=== PATIENT | male | born 1960 | race Caucasian/White ===

== ENCOUNTER 2023-01-31 08:33 | Inpatient (IN) | payer OTHER, SELFPAY ==
[2023-01-31] VITALS (25 sets, daily range): BP systolic 132–168; BP diastolic 78–136; PULSE 55–121; RESP 17–32; TEMP 36.6; O2SAT 81–100; BMI 17.6
--- NOTE | 2023-01-31 08:48 | XR_ITS ---
The [address] [address] Patient Name: BROOKLYNN STEPHEN MRN: [id number] date: 1960 Sex: M Assigned Patient Location: ER Current Patient Location: Accession/Order Number: [id number] Exam Date: 01/31/2023 08:52 Report Date: 01/31/2023 09:08 At the request of: MARCEL ARDON Procedure: XR chest 1V EXAMINATION: CHEST RADIOGRAPH (PORTABLE SINGLE VIEW AP) Exam Date/Time: 01/31/2023 8:52 AM EDT Clinical History: dyspnea Comparison: 12/08/2022 RESULT: Lines, tubes, and devices: None. Lungs and pleura: Patchy airspace opacities in the lung bases bilaterally, consistent with atelectasis or pneumonic infiltrates. No pneumothorax. No pleural effusion. Cardiomediastinal silhouette: Stable cardiomediastinal silhouette. No significant atherosclerotic calcification. Other: No acute osseous process. IMPRESSION: Bibasilar airspace opacities, concerning for atelectasis or pneumonic infiltrates. Electronically authenticated by: MARCELA ORTEGA Date: 01/31/2023 09:08
--- NOTE | 2023-01-31 08:48 | ECG_ITS ---
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
[2023-01-31] MEDS: IPRATROPIUM/ALBUTEROL SULFATE 3 ML AMPUL.NEB IH ×3 (08:59→22:29)
--- NOTE | 2023-01-31 09:04 | ED.SOB1 ---
HPI - SOB/Dyspnea General Chief Complaint: Shortness of Breath/Dyspnea Stated Complaint: SHORTNESS OF BREATH Time Seen by Provider: 01/31/23 08:41 Source: patient Source comment: SOB a few days / no chest pain / trying to get pop at machine / trouble talking to staff due to trying to breath Mode of arrival: Wheelchair Limitations: physical limitation History of Present Illness HPI Narrative: patient very limited historian due to dyspnea. However subsequently admitted having shortness of breath for several days getting worse recently. He's had increased sputum production. Does not admit a previous history of chronic obstructive pulmonary disease but is a heavy smoker. Was seen immediately upon arrival here. Initial pulse ox was in the high 80s to mid 90s. Initially did not want to receive oxygen but subsequently did accept that recommendation. Does not have any chest pain or heaviness or discomfort. Does continue to use tobacco products on a regular basis. MD elicited complaint: shortness of breath and cough Related Data Home oxygen amount: none Home Medications Medication Instructions Recorded Confirmed amlodipine 10 mg-benazepril 20 mg 1 cap PO DAILY 01/31/23 01/31/23 capsule ammonium lactate 12 % lotion 1 applic topical .twice a day 01/31/23 01/31/23 aspirin 81 mg tablet,delayed 81 mg PO DAILY 01/31/23 01/31/23 release atorvastatin 40 mg tablet 40 mg PO .evening 01/31/23 01/31/23 escitalopram oxalate 20 mg tablet 20 mg PO DAILY 01/31/23 01/31/23 glipizide 10 mg tablet 10 mg PO DAILY 01/31/23 01/31/23 hydroxyzine HCl 25 mg tablet 25 mg PO DAILY 01/31/23 01/31/23 insulin glargine 100 unit/mL 30 unit subcut BID 01/31/23 01/31/23 subcutaneous solution (Lantus U-100 Insulin) lisinopril 2.5 mg tablet 2.5 mg PO DAILY 01/31/23 01/31/23 quetiapine 50 mg tablet 50 mg PO .hs 01/31/23 01/31/23 tamsulosin 0.4 mg capsule 0.4 mg PO DAILY 01/31/23 01/31/23 tiotropium bromide 2.5 2 puff inhalation Q24H 01/31/23 01/31/23 mcg/actuation mist for inhalation (Spiriva Respimat) Allergies Allergy/AdvReac Type Severity Reaction Status Date / Time No Known Allergies AdvReac Mild Verified 01/31/23 08:44 PFSH PFSH Social History Smoking status: Former smoker Exam Narrative Exam Narrative: very dyspneic. Oximetry as noted above. Was seen immediately by myself was nebulizers ordered immediately as well as intravenous medication imaging and laboratory studies. Constitutional Vital Signs - 24 hr 01/31/23 08:37 01/31/23 09:24 01/31/23 08:40 Temperature 97.9 F Pulse Rate 98 H Pulse Rate [Monitor] 101 H Respiratory Rate 24 18 Blood Pressure Blood Pressure [Right Arm] 153/106 H Pulse Oximetry 95 98 89 L Oxygen Delivery Method Room Air Nasal Cannula Oxygen Delivery Flow Rate 3 01/31/23 08:39 01/31/23 08:39 01/31/23 08:50 Temperature Pulse Rate 104 H 101 H 96 H Pulse Rate [Monitor] Respiratory Rate 32 H 29 H 26 H Blood Pressure 153/106 H 165/136 H Blood Pressure [Right Arm] Pulse Oximetry 96 94 L 100 Oxygen Delivery Method Oxygen Delivery Flow Rate 01/31/23 09:07 01/31/23 09:30 01/31/23 09:40 Temperature Pulse Rate 99 H 97 H 100 H Pulse Rate [Monitor] Respiratory Rate 20 21 22 Blood Pressure 150/106 H 168/111 H Blood Pressure [Right Arm] Pulse Oximetry 99 98 Oxygen Delivery Method Oxygen Delivery Flow Rate Documenting provider has reviewed patient's vital signs: yes Common normals: oriented x3 General appearance: anxious Nutritional appearance: cachectic Neck & C-Spine Common normals: no lymphadenopathy and supple Chest Common normals: inspection of chest normal Chest: symmetrical chest wall rise Respiratory Effort & inspection: tachypneic, respiratory distress, labored, audible wheezes and prolonged expiratory phase; no tracheal deviation and no tripod positioning Course Vital Signs Vital signs: Vital Signs Temperature 97.9 F 01/31/23 08:37 Pulse Rate 101 H 01/31/23 08:37 Respiratory Rate 24 01/31/23 08:37 Blood Pressure 153/106 H 01/31/23 08:37 Pulse Oximetry 95 01/31/23 08:37 Oxygen Delivery Method Room Air 01/31/23 08:37 Temperature 97.9 F 01/31/23 08:37 Pulse Rate 100 H 01/31/23 09:40 Respiratory Rate 22 01/31/23 09:40 Blood Pressure 168/111 H 01/31/23 09:30 Pulse Oximetry 98 01/31/23 09:30 Oxygen Delivery Method Nasal Cannula 01/31/23 08:40 Oxygen Delivery Flow Rate 3 01/31/23 08:40 MDM - SOB/Dyspnea MDM Narrative Medical decision making narrative: patient presents is a poor historian acutely dyspneic with several day history of illness. Chest x-ray and labs suggest pneumonic process. Responded to aggressive bronchodilator therapy intravenous steroids supplemental oxygen. Did not take his insulin or meds this morning and possibly for several days but did not arrivalsothishadtobeacquiredfromthepharmacy.Wasgiven saline bolus andmorning dose of insulin spoke with on-call hospitalist who will assume care. Was given Rocephin and Zithromax in the Emergency Room Differential Diagnosis Differential diagnosis: Likely acute exacerbation of chronic obstructive airways disease and community acquired pneumonia Lab Data Labs: Lab Results 01/31/23 01/31/23 Range/Units 09:18 09:25 WBC 16.7 H (4.0-11.0) 10^3/uL RBC 5.47 (4.70-6.10) 10^6/uL Hgb 16.9 (14.0-18.0) g/dL Hct 47.0 (42.0-54.0) % MCV 85.9 (80.0-94.0) fL MCH 30.9 (25.9-34.0) pg MCHC 36.0 H (29.9-35.2) g/dL RDW 13.2 (11.0-15.0) % Plt Count 381 (150-450) 10^3/uL MPV 11.0 (9.5-13.5) fL Neut % (Auto) 74.4 (43.0-75.0) % Lymph % (Auto) 18.4 L (20.5-60.0) % [place] % (Auto) 5.6 (1.7-12.0) % Eos % (Auto) 0.4 L (0.9-7.0) % Baso % (Auto) 0.5 (0.2-2.0) % Neut # (Auto) 12.4 H (1.4-6.5) 10^3/uL Lymph # (Auto) 3.1 (1.2-3.8) 10^3/uL [place] # (Auto) 0.9 H (0.3-0.8) 10^3/uL Eos # (Auto) 0.1 (0.0-0.7) 10^3/uL Baso # (Auto) 0.1 (0.0-0.1) 10^3/uL Abs Immat Gran (auto) 0.12 H (0.00-0.03) 10^3/uL Imm/Tot Granulo (auto) 0.7 H (0.0-0.5) % D-Dimer 0.58 (<=0.59) mg/L FEU Puncture Site Rr ABG pH 7.429 (7.350-7.450) ABG pCO2 36.8 (35.0-45.0) mmHg ABG pO2 86.0 (80.0-100.0) mmHg ABG HCO3 24.3 (22.0-26.0) mmol/L ABG O2 Saturation 97.4 % ABG Base Excess 0 (-2.0-2.0) mmol/L [place] Test Positive (POSITIVE) O2 Liters/Min 4 Sodium 122 L* (136-145) mmol/L Potassium 4.8 (3.5-5.1) mmol/L Chloride 88 L (98-107) mmol/L Carbon Dioxide 27.3 (21.0-32.0) mmol/L Anion Gap 11.5 BUN 27.0 H (7.0-18.0) mg/dL Creatinine 1.03 (0.70-1.30) mg/dL Est GFR ( Amer) >60 (>=60) Est GFR (Non-Af Amer) >60 (>=60) BUN/Creatinine Ratio 26.2 Glucose 791 H* (74-106) mg/dL Calcium 10.6 H (8.5-10.1) mg/dL Total Bilirubin 0.3 (0.2-1.0) mg/dL AST 13 L (15-37) U/L ALT 22 (16-63) U/L Alkaline Phosphatase 419 H (46-116) U/L Troponin I High Sens 6.6 (4.0-76.1) pg/mL Total Protein 8.0 (6.4-8.2) g/dL Albumin 2.9 L (3.4-5.0) g/dL Globulin 5.1 g/dL Albumin/Globulin Ratio 0.6 ABG Data ABG results: discussed with the on-call physician ECG Data Attestation: I personally reviewed and interpreted this ECG as follows: ECG interpretation date: 01/31/23 Interpretation: sinus tachycardia with probable right atrial hypertrophy. No ST segment elevation or malignant arrhythmia Discharge Plan Discharge Chief Complaint: Shortness of Breath/Dyspnea Clinical Impression: Acute infective exacerbation of chronic obstructive airway disease, Community acquired pneumonia Patient Disposition: Admitted As Inpatient Time of Disposition Decision: 10:39 Prescriptions / Home Meds: No Action aspirin 81 mg tablet,delayed release (DR/EC) 81 mg PO DAILY amlodipine-benazepril 10-20 mg capsule 1 cap PO DAILY ammonium lactate 12 % lotion 1 applic TOPICAL .twice a day atorvastatin 40 mg tablet 40 mg PO .evening glipizide 10 mg tablet 10 mg PO DAILY hydroxyzine HCl 25 mg tablet 25 mg PO DAILY lisinopril 2.5 mg tablet 2.5 mg PO DAILY quetiapine 50 mg tablet 50 mg PO .hs tamsulosin 0.4 mg capsule 0.4 mg PO DAILY Spiriva Respimat 2.5 mcg/actuation mist 2 puff INHALATION Q24H insulin glargine [Lantus U-100 Insulin] 100 unit/mL solution 30 unit SUBCUT BID escitalopram oxalate 20 mg tablet 20 mg PO DAILY Referrals: Nader Darden MD [Primary Care Provider] - 1 week
[2023-01-31] MEDS: METHYLPREDNISOLONE SOD SUCC PF 125 MG/2 ML VIAL IVP (09:14)
[2023-01-31 09:23] LABS: ABG PCO2 36.8 mmHg (35.0-45.0); Allen Test POSITIVE (POSITIVE); Base Excess ABG 0 mmol/L (-2.0-2.0); HCO3 ABG 24.3 mmol/L (22.0-26.0); Oxygen Saturation ABG 97.4 %; pH ABG 7.429 (7.350-7.450)
[2023-01-31 09:24] LABS: Liters per Minute 4; O2 Mode Nasal Cannula; Puncture Site RR
[2023-01-31] MEDS: ALBUTEROL SULFATE 2.5 MG/3 ML VIAL NEB IH (09:24)
--- NOTE | 2023-01-31 09:32 | PC.NURSE ---
Unable to answer most questions due to breathing.
[2023-01-31 09:46] LABS: Basophils Absolute Auto 0.1 10^3/uL (0.0-0.1); Basophils Percent Auto 0.5 % (0.2-2.0); Eosinophils Absolute Auto 0.1 10^3/uL (0.0-0.7); Eosinophils Percent Auto 0.4 % (0.9-7.0); Hemoglobin 16.9 g/dL (14.0-18.0); Immature Granulocytes Abs Auto 0.12 10^3/uL (0.00-0.03); Immature Granulocytes Pct Auto 0.7 % (0.0-0.5); Lymphocytes Absolute Auto 3.1 10^3/uL (1.2-3.8); Lymphocytes Percent Auto 18.4 % (20.5-60.0); Mean Corpuscular Hemoglobin 30.9 pg (25.9-34.0); Mean Corpuscular Volume 85.9 fL (80.0-94.0); Monocytes Absolute Auto 0.9 10^3/uL (0.3-0.8); Monocytes Percent Auto 5.6 % (1.7-12.0); Neutrophils Absolute Auto 12.4 10^3/uL (1.4-6.5); Neutrophils Percent Auto 74.4 % (43.0-75.0); Platelet Count 381 10^3/uL (150-450); Red Blood Count 5.47 10^6/uL (4.70-6.10); Red Cell Distribution Width 13.2 % (11.0-15.0); White Blood Count 16.7 10^3/uL (4.0-11.0)
[2023-01-31 09:53] LABS: Alanine Aminotransferase 22 U/L (16-63); Albumin Globulin Ratio 0.6; Albumin Level 2.9 g/dL (3.4-5.0); Alkaline Phosphatase 419 U/L (46-116); Anion Gap 11.5; Aspartate Amino Transferase 13 U/L (15-37); BUN Creatinine Ratio 26.2; Bilirubin Total 0.3 mg/dL (0.2-1.0); Calcium 10.6 mg/dL (8.5-10.1); Carbon Dioxide 27.3 mmol/L (21.0-32.0); Chloride 88 mmol/L (98-107); Estimated GFR (African America >60 (>=60); Estimated GFR (Non-African Ame >60 (>=60); Globulin 5.1 g/dL; Potassium 4.8 mmol/L (3.5-5.1); Troponin I High Sensitivity 6.6 pg/mL (4.0-76.1)
[2023-01-31 09:55] LABS: Glucose 791 mg/dL (74-106); Sodium 122 mmol/L (136-145)
[2023-01-31 09:56] LABS: D Dimer 0.58 mg/L FEU (<=0.59)
[2023-01-31] MEDS: CEFTRIAXONE 1,000 MG in 0.9 % SODIUM CHLORIDE 50 ML 100 MG IV ×2 (10:05→23:37)
[2023-01-31] MEDS: 0.9 % SODIUM CHLORIDE 1,000 ML 999 ML IV (10:37)
[2023-01-31] MEDS: AZITHROMYCIN 250 MG in 0.9 % SODIUM CHLORIDE 250 ML IV (10:39)
[2023-01-31] MEDS: INSULIN DETEMIR 300 UNIT/3 ML INSULN.PEN 30 UNIT SUBQ ×2 (11:05→23:43)
[2023-01-31] MEDS: LACTATED RINGER'S SOLUTION 1,000 ML 125 ML IV ×2 (12:33→23:40)
[2023-01-31] MEDS: INSULIN REGULAR 300 UNITS/3 ML 10 UNIT INJ (12:34)
[2023-01-31] MEDS: NICOTINE 21 MG PATCH.TD24 TD (12:43)
[2023-01-31 13:44] LABS: Glucose 595 mg/dL (74-106)
--- NOTE | 2023-01-31 13:57 | P.HP_ITS ---
H&P: HPI History of Present Illness Chief complaint: SHORTNESS OF BREATH Narrative: patient is a 62-year-old male with past medical history of insulin- dependent type 2 diabetes, hyperlipidemia, chronic obstructive pulmonary disease, tobacco abuse who presented to the Emergency Room with a several day h istory of increased shortness of breath. He had not taken any of his home medications prior to admission, he still continues to smoke about a pack per day. Patient had elevated white count, and bilateral infiltrates on chest x-ray. Patient was admitted for chronic obstructive pulmonary disease exacerbation and community-acquired pneumonia. At the time of admission patient states he is tired, but shortness of breath has improved. Denies any fevers chills chest pain nausea vomiting or diarrhea. Patient also denies any sick contacts Review of Systems ROS Narrative ROS: a complete review of systems were reviewed with patient and are positive as below or listed in History of Chief Complaint. General: no fever, chills, night sweats Head: no headache, trauma, visual changes, nausea or vomiting Skin: no reported rashes, itching or sores Eyes: no blurriness of vision Ears: no reported hearing loss, vertigo, earache, or tinnitus Throat: no sore throat, hoarseness, swelling of neck, or tongue pain Heart: no chest pain Lungs: shortness of breath, no cough GI: no diarrhea or vomiting/nausea Urinary: no urinary urgency, frequency or pain Neuro: no numbness or tingling HEM: no bleeding issues or bruising ENDO: no thyroid problems Psych: no anxiety or depression PFSH PFS Medical History Social History Smoking status: Former smoker Meds Home Medications and Allergies Home Medications Medication Instructions Recorded Confirmed Type amlodipine 10 mg-benazepril 20 mg 1 cap PO DAILY 01/31/23 01/31/23 History capsule ammonium lactate 12 % lotion 1 applic topical .twice a day 01/31/23 01/31/23 History aspirin 81 mg tablet,delayed 81 mg PO DAILY 01/31/23 01/31/23 History release atorvastatin 40 mg tablet 40 mg PO .evening 01/31/23 01/31/23 History escitalopram oxalate 20 mg tablet 20 mg PO DAILY 01/31/23 01/31/23 History glipizide 10 mg tablet 10 mg PO DAILY 01/31/23 01/31/23 History hydroxyzine HCl 25 mg tablet 25 mg PO DAILY 01/31/23 01/31/23 History insulin glargine 100 unit/mL 30 unit subcut BID 01/31/23 01/31/23 History subcutaneous solution (Lantus U-100 Insulin) lisinopril 2.5 mg tablet 2.5 mg PO DAILY 01/31/23 01/31/23 History quetiapine 50 mg tablet 50 mg PO .hs 01/31/23 01/31/23 History tamsulosin 0.4 mg capsule 0.4 mg PO DAILY 01/31/23 01/31/23 History tiotropium bromide 2.5 2 puff inhalation Q24H 01/31/23 01/31/23 History mcg/actuation mist for inhalation (Spiriva Respimat) Allergies Allergy/AdvReac Type Severity Reaction Status Date / Time No Known Allergies AdvReac Mild Verified 01/31/23 08:44 Exam Narrative Exam Narrative: General: Patient is alert, and oriented to person, place and time with normal affect, cachexia noted Skin: no visible rashes, or ulcers Head: atraumatic, acephalic Eyes: PERRLA, no nystagmus present, conjunctiva clear, no scleral icterus Ears: normal gross auditory acuity Nose: symmetric, no discharge, no maxillary or frontal sinus tenderness Mouth/Throat: no erythema, exudate, or tonsillar enlargement, no dentition Neck: no masses palpated, normal thyroid, no JVD or audible carotid bruits Heart: Normal rate and rhythm, no murmurs/rubs/gallops Lungs: no audible wheezes, crackles and normal breath sounds all lung wilson Abdomen: Normal audible bowel sounds, no distension, No palpable masses, no organomegaly, no rebound/guarding/ or rigidity Musculoskeletal: muscle atrophy noted, ROM is limited due to being in hospital bed, no swelling bilateral lower extremities Vascular: Normal carotid, radial, femoral, posterior tibial, and dorsalis pedis pulses Lymph: no supraclavicular, axillary, or anterior/posterior cervical adenopathy Neuro: CN II-X grossly intact, normal sensation upper and lower extremities Constitutional Vital Signs - 24 hr 01/31/23 08:37 01/31/23 09:24 01/31/23 08:40 Temperature 97.9 F Pulse Rate 98 H Pulse Rate [Monitor] 101 H Respiratory Rate 24 18 Blood Pressure Blood Pressure [Right Arm] 153/106 H Pulse Oximetry 95 98 89 L Oxygen Delivery Method Room Air Nasal Cannula Oxygen Delivery Flow Rate 3 01/31/23 08:39 01/31/23 08:39 01/31/23 08:50 Temperature Pulse Rate 104 H 101 H 96 H Pulse Rate [Monitor] Respiratory Rate 32 H 29 H 26 H Blood Pressure 153/106 H 165/136 H Blood Pressure [Right Arm] Pulse Oximetry 96 94 L 100 Oxygen Delivery Method Oxygen Delivery Flow Rate 01/31/23 09:07 01/31/23 09:30 01/31/23 09:40 Temperature Pulse Rate 99 H 97 H 100 H Pulse Rate [Monitor] Respiratory Rate 20 21 22 Blood Pressure 150/106 H 168/111 H Blood Pressure [Right Arm] Pulse Oximetry 99 98 Oxygen Delivery Method Oxygen Delivery Flow Rate 01/31/23 09:30 01/31/23 10:00 01/31/23 10:30 Temperature Pulse Rate 95 H 90 90 Pulse Rate [Monitor] Respiratory Rate 21 23 Blood Pressure 168/111 H 132/90 H 142/95 H Blood Pressure [Right Arm] Pulse Oximetry 98 99 99 Oxygen Delivery Method Oxygen Delivery Flow Rate 01/31/23 10:30 01/31/23 11:00 01/31/23 11:00 Temperature Pulse Rate 89 96 H 88 Pulse Rate [Monitor] Respiratory Rate 25 H 23 21 Blood Pressure 142/95 H 146/78 H 146/78 H Blood Pressure [Right Arm] Pulse Oximetry 99 98 97 Oxygen Delivery Method Oxygen Delivery Flow Rate 01/31/23 11:30 01/31/23 11:39 01/31/23 12:19 Temperature 97.8 F Pulse Rate 84 55 L 55 L Pulse Rate [Monitor] Respiratory Rate 17 18 Blood Pressure 143/92 H Blood Pressure [Right Arm] 152/102 H Pulse Oximetry 96 93 L Oxygen Delivery Method Room Air Oxygen Delivery Flow Rate 01/31/23 12:19 Temperature Pulse Rate Pulse Rate [Monitor] 56 L Respiratory Rate Blood Pressure Blood Pressure [Right Arm] Pulse Oximetry Oxygen Delivery Method Oxygen Delivery Flow Rate Results Labs Labs: Short CBC 01/31/23 Range/Units 09:25 WBC 16.7 H (4.0-11.0) 10^3/uL Hgb 16.9 (14.0-18.0) g/dL Hct 47.0 (42.0-54.0) % Plt Count 381 (150-450) 10^3/uL BMP 01/31/23 01/31/23 09:25 13:13 Sodium 122 L* Potassium 4.8 Chloride 88 L Carbon Dioxide 27.3 BUN 27.0 H Creatinine 1.03 Glucose 791 H* 595 H* Calcium 10.6 H Liver Function 01/31/23 Range/Units 09:25 Total Bilirubin 0.3 (0.2-1.0) mg/dL AST 13 L (15-37) U/L ALT 22 (16-63) U/L Alkaline Phosphatase 419 H (46-116) U/L Albumin 2.9 L (3.4-5.0) g/dL ABG ABG results: 01/31/23 09:18 ABG pH 7.429 ABG pCO2 36.8 ABG pO2 86.0 ABG HCO3 24.3 ABG O2 Saturation 97.4 ABG Base Excess 0 Assessment and Plan Assessment and Plan (1) Community acquired pneumonia: Assessment and Plan: start azithromycin and Rocephin, elevated white blood cell count of 16.7.order placed for respiratory viral culture (2) Acute infective exacerbation of chronic obstructive airway disease: Assessment and Plan: we'll place on Solu-Medrol, incentive spirometer, DuoNeb scheduled. (3) Insulin dependent type 2 diabetes mellitus, uncontrolled: Assessment and Plan: resume Levemir thirty units twice a day, sliding scale insulin, and given ten units of regular insulin IV normal anion gap sugar was seven hundred now five hundred continue to monitor also due to steroids. recheck ha1c in the morning (4) Hyponatremia: Assessment and Plan: monitor, start LR @125 and should also correct with glucose (5) Hypertension: Assessment and Plan: we'll continue home medications and use hydroxyzine as needed (6) Hyperlipidemia associated with type 2 diabetes mellitus: Assessment and Plan: continue atorvastatin (7) Insomnia disorder: Assessment and Plan: continue Seroquel and hydroxyzine (8) Tobacco abuse: Assessment and Plan: will provide nicotine patch Plan patient is a full code Lovenox for deep vein thrombosis prophylaxis Patient is inpatient status and is expected to stay more than two days
[2023-01-31] MEDS: METHYLPREDNISOLONE SOD SUCC PF 40 MG/ML VIAL IVP ×2 (14:16→23:39)
[2023-01-31 14:39] LABS: Adenovirus NOT DETECTED (NOT DETECTE); Bordetella parapertussis NOT DETECTED (NOT DETECTE); Coronavirus 229E NOT DETECTED (NOT DETECTE); Coronavirus HKU1 NOT DETECTED (NOT DETECTE); Coronavirus NL63 NOT DETECTED (NOT DETECTE); Coronavirus OC43 NOT DETECTED (NOT DETECTE); Human Metapneumovirus NOT DETECTED (NOT DETECTE); Human Rhinovirus/Enterovirus NOT DETECTED (NOT DETECTE); Influenza A NOT DETECTED (NOT DETECTE); Influenza B NOT DETECTED (NOT DETECTE); Mycoplasma pneumoniae NOT DETECTED (NOT DETECTE); Parainfluenza Virus 1 NOT DETECTED (NOT DETECTE); Parainfluenza Virus 2 NOT DETECTED (NOT DETECTE); Parainfluenza Virus 3 NOT DETECTED (NOT DETECTE); Parainfluenza Virus 4 NOT DETECTED (NOT DETECTE); Respiratory Syncytial Virus NOT DETECTED (NOT DETECTE); SARS-CoV-2 NOT DETECTED (NOT DETECTE)
[2023-01-31 15:08] LABS: Glucometer 538 mg/dL (74-106)
[2023-01-31] MEDS: INSULIN ASPART 300 UNIT/3 ML PEN SUBQ ×2 (15:48→23:42)
[2023-01-31 16:21] LABS: Amphetamine Screen Urine NEGATIVE (NEGATIVE); Barbiturates Screen Urine NEGATIVE (NEGATIVE); Benzodiazepines Screen Urine NEGATIVE (NEGATIVE); Buprenorphine Screen Urine NEGATIVE (NEGATIVE); Cannabinoid Screen Urine NEGATIVE (NEGATIVE); Cocaine Screen Urine NEGATIVE (NEGATIVE); Methadone Screen Urine NEGATIVE (NEGATIVE); Methamphetamines Screen Urine NEGATIVE (NEGATIVE); Opiate Screen Urine NEGATIVE (NEGATIVE); Oxycodone Screen Urine NEGATIVE (NEGATIVE); Phencyclidine Screen Urine NEGATIVE (NEGATIVE); Tricyclic Antidepressant Urine NEGATIVE (NEGATIVE)
[2023-01-31 17:25] LABS: Glucometer 463 mg/dL (74-106)
[2023-01-31 19:59] LABS: Glucometer 533 mg/dL (74-106)
[2023-01-31 23:12] LABS: Glucose 601 mg/dL (74-106)
[2023-01-31] MEDS: ATORVASTATIN CALCIUM 40 MG TABLET PO (23:38)
[2023-01-31] MEDS: QUETIAPINE FUMARATE 25 MG TABLET 50 MG PO (23:39)
[2023-02-01] VITALS (13 sets, daily range): BP systolic 120–152; BP diastolic 74–89; PULSE 79–94; RESP 16–18; TEMP 36.3–36.7; O2SAT 91–98
[2023-02-01] MEDS: IPRATROPIUM/ALBUTEROL SULFATE 3 ML AMPUL.NEB IH ×3 (04:12→17:08)
--- NOTE | 2023-02-01 05:28 | PC.NURSE ---
Pt with difficult venous access. At beginning of shift (01/31/2023 @ 1900), patient had a #22 armond IV in his right forearm. IV site was patent and dressing was noted to be clean, dry, and intact. Pt with continuous IVF @ 100 ml/hr. IV site and line inspected hourly. Site remained patent, clean, dry, and intact until 0245 02/01/2023 when patient called RN to room due to IV removal by patient while sleeping. Multiple attempts made to restart IV. [employer] attempted with vein light and ER nurse, Salma, attempted with ultrasound machine. Peripheral access attempted in total x4 RN's. Dr. Najera contacted for PICC line orders. Per Dr. Najera, it is okay to place PICC. RN to report to day shift physician for actual order. IVF and IVPB on hold at this time.
[2023-02-01 05:40] LABS: Basophils Percent Auto 0.2 % (0.2-2.0); Hematocrit 41.3 % (42.0-54.0); Hemoglobin 14.7 g/dL (14.0-18.0); Immature Granulocytes Abs Auto 0.13 10^3/uL (0.00-0.03); Immature Granulocytes Pct Auto 0.8 % (0.0-0.5); Lymphocytes Absolute Auto 0.9 10^3/uL (1.2-3.8); Lymphocytes Percent Auto 5.7 % (20.5-60.0); Mean Corpuscular HGB Conc 35.6 g/dL (29.9-35.2); Mean Corpuscular Hemoglobin 30.9 pg (25.9-34.0); Mean Corpuscular Volume 86.8 fL (80.0-94.0); Mean Platelet Volume 10.4 fL (9.5-13.5); Monocytes Absolute Auto 0.5 10^3/uL (0.3-0.8); Neutrophils Absolute Auto 14.5 10^3/uL (1.4-6.5); Neutrophils Percent Auto 90.3 % (43.0-75.0); Platelet Count 328 10^3/uL (150-450); Red Blood Count 4.76 10^6/uL (4.70-6.10); Red Cell Distribution Width 13.2 % (11.0-15.0)
[2023-02-01 05:55] LABS: Alanine Aminotransferase 15 U/L (16-63); Albumin Globulin Ratio 0.6; Albumin Level 2.5 g/dL (3.4-5.0); Alkaline Phosphatase 317 U/L (46-116); Aspartate Amino Transferase 6 U/L (15-37); BUN Creatinine Ratio 34.2; Bilirubin Total 0.2 mg/dL (0.2-1.0); Calcium 10.1 mg/dL (8.5-10.1); Carbon Dioxide 25.8 mmol/L (21.0-32.0); Chloride 92 mmol/L (98-107); Estimated GFR (African America >60 (>=60); Estimated GFR (Non-African Ame >60 (>=60); Globulin 4.2 g/dL; Potassium 4.8 mmol/L (3.5-5.1); Sodium 125 mmol/L (136-145); Total Protein 6.7 g/dL (6.4-8.2)
[2023-02-01 06:27] LABS: Glucose 606 mg/dL (74-106)
[2023-02-01] MEDS: INSULIN ASPART 300 UNIT/3 ML PEN SUBQ ×4 (08:24→21:12)
[2023-02-01] MEDS: INSULIN DETEMIR 300 UNIT/3 ML INSULN.PEN 30 UNIT SUBQ (08:25)
[2023-02-01] MEDS: ESCITALOPRAM 10 MG TABLET 20 MG PO (10:35)
[2023-02-01] MEDS: HYDROXYZINE HCL 25 MG TABLET PO (10:35)
[2023-02-01] MEDS: TAMSULOSIN HCL 0.4 MG CAPSULE PO (10:36)
[2023-02-01] MEDS: LISINOPRIL 5 MG TABLET 2.5 MG PO (10:36)
[2023-02-01 10:37] LABS: Estimated Average Glucose 355 mg/dL
[2023-02-01] MEDS: ASPIRIN 81 MG TABLET.DR PO (10:37)
[2023-02-01 11:43] LABS: Basophils Absolute Auto 0.1 10^3/uL (0.0-0.1); Basophils Percent Auto 0.2 % (0.2-2.0); Hematocrit 42.7 % (42.0-54.0); Hemoglobin 15.3 g/dL (14.0-18.0); Immature Granulocytes Abs Auto 0.15 10^3/uL (0.00-0.03); Immature Granulocytes Pct Auto 0.7 % (0.0-0.5); Lymphocytes Absolute Auto 1.3 10^3/uL (1.2-3.8); Lymphocytes Percent Auto 6.5 % (20.5-60.0); Mean Corpuscular HGB Conc 35.8 g/dL (29.9-35.2); Mean Corpuscular Hemoglobin 30.8 pg (25.9-34.0); Mean Corpuscular Volume 85.9 fL (80.0-94.0); Mean Platelet Volume 10.4 fL (9.5-13.5); Monocytes Absolute Auto 0.6 10^3/uL (0.3-0.8); Neutrophils Absolute Auto 17.9 10^3/uL (1.4-6.5); Neutrophils Percent Auto 89.6 % (43.0-75.0); Platelet Count 363 10^3/uL (150-450); Red Blood Count 4.97 10^6/uL (4.70-6.10); Red Cell Distribution Width 13.3 % (11.0-15.0)
[2023-02-01 12:10] LABS: Alanine Aminotransferase 18 U/L (16-63); Albumin Globulin Ratio 0.5; Albumin Level 2.5 g/dL (3.4-5.0); Alkaline Phosphatase 330 U/L (46-116); Anion Gap 13.5; Aspartate Amino Transferase 10 U/L (15-37); BUN Creatinine Ratio 29.4; Bilirubin Total 0.2 mg/dL (0.2-1.0); Calcium 10.2 mg/dL (8.5-10.1); Carbon Dioxide 24.8 mmol/L (21.0-32.0); Chloride 96 mmol/L (98-107); Estimated GFR (African America >60 (>=60); Estimated GFR (Non-African Ame >60 (>=60); Globulin 4.6 g/dL; Potassium 4.3 mmol/L (3.5-5.1); Sodium 130 mmol/L (136-145); Total Protein 7.1 g/dL (6.4-8.2)
[2023-02-01 12:11] LABS: Glucose 526 mg/dL (74-106)
--- NOTE | 2023-02-01 13:29 | P.PN_ITS ---
Progress Note: Subjective Subjective Interval history: patient is a 62-year-old male with past medical history of insulin- dependent type 2 diabetes, hyperlipidemia, chronic obstructive pulmonary disease, tobacco abuse who presented to the Emergency Room with a several day history of increased shortness of breath. He had not taken any of his home medications prior to admission, he still continues to smoke about a pack per day. Patient had elevated white count, and bilateral infiltrates on chest x-ray. Patient was admitted for chronic obstructive pulmonary disease exacerbation and community-acquired pneumonia. At the time of admission patient states he is tired, but shortness of breath has improved. Denies any fevers chills chest pain nausea vomiting or diarrhea. Patient also denies any sick contacts. This morning reports he has been resting well, no overnight events, up to the restroom witho ut issues. Exam Narrative Exam Narrative: General: Patient is alert, and oriented to person, place and time with normal affect, cachexia noted Skin: no visible rashes, or ulcers Head: atraumatic, acephalic Eyes: PERRLA, no nystagmus present, conjunctiva clear, no scleral icterus Heart: Normal rate and rhythm, no murmurs/rubs/gallops Lungs: no audible wheezes, crackles and normal breath sounds all lung wilson Abdomen: Normal audible bowel sounds, no distension, No palpable masses, no organomegaly, no rebound/guarding/ or rigidity Musculoskeletal: muscle atrophy noted, ROM is limited due to being in hospital bed, no swelling bilateral lower extremities Vascular: Normal carotid, radial, femoral, posterior tibial, and dorsalis pedis pulses Lymph: no supraclavicular, axillary, or anterior/posterior cervical adenopathy Neuro: CN II-X grossly intact, normal sensation upper and lower extremities Constitutional Vital Signs - 24 hr 01/31/23 15:08 01/31/23 15:08 01/31/23 16:10 Temperature Pulse Rate 58 L Pulse Rate [Monitor] 58 L 58 L Respiratory Rate 18 18 18 Blood Pressure Blood Pressure [Right Arm] 148/78 H Pulse Oximetry 92 L Oxygen Delivery Method Room Air 01/31/23 16:37 01/31/23 19:18 01/31/23 22:29 Temperature 98 F Pulse Rate 84 Pulse Rate [Monitor] Respiratory Rate 18 Blood Pressure 140/90 H Blood Pressure [Right Arm] Pulse Oximetry 94 L 93 L Oxygen Delivery Method Room Air Room Air 01/31/23 22:40 01/31/23 22:29 01/31/23 20:00 Temperature Pulse Rate 84 82 Pulse Rate [Monitor] 58 L Respiratory Rate 20 18 20 Blood Pressure Blood Pressure [Right Arm] Pulse Oximetry 96 93 L Oxygen Delivery Method Room Air Room Air 01/31/23 20:00 01/31/23 19:18 02/01/23 02:16 Temperature 98 F Pulse Rate Pulse Rate [Monitor] 58 L Respiratory Rate 20 Blood Pressure 140/90 H 137/89 H Blood Pressure [Right Arm] Pulse Oximetry Oxygen Delivery Method 02/01/23 04:12 02/01/23 00:00 02/01/23 04:00 Temperature Pulse Rate 84 Pulse Rate [Monitor] Respiratory Rate 18 18 18 Blood Pressure Blood Pressure [Right Arm] Pulse Oximetry 92 L Oxygen Delivery Method Room Air 02/01/23 02:16 02/01/23 07:48 02/01/23 07:48 Temperature Pulse Rate 94 H Pulse Rate [Monitor] Respiratory Rate 16 16 Blood Pressure 137/89 H Blood Pressure [Right Arm] 146/89 H Pulse Oximetry 94 L Oxygen Delivery Method Room Air 02/01/23 10:36 02/01/23 11:27 02/01/23 11:00 Temperature Pulse Rate Pulse Rate [Monitor] Respiratory Rate 16 Blood Pressure 148/79 H Blood Pressure [Right Arm] Pulse Oximetry 98 Oxygen Delivery Method Room Air 02/01/23 11:00 Temperature Pulse Rate 94 H Pulse Rate [Monitor] Respiratory Rate 16 Blood Pressure Blood Pressure [Right Arm] 138/78 H Pulse Oximetry 98 Oxygen Delivery Method Room Air Progress Note: Objective Labs Labs: Short CBC 02/01/23 02/01/23 Range/Units 05:26 11:29 WBC 16.0 H 20.0 H (4.0-11.0) 10^3/uL Hgb 14.7 15.3 (14.0-18.0) g/dL Hct 41.3 L 42.7 (42.0-54.0) % Plt Count 328 363 (150-450) 10^3/uL BMP 01/31/23 01/31/23 02/01/23 13:13 22:46 05:26 Sodium 125 L Potassium 4.8 Chloride 92 L Carbon Dioxide 25.8 BUN 27.0 H Creatinine 0.79 Glucose 595 H* 601 H* 606 H* Calcium 10.1 02/01/23 11:29 Sodium 130 L Potassium 4.3 Chloride 96 L Carbon Dioxide 24.8 BUN 25.0 H Creatinine 0.85 Glucose 526 H* Calcium 10.2 H Liver Function 02/01/23 02/01/23 Range/Units 05:26 11:29 Total Bilirubin 0.2 0.2 (0.2-1.0) mg/dL AST 6 L 10 L (15-37) U/L ALT 15 L 18 (16-63) U/L Alkaline Phosphatase 317 H 330 H (46-116) U/L Albumin 2.5 L 2.5 L (3.4-5.0) g/dL Progress Note: A&P Assessment and Plan (1) Community acquired pneumonia: Assessment and Plan: start azithromycin and Rocephin, elevated white blood cell count of 16.7.order placed for respiratory viral culture was negative; wbc's higher today but steroid induced, IV access lost so started on zithromax and augmentin (2) Acute infective exacerbation of chronic obstructive airway disease: Assessment and Plan: improved, stopped steroids due to elevated glucose, incentive spirometer, DuoNeb scheduled (3) Insulin dependent type 2 diabetes mellitus, uncontrolled: Assessment and Plan: resume Levemir thirty units twice a day increased to 40 BID, sliding scale insulin, and given ten units of regular insulin IV normal anion gap sugar 500 continue to monitor also due to steroids. recheck ha1c was 14 (4) Hyponatremia: Assessment and Plan: improving with IVF up to 130 (5) Hypertension: Assessment and Plan: stable on home meds (6) Hyperlipidemia associated with type 2 diabetes mellitus: Assessment and Plan: continue atorvastatin (7) Insomnia disorder: Assessment and Plan: continue Seroquel and hydroxyzine (8) Tobacco abuse: Assessment and Plan: nicotine patch Plan patient is a full code Lovenox for deep vein thrombosis prophylaxis Patient is inpatient status and is expected to stay more than two days, sugar still elevated and sodium still low
[2023-02-01] MEDS: LACTATED RINGER'S SOLUTION 1,000 ML 125 ML IV (18:04)
[2023-02-01 20:17] LABS: Glucometer 321 mg/dL (74-106)
[2023-02-01] MEDS: INSULIN DETEMIR 300 UNIT/3 ML INSULN.PEN 40 UNIT SUBQ (21:12)
[2023-02-01] MEDS: ATORVASTATIN CALCIUM 40 MG TABLET PO (21:13)
[2023-02-01] MEDS: QUETIAPINE FUMARATE 25 MG TABLET 50 MG PO (21:13)
[2023-02-02] MEDS: LACTATED RINGER'S SOLUTION 1,000 ML 125 ML IV ×2 (00:10→08:24)
[2023-02-02 00:18] LABS: Glucometer 61 mg/dL (74-106)
[2023-02-02 00:58] LABS: Glucometer 116 mg/dL (74-106)
[2023-02-02 04:28] VITALS: O2SAT 92
[2023-02-02 04:35] LABS: Basophils Absolute Auto 0.1 10^3/uL (0.0-0.1); Basophils Percent Auto 0.3 % (0.2-2.0); Eosinophils Absolute Auto 0.1 10^3/uL (0.0-0.7); Eosinophils Percent Auto 0.7 % (0.9-7.0); Hematocrit 36.8 % (42.0-54.0); Hemoglobin 13.2 g/dL (14.0-18.0); Immature Granulocytes Abs Auto 0.15 10^3/uL (0.00-0.03); Immature Granulocytes Pct Auto 0.8 % (0.0-0.5); Lymphocytes Absolute Auto 2.7 10^3/uL (1.2-3.8); Lymphocytes Percent Auto 14.7 % (20.5-60.0); Mean Corpuscular HGB Conc 35.9 g/dL (29.9-35.2); Mean Corpuscular Volume 86.4 fL (80.0-94.0); Mean Platelet Volume 10.7 fL (9.5-13.5); Monocytes Percent Auto 5.7 % (1.7-12.0); Neutrophils Percent Auto 77.8 % (43.0-75.0); Platelet Count 344 10^3/uL (150-450); Red Blood Count 4.26 10^6/uL (4.70-6.10); Red Cell Distribution Width 13.4 % (11.0-15.0)
[2023-02-02 04:51] LABS: Alanine Aminotransferase 18 U/L (16-63); Albumin Globulin Ratio 0.6; Albumin Level 2.2 g/dL (3.4-5.0); Alkaline Phosphatase 171 U/L (46-116); Anion Gap 9.6; Aspartate Amino Transferase 11 U/L (15-37); BUN Creatinine Ratio 36.4; Bilirubin Total 0.2 mg/dL (0.2-1.0); Calcium 9.7 mg/dL (8.5-10.1); Carbon Dioxide 27.6 mmol/L (21.0-32.0); Chloride 99 mmol/L (98-107); Estimated GFR (African America >60 (>=60); Estimated GFR (Non-African Ame >60 (>=60); Globulin 3.7 g/dL; Glucose 118 mg/dL (74-106); Potassium 4.2 mmol/L (3.5-5.1); Sodium 132 mmol/L (136-145); Total Protein 5.9 g/dL (6.4-8.2)
[2023-02-02 05:46] VITALS: BP 123/78; PULSE 80; RESP 20; TEMP 36.8; O2SAT 92
[2023-02-02] MEDS: TAMSULOSIN HCL 0.4 MG CAPSULE PO (08:24)
[2023-02-02] MEDS: HYDROXYZINE HCL 25 MG TABLET PO (08:24)
[2023-02-02] MEDS: ASPIRIN 81 MG TABLET.DR PO (08:24)
[2023-02-02] MEDS: NICOTINE 21 MG PATCH.TD24 TD (08:33)
[2023-02-02] MEDS: ENOXAPARIN SODIUM 40 MG/0.4 ML SYRINGE SUBQ (08:33)
[2023-02-02] MEDS: ESCITALOPRAM 10 MG TABLET 20 MG PO (08:33)
[2023-02-02] MEDS: LISINOPRIL 5 MG TABLET 2.5 MG PO (08:33)
[2023-02-02] MEDS: PANTOPRAZOLE SODIUM 40 MG VIAL IV (08:34)
[2023-02-02] MEDS: AZITHROMYCIN 250 MG TABLET PO (08:34)
[2023-02-02] MEDS: INSULIN DETEMIR 300 UNIT/3 ML INSULN.PEN 40 UNIT SUBQ (08:36)
--- NOTE | 2023-02-02 10:24 | SWNOTE1 ---
SW stopped in to talk with pt about transport and if he had a ride. SW did attempt to call sister, but her phone was off. Pt was able to provide to other numbers to call for a ride. JUAN spoke with Endy and he will be here in 20 minutes to get pt. JUAN notified nursing.
--- NOTE | 2023-02-02 10:50 | P.DS_ITS ---
DS: Providers Provider Date of admission: 01/31/23 10:37 Primary care physician: Shaikh Jian MD Admitting clinician: Nata Borges Attending physician on discharge: Nata Borges DS: Diagnosis Discharge Diagnosis (1) Community acquired pneumonia: Assessment and plan: start azithromycin and Rocephin, elevated white blood cell count of 16.7.order placed for respiratory viral culture was negative; wbc's decreasing at the time of discharge, will be discharged home on zithromax and augmentin (2) Acute infective exacerbation of chronic obstructive airway disease: Assessment and plan: improved, stopped steroids due to elevated glucose, incentive spirometer, DuoNeb scheduled, resume home inhaler at discharge (3) Insulin dependent type 2 diabetes mellitus, uncontrolled: Assessment and plan: resume Levemir thirty units twice a day increased to 40 BID, sliding scale insulin, and given ten units of regular insulin IV normal anion gap sugar 118 at discharge, ha1c was 14; discharge home on Levemir 35units BID resume orals. (4) Hyponatremia: Assessment and plan: improved with IVF, was 132 at discharge. (5) Hypertension: Assessment and plan: continue home meds (6) Hyperlipidemia associated with type 2 diabetes mellitus: Assessment and plan: continue atorvastatin (7) Insomnia disorder: Assessment and plan: continue home meds (8) Tobacco abuse: Assessment and plan: no desire to quit DS: Summary Time Spent with Patient Time attestation: Total time spent providing and/or coordinating discharge services: Quality: Stroke Symptom Onset Unknown: No Exam Constitutional Vital Signs - 24 hr 02/01/23 11:27 02/01/23 11:00 02/01/23 11:00 Temperature Pulse Rate 94 H Respiratory Rate 16 16 Blood Pressure [Left Arm] Blood Pressure [Right Arm] 138/78 H Pulse Oximetry 98 98 Oxygen Delivery Method Room Air Room Air 02/01/23 15:00 02/01/23 15:00 02/01/23 16:03 Temperature 97.3 F L Pulse Rate 94 H 79 Respiratory Rate 16 16 16 Blood Pressure [Left Arm] Blood Pressure [Right Arm] 152/75 H 123/79 H Pulse Oximetry 95 92 L Oxygen Delivery Method Room Air Room Air 02/01/23 17:09 02/01/23 21:08 02/01/23 22:11 Temperature 98.1 F Pulse Rate 85 Respiratory Rate 18 Blood Pressure [Left Arm] 120/74 H Blood Pressure [Right Arm] Pulse Oximetry 95 93 L 91 L Oxygen Delivery Method Room Air Room Air Room Air 02/02/23 04:28 02/02/23 05:46 Temperature 98.2 F Pulse Rate 80 Respiratory Rate 20 Blood Pressure [Left Arm] 123/78 H Blood Pressure [Right Arm] Pulse Oximetry 92 L 92 L Oxygen Delivery Method Room Air Room Air DS: Data Data Completed and Pending Labs on day of discharge: Labs from last 24 hours 02/02/23 02/02/23 02/02/23 03:58 00:56 00:15 WBC 18.0 H RBC 4.26 L Hgb 13.2 L Hct 36.8 L MCV 86.4 MCH 31.0 MCHC 35.9 H RDW 13.4 Plt Count 344 MPV 10.7 Neut % (Auto) 77.8 H Lymph % (Auto) 14.7 L [place] % (Auto) 5.7 Eos % (Auto) 0.7 L Baso % (Auto) 0.3 Neut # (Auto) 14.0 H Lymph # (Auto) 2.7 [place] # (Auto) 1.0 H Eos # (Auto) 0.1 Baso # (Auto) 0.1 Abs Immat Gran (auto) 0.15 H Imm/Tot Granulo (auto) 0.8 H Sodium 132 L Potassium 4.2 Chloride 99 Carbon Dioxide 27.6 Anion Gap 9.6 BUN 28.0 H Creatinine 0.77 Est GFR ( Amer) >60 Est GFR (Non-Af Amer) >60 BUN/Creatinine Ratio 36.4 Glucose 118 H Calcium 9.7 Total Bilirubin 0.2 AST 11 L ALT 18 Alkaline Phosphatase 171 H Total Protein 5.9 L Albumin 2.2 L Globulin 3.7 Albumin/Globulin Ratio 0.6 POC Glucose 116 H 61 L 02/01/23 02/01/23 20:02 11:29 WBC 20.0 H RBC 4.97 Hgb 15.3 Hct 42.7 MCV 85.9 MCH 30.8 MCHC 35.8 H RDW 13.3 Plt Count 363 MPV 10.4 Neut % (Auto) 89.6 H Lymph % (Auto) 6.5 L [place] % (Auto) 3.0 Eos % (Auto) 0.0 L Baso % (Auto) 0.2 Neut # (Auto) 17.9 H Lymph # (Auto) 1.3 [place] # (Auto) 0.6 Eos # (Auto) 0.0 Baso # (Auto) 0.1 Abs Immat Gran (auto) 0.15 H Imm/Tot Granulo (auto) 0.7 H Sodium 130 L Potassium 4.3 Chloride 96 L Carbon Dioxide 24.8 Anion Gap 13.5 BUN 25.0 H Creatinine 0.85 Est GFR ( Amer) >60 Est GFR (Non-Af Amer) >60 BUN/Creatinine Ratio 29.4 Glucose 526 H* Calcium 10.2 H Total Bilirubin 0.2 AST 10 L ALT 18 Alkaline Phosphatase 330 H Total Protein 7.1 Albumin 2.5 L Globulin 4.6 Albumin/Globulin Ratio 0.5 POC Glucose 321 H Discharge Plan Discharge Disposition: Home, Self-Care Discharge Medications: New azithromycin 250 mg Tablet 250 mg PO QD 3 Days Qty: 3 0RF amoxicillin-pot clavulanate 875-125 mg Tablet 1 tab PO BID 7 Days Qty: 14 0RF Continued aspirin 81 mg tablet,delayed release (DR/EC) 81 mg PO DAILY amlodipine-benazepril 10-20 mg capsule 1 cap PO DAILY ammonium lactate 12 % lotion 1 applic TOPICAL .twice a day atorvastatin 40 mg tablet 40 mg PO .evening glipizide 10 mg tablet 10 mg PO DAILY hydroxyzine HCl 25 mg tablet 25 mg PO DAILY lisinopril 2.5 mg tablet 2.5 mg PO DAILY quetiapine 50 mg tablet 50 mg PO .hs tamsulosin 0.4 mg capsule 0.4 mg PO DAILY Spiriva Respimat 2.5 mcg/actuation mist 2 puff INHALATION Q24H escitalopram oxalate 20 mg tablet 20 mg PO DAILY Changed insulin glargine [Lantus U-100 Insulin] 100 unit/mL solution 35 unit SUBCUT BID 30 Days Qty: 21 0RF Activity: increase activity as tolerated Diet: advance to your usual diet and diabetic diet Patient Instructions: Amoxicillin (By mouth) (Amoxicot, Amoxil, Amoxil Pedi atric, Trimox), Azithromycin (By mouth), COPD (Chronic Obstructive Pulmonary Disease) (DC) Forms: Portal Instructions Follow Up Appointments: please schedule a follow up appointment with your primary care physician within 3-5 days
--- NOTE | 2023-02-02 10:58 | CM.NOTE ---
Rounds made with randy Springer for discharge today. No discharge needs.
--- NOTE | 2023-02-03 10:59 | CM.DCFOLLOWU ---
FIRST ATTEMPT AT D/C FOLLOW UP CALL MADE TODAY, MAILBOX WAS FULL. UNABLE TO COMPLETE CALL BACK AT THIS TIME.
== END 2023-02-02 11:05 | disposition home or self-care (01) | DRG 139 ==
LOC: ER 10:39 → ICU 10:43 → MS 02-01 15:56
PROVIDERS: Internal Medicine; Admitting Provider Family Medicine; Emergency Provider Emergency Medicine Emergency Medical Services; PCP Internal Medicine; Visit Provider Family Medicine
DX: J18.9 Pneumonia, unspecified organism (principal); J44.1 Chronic obstructive pulmonary disease with (acute) exacerbation; J44.0 Chronic obstructive pulmonary disease with (acute) lower respiratory infection; E11.9 Type 2 diabetes mellitus without complications; E87.1 Hypo-osmolality and hyponatremia; I10 Essential (primary) hypertension; E78.5 Hyperlipidemia, unspecified; G47.00 Insomnia, unspecified; R64 Cachexia; F17.210 Nicotine dependence, cigarettes, uncomplicated; Z79.82 Long term (current) use of aspirin; Z79.4 Long term (current) use of insulin; Z79.84 Long term (current) use of oral hypoglycemic drugs; Z79.899 Other long term (current) drug therapy; T38.3X6A Underdosing of insulin and oral hypoglycemic [antidiabetic] drugs, initial encounter; Z91.128 Patient's intentional underdosing of medication regimen for other reason; Z20.822 Contact with and (suspected) exposure to COVID-19
CPT/HCPCS: 0202U; 36415; 36600; 71045; 80048; 80053; 80307; 82805; 82947; 83036; 84484; 85025; 85378; 93005; 94640; 94667; 94761; 96365; 96366; 96368; 96372; 96375; 96376; 99285; J0456; J2920; J2930

== ENCOUNTER 2023-02-07 18:06 | Inpatient (IN) | payer OTHER, SELFPAY ==
[2023-02-07] VITALS (14 sets, daily range): BP systolic 128–161; BP diastolic 82–124; PULSE 73–104; RESP 20–34; TEMP 36.3–36.8; O2SAT 69–93; BMI 20.9; BMI 15.8
--- NOTE | 2023-02-07 18:19 | PC.NURSE ---
PT ARRIVED PER EMS FOR SHORTNESS OF BREATH. PT O2 93% ON ROOM AIR. PT PLACED ON 2L OF O2 ON ARRIVAL. PT STATES HE DOES NOT WEAR O2 AT HOME
--- NOTE | 2023-02-07 18:35 | XR_ITS ---
The [address] [address] Patient Name: BROOKLYNN STEPHEN MRN: [id number] date: 1960 Sex: M Assigned Patient Location: ER Current Patient Location: ED.MAIN Accession/Order Number: [id number] Exam Date: 02/07/2023 19:12 Report Date: 02/07/2023 19:58 At the request of: BELINDA BERNSTEIN Procedure: XR chest 1V PROCEDURE: XR chest 1V DATE: 02/07/2023 6:12 PM CDT COMPARISONS: 01/31/2023 CLINICAL INDICATION: 62 years Male SOB FINDINGS: The heart is not enlarged. There is slight diffuse increased interstitial markings throughout all lung wilson best seen in the infrahilar regions extending to the bases. Similar findings were seen on previous exam but are slightly more prominent today. This may represent a small amount of interstitial fluid. It could represent some chronic lung changes. There is no evidence of pleural effusion or pneumothorax. IMPRESSION: Some slight diffuse increased interstitial markings may represent some interstitial fluid due to congestion. The heart does not appear significantly enlarged however. Electronically authenticated by: ESTIVEN RUIZ Date: 02/07/2023 19:58
--- NOTE | 2023-02-07 18:35 | ECG_ITS ---
[facility] Test Date: 2023-02-07 Pat Name: BROOKLYNN STEPHEN Department: Room: - Gender: Male Director Asset: : 1960 Requested By: SHAIKH GUILLERMO Order Number: [id number] Reading MD: KO CISNEROS Measurements Intervals [place] Rate: 100 P: 79 PA: 184 QRS: 109 QRSD: 92 T: 69 QT: 332 QTc: 389 Interpretive Statements 1120 Sinus tachycardia 6220 Possible left atrial enlargement 7100 Abnormal right axis deviation 9140 abnormal rhythm ECG Compared to ECG 01/31/2023 08:40:02 No significant changes Electronically Signed On 02-08-2023 19:45:40 EDT by KO CISNEROS
--- NOTE | 2023-02-07 18:36 | ED.SOB1 ---
HPI - SOB/Dyspnea General Chief Complaint: Shortness of Breath/Dyspnea Stated Complaint: SHORTNESS OF BREATHE Time Seen by Provider: 02/07/23 18:33 Source: patient Mode of arrival: ambulance Limitations: no limitations History of Present Illness HPI Narrative: 62-year-old male presents for shortness of breath. It started an hour ago. He hasn't had a fever and there was no injury and he is not complaining of chest pain. He was just sitting around and he wasn't outside. Paramedics gave him an aerosol treatment and he felt somewhat better and they brought him here. Related Data Home Medications Medication Instructions Recorded Confirmed amlodipine 10 mg-benazepril 20 mg 1 cap PO DAILY 01/31/23 01/31/23 capsule ammonium lactate 12 % lotion 1 applic topical .twice a day 01/31/23 01/31/23 aspirin 81 mg tablet,delayed 81 mg PO DAILY 01/31/23 01/31/23 release atorvastatin 40 mg tablet 40 mg PO .evening 01/31/23 01/31/23 escitalopram oxalate 20 mg tablet 20 mg PO DAILY 01/31/23 01/31/23 glipizide 10 mg tablet 10 mg PO DAILY 01/31/23 01/31/23 hydroxyzine HCl 25 mg tablet 25 mg PO DAILY 01/31/23 01/31/23 lisinopril 2.5 mg tablet 2.5 mg PO DAILY 01/31/23 01/31/23 quetiapine 50 mg tablet 50 mg PO .hs 01/31/23 01/31/23 tamsulosin 0.4 mg capsule 0.4 mg PO DAILY 01/31/23 01/31/23 tiotropium bromide 2.5 2 puff inhalation Q24H 01/31/23 01/31/23 mcg/actuation mist for inhalation (Spiriva Respimat) Previous Rx's Medication Instructions Recorded amoxicillin 875 mg-potassium 1 tab PO BID 7 days #14 tabs 02/02/23 clavulanate 125 mg tablet azithromycin 250 mg tablet 250 mg PO QD 3 days #3 tabs 02/02/23 insulin glargine 100 unit/mL 35 unit (0.35 mL) subcut BID 30 02/02/23 subcutaneous solution (Lantus days #21 mL U-100 Insulin) Allergies Allergy/AdvReac Type Severity Reaction Status Date / Time No Known Allergies AdvReac Mild Verified 01/31/23 08:44 Review of Systems ROS Narrative A ten point review of systems is negative except as noted above. PFSH PFSH Medical History Social History Smoking status: Former smoker Exam Narrative Exam Narrative: Nurses note and vital signs reviewed and patient is not hypoxic. General: The patient appears in no apparent respiratory distress. he does appear dyspneic. Skin: Warm, dry, no pallor noted. There is no rash noted. Head: Normocephalic, atraumatic Eye: Normal conjunctiva, no drainage Ears, Nose, Mouth, and Throat: oral mucosa is moist. Nares patent. Cardiovascular: Regular Rate and Rhythm, borderline tachycardic Respiratory: breath sounds are equal, course lung sounds present. Back: non-tender GI: soft and nontender Musculoskeletal: The patient has no evidence of calf tenderness, no pitting edema, symmetrical pulses noted bilaterally Neurological: A&O x4, normal speech Psychiatric: Cooperative Constitutional Vital Signs - 24 hr 02/07/23 18:09 02/07/23 18:18 Temperature 98.3 F Pulse Rate [Monitor] 103 H Respiratory Rate 20 Blood Pressure [Right Arm] 133/88 H Pulse Oximetry 93 L 93 L Oxygen Delivery Method Room Air Nasal Cannula Oxygen Delivery Flow Rate 2 Course Vital Signs Vital signs: Vital Signs Temperature 98.3 F 02/07/23 18:09 Pulse Rate 103 H 02/07/23 18:09 Respiratory Rate 20 02/07/23 18:09 Blood Pressure 133/88 H 02/07/23 18:09 Pulse Oximetry 93 L 02/07/23 18:09 Oxygen Delivery Method Room Air 02/07/23 18:09 Temperature 98.3 F 02/07/23 18:09 Pulse Rate 103 H 02/07/23 18:09 Respiratory Rate 20 02/07/23 18:09 Blood Pressure 133/88 H 02/07/23 18:09 Pulse Oximetry 93 L 02/07/23 18:18 Oxygen Delivery Method Nasal Cannula 02/07/23 18:18 Oxygen Delivery Flow Rate 2 02/07/23 18:18 MDM - SOB/Dyspnea MDM Narrative Medical decision making narrative: tests are ordered and the patient is signed out to Dr. Hawkins. Differential Diagnosis Differential diagnosis: Likely acute exacerbation of chronic obstructive airways disease, congestive heart failure, community acquired pneumonia and asthma with exacerbation Critical Care Time Critical Care Time Critical Care Time: Yes Total Critical Care Time: 35 Attestation: Due to the high probability of sudden deterioration critical care time was necessary. Discharge Plan Discharge Chief Complaint: Shortness of Breath/Dyspnea Clinical Impression: Chronic obstructive pulmonary disease with (acute) exacerbation Patient Disposition: Still a Patient Prescriptions / Home Meds: No Action aspirin 81 mg tablet,delayed release (DR/EC) 81 mg PO DAILY amlodipine-benazepril 10-20 mg capsule 1 cap PO DAILY ammonium lactate 12 % lotion 1 applic TOPICAL .twice a day atorvastatin 40 mg tablet 40 mg PO .evening glipizide 10 mg tablet 10 mg PO DAILY hydroxyzine HCl 25 mg tablet 25 mg PO DAILY lisinopril 2.5 mg tablet 2.5 mg PO DAILY quetiapine 50 mg tablet 50 mg PO .hs tamsulosin 0.4 mg capsule 0.4 mg PO DAILY Spiriva Respimat 2.5 mcg/actuation mist 2 puff INHALATION Q24H escitalopram oxalate 20 mg tablet 20 mg PO DAILY azithromycin 250 mg Tablet 250 mg PO QD 3 Days Qty: 3 0RF amoxicillin-pot clavulanate 875-125 mg Tablet 1 tab PO BID 7 Days Qty: 14 0RF insulin glargine [Lantus U-100 Insulin] 100 unit/mL solution 35 unit SUBCUT BID 30 Days Qty: 21 0RF Referrals: Shaikh Villar MD [Primary Care Provider] - 1 week
[2023-02-07] MEDS: ALBUTEROL SULFATE 2.5 MG/3 ML VIAL NEB IH (19:49)
[2023-02-08] VITALS (65 sets, daily range): BP systolic 124–186; BP diastolic 55–108; PULSE 73–94; RESP 8–45; TEMP 36.4–36.9; O2SAT 83–96
[2023-02-08 00:01] LABS: Basophils Absolute Auto 0.1 10^3/uL (0.0-0.1); Basophils Percent Auto 0.5 % (0.2-2.0); Eosinophils Percent Auto 0.1 % (0.9-7.0); Hematocrit 44.7 % (42.0-54.0); Hemoglobin 15.7 g/dL (14.0-18.0); Immature Granulocytes Abs Auto 0.17 10^3/uL (0.00-0.03); Immature Granulocytes Pct Auto 1.6 % (0.0-0.5); Lymphocytes Absolute Auto 0.7 10^3/uL (1.2-3.8); Lymphocytes Percent Auto 6.7 % (20.5-60.0); Mean Corpuscular HGB Conc 35.1 g/dL (29.9-35.2); Mean Corpuscular Hemoglobin 30.9 pg (25.9-34.0); Mean Platelet Volume 10.4 fL (9.5-13.5); Monocytes Absolute Auto 0.1 10^3/uL (0.3-0.8); Monocytes Percent Auto 0.5 % (1.7-12.0); Neutrophils Absolute Auto 9.4 10^3/uL (1.4-6.5); Neutrophils Percent Auto 90.6 % (43.0-75.0); Platelet Count 357 10^3/uL (150-450); Red Blood Count 5.08 10^6/uL (4.70-6.10); Red Cell Distribution Width 12.9 % (11.0-15.0); White Blood Count 10.4 10^3/uL (4.0-11.0)
[2023-02-08 00:33] LABS: Anion Gap 10.4; BUN Creatinine Ratio 31.5; Calcium 10.6 mg/dL (8.5-10.1); Chloride 91 mmol/L (98-107); Estimated GFR (African America >60 (>=60); Estimated GFR (Non-African Ame >60 (>=60); Potassium 5.4 mmol/L (3.5-5.1)
[2023-02-08 00:56] LABS: Glucose 811 mg/dL (74-106); Sodium 124 mmol/L (136-145)
--- NOTE | 2023-02-08 01:54 | P.PN_ITS ---
Progress Note: Subjective Subjective Interval history: Patient is a 62yo man with a PMHx of COPD, uncontrolled T2DM, Hypertension, Hyperlipidemia, who presented to the ED with worsening SOB that started in the afternoon. He states that he had increased cough and work of breathing but denied any sore throat, fevers, chills, N/V/D/C, or chest pain. He notes that he took his albuterol twice with some improvement in symptoms but he was never able to get back to baseline so he came to the ED. Here he was noted to be severely hyperglycemic and he he did admit to being very thirsty. He stated that he took his glargine on 02/06/2023 in the evening, which is at 35 units. He denies any LE edema, orthopnea or other symptoms of volume overload. Exam Constitutional Vital Signs - 24 hr 02/07/23 18:09 02/07/23 18:18 02/07/23 19:49 Temperature 98.3 F Pulse Rate 93 H Pulse Rate [Monitor] 103 H Respiratory Rate 20 24 Blood Pressure Blood Pressure [Right Arm] 133/88 H Pulse Oximetry 93 L 93 L 91 L Oxygen Delivery Method Room Air Nasal Cannula Oxygen Delivery Flow Rate 2 02/07/23 19:56 02/07/23 18:09 02/07/23 18:13 Temperature Pulse Rate 104 H 101 H 100 H Pulse Rate [Monitor] Respiratory Rate 27 H 22 21 Blood Pressure 133/88 H 134/89 H Blood Pressure [Right Arm] Pulse Oximetry 90 L 69 L Oxygen Delivery Method Oxygen Delivery Flow Rate 02/07/23 18:30 02/07/23 19:00 02/07/23 20:02 Temperature Pulse Rate 99 H 102 H 90 Pulse Rate [Monitor] Respiratory Rate 24 22 26 H Blood Pressure 128/84 H 135/82 H 154/124 H Blood Pressure [Right Arm] Pulse Oximetry Oxygen Delivery Method Oxygen Delivery Flow Rate 02/07/23 20:30 02/07/23 21:01 02/07/23 21:30 Temperature Pulse Rate 93 H 97 H 87 Pulse Rate [Monitor] Respiratory Rate 27 H 30 H 34 H Blood Pressure 161/107 H 136/98 H 138/105 H Blood Pressure [Right Arm] Pulse Oximetry Oxygen Delivery Method Oxygen Delivery Flow Rate 02/07/23 22:45 02/07/23 23:07 02/07/23 23:20 Temperature 97.3 F L Pulse Rate 90 73 Pulse Rate [Monitor] Respiratory Rate 22 20 Blood Pressure Blood Pressure [Right Arm] 133/89 H Pulse Oximetry 91 L 91 L Oxygen Delivery Method Room Air Room Air Oxygen Delivery Flow Rate 02/08/23 00:00 Temperature Pulse Rate 88 Pulse Rate [Monitor] Respiratory Rate Blood Pressure Blood Pressure [Right Arm] Pulse Oximetry Oxygen Delivery Method Oxygen Delivery Flow Rate Documenting provider has reviewed patient's vital signs: yes Common normals: no apparent distress General appearance: cooperative, comfortable and appears older than stated age Nutritional appearance: underweight Orientation/consciousness: Yes awake, Yes oriented to person, Yes oriented to place and Yes oriented to time HENMT Common normals: normocephalic Head and scalp: normocephalic Chest Common normals: inspection of chest normal Respiratory Common normals: no use of accessory muscles Effort & inspection: decreased respiratory effort and audible wheezes Auscultation: rhonchi lower bilaterally Cardio Common normals: no JVD, regular rate, regular rhythm, S1 normal heart sound, S2 normal heart sound and no murmurs Rate: regular rate Rhythm: regular rhythm GI Common normals: Normal to inspection, nondistended, normoactive bowel sounds present and soft to palpation Extremity Common normals: normal to inspection, full ROM and no pedal edema Neuro Common normals: oriented x3, CN's II-XII intact bilaterally, moves all extremities, no focal motor deficits and no sensory deficits noted Psych Psychiatry clinicians, please identify where your Mental Status Exam is documented: Mental Status Exam documented in the separate MSE Common normals: mental status grossly normal, thought process normal, cooperative and affect normal Speech: other (Hoarse voice) Thought process: normal thought process Thought content: normal thought content Insight: insight good Judgement: judgment good Progress Note: Objective Labs Labs: Short CBC 02/07/23 Range/Units 23:51 WBC 10.4 (4.0-11.0) 10^3/uL Hgb 15.7 (14.0-18.0) g/dL Hct 44.7 (42.0-54.0) % Plt Count 357 (150-450) 10^3/uL BMP 02/07/23 23:51 Sodium 124 L* Potassium 5.4 H Chloride 91 L Carbon Dioxide 28.0 BUN 34.0 H Creatinine 1.08 Glucose 811 H* Calcium 10.6 H Pulse Oximetry Attestation: I have reviewed the pertinent pulse oximetry results. ECG Prior ECG tracings: not available for review Interpretation: Normal sinus rhythm, no ST elevations Imaging Chest x-ray: Attestation: I have reviewed the pertinent imaging results. Radiologist's impression: Bilateral interstitial markings consistent with vascular congestion. Progress Note: A&P Assessment and Plan (1) Chronic obstructive pulmonary disease: (2) Hyperglycemia due to type 2 diabetes mellitus: (3) Chronic obstructive pulmonary disease with (acute) exacerbation: Plan 1. COPD exacerbation The patient has a history of COPD and is not on chronic home O2. He is not hypoxic here but was tachypneic in the ED. He has responded well to treatment. - admit to hospitalist service - c/w duonebs - c/w solumedrol q6h - c/w supplemental oxygen 2. Severe Hyperglycemia T2DM He states that he is compliant with his glipizide and glargine but his blood glucose is >800 and his last HbA1c was >14. There is no acidosis. - give IV bolus - c/w LR at 100 - start on insulin drip. 3. Hypertension - c/w benazepril and amlodipine 4. Hyperlipidemia - c/w atorvastatin and aspirin 5. BPH - c/w tamsulosin Telemedicine Attestation Telemedicine Attestation I conducted this encounter from [place] via secure live, [id number] video conference with the patient, located at [facility] with Aleta Simpson Prior to the interview, the risks and benefits of telemedicine were discussed with the patient and verbal consent was obtained.
[2023-02-08] MEDS: METHYLPREDNISOLONE SOD SUCC PF 40 MG/ML VIAL IVP ×2 (02:05→06:37)
[2023-02-08] MEDS: INSULIN REGULAR IN 0.9 % NACL 100 UNIT/100 ML PLAST..BAG IV (02:27)
[2023-02-08] MEDS: 0.9 % SODIUM CHLORIDE 1,000 ML 999 ML IV (02:28)
[2023-02-08] MEDS: LACTATED RINGER'S SOLUTION 1,000 ML 125 ML IV ×3 (03:13→21:21)
[2023-02-08 04:52] LABS: Basophils Percent Auto 0.4 % (0.2-2.0); Eosinophils Percent Auto 0.1 % (0.9-7.0); Hematocrit 41.7 % (42.0-54.0); Immature Granulocytes Abs Auto 0.13 10^3/uL (0.00-0.03); Immature Granulocytes Pct Auto 1.6 % (0.0-0.5); Lymphocytes Percent Auto 12.9 % (20.5-60.0); Mean Corpuscular Hemoglobin 31.1 pg (25.9-34.0); Mean Corpuscular Volume 86.3 fL (80.0-94.0); Mean Platelet Volume 11.5 fL (9.5-13.5); Monocytes Absolute Auto 0.1 10^3/uL (0.3-0.8); Neutrophils Absolute Auto 6.8 10^3/uL (1.4-6.5); Platelet Count 285 10^3/uL (150-450); Red Blood Count 4.83 10^6/uL (4.70-6.10); Red Cell Distribution Width 12.7 % (11.0-15.0); White Blood Count 8.1 10^3/uL (4.0-11.0)
[2023-02-08 05:02] LABS: BUN Creatinine Ratio 32.7; Calcium 9.9 mg/dL (8.5-10.1); Carbon Dioxide 21.9 mmol/L (21.0-32.0); Chloride 93 mmol/L (98-107); Estimated GFR (African America >60 (>=60); Estimated GFR (Non-African Ame >60 (>=60); Potassium 4.9 mmol/L (3.5-5.1)
[2023-02-08 05:04] LABS: Glucose 769 mg/dL (74-106); Sodium 124 mmol/L (136-145)
[2023-02-08 08:31] LABS: Glucose 704 mg/dL (74-106)
[2023-02-08] MEDS: TAMSULOSIN HCL 0.4 MG CAPSULE PO (08:36)
[2023-02-08] MEDS: HYDROXYZINE HCL 25 MG TABLET PO (08:36)
[2023-02-08] MEDS: AMLODIPINE BESYLATE 5 MG TABLET 10 MG PO (08:36)
[2023-02-08] MEDS: ASPIRIN 81 MG TABLET.DR PO (08:36)
[2023-02-08] MEDS: LISINOPRIL 5 MG TABLET 2.5 MG PO (08:37)
[2023-02-08] MEDS: INSULIN ASPART 300 UNIT/3 ML PEN SUBQ ×2 (08:37→16:37)
[2023-02-08 09:32] LABS: Estimated Average Glucose 355 mg/dL
[2023-02-08] MEDS: AZITHROMYCIN 250 MG TABLET PO (09:57)
[2023-02-08] MEDS: LACTATED RINGER'S SOLUTION 1,000 ML 200 ML IV (09:58)
--- NOTE | 2023-02-08 10:24 | RESP.RT ---
Pt refused HHN, Pt asked not to be bothered at this time, no distress noted at this time
--- NOTE | 2023-02-08 11:12 | CT_ITS ---
[address] [address] Patient Name: BROOKLYNN STEPHEN MRN: [id number] date: 1960 Sex: M Assigned Patient Location: ICU Current Patient Location: ICU Accession/Order Number: [id number] Exam Date: 02/08/2023 12:30 Report Date: 02/08/2023 13:01 At the request of: SHAIKH GUILLERMO Procedure: CT chest wo con EXAM: CT chest wo con; [id number] REASON FOR EXAM: SOB TECHNIQUE: Helical CT images of the chest were obtained without contrast. Multiplanar reformats and maximum intensity projection images were generated at the scanner. Dose reduction technique used: Automated exposure control and/or adjustment of the mA and/or kV according to patient size and/or use of iterative reconstruction technique. COMPARISON: Chest CT 03/04/2019. FINDINGS: Note: Compared with contrasted CT exams, noncontrast images are less sensitive for the detection of various types of soft tissue, solid organ, and vascular pathologies. Chest: Support devices: None. Visualized Thyroid: No nodules. Chest wall: Within normal limits. Ethel/mediastinum/esophagus: No mass. Thoracic lymph nodes: No enlarged supraclavicular, mediastinal, hilar or axillary lymph nodes. Heart and vasculature: -Borderline aneurysmal dilatation of the ascending aorta measuring 40 mm. -No pericardial effusion. -Dilation of the main pulmonary artery measuring 36 mm. -No coronary artery calcification. Visualized portions of the upper abdomen: -Ill-defined hypodensities in the left kidney, similar compared with 02/13/2020, incompletely evaluated on this exam though likely benign cysts. -There are 3 nonobstructing 1-3 mm stones in the left kidney. Musculoskeletal: Extensive sclerotic lesion in the left transverse process at T4, similar compared with 02/13/2020. No new suspect osseous lesion. No acute fracture. Lungs/airways: -Extensive centrilobular nodularity in both bases, right greater left; it new compared with 03/04/2019. -The central airways are patent. Pleura: No pleural effusion or pneumothorax. IMPRESSION: Extensive bibasilar centrilobular nodularity, new compared with 2019 and most compatible with infectious/inflammatory process of the small airways. Electronically authenticated by: ROMELIA HERMOSILLO Date: 02/08/2023 13:01
[2023-02-08] MEDS: GUAIFENESIN 600 MG TAB.ER.12H PO (11:21)
[2023-02-08] MEDS: PREDNISONE 20 MG TABLET 40 MG PO (11:21)
--- NOTE | 2023-02-08 12:42 | P.HP_ITS ---
H&P: HPI History of Present Illness Chief complaint: SOB, failure to thrive Narrative: 62 y o male with recent hospital admission for COPD exacerbation returned last night with worsening SOB, cough with sputum that did not improve with albuterol treatment so he came in for evaluation. Patient lives alone at home and reports not eating daily, also not compliant with insulin and uses it inconsistently. Patient was noted to have poor hygiene, was unkempt and it seems like he is struggling to manage his medical problems on his own. Patient on admission was also found to have severe hyperglycemia and was admitted to ICU on insulin drip for it along with COPD exacerbation for which he was started on IV steroids and Duonebs. This morning - he is still quite SOB, even at rest, speaking in short sentences. Patient also still has FSBS above 700 while on insulin drip. He was unable to provide me much information due to dyspnea and most of the hx obtained is from review of chart, my prior knowledge of this patient. Reports feeling tired, weak, has polydipsia, polyphagia and polyuria. Also feeling lightheaded. Denies N/V/abdominal pain Review of Systems ROS Status of ROS 10 or more systems reviewed and unremarkable except as noted in history and below [facility] Medical History (Updated 02/08/23 @ 13:02 by Shaikh Jian MD) Surgical History (Updated 02/07/23 @ 22:56 by Aleta Simpson) Social History (Updated 02/08/23 @ 12:49 by Shaikh Jian MD) Within the past year, how often did you have a drink containing alcohol: 4 or more times a week Within the past year, how many standard drinks containing alcohol did you have on a typical day: 1 or 2 Within the past year, how often did you have six or more drinks on one occasion: never Total score: 0 Score interpretation: Questions 2 and 3 are 0. It can be assumed that the patient's drinking is below the recommended limits. However, please confirm the accuracy of the patient's alcohol intake over the last few months. Smoking status: Current every day smoker Non-prescribed substance use: crack/cocaine and opiods/painkillers Meds Home Medications and Allergies Home Medications Medication Instructions Recorded Confirmed Type amlodipine 10 mg-benazepril 20 mg 1 cap PO DAILY 01/31/23 01/31/23 History capsule ammonium lactate 12 % lotion 1 applic topical .twice a day 01/31/23 01/31/23 History aspirin 81 mg tablet,delayed 81 mg PO DAILY 01/31/23 01/31/23 History release atorvastatin 40 mg tablet 40 mg PO .evening 01/31/23 01/31/23 History escitalopram oxalate 20 mg tablet 20 mg PO DAILY 01/31/23 01/31/23 History glipizide 10 mg tablet 10 mg PO DAILY 01/31/23 01/31/23 History hydroxyzine HCl 25 mg tablet 25 mg PO DAILY 01/31/23 01/31/23 History lisinopril 2.5 mg tablet 2.5 mg PO DAILY 01/31/23 01/31/23 History quetiapine 50 mg tablet 50 mg PO .hs 01/31/23 01/31/23 History tamsulosin 0.4 mg capsule 0.4 mg PO DAILY 01/31/23 01/31/23 History tiotropium bromide 2.5 2 puff inhalation Q24H 01/31/23 01/31/23 History mcg/actuation mist for inhalation (Spiriva Respimat) amoxicillin 875 mg-potassium 1 tab PO BID 7 days #14 tabs 02/02/23 Rx clavulanate 125 mg tablet insulin glargine 100 unit/mL 35 unit (0.35 mL) subcut BID 30 02/02/23 01/31/23 Rx subcutaneous solution (Lantus days #21 mL U-100 Insulin) Allergies Allergy/AdvReac Type Severity Reaction Status Date / Time No Known Allergies AdvReac Mild Verified 01/31/23 08:44 Exam Constitutional Vital Signs - 24 hr 02/07/23 18:09 02/07/23 18:18 02/07/23 19:49 Temperature 98.3 F Pulse Rate 93 H Pulse Rate [Monitor] 103 H Respiratory Rate 20 24 Blood Pressure Blood Pressure [Right Arm] 133/88 H Pulse Oximetry 93 L 93 L 91 L Oxygen Delivery Method Room Air Nasal Cannula Oxygen Delivery Flow Rate 2 02/07/23 19:56 02/07/23 18:09 02/07/23 18:13 Temperature Pulse Rate 104 H 101 H 100 H Pulse Rate [Monitor] Respiratory Rate 27 H 22 21 Blood Pressure 133/88 H 134/89 H Blood Pressure [Right Arm] Pulse Oximetry 90 L 69 L Oxygen Delivery Method Oxygen Delivery Flow Rate 02/07/23 18:30 02/07/23 19:00 02/07/23 20:02 Temperature Pulse Rate 99 H 102 H 90 Pulse Rate [Monitor] Respiratory Rate 24 22 26 H Blood Pressure 128/84 H 135/82 H 154/124 H Blood Pressure [Right Arm] Pulse Oximetry Oxygen Delivery Method Oxygen Delivery Flow Rate 02/07/23 20:30 02/07/23 21:01 02/07/23 21:30 Temperature Pulse Rate 93 H 97 H 87 Pulse Rate [Monitor] Respiratory Rate 27 H 30 H 34 H Blood Pressure 161/107 H 136/98 H 138/105 H Blood Pressure [Right Arm] Pulse Oximetry Oxygen Delivery Method Oxygen Delivery Flow Rate 02/07/23 22:45 02/07/23 23:07 02/07/23 23:20 Temperature 97.3 F L Pulse Rate 90 73 Pulse Rate [Monitor] Respiratory Rate 22 20 Blood Pressure Blood Pressure [Right Arm] 133/89 H Pulse Oximetry 91 L 91 L Oxygen Delivery Method Room Air Room Air Oxygen Delivery Flow Rate 02/08/23 03:34 02/08/23 00:00 02/08/23 02:00 Temperature 97.9 F Pulse Rate 84 88 79 Pulse Rate [Monitor] Respiratory Rate 20 Blood Pressure Blood Pressure [Right Arm] 155/107 H Pulse Oximetry 90 L Oxygen Delivery Method Room Air Oxygen Delivery Flow Rate 02/08/23 04:11 02/08/23 04:20 02/08/23 08:00 Temperature 98.0 F Pulse Rate 79 85 Pulse Rate [Monitor] 87 Respiratory Rate 18 16 Blood Pressure Blood Pressure [Right Arm] 146/101 H 165/106 H Pulse Oximetry 90 L 94 L Oxygen Delivery Method Room Air Room Air Oxygen Delivery Flow Rate 02/08/23 09:51 02/08/23 11:24 02/08/23 11:57 Temperature 98.0 F Pulse Rate 83 89 83 Pulse Rate [Monitor] Respiratory Rate 22 Blood Pressure Blood Pressure [Right Arm] 140/98 H Pulse Oximetry 94 L Oxygen Delivery Method Room Air Oxygen Delivery Flow Rate Documenting provider has reviewed patient's vital signs: yes General appearance: disheveled, lethargic and ill appearing Nutritional appearance: thin Orientation/consciousness: Yes awake, Yes oriented to person, Yes oriented to place, Yes oriented to time and Yes lethargic HENMT Common normals: normocephalic and head/scalp atraumatic Eye Common normals: conjunctivae normal and no scleral icterus Respiratory Effort & inspection: tachypneic and other (speaking in short sentences due to Dyspnea) Auscultation: crackles Laterality: bilateral and wheezes Cardio Common normals: no JVD, regular rate, regular rhythm, S1 normal heart sound, S2 normal heart sound and no murmurs GI Common normals: Normal to inspection, nondistended, normoactive bowel sounds present, soft to palpation, non-tender and no hepatosplenomegaly Extremity Common normals: full ROM Neuro Common normals: oriented x3, moves all extremities and no focal motor deficits Psych Common normals: cooperative, denies hallucinations, denies homicidal ideation and denies suicidal ideation Results Labs Labs: Short CBC 02/07/23 02/08/23 Range/Units 23:51 03:55 WBC 10.4 8.1 (4.0-11.0) 10^3/uL Hgb 15.7 15.0 (14.0-18.0) g/dL Hct 44.7 41.7 L (42.0-54.0) % Plt Count 357 285 (150-450) 10^3/uL BMP 02/07/23 02/08/23 02/08/23 23:51 03:55 07:50 Sodium 124 L* 124 L* Potassium 5.4 H 4.9 Chloride 91 L 93 L Carbon Dioxide 28.0 21.9 BUN 34.0 H 33.0 H Creatinine 1.08 1.01 Glucose 811 H* 769 H* 704 H* Calcium 10.6 H 9.9 Assessment and Plan Assessment and Plan (1) Hyperglycemia due to type 2 diabetes mellitus: Assessment and Plan: Poorly controlled T2 DM at baseline, presented with severe hyperglycemia. Likely from inconsistent use of Insulin, non compliance with diet and medication. Not in DKA as normal AG. On Insulin drip - BMP Q4, ACCU checks q1h. On LR at 200/hr to expand intravascular volume. Increase Levmir to 40 q12 Qualifiers: Diabetes mellitus fpc insulin use: with intermediate accountant use Qualified Code(s): E11.65 - Type 2 diabetes mellitus with hyperglycemia; Z79.4 - long term care pharmacist (current) use of insulin (2) Chronic obstructive pulmonary disease with (acute) exacerbation: Assessment and Plan: CXR no concern for PNA. But v dyspneic, has b/l rhonchi. Suspect underlying PNA Will get CT chest w/o contrast for better visualization of lung parenchyma Switch to Oral Prednisone as no sig wheezing on exam. C/w duonebs q4 Will decide on Abx coverage until CT chest. Currently on Azithromycin for COPD exacerbation (3) Hyperlipidemia associated with type 2 diabetes mellitus: Assessment and Plan: C/w lipitor. (4) Hypertension: Assessment and Plan: Above goal. C/w amlodipine/Benazepril for now. Monitor and will adjust meds as needed (5) Failure to thrive: Assessment and Plan: Failure to thrive, malnourished, unable to take care of himself. Weak, tired. Will order PT/OT. Might need SNF placement once medically cleared. Qualifiers: Failure to thrive age range: in adult Qualified Code(s): R62.7 - Adult failure to thrive (6) Hyponatremia: Assessment and Plan: due to hyperglycemia Closely monitor. (7) Depression: Assessment and Plan: C/w Escitalopram
[2023-02-08] MEDS: INSULIN DETEMIR 300 UNIT/3 ML INSULN.PEN 40 UNIT SUBQ (13:09)
[2023-02-08] MEDS: ESCITALOPRAM 10 MG TABLET 20 MG PO (13:10)
[2023-02-08] MEDS: CEFTRIAXONE 1,000 MG in 0.9 % SODIUM CHLORIDE 50 ML 100 MG IV (13:43)
[2023-02-08] MEDS: LEVOFLOXACIN IN DEXTROSE 5 % 750 MG/150 ML PIGGYBACK IV (14:53)
[2023-02-08] MEDS: INSULIN REGULAR IN 0.9 % NACL 100 UNIT/100 ML PLAST..BAG 10 UNIT IV (15:16)
[2023-02-08] MEDS: IPRATROPIUM/ALBUTEROL SULFATE 3 ML AMPUL.NEB IH ×3 (15:49→23:17)
[2023-02-08 16:28] LABS: Anion Gap 9.5; BUN Creatinine Ratio 27.5; Chloride 97 mmol/L (98-107); Estimated GFR (African America >60 (>=60); Estimated GFR (Non-African Ame >60 (>=60); Potassium 4.5 mmol/L (3.5-5.1); Sodium 128 mmol/L (136-145)
[2023-02-08 16:35] LABS: Glucose 504 mg/dL (74-106)
[2023-02-08] MEDS: QUETIAPINE FUMARATE 25 MG TABLET 50 MG PO (21:00)
[2023-02-08] MEDS: METOPROLOL TARTRATE 25 MG TABLET PO (21:19)
[2023-02-09] VITALS (59 sets, daily range): BP systolic 89–140; BP diastolic 57–93; PULSE 60–92; RESP 0–33; TEMP 36.4–36.8; O2SAT 94–97; BMI 15.8
[2023-02-09] MEDS: GUAIFENESIN 600 MG TAB.ER.12H PO ×2 (00:39→08:24)
[2023-02-09] MEDS: INSULIN DETEMIR 300 UNIT/3 ML INSULN.PEN 40 UNIT SUBQ ×2 (00:41→08:25)
[2023-02-09 00:59] LABS: Anion Gap 9.5; BUN Creatinine Ratio 31.8; Calcium 9.8 mg/dL (8.5-10.1); Carbon Dioxide 26.4 mmol/L (21.0-32.0); Chloride 100 mmol/L (98-107); Estimated GFR (African America >60 (>=60); Estimated GFR (Non-African Ame >60 (>=60); Glucose 370 mg/dL (74-106); Potassium 3.9 mmol/L (3.5-5.1); Sodium 132 mmol/L (136-145)
[2023-02-09] MEDS: INSULIN REGULAR IN 0.9 % NACL 100 UNIT/100 ML PLAST..BAG 10 UNIT IV (02:45)
[2023-02-09 04:44] LABS: Basophils Absolute Auto 0.1 10^3/uL (0.0-0.1); Basophils Percent Auto 0.2 % (0.2-2.0); Eosinophils Absolute Auto 0.1 10^3/uL (0.0-0.7); Eosinophils Percent Auto 0.3 % (0.9-7.0); Hematocrit 34.8 % (42.0-54.0); Hemoglobin 12.5 g/dL (14.0-18.0); Immature Granulocytes Abs Auto 0.28 10^3/uL (0.00-0.03); Immature Granulocytes Pct Auto 1.2 % (0.0-0.5); Lymphocytes Absolute Auto 2.5 10^3/uL (1.2-3.8); Lymphocytes Percent Auto 10.5 % (20.5-60.0); Mean Corpuscular HGB Conc 35.9 g/dL (29.9-35.2); Mean Corpuscular Hemoglobin 30.8 pg (25.9-34.0); Mean Corpuscular Volume 85.7 fL (80.0-94.0); Mean Platelet Volume 10.4 fL (9.5-13.5); Monocytes Absolute Auto 1.4 10^3/uL (0.3-0.8); Neutrophils Absolute Auto 19.1 10^3/uL (1.4-6.5); Neutrophils Percent Auto 81.8 % (43.0-75.0); Platelet Count 333 10^3/uL (150-450); Red Blood Count 4.06 10^6/uL (4.70-6.10); White Blood Count 23.4 10^3/uL (4.0-11.0)
[2023-02-09 05:04] LABS: Alanine Aminotransferase 14 U/L (16-63); Albumin Globulin Ratio 0.6; Alkaline Phosphatase 246 U/L (46-116); Anion Gap 9.8; Aspartate Amino Transferase <5 U/L (15-37); BUN Creatinine Ratio 35.4; Bilirubin Total 0.2 mg/dL (0.2-1.0); Calcium 9.5 mg/dL (8.5-10.1); Carbon Dioxide 26.8 mmol/L (21.0-32.0); Chloride 102 mmol/L (98-107); Estimated GFR (African America >60 (>=60); Estimated GFR (Non-African Ame >60 (>=60); Globulin 3.6 g/dL; Glucose 282 mg/dL (74-106); Potassium 3.6 mmol/L (3.5-5.1); Sodium 135 mmol/L (136-145); Total Protein 5.6 g/dL (6.4-8.2)
[2023-02-09] MEDS: ASPIRIN 81 MG TABLET.DR PO (08:05)
[2023-02-09] MEDS: AMLODIPINE BESYLATE 5 MG TABLET 10 MG PO (08:05)
[2023-02-09] MEDS: TAMSULOSIN HCL 0.4 MG CAPSULE PO (08:06)
[2023-02-09] MEDS: INSULIN ASPART 300 UNIT/3 ML PEN SUBQ ×2 (08:06→11:40)
[2023-02-09] MEDS: METOPROLOL TARTRATE 25 MG TABLET PO (08:06)
[2023-02-09] MEDS: HYDROXYZINE HCL 25 MG TABLET PO (08:06)
[2023-02-09] MEDS: ESCITALOPRAM 10 MG TABLET 20 MG PO (08:23)
[2023-02-09] MEDS: PREDNISONE 20 MG TABLET 40 MG PO (08:23)
[2023-02-09] MEDS: LEVOFLOXACIN IN DEXTROSE 5 % 750 MG/150 ML IV.SOLN 100 MG IV (09:00)
[2023-02-09] MEDS: LEVOFLOXACIN IN DEXTROSE 5 % 750 MG/150 ML PIGGYBACK IV (09:08)
--- NOTE | 2023-02-09 09:14 | CM.NOTE ---
Pt does have a history of drug use. Pt lives at home alone. Pt does voice concern about him being unable to care for himself. Pt verbalizes needs assistance with medications, house work and meals. Pt refuses skilled therapy but states he is going to look into assisted living. Pt is not opposed to HH. Will follow for discharge needs and assessment. Information also passed on to JUAN.
--- NOTE | 2023-02-09 10:30 | SWNOTE1 ---
SW met with pt to discuss dc needs. Pt lives at home by himself, a few steps to get into home. Pt does not use any medical equipment at home to get around at this time, but he would if needed. Pt did state his sister does assist as needed. SW and pt spoke about assisted living and pt possibly going there. Pt was a little hard to understand, but spoke about being assessed for Assisted Living and not qualifying. SW is not sure. He stated they asked for a note from the doctor, but at this time pt is not sure who his Primay care physician is, SW to see if we can find out. SW and pt spoke about Home health services coming in for therapy and a nurse to assist with medications. Pt does agree to this. JUAN provided a list from medicare.gov with star ratings for pt to review, he told SW to call his sister. JUAN called and spoke with pt's sister and she does not have a preference at this time. JUAN to let pt know we spoke with his sister and then determine HH company.
--- NOTE | 2023-02-09 10:46 | SWNOTE1 ---
Pt does not have a preference on Home health companies at this time, SW to send referral to [facility]. [facility] and [facility] SW also spoke with pt about going to assisted facility fo rehab, but at this time pt refusing to go.
--- NOTE | 2023-02-09 12:07 | SWNOTE1 ---
JUAN called and spoke with pt's sister to find out who pt's PCP is, Alexandria Fleming is his PCP. JUAN notified [facility] of this, they are still reviewing referral.
--- NOTE | 2023-02-09 12:48 | DIETREC ---
Nutrition Recommendations: Patient meets criteria for severe malnutrition. 1) Increase diet to 1800 calorie diet, or provide preferred carb restriction per meal with looser restriction on calories. 2) Add Prostat [address] following
[2023-02-09] MEDS: CEFTRIAXONE 1,000 MG in 0.9 % SODIUM CHLORIDE 50 ML 100 MG IV (13:37)
--- NOTE | 2023-02-09 13:54 | SWNOTE1 ---
JUAN called and spoke with [facility], [facility], and [facility], none of them were able to accept pt due to his insurance. JUAN called [facility] and they do take that insurance, referral faxed.
--- NOTE | 2023-02-09 14:37 | CM.NOTE ---
Rounds made with Dr. Villar, possible discharge later today. Pt in agreement to HH- refuses any inpatient skilled therapy.
--- NOTE | 2023-02-09 14:53 | SWNOTE1 ---
[facility] is not able to accept because they cannot do PT/OT with his caresource. JUAN called [facility] and they do not take care source. JUAN called [facility] and they do take pt's insurance. SW sent referral.
[2023-02-09] MEDS: IPRATROPIUM/ALBUTEROL SULFATE 3 ML AMPUL.NEB IH (16:02)
--- NOTE | 2023-02-09 16:03 | P.DS_ITS ---
DS: Providers Provider Date of admission: 02/07/23 21:29 Primary care physician: Shaikh Jian MD Consults: 02/07/23 Consult to Candy Separator Hard Routine 02/08/23 13:02 Occupational Therapy Eval and Treat Routine Physical Therapy Eval and Treat Routine Attending physician on discharge: Shaikh Jian Discharging clinician: Shaikh Jian Anticipated date of discharge: 02/09/23 DS: Diagnosis Discharge Diagnosis (1) Hyperglycemia due to type 2 diabetes mellitus: Assessment and plan: Improved with IV hydration and IV insuline. Will d/c on Levemir 40 q12 along with sliding scale coverage. Need to f/u with PCP Qualifiers: Diabetes mellitus group home insulin use: with termite helper use Qualified Code(s): E11.65 - Type 2 diabetes mellitus with hyperglycemia; Z79.4 - longterm (current) use of insulin (2) Chronic obstructive pulmonary disease with (acute) exacerbation: Assessment and plan: on RA. no sig wheezing on exam. Stable for d/c (3) Hyperlipidemia associated with type 2 diabetes mellitus: Assessment and plan: C/w statin (4) Hypertension: Assessment and plan: Poorly controlled. Added Lopressor to his regimen (5) Failure to thrive: Assessment and plan: Plan was for rehab placement but patient is now insisting to go home. Will d/c home. He is looking into assisted living care and his sister is going to help him out with it Qualifiers: Failure to thrive age range: in adult Qualified Code(s): R62.7 - Adult failure to thrive (6) Hyponatremia: Assessment and plan: pseudohyponatremia. Resolved. (7) Depression: Assessment and plan: Resume home meds (8) Pneumonia: Assessment and plan: CT chest cw b/l PNA - will dc on oral Levaquin Patient needs outpatient CT chest to ensure resolution DS: Summary Hospital Course Hospital Course: Patient admitted for worsening SOB and severe hyperglycemia He was started on IV steroids, inhaled bronchodilators for COPD exacerbation. Later on Rocephin and Levaquin were added for Multifocal PNA, noted on CT chest was ordered for his resp symptoms. He reports no resp complaints today, on RA and is very comfortable. For his hyperglycemia - he need to be on IV insulin drip and required aggressive IV hydration. He has been off of insulin drip since early . FSBS are above goal but well below what he presented with. He needs adjustment and close monitoring of his Diabetic regimen. Leukocytosis noted on blood work today likely steroid induced. Status at Discharge Overall status at discharge: patient is back to baseline Time Spent with Patient Time attestation: Total time spent providing and/or coordinating discharge services: Time spent: greater than 30 minutes Exam Constitutional Vital Signs - 24 hr 02/08/23 17:41 02/08/23 19:55 02/08/23 19:55 Temperature 97.6 F Pulse Rate 82 90 90 Pulse Rate [Monitor] Respiratory Rate 18 Blood Pressure Blood Pressure [Right Arm] 124/55 H Pulse Oximetry 94 L 90 L Oxygen Delivery Method Room Air 02/08/23 19:52 02/08/23 19:40 02/08/23 19:54 Temperature Pulse Rate 87 84 Pulse Rate [Monitor] Respiratory Rate 26 H 20 Blood Pressure Blood Pressure [Right Arm] Pulse Oximetry 94 L 94 L 94 L Oxygen Delivery Method Room Air Room Air Room Air 02/08/23 21:51 02/08/23 23:00 02/08/23 23:17 Temperature Pulse Rate 85 74 75 Pulse Rate [Monitor] Respiratory Rate 18 Blood Pressure Blood Pressure [Right Arm] Pulse Oximetry 93 L 95 95 Oxygen Delivery Method Room Air 02/08/23 16:30 02/08/23 16:40 02/08/23 16:50 Temperature 98.4 F Pulse Rate 87 85 85 Pulse Rate [Monitor] Respiratory Rate 17 24 21 Blood Pressure 129/74 H Blood Pressure [Right Arm] Pulse Oximetry 93 L Oxygen Delivery Method 02/08/23 17:00 02/08/23 17:10 02/08/23 17:20 Temperature Pulse Rate 85 91 H 89 Pulse Rate [Monitor] Respiratory Rate 45 H 8 L 14 Blood Pressure Blood Pressure [Right Arm] Pulse Oximetry Oxygen Delivery Method 02/08/23 17:30 02/08/23 17:40 02/08/23 17:50 Temperature Pulse Rate 84 80 82 Pulse Rate [Monitor] Respiratory Rate 18 Blood Pressure Blood Pressure [Right Arm] Pulse Oximetry Oxygen Delivery Method 02/08/23 18:00 02/08/23 18:10 02/08/23 18:20 Temperature Pulse Rate 81 85 83 Pulse Rate [Monitor] Respiratory Rate Blood Pressure Blood Pressure [Right Arm] Pulse Oximetry Oxygen Delivery Method 02/08/23 18:30 02/08/23 18:40 02/08/23 18:50 Temperature Pulse Rate 90 81 79 Pulse Rate [Monitor] Respiratory Rate Blood Pressure Blood Pressure [Right Arm] Pulse Oximetry Oxygen Delivery Method 02/08/23 19:00 02/08/23 19:10 02/08/23 19:14 Temperature Pulse Rate 89 87 Pulse Rate [Monitor] Respiratory Rate Blood Pressure 126/108 H Blood Pressure [Right Arm] Pulse Oximetry 89 L Oxygen Delivery Method 02/08/23 19:14 02/08/23 19:14 02/08/23 19:19 Temperature Pulse Rate 89 Pulse Rate [Monitor] Respiratory Rate 17 Blood Pressure 126/108 H 124/55 H Blood Pressure [Right Arm] Pulse Oximetry 83 L Oxygen Delivery Method 02/08/23 19:19 02/08/23 19:20 02/08/23 19:30 Temperature Pulse Rate 85 86 82 Pulse Rate [Monitor] Respiratory Rate 31 H 17 32 H Blood Pressure Blood Pressure [Right Arm] Pulse Oximetry Oxygen Delivery Method 02/08/23 19:40 02/08/23 19:50 02/08/23 20:00 Temperature Pulse Rate 81 88 88 Pulse Rate [Monitor] Respiratory Rate 23 26 H 24 Blood Pressure Blood Pressure [Right Arm] Pulse Oximetry Oxygen Delivery Method 02/08/23 20:10 02/08/23 20:20 02/08/23 20:30 Temperature Pulse Rate 89 89 88 Pulse Rate [Monitor] Respiratory Rate 32 H 27 H 16 Blood Pressure Blood Pressure [Right Arm] Pulse Oximetry Oxygen Delivery Method 02/08/23 20:40 02/08/23 20:50 02/08/23 21:00 Temperature Pulse Rate 85 83 84 Pulse Rate [Monitor] Respiratory Rate 21 23 20 Blood Pressure Blood Pressure [Right Arm] Pulse Oximetry Oxygen Delivery Method 02/08/23 21:10 02/08/23 21:20 02/08/23 21:30 Temperature Pulse Rate 82 86 88 Pulse Rate [Monitor] Respiratory Rate 19 14 22 Blood Pressure Blood Pressure [Right Arm] Pulse Oximetry Oxygen Delivery Method 02/08/23 21:40 02/08/23 21:50 02/08/23 22:00 Temperature Pulse Rate 94 H 85 85 Pulse Rate [Monitor] Respiratory Rate 20 24 22 Blood Pressure Blood Pressure [Right Arm] Pulse Oximetry Oxygen Delivery Method 02/08/23 22:10 02/08/23 22:20 02/08/23 22:30 Temperature Pulse Rate 83 82 79 Pulse Rate [Monitor] Respiratory Rate 22 21 21 Blood Pressure Blood Pressure [Right Arm] Pulse Oximetry Oxygen Delivery Method 02/08/23 22:40 02/08/23 22:50 02/08/23 23:00 Temperature Pulse Rate 77 74 74 Pulse Rate [Monitor] Respiratory Rate 21 20 13 Blood Pressure Blood Pressure [Right Arm] Pulse Oximetry Oxygen Delivery Method 02/08/23 23:10 02/08/23 23:20 02/08/23 23:27 Temperature Pulse Rate 75 73 Pulse Rate [Monitor] Respiratory Rate 22 30 H Blood Pressure 129/74 H Blood Pressure [Right Arm] Pulse Oximetry 93 L Oxygen Delivery Method 02/08/23 23:27 02/08/23 23:30 02/08/23 23:57 Temperature Pulse Rate 74 75 75 Pulse Rate [Monitor] Respiratory Rate 31 H 25 H Blood Pressure Blood Pressure [Right Arm] Pulse Oximetry 96 Oxygen Delivery Method 02/08/23 23:57 02/09/23 00:50 02/09/23 01:47 Temperature Pulse Rate 72 66 Pulse Rate [Monitor] 74 Respiratory Rate Blood Pressure Blood Pressure [Right Arm] Pulse Oximetry 95 Oxygen Delivery Method 02/09/23 02:54 02/09/23 04:31 02/09/23 04:31 Temperature 97.8 F Pulse Rate 71 73 Pulse Rate [Monitor] 72 Respiratory Rate 16 Blood Pressure Blood Pressure [Right Arm] 89/57 L Pulse Oximetry Oxygen Delivery Method Room Air 02/09/23 04:38 02/09/23 05:25 02/09/23 06:46 Temperature Pulse Rate 72 72 62 Pulse Rate [Monitor] Respiratory Rate Blood Pressure Blood Pressure [Right Arm] Pulse Oximetry 95 Oxygen Delivery Method 02/09/23 00:20 02/09/23 00:30 02/09/23 00:40 Temperature 97.6 F Pulse Rate 73 92 H 71 Pulse Rate [Monitor] Respiratory Rate 16 31 H 19 Blood Pressure 128/87 H Blood Pressure [Right Arm] Pulse Oximetry 94 L Oxygen Delivery Method 02/09/23 00:50 02/09/23 01:00 02/09/23 01:10 Temperature Pulse Rate 72 72 68 Pulse Rate [Monitor] Respiratory Rate 20 20 20 Blood Pressure Blood Pressure [Right Arm] Pulse Oximetry Oxygen Delivery Method 02/09/23 01:20 02/09/23 01:30 02/09/23 01:40 Temperature Pulse Rate 69 70 69 Pulse Rate [Monitor] Respiratory Rate 21 18 20 Blood Pressure Blood Pressure [Right Arm] Pulse Oximetry Oxygen Delivery Method 02/09/23 01:52 02/09/23 02:00 02/09/23 02:10 Temperature Pulse Rate 73 69 69 Pulse Rate [Monitor] Respiratory Rate 30 H 18 21 Blood Pressure Blood Pressure [Right Arm] Pulse Oximetry Oxygen Delivery Method 02/09/23 02:20 02/09/23 02:30 02/09/23 02:40 Temperature Pulse Rate 68 70 71 Pulse Rate [Monitor] Respiratory Rate 0 L 18 18 Blood Pressure Blood Pressure [Right Arm] Pulse Oximetry Oxygen Delivery Method 02/09/23 02:50 02/09/23 03:00 02/09/23 03:10 Temperature Pulse Rate 71 71 71 Pulse Rate [Monitor] Respiratory Rate 18 18 22 Blood Pressure Blood Pressure [Right Arm] Pulse Oximetry Oxygen Delivery Method 02/09/23 03:20 02/09/23 03:30 02/09/23 03:40 Temperature Pulse Rate 74 71 72 Pulse Rate [Monitor] Respiratory Rate 21 18 19 Blood Pressure Blood Pressure [Right Arm] Pulse Oximetry Oxygen Delivery Method 02/09/23 03:50 02/09/23 04:00 02/09/23 04:10 Temperature Pulse Rate 72 73 72 Pulse Rate [Monitor] Respiratory Rate 18 18 12 Blood Pressure Blood Pressure [Right Arm] Pulse Oximetry Oxygen Delivery Method 02/09/23 04:20 02/09/23 04:27 02/09/23 04:27 Temperature Pulse Rate 71 72 Pulse Rate [Monitor] Respiratory Rate 5 L 18 Blood Pressure 89/57 L Blood Pressure [Right Arm] Pulse Oximetry Oxygen Delivery Method 02/09/23 04:27 02/09/23 04:30 02/09/23 04:40 Temperature Pulse Rate 72 75 Pulse Rate [Monitor] Respiratory Rate 19 17 Blood Pressure 89/57 L Blood Pressure [Right Arm] Pulse Oximetry 97 Oxygen Delivery Method 02/09/23 04:50 02/09/23 05:00 02/09/23 05:10 Temperature Pulse Rate 72 72 69 Pulse Rate [Monitor] Respiratory Rate 13 11 L 16 Blood Pressure Blood Pressure [Right Arm] Pulse Oximetry Oxygen Delivery Method 02/09/23 05:20 02/09/23 05:30 02/09/23 05:40 Temperature Pulse Rate 70 73 76 Pulse Rate [Monitor] Respiratory Rate 18 19 33 H Blood Pressure Blood Pressure [Right Arm] Pulse Oximetry Oxygen Delivery Method 02/09/23 05:50 02/09/23 06:00 02/09/23 06:10 Temperature Pulse Rate 66 63 63 Pulse Rate [Monitor] Respiratory Rate 15 23 19 Blood Pressure Blood Pressure [Right Arm] Pulse Oximetry Oxygen Delivery Method 02/09/23 06:20 02/09/23 06:30 02/09/23 06:40 Temperature Pulse Rate 63 63 62 Pulse Rate [Monitor] Respiratory Rate 19 20 18 Blood Pressure Blood Pressure [Right Arm] Pulse Oximetry Oxygen Delivery Method 02/09/23 06:50 02/09/23 07:00 02/09/23 07:10 Temperature Pulse Rate 62 60 65 Pulse Rate [Monitor] Respiratory Rate 19 18 12 Blood Pressure Blood Pressure [Right Arm] Pulse Oximetry Oxygen Delivery Method 02/09/23 07:20 02/09/23 07:30 02/09/23 07:40 Temperature Pulse Rate 60 60 74 Pulse Rate [Monitor] Respiratory Rate 21 20 18 Blood Pressure Blood Pressure [Right Arm] Pulse Oximetry Oxygen Delivery Method 02/09/23 07:42 02/09/23 07:42 02/09/23 07:50 Temperature Pulse Rate 67 76 Pulse Rate [Monitor] Respiratory Rate 7 L Blood Pressure 128/87 H Blood Pressure [Right Arm] Pulse Oximetry Oxygen Delivery Method 02/09/23 10:00 02/09/23 11:44 02/09/23 11:44 Temperature 98.2 F Pulse Rate 82 65 65 Pulse Rate [Monitor] Respiratory Rate 16 Blood Pressure Blood Pressure [Right Arm] 140/93 H Pulse Oximetry 97 Oxygen Delivery Method Room Air 02/09/23 13:47 02/09/23 16:00 02/09/23 16:00 Temperature Pulse Rate 74 74 Pulse Rate [Monitor] Respiratory Rate 16 Blood Pressure Blood Pressure [Right Arm] Pulse Oximetry 97 Oxygen Delivery Method Documenting provider has reviewed patient's vital signs: yes General appearance: disheveled Nutritional appearance: thin Orientation/consciousness: Yes awake, Yes oriented to person, Yes oriented to place and Yes oriented to time HENMT Common normals: normocephalic and head/scalp atraumatic Eye Common normals: conjunctivae normal and no scleral icterus Respiratory Common normals: normal respiratory effort and no use of accessory muscles Effort & inspection: able to speak in complete sentences Auscultation: crackles Laterality: bilateral Cardio Common normals: no JVD, regular rate, regular rhythm, S1 normal heart sound, S2 normal heart sound and no murmurs GI Common normals: Normal to inspection, nondistended, normoactive bowel sounds present, soft to palpation, non-tender and no hepatosplenomegaly Extremity Common normals: full ROM Neuro Common normals: oriented x3, moves all extremities and no focal motor deficits Psych Common normals: cooperative, denies hallucinations, denies homicidal ideation and denies suicidal ideation DS: Data Data Completed and Pending Labs on day of discharge: Labs from last 24 hours 02/09/23 02/09/23 02/08/23 04:26 00:34 16:05 WBC 23.4 H RBC 4.06 L Hgb 12.5 L Hct 34.8 L MCV 85.7 MCH 30.8 MCHC 35.9 H RDW 13.0 Plt Count 333 MPV 10.4 Neut % (Auto) 81.8 H Lymph % (Auto) 10.5 L Granite % (Auto) 6.0 Eos % (Auto) 0.3 L Baso % (Auto) 0.2 Neut # (Auto) 19.1 H Lymph # (Auto) 2.5 Granite # (Auto) 1.4 H Eos # (Auto) 0.1 Baso # (Auto) 0.1 Abs Immat Gran (auto) 0.28 H Imm/Tot Granulo (auto) 1.2 H Sodium 135 L 132 L 128 L Potassium 3.6 3.9 4.5 Chloride 102 100 97 L Carbon Dioxide 26.8 26.4 26.0 Anion Gap 9.8 9.5 9.5 BUN 23.0 H 27.0 H 28.0 H Creatinine 0.65 L 0.85 1.02 Est GFR ( Amer) >60 >60 >60 Est GFR (Non-Af Amer) >60 >60 >60 BUN/Creatinine Ratio 35.4 31.8 27.5 Glucose 282 H 370 H 504 H* Calcium 9.5 9.8 10.0 Total Bilirubin 0.2 AST <5 L ALT 14 L Alkaline Phosphatase 246 H Total Protein 5.6 L Albumin 2.0 L Globulin 3.6 Albumin/Globulin Ratio 0.6 Discharge Plan Discharge Disposition: Home, Self-Care Condition: Good Discharge Medications: New levofloxacin 750 mg tablet 750 mg PO DAILY 7 Days Qty: 7 0RF albuterol sulfate [Ventolin HFA] 90 mcg/actuation HFA aerosol inhaler 2 inh inhalation QID PRN (Reason: shortness of breath or wheezing) Qty: 6.7 0RF prednisone 20 mg tablet 20 mg PO BID 5 Days Qty: 10 0RF metoprolol tartrate [Lopressor] 50 mg tablet 25 mg PO BID Qty: 60 0RF Continued aspirin 81 mg tablet,delayed release (DR/EC) 81 mg PO DAILY amlodipine-benazepril 10-20 mg capsule 1 cap PO DAILY ammonium lactate 12 % lotion 1 applic TOPICAL .twice a day atorvastatin 40 mg tablet 40 mg PO .evening glipizide 10 mg tablet 10 mg PO DAILY hydroxyzine HCl 25 mg tablet 25 mg PO DAILY quetiapine 50 mg tablet 50 mg PO .hs tamsulosin 0.4 mg capsule 0.4 mg PO DAILY Spiriva Respimat 2.5 mcg/actuation mist 2 puff INHALATION Q24H escitalopram oxalate 20 mg tablet 20 mg PO DAILY Changed insulin glargine [Lantus U-100 Insulin] 100 unit/mL solution 40 unit SUBCUT BID 30 Days Qty: 21 0RF Discontinued lisinopril 2.5 mg tablet 2.5 mg PO DAILY amoxicillin-pot clavulanate 875-125 mg Tablet 1 tab PO BID 7 Days Qty: 14 0RF Activity: resume usual activities as tolerated Diet: diabetic diet 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 Forms: Portal Instructions
--- NOTE | 2023-02-10 09:16 | SWNOTE1 ---
[facility] is able to able to accept, JUAN sent discharge orders to [facility]. JUAN called pt and sister to let them know.
== END 2023-02-09 17:15 | disposition home or self-care (01) | DRG 139 ==
LOC: ER 20:38 → MS 02-08 00:24 → ICU 02-08 02:13
PROVIDERS: Emergency Medicine; Admitting Provider Internal Medicine; Emergency Provider Emergency Medicine; PCP Internal Medicine; Visit Provider Internal Medicine
DX: J18.9 Pneumonia, unspecified organism (principal); J44.1 Chronic obstructive pulmonary disease with (acute) exacerbation; J44.0 Chronic obstructive pulmonary disease with (acute) lower respiratory infection; E11.65 Type 2 diabetes mellitus with hyperglycemia; E11.69 Type 2 diabetes mellitus with other specified complication; E78.5 Hyperlipidemia, unspecified; I10 Essential (primary) hypertension; R62.7 Adult failure to thrive; E87.1 Hypo-osmolality and hyponatremia; N40.0 Benign prostatic hyperplasia without lower urinary tract symptoms; F32.A Depression, unspecified; D72.829 Elevated white blood cell count, unspecified; T38.0X5A Adverse effect of glucocorticoids and synthetic analogues, initial encounter; T38.3X6A Underdosing of insulin and oral hypoglycemic [antidiabetic] drugs, initial encounter; Z60.2 Problems related to living alone; Z91.119 Patient's noncompliance with dietary regimen due to unspecified reason; Z79.84 Long term (current) use of oral hypoglycemic drugs; Z79.4 Long term (current) use of insulin; Z79.82 Long term (current) use of aspirin; Z79.899 Other long term (current) drug therapy; Z87.891 Personal history of nicotine dependence
CPT/HCPCS: 36415; 71045; 71250; 80048; 80053; 82947; 83036; 85025; 93005; 94640; 94761; 96365; 96366; 96367; 96375; 96376; 97161; 97165; 99285; J2920; Q3014

== ENCOUNTER 2023-02-17 19:38 | Observation (INO) | payer OTHER, SELFPAY ==
[2023-02-17] VITALS (20 sets, daily range): BP systolic 109–177; BP diastolic 70–120; PULSE 74–94; RESP 4–27; TEMP 36.3–37.6; O2SAT 83–98; BMI 18.3
--- NOTE | 2023-02-17 19:42 | XR_ITS ---
The [address] [address] Patient Name: BROOKLYNN STEPHEN MRN: [id number] date: 1960 Sex: M Assigned Patient Location: ER Current Patient Location: ED.MAIN Accession/Order Number: [id number] Exam Date: 02/17/2023 20:40 Report Date: 02/17/2023 20:51 At the request of: MANDI MORTON Procedure: XR chest 1V XR chest 1V 02/17/2023 8:40 PM EDT CLINICAL INDICATION: Chest pain COMPARISON: 02/07/2023 TECHNIQUE: Portable semiupright AP view of the chest. FINDINGS: There are no tubes or implants noted. The cardiomediastinal silhouette and pulmonary vasculature are within normal limits. Again seen is mild interstitial prominence in the lower lung zones similar to the prior examination. No focal parenchymal opacities concerning for consolidation. No pneumothorax or pleural effusion. No displaced rib fractures. Osseous structures demonstrate degenerative changes. Soft tissues are grossly normal. IMPRESSION: Stable mild interstitial prominence in the lower lung zones similar to the prior examination which may represent bronchiolitis/bronchitis. Electronically authenticated by: GRISEL VO Date: 02/17/2023 20:51
--- NOTE | 2023-02-17 19:46 | ED_ITS ---
Documented by User: DOMONIQUE Natarajan 02/17/23 21:42 HPI - Chest Pain General Chief Complaint: Chest Pain Stated Complaint: CHEST PAIN Time Seen by Provider: 02/17/23 19:40 Source: patient and EMR Mode of arrival: ambulance History of Present Illness HPI narrative: patient is a 62-year-old male who presents to the emergency department by ambulance for the evaluation of chest pain or shortness of breath. Patient has a history of chronic obstructive pulmonary disease, insulin-dependent diabetes, medical noncompliance, drug use. He was admitted to this hospital twice last month and was discharged last week from his most recent admission for chronic obstructive pulmonary disease and pneumonia. He does not have air conditioning in his home, it is over eighty degrees today and the patient became overheated and short of breath. He developed right anterior chest pain and called 911. He was brought in by EMS from [place] where he lives. He was given aspirin and nitroglycerin prior to arrival. He denies any chest pain at this time. He has had no fevers, sputum production, peripheral edema. He denies any drug or alcohol use today. He continues to smoke cigarettes. Related Data Home Medications Medication Instructions Recorded Confirmed amlodipine 10 mg-benazepril 20 mg 1 cap PO DAILY 01/31/23 01/31/23 capsule ammonium lactate 12 % lotion 1 applic topical .twice a day 01/31/23 01/31/23 aspirin 81 mg tablet,delayed 81 mg PO DAILY 01/31/23 01/31/23 release atorvastatin 40 mg tablet 40 mg PO .evening 01/31/23 01/31/23 escitalopram oxalate 20 mg tablet 20 mg PO DAILY 01/31/23 01/31/23 glipizide 10 mg tablet 10 mg PO DAILY 01/31/23 01/31/23 hydroxyzine HCl 25 mg tablet 25 mg PO DAILY 01/31/23 01/31/23 quetiapine 50 mg tablet 50 mg PO .hs 01/31/23 01/31/23 tamsulosin 0.4 mg capsule 0.4 mg PO DAILY 01/31/23 01/31/23 tiotropium bromide 2.5 2 puff inhalation Q24H 01/31/23 01/31/23 mcg/actuation mist for inhalation (Spiriva Respimat) Previous Rx's Medication Instructions Recorded albuterol sulfate 90 mcg/actuation 2 inh inhalation QID PRN shortness 02/09/23 aerosol inhaler (Ventolin HFA) of breath or wheezing #6.7 grams insulin glargine 100 unit/mL 40 unit (0.4 mL) subcut BID 30 02/09/23 subcutaneous solution (Lantus days #21 mL U-100 Insulin) levofloxacin 750 mg tablet 750 mg PO DAILY 7 days #7 tabs 02/09/23 metoprolol tartrate 50 mg tablet 25 mg PO BID #60 tabs 02/09/23 (Lopressor) prednisone 20 mg tablet 20 mg PO BID 5 days #10 tabs 02/09/23 Allergies Allergy/AdvReac Type Severity Reaction Status Date / Time No Known Allergies AdvReac Mild Verified 02/17/23 19:42 Review of Systems ROS Constitutional Denies: fever or chills Ears, nose, mouth, and throat Denies: throat pain Cardiovascular Reports: chest pain Respiratory Reports: shortness of breath and cough Gastrointestinal Denies: nausea or vomiting Musculoskeletal Denies: back pain Integumentary/Breast Denies: rash Neurological Denies: headache PFSH [facility] Medical History (Updated 02/17/23 @ 21:41 by DOMONIQUE Natarajan) Surgical History (Updated 02/07/23 @ 22:56 by Aleta Simpson) Social History Within the past year, how often did you have a drink containing alcohol: 4 or more times a week Within the past year, how many standard drinks containing alcohol did you have on a typical day: 1 or 2 Within the past year, how often did you have six or more drinks on one occasion: never Total score: 0 Score interpretation: Questions 2 and 3 are 0. It can be assumed that the patient's drinking is below the recommended limits. However, please confirm the accuracy of the patient's alcohol intake over the last few months. Smoking status: Current every day smoker What tobacco products do you use: cigarettes Pack-years instructions: Please document either packs per day or cigarettes per day in order for pack years to calculate correctly. If using both packs per day and cigarettes per day, please make sure that they denote the same thing. If they differ, pack- years will calculate based on packs per day. Packs Per Day Cigarettes Per Day 1/4 of a pack 5 1/2 a pack 10 3/4 of a pack 15 1 pack 20 1.5 pack 30 2 packs 40 2.5 packs 50 3 packs 60 Non-prescribed substance use: former substance user, crack/cocaine and opiods/painkillers Exam Narrative Exam Narrative: Gen.: Awake, alert, in no distress Head: Normocephalic, atraumatic ENT: Moist mucous membranes Respiratory: No respiratory distress, lungs clear bilaterally Cardio: Regular rate and rhythm Gastrointestinal: Abdomen is soft, nondistended and nontender to palpation Extremities: Moves extremities equally, no pedal edema Psych: Normal mood and affect Neuro: No focal neuro deficit Skin: Warm, dry, intact Constitutional Vital Signs - 24 hr 02/17/23 19:42 02/17/23 20:13 02/17/23 19:40 Temperature 99.6 F Pulse Rate 86 94 H Pulse Rate [Monitor] 92 H Respiratory Rate 20 18 27 H Blood Pressure Blood Pressure [Left Arm] 149/100 H Pulse Oximetry 93 L 95 96 Oxygen Delivery Method Room Air 02/17/23 19:41 02/17/23 20:00 02/17/23 20:30 Temperature Pulse Rate 89 83 83 Pulse Rate [Monitor] Respiratory Rate 21 20 17 Blood Pressure 149/100 H 109/70 143/91 H Blood Pressure [Left Arm] Pulse Oximetry 83 L Oxygen Delivery Method 02/17/23 21:00 02/17/23 20:10 02/17/23 21:58 Temperature Pulse Rate 79 Pulse Rate [Monitor] Respiratory Rate 19 Blood Pressure 154/104 H Blood Pressure [Left Arm] Pulse Oximetry 94 L 98 Oxygen Delivery Method Room Air 02/17/23 21:00 02/17/23 21:30 02/17/23 22:01 Temperature Pulse Rate 77 86 80 Pulse Rate [Monitor] Respiratory Rate 18 20 19 Blood Pressure 154/104 H 162/106 H 177/120 H Blood Pressure [Left Arm] Pulse Oximetry Oxygen Delivery Method 02/17/23 22:05 02/17/23 22:05 02/17/23 22:30 Temperature Pulse Rate 76 74 74 Pulse Rate [Monitor] Respiratory Rate 15 15 7 L Blood Pressure 149/110 H 149/110 H 163/108 H Blood Pressure [Left Arm] Pulse Oximetry Oxygen Delivery Method 02/17/23 23:02 Temperature Pulse Rate 78 Pulse Rate [Monitor] Respiratory Rate 6 L Blood Pressure Blood Pressure [Left Arm] Pulse Oximetry Oxygen Delivery Method Course Vital Signs Vital signs: Vital Signs Pulse Rate 94 H 02/17/23 19:40 Respiratory Rate 27 H 02/17/23 19:40 Pulse Oximetry 96 02/17/23 19:40 Temperature 99.6 F 02/17/23 19:42 Pulse Rate 78 02/17/23 23:02 Respiratory Rate 6 L 02/17/23 23:02 Blood Pressure 163/108 H 02/17/23 22:30 Pulse Oximetry 98 02/17/23 21:58 Oxygen Delivery Method Room Air 02/17/23 20:10 MDM - Chest Pain MDM Narrative Medical decision making narrative: on arrival to the emergency department, cardiac workup was initiated and the patient has no EKG changes, normal troponin and BNP. His labs look stable to improved from previous admission. He does have hyperglycemia and he is a noncompliant insulin-dependent diabetic. Chest x-ray shows no evidence of acute cardiopulmonary changes. We will seek admission to Dr. solano for hospitalist service for chest pain, chronic obstructive pulmonary disease exacerbation. Repeat troponin is pending and will be drawn prior to admission. Case is turned over to attending physician to reevaluate the labs for admission. Medical Records Data Attestation: I reviewed the patient's medical records. Lab Data Attestation: I reviewed the patient's lab results. Labs: Lab Results 02/17/23 02/17/23 02/17/23 Range/Units 20:00 20:05 22:26 WBC 11.3 H (4.0-11.0) 10^3/uL RBC 4.45 L (4.70-6.10) 10^6/uL Hgb 13.8 L (14.0-18.0) g/dL Hct 40.1 L (42.0-54.0) % MCV 90.1 (80.0-94.0) fL MCH 31.0 (25.9-34.0) pg MCHC 34.4 (29.9-35.2) g/dL RDW 13.1 (11.0-15.0) % Plt Count 294 (150-450) 10^3/uL MPV 10.1 (9.5-13.5) fL Neut % (Auto) 68.3 (43.0-75.0) % Lymph % (Auto) 23.5 (20.5-60.0) % [place] % (Auto) 5.7 (1.7-12.0) % Eos % (Auto) 1.1 (0.9-7.0) % Baso % (Auto) 0.4 (0.2-2.0) % Neut # (Auto) 7.7 H (1.4-6.5) 10^3/uL Lymph # (Auto) 2.7 (1.2-3.8) 10^3/uL [place] # (Auto) 0.6 (0.3-0.8) 10^3/uL Eos # (Auto) 0.1 (0.0-0.7) 10^3/uL Baso # (Auto) 0.1 (0.0-0.1) 10^3/uL Abs Immat Gran (auto) 0.11 H (0.00-0.03) 10^3/uL Imm/Tot Granulo (auto) 1.0 H (0.0-0.5) % PT 9.8 (9.0-11.6) sec INR <0.93 APTT 27.4 (22.3-36.2) sec Sodium 131 L (136-145) mmol/L Potassium 4.0 (3.5-5.1) mmol/L Chloride 100 (98-107) mmol/L Carbon Dioxide 27.3 (21.0-32.0) mmol/L Anion Gap 7.7 BUN 19.0 H (7.0-18.0) mg/dL Creatinine 0.90 (0.70-1.30) mg/dL Est GFR ( Amer) >60 (>=60) Est GFR (Non-Af Amer) >60 (>=60) BUN/Creatinine Ratio 21.1 Glucose 579 H* (74-106) mg/dL Lactate 2.1 H (0.4-2.0) mmol/L Calcium 9.7 (8.5-10.1) mg/dL Total Bilirubin 0.2 (0.2-1.0) mg/dL AST 10 L (15-37) U/L ALT 29 (16-63) U/L Alkaline Phosphatase 316 H (46-116) U/L Troponin I High Sens 5.5 5.5 (4.0-76.1) pg/mL NT-Pro-B Natriuret Pep 132.0 (<=900.0) pg/mL Total Protein 7.0 (6.4-8.2) g/dL Albumin 2.7 L (3.4-5.0) g/dL Globulin 4.3 g/dL Albumin/Globulin Ratio 0.6 Urine Opiates Screen Negative (NEGATIVE) Ur Buprenorphine Scrn Negative (NEGATIVE) Ur Oxycodone Screen Negative (NEGATIVE) Urine Methadone Screen Negative (NEGATIVE) Ur Propoxyphene Screen Negative (NEGATIVE) Ur Barbiturates Screen Negative (NEGATIVE) U Tricyclic Antidepress Negative (NEGATIVE) Ur Phencyclidine Scrn Negative (NEGATIVE) Ur Amphetamines Screen Positive A (NEGATIVE) U Methamphetamines Scrn Positive A (NEGATIVE) U Benzodiazepines Scrn Negative (NEGATIVE) Urine Cocaine Screen Negative (NEGATIVE) U Cannabinoids Screen Positive A (NEGATIVE) Ethanol Quant <3 mg/dL SARS-CoV-2 (PCR) Negative (NEGATIVE) Imaging Data Chest x-ray: Attestation: I have reviewed the pertinent imaging results. Radiologist's impression: Procedure: XR chest 1V XR chest 1V 02/17/2023 8:40 PM EDT CLINICAL INDICATION: Chest pain COMPARISON: 02/07/2023 TECHNIQUE: Portable semiupright AP view of the chest. FINDINGS: There are no tubes or implants noted. The cardiomediastinal silhouette and pulmonary vasculature are within normal limits. Again seen is mild interstitial prominence in the lower lung zones similar to the prior examination. No focal parenchymal opacities concerning for consolidation. No pneumothorax or pleural effusion. No displaced rib fractures. Osseous structures demonstrate degenerative changes. Soft tissues are grossly normal. IMPRESSION: Stable mild interstitial prominence in the lower lung zones similar to the prior examination which may represent bronchiolitis/bronchitis. Electronically authenticated by: GRISEL VO Date: 02/17/2023 20:51 ECG Data Attestation: I personally reviewed and interpreted this ECG as follows: (normal sinus rhythm at a rate of eighty-five, no acute ST elevation or ectopy. EKG reviewed by attending physician) ECG interpretation date: 02/17/23 Heart Score History: Slightly/Non-Suspicious ECG: Normal Age: >45-<65 years Risk Factors: >3 Risk Factors/ HX of CAD:2 Troponin: <Normal Limit Total Heart Score Recommendations & Risks:: 3 Discharge Plan Discharge Chief Complaint: Chest Pain Clinical Impression: Chest pain, Drug abuse, COPD exacerbation Patient Disposition: Admitted as Observation Time of Disposition Decision: 21:41 Condition: Good Documented by User: Godwin Hawkins 02/17/23 23:15 HPI - Chest Pain General Chief Complaint: Chest Pain Stated Complaint: CHEST PAIN Time Seen by Provider: 02/17/23 19:40 Related Data Home Medications Medication Instructions Recorded Confirmed amlodipine 10 mg-benazepril 20 mg 1 cap PO DAILY 01/31/23 01/31/23 capsule ammonium lactate 12 % lotion 1 applic topical .twice a day 01/31/23 01/31/23 aspirin 81 mg tablet,delayed 81 mg PO DAILY 01/31/23 01/31/23 release atorvastatin 40 mg tablet 40 mg PO .evening 01/31/23 01/31/23 escitalopram oxalate 20 mg tablet 20 mg PO DAILY 01/31/23 01/31/23 glipizide 10 mg tablet 10 mg PO DAILY 01/31/23 01/31/23 hydroxyzine HCl 25 mg tablet 25 mg PO DAILY 01/31/23 01/31/23 quetiapine 50 mg tablet 50 mg PO .hs 01/31/23 01/31/23 tamsulosin 0.4 mg capsule 0.4 mg PO DAILY 01/31/23 01/31/23 tiotropium bromide 2.5 2 puff inhalation Q24H 01/31/23 01/31/23 mcg/actuation mist for inhalation (Spiriva Respimat) Previous Rx's Medication Instructions Recorded albuterol sulfate 90 mcg/actuation 2 inh inhalation QID PRN shortness 02/09/23 aerosol inhaler (Ventolin HFA) of breath or wheezing #6.7 grams insulin glargine 100 unit/mL 40 unit (0.4 mL) subcut BID 30 02/09/23 subcutaneous solution (Lantus days #21 mL U-100 Insulin) levofloxacin 750 mg tablet 750 mg PO DAILY 7 days #7 tabs 02/09/23 metoprolol tartrate 50 mg tablet 25 mg PO BID #60 tabs 02/09/23 (Lopressor) prednisone 20 mg tablet 20 mg PO BID 5 days #10 tabs 02/09/23 Allergies Allergy/AdvReac Type Severity Reaction Status Date / Time No Known Allergies AdvReac Mild Verified 02/17/23 19:42 [facility] Medical History (Updated 02/17/23 @ 21:41 by DOMONIQUE Natarajan) Surgical History (Updated 02/07/23 @ 22:56 by Aleta Simpson) Social History Within the past year, how often did you have a drink containing alcohol: 4 or more times a week Within the past year, how many standard drinks containing alcohol did you have on a typical day: 1 or 2 Within the past year, how often did you have six or more drinks on one occasion: never Total score: 0 Score interpretation: Questions 2 and 3 are 0. It can be assumed that the patient's drinking is below the recommended limits. However, please confirm the accuracy of the patient's alcohol intake over the last few months. Smoking status: Current every day smoker What tobacco products do you use: cigarettes Pack-years instructions: Please document either packs per day or cigarettes per day in order for pack years to calculate correctly. If using both packs per day and cigarettes per day, please make sure that they denote the same thing. If they differ, pack- years will calculate based on packs per day. Packs Per Day Cigarettes Per Day 1/4 of a pack 5 1/2 a pack 10 3/4 of a pack 15 1 pack 20 1.5 pack 30 2 packs 40 2.5 packs 50 3 packs 60 Non-prescribed substance use: former substance user, crack/cocaine and opiods/painkillers Exam Constitutional Vital Signs - 24 hr 02/17/23 19:42 02/17/23 20:13 02/17/23 19:40 Temperature 99.6 F Pulse Rate 86 94 H Pulse Rate [Monitor] 92 H Respiratory Rate 20 18 27 H Blood Pressure Blood Pressure [Left Arm] 149/100 H Pulse Oximetry 93 L 95 96 Oxygen Delivery Method Room Air 02/17/23 19:41 02/17/23 20:00 02/17/23 20:30 Temperature Pulse Rate 89 83 83 Pulse Rate [Monitor] Respiratory Rate 21 20 17 Blood Pressure 149/100 H 109/70 143/91 H Blood Pressure [Left Arm] Pulse Oximetry 83 L Oxygen Delivery Method 02/17/23 21:00 02/17/23 20:10 02/17/23 21:58 Temperature Pulse Rate 79 Pulse Rate [Monitor] Respiratory Rate 19 Blood Pressure 154/104 H Blood Pressure [Left Arm] Pulse Oximetry 94 L 98 Oxygen Delivery Method Room Air 02/17/23 21:00 02/17/23 21:30 02/17/23 22:01 Temperature Pulse Rate 77 86 80 Pulse Rate [Monitor] Respiratory Rate 18 20 19 Blood Pressure 154/104 H 162/106 H 177/120 H Blood Pressure [Left Arm] Pulse Oximetry Oxygen Delivery Method 02/17/23 22:05 02/17/23 22:05 02/17/23 22:30 Temperature Pulse Rate 76 74 74 Pulse Rate [Monitor] Respiratory Rate 15 15 7 L Blood Pressure 149/110 H 149/110 H 163/108 H Blood Pressure [Left Arm] Pulse Oximetry Oxygen Delivery Method 02/17/23 23:02 Temperature Pulse Rate 78 Pulse Rate [Monitor] Respiratory Rate 6 L Blood Pressure Blood Pressure [Left Arm] Pulse Oximetry Oxygen Delivery Method Course Vital Signs Vital signs: Vital Signs Pulse Rate 94 H 02/17/23 19:40 Respiratory Rate 27 H 02/17/23 19:40 Pulse Oximetry 96 02/17/23 19:40 Temperature 99.6 F 02/17/23 19:42 Pulse Rate 78 02/17/23 23:02 Respiratory Rate 6 L 02/17/23 23:02 Blood Pressure 163/108 H 02/17/23 22:30 Pulse Oximetry 98 02/17/23 21:58 Oxygen Delivery Method Room Air 02/17/23 20:10 MDM - Chest Pain MDM Narrative Medical decision making narrative: on arrival to the emergency department, cardiac workup was initiated and the patient has no EKG changes, normal troponin and BNP. His labs look stable to improved from previous admission. He does have hyperglycemia and he is a noncompliant insulin-dependent diabetic. Chest x-ray shows no evidence of acute cardiopulmonary changes. We will seek admission to Dr. solano for hospitalist service for chest pain, chronic obstructive pulmonary disease exacerbation. Repeat troponin is pending and will be drawn prior to admission. Case is turned over to attending physician to reevaluate the labs for admission. Repeat troponin acceptable so the patient was taken upstairs. - DO José Miguel Lab Data Labs: Lab Results 02/17/23 02/17/23 02/17/23 Range/Units 20:00 20:05 22:26 WBC 11.3 H (4.0-11.0) 10^3/uL RBC 4.45 L (4.70-6.10) 10^6/uL Hgb 13.8 L (14.0-18.0) g/dL Hct 40.1 L (42.0-54.0) % MCV 90.1 (80.0-94.0) fL MCH 31.0 (25.9-34.0) pg MCHC 34.4 (29.9-35.2) g/dL RDW 13.1 (11.0-15.0) % Plt Count 294 (150-450) 10^3/uL MPV 10.1 (9.5-13.5) fL Neut % (Auto) 68.3 (43.0-75.0) % Lymph % (Auto) 23.5 (20.5-60.0) % [place] % (Auto) 5.7 (1.7-12.0) % Eos % (Auto) 1.1 (0.9-7.0) % Baso % (Auto) 0.4 (0.2-2.0) % Neut # (Auto) 7.7 H (1.4-6.5) 10^3/uL Lymph # (Auto) 2.7 (1.2-3.8) 10^3/uL [place] # (Auto) 0.6 (0.3-0.8) 10^3/uL Eos # (Auto) 0.1 (0.0-0.7) 10^3/uL Baso # (Auto) 0.1 (0.0-0.1) 10^3/uL Abs Immat Gran (auto) 0.11 H (0.00-0.03) 10^3/uL Imm/Tot Granulo (auto) 1.0 H (0.0-0.5) % PT 9.8 (9.0-11.6) sec INR <0.93 APTT 27.4 (22.3-36.2) sec Sodium 131 L (136-145) mmol/L Potassium 4.0 (3.5-5.1) mmol/L Chloride 100 (98-107) mmol/L Carbon Dioxide 27.3 (21.0-32.0) mmol/L Anion Gap 7.7 BUN 19.0 H (7.0-18.0) mg/dL Creatinine 0.90 (0.70-1.30) mg/dL Est GFR ( Amer) >60 (>=60) Est GFR (Non-Af Amer) >60 (>=60) BUN/Creatinine Ratio 21.1 Glucose 579 H* (74-106) mg/dL Lactate 2.1 H (0.4-2.0) mmol/L Calcium 9.7 (8.5-10.1) mg/dL Total Bilirubin 0.2 (0.2-1.0) mg/dL AST 10 L (15-37) U/L ALT 29 (16-63) U/L Alkaline Phosphatase 316 H (46-116) U/L Troponin I High Sens 5.5 5.5 (4.0-76.1) pg/mL NT-Pro-B Natriuret Pep 132.0 (<=900.0) pg/mL Total Protein 7.0 (6.4-8.2) g/dL Albumin 2.7 L (3.4-5.0) g/dL Globulin 4.3 g/dL Albumin/Globulin Ratio 0.6 Urine Opiates Screen Negative (NEGATIVE) Ur Buprenorphine Scrn Negative (NEGATIVE) Ur Oxycodone Screen Negative (NEGATIVE) Urine Methadone Screen Negative (NEGATIVE) Ur Propoxyphene Screen Negative (NEGATIVE) Ur Barbiturates Screen Negative (NEGATIVE) U Tricyclic Antidepress Negative (NEGATIVE) Ur Phencyclidine Scrn Negative (NEGATIVE) Ur Amphetamines Screen Positive A (NEGATIVE) U Methamphetamines Scrn Positive A (NEGATIVE) U Benzodiazepines Scrn Negative (NEGATIVE) Urine Cocaine Screen Negative (NEGATIVE) U Cannabinoids Screen Positive A (NEGATIVE) Ethanol Quant <3 mg/dL SARS-CoV-2 (PCR) Negative (NEGATIVE) Heart Score Total Heart Score Recommendations & Risks:: 3 Discharge Plan Discharge Chief Complaint: Chest Pain Clinical Impression: Chest pain, Drug abuse, COPD exacerbation Patient Disposition: Admitted as Observation Time of Disposition Decision: 21:41 Condition: Good
--- NOTE | 2023-02-17 20:12 | ECG_ITS ---
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
[2023-02-17] MEDS: ALBUTEROL SULFATE 2.5 MG/3 ML VIAL NEB IH (20:13)
[2023-02-17 20:23] LABS: Basophils Absolute Auto 0.1 10^3/uL (0.0-0.1); Basophils Percent Auto 0.4 % (0.2-2.0); Eosinophils Absolute Auto 0.1 10^3/uL (0.0-0.7); Eosinophils Percent Auto 1.1 % (0.9-7.0); Hematocrit 40.1 % (42.0-54.0); Hemoglobin 13.8 g/dL (14.0-18.0); Immature Granulocytes Abs Auto 0.11 10^3/uL (0.00-0.03); Lymphocytes Absolute Auto 2.7 10^3/uL (1.2-3.8); Lymphocytes Percent Auto 23.5 % (20.5-60.0); Mean Corpuscular HGB Conc 34.4 g/dL (29.9-35.2); Mean Corpuscular Volume 90.1 fL (80.0-94.0); Mean Platelet Volume 10.1 fL (9.5-13.5); Monocytes Absolute Auto 0.6 10^3/uL (0.3-0.8); Monocytes Percent Auto 5.7 % (1.7-12.0); Neutrophils Absolute Auto 7.7 10^3/uL (1.4-6.5); Neutrophils Percent Auto 68.3 % (43.0-75.0); Platelet Count 294 10^3/uL (150-450); Red Blood Count 4.45 10^6/uL (4.70-6.10); Red Cell Distribution Width 13.1 % (11.0-15.0); White Blood Count 11.3 10^3/uL (4.0-11.0)
[2023-02-17 20:34] LABS: Amphetamine Screen Urine POSITIVE (NEGATIVE); Barbiturates Screen Urine NEGATIVE (NEGATIVE); Benzodiazepines Screen Urine NEGATIVE (NEGATIVE); Buprenorphine Screen Urine NEGATIVE (NEGATIVE); Cannabinoid Screen Urine POSITIVE (NEGATIVE); Cocaine Screen Urine NEGATIVE (NEGATIVE); Methadone Screen Urine NEGATIVE (NEGATIVE); Methamphetamines Screen Urine POSITIVE (NEGATIVE); Opiate Screen Urine NEGATIVE (NEGATIVE); Oxycodone Screen Urine NEGATIVE (NEGATIVE); Phencyclidine Screen Urine NEGATIVE (NEGATIVE); Tricyclic Antidepressant Urine NEGATIVE (NEGATIVE)
[2023-02-17 20:37] LABS: SARS-CoV-2 Ag NEGATIVE (NEGATIVE)
[2023-02-17 20:38] LABS: Partial Thromboplastin Time 27.4 sec (22.3-36.2); Prothrombin Time 9.8 sec (9.0-11.6)
[2023-02-17 20:39] LABS: INR <0.93
[2023-02-17 20:40] LABS: Lactate/Lactic Acid 2.1 mmol/L (0.4-2.0)
[2023-02-17 20:45] LABS: Ethanol <3 mg/dL
[2023-02-17 20:52] LABS: Alanine Aminotransferase 29 U/L (16-63); Albumin Globulin Ratio 0.6; Albumin Level 2.7 g/dL (3.4-5.0); Alkaline Phosphatase 316 U/L (46-116); Anion Gap 7.7; Aspartate Amino Transferase 10 U/L (15-37); BUN Creatinine Ratio 21.1; Bilirubin Total 0.2 mg/dL (0.2-1.0); Calcium 9.7 mg/dL (8.5-10.1); Carbon Dioxide 27.3 mmol/L (21.0-32.0); Chloride 100 mmol/L (98-107); Estimated GFR (African America >60 (>=60); Estimated GFR (Non-African Ame >60 (>=60); Globulin 4.3 g/dL; Sodium 131 mmol/L (136-145); Troponin I High Sensitivity 5.5 pg/mL (4.0-76.1)
[2023-02-17 20:57] LABS: Glucose 579 mg/dL (74-106)
--- NOTE | 2023-02-17 21:21 | PC.NURSE ---
IV started by EMS
[2023-02-17] MEDS: METHYLPREDNISOLONE SOD SUCC PF 125 MG/2 ML VIAL IVP (21:53)
[2023-02-17 22:52] LABS: Troponin I High Sensitivity 5.5 pg/mL (4.0-76.1)
[2023-02-18] VITALS (8 sets, daily range): BP systolic 136–145; BP diastolic 97–104; PULSE 67–85; RESP 7–16; TEMP 36.3–36.4; O2SAT 95–97
--- NOTE | 2023-02-18 00:43 | P.PN_ITS ---
Progress Note: Subjective Subjective Interval history: CC: Chest pain HPI: This is a 63 years old white male with multiple comorbidities and well no to this hospital who presents to the emergency room for evaluation of above complaints. Patient's past medical history significant for chronic obstructive pulmonary disease, diabetes type 2, noncompliance, polysubstance abuse. Patient has been discharged last week after recent admission for COPD exacerbation and pneumonia. Patient did finish antibiotics. Patient reports that at home he did not have an air conditioner, started to feel short of breath and developed chest pain. He describes his pain is sharp, mostly on the right side, he called 911. He has been given aspirin and nitroglycerin by ambulance team. His condition stabilized in the emergency room. Currently he is chest pain-free. 2 sets of cardiac enzymes are negative. Exam Narrative Exam Narrative: Physical Exam: Not in distress, pleasant, thin stature, frail, muscle wasting Head - atraumatic, eyes - pupils equal, round, reactive to light, extra ocular movement intact, MMM Neck - supple, thyroid not enlarged, LN not palpated Lungs -coarse breath sounds bilaterally, diminished at bases CVS - heart sounds S1, S2, no additional murmurs gallop, regular rate and rhythm Gastrointestinal?abdomen is soft, non-tender, non-distended, no organomegaly, positive bowel sounds Extremities no clubbing, cyanosis or edema Neurological?cranial nerve II?XII grossly intact, no meningeal signs, no cerebellar signs, no sensory deficit Musculoskeletal - joints, no effusions, ROM preserved Dermatological - the skin dry, warm, no rashes Psychiatric?patient is AAO X3, patient has normal affect Constitutional Vital Signs - 24 hr 02/17/23 19:42 02/17/23 20:13 02/17/23 19:40 Temperature 99.6 F Pulse Rate 86 94 H Pulse Rate [Monitor] 92 H Respiratory Rate 20 18 27 H Blood Pressure Blood Pressure [Left Arm] 149/100 H Pulse Oximetry 93 L 95 96 Oxygen Delivery Method Room Air 02/17/23 19:41 02/17/23 20:00 02/17/23 20:30 Temperature Pulse Rate 89 83 83 Pulse Rate [Monitor] Respiratory Rate 21 20 17 Blood Pressure 149/100 H 109/70 143/91 H Blood Pressure [Left Arm] Pulse Oximetry 83 L Oxygen Delivery Method 02/17/23 21:00 02/17/23 20:10 02/17/23 21:58 Temperature Pulse Rate 79 Pulse Rate [Monitor] Respiratory Rate 19 Blood Pressure 154/104 H Blood Pressure [Left Arm] Pulse Oximetry 94 L 98 Oxygen Delivery Method Room Air 02/17/23 21:00 02/17/23 21:30 02/17/23 22:01 Temperature Pulse Rate 77 86 80 Pulse Rate [Monitor] Respiratory Rate 18 20 19 Blood Pressure 154/104 H 162/106 H 177/120 H Blood Pressure [Left Arm] Pulse Oximetry Oxygen Delivery Method 02/17/23 22:05 02/17/23 22:05 02/17/23 22:30 Temperature Pulse Rate 76 74 74 Pulse Rate [Monitor] Respiratory Rate 15 15 7 L Blood Pressure 149/110 H 149/110 H 163/108 H Blood Pressure [Left Arm] Pulse Oximetry Oxygen Delivery Method 02/17/23 23:02 02/17/23 23:55 02/17/23 23:55 Temperature 97.4 F L Pulse Rate 78 75 Pulse Rate [Monitor] 75 Respiratory Rate 6 L 18 16 Blood Pressure Blood Pressure [Left Arm] 157/107 H Pulse Oximetry 98 98 Oxygen Delivery Method Room Air Room Air 02/17/23 23:55 Temperature 97.4 F L Pulse Rate 75 Pulse Rate [Monitor] Respiratory Rate 16 Blood Pressure Blood Pressure [Left Arm] Pulse Oximetry 98 Oxygen Delivery Method Room Air Progress Note: Objective Labs Labs: Short CBC 02/17/23 Range/Units 20:00 WBC 11.3 H (4.0-11.0) 10^3/uL Hgb 13.8 L (14.0-18.0) g/dL Hct 40.1 L (42.0-54.0) % Plt Count 294 (150-450) 10^3/uL BMP 02/17/23 20:00 Sodium 131 L Potassium 4.0 Chloride 100 Carbon Dioxide 27.3 BUN 19.0 H Creatinine 0.90 Glucose 579 H* Calcium 9.7 Liver Function 02/17/23 Range/Units 20:00 Total Bilirubin 0.2 (0.2-1.0) mg/dL AST 10 L (15-37) U/L ALT 29 (16-63) U/L Alkaline Phosphatase 316 H (46-116) U/L Albumin 2.7 L (3.4-5.0) g/dL Progress Note: A&P Assessment and Plan (1) Chest pain: Assessment and Plan: Patient has multiple risk factors for coronary artery disease. Patient is noncompliant. History of drug abuse including methamphetamine. Currently chest pain-free. 2 sets of cardiac enzymes negative. Electrocardiogram did not reveal any ischemic changes. Resume home medications. Patient has had multiple work-ups in the past. (2) COPD exacerbation: Assessment and Plan: COPD currently seems to be well controlled. Patient's pulse ox is reasonable on room air. I am going to continue with metered-dose inhalers (3) Drug abuse: Assessment and Plan: Patient counseled to stop (4) Insulin dependent type 2 diabetes mellitus, uncontrolled: Assessment and Plan: I am going to continue with ADA diet. I ordered Accu-Cheks 3 times daily AC plus at bedtime. I am going to continue with home dose of Lantus and coverage with insulin sliding scale. Oral hypoglycemic agent is going to be held for no w. (5) Failure to thrive: Assessment and Plan: Multifactorial and related to above. Continue to treat underlying causes. community placement worker consulted to assist with possible placement Qualifiers: Failure to thrive age range: in adult Qualified Code(s): R62.7 - Adult failure to thrive (6) Hypercholesteremia: Assessment and Plan: Resume home dose of statin Telemedicine Attestation Telemedicine Attestation I conducted this encounter from [[place]] via secure live, [id number] video conference with the patient, located at [facility] with [chest pain]. Prior to the interview, the risks and benefits of telemedicine were discussed with the patient and verbal consent was obtained. As the provider for the telehealth service, I attest that I introduced myself to the patient, provided my credentials, disclosed by location and determined that based on a review of the patient's chart and discussion with members of the patient's treatment team, telemedicine via real-time, 2 way, and interactive audio and video platform is an appropriate and effective means of providing the service. ?The patient and I mutually agree this visit is appropriate for telemedicine. ?The virtual encounter was taken place from? [place], [place]. ?The encounter took approximately 35 minutes. ?The nurse was present during the entire time and I was able to move the stethoscope in appropriate directions. ?The patient was evaluated at the Hospital ? Portions of this note may be dictated using Dragon voice recognition software. Variances in spelling and vocabulary are possible and unintentional. Not all errors may be caught and/or corrected. Please notify the author if any discrepancies are noted and/or if the meaning of any statement is unclear.? ? Patient verbally consented for treatment via video visit with patient currently located at [facility] and provider located in [facility]
[2023-02-18] MEDS: METOPROLOL TARTRATE 50 MG TABLET 25 MG PO ×2 (02:44→09:07)
[2023-02-18] MEDS: INSULIN DETEMIR 300 UNIT/3 ML INSULN.PEN 40 UNIT SUBQ ×2 (02:45→09:10)
[2023-02-18] MEDS: QUETIAPINE FUMARATE 25 MG TABLET 50 MG PO (02:45)
[2023-02-18 08:06] LABS: Glucose 556 mg/dL (74-106)
[2023-02-18] MEDS: GLIPIZIDE 10 MG TABLET PO (09:07)
[2023-02-18] MEDS: LISINOPRIL 20 MG TABLET PO (09:07)
[2023-02-18] MEDS: TAMSULOSIN HCL 0.4 MG CAPSULE PO (09:08)
[2023-02-18] MEDS: ESCITALOPRAM 10 MG TABLET 20 MG PO (09:08)
[2023-02-18] MEDS: AMLODIPINE BESYLATE 5 MG TABLET 10 MG PO (09:08)
[2023-02-18] MEDS: ASPIRIN 81 MG TABLET.DR PO (09:08)
[2023-02-18] MEDS: INSULIN ASPART 300 UNIT/3 ML PEN 15 UNIT SUBQ (09:09)
--- NOTE | 2023-02-18 10:52 | P.HP_ITS ---
H&P: HPI History of Present Illness Chief complaint: Chest pain Narrative: 62 y/o male to ER with chest pain. History of COPD and admitted 02/07-02/09 for exacerbation. Completed antibiotics and steroids. No A/C at home and over 80 degrees inside. Became very hot and developed SOB. Developed pain and heavines s in right side chest and to ER. Normal SpO2 on room air and afebrile. Troponin negative and admitted. Feels well this am. No furhter pain. Mild SOB but at baseline. Ambulating around room without difficulty. Review of Systems ROS Constitutional Denies: fever, chills or night sweats Cardiovascular Reports: chest pain; Denies: palpitations or edema Respiratory Reports: shortness of breath; Denies: cough or wheezing Gastrointestinal Denies: abdominal pain, nausea, vomiting or diarrhea Genitourinary Denies: painful urination [facility] Medical History (Updated 02/17/23 @ 21:41 by DOMONIQUE Natarajan) Surgical History (Updated 02/07/23 @ 22:56 by Aleta Simpson) Social History Within the past year, how often did you have a drink containing alcohol: 4 or more times a week Within the past year, how many standard drinks containing alcohol did you have on a typical day: 1 or 2 Within the past year, how often did you have six or more drinks on one occasion: never Total score: 0 Score interpretation: Questions 2 and 3 are 0. It can be assumed that the patient's drinking is below the recommended limits. However, please confirm the accuracy of the patient's alcohol intake over the last few months. Smoking status: Current every day smoker What tobacco products do you use: cigarettes Pack-years instructions: Please document either packs per day or cigarettes per day in order for pack years to calculate correctly. If using both packs per day and cigarettes per day, please make sure that they denote the same thing. If they differ, pack- years will calculate based on packs per day. Packs Per Day Cigarettes Per Day 1/4 of a pack 5 1/2 a pack 10 3/4 of a pack 15 1 pack 20 1.5 pack 30 2 packs 40 2.5 packs 50 3 packs 60 Non-prescribed substance use: former substance user, crack/cocaine and opiods/painkillers Meds Home Medications and Allergies Home Medications Medication Instructions Recorded Confirmed Type amlodipine 10 mg-benazepril 20 mg 1 cap PO DAILY 01/31/23 02/17/23 History capsule ammonium lactate 12 % lotion 1 applic topical .twice a day 01/31/23 02/17/23 History aspirin 81 mg tablet,delayed 81 mg PO DAILY 01/31/23 02/17/23 History release atorvastatin 40 mg tablet 40 mg PO .evening 01/31/23 02/17/23 History escitalopram oxalate 20 mg tablet 20 mg PO DAILY 01/31/23 02/17/23 History glipizide 10 mg tablet 10 mg PO DAILY 01/31/23 02/17/23 History hydroxyzine HCl 25 mg tablet 25 mg PO DAILY 01/31/23 02/17/23 History quetiapine 50 mg tablet 50 mg PO .hs 01/31/23 02/17/23 History tamsulosin 0.4 mg capsule 0.4 mg PO DAILY 01/31/23 02/17/23 History tiotropium bromide 2.5 2 puff inhalation Q24H 01/31/23 02/17/23 History mcg/actuation mist for inhalation (Spiriva Respimat) albuterol sulfate 90 mcg/actuation 2 inh inhalation QID PRN shortness 02/09/23 02/17/23 Rx aerosol inhaler (Ventolin HFA) of breath or wheezing #6.7 grams insulin glargine 100 unit/mL 40 unit (0.4 mL) subcut BID 30 02/09/23 02/17/23 Rx subcutaneous solution (Lantus days #21 mL U-100 Insulin) metoprolol tartrate 50 mg tablet 25 mg PO BID #60 tabs 02/09/23 02/17/23 Rx (Lopressor) Allergies Allergy/AdvReac Type Severity Reaction Status Date / Time No Known Allergies AdvReac Mild Verified 02/17/23 19:42 Exam Constitutional Vital Signs - 24 hr 02/17/23 19:42 02/17/23 20:13 02/17/23 19:40 Temperature 99.6 F Pulse Rate 86 94 H Pulse Rate [Monitor] 92 H Respiratory Rate 20 18 27 H Blood Pressure Blood Pressure [Left Arm] 149/100 H Pulse Oximetry 93 L 95 96 Oxygen Delivery Method Room Air 02/17/23 19:41 02/17/23 20:00 02/17/23 20:30 Temperature Pulse Rate 89 83 83 Pulse Rate [Monitor] Respiratory Rate 21 20 17 Blood Pressure 149/100 H 109/70 143/91 H Blood Pressure [Left Arm] Pulse Oximetry 83 L Oxygen Delivery Method 02/17/23 21:00 02/17/23 20:10 02/17/23 21:58 Temperature Pulse Rate 79 Pulse Rate [Monitor] Respiratory Rate 19 Blood Pressure 154/104 H Blood Pressure [Left Arm] Pulse Oximetry 94 L 98 Oxygen Delivery Method Room Air 02/17/23 21:00 02/17/23 21:30 02/17/23 22:01 Temperature Pulse Rate 77 86 80 Pulse Rate [Monitor] Respiratory Rate 18 20 19 Blood Pressure 154/104 H 162/106 H 177/120 H Blood Pressure [Left Arm] Pulse Oximetry Oxygen Delivery Method 02/17/23 22:05 02/17/23 22:05 02/17/23 22:30 Temperature Pulse Rate 76 74 74 Pulse Rate [Monitor] Respiratory Rate 15 15 7 L Blood Pressure 149/110 H 149/110 H 163/108 H Blood Pressure [Left Arm] Pulse Oximetry Oxygen Delivery Method 02/17/23 23:02 02/17/23 23:55 02/17/23 23:55 Temperature 97.4 F L Pulse Rate 78 75 Pulse Rate [Monitor] 75 Respiratory Rate 6 L 18 16 Blood Pressure Blood Pressure [Left Arm] 157/107 H Pulse Oximetry 98 98 Oxygen Delivery Method Room Air Room Air 02/17/23 23:55 02/18/23 03:55 02/18/23 03:55 Temperature 97.4 F L 97.4 F L Pulse Rate 75 85 Pulse Rate [Monitor] 75 Respiratory Rate 16 16 16 Blood Pressure Blood Pressure [Left Arm] 145/104 H Pulse Oximetry 98 97 Oxygen Delivery Method Room Air Room Air 02/18/23 06:05 02/18/23 07:00 02/18/23 07:43 Temperature 97.6 F Pulse Rate 72 67 Pulse Rate [Monitor] Respiratory Rate Blood Pressure Blood Pressure [Left Arm] Pulse Oximetry Oxygen Delivery Method Room Air 02/17/23 23:10 02/17/23 23:24 02/17/23 23:25 Temperature Pulse Rate 75 84 76 Pulse Rate [Monitor] Respiratory Rate 4 L 19 25 H Blood Pressure Blood Pressure [Left Arm] Pulse Oximetry 97 Oxygen Delivery Method 02/17/23 23:26 02/17/23 23:30 02/18/23 02:47 Temperature Pulse Rate 75 80 67 Pulse Rate [Monitor] Respiratory Rate 18 7 L 12 Blood Pressure 154/110 H 157/107 H 145/104 H Blood Pressure [Left Arm] Pulse Oximetry 97 Oxygen Delivery Method 02/18/23 07:27 02/18/23 09:59 Temperature Pulse Rate 67 68 Pulse Rate [Monitor] Respiratory Rate 7 L Blood Pressure 136/97 H Blood Pressure [Left Arm] Pulse Oximetry 95 Oxygen Delivery Method Documenting provider has reviewed patient's vital signs: yes Common normals: oriented x3 and alert HENMT Common normals: normocephalic Eye Common normals: PERRL and EOMs intact bilaterally Respiratory Common normals: normal respiratory effort and clear to auscultation bilaterally Cardio Common normals: regular rate, regular rhythm, no gallops, no murmurs and no rub GI Common normals: Normal to inspection, nondistended, normoactive bowel sounds present and non-tender Extremity General: no edema Results Labs Labs: Short CBC 02/17/23 Range/Units 20:00 WBC 11.3 H (4.0-11.0) 10^3/uL Hgb 13.8 L (14.0-18.0) g/dL Hct 40.1 L (42.0-54.0) % Plt Count 294 (150-450) 10^3/uL BMP 02/17/23 02/18/23 20:00 07:45 Sodium 131 L Potassium 4.0 Chloride 100 Carbon Dioxide 27.3 BUN 19.0 H Creatinine 0.90 Glucose 579 H* 556 H* Calcium 9.7 Liver Function 02/17/23 Range/Units 20:00 Total Bilirubin 0.2 (0.2-1.0) mg/dL AST 10 L (15-37) U/L ALT 29 (16-63) U/L Alkaline Phosphatase 316 H (46-116) U/L Albumin 2.7 L (3.4-5.0) g/dL Pulse Oximetry Attestation: I have reviewed the pertinent pulse oximetry results. ECG Attestation: ?I have reviewed the pertinent ECG results. Assessment and Plan Assessment and Plan (1) Chest pain: (2) COPD exacerbation: (3) Drug abuse: (4) Insulin dependent type 2 diabetes mellitus, uncontrolled: (5) Failure to thrive: Qualifiers: Failure to thrive age range: in adult Qualified Code(s): R62.7 - Adult failure to thrive (6) Hypercholesteremia: Plan 1. Chest pain 2. COPD exacerbation 3. Polysubstance abuse 4. DM2 with hyperglycemia Presented with chest pain but normal evaluation. Not having ACS and cardiac enzymes normal and no EKG changes. Discharge home. Resume home medication as directed and use albuterol PRN. F/u with PCP in 1-2 weeks.
--- NOTE | 2023-02-18 11:37 | SWNOTE1 ---
JUNA met with pt to discuss dc needs. Pt lives at home by himself, he does have family that does check on him. Pt did voice he does not use any medical equipment at home. Pt is independent. Pt is being discharged today. He is current with [facility] and will resume. JUAN sent updates and dc orders to [facility].
--- NOTE | 2023-02-18 11:40 | CM.NOTE ---
Rounds made with randy Crenshaw for discharge to home today. Pt will continue to follow with HH.
[2023-02-18 15:14] LABS: SARS-CoV-2 NAA NOT DETECTED (NOT DETECTE)
== END 2023-02-18 11:31 | disposition home or self-care (01) ==
LOC: ER 22:23 → ICU 23:44
PROVIDERS: Physician Assistant; Admitting Provider Internal Medicine; Emergency Provider Emergency Medicine; PCP Internal Medicine; Visit Provider Family Medicine
DX: R07.9 Chest pain, unspecified (principal); J44.1 Chronic obstructive pulmonary disease with (acute) exacerbation; E11.65 Type 2 diabetes mellitus with hyperglycemia; R62.7 Adult failure to thrive; E78.00 Pure hypercholesterolemia, unspecified; F19.10 Other psychoactive substance abuse, uncomplicated; F17.210 Nicotine dependence, cigarettes, uncomplicated; Z20.822 Contact with and (suspected) exposure to COVID-19; Z79.82 Long term (current) use of aspirin; Z79.899 Other long term (current) drug therapy; Z79.4 Long term (current) use of insulin
CPT/HCPCS: 36415; 71045; 80053; 80307; 80320; 82947; 82948; 83605; 83880; 84484; 85025; 85610; 85730; 87040; 87635; 87811; 93005; 94640; 96374; 99285; G0378; J2930

== ENCOUNTER 2023-02-26 11:41 | Emergency (ER) | payer OTHER, SELFPAY ==
[2023-02-26] VITALS (29 sets, daily range): BP systolic 120–173; BP diastolic 83–113; PULSE 76–91; RESP 12–30; O2SAT 76–100; BMI 20.9
--- NOTE | 2023-02-26 12:04 | ECG_ITS ---
[facility] Test Date: 2023-02-26 Pat Name: BROOKLYNN STEPHEN Department: Room: - Gender: Male Transmission Engineer: : [id number] Requested By: [id number] Order Number: [id number] Reading MD: AWAIS FAULKNER Measurements Intervals [place] Rate: 80 P: 66 KS: 200 QRS: 78 QRSD: 78 T: 67 QT: 358 QTc: 393 Interpretive Statements 1100 Sinus rhythm 6220 Possible left atrial enlargement Non-Specific T wave inversion in aVL 9130 borderline ECG No previous ECG available for comparison Electronically Signed On 02-27-2023 5:57:34 EDT by AWAIS FAULKNER
--- NOTE | 2023-02-26 12:04 | ED_ITS ---
HPI - SOB/Dyspnea General Chief Complaint: Shortness of Breath/Dyspnea Stated Complaint: HYPERTENSION/ SHORTNESS OF BREATH Time Seen by Provider: 02/26/23 12:04 Source: patient and caregiver Mode of arrival: ambulance Limitations: no limitations History of Present Illness HPI Narrative: pt was sent to us by the EMS after his home health care nurse mentioned he is SOB , The patient upon presentation was not in any respiratory distress ,pt did Not complaint with his medication He had no chest pain or nausea no vomiting or other complaints he denies any cough and when asked about shortness of breath he answered yes no change in Cough Related Data Home Medications Medication Instructions Recorded Confirmed albuterol sulfate 90 mcg/actuation inhalation 02/26/23 aerosol inhaler aspirin 81 mg tablet,delayed 81 mg PO DAILY 02/26/23 02/26/23 release atorvastatin 40 mg tablet 40 mg PO BEDTIME 02/26/23 02/26/23 glipizide 10 mg tablet 10 mg PO DAILY 02/26/23 02/26/23 hydroxyzine HCl 25 mg tablet 25 mg PO BID 02/26/23 02/26/23 insulin glargine 100 unit/mL (3 unit subcut 02/26/23 mL) subcutaneous pen (Lantus Solostar U-100 Insulin) ipratropium 20 mcg-albuterol 100 1 puff inhalation Q6H PRN sob 02/26/23 02/26/23 mcg/actuation mist for inhalation (Combivent Respimat) lisinopril 2.5 mg tablet 2.5 mg PO 02/26/23 metoprolol tartrate 50 mg tablet mg 02/26/23 quetiapine 50 mg tablet mg 02/26/23 tamsulosin 0.4 mg capsule mg PO 02/26/23 tiotropium bromide 2.5 inhalation 02/26/23 mcg/actuation mist for inhalation (Spiriva Respimat) Previous Rx's Medication Instructions Recorded doxycycline hyclate 100 mg capsule 100 mg PO BID 7 days #14 caps 02/26/23 Allergies Allergy/AdvReac Type Severity Reaction Status Date / Time No Known Drug Allergies Allergy Verified 02/26/23 11:51 Review of Systems ROS Status of ROS 10 or more systems reviewed and unremarkable except as noted in history and below PFSH PFSH Social History Smoking status: Current every day smoker Exam Narrative Exam Narrative: Nurses notes and vital signs reviewed and patient is not hypoxic. General: Well-appearing and in no apparent distress. Skin: Warm, dry, no pallor noted. No rash. Head: Normocephalic, atraumatic. Neck: Supple, non-tender. Eye: Pupils are equal, round and EOMI. No scleral icterus. Ears, Nose, Mouth, and Throat: TM are clear, no nasal mucosal hypertrophy. Oral mucosa is moist, no posterior oropharynx erythema, uvula is mid-line Cardiovascular: Regular Rate and Rhythm without murmur, gallop or rub. Respiratory: No accessory muscle use or respiratory distress. Lungs Distant breathing sounds, no wheezing Chest Wall: no tenderness Back: No midline thoracic or lumbar vertebral tenderness. No CVA tenderness Musculoskeletal: normal ROM, no calf or popliteal tenderness, no lower extremity edema/swelling GI: Abdomen is soft, non-distended. Normal bowel sounds. No masses appreciated. No tenderness to palpation. No rebound, guarding, or rigidity noted. Neurological: A&O x4. No cranial nerve dysfunction observed. No truncal ataxia. Moves all extremities. Sensation intact. Psychiatric: Cooperative and interactive. Normal mood and affect. Constitutional Vital Signs, click to edit/add: Last Vital Signs Pulse 91 H 02/26/23 15:50 Resp 30 H 02/26/23 15:50 BP 120/86 H 02/26/23 15:56 Pulse Ox 95 02/26/23 15:56 O2 Del Method Room Air 02/26/23 14:24 O2 Flow Rate 2 02/26/23 12:49 Course Vital Signs Vital signs: Vital Signs Pulse Rate 88 02/26/23 11:45 Respiratory Rate 23 02/26/23 11:45 Pulse Rate 91 H 02/26/23 15:50 Respiratory Rate 30 H 02/26/23 15:50 Blood Pressure 120/86 H 02/26/23 15:56 Pulse Oximetry 95 02/26/23 15:56 Oxygen Delivery Method Room Air 02/26/23 14:24 Oxygen Delivery Flow Rate 2 02/26/23 12:49 MDM - SOB/Dyspnea MDM Narrative Medical decision making narrative: EKG showing sinus rhythm with a heart rate of [address] no [address] elevation or depression ,when the patient presented he had no shortness of breath that was obvious on examination he was not in any distress at any time The patient is known to have history of noncompliance blood workup showed hyperg lycemia with no signs of DKA The patient was provided with insulin as well as IV fluid after which his blood sugars trending down He was provided with breathing treatment as well and his pulse ox was ninety- five percent in room air with no tachypnea that was noted on examination The patient just x-ray shows a possible infiltrate with the patient having leukocytosis he will still be covered with doxycycline due to his history The patient will continue breathing treatment as well as antibiotic no need for prednisone at the moment she with the patient hyperglycemia history and noncompliance and the fact that he is not in any respect distress at the moment The patient is to followup with primary care physician in next 2-3 days or to return to the emergency department should any of the signs or symptoms worsen or new symptoms develop. The patient agrees with the following Diagnosis and Treatment plan and the patient will be discharged home. At this time the patient is without objective evidence of an acute process requiring hospitalization or inpatient management. The patient has remained hemodynamically stable. No additional indication for emergent studies at this time. I answered all questions. Discussed discharge instructions including standard anticipatory guidance and what should prompt a return to the emergency department, including if they get worse are not getting better or develops any new or concerning symptoms. I've given them specific time frame in which to follow-up, and who to follow-up with. The patient demonstrates understanding. Patient is nontoxic and stable for discharge with outpatient follow-up. Lab Data Labs: Lab Results 02/26/23 02/26/23 02/26/23 Range/Units 12:30 14:56 16:07 WBC 9.8 (4.0-11.0) 10^3/uL RBC 5.20 (4.70-6.10) 10^6/uL Hgb 15.9 (14.0-18.0) g/dL Hct 45.3 (42.0-54.0) % MCV 87.1 (80.0-94.0) fL MCH 30.6 (25.9-34.0) pg MCHC 35.1 (29.9-35.2) g/dL RDW 12.8 (11.0-15.0) % Plt Count 279 (150-450) 10^3/uL MPV 10.3 (9.5-13.5) fL Neut % (Auto) 60.2 (43.0-75.0) % Lymph % (Auto) 31.7 (20.5-60.0) % Summers % (Auto) 5.0 (1.7-12.0) % Eos % (Auto) 1.6 (0.9-7.0) % Baso % (Auto) 0.7 (0.2-2.0) % Neut # (Auto) 5.9 (1.4-6.5) 10^3/uL Lymph # (Auto) 3.1 (1.2-3.8) 10^3/uL Summers # (Auto) 0.5 (0.3-0.8) 10^3/uL Eos # (Auto) 0.2 (0.0-0.7) 10^3/uL Baso # (Auto) 0.1 (0.0-0.1) 10^3/uL Abs Immat Gran (auto) 0.08 H (0.00-0.03) 10^3/uL Imm/Tot Granulo (auto) 0.8 H (0.0-0.5) % PT 9.8 (9.0-11.6) sec INR <0.93 Sodium 132 L 133 L (136-145) mmol/L Potassium 4.3 4.2 (3.5-5.1) mmol/L Chloride 97 L 100 (98-107) mmol/L Carbon Dioxide 28.5 24.4 (21.0-32.0) mmol/L Anion Gap 10.8 12.8 BUN 14.0 15.0 (7.0-18.0) mg/dL Creatinine 0.86 0.79 (0.70-1.30) mg/dL Est GFR ( Amer) >60 >60 (>=60) Est GFR (Non-Af Amer) >60 >60 (>=60) BUN/Creatinine Ratio 16.3 19.0 Glucose 611 H* 420 H (74-106) mg/dL Calcium 10.3 H 10.0 (8.5-10.1) mg/dL Total Bilirubin 0.3 (0.2-1.0) mg/dL AST 16 (15-37) U/L ALT 30 (16-63) U/L Alkaline Phosphatase 388 H (46-116) U/L Troponin I High Sens 5.3 (4.0-76.1) pg/mL NT-Pro-B Natriuret Pep 48.0 (<=900.0) pg/mL Total Protein 7.6 (6.4-8.2) g/dL Albumin 2.9 L (3.4-5.0) g/dL Globulin 4.7 g/dL Albumin/Globulin Ratio 0.6 POC Glucose 492 H (74-106) mg/dL Discharge Plan Discharge Chief Complaint: Shortness of Breath/Dyspnea Clinical Impression: Medical non-compliance, Hyperglycemia, COPD (chronic obstructive pulmonary disease) Patient Disposition: Home, Self-Care Time of Disposition Decision: 15:40 Condition: Good Prescriptions / Home Meds: New doxycycline hyclate 100 mg capsule 100 mg PO BID 7 Days Qty: 14 0RF No Action albuterol sulfate 90 mcg/actuation HFA aerosol inhaler INHALATION aspirin 81 mg tablet,delayed release (DR/EC) 81 mg PO DAILY atorvastatin 40 mg tablet 40 mg PO BEDTIME glipizide 10 mg tablet 10 mg PO DAILY hydroxyzine HCl 25 mg tablet 25 mg PO BID insulin glargine [Lantus Solostar U-100 Insulin] 100 unit/mL (3 mL) insulin pen SUBCUT Combivent Respimat 20-100 mcg/actuation mist 1 puff INHALATION Q6H PRN (Reason: sob) lisinopril 2.5 mg tablet 2.5 mg PO tamsulosin 0.4 mg capsule PO metoprolol tartrate 50 mg tablet quetiapine 50 mg tablet Spiriva Respimat 2.5 mcg/actuation mist INHALATION Instructions: COPD (Chronic Obstructive Pulmonary Disease) (ED), Diabetic Hyperglycemia (ED) Stand Alone Forms: Portal Instructions Referrals: Physician,Non-Staff, MD [Primary Care Provider] - 1 week
--- NOTE | 2023-02-26 12:04 | XR_ITS ---
The [address] [address] Patient Name: BROOKLYNN STEPHEN MRN: [id number] date: 1960 Sex: M Assigned Patient Location: ED.MAIN Current Patient Location: ER Accession/Order Number: [id number] Exam Date: 02/26/2023 12:20 Report Date: 02/26/2023 12:49 At the request of: STEFFEN SYED Procedure: XR chest 1V EXAMINATION: XR chest 1V HISTORY: sob , cough COMPARISON: XR chest 02/17/2023 FINDINGS: LUNGS: Underexpanded lungs with mild stranding within lung bases. VASCULATURE: No increased pulmonary vasculature. PLEURA: No pneumothorax, effusion, or pleural thickening. CARDIAC: No cardiomegaly or cardiac silhouette abnormality. MEDIASTINUM: No visible mass or adenopathy. BONES: No fracture or visible bone lesion. OTHER: Negative. XR/XR chest 1V IMPRESSION: 1. Trace amount of basilar atelectasis versus infiltrates, right greater than left. Electronically authenticated by: SOPHIE TEJADA Date: 02/26/2023 12:49
[2023-02-26] MEDS: METHYLPREDNISOLONE SOD SUCC PF 125 MG/2 ML VIAL IVP (12:22)
[2023-02-26] MEDS: IPRATROPIUM/ALBUTEROL SULFATE 3 ML AMPUL.NEB IH (12:22)
[2023-02-26 12:42] LABS: Basophils Absolute Auto 0.1 10^3/uL (0.0-0.1); Basophils Percent Auto 0.7 % (0.2-2.0); Eosinophils Absolute Auto 0.2 10^3/uL (0.0-0.7); Eosinophils Percent Auto 1.6 % (0.9-7.0); Hematocrit 45.3 % (42.0-54.0); Hemoglobin 15.9 g/dL (14.0-18.0); Immature Granulocytes Abs Auto 0.08 10^3/uL (0.00-0.03); Immature Granulocytes Pct Auto 0.8 % (0.0-0.5); Lymphocytes Absolute Auto 3.1 10^3/uL (1.2-3.8); Lymphocytes Percent Auto 31.7 % (20.5-60.0); Mean Corpuscular HGB Conc 35.1 g/dL (29.9-35.2); Mean Corpuscular Hemoglobin 30.6 pg (25.9-34.0); Mean Corpuscular Volume 87.1 fL (80.0-94.0); Mean Platelet Volume 10.3 fL (9.5-13.5); Monocytes Absolute Auto 0.5 10^3/uL (0.3-0.8); Neutrophils Absolute Auto 5.9 10^3/uL (1.4-6.5); Neutrophils Percent Auto 60.2 % (43.0-75.0); Platelet Count 279 10^3/uL (150-450); Red Cell Distribution Width 12.8 % (11.0-15.0); White Blood Count 9.8 10^3/uL (4.0-11.0)
[2023-02-26 12:56] LABS: Prothrombin Time 9.8 sec (9.0-11.6)
[2023-02-26 13:00] LABS: INR <0.93
[2023-02-26 13:25] LABS: Alanine Aminotransferase 30 U/L (16-63); Albumin Globulin Ratio 0.6; Albumin Level 2.9 g/dL (3.4-5.0); Alkaline Phosphatase 388 U/L (46-116); Anion Gap 10.8; Aspartate Amino Transferase 16 U/L (15-37); BUN Creatinine Ratio 16.3; Bilirubin Total 0.3 mg/dL (0.2-1.0); Calcium 10.3 mg/dL (8.5-10.1); Carbon Dioxide 28.5 mmol/L (21.0-32.0); Chloride 97 mmol/L (98-107); Estimated GFR (African America >60 (>=60); Estimated GFR (Non-African Ame >60 (>=60); Globulin 4.7 g/dL; Potassium 4.3 mmol/L (3.5-5.1); Sodium 132 mmol/L (136-145); Total Protein 7.6 g/dL (6.4-8.2); Troponin I High Sensitivity 5.3 pg/mL (4.0-76.1)
[2023-02-26 13:38] LABS: Glucose 611 mg/dL (74-106)
[2023-02-26] MEDS: 0.9 % SODIUM CHLORIDE 1,000 ML 1000 ML IV ×2 (14:13→16:10)
[2023-02-26] MEDS: INSULIN REGULAR 300 UNITS/3 ML 12 UNIT SUBQ (14:14)
[2023-02-26 14:57] LABS: Glucometer 492 mg/dL (74-106)
[2023-02-26 16:29] LABS: Anion Gap 12.8; Carbon Dioxide 24.4 mmol/L (21.0-32.0); Chloride 100 mmol/L (98-107); Estimated GFR (African America >60 (>=60); Estimated GFR (Non-African Ame >60 (>=60); Glucose 420 mg/dL (74-106); Potassium 4.2 mmol/L (3.5-5.1); Sodium 133 mmol/L (136-145)
[2023-02-27 12:09] LABS: Insulin 3.6 uIU/mL (2.6-24.9)
== END 2023-02-26 17:00 | disposition home or self-care (01) ==
PROVIDERS: Emergency Provider Emergency Medicine
DX: J44.9 Chronic obstructive pulmonary disease, unspecified (principal); Z91.148 Patient's other noncompliance with medication regimen for other reason; E11.65 Type 2 diabetes mellitus with hyperglycemia; Z79.82 Long term (current) use of aspirin; Z79.899 Other long term (current) drug therapy; Z79.4 Long term (current) use of insulin; F17.210 Nicotine dependence, cigarettes, uncomplicated
CPT/HCPCS: 36415; 71045; 80048; 80053; 83525; 83880; 84484; 85025; 85610; 93005; 94640; 96374; 99285; J2930

== ENCOUNTER 2023-03-12 01:48 | Emergency (ER) | payer OTHER, SELFPAY ==
[2023-03-12 01:51] VITALS: BP 170/110; PULSE 75; RESP 18; TEMP 36.6; O2SAT 97; BMI 21.1
[2023-03-12 02:10] VITALS: O2SAT 96
--- NOTE | 2023-03-12 02:26 | XR_ITS ---
The [address] [address] Patient Name: BROOKLYNN STEPHEN MRN: [id number] date: 1960 Sex: M Assigned Patient Location: ER Current Patient Location: ER Accession/Order Number: [id number] Exam Date: 03/12/2023 02:35 Report Date: 03/12/2023 03:44 At the request of: RAYMOND MARKER Procedure: XR chest 1V EXAM: XR chest 1V HISTORY: SOB COMPARISON: 02/26/2023 TECHNIQUE: AP FINDINGS: Cardiomediastinal silhouette is stable in size. There is been interval development of a mild left-sided pleural effusion. There is questionable mild pulmonary edema. No evidence for consolidation/infiltrate. No evidence for pneumothorax. The diaphragmatic and osseous structures are intact without evidence for an acute osseous abnormality. XR/XR chest 1V IMPRESSION: Questionable mild pulmonary edema with interval development of a mild left-sided pleural effusion. Electronically authenticated by: TONO RUBIO Date: 03/12/2023 03:44
--- NOTE | 2023-03-12 02:50 | ED.BACK1 ---
HPI - Back Pain/Injury General Chief Complaint: Back Pain/Injury Stated Complaint: BACK PAIN Time Seen by Provider: 03/12/23 01:50 Source: patient Mode of arrival: ambulance Limitations: no limitations History of Present Illness HPI Narrative: 62-year-old male was transferred to the emergency department from [facility] where he is currently in rehabilitation after he was taken to [facility] on 03/02/23 he fell off the top of a trailer and sustained a pneumothorax on the left with a nondisplaced posterior rib fracture and 3 lumbar transverse process fractures. He has a history of hypertension and chronic obstructive pulmonary disease diabetes intracranial hemorrhage and a traumatic brain injury with previous lumbar fractures and a history of decreased cognition. He was transferred after stabilization for rehab and it was thought that he was not capable of caring for himself. According to the correction report prior to him being transferred to this emergency department he has orders for [place] and Tylenol but they were unable to get the [place] to treat his pain. He requested to come to the emergency department for pain management. He denies any chest pain or particular shortness of breath. He is awake, alert, oriented. He talks with a very soft voice and is difficult to understand and has had a tracheostomy in the past. He has not had any injury since being transferred to the [facility]. I did review records from when he has been a patient in this emergency department and at this hospital and it appears that he also has a history of substance abuse and has tested positive for amphetamine, methamphetamine, opiates and marijuana in the past. The patient has only been receiving Tylenol for control of his pain. According to the F he has only been there for the past 2 days. Related Data Home Medications Medication Instructions Recorded Confirmed amlodipine 10 mg-benazepril 20 mg 1 cap PO DAILY 01/31/23 02/17/23 capsule ammonium lactate 12 % lotion 1 applic topical .twice a day 01/31/23 02/17/23 aspirin 81 mg tablet,delayed 81 mg PO DAILY 01/31/23 02/17/23 release atorvastatin 40 mg tablet 40 mg PO .evening 01/31/23 02/17/23 escitalopram oxalate 20 mg tablet 20 mg PO DAILY 01/31/23 02/17/23 glipizide 10 mg tablet 10 mg PO DAILY 01/31/23 02/17/23 hydroxyzine HCl 25 mg tablet 25 mg PO DAILY 01/31/23 02/17/23 quetiapine 50 mg tablet 50 mg PO .hs 01/31/23 02/17/23 tamsulosin 0.4 mg capsule 0.4 mg PO DAILY 01/31/23 02/17/23 tiotropium bromide 2.5 2 puff inhalation Q24H 01/31/23 02/17/23 mcg/actuation mist for inhalation (Spiriva Respimat) hydrocodone 5 mg-acetaminophen 325 1 tab PO Q6H 03/12/23 03/12/23 mg tablet lisinopril 2.5 mg tablet 2.5 mg PO DAILY 03/12/23 03/12/23 metoprolol tartrate 25 mg tablet 25 mg PO Q12H 03/12/23 03/12/23 naproxen 500 mg tablet 500 mg PO Q12H 03/12/23 03/12/23 ondansetron HCl 4 mg tablet 4 mg PO Q6H 03/12/23 03/12/23 pregabalin 75 mg capsule mg 03/12/23 valsartan 320 mg tablet 320 mg PO DAILY 03/12/23 03/12/23 Previous Rx's Medication Instructions Recorded albuterol sulfate 90 mcg/actuation 2 inh inhalation QID PRN shortness 02/09/23 aerosol inhaler (Ventolin HFA) of breath or wheezing #6.7 grams insulin glargine 100 unit/mL 40 unit (0.4 mL) subcut BID 30 02/09/23 subcutaneous solution (Lantus days #21 mL U-100 Insulin) metoprolol tartrate 50 mg tablet 25 mg PO BID #60 tabs 02/09/23 (Lopressor) Allergies Allergy/AdvReac Type Severity Reaction Status Date / Time No Known Allergies AdvReac Mild Verified 03/12/23 01:56 Review of Systems ROS Status of ROS 10 or more systems reviewed and unremarkable except as noted in history and below [facility] Medical History (Updated 03/12/23 @ 04:12 by Patito Martinez MD) Surgical History (Updated 02/07/23 @ 22:56 by Aleta Simpson) Social History Within the past year, how often did you have a drink containing alcohol: 4 or more times a week Within the past year, how many standard drinks containing alcohol did you have on a typical day: 1 or 2 Within the past year, how often did you have six or more drinks on one occasion: never Total score: 0 Score interpretation: Questions 2 and 3 are 0. It can be assumed that the patient's drinking is below the recommended limits. However, please confirm the accuracy of the patient's alcohol intake over the last few months. Smoking status: Current every day smoker What tobacco products do you use: cigarettes Pack-years instructions: Please document either packs per day or cigarettes per day in order for pack years to calculate correctly. If using both packs per day and cigarettes per day, please make sure that they denote the same thing. If they differ, pack-years will calculate based on packs per day. Packs Per Day Cigarettes Per Day 1/4 of a pack 5 1/2 a pack 10 3/4 of a pack 15 1 pack 20 1.5 pack 30 2 packs 40 2.5 packs 50 3 packs 60 Non-prescribed substance use: former substance user, crack/cocaine and opiods/painkillers Exam Narrative Exam Narrative: Nurses note and vital signs reviewed and patient is not hypoxic. Blood pressure was noted to be elevated at 170/110 General: Chronically debilitated male, he is sitting up on the stretcher, he has been ambulatory to the bathroom, no respiratory distress, he speaks with a muffled voice and is difficult to understand, according to the staff in the emergency department who have taken care of him in the past this is his baseline Skin: Warm, dry, no pallor noted. There is no rash noted. Head: Normocephalic, atraumatic Eye: Normal conjunctiva Ears, Nose, Mouth, and Throat: oral mucosa is moist. Patient is drinking clear liquids Cardiovascular: Regular Rate and Rhythm, S1 S2, pulses are brisk and equal bilaterally Respiratory: Patient is in no distress, no accessory muscle use, lungs are clear to auscultation, no wheezing, rales or rhonchi Back: non-tender, no CVA tenderness bilaterally to percussion. GI: Normal bowel sounds, no tenderness to palpation, no masses appreciated. No rebound, guarding, or rigidity noted. Musculoskeletal: The patient has no evidence of calf tenderness, no pitting edema, symmetrical pulses noted bilaterally Neurological: A&O x4, normal speech Psychiatric: Cooperative Constitutional Vital Signs, click to edit/add: Last Vital Signs Temp 97.8 F 03/12/23 01:51 Pulse 81 03/12/23 02:55 Resp 12 03/12/23 04:01 BP 150/88 H 03/12/23 04:01 Pulse Ox 95 03/12/23 04:01 O2 Del Method Room Air 03/12/23 02:10 Course Vital Signs Vital signs: Vital Signs Temperature 97.8 F 03/12/23 01:51 Pulse Rate 75 03/12/23 01:51 Respiratory Rate 18 03/12/23 01:51 Blood Pressure 170/110 H 03/12/23 01:51 Pulse Oximetry 97 03/12/23 01:51 Oxygen Delivery Method Room Air 03/12/23 01:51 Temperature 97.8 F 03/12/23 01:51 Pulse Rate 81 03/12/23 02:55 Respiratory Rate 12 03/12/23 04:01 Blood Pressure 150/88 H 03/12/23 04:01 Pulse Oximetry 95 03/12/23 04:01 Oxygen Delivery Method Room Air 03/12/23 02:10 MDM - Back Pain/Injury MDM Narrative Medical decision making narrative: This 62-year-old male was sent to the emergency department From the [facility] care facility where he is currently receiving rehabilitation after sustaining a posterior 3rd rib fracture and 3 lumbar transverse process fractures in a fall off of the top of a trailer on March 02. He sustained a pneumothorax at that time and was treated at [facility] with a left sided chest tube, analgesics and ultimately he was transferred to the [facility] care facility where he has been receiving rehab. According to the correction report they were unable to medicate him with the [place] that had been prescribed to him by the correction physician because they had not been able to obtain it. I am aware that there is a shortage of [place] and pharmacies are having a hard time stopping. He had been being medicated with Tylenol only. This was not controlling his pain. Of note the patient does have a history of substance abuse as well. On arrival he was noted to be hypertensive but alert. He has been ambulatory. He is drinking clear fluids. He has diffuse expiratory wheezing and rhonchi and a history of chronic obstructive pulmonary disease. He received a Duoneb treatment for the wheezing and COPD. An IV was placed and he was given 4mg IV morphine and 4mg IV zofran. A CXR was ordered to evaluate the lungs as he had a chest tube placed at [facility] due to a left sided pneumothorax. Radiology view of the chest x-ray which shows some peripheral vascular congestion and an interval development of a left-sided pleural effusion. This is likely a traumatic pleural effusion as he had the chest tube placed on this side. I did review the reports from the hospitalization at [facility]. Their assessment is consistent with the assessment today the patient does not appear to be decompensating. His pain was managed in the emergency department and prior to being transferred back to the extended care facility he was given 2 Percocet to take for better control of his pain. I'm reevaluation he was able to lie back and his blood pressure had improved into the 150s over 80s. I suggested to him that he discuss changing his pain medications to something more available at their discretion. Discharge Plan Discharge Chief Complaint: Back Pain/Injury Clinical Impression: Closed rib fracture, Intractable back pain, Pleural effusion, COPD (chronic obstructive pulmonary disease) Patient Disposition: [facility] Time of Disposition Decision: 04:11 Condition: Good Instructions: Rib Fracture (ED), COPD (Chronic Obstructive Pulmonary Disease) (ED), Pleural Effusion (DC) Stand Alone Forms: Portal Instructions Referrals: Shaikh Villar MD [Primary Care Provider] - 1 week Discharge Date/Time: 03/12/23 05:35
[2023-03-12] MEDS: MORPHINE SULFATE 4 MG/ML VIAL IV (02:51)
[2023-03-12] MEDS: ONDANSETRON PF 4 MG/2 ML VIAL IV (02:51)
[2023-03-12] MEDS: IPRATROPIUM/ALBUTEROL SULFATE 3 ML AMPUL.NEB IH (02:53)
[2023-03-12 02:55] VITALS: PULSE 81; RESP 18; O2SAT 96
[2023-03-12 04:01] VITALS: BP 150/88; RESP 12; O2SAT 95
== END 2023-03-12 05:35 ==
PROVIDERS: Emergency Provider Emergency Medicine; PCP Internal Medicine
DX: J90 Pleural effusion, not elsewhere classified (principal); J44.9 Chronic obstructive pulmonary disease, unspecified; M54.9 Dorsalgia, unspecified; S22.32XD Fracture of one rib, left side, subsequent encounter for fracture with routine healing; W17.89XD Other fall from one level to another, subsequent encounter; Z79.82 Long term (current) use of aspirin; Z79.899 Other long term (current) drug therapy; F17.210 Nicotine dependence, cigarettes, uncomplicated; F19.11 Other psychoactive substance abuse, in remission
CPT/HCPCS: 71045; 94640; 96374; 96375; 99284

== ENCOUNTER 2023-05-28 14:10 | Emergency (ER) | payer OTHER, SELFPAY ==
[2023-05-28] VITALS (35 sets, daily range): BP systolic 128–152; BP diastolic 81–115; PULSE 84–107; RESP 9–27; TEMP 36.9; O2SAT 69–100; BMI 25.6
--- NOTE | 2023-05-28 14:13 | XR_ITS ---
The [place] [id number] Patient Name: BROOKLYNN STEPHEN MRN: [id number] date: 1960 Sex: M Assigned Patient Location: ER Current Patient Location: ER Accession/Order Number: [id number] Exam Date: 05/28/2023 14:44 Report Date: 05/28/2023 15:33 At the request of: MANDI MORTON Procedure: XR chest 1V ONE-VIEW CHEST RADIOGRAPH, 05/28/2023, 2:44 PM EDT COMPARISON: Chest, 03/12/2023. CLINICAL HISTORY: Shortness of breath. Findings and impression: 1. Very subtle questionable opacity in the left mid to lower lung zone may correspond to some subtle atelectasis or pneumonitis. Lungs otherwise clear. 2. Normal heart size. 3. No acute osseous abnormality. Electronically authenticated by: Danis GARZA Date: 05/28/2023 15:33
--- NOTE | 2023-05-28 14:13 | ECG_ITS ---
The [facility] Test Date: 2023-05-28 Pat Name: BROOKLYNN STEPHEN Department: Room: - Gender: Male Head Of Quality: : 1960 Requested By: SHAIKH GUILLERMO Order Number: [id number] Reading MD: KO CISNEROS Measurements Intervals [place] Rate: 100 P: 70 TN: 182 QRS: 96 QRSD: 88 T: 65 QT: 352 QTc: 409 Interpretive Statements 1120 Sinus tachycardia 7102 Moderate right axis deviation 0102 ARTIFACT PRESENT 9140 abnormal rhythm ECG Electronically Signed On 05-29-2023 6:55:32 EDT by KO CISNEROS
--- NOTE | 2023-05-28 14:14 | PC.NURSE ---
pt whispering with short fast breathing during triage and assessment. Color to lips and fingers wnl.
--- NOTE | 2023-05-28 14:14 | ED.SOB1 ---
HPI - SOB/Dyspnea General Chief Complaint: Shortness of Breath/Dyspnea Stated Complaint: GENERAL WEAKNESS Time Seen by Provider: 05/28/23 14:13 History of Present Illness HPI Narrative: patient is a 62-year-old male who presents to the emergency department by EMS for the evaluation of shortness of breath over the last several days. He is well-known to this emergency department, he lives at home by himself. He admits to some discomfort in the chest over the last several days, he has had yellow sputum production with coughing. He denies any objective fevers. No vomiting or diarrhea. No sick contacts that he is aware of. EMS was unable to establish an IV so the patient was not given any medications prior to arrival. He is not on any blood thinners. He has a significant history of medication noncompliance and drug abuse. Related Data Home Medications Medication Instructions Recorded Confirmed amlodipine 10 mg-benazepril 20 mg 1 cap PO DAILY 01/31/23 02/17/23 capsule ammonium lactate 12 % lotion 1 applic topical .twice a day 01/31/23 02/17/23 aspirin 81 mg tablet,delayed 81 mg PO DAILY 01/31/23 02/17/23 release atorvastatin 40 mg tablet 40 mg PO .evening 01/31/23 02/17/23 escitalopram oxalate 20 mg tablet 20 mg PO DAILY 01/31/23 02/17/23 glipizide 10 mg tablet 10 mg PO DAILY 01/31/23 02/17/23 hydroxyzine HCl 25 mg tablet 25 mg PO DAILY 01/31/23 02/17/23 quetiapine 50 mg tablet 50 mg PO .hs 01/31/23 02/17/23 tamsulosin 0.4 mg capsule 0.4 mg PO DAILY 01/31/23 02/17/23 tiotropium bromide 2.5 2 puff inhalation Q24H 01/31/23 02/17/23 mcg/actuation mist for inhalation (Spiriva Respimat) albuterol sulfate 90 mcg/actuation inhalation 02/26/23 aerosol inhaler aspirin 81 mg tablet,delayed 81 mg PO DAILY 02/26/23 02/26/23 release atorvastatin 40 mg tablet 40 mg PO BEDTIME 02/26/23 02/26/23 glipizide 10 mg tablet 10 mg PO DAILY 02/26/23 02/26/23 hydroxyzine HCl 25 mg tablet 25 mg PO BID 02/26/23 02/26/23 insulin glargine 100 unit/mL (3 unit subcut 02/26/23 mL) subcutaneous pen (Lantus Solostar U-100 Insulin) ipratropium 20 mcg-albuterol 100 1 puff inhalation Q6H PRN sob 02/26/23 02/26/23 mcg/actuation mist for inhalation (Combivent Respimat) lisinopril 2.5 mg tablet 2.5 mg PO 02/26/23 metoprolol tartrate 50 mg tablet mg 02/26/23 quetiapine 50 mg tablet mg 02/26/23 tamsulosin 0.4 mg capsule mg PO 02/26/23 tiotropium bromide 2.5 inhalation 02/26/23 mcg/actuation mist for inhalation (Spiriva Respimat) hydrocodone 5 mg-acetaminophen 325 1 tab PO Q6H 03/12/23 03/12/23 mg tablet lisinopril 2.5 mg tablet 2.5 mg PO DAILY 03/12/23 03/12/23 metoprolol tartrate 25 mg tablet 25 mg PO Q12H 03/12/23 03/12/23 naproxen 500 mg tablet 500 mg PO Q12H 03/12/23 03/12/23 ondansetron HCl 4 mg tablet 4 mg PO Q6H 03/12/23 03/12/23 pregabalin 75 mg capsule mg 03/12/23 valsartan 320 mg tablet 320 mg PO DAILY 03/12/23 03/12/23 Previous Rx's Medication Instructions Recorded albuterol sulfate 90 mcg/actuation 2 inh inhalation QID PRN shortness 02/09/23 aerosol inhaler (Ventolin HFA) of breath or wheezing #6.7 grams insulin glargine 100 unit/mL 40 unit (0.4 mL) subcut BID 30 02/09/23 subcutaneous solution (Lantus days #21 mL U-100 Insulin) metoprolol tartrate 50 mg tablet 25 mg PO BID #60 tabs 02/09/23 (Lopressor) doxycycline hyclate 100 mg capsule 100 mg PO BID 7 days #14 caps 02/26/23 levofloxacin 750 mg tablet 750 mg PO DAILY 5 days #5 tabs 05/28/23 Allergies Allergy/AdvReac Type Severity Reaction Status Date / Time No Known Allergies AdvReac Mild Verified 04/15/23 07:55 Review of Systems ROS Constitutional Denies: fever or chills Ears, nose, mouth, and throat Denies: throat pain Cardiovascular Reports: chest pain Respiratory Reports: shortness of breath, cough, change in phlegm color and chest congestion Gastrointestinal Denies: nausea or vomiting Genitourinary Denies: painful urination Musculoskeletal Denies: back pain Integumentary/Breast Denies: rash Neurological Denies: headache Hematologic/Lymphatic Denies: easy bruising PFSH PFSH Medical History (Updated 05/28/23 @ 18:36 by DOMONIQUE Natarajan) Chronic obstructive pulmonary disease ?J44.9 - Chronic obstructive pulmonary disease, unspecified (ICD-10) Chronic obstructive pulmonary disease with (acute) exacerbation ?J44.1 - Chronic obstructive pulmonary disease with (acute) exacerbation (ICD-10) COPD exacerbation ?J44.1 - Chronic obstructive pulmonary disease with (acute) exacerbation (ICD-10) Depression ?F32.A - Depression, unspecified (ICD-10) Diabetes ?E11.9 - Type 2 diabetes mellitus without complications (ICD-10) Drug abuse ?F19.10 - Other psychoactive substance abuse, uncomplicated (ICD-10) Failure to thrive Hypercholesteremia ?E78.00 - Pure hypercholesterolemia, unspecified (ICD-10) Hyperlipidemia associated with type 2 diabetes mellitus ?E11.69 - Type 2 diabetes mellitus with other specified complication (ICD-10) ?E78.5 - Hyperlipidemia, unspecified (ICD-10) Hypertension ?I10 - Essential (primary) hypertension (ICD-10) Insomnia disorder ?G47.00 - Insomnia, unspecified (ICD-10) Insulin dependent type 2 diabetes mellitus, uncontrolled Tobacco abuse ?Z72.0 - Tobacco use (ICD-10) Surgical History (System 04/15/23 @ 07:55 by Mya Brown) History of total hip arthroplasty ?Z96.649 - Presence of unspecified artificial hip joint (ICD-10) Social History Within the past year, how often did you have a drink containing alcohol: 4 or more times a week Within the past year, how many standard drinks containing alcohol did you have on a typical day: 1 or 2 Within the past year, how often did you have six or more drinks on one occasion: never Total score: 0 Score interpretation: Questions 2 and 3 are 0. It can be assumed that the patient's drinking is below the recommended limits. However, please confirm the accuracy of the patient's alcohol intake over the last few months. Smoking status: Current every day smoker What tobacco products do you use: cigarettes Pack-years instructions: Please document either packs per day or cigarettes per day in order for pack years to calculate correctly. If using both packs per day and cigarettes per day, please make sure that they denote the same thing. If they differ, pack-years will calculate based on packs per day. Packs Per Day Cigarettes Per Day 1/4 of a pack 5 1/2 a pack 10 3/4 of a pack 15 1 pack 20 1.5 pack 30 2 packs 40 2.5 packs 50 3 packs 60 Non-prescribed substance use: former substance user, crack/cocaine and opiods/painkillers Exam Narrative Exam Narrative: Gen.: Awake, alert, in no distress Head: Normocephalic, atraumatic ENT: Moist mucous membranes Respiratory: No respiratory distress, lungs clear bilaterally; tachypnea Cardio: Regular rate and rhythm Gastrointestinal: Abdomen is soft, nondistended and nontender to palpation Extremities: Moves extremities equally, no pedal edema Psych: Normal mood and affect Neuro: No focal neuro deficit Skin: Warm, dry, intact Constitutional Vital Signs, click to edit/add: Last Vital Signs Temp 98.4 F 05/28/23 14:11 Pulse 94 H 05/28/23 18:31 Resp 27 H 05/28/23 18:31 BP 142/81 H 05/28/23 18:31 Pulse Ox 94 L 05/28/23 18:10 O2 Del Method Room Air 05/28/23 14:11 Course Vital Signs Vital signs: Vital Signs Temperature 98.4 F 05/28/23 14:11 Pulse Rate 100 H 05/28/23 14:11 Respiratory Rate 22 05/28/23 14:11 Blood Pressure 130/93 H 05/28/23 14:11 Pulse Oximetry 95 05/28/23 14:11 Oxygen Delivery Method Room Air 05/28/23 14:11 Temperature 98.4 F 05/28/23 14:11 Pulse Rate 94 H 05/28/23 18:31 Respiratory Rate 27 H 05/28/23 18:31 Blood Pressure 142/81 H 05/28/23 18:31 Pulse Oximetry 94 L 05/28/23 18:10 Oxygen Delivery Method Room Air 05/28/23 14:11 MDM - SOB/Dyspnea MDM Narrative Medical decision making narrative: lab studies reviewed, patient was a very difficult IV stick, only a small IV in his thumb could be obtained. Labs show that the patient has a blood sugar of 670, and corrected sodium is 138. patient received IV fluids, two doses of subcutaneous regular insulin. His troponin, BNP are unremarkable and he has had symptoms for several days. He has no active complaints of chest pain in the Emergency Room. Chest x-ray with questionable infiltrate versus atelectasis, subtle opacity in the left lower lobe. Patient will be treated with antibiotics, we will avoid steroids as the patient is not actively wheezing, not hypoxic and has a history of medication noncompliance and hyperglycemia. He was reevaluated by attending physician, he prefers discharge home and he will be treated for chronic obstructive pulmonary disease exacerbation as an outpatient. Return to the Emergency Room if symptoms change or worsen. Medical Records Attestation: I reviewed the patient's medical records. Lab Data Attestation: I reviewed the patient's lab results. Labs: Lab Results 05/28/23 05/28/23 05/28/23 Range/Units 14:30 14:50 18:23 WBC 11.0 (4.0-11.0) 10^3/uL RBC 5.69 (4.70-6.10) 10^6/uL Hgb 17.7 (14.0-18.0) g/dL Hct 47.9 (42.0-54.0) % MCV 84.2 (80.0-94.0) fL MCH 31.1 (25.9-34.0) pg MCHC 37.0 H (29.9-35.2) g/dL RDW 11.7 (11.0-15.0) % Plt Count 286 (150-450) 10^3/uL MPV 11.5 (9.5-13.5) fL Neut % (Auto) 65.2 (43.0-75.0) % Lymph % (Auto) 25.6 (20.5-60.0) % [place] % (Auto) 6.7 (1.7-12.0) % Eos % (Auto) 1.6 (0.9-7.0) % Baso % (Auto) 0.5 (0.2-2.0) % Neut # (Auto) 7.2 H (1.4-6.5) 10^3/uL Lymph # (Auto) 2.8 (1.2-3.8) 10^3/uL [place] # (Auto) 0.7 (0.3-0.8) 10^3/uL Eos # (Auto) 0.2 (0.0-0.7) 10^3/uL Baso # (Auto) 0.1 (0.0-0.1) 10^3/uL Abs Immat Gran (auto) 0.04 H (0.00-0.03) 10^3/uL Imm/Tot Granulo (auto) 0.4 (0.0-0.5) % PT 10.2 (9.0-11.6) sec INR 0.96 APTT 28.7 (22.3-36.2) sec VBG pH 7.400 (7.330-7.430) VBG pCO2 43.3 (40.0-52.0) mmHg Sodium 124 L* (136-145) mmol/L Potassium 5.3 H (3.5-5.1) mmol/L Chloride 92 L (98-107) mmol/L Carbon Dioxide 25.0 (21.0-32.0) mmol/L Anion Gap 12.3 BUN 23.0 H (7.0-18.0) mg/dL Creatinine 1.18 (0.70-1.30) mg/dL Est GFR ( Amer) >60 (>=60) Est GFR (Non-Af Amer) >60 (>=60) BUN/Creatinine Ratio 19.5 Glucose 670 H* (74-106) mg/dL Calcium 10.4 H (8.5-10.1) mg/dL Total Bilirubin 0.5 (0.2-1.0) mg/dL AST 26 (15-37) U/L ALT 90 H (16-63) U/L Alkaline Phosphatase 346 H (46-116) U/L Troponin I High Sens 9.7 (4.0-76.1) pg/mL NT-Pro-B Natriuret Pep 104.0 (<=900.0) pg/mL Total Protein 8.1 (6.4-8.2) g/dL Albumin 3.1 L (3.4-5.0) g/dL Globulin 5.0 g/dL Albumin/Globulin Ratio 0.6 SARS-CoV-2 (PCR) Negative (NEGATIVE) POC Glucose 498 H (74-106) mg/dL Imaging Data Chest x-ray: Attestation: I have reviewed the pertinent imaging results. Radiologist's impression: Procedure: XR chest 1V ONE-VIEW CHEST RADIOGRAPH, 05/28/2023, 2:44 PM EDT COMPARISON: Chest, 03/12/2023. CLINICAL HISTORY: Shortness of breath. Findings and impression: 1. Very subtle questionable opacity in the left mid to lower lung zone may correspond to some subtle atelectasis or pneumonitis. Lungs otherwise clear. 2. Normal heart size. 3. No acute osseous abnormality. Electronically authenticated by: Danis GARZA Date: 05/28/2023 15:33 ECG Data Attestation: I personally reviewed and interpreted this ECG as follows: (sinus tachycardia at a rate of one hundred, artifact noted with no acute ST elevation or ectopy. EKG reviewed by attending physician.) Discharge Plan Discharge Chief Complaint: Shortness of Breath/Dyspnea Clinical Impression: Shortness of breath, Acute hyperglycemia, COPD (chronic obstructive pulmonary disease) Patient Disposition: Home, Self-Care Time of Disposition Decision: 18:35 Condition: Good Prescriptions / Home Meds: New levofloxacin 750 mg tablet 750 mg PO DAILY 5 Days Qty: 5 0RF No Action aspirin 81 mg tablet,delayed release (DR/EC) 81 mg PO DAILY amlodipine-benazepril 10-20 mg capsule 1 cap PO DAILY ammonium lactate 12 % lotion 1 applic TOPICAL .twice a day atorvastatin 40 mg tablet 40 mg PO .evening glipizide 10 mg tablet 10 mg PO DAILY hydroxyzine HCl 25 mg tablet 25 mg PO DAILY quetiapine 50 mg tablet 50 mg PO .hs tamsulosin 0.4 mg capsule 0.4 mg PO DAILY Spiriva Respimat 2.5 mcg/actuation mist 2 puff INHALATION Q24H escitalopram oxalate 20 mg tablet 20 mg PO DAILY albuterol sulfate [Ventolin HFA] 90 mcg/actuation HFA aerosol inhaler 2 inh inhalation QID PRN (Reason: shortness of breath or wheezing) Qty: 6.7 0RF insulin glargine [Lantus U-100 Insulin] 100 unit/mL solution 40 unit SUBCUT BID 30 Days Qty: 21 0RF metoprolol tartrate [Lopressor] 50 mg tablet 25 mg PO BID Qty: 60 0RF albuterol sulfate 90 mcg/actuation HFA aerosol inhaler INHALATION aspirin 81 mg tablet,delayed release (DR/EC) 81 mg PO DAILY atorvastatin 40 mg tablet 40 mg PO BEDTIME glipizide 10 mg tablet 10 mg PO DAILY hydroxyzine HCl 25 mg tablet 25 mg PO BID insulin glargine [Lantus Solostar U-100 Insulin] 100 unit/mL (3 mL) insulin pen SUBCUT Combivent Respimat 20-100 mcg/actuation mist 1 puff INHALATION Q6H PRN (Reason: sob) lisinopril 2.5 mg tablet 2.5 mg PO tamsulosin 0.4 mg capsule PO metoprolol tartrate 50 mg tablet quetiapine 50 mg tablet Spiriva Respimat 2.5 mcg/actuation mist INHALATION doxycycline hyclate 100 mg capsule 100 mg PO BID 7 Days Qty: 14 0RF hydrocodone-acetaminophen 5-325 mg tablet 1 tab PO Q6H naproxen 500 mg tablet 500 mg PO Q12H ondansetron HCl 4 mg tablet 4 mg PO Q6H valsartan 320 mg tablet 320 mg PO DAILY lisinopril 2.5 mg tablet 2.5 mg PO DAILY metoprolol tartrate 25 mg tablet 25 mg PO Q12H pregabalin 75 mg capsule Instructions: COPD (Chronic Obstructive Pulmonary Disease) (ED) Stand Alone Forms: Portal Instructions Referrals: Shaikh Villar MD [Primary Care Provider] - 1 week
[2023-05-28] MEDS: IPRATROPIUM/ALBUTEROL SULFATE 3 ML AMPUL.NEB IH (14:47)
[2023-05-28 15:00] LABS: Basophils Absolute Auto 0.1 10^3/uL (0.0-0.1); Basophils Percent Auto 0.5 % (0.2-2.0); Eosinophils Absolute Auto 0.2 10^3/uL (0.0-0.7); Eosinophils Percent Auto 1.6 % (0.9-7.0); Hematocrit 47.9 % (42.0-54.0); Hemoglobin 17.7 g/dL (14.0-18.0); Immature Granulocytes Abs Auto 0.04 10^3/uL (0.00-0.03); Immature Granulocytes Pct Auto 0.4 % (0.0-0.5); Lymphocytes Absolute Auto 2.8 10^3/uL (1.2-3.8); Lymphocytes Percent Auto 25.6 % (20.5-60.0); Mean Corpuscular Hemoglobin 31.1 pg (25.9-34.0); Mean Corpuscular Volume 84.2 fL (80.0-94.0); Mean Platelet Volume 11.5 fL (9.5-13.5); Monocytes Absolute Auto 0.7 10^3/uL (0.3-0.8); Monocytes Percent Auto 6.7 % (1.7-12.0); Neutrophils Absolute Auto 7.2 10^3/uL (1.4-6.5); Neutrophils Percent Auto 65.2 % (43.0-75.0); Platelet Count 286 10^3/uL (150-450); Red Blood Count 5.69 10^6/uL (4.70-6.10); Red Cell Distribution Width 11.7 % (11.0-15.0)
[2023-05-28 15:01] LABS: SARS-CoV-2 Ag NEGATIVE (NEGATIVE)
[2023-05-28 15:01] LABS: PCO2 VBG 43.3 mmHg (40.0-52.0)
[2023-05-28 15:16] LABS: INR 0.96; Partial Thromboplastin Time 28.7 sec (22.3-36.2); Prothrombin Time 10.2 sec (9.0-11.6)
[2023-05-28] MEDS: METHYLPREDNISOLONE SOD SUCC PF 125 MG/2 ML VIAL IVP (15:27)
[2023-05-28 15:33] LABS: Chloride 92 mmol/L (98-107); Potassium 5.3 mmol/L (3.5-5.1); Sodium 124 mmol/L (136-145)
[2023-05-28 15:34] LABS: Alanine Aminotransferase 90 U/L (16-63); Alkaline Phosphatase 346 U/L (46-116); Anion Gap 12.3; Aspartate Amino Transferase 26 U/L (15-37); BUN Creatinine Ratio 19.5; Bilirubin Total 0.5 mg/dL (0.2-1.0); Calcium 10.4 mg/dL (8.5-10.1); Estimated GFR (African America >60 (>=60); Estimated GFR (Non-African Ame >60 (>=60); Troponin I High Sensitivity 9.7 pg/mL (4.0-76.1)
[2023-05-28 15:35] LABS: Albumin Globulin Ratio 0.6; Albumin Level 3.1 g/dL (3.4-5.0); Total Protein 8.1 g/dL (6.4-8.2)
[2023-05-28 15:53] LABS: Glucose 670 mg/dL (74-106)
[2023-05-28] MEDS: INSULIN REGULAR 300 UNITS/3 ML 15 UNIT SUBQ (15:55)
[2023-05-28] MEDS: 0.9 % SODIUM CHLORIDE 1,000 ML 1000 ML IV (17:20)
[2023-05-28] MEDS: INSULIN REGULAR 300 UNITS/3 ML 10 UNIT SUBQ (17:23)
[2023-05-28 18:25] LABS: Glucometer 498 mg/dL (74-106)
[2023-05-28 19:18] LABS: Glucometer 421 mg/dL (74-106)
[2023-05-29 14:34] LABS: SARS-CoV-2 NAA NOT DETECTED (NOT DETECTE)
== END 2023-05-28 19:30 | disposition home or self-care (01) ==
PROVIDERS: Physician Assistant; Emergency Provider Emergency Medicine; PCP Internal Medicine
DX: R06.02 Shortness of breath (principal); J44.9 Chronic obstructive pulmonary disease, unspecified; E11.65 Type 2 diabetes mellitus with hyperglycemia; Z79.82 Long term (current) use of aspirin; Z79.899 Other long term (current) drug therapy; Z79.4 Long term (current) use of insulin; F32.A Depression, unspecified; F19.10 Other psychoactive substance abuse, uncomplicated; E78.00 Pure hypercholesterolemia, unspecified; I10 Essential (primary) hypertension; G47.00 Insomnia, unspecified; Z96.649 Presence of unspecified artificial hip joint; F17.210 Nicotine dependence, cigarettes, uncomplicated
CPT/HCPCS: 36415; 71045; 80053; 82800; 82948; 83880; 84484; 85025; 85610; 85730; 87635; 87811; 93005; 94640; 96374; 99285; J2930

== ENCOUNTER 2023-07-21 13:52 | Emergency (ER) | payer OTHER, SELFPAY ==
[2023-07-21 13:59] VITALS: BP 126/93; PULSE 56; RESP 24; TEMP 37.1; O2SAT 97; BMI 20.9
--- NOTE | 2023-07-21 14:02 | CT_ITS ---
The [address] [address] Patient Name: BROOKLYNN STEPHEN MRN: [id number] date: 1960 Sex: M Assigned Patient Location: ED.MAIN Current Patient Location: Accession/Order Number: [id number] Exam Date: 07/21/2023 15:06 Report Date: 07/21/2023 15:29 At the request of: MANDI MORTON Procedure: CT cervical spine wo con CT cervical spine wo con, 07/21/2023 3:06 PM EST INDICATION: Fall COMPARISON: Noncontrast CT of the cervical spine 08/21/2022 TECHNIQUE: Thin-section axial CT images of the entire cervical spine were acquired without contrast. Supplemental 2D reformatted images were generated and reviewed as needed. Dose reduction techniques were achieved by using automated exposure control and/or adjustment of mA and/or kV according to patient size and/or use of iterative reconstruction technique. FINDINGS: Limited due to motion artifact. Craniocervical junction within normal limits. Atlantodental distance is not widened. No prevertebral soft tissue edema. No subluxation. No grossly displaced fracture. Multilevel degenerative disc disease with facet hypertrophy. Central spinal canal appears grossly preserved. No consolidation at the lung apices. CT/CT cervical spine wo con IMPRESSION: No gross findings of acute displaced fracture or traumatic malalignment. Electronically authenticated by: HANNY ARCOS Date: 07/21/2023 15:29
--- NOTE | 2023-07-21 14:02 | ECG_ITS ---
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
--- NOTE | 2023-07-21 14:02 | XR_ITS ---
The [address] [address] Patient Name: BROOKLYNN STEPHEN MRN: [id number] date: 1960 Sex: M Assigned Patient Location: ED.MAIN Current Patient Location: ER Accession/Order Number: [id number] Exam Date: 07/21/2023 15:06 Report Date: 07/21/2023 15:33 At the request of: MANDI MORTON Procedure: XR shoulder RT min 2V EXAM: XR shoulder RT min 2V, XR chest 1V HISTORY: Fall COMPARISON: Chest study dated 05/28/2023, CT chest study dated 02/08/2023, right humerus study dated 06/20/2021 TECHNIQUE: 3 views of the right shoulder were obtained. FINDINGS: No definite acute fracture or dislocation. Mild degenerative change about the acromioclavicular joint. A few small round lucencies in the superolateral humeral head likely representing degenerative cystic changes. Soft tissues are grossly within normal limits. AP view of the chest was obtained with portable technique at 3:11 PM. FINDINGS: Heart and mediastinal contours are unremarkable in appearance. Mild patchy density in the right lower lung field and the left mid and lower lung field regions suggesting mild atelectatic, fibrotic and/or infiltrative changes. Similar findings are noted on the reviewed CT chest study from 02/08/2023. Correlate clinically. XR/XR shoulder RT min 2V IMPRESSION: Right shoulder study fails to demonstrate definite acute fracture or dislocation. Degenerative changes as described. Chest study demonstrates patchy densities bilaterally suggesting atelectatic, fibrotic and/or infiltrative changes. These findings appear similar to those noted on the reviewed CT chest study from 02/08/2023, correlate clinically. Follow-up as needed. Electronically authenticated by: SHAUNA MORALEZ Date: 07/21/2023 15:33
--- NOTE | 2023-07-21 14:02 | XR_ITS ---
The [address] [address] Patient Name: BROOKLYNN STEPHEN MRN: [id number] date: 1960 Sex: M Assigned Patient Location: ED.MAIN Current Patient Location: ER Accession/Order Number: [id number] Exam Date: 07/21/2023 15:06 Report Date: 07/21/2023 15:33 At the request of: MANDI MORTON Procedure: XR chest 1V EXAM: XR shoulder RT min 2V, XR chest 1V HISTORY: Fall COMPARISON: Chest study dated 05/28/2023, CT chest study dated 02/08/2023, right humerus study dated 06/20/2021 TECHNIQUE: 3 views of the right shoulder were obtained. FINDINGS: No definite acute fracture or dislocation. Mild degenerative change about the acromioclavicular joint. A few small round lucencies in the superolateral humeral head likely representing degenerative cystic changes. Soft tissues are grossly within normal limits. AP view of the chest was obtained with portable technique at 3:11 PM. FINDINGS: Heart and mediastinal contours are unremarkable in appearance. Mild patchy density in the right lower lung field and the left mid and lower lung field regions suggesting mild atelectatic, fibrotic and/or infiltrative changes. Similar findings are noted on the reviewed CT chest study from 02/08/2023. Correlate clinically. XR/XR chest 1V IMPRESSION: Right shoulder study fails to demonstrate definite acute fracture or dislocation. Degenerative changes as described. Chest study demonstrates patchy densities bilaterally suggesting atelectatic, fibrotic and/or infiltrative changes. These findings appear similar to those noted on the reviewed CT chest study from 02/08/2023, correlate clinically. Follow-up as needed. Electronically authenticated by: SHAUNA MORALEZ Date: 07/21/2023 15:33
--- NOTE | 2023-07-21 14:03 | CT_ITS ---
The [address] [address] Patient Name: BROOKLYNN STEPHEN MRN: [id number] date: 1960 Sex: M Assigned Patient Location: ED.MAIN Current Patient Location: Accession/Order Number: [id number] Exam Date: 07/21/2023 15:06 Report Date: 07/21/2023 15:25 At the request of: MANDI MORTON Procedure: CT head/brain wo con CT head/brain wo con, 07/21/2023 3:06 PM EST INDICATION: Fall COMPARISON: Noncontrast CT of the head 11/09/2022, 10/23/2022 TECHNIQUE: Axial CT images of the brain from skull base to vertex, including portions of the face and sinuses, were obtained without contrast. Multiplanar reformatted images were generated and reviewed as needed. FINDINGS: No intracranial mass, hydrocephalus, midline shift or acute hemorrhage. No extra-axial collection. Periventricular and deep white matter microvascular ischemic change. Jones-white matter differentiation is preserved. 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 The paranasal sinuses and mastoid air cells are clear. Orbits are within normal limits. No acute skull fracture. CT/CT head/brain wo con IMPRESSION: No acute intracranial abnormality. Electronically authenticated by: HANNY ARCOS Date: 07/21/2023 15:25
--- NOTE | 2023-07-21 14:04 | ED.GENADUL1 ---
HPI - General Adult General Chief complaint: Fall Stated complaint: fall/ head injury Time Seen by Provider: 07/21/23 13:55 History of Present Illness HPI narrative: Patient is a 62-year-old male well-known to this emergency department with a history of chronic alcoholism, drug use, COPD, poorly controlled diabetes who presents after a fall. He states approximately 3 hours ago he tripped and fell, he states he hit his head and his right shoulder and complains of these areas as painful. Documentation shows he is on aspirin, patient is not able to tell me if he takes any blood thinners. History is very difficult as the patient needs to be redirected multiple times, he initially stated that he tripped and fell, but when asked if he had a loss of consciousness he states that he passed out but is not able to tell me if he had a syncopal episode prior to or after falling. He states he does not feel right . He states he has been vomiting since he fell, he states he does not know if his sugars have been high. He has not had any other flulike illness. He arrives to the emergency department by private car and states some girl drove him to the ER. Related Data Home Medications Medication Instructions Recorded Confirmed amlodipine 10 mg-benazepril 20 mg 1 cap PO DAILY 01/31/23 02/17/23 capsule ammonium lactate 12 % lotion 1 applic topical .twice a day 01/31/23 02/17/23 aspirin 81 mg tablet,delayed 81 mg PO DAILY 01/31/23 02/17/23 release atorvastatin 40 mg tablet 40 mg PO .evening 01/31/23 02/17/23 escitalopram oxalate 20 mg tablet 20 mg PO DAILY 01/31/23 02/17/23 glipizide 10 mg tablet 10 mg PO DAILY 01/31/23 02/17/23 hydroxyzine HCl 25 mg tablet 25 mg PO DAILY 01/31/23 02/17/23 quetiapine 50 mg tablet 50 mg PO .hs 01/31/23 02/17/23 tamsulosin 0.4 mg capsule 0.4 mg PO DAILY 01/31/23 02/17/23 tiotropium bromide 2.5 2 puff inhalation Q24H 01/31/23 02/17/23 mcg/actuation mist for inhalation (Spiriva Respimat) albuterol sulfate 90 mcg/actuation inhalation 02/26/23 aerosol inhaler aspirin 81 mg tablet,delayed 81 mg PO DAILY 02/26/23 02/26/23 release atorvastatin 40 mg tablet 40 mg PO BEDTIME 02/26/23 02/26/23 glipizide 10 mg tablet 10 mg PO DAILY 02/26/23 02/26/23 hydroxyzine HCl 25 mg tablet 25 mg PO BID 02/26/23 02/26/23 insulin glargine 100 unit/mL (3 unit subcut 02/26/23 mL) subcutaneous pen (Lantus Solostar U-100 Insulin) ipratropium 20 mcg-albuterol 100 1 puff inhalation Q6H PRN sob 02/26/23 02/26/23 mcg/actuation mist for inhalation (Combivent Respimat) lisinopril 2.5 mg tablet 2.5 mg PO 02/26/23 metoprolol tartrate 50 mg tablet mg 02/26/23 quetiapine 50 mg tablet mg 02/26/23 tamsulosin 0.4 mg capsule mg PO 02/26/23 tiotropium bromide 2.5 inhalation 02/26/23 mcg/actuation mist for inhalation (Spiriva Respimat) hydrocodone 5 mg-acetaminophen 325 1 tab PO Q6H 03/12/23 03/12/23 mg tablet lisinopril 2.5 mg tablet 2.5 mg PO DAILY 03/12/23 03/12/23 metoprolol tartrate 25 mg tablet 25 mg PO Q12H 03/12/23 03/12/23 naproxen 500 mg tablet 500 mg PO Q12H 03/12/23 03/12/23 ondansetron HCl 4 mg tablet 4 mg PO Q6H 03/12/23 03/12/23 pregabalin 75 mg capsule mg 03/12/23 valsartan 320 mg tablet 320 mg PO DAILY 03/12/23 03/12/23 Previous Rx's Medication Instructions Recorded albuterol sulfate 90 mcg/actuation 2 inh inhalation QID PRN shortness 02/09/23 aerosol inhaler (Ventolin HFA) of breath or wheezing #6.7 grams insulin glargine 100 unit/mL 40 unit (0.4 mL) subcut BID 30 02/09/23 subcutaneous solution (Lantus days #21 mL U-100 Insulin) metoprolol tartrate 50 mg tablet 25 mg (1/2 x 50 mg) PO BID #60 tabs 02/09/23 (Lopressor) doxycycline hyclate 100 mg capsule 100 mg PO BID 7 days #14 caps 02/26/23 levofloxacin 750 mg tablet 750 mg PO DAILY 5 days #5 tabs 05/28/23 Allergies Allergy/AdvReac Type Severity Reaction Status Date / Time No Known Allergies AdvReac Mild Verified 04/15/23 07:55 Review of Systems ROS Constitutional Denies: fever or chills Ears, nose, mouth, and throat Denies: throat pain Cardiovascular Denies: chest pain Respiratory Reports: shortness of breath; Denies: cough Gastrointestinal Reports: nausea and vomiting; Denies: abdominal pain Musculoskeletal Reports: extremity pain and joint pain; Denies: back pain Integumentary/Breast Denies: rash Neurological Reports: headache [facility] Medical History (Updated 07/21/23 @ 16:51 by DOMONIQUE Natarajan) COPD exacerbation ?J44.1 - Chronic obstructive pulmonary disease with (acute) exacerbation (ICD-10) Drug abuse ?F19.10 - Other psychoactive substance abuse, uncomplicated (ICD-10) Depression ?F32.A - Depression, unspecified (ICD-10) Failure to thrive Chronic obstructive pulmonary disease with (acute) exacerbation ?J44.1 - Chronic obstructive pulmonary disease with (acute) exacerbation (ICD-10) Tobacco abuse ?Z72.0 - Tobacco use (ICD-10) Insomnia disorder ?G47.00 - Insomnia, unspecified (ICD-10) Hyperlipidemia associated with type 2 diabetes mellitus ?E11.69 - Type 2 diabetes mellitus with other specified complication (ICD-10) ?E78.5 - Hyperlipidemia, unspecified (ICD-10) Hypertension ?I10 - Essential (primary) hypertension (ICD-10) Insulin dependent type 2 diabetes mellitus, uncontrolled Chronic obstructive pulmonary disease ?J44.9 - Chronic obstructive pulmonary disease, unspecified (ICD-10) Hypercholesteremia ?E78.00 - Pure hypercholesterolemia, unspecified (ICD-10) Diabetes ?E11.9 - Type 2 diabetes mellitus without complications (ICD-10) Surgical History (System 04/15/23 @ 07:55 by Mya Brown) History of total hip arthroplasty ?Z96.649 - Presence of unspecified artificial hip joint (ICD-10) Social History Within the past year, how often did you have a drink containing alcohol: 4 or more times a week Within the past year, how many standard drinks containing alcohol did you have on a typical day: 1 or 2 Within the past year, how often did you have six or more drinks on one occasion: never Total score: 0 Score interpretation: Questions 2 and 3 are 0. It can be assumed that the patient's drinking is below the recommended limits. However, please confirm the accuracy of the patient's alcohol intake over the last few months. Smoking status: Current every day smoker What tobacco products do you use: cigarettes Non-prescribed substance use: former substance user, crack/cocaine and opiods/painkillers Exam Narrative Exam Narrative: Gen.: Awake, alert, in no distress Head: Normocephalic, atraumatic; well-healed scars of the head with no edema or ecchymosis. No Nguyen sign or raccoon eyes, no facial or dental injury ENT: Moist mucous membranes; C-spine is nontender and patient is noted to be moving his neck with no difficulty Respiratory: No respiratory distress, lungs clear bilaterally Cardio: Regular rate and rhythm Gastrointestinal: Abdomen is soft, nondistended and nontender to palpation, hips nontender and pelvis stable Extremities: Moves extremities equally, no injuries noted; patient is noted to raise both of his arms up above his head to put his hands behind his head to to rest on the exam cart, no bony point tenderness of the right shoulder, no obvious deformity or sulcus sign. Psych: Anxious, needs redirection Neuro: No focal neuro deficit Skin: Warm, dry, intact Constitutional Vital Signs, click to edit/add: Last Vital Signs Temp 98.7 F 07/21/23 13:59 Pulse 56 L 07/21/23 13:59 Resp 24 07/21/23 13:59 BP 126/93 H 07/21/23 13:59 Pulse Ox 94 L 07/21/23 14:27 O2 Del Method Room Air 07/21/23 14:27 O2 Flow Rate 2 07/21/23 14:27 Course Vital Signs Vital signs: Vital Signs Temperature 98.7 F 07/21/23 13:59 Pulse Rate 56 L 07/21/23 13:59 Respiratory Rate 24 07/21/23 13:59 Blood Pressure 126/93 H 07/21/23 13:59 Pulse Oximetry 97 07/21/23 13:59 Temperature 98.7 F 07/21/23 13:59 Pulse Rate 56 L 07/21/23 13:59 Respiratory Rate 24 07/21/23 13:59 Blood Pressure 126/93 H 07/21/23 13:59 Pulse Oximetry 94 L 07/21/23 14:27 Oxygen Delivery Method Room Air 07/21/23 14:27 Oxygen Delivery Flow Rate 2 07/21/23 14:27 Medical Decision Making MDM Narrative Medical decision making narrative: A full cardiac workup was ordered for the patient as he is not able to tell me conclusively if he had a syncopal episode prior to or after falling although he is awake and alert and oriented at this time. CT of the brain, CT of the C-spine, chest x-ray and right shoulder x-rays were ordered, there are atelectasis chronic changes noted on the chest x-ray. Labs show hyperglycemia although the patient has no significant critical abnormalities and was treated with IV fluids. He ambulated to the bathroom with no difficulty. He will be discharged home to follow-up with PCP, return to the ER if symptoms change or worsen. Medical Records Medical records reviewed: Yes I reviewed the patient's medical records Lab Data Lab results reviewed: Yes I reviewed the patient's lab results Labs: Lab Results 07/21/23 07/21/23 Range/Units 14:03 14:58 WBC 14.3 H (4.0-11.0) 10^3/uL RBC 5.85 (4.70-6.10) 10^6/uL Hgb 17.8 (14.0-18.0) g/dL Hct 50.9 (42.0-54.0) % MCV 87.0 (80.0-94.0) fL MCH 30.4 (25.9-34.0) pg MCHC 35.0 (29.9-35.2) g/dL RDW 12.6 (11.0-15.0) % Plt Count 242 (150-450) 10^3/uL MPV 11.5 (9.5-13.5) fL Neut % (Auto) 76.5 H (43.0-75.0) % Lymph % (Auto) 14.4 L (20.5-60.0) % Fajardo % (Auto) 8.2 (1.7-12.0) % Eos % (Auto) 0.1 L (0.9-7.0) % Baso % (Auto) 0.5 (0.2-2.0) % Neut # (Auto) 10.9 H (1.4-6.5) 10^3/uL Lymph # (Auto) 2.1 (1.2-3.8) 10^3/uL [place]ardo # (Auto) 1.2 H (0.3-0.8) 10^3/uL Eos # (Auto) 0.0 (0.0-0.7) 10^3/uL Baso # (Auto) 0.1 (0.0-0.1) 10^3/uL Abs Immat Gran (auto) 0.05 H (0.00-0.03) 10^3/uL Imm/Tot Granulo (auto) 0.3 (0.0-0.5) % PT 10.6 (9.0-11.6) sec INR 1.00 Sodium 125 L (136-145) mmol/L Potassium 4.9 (3.5-5.1) mmol/L Chloride 91 L (98-107) mmol/L Carbon Dioxide 24.7 (21.0-32.0) mmol/L Anion Gap 14.2 BUN 24.0 H (7.0-18.0) mg/dL Creatinine 1.06 (0.70-1.30) mg/dL Est GFR ( Amer) >60 (>=60) Est GFR (Non-Af Amer) >60 (>=60) BUN/Creatinine Ratio 22.6 Glucose 406 H (74-106) mg/dL Lactate 2.3 H* (0.4-2.0) mmol/L Calcium 10.2 H (8.5-10.1) mg/dL Total Bilirubin 0.8 (0.2-1.0) mg/dL AST 19 (15-37) U/L ALT 34 (16-63) U/L Alkaline Phosphatase 156 H (46-116) U/L Troponin I High Sens 10.3 (4.0-76.1) pg/mL Total Protein 8.2 (6.4-8.2) g/dL Albumin 2.9 L (3.4-5.0) g/dL Globulin 5.3 g/dL Albumin/Globulin Ratio 0.5 Lipase 21.0 (16.0-77.0) U/L TSH 0.971 (0.358-3.740) uIU/mL Ethanol Quant <3 mg/dL Acetone, Qual Negative (NEGATIVE) POC Glucose 420 H (74-106) mg/dL ECG Data Attestation: I personally reviewed and interpreted this ECG as follows: (Normal sinus rhythm at a rate of 96, no acute ST elevation or ectopy. EKG reviewed by attending physician) Discharge Plan Discharge Chief Complaint: Fall Clinical Impression: Closed head injury, Hyperglycemia Patient Disposition: Home, Self-Care Time of Disposition Decision: 16:51 Condition: Good Prescriptions / Home Meds: No Action aspirin 81 mg tablet,delayed release (DR/EC) 81 mg PO DAILY amlodipine-benazepril 10-20 mg capsule 1 cap PO DAILY ammonium lactate 12 % lotion 1 applic TOPICAL .twice a day atorvastatin 40 mg tablet 40 mg PO .evening glipizide 10 mg tablet 10 mg PO DAILY hydroxyzine HCl 25 mg tablet 25 mg PO DAILY quetiapine 50 mg tablet 50 mg PO .hs tamsulosin 0.4 mg capsule 0.4 mg PO DAILY Spiriva Respimat 2.5 mcg/actuation mist 2 puff INHALATION Q24H escitalopram oxalate 20 mg tablet 20 mg PO DAILY albuterol sulfate [Ventolin HFA] 90 mcg/actuation HFA aerosol inhaler 2 inh inhalation QID PRN (Reason: shortness of breath or wheezing) Qty: 6.7 0RF insulin glargine [Lantus U-100 Insulin] 100 unit/mL solution 40 unit SUBCUT BID 30 Days Qty: 21 0RF metoprolol tartrate [Lopressor] 50 mg tablet 25 mg PO BID Qty: 60 0RF albuterol sulfate 90 mcg/actuation HFA aerosol inhaler INHALATION aspirin 81 mg tablet,delayed release (DR/EC) 81 mg PO DAILY atorvastatin 40 mg tablet 40 mg PO BEDTIME glipizide 10 mg tablet 10 mg PO DAILY hydroxyzine HCl 25 mg tablet 25 mg PO BID insulin glargine [Lantus Solostar U-100 Insulin] 100 unit/mL (3 mL) insulin pen SUBCUT Combivent Respimat 20-100 mcg/actuation mist 1 puff INHALATION Q6H PRN (Reason: sob) lisinopril 2.5 mg tablet 2.5 mg PO tamsulosin 0.4 mg capsule PO metoprolol tartrate 50 mg tablet quetiapine 50 mg tablet Spiriva Respimat 2.5 mcg/actuation mist INHALATION doxycycline hyclate 100 mg capsule 100 mg PO BID 7 Days Qty: 14 0RF hydrocodone-acetaminophen 5-325 mg tablet 1 tab PO Q6H naproxen 500 mg tablet 500 mg PO Q12H ondansetron HCl 4 mg tablet 4 mg PO Q6H valsartan 320 mg tablet 320 mg PO DAILY lisinopril 2.5 mg tablet 2.5 mg PO DAILY metoprolol tartrate 25 mg tablet 25 mg PO Q12H pregabalin 75 mg capsule levofloxacin 750 mg tablet 750 mg PO DAILY 5 Days Qty: 5 0RF Instructions: Head Injury (ED), Diabetic Hyperglycemia (ED) Stand Alone Forms: Portal Instructions Referrals: Shaikh Villar MD [Primary Care Provider] - 1 week
[2023-07-21 14:23] LABS: Glucometer 420 mg/dL (74-106)
[2023-07-21 14:27] VITALS: O2SAT 94
[2023-07-21 15:07] LABS: Basophils Absolute Auto 0.1 10^3/uL (0.0-0.1); Basophils Percent Auto 0.5 % (0.2-2.0); Eosinophils Percent Auto 0.1 % (0.9-7.0); Hematocrit 50.9 % (42.0-54.0); Hemoglobin 17.8 g/dL (14.0-18.0); Immature Granulocytes Abs Auto 0.05 10^3/uL (0.00-0.03); Immature Granulocytes Pct Auto 0.3 % (0.0-0.5); Lymphocytes Absolute Auto 2.1 10^3/uL (1.2-3.8); Lymphocytes Percent Auto 14.4 % (20.5-60.0); Mean Corpuscular Hemoglobin 30.4 pg (25.9-34.0); Mean Platelet Volume 11.5 fL (9.5-13.5); Monocytes Absolute Auto 1.2 10^3/uL (0.3-0.8); Monocytes Percent Auto 8.2 % (1.7-12.0); Neutrophils Absolute Auto 10.9 10^3/uL (1.4-6.5); Neutrophils Percent Auto 76.5 % (43.0-75.0); Platelet Count 242 10^3/uL (150-450); Red Blood Count 5.85 10^6/uL (4.70-6.10); Red Cell Distribution Width 12.6 % (11.0-15.0); White Blood Count 14.3 10^3/uL (4.0-11.0)
[2023-07-21 15:22] LABS: Acetone NEGATIVE (NEGATIVE)
[2023-07-21] MEDS: 0.9 % SODIUM CHLORIDE 1,000 ML 1000 ML IV (15:23)
[2023-07-21 15:28] LABS: Prothrombin Time 10.6 sec (9.0-11.6)
[2023-07-21 15:34] LABS: Alanine Aminotransferase 34 U/L (16-63); Albumin Globulin Ratio 0.5; Albumin Level 2.9 g/dL (3.4-5.0); Alkaline Phosphatase 156 U/L (46-116); Anion Gap 14.2; Aspartate Amino Transferase 19 U/L (15-37); BUN Creatinine Ratio 22.6; Bilirubin Total 0.8 mg/dL (0.2-1.0); Calcium 10.2 mg/dL (8.5-10.1); Carbon Dioxide 24.7 mmol/L (21.0-32.0); Chloride 91 mmol/L (98-107); Estimated GFR (African America >60 (>=60); Estimated GFR (Non-African Ame >60 (>=60); Globulin 5.3 g/dL; Glucose 406 mg/dL (74-106); Potassium 4.9 mmol/L (3.5-5.1); Sodium 125 mmol/L (136-145); Thyroid Stimulating Hormone 0.971 uIU/mL (0.358-3.740); Total Protein 8.2 g/dL (6.4-8.2); Troponin I High Sensitivity 10.3 pg/mL (4.0-76.1)
[2023-07-21 15:35] LABS: Ethanol <3 mg/dL
[2023-07-21 15:36] LABS: Lactate/Lactic Acid 2.3 mmol/L (0.4-2.0)
[2023-07-21 17:34] VITALS: BP 158/97; PULSE 97; RESP 20; O2SAT 97
== END 2023-07-21 18:20 | disposition home or self-care (01) ==
PROVIDERS: Physician Assistant; Emergency Provider Emergency Medicine; PCP Internal Medicine
DX: S09.8XXA Other specified injuries of head, initial encounter (principal); E11.65 Type 2 diabetes mellitus with hyperglycemia; J44.9 Chronic obstructive pulmonary disease, unspecified; F10.20 Alcohol dependence, uncomplicated; Z79.82 Long term (current) use of aspirin; Z79.84 Long term (current) use of oral hypoglycemic drugs; Z79.899 Other long term (current) drug therapy; Z79.4 Long term (current) use of insulin; F19.10 Other psychoactive substance abuse, uncomplicated; G47.00 Insomnia, unspecified; I10 Essential (primary) hypertension; E78.5 Hyperlipidemia, unspecified; Z96.649 Presence of unspecified artificial hip joint; F17.210 Nicotine dependence, cigarettes, uncomplicated; W19.XXXA Unspecified fall, initial encounter; Y90.0 Blood alcohol level of less than 20 mg/100 ml
CPT/HCPCS: 36415; 70450; 71045; 72125; 73030; 80053; 80307; 80320; 82009; 82948; 83605; 83690; 84443; 84484; 85025; 85610; 93005; 96360; 96361; 99285

== ENCOUNTER 2023-09-01 18:27 | Inpatient (IN) | payer OTHER, SELFPAY ==
[2023-09-01] VITALS (19 sets, daily range): BP systolic 123–146; BP diastolic 70–105; PULSE 95–111; RESP 17–30; O2SAT 86–99; BMI 18.1
--- OUTSIDE RECORDS SUMMARY | 2023-09-01 18:35 | XMS_ITS | CCD ---
Author Name Unknown Address [address] [facility] [address] [place] [address] Organization [facility] Care Team Providers Care Hotel Valet Attendant Name Role Phone PROVIDER, UNKNOWN Attending Unavailable PROVIDER, UNKNOWN Admitting Unavailable PAY ., DR OVERTON Consulting Unavailable PAY ., DR OVERTON Attending Unavailable PAY ., DR OVERTON Admitting Unavailable FAWWAD, VOSS H Primary Care Unavailable CHRISTIANO TORRES Consulting Unavailable TARIK GARZA Consulting Unavailable MALLORY, DR SOPHIE Hunter Consulting Unavailable BELINDA BERNSTEIN Attending Unavailable DAY BELINDA D Admitting Unavailable FAWWAD, VOSS H Primary Care Unavailable BELINDA BERNSTEIN Consulting Unavailable TARA MASON Consulting Unavailable PREMA ., DR JOHNSON Consulting Unavailable PREMA ., DR JOHNSON Attending Unavailable HAY ., DR JOHNSON Admitting Unavailable FAWWAD, VOSS H Primary Care Unavailable SOPHIE NICK Consulting Unavailable BORA MCDANIEL Consulting Unavailable DANIS GARCIA Consulting Unavailable DUGLAS, DR MARCEL Conroy Consulting UnavailCHRISTIANO Kerns Attending Unavailable CHRISTIANO TORRES Admitting Unavailable FAWWAD, VOSS H Primary Care Unavailable CHRISTIANO TORRES Consulting Unavailable MAIRA LEDEZMA Consulting Unavailable CONSTANCE, DR BHAVYA Magaña Consulting Unavailable CONSTANCE, DR BHAVYA Magaña Attending Unavailable CONSTANCE, DR BHAVYA Magaña Admitting Unavailable FAWWAD, VOSS H Primary Care Unavailable PREMA ., DR JOHNSON Consulting Unavailable MAIRA LEDEZMA Consulting Unavailable FAWWAD, VOSS H Primary Care Unavailable JOSÉ FINCH Attending Unavailable JOSÉ FINCH Admitting Unavailable DR FELIX ACHARYA V Consulting Unavailable FAWWAD, VOSS H Primary Care Unavailable FAWWAD, VOSS H Attending Unavailable FAWWAD, VOSS H Admitting Unavailable FAWWAD, VOSS H Consulting Unavailable TRICIAIVON Consulting Unavailable FAWWAD, VOSS H Primary Care Unavailable IVON CLARKE Attending Unavailable TRICIAIVON Admitting Unavailable FAWWAD, VOSS H Primary Care Unavailable HIGHLANDER, JOSÉ D Attending Unavailable HIGHLANDER, PETER D Admitting Unavailable FAWWAD, VOSS H Primary Care Unavailable HIGHLANDER, PETER D Admitting Unavailable HIGHLANDER, PETER D Attending Unavailable FAWWAD, VOSS H Primary Care Unavailable HIGHLANDER, PETER D Attending Unavailable HIGHLANDER, PETER D Admitting Unavailable FAWWAD, VOSS H Primary Care Unavailable HIGHLANDER, PETER D Attending Unavailable HIGHLANDER, PETER D Admitting Unavailable NERISSA, JENNA Primary Care Unavailable HOY ., DR ERNANDEZ Admitting Unavailable HOY ., DR ERNANDEZ Attending Unavailable HOY ., DR ERNANDEZ Consulting Unavailable HAY ., DR JOHNSON Consulting Unavailable NERISSA, JENNA Primary Care Unavailable NADERER, DR BHAVYA Magaña Admitting Unavailable NADERER, DR BHAVYA Magaña Attending Unavailable NADERER, DR BHAVYA Magaña Consulting Unavailable HAY ., DR JOHNSON Consulting Unavailable COOPER ., DR LA Forrest Consulting Unavailable COOPER ., DR LA Forrest Attending Unavailable COOPER ., DR LA Forrest Admitting Unavailable FAWWAD, VOSS H Primary Care Unavailable CEDAR VALE, DR FELIX Garcia Consulting Unavailable ZIEBER, DR SOPHIE Hunter Consulting Unavailable NADERER, DR BHAVYA Magaña Consulting Unavailable HUANG ., BORA Consulting Unavailable FAWWAD, VOSS H Consulting Unavailable GOMEZ, BANDAR Consulting Unavailable HAY ., DR JOHNSON Attending Unavailable HAY ., DR JOHNSON Admitting Unavailable SELENE .DOMONIQUE Consulting Unavailabl e FAWWAD, VOSS H Primary Care Unavailable HAY ., DR JOHNSON Consulting Unavailable CLARE COY Consulting Unavailable Unlu, Lashaun Consulting Unavailable MD Zachariah Saldaña Jr Emergency Provider NON STAFF Primary Care Provider UnavailDO Devin Aleman Admit Provider DO Devin Starks Attending Provider [phone] NON STAFF Primary Care Unavailable Honorio Ibarra Admitting Unavailab Honorio [place] Attending Unavailab Devin Dunaway Admitting Unavailable NON STAFF Primary Care Unavailable Devin Starks Unavailable Martha Johnson Consulting Unavailable Olena Ferraro Consulting Unavailable Syl Armando Consulting Unavailable Lashae Scott Consulting Unavailable Miranda James Consulting Unavailable Nova Bills Consulting Unavailable Fartun Duran Consulting Unavailable Shashi Salinas Consulting Unavailable Bayron Singer Consulting Unavailable Yuan Strauss Consulting UnavailAbner Morocho Consulting Unavailable Monika Cardona Consulting Unavailable Francisca Santiago Consulting UnavailMelinda Hendricks Consulting Unavailable Zane [place] Consulting Unavailable Yanely Carty Consulting Unavailable Gypsy Rivera Consulting Unavailable Fermin Rodríguez Consulting Unavailable Onel Couch Consulting Unavailable Ranulfo Adams Consulting Unavailable Hyacinth Henning Consulting Unavailable Choco Gloria Consulting UnavailFidel Jenkins Consulting Unavailable Shabbir Wilde Unavailable Eyad Stoddard Consulting Unavailable Patricia Beauchamp Unavailable Domenico Inman Consulting Unavailable Blayne Lemon Consulting Unavailable ObMadeleine delgado Consulting Unavailable Daniel Cobb Consulting Unavailable DaromaEnder hunter Consulting Unavailable Mahogany Pedraza Consulting Unavailable Yohana Bolaños Consulting Unavailable Mikey Bartholomew Consulting Unavailable Bobby Jacobson Consulting Unavailable Elva Jean Baptiste Consulting Unavailable Joon Pascal Consulting Unavailable Medications Current Medications Medication Drug Class(es) Dates Sig (Normalized) Sig (Original) acetaminophen 325 mg / HYDROcodone bitartrate 5 mg oral tablet (3 sources) Opioid Agonist Start: 03-21-2020 take 1 tablet by mouth every four to six hours Hydrocodone-Aceta minophen Active 1 TAB PO EVERY 4-6 HOURS 70 14 March 21, 2020 Start: 03-21-2020 End: 03-21-2020 take 1 tablet by mouth every six hours Hydrocodone-Acetaminophen Discontinued 1 TAB PO Q6H 56 14 March 21, 2020 March 21, 2020 8:01am Start: 03-14-2020 End: 03-21-2020 take 1 tablet by mouth every eight hours Hydrocodone-Acetaminophen Discontinued 1 TAB PO Q8H March 14, 2020 12:00am March 21, 2020 8:00am [id number] 200 actuat albuterol 0.09 mg/actuat metered dose inhaler (1 source) beta2-Adrenergic Agonist Start: 02-14-2020 take 90 ug by inhalation four times daily Albuterol Sulfate Active 90 MCG INHALATION Four times daily February 14, 2020 12:00am 120 actuat albuterol 0.1 mg/actuat / ipratropium bromide 0.02 mg/actuat inhalation spray (1 source) Anticholinergic, beta2-Adrenergic Agonist Start: 02-14-2020 take 20-100 ug by inhalation four times daily Ipratropium-Albut jillian (Combivent Respimat) 20-100 mcg/actuation mist Active 20 - 100 PUFF INHALATION Four times daily February 14, 2020 12:00am amLODIPine 10 mg oral tablet (1 source) Dihydropyridine Calcium Channel Yvonne Start: 02-14-2020 take 10 mg by mouth once daily Amlodipine Active 10 MG PO Daily February 14, 2020 12:00am aspirin 81 mg delayed release oral tablet (1 source) Platelet Aggregation Inhibitor, Nonsteroidal Anti-inflammatory Drug Start: 02-14-2020 take 81 mg by mouth once daily Aspirin Active 81 MG PO Daily February 14, 2020 12:00am atorvastatin 40 mg oral tablet (1 source) HMG-CoA Reductase Inhibitor Start: 02-14-2020 take 40 mg by mouth once daily Atorvastatin Active 40 MG PO Daily February 14, 2020 12:00am diclofenac sodium 0.01 mg/mg topical gel (1 source) Nonsteroidal Anti-inflammatory Drug Start: 02-14-2020 apply 2 g topically three times daily Diclofenac Sodium Active 2 GM TOPICAL Three times daily February 14, 2020 12:00am escitalopram 10 mg oral tablet (2 sources) Serotonin Reuptake Inhibitor Start: 02-14-2020 take 10 mg by mouth once daily Escitalopram Oxalate Active 10 MG PO Daily February 14, 2020 12:00am Start: 02-14-2020 End: 02-14-2020 take 20 mg by mouth once daily Escitalopram Oxalate Di scontinued 20 MG PO Daily February 14, 2020 12:00am February 14, 2020 12:41am glimepiride 2 mg oral tablet (1 source) Sulfonylurea Start: 02-14-2020 take 2 mg by mouth once daily Glimepiride Active 2 MG PO Daily February 14, 2020 12:00am 3 ml insulin degludec 100 unt/ml pen injector (1 source) Insulin Analog Start: 02-14-2020 Insulin Deglud ec (Tresiba Flextouch U-100) 100 unit/mL (3 mL) insulin pen Active 80 UNIT SUBCUT Daily February 14, 2020 12:00am lisinopril 40 mg oral tablet (2 sources) Angiotensin Converting Enzyme Inhibitor Start: 03-14-2020 take 40 mg by mouth once daily Lisinopril Active 40 MG PO Daily March 14, 2020 12:00am Start: 02-14-2020 End: 02-15-2020 take 40 mg by mouth once daily Lisinopril Discontinued 40 MG PO Daily February 14, 2020 12:00am February 15, 2020 9:31am ondansetron 4 mg disintegrating oral tablet (1 source) Serotonin-3 Receptor Antagonist Start: 02-14-2020 take 4 mg by mouth every six hours Ondansetron Active 4 MG PO Q6H February 14, 2020 12:00am pregabalin 75 mg oral capsule (3 sources) Start: 02-15-2020 End: 03-14-2020 take 75 mg by mouth twice daily Pregabalin Active 75 MG PO Twice daily March 14, 2020 8:38am Start: 02-14-2020 End: 02-15-2020 take 150 mg by mouth three times daily Pregabalin Discontinued 150 MG PO Three times daily February 14, 2020 12:00am February 15, 2020 9:31am 60 actuat tiotropium 0.0025 mg/actuat inhalation spray (1 source) Anticholinergic Start: 02-14-2020 take 1 puff(s) by inhalation once daily Tiotropium Mathis (Spiriva Respimat) 2.5 mcg/actuation mist Active 2 PUFF INHALATION Daily February 14, 2020 12:00am Problems Active Problems Problem Classification Problem Date Documented Da te Episodic/Chronic Acquired foot deformities (1 source) Other acquired deformities of right foot; Translations: [OTHER ACQUIRED DEFORMITIES RT FOOT] Onset: 10-29-2022 Episodic Acquired foot deformities (1 source) Other acquired deformities of left foot; Translations: [OTHER ACQUIRED DEFORMITIES LT FOOT] Onset: 10-29-2022 Episodic Acute and unspecified renal failure (1 source) Acute renal failure syndrome; Translations: [Acute kidney failure, unspecified] 02-14-2020 Episodic Acute cerebrovascular disease (2 sources) Nontraumatic subdural hemorrhage, unspecified; Translations: [Nontraumatic acute subdural hemorrhage] Onset: 10-29-2022 Chronic Anxiety disorders (2 sources) Anxiety disorder, unspecified; Translations: [Generalized anxiety disorder] Onset: 02-11-2022 Chronic Chronic obstructive pulmonary disease and bronchiectasis (5 sources) Chronic obstructive pulmonary disease, unspecified; Translations: [Chronic obstructive pulmonary disease with (acute) exacerbation] Onset: 12-01-2022 Chronic Chronic ulcer of skin (2 sources) Non-pressure chronic ulcer of right heel and midfoot limited to breakdown of skin; Translations: [Non-pressure chronic ulcer of other part of right foot with unspecified severity] Onset: 08-04-2022 Chronic Conditions associated with dizziness or vertigo (4 sources) Dizziness and giddiness; Translations: [DIZZINESS AND GIDDINESS] Onset: 12-08-2022 Episodic Diabetes mellitus with complications (15 sources) Type 2 diabetes mellitus with hyperglycemia; Translations: [Type 2 diabetes mellitus with foot ulcer] Onset: 02-08-2022 Chronic Diabetes mellitus without complication (1 source) Type 2 diabetes mellitus without complications; Translations: [TYPE 2 DM WITHOUT COMPLICATIONS] Onset: 12-10-2022 Chronic Diseases of white blood cells (1 source) Leukocytosis; Translations: [Elevated white blood cell count, unspecified] 02-14-2020 Chronic Disorders of lipid metabolism (1 source) Hyperlipidemia, unspecified; Translations: [HYPERLIPIDEMIA UNSPECIFIED] Onset: 10-29-2022 Chronic Esophageal disorders (1 source) Gastro-esophageal reflux disease without esophagitis; Translations: [GERD WITHOUT ESOPHAGITIS] Onset: 08-20-2022 Chronic Essential hypertension (1 source) Essential (primary) hypertension; Translations: [ESSENTIAL PRIMARY HYPERTENSION] Onset: 12-10-2022 Chronic Fluid and electrolyte disorders (2 sources) Dehydration; Translations: [Hypo-osmolality and hyponatremia] Onset: 08-26-2022 Episodic Hyperplasia of prostate (1 source) Benign prostatic hyperplasia without lower urinary tract symptoms; Translations: [BENIGN PROSTATIC HYPRPLASIA WO LUTS] Onset: 12-10-2022 Chronic Mycoses (1 source) Tinea pedis; Translations: [TINEA PEDIS] Onset: 10-29-2022 Episodic Other aftercare (1 source) [facility] (current) use of aspirin; Translations: [JAIL CURRENT USE OF ASPIRIN] Onset: 12-10-2022 Episodic Other aftercare (1 source) Other ocean transportation intermediary (current) drug therapy; Translations: [OTH JAIL CURRENT DRUG THERAPY] Onset: 12-10-2022 Episodic Other aftercare (1 source) long term care pharmacist (current) use of insulin; Translations: [LEGISLATIVE CORRESPONDENT CURRENT USE OF INSULIN] Onset: 12-10-2022 Episodic Other aftercare (1 source) [facility] (current) use of oral hypoglycemic drugs; Translations: [JAIL USE ORAL HYPOGLYCEMIC DX] Onset: 12-02-2022 Episodic Other aftercare (1 source) [facility] (current) use of inhaled steroids; Translations: [JAIL USE OF INHALED STEROIDS] Onset: 10-29-2022 Episodic Other circulatory disease (1 source) Personal history of other diseases of the circulatory system; Translations: [PERSONAL HISTORY OTH DZ CIRC SYSTEM] Onset: 12-10-2022 Episodic Other connective tissue disease (1 source) Presence of unspecified artificial hip joint; Translations: [PRESENCE UNS ARTIFICIAL HIP JOINT] Onset: 12-10-2022 Chronic Other connective tissue disease (1 source) Plantar fascial fibromatosis; Translations: [PLANTAR FASCIAL FIBROMATOSIS] Onset: 10-29-2022 Episodic Other connective tissue disease (1 source) Pain in right foot; Translations: [PAIN IN RIGHT FOOT] Onset: 10-29-2022 Episodic Other connective tissue disease (1 source) Pain in left foot; Translations: [PAIN IN LEFT FOOT] Onset: 10-29-2022 Episodic Other fractures (1 source) Compression fracture of L2; Translations: [Wedge compression fracture of second lumbar vertebra, initial encounter for closed fracture] 02-15-2020 Episodic Other hematologic conditions (1 source) Erythrocytosis; Translations: [Secondary polycythemia] 02-14-2020 Episodic Other injuries and conditions due to external causes (3 sources) Unspecified injury of thorax, initial encounter; Translations: [UNSPECIFIED INJURY THORAX INITIAL] Onset: 12-03-2022 Episodic Other lower respiratory disease (3 sources) Shortness of breath; Translations: [SHORTNESS OF BREATH] Onset: 11-27-2022 Episodic Other lower respiratory disease (1 source) Personal history of pneumonia (recurrent); Translations: [PERSONAL HX OF PNEUMONIA RECURRENT] Onset: 12-01-2022 Episodic Other nutritional; endocrine; and metabolic disorders (1 source) Hypercalcemia; Translations: [Hypercalcemia] 02-14-2020 Chronic Other skin disorders (1 source) Corns and callosities; Translations: [CORNS AND CALLOSITIES] Onset: 10-29-2022 Episodic Peripheral and visceral atherosclerosis (1 source) Peripheral vascular disease, unspecified; Translations: [PERIPHERAL VASCULAR DISEASE UNS] Onset: 09-06-2022 Chronic Pneumonia (except that caused by tuberculosis or sexually transmitted disease) (1 source) Pneumonia, unspecified organism; Translations: [PNEUMONIA UNSPECIFIED ORGANISM] Onset: 12-02-2022 Episodic Residual codes; unclassified (4 sources) Altered mental status, unspecified; Translations: [ALTERED MENTAL STATUS UNSPECIFIED] Onset: 11-09-2022 Episodic Respiratory failure; insufficiency; arrest (adult) (1 source) Acute respiratory failure with hypoxia; Translations: [ACUTE RESPIRATORY FAIL W/HYPOXIA] Onset: 12-02-2022 Episodic Screening and history of mental health and substance abuse codes (1 source) Personal history of nicotine dependence; Translations: [PERSONAL HISTORY OF NICOTINE DEPEND] Onset: 12-02-2022 Episodic Septicemia (except in labor) (4 sources) Sepsis, unspecified organism; Translations: [Severe sepsis without septic shock] Onset: 11-25-2022 Episodic Substance-related disorders (6 sources) Cocaine abuse, in remission; Translations: [Nicotine dependence, cigarettes, uncomplicated] Onset: 08-26-2022 Chronic Substance-related disorders (1 source) Cannabis use, unspecified, uncomplicated; Translations: [CANNABIS USE UNS UNCOMPLICATED] Onset: 11-11-2022 Episodic Superficial injury; contusion (1 source) Contusion of right front wall of thorax, initial encounter; Translations: [CONTUS RT FRONT WALL THORAX INITIAL] Onset: 12-08-2022 Episodic Unclassified (1 source) PERSONAL HISTORY OF COVID-19; Translations: [PERSONAL HISTORY OF COVID-19] Onset: 12-10-2022 Unclassified (1 source) CONTACT W/AND (SUSP) EXPOS COVID-19; Translations: [CONTACT W/AND (SUSP) EXPOS COVID-19] Onset: 11-11-2022 Unclassified (1 source) ACIDOSIS UNSPECIFIED; Translations: [ACIDOSIS UNSPECIFIED] Onset: 08-26-2022 Unclassified (1 source) Traumatic pneumothorax, initial encounter; Translations: [Traumatic pneumothorax, initial encounter] Onset: 03-03-2023 Past or Other Problems Problem Classification Problem Date Documented Date Episodic/Chronic Crushing injury or internal injury (1 source) Contusion of lung, unilateral, initial encounter; Translations: [Contusion of lung, unilateral, initial encounter] Onset: 03-03-2023 Episodic E Codes: Fall (2 sources) Fall on same level, unspecified, initial encounter; Translations: [Other fall from one level to another, initial encounter] Onset: 12-08-2022 Episodic Intracranial injury (1 source) Personal history of traumatic brain injury; Translations: [Personal history of traumatic brain injury] Onset: 03-03-2023 Episodic Malaise and fatigue (4 sources) Weakness; Translations: [WEAKNESS] Onset: 12-18-2021 Episodic Other circulatory disease (4 sources) Other specified symptoms and signs involving the circulatory and respiratory systems; Translations: [OTH SPEC SX SIGNS INVLV CIRC RS] Onset: 09-01-2022 Episodic Other fractures (1 source) Multiple fractures of ribs, left side, initial encounter for closed fracture; Translations: [Multiple fractures of ribs, left side, initial encounter for closed fracture] Onset: 03-03-2023 Episodic Other fractures (1 source) Unspecified fracture of unspecified lumbar vertebra, initial encounter for closed fracture; Translations: [Unspecified fracture of unspecified lumbar vertebra, initial encounter for closed fracture] Onset: 03-03-2023 Episodic Other injuries and conditions due to external causes (1 source) Underdosing of insulin and oral hypoglycemic [antidiabetic] drugs, initial encounter; Translations: [UNDRDOS INSULIN ORL HG RX INIT ENC] Onset: 12-24-2021 Episodic Residual codes; unclassified (1 source) Patient's other noncompliance with medication regimen; Translations: [PT OTH NONCOMPLIANCE W/ MED REGIMEN] Onset: 08-26-2022 Episodic Residual codes; unclassified (3 sources) Disorientation, unspecified; Translations: [DISORIENTATION UNSPECIFIED] Onset: 08-21-2022 Episodic Results Test Name Value Interpretation Reference Range Facility Glucose Poct Glucometerson 0 03-10-2023 Glucose [Mass/Vol] 315 mg/dL Normal [facility] Comment on above: Result Comment: [place] [facility] Glucose Reference Range is dependent on time and content of last meal. Glucose of more than 200 mg/dL in a nonstressed, ambulatory subject supports the diagnosis of Diabetes Mellitus. PERFORMED BY: [address] [place] [id number] PATHOLOGIST PATIENT SCHEDULER DEONNA COURTNEY M.D. Performed By: #### G LULS ####Point of Care testing, Glucose Poct Glucometerson 0 03-09-2023 Glucose [Mass/Vol] 185 mg/dL Normal [facility] Comment on above: Result Comment: [place] [facility] Glucose Reference Range is dependent on time and content of last meal. Glucose of more than 200 mg/dL in a nonstressed, ambulatory subject supports the diagnosis of Diabetes Mellitus. PERFORMED BY: [address] [id number] PATHOLOGIST PATIENT SCHEDULER DEONNA COURTNEY M.D. Performed By: #### G LULS ####Point of Care testing, Glucose [Mass/Vol] 322 mg/dL Normal [facility] Comment on above: Result Comment: [place] [facility] Glucose Reference Range is dependent on time and content of last meal. Glucose of more than 200 mg/dL in a nonstressed, ambulatory subject supports the diagnosis of Diabetes Mellitus. PERFORMED BY: [address] [place] [address] PATHOLOGIST PATIENT SCHEDULER DEONNA COURTNEY M.D. Performed By: #### G LULS ####Point of Care testing, Glucose Poct Glucometerson 0 03-08-2023 Glucose [Mass/Vol] 339 mg/dL Normal [facility] Comment on above: Result Comment: [place] Glucose Reference Range is dependent on time and content of last meal. Glucose of more than 200 mg/dL in a nonstressed, ambulatory subject supports the diagnosis of Diabetes Mellitus. PERFORMED BY: [address] [place] [address] PATHOLOGIST PATIENT SCHEDULER DEONNA COURTNEY M.D. Performed By: #### G LULS ####Point of Care testing, Glucose [Mass/Vol] 328 mg/dL Normal [facility] Comment on above: Result Comment: [facility] Glucose Reference Range is dependent on time and content of last meal. Glucose of more than 200 mg/dL in a nonstressed, ambulatory subject supports the diagnosis of Diabetes Mellitus. PERFORMED BY: [facility] [address] [address] PATHOLOGIST PATIENT SCHEDULER DEONNA COURTNEY M.D. Performed By: #### G LULS ####Point of Care testing, Glucose [Mass/Vol] 260 mg/dL Normal [facility] Comment on above: Result Comment: [facility] Glucose Reference Range is dependent on time and content of last meal. Glucose of more than 200 mg/dL in a nonstressed, ambulatory subject supports the diagnosis of Diabetes Mellitus. PERFORMED BY: [facility] [address] [place] [address] PATHOLOGIST PATIENT SCHEDULER DEONNA COURTNEY M.D. Performed By: #### G LULS ####Point of Care testing, Glucose [Mass/Vol] 368 mg/dL Normal [facility] Comment on above: Result Comment: [facility] Glucose Reference Range is dependent on time and content of last meal. Glucose of more than 200 mg/dL in a nonstressed, ambulatory subject supports the diagnosis of Diabetes Mellitus. PERFORMED BY: [facility] [address] [place] [address] PATHOLOGIST PATIENT SCHEDULER DEONNA COURTNEY M.D. Performed By: #### G LULS ####Point of Care testing, Glucose Poct Glucometerson 0 03-07-2023 Glucose [Mass/Vol] 259 mg/dL Normal [facility] Comment on above: Result Comment: [facility] Glucose Reference Range is dependent on time and content of last meal. Glucose of more than 200 mg/dL in a nonstressed, ambulatory subject supports the diagnosis of Diabetes Mellitus. PERFORMED BY: [facility] [address] [place] [address] PATHOLOGIST PATIENT SCHEDULER DEONNA COURTNEY M.D. Performed By: #### G LULS ####Point of Care testing, Commemt1 Glu2: Cleaned Meter Normal [facility] Comment on above: Result Comment: PERF ORMED BY: [address] [place] [address] PATHOLOGIST PATIENT SCHEDULER DEONNA COURTNEY M.D. Performed By: #### G LULS ####Point of Care testing, Glucose [Mass/Vol] 358 mg/dL Normal [facility] Comment on above: Result Comment: [place] [facility] Glucose Reference Range is dependent on time and content of last meal. Glucose of more than 200 mg/dL in a nonstressed, ambulatory subject supports the diagnosis of Diabetes Mellitus. Performed By: #### G LULS ####Point of Care testing, Glucose [Mass/Vol] 220 mg/dL Normal [facility] Comment on above: Result Comment: [place] Glucose Reference Range is dependent on time and content of last meal. Glucose of more than 200 mg/dL in a nonstressed, ambulatory subject supports the diagnosis of Diabetes Mellitus. PERFORMED BY: [address] [place] [address] PATHOLOGIST PATIENT SCHEDULER DEONNA COURTNEY M.D. Performed By: #### G LULS ####Point of Care testing, Glucose [Mass/Vol] 251 mg/dL Normal [facility] Comment on above: Result Comment: [place] Glucose Reference Range is dependent on time and content of last meal. Glucose of more than 200 mg/dL in a nonstressed, ambulatory subject supports the diagnosis of Diabetes Mellitus. PERFORMED BY: [address] [place] [address] PATHOLOGIST PATIENT SCHEDULER DEONNA COURTNEY M.D. Performed By: #### G LULS ####Point of Care testing, Glucose Poct Glucometerson 0 03-06-2023 Glucose [Mass/Vol] 163 mg/dL Normal [facility] Comment on above: Result Comment: [place] Glucose Reference Range is dependent on time and content of last meal. Glucose of more than 200 mg/dL in a nonstressed, ambulatory subject supports the diagnosis of Diabetes Mellitus. PERFORMED BY: [address] [place] [address] PATHOLOGIST PATIENT SCHEDULER DEONNA COURTNEY M.D. Performed By: #### G LULS ####Point of Care testing, Commemt1 Glu2: Cleaned Meter Normal [facility] Comment on above: Result Comment: PERF ORMED BY: [address] [place] [address] PATHOLOGIST PATIENT SCHEDULER DEONNA COURTNEY M.D. Performed By: #### G LULS #### Point of Care testing , Glucose [Mass/Vol] 224 mg/dL Normal [facility] Comment on above: Result Comment: [place] Glucose Reference Range is dependent on time and content of last meal. Glucose of more than 200 mg/dL in a nonstressed, ambulatory subject supports the diagnosis of Diabetes Mellitus. Performed By: #### G LULS #### Point of Care testing , Commemt1 [facility] Comment on above: Result Comment: Glu2 : WILL NOTIFY DR/RN PERFORMED BY: [address] [place] [address] PATHOLOGIST PATIENT SCHEDULER DEONNA COURTNEY M.D. Performed By: #### G LULS ####Point of Care testing, Glucose [Mass/Vol] 332 mg/dL Normal [facility] Comment on above: Result Comment: [place] Glucose Reference Range is dependent on time and content of last meal. Glucose of more than 200 mg/dL in a nonstressed, ambulatory subject supports the diagnosis of Diabetes Mellitus. Performed By: #### G LULS ####Point of Care testing, Glucose Poct Glucometerson 0 03-05-2023 Glucose [Mass/Vol] 170 mg/dL Normal [facility] Comment on above: Result Comment: [place] Glucose Reference Range is dependent on time and content of last meal. Glucose of more than 200 mg/dL in a nonstressed, ambulatory subject supports the diagnosis of Diabetes Mellitus. PERFORMED BY: [address] [place] [id number] PATHOLOGIST PATIENT SCHEDULER DEONNA COURTNEY M.D. Performed By: #### G LULS ####Point of Care testing, Glucose [Mass/Vol] 98 mg/dL Normal [facility] Comment on above: Result Comment: [facility] Glucose Reference Range is dependent on time and content of last meal. Glucose of more than 200 mg/dL in a nonstressed, ambulatory subject supports the diagnosis of Diabetes Mellitus. PERFORMED BY: [address] [address] PATHOLOGIST PATIENT SCHEDULER DEONNA COURTNEY M.D. Performed By: #### G LULS ####Point of Care testing, Glucose [Mass/Vol] 102 mg/dL Normal [facility] Comment on above: Result Comment: [facility] Glucose Reference Range is dependent on time and content of last meal. Glucose of more than 200 mg/dL in a nonstressed, ambulatory subject supports the diagnosis of Diabetes Mellitus. PERFORMED BY: [address] [address] PATHOLOGIST PATIENT SCHEDULER DEONNA COURTNEY M.D. Performed By: #### G LULS #### Point of Care testing , XR chest 1V portableon 03-05 XR chest 1V portable [facility] [place] [address] [place] [address] XRay Report Signed Patient: Akbar Byrnes MR#: [id number] : 1960 Acct:[id number] Age/Sex: 62 / M ADM Date: 03/02/23 Loc: Room: [address] [place] [address] Type: ADM IN Attending Dr: Devin Starks DO Copies to: Cherise Thurman APRN, ACNP-VALERIE Starks DO Ordering Provider: Cherise Thurman APRN, ACNP-BC Date of Service: 03/05/23 XR/XR chest 1V portable: evalaute right lung post chest tube removal SINGLE VIEW CHEST CLINICAL HISTORY: Post chest tube removal. COMPARISON: Chest 03/04/2023 FINDINGS: Heart appears normal in size. Bibasilar atelectasis persists. No new consolidation pneumothorax large pleural effusion or free air. XR/XR chest 1V portable IMPRESSION: NO SIGNIFICANT CHANGE IN CHEST FINDINGS. NO PNEUMOTHORAX IS SEEN. Impression dictated by: Landen Tavares Jr., D.O.03/05/2023 8:28 AM Dictation Location: [place] [address] Transcribed By: [facility] 03/05/23827 Dictated By: Landen Tavares Jr, DO 03/05/23815 Signed By: 03/05/23827 Normal [facility] Blood Urea Nitrogenon 2022 Urea nitrogen [Mass/Vol] 12 mg/dL Normal 03-10 [facility] Comment on above: Performed By: #### G LULS #### Point of Care testing , Complete Blood Count Auto Di ffon 03-04-2023 Basophils (Bld) [#/Vol] 0.1 10*3/uL Normal 0.0-0.2 [facility] Comment on above: Result Comment: PERF ORMED BY: [facility] [address] [place] [address] PATHOLOGIST PATIENT SCHEDULER DEONNA COURTNEY M.D. Performed By: #### C BC, CREAT LYTES, BUN ####[place] [id number] [facility] Basophils/100 WBC (Bld) 0.4 % Normal . [facility] Comment on above: Performed By: #### C BC, CREAT LYTES, BUN ####[place] [address] [place] [address] [facility] Eosinophils (Bld) [#/Vol] 0.1 10*3/uL Normal 0.0-0.45 [facility] Comment on above: Performed By: #### C BC, CREAT LYTES, BUN ####[place] [id number] [facility] Eosinophils/100 WBC (Bld) 1.1 % Normal . [facility] Comment on above: Performed By: #### C BC, CREAT LYTES, BUN ####[place] [address] [place] [id number] [facility] Erythrocyte distribution width (RBC) [Ratio] 14.1 % Normal 12.0-14.8 [facility] Comment on above: Performed By: #### C SOFIA PADILLA LYTES BUN ####[address] Hematocrit (Bld) [Volume fraction] 39.7 % Normal 38.8-50.0 [facility] Comment on above: Performed By: #### C SOFIA PADILLA LYTES BUN ####[address] Hemoglobin (Bld) [Mass/Vol] 13.8 g/dL Normal 13.0-17.0 [facility] Comment on above: Performed By: #### C SOFIA PADILLA LYTES BUN ####[address] Lymphocytes (Bld) [#/Vol] 2.7 10*3/uL Normal 1.00-4.8 [facility] Comment on above: Performed By: #### C SOFIA PADILLA LYTES BUN ####[address] Lymphocytes/100 WBC (Bld) 22.8 % Normal . [facility] Comment on above: Performed By: #### C SOFIA PADILLA LYTES BUN ####[address] MCH (RBC) [Entitic mass] 31.2 pg Normal 27.5-35.2 [facility] Comment on above: Performed By: #### C SOFIA PADILLA LYTES BUN ####[address] MCV (RBC) [Entitic vol] 89.6 fL Normal 83.5-101 [facility] Comment on above: Performed By: #### C SOFIA PADILLA LYTES BUN ####[address] Mean Corpuscular HGB Conc 34.9 g/dL Normal 32.5-35.6 [facility] Comment on above: Performed By: #### C SOFIA PADILLA, LYTES, BUN ####[address] Monocytes (Bld) [#/Vol] 1.0 10*3/uL High 0.0-0.8 [facility] Comment on above: Performed By: #### C BC, CREAT, LYTES, BUN ####[address] Monocytes/100 WBC (Bld) 8.8 % Normal . [facility] Comment on above: Performed By: #### C BC, CREAT, LYTES, BUN ####[address] Neutrophils (Bld) [#/Vol] 7.9 10*3/uL High 1.8-7.7 [facility] Comment on above: Performed By: #### C BC, CREAT, LYTES, BUN ####[address] Neutrophils/100 WBC (Bld) 66.9 % Normal . [facility] Comment on above: Performed By: #### C BC, CREAT, LYTES, BUN ####[address] NRBC% 0.1 /100{WBC} Normal 0-0.5 [facility] Comment on above: Performed By: #### C BC, CREAT, LYTES, BUN ####[address] Platelet mean volume (Bld) [Entitic vol] 8.7 fL Normal 6.6-10.1 [facility] Comment on above: Performed By: #### C BC, CREAT, LYTES, BUN ####[address] Platelets (Bld) [#/Vol] 252 10*3/uL Normal 150-450 [facility] Comment on above: Performed By: #### C BC, CREAT, LYTES, BUN ####[address] [place] [address] [place] RBC (Bld) [#/Vol] 4.43 10*6/uL Normal 3.90-5.60 [facility] Comment on above: Performed By: #### C BC, CREAT LYTES, BUN ####[address] WBC (Bld) [#/Vol] 11.8 10*3/uL High 4.1-10.5 [facility] Comment on above: Performed By: #### C BC, CREAT LYTES, BUN ####[address] Creatinineon 03-04-2023 Creatinine [Mass/Vol] 0.48 mg/dL Low 0.70-1.30 [facility] Comment on above: Performed By: #### G LULS #### Point of Care testing , Creatinine Clr Calc Pharmacy 142.19 [facility] Comment on above: Result Comment: PERF ORMED BY: [facility] [address] [facility] [place] [address] PATHOLOGIST PATIENT SCHEDULER DEONNA COURTNEY M.D. Performed By: #### G LULS #### Point of Care testing , GFR/1.73 sq M.predicted MDRD (S/P/Bld) [Vol rate/Area] mL/min/{1.73_m2} [facility] Comment on above: Performed By: #### G LULS #### Point of Care testing , Electrolyteson 03-04-2023 Anion gap [Moles/Vol] 7.5 mmol/L Normal 6.0-15.0 [facility] Comment on above: Performed By: #### C BC CREAT LYTES, BUN ####[address] Chloride [Moles/Vol] 107 mmol/L Normal 98-107 [facility] Comment on above: Performed By: #### C BC, CREAT LYTES, BUN ####[address] CO2 [Moles/Vol] 25.1 mmol/L Normal 21.0-31.0 [facility] Comment on above: Performed By: #### C SOFIA PADILLA LYTES, BUN ####[facility] [place] [address] [facility] Potassium [Moles/Vol] 3.6 mmol/L Normal 3.5-5.1 [facility] Comment on above: Performed By: #### C SOFIA PADILLA LYTES, BUN ####[facility] [place] [address] [facility] Sodium [Moles/Vol] 136 mmol/L Normal 136-145 [facility] Comment on above: Performed By: #### C SOFIA PADILLA LYTES, BUN ####[place] [id number] [facility] Glucose Poct Glucometerson 0 03-04-2023 Commemt1 Glu2: Cleaned Meter Normal [facility] Comment on above: Result Comment: PERF ORMED BY: [facility] [address] [place] [address] PATHOLOGIST PATIENT SCHEDULER DEONNA COURTNEY M.D. Performed By: #### G LULS ####Point of Care testing, Glucose [Mass/Vol] 176 mg/dL Normal [facility] Comment on above: Result Comment: [facility] Glucose Reference Range is dependent on time and content of last meal. Glucose of more than 200 mg/dL in a nonstressed, ambulatory subject supports the diagnosis of Diabetes Mellitus. Performed By: #### G LULS ####Point of Care testing, Glucose [Mass/Vol] 92 mg/dL Normal [facility] Comment on above: Result Comment: [place] Glucose Reference Range is dependent on time and content of last meal. Glucose of more than 200 mg/dL in a nonstressed, ambulatory subject supports the diagnosis of Diabetes Mellitus. PERFORMED BY: [facility] [address] [place] [id number] PATHOLOGIST PATIENT SCHEDULER DEONNA COURTNEY M.D. Performed By: #### G LULS ####Point of Care testing, Glucose [Mass/Vol] 174 mg/dL Normal [facility] Comment on above: Result Comment: [place] Glucose Reference Range is dependent on time and content of last meal. Glucose of more than 200 mg/dL in a nonstressed, ambulatory subject supports the diagnosis of Diabetes Mellitus. PERFORMED BY: [place] [id number] PATHOLOGIST PATIENT SCHEDULER DEONNA COURTNEY M.D. Performed By: #### G LULS ####Point of Care testing, Commemt1 Normal [facility] Comment on above: Result Comment: Glu2 : FOLLOW HYPOGLYCEMIC PERFORMED BY: [address] [address] PATHOLOGIST PATIENT SCHEDULER DEONNA COURTNEY M.D. Performed By: #### G LULS #### Point of Care testing , Glucose [Mass/Vol] 52 mg/dL Off scale low [facility] Comment on above: Result Comment: [place] Glucose Reference Range is dependent on time and content of last meal. Glucose of more than 200 mg/dL in a nonstressed, ambulatory subject supports the diagnosis of Diabetes Mellitus. Performed By: #### G LULS #### Point of Care testing , Glucose [Mass/Vol] 177 mg/dL Normal [facility] Comment on above: Result Comment: [place] Glucose Reference Range is dependent on time and content of last meal. Glucose of more than 200 mg/dL in a nonstressed, ambulatory subject supports the diagnosis of Diabetes Mellitus. PERFORMED BY: [address] [address] PATHOLOGIST PATIENT SCHEDULER DEONNA COURTNEY M.D. Performed By: #### G LULS ####Point of Care testing, XR chest 1V portableon 03-04 XR chest 1V portable [facility] [place] [address] [place] [address] XRay Report Signed Patient: Akbar Byrnes MR#: [id number] : 1960 Acct:[id number] Age/Sex: 62 / M ADM Date: 03/02/23 Loc: Room: [address] [place] [address] Type: ADM IN Attending Dr: Devin Starks DO Copies to: Devin Starks DO Ordering Provider: Devin Starks DO Date of Service: 03/04/23 XR/XR chest 1V portable: L ptx PORTABLE AP ERECT CHEST 0604 hours CLINICAL HISTORY: Follow-up after recent left chest tube removal COMPARISON: 03/03/2023 The left-sided chest tube is no longer seen. The heart is within normal limits. There is no vascular congestion. Minor basilar atelectasis is visualized.. There is no sizable effusion or pneumothorax. The osseous structures are intact. XR/XR chest 1V portable IMPRESSION: NO OBVIOUS PNEUMOTHORAX. BIBASILAR ATELECTASIS. Impression dictated by: Eden Milton M.D.03/04/2023 7:29 AM Dictation Location: [place] [address] Transcribed By: [facility] 03/04/23728 Dictated By: Eden Milton MD 03/04/2327 Signed By: 03/04/2329 Normal [facility] A1C with Estimated Average G alisson 03-03-2023 Glucose [Mass/Vol] 404 mg/dL Normal [facility] Comment on above: Result Comment: PERF ORMED BY: [facility] [address] [place] [address] PATHOLOGIST PATIENT SCHEDULER DEONNA COURTNEY M.D. Performed By: #### A 1C [facility] eA ####[place] [address] [place] [id number] [facility] HbA1c (Bld) [Mass fraction] 15.7 % High 4.3-5.6 [facility] Comment on above: Result Comment: Incr eased risk for diabetes: 5.7 - 6.4 diabetes: >6.4 glycemic control for adults with diabetes: <7.0 Performed By: #### A 1C [facility] eA ####[place] [address] [place] [address] [facility] Comprehensive Metabolic Pane dorothy 03-03-2023 Albumin [Mass/Vol] 3.2 g/dL Low 3.5-5.7 [facility] Comment on above: Performed By: #### H S TROP, PT, CK, SCAN CBC, CMP, PTT ####[address] Albumin/Globulin [Mass ratio] 1.0 {ratio} Normal [facility] Comment on above: Performed By: #### H S TROP, PT, CK, SCAN CBC, CMP, PTT ####[address] ALP [Catalytic activity/Vol] 178 U/L High 34-104 [facility] Comment on above: Performed By: #### H S TROP, PT, CK, SCAN CBC, CMP, PTT ####[address] ALT [Catalytic activity/Vol] 20 U/L Normal 7-52 [facility] Comment on above: Performed By: #### H S TROP, PT, CK, SCAN CBC, CMP, PTT ####[address] Anion gap [Moles/Vol] 9.2 mmol/L Normal 6.0-15.0 [facility] Comment on above: Performed By: #### H S TROP, PT, CK, SCAN CBC, CMP, PTT ####[place] [id number] [facility] AST [Catalytic activity/Vol] 19 U/L Normal 13-39 [facility] Comment on above: Performed By: #### H S TROP, PT, CK, SCAN CBC, CMP, PTT ####[place] [id number] [facility] Bilirubin [Mass/Vol] 0.6 mg/dL Normal 0.3-1.0 [facility] Comment on above: Performed By: #### H S TROP, PT, CK, SCAN CBC, CMP, PTT ####[place] [id number] [facility] Calcium [Mass/Vol] 9.1 mg/dL Normal 8.6-10.3 [facility] Comment on above: Performed By: #### H S TROP, PT, CK, SCAN CBC, CMP, PTT ####[place] [address] [address] Chloride [Moles/Vol] 106 mmol/L Normal 98-107 [facility] Comment on above: Performed By: #### H S TROP, PT, CK, SCAN CBC, CMP, PTT ####[address] CO2 [Moles/Vol] 23.7 mmol/L Normal 21.0-31.0 [facility] Comment on above: Performed By: #### H S TROP, PT, CK, SCAN CBC, CMP, PTT ####[address] Creatinine [Mass/Vol] 0.59 mg/dL Low 0.70-1.30 [facility] Comment on above: Performed By: #### H S TROP, PT, CK, SCAN CBC, CMP, PTT ####[address] Creatinine Clr Calc Pharmacy 115.68 [facility] Comment on above: Result Comment: PERF ORMED BY: [facility] [address] [place] [address] PATHOLOGIST PATIENT SCHEDULER DEONNA COURTNEY M.D. Performed By: #### H S TROP, PT, CK, SCAN CBC, CMP, PTT ####[address] GFR/1.73 sq M.predicted MDRD (S/P/Bld) [Vol rate/Area] mL/min/{1.73_m2} [facility] Comment on above: Performed By: #### H S TROP, PT, CK, SCAN CBC, CMP, PTT ####[place] [address] Globulin (S) [Mass/Vol] 3.1 g/dL [facility] Comment on above: Performed By: #### H S TROP, PT, CK, SCAN CBC, CMP, PTT ####[place] [address] Glucose [Mass/Vol] 243 mg/dL Significant change up 70-100 [facility] Comment on above: Result Comment: [facility] Glucose Reference Range is dependent on time and content of last meal. Glucose of more than 200 mg/dL in a nonstressed, ambulatory subject supports the diagnosis of Diabetes Mellitus. ADA recommended reference range Performed By: #### H S TROP, PT, CK, SCAN CBC, CMP, PTT ####[address] Potassium [Moles/Vol] 3.9 mmol/L Normal 3.5-5.1 [facility] Comment on above: Result Comment: Hemo lysis is present at a level that could interfere with the result. Performed By: #### H S TROP, PT, CK, SCAN CBC, CMP, PTT ####[address] Protein [Mass/Vol] 6.3 g/dL Low 6.4-8.9 [facility] Comment on above: Performed By: #### H S TROP, PT, CK, SCAN CBC, CMP, PTT ####[address] Sodium [Moles/Vol] 135 mmol/L Low 136-145 [facility] Comment on above: Performed By: #### H S TROP, PT, CK, SCAN CBC, CMP, PTT ####[place] [id number] [facility] Urea nitrogen [Mass/Vol] 13 mg/dL Normal 7-25 [facility] Comment on above: Performed By: #### H S TROP, PT, CK, SCAN CBC, CMP, PTT ####[place] [id number] [facility] Creatine Kinaseon 03-03-2023 CK [Catalytic activity/Vol] 111 U/L Normal 30-223 [facility] Comment on above: Performed By: #### H S TROP, PT, CK, SCAN CBC, CMP, PTT ####[address] [place] [address] [facility] Dipstick and Microscopicon 0 03-03-2023 Appearance (U) Clear Normal Clear [facility] Comment on above: Order Comment: Name Collection Type:: Clean-Voided Midstream Performed By: #### A DDONUAPLUS ####[place] [address] [place] [address] [facility] Bacteria,Urine None Seen Normal None Seen [facility] Comment on above: Order Comment: Name Collection Type:: Clean-Voided Midstream Performed By: #### A DDONUAPLUS ####[address] [address] [place] Bilirubin,Urine Negative Normal Negative [facility] Comment on above: Order Comment: Name Collection Type:: Clean-Voided Midstream Performed By: #### A DDONUAPLUS ####[address] [address] [place] Color (U) Yellow Normal Yellow [facility] Comment on above: Order Comment: Name Collection Type:: Clean-Voided Midstream Performed By: #### A DDONUAPLUS ####[address] [address] [place] Glucose Ql (U) >=1000 High Normal [facility] Comment on above: Order Comment: Name Collection Type:: Clean-Voided Midstream Performed By: #### A DDONUAPLUS ####[address] [address] [place] Hyaline Casts,Urine None Seen Normal 0-8 [facility] Comment on above: Order Comment: Name Collection Type:: Clean-Voided Midstream Result Comment: PERF ORMED BY: [facility] [address] [place] [address] PATHOLOGIST PATIENT SCHEDULER DEONNA COURTNEY M.D. Performed By: #### A DDONUAPLUS ####[place] [address] [place] [address] [place] Ketones Ql (U) Negative Normal Negative [facility] Comment on above: Order Comment: Name Collection Type:: Clean-Voided Midstream Performed By: #### A DDONUAPLUS ####[address] [address] [facility] Leukocyte esterase Test strip Ql (U) Negative Normal Negative [facility] Comment on above: Order Comment: Name Collection Type:: Clean-Voided Midstream Performed By: #### A DDONUAPLUS ####[address] [address] [place] Nitrite,Urine Negative Normal Negative [facility] Comment on above: Order Comment: Name Collection Type:: Clean-Voided Midstream Performed By: #### A DDONUAPLUS ####[address] [address] [facility] Occult Blood,Urine Negative Normal Negative [facility] Comment on above: Order Comment: Name Collection Type:: Clean-Voided Midstream Result Comment: PERF ORMED BY: [facility] [address] [place] [id number] PATHOLOGIST PATIENT SCHEDULER DEONNA COURTNEY M.D. Performed By: #### A DDONUAPLUS ####[address] [address] [facility] pH (U) 6.0 [pH] Normal 5.0-9.0 [facility] Comment on above: Order Comment: Name Collection Type:: Clean-Voided Midstream Performed By: #### A DDONUAPLUS ####[address] [address] [facility] Protein,Urine Trace High Negative [facility] Comment on above: Order Comment: Name Collection Type:: Clean-Voided Midstream Performed By: #### A DDONUAPLUS ####[address] [address] [place] RBC LM.HPF (Urine sed) [#/Area] 0 /[HPF] Normal 0-4 [facility] Comment on above: Order Comment: Name Collection Type:: Clean-Voided Midstream Performed By: #### A DDONUAPLUS ####[address] [address] [facility] Specificy Dutton,Urine 1.029 Normal 1.001-1.030 [facility] Comment on above: Order Comment: Name Collection Type:: Clean-Voided Midstream Performed By: #### A DDONUAPLUS ####[place] [address] [facility] Squamous Epithelial Cell,Urine None Seen Normal 0-2 [facility] Comment on above: Order Comment: Name Collection Type:: Clean-Voided Midstream Performed By: #### A DDONUAPLUS ####[place] [id number] [facility] Urobilinogen,Urine Normal Normal Normal [facility] Comment on above: Order Comment: Name Collection Type:: Clean-Voided Midstream Performed By: #### A DDONUAPLUS ####[place] [id number] [facility] WBC LM.HPF (Urine sed) [#/Area] 0 /[HPF] Normal 0-4 [facility] Comment on above: Order Comment: Name Collection Type:: Clean-Voided Midstream Performed By: #### A DDONUAPLUS ####[place] [id number] [facility] Glucose Poct Glucometerson 0 03-03-2023 Glucose [Mass/Vol] 42 mg/dL Off scale low [facility] Comment on above: Result Comment: [facility] Glucose Reference Range is dependent on time and content of last meal. Glucose of more than 200 mg/dL in a nonstressed, ambulatory subject supports the diagnosis of Diabetes Mellitus. PERFORMED BY: [address] [address] [place] [address] PATHOLOGIST PATIENT SCHEDULER DEONNA COURTNEY M.D. Performed By: #### G LULS ####Point of Care testing, Glucose [Mass/Vol] 175 mg/dL Normal [facility] Comment on above: Result Comment: [facility] Glucose Reference Range is dependent on time and content of last meal. Glucose of more than 200 mg/dL in a nonstressed, ambulatory subject supports the diagnosis of Diabetes Mellitus. PERFORMED BY: [address] [place] [address] PATHOLOGIST PATIENT SCHEDULER DEONNA COURTNEY M.D. Performed By: #### G LULS #### Point of Care testing , Glucose [Mass/Vol] 338 mg/dL Normal [facility] Comment on above: Result Comment: [place] Glucose Reference Range is dependent on time and content of last meal. Glucose of more than 200 mg/dL in a nonstressed, ambulatory subject supports the diagnosis of Diabetes Mellitus. PERFORMED BY: [facility] [address] [place] [address] PATHOLOGIST PATIENT SCHEDULER DEONNA COURTNEY M.D. Performed By: #### G LULS ####Point of Care testing, Glucose [Mass/Vol] 312 mg/dL Normal [facility] Comment on above: Result Comment: [facility] Glucose Reference Range is dependent on time and content of last meal. Glucose of more than 200 mg/dL in a nonstressed, ambulatory subject supports the diagnosis of Diabetes Mellitus. PERFORMED BY: [facility] [address] [place] [address] PATHOLOGIST PATIENT SCHEDULER DEONNA COURTNEY M.D. Performed By: #### G LULS #### Point of Care testing , Partial Thromboplastin Timeo n 03-03-2023 aPTT Coag (Bld) [Time] 21.4 s Low 25.1-36.5 [facility] Comment on above: Result Comment: PERF ORMED BY: [facility] [address] [place] [id number] PATHOLOGIST PATIENT SCHEDULER DEONNA COURTNEY M.D. Performed By: #### H S TROP, PT, CK, SCAN CBC, CMP, PTT ####[facility] [id number] [place] [address] [facility] Prothrombin Time INRon 03-03 INR Coag (PPP) [Relative time] 1.0 {INR} Normal [facility] Comment on above: Result Comment: INR Therapeutic Range A) Pre- and Peroperative OAT started two weeks before surgery. NOT HIP SURGERY: 1.5 - 2.5 HIP SURGERY: 2 - 3 B) Primary and secondary prevention of venous THROMBOSIS: 2 - 3 C) Active venous thrombosis, pulmonary embolism and prevention of recurrent venous thrombosis: 2 - 3 D) Prevention of arterial thromboembolism including patients with mechanical heart valves: 3 - 4.5 Performed By: #### H S TROP, PT, CK, SCAN CBC, CMP, PTT #### [facility] [address] PT Coag (PPP) [Time] 11.2 s Normal 9.0-12.9 [facility] Comment on above: Performed By: #### H S TROP, PT, CK, SCAN CBC, CMP, PTT #### [address] Scan and CBCon 03-03-2023 Basophils (Bld) [#/Vol] 0.1 10*3/uL Normal 0.0-0.2 [facility] Comment on above: Result Comment: PERF ORMED BY: [place] [address] PATHOLOGIST PATIENT SCHEDULER DEONNA COURTNEY M.D. Performed By: #### H S TROP, PT, CK, SCAN CBC, CMP, PTT ####[address] Basophils/100 WBC (Bld) 0.9 % Normal . [facility] Comment on above: Performed By: #### H S TROP, PT, CK, SCAN CBC, CMP, PTT ####[address] Eosinophils (Bld) [#/Vol] 0.3 10*3/uL Normal 0.0-0.45 [facility] Comment on above: Performed By: #### H S TROP, PT, CK, SCAN CBC, CMP, PTT ####[address] Eosinophils/100 WBC (Bld) 2.1 % Normal . [facility] Comment on above: Performed By: #### H S TROP, PT, CK, SCAN CBC, CMP, PTT ####[address] Erythrocyte distribution width (RBC) [Ratio] 14.0 % Normal 12.0-14.8 [facility] Comment on above: Performed By: #### H S TROP, PT, CK, SCAN CBC, CMP, PTT ####[address] Hematocrit (Bld) [Volume fraction] 40.9 % Normal 38.8-50.0 [facility] Comment on above: Performed By: #### H S TROP, PT, CK, SCAN CBC, CMP, PTT ####[address] Hemoglobin (Bld) [Mass/Vol] 13.9 g/dL Normal 13.0-17.0 [facility] Comment on above: Performed By: #### H S TROP, PT, CK, SCAN CBC, CMP, PTT ####[address] Hypochromasia Slight Normal [facility] Comment on above: Performed By: #### H S TROP, PT, CK, SCAN CBC, CMP, PTT ####[address] Lymphocytes (Bld) [#/Vol] 3.1 10*3/uL Normal 1.00-4.8 [facility] Comment on above: Performed By: #### H S TROP, PT, CK, SCAN CBC, CMP, PTT ####[address] Lymphocytes/100 WBC (Bld) 24.8 % Normal . [facility] Comment on above: Performed By: #### H S TROP, PT, CK, SCAN CBC, CMP, PTT ####[address] MCH (RBC) [Entitic mass] 30.5 pg Normal 27.5-35.2 [facility] Comment on above: Performed By: #### H S TROP, PT, CK, SCAN CBC, CMP, PTT ####[address] MCV (RBC) [Entitic vol] 89.6 fL Normal 83.5-101 [facility] Comment on above: Performed By: #### H S TROP, PT, CK, SCAN CBC, CMP, PTT ####[address] Mean Corpuscular HGB Conc 34.1 g/dL Normal 32.5-35.6 [facility] Comment on above: Performed By: #### H S TROP, PT, CK, SCAN CBC, CMP, PTT ####[address] Monocytes (Bld) [#/Vol] 0.9 10*3/uL High 0.0-0.8 [facility] Comment on above: Performed By: #### H S TROP, PT, CK, SCAN CBC, CMP, PTT ####[address] Monocytes/100 WBC (Bld) 7.4 % Normal . [facility] Comment on above: Performed By: #### H S TROP, PT, CK, SCAN CBC, CMP, PTT ####[address] Neutrophils (Bld) [#/Vol] 8.0 10*3/uL High 1.8-7.7 [facility] Comment on above: Performed By: #### H S TROP, PT, CK, SCAN CBC, CMP, PTT ####[address] Neutrophils/100 WBC (Bld) 64.8 % Normal . [facility] Comment on above: Performed By: #### H S TROP, PT, CK, SCAN CBC, CMP, PTT ####[address] NRBC% 0.2 /100{WBC} Normal 0-0.5 [facility] Comment on above: Performed By: #### H S TROP, PT, CK, SCAN CBC, CMP, PTT ####[address] Ovalocytes Slight Normal [facility] Comment on above: Performed By: #### H S TROP, PT, CK, SCAN CBC, CMP, PTT ####[place] [id number] [place] [id number] [facility] Platelet Estimate Normal Normal Normal [facility] Comment on above: Performed By: #### H S TROP, PT, CK, SCAN CBC, CMP, PTT ####[place] [id number] [place] [phone] [facility] Platelet mean volume (Bld) [Entitic vol] 9.3 fL Normal 6.6-10.1 [facility] Comment on above: Performed By: #### H S TROP, PT, CK, SCAN CBC, CMP, PTT ####[place] [phone] [facility] Platelet Morphology Normal Normal Normal [facility] Comment on above: Result Comment: PERF ORMED BY: [facility] [address] [place] [address] PATHOLOGIST PATIENT SCHEDULER DEONNA COURTNEY M.D. Performed By: #### H S TROP, PT, CK, SCAN CBC, CMP, PTT ####[place] [phone] [facility] Platelets (Bld) [#/Vol] 188 10*3/uL Significant change down 150-450 [facility] Comment on above: Performed By: #### H S TROP, PT, CK, SCAN CBC, CMP, PTT ####[place] [phone] [facility] Polychromasia Slight Normal [facility] Comment on above: Performed By: #### H S TROP, PT, CK, SCAN CBC, CMP, PTT ####[place] [phone] [facility] RBC (Bld) [#/Vol] 4.57 10*6/uL Normal 3.90-5.60 [facility] Comment on above: Performed By: #### H S TROP, PT, CK, SCAN CBC, CMP, PTT ####[place] [phone] [facility] WBC (Bld) [#/Vol] 12.3 10*3/uL High 4.1-10.5 [facility] Comment on above: Performed By: #### H S TROP, PT, CK, SCAN CBC, CMP, PTT ####[facility] [place] [phone] [facility] WBC (Bld) [#/Vol] 14.2 10*3/uL High 4.1-10.5 [facility] Comment on above: Performed By: #### H S TROP, PT, CK, SCAN CBC, CMP, PTT ####[facility] [place] [address] [facility] Troponin I High Sensitivityo n 03-03-2023 Troponin I High Sensitivity 4.4 pg/mL Normal 0.0-20.0 [facility] Comment on above: Result Comment: PERF ORMED BY: [place] [address] PATHOLOGIST PATIENT SCHEDULER DEONNA COURTNEY M.D. Performed By: #### H S TROP, PT, CK, SCAN CBC, CMP, PTT ####[place] [id number] [place] [phone] [facility] XR chest 1V portableon 03-03 XR chest 1V portable [facility] [place] [address] XRay Report Signed Patient: Akbar Byrnes MR#: [id number] : 1960 Acct:[id number] Age/Sex: 62 / M ADM Date: 03/02/23 Loc: Room: [address] [place] [address] Type: ADM IN Attending Dr: Devin Starks DO Copies to: DO Zachariah Carroll Jr, MD Ordering Provider: Zachariah Saldaña Jr, MD Date of Service: 03/02/23 XR/XR chest 1V portable: L chest tube SINGLE VIEW CHEST CLINICAL HISTORY: Left-sided chest tube placement COMPARISON: CT chest 03/02/2023 FINDINGS: Left-sided chest tube is in place. No significant residual pneumothorax is seen. Heart and mediastinal soft tissues appear unchanged. Degree of interstitial changes grossly similar to the CT study. No large pleural effusion or free air. XR/XR chest 1V portable IMPRESSION: LEFT-SIDED CHEST TUBE IS IN PLACE WITHOUT RESIDUAL PNEUMOTHORAX SEEN. Impression dictated by: Landen Tavares Jr., D.O.03/03/2023 8:08 AM Dictation Location: RADIO-PC-12 Transcribed By: DORIS 03/03/23 0808 Dictated By: Landen Tavares Jr, DO 03/03/23 0807 Signed By: 03/03/23 0808 [facility] XR chest 1V portable [facility] Main [address] [address] XRay Report Signed Patient: Akbar Byrnes MR#: [id number] : 1960 Acct:[id number] Age/Sex: 62 / M ADM Date: 03/02/23 Loc: Room: [address] [place] [address] Type: ADM IN Attending Dr: Devin Starks DO Copies to: Devin Starks DO Ordering Provider: Devin Starks DO Date of Service: 03/03/23 XR/XR chest 1V portable: Left Chest tube PORTABLE AP ERECT CHEST 0437 hours CLINICAL HISTORY: Follow-up chest tube. COMPARISON: 03/02/2023 A left-sided chest tube is still present. There are minor interstitial changes. There is potential minimal basilar atelectasis. No residual pneumothorax is identified. There is no sizable effusion. The cardiac and mediastinal contours are similar. The bony structures are osteopenic. XR/XR chest 1V portable IMPRESSION: NO RESIDUAL PNEUMOTHORAX. MINOR PARENCHYMAL CHANGES. Impression dictated by: Eden Milton M.D.03/03/2023 7:11 AM Dictation Location: RADIO-PC-10 Transcribed By: [facility] 03/03/23 0711 Dictated By: Eden Milton MD 03/03/23 0709 Signed By: 03/03/23 07 [facility] ABO/Rh Retypeon 03-02-2023 ABO/RH Recheck Result Positive Normal [facility] Comment on above: Result Comment: PERF ORMED BY: [address] [place] [address] PATHOLOGIST PATIENT SCHEDULER DEONNA COURTNEY M.D. Activated partial thrombopla stin time (aPTT) in platelet poor plasma by coagulation aOrdered By: Zachariah Saldaña on 03-02-2023 aPTT Coag (PPP) [Time] 30.0 s 25.1-36.5 [facility] Alanine aminotransferase [En zymatic activity/volume] in Serum or PlasmaOrdered By: Zachariah Saldaña on 03-02-2023 ALT [Catalytic activity/Vol] 22 U/L 7-52 [facility] Albumin [Mass/volume] in Ser um or Plasma by Bromocresol green (BCG) dye binding methoOrdered By: Zachariah Saldaña on 03-02-2023 Albumin BCG dye [Mass/Vol] 3.5 g/dL 3.5-5.7 [facility] Alkaline phosphatase [Enzyma tic activity/volume] in Serum or PlasmaOrdered By: Zachariah Saldaña on 03-02-2023 ALP [Catalytic activity/Vol] 234 U/L 34-104 [facility] Aspartate aminotransferase [ Enzymatic activity/volume] in Serum or PlasmaOrdered By: Zachariah Saldaña on 03-02-2023 AST [Catalytic activity/Vol] 20 U/L 13-39 [facility] Automated erythrocytes count in urine sediment (number/area)Ordered By: Zachariah Saldaña on 03-02-2023 RBC Auto (Urine sed) [#/Area] 0-1 [HPF] 0-4 [facility] Automated leukocytes count i n urine sediment (number/area)Ordered By: Zachariah Saldaña on 03-02-2023 WBC Auto (Urine sed) [#/Area] 0-1 [HPF] 0-4 [facility] Basophils Auto (Bld) [#/Vol] Ordered By: Zachariah Saldaña on 03-02-2023 Basophils (Bld) [#/Vol] 0.1 10*3/uL 0.0-0.2 [facility] Basophils/100 WBC Auto (Bld) Ordered By: Zachariah Saldaña on 03-02-2023 Basophils/100 WBC (Bld) 0.6 % . [facility] Bilirubin Test strip Ql (U)O rdered By: Zachariah Saldaña on 07-17-2023 Bilirubin Ql (U) Negative Negative [facility] Bilirubin.total [Mass/volume ] in Serum or PlasmaOrdered By: Zachariah Saldaña on 03-02-2023 Bilirubin [Mass/Vol] 0.5 mg/dL 0.3-1.[address] [facility] [address] abdomen pelvis w conon CT abdomen pelvis w con [facility] [place] [address] [place] [address] CT Scan Report Signed Patient: Akbar Byrnes MR#: [id number] : 1960 Acct:[id number] Age/Sex: 62 / M ADM Date: 03/02/23 Loc: ER Room: Type: [facility] ER Attending Dr: Copies to: Zachariah Saldaña Jr, MD Ordering Provider: Zachariah Saldaña Jr, MD Date of Service: 03/02/23 CT/CT chest w con: traumatic injury ([id number]) CT/CT abdomen pelvis w con: traumatic injury CT CHEST, ABDOMEN AND PELVIS WITH INTRAVENOUS CONTRAST: CLINICAL HISTORY: Fall with shortness of breath, left sided rib pain/low back pain. COMPARISON: Chest performed today. TECHNIQUE: TECHNIQUE: Spiral images were obtained through the chest, abdomen and pelvis following the administration of IV contrast. This CT exam was performed using one or more following dose reduction techniques: Automated exposure control, adjustment of the mA and/or kV according to patient size, or use of iterative reconstruction technique. FINDINGS: CT chest: Mediastinum:Thoracic aorta appears normal in caliber. No dissection. Pulmonary trunk appears nondilated. No pericardial effusion. No lymphadenopathy. The esophagus is grossly unremarkable. Lungs:Small left-sided pneumothorax without mediastinal or tracheal shift to suggest tension. No right-sided pneumothorax is seen. Tree-in-bud nodularity is seen primarily involving the right lung with a presumed contusion involving the medial aspect of the right middle lobe. No pleural effusion. Soft tissues/Bones: Visualized soft tissue surrounding the chest wall demonstrate small amount subcutaneous emphysematous changes along the posterior left chest wall. Osseous structures demonstrates no clavicular fracture involving the visualized clavicles. No sternal fracture. Degenerative changes involving the thoracic spine without acute fracture. A nondisplaced fracture is noted involving the left third rib posteriorly. CT abdomen and pelvis: Organs:Liver portal vein gallbladder spleen pancreas and adrenal glands all appear unremarkable. Small cyst left kidney. Right kidney appears unremarkable. Abdominal aorta appears normal in caliber.[ GI: Stomach is grossly unremarkable. Small bowel appears nondilated. Appendix is normal. No acute colonic abnormality.[ Pelvis:[Streak hardware artifact is seen involving the patient's left hip prostheses limiting evaluation. No acute gross abnormality is seen.] Peritoneum/Retroperitoneum :No free air, free fluid or lymphadenopathy.[ Abd wall/Bones:Abdominal wall demonstrates no acute findings. Osseous structures demonstrate degenerative change. Presumed residual deformity involving the left pubic rami suggestive of prior fracture. Cement augmentation L2 vertebral body. Vacuum disc phenomenon L5-S1 with associated air seen posteriorly adjacent to the spinal canal.[Mildly displaced fracture involving the transverse processes of L1, L2 and L3 on the left. CT/CT chest w con IMPRESSION: 1. Small left-sided pneumothorax without mediastinal or tracheal shift to suggest tension. There is associated fracture of the left third with as well as adjacent subcutaneous emphysematous changes. 2. A presumed contusion is seen involving the right middle lobe with scattered tree-in-bud nodularity suggestive of nonspecific bronchiolitis. CT follow-up is recommended to ensure resolution. 3. Mildly displaced fractures involving the transverse processes of L1-L3 on the left. No acute organ injury is seen involving the abdomen or pelvis. Impression dictated by: Landen Tavares Jr., D.O.03/02/2023 9:10 PM Dictation Location: [place] [address] Transcribed By: [facility] 03/02/232109 Dictated By: Landen Tavares Jr, DO 03/02/232053 Signed By: 03/02/232109 [facility] CT cervical spine wo [facility] 0 03-02-2023 CT cervical spine wo [facility] [place] [address] [place] [address] CT Scan Report Signed Patient: Akbar Byrnes MR#: [id number] : 1960 Acct:[id number] Age/Sex: 62 / M ADM Date: 03/02/23 Loc: ER Room: Type: [facility] ER Attending Dr: Copies to: Zachariah Saldaña Jr, MD Ordering Provider: Zachariah Saldaña Jr, MD Date of Service: 03/02/23 CT/CT cervical spine wo con: traumatic injury ([id number]) CT/CT head/brain wo con: traumatic injury CT BRAIN WITHOUT CONTRAST: CLINICAL HISTORY: Fall. Shortness of breath. Left rib and low back pain COMPARISON: None TECHNIQUE: Contiguous axial unenhanced images were obtained through the brain. This CT exam was performed using one or more following dose reduction techniques: Automated exposure control, adjustment of the mA and/or kV according to patient size, or use of iterative reconstruction technique. FINDINGS: There is no evidence of midline shift, intra or extra-axial fluid collection, hemorrhage or CT evidence of stroke. Cortical atrophy with chronic microvascular ischemic changes. Posterior fossa appears unremarkable. Visualized intraorbital contents appear unremarkable. Mild ethmoid sinus disease. The surrounding soft tissues are normal. CT/CT head/brain wo con IMPRESSION: NO ACUTE INTRACRANIAL ABNORMALITY. CT CERVICAL SPINE WITHOUT CONTRAST WITH 3D RECONSTRUCTIONS: CLINICAL HISTORY: Fall. COMPARISON: None TECHNIQUE: Spiral axial unenhanced images were obtained through the cervical spine. Sagittal, coronal and 3D volume-rendered reconstructions were also reviewed. This CT exam was performed using one or more following dose reduction techniques: Automated exposure control, adjustment of the mA and/or kV according to patient size, or use of iterative reconstruction technique. FINDINGS: No acute fracture. Moderate spondylosis C3-4 and C5-C7 with scattered endplate, uncovertebral and facet joint degenerative changes. No prevertebral soft tissue swelling. Nonunion of the posterior elements of C1 which is a normal variant. Visualized lung apices demonstrate a small left sided pneumothorax which will be further evaluated by CT chest. IMPRESSION: NO CERVICAL SPINE FRACTURE. LEFT-SIDED PNEUMOTHORAX WHICH BE FURTHER EVALUATED BY CT CHEST. Impression dictated by: Landen Tavares Jr., D.ONohemi03/02/2023 8:52 PM Dictation Location: [place] [address] Transcribed By: [facility] 03/02/232051 Dictated By: Landen Tavares Jr, DO 03/02/232046 Signed By: 03/02/232051 [facility] Calcium [Mass/volume] in Ser um or PlasmaOrdered By: Zachariah Saldaña on 03-02-2023 Calcium [Mass/Vol] 9.7 mg/dL 8.6-10.3 [facility] Carbon dioxide, total [Moles /volume] in Serum or PlasmaOrdered By: Zachariah Saldaña on 03-02-2023 CO2 [Moles/Vol] 27.1 mmol/L 21.0-31.0 [facility] Chloride [Moles/volume] in S nuno or PlasmaOrdered By: Zachariah Saldaña on 03-02-2023 Chloride [Moles/Vol] 103 mmol/L 98-107 [facility] Color Auto (U)Ordered By: Yanna mooredominguez Piotr on 03-02-2023 Color (U) Yellow Yellow [facility] Complete Blood Count Auto Di ffon 03-02-2023 Basophils (Bld) [#/Vol] 0.1 10*3/uL Normal 0.0-0.2 [facility] Comment on above: Result Comment: PERF ORMED BY: [facility] [address] [facility] [place] [address] PATHOLOGIST PATIENT SCHEDULER DEONNA COURTNEY M.D. Performed By: #### H S TROP, CMP, PTT, ETOH, CK, CBC, PT ####[address] Basophils/100 WBC (Bld) 0.6 % Normal . [facility] Comment on above: Performed By: #### H S TROP, CMP, PTT, ETOH, CK, CBC, PT ####[address] Eosinophils (Bld) [#/Vol] 0.2 10*3/uL Normal 0.0-0.45 [facility] Comment on above: Performed By: #### H S TROP, CMP, PTT, ETOH, CK, CBC, PT ####[address] Eosinophils/100 WBC (Bld) 2.3 % Normal . [facility] Comment on above: Performed By: #### H S TROP, CMP, PTT, ETOH, CK, CBC, PT ####[address] Erythrocyte distribution width (RBC) [Ratio] 14.0 % Normal 12.0-14.8 [facility] Comment on above: Performed By: #### H S TROP, CMP, PTT, ETOH, CK, CBC, PT ####[address] Hematocrit (Bld) [Volume fraction] 44.2 % Normal 38.8-50.0 [facility] Comment on above: Performed By: #### H S TROP, CMP, PTT, ETOH, CK, CBC, PT ####[address] Hemoglobin (Bld) [Mass/Vol] 15.1 g/dL Normal 13.0-17.0 [facility] Comment on above: Performed By: #### H S TROP, CMP, PTT, ETOH, CK, CBC, PT ####[address] Lymphocytes (Bld) [#/Vol] 2.5 10*3/uL Normal 1.00-4.8 [facility] Comment on above: Performed By: #### H S TROP, CMP, PTT, ETOH, CK, CBC, PT ####[address] Lymphocytes/100 WBC (Bld) 27.3 % Normal . [facility] Comment on above: Performed By: #### H S TROP, CMP, PTT, ETOH, CK, CBC, PT ####[address] MCH (RBC) [Entitic mass] 31.0 pg Normal 27.5-35.2 [facility] Comment on above: Performed By: #### H S TROP, CMP, PTT, ETOH, CK, CBC, PT ####[address] MCV (RBC) [Entitic vol] 90.7 fL Normal 83.5-101 [facility] Comment on above: Performed By: #### H S TROP, CMP, PTT, ETOH, CK, CBC, PT ####[address] Mean Corpuscular HGB Conc 34.2 g/dL Normal 32.5-35.6 [facility] Comment on above: Performed By: #### H S TROP, CMP, PTT, ETOH, CK, CBC, PT ####[address] Monocytes (Bld) [#/Vol] 0.6 10*3/uL Normal 0.0-0.8 [facility] Comment on above: Performed By: #### H S TROP, CMP, PTT, ETOH, CK, CBC, PT ####[address] Monocytes/100 WBC (Bld) 19.54 % Normal 0.00-20.00 [facility] Comment on above: Performed By: #### H S TROP, CMP, PTT, ETOH, CK, CBC, PT ####[address] Monocytes/100 WBC (Bld) 6.2 % Normal . [facility] Comment on above: Performed By: #### H S TROP, CMP, PTT, ETOH, CK, CBC, PT ####[address] Neutrophils (Bld) [#/Vol] 5.9 10*3/uL Normal 1.8-7.7 [facility] Comment on above: Performed By: #### H S TROP, CMP, PTT, ETOH, CK, CBC, PT ####[address] Neutrophils/100 WBC (Bld) 63.6 % Normal . [facility] Comment on above: Performed By: #### H S TROP, CMP, PTT, ETOH, CK, CBC, PT ####[address] NRBC% 0.2 /100{WBC} Normal 0-0.5 [facility] Comment on above: Performed By: #### H S TROP, CMP, PTT, ETOH, CK, CBC, PT ####[address] Platelet mean volume (Bld) [Entitic vol] 8.7 fL Normal 6.6-10.1 [facility] Comment on above: Performed By: #### H S TROP, CMP, PTT, ETOH, CK, CBC, PT ####[address] Platelets (Bld) [#/Vol] 283 10*3/uL Normal 150-450 [facility] Comment on above: Performed By: #### H S TROP, CMP, PTT, ETOH, CK, CBC, PT ####[address] RBC (Bld) [#/Vol] 4.88 10*6/uL Normal 3.90-5.60 [facility] Comment on above: Performed By: #### H S TROP, CMP, PTT, ETOH, CK, CBC, PT ####[address] WBC (Bld) [#/Vol] 9.3 10*3/uL Normal 4.1-10.5 [facility] Comment on above: Performed By: #### H S TROP, CMP, PTT, ETOH, CK, CBC, PT ####[address] Comprehensive Metabolic Pane dorothy 03-02-2023 Albumin [Mass/Vol] 3.5 g/dL Normal 3.5-5.7 [facility] Comment on above: Performed By: #### H S TROP, CMP, PTT, ETOH, CK, CBC, PT ####[address] Albumin/Globulin [Mass ratio] 1.1 {ratio} Normal [facility] Comment on above: Performed By: #### H S TROP, CMP, PTT, ETOH, CK, CBC, PT ####[address] ALP [Catalytic activity/Vol] 234 U/L High 34-104 [facility] Comment on above: Performed By: #### H S TROP, CMP, PTT, ETOH, CK, CBC, PT ####[place] [id number] [facility] ALT [Catalytic activity/Vol] 22 U/L Normal 7-52 [facility] Comment on above: Performed By: #### H S TROP, CMP, PTT, ETOH, CK, CBC, PT ####[place] [id number] [facility] Anion gap [Moles/Vol] 9.2 mmol/L Normal 6.0-15.0 [facility] Comment on above: Performed By: #### H S TROP, CMP, PTT, ETOH, CK, CBC, PT ####[address] AST [Catalytic activity/Vol] 20 U/L Normal 13-39 [facility] Comment on above: Performed By: #### H S TROP, CMP, PTT, ETOH, CK, CBC, PT ####[address] Bilirubin [Mass/Vol] 0.5 mg/dL Normal 0.3-1.0 [facility] Comment on above: Performed By: #### H S TROP, CMP, PTT, ETOH, CK, CBC, PT ####[address] Calcium [Mass/Vol] 9.7 mg/dL Normal 8.6-10.3 [facility] Comment on above: Performed By: #### H S TROP, CMP, PTT, ETOH, CK, CBC, PT ####[place] [id number] [facility] Chloride [Moles/Vol] 103 mmol/L Normal 98-107 [facility] Comment on above: Performed By: #### H S TROP, CMP, PTT, ETOH, CK, CBC, PT ####[place] [id number] [facility] CO2 [Moles/Vol] 27.1 mmol/L Normal 21.0-31.0 [facility] Comment on above: Performed By: #### H S TROP, CMP, PTT, ETOH, CK, CBC, PT ####[place] [id number] [place] [id number] [facility] Creatinine [Mass/Vol] 0.77 mg/dL Normal 0.70-1.30 [facility] Comment on above: Performed By: #### H S TROP, CMP, PTT, ETOH, CK, CBC, PT ####[place] [address] [place] [id number] [facility] Creatinine Clr Calc Pharmacy 101.58 [facility] Comment on above: Result Comment: PERF ORMED BY: [facility] [address] [place] [address] PATHOLOGIST PATIENT SCHEDULER DEONNA COURTNEY M.D. Performed By: #### H S TROP, CMP, PTT, ETOH, CK, CBC, PT ####[address] GFR/1.73 sq M.predicted MDRD (S/P/Bld) [Vol rate/Area] mL/min/{1.73_m2} [facility] Comment on above: Performed By: #### H S TROP, CMP, PTT, ETOH, CK, CBC, PT ####[place] [address] [place] [id number] [facility] Globulin (S) [Mass/Vol] 3.2 g/dL [facility] Comment on above: Performed By: #### H S TROP, CMP, PTT, ETOH, CK, CBC, PT ####[place] [id number] [facility] Glucose [Mass/Vol] 399 mg/dL High 70-100 [facility] Comment on above: Result Comment: [place] Glucose Reference Range is dependent on time and content of last meal. Glucose of more than 200 mg/dL in a nonstressed, ambulatory subject supports the diagnosis of Diabetes Mellitus. ADA recommended reference range Performed By: #### H S TROP, CMP, PTT, ETOH, CK, CBC, PT ####[place] [id number] [facility] Potassium [Moles/Vol] 4.3 mmol/L Normal 3.5-5.1 [facility] Comment on above: Performed By: #### H S TROP, CMP, PTT, ETOH, CK, CBC, PT ####[place] [address] Protein [Mass/Vol] 6.7 g/dL Normal 6.4-8.9 [facility] Comment on above: Performed By: #### H S TROP, CMP, PTT, ETOH, CK, CBC, PT ####[address] Sodium [Moles/Vol] 135 mmol/L Low 136-145 [facility] Comment on above: Performed By: #### H S TROP, CMP, PTT, ETOH, CK, CBC, PT ####[address] Urea nitrogen [Mass/Vol] 17 mg/dL Normal 7-25 [facility] Comment on above: Performed By: #### H S TROP, CMP, PTT, ETOH, CK, CBC, PT ####[place] [id number] [facility] Creatine Kinaseon 03-02-2023 CK [Catalytic activity/Vol] 84 U/L Normal [facility] Comment on above: Performed By: #### H S TROP, CMP, PTT, ETOH, CK, CBC, PT ####[place] [id number] [facility] Creatine kinase [Enzymatic a ctivity/volume] in Serum or PlasmaOrdered By: Zachariah Saldaña on 03-02-2023 CK [Catalytic activity/Vol] 84 U/L [facility] Creatinine [Mass/volume] in Serum or PlasmaOrdered By: Zachariah Saldaña on 03-02-2023 Creatinine [Mass/Vol] 0.77 mg/dL 0.70-1.30 [facility] Dipstick and Microscopicon 0 03-02-2023 Appearance (U) Clear Normal Clear [facility] Comment on above: Order Comment: Name Collection Type:: Clean-Voided Midstream Performed By: #### A DDONUAPLUS ####[place] [address] [place] [address] [place] Bacteria,Urine None Seen Normal None Seen [facility] Comment on above: Order Comment: Name Collection Type:: Clean-Voided Midstream Performed By: #### A DDONUAPLUS ####[address] [address] [place] Bilirubin,Urine Negative Normal Negative [facility] Comment on above: Order Comment: Name Collection Type:: Clean-Voided Midstream Performed By: #### A DDONUAPLUS ####[address] [address] [place] Color (U) Yellow Normal Yellow [facility] Comment on above: Order Comment: Name Collection Type:: Clean-Voided Midstream Performed By: #### A DDONUAPLUS ####[address] [address] [place] Glucose Ql (U) >=1000 High Normal [facility] Comment on above: Order Comment: Name Collection Type:: Clean-Voided Midstream Performed By: #### A DDONUAPLUS ####[address] [address] [place] Hyaline Casts,Urine None Seen Normal 0-8 [facility] Comment on above: Order Comment: Name Collection Type:: Clean-Voided Midstream Result Comment: PERF ORMED BY: [facility] [address] [facility] [place] [id number] PATHOLOGIST PATIENT SCHEDULER DEONNA COURTNEY M.D. Performed By: #### A DDONUAPLUS ####[address] [address] [place] Ketones Ql (U) Negative Normal Negative [facility] Comment on above: Order Comment: Name Collection Type:: Clean-Voided Midstream Performed By: #### A DDONUAPLUS ####[address] [address] [place] Leukocyte esterase Test strip Ql (U) Negative Normal Negative [facility] Comment on above: Order Comment: Name Collection Type:: Clean-Voided Midstream Performed By: #### A DDONUAPLUS ####[place] [address] [place] [address] [place] Nitrite,Urine Negative Normal Negative [facility] Comment on above: Order Comment: Name Collection Type:: Clean-Voided Midstream Performed By: #### A DDONUAPLUS ####[address] [address] [facility] Occult Blood,Urine Negative Normal Negative [facility] Comment on above: Order Comment: Name Collection Type:: Clean-Voided Midstream Result Comment: PERF ORMED BY: [facility] [address] [place] [id number] PATHOLOGIST PATIENT SCHEDULER DEONNA COURTNEY M.D. Performed By: #### A DDONUAPLUS ####[address] [address] [facility] pH (U) 6.5 [pH] Normal 5.0-9.0 [facility] Comment on above: Order Comment: Name Collection Type:: Clean-Voided Midstream Performed By: #### A DDONUAPLUS ####[address] [address] [facility] Protein,Urine Trace High Negative [facility] Comment on above: Order Comment: Name Collection Type:: Clean-Voided Midstream Performed By: #### A DDONUAPLUS ####[address] [address] [facility] RBC LM.HPF (Urine sed) [#/Area] 0 /[HPF] Normal 0-4 [facility] Comment on above: Order Comment: Name Collection Type:: Clean-Voided Midstream Performed By: #### A DDONUAPLUS ####[address] [address] [facility] Specificy [place],Urine 1.028 Normal 1.001-1.030 [facility] Comment on above: Order Comment: Name Collection Type:: Clean-Voided Midstream Performed By: #### A DDONUAPLUS ####[address] [address] [facility] Squamous Epithelial Cell,Urine None Seen Normal 0-2 [facility] Comment on above: Order Comment: Name Collection Type:: Clean-Voided Midstream Performed By: #### A DDONUAPLUS ####[place] [address] Urobilinogen,Urine Normal Normal Normal [facility] Comment on above: Order Comment: Name Collection Type:: Clean-Voided Midstream Performed By: #### A DDONUAPLUS ####[place] [address] WBC LM.HPF (Urine sed) [#/Area] 0 /[HPF] Normal 0-4 [facility] Comment on above: Order Comment: Name Collection Type:: Clean-Voided Midstream Performed By: #### A DDONUAPLUS ####[place] [address] ECG 12 lead ECGon 03-02-2023 ECG 12 lead ECG [facility] Main [place] [address] [place] [address] Electrocardiograph Report Signed Patient: Akbar Byrnes MR#: [id number] : 1960 Acct:[id number] Age/Sex: 62 / M ADM Date: 03/02/23 Loc: Room: [address] [place] [address] Type: ADM IN Attending Dr: Devin Starks DO Ordering Provider: Zachariah Saldaña Jr, MD Date of Service: 03/02/23 ECG/ECG 12 lead ECG: TRAUMA Copies to: Test Reason : Blood Pressure : 180/118 mmHG Vent. Rate : 076 BPM Atrial Rate : 076 BPM P-R Int : 198 ms QRS Dur : 076 ms QT Int : 380 ms P-R-T Axes : 064 075 078 degrees QTc Int : 427 ms Sinus rhythm with premature atrial complexes Otherwise normal ECG When compared with ECG of 14-MAR-2020 08:44, premature atrial complexes are now present Confirmed by ZACHARIAH SALDAÑA MD ([id number]) on 03/03/2023 5:47:15 AM Referred By: Electronically Signed By:ZACHARIAH SALDAÑA MD Transcribed By: MUS Signed By Zachariah Saldaña Jr, MD 0547 [facility] Eosinophils Auto (Bld) [#/Vo l]Ordered By: Zachariah Saldaña on 03-02-2023 Eosinophils (Bld) [#/Vol] 0.2 10*3/uL 0.0-0.45 [facility] Eosinophils/100 WBC Auto (Bl d)Ordered By: Zachariah Saldaña on 03-02-2023 Eosinophils/100 WBC (Bld) 2.3 % . [facility] Erythrocyte distribution wid th Auto (RBC) [Ratio]Ordered By: Zachariah Saldaña on 03-02-2023 Erythrocyte distribution width (RBC) [Ratio] 14.0 % 12.0-14.8 [facility] Ethanol [Mass/volume] in Ser um or PlasmaOrdered By: Zachariah Saldaña on 03-02-2023 Ethanol [Mass/Vol] mg/dL [facility] Ethanol [Mass/Vol] TNP [facility] Comment on above: Test not performed Ethyl Alcohol Profileon 02-14 Ethanol [Mass/Vol] mg/dL Normal [facility] Comment on above: Performed By: #### H S TROP, CMP, PTT, ETOH, CK, CBC, PT ####[facility] [id number] Percent Ethanol Not performed Normal [facility] Comment on above: Result Comment: PERF ORMED BY: [facility] [address] [facility] [place] [address] PATHOLOGIST PATIENT SCHEDULER DEONNA COURTNEY M.D. Performed By: #### H S TROP, CMP, PTT, ETOH, CK, CBC, PT ####[facility] [id number] [place] [phone] [facility] Globulin Calc (S) [Mass/Vol] Ordered By: Zachariah Saldaña on 03-02-2023 Globulin (S) [Mass/Vol] 3.2 g/dL [facility] Glucose Glucometer (BldC) [M ass/Vol]Ordered By: Zachariah Saldaña on 03-02-2023 Glucose [Mass/Vol] 341 mg/dL [facility] Comment on above: Random Glucose Refer ence Range is dependent on time and content of last meal. Glucose of more than 200 mg/dL in a nonstressed, ambulatory subject supports the diagnosis of Diabetes Mellitus. Glucose Poct Glucometerson 0 03-02-2023 Commemt1 Glu2: Cleaned Meter [facility] Comment on above: Performed By: #### G LULS #### Point of Care testing , Commemt2 WILL NOTIFY DR/RN [facility] Comment on above: Result Comment: PERF ORMED BY: [facility] [address] [place] [address] PATHOLOGIST PATIENT SCHEDULER DEONNA COURTNEY M.D. Performed By: #### G LULS #### Point of Care testing , Glucose [Mass/Vol] 341 mg/dL Normal [facility] Comment on above: Result Comment: [place] Glucose Reference Range is dependent on time and content of last meal. Glucose of more than 200 mg/dL in a nonstressed, ambulatory subject supports the diagnosis of Diabetes Mellitus. Performed By: #### G LULS #### Point of Care testing , Glucose [Mass/volume] in Ser um or PlasmaOrdered By: Zachariah Saldaña on 03-02-2023 Glucose [Mass/Vol] 399 mg/dL 70-100 [facility] Comment on above: ADA recommended refe rence rangeRandom Glucose Reference Range is dependent on time and content of last meal. Glucose of more than 200 mg/dL in a nonstressed, ambulatory subject supports the diagnosis of Diabetes Mellitus. Hematocrit Auto (Bld) [Volum e fraction]Ordered By: Zachariah Saldaña on 03-02-2023 Hematocrit (Bld) [Volume fraction] 44.2 % 38.8-50.0 [facility] Hemoglobin [Mass/volume] in BloodOrdered By: Zachariah Saldaña on 03-02-2023 Hemoglobin (Bld) [Mass/Vol] 15.1 g/dL 13.0-17.0 [facility] Ketones Auto test strip (U) [Mass/Vol]Ordered By: Zachariah Saldaña on 03-02-2023 Ketones (U) [Mass/Vol] Negative Negative [facility] - CoagulationOrde red By: Zachariah Saldaña on 03-02-2023 PT Coag (PPP) [Time] 11.2 s 9.0-12.9 [facility] - UrinalysisOrder ed By: Zachariah Saldaña on 03-02-2023 Hyaline casts LM Ql (Urine sed) None seen [LPF] 0-8 [facility] Leukocytes [#/volume] correc robyn for nucleated erythrocytes in Blood by Automated counOrdered By: Zachariah Saldaña on 03-02-2023 WBC corrected for nucl RBC Auto (Bld) [#/Vol] 9.3 10*3/uL 4.1-10.5 [facility] Lymphocytes Auto (Bld) [#/Vo l]Ordered By: Zachariah Saldaña on 03-02-2023 Lymphocytes (Bld) [#/Vol] 2.5 10*3/uL 1.00-4.8 [facility] Lymphocytes/100 WBC Auto (Bl d)Ordered By: Zachariah Saldaña on 03-02-2023 Lymphocytes/100 WBC (Bld) 27.3 % . [facility] MCH Auto (RBC) [Entitic mass ]Ordered By: Zachariah Saldaña on 03-02-2023 MCH (RBC) [Entitic mass] 31.0 pg 27.5-35.2 [facility] MCHC Auto (RBC) [Mass/Vol]Or dered By: Zachariah Saldaña on 03-02-2023 MCHC (RBC) [Mass/Vol] 34.2 g/dL 32.5-35.6 [facility] MCV Auto (RBC) [Entitic vol] Ordered By: Zachariah Saldaña on 03-02-2023 MCV (RBC) [Entitic vol] 90.7 fL 83.5-101 [facility] Monocyte distribution width [Entitic volume] in Blood by AutomatedOrdered By: Zachariah Saldaña on 03-02-2023 Monocyte distribution width Auto (Bld) [Entitic vol] 19.54 % 0.00-20.00 [facility] Monocytes Auto (Bld) [#/Vol] Ordered By: Zachariah Saldaña on 03-02-2023 Monocytes (Bld) [#/Vol] 0.6 10*3/uL 0.0-0.8 [facility] Monocytes/100 WBC Auto (Bld) Ordered By: Zachariah Saldaña on 03-02-2023 Monocytes/100 WBC (Bld) 6.2 % . [facility] Neutrophils Auto (Bld) [#/Vo l]Ordered By: Zachariah Saldaña on 03-02-2023 Neutrophils (Bld) [#/Vol] 5.9 10*3/uL 1.8-7.7 [facility] Neutrophils/100 WBC Auto (Bl d)Ordered By: Zachariah Saldaña on 03-02-2023 Neutrophils/100 WBC (Bld) 63.6 % . [facility] Nitrite Test strip Ql (U)Ord ered By: Zachariah Saldaña on 03-02-2023 Nitrite Ql (U) Negative Negative [facility] No Panel InformationOrdered By: Zachariah Saldaña on 03-02-2023 Bedside Glucose #[address]/rn [facility] Bedside Glucose Comment Glu2: cleaned meter [facility] Estimated GFR (CKD-EPI) > 60.0 mL/Min [facility] Creatinine Clearance (Chem 101.58 [facility] Nucleated erythrocytes [Pres ence] in Blood by Automated countOrdered By: Zachariah Saldaña on 03-02-2023 Nucleated RBC Auto Ql (Bld) 0.2 /100{WBC} 0-0.5 [facility] Partial Thromboplastin Timeo n 03-02-2023 aPTT Coag (Bld) [Time] 30.0 s Normal 25.1-36.5 [facility] Comment on above: Result Comment: PERF ORMED BY: [facility] [address] [facility] [address] PATHOLOGIST PATIENT SCHEDULER DEONNA COURTNEY M.D. Performed By: #### H S TROP, CMP, PTT, ETOH, CK, CBC, PT ####[facility] [id number] Platelet mean volume Auto (B ld) [Entitic vol]Ordered By: Zachariah Saldaña on 03-02-2023 Platelet mean volume (Bld) [Entitic vol] 8.7 fL 6.6-10.1 [facility] Platelet poor plasma interna tional normalized ratio (INR) by coagulation assay (relatOrdered By: Zachariah Saldaña on 03-02-2023 INR Coag (PPP) [Relative time] 1.0 {INR} [facility] Comment on above: INR Therapeutic Rang e A) Pre- and Peroperative OAT started two weeks before surgery. NOT HIP SURGERY: 1.5 - 2.5 HIP SURGERY: 2 - 3B) Primary and secondary prevention of venous THROMBOSIS: 2 - 3C) Active venous thrombosis, pulmonary embolismand prevention of recurrent venous thrombosis: 2 - 3D) Prevention of arterial thromboembolismincluding patients with mechanical heart valves: 3 - 4.5 Platelets Auto (Bld) [#/Vol] Ordered By: Zachariah Saldaña on 03-02-2023 Platelets (Bld) [#/Vol] 283 10*3/uL 150-450 [facility] Potassium [Moles/volume] in Serum or PlasmaOrdered By: Zachariah Saldaña on 03-02-2023 Potassium [Moles/Vol] 4.3 mmol/L 3.5-5.1 [facility] Protein Auto test strip (U) [Mass/Vol]Ordered By: Zachariah Saldaña on 03-02-2023 Protein (U) [Mass/Vol] Trace mg/dL Negative [facility] Protein [Mass/volume] in Ser um or PlasmaOrdered By: aZchariah Saldaña on 03-02-2023 Protein [Mass/Vol] 6.7 g/dL 6.4-8.9 [facility] Prothrombin Time INRon 03-02 INR Coag (PPP) [Relative time] 1.0 {INR} Normal [facility] Comment on above: Result Comment: INR Therapeutic Range A) Pre- and Peroperative OAT started two weeks before surgery. NOT HIP SURGERY: 1.5 - 2.5 HIP SURGERY: 2 - 3 B) Primary and secondary prevention of venous THROMBOSIS: 2 - 3 C) Active venous thrombosis, pulmonary embolism and prevention of recurrent venous thrombosis: 2 - 3 D) Prevention of arterial thromboembolism including patients with mechanical heart valves: 3 - 4.5 Performed By: #### H S TROP, CMP, PTT, ETOH, CK, CBC, PT ####[facility] [id number] [place] [address] [facility] PT Coag (PPP) [Time] 11.2 s Normal 9.0-12.9 [facility] Comment on above: Performed By: #### H S TROP, CMP, PTT, ETOH, CK, CBC, PT ####[facility] [id number] [place] [id number] [facility] RBC Auto (Bld) [#/Vol]Ordere d By: Zachariah Saldaña on 03-02-2023 RBC (Bld) [#/Vol] 4.88 10*6/uL 3.90-5.60 [facility] Serum or plasma albumin/glob ulin mass ratioOrdered By: Zachariah Saldaña on 03-02-2023 Albumin/Globulin [Mass ratio] 1.1 {ratio} [facility] Serum or plasma anion gap de terminationOrdered By: Zachariah Saldaña on 03-02-2023 Anion gap [Moles/Vol] 9.2 mmol/L 6.0-15.0 [facility] Sodium [Moles/volume] in Ser um or PlasmaOrdered By: Zachariah Saldaña on 03-02-2023 Sodium [Moles/Vol] 135 mmol/L 136-145 [facility] Specific gravity Auto test s trip (U) [Rel density]Ordered By: Zachariah Saldaña on 03-02-2023 Specific gravity (U) [Rel density] 1.028 1.001-1.030 [facility] Squamous epithelial cells de tection in urine sediment by light microscopyOrdered By: Zachariah Saldaña on 03-02-2023 Epithelial cells.squamous LM Ql (Urine sed) None seen [HPF] 0-2 [facility] Troponin I High Sensitivityo n 03-02-2023 Troponin I High Sensitivity 4.9 pg/mL Normal 0.0-20.0 [facility] Comment on above: Result Comment: PERF ORMED BY: [facility] [address] [place] [address] PATHOLOGIST PATIENT SCHEDULER DEONNA COURTNEY M.D. Performed By: #### H S TROP, CMP, PTT, ETOH, CK, CBC, PT ####[facility] [id number] [place], [place] [id number] [facility] Troponin I.cardiac [Mass/vol ume] in Serum or Plasma by Detection limit <= 0.01 ng/Ordered By: Zachariah Saldaña on 03-02-2023 Troponin I.cardiac DL <= 0.01 ng/mL [Mass/Vol] 4.9 pg/mL 0.0-20.0 [facility] Type and Screenon 03-02-2023 ABO and Rh group Nom (Bld) Blood group O Rh(D) positive Normal [facility] Comment on above: Result Comment: PERF ORMED BY: [address] [address] PATHOLOGIST PATIENT SCHEDULER DEONNA COURTNEY M.D. Urea nitrogen [Mass/volume] in Serum or PlasmaOrdered By: Zachariah Saldaña on 03-02-2023 Urea nitrogen [Mass/Vol] 17 mg/dL 03-10 [facility] Urine bacteria detection by automated methodOrdered By: Zachariah Saldaña on 03-02-2023 Bacteria Auto Ql (U) None seen None Seen [facility] Urine clarity by refractomet ry automatedOrdered By: Zachariah Saldaña on 03-02-2023 Clarity Refractometry automated (U) Clear Clear [facility] Urine glucose measurement by automated test strip (mass/volume)Ordered By: Zachariah Saldaña on 03-02-2023 Glucose Auto test strip (U) [Mass/Vol] >=1000 mg/dL Normal [facility] Urine hemoglobin detection b y automated test stripOrdered By: Zachariah Saldaña on 03-02-2023 Hemoglobin Auto test strip Ql (U) Negative Negative [facility] Urine leukocyte esterase det ection by automated test stripOrdered By: Zachariah Saldaña on 03-02-2023 Leukocyte esterase Auto test strip Ql (U) Negative Negative [facility] Urobilinogen Auto test strip (U) [Mass/Vol]Ordered By: Zachariah Saldaña on 03-02-2023 Urobilinogen (U) [Mass/Vol] Normal mg/dL Normal [facility] WBC Auto (Bld) [#/Vol]Ordere d By: Zachariah Saldaña on 03-02-2023 WBC (Bld) [#/Vol] 9.3 10*3/uL 4.1-10.5 [facility] XR chest 1V portableon 03-02 XR chest 1V portable [facility] Main [address] [address] XRay Report Signed Patient: Akbar Byrnes MR#: [id number] : 1960 Acct:[id number] Age/Sex: 62 / M ADM Date: 03/02/23 Loc: ER Room: Type: PRE ER Attending Dr: Copies to: Zachariah Saldaña Jr, MD Ordering Provider: Zachariah Saldaña Jr, MD Date of Service: 03/02/23 XR/XR chest 1V portable: TRAUMATIC INJURY SINGLE VIEW CHEST CLINICAL HISTORY: Fell left-sided rib pain, back pain COMPARISON: None. FINDINGS: Heart appears normal in size. Vascular congestion/interstitial changes are seen. No consolidation, pneumothorax, layering pleural effusion or free air. XR/XR chest 1V portable IMPRESSION: VASCULAR CONGESTION/INTERSTITIAL CHANGES. Impression dictated by: Landen Tavares Jr., D.ONohemi03/02/2023 8:45 PM Dictation Location: [place] [address] Transcribed By: [facility] 03/02/232044 Dictated By: Landen Tavares Jr, DO 03/02/232042 Signed By: 03/02/232044 Normal [facility] pH Auto test strip (U)Ordere d By: Zachariah Saldaña on 03-02-2023 pH (U) 6.5 [pH] 5.0-9.0 [facility] CBC AUTO DIFFon 12-08-2022 BASO # 0.1 103/ul Normal 0.0-0.1 [facility] Comment on above: Performed By: #### C BC ####[facility] [id number] [place] [address]Dr. Abhinav Laguna Basophils/100 WBC (Bld) 0.4 % Normal 0.2-2.0 [facility] Comment on above: Performed By: #### C BC ####[facility] [id number] [place] [address]Dr. Mirandagallo Laguna EO # 0.1 103/ul Normal 0.0-0.7 [facility] Comment on above: Performed By: #### C BC ####[facility] [address] [place] [address]Dr. Abhinav Laguna Eosinophils/100 WBC (Bld) 0.4 % Critically low 0.9-7.0 [facility] Comment on above: Performed By: #### C BC ####[facility] [address] [place] [address]Dr. Abhinav Laguna Erythrocyte distribution width (RBC) [Ratio] 13.1 % Normal 11.0-15.0 [facility] Comment on above: Performed By: #### C BC ####[facility] [address] [place] [address]Dr. Abhinav Laguna Hematocrit (Bld) [Volume fraction] 42.1 % Normal 42.0-54.0 [facility] Comment on above: Performed By: #### C BC ####[facility] Xnxpcacjog[address] [place], [place] [address]Dr. Abhinav Laguna Hemoglobin (Bld) [Mass/Vol] 14.4 g/dL Normal 14.0-18.0 [facility] Comment on above: Performed By: #### C BC ####[facility] Gdhjzxhikg[address] [place], [place] [address]Dr. Abhinav Laguna IG # 0.36 10e3/ul Critically high 0.00-0.03 [facility] Comment on above: Performed By: #### C BC ####[facility] Gfjiczqcxe[address] [place], [place] [address]Dr. Abhinav Laguna IG % 2.4 % Critically high 0.0-0.5 [facility] Comment on above: Performed By: #### C BC ####[facility] Wibqzmdaho7[address] [place], [place] [address]Dr. Abhinav Laguna LYMPH # 1.9 103/ul Normal 1.2-3.8 [facility] Comment on above: Performed By: #### C BC ####[facility] Brsvcbnxtg3209[address] [place], [place] [address]Dr. Abhinav Laguna Lymphocytes/100 WBC (Bld) 12.5 % Critically low 20.5-60.0 [facility] Comment on above: Performed By: #### C BC ####[facility] Xybefmlzxq[address] [place], [place] [address]Dr. Abhinav Laguna MANUAL DIFF REQ NO Normal [facility] Comment on above: Performed By: #### C BC ####[facility] Lcvngicbqg22[address] [place] [id number]. Abhinav Laguna MCH (RBC) [Entitic mass] 31.1 pg Normal 25.9-34.0 [facility] Comment on above: Performed By: #### C BC ####[facility] [address]kwkqpgmfl[address] [place] [address]Dr. Abhinav Laguna MCHC (RBC) [Mass/Vol] 34.2 g/dL Normal 29.9-35.2 [facility] Comment on above: Performed By: #### C BC ####[facility] Nykbfuogzv9[address] [place], [place] [address]Dr. Abhinav Laguna MCV (RBC) [Entitic vol] 90.9 fL Normal 80.0-94.0 [facility] Comment on above: Performed By: #### C BC ####[facility] Ezwdsqjqnv4694[address] [place], [place] [address]Dr. Abhinav Laguna MONO # 0.4 103/ul Normal 0.3-0.8 [facility] Comment on above: Performed By: #### C BC ####[facility] Ssstyufquj[address] [place], [place] [address]Dr. Abhinav Laguna Monocytes/100 WBC (Bld) 2.3 % Normal 1.7-12.0 [facility] Comment on above: Performed By: #### C BC ####[facility] [address] [place], [place] [address]Dr. Abhinav Laguna NEUT # 12.5 103/ul Critically high 1.4-6.5 [facility] Comment on above: Performed By: #### C BC ####[facility] [address] [place], [place] [address]Dr. Abhinav Laguna Neutrophils/100 WBC (Bld) 82.0 % Critically high 43.0-75.0 [facility] Comment on above: Performed By: #### C BC ####[facility] Bimshmsohi9164[address] [place], [place] [address]Dr. Abhinav Laguna Platelet mean volume (Bld) [Entitic vol] 10.0 fL Normal 9.5-13.5 [facility] Comment on above: Performed By: #### C BC ####[facility] T[address]knlkjlhu70[address] [place] [id number]. Abhinav Laguna PLT 299 103/ul Normal 150-450 [facility] Comment on above: Performed By: #### C BC ####[facility] Aoweufmsly9923 [place] [address]Dr. Abhinav Laguna RBC 4.63 106/ul Critically low 4.70-6.10 [facility] Comment on above: Performed By: #### C BC ####[facility] Tdkwwwvgmc73[address] [place] [address]Dr. Abhinav Laguna WBC 15.2 103/ul Critically high 4.0-11.0 [facility] Comment on above: Performed By: #### C BC ####[facility] Cflngdbqqt[address] [place] [address]Dr. Abhinav Laguna CT HEAD WO CONon 3 CT HEAD WO CON Normal [facility] ER URINE PROFILEon 3 Bilirubin Ql (U) Negative Normal NEGATIVE [facility] Comment on above: Performed By: #### U MICRO, ERUR ####[facility] Cusuunrbjw[address] [place] [address]Dr. Abhinav Jase Clarity (U) CLEAR Normal CLEAR [facility] Comment on above: Performed By: #### U MICRO, ERUR ####[facility] Ffswnphijb44[address] [place] [address]Dr. Abhinav Laguna Color (U) YELLOW Normal YELLOW [facility] Comment on above: Performed By: #### U MICRO, ERUR ####[facility] Fwzngngvzk6106 [place] [id number]. Abhinav Laugna ERUAHD A micrscopic examina tion will be performed if indicated. Normal [facility] Comment on above: Performed By: #### U MICRO, ERUR ####[facility] Janqcgocpd25[address] [place] [address]Dr. Abhinav Laguna Glucose Ql (U) >1000 Abnormal NEGATIVE [facility] Comment on above: Performed By: #### U MICRO, ERUR ####[facility] Hrihzfiyku7[address] [place] [address]Dr. Abhinav Laguna Hemoglobin Ql (U) Negative Normal NEGATIVE [facility] Comment on above: Performed By: #### U MICRO, ERUR ####[facility] Brpvpsfvej1746[address] [place], [place] [address]Dr. Abhinav Laguna Ketones Ql (U) TRACE Abnormal NEGATIVE [facility] Comment on above: Performed By: #### U MICRO, ERUR ####[facility] Xvaqbstydu7878[address] [place], [place] [address]Dr. Abhinav Laguna LEUKOCYTES Negative Normal NEGATIVE [facility] Comment on above: Performed By: #### U MICRO, ERUR ####[facility] Cnvhlbozwu[address] [place], [place] [address]Dr. Abhinav Laguna Nitrite Ql (U) Negative Normal NEGATIVE [facility] Comment on above: Performed By: #### U MICRO, ERUR ####[facility] Xekjaixxww3928[address] [place], [place] [address]Dr. Abhinav Laguna pH (U) 5.0 [pH] Normal 5-9 [facility] Comment on above: Performed By: #### U MICRO, ERUR ####[facility] Qfmhkvvsli0646[address] [place], [place] [address]Dr. Abhinav Laguna Protein (U) [Mass/Vol] 30 mg/dL Abnormal NEGAT HOLLIS/ TRACE [facility] Comment on above: Performed By: #### U MICRO, ERUR ####[facility] Fyvjxqcyao74[address] [place], [place] [address]Dr. Abhinav Laguna SPEC GRAVITY >=1.030 Abnormal 1.005-<=1.0 25 [facility] Comment on above: Performed By: #### U MICRO, ERUR ####[facility] Ksneccptki4097[address] [place], [place] [address]Dr. Abhinav Laguna UR MICRO IND INDICATED Normal [facility] Comment on above: Performed By: #### U MICRO, ERUR ####[facility] Mipfogfwhr4897[address] [place], [place] [address]Dr. Abhinav Laguna Urobilinogen Qn (U) 1.0 {Marshall'U}/dL Normal 0.2 - 1. 0 [facility] Comment on above: Performed By: #### U MICRO, ERUR ####[facility] Hhjkjlpoeh9[address] [place], [place] [address]Dr. Abhinav Laguna PROF CHEM 8 (BAS METB)on Anion gap [Moles/Vol] 11.3 mmol/L Normal [facility] Comment on above: Performed By: #### B MP ####[facility] Lkoduhpmuj1315[address] [place], [place] [address]Dr. Abhinav Laguna Calcium [Mass/Vol] 10.4 mg/dL Critically high 8.5-10.1 [facility] Comment on above: Performed By: #### B MP ####[facility] Auavbnpsrq0549[address] [place], [place] [address]Dr. Abhinav Laguna Chloride [Moles/Vol] 99 mmol/L Normal 98-107 [facility] Comment on above: Performed By: #### B MP ####[facility] Wucfrohmuj6285[address] [place], [place] [address]Dr. Abhinav Laguna CO2 [Moles/Vol] 28.0 mmol/L Normal 21.0-32.0 [facility] Comment on above: Performed By: #### B MP ####[facility] Jkamojyatn[address] [place], [place] [address]Dr. Abhinav Laguna Creatinine [Mass/Vol] 1.05 mg/dL Normal 0.70-1.30 [facility] Comment on above: Performed By: #### B MP ####[facility] Ffkdggaefg4293[address] [place], [place] [address]Dr. Abhinav Laguna EGFR-AF GEORGIAN >60 Normal >=60 [facility] Comment on above: Performed By: #### B MP ####[facility] Dxkafntizc8248[address] [place], [place] [address]Dr. Abhinav Laguna EGFR-NON AF GEORGIAN >60 Normal >=60 [facility] Comment on above: Performed By: #### B MP ####[facility] Oqjksitzbx0079[address] [place], [place] [address]Dr. Abhinav Laguna Glucose [Mass/Vol] 244 mg/dL Critically high 74-106 T [facility] Comment on above: Performed By: #### B MP ####[facility] Teywlxtnwo0896[address] [place], [place] [address]Dr. Abhinav Laguna Potassium [Moles/Vol] 4.3 mmol/L Normal 3.5-5.1 [facility] Comment on above: Performed By: #### B MP ####[facility] Exnvpvexmq30[address] [place], [place] [address]Dr. Abhinav Laguna Sodium [Moles/Vol] 134 mmol/L Critically low 136-145 [facility] Comment on above: Performed By: #### B MP ####[facility] Avkteddngr7019[address] [place], [place] [address]Dr. Abhinav Laguna Urea nitrogen [Mass/Vol] 26.0 mg/dL Critically high 7.0-18.0 [facility] Comment on above: Performed By: #### B MP ####[facility] Crrdzqofkm0594[address] [place], [place] [address]Dr. Abhinav Laguna Urea nitrogen/Creatinine [Mass ratio] 24.8 mg/mg Normal [facility] Comment on above: Performed By: #### B MP ####[facility] Cckkrftijx65[address] [place], [place] [address]Dr. Abhinav Laguna URINE MICROSCOPIC ONLYon BACTERIA NONE SEEN Normal NONE SEEN [facility] Comment on above: Performed By: #### U MICRO, ERUR ####[facility] Jvviqdrojv1494[address] [place], [place] [address]Dr. Abhinav Laguna Bacteria identified Cx Nom (U) NOT INDICATED Normal [facility] Comment on above: Performed By: #### U MICRO, ERUR ####[facility] Tetrodwzgr398[address] [place], [place] [address]Dr. Abhinav Laguna CA OX CRYSTALS MANY Normal [facility] Comment on above: Performed By: #### U MICRO, ERUR ####[facility] Yivmeecftz12[address] [place], [place] [address]Dr. Abhinav Laguna CAST SEEN Abnormal NONE SEEN [facility] Comment on above: Performed By: #### U MICRO, ERUR ####[facility] Nocjkprawr[address] [place] [address]Dr. Abhinav Laguna Crystals LM Nom (Urine sed) SEEN Abnormal NONE SEEN [facility] Comment on above: Performed By: #### U MICRO, ERUR ####[facility] Iqyxliddwc6932 [place] [address]Dr. Abhinav Laguna Epithelial cells LM Ql (Urine sed) RARE Normal NONE SEEN /RARE [facility] Comment on above: Performed By: #### U MICRO, ERUR ####[facility] Fgkcaqtqvu8858 [place] [address]Dr. Abhinav Laguna HYALINE CAST FEW Normal [facility] Comment on above: Performed By: #### U MICRO, ERUR ####[facility] Esdrwrxsav8218 [place] [address]Dr. Abhinav Laguna MUCOUS TRACE Abnormal NONE SEEN [facility] Comment on above: Performed By: #### U MICRO, ERUR ####[facility] Tkqnfnpoob8074 [place] [address]Dr. Abhinav Laguna RBC 0-2 Normal 0-2 [facility] Comment on above: Performed By: #### U MICRO, ERUR ####[facility] Bvgvcczsuu[address] [place], [place] [address]Dr. Abhinav Laguna WBC 0-2 Abnormal NONE SEEN [facility] Comment on above: Performed By: #### U MICRO, ERUR ####[facility] Frgeypfpmd76[address] [place] [address]Dr. Abhinav Laguna XR CHEST 1 Von 12-08-2022 XR CHEST 1 V Normal [facility] BLOOD GASES BTYon 12-04-2022 02 MODE ROOM AIR Normal [facility] Comment on above: Performed By: #### A BG ####[facility] Mrdsbuuutg[address] [place], [place] [address]Dr. Abhinav Laguna ALLENS TEST Positive Normal [facility] Comment on above: Performed By: #### A BG ####[facility] Rarycabqle44[address] [place] [address]Dr. Abhinav Laguna Base excess Calc (Bld) [Moles/Vol] 2.2 mmol/L Critically high -2.0-2.0 [facility] Comment on above: Performed By: #### A BG ####[facility] Kharttoxje75[address] [place] [address]Dr. Abhinav Laguna BIPAP PRESSURE Normal [facility] Comment on above: Performed By: #### A BG ####[facility] Rfkwaloeze4244 [place] [address]Dr. Abhinav Laguna CPAP Normal [facility] Comment on above: Performed By: #### A BG ####[facility] Spkdqnukjy12[address] [place], [place] [address]Dr. Abhinav Laguna FIO2 Normal [facility] Comment on above: Performed By: #### A BG ####[facility] Ulbwxdevqp2198[address] [place], [place] [address]Dr. Abhinav Laguna HCO3 (Bld) [Moles/Vol] 27.0 mmol/L Critically high 22.0-26 .0 [facility] Comment on above: Performed By: #### A BG ####[facility] Qlijreyqhh6557[address] [place], [place] [address]Dr. Abhinav Laguna LPM Normal [facility] Comment on above: Performed By: #### A BG ####[facility] Vycqdihovf4[address] [place], [place] [address]Dr. Abhinav Laguna MINUTE VOLUME Normal [facility] Comment on above: Performed By: #### A BG ####[facility] Xmnptggxhh6466[address] [place], [place] [address]Dr. Abhinav Laguna Oxygen (Bld) [Partial pressure] 84.3 mm[Hg] Normal 80.0-100.0 [facility] Comment on above: Performed By: #### A BG ####[facility] Korkyueuun60[address] [place], [place] [address]Dr. Abhinav Laguna Oxygen saturation in Blood 96.8 % Normal 95.0-100.0 [facility] Comment on above: Performed By: #### A BG ####[facility] Wtpmyovxtu4755[address] [place], [place] [address]Dr. Abhinav Laguna PCO2 43.1 mmHg Normal 35.0-45.0 [facility] Comment on above: Performed By: #### A BG ####[facility] Yaeemdowjg668[address] [place] [address]Dr. Abhinav Laguna PEEP [facility] Comment on above: Performed By: #### A BG ####[facility] Qqeyfmxlly9913 [place] [address]Dr. Abhinav Laguna pH (Bld) 7.405 [pH] Normal 7.350-7.450 [facility] Comment on above: Performed By: #### A BG ####[facility] Pbgwftsxup6672 [place] [address]Dr. Abhinav Laguna PIP [place] [facility] Comment on above: Performed By: #### A BG ####[facility] Bbpwbezomn4385[address] [place], [place] [address]Dr. Abhinav Laguna PS [facility] Comment on above: Performed By: #### A BG ####[facility] Aztynomxor7557[address] [place], [place] [address]Dr. Abhinav Laguna PUNCTURE SITE RR Normal [facility] Comment on above: Performed By: #### A BG ####[facility] Kypwpjkhgq1139[address] [place], [place] [address]Dr. Abhinav Laguna RATE [facility] Comment on above: Performed By: #### A BG ####[facility] Ckkddxqsze9275[address] [place], [place] [address]Dr. Abhinav Laguna VENT MODE [facility] Comment on above: Performed By: #### A BG ####[facility] Nezdunfbvy64[address] [place], [place] [address]Dr. Abhinav Laguna [place] [facility] Comment on above: Performed By: #### A BG ####[facility] Ipmcevhevi8[address] [place], [place] [address]Dr. Abhinav Laguna LACTATE/LACTIC ACIDon 2022 Lactate [Moles/Vol] 2.4 mmol/L Critically high 0.4-2.0 [facility] Comment on above: Performed By: #### L ACT ####[facility] Dyhlcujyde2109[address] [place], [place] [address]Dr. Abhinav Laguna Lactate [Moles/Vol] 3.1 mmol/L Critically high 0.4-2.0 [facility] Comment on above: Performed By: #### L ACT ####[facility] Mvijiurdfb154[address] [place], [place] [address]Dr. Abhinav Laguna POINT OF CARE GLUCOSEon 11-16 Glucose [Mass/Vol] 286 mg/dL Critically high 74-106 [facility] Comment on above: Performed By: #### P OCGLUC ####[facility] Vfsvkbhkuf2684[address] [place], [place] [address]Dr. Abhinav Laguna Glucose [Mass/Vol] 94 mg/dL Normal 74-106 [facility] Comment on above: Performed By: #### P OCGLUC ####[facility] Twcurppolj95[address] [place], [place] [address]Dr. Abhinav Laguna ACETONE SERUMon 12-03-2022 ACETONE Negative Normal NEGATIVE [facility] Comment on above: Performed By: #### A CETON ####[facility] Xxflsmkswy514[address] [place], [place] [address]Dr. Abhinav Laguna BNPon 12-03-2022 Natriuretic peptide B (Bld) [Mass/Vol] 130.0 pg/mL Normal <=900.0 [facility] Comment on above: Performed By: #### B IV TECHNICIAN, CMP, LIPA, HSTROPN ####[facility] Femlvklxxq4839[address] [place], [place] [address]Dr. Abhinav Laguna CBC AUTO DIFFon 12-03-2022 BASO # 0.0 103/ul Normal 0.0-0.1 [facility] Comment on above: Performed By: #### C BC ####[facility] Taidmtqoqp025[address] [place], [place] [address]Dr. Abhinav Jase Basophils/100 WBC (Bld) 0.2 % Normal 0.2-2.0 [facility] Comment on above: Performed By: #### C BC ####[facility] Obzcrksjqn2702[address] [place], [place] [address]Dr. Abhinav Laguna EO # 0.0 103/ul Normal 0.0-0.7 [facility] Comment on above: Performed By: #### C BC ####[facility] Avoiywbouv8[address] [place] [address]Dr. Abhinav Laguna Eosinophils/100 WBC (Bld) 0.1 % Critically low 0.9-7.0 [facility] Comment on above: Performed By: #### C BC ####[facility] Huvkpdnato119[address] [place], [place] [address]Dr. Abhinav Laguna Erythrocyte distribution width (RBC) [Ratio] 12.9 % Normal 11.0-15.0 [facility] Comment on above: Performed By: #### C BC ####[facility] Axdfsiyast8723[address] [place], [place] [address]Dr. Abhinav Laguna Hematocrit (Bld) [Volume fraction] 44.2 % Normal 42.0-54.0 [facility] Comment on above: Performed By: #### C BC ####[facility] Rjncdapwpg262[address] [place], [place] [address]Dr. Abhinav Laguna Hemoglobin (Bld) [Mass/Vol] 15.7 g/dL Normal 14.0-18.0 [facility] Comment on above: Performed By: #### C BC ####[facility] Mingvrswnt238[address] [place], [place] [address]Dr. Abhinav Laguna IG # 0.14 10e3/ul Critically high 0.00-0.03 [facility] Comment on above: Performed By: #### C BC ####[facility] Njpxuwqkcl1466[address] [place], [place] [address]Dr. Abhinav Laguna IG % 0.9 % Critically high 0.0-0.5 [facility] Comment on above: Performed By: #### C BC ####[facility] Dhuuslpzjj1824[address] [place], [place] [address]Dr. Abhinav Laguna LYMPH # 1.9 103/ul Normal 1.2-3.8 [facility] Comment on above: Performed By: #### C BC ####[facility] Zayzydhukq7406[address] [place], [place] [address]Dr. Abhinav Laguna Lymphocytes/100 WBC (Bld) 11.8 % Critically low 20.5-60.0 [facility] Comment on above: Performed By: #### C BC ####[facility] Ccvwmepzmo0793 [place] [address]DrNohemi Laguna MANUAL DIFF REQ NO Normal [facility] Comment on above: Performed By: #### C BC ####[facility] Lucqgstjly8114 [place] [address]DrNohemi Laguna MCH (RBC) [Entitic mass] 31.0 pg Normal 25.9-34.0 [facility] Comment on above: Performed By: #### C BC ####[facility] Loqrvzxavf0498[address] [place], [place] [address]DrNohemi Laguna MCHC (RBC) [Mass/Vol] 35.5 g/dL Critically high 29.9-35.2 [facility] Comment on above: Performed By: #### C BC ####[facility] Gvsnugrhmj5833[address] [place], [place] [address]DrNohemi Laguna MCV (RBC) [Entitic vol] 87.4 fL Normal 80.0-94.0 [facility] Comment on above: Performed By: #### C BC ####[facility] Fdtkdcioye2617[address] [place], [place] [address]DrNohemi Laguna MONO # 1.0 103/ul Critically high 0.3-0.8 [facility] Comment on above: Performed By: #### C BC ####[facility] Qkubczzfay1026[address] [place], [place] [address]DrNohemi Laguna Monocytes/100 WBC (Bld) 6.1 % Normal 1.7-12.0 [facility] Comment on above: Performed By: #### C BC ####[facility] Hzlbdzqlys3143[address] [place], [place] [address]DrNohemi Laguna NEUT # 13.0 103/ul Critically high 1.4-6.5 [facility] Comment on above: Performed By: #### C BC ####[facility] Wfjhiavvum[address] [place], [place] [address]DrNohemi Laguna Neutrophils/100 WBC (Bld) 80.9 % Critically high 43.0-75.0 [facility] Comment on above: Performed By: #### C BC ####[facility] Anvdlxpxob1148 [place] [address]Dr. Mirandagallo Laguna Platelet mean volume (Bld) [Entitic vol] 10.0 fL Normal 9.5-13.5 [facility] Comment on above: Performed By: #### C BC ####[facility] Vzpufsxhkl4675[address] [place], [place] [address]Dr. Mirandagallo Jase PLT 446 103/ul Normal 150-450 [facility] Comment on above: Performed By: #### C BC ####[facility] Ldqwcnowrk9[address] [place], [place] [address]Dr. Mirandagallo Jase RBC 5.06 106/ul Normal 4.70-6.10 [facility] Comment on above: Performed By: #### C BC ####[facility] Wgijyoftpz833[address] [place], [place] [address]Dr. Abhinav Laguna WBC 16.1 103/ul Critically high 4.0-11.0 [facility] Comment on above: Performed By: #### C BC ####[facility] Vckagvhkot782[address] [place], [place] [address]Dr. Abhinav Laguna DRUG SCREEN RAPID (URINE)on 12-03-2022 AMP Negative Normal NEGATIVE [facility] Comment on above: Performed By: #### E RUR, DRUGRPD ####[facility] Skgefabppw4083[address] [place], [place] [address]Dr. Abhinav Laguna BAR Positive Abnormal NEGATIVE [facility] Comment on above: Performed By: #### E RUR, DRUGRPD ####[facility] Eymcsgpncc[address] [place], [place] [address]Dr. Abhinav Laguna BUP Negative Normal NEGATIVE [facility] Comment on above: Performed By: #### E RUR, DRUGRPD ####[facility] Lsqpwjzpiy[address] [place], [place] [address]Dr. Abhinav Laguna BZO Negative Normal NEGATIVE [facility] Comment on above: Performed By: #### E RUR, DRUGRPD ####[facility] Jwwyqqqikm86[address] [place] [id number]. Abhinav Laguna ISELA Negative Normal NEGATIVE [facility] Comment on above: Performed By: #### Lon RUR DRUGRPD ####[facility] Qmpvnrmeog[address] [place], [place] [address]Dr. Abhinav Laguna CUT-OFFS SEE BELOW Normal [facility] Comment on above: Result Comment: AMP (Amphetamine): 500ng/mL, BAR (Barbituates): 200 ng/mL, BZO (Benzodiazepines): 150 ng/mL, BUP (Buprenorphine): 10 ng/mL, ISELA (Cocaine): 150 ng/mL, mAMP (Methamphetamine): 500 ng/mL, MTD (Methadone): 200 ng/mL, OPI (Opiates): 100 ng/mL, OXY (Oxycodone): 100 ng/mL, PCP (Phencyclidine): 25 ng/mL, PPX (Propoxyphene): 300 ng/mL, THC (Cannabinoids): 50 ng/mL, TCA (Trycyclic Antidepressants): 300 ng/mL Performed By: #### Lon RUR DRUGRPD ####[facility] Trdpsvnolz8192[address] [place], [place] [address]Dr. Abhinav Laguna DRUG CUT HEADER DRUG CLASS TEST SYST EM CUT-OFF CONCENTRATIONS ARE FOLLOWS: Normal [facility] Comment on above: Performed By: #### Lon RUDale DRUGRPD ####[facility] Bwzlcecpli[address] [place], [place] [address]Dr. Abhinav Laguna mAMP Negative Normal NEGATIVE [facility] Comment on above: Performed By: #### Lon RUR DRUGRPD ####[facility] Zdlxuhaamc5[address] [place], [place] [address]Dr. Abhinav Laguna MTD Negative Normal NEGATIVE [facility] Comment on above: Performed By: #### E RUR DRUGRPD ####[facility] Detwmtuead[address] [place], [place] [address]Dr. Abhinav Laguna OPI Positive Abnormal NEGATIVE [facility] Comment on above: Performed By: #### E RUR DRUGRPD ####[facility] Tndqcdscnn2220 [place] [address]Dr. Mirandagallo Laguna OXY Negative Normal NEGATIVE [facility] Comment on above: Performed By: #### E RUR, DRUGRPD ####[facility] Pqkycfoihz49[address] [place], [place] [address]Dr. Abhinav Laguna PCP Negative Normal NEGATIVE [facility] Comment on above: Performed By: #### E RUR, DRUGRPD ####[facility] Sdoccphcry78[address] [place], [place] [address]Dr. Abhinav Laguna PPX Negative Normal NEGATIVE [facility] Comment on above: Performed By: #### E RUR, DRUGRPD ####[facility] Jzoqpxepxx[address] [place], [place] [address]Dr. Abhinav Laguna TCA Negative Normal NEGATIVE [facility] Comment on above: Performed By: #### E RUR, DRUGRPD ####[facility] Iwglniuqat8[address] [place], [place] [address]Dr. Abhinav Laguna THC Positive Abnormal NEGATIVE [facility] Comment on above: Performed By: #### E RUR, DRUGRPD ####[facility] Gnxmixprzn[address] [place], [place] [address]Dr. Abhinav Laguna ER URINE PROFILEon 3 Bilirubin Ql (U) Negative Normal NEGATIVE [facility] Comment on above: Performed By: #### E RUR, DRUGRPD ####[facility] Danazrrcbb[address] [place], [place] [address]Dr. Abhinav Laguna Clarity (U) CLEAR Normal CLEAR [facility] Comment on above: Performed By: #### E RUR, DRUGRPD ####[facility] Bgufktvdjv[address] [place], [place] [address]Dr. Abhinav Laguna Color (U) LT. YELLOW Normal YELLOW [facility] Comment on above: Performed By: #### E RUR, DRUGRPD ####[facility] Repxohyxyn20[address] [place], [place] [address]Dr. Abhinav Laguna ERUAHD A micrscopic examina tion will be performed if indicated. Normal [facility] Comment on above: Performed By: #### E RUR, DRUGRPD ####[facility] Ytvlzltbph5[address] [place] [address]Dr. Abhinav Laguna Glucose Ql (U) >1000 Abnormal NEGATIVE [facility] Comment on above: Performed By: #### Lon BRODY DRUGRPD ####[facility] Rkyfurvvci24[address] [place], [place] [address]Dr. Abhinav Laguna Hemoglobin Ql (U) Negative Normal NEGATIVE [facility] Comment on above: Performed By: #### Lon BRODY DRUGRPD ####[facility] Jqxllwmrdw[address] [place], [place] [address]Dr. Abhinav Laguna Ketones Ql (U) Negative Normal NEGATIVE [facility] Comment on above: Performed By: #### Lon BRODY DRUGRPD ####[facility] Cqkgssxewx68[address] [place], [place] [address]Dr. Abhinav Laguna LEUKOCYTES Negative Normal NEGATIVE [facility] Comment on above: Performed By: #### Lon BRODY DRUGRPD ####[facility] Ofqveiulou24[address] [place], [place] [address]Dr. Abhinav Laguna Nitrite Ql (U) Negative Normal NEGATIVE [facility] Comment on above: Performed By: #### Lon BRODY DRUGRPD ####[facility] Aemijpwmxa[address] [place], [place] [address]Dr. Mirandagallo Jase pH (U) 5.5 [pH] Normal 5-9 [facility] Comment on above: Performed By: #### Lon BRODY DRUGRPD ####[facility] Sntcsbkcsc07[address] [place], [place] [address]Dr. Abhinav Laguna SPEC GRAVITY 1.025 Normal 1.005-<=1.0 25 [facility] Comment on above: Performed By: #### Lon BRODY DRUGRPD ####[facility] Jehrmelpjt8[address] [place], [place] [address]Dr. Abhinav Laguna UA PROTEIN Negative Normal NEGATIVE/ TRACE [facility] Comment on above: Performed By: #### Lon BRODY DRUGRPD ####[facility] Uiavehxwtf[address] [place], [place] [address]Dr. Abhinav Laguna UR MICRO IND NOT INDICATED Normal [facility] Comment on above: Performed By: #### E RONN, DRUGRPD ####[facility] Yzmnqnruqk230[address] [place] [address]Dr. Abhinav Laguna Urobilinogen Qn (U) 0.2 {Marshall'U}/dL Normal 0.2 - 1. 0 [facility] Comment on above: Performed By: #### E RONN, DRUGRPD ####[facility] Revzjqclcq5[address] [place] [address]Dr. Abhinav Jase LACTATE/LACTIC ACIDon 2022 Lactate [Moles/Vol] 3.0 mmol/L Critically high 0.4-2.0 [facility] Comment on above: Performed By: #### L ACT ####[facility] Gwineanmlz4[address] [place] [address]Dr. Abhinav Laguna LIPASEon 12-03-2022 Lipase [Catalytic activity/Vol] 83.0 U/L Normal 73.0-393.0 [facility] Comment on above: Performed By: #### B IV TECHNICIAN, CMP, LIPA, HSTROPN ####[facility] Crpowcyknm[address] [place] [address]Dr. Abhinav Laguna PH VENOUS BLOODon 12-03-2022 PCO2 VENOUS 57.5 mmHg Critically high 40.0-52.0 [facility] Comment on above: Performed By: #### P HVEN ####[facility] Vpsmzokfuk[address] [place] [address]Dr. Abhinav Laguna pH VENOUS 7.354 Normal 7.330-7.430 [facility] Comment on above: Performed By: #### P HVEN ####[facility] Trlggaginc8[address] [place] [address]Dr. Abhinav Jase POINT OF CARE GLUCOSEon 11-15 Glucose [Mass/Vol] 304 mg/dL Critically high 74-106 [facility] Comment on above: Performed By: #### P OCGLUC ####[facility] Xyhbjxjdea4196 [place] [address]Dr. Abhinav Jase POCGLUC >600 Critically high 74-106 [facility] Comment on above: Result Comment: Lab Draw Ordered Performed By: #### P OCGLUC ####[facility] Vtqdpodrep9657 [place] [address]Dr. Abhinav Laguna PROF 14(COMP METB)on 023 Albumin [Mass/Vol] 2.7 g/dL Critically low 3.4-5.0 [facility] Comment on above: Performed By: #### B IV TECHNICIAN, CMP, LIPA, HSTROPN ####[facility] Tcuclanxhr75[address] [place] [address]Dr. Abhinav Laguna Albumin/Globulin [Mass ratio] 0.6 {ratio} Normal [facility] Comment on above: Performed By: #### B IV TECHNICIAN, CMP, LIPA, HSTROPN ####[facility] Ygdzutblei[address] [place] [address]Dr. Abhinav Laguna ALP [Catalytic activity/Vol] 456 U/L Critically high 46-116 [facility] Comment on above: Performed By: #### B IV TECHNICIAN, CMP, LIPA, HSTROPN ####[facility] Tamdndbyyc2582 [place] [address]Dr. Abhinav Laguna ALT [Catalytic activity/Vol] 28 U/L Normal 16-63 [facility] Comment on above: Performed By: #### B IV TECHNICIAN, CMP, LIPA, HSTROPN ####[facility] Eqxekctyye37[address] [place] [address]Dr. Abhinav Laguna Anion gap [Moles/Vol] 7.7 mmol/L Normal [facility] Comment on above: Performed By: #### B IV TECHNICIAN, CMP, LIPA, HSTROPN ####[facility] Ecbdajmgow2368 [place] [address]Dr. Abhinav Laguna AST [Catalytic activity/Vol] 9 U/L Critically low 15-37 [facility] Comment on above: Performed By: #### B IV TECHNICIAN, CMP, LIPA, HSTROPN ####[facility] Guzbcczdyc7939 [place] [address]Dr. Abhinav Laguna Bilirubin [Mass/Vol] 0.3 mg/dL Normal 0.2-1.0 [facility] Comment on above: Performed By: #### B IV TECHNICIAN, CMP, LIPA, HSTROPN ####[facility] Jgrywabbwm1471 [place] [address]Dr. Abhinav Laguna Calcium [Mass/Vol] 10.9 mg/dL Critically high 8.5-10.1 [facility] Comment on above: Performed By: #### B IV TECHNICIAN, CMP, LIPA, HSTROPN ####[facility] Dogujsjvgr80[address] [place], [place] [address]Dr. Abhinav Laguna Chloride [Moles/Vol] 96 mmol/L Critically low 98-107 [facility] Comment on above: Performed By: #### B IV TECHNICIAN, CMP, LIPA, HSTROPN ####[facility] Bepsqtthar[address] [place], [place] [address]Dr. Abhinav Laguna CO2 [Moles/Vol] 32.1 mmol/L Critically high 21.0-32.0 [facility] Comment on above: Performed By: #### B IV TECHNICIAN, CMP, LIPA, HSTROPN ####[facility] Fgmhdurhse[address] [place], [place] [address]Dr. Abhinav Laguna Creatinine [Mass/Vol] 1.19 mg/dL Normal 0.70-1.30 [facility] Comment on above: Performed By: #### B IV TECHNICIAN, CMP, LIPA, HSTROPN ####[facility] Jyabvgjffp50[address] [place], [place] [address]Dr. Abhinav Laguna EGFR-AF GEORGIAN >60 Normal >=60 [facility] Comment on above: Performed By: #### B IV TECHNICIAN, CMP, LIPA, HSTROPN ####[facility] Ojzhcruwlu6934 [place] [address]Dr. Abhinav Laguna EGFR-NON AF GEORGIAN >60 Normal >=60 [facility] Comment on above: Performed By: #### B IV TECHNICIAN, CMP, LIPA, HSTROPN ####[facility] Afveismbxv3572 [place] [address]Dr. Abhinav Laguna Globulin (S) [Mass/Vol] 4.6 g/dL Normal [facility] Comment on above: Performed By: #### B IV TECHNICIAN, CMP, LIPA, HSTROPN ####[facility] Qjfbguftcw1653 [place] [address]Dr. Abhinav Laguna Glucose [Mass/Vol] 478 mg/dL Critically high 74-106 [facility] Comment on above: Performed By: #### B IV TECHNICIAN, CMP, LIPA, HSTROPN ####[facility] Vsgcnkkeyd3478 [place] [address]Dr. Abhinav Laguna Potassium [Moles/Vol] 4.8 mmol/L Normal 3.5-5.1 [facility] Comment on above: Performed By: #### B IV TECHNICIAN, CMP, LIPA, HSTROPN ####[facility] Kssfkjuikx25[address] [place], [place] [address]Dr. Abhinav Laguna Protein [Mass/Vol] 7.3 g/dL Normal 6.4-8.2 [facility] Comment on above: Performed By: #### B IV TECHNICIAN, CMP, LIPA, HSTROPN ####[facility] Upjwyiebda78[address] [place], [place] [address]Dr. Abhinav Laguna Sodium [Moles/Vol] 131 mmol/L Critically low 136-145 [facility] Comment on above: Performed By: #### B IV TECHNICIAN, CMP, LIPA, HSTROPN ####[facility] Inarqgwsay9010 [place] [address]Dr. Abhinav Laguna Urea nitrogen [Mass/Vol] 35.0 mg/dL Critically high 7.0-18.0 [facility] Comment on above: Performed By: #### B IV TECHNICIAN, CMP, LIPA, HSTROPN ####[facility] Smfnyuurgb1783 [place] [address]Dr. Abhinav Laguna Urea nitrogen/Creatinine [Mass ratio] 29.4 mg/mg Normal [facility] Comment on above: Performed By: #### B IV TECHNICIAN, CMP, LIPA, HSTROPN ####[facility] Ziamunestg[address] [place], [place] [address]Dr. Abhinav Laguna TROPONIN, HIGH SENSITIVITYon 12-03-2022 HSTROP 8.5 pg/mL Normal 4.0-76.1 [facility] Comment on above: Result Comment: CUT- OFF POINTS HAVE BEEN ESTABLISHED BASED ON THE FOURTH UNIVERSAL DEFINITIONS OF MYOCARDIALINFARCTION. THE UPPER REFERENCE LIMIT (URL) OF TROPONIN, DEFINED THE 99TH PERCENTILE OFcTnI DISTRIBUTION IN A REFERENCE POPULATION, HAS BEEN CONFIRMED THE DECISION THRESHOLDFOR MS DIAGNOSIS. Performed By: #### B IV TECHNICIAN, CMP, LIPA, HSTROPN ####[facility] Kjbitlkzle4[address] [place] [address]Dr. Abhinav Laguna XR CHEST 1 Von 12-03-2022 XR CHEST 1 V Normal [facility] CARDIAC GILMER ADMITon 023 CK [Catalytic activity/Vol] 46 U/L Normal 39-308 [facility] Comment on above: Performed By: #### B DAVID, TDA ####[facility] Hxtqtsstku5[address] [place] [address]Dr. Abhinav Laguna CK.MB [Mass/Vol] 2.60 ng/mL Normal <=3.60 [facility] Comment on above: Performed By: #### B DAVID, JONELDM ####[facility] Esshiciyiv5[address] [place], [place] [address]Dr. Abhinav Laguna HSTROP 9.8 pg/mL Normal 4.0-76.1 [facility] Comment on above: Result Comment: CUT- OFF POINTS HAVE BEEN ESTABLISHED BASED ON THE FOURTH UNIVERSAL DEFINITIONS OF MYOCARDIALINFARCTION. THE UPPER REFERENCE LIMIT (URL) OF TROPONIN, DEFINED THE 99TH PERCENTILE OFcTnI DISTRIBUTION IN A REFERENCE POPULATION, HAS BEEN CONFIRMED THE DECISION THRESHOLDFOR MS DIAGNOSIS. Performed By: #### B DAVID, CMADM ####[facility] Ldmojgycxg6646 [place] [address]Dr. Abhinav Laguna RAINER 43 ng/mL Normal 16-96 [facility] Comment on above: Performed By: #### B DAVID, CMADM ####[facility] Dzbctayzrm2332 [place] [address]Dr. Abhinav Laguna CBC AUTO DIFFon 11-27-2022 BASO # 0.1 103/ul Normal 0.0-0.1 [facility] Comment on above: Performed By: #### C BC ####[facility] Gtjcrvsucz8[address] [place] [id number]. Abhinav Laguna Basophils/100 WBC (Bld) 0.4 % Normal 0.2-2.0 [facility] Comment on above: Performed By: #### C BC ####[facility] Mpgxfpwemv63[address] [place], [place] [address]Dr. Abhinav Laguna EO # 0.1 103/ul Normal 0.0-0.7 [facility] Comment on above: Performed By: #### C BC ####[facility] Ojzmimcgyv[address] [place], [place] [address]Dr. Abhinav Laguna Eosinophils/100 WBC (Bld) 0.6 % Critically low 0.9-7.0 [facility] Comment on above: Performed By: #### C BC ####[facility] Zyusnhbqae[address] [place], [place] [address]Dr. Abhinav Laguna Erythrocyte distribution width (RBC) [Ratio] 13.2 % Normal 11.0-15.0 [facility] Comment on above: Performed By: #### C BC ####[facility] Aqvxtdwwtp6[address] [place], [place] [address]Dr. Abhinav Laguna Hematocrit (Bld) [Volume fraction] 42.4 % Normal 42.0-54.0 [facility] Comment on above: Performed By: #### C BC ####[facility] Qmmvgljvlr0036[address] [place], [place] [address]Dr. Abhinav Laguna Hemoglobin (Bld) [Mass/Vol] 14.5 g/dL Normal 14.0-18.0 [facility] Comment on above: Performed By: #### C BC ####[facility] Jsxpvtopxc57[address] [place], [place] [address]Dr. Abhinav Laguna IG # 0.07 10e3/ul Critically high 0.00-0.03 [facility] Comment on above: Performed By: #### C BC ####[facility] [address] [place], [place] [address]Dr. Abhinav Laguna IG % 0.4 % Normal 0.0-0.5 [facility] Comment on above: Performed By: #### C BC ####[facility] Igitkigmow39[address] [place] [address]Dr. Abhinav Jase LYMPH # 2.3 103/ul Normal 1.2-3.8 [facility] Comment on above: Performed By: #### C BC ####[facility] Cbiwrcdmow3717 [place] [address]Dr. Abhinav Laguna Lymphocytes/100 WBC (Bld) 13.2 % Critically low 20.5-60.0 [facility] Comment on above: Performed By: #### C BC ####[facility] Qoufjwmpps4410 [place] [address]Dr. Abhinav Laguna MANUAL DIFF REQ NO Normal [facility] Comment on above: Performed By: #### C BC ####[facility] Urfivoklli4624 [place] [address]Dr. Abhinav Laguna MCH (RBC) [Entitic mass] 31.0 pg Normal 25.9-34.0 [facility] Comment on above: Performed By: #### C BC ####[facility] Zjmmmculqv8011 [place] [address]Dr. Mirandagallo Laguna MCHC (RBC) [Mass/Vol] 34.2 g/dL Normal 29.9-35.2 [facility] Comment on above: Performed By: #### C BC ####[facility] Gofymeqwev2951 [place] [id number]. Abhinav Laguna MCV (RBC) [Entitic vol] 90.6 fL Normal 80.0-94.0 [facility] Comment on above: Performed By: #### C BC ####[facility] Fpszsqymif0482 [place] [address]Dr. Abhinav Laguna MONO # 1.3 103/ul Critically high 0.3-0.8 [facility] Comment on above: Performed By: #### C BC ####[facility] Kktrdhjwyt3571 [place] [address]Dr. Abhinav Laguna Monocytes/100 WBC (Bld) 7.5 % Normal 1.7-12.0 [facility] Comment on above: Performed By: #### C BC ####[facility] Zqaffeotpa2241 [place] [address]DrNohemi Laguna NEUT # 13.3 103/ul Critically high 1.4-6.5 [facility] Comment on above: Performed By: #### C BC ####[facility] Cbeouoeswh2195 [place] [address]DrNohemi Laguna Neutrophils/100 WBC (Bld) 77.9 % Critically high 43.0-75.0 [facility] Comment on above: Performed By: #### C BC ####[facility] Qjqrudmrsg6539 [place] [id number] Laguna Platelet mean volume (Bld) [Entitic vol] 9.7 fL Normal 9.5-13.5 [facility] Comment on above: Performed By: #### C BC ####[facility] Hhrcpkhrgd1881 [place] [address]DrNohemi Laguna PLT 499 103/ul Critically high 150-450 [facility] Comment on above: Performed By: #### C BC ####[facility] Vivmueweyn2174 [place] [address]Dr. Abhinav Laguna RBC 4.68 106/ul Critically low 4.70-6.10 [facility] Comment on above: Performed By: #### C BC ####[facility] Vxmqibaoxn6368 [place] [id number] Laguna WBC 17.1 103/ul Critically high 4.0-11.0 [facility] Comment on above: Performed By: #### C BC ####[facility] Waanjmzxau5511 [place] [id number] Laguna POINT OF CARE GLUCOSEon 11-15 Glucose [Mass/Vol] 470 mg/dL Critically high 74-106 [facility] Comment on above: Performed By: #### P OCGLUC ####[facility] Eaedlzvten8818 [place] [id number] Laguna PROF CHEM 8 (BAS METB)on Anion gap [Moles/Vol] 7.5 mmol/L Normal [facility] Comment on above: Performed By: #### TAD Corley MP ####[facility] Xhojkaqnpk9620 [place] [address]Dr. Abhinav Laguna Calcium [Mass/Vol] 10.8 mg/dL Critically high 8.5-10.1 [facility] Comment on above: Performed By: #### TAD Corley MP ####[facility] Ptgbewnnyy8[address] [place], [place] [address]Dr. Abhinav Laguna Chloride [Moles/Vol] 102 mmol/L Normal 98-107 [facility] Comment on above: Performed By: #### TAD Corley MP ####[facility] Crvnxknaob37[address] [place], [place] [address]Dr. Abhinav Laguna CO2 [Moles/Vol] 31.2 mmol/L Normal 21.0-32.0 [facility] Comment on above: Performed By: #### TAD Corley MP ####[facility] Dpyvgnarqy6[address] [place], [place] [address]Dr. Mirandagallo Laguna Creatinine [Mass/Vol] 0.86 mg/dL Normal 0.70-1.30 [facility] Comment on above: Performed By: #### TAD Corley MP ####[facility] Ialtugehwr1504[address] [place], [place] [address]Dr. Mirandagallo Jase EGFR-AF GEORGIAN >60 Normal >=60 [facility] Comment on above: Performed By: #### TAD Corley MP ####[facility] Ilyshzjavr7224[address] [place], [place] [address]Dr. Abhinav Laguna EGFR-NON AF GEORGIAN >60 Normal >=60 [facility] Comment on above: Performed By: #### TAD Corley MP ####[facility] Rgtacazirr[address] [place], [place] [address]Dr. Abhinav Laguna Glucose [Mass/Vol] 513 mg/dL Critically high 74-106 [facility] Comment on above: Performed By: #### TAD Corley MP ####[facility] Vwuwkjqize[address] [place], [place] [address]Dr. Abhinav Laguna Potassium [Moles/Vol] 4.7 mmol/L Normal 3.5-5.1 [facility] Comment on above: Performed By: #### B TAD HERNANDEZ ####[facility] Rpwzpaledt2714 [place] [address]Dr. Abhinav Jase Sodium [Moles/Vol] 136 mmol/L Normal 136-145 [facility] Comment on above: Performed By: #### B TAD HERNANDEZ ####[facility] Rcirqlkeog8759 [place] [address]Dr. Mirandagallo Laguna Urea nitrogen [Mass/Vol] 30.0 mg/dL Critically high 7.0-18.0 [facility] Comment on above: Performed By: #### B TAD HERNANDEZ ####[facility] Ivdjafybmf14[address] [place], [place] [address]Dr. Abhinav Laguna Urea nitrogen/Creatinine [Mass ratio] 34.9 mg/mg Normal [facility] Comment on above: Performed By: #### B TAD HERNANDEZ ####[facility] Vqfaoncgnj77[address] [place], [place] [address]Dr. Abhinav Jase XR CHEST 2 Von 11-27-2022 XR CHEST 2 V Normal [facility] CBC AUTO DIFFon 11-26-2022 BASO # 0.0 103/ul Normal 0.0-0.1 [facility] Comment on above: Performed By: #### C BC ####[facility] Tzwlnomiom[address] [place], [place] [address]Dr. Abhinav Laguna Basophils/100 WBC (Bld) 0.2 % Normal 0.2-2.0 [facility] Comment on above: Performed By: #### C BC ####[facility] Lwwjscjobu1086[address] [place], [place] [address]Dr. Abhinav Laguna EO # 0.0 103/ul Normal 0.0-0.7 [facility] Comment on above: Performed By: #### C BC ####[facility] Qsasknulte997[address] [place], [place] [address]Dr. Abhinav Laguna Eosinophils/100 WBC (Bld) 0.0 % Critically low 0.9-7.0 [facility] Comment on above: Performed By: #### C BC ####[facility] Bpbfwmfext5431 [place] [address]Dr. Abhinav Laguna Erythrocyte distribution width (RBC) [Ratio] 13.0 % Normal 11.0-15.0 [facility] Comment on above: Performed By: #### C BC ####[facility] Slwxupvwfm7445[address] [place], [place] [address]Dr. Abhinav Laguna Hematocrit (Bld) [Volume fraction] 39.9 % Critically low 42.0-54.0 [facility] Comment on above: Performed By: #### C BC ####[facility] Dxaxysbjrt238[address] [place], [place] [address]Dr. Abhinav Laguna Hemoglobin (Bld) [Mass/Vol] 14.0 g/dL Normal 14.0-18.0 [facility] Comment on above: Performed By: #### C BC ####[facility] Kxspmhlqyz30[address] [place], [place] [address]Dr. Abhinav Laguna IG # 0.08 10e3/ul Critically high 0.00-0.03 [facility] Comment on above: Performed By: #### C BC ####[facility] Nsyzknuprv8368[address] [place], [place] [address]Dr. Abhinav Laguna IG % 0.4 % Normal 0.0-0.5 [facility] Comment on above: Performed By: #### C BC ####[facility] Lcqtmmsfqm8876[address] [place], [place] [address]Dr. Abhinav Laguna LYMPH # 2.3 103/ul Normal 1.2-3.8 [facility] Comment on above: Performed By: #### C BC ####[facility] Xuvsbddvur26[address] [place], [place] [address]Dr. Abhinav Laguna Lymphocytes/100 WBC (Bld) 12.2 % Critically low 20.5-60.0 [facility] Comment on above: Performed By: #### C BC ####[facility] Wrdteozufs049[address] [place], [place] [address]Dr. Abhinav Laguna MANUAL DIFF REQ NO Normal [facility] Comment on above: Performed By: #### C BC ####[facility] Yvdbjabkfb7312 [place] [address]DrNohemi Abhinav Jase MCH (RBC) [Entitic mass] 31.4 pg Normal 25.9-34.0 [facility] Comment on above: Performed By: #### C BC ####[facility] Axlpptnakm3379 [place] [address]Dr. Abhinav Jase MCHC (RBC) [Mass/Vol] 35.1 g/dL Normal 29.9-35.2 [facility] Comment on above: Performed By: #### C BC ####[facility] Ehaomjmvnl9848 [place] [address]DrNohemi Laguna MCV (RBC) [Entitic vol] 89.5 fL Normal 80.0-94.0 [facility] Comment on above: Performed By: #### C BC ####[facility] Ymgldzvflx32[address] [place], [place] [address]DrNohemi Laguna MONO # 1.2 103/ul Critically high 0.3-0.8 [facility] Comment on above: Performed By: #### C BC ####[facility] Cmnsprypdr80[address] [place], [place] [address]Dr. Mirandagallo Laguna Monocytes/100 WBC (Bld) 6.2 % Normal 1.7-12.0 [facility] Comment on above: Performed By: #### C BC ####[facility] Ohmnpickcp68[address] [place], [place] [address]DrNohemi Laguna NEUT # 15.1 103/ul Critically high 1.4-6.5 [facility] Comment on above: Performed By: #### C BC ####[facility] Mtodmwtpwp0472[address] [place], [place] [address]DrNohemi Laguna Neutrophils/100 WBC (Bld) 81.0 % Critically high 43.0-75.0 [facility] Comment on above: Performed By: #### C BC ####[facility] Fxbqpfdnmn0415[address] [place], [place] [address]DrNohemi Laguna Platelet mean volume (Bld) [Entitic vol] 9.5 fL Normal 9.5-13.5 [facility] Comment on above: Performed By: #### C BC ####[facility] Uvrkzawase2684 [place] [address]Dr. Abhinav Laguna PLT 514 103/ul Critically high 150-450 [facility] Comment on above: Performed By: #### C BC ####[facility] Rltrjeiwrr3235 [place] [address]Dr. Abhinav Laguna RBC 4.46 106/ul Critically low 4.70-6.10 [facility] Comment on above: Performed By: #### C BC ####[facility] Rdarklgnnu6819 [place] [address]Dr. Abhinav Laguna WBC 18.7 103/ul Critically high 4.0-11.0 [facility] Comment on above: Performed By: #### C BC ####[facility] Umkeecxwns8359[address] [place], [place] [address]DrNohemi Laguna PROF CHEM 8 (BAS METB)on Anion gap [Moles/Vol] 10.9 mmol/L Normal [facility] Comment on above: Performed By: #### B MP ####[facility] Pnduroupqj3974[address] [place], [place] [address]DrNohemi Laguna Calcium [Mass/Vol] 10.6 mg/dL Critically high 8.5-10.1 [facility] Comment on above: Performed By: #### B MP ####[facility] Jttbjrixjy39[address] [place], [place] [address]DrNohemi Laguna Chloride [Moles/Vol] 103 mmol/L Normal 98-107 [facility] Comment on above: Performed By: #### B MP ####[facility] Pjrngslnha2217[address] [place], [place] [address]DrNohemi Laguna CO2 [Moles/Vol] 28.8 mmol/L Normal 21.0-32.0 [facility] Comment on above: Performed By: #### B MP ####[facility] Gqstbovloz68[address] [place], [place] [address]DrNohemi Laguna Creatinine [Mass/Vol] 0.90 mg/dL Normal 0.70-1.30 [facility] Comment on above: Performed By: #### B MP ####[facility] Eefqzctvbf3075 [place] [address]Dr. Abhinav Jase EGFR-AF GEORGIAN >60 Normal >=60 [facility] Comment on above: Performed By: #### B MP ####[facility] Svyqzxhahw8363 [place] [address]Dr. Abhinav Jase EGFR-NON AF GEORGIAN >60 Normal >=60 [facility] Comment on above: Performed By: #### B MP ####[facility] Jevelghkhk0429 [place] [address]Dr. Mirandagallo Jase Glucose [Mass/Vol] 296 mg/dL Critically high 74-106 [facility] Comment on above: Performed By: #### B MP ####[facility] Mgloyesjqv6[address] [place], [place] [address]Dr. Abhinav [place]una Potassium [Moles/Vol] 4.7 mmol/L Normal 3.5-5.1 [facility] Comment on above: Performed By: #### B MP ####[facility] [address]zdndgryfk[address] [place], [place] [address]Dr. Abhinav Laguna Sodium [Moles/Vol] 138 mmol/L Normal 136-145 [facility] Comment on above: Performed By: #### B MP ####[facility] Cf[address]qyyjnu[address] [place] [address]Dr. Mirandagallo Jase Urea nitrogen [Mass/Vol] 32.0 mg/dL Critically high 7.0-18.0 [facility] Comment on above: Performed By: #### B MP ####[facility] Xfbosveoof69[address] [place] [address]Dr. Abhinav Laguna Urea nitrogen/Creatinine [Mass ratio] 35.6 mg/mg Normal [facility] Comment on above: Performed By: #### B MP ####[facility] Ziijdsrtmg[address] [place], [place] [address]Dr. Abhinav Laguna BLOOD GASES BTYon 11-25-2022 02 MODE NASAL CANNULA Normal [facility] Comment on above: Performed By: #### A BG ####[facility] Eqlxatyaue[address] [place] [address]Dr. Abhinav Laguna ALLENS TEST Positive Normal [facility] Comment on above: Performed By: #### A BG ####[facility] Jklafrbwid7[address] [place] [address]Dr. Abhinav Laguna Base excess Calc (Bld) [Moles/Vol] 4.5 mmol/L Critically high -2.0-2.0 [facility] Comment on above: Performed By: #### A BG ####[facility] Sogasumksx[address] [place] [address]Dr. Abhinav Laguna BIPAP PRESSURE Normal [facility] Comment on above: Performed By: #### A BG ####[facility] Kzqmemgtbu[address] [place], [place] [address]Dr. Abhinav Laguna CPAP Normal [facility] Comment on above: Performed By: #### A BG ####[facility] Jyfwavhfbz[address] [place], [place] [address]Dr. Abhinav Laguna FIO2 Normal [facility] Comment on above: Performed By: #### A BG ####[facility] Zkhdrbxvam[address] [place], [place] [address]Dr. Abhinav Laguna HCO3 (Bld) [Moles/Vol] 28.7 mmol/L Critically high 22.0-26 .0 [facility] Comment on above: Performed By: #### A BG ####[facility] Jcnvstkoim[address] [place], [place] [address]Dr. Abhinav Laguna LPM 4 Normal [facility] Comment on above: Performed By: #### A BG ####[facility] Ihexxjrlvg[address] [place], [place] [address]Dr. Abhinav Laguna MINUTE VOLUME Normal [facility] Comment on above: Performed By: #### A BG ####[facility] Vpxoiyjfnw[address] [place], [place] [address]Dr. Abhinav Laguna Oxygen (Bld) [Partial pressure] 82.3 mm[Hg] Normal 80.0-100.0 [facility] Comment on above: Performed By: #### A BG ####[facility] Cuxgiwzgsy23[address] [place] [address]Dr. Abhinav Laguna Oxygen saturation in Blood 97.3 % Normal 95.0-100.0 [facility] Comment on above: Performed By: #### A BG ####[facility] Jjrhbuoonl28[address] [place] [address]Dr. Abhinav Laguna PCO2 43.1 mmHg Normal 35.0-45.0 [facility] Comment on above: Performed By: #### A BG ####[facility] Auyovqeccy[address] [place], [place] [address]Dr. Abhinav Laguna PEEP [facility] Comment on above: Performed By: #### A BG ####[facility] Ymuajxjzae[address] [place], [place] [address]Dr. Abhinav Laguna pH (Bld) 7.432 [pH] Normal 7.350-7.450 [facility] Comment on above: Performed By: #### A BG ####[facility] Eeupnyxdmh9[address] [place], [place] [address]Dr. Abhinav Laguna PIP [facility] Comment on above: Performed By: #### A BG ####[facility] Mmlqbfmnpp00[address] [place], [place] [address]Dr. Abhinav Laguna PS [facility] Comment on above: Performed By: #### A BG ####[facility] Atcxrjqxgi4462[address] [place], [place] [address]Dr. Abhinav Laguna PUNCTURE SITE RR [facility] Comment on above: Performed By: #### A BG ####[facility] Cgoumsqhjg86[address] [place], [place] [address]Dr. Abhinav Laguna RATE [facility] Comment on above: Performed By: #### A BG ####[facility] Qrafrcmbzx854[address] [place], [place] [address]Dr. Abhinav Laguna VENT MODE [facility] Comment on above: Performed By: #### A BG ####[facility] Bhoflrcwmy76[address] [place], [place] [address]Dr. Abhinav Laguna [place] [facility] Comment on above: Performed By: #### A BG ####[facility] Hbvwnupoye19[address] [place] [address]Dr. Abhinav Laguna BNPon 11-25-2022 Natriuretic peptide B (Bld) [Mass/Vol] 279.0 pg/mL Normal <=900.0 [facility] Comment on above: Performed By: #### H STROPN, BNP, BMP ####[facility] Ixifhkvqnj[address] [place], [place] [address]Dr. Abhinav Laguna CBC AUTO DIFFon 11-25-2022 BASO # 0.1 103/ul Normal 0.0-0.1 [facility] Comment on above: Performed By: #### C BC ####[facility] Hhxqhfsqlx[address] [place], [place] [address]Dr. Abhinav Jase Basophils/100 WBC (Bld) 0.3 % Normal 0.2-2.0 [facility] Comment on above: Performed By: #### C BC ####[facility] Ksgbkbqqat[address] [place], [place] [address]Dr. Abhinav Jase EO # 0.1 103/ul Normal 0.0-0.7 [facility] Comment on above: Performed By: #### C BC ####[facility] Punviybayb4423[address] [place], [place] [address]Dr. Abhinav Jase Eosinophils/100 WBC (Bld) 0.3 % Critically low 0.9-7.0 [facility] Comment on above: Performed By: #### C BC ####[facility] Xfrirwnohz[address] [place], [place] [address]Dr. Abhinav Laguna Erythrocyte distribution width (RBC) [Ratio] 12.9 % Normal 11.0-15.0 [facility] Comment on above: Performed By: #### C BC ####[facility] Fwwfnojmdq8305[address] [place], [place] [address]Dr. Mirandagallo Jase Hematocrit (Bld) [Volume fraction] 39.1 % Critically low 42.0-54.0 [facility] Comment on above: Performed By: #### C BC ####[facility] Jwerhxhzuj966[address] [place], [place] [address]Dr. Abhinav Laguna Hemoglobin (Bld) [Mass/Vol] 14.0 g/dL Normal 14.0-18.0 [facility] Comment on above: Performed By: #### C BC ####[facility] Jeogkdhqtf5[address] [place] [address]Dr. Abhinav Laguna IG # 0.12 10e3/ul Critically high 0.00-0.03 [facility] Comment on above: Performed By: #### C BC ####[facility] Dfnrcxmjiw8024 [place] [address]Dr. Abhinav Laguna IG % 0.5 % Normal 0.0-0.5 [facility] Comment on above: Performed By: #### C BC ####[facility] Ijybgukbzt5573[address] [place], [place] [address]DrNohemi Laguna LYMPH # 2.2 103/ul Normal 1.2-3.8 [facility] Comment on above: Performed By: #### C BC ####[facility] Kawdqfmyct148[address] [place], [place] [address]Dr. Abhinav Laguna Lymphocytes/100 WBC (Bld) 9.5 % Critically low 20.5-60.0 [facility] Comment on above: Performed By: #### C BC ####[facility] Xpjoohopnc[address] [place], [place] [address]DrNohemi Laguna MANUAL DIFF REQ NO Normal [facility] Comment on above: Performed By: #### C BC ####[facility] Ipcjfqioja[address] [place], [place] [address]DrNohemi Laguna MCH (RBC) [Entitic mass] 31.5 pg Normal 25.9-34.0 [facility] Comment on above: Performed By: #### C BC ####[facility] Ipwtnasdvl8[address] [place], [place] [address]DrNohemi Laguna MCHC (RBC) [Mass/Vol] 35.8 g/dL Critically high 29.9-35.2 [facility] Comment on above: Performed By: #### C BC ####[facility] Jytuoyaiqv6[address] [place], [place] [address]DrNohemi La Jase MCV (RBC) [Entitic vol] 87.9 fL Normal 80.0-94.0 [facility] Comment on above: Performed By: #### C BC ####[facility] Wqiqjladjw48[address] [place] [address]DrNohemi Abhinav Laguna MONO # 1.3 103/ul Critically high 0.3-0.8 [facility] Comment on above: Performed By: #### C BC ####[facility] Euxmqbehul9446 [place] [address]DrNohemi Laguna Monocytes/100 WBC (Bld) 5.6 % Normal 1.7-12.0 [facility] Comment on above: Performed By: #### C BC ####[facility] Fxhpzrkied[address] [place], [place] [address]DrNohemi Jeangallo Laguna NEUT # 19.6 103/ul Critically high 1.4-6.5 [facility] Comment on above: Performed By: #### C BC ####[facility] Cepwigomts9[address] [place], [place] [address]Dr. Abhinav Laguna Neutrophils/100 WBC (Bld) 83.8 % Critically high 43.0-75.0 [facility] Comment on above: Performed By: #### C BC ####[facility] Guaxpsmpcq[address] [place], [place] [address]Dr. Abhinav Laguna Platelet mean volume (Bld) [Entitic vol] 10.1 fL Normal 9.5-13.5 [facility] Comment on above: Performed By: #### C BC ####[facility] Rpgfrwlolk[address] [place], [place] [address]Dr. Abhinav Laguna PLT 467 103/ul Critically high 150-450 [facility] Comment on above: Performed By: #### C BC ####[facility] Ppecowhzdi99[address] [place], [place] [address]DrNohemi Laguna RBC 4.45 106/ul Critically low 4.70-6.10 [facility] Comment on above: Performed By: #### C BC ####[facility] Stshdvcekh[address] [place], [place] [address]DrNohemi Laguna WBC 23.4 103/ul Critically high 4.0-11.0 [facility] Comment on above: Performed By: #### C BC ####[facility] Qnvrlljhvj99[address] [place], [place] [address]Us. Abhinav Laguna CULTURE BLOODon 11-25-2022 Microscopic examination of blood, culture Culture Observations: NO GROWTH AT 5 DAYS. Normal [facility] Comment on above: Performed By: #### B LDCX2 ####[facility] Zoxmgwjrsv1554 [place], [place] [address]Rq. Abhinav Laguna Microscopic examination of blood, culture Culture Observations: NO GROWTH AT 5 DAYS. Normal [facility] Comment on above: Performed By: #### B LDCX1 ####[facility] Tlittbdrgw3537 [place], [place] [address]Uz. Abhinav Laguna Covid-19 PCR (CVDTB)on 11-15 SARS-CoV-2 (COVID-19) RNA EVERT+probe Ql (Unsp spec) Not detected Normal NOT DETECTED [facility] Comment on above: Result Comment: When diagnostic testing is negative, the possibility of a false negative should be considered inthe context of a patient's recent exposures and the presence of clinical signs and symptomsconsistent with SARS-CoV-2.This test is not yet approved or cleared by the [place] FDA. When there are no FDA-approved or cleared tests available, and other criteria are met, FDA can make tests available under an emergency access mechanism called an Emergency Use Authorization (EUA). The EUA for this test is supported by the [employer] of Health and Human Service's declaration that circumstances exist to justify the emergency use of in vitro diagnostics for the detection and/or diagnosis of the virus that causes COVID-19. This EUA will remain in effect for the duration of the COVID-19 declaration justifying emergency of IVDs, unless it is terminated or revoked by the FDA (after which the test may no longer be used). Performed By: #### C VDTBH ####[facility] Gnnbvgrxbp8[address] [place], [place] [address]Gb. Abhinav Laguna DRUG SCREEN RAPID (URINE)on 04-11-2023 AMP Negative Normal NEGATIVE [facility] Comment on above: Performed By: #### D RUGRPD ####[facility] Oqhlxzryfn[address] [place] [address]Dr. Mirandagallo Laguna BAR Positive Abnormal NEGATIVE [facility] Comment on above: Performed By: #### D RUGRPD ####[facility] Qjefddhwza4737 [place] [address]Dr. Mirandagallo Laguna BUP Negative Normal NEGATIVE [facility] Comment on above: Performed By: #### D RUGRPD ####[facility] Ugifdbgopd5[address] [place], [place] [address]Dr. Mirandagallo Laguna BZO Negative Normal NEGATIVE [facility] Comment on above: Performed By: #### D RUGRPD ####[facility] Lkeoaslwhv0[address] [place], [place] [address]Dr. Mirandagallo Laguna ISELA Negative Normal NEGATIVE [facility] Comment on above: Performed By: #### D RUGRPD ####[facility] Bxmsjojoxk[address] [place], [place] [address]Dr. Abhinav Laguna CUT-OFFS SEE BELOW Normal [facility] Comment on above: Result Comment: AMP (Amphetamine): 500ng/mL, BAR (Barbituates): 200 ng/mL, BZO (Benzodiazepines): 150 ng/mL, BUP (Buprenorphine): 10 ng/mL, ISELA (Cocaine): 150 ng/mL, mAMP (Methamphetamine): 500 ng/mL, MTD (Methadone): 200 ng/mL, OPI (Opiates): 100 ng/mL, OXY (Oxycodone): 100 ng/mL, PCP (Phencyclidine): 25 ng/mL, PPX (Propoxyphene): 300 ng/mL, THC (Cannabinoids): 50 ng/mL, TCA (Trycyclic Antidepressants): 300 ng/mL Performed By: #### D RUGRPD ####[facility] Ixlkxjfqut8[address] [place], [place] [address]Dr. Abhinav Laguna DRUG CUT HEADER DRUG CLASS TEST SYST EM CUT-OFF CONCENTRATIONS ARE FOLLOWS: Normal [facility] Comment on above: Performed By: #### D RUGRPD ####[facility] Utpflmmczu58[address] [place] [address]Dr. Abhinav Laguna mAMP Negative Normal NEGATIVE [facility] Comment on above: Performed By: #### D RUGRPD ####[facility] Xoswbutivf79[address] [place] [id number]. Abhinav Laguna MTD Negative Normal NEGATIVE [facility] Comment on above: Performed By: #### D RUGRPD ####[facility] Kmmuhtumkp4850 [place] [id number]. Abhinav Laguna OPI Negative Normal NEGATIVE [facility] Comment on above: Performed By: #### D RUGRPD ####[facility] Isyzltqwif7[address] [place], [place] [address]Dr. Abhinav Laguna OXY Negative Normal NEGATIVE [facility] Comment on above: Performed By: #### D RUGRPD ####[facility] Nptsqlnphb24[address] [place], [place] [address]Dr. Abhinav Laguna PCP Negative Normal NEGATIVE [facility] Comment on above: Performed By: #### D RUGRPD ####[facility] Encosrwmwk9[address] [place], [place] [address]Dr. Abhinav Laguna PPX Negative Normal NEGATIVE [facility] Comment on above: Performed By: #### D RUGRPD ####[facility] Ihfxwyqyfb13[address] [place], [place] [address]Dr. Abhinav Laguna TCA Negative Normal NEGATIVE [facility] Comment on above: Performed By: #### D RUGRPD ####[facility] Zgkttxxfvj5[address] [place], [place] [address]Dr. Abhinav Laguna THC Positive Abnormal NEGATIVE [facility] Comment on above: Performed By: #### D RUGRPD ####[facility] Xltomiezgx35[address] [place], [place] [address]Dr. Abhinav Laguna ETHANOL (BLD ALC)on 11-26-19 23 ALC NOTE NOTE: 80 mg/dl is th e legal limit for a blood alcohol level Normal [facility] Comment on above: Performed By: #### E TH ####[facility] Hgmdqpopjz[address] [place], [place] [address]Dr. Abhinav Laguna Ethanol [Mass/Vol] mg/dL Normal [facility] Comment on above: Performed By: #### E TH ####[facility] Twlgddsqqo25[address] [place] [address]Dr. Abhinav Laguna LACTATE/LACTIC ACIDon 2022 Lactate [Moles/Vol] 1.5 mmol/L Normal 0.4-2.0 [facility] Comment on above: Performed By: #### L ACT ####[facility] Owhkvqddyz[address] [place], [place] [address]Dr. Abhniav Laguna POINT OF CARE GLUCOSEon 11-15 Glucose [Mass/Vol] 457 mg/dL Critically high 74-106 [facility] Comment on above: Performed By: #### P OCGLUC ####[facility] Vlyymgsnhp30[address] [place], [place] [address]Dr. Abhinav Laguna PROF CHEM 8 (BAS METB)on Anion gap [Moles/Vol] 11.9 mmol/L Normal [facility] Comment on above: Performed By: #### H STROPN, BNP, BMP ####[facility] Iapvehmjcb37[address] [place], [place] [address]Dr. Abhinav Laguna Calcium [Mass/Vol] 10.2 mg/dL Critically high 8.5-10.1 [facility] Comment on above: Performed By: #### H STROPN, BNP, BMP ####[facility] Zypsnjxnkq164[address] [place], [place] [address]Dr. Abhinav Laguna Chloride [Moles/Vol] 96 mmol/L Critically low 98-107 [facility] Comment on above: Performed By: #### H STROPN, BNP, BMP ####[facility] Eoypgcdygs49[address] [place], [place] [address]Dr. Abhinav Laguna CO2 [Moles/Vol] 28.7 mmol/L Normal 21.0-32.0 [facility] Comment on above: Performed By: #### H STROPN, BNP, BMP ####[facility] Tfqjzcrteo[address] [place], [place] [address]Dr. Abhinav Laguna Creatinine [Mass/Vol] 0.83 mg/dL Normal 0.70-1.30 [facility] Comment on above: Performed By: #### H STROPN, BNP, BMP ####[facility] Yguinombqz57[address] [place] [address]Dr. Abhinav Laguna EGFR-AF GEORGIAN >60 Normal >=60 [facility] Comment on above: Performed By: #### H STROPN, BNP, BMP ####[facility] Fftkixkslo14[address] [place] [address]Dr. Abhinav Laguna EGFR-NON AF GEORGIAN >60 Normal >=60 [facility] Comment on above: Performed By: #### H STROPN, BNP, BMP ####[facility] Dzuvxvknex66[address] [place] [address]Dr. Mirandagallo Laguna Glucose [Mass/Vol] 470 mg/dL Critically high 74-106 [facility] Comment on above: Performed By: #### H STROPN, BNP, BMP ####[facility] Ivcnxigkpx[address] [place] [address]Dr. Mirandagallo Laguna Potassium [Moles/Vol] 4.6 mmol/L Normal 3.5-5.1 [facility] Comment on above: Performed By: #### H STROPN, BNP, BMP ####[facility] Avruuuvepn33[address] [place] [address]Dr. Abhinav Laguna Sodium [Moles/Vol] 132 mmol/L Critically low 136-145 [facility] Comment on above: Performed By: #### H STROPN, BNP, BMP ####[facility] Lyjclzethp7190 [place] [address]Dr. Abhinav Laguna Urea nitrogen [Mass/Vol] 18.0 mg/dL Normal 7.0-18.0 [facility] Comment on above: Performed By: #### H STROPN, BNP, BMP ####[facility] Dkanrzszak9088 [place] [address]Dr. Abhinav Laguna Urea nitrogen/Creatinine [Mass ratio] 21.7 mg/mg Normal [facility] Comment on above: Performed By: #### H STROPN, BNP, BMP ####[facility] Zbsahllqgl79[address] [place] [address]Dr. Abhinav Laguna TROPONIN, HIGH SENSITIVITYon 11-25-2022 HSTROP 10.1 pg/mL Normal 4.0-76.1 [facility] Comment on above: Result Comment: CUT- OFF POINTS HAVE BEEN ESTABLISHED BASED ON THE FOURTH UNIVERSAL DEFINITIONS OF MYOCARDIALINFARCTION. THE UPPER REFERENCE LIMIT (URL) OF TROPONIN, DEFINED THE 99TH PERCENTILE OFcTnI DISTRIBUTION IN A REFERENCE POPULATION, HAS BEEN CONFIRMED THE DECISION THRESHOLDFOR MS DIAGNOSIS. Performed By: #### H STROPN, BNP, BMP ####[facility] Hdhhshwhla10[address] [place] [address]Dr. Abhinav Laguna XR CHEST 1 Von 11-25-2022 XR CHEST 1 V Normal [facility] ACETONE SERUMon 11-09-2022 ACETONE Negative Normal NEGATIVE [facility] Comment on above: Performed By: #### A CETON ####[facility] Pkxigyqsjp[address] [place], [place] [address]Dr. Abhinav Laguna AMMONIAon 11-09-2022 Ammonia (P) [Moles/Vol] 13 umol/L Normal 11-32 [facility] Comment on above: Performed By: #### A MM ####[facility] Rhokscaztc[address] [place], [place] [address]Dr. Abhinav Laguna CBC AUTO DIFFon 11-09-2022 BASO # 0.1 103/ul Normal 0.0-0.1 [facility] Comment on above: Performed By: #### C BC ####[facility] Hijyymyodo3[address] [place], [place] [address]Dr. Abhinav Laguna Basophils/100 WBC (Bld) 0.7 % Normal 0.2-2.0 [facility] Comment on above: Performed By: #### C BC ####[facility] Yssgzhtfyw[address] [place], [place] [address]Dr. Abhinav Laguna EO # 0.2 103/ul Normal 0.0-0.7 [facility] Comment on above: Performed By: #### C BC ####[facility] Xxdtfmkwxr5132[address] [place], [place] [address]Dr. Abhinav Laguna Eosinophils/100 WBC (Bld) 2.1 % Normal 0.9-7.0 [facility] Comment on above: Performed By: #### C BC ####[facility] Hxjrvotzbm65[address] [place] [address]Dr. Abhinav Laguna Erythrocyte distribution width (RBC) [Ratio] 12.0 % Normal 11.0-15.0 [facility] Comment on above: Performed By: #### C BC ####[facility] Cxredjnlgq2316[address] [place], [place] [address]Dr. Abhinav Laguna Hematocrit (Bld) [Volume fraction] 47.3 % Normal 42.0-54.0 [facility] Comment on above: Performed By: #### C BC ####[facility] Utapxywerh94[address] [place], [place] [address]Dr. Abhinav Laguna Hemoglobin (Bld) [Mass/Vol] 17.2 g/dL Normal 14.0-18.0 [facility] Comment on above: Performed By: #### C BC ####[facility] Gmbiezfxbk8454[address] [place], [place] [address]Dr. Abhinav Laguna IG # 0.02 10e3/ul Normal 0.00-0.03 [facility] Comment on above: Performed By: #### C BC ####[facility] Rqpyawjkdn70[address] [place], [place] [address]Dr. Abhinav Laguna IG % 0.2 % Normal 0.0-0.5 [facility] Comment on above: Performed By: #### C BC ####[facility] Foneifkyol1355[address] [place], [place] [address]Dr. Abhinav Laguna LYMPH # 2.4 103/ul Normal 1.2-3.8 [facility] Comment on above: Performed By: #### C BC ####[facility] Ykqurpgbht[address] [place], [place] [address]Dr. Abhinav Laguna Lymphocytes/100 WBC (Bld) 23.3 % Normal 20.5-60.0 [facility] Comment on above: Performed By: #### C BC ####[facility] Iaclfpvgld3901[address] [place], [place] [address]Dr. Abhinav Laguna MANUAL DIFF REQ NO Normal [facility] Comment on above: Performed By: #### C BC ####[facility] Evvsbvbfjd6086 [place] [address]Dr. Abhinav Jase MCH (RBC) [Entitic mass] 31.0 pg Normal 25.9-34.0 [facility] Comment on above: Performed By: #### C BC ####[facility] Uwdnwcsfcy9[address] [place] [address]Dr. Abhinav Jase MCHC (RBC) [Mass/Vol] 36.4 g/dL Critically high 29.9-35.2 [facility] Comment on above: Performed By: #### C BC ####[facility] Afrbfrklez1853 [place] [address]Dr. Abhinav Laguna MCV (RBC) [Entitic vol] 85.4 fL Normal 80.0-94.0 [facility] Comment on above: Performed By: #### C BC ####[facility] Vuqpmewmbg7[address] [place], [place] [address]Dr. Abhinav Laguna MONO # 0.6 103/ul Normal 0.3-0.8 [facility] Comment on above: Performed By: #### C BC ####[facility] Iwbczvojhw4[address] [place], [place] [address]Dr. Abhinav Laguna Monocytes/100 WBC (Bld) 6.0 % Normal 1.7-12.0 [facility] Comment on above: Performed By: #### C BC ####[facility] Kthojwsuxp[address] [place], [place] [address]DrNohemi Laguna NEUT # 6.9 103/ul Critically high 1.4-6.5 [facility] Comment on above: Performed By: #### C BC ####[facility] Cikvphtpeu[address] [place], [place] [address]DrNohemi Laguna Neutrophils/100 WBC (Bld) 67.7 % Normal 43.0-75.0 [facility] Comment on above: Performed By: #### C BC ####[facility] Grhyzgdnvp3[address] [place], [place] [address]DrNohemi Laguna Platelet mean volume (Bld) [Entitic vol] 10.4 fL Normal 9.5-13.5 [facility] Comment on above: Performed By: #### C BC ####[facility] Uflvevgwjv8744 [place], [place] [address]Fy. Abhinav Laguna PLT 390 103/ul Normal 150-450 [facility] Comment on above: Performed By: #### C BC ####[facility] Gnqezevuht9976 [place], [place] [address]Dz. Abhinav Laguna RBC 5.54 106/ul Normal 4.70-6.10 [facility] Comment on above: Performed By: #### C BC ####[facility] Yaaizjqxnb6447 [place], [place] [address]Wu. Abhinav Laguna WBC 10.3 103/ul Normal 4.0-11.0 [facility] Comment on above: Performed By: #### C BC ####[facility] Hhqkmoysqw8176 [place], [place] [address]Fr. Abhinav Laguna CT STROKE HEAD WOon 11-10-[address] STROKE HEAD WO Normal [facility] Covid-19 PCR (CVDTB)on 10-16 SARS-CoV-2 (COVID-19) RNA EVERT+probe Ql (Unsp spec) Not detected Normal NOT DETECTED [facility] Comment on above: Result Comment: When diagnostic testing is negative, the possibility of a false negative should be considered inthe context of a patient's recent exposures and the presence of clinical signs and symptomsconsistent with SARS-CoV-2.This test is not yet approved or cleared by the [place] FDA. When there are no FDA-approved or cleared tests available, and other criteria are met, FDA can make tests available under an emergency access mechanism called an Emergency Use Authorization (EUA). The EUA for this test is supported by the [employer] of Health and Human Service's declaration that circumstances exist to justify the emergency use of in vitro diagnostics for the detection and/or diagnosis of the virus that causes COVID-19. This EUA will remain in effect for the duration of the COVID-19 declaration justifying emergency of IVDs, unless it is terminated or revoked by the FDA (after which the test may no longer be used). Performed By: #### C VDTBH ####[facility] [address] [place] [address]Dr. Abhinav Laguna DRUG SCREEN RAPID (URINE)on 11-09-2022 AMP Negative Normal NEGATIVE [facility] Comment on above: Performed By: #### E RUR, DRUGRPD ####[facility] [address] [place] [address]Dr. Abhinav Laguna BAR Negative Normal NEGATIVE [facility] Comment on above: Performed By: #### E RUR, DRUGRPD ####[facility] Bsxksvjmdz[address] [place] [address]Dr. Abhinav [facility] BUP Negative Normal NEGATIVE [facility] Comment on above: Performed By: #### E RUR, DRUGRPD ####[facility] Sfwdsmvuvp[address] [place], [place] [address]Dr. Abhinav Laguna BZO Negative Normal NEGATIVE [facility] Comment on above: Performed By: #### E RUR, DRUGRPD ####[facility] Sqsoyeqple[address] [place], [place] [address]Dr. Abhinav Laguna ISELA Negative Normal NEGATIVE [facility] Comment on above: Performed By: #### E RUR, DRUGRPD ####[facility] Wzepucfplc[address] [place], [place] [address]Dr. Abhinav [facility] CUT-OFFS SEE BELOW Normal [facility] Comment on above: Result Comment: AMP (Amphetamine): 500ng/mL, BAR (Barbituates): 200 ng/mL, BZO (Benzodiazepines): 150 ng/mL, BUP (Buprenorphine): 10 ng/mL, ISELA (Cocaine): 150 ng/mL, mAMP (Methamphetamine): 500 ng/mL, MTD (Methadone): 200 ng/mL, OPI (Opiates): 100 ng/mL, OXY (Oxycodone): 100 ng/mL, PCP (Phencyclidine): 25 ng/mL, PPX (Propoxyphene): 300 ng/mL, THC (Cannabinoids): 50 ng/mL, TCA (Trycyclic Antidepressants): 300 ng/mL Performed By: #### E RUR, DRUGRPD ####[facility] [address] [place] [address]Dr. Abhinav Laguna DRUG CUT HEADER DRUG CLASS TEST SYST EM CUT-OFF CONCENTRATIONS ARE FOLLOWS: Normal [facility] Comment on above: Performed By: #### E RUR, DRUGRPD ####[facility] [address]bvaod[address] [place] [address]Dr. Abhinav Laguna mAMP Positive Abnormal NEGATIVE [facility] Comment on above: Performed By: #### E RUR, DRUGRPD ####[facility] [address]ffaf[address] [place], [place] [address]Dr. Abhinav Laguna MTD Negative Normal NEGATIVE [facility] Comment on above: Performed By: #### E RUR, DRUGRPD ####[facility] Cswgjgyfin[address] [place], [place] [address]Dr. Abhinav Laguna OPI Negative Normal NEGATIVE [facility] Comment on above: Performed By: #### E RUR, DRUGRPD ####[facility] Qjkoidniez27[address] [place], [place] [address]Dr. Yigallo Laguna OXY Negative Normal NEGATIVE [facility] Comment on above: Performed By: #### E RUR, DRUGRPD ####[facility] Jwfwuyqjlg[address] [place], [place] [address]Dr. Abhinav Laguna PCP Negative Normal NEGATIVE [facility] Comment on above: Performed By: #### E RUR, DRUGRPD ####[facility] Zkdfbpesoc[address] [place], [place] [address]Dr. Abhinav Laguna PPX Negative Normal NEGATIVE [facility] Comment on above: Performed By: #### E RUR, DRUGRPD ####[facility] Gxhaowujzi[address] [place], [place] [address]Dr. Abhinav Laguna TCA Negative Normal NEGATIVE [facility] Comment on above: Performed By: #### E RUR, DRUGRPD ####[facility] Zhiwpsfzek23[address] [place], [place] [address]Dr. Abhinav Laguna THC Positive Abnormal NEGATIVE [facility] Comment on above: Performed By: #### E RUR, DRUGRPD ####[facility] Dtfxlydcru[address] [place], [place] [address]Dr. Abhinav Laguna ER URINE PROFILEon 3 Bilirubin Ql (U) Negative Normal NEGATIVE [facility] Comment on above: Performed By: #### Lon BRODY DRUGRPD ####[facility] Xoyhzxsfdt[address] [place], [place] [address]Dr. Abhinav Laguna Clarity (U) CLEAR Normal CLEAR [facility] Comment on above: Performed By: #### Lon BRODY DRUGRPD ####[facility] Qgwavcwwmd9[address] [place], [place] [address]Dr. Abhinav Laguna Color (U) LT. YELLOW Normal YELLOW [facility] Comment on above: Performed By: #### Lon BRODY DRUGRPD ####[facility] Uqtfpwnwbp6[address] [place], [place] [address]Dr. Abhinav Laguna ERUAHD A micrscopic examina tion will be performed if indicated. Normal [facility] Comment on above: Performed By: #### Lon BRODY DRUGRPD ####[facility] Gspqgxniqd56[address] [place], [place] [address]Dr. Abhinav Laguna Glucose Ql (U) >1000 Abnormal NEGATIVE [facility] Comment on above: Performed By: #### Lon BRODY DRUGRPD ####[facility] Rdhrbconss9[address] [place], [place] [address]Dr. Abhinav Laguna Hemoglobin Ql (U) Negative Normal NEGATIVE [facility] Comment on above: Performed By: #### Lon BRODY DRUGRPD ####[facility] Zcpkdwtlik6264[address] [place], [place] [address]Dr. Abhinav Laguna Ketones Ql (U) Negative Normal NEGATIVE [facility] Comment on above: Performed By: #### Lon RUDale DRUGRPD ####[facility] Lwpayodgdv39[address] [place], [place] [address]Dr. Abhinav Laguna LEUKOCYTES Negative Normal NEGATIVE [facility] Comment on above: Performed By: #### Lon BRODY DRUGRPD ####[facility] Sfgapkjhxz35[address] [place], [place] [address]Dr. Abhinav Laguna Nitrite Ql (U) Negative Normal NEGATIVE [facility] Comment on above: Performed By: #### Lon BRODY DRUGRPD ####[facility] [address]rtfl[address] [place] [id number]. Mirandagallo Jase pH (U) 6.0 [pH] Normal 5-9 [facility] Comment on above: Performed By: #### Lon BRODY DRUGRPD ####[facility] [address]gtthqmedn[address] [place] [address]Dr. Abhinav Laguna SPEC GRAVITY <=1.005 Abnormal 1.005-<=[address] [place] [address] Comment on above: Performed By: #### Lon BRODY DRUGRPD ####[facility] Pjtapnrrvb[address] [place], [place] [address]Dr. Abhinav Laguna UA PROTEIN Negative Normal NEGATIVE/ TRACE [facility] Comment on above: Performed By: #### Lon BRODY DRUGRPD ####[facility] Kktodtxkdc4[address] [place], [place] [address]Dr. Abhinav Laguna UR MICRO IND NOT INDICATED Normal [facility] Comment on above: Performed By: #### Lon BRODY DRUGRPD ####[facility] Szknyyaoxb[address] [place], [place] [address]Dr. Mirandagallo Jase Urobilinogen Qn (U) 0.2 {Marshall'U}/dL Normal 0.2 - 1. 0 [facility] Comment on above: Performed By: #### Lon BRODY DRUGRPD ####[facility] Vmrbolhqnf[address] [place], [place] [address]Dr. Abhinav Laguna POINT OF CARE GLUCOSEon -2 Glucose [Mass/Vol] 162 mg/dL Critically high 74-106 [facility] Comment on above: Performed By: #### P OCGLUC ####[facility] Hzgptlnuyz7[address] [place], [place] [address]Dr. Abhinav Laguna Glucose [Mass/Vol] 303 mg/dL Critically high 74-106 [facility] Comment on above: Performed By: #### P OCGLUC ####[facility] Xtrssatqrk[address] [place], [place] [address]Dr. Abhinav Laguna Glucose [Mass/Vol] 404 mg/dL Critically high 74-106 [facility] Comment on above: Performed By: #### P OCGLUC ####[facility] Nxwkpkcxxg8[address] [place], [place] [address]Dr. Abhinav Laguna PROF 14(COMP METB)on 023 Albumin [Mass/Vol] 3.3 g/dL Critically low 3.4-5.0 [facility] Comment on above: Performed By: #### C MP ####[facility] Kvnewrykdr[address] [place], [place] [address]Dr. Abhinav Laguna Albumin/Globulin [Mass ratio] 0.8 {ratio} Normal [facility] Comment on above: Performed By: #### C MP ####[facility] Awxdecmrmv24[address] [place], [place] [address]Dr. Abhinav Laguna ALP [Catalytic activity/Vol] 290 U/L Critically high 46-116 [facility] Comment on above: Performed By: #### C MP ####[facility] Hjgquiljxk34[address] [place], [place] [address]Dr. Abhinav Laguna ALT [Catalytic activity/Vol] 36 U/L Normal 16-63 [facility] Comment on above: Performed By: #### C MP ####[facility] Eiwdahzmbq[address] [place], [place] [address]Dr. Abhinav Laguna Anion gap [Moles/Vol] 9.1 mmol/L Normal [facility] Comment on above: Performed By: #### C MP ####[facility] Wxgcjqbitf48[address] [place], [place] [address]Dr. Abhinav Laguna AST [Catalytic activity/Vol] 16 U/L Normal 15-37 [facility] Comment on above: Performed By: #### C MP ####[facility] Ghjnmlytof32[address] [place], [place] [address]Dr. Abhinav Laguna Bilirubin [Mass/Vol] 0.5 mg/dL Normal 0.2-1.0 [facility] Comment on above: Performed By: #### C MP ####[facility] Nkemopxczg8[address] [place], [place] [address]Dr. Abhinav Laguna Calcium [Mass/Vol] 10.2 mg/dL Critically high 8.5-10.1 [facility] Comment on above: Performed By: #### C MP ####[facility] [address]rlm[address] [place] [address]Dr. Abhinav Laguna Chloride [Moles/Vol] 94 mmol/L Critically low 98-107 [facility] Comment on above: Performed By: #### C MP ####[facility] Gzpovmxvfq[address] [place] [address]Dr. Abhinav Laguna CO2 [Moles/Vol] 29.3 mmol/L Normal 21.0-32.0 [facility] Comment on above: Performed By: #### C MP ####[facility] Gwdpdnlcsn[address] [place], [place] [address]Dr. Mirandagallo Jase Creatinine [Mass/Vol] 0.91 mg/dL Normal 0.70-1.30 [facility] Comment on above: Performed By: #### C MP ####[facility] Uoldnprgtr12[address] [place], [place] [address]Dr. Abhinav Jase EGFR-AF GEORGIAN >60 Normal >=60 [facility] Comment on above: Performed By: #### C MP ####[facility] Gkwklhtphq6[address] [place], [place] [address]Dr. Mirandagallo Jase EGFR-NON AF GEORGIAN >60 Normal >=60 [facility] Comment on above: Performed By: #### C MP ####[facility] Mggpvlqrnb[address] [place], [place] [address]Dr. Abhinav Laguna Globulin (S) [Mass/Vol] 4.3 g/dL Normal [facility] Comment on above: Performed By: #### C MP ####[facility] Eaddozcoiu[address] [place], [place] [address]Dr. Abhinav Laguna Glucose [Mass/Vol] 562 mg/dL Critically high 74-106 [facility] Comment on above: Performed By: #### C MP ####[facility] Skhpdgayfw[address] [place], [place] [address]Dr. Abhinav Laguna Potassium [Moles/Vol] 4.4 mmol/L Normal 3.5-5.1 [facility] Comment on above: Performed By: #### C MP ####[facility] On[address] [place] [address]Dr. Abhinav Laguna Protein [Mass/Vol] 7.6 g/dL Normal 6.4-8.2 [facility] Comment on above: Performed By: #### C MP ####[facility] Bugrysndeu[address] [place] [address]Dr. Abhinav Laguna Sodium [Moles/Vol] 128 mmol/L Critically low 136-145 [facility] Comment on above: Performed By: #### C MP ####[facility] Teotkrgiwl47[address] [place] [address]Dr. Abhinav Laguna Urea nitrogen [Mass/Vol] 21.0 mg/dL Critically high 7.0-18.0 [facility] Comment on above: Performed By: #### C MP ####[facility] Bahhmzfqof17[address] [place], [place] [address]Dr. Abhinav Laguna Urea nitrogen/Creatinine [Mass ratio] 23.1 mg/mg Normal [facility] Comment on above: Performed By: #### C MP ####[facility] Mpbgocgnql[address] [place], [place] [address]Dr. Abhinav Laguna XR CHEST 1 Von 11-09-2022 XR CHEST 1 V Normal [facility] ACETAMINOPHENon 10-23-2022 Acetaminophen [Mass/Vol] ug/mL Critically low 10.0-30.0 [facility] Comment on above: Performed By: #### T SH, CMP, SALYC, HSTROPN, ETH, ACET ####[facility] Jadbfmowon[address] [place], [place] [address]Dr. Abhinav Laguna ACETONE SERUMon 10-23-2022 ACETONE Negative Normal NEGATIVE [facility] Comment on above: Performed By: #### A CETON ####[facility] Xdrjdzyvha00[address] [place], [place] [address]Dr. Abhinav Laguna AMMONIAon 10-23-2022 Ammonia (P) [Moles/Vol] 21 umol/L Normal 11-32 [facility] Comment on above: Performed By: #### A MM ####[facility] [address]xy[address]arpkze[address] [place] [address]Dr. Abhinav Jase CBC AUTO DIFFon 10-23-2022 BASO # 0.1 103/ul Normal 0.0-0.1 [facility] Comment on above: Performed By: #### C BC ####[facility] [address]uh[address] [place] [address]Dr. Abhinav Laguna Basophils/100 WBC (Bld) 0.5 % Normal 0.2-2.0 [facility] Comment on above: Performed By: #### C BC ####[facility] Derweohycz[address] [place], [place] [address]Dr. Abhinav Laguna EO # 0.3 103/ul Normal 0.0-0.7 [facility] Comment on above: Performed By: #### C BC ####[facility] Sgvkhwtnij64[address] [place], [place] [address]Dr. Abhinav Laguna Eosinophils/100 WBC (Bld) 3.1 % Normal 0.9-7.0 [facility] Comment on above: Performed By: #### C BC ####[facility] Lrxtskqgym[address] [place], [place] [address]Dr. Abhinav Laguna Erythrocyte distribution width (RBC) [Ratio] 12.6 % Normal 11.0-15.0 [facility] Comment on above: Performed By: #### C BC ####[facility] Tusrlhqafd[address] [place], [place] [address]Dr. Abhinav Laguna Hematocrit (Bld) [Volume fraction] 42.9 % Normal 42.0-54.0 [facility] Comment on above: Performed By: #### C BC ####[facility] Uhvcoexihh[address] [place], [place] [address]Dr. Abhinav Laguna Hemoglobin (Bld) [Mass/Vol] 15.9 g/dL Normal 14.0-18.0 [facility] Comment on above: Performed By: #### C BC ####[facility] Qtmyhaimco03[address] [place], [place] [address]Dr. Abhinav Laguna IG # 0.05 10e3/ul Critically high 0.00-0.03 [facility] Comment on above: Performed By: #### C BC ####[facility] V[address]pwlgeot[address] [place] [address]Dr. Mirandagallo Laguna IG % 0.5 % Normal 0.0-0.5 [facility] Comment on above: Performed By: #### C BC ####[facility] Ta[address]qke[address] [place] [address]Dr. Mirandagallo Laguna LYMPH # 2.3 103/ul Normal 1.2-3.8 [facility] Comment on above: Performed By: #### C BC ####[facility] Ummccwmlhu[address] [place], [place] [address]Dr. Mirandagallo Laguna Lymphocytes/100 WBC (Bld) 23.1 % Normal 20.5-60.0 [facility] Comment on above: Performed By: #### C BC ####[facility] Qkamajtogz[address] [place], [place] [address]Dr. Abhinav Laguna MANUAL DIFF REQ NO Normal [facility] Comment on above: Performed By: #### C BC ####[facility] Frakjiwedp[address] [place], [place] [address]Dr. Abhinav Jase MCH (RBC) [Entitic mass] 31.3 pg Normal 25.9-34.0 [facility] Comment on above: Performed By: #### C BC ####[facility] Googjcrwqr49[address] [place], [place] [address]Dr. Abhinav Jase MCHC (RBC) [Mass/Vol] 37.1 g/dL Critically high 29.9-35.2 [facility] Comment on above: Performed By: #### C BC ####[facility] Btfdxiynzr[address] [place], [place] [address]Dr. Abhinav Jase MCV (RBC) [Entitic vol] 84.4 fL Normal 80.0-94.0 [facility] Comment on above: Performed By: #### C BC ####[facility] Uzynehqngk[address] [place], [place] [address]Dr. Abhinav Laguna MONO # 0.8 103/ul Normal 0.3-0.8 [facility] Comment on above: Performed By: #### C BC ####[facility] V[address]zcbm25[address] [place], [place] [address]Jb. Abhinav Laguna Monocytes/100 WBC (Bld) 7.8 % Normal 1.7-12.0 [facility] Comment on above: Performed By: #### C BC ####[facility] [address]rlfrmr[address] [place] [address]Dr. Abhinav Laguna NEUT # 6.4 103/ul Normal 1.4-6.5 [facility] Comment on above: Performed By: #### C BC ####[facility] V[address]swydgfcu[address] [place] [address]Dr. Abhinav Laguna Neutrophils/100 WBC (Bld) 65.0 % Normal 43.0-75.0 [facility] Comment on above: Performed By: #### C BC ####[facility] Vcjdecfeim11[address] [place] [address]Dr. Abhinav Laguna Platelet mean volume (Bld) [Entitic vol] 11.2 fL Normal 9.5-13.5 [facility] Comment on above: Performed By: #### C BC ####[facility] Lfguyaanpb[address] [place] [address]Dr. Abhinav Laguna PLT 319 103/ul Normal 150-450 [facility] Comment on above: Performed By: #### C BC ####[facility] Sacmtdfwiu220[address] [place] [address]Dr. Abhinav Laguna RBC 5.08 106/ul Normal 4.70-6.10 [facility] Comment on above: Performed By: #### C BC ####[facility] B[address]snbqdox[address] [place] [address]Dr. Abhinav Laguna WBC 9.9 103/ul Normal 4.0-11.0 [facility] Comment on above: Performed By: #### C BC ####[facility] Npjfwlpbvm[address] [place] [address]Dr. Abhinav Laguna CT STROKE HEAD WOon 10-24-19 CT STROKE HEAD WO Normal [facility] CULTURE BLOODon 10-23-2022 Microscopic examination of blood, culture Culture Observations: NO GROWTH AT 5 DAYS. Normal [facility] Comment on above: Performed By: #### B LDCX2 ####[facility] [address]qkhrmitqa[address] [place] [id number]. Abhinav Laguna Microscopic examination of blood, culture Culture Observations: NO GROWTH AT 5 DAYS. Normal [facility] Comment on above: Performed By: #### B LDCX1 ####[facility] Cdnkbmikil[address] [place] [id number]. Abhinav Laguna Covid-19 PCR (CVDTB)on SARS-CoV-2 (COVID-19) RNA EVERT+probe Ql (Unsp spec) Not detected Normal NOT DETECTED [facility] Comment on above: Result Comment: When diagnostic testing is negative, the possibility of a false negative should be considered inthe context of a patient's recent exposures and the presence of clinical signs and symptomsconsistent with SARS-CoV-2.This test is not yet approved or cleared by the [place] FDA. When there are no FDA-approved or cleared tests available, and other criteria are met, FDA can make tests available under an emergency access mechanism called an Emergency Use Authorization (EUA). The EUA for this test is supported by the [employer] of Health and Human Service's declaration that circumstances exist to justify the emergency use of in vitro diagnostics for the detection and/or diagnosis of the virus that causes COVID-19. This EUA will remain in effect for the duration of the COVID-19 declaration justifying emergency of IVDs, unless it is terminated or revoked by the FDA (after which the test may no longer be used). Performed By: #### C VDTBH ####[facility] Ofmspkpbol50[address] [place], [place] [address]Yq. Abhinav Laguna DRUG SCREEN RAPID (URINE)on 10-23-2022 AMP Positive Abnormal NEGATIVE [facility] Comment on above: Performed By: #### D CATALINA CAMARAR ####[facility] Rvvfkqscfq7[address] [place], [place] [address]Xo. Abhinav Laguna BAR Negative Normal NEGATIVE [facility] Comment on above: Performed By: #### D HOA ERUR ####[facility] Cpvdtjnmat9[address] [place] [id number]. Abhinav Laguna BUP Negative Normal NEGATIVE [facility] Comment on above: Performed By: #### CATALINA NEWTONR ####[facility] N[address]xjgftcf[address] [place], [place] [address]Dr. Abhinav Laguna BZO Negative Normal NEGATIVE [facility] Comment on above: Performed By: #### Marco Antonio CAMARA, ERUR ####[facility] Mdaxmlawwg[address] [place], [place] [address]Dr. Abhinav Laguna ISELA Positive Abnormal NEGATIVE [facility] Comment on above: Performed By: #### CATALINA NEWTONR ####[facility] Suwtmtqiqm[address] [place], [place] [address]Dr. Abhinav Laguna CUT-OFFS SEE BELOW Normal [facility] Comment on above: Result Comment: AMP (Amphetamine): 500ng/mL, BAR (Barbituates): 200 ng/mL, BZO (Benzodiazepines): 150 ng/mL, BUP (Buprenorphine): 10 ng/mL, ISELA (Cocaine): 150 ng/mL, mAMP (Methamphetamine): 500 ng/mL, MTD (Methadone): 200 ng/mL, OPI (Opiates): 100 ng/mL, OXY (Oxycodone): 100 ng/mL, PCP (Phencyclidine): 25 ng/mL, PPX (Propoxyphene): 300 ng/mL, THC (Cannabinoids): 50 ng/mL, TCA (Trycyclic Antidepressants): 300 ng/mL Performed By: #### CATALINA NEWTONR ####[facility] Vtypekewmo[address] [place], [place] [address]Dr. Abhinav Laguna DRUG CUT HEADER DRUG CLASS TEST SYST EM CUT-OFF CONCENTRATIONS ARE FOLLOWS: Normal [facility] Comment on above: Performed By: #### CATALINA NEWTONR ####[facility] Ifusghkjfy[address] [place], [place] [address]Dr. Abhinav Laguna mAMP Positive Abnormal NEGATIVE [facility] Comment on above: Performed By: #### CATALINA NEWTONR ####[facility] [address] [place], [place] [address]Dr. Abhinav Laguna MTD Negative Normal NEGATIVE [facility] Comment on above: Performed By: #### D HOA, ERUR ####[facility] [address]vcrxc[address] [place] [address]Dr. Mirandagallo Laguna OPI Negative Normal NEGATIVE [facility] Comment on above: Performed By: #### D HOA, ERUR ####[facility] [address]sw[address]kv[address] [place] [address]Dr. Abhinav Laguna OXY Negative Normal NEGATIVE [facility] Comment on above: Performed By: #### Marco Antonio CAMARA, ERUR ####[facility] Refdvqsddm77[address] [place] [address]Dr. Abhinav aLguna PCP Negative Normal NEGATIVE [facility] Comment on above: Performed By: #### Marco Antonio CAMARA, ERUR ####[facility] Hbmjozugdb[address] [place] [address]Dr. Abhinav Laguna PPX Negative Normal NEGATIVE [facility] Comment on above: Performed By: #### Marco Antonio CAMARA, ERUR ####[facility] F[address]qwwavib[address] [place] [address]Dr. Abhinav Laguna TCA Negative Normal NEGATIVE [facility] Comment on above: Performed By: #### Marco Antonio CAMARA, ERUR ####[facility] Ceimgfddmz[address] [place] [address]Dr. Abhinav Laguna THC Positive Abnormal NEGATIVE [facility] Comment on above: Performed By: #### Marco Antonio CAMARA, ERUR ####[facility] Phvthfuzlu035[address] [place] [address]Dr. Abhinav Laguna ER URINE PROFILEon 3 Bilirubin Ql (U) Negative Normal NEGATIVE [facility] Comment on above: Performed By: #### Marco Antonio CAMARA, ERUR ####[facility] Newlnphdxc75[address] [place] [address]Dr. Abhinav Laguna Clarity (U) CLEAR Normal CLEAR [facility] Comment on above: Performed By: #### Marco Antonio CAMARA, ERUR ####[facility] Jdsgfothbr0[address] [place] [address]Dr. Abhinav Laguna Color (U) LT. YELLOW Normal YELLOW [facility] Comment on above: Performed By: #### Marco Antonio CAMARA, ERUR ####[facility] P[address]rbzqbtv[address] [place] [address]Dr. Abhinav ARANDA A micrscopic examina tion will be performed if indicated. Normal [facility] Comment on above: Performed By: #### Marco Antonio CAMARA, ERUR ####[facility] L[address]qzoayra97[address] [place] [address]Dr. Abhinav Laguna Glucose Ql (U) >1000 Abnormal NEGATIVE [facility] Comment on above: Performed By: #### Marco Antonio CAMARA, ERUR ####[facility] Dizssnlfkw[address] [place], [place] [address]Dr. Abhinav Laguna Hemoglobin Ql (U) Negative Normal NEGATIVE [facility] Comment on above: Performed By: #### Marco Antonio CAMARA, ERUR ####[facility] Wusfkmdhno[address] [place], [place] [address]Dr. Abhinav Laguna Ketones Ql (U) Negative Normal NEGATIVE [facility] Comment on above: Performed By: #### Marco Antonio CAMARA, ERUR ####[facility] Qfuipkbmee[address] [place], [place] [address]Dr. Abhinav Laguna LEUKOCYTES Negative Normal NEGATIVE [facility] Comment on above: Performed By: #### Marco Antonio CAMARA, ERUR ####[facility] Bdlyqsxaud2[address] [place], [place] [address]Dr. Abhinav Laguna Nitrite Ql (U) Negative Normal NEGATIVE [facility] Comment on above: Performed By: #### Marco Antonio CAMARA, ERUR ####[facility] [address]dtjt[address] [place] [address]Dr. Abhinav Laguna pH (U) 6.5 [pH] Normal 5-9 [facility] Comment on above: Performed By: #### Marco Antonio CAMARA, ERUR ####[facility] Jccnkjmdzw[address] [place] [address]Dr. Abhinav Laguna SPEC GRAVITY <=1.005 Abnormal 1.005-<=1.0 25 [facility] Comment on above: Performed By: #### D HOA, ERUR ####[facility] Iinhtogzmj[address] [place] [address]Dr. Abhinav Laguna UA PROTEIN Negative Normal NEGATIVE/ TRACE [facility] Comment on above: Performed By: #### D HOA, ERUR ####[facility] Uvnelypybb[address] [place] [address]Dr. Abhinav Laguna UR MICRO IND NOT INDICATED Normal [facility] Comment on above: Performed By: #### D HOA, ERUR ####[facility] Qzkodzuetn[address] [place] [address]Dr. Abhinav Laguna Urobilinogen Qn (U) 0.2 {Marshall'U}/dL Normal 0.2 - 1. 0 [facility] Comment on above: Performed By: #### D HOA, ERUR ####[facility] Bcisoyruqm[address] [place] [address]Dr. Abhinav Laguna ETHANOL (BLD ALC)on 10-24-19 23 ALC NOTE NOTE: 80 mg/dl is th e legal limit for a blood alcohol level Normal [facility] Comment on above: Performed By: #### T PAM, CMP, SALYC, HSTROPN, ETH, ACET ####[facility] Nowxtrmjqb[address] [place] [address]Dr. Abhinav Laguna Ethanol [Mass/Vol] mg/dL Normal [facility] Comment on above: Performed By: #### T PAM, CMP, SALYC, HSTROPN, ETH, ACET ####[facility] Lndgtrxgup[address] [place] [address]Dr. Abhinav Laguna LACTATE/LACTIC ACIDon 2022 Lactate [Moles/Vol] 2.8 mmol/L Critically high 0.4-2.0 [facility] Comment on above: Performed By: #### L ACT ####[facility] Hrcpkprauh[address] [place], [place] [address]Dr. Abhinav Laguna POINT OF CARE GLUCOSEon 03-0 POCGLUC >600 Critically high 74-106 [facility] Comment on above: Result Comment: Resu lt Not Confirmed Performed By: #### P OCGLUC ####[facility] O[address]iznaqsap[address] [place] [address]Dr. Abhinav Laguna PROF 14(COMP METB)on 023 Albumin [Mass/Vol] 3.3 g/dL Critically low 3.4-5.0 [facility] Comment on above: Performed By: #### T SH, CMP, SALYC, HSTROPN, ETH, ACET ####[facility] Znmiyjztvq[address] [place] [address]Dr. Abhinav Laguna Albumin/Globulin [Mass ratio] 0.8 {ratio} Normal [facility] Comment on above: Performed By: #### T SH, CMP, SALYC, HSTROPN, ETH, ACET ####[facility] Nfyvexkyql24[address] [place] [address]Dr. Abhinav Laguna ALP [Catalytic activity/Vol] 529 U/L Critically high 46-116 [facility] Comment on above: Performed By: #### T SH, CMP, SALYC, HSTROPN, ETH, ACET ####[facility] Rwztwdpofq[address] [place] [address]Dr. Abhinav Laguna ALT [Catalytic activity/Vol] 35 U/L Normal 16-63 [facility] Comment on above: Performed By: #### T SH, CMP, SALYC, HSTROPN, ETH, ACET ####[facility] Boqiyvvlbe[address] [place] [address]Dr. Abhinav Laguna Anion gap [Moles/Vol] 5.9 mmol/L Normal [facility] Comment on above: Performed By: #### T SH, CMP, SALYC, HSTROPN, ETH, ACET ####[facility] Gprblvqdro[address] [place] [address]Dr. Abhinav Laguna AST [Catalytic activity/Vol] 12 U/L Critically low 15-37 [facility] Comment on above: Performed By: #### T SH, CMP, SALYC, HSTROPN, ETH, ACET ####[facility] Tdvaymoppt[address] [place] [address]Dr. Abhinav Laguna Bilirubin [Mass/Vol] 0.3 mg/dL Normal 0.2-1.0 [facility] Comment on above: Performed By: #### T SH, CMP, SALYC, HSTROPN, ETH, ACET ####[facility] Xyneihtazz[address] [place] [address]Dr. Abhinav Laguna Calcium [Mass/Vol] 10.6 mg/dL Critically high 8.5-10.1 [facility] Comment on above: Performed By: #### T SH, CMP, SALYC, HSTROPN, ETH, ACET ####[facility] Vlrboejbgy[address] [place] [address]Dr. Abhinav Laguna Chloride [Moles/Vol] 93 mmol/L Critically low 98-107 [facility] Comment on above: Performed By: #### T SH, CMP, SALYC, HSTROPN, ETH, ACET ####[facility] Iejyduxcwi47[address] [place] [address]Dr. Abhinav Laguna CO2 [Moles/Vol] 31.5 mmol/L Normal 21.0-32.0 [facility] Comment on above: Performed By: #### T SH, CMP, SALYC, HSTROPN, ETH, ACET ####[facility] O[address]pzeahje[address] [place] [address]Dr. Abhinav Laguna Creatinine [Mass/Vol] 1.03 mg/dL Normal 0.70-1.30 [facility] Comment on above: Performed By: #### T SH, CMP, SALYC, HSTROPN, ETH, ACET ####[facility] Ymspdmpfdm[address] [place] [address]Dr. Abhinav Laguna EGFR-AF GEORGIAN >60 Normal >=60 [facility] Comment on above: Performed By: #### T SH, CMP, SALYC, HSTROPN, ETH, ACET ####[facility] Ijjhhdqazo380[address] [place] [address]Dr. Abhinav Laguna EGFR-NON AF GEORGIAN >60 Normal >=60 [facility] Comment on above: Performed By: #### T SH, CMP, SALYC, HSTROPN, ETH, ACET ####[facility] Pwvtmljjxr[address] [place] [address]Dr. Abhinav Laguna Globulin (S) [Mass/Vol] 3.9 g/dL Normal [facility] Comment on above: Performed By: #### T SH, CMP, SALYC, HSTROPN, ETH, ACET ####[facility] Rqnogcjthz[address] [place] [address]Dr. Abhinav Laguna Glucose [Mass/Vol] 738 mg/dL Critically high 74-106 [facility] Comment on above: Performed By: #### T SH, CMP, SALYC, HSTROPN, ETH, ACET ####[facility] Wemfgdsjsq[address] [place] [address]Dr. Abhinav Laguna Potassium [Moles/Vol] 4.4 mmol/L Normal 3.5-5.1 [facility] Comment on above: Performed By: #### T SH, CMP, SALYC, HSTROPN, ETH, ACET ####[facility] Ckn[address]ypsco[address] [place] [address]Dr. Abhinav Laguna Protein [Mass/Vol] 7.2 g/dL Normal 6.4-8.2 [facility] Comment on above: Performed By: #### T SH, CMP, SALYC, HSTROPN, ETH, ACET ####[facility] Qnytzendzi[address] [place] [address]Dr. Abhinav Laguna Sodium [Moles/Vol] 126 mmol/L Critically low 136-145 [facility] Comment on above: Performed By: #### T SH, CMP, SALYC, HSTROPN, ETH, ACET ####[facility] Rsfnqwtzgh7[address] [place] [address]Dr. Abhinav Laguna Urea nitrogen [Mass/Vol] 21.0 mg/dL Critically high 7.0-18.0 [facility] Comment on above: Performed By: #### T SH, CMP, SALYC, HSTROPN, ETH, ACET ####[facility] Ggkyrhheyd[address] [place] [address]Dr. Abhinav Laguna Urea nitrogen/Creatinine [Mass ratio] 20.4 mg/mg Normal [facility] Comment on above: Performed By: #### T SH, CMP, SALYC, HSTROPN, ETH, ACET ####[facility] Saasqjaagd[address] [place] [address]Dr. Abhinav Laguna PROTIMEon 10-23-2022 INR Coag (PPP) [Relative time] 0.95 {INR} Normal [facility] Comment on above: Performed By: #### P T, PTT ####[facility] Gzuzgklehm[address] [place] [address]Dr. Abhinav Laguna INR GUIDELINES SEE BELOW Normal [facility] Comment on above: Result Comment: FABRICE RED INR: 2.0 - 3.0 CONDITIONS NOT LISTED BELOW 2.5 - 3.5 FOR PROSTHETIC HEART VALVE REPLACEMENT 2.5 - 3.5 RECURRENT THROMBOSIS Performed By: #### P T, PTT ####[facility] Soomkcobqd[address] [place], [place] [address]Dr. Abhinav Laguna PT Coag (PPP) [Time] 10.1 s Normal 9.0-11.6 [facility] Comment on above: Performed By: #### P T, PTT ####[facility] Nuopcykysm[address] [place] [address]Dr. Mirandagallo Laguna PTTon 10-23-2022 aPTT Coag (Bld) [Time] 27.7 s Normal 22.3-36.2 [facility] Comment on above: Performed By: #### P T, PTT ####[facility] Deudetcduv[address] [place], [place] [address]Dr. Abhinav Laguna SALICYLATEon 10-23-2022 SALICYLATE <2.8 Normal <=19.9 [facility] Comment on above: Performed By: #### T SH, CMP, SALYC, HSTROPN, ETH, ACET ####[facility] Xskgipihvj[address] [place], [place] [address]Dr. Abhinav Jase TROPONIN, HIGH SENSITIVITYon 10-23-2022 HSTROP 5.9 pg/mL Normal 4.0-76.1 [facility] Comment on above: Result Comment: CUT- OFF POINTS HAVE BEEN ESTABLISHED BASED ON THE FOURTH UNIVERSAL DEFINITIONS OF MYOCARDIALINFARCTION. THE UPPER REFERENCE LIMIT (URL) OF TROPONIN, DEFINED THE 99TH PERCENTILE OFcTnI DISTRIBUTION IN A REFERENCE POPULATION, HAS BEEN CONFIRMED THE DECISION THRESHOLDFOR MS DIAGNOSIS. Performed By: #### T SH, CMP, SALYC, HSTROPN, ETH, ACET ####[facility] W[address]hnurppm[address] [place] [address]Dr. Abhinav Laguna TSHon 10-23-2022 TSH 1.612 uIU/mL Normal 0.358-3.740 [facility] Comment on above: Performed By: #### T SH, CMP, SALYC, HSTROPN, ETH, ACET ####[facility] Iinsbafhum64[address] [place] [address]Dr. Abhinav Laguna XR CHEST 1 Von 10-23-2022 XR CHEST 1 V Normal [facility] CBC AUTO DIFFon 08-22-2022 BASO # 0.0 103/ul Normal 0.0-0.1 [facility] Comment on above: Performed By: #### C BC ####[facility] Dduonyjtrk42[address] [place] [address]Dr. Abhinav Laguna Basophils/100 WBC (Bld) 0.4 % Normal 0.2-2.0 [facility] Comment on above: Performed By: #### C BC ####[facility] Meiqjxccyg[address] [place] [address]Dr. Abhinav Laguna EO # 0.2 103/ul Normal 0.0-0.7 [facility] Comment on above: Performed By: #### C BC ####[facility] Qlujlasejf5[address] [place] [address]Dr. Abhinav Laguna Eosinophils/100 WBC (Bld) 2.8 % Normal 0.9-7.0 [facility] Comment on above: Performed By: #### C BC ####[facility] Ifjdjesore5633 [place] [address]Dr. Abhinav Lagnua Erythrocyte distribution width (RBC) [Ratio] 12.8 % Normal 11.0-15.0 [facility] Comment on above: Performed By: #### C BC ####[facility] Ppyjltwojz35[address] [place] [address]Dr. Abhinav Laguna Hematocrit (Bld) [Volume fraction] 37.2 % Critically low 42.0-54.0 [facility] Comment on above: Performed By: #### C BC ####[facility] Yrahsvddae15[address] [place] [address]Dr. Abhinav Laguna Hemoglobin (Bld) [Mass/Vol] 13.3 g/dL Critically low 14.0-18.0 [facility] Comment on above: Performed By: #### C BC ####[facility] Ocacoaiudt[address] [place] [address]Dr. Mirandagallo Laguna IG # 0.03 10e3/ul Normal 0.00-0.03 [facility] Comment on above: Performed By: #### C BC ####[facility] Ibscczaoqh[address] [place], [place] [address]Dr. Abhinav Laguna IG % 0.4 % Normal 0.0-0.5 [facility] Comment on above: Performed By: #### C BC ####[facility] Uoupieohbi[address] [place] [address]Dr. Mirandagallo Laguna LYMPH # 1.9 103/ul Normal 1.2-3.8 [facility] Comment on above: Performed By: #### C BC ####[facility] Losbbezbpl0162 [place] [address]DrNohemi Mirandagallo Laguna Lymphocytes/100 WBC (Bld) 23.8 % Normal 20.5-60.0 [facility] Comment on above: Performed By: #### C BC ####[facility] Nepglvmybf7656 [place] [address]DrNohemi Mirandagallo Laguna MANUAL DIFF REQ NO Normal [facility] Comment on above: Performed By: #### C BC ####[facility] Jucxltdjor[address] [place], [place] [address]DrNohemi Abhinav Jase MCH (RBC) [Entitic mass] 30.2 pg Normal 25.9-34.0 [facility] Comment on above: Performed By: #### C BC ####[facility] Fvotrisbhr4[address] [place], [place] [address]Dr. Abhinav Jase MCHC (RBC) [Mass/Vol] 35.8 g/dL Critically high 29.9-35.2 [facility] Comment on above: Performed By: #### C BC ####[facility] P[address]jjudpoj25[address] [place] [id number]. Abhinav Jase MCV (RBC) [Entitic vol] 84.5 fL Normal 80.0-94.0 [facility] Comment on above: Performed By: #### C BC ####[facility] Nrxsfnvmmr4719 [place] [address]Dr. Mirandagallo Jase MONO # 0.7 103/ul Normal 0.3-0.8 [facility] Comment on above: Performed By: #### C BC ####[facility] Xhfwskosaz3037 [place] [address]Dr. Abhinav Laguna Monocytes/100 WBC (Bld) 8.0 % Normal 1.7-12.0 [facility] Comment on above: Performed By: #### C BC ####[facility] Pruiujqxfi[address] [place], [place] [address]Dr. Mirandagallo Jase NEUT # 5.2 103/ul Normal 1.4-6.5 [facility] Comment on above: Performed By: #### C BC ####[facility] Lafvqpdhvm0560 [place] [address]Dr. Abhinav Laguna Neutrophils/100 WBC (Bld) 64.6 % Normal 43.0-75.0 [facility] Comment on above: Performed By: #### C BC ####[facility] Jnbidcvovg9519 [place] [address]Dr. Abhinav Jase Platelet mean volume (Bld) [Entitic vol] 11.6 fL Normal 9.5-13.5 [facility] Comment on above: Performed By: #### C BC ####[facility] Tmouuwxukb6621 [place] [address]Dr. Abhinav Laguna PLT 175 103/ul Normal 150-450 [facility] Comment on above: Performed By: #### C BC ####[facility] Mpjxigekdb8311 [place] [address]Dr. Abhinav Laguna RBC 4.40 106/ul Critically low 4.70-6.10 [facility] Comment on above: Performed By: #### C BC ####[facility] Nmgwiixvce8879 [place] [address]Dr. Abhinav Laguna WBC 8.1 103/ul Normal 4.0-11.0 [facility] Comment on above: Performed By: #### C BC ####[facility] Gngtyngrex9423 [place] [address]Dr. Abhinav Laguna POINT OF CARE GLUCOSEon Glucose [Mass/Vol] 258 mg/dL Critically high 74-106 [facility] Comment on above: Performed By: #### P OCGLUC ####[facility] Pehygzcdif84[address] [place], [place] [address]Dr. Abhinav Laguna Glucose [Mass/Vol] 177 mg/dL Critically high 74-106 [facility] Comment on above: Performed By: #### P OCGLUC ####[facility] Crmojuqbux94[address] [place], [place] [address]Dr. Abhinav Jase PROF CHEM 8 (BAS METB)on Anion gap [Moles/Vol] 9.3 mmol/L Normal [facility] Comment on above: Performed By: #### B MP ####[facility] Jjeipkqjgl9306 [place] [address]Dr. Abhinav Jase Calcium [Mass/Vol] 8.6 mg/dL Normal 8.5-10.1 [facility] Comment on above: Performed By: #### B MP ####[facility] Qnisoixjpr1926 [place] [address]Dr. Abhinav Jase Chloride [Moles/Vol] 107 mmol/L Normal 98-107 [facility] Comment on above: Performed By: #### B MP ####[facility] Ujlsddbxnk5260 [place] [address]Dr. Abhinav Laguna CO2 [Moles/Vol] 22.7 mmol/L Normal 21.0-32.0 [facility] Comment on above: Performed By: #### B MP ####[facility] Cmbxmumdjb9221 [place] [address]Dr. Abhinav Laguna Creatinine [Mass/Vol] 0.79 mg/dL Normal 0.70-1.30 [facility] Comment on above: Performed By: #### B MP ####[facility] Plkvecgbvn1989 [place] [address]Dr. Abhinav Laguna EGFR-AF GEORGIAN >60 Normal >=60 [facility] Comment on above: Performed By: #### B MP ####[facility] Jkvxnpwlge[address] [place], [place] [address]Dr. Abhinav Laguna EGFR-NON AF GEORGIAN >60 Normal >=60 [facility] Comment on above: Performed By: #### B MP ####[facility] Orzjbxqijn42[address] [place], [place] [address]Dr. Abhinav Laguna Glucose [Mass/Vol] 159 mg/dL Critically high 74-106 [facility] Comment on above: Performed By: #### B MP ####[facility] Apwrlbknxj56[address] [place], [place] [address]Dr. Abhinav Laguna Potassium [Moles/Vol] 4.0 mmol/L Normal 3.5-5.1 [facility] Comment on above: Performed By: #### B MP ####[facility] Jxyecetwuv[address] [place], [place] [address]Dr. Abhinav Laguna Sodium [Moles/Vol] 135 mmol/L Critically low 136-145 [facility] Comment on above: Performed By: #### B MP ####[facility] Nkvfxaqmuo79[address] [place], [place] [address]Dr. Abhinav Laguna Urea nitrogen [Mass/Vol] 29.0 mg/dL Critically high 7.0-18.0 [facility] Comment on above: Performed By: #### B MP ####[facility] Byeqeirwvq[address] [place], [place] [address]Dr. Abhinav Laguna Urea nitrogen/Creatinine [Mass ratio] 36.7 mg/mg Normal [facility] Comment on above: Performed By: #### B MP ####[facility] [address] [place], [place] [address]Dr. Abhinav Laguna AMMONIAon 08-21-2022 Ammonia (P) [Moles/Vol] 12 umol/L Normal [facility] Comment on above: Performed By: #### A MM ####[facility] Azuodvohzx9[address] [place], [place] [address]Dr. Abhinav Laguna BLOOD GASES BTYon 08-21-2022 02 MODE NASAL CANNULA Normal [facility] Comment on above: Performed By: #### A BG ####[facility] Khaacbqrde29[address] [place], [place] [address]Dr. Abhinav Laguna ALLENS TEST Positive [facility] Comment on above: Performed By: #### A BG ####[facility] Hzhqipmury[address] [place], [place] [address]Dr. Abhinav Laguna Base excess Calc (Bld) [Moles/Vol] -6.2000 mmol/L Critically low -2.0-2.0 [facility] Comment on above: Performed By: #### A BG ####[facility] Fxpoquuebm2[address] [place], [place] [address]Dr. Abhinav Laguna BIPAP PRESSURE Normal [facility] Comment on above: Performed By: #### A BG ####[facility] Aallyqdzyl[address] [place], [place] [address]Dr. Abhinav Laguna CPAP Normal [facility] Comment on above: Performed By: #### A BG ####[facility] Imcqqzyfyz1823[address] [place], [place] [address]Dr. Abhinav Laguna FIO2 Normal [facility] Comment on above: Performed By: #### A BG ####[facility] Cwjkkralej[address] [place], [place] [address]Dr. Abhinav Laguna HCO3 (Bld) [Moles/Vol] 19.9 mmol/L Critically low 22.0-26. 0 [facility] Comment on above: Performed By: #### A BG ####[facility] Vdqpzacuhg[address] [place], [place] [address]Dr. Abhinav Laguna LPM 2 Normal [facility] Comment on above: Performed By: #### A BG ####[facility] Aezixlibai1541 [place] [address]Dr. Abhinav Laguna MINUTE VOLUME Normal [facility] Comment on above: Performed By: #### A BG ####[facility] Wforecevpw[address] [place], [place] [address]Dr. Abhinav Laguna Oxygen (Bld) [Partial pressure] 106.0 mm[Hg] Critically high 80.0-100.0 [facility] Comment on above: Performed By: #### A BG ####[facility] Simmaqhcbi20[address] [place], [place] [address]Dr. Abhinav Laguna Oxygen saturation in Blood 98.3 % Normal 95.0-100.0 [facility] Comment on above: Performed By: #### A BG ####[facility] Ogppyjxjok26[address] [place], [place] [address]Dr. Abhinav Laguna PCO2 38.6 mmHg Normal 35.0-45.0 [facility] Comment on above: Performed By: #### A BG ####[facility] Gqogwxkpiu9[address] [place], [place] [address]Dr. Abhinav Laguna PEEP [facility] Comment on above: Performed By: #### A BG ####[facility] Nqswpdrhcj[address] [place], [place] [address]Dr. Abhinav Laguna pH (Bld) 7.320 [pH] Critically low 7.350-7.450 [facility] Comment on above: Performed By: #### A BG ####[facility] Mhfauyvcof[address] [place], [place] [address]Dr. Abhinav Laguna PIP Normal [facility] Comment on above: Performed By: #### A BG ####[facility] Cvylxhwbmx[address] [place], [place] [address]Dr. Abhinav Laguna PS Normal [facility] Comment on above: Performed By: #### A BG ####[facility] Qwurbqkxtz6[address] [place], [place] [address]Dr. Abhinav Laguna PUNCTURE SITE RR Normal [facility] Comment on above: Performed By: #### A BG ####[facility] Pqoxxygidd[address] [place], [place] [address]Dr. Abhinav Laguna RATE Normal [facility] Comment on above: Performed By: #### A BG ####[facility] Mmuoukmnpr36[address] [place] [address]Dr. Abhinav Laguna VENT MODE Normal [facility] Comment on above: Performed By: #### A BG ####[facility] Mnetyvjttr5659 [place] [address]Dr. Abhinav Laguna VT Normal [facility] Comment on above: Performed By: #### A BG ####[facility] Ksabaffvbb7[address] [place] [address]Dr. Mirandagallo Laguna BNPon 08-21-2022 Natriuretic peptide B (Bld) [Mass/Vol] 69.0 pg/mL Normal <=900.0 [facility] Comment on above: Performed By: #### B IV TECHNICIAN, CMP, TSH, CMADM ####[facility] Ouwdsubfwo58[address] [place] [address]Dr. Abhinav Laguna CARDIAC GILMER ADMITon 023 CK [Catalytic activity/Vol] 91 U/L Normal 39-308 [facility] Comment on above: Performed By: #### B IV TECHNICIAN, CMP, TSH, CMADM ####[facility] Tbnrczmimx7546 [place] [address]Dr. Abhinav Laguna CK.MB [Mass/Vol] 4.08 ng/mL Critically high <=3.60 [facility] Comment on above: Performed By: #### B IV TECHNICIAN, CMP, TSH, CMADM ####[facility] Amfyefljai4714 [place] [address]Dr. Abhinav Jase HSTROP 10.8 pg/mL Normal 4.0-76.1 [facility] Comment on above: Result Comment: CUT- OFF POINTS HAVE BEEN ESTABLISHED BASED ON THE FOURTH UNIVERSAL DEFINITIONS OF MYOCARDIALINFARCTION. THE UPPER REFERENCE LIMIT (URL) OF TROPONIN, DEFINED THE 99TH PERCENTILE OFcTnI DISTRIBUTION IN A REFERENCE POPULATION, HAS BEEN CONFIRMED THE DECISION THRESHOLDFOR MS DIAGNOSIS. Performed By: #### B IV TECHNICIAN, CMP, TSH, CMADM ####[facility] Lkkpfvjiee4752 [place] [address]Dr. Abhinav Laguna RAINER 342 ng/mL Critically high 16-96 [facility] Comment on above: Performed By: #### B IV TECHNICIAN, CMP, TSH, CMADM ####[facility] Hkgzyavush0804 [place] [id number]. Abhinav Laguna CBC AUTO DIFFon 08-21-2022 BASO # 0.1 103/ul Normal 0.0-0.1 [facility] Comment on above: Performed By: #### C BC ####[facility] Tkvrwayfan[address] [place], [place] [address]Dr. Abhinav Laguna Basophils/100 WBC (Bld) 0.6 % Normal 0.2-2.0 [facility] Comment on above: Performed By: #### C BC ####[facility] Carrhcfzaz[address] [place], [place] [address]Dr. Abhinav Laguna EO # 0.1 103/ul Normal 0.0-0.7 [facility] Comment on above: Performed By: #### C BC ####[facility] Ppelndfwpv[address] [place], [place] [address]Dr. Abhinav Laguna Eosinophils/100 WBC (Bld) 1.5 % Normal 0.9-7.0 [facility] Comment on above: Performed By: #### C BC ####[facility] Bnhbwybeuu5[address] [place], [place] [address]Dr. Abhinav Laguna Erythrocyte distribution width (RBC) [Ratio] 12.8 % Normal 11.0-15.0 [facility] Comment on above: Performed By: #### C BC ####[facility] [address]myudcetud[address] [place], [place] [address]Dr. Abhinav Laguna Hematocrit (Bld) [Volume fraction] 42.1 % Normal 42.0-54.0 [facility] Comment on above: Performed By: #### C BC ####[facility] Gnssighbav[address] [place], [place] [address]Dr. Abhinav Laguna Hemoglobin (Bld) [Mass/Vol] 15.4 g/dL Normal 14.0-18.0 [facility] Comment on above: Performed By: #### C BC ####[facility] Dnxnbyprva96[address] [place] [id number]. Abhinav Laguna IG # 0.02 10e3/ul Normal 0.00-0.03 [facility] Comment on above: Performed By: #### C BC ####[facility] Qdhdpiqrbg0398 [place] [address]Dr. Abhinav Laguna IG % 0.2 % Normal 0.0-0.5 [facility] Comment on above: Performed By: #### C BC ####[facility] Tzylnwzbti6364 [place] [address]Dr. Abhinav Jase LYMPH # 2.5 103/ul Normal 1.2-3.8 [facility] Comment on above: Performed By: #### C BC ####[facility] Xfmvvhwmou7085 [place] [address]Dr. Abhinav Laguna Lymphocytes/100 WBC (Bld) 28.3 % Normal 20.5-60.0 [facility] Comment on above: Performed By: #### C BC ####[facility] Fqxngpwlyx9243 [place] [address]Dr. Mirandagallo Laguna MANUAL DIFF REQ NO Normal [facility] Comment on above: Performed By: #### C BC ####[facility] Flsimqwjad8419 [place] [address]Dr. Abhinav Laguna MCH (RBC) [Entitic mass] 30.5 pg Normal 25.9-34.0 [facility] Comment on above: Performed By: #### C BC ####[facility] Uszeftflxp7420 [place] [address]Dr. Abhinav Laguna MCHC (RBC) [Mass/Vol] 36.6 g/dL Critically high 29.9-35.2 [facility] Comment on above: Performed By: #### C BC ####[facility] Nxljvelfqs7083 [place] [address]Dr. Abhinav Laguna MCV (RBC) [Entitic vol] 83.4 fL Normal 80.0-94.0 [facility] Comment on above: Performed By: #### C BC ####[facility] Xdfodbzoqj5752 [place] [id number]. Abhinav Laguna MONO # 0.7 103/ul Normal 0.3-0.8 [facility] Comment on above: Performed By: #### C BC ####[facility] [address] [place] [address]Dr. Abhinav Laguna Monocytes/100 WBC (Bld) 7.3 % Normal 1.7-12.0 [facility] Comment on above: Performed By: #### C BC ####[facility] Hluefirswg[address] [place], [place] [address]Dr. Abhinav Laguna NEUT # 5.5 103/ul Normal 1.4-6.5 [facility] Comment on above: Performed By: #### C BC ####[facility] Sxbmycikfy7[address] [place], [place] [address]Dr. Abhinav Laguna Neutrophils/100 WBC (Bld) 62.1 % Normal 43.0-75.0 [facility] Comment on above: Performed By: #### C BC ####[facility] Zpuntkcbls[address] [place], [place] [address]Dr. Abhinav Laguna Platelet mean volume (Bld) [Entitic vol] 11.6 fL Normal 9.5-13.5 [facility] Comment on above: Performed By: #### C BC ####[facility] Cgkzkcyqrj[address] [place], [place] [address]Dr. Abhinav Laguna PLT 195 103/ul Normal 150-450 [facility] Comment on above: Performed By: #### C BC ####[facility] [address] [place], [place] [id number]. Abhinav Laguna RBC 5.05 106/ul Normal 4.70-6.10 [facility] Comment on above: Performed By: #### C BC ####[facility] Q[address]tu[address] [place], [place] [address]Dr. Abhinav Laguna WBC 8.9 103/ul Normal 4.0-11.0 [facility] Comment on above: Performed By: #### C BC ####[facility] Upqnmiphyd[address] [place] [address]Dr. Abhinav Laguna CT CSPINE WO CONon 3 CT CSPINE WO CON Normal [facility] CT STROKE HEAD WOon 08-21-[address] STROKE HEAD WO Normal [facility] Covid-19 PCR ([facility])on SARS-CoV-2 (COVID-19) RNA EVERT+probe Ql (Unsp spec) Not detected Normal NOT DETECTED [facility] Comment on above: Result Comment: When diagnostic testing is negative, the possibility of a false negative should be considered inthe context of a patient's recent exposures and the presence of clinical signs and symptomsconsistent with SARS-CoV-2.This test is not yet approved or cleared by the [place] FDA. When there are no FDA-approved or cleared tests available, and other criteria are met, FDA can make tests available under an emergency access mechanism called an Emergency Use Authorization (EUA). The EUA for this test is supported by the [place] of Health and Human Service's declaration that circumstances exist to justify the emergency use of in vitro diagnostics for the detection and/or diagnosis of the virus that causes COVID-19. This EUA will remain in effect for the duration of the COVID-19 declaration justifying emergency of IVDs, unless it is terminated or revoked by the FDA (after which the test may no longer be used). Performed By: #### C VDTBH ####[facility] [address]tmxsxeosz[address] [place] [id number]. Abhinav Laguna DRUG SCREEN RAPID (URINE)on 08-21-2022 AMP Positive Abnormal NEGATIVE [facility] Comment on above: Performed By: #### E PIPOR DRUGRPD ####[facility] Szjiwemywf[address] [place] [id number]. Abhinav Laguna BAR Negative Normal NEGATIVE [facility] Comment on above: Performed By: #### E RUR DRUGRPD ####[facility] Drebaccajv[address] [place] [id number]. Abhinav Laguna BUP Negative Normal NEGATIVE [facility] Comment on above: Performed By: #### E RUR, DRUGRPD ####[facility] Ogcyasufkd4[address] [place] [id number]. Abhinav Laguna BZO Negative Normal NEGATIVE [facility] Comment on above: Performed By: #### E RUR, DRUGRPD ####[facility] Jqbxmnvfur7[address] [place], [place] [address]Dr. Abhinav Laguna ISELA Negative Normal NEGATIVE [facility] Comment on above: Performed By: #### E RUR, DRUGRPD ####[facility] Yhwyvzbzwo[address] [place], [place] [address]Dr. Abhinav Laguna CUT-OFFS SEE BELOW Normal [facility] Comment on above: Result Comment: AMP (Amphetamine): 500ng/mL, BAR (Barbituates): 200 ng/mL, BZO (Benzodiazepines): 150 ng/mL, BUP (Buprenorphine): 10 ng/mL, ISELA (Cocaine): 150 ng/mL, mAMP (Methamphetamine): 500 ng/mL, MTD (Methadone): 200 ng/mL, OPI (Opiates): 100 ng/mL, OXY (Oxycodone): 100 ng/mL, PCP (Phencyclidine): 25 ng/mL, PPX (Propoxyphene): 300 ng/mL, THC (Cannabinoids): 50 ng/mL, TCA (Trycyclic Antidepressants): 300 ng/mL Performed By: #### Lon RUR, DRUGRPD ####[facility] Jrhxgtvpab9[address] [place], [place] [address]Dr. Abhinav Laguna DRUG CUT HEADER DRUG CLASS TEST SYST EM CUT-OFF CONCENTRATIONS ARE FOLLOWS: Normal [facility] Comment on above: Performed By: #### Lon RUR, DRUGRPD ####[facility] Rlderlssvr[address] [place], [place] [address]Dr. Abhinav Laguna mAMP Positive Abnormal NEGATIVE [facility] Comment on above: Performed By: #### E RUR, DRUGRPD ####[facility] Ffzytfobwa28[address] [place], [place] [address]Dr. Abhinav Laguna MTD Negative Normal NEGATIVE [facility] Comment on above: Performed By: #### E RUR, DRUGRPD ####[facility] Masudifybb15[address] [place], [place] [address]Dr. Abhinav Laguna OPI Negative Normal NEGATIVE [facility] Comment on above: Performed By: #### E RUR, DRUGRPD ####[facility] Pj[address]dfjv[address] [place] [address]Dr. Yigallo Laguna OXY Negative Normal NEGATIVE [facility] Comment on above: Performed By: #### E RUR, DRUGRPD ####[facility] Lnvinebzwx[address] [place] [address]Dr. Abhinav Laguna PCP Negative Normal NEGATIVE [facility] Comment on above: Performed By: #### E RUR, DRUGRPD ####[facility] Yucquljvxb[address] [place], [place] [address]Dr. Abhinav Laguna PPX Negative Normal NEGATIVE [facility] Comment on above: Performed By: #### E RUR, DRUGRPD ####[facility] Tggdlseeld[address] [place], [place] [address]Dr. Abhinav Laguna TCA Negative Normal NEGATIVE [facility] Comment on above: Performed By: #### E RUR, DRUGRPD ####[facility] Awgobopzta66[address] [place], [place] [address]Dr. Abhinav Laguna THC Positive Abnormal NEGATIVE [facility] Comment on above: Performed By: #### E RUR, DRUGRPD ####[facility] Dbywajnugm[address] [place], [place] [address]Dr. Abhinav Laguna ER URINE PROFILEon 3 Bilirubin Ql (U) Negative Normal NEGATIVE [facility] Comment on above: Performed By: #### E RUR, DRUGRPD ####[facility] Jkrbcpnxiw7[address] [place], [place] [address]Dr. Abhinav Laguna Clarity (U) CLEAR Normal CLEAR [facility] Comment on above: Performed By: #### E RUR, DRUGRPD ####[facility] Kwgiyhvljj9379[address] [place], [place] [address]Dr. Abhinav Laguna Color (U) LT. YELLOW Normal YELLOW [facility] Comment on above: Performed By: #### E RUR, DRUGRPD ####[facility] Bouuhhygky[address] [place], [place] [address]Dr. Abhinav Laguna ERUAHD A micrscopic examina tion will be performed if indicated. Normal [facility] Comment on above: Performed By: #### Lon RUR, DRUGRPD ####[facility] Lltujnmzjd74[address] [place], [place] [address]Dr. Abhinav Laguna Glucose Ql (U) 1000 mg/dl Abnormal NEGATIVE [facility] Comment on above: Performed By: #### E RUR, DRUGRPD ####[facility] Dxtfrnplcj6133[address] [place], [place] [address]Dr. Abhinav Laguna Hemoglobin Ql (U) Negative Normal NEGATIVE [facility] Comment on above: Performed By: #### Lon RUR DRUGRPD ####[facility] Mpxoqsybqo427[address] [place], [place] [address]Dr. Abhinav Laguna Ketones Ql (U) Negative Normal NEGATIVE [facility] Comment on above: Performed By: #### Lon RUR, DRUGRPD ####[facility] Dtupgdyreg8404[address] [place], [place] [address]Dr. Abhinav Laguna LEUKOCYTES Negative Normal NEGATIVE [facility] Comment on above: Performed By: #### Lon BRODY DRUGRPD ####[facility] Icqflaboqi7088[address] [place], [place] [address]Dr. Abhinav Laguna Nitrite Ql (U) Negative Normal NEGATIVE [facility] Comment on above: Performed By: #### Lon BRODY, DRUGRPD ####[facility] Eepjlubypr16[address] [place], [place] [address]Dr. Abhinav Laguna pH (U) 5.5 [pH] Normal 5-9 [facility] Comment on above: Performed By: #### Lon RUR, DRUGRPD ####[facility] Wvpfdovnjf0034[address] [place], [place] [address]Dr. Abhinav Laguna SPEC GRAVITY 1.010 Normal 1.005-<=1.0 25 [facility] Comment on above: Performed By: #### Lon RUDale DRUGRPD ####[facility] Iqkiuxkhvl2138[address] [place], [place] [address]Dr. Abhinav Laguna UA PROTEIN Negative Normal NEGATIVE/ TRACE [facility] Comment on above: Performed By: #### Lon BRODY DRUGRPD ####[facility] Tvlbburfwc6[address] [place], [place] [address]Dr. Abhinav Laguna UR MICRO IND NOT INDICATED Normal [facility] Comment on above: Performed By: #### E RUR, DRUGRPD ####[facility] Smlslitwou12[address] [place], [place] [address]Dr. Abhinav Laguna Urobilinogen Qn (U) 0.2 {[place]'U}/dL Normal 0.2 - 1. 0 [facility] Comment on above: Performed By: #### E RUR, DRUGRPD ####[facility] Fjbrwqlfgv[address] [place], [place] [address]Dr. Abhinav Laguna ETHANOL (BLD ALC)on 08-21-19 ALC NOTE NOTE: 80 mg/dl is th e legal limit for a blood alcohol level Normal [facility] Comment on above: Performed By: #### E TH ####[facility] Qvihhurvbi[address] [place], [place] [address]Dr. Abhinav Jase Ethanol [Mass/Vol] mg/dL Normal [facility] Comment on above: Performed By: #### E TH ####[facility] Qaofthfyvu59[address] [place], [place] [address]Dr. Abhinav Laguna LACTATE/LACTIC ACIDon 2022 Lactate [Moles/Vol] 1.4 mmol/L Normal 0.4-1.9 [facility] Comment on above: Performed By: #### L ACT ####[facility] Munfoscrub[address] [place], [place] [address]Dr. Abhinav Jase Lactate [Moles/Vol] 3.5 mmol/L Critically high 0.4-1.9 [facility] Comment on above: Performed By: #### L ACT ####[facility] Rwrgrxfact27[address] [place], [place] [address]Dr. Abhinav Jase POINT OF CARE GLUCOSEon Glucose [Mass/Vol] 202 mg/dL Critically high 74-106 [facility] Comment on above: Performed By: #### P OCGLUC ####[facility] Gvgbcabmne7138[address] [place], [place] [address]Dr. Abhinav Laguna Glucose [Mass/Vol] 303 mg/dL Critically high 74-106 [facility] Comment on above: Performed By: #### P OCGLUC ####[facility] [address]qsxbxque39[address] [place] [address]Dr. Abhinav Laguna Glucose [Mass/Vol] 388 mg/dL Critically high 74-106 [facility] Comment on above: Performed By: #### P OCGLUC ####[facility] Rsmobyzdkq4208 [place] [address]Dr. Abhinav Laguna Glucose [Mass/Vol] 491 mg/dL Critically high 74-106 [facility] Comment on above: Performed By: #### P OCGLUC ####[facility] Nvvpudbcpb14[address] [place] [address]Dr. Abhinav Laguna POCGLUC >600 Critically high 74-106 [facility] Comment on above: Result Comment: Prev iously Confirmed Performed By: #### P OCGLUC ####[facility] Ryjjszrujo4[address] [place], [place] [address]Dr. Abhinav Laguna POCGLUC >600 Critically high 74-106 [facility] Comment on above: Result Comment: Prev iously Confirmed Performed By: #### P OCGLUC ####[facility] Xmmwafozoj[address] [place], [place] [address]Dr. Abhinav Jase PROF 14(COMP METB)on 023 Albumin [Mass/Vol] 3.0 g/dL Critically low 3.4-5.0 [facility] Comment on above: Performed By: #### B IV TECHNICIAN, CMP, TSH, CMADM ####[facility] Dipsylbrzv[address] [place] [address]Dr. Mirandagallo Jase Albumin/Globulin [Mass ratio] 0.9 {ratio} Normal [facility] Comment on above: Performed By: #### B IV TECHNICIAN, CMP, TSH, CMADM ####[facility] Apzlijgrpw[address] [place] [address]Dr. Abhinav Jase ALP [Catalytic activity/Vol] 219 U/L Critically high 46-116 [facility] Comment on above: Performed By: #### B IV TECHNICIAN, CMP, TSH, CMADM ####[facility] Jejksbinuw[address] [place] [address]Dr. Abhinav Laguna ALT [Catalytic activity/Vol] 43 U/L Normal 16-63 [facility] Comment on above: Performed By: #### B IV TECHNICIAN, CMP, TSH, CMADM ####[facility] Igeflddcdx65[address] [place] [address]Dr. Abhinav Laguna Anion gap [Moles/Vol] 14.4 mmol/L Normal [facility] Comment on above: Performed By: #### B IV TECHNICIAN, CMP, TSH, CMADM ####[facility] Qyghlupocp24[address] [place] [address]Dr. Abhinav Laguna AST [Catalytic activity/Vol] 24 U/L Normal 15-37 [facility] Comment on above: Performed By: #### B IV TECHNICIAN, CMP, TSH, CMADM ####[facility] Mmavytlfnp[address] [place] [address]Dr. Abhinav Laguna Bilirubin [Mass/Vol] 0.7 mg/dL Normal 0.2-1.0 [facility] Comment on above: Performed By: #### B IV TECHNICIAN, CMP, TSH, CMADM ####[facility] Wtliqrjtbf74[address] [place] [address]Dr. Abhinav Laguna Calcium [Mass/Vol] 9.8 mg/dL Normal 8.5-10.1 [facility] Comment on above: Performed By: #### B IV TECHNICIAN, CMP, TSH, CMADM ####[facility] Efgeyfksbv5[address] [place] [address]Dr. Abhinav Laguna Chloride [Moles/Vol] 88 mmol/L Critically low 98-107 [facility] Comment on above: Performed By: #### B IV TECHNICIAN, CMP, TSH, CMADM ####[facility] Mtablcfujc[address] [place] [address]Dr. Abhinav Laguna CO2 [Moles/Vol] 23.3 mmol/L Normal 21.0-32.0 [facility] Comment on above: Performed By: #### B IV TECHNICIAN, CMP, TSH, CMADM ####[facility] U[address]fratdmi[address] [place] [address]Dr. Abhinav Laguna Creatinine [Mass/Vol] 1.44 mg/dL Critically high 0.70-1.30 [facility] Comment on above: Performed By: #### B IV TECHNICIAN, CMP, TSH, CMADM ####[facility] Bjqtabqpvg[address] [place] [address]Dr. Abhinav Laguna EGFR-AF GEORGIAN 60 mL/min/1.73m2 Normal >=60 [facility] Comment on above: Performed By: #### B IV TECHNICIAN, CMP, TSH, CMADM ####[facility] Xgfncvgewe38[address] [place] [address]Dr. Abhinav Laguna EGFR-NON AF GEORGIAN 50 mL/min/1.73m2 Critically low >=60 [facility] Comment on above: Performed By: #### B IV TECHNICIAN, CMP, TSH, CMADM ####[facility] Kmydztmrmw54[address] [place] [address]Dr. Mirandagallo Jase Globulin (S) [Mass/Vol] 3.4 g/dL Normal [facility] Comment on above: Performed By: #### B IV TECHNICIAN, CMP, TSH, CMADM ####[facility] Vlddxgfwgn[address] [place] [address]Dr. Mirandagallo Laguna Glucose [Mass/Vol] 782 mg/dL Critically high 74-106 T [facility] Comment on above: Performed By: #### B IV TECHNICIAN, CMP, TSH, CMADM ####[facility] Rydtbegkbg77[address] [place] [address]Dr. Abhinav Lagnua Potassium [Moles/Vol] 3.7 mmol/L Normal 3.5-5.1 [facility] Comment on above: Performed By: #### B IV TECHNICIAN, CMP, TSH, CMADM ####[facility] Ekrfsihbbt5[address] [place] [address]Dr. Mirandagallo Laguna Protein [Mass/Vol] 6.4 g/dL Normal 6.4-8.2 [facility] Comment on above: Performed By: #### B IV TECHNICIAN, CMP, TSH, CMADM ####[facility] Bimwocxwer36[address] [place] [address]Dr. Abhinav Laguna Sodium [Moles/Vol] 122 mmol/L Critically low 136-145 [facility] Comment on above: Performed By: #### B IV TECHNICIAN, CMP, TSH, CMADM ####[facility] Nxugqhaijv6[address] [place] [address]Dr. Mirandagallo Jase Urea nitrogen [Mass/Vol] 32.0 mg/dL Critically high 7.0-18.0 [facility] Comment on above: Performed By: #### B IV TECHNICIAN, CMP, TSH, CMADM ####[facility] Dvhgjcmfbx4578 [place] [address]Dr. Abhinav Laguna Urea nitrogen/Creatinine [Mass ratio] 22.2 mg/mg Normal [facility] Comment on above: Performed By: #### B IV TECHNICIAN, CMP, TSH, CMADM ####[facility] Cpkntieicr[address] [place], [place] [address]Dr. Abhinav Laguna PROF CHEM 8 (BAS METB)on Anion gap [Moles/Vol] 10.3 mmol/L Normal [facility] Comment on above: Performed By: #### B MP ####[facility] Ofifculsus6[address] [place], [place] [address]Dr. Abhinav Laguna Calcium [Mass/Vol] 8.8 mg/dL Normal 8.5-10.1 [facility] Comment on above: Performed By: #### B MP ####[facility] Liytqnzrvv4[address] [place], [place] [address]Dr. Abhinav Laguna Chloride [Moles/Vol] 106 mmol/L Normal 98-107 [facility] Comment on above: Performed By: #### B MP ####[facility] Ynpasgvkmt50[address] [place], [place] [address]Dr. Abhinav Laguna CO2 [Moles/Vol] 22.2 mmol/L Normal 21.0-32.0 [facility] Comment on above: Performed By: #### B MP ####[facility] Poujuygxnk[address] [place], [place] [address]Dr. Abhinav Laguna Creatinine [Mass/Vol] 1.01 mg/dL Normal 0.70-1.30 [facility] Comment on above: Performed By: #### B MP ####[facility] [address]crkaeuta65[address] [place] [id number]. Abhinav Laguna EGFR-AF GEORGIAN >60 Normal >=60 [facility] Comment on above: Performed By: #### B MP ####[facility] Alqtaxoies[address] [place] [id number]. Abhinav Laguna EGFR-NON AF GEORGIAN >60 Normal >=60 [facility] Comment on above: Performed By: #### B MP ####[facility] Kwymifnllr95[address] [place] [address]Dr. Abhinav Laguna Glucose [Mass/Vol] 159 mg/dL Critically high 74-106 T [facility] Comment on above: Performed By: #### B MP ####[facility] Ylcfwjwsau54[address] [place] [address]Dr. Abhinav Laguna Potassium [Moles/Vol] 3.5 mmol/L Normal 3.5-5.1 [facility] Comment on above: Performed By: #### B MP ####[facility] Ltfeflwvsq2026 [place] [address]Dr. Abhinav Laguna Sodium [Moles/Vol] 135 mmol/L Critically low 136-145 Th [facility] Comment on above: Performed By: #### B MP ####[facility] Oiooxpgjji65[address] [place] [address]Dr. Abhinav Laguna Urea nitrogen [Mass/Vol] 32.0 mg/dL Critically high 7.0-18.0 [facility] Comment on above: Performed By: #### B MP ####[facility] Uczzigjrpc28[address] [place] [address]Dr. Abhinav Laguna Urea nitrogen/Creatinine [Mass ratio] 31.7 mg/mg Normal [facility] Comment on above: Performed By: #### B MP ####[facility] Xksyqidiwm67[address] [place] [address]Dr. Abhinav Laguna PROTIMEon 08-21-2022 INR Coag (PPP) [Relative time] 0.99 {INR} Normal [facility] Comment on above: Performed By: #### P TT, PT ####[facility] Uxaeaaouqd4[address] [place] [address]Dr. Abhinav Laguna INR GUIDELINES SEE BELOW Normal [facility] Comment on above: Result Comment: FABRICE RED INR: 2.0 - 3.0 CONDITIONS NOT LISTED BELOW 2.5 - 3.5 FOR PROSTHETIC HEART VALVE REPLACEMENT 2.5 - 3.5 RECURRENT THROMBOSIS Performed By: #### P TT, PT ####[facility] Zfxluusonu05[address] [place] [address]Dr. Abhinav Laguna PT Coag (PPP) [Time] 10.7 s Normal 9.0-11.6 [facility] Comment on above: Performed By: #### P TT, PT ####[facility] Hwysixsjrw[address] [place], [place] [address]Dr. Abhinav Laguna PTTon 08-21-2022 aPTT Coag (Bld) [Time] 25.4 s Normal 22.3-36.2 [facility] Comment on above: Performed By: #### P TT, PT ####[facility] Hudxpaumcu[address] [place], [place] [address]Dr. Abhinav Laguna TSHon 08-21-2022 TSH 3.175 uIU/mL Normal 0.358-3.740 [facility] Comment on above: Performed By: #### B IV TECHNICIAN, CMP, TSH, CMADM ####[facility] Sragarnfye0[address] [place], [place] [address]Dr. Abhinav Laguna XR CHEST 1 Von 08-21-2022 XR CHEST 1 V Normal [facility] CBC AUTO DIFFon 07-28-2022 BASO # 0.0 103/ul Normal 0.0-0.1 [facility] Comment on above: Performed By: #### C BC ####[facility] Afzuiybpjc995[address] [place], [place] [address]Dr. Abhinav Laguna Basophils/100 WBC (Bld) 0.5 % Normal 0.2-2.0 [facility] Comment on above: Performed By: #### C BC ####[facility] Bmqezwhwjc[address] [place], [place] [address]Dr. Abhinav Laguna EO # 0.1 103/ul Normal 0.0-0.7 [facility] Comment on above: Performed By: #### C BC ####[facility] Gpsvuryjfb13[address] [place] [address]Dr. Abhinav Laguna Eosinophils/100 WBC (Bld) 1.5 % Normal 0.9-7.0 [facility] Comment on above: Performed By: #### C BC ####[facility] Ntfcscetzr10[address] [place], [place] [address]Dr. Abhinav Laguna Erythrocyte distribution width (RBC) [Ratio] 11.9 % Normal 11.0-15.0 [facility] Comment on above: Performed By: #### C BC ####[facility] Punsruxtoz34[address] [place], [place] [address]Dr. Abhinav Laguna Hematocrit (Bld) [Volume fraction] 48.7 % Normal 42.0-54.0 [facility] Comment on above: Performed By: #### C BC ####[facility] Qddposdyeq[address] [place], [place] [address]Dr. Abhinav Laguna Hemoglobin (Bld) [Mass/Vol] 17.3 g/dL Normal 14.0-18.0 [facility] Comment on above: Performed By: #### C BC ####[facility] Fbtvvupyrm[address] [place], [place] [address]Dr. Abhinav Laguna IG # 0.02 10e3/ul Normal 0.00-0.03 [facility] Comment on above: Performed By: #### C BC ####[facility] Qfdcekocnu2435[address] [place], [place] [address]Dr. Abhinav Laguna IG % 0.3 % Normal 0.0-0.5 [facility] Comment on above: Performed By: #### C BC ####[facility] Nmgtfyabpa7[address] [place], [place] [address]Dr. Abhinav Laguna LYMPH # 2.9 103/ul Normal 1.2-3.8 [facility] Comment on above: Performed By: #### C BC ####[facility] Slvkiyhygs[address] [place], [place] [address]Dr. Abhinav Jase Lymphocytes/100 WBC (Bld) 46.3 % Normal 20.5-60.0 [facility] Comment on above: Performed By: #### C BC ####[facility] Ccnjkalrid94[address] [place] [address]DrNohemi Laguna MANUAL DIFF REQ NO Normal [facility] Comment on above: Performed By: #### C BC ####[facility] Exgexlmmgr5[address] [place] [id number]. Abhinav Laguna MCH (RBC) [Entitic mass] 30.3 pg Normal 25.9-34.0 [facility] Comment on above: Performed By: #### C BC ####[facility] Pheawmmfkr75[address] [place] [address]Dr. Abhinav Laguna MCHC (RBC) [Mass/Vol] 35.5 g/dL Critically high 29.9-35.2 [facility] Comment on above: Performed By: #### C BC ####[facility] Npvavuawgf[address] [place], [place] [address]Dr. Abhinav Laguna MCV (RBC) [Entitic vol] 85.3 fL Normal 80.0-94.0 [facility] Comment on above: Performed By: #### C BC ####[facility] Nhbkrcdkdj9989[address] [place], [place] [address]DrNohemi Laguna MONO # 0.5 103/ul Normal 0.3-0.8 [facility] Comment on above: Performed By: #### C BC ####[facility] Uhtfxamlox79[address] [place], [place] [address]DrNohemi Laguna Monocytes/100 WBC (Bld) 7.9 % Normal 1.7-12.0 [facility] Comment on above: Performed By: #### C BC ####[facility] Reoaxqwaag65[address] [place], [place] [address]DrNohemi Laguna NEUT # 2.7 103/ul Normal 1.4-6.5 [facility] Comment on above: Performed By: #### C BC ####[facility] Kudxnvtdbu34[address] [place], [place] [address]DrNohemi Laguna Neutrophils/100 WBC (Bld) 43.5 % Normal 43.0-75.0 [facility] Comment on above: Performed By: #### C BC ####[facility] Kyfwionzhm5[address] [place] [address]Dr. Abhinav Laguna Platelet mean volume (Bld) [Entitic vol] 10.7 fL Normal 9.5-13.5 [facility] Comment on above: Performed By: #### C BC ####[facility] Pegvhlqjac4327 [place] [address]Dr. Abhinav Laguna PLT 202 103/ul Normal 150-450 [facility] Comment on above: Performed By: #### C BC ####[facility] Irmzptshus35[address] [place], [place] [address]Dr. Abhinav Laguna RBC 5.71 106/ul Normal 4.70-6.10 [facility] Comment on above: Performed By: #### C BC ####[facility] Pnjragniaz[address] [place], [place] [address]Dr. Abhinav Laguna WBC 6.2 103/ul Normal 4.0-11.0 [facility] Comment on above: Performed By: #### C BC ####[facility] Ewullxvgts[address] [place], [place] [address]Dr. Abhinav Laguna GLYCOHEMOGLOBIN A1Con 2021 ADA RECOMMENDATION SEE BELOW Normal [facility] Comment on above: Result Comment: ADA RECOMMENDED LIMIT 4.0 - 6.0 ADA THERAPEUTIC TARGET < 7.0 ACTION SUGGESTED > 7.0 Performed By: #### A 1C ####[facility] [address]cy[address] [place], [place] [address]Dr. Abhinav Laguna Glucose [Mass/Vol] 272 mg/dL Normal [facility] Comment on above: Performed By: #### A 1C ####[facility] Udzwbtqwek[address] [place], [place] [address]Dr. Abhinav Laguna HbA1c (Bld) [Mass fraction] 11.1 % Critically high 4.5-6.2 [facility] Comment on above: Performed By: #### A 1C ####[facility] Etqiondvug[address] [place], [place] [address]Dr. Abhinav Jase LIPID PROFILEon 07-28-2022 CHOL-HDL RATIO NORM SEE BELOW Normal [facility] Comment on above: Result Comment: 3.3 - 4.4 LOW RISK 4.4 - 7.1 AVERAGE RISK 7.1 - 11.0 MODERATE RISK >11.0 HIGH RISK Performed By: #### L IPID, CMP ####[facility] Tv[address]fqcxsy[address] [place] [id number]. Abhinav Laguna Cholesterol [Mass/Vol] 200 mg/dL Normal <=200 [facility] Comment on above: Performed By: #### L IPID, CMP ####[facility] Nhymtnexfl3435 [place] [id number]. Abhinav Laguna Cholesterol in HDL [Mass/Vol] 50 mg/dL Normal 40-60 [facility] Comment on above: Performed By: #### L IPID, CMP ####[facility] Gpvwchdfrv5[address] [place] [id number]. Abhinav Laguna Cholesterol in LDL [Mass/Vol] 125.6 mg/dL Normal [facility] Comment on above: Performed By: #### L IPID, CMP ####[facility] Hdxeeaftwa7532 [place] [id number]. Abhinav Laguna Cholesterol.total/Chol esterol in HDL [Mass ratio] 4.0 {ratio} Normal [facility] Comment on above: Performed By: #### L IPID, CMP ####[facility] Zhymibikcv1345 [place] [id number]. Abhinav Laguna HDL NORMAL > or = 60 mg/dl - LO W CARDIOVASCULAR RISK <40 mg/dl - HIGH CARDIOVASCULAR RISK Normal [facility] Comment on above: Performed By: #### L IPID, CMP ####[facility] Ybblocawvr5638 [place] [id number]. Abhinav Laguna LDL CALC NORMAL SEE BELOW Normal [facility] Comment on above: Result Comment: <100 mg/dl OPTIMAL 100 - 129 mg/dl NEAR OR ABOVE OPTIMAL 130 - 159 mg/dl BORDERLINE HIGH 160 - 189 mg/dl HIGH >190 mg/dl VERY HIGH Performed By: #### L IPID, CMP ####[facility] [address]oy[address] [place] [address]Dr. Abhinav Laguna Triglyceride [Mass/Vol] 122 mg/dL Normal <=150 [facility] Comment on above: Performed By: #### L IPID, CMP ####[facility] Lwwtcsncex67[address] [place] [address]Dr. Abhinav Laguna VLDL CALC 24.4 mg/dL Normal [facility] Comment on above: Performed By: #### L IPID, CMP ####[facility] Umcgyouxxi[address] [place], [place] [address]Dr. Abhinav Laguna PROF 14(COMP METB)on 022 Albumin [Mass/Vol] 2.6 g/dL Critically low 3.4-5.0 [facility] Comment on above: Performed By: #### L IPID, CMP ####[facility] Fjfbwhlian94[address] [place], [place] [address]Dr. Abhinav Laguna Albumin/Globulin [Mass ratio] 0.6 {ratio} Normal [facility] Comment on above: Performed By: #### L IPID, CMP ####[facility] Yhafyoxfpa[address] [place], [place] [address]Dr. Abhinav Laguna ALP [Catalytic activity/Vol] 247 U/L Critically high 46-116 [facility] Comment on above: Performed By: #### L IPID, CMP ####[facility] Bjjomngvkh7[address] [place], [place] [address]Dr. Abhinav Laguna ALT [Catalytic activity/Vol] 33 U/L Normal 16-63 [facility] Comment on above: Performed By: #### L IPID, CMP ####[facility] Weiajhpdyn9[address] [place], [place] [address]Dr. Abhinav Laguna Anion gap [Moles/Vol] 7.7 mmol/L Normal [facility] Comment on above: Performed By: #### L IPID, CMP ####[facility] Aqqbkyhbcx[address] [place], [place] [address]Dr. Abhinav Laguna AST [Catalytic activity/Vol] 19 U/L Normal 15-37 [facility] Comment on above: Performed By: #### L IPID, CMP ####[facility] Nnqdxilugu[address] [place] [address]Dr. Abhinav Laguna Bilirubin [Mass/Vol] 0.2 mg/dL Normal 0.2-1.0 [facility] Comment on above: Performed By: #### L IPID, CMP ####[facility] Wxfnnpppsy85[address] [place], [place] [address]Dr. Abhinav Laguna Calcium [Mass/Vol] 9.7 mg/dL Normal 8.5-10.1 [facility] Comment on above: Performed By: #### L IPID, CMP ####[facility] Zqnbzpnnkq5[address] [place], [place] [address]Dr. Abhinav Laguna Chloride [Moles/Vol] 101 mmol/L Normal 98-107 [facility] Comment on above: Performed By: #### L IPID, CMP ####[facility] Zyyzpqjdsq8[address] [place], [place] [address]Dr. Abhinav Laguna CO2 [Moles/Vol] 30.8 mmol/L Normal 21.0-32.0 [facility] Comment on above: Performed By: #### L IPID, CMP ####[facility] Jrrbbxofcx4[address] [place], [place] [address]Dr. Abhinav Laguna Creatinine [Mass/Vol] 0.84 mg/dL Normal 0.70-1.30 [facility] Comment on above: Performed By: #### L IPID, CMP ####[facility] Khnodhlcez23[address] [place], [place] [address]Dr. Abhinav Laguna EGFR-AF GEORGIAN >60 Normal >=60 [facility] Comment on above: Performed By: #### L IPID, CMP ####[facility] Apqdrzuvim3259[address] [place], [place] [address]Dr. Abhinav Laguna EGFR-NON AF GEORGIAN >60 Normal >=60 [facility] Comment on above: Performed By: #### L IPID, CMP ####[facility] Lserrsahlx[address] [place], [place] [address]Dr. Abhinav Laguna Globulin (S) [Mass/Vol] 4.1 g/dL Normal [facility] Comment on above: Performed By: #### L IPID, CMP ####[facility] Tvyvhkpolg4[address] [place] [address]Dr. Abhinav Laguna Glucose [Mass/Vol] 265 mg/dL Critically high 74-106 [facility] Comment on above: Performed By: #### L IPID, CMP ####[facility] Nyzoxdpzpg72[address] [place] [address]Dr. Abhinav Laguna Potassium [Moles/Vol] 4.5 mmol/L Normal 3.5-5.1 [facility] Comment on above: Performed By: #### L IPID, CMP ####[facility] Baixyplcif[address] [place], [place] [address]Dr. Abhinav Laguna Protein [Mass/Vol] 6.7 g/dL Normal 6.4-8.2 [facility] Comment on above: Performed By: #### L IPID, CMP ####[facility] Ccjbbyawah8122[address] [place], [place] [address]Dr. Abhinav Laguna Sodium [Moles/Vol] 135 mmol/L Critically low 136-145 [facility] Comment on above: Performed By: #### L IPID, CMP ####[facility] Wjgzetdozw2843[address] [place], [place] [address]Dr. Abhinav Laguna Urea nitrogen [Mass/Vol] 18.0 mg/dL Normal 7.0-18.0 [facility] Comment on above: Performed By: #### L IPID, CMP ####[facility] Agmvloyhet8939[address] [place], [place] [address]Dr. Abhinav Laguna Urea nitrogen/Creatinine [Mass ratio] 21.4 mg/mg Normal [facility] Comment on above: Performed By: #### L IPID, CMP ####[facility] Pyinwctpzb1274[address] [place], [place] [address]Dr. Abhinav Laguna SED [facility] SED RATE 28 mm/hr Critically high <=20 [facility] Comment on above: Performed By: #### S EDR ####[facility] Xnakqznnoq4469[address] [place], [place] [address]Dr. Abhinav Laguna XR FOOT RT MIN 3 VIEWSon XR FOOT RT MIN 3 VIEWS Normal [facility] CBC AUTO DIFFon 02-09-2022 BASO # 0.0 103/ul Normal 0.0-0.1 [facility] Comment on above: Performed By: #### C BC ####[facility] Nsyoutlnqw20[address] [place], [place] [address]Dr. Abhinav Laguna Basophils/100 WBC (Bld) 0.4 % Normal 0.2-2.0 [facility] Comment on above: Performed By: #### C BC ####[facility] Vhlatodpce[address] [place], [place] [address]Dr. Abhinav Laguna EO # 0.1 103/ul Normal 0.0-0.7 [facility] Comment on above: Performed By: #### C BC ####[facility] Opsvfazfzj9036[address] [place], [place] [address]Dr. Abhinav Laguna Eosinophils/100 WBC (Bld) 1.5 % Normal 0.9-7.0 [facility] Comment on above: Performed By: #### C BC ####[facility] Xeryanvcrb[address] [place], [place] [address]Dr. Abhinav Laguna Erythrocyte distribution width (RBC) [Ratio] 12.4 % Normal 11.0-15.0 [facility] Comment on above: Performed By: #### C BC ####[facility] Kdhrbtfbpi[address] [place], [place] [address]Dr. Abhinav Laguna Hematocrit (Bld) [Volume fraction] 38.2 % Critically low 42.0-54.0 [facility] Comment on above: Performed By: #### C BC ####[facility] Vpxkyfbmwx3376[address] [place], [place] [address]Dr. Abhinav Laguna Hemoglobin (Bld) [Mass/Vol] 13.9 g/dL Critically low 14.0-18.0 [facility] Comment on above: Performed By: #### C BC ####[facility] H[address]abjvfpg39[address] [place], [place] [address]Dr. Abhinav Laguna IG # 0.05 10e3/ul Critically high 0.00-0.03 [facility] Comment on above: Performed By: #### C BC ####[facility] B[address]rusqxqoh3[address] [place] [address]Dr. Abhinav Laguna IG % 0.6 % Critically high 0.0-0.5 [facility] Comment on above: Performed By: #### C BC ####[facility] Orhwozznkn[address] [place] [address]Dr. Abhinav Laguna LYMPH # 2.2 103/ul Normal 1.2-3.8 [facility] Comment on above: Performed By: #### C BC ####[facility] Zokcyvsnho[address] [place], [place] [address]Dr. Abhinav Jase Lymphocytes/100 WBC (Bld) 26.9 % Normal 20.5-60.0 [facility] Comment on above: Performed By: #### C BC ####[facility] Dvdsrqcnde[address] [place], [place] [address]Dr. Mirandagallo Laguna MANUAL DIFF REQ NO Normal [facility] Comment on above: Performed By: #### C BC ####[facility] Gnxvqtuupi[address] [place], [place] [address]Dr. Abhinav Laguna MCH (RBC) [Entitic mass] 31.6 pg Normal 25.9-34.0 [facility] Comment on above: Performed By: #### C BC ####[facility] Rpfmzomemj49[address] [place], [place] [address]Dr. Abhinav Laguna MCHC (RBC) [Mass/Vol] 36.4 g/dL Critically high 29.9-35.2 [facility] Comment on above: Performed By: #### C BC ####[facility] Fmmabmktgd[address] [place], [place] [address]Dr. Abhinav Laguna MCV (RBC) [Entitic vol] 86.8 fL Normal 80.0-94.0 [facility] Comment on above: Performed By: #### C BC ####[facility] Keckbaxftd67[address] [place], [place] [address]Dr. Abhinav Jase MONO # 0.5 103/ul Normal 0.3-0.8 [facility] Comment on above: Performed By: #### C BC ####[facility] Ljsndnrwxh4492 [place] [id number]. Abhinav Laguna Monocytes/100 WBC (Bld) 6.2 % Normal 1.7-12.0 [facility] Comment on above: Performed By: #### C BC ####[facility] Jsjfifcwqm2890 [place] [id number]. Abhinav Laguna NEUT # 5.2 103/ul Normal 1.4-6.5 [facility] Comment on above: Performed By: #### C BC ####[facility] Pufqpnwlvi8186 [place] [id number]. Abhinav Laguna Neutrophils/100 WBC (Bld) 64.4 % Normal 43.0-75.0 [facility] Comment on above: Performed By: #### C BC ####[facility] Fsvtfkxaqc9795 [place] [id number]. Abhinav Laguna Platelet mean volume (Bld) [Entitic vol] 10.8 fL Normal 9.5-13.5 [facility] Comment on above: Performed By: #### C BC ####[facility] Ecnkyruzgv1878 [place] [id number]. Abhinav Laguna PLT 226 103/ul Normal 150-450 [facility] Comment on above: Performed By: #### C BC ####[facility] Vkdjaetnek5179 [place] [id number]. Abhinav Laguna RBC 4.40 106/ul Critically low 4.70-6.10 [facility] Comment on above: Performed By: #### C BC ####[facility] Efhlaovklz7007 [place] [id number]. Abhinav Laguna WBC 8.0 103/ul Normal 4.0-11.0 [facility] Comment on above: Performed By: #### C BC ####[facility] Nbwcppiooh9664 [place] [id number]. Abhinav Laguna POINT OF CARE GLUCOSEon -2 Glucose [Mass/Vol] 360 mg/dL Critically high 74-106 [facility] Comment on above: Performed By: #### P OCGLUC ####[facility] Pgqkpkrpnt8335 [place] [address]Dr. Abhinav Laguna PROF CHEM 8 (BAS METB)on Anion gap [Moles/Vol] 13.6 mmol/L Normal [facility] Comment on above: Performed By: #### B MP ####[facility] Mlnglphqqh[address] [place], [place] [address]Dr. Abhinav Laguna Calcium [Mass/Vol] 9.1 mg/dL Normal 8.5-10.1 [facility] Comment on above: Performed By: #### B MP ####[facility] Xruluvnbbn4[address] [place], [place] [address]Dr. Abhinav Laguna Chloride [Moles/Vol] 102 mmol/L Normal 98-107 [facility] Comment on above: Performed By: #### B MP ####[facility] Xfxafvznit[address] [place], [place] [address]Dr. Abhinav Laguna CO2 [Moles/Vol] 21.9 mmol/L Normal 21.0-32.0 [facility] Comment on above: Performed By: #### B MP ####[facility] Oawwhdsrrq4617[address] [place], [place] [address]Dr. Abhinva Laguna Creatinine [Mass/Vol] 0.89 mg/dL Normal 0.70-1.30 [facility] Comment on above: Performed By: #### B MP ####[facility] Rrlkvixlpg4863[address] [place], [place] [address]Dr. Abhinav Laguna EGFR-AF GEORGIAN >60 Normal >=60 [facility] Comment on above: Performed By: #### B MP ####[facility] Jizsohlzzu2108[address] [place], [place] [address]Dr. Abhinav aLguna EGFR-NON AF GEORGIAN >60 Normal >=60 [facility] Comment on above: Performed By: #### B MP ####[facility] Qefhxvcpcc236[address] [place], [place] [address]Dr. Abhinav Laguna Glucose [Mass/Vol] 394 mg/dL Critically high 74-106 [facility] Comment on above: Performed By: #### B MP ####[facility] Xdobafsrsq8442 [place] [address]Dr. Abhinav Laguna Potassium [Moles/Vol] 4.5 mmol/L Normal 3.5-5.1 [facility] Comment on above: Performed By: #### B MP ####[facility] Zlfrabwnqq9099[address] [place], [place] [address]Dr. Abhinav Laguna Sodium [Moles/Vol] 133 mmol/L Critically low 136-145 [facility] Comment on above: Performed By: #### B MP ####[facility] Qivhnlhzrd9[address] [place], [place] [address]Dr. Abhinav Laguna Urea nitrogen [Mass/Vol] 21.0 mg/dL Critically high 7.0-18.0 [facility] Comment on above: Performed By: #### B MP ####[facility] Pbejnnvfwv[address] [place], [place] [address]Dr. Abhinav Laguna Urea nitrogen/Creatinine [Mass ratio] 23.6 mg/mg Normal [facility] Comment on above: Performed By: #### B MP ####[facility] Dblekyswwi4783[address] [place], [place] [address]Dr. Abhinav Jase ACETONE SERUMon 02-08-2022 ACETONE Negative Normal NEGATIVE [facility] Comment on above: Performed By: #### A CETON ####[facility] Cnhtejmood[address] [place], [place] [address]Dr. Abhinav Laguna CBC AUTO DIFFon 02-08-2022 BASO # 0.1 103/ul Normal 0.0-0.1 [facility] Comment on above: Performed By: #### C BC ####[facility] Etdkhlyksk7278[address] [place], [place] [address]Dr. Abhinav Laguna Basophils/100 WBC (Bld) 0.8 % Normal 0.2-2.0 [facility] Comment on above: Performed By: #### C BC ####[facility] Zmdgnhveee2656[address] [place], [place] [address]Dr. Abhinav Laguna EO # 0.2 103/ul Normal 0.0-0.7 [facility] Comment on above: Performed By: #### C BC ####[facility] Ttqzugdnlr045[address] [place] [address]Dr. Abhinav Laguna Eosinophils/100 WBC (Bld) 1.9 % Normal 0.9-7.0 [facility] Comment on above: Performed By: #### C BC ####[facility] Ifnfzmovsj3643 [place] [address]Dr. Abhinav Laguna Erythrocyte distribution width (RBC) [Ratio] 12.3 % Normal 11.0-15.0 [facility] Comment on above: Performed By: #### C BC ####[facility] Sawacslsly7824[address] [place], [place] [address]Dr. Abhinav Laguna Hematocrit (Bld) [Volume fraction] 46.1 % Normal 42.0-54.0 [facility] Comment on above: Performed By: #### C BC ####[facility] Sdnspsfaob[address] [place], [place] [address]Dr. Abhinav Laguna Hemoglobin (Bld) [Mass/Vol] 17.0 g/dL Normal 14.0-18.0 [facility] Comment on above: Performed By: #### C BC ####[facility] Oenwqwcplx[address] [place], [place] [address]Dr. Abhinav Laguna IG # 0.04 10e3/ul Critically high 0.00-0.03 [facility] Comment on above: Performed By: #### C BC ####[facility] Bmhrsxumnf86[address] [place], [place] [address]Dr. Abhinav Laguna IG % 0.4 % Normal 0.0-0.5 [facility] Comment on above: Performed By: #### C BC ####[facility] Yvdyxzcemv[address] [place], [place] [address]Dr. Abhinav Laguna LYMPH # 2.5 103/ul Normal 1.2-3.8 [facility] Comment on above: Performed By: #### C BC ####[facility] Veowwwldsr4[address] [place], [place] [address]Dr. Abhinav Laguna Lymphocytes/100 WBC (Bld) 27.4 % Normal 20.5-60.0 [facility] Comment on above: Performed By: #### C BC ####[facility] Eqbwygudek67[address] [place] [address]Dr. Abhinav Laguna MANUAL DIFF REQ NO Normal [facility] Comment on above: Performed By: #### C BC ####[facility] Lxyhblxzmw7262 [place] [id number]. Abhinav Laguna MCH (RBC) [Entitic mass] 31.7 pg Normal 25.9-34.0 [facility] Comment on above: Performed By: #### C BC ####[facility] Szbuhsxpda9658 [place] [address]Dr. Abhinav Laguna MCHC (RBC) [Mass/Vol] 36.9 g/dL Critically high 29.9-35.2 [facility] Comment on above: Performed By: #### C BC ####[facility] Ytcmvjcckh[address] [place], [place] [address]Dr. Abhinav Laguna MCV (RBC) [Entitic vol] 86.0 fL Normal 80.0-94.0 [facility] Comment on above: Performed By: #### C BC ####[facility] Uxsnzbzmtx84[address] [place], [place] [address]Dr. Abhinav Laguna MONO # 0.6 103/ul Normal 0.3-0.8 [facility] Comment on above: Performed By: #### C BC ####[facility] Ckvfobqzix8[address] [place], [place] [address]Dr. Abhinav Laguna Monocytes/100 WBC (Bld) 6.4 % Normal 1.7-12.0 [facility] Comment on above: Performed By: #### C BC ####[facility] Bpztfjutmf[address] [place], [place] [address]Dr. Abhinav Laguna NEUT # 5.7 103/ul Normal 1.4-6.5 [facility] Comment on above: Performed By: #### C BC ####[facility] Lyhsocgcjl8[address] [place], [place] [address]Dr. Abhinav Laugna Neutrophils/100 WBC (Bld) 63.1 % Normal 43.0-75.0 [facility] Comment on above: Performed By: #### C BC ####[facility] Hiakjjwisu8920 [place] [id number]. Abhinav Laguna Platelet mean volume (Bld) [Entitic vol] 11.8 fL Normal 9.5-13.5 [facility] Comment on above: Performed By: #### C BC ####[facility] Rlnwwuhjox1207 [place] [id number]. Abhinav Laguna PLT 256 103/ul Normal 150-450 [facility] Comment on above: Performed By: #### C BC ####[facility] Wspaodgyhr7206 [place] [id number]. Abhinav Laguna RBC 5.36 106/ul Normal 4.70-6.10 [facility] Comment on above: Performed By: #### C BC ####[facility] Pgmnacqzws7238 [place] [id number]. Abhinav Laguna WBC 9.0 103/ul Normal 4.0-11.0 [facility] Comment on above: Performed By: #### C BC ####[facility] Rmqoqpqdrk3272 [place] [id number]. Abhinav Laguna CULTURE BLOODon 02-08-2022 Microscopic examination of blood, culture Culture Observations: NO GROWTH AT 5 DAYS. Normal [facility] Comment on above: Performed By: #### B LDCX2 ####[facility] Efsfqrwzxa2456 [place] [id number]. Abhinav Laguna Microscopic examination of blood, culture Culture Observations: NO GROWTH AT 5 DAYS. Normal [facility] Comment on above: Performed By: #### B LDCX1 ####[facility] Wbpiwgziaz6718 [place] [address]Dr. Abhinav Laguna Covid-19 PCR ([facility]on 01-16 SARS-CoV-2 (COVID-19) RNA EVERT+probe Ql (Unsp spec) Not detected Normal NOT DETECTED [facility] Comment on above: Result Comment: When diagnostic testing is negative, the possibility of a false negative should be considered inthe context of a patient's recent exposures and the presence of clinical signs and symptomsconsistent with SARS-CoV-2.This test is not yet approved or cleared by the [place] FDA. When there are no FDA-approved or cleared tests available, and other criteria are met, FDA can make tests available under an emergency access mechanism called an Emergency Use Authorization (EUA). The EUA for this test is supported by the [employer] of Health and Human Service's declaration that circumstances exist to justify the emergency use of in vitro diagnostics for the detection and/or diagnosis of the virus that causes COVID-19. This EUA will remain in effect for the duration of the COVID-19 declaration justifying emergency of IVDs, unless it is terminated or revoked by the FDA (after which the test may no longer be used). Performed By: #### C [facility] ####[facility] Ktfcllidil8[address] [place], [place] [address]Dr. Abhinav Laguna ER URINE PROFILEon 2 Bilirubin Ql (U) Negative Normal NEGATIVE [facility] Comment on above: Performed By: #### E RUR ####[facility] Yzmchtykbm8[address] [place], [place] [address]Dr. Abhinav Laguna Clarity (U) CLEAR Normal CLEAR [facility] Comment on above: Performed By: #### E RUR ####[facility] Vcvtiivyzl47[address] [place], [place] [address]Dr. Abhinav Laguna Color (U) LT. YELLOW Normal YELLOW [facility] Comment on above: Performed By: #### E RUR ####[facility] Uidyevmcol[address] [place], [place] [address]Dr. Abhinav Laguna ERUAHD A micrscopic examina tion will be performed if indicated. Normal [facility] Comment on above: Performed By: #### E RUR ####[facility] Crmmrkasuz75[address] [place], [place] [address]Dr. Abhinav Laguna Glucose Ql (U) >1000 Abnormal NEGATIVE [facility] Comment on above: Performed By: #### E RUR ####[facility] Uupekthpyg207[address] [place], [place] [address]Dr. Abhinav Laguna Hemoglobin Ql (U) Negative Normal NEGATIVE [facility] Comment on above: Performed By: #### E RUR ####[facility] Nbbducetxu0418 [place] [address]Dr. Abhinav Laguna Ketones Ql (U) Negative Normal NEGATIVE [facility] Comment on above: Performed By: #### E RUR ####[facility] Untayuvsqf5630 [place] [address]Dr. Abhinav Laguna LEUKOCYTES Negative Normal NEGATIVE [facility] Comment on above: Performed By: #### E RUR ####[facility] Jwruqxtrcd20[address] [place], [place] [address]Dr. Abhinav Laguna Nitrite Ql (U) Negative Normal NEGATIVE [facility] Comment on above: Performed By: #### E RUR ####[facility] Nskowzgspo24[address] [place], [place] [address]Dr. Abhinav Laguna pH (U) 6.5 [pH] Normal 5-9 [facility] Comment on above: Performed By: #### E RUR ####[facility] Zisgebgdaw[address] [place], [place] [address]Dr. Abhinav Laguna SPEC GRAVITY 1.010 Normal 1.005-<=1.[address] [place] [address] Comment on above: Performed By: #### E RUR ####[facility] Nhbrvdwasq20[address] [place], [place] [address]Dr. Abhinav Laguna UA PROTEIN Negative Normal NEGATIVE/ TRACE [facility] Comment on above: Performed By: #### E RUR ####[facility] Kfmikbgevg7[address] [place], [place] [address]Dr. Mirandagallo Laguna UR MICRO IND NOT INDICATED Normal [facility] Comment on above: Performed By: #### E RUR ####[facility] Xqzwholblj[address] [place], [place] [address]Dr. Mirandagallo Laguna Urobilinogen Qn (U) 1.0 {Marshall'U}/dL Normal 0.2 - 1. 0 [facility] Comment on above: Performed By: #### E RUR ####[facility] Tihjcoassh[address] [place], [place] [address]Dr. Abhinav Laguna LACTATE/LACTIC ACIDon 2021 Lactate [Moles/Vol] 1.2 mmol/L Normal 0.4-1.9 [facility] Comment on above: Performed By: #### L ACT ####[facility] Mhpbobfuif[address] [place], [place] [address]Dr. Abhinav Laguna Lactate [Moles/Vol] 1.7 mmol/L Normal 0.4-1.9 [facility] [place] Comment on above: Performed By: #### L ACT ####[facility] Lbcekkmiso[address] [place], [place] [address]Dr. Abhinav Laguna PH VENOUS BLOODon 02-08-2022 PCO2 VENOUS 48.3 mmHg Normal 40.0-52.0 [facility] [place] Comment on above: Performed By: #### P HVEN ####[facility] Lrlpvjeqxm[address] [place], [place] [address]Dr. Abhinav Laguna pH VENOUS 7.373 Normal 7.330-7.430 [facility] [place] Comment on above: Performed By: #### P HVEN ####[facility] Uwurxrcbzk5276[address] [place], [place] [address]Dr. Abhinav Laguna POINT OF CARE GLUCOSEon 01-16 Glucose [Mass/Vol] 198 mg/dL Critically high 74-106 [facility] Comment on above: Performed By: #### P OCGLUC ####[facility] Xbkpbpgtqw8533[address] [place], [place] [address]Dr. Abhinav Laguna Glucose [Mass/Vol] 303 mg/dL Critically high -106 [facility] Comment on above: Performed By: #### P OCGLUC ####[facility] Splnschmby4015[address] [place], [place] [address]Dr. Abhinav Laguna Glucose [Mass/Vol] 503 mg/dL Critically high -106 [facility] Comment on above: Result Comment: Will Repeat Test Performed By: #### P OCGLUC ####[facility] Xeccquzhkr5609[address] [place], [place] [address]Dr. Abhinav Laguna Glucose [Mass/Vol] 538 mg/dL Critically high 74-106 [facility] Comment on above: Result Comment: Prev iously Confirmed Performed By: #### P OCGLUC ####[facility] Agzjkmkngm028[address] [place] [id number]. Abhinav Laguna Glucose [Mass/Vol] 594 mg/dL Critically high 74-106 [facility] Comment on above: Result Comment: Will Repeat Test Performed By: #### P OCGLUC ####[facility] Idwhjejvwr37[address] [place] [address]Dr. Abhinav Laguna POCGLUC >600 Critically high 74-106 [facility] [place] Comment on above: Result Comment: Resu lt Not Confirmed Performed By: #### P OCGLUC ####[facility] Cbhbvbzwfp6234 [place] [address]Dr. Abhinav Laguna PROF 14(COMP METB)on 022 Albumin [Mass/Vol] 3.5 g/dL Normal 3.4-5.0 [facility] [place] Comment on above: Performed By: #### C MP ####[facility] Prtsvilhds1904[address] [place], [place] [address]Dr. Abhinav Laguna Albumin/Globulin [Mass ratio] 0.9 {ratio} Normal [facility] [place] Comment on above: Performed By: #### C MP ####[facility] Vstbexznhv1802[address] [place], [place] [address]Dr. Abhinav Laguna ALP [Catalytic activity/Vol] 420 U/L Critically high 46-116 [facility] [place] Comment on above: Performed By: #### C MP ####[facility] Jkqujjxxbr6318 [place] [address]Dr. Abhinav Laguna ALT [Catalytic activity/Vol] 44 U/L Normal 16-63 [facility] [place] Comment on above: Performed By: #### C MP ####[facility] Xafoosndhz3714 [place] [address]Dr. Abhinav Laguna Anion gap [Moles/Vol] 13.5 mmol/L Normal [facility] Comment on above: Performed By: #### C MP ####[facility] Pbtjyxvipf82[address] [place] [address]Dr. Abhinav Laguna AST [Catalytic activity/Vol] 18 U/L Normal 15-37 [facility] [place] Comment on above: Performed By: #### C MP ####[facility] Kuyedogxek5[address] [place], [place] [address]Dr. Abhinav Laguna Bilirubin [Mass/Vol] 0.6 mg/dL Normal 0.2-1.0 [facility] Comment on above: Performed By: #### C MP ####[facility] Kuwtymzjqv0187[address] [place], [place] [address]Dr. Abhinav Laguna Calcium [Mass/Vol] 9.8 mg/dL Normal 8.5-10.1 [facility] Comment on above: Performed By: #### C MP ####[facility] Tysdmazntw5395[address] [place], [place] [address]Dr. Abhinav Laguna Chloride [Moles/Vol] 90 mmol/L Critically low 98-107 [facility] Comment on above: Performed By: #### C MP ####[facility] Qoovdhsomn5785[address] [place], [place] [address]Dr. Abhinav Laguna CO2 [Moles/Vol] 26.7 mmol/L Normal 21.0-32.0 [facility] Comment on above: Performed By: #### C MP ####[facility] Kkmehpoldb9574[address] [place], [place] [address]Dr. Abhinav Laguna Creatinine [Mass/Vol] 1.12 mg/dL Normal 0.70-1.30 [facility] Comment on above: Performed By: #### C MP ####[facility] Cuiubdkyit1239[address] [place], [place] [address]Dr. Abhinav Jase EGFR-AF GEORGIAN >60 Normal >=60 [facility] Comment on above: Performed By: #### C MP ####[facility] Pljzsniiyh[address] [place], [place] [address]Dr. Abhinav Laguna EGFR-NON AF GEORGIAN >60 Normal >=60 [facility] Comment on above: Performed By: #### C MP ####[facility] Roowfpfidj492[address] [place], [place] [address]Dr. Abhinav Laguna Globulin (S) [Mass/Vol] 3.8 g/dL Normal [facility] Comment on above: Performed By: #### C MP ####[facility] Qsrcplyyue0782 [place] [address]Dr. Abhinav Laguna Glucose [Mass/Vol] 756 mg/dL Critically high 74-106 [facility] Comment on above: Performed By: #### C MP ####[facility] Vzmrfqiuzw6054 [place] [address]Dr. Abhinav Laguna Potassium [Moles/Vol] 5.2 mmol/L Critically high 3.5-5.1 [facility] [place] Comment on above: Performed By: #### C MP ####[facility] Eeitqdltje473[address] [place], [place] [address]Dr. Abhinav Laguna Protein [Mass/Vol] 7.3 g/dL Normal 6.4-8.2 [facility] [place] Comment on above: Performed By: #### C MP ####[facility] Cdzgxrjqbd4494[address] [place], [place] [address]Dr. Abhinav Laguna Sodium [Moles/Vol] 125 mmol/L Critically low 136-145 [facility] Comment on above: Performed By: #### C MP ####[facility] Acpbrnabqa9992[address] [place], [place] [address]Dr. Abhinav Laguna Urea nitrogen [Mass/Vol] 18.0 mg/dL Normal 7.0-18.0 [facility] [place] Comment on above: Performed By: #### C MP ####[facility] Ndzkequcfq7376[address] [place], [place] [address]Dr. Abhinav Laguna Urea nitrogen/Creatinine [Mass ratio] 16.1 mg/mg Normal [facility] [place] Comment on above: Performed By: #### C MP ####[facility] Byofopigxw030[address] [place], [place] [address]Dr. Abhinav Laguna CBC AUTO DIFFon 12-19-2021 BASO # 0.1 103/ul Normal 0.0-0.1 [facility] [place] Comment on above: Performed By: #### C BC ####[facility] Lkocytviid6529[address] [place], [place] [address]Dr. Abhinav Laguna Basophils/100 WBC (Bld) 0.7 % Normal 0.2-2.0 [facility] [place] Comment on above: Performed By: #### C BC ####[facility] Ozdfjuslye6371 [place] [id number]. Abhinav Laguna EO # 0.3 103/ul Normal 0.0-0.7 [facility] Comment on above: Performed By: #### C BC ####[facility] Urkltwwopb9889 [place] [address]Dr. Abhinav Laguna Eosinophils/100 WBC (Bld) 3.5 % Normal 0.9-7.0 [facility] Comment on above: Performed By: #### C BC ####[facility] Ibhiqngpnu417[address] [place], [place] [address]Dr. Abhinav Laguna Erythrocyte distribution width (RBC) [Ratio] 12.2 % Normal 11.0-15.0 [facility] Comment on above: Performed By: #### C BC ####[facility] Ykpkechwqt2948[address] [place], [place] [address]Dr. Abhinav Laguna Hematocrit (Bld) [Volume fraction] 44.0 % Normal 42.0-54.0 [facility] Comment on above: Performed By: #### C BC ####[facility] Nnjqwojcmp7829[address] [place], [place] [address]Dr. Abhinav Laguna Hemoglobin (Bld) [Mass/Vol] 15.4 g/dL Normal 14.0-18.0 [facility] Comment on above: Performed By: #### C BC ####[facility] Acbcxleevt357[address] [place], [place] [address]Dr. Abhinav Laguna IG # 0.02 10e3/ul Normal 0.00-0.03 [facility] Comment on above: Performed By: #### C BC ####[facility] Xlspjlqhma213[address] [place], [place] [address]Dr. Abhinav Laguna IG % 0.2 % Normal 0.0-0.5 [facility] Comment on above: Performed By: #### C BC ####[facility] Nbuffboylo5[address] [place], [place] [address]Dr. Abhinav Laguna LYMPH # 3.0 103/ul Normal 1.2-3.8 [facility] Comment on above: Performed By: #### C BC ####[facility] Yodoeobfvv5025 [place] [id number]. Abhinav Jase Lymphocytes/100 WBC (Bld) 34.8 % Normal 20.5-60.0 [facility] Comment on above: Performed By: #### C BC ####[facility] Rhyyezdbvg6223 [place] [address]Dr. Mirandagallo Laguna MANUAL DIFF REQ NO Normal [facility] Comment on above: Performed By: #### C BC ####[facility] Nnylpwkpac4771 [place] [address]Dr. Mirandagallo Laguna MCH (RBC) [Entitic mass] 30.6 pg Normal 25.9-34.0 [facility] Comment on above: Performed By: #### C BC ####[facility] Lwvvrdhedk1715 [place] [address]Dr. Abhinav Jase MCHC (RBC) [Mass/Vol] 35.0 g/dL Normal 29.9-35.2 [facility] Comment on above: Performed By: #### C BC ####[facility] Mgrwusvwpc4622 [place] [id number]. Mirandagallo Lgauna MCV (RBC) [Entitic vol] 87.5 fL Normal 80.0-94.0 [facility] Comment on above: Performed By: #### C BC ####[facility] Snoayogcak39[address] [place] [address]Dr. Abhinav Laguna MONO # 0.7 103/ul Normal 0.3-0.8 [facility] Comment on above: Performed By: #### C BC ####[facility] Dtujixkwmq1292 [place] [address]Dr. Mirandagallo Laguna Monocytes/100 WBC (Bld) 8.0 % Normal 1.7-12.0 [facility] Comment on above: Performed By: #### C BC ####[facility] Ulifvmoqcf2818[address] [place], [place] [address]Dr. Abhinav Laguna NEUT # 4.5 103/ul Normal 1.4-6.5 [facility] Comment on above: Performed By: #### C BC ####[facility] Qckbjdqwhr1765 [place] [id number]. Abhinav Laguna Neutrophils/100 WBC (Bld) 52.8 % Normal 43.0-75.0 [facility] [place] Comment on above: Performed By: #### C BC ####[facility] Zofewbcich9636 [place] [address]Dr. Abhinav Laguna Platelet mean volume (Bld) [Entitic vol] 11.1 fL Normal 9.5-13.5 [facility] [place] Comment on above: Performed By: #### C BC ####[facility] Vxeuvpaxqh7583 [place] [address]Dr. Mirandagallo Jase PLT 253 103/ul Normal 150-450 [facility] [place] Comment on above: Performed By: #### C BC ####[facility] Dihzbxcgun5177 [place] [address]Dr. Abhinav Laguna RBC 5.03 106/ul Normal 4.70-6.10 [facility] Comment on above: Performed By: #### C BC ####[facility] Ghdipzpwcc2801 [place] [id number]. Abhinav Jase WBC 8.6 103/ul Normal 4.0-11.0 [facility] [place] Comment on above: Performed By: #### C BC ####[facility] Yxbndezjxk2132 [place] [address]Dr. Abhinav Laguna PROF 14(COMP METB)on 022 Albumin [Mass/Vol] 2.8 g/dL Critically low 3.4-5.0 [facility] Comment on above: Performed By: #### C MP ####[facility] Vtkvnxkqgj9920 [place] [id number]. Abhinav Laguna Albumin/Globulin [Mass ratio] 0.9 {ratio} Normal [facility] [place] Comment on above: Performed By: #### C MP ####[facility] Jojqqliqcq3492 [place] [address]Dr. Abhinav Laguna ALP [Catalytic activity/Vol] 146 U/L Critically high 46-116 [facility] Comment on above: Performed By: #### C MP ####[facility] Qaendnkomm4652 [place] [id number]. Abhinav Laguna ALT [Catalytic activity/Vol] 47 U/L Normal 16-63 [facility] Comment on above: Performed By: #### C MP ####[facility] Hivfexfhds[address] [place], [place] [address]Dr. Abhinav Laguna Anion gap [Moles/Vol] 7.8 mmol/L Normal [facility] Comment on above: Performed By: #### C MP ####[facility] Dfhfqmkrgy522[address] [place], [place] [address]Dr. Abhinav Laguna AST [Catalytic activity/Vol] 22 U/L Normal 15-37 [facility] Comment on above: Performed By: #### C MP ####[facility] Cqjexpesvj4228[address] [place], [place] [address]Dr. Abhinav Laguna Bilirubin [Mass/Vol] 0.4 mg/dL Normal 0.2-1.0 [facility] Comment on above: Performed By: #### C MP ####[facility] Wboocqnmea1136[address] [place], [place] [address]Dr. Abhinav Laguna Calcium [Mass/Vol] 8.8 mg/dL Normal 8.5-10.1 [facility] Comment on above: Performed By: #### C MP ####[facility] Ikqetuvvoa1592[address] [place], [place] [address]Dr. Abhinav Laguna Chloride [Moles/Vol] 103 mmol/L Normal 98-107 [facility] Comment on above: Performed By: #### C MP ####[facility] Herjybdwcm9564[address] [place], [place] [address]Dr. Abhinav Laguna CO2 [Moles/Vol] 25.7 mmol/L Normal 21.0-32.0 [facility] Comment on above: Performed By: #### C MP ####[facility] Zsytirijzo9104[address] [place], [place] [address]Dr. Abhinav Laguna Creatinine [Mass/Vol] 0.79 mg/dL Normal 0.70-1.30 [facility] Comment on above: Performed By: #### C MP ####[facility] Mqkwdqljpz2906 [place] [id number]. Abhinav Laguna EGFR-AF GEORGIAN >60 Normal >=60 [facility] [place] Comment on above: Performed By: #### C MP ####[facility] Cgthnopmth6903 [place] [address]Dr. Abhinav Laguna EGFR-NON AF GEORGIAN >60 Normal >=60 [facility] [place] Comment on above: Performed By: #### C MP ####[facility] [address] [place], [place] [address]Dr. Abhinav Jase Globulin (S) [Mass/Vol] 3.1 g/dL Normal [facility] [place] Comment on above: Performed By: #### C MP ####[facility] Rbgpffcpro2135[address] [place], [place] [address]Dr. Abhinav Jase Glucose [Mass/Vol] 194 mg/dL Critically high 74-106 T [facility] Comment on above: Performed By: #### C MP ####[facility] Uoyusgzyil6218[address] [place], [place] [address]Dr. Abhinav Jase Potassium [Moles/Vol] 3.5 mmol/L Normal 3.5-5.1 [facility] [place] Comment on above: Performed By: #### C MP ####[facility] Luyayqefio9975[address] [place], [place] [address]Dr. Abhinav Jase Protein [Mass/Vol] 5.9 g/dL Critically low 6.1-8.2 Th [facility] Comment on above: Performed By: #### C MP ####[facility] Hcewpexfss3527[address] [place], [place] [address]Dr. Abhinav Jase Sodium [Moles/Vol] 133 mmol/L Critically low 136-145 Th [facility] Comment on above: Performed By: #### C MP ####[facility] Ccenduiilx3472[address] [place], [place] [address]Dr. Abhinav Jase Urea nitrogen [Mass/Vol] 11.0 mg/dL Normal 7.0-18.0 [facility] [place] Comment on above: Performed By: #### C MP ####[facility] Jaepjalmpp8127[address] [place], [place] [address]Dr. Abhinav Laguna Urea nitrogen/Creatinine [Mass ratio] 13.9 mg/mg Normal [facility] Comment on above: Performed By: #### C MP ####[facility] Nncyuvmgjs86[address] [place], [place] [address]Dr. Abhinav Jase ACETONE SERUMon 12-18-2021 ACETONE SMALL Abnormal NEGATIVE [facility] Comment on above: Performed By: #### A CETON ####[facility] Hkhsprwdnr8275[address] [place], [place] [address]Dr. Abhinav aJse CBC AUTO DIFFon 12-18-2021 BASO # 0.1 103/ul Normal 0.0-0.1 [facility] Comment on above: Performed By: #### C BC ####[facility] Bgcuitjbzb5563[address] [place], [place] [address]Dr. Abhinav Laguna Basophils/100 WBC (Bld) 0.8 % Normal 0.2-2.0 [facility] Comment on above: Performed By: #### C BC ####[facility] Ibcwqljrhj4489[address] [place], [place] [address]Dr. Abhinav Jase EO # 0.2 103/ul Normal 0.0-0.7 [facility] Comment on above: Performed By: #### C BC ####[facility] Rytapakqhy8013[address] [place], [place] [address]Dr. Mirandagallo Laguna Eosinophils/100 WBC (Bld) 1.6 % Normal 0.9-7.0 [facility] Comment on above: Performed By: #### C BC ####[facility] Rwzquitiun9476[address] [place], [place] [address]Dr. Mirandagallo Jase Erythrocyte distribution width (RBC) [Ratio] 12.2 % Normal 11.0-15.0 [facility] Comment on above: Performed By: #### C BC ####[facility] Wpatibxhri6336[address] [place], [place] [address]Dr. Mirandagallo Jase Hematocrit (Bld) [Volume fraction] 47.9 % Normal 42.0-54.0 [facility] Comment on above: Performed By: #### C BC ####[facility] Fvpszxwxrn8505[address] [place], [place] [address]Dr. Abhinav Laguna Hemoglobin (Bld) [Mass/Vol] 17.3 g/dL Normal 14.0-18.0 [facility] Comment on above: Performed By: #### C BC ####[facility] Scdsfwtizt9855 [place] [address]Dr. Abhinav Laguna IG # 0.03 10e3/ul Normal 0.00-0.03 [facility] Comment on above: Performed By: #### C BC ####[facility] Qepevkztib9450 [place] [address]Dr. Abhinav Laguna IG % 0.3 % Normal 0.0-0.5 [facility] Comment on above: Performed By: #### C BC ####[facility] Pjumdzpgji9777[address] [place], [place] [address]Dr. Abhinav Laguna LYMPH # 1.7 103/ul Normal 1.2-3.8 [facility] Comment on above: Performed By: #### C BC ####[facility] Vxchfwehtg5533[address] [place], [place] [address]Dr. Abhinav Laguna Lymphocytes/100 WBC (Bld) 18.9 % Critically low 20.5-60.0 [facility] Comment on above: Performed By: #### C BC ####[facility] Mhrydytyrz[address] [place], [place] [address]Dr. Abhinav Laguna MANUAL DIFF REQ NO Normal [facility] Comment on above: Performed By: #### C BC ####[facility] Jsoxiwyaby7598[address] [place], [place] [address]Dr. Abhinav Laguna MCH (RBC) [Entitic mass] 31.2 pg Normal 25.9-34.0 [facility] Comment on above: Performed By: #### C BC ####[facility] Lupoywlnmz0084[address] [place], [place] [address]Dr. Abhinav Laguna MCHC (RBC) [Mass/Vol] 36.1 g/dL Critically high 29.9-35.2 [facility] Comment on above: Performed By: #### C BC ####[facility] Xmmabvunnc127[address] [place], [place] [address]Dr. Abhinav Laguna MCV (RBC) [Entitic vol] 86.5 fL Normal 80.0-94.0 [facility] Comment on above: Performed By: #### C BC ####[facility] Viwgajlgqz1643[address] [place], [place] [address]DrNohemi Abhinav Laguna MONO # 0.5 103/ul Normal 0.3-0.8 [facility] Comment on above: Performed By: #### C BC ####[facility] Xzcbqnbfrp946[address] [place], [place] [address]DrNohemi Abhinav Jase Monocytes/100 WBC (Bld) 5.6 % Normal 1.7-12.0 [facility] Comment on above: Performed By: #### C BC ####[facility] Yiawruhwok8337[address] [place], [place] [address]DrNohemi Abhinav Laguna NEUT # 6.6 103/ul Critically high 1.4-6.5 [facility] Comment on above: Performed By: #### C BC ####[facility] Wobeotogby0572[address] [place], [place] [address]Dr. Abhinav Jase Neutrophils/100 WBC (Bld) 72.8 % Normal 43.0-75.0 [facility] Comment on above: Performed By: #### C BC ####[facility] Ttjukziqwv525[address] [place], [place] [address]DrNohemi Jeangallo Jase Platelet mean volume (Bld) [Entitic vol] 11.3 fL Normal 9.5-13.5 [facility] Comment on above: Performed By: #### C BC ####[facility] Mvvujlsrdr7906[address] [place], [place] [address]Dr. Mirandagallo Jase PLT 278 103/ul Normal 150-450 [facility] Comment on above: Performed By: #### C BC ####[facility] Vkgufbfobt613[address] [place], [place] [address]DrNohemi Laguna RBC 5.54 106/ul Normal 4.70-6.10 [facility] Comment on above: Performed By: #### C BC ####[facility] Snijlwuzcj0301[address] [place], [place] [address]DrNohemi Laguna WBC 9.1 103/ul Normal 4.0-11.0 [facility] Comment on above: Performed By: #### C BC ####[facility] Ljayxlxtfs[address] [place], [place] [address]Dl. Abhinav Laguna Covid-19 PCR (CVDTB)on SARS-CoV-2 (COVID-19) RNA EVERT+probe Ql (Unsp spec) Not detected Normal NOT DETECTED [facility] Comment on above: Result Comment: When diagnostic testing is negative, the possibility of a false negative should be considered inthe context of a patient's recent exposures and the presence of clinical signs and symptomsconsistent with SARS-CoV-2.This test is not yet approved or cleared by the [place] Food and Drug Administration (FDA).This test was developed by [employer], [place], [place]. The performance characteristics ofthis test were validated by [facility]. The results are not intended to beused as the sole means for clinical diagnosis or patient management decisions. The [facility] is authorized under Clinical Laboratory Improvement Amendments (CLIA) to perform high-complexity testing.This test is not yet approved or cleared by the [place] FDA. When there are no FDA-approved or cleared tests available, and other criteria are met, FDA can make tests available under an emergency access mechanism called an Emergency Use Authorization (EUA). The EUA for this test is supported by the [place] of Health and Human Service's declaration that circumstances exist to justify the emergency use of in vitro diagnostics for the detection and/or diagnosis of the virus that causes COVID-19. This EUA will remain in effect for the duration of the COVID-19 declaration justifying emergency of IVDs, unless it is terminated or revoked by the FDA (after which the test may no longer be used). Performed By: #### C VDTBH ####[facility] Zhcdsfvfrw1428 [place], [place] [address]GbNohemi Abhinav Jase ER URINE PROFILEon 2 Bilirubin Ql (U) Negative Normal NEGATIVE [facility] Comment on above: Performed By: #### E RUR ####[facility] Lcqurzstgh1366 [place], [place] [address]TmNohemi Laguna Clarity (U) CLEAR Normal CLEAR [facility] Comment on above: Performed By: #### E RUR ####[facility] Jmhiemrioh6902[address] [place], [place] [address]Dr. Abhinav Laguna Color (U) LT. YELLOW Normal YELLOW [facility] Comment on above: Performed By: #### E RUR ####[facility] Kvwnhufcoe01[address] [place], [place] [address]Dr. Abhinav Laguna ERUAHD A micrscopic examina tion will be performed if indicated. Normal [facility] Comment on above: Performed By: #### E RUR ####[facility] Lxcgqxxbrq7197[address] [place], [place] [address]Dr. Abhinav Laguna Glucose Ql (U) >1000 Abnormal NEGATIVE [facility] Comment on above: Performed By: #### E RUR ####[facility] Kssvotdflg466[address] [place], [place] [address]Dr. Abhinav Laguna Hemoglobin Ql (U) Negative Normal NEGATIVE [facility] Comment on above: Performed By: #### E RUR ####[facility] Cftqwcpjjh8[address] [place], [place] [address]Dr. Abhinav Laguna Ketones Ql (U) TRACE Abnormal NEGATIVE [facility] Comment on above: Performed By: #### E RUR ####[facility] Bechmomvqw7949[address] [place], [place] [address]Dr. Abhinav Laguna LEUKOCYTES Negative Normal NEGATIVE [facility] Comment on above: Performed By: #### E RUR ####[facility] Vucokovmhw4843[address] [place], [place] [address]Dr. Abhinav Laguna Nitrite Ql (U) Negative Normal NEGATIVE [facility] Comment on above: Performed By: #### E RUR ####[facility] Lbtlrdxuqa4837[address] [place], [place] [address]Dr. Abhinav Laguna pH (U) 6.5 [pH] Normal 5-9 [facility] Comment on above: Performed By: #### E RUR ####[facility] Qtyylydrax8326[address] [place], [place] [address]Dr. Abhinav Laguna SPEC GRAVITY <=1.005 Abnormal 1.005-<=1.0 25 [facility] [place] Comment on above: Performed By: #### E RUR ####[facility] Uunypbowyc7016 [place] [address]Dr. Abhinav Laguna UA PROTEIN Negative Normal NEGATIVE/ TRACE [facility] [place] Comment on above: Performed By: #### E RUR ####[facility] Dwxkwtswyh6875 [place] [address]Dr. Abhinav Laguna UR MICRO IND NOT INDICATED Normal [facility] [place] Comment on above: Performed By: #### E RUR ####[facility] Oaqxtphnwt0495 [place] [address]Dr. Abhniav Laguna Urobilinogen Qn (U) 0.2 {[place]'U}/dL Normal 0.2 - 1. 0 [facility] [place] Comment on above: Performed By: #### E RUR ####[facility] Cxtcyxlokv0384[address] [place], [place] [address]Dr. Abhinav Laguna PH VENOUS BLOODon 12-18-2021 PCO2 VENOUS 45.4 mmHg Normal 40.0-52.0 [facility] [place] Comment on above: Performed By: #### P HVEN ####[facility] Pwuzajiqxp20[address] [place], [place] [address]Dr. Abhinav Laguna pH VENOUS 7.385 Normal 7.330-7.430 [facility] [place] Comment on above: Performed By: #### P HVEN ####[facility] [facility] [id number] [place], [place] [address]Dr. Abhinav Laguna POINT OF CARE GLUCOSEon 05-0 Glucose [Mass/Vol] 363 mg/dL Critically high 74-106 [facility] Comment on above: Performed By: #### P OCGLUC ####[facility] [address] [place], [place] [address]Dr. Abhinav Laguna Glucose [Mass/Vol] 453 mg/dL Critically high 74-106 [facility] Comment on above: Performed By: #### P OCGLUC ####[facility] [address] [place], [place] [address]Dr. Abhinav Laguna Glucose [Mass/Vol] 444 mg/dL Critically high 74-106 [facility] Comment on above: Performed By: #### P OCGLUC ####[facility] [address] [place] [address]Dr. Abhinav Laguna Glucose [Mass/Vol] 462 mg/dL Critically high 74-106 [facility] Comment on above: Performed By: #### P OCGLUC ####[facility] [address] [place] [address]Dr. Abhinav Laguna POCGLUC >600 Critically high 74-106 [facility] Comment on above: Result Comment: Lab Draw Ordered Performed By: #### P OCGLUC ####[facility] [address] [place] [address]Dr. Abhinav Laguna POCGLUC >600 Critically high 74-106 [facility] Comment on above: Result Comment: Lab Draw Ordered Performed By: #### P OCGLUC ####[facility] [address] [place], [place] [address]Dr. Abhinav Laguna PROF 14(COMP METB)on 022 Albumin [Mass/Vol] 3.4 g/dL Normal 3.4-5.0 [facility] Comment on above: Performed By: #### C MP ####[facility] [address] [place], [place] [address]Dr. Abhinav Laguna Albumin/Globulin [Mass ratio] 0.9 {ratio} Normal [facility] Comment on above: Performed By: #### C MP ####[facility] [address] [place], [place] [address]Dr. Abhinav Laguna ALP [Catalytic activity/Vol] 268 U/L Critically high 46-116 [facility] Comment on above: Performed By: #### C MP ####[facility] [address] [place], [place] [address]Dr. Abhinav Laguna ALT [Catalytic activity/Vol] 56 U/L Normal 16-63 [facility] Comment on above: Performed By: #### C MP ####[facility] [address] [place], [place] [address]Dr. Abhinav Laguna Anion gap [Moles/Vol] 7.7 mmol/L Normal [facility] Comment on above: Performed By: #### C MP ####[facility] [address] [place], [place] [address]Dr. Abhinav Laguna AST [Catalytic activity/Vol] 20 U/L Normal 15-37 [facility] Comment on above: Performed By: #### C MP ####[facility] [address] [place], [place] [address]Dr. Abhinav Laguna Bilirubin [Mass/Vol] 0.7 mg/dL Normal 0.2-1.0 [facility] Comment on above: Performed By: #### C MP ####[facility] [address] [place], [place] [address]Dr. Abhinav Laguna Calcium [Mass/Vol] 9.9 mg/dL Normal 8.5-10.1 [facility] Comment on above: Performed By: #### C MP ####[facility] [address] [place], [place] [address]Dr. Abhinav Laguna Chloride [Moles/Vol] 91 mmol/L Critically low 98-107 [facility] Comment on above: Performed By: #### C MP ####[facility] [address] [place], [place] [address]Dr. Abhinav Laguna CO2 [Moles/Vol] 28.0 mmol/L Normal 21.0-32.0 [facility] Comment on above: Performed By: #### C MP ####[facility] [address] [place], [place] [address]Dr. Abhinav Laguna Creatinine [Mass/Vol] 1.15 mg/dL Normal 0.70-1.30 [facility] Comment on above: Performed By: #### C MP ####[facility] [address] [place], [place] [address]Dr. Mirandaagllo Jase EGFR-AF GEORGIAN >60 Normal >=60 [facility] Comment on above: Performed By: #### C MP ####[facility] [address] [place], [place] [address]Dr. Abhinav Laguna EGFR-NON AF GEORGIAN >60 Normal >=60 [facility] Comment on above: Performed By: #### C MP ####[facility] [address] [place] [address]Dr. Abhinav Laguna Globulin (S) [Mass/Vol] 3.9 g/dL Normal [facility] Comment on above: Performed By: #### C MP ####[facility] [address] [place] [id number]. Abhinav Laguna Glucose [Mass/Vol] 640 mg/dL Critically high 74-106 [facility] Comment on above: Performed By: #### C MP ####[facility] [address] [place] [address]Dr. Abhinav Laguna Potassium [Moles/Vol] 4.7 mmol/L Normal 3.5-5.1 [facility] Comment on above: Performed By: #### C MP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 [facility] March 04, 2023 8:54am Note Date/Time March 04, 2023 8:54 am [facility] [address] [place] [address] General Surgery Progress Note Signed Patient: Akbar Byrnes MR#: [id number] : 1960 Acct:[id number] Age/Sex: 62 / M Adm Date: 3 Loc: Room: [address] [place] [address] Type: ADM IN Attending Dr: Devin Starks DO Copies to: ~ Date of Service: 03/04/2023 Subjective Subjective HPI: Patient pulled his chest tube out last night. He got a chest x-ray 7 hours later, there was no pneumothorax noted. He is not having any difficulty breathing he says. He is not having any nausea or vomiting. He is hungry. He was upset that he was n.p.o. because he was having risk of aspiration. He is having a formal swallow eval today. He is understanding that he has a lot of medical problems and it is hard for him to take care of himself and he is amenable to going to a [place] facility. He has not complained of any new aches or pains in any other new locations Allergies & Medications Medications and Allergies Allergies No Known Allergies Allergy (Verified 02/14/20 01:23) Home Medications albuterol sulfate 90 mcg/actuation aerosol inhaler 90 mcg inhalation QID PRN Shortness Of Breath 02/14/20 [History Confirmed 03/14/20] amlodipine 10 mg tablet 10 mg PO DAILY htn 02/14/20 [History Confirmed 03/21/20] aspirin 81 mg tablet,delayed release 81 mg PO DAILY 02/14/20 [History Confirmed 03/14/20] atorvastatin 40 mg tablet 40 mg PO DAILY 02/14/20 [History Confirmed 03/14/20] diclofenac sodium 1 % topical gel 2 g topical TID 02/14/20 [History Confirmed 03/14/20] escitalopram oxalate 10 mg tablet 10 mg PO DAILY depression/anxiety 02/14/20 [History Confirmed 03/21/20] glimepiride 2 mg tablet 2 mg PO DAILY dm 02/14/20 [History Confirmed 03/14/20] insulin degludec 100 unit/mL (3 mL) subcutaneous pen (Tresiba FlexTouch U-100 insulin) 80 unit subcut DAILY dm 02/14/20 [History Confirmed 03/21/20] ipratropium 20 mcg-albuterol 100 mcg/actuation mist for inhalation (Combivent Respimat) 20 - 100 puff inhalation QID PRN Shortness Of Breath 02/14/20 [History Confirmed 03/14/20] ondansetron 4 mg disintegrating tablet 4 mg PO Q6H PRN Nausea 02/14/20 [History Confirmed 03/14/20] tiotropium bromide 2.5 mcg/actuation mist for inhalation (Spiriva Respimat) 2 puff inhalation DAILY 02/14/20 [History Confirmed 03/21/20] lisinopril 40 mg tablet 40 mg PO DAILY htn 03/14/20 [History Confirmed 03/21/20] pregabalin 75 mg capsule 75 mg PO BID neuropathy 03/14/20 [History Confirmed 03/21/20] hydrocodone 5 mg-acetaminophen 325 mg tablet 1 tab PO Q4-6H PRN pain 14 days #70tabs 03/21/20 [Rx] doxycycline hyclate 100 mg capsule 10 mg PO BID 03/03/23 [History Confirmed 03/03/23] metoprolol tartrate 50 mg tablet mg 03/03/23 [History] Active Medications Albuterol (Albuterol Hfa 60 Puff/8 Gram Inhaler) 2 puff INHALATION QID PRN PRN Reason: Shortness Of Breath Or Wheezing Stop: 03/02/24 01:12 Albuterol/Ipratropium (Ipratropium/Albuterol 0.5-3 Mg 3 Ml Ampul.Neb) 3 ml INHALATION QID PRN PRN Reason: Shortness of Breath Stop: 03/02/24 01:53 Ammonium Lactate (Ammonium Lactate 12% Lot 226 Gm Bottle) 1 applic TOPICAL DAILY MICH Stop: 03/06/23 08:59 Last Admin: 03/04/23 08:39 Dose: 1 applic Aspirin (Aspirin 81 Mg Tablet.) 81 mg PO DAILY MICH Stop: 03/02/24 08:59 Last Admin: 03/04/23 08:39 Dose: 81 mg Atorvastatin Calcium (Atorvastatin 40 Mg Tablet) 40 mg PO DAILY MICH Stop: 03/06/23 08:59 Last Admin: 03/04/23 08:39 Dose: 40 mg Cyclobenzaprine HCl (Cyclobenzaprine 10 Mg Tablet) 10 mg PO Q6HR PRN PRN Reason: back spasms or pain Stop: 03/06/23 01:11 Last Admin: 03/03/23 12:30 Dose: 10 mg Dextrose (Dextrose 50% In Water 25 Gm/50 Ml Syringe) 0 gm IV-PUSH PRN PRN PRN Reason: Hypoglycemia Stop: 03/02/24 02:01 Last Admin: 03/04/23 08:40 Dose: 25 gm Docusate Sodium (Docusate 100 Mg Capsule) 100 mg PO BID MICH Stop: 03/02/24 08:59 Last Admin: 03/04/23 08:39 Dose: 100 mg Doxycycline Hyclate (Doxycycline Hyclate 100 Mg Tablet) 100 mg PO BID MICH Stop: 03/05/23 23:59 Last Admin: 03/04/23 08:39 Dose: 100 mg Enoxaparin Sodium (Enoxaparin 40 Mg/0.4 Ml Syringe) 40 mg SUBCUT DAILY@1000 [facility] Stop: 03/02/24 09:59 Last Admin: 03/03/23 10:07 Dose: 40 mg Famotidine (Famotidine/Pf 20 Mg/2 Ml Vial) 20 mg IV-PUSH Q12HR MICH Stop: 03/02/24 08:59 Last Admin: 03/04/23 08:46 Dose: 20 mg Glipizide (Glipizide 5 Mg Tablet) 10 mg PO DAILY.8A [facility] Stop: 03/07/23 07:59 Glucose (Dextrose 40% Gel 15 Gm Tube) 0 gm PO PRN PRN PRN Reason: Hypoglycemia Stop: 03/02/24 02:01 Hydromorphone HCl (Hydromorphone 1 Mg/Ml Syringe) 0.5 mg IV-PUSH Q3H PRN PRN Reason: pain Last Admin: 03/03/23 19:20 Dose: 0.5 mg Hydroxyzine Pamoate (Hydroxyzine Pamoate 25 Mg Capsule) 25 mg PO BID PRN PRN Reason: Anxiety Stop: 03/06/23 01:17 Last Admin: 03/03/23 14:44 Dose: 25 mg Insulin Aspart (Insulin Aspart 300 Units/3 Ml Insuln.Pen) 0 units SUBCUT TID.WM.HS MICH; Protocol Stop: 03/02/24 07:59 Last Admin: 03/03/23 22:07 Dose: Not Given Insulin Glargine (Insulin Glargine 300 Units/3 Ml Insuln.Pen) 40 units SUBCUT DAILY.WITH.BKFAST [facility] Stop: 03/02/24 07:59 Last Admin: 03/04/23 08:39 Dose: Not Given Insulin Glargine (Insulin Glargine 300 Units/3 Ml Insuln.Pen) 40 units SUBCUT DAILY.WITH.SUPPER [facility] Stop: 03/02/24 16:59 Last Admin: 03/03/23 16:53 Dose: Not Given Ipratropium Mathis (Ipratropium Mathis 0.5 Mg/2.5 Ml Vial.Neb) 0.5 mg INHALATION QID.RESP [facility] Stop: 03/02/24 07:59 Last Admin: 03/03/23 21:40 Dose: Not Given Lisinopril (Lisinopril 2.5 Mg Tablet) 2.5 mg PO DAILY [facility] Stop: 03/06/23 08:59 Last Admin: 03/04/23 08:39 Dose: 2.5 mg Metoprolol Tartrate (Metoprolol Tartrate 25 Mg Tablet) 25 mg PO BID [facility] Stop: 03/06/23 08:59 Last Admin: 03/04/23 08:39 Dose: 25 mg Quetiapine Fumarate (Quetiapine Fumarate 50 Mg Tablet) 50 mg PO QHS [facility] Stop: 03/06/23 21:59 Last Admin: 03/03/23 21:35 Dose: 50 mg Sodium Chloride (Sodium Chloride 0.9 % 10 Ml Vial.Pf) 10 ml INJECTION PRN PRN PRN Reason: To dilute Pepcid Stop: 03/02/24 07:55 Last Admin: 03/04/23 08:46 Dose: 10 ml Tamsulosin HCl (Tamsulosin 0.4 Mg Cap.Er.24h) 0.4 mg PO DAILY [facility] Stop: 03/06/23 08:59 Last Admin: 03/04/23 08:39 Dose: 0.4 mg Exam Physical Exam Vital Signs: Temp Pulse Resp BP Pulse Ox O2 Del Method O2 Flow Rate 98.0 F 66 20 132/88 96 Room Air 2 03/04/23 04:00 03/04/23 06:00 03/04/23 06:00 03/04/23 06:00 03/04/23 06:00 03/04/23 06:00 03/03/23 10:00 Narrative: Patient is alert oriented unchanged affect from yesterday. He will answer questions. Pupils are equally round reactive light GCS 15. Extremities no focal point tenderness or joint effusion. Good strength. Abdomen is soft nontender nondistended. Lungs are clear bilaterally. Heart is regular rhythm. A.m. chest x-ray shows no pneumothorax Objective Pain Assessment Left Chest: Pain Description: Constant, Acute, Sharp and Aching Pain Intensity: 6 Intake & Output 24 hour I&O: Intake & Output 03/03/23 03/04/23 03/04/23 23:59 07:59 15:59 Intake Total 0 / 0 Output Total 0 / 401 Balance 0 / -251 0 / 0 Weight 62 kg Labs 03/04/23 04:30 03/04/23 04:30 Laboratory Results - Last 48 hrs. 03/04/23 04:30: PHA Creatinine Clear 142.19, Sodium 136, Potassium 3.6, Chloride 107, Carbon Dioxide 25.1, Anion Gap 7.5, BUN 12, Creatinine 0.48 L, Est GFR (CKD-EPI) > 60.0 03/04/23 04:30: Corrected WBC 11.8 H, Uncorrected WBC Count 11.8 H, RBC 4.43, Hgb 13.8, Hct 39.7, MCV 89.6, MCH 31.2, MCHC 34.9, RDW 14.1, Plt Count 252, MPV 8.7, Neut % (Auto) 66.9, Lymph % (Auto) 22.8, Ralls % (Auto) 8.8, Eos % (Auto) 1.1, Baso % (Auto) 0.4, Nucleat RBC Rel Count 0.1, Neut # (Auto) 7.9 H, Lymph # (Auto) 2.7, Ralls # (Auto) 1.0 H, Eos # (Auto) 0.1, Baso # (Auto) 0.1 03/03/23 16:32: POC Glucose 175 03/03/23 12:14: POC Glucose 338 03/03/23 09:56: Urine Color Yellow, Urine Appearance Clear, Urine pH 6.0, Ur Specific Dutton 1.029, Urine Protein Trace H, Urine Glucose (UA) >=1000 H, Urine Ketones Negative, Urine Occult Blood Negative, Urine Nitrite Negative, Urine Bilirubin Negative, Urine Urobilinogen Normal, Ur Leukocyte Esterase Negative, Urine RBC 0-1, Urine WBC 0-1, Ur Squamous Epith Cells None seen, Urine Bacteria None seen, Hyaline Casts None seen 03/03/23 04:06: Estimat Average Glucose 404, Hemoglobin A1c 15.7 H 03/03/23 04:06: Total Creatine Kinase 111, Troponin I High Sens 4.4 03/03/23 04:06: PHA Creatinine Clear 115.68, Sodium 135 L, Potassium 3.9, Chloride 106, Carbon Dioxide 23.7, Anion Gap 9.2, BUN 13, Creatinine 0.59 L, Est GFR (CKD-EPI) > 60.0, Glucose 243 H D, Calcium 9.1, Total Bilirubin 0.6, AST 19, ALT 20, Alkaline Phosphatase 178 H, Total Protein 6.3 L, Albumin 3.2 L, Globulin 3.1, Albumin/Globulin Ratio 1.0 03/03/23 04:06: PT 11.2, INR 1.0, APTT 21.4 L 03/03/23 04:06: Corrected WBC 12.3 H, Uncorrected WBC Count 14.2 H, RBC 4.57, Hgb 13.9, Hct 40.9, MCV 89.6, MCH 30.5, MCHC 34.1, RDW 14.0, Plt Count 188 D, MPV 9.3, Neut % (Auto) 64.8, Lymph % (Auto) 24.8, Ralls % (Auto) 7.4, Eos % (Auto) 2.1, Baso % (Auto) 0.9, Nucleat RBC Rel Count 0.2, Neut # (Auto) 8.0 H, Lymph # (Auto) 3.1, Ralls # (Auto) 0.9 H, Eos # (Auto) 0.3, Baso # (Auto) 0.1, Platelet Estimate Normal, Plt Morphology Comment Normal, RBC Morphology N/A, Polychromasia Slight, Hypochromasia Slight, Ovalocytes Slight 03/03/23 01:42: POC Glucose 312 03/02/23 21:25: Urine Color Yellow, Urine Appearance Clear, Urine pH 6.5, Ur Specific Dutton 1.028, Urine Protein Trace H, Urine Glucose (UA) >=1000 H, Urine Ketones Negative, Urine Occult Blood Negative, Urine Nitrite Negative, Urine Bilirubin Negative, Urine Urobilinogen Normal, Ur Leukocyte Esterase Negative, Urine RBC 0-1, Urine WBC 0-1, Ur Squamous Epith Cells None seen, Urine Bacteria None seen, Hyaline Casts None seen 03/02/23 21:00: Blood Type Recheck O Positive 03/02/23 20:52: POC Glucose 341, POC Glucose Comment Will notify /rn 03/02/23 20:22: Blood Type O Positive, Antibody Screen Negative 03/02/23 20:22: Ethyl Alcohol < 10, % Ethyl Alcohol TNP 03/02/23 20:22: Total Creatine Kinase 84, Troponin I High Sens 4.9 03/02/23 20:22: PHA Creatinine Clear 101.58, Sodium 135 L, Potassium 4.3, Chloride 103, Carbon Dioxide 27.1, Anion Gap 9.2, BUN 17, Creatinine 0.77, Est GFR (CKD- EPI) > 60.0, Glucose 399 H, Calcium 9.7, Total Bilirubin 0.5, AST 20, ALT 22, Alkaline Phosphatase 234 H, Total Protein 6.7, Albumin 3.5, Globulin 3.2, Albumin/Globulin Ratio 1.1 03/02/23 20:22: PT 11.2, INR 1.0, APTT 30.0 03/02/23 20:22: Corrected WBC 9.3, Uncorrected WBC Count 9.3, RBC 4.88, Hgb 15.1, Hct 44.2, MCV 90.7, MCH 31.0, MCHC 34.2, RDW 14.0, Plt Count 283, MPV 8.7, Neut % (Auto) 63.6, Lymph % (Auto) 27.3, Ralls % (Auto) 6.2, Eos % (Auto) 2.3, Baso % (Auto) 0.6, Nucleat RBC Rel Count 0.2, Neut # (Auto) 5.9, Lymph # (Auto) 2.5, Ralls # (Auto) 0.6, Eos # (Auto) 0.2, Baso # (Auto) 0.1, Monocyte Dist Width 19.54 A&P - General Surgery Assessment/Plan (1) Diabetes mellitus, type 2: Code(s): E11.9 - Type 2 diabetes mellitus without complications Status: Acute (2) Fall from height of greater than 3 feet: Plan: Patient is status post fall, he has a left-sided pneumothorax and left third rib fracture, right pulmonary contusion, left L1-3 transverse process fractures. Patient seems to have some decreased cognition, per family this is baseline, possibly secondary to his previous head injury. No other new injuries identified. As patient has not developed a repeat pneumothorax with chest tube out we will just maintain pulmonary toilet. Continue watching pulse oximetry. Swallow eval is pending. Will increase oral activity when recommendations are made. Patient is amenable to transfer to a [place] facility, and I think that is definitely in his best interest. With his medical issues and debility it would be hazardous for him to be home alone. No new injuries noted Code(s): W17.89XA - Other fall from one level to another, initial encounter Status: Acute (3) Traumatic fracture of ribs of left side with pneumothorax: Code(s): S22.42XA - Multiple fractures of ribs, left side, initial encounter for closed fracture; S27.0XXA - Traumatic pneumothorax, initial encounter Status: Acute (4) Lumbar transverse process fracture: Code(s): S32.009A - Unspecified fracture of unspecified lumbar vertebra, initial encounter for closed fracture Status: Acute (5) Right pulmonary contusion: Code(s): S27.321A - Contusion of lung, unilateral, initial encounter Status: Acute (6) History of traumatic brain injury: Code(s): Z87.820 - Personal history of traumatic brain injury Status: Acute (7) COPD (chronic obstructive pulmonary disease): Code(s): J44.9 - Chronic obstructive pulmonary disease, unspecified Status: Acute Documented By: Devin Starks DO 03/04/23 0851 Signed By: <Electronically signed by DO Devin Starks> 03/04/23 3405 [facility] Work Phone: Progress note Author Fermin Rodríguez [facility] March 04, 2023 6:07pm Note Date/Time March 04, 2023 6:08 pm [facility] [address] [place] [address] Hospitalist Progress Note Signed Patient: Akbar Byrnes MR#: [id number] : 1960 Acct:[id number] Age/Sex: 62 / M Adm Date: 3 Loc: Room: [address] [place] [address] Type: ADM IN Attending Dr: Devin Starks DO Copies to: ~ Date of Service: 03/04/2023 Subjective Subjective Narrative: I personally saw and examined patient at the bedside this afternoon. He complains of some pain in his ribs but is more alert today and apparently ate quite well at lunch and dinner today. Hypoglycemic episodes noted last night. Complains of pain with cough and to expectorate secretions. Physical Examination: GENERAL APPEARANCE: Alert, up in bed AAOx3 HEENT: NCAT, MMM NECK: Neck soft w/o masses, no JVD CARDIAC: Normal S1 and S2. No S3, S4 or murmurs. LUNGS: Clear to auscultation bilaterally. no wheeze/rhonchi/rales ABDOMEN: Positive bowel sounds. Soft, nontender. No guarding or signs of an acute abdomen MUSCULOSKELETAL: No joint erythema or tenderness. EXTREMITIES: No clubbing, cyanosis or edema PSYCHIATRIC: Appropriate mood and affect Assessment and plan: 1. Type 2 diabetes 2. Hypoglycemic episodes 3. Hypertension 4. Left-sided rib fracture 5. Lumbar transverse process fracture 6. Right pulmonary contusion 7. COPD 8. Hyperlipidemia 9. History of traumatic brain injury Patient is progressing well considering the multitude of injuries he presented with. He seems to be maintaining oxygen saturation well off of any supplementalO2. Chest tube was taken out by the patient last night and shows no pneumothorax on follow-up film. Appreciate pulmonology and general surgery recommendations. I will add I- S, PEP therapies and high-dose guaifenesin if notalready ordered. The patient's blood pressure is relatively normotensive on hishome dosing of metoprolol and lisinopril. These will be continued. Hypoglycemia last night even after his 40 units of p.m. Lantus was cut in half to 20 units. His A1c is quite elevated indicating likely poor compliance with his home insulin regimen. I have started the patient on 15 units nightly of Levemir this evening and we will continue to monitor. His oral intake today improved dramatically and I expect blood sugars to rise subsequently. Exam Physical Exam Vital Signs: Temp Pulse Resp BP Pulse Ox O2 Del Method O2 Flow Rate 98.5 F 79 18 120/81 95 Room Air 2 03/04/23 15:54 03/04/23 17:00 03/04/23 17:00 03/04/23 17:00 03/04/23 15:54 03/04/23 15:56 03/03/23 10:00 Objective Lab Results 03/04/23 04:30 03/04/23 04:30 Meds Allergies and Active Meds Allergies No Known Allergies Allergy (Verified 02/14/20 01:23) Active Meds: Active Medications Generic Name Dose Route Start Last Admin Trade Name Freq PRN Reason Stop Dose Admin Albuterol 2 puff 03/03/23 01:13 Albuterol Hfa 60 Puff/8 Gram Inhaler INHALATION 03/02/24 01:12 QID PRN Shortness Of Breath Or Wheezing Albuterol/Ipratropium 3 ml 03/03/23 01:54 Ipratropium/Albuterol 0.5-3 Mg 3 Ml Ampul.Neb INHALATION 03/02/24 01:53 QID PRN Shortness of Breath Ammonium Lactate 1 applic 03/03/23 09:00 03/04/23 08:39 Ammonium Lactate 12% Lot 226 Gm Bottle TOPICAL 03/06/23 08:59 1 applic DAILY [facility] Administration Aspirin 81 mg 03/03/23 09:00 03/04/23 08:39 Aspirin 81 Mg Tablet. PO 03/02/24 08:59 81 mg DAILY [facility]ICH Administration Atorvastatin Calcium 40 mg 03/03/23 09:00 03/04/23 08:39 Atorvastatin 40 Mg Tablet PO 03/06/23 08:59 40 mg DAILY [facility] Administration Cyclobenzaprine HCl 10 mg 03/03/23 01:12 03/03/23 12:30 Cyclobenzaprine 10 Mg Tablet PO 03/06/23 01:11 10 mg Q6HR PRN Administration back spasms or pain Dextrose 0 gm 03/03/23 02:02 03/04/23 08:40 Dextrose 50% In Water 25 Gm/50 Ml Syringe IV-PUSH 03/02/24 02:01 25 gm PRN PRN Administration Hypoglycemia Docusate Sodium 100 mg 03/03/23 09:00 03/04/23 08:39 Docusate 100 Mg Capsule PO 03/02/24 08:59 100 mg BID MICH Administration Doxycycline Hyclate 100 mg 03/03/23 09:00 03/04/23 08:39 Doxycycline Hyclate 100 Mg Tablet PO 03/05/23 23:59 100 mg BID [facility] Administration Enoxaparin Sodium 40 mg 03/03/23 10:00 03/04/23 10:53 Enoxaparin 40 Mg/0.4 Ml Syringe SUBCUT 03/02/24 09:59 40 mg DAILY@1000 [facility] Administration Famotidine 20 mg 03/03/23 09:00 03/04/23 08:46 Famotidine/Pf 20 Mg/2 Ml Vial IV-PUSH 03/02/24 08:59 20 mg Q12HR [facility] Administration Glipizide 10 mg 03/03/23 08:00 Glipizide 5 Mg Tablet PO 03/07/23 07:59 DAILY.8A [facility] Glucose 0 gm 03/03/23 02:02 Dextrose 40% Gel 15 Gm Tube PO 03/02/24 02:01 PRN PRN Hypoglycemia Hydromorphone HCl 0.5 mg 03/03/23 07:57 03/04/23 17:33 Hydromorphone 1 Mg/Ml Syringe IV-PUSH 0.5 mg Q3H PRN Administration pain Hydroxyzine Pamoate 25 mg 03/03/23 01:18 03/03/23 14:44 Hydroxyzine Pamoate 25 Mg Capsule PO 03/06/23 01:17 25 mg BID PRN Administration Anxiety Insulin Aspart 0 units 03/03/23 08:00 03/04/23 16:33 Insulin Aspart 300 Units/3 Ml Insuln.Pen SUBCUT 03/02/24 07:59 Not Given TID.WM.HS [facility] Protocol Insulin Glargine 20 units 03/04/23 22:00 Insulin Glargine 300 Units/3 Ml Insuln.Pen SUBCUT 03/03/24 21:59 QHS MICH Ipratropium Mathis 0.5 mg 03/03/23 08:00 03/04/23 16:17 Ipratropium Mathis 0.5 Mg/2.5 Ml Vial.Neb INHALATION 03/02/24 07:59 Not Given QID.RESP [facility] Lisinopril 2.5 mg 03/03/23 09:00 03/04/23 08:39 Lisinopril 2.5 Mg Tablet PO 03/06/23 08:59 2.5 mg DAILY [facility] Administration Metoprolol Tartrate 25 mg 03/03/23 09:00 03/04/23 08:39 Metoprolol Tartrate 25 Mg Tablet PO 03/06/23 08:59 25 mg BID M[facility] Administration Quetiapine Fumarate 50 mg 03/03/23 22:00 03/03/23 21:35 Quetiapine Fumarate 50 Mg Tablet PO 03/06/23 21:59 50 mg QHS [facility] Administration Sodium Chloride 10 ml 03/03/23 07:56 03/04/23 08:46 Sodium Chloride 0.9 % 10 Ml Vial.Pf INJECTION 03/02/24 07:55 10 ml PRN PRN Administration To dilute Pepcid Tamsulosin HCl 0.4 mg 03/03/23 09:00 03/04/23 08:39 Tamsulosin 0.4 Mg Cap.Er.24h PO 03/06/23 08:59 0.4 mg DAILY [facility] Administration Documented By: Fermin Rodríguez DO 03/04/23 18 01 Signed By: <Electronically signed by Fermin Rodríguez DO> 03/04/23 180 [facility] Work Phone: Progress note Author Devin Starks [facility] March 05, 2023 8:38am Note Date/Time March 05, 2023 8:38 am [facility] [address] [place] [address] General Surgery Progress Note Signed Patient: Akbar Byrnes MR#: [id number] : 1960 Acct:[id number] Age/Sex: 62 / M Adm Date: 3 Loc: Room: [address] [place] [address] Type: ADM IN Attending Dr: Devin Starks DO Copies to: ~ Date of Service: 03/05/2023 Subjective Subjective HPI: Patient ate to hold trays of food last night and his agitated that he wants his breakfast this morning. He will not allow nursing to do any interventions for him such as check pulse ox as he does not want things on him. He is not having any shortness of breath. He is not having any chest pain. He is not having anynausea or vomiting. He does have some pain at his ribs but it is tolerable. Allergies & Medications Medications and Allergies Allergies No Known Allergies Allergy (Verified 02/14/20 01:23) Home Medications albuterol sulfate 90 mcg/actuation aerosol inhaler 90 mcg inhalation QID PRN Shortness Of Breath 02/14/20 [History Confirmed 03/14/20] amlodipine 10 mg tablet 10 mg PO DAILY htn 02/14/20 [History Confirmed 03/21/20] aspirin 81 mg tablet,delayed release 81 mg PO DAILY 02/14/20 [History Confirmed 03/14/20] atorvastatin 40 mg tablet 40 mg PO DAILY 02/14/20 [History Confirmed 03/14/20] diclofenac sodium 1 % topical gel 2 g topical TID 02/14/20 [History Confirmed 03/14/20] escitalopram oxalate 10 mg tablet 10 mg PO DAILY depression/anxiety 02/14/20 [History Confirmed 03/21/20] glimepiride 2 mg tablet 2 mg PO DAILY dm 02/14/20 [History Confirmed 03/14/20] insulin degludec 100 unit/mL (3 mL) subcutaneous pen (Tresiba FlexTouch U-100 insulin) 80 unit subcut DAILY dm 02/14/20 [History Confirmed 03/21/20] ipratropium 20 mcg-albuterol 100 mcg/actuation mist for inhalation (Combivent Respimat) 20 - 100 puff inhalation QID PRN Shortness Of Breath 02/14/20 [History Confirmed 03/14/20] ondansetron 4 mg disintegrating tablet 4 mg PO Q6H PRN Nausea 02/14/20 [History Confirmed 03/14/20] tiotropium bromide 2.5 mcg/actuation mist for inhalation (Spiriva Respimat) 2 puff inhalation DAILY 02/14/20 [History Confirmed 03/21/20] lisinopril 40 mg tablet 40 mg PO DAILY htn 03/14/20 [History Confirmed 03/21/20] pregabalin 75 mg capsule 75 mg PO BID neuropathy 03/14/20 [History Confirmed 03/21/20] hydrocodone 5 mg-acetaminophen 325 mg tablet 1 tab PO Q4-6H PRN pain 14 days #70tabs 03/21/20 [Rx] doxycycline hyclate 100 mg capsule 10 mg PO BID 03/03/23 [History Confirmed 03/03/23] metoprolol tartrate 50 mg tablet mg 03/03/23 [History] Active Medications Albuterol (Albuterol Hfa 60 Puff/8 Gram Inhaler) 2 puff INHALATION QID PRN PRN Reason: Shortness Of Breath Or Wheezing Stop: 03/02/24 01:12 Albuterol/Ipratropium (Ipratropium/Albuterol 0.5-3 Mg 3 Ml Ampul.Neb) 3 ml INHALATION QID PRN PRN Reason: Shortness of Breath Stop: 03/02/24 01:53 Ammonium Lactate (Ammonium Lactate 12% Lot 226 Gm Bottle) 1 applic TOPICAL DAILY [facility] Stop: 03/06/23 08:59 Last Admin: 03/04/23 08:39 Dose: 1 applic Aspirin (Aspirin 81 Mg Tablet.) 81 mg PO DAILY [facility] Stop: 03/02/24 08:59 Last Admin: 03/04/23 08:39 Dose: 81 mg Atorvastatin Calcium (Atorvastatin 40 Mg Tablet) 40 mg PO DAILY [facility] Stop: 03/06/23 08:59 Last Admin: 03/04/23 08:39 Dose: 40 mg Cyclobenzaprine HCl (Cyclobenzaprine 10 Mg Tablet) 10 mg PO Q6HR PRN PRN Reason: back spasms or pain Stop: 03/06/23 01:11 Last Admin: 03/04/23 21:39 Dose: 10 mg Dextrose (Dextrose 50% In Water 25 Gm/50 Ml Syringe) 0 gm IV-PUSH PRN PRN PRN Reason: Hypoglycemia Stop: 03/02/24 02:01 Last Admin: 03/04/23 08:40 Dose: 25 gm Docusate Sodium (Docusate 100 Mg Capsule) 100 mg PO BID [facility] Stop: 03/02/24 08:59 Last Admin: 03/04/23 21:39 Dose: 100 mg Doxycycline Hyclate (Doxycycline Hyclate 100 Mg Tablet) 100 mg PO BID [facility] Stop: 03/05/23 23:59 Last Admin: 03/04/23 21:39 Dose: 100 mg Enoxaparin Sodium (Enoxaparin 40 Mg/0.4 Ml Syringe) 40 mg SUBCUT DAILY@1000 [facility] Stop: 03/02/24 09:59 Last Admin: 03/04/23 10:53 Dose: 40 mg Famotidine (Famotidine/Pf 20 Mg/2 Ml Vial) 20 mg IV-PUSH Q12HR [facility] Stop: 03/02/24 08:59 Last Admin: 03/04/23 21:39 Dose: 20 mg Glipizide (Glipizide 5 Mg Tablet) 10 mg PO DAILY.8A [facility] Stop: 03/07/23 07:59 Glucose (Dextrose 40% Gel 15 Gm Tube) 0 gm PO PRN PRN PRN Reason: Hypoglycemia Stop: 03/02/24 02:01 Hydromorphone HCl (Hydromorphone 1 Mg/Ml Syringe) 0.5 mg IV-PUSH Q3H PRN PRN Reason: pain Last Admin: 03/05/23 05:41 Dose: 0.5 mg Hydroxyzine Pamoate (Hydroxyzine Pamoate 25 Mg Capsule) 25 mg PO BID PRN PRN Reason: Anxiety Stop: 03/06/23 01:17 Last Admin: 03/05/23 05:09 Dose: 25 mg Insulin Aspart (Insulin Aspart 300 Units/3 Ml Insuln.Pen) 0 units SUBCUT TID.WM.HS [facility]; Protocol Stop: 03/02/24 07:59 Last Admin: 03/04/23 21:41 Dose: 3 units Insulin Glargine (Insulin Glargine 300 Units/3 Ml Insuln.Pen) 20 units SUBCUT QHS [facility] Stop: 03/03/24 21:59 Last Admin: 03/04/23 21:41 Dose: 20 units Ipratropium Mathis (Ipratropium Mathis 0.5 Mg/2.5 Ml Vial.Neb) 0.5 mg INHALATION QID.RESP [facility] Stop: 03/02/24 07:59 Last Admin: 03/04/23 20:46 Dose: 0.5 mg Lisinopril (Lisinopril 2.5 Mg Tablet) 2.5 mg PO DAILY [facility] Stop: 03/06/23 08:59 Last Admin: 03/04/23 08:39 Dose: 2.5 mg Metoprolol Tartrate (Metoprolol Tartrate 25 Mg Tablet) 25 mg PO BID [facility] Stop: 03/06/23 08:59 Last Admin: 03/04/23 23:15 Dose: 25 mg Quetiapine Fumarate (Quetiapine Fumarate 50 Mg Tablet) 50 mg PO QHS [facility] Stop: 03/06/23 21:59 Last Admin: 03/04/23 21:39 Dose: 50 mg Sodium Chloride (Sodium Chloride 0.9 % 10 Ml Vial.Pf) 10 ml INJECTION PRN PRN PRN Reason: To dilute Pepcid Stop: 03/02/24 07:55 Last Admin: 03/04/23 21:39 Dose: 10 ml Tamsulosin HCl (Tamsulosin 0.4 Mg Cap.Er.24h) 0.4 mg PO DAILY [facility] Stop: 03/06/23 08:59 Last Admin: 03/04/23 08:39 Dose: 0.4 mg Exam Physical Exam Vital Signs: Temp Pulse Resp BP Pulse Ox O2 Del Method O2 Flow Rate 98.2 F 70 21 119/82 99 Room Air 2 03/05/23 04:00 03/05/23 04:00 03/05/23 04:00 03/05/23 06:16 03/05/23 04:00 03/05/23 04:00 03/03/23 10:00 Narrative: Patient is comfortable no acute distress he is GCS 15. Heart is regular rate. Lungs are clear. Pulse ox is 99%. Abdomen is soft. No evidence of any new injuries Objective Pain Assessment Left Chest: Pain Description: Constant, Acute, Sharp and Aching Pain Intensity: 6 Intake & Output 24 hour I&O: Intake & Output 03/04/23 03/05/23 03/05/23 23:59 07:59 15:59 Intake Total 360 / 610 180 / 180 Output Total 150 / 150 Balance 360 / 610 30 / 30 Weight 61 kg Labs 03/04/23 04:30 03/04/23 04:30 Laboratory Results - Last 48 hrs. 03/05/23 07:22: POC Glucose 98 03/04/23 21:37: POC Glucose 176, POC Glucose Comment Glu2: cleaned meter 03/04/23 16:31: POC Glucose 92 03/04/23 09:12: POC Glucose 174 03/04/23 08:33: POC Glucose 52 L*, POC Glucose Comment 03/04/23 04:30: PHA Creatinine Clear 142.19, Sodium 136, Potassium 3.6, Chloride 107, Carbon Dioxide 25.1, Anion Gap 7.5, BUN 12, Creatinine 0.48 L, Est GFR (CKD-EPI) > 60.0 03/04/23 04:30: Corrected WBC 11.8 H, Uncorrected WBC Count 11.8 H, RBC 4.43, Hgb 13.8, Hct 39.7, MCV 89.6, MCH 31.2, MCHC 34.9, RDW 14.1, Plt Count 252, MPV 8.7, Neut % (Auto) 66.9, Lymph % (Auto) 22.8, Ralls % (Auto) 8.8, Eos % (Auto) 1.1, Baso % (Auto) 0.4, Nucleat RBC Rel Count 0.1, Neut # (Auto) 7.9 H, Lymph # (Auto) 2.7, Ralls # (Auto) 1.0 H, Eos # (Auto) 0.1, Baso # (Auto) 0.1 03/03/23 22:23: POC Glucose 177 03/03/23 21:48: POC Glucose 42 L* 03/03/23 16:32: POC Glucose 175 03/03/23 12:14: POC Glucose 338 03/03/23 09:56: Urine Color Yellow, Urine Appearance Clear, Urine pH 6.0, Ur Specific Dutton 1.029, Urine Protein Trace H, Urine Glucose (UA) >=1000 H, Urine Ketones Negative, Urine Occult Blood Negative, Urine Nitrite Negative, Urine Bilirubin Negative, Urine Urobilinogen Normal, Ur Leukocyte Esterase Negative, Urine RBC 0-1, Urine WBC 0-1, Ur Squamous Epith Cells None seen, Urine Bacteria None seen, Hyaline Casts None seen 03/03/23 04:06: Estimat Average Glucose 404, Hemoglobin A1c 15.7 H A&P - General Surgery Assessment/Plan (1) Diabetes mellitus, type 2: Code(s): E11.9 - Type 2 diabetes mellitus without complications Status: Acute (2) Fall from height of greater than 3 feet: Plan: Patient is status post fall, he has a left-sided pneumothorax and left third rib fracture, right pulmonary contusion, left L1-3 transverse process fractures. Patient seems to have some decreased cognition, per family this is baseline, possibly secondary to his previous head injury. No other new injuries identified. Increase activity. Continue diet. Plan [facility] at [place] [facility]. Pending approval by insurance Code(s): W17.89XA - Other fall from one level to another, initial encounter Status: Acute (3) Traumatic fracture of ribs of left side with pneumothorax: Code(s): S22.42XA - Multiple fractures of ribs, left side, initial encounter for closed fracture; S27.0XXA - Traumatic pneumothorax, initial encounter Status: Acute (4) Lumbar transverse process fracture: Code(s): S32.009A - Unspecified fracture of unspecified lumbar vertebra, initial encounter for closed fracture Status: Acute (5) Right pulmonary contusion: Code(s): S27.321A - Contusion of lung, unilateral, initial encounter Status: Acute (6) History of traumatic brain injury: Code(s): Z87.820 - Personal history of traumatic brain injury Status: Acute (7) COPD (chronic obstructive pulmonary disease): Code(s): J44.9 - Chronic obstructive pulmonary disease, unspecified Status: Acute Documented By: Devin Starks DO 03/05/23 0837 Signed By: <Electronically signed by DO Devin Starks> 03/05/23 0838 [facility] Work Phone: Progress note Author Fermin Rodríguez [facility] March 05, 2023 6:57pm Note Date/Time March 05, 2023 6:57 pm [facility] [address] [place] [address] Hospitalist Progress Note Signed Patient: Akbar Byrnes MR#: [id number] : 1960 Acct:[id number] Age/Sex: 62 / M Adm Date: 3 Loc: N Room: 5L7348-9 Type: ADM IN Attending Dr: Devin Starks DO Copies to: ~ Date of Service: 03/05/2023 Subjective Subjective Narrative: I personally saw and examined patient at the bedside this afternoon. No new complaints. Now on the MedSur floor. Physical Examination: GENERAL APPEARANCE: Alert, up in bed AAOx3 HEENT: NCAT, MMM NECK: Neck soft w/o masses, no JVD CARDIAC: Normal S1 and S2. No S3, S4 or murmurs. LUNGS: Clear to auscultation bilaterally. no wheeze/rhonchi/rales ABDOMEN: Positive bowel sounds. Soft, nontender. No guarding or signs of an acute abdomen MUSCULOSKELETAL: No joint erythema or tenderness. EXTREMITIES: No clubbing, cyanosis or edema PSYCHIATRIC: Appropriate mood and affect Assessment and plan: 1. Type 2 diabetes 2. Hypoglycemic episodes 3. Hypertension 4. Left-sided rib fracture 5. Lumbar transverse process fracture 6. Right pulmonary contusion 7. COPD 8. Hyperlipidemia 9. History of traumatic brain injury Patient is progressing well considering the multitude of injuries he presented with. Appreciate pulmonology and general surgery recommendations. I have now added I- S, PEP therapies and high-dose guaifenesin.if not already ordered. The patient's blood pressure is relatively normotensive on his home dosing of metoprolol and lisinopril. These will be continued. Hypoglycemia last night even after his 40 units of p.m. Lantus was cut in half to 20 units. His A1c is quite elevated indicating likely poor compliance with his home insulin regimen. Patient's blood sugar however seems to be under relatively good control with 15 units of Lantus nightly and sliding scale. Awaiting pre-CERT placement. Exam Physical Exam Vital Signs: Temp Pulse Resp BP Pulse Ox O2 Del Method O2 Flow Rate 97.9 F 79 14 135/89 96 Room Air 2 03/05/23 16:00 03/05/23 16:00 03/05/23 16:00 03/05/23 16:00 03/05/23 16:00 03/05/23 16:00 03/03/23 10:00 Objective Lab Results 03/04/23 04:30 03/04/23 04:30 Meds Allergies and Active Meds Allergies No Known Allergies Allergy (Verified 02/14/20 01:23) Active Meds: Active Medications Generic Name Dose Route Start Last Admin Trade Name Freq PRN Reason Stop Dose Admin Hydrocodone Bitart/Acetaminophen 1 tab 03/05/23 12:42 03/05/23 14:56 Hydrocodone/Acetaminophen 5-325 Mg Tablet PO 1 tab Q4H PRN Administration Pain Albuterol 2 puff 03/03/23 01:13 Albuterol Hfa 60 Puff/8 Gram Inhaler INHALATION 03/02/24 01:12 QID PRN Shortness Of Breath Or Wheezing Albuterol/Ipratropium 3 ml 03/03/23 01:54 Ipratropium/Albuterol 0.5-3 Mg 3 Ml Ampul.Neb INHALATION 03/02/24 01:53 QID PRN Shortness of Breath Ammonium Lactate 1 applic 03/03/23 09:00 03/05/23 08:52 Ammonium Lactate 12% Lot 226 Gm Bottle TOPICAL 03/06/23 08:59 1 applic DAILY [facility] Administration Aspirin 81 mg 03/03/23 09:00 03/05/23 08:51 Aspirin 81 Mg Tablet. PO 03/02/24 08:59 81 mg DAILY [facility] Administration Atorvastatin Calcium 40 mg 03/03/23 09:00 03/05/23 08:51 Atorvastatin 40 Mg Tablet PO 03/06/23 08:59 40 mg DAILY [facility] Administration Cyclobenzaprine HCl 10 mg 03/03/23 01:12 03/05/23 14:56 Cyclobenzaprine 10 Mg Tablet PO 03/06/23 01:11 10 mg Q6HR PRN Administration back spasms or pain Dextrose 0 gm 03/03/23 02:02 03/04/23 08:40 Dextrose 50% In Water 25 Gm/50 Ml Syringe IV-PUSH 03/02/24 02:01 25 gm PRN PRN Administration Hypoglycemia Docusate Sodium 100 mg 03/03/23 09:00 03/05/23 08:51 Docusate 100 Mg Capsule PO 03/02/24 08:59 100 mg BID [facility] Administration Doxycycline Hyclate 100 mg 03/03/23 09:00 03/05/23 08:51 Doxycycline Hyclate 100 Mg Tablet PO 03/05/23 23:59 100 mg BID [facility] Administration Enoxaparin Sodium 40 mg 03/03/23 10:00 03/05/23 10:18 Enoxaparin 40 Mg/0.4 Ml Syringe SUBCUT 03/02/24 09:59 40 mg DAILY@1000 [facility] Administration Famotidine 20 mg 03/05/23 09:00 03/05/23 08:54 Famotidine 20 Mg Tablet PO 03/04/24 08:59 Not Given BID [facility] Glipizide 10 mg 03/03/23 08:00 Glipizide 5 Mg Tablet PO 03/07/23 07:59 DAILY.8A [facility] Glucose 0 gm 03/03/23 02:02 Dextrose 40% Gel 15 Gm Tube PO 03/02/24 02:01 PRN PRN Hypoglycemia Guaifenesin 1,200 mg 03/05/23 21:00 Guaifenesin 600 Mg Tab.Er.12h PO 03/04/24 20:59 BID [facility] Hydromorphone HCl 0.5 mg 03/03/23 07:57 03/05/23 18:14 Hydromorphone 1 Mg/Ml Syringe IV-PUSH 0.5 mg Q3H PRN Administration pain Hydroxyzine Pamoate 25 mg 03/03/23 01:18 03/05/23 05:09 Hydroxyzine Pamoate 25 Mg Capsule PO 03/06/23 01:17 25 mg BID PRN Administration Anxiety Insulin Aspart 0 units 03/03/23 08:00 03/05/23 18:09 Insulin Aspart 300 Units/3 Ml Insuln.Pen SUBCUT 03/02/24 07:59 8 units TID.WM.HS [facility] Administration Protocol Insulin Glargine 20 units 03/04/23 22:00 03/04/23 21:41 Insulin Glargine 300 Units/3 Ml Insuln.Pen SUBCUT 03/03/24 21:59 20 units QHS [facility] Administration Ipratropium Mathis 0.5 mg 03/03/23 08:00 03/05/23 15:45 Ipratropium Mathis 0.5 Mg/2.5 Ml Vial.Neb INHALATION 03/02/24 07:59 0.5 mg QID.RESP [facility] Administration Lisinopril 2.5 mg 03/03/23 09:00 03/05/23 08:51 Lisinopril 2.5 Mg Tablet PO 03/06/23 08:59 2.5 mg DAILY [facility] Administration Metoprolol Tartrate 25 mg 03/03/23 09:00 03/05/23 08:51 Metoprolol Tartrate 25 Mg Tablet PO 03/06/23 08:59 25 mg BID [facility] Administration Pregabalin 75 mg 03/05/23 13:00 03/05/23 13:14 Pregabalin 75 Mg Capsule PO 09/01/23 12:59 75 mg BID [facility] Administration Quetiapine Fumarate 50 mg 03/03/23 22:00 03/04/23 21:39 Quetiapine Fumarate 50 Mg Tablet PO 03/06/23 21:59 50 mg QHS [facility] Administration Tamsulosin HCl 0.4 mg 03/03/23 09:00 03/05/23 08:52 Tamsulosin 0.4 Mg Cap.Er.24h PO 03/06/23 08:59 0.4 mg DAILY [facility] Administration Documented By: Fermin Rodríguez DO 03/05/23 18 55 Signed By: <Electronically signed by Fermin Rodríguez, DO> 03/05/23 8398 [facility] Work Phone: Progress note Author Devin Starks [facility] March 06, 2023 8:49am Note Date/Time March 06, 2023 8:43 am [facility] [address] [place] [address] General Surgery Progress Note Signed Patient: Akbar Byrnes MR#: [id number] : 1960 Acct:[id number] Age/Sex: 62 / M Adm Date: 3 Loc: Room: [address] [place] [address] Type: ADM IN Attending Dr: Devin Starks DO Copies to: ~ Date of Service: 03/06/2023 Subjective Subjective HPI: Patient's only complaint is that he does not like the nectar thickened liquids. However he is not choking with him. He is eating without difficulty. He does have some pain at his rib and back. It is manageable. Allergies & Medications Medications and Allergies Allergies No Known Allergies Allergy (Verified 02/14/20 01:23) Home Medications albuterol sulfate 90 mcg/actuation aerosol inhaler 90 mcg inhalation QID PRN Shortness Of Breath 02/14/20 [History Confirmed 03/14/20] amlodipine 10 mg tablet 10 mg PO DAILY htn 02/14/20 [History Confirmed 03/21/20] aspirin 81 mg tablet,delayed release 81 mg PO DAILY 02/14/20 [History Confirmed 03/14/20] atorvastatin 40 mg tablet 40 mg PO DAILY 02/14/20 [History Confirmed 03/14/20] diclofenac sodium 1 % topical gel 2 g topical TID 02/14/20 [History Confirmed 03/14/20] escitalopram oxalate 10 mg tablet 10 mg PO DAILY depression/anxiety 02/14/20 [History Confirmed 03/21/20] glimepiride 2 mg tablet 2 mg PO DAILY dm 02/14/20 [History Confirmed 03/14/20] insulin degludec 100 unit/mL (3 mL) subcutaneous pen (Tresiba FlexTouch U-100 insulin) 80 unit subcut DAILY dm 02/14/20 [History Confirmed 03/21/20] ipratropium 20 mcg-albuterol 100 mcg/actuation mist for inhalation (Combivent Respimat) 20 - 100 puff inhalation QID PRN Shortness Of Breath 02/14/20 [History Confirmed 03/14/20] ondansetron 4 mg disintegrating tablet 4 mg PO Q6H PRN Nausea 02/14/20 [History Confirmed 03/14/20] tiotropium bromide 2.5 mcg/actuation mist for inhalation (Spiriva Respimat) 2 puff inhalation DAILY 02/14/20 [History Confirmed 03/21/20] lisinopril 40 mg tablet 40 mg PO DAILY htn 03/14/20 [History Confirmed 03/21/20] pregabalin 75 mg capsule 75 mg PO BID neuropathy 03/14/20 [History Confirmed 03/21/20] hydrocodone 5 mg-acetaminophen 325 mg tablet 1 tab PO Q4-6H PRN pain 14 days #70tabs 03/21/20 [Rx] doxycycline hyclate 100 mg capsule 10 mg PO BID 03/03/23 [History Confirmed 03/03/23] metoprolol tartrate 50 mg tablet mg 03/03/23 [History] Active Medications Hydrocodone Bitart/Acetaminophen (Hydrocodone/Acetaminophen 5-325 Mg Tablet) 1 tab PO Q4H PRN PRN Reason: Pain Last Admin: 03/06/23 03:17 Dose: 1 tab Albuterol (Albuterol Hfa 60 Puff/8 Gram Inhaler) 2 puff INHALATION QID PRN PRN Reason: Shortness Of Breath Or Wheezing Stop: 03/02/24 01:12 Albuterol/Ipratropium (Ipratropium/Albuterol 0.5-3 Mg 3 Ml Ampul.Neb) 3 ml INHALATION QID PRN PRN Reason: Shortness of Breath Stop: 03/02/24 01:53 Last Admin: 03/05/23 21:59 Dose: 3 ml Ammonium Lactate (Ammonium Lactate 12% Lot 226 Gm Bottle) 1 applic TOPICAL DAILY [facility] Stop: 03/06/23 08:59 Last Admin: 03/05/23 08:52 Dose: 1 applic Aspirin (Aspirin 81 Mg Tablet.Dr) 81 mg PO DAILY [facility] Stop: 03/02/24 08:59 Last Admin: 03/05/23 08:51 Dose: 81 mg Atorvastatin Calcium (Atorvastatin 40 Mg Tablet) 40 mg PO DAILY [facility] Stop: 03/06/23 08:59 Last Admin: 03/05/23 08:51 Dose: 40 mg Dextrose (Dextrose 50% In Water 25 Gm/50 Ml Syringe) 0 gm IV-PUSH PRN PRN PRN Reason: Hypoglycemia Stop: 03/02/24 02:01 Last Admin: 03/04/23 08:40 Dose: 25 gm Docusate Sodium (Docusate 100 Mg Capsule) 100 mg PO BID [facility] Stop: 03/02/24 08:59 Last Admin: 03/05/23 22:15 Dose: 100 mg Enoxaparin Sodium (Enoxaparin 40 Mg/0.4 Ml Syringe) 40 mg SUBCUT DAILY@1000 [facility] Stop: 03/02/24 09:59 Last Admin: 03/05/23 10:18 Dose: 40 mg Famotidine (Famotidine 20 Mg Tablet) 20 mg PO BID [facility] Stop: 03/04/24 08:59 Last Admin: 03/05/23 22:15 Dose: 20 mg Glipizide (Glipizide 5 Mg Tablet) 10 mg PO DAILY.8A [facility] Stop: 03/07/23 07:59 Glucose (Dextrose 40% Gel 15 Gm Tube) 0 gm PO PRN PRN PRN Reason: Hypoglycemia Stop: 03/02/24 02:01 Guaifenesin (Guaifenesin 600 Mg Tab.Er.12h) 1,200 mg PO BID [facility] Stop: 03/04/24 20:59 Last Admin: 03/05/23 22:14 Dose: 1,200 mg Hydromorphone HCl (Hydromorphone 1 Mg/Ml Syringe) 0.5 mg IV-PUSH Q3H PRN PRN Reason: pain Last Admin: 03/06/23 06:43 Dose: 0.5 mg Insulin Aspart (Insulin Aspart 300 Units/3 Ml Insuln.Pen) 0 units SUBCUT TID.WM.[facility]; Protocol Stop: 07/17/24 07:59 Last Admin: 03/05/23 22:16 Dose: 8 units Insulin Glargine (Insulin Glargine 300 Units/3 Ml Insuln.Pen) 20 units SUBCUT QHS [facility] Stop: 03/03/24 21:59 Last Admin: 03/05/23 22:54 Dose: 20 units Ipratropium Mathis (Ipratropium Mathis 0.5 Mg/2.5 Ml Vial.Neb) 0.5 mg INHALATION QID.RESP [facility] Stop: 03/02/24 07:59 Last Admin: 03/05/23 20:13 Dose: Not Given Lisinopril (Lisinopril 2.5 Mg Tablet) 2.5 mg PO DAILY [facility] Stop: 03/06/23 08:59 Last Admin: 03/05/23 08:51 Dose: 2.5 mg Metoprolol Tartrate (Metoprolol Tartrate 25 Mg Tablet) 25 mg PO BID [facility] Stop: 03/06/23 08:59 Last Admin: 03/05/23 22:16 Dose: 25 mg Pregabalin (Pregabalin 75 Mg Capsule) 75 mg PO BID [facility] Stop: 09/01/23 12:59 Last Admin: 03/05/23 22:15 Dose: 75 mg Quetiapine Fumarate (Quetiapine Fumarate 50 Mg Tablet) 50 mg PO QHS [facility] Stop: 03/06/23 21:59 Last Admin: 03/05/23 22:15 Dose: 50 mg Tamsulosin HCl (Tamsulosin 0.4 Mg Cap.Er.24h) 0.4 mg PO DAILY [facility] Stop: 03/06/23 08:59 Last Admin: 03/05/23 08:52 Dose: 0.4 mg Exam Physical Exam Vital Signs: Temp Pulse Resp BP Pulse Ox O2 Del Method O2 Flow Rate 98.0 F 83 12 129/85 95 Room Air 2 03/06/23 07:44 03/06/23 07:44 03/06/23 07:44 03/06/23 07:44 03/06/23 07:44 03/06/23 07:44 03/03/23 10:00 Narrative: Patient is comfortable no acute distress he is GCS 15. Heart is regular rate. He is soft-spoken but conversant. Lungs are clear. Pulse ox is 99%. Abdomen is soft. No evidence of any new injuries on head to toe exam Objective Pain Assessment Left Chest: Pain Description: Constant, Acute, Sharp and Aching Pain Intensity: 6 Intake & Output 24 hour I&O: Intake & Output 03/05/23 03/06/23 03/06/23 23:59 07:59 15:59 Intake Total 200 / 990 250 / 250 Balance 200 / 840 250 / 250 Weight 61.3 kg Labs 03/04/23 04:30 03/04/23 04:30 Laboratory Results - Last 48 hrs. 03/05/23 11:19: POC Glucose 170 03/05/23 07:22: POC Glucose 98 03/05/23 05:01: POC Glucose 102 03/04/23 21:37: POC Glucose 176, POC Glucose Comment Glu2: cleaned meter 03/04/23 16:31: POC Glucose 92 03/04/23 09:12: POC Glucose 174 03/04/23 08:33: POC Glucose 52 L*, POC Glucose Comment 03/03/23 22:23: POC Glucose 177 03/03/23 21:48: POC Glucose 42 L* A&P - General Surgery Assessment/Plan (1) Diabetes mellitus, type 2: Code(s): E11.9 - Type 2 diabetes mellitus without complications Status: Acute (2) Fall from height of greater than 3 feet: Plan: Patient is status post fall, he has a left-sided pneumothorax and left third rib fracture, right pulmonary contusion, left L1-3 transverse process fractures. Patient seems to have some decreased cognition although that has been improving, possibly secondary to his previous head injury. No other new injuries identified. Patient is okay for transfer to [place] [facility]. Code(s): W17.89XA - Other fall from one level to another, initial encounter Status: Acute (3) Traumatic fracture of ribs of left side with pneumothorax: Code(s): S22.42XA - Multiple fractures of ribs, left side, initial encounter for closed fracture; S27.0XXA - Traumatic pneumothorax, initial encounter Status: Acute (4) Lumbar transverse process fracture: Code(s): S32.009A - Unspecified fracture of unspecified lumbar vertebra, initial encounter for closed fracture Status: Acute (5) Right pulmonary contusion: Code(s): S27.321A - Contusion of lung, unilateral, initial encounter Status: Acute (6) History of traumatic brain injury: Code(s): Z87.820 - Personal history of traumatic brain injury Status: Acute (7) COPD (chronic obstructive pulmonary disease): Code(s): J44.9 - Chronic obstructive pulmonary disease, unspecified Status: Acute Documented By: Devin Starks DO 03/06/23 0841 Signed By: <Electronically signed by DO Devin Starks> 03/06/23 0849 [facility] Work Phone: progress note Author Giuseppe Bailey [facility] March 06, 2023 1:37pm Note Date/Time March 06, 2023 1:37 pm [facility] [address] [place], [place] [id number] Progress Note Signed Patient: Akbar Byrnes MR#: [id number] : 1960 Acct:[id number] Age/Sex: 62 / M Adm Date: 3 Loc: 4N Room: [address] [place] [address] Type: ADM IN Attending Dr: Devin Starks DO Copies to: ~ Date of Service: 03/06/2023 Progress Narrative Note PROGRESS NOTE Progress Note: Patient is stable on room air with no recurrence of pneumothorax with chest tuberemoved and has been transferred out of the ICU. Pulmonary/critical care medicine will sign off. Please call if we can be of further assistance. Documented By: Giuseppe Bailey MD 3 1336 Signed By: <Electronically signed by MD Giuseppe Bailey> 03/06/23 1337 [facility] Work Phone: progress note Author Fermin Rodríguez [facility] March 06, 2023 4:08pm Note Date/Time March 06, 2023 4:08 pm [facility] [address] [place], [place] [id number] Hospitalist Progress Note Signed Patient: Akbar Byrnes MR#: [id number] : 1960 Acct:[id number] Age/Sex: 62 / M Adm Date: 3 Loc: 4N Room: [id number] Type: ADM IN Attending Dr: Devin Starks DO Copies to: ~ Date of Service: 03/06/2023 Subjective Subjective Narrative: I personally saw and examined patient at the bedside this afternoon. No new complaints. Now [facility] floor. Physical Examination: GENERAL APPEARANCE: Alert, up in bed AAOx3 HEENT: NCAT, MMM NECK: Neck soft w/o masses, no JVD CARDIAC: Normal S1 and S2. No S3, S4 or murmurs. LUNGS: Clear to auscultation bilaterally. no wheeze/rhonchi/rales ABDOMEN: Positive bowel sounds. Soft, nontender. No guarding or signs of an acute abdomen MUSCULOSKELETAL: No joint erythema or tenderness. EXTREMITIES: No clubbing, cyanosis or edema PSYCHIATRIC: Appropriate mood and affect Assessment and plan: 1. Type 2 diabetes 2. Hypoglycemic episodes 3. Hypertension 4. Left-sided rib fracture 5. Lumbar transverse process fracture 6. Right pulmonary contusion 7. COPD 8. Hyperlipidemia 9. History of traumatic brain injury Patient is progressing well considering the multitude of injuries he presented with. Appreciate pulmonology and general surgery recommendations. I have now added I- S, PEP therapies and high-dose guaifenesin.if not already ordered. The patient's blood pressure is relatively normotensive on his home dosing of metoprolol and lisinopril. These will be continued. Hypoglycemia last night even after his 40 units of p.m. Lantus was cut in half to 20 units. His A1c is quite elevated indicating likely poor compliance with his home insulin regimen. Patient's blood sugar however seems to be under relatively good control with 15 units of Lantus nightly and sliding scale however did have a reading in the 300searlier today. Hesitant to increase Levemir further given some lows noted. awaiting pre-CERT placement. Exam Physical Exam Vital Signs: Temp Pulse Resp BP Pulse Ox O2 Del Method O2 Flow Rate 98.3 F 80 18 116/83 99 Room Air 2 03/06/23 15:27 03/06/23 15:39 03/06/23 15:39 03/06/23 15:27 03/06/23 15:27 03/06/23 15:27 03/03/23 10:00 Objective Lab Results 03/04/23 04:30 03/04/23 04:30 Meds Allergies and Active Meds Allergies No Known Allergies Allergy (Verified 02/14/20 01:23) Active Meds: Active Medications Generic Name Dose Route Start Last Admin Trade Name Ngozi PRN Reason Stop Dose Admin Hydrocodone Bitart/Acetaminophen 1 tab 03/05/23 12:42 03/06/23 08:46 Hydrocodone/Acetaminophen 5-325 Mg Tablet PO 1 tab Q4H PRN Administration Pain Albuterol 2 puff 03/03/23 01:13 Albuterol Hfa 60 Puff/8 Gram Inhaler INHALATION 03/02/24 01:12 QID PRN Shortness Of Breath Or Wheezing Albuterol/Ipratropium 3 ml 03/03/23 01:54 03/05/23 21:59 Ipratropium/Albuterol 0.5-3 Mg 3 Ml Ampul.Neb INHALATION 03/02/24 01:53 3 ml QID PRN Administration Shortness of Breath Aspirin 81 mg 03/03/23 09:00 03/06/23 08:47 Aspirin 81 Mg Tablet. PO 03/02/24 08:59 81 mg DAILY MICH Administration Dextrose 0 gm 03/03/23 02:02 03/04/23 08:40 Dextrose 50% In Water 25 Gm/50 Ml Syringe IV-PUSH 03/02/24 02:01 25 gm PRN PRN Administration Hypoglycemia Docusate Sodium 100 mg 03/03/23 09:00 03/06/23 08:46 Docusate 100 Mg Capsule PO 03/02/24 08:59 100 mg BID MICH Administration Enoxaparin Sodium 40 mg 03/03/23 10:00 03/06/23 11:06 Enoxaparin 40 Mg/0.4 Ml Syringe SUBCUT 03/02/24 09:59 Not Given DAILY@1000 MICH Famotidine 20 mg 03/05/23 09:00 03/06/23 08:46 Famotidine 20 Mg Tablet PO 03/04/24 08:59 20 mg BID MICH Administration Glipizide 10 mg 03/03/23 08:00 03/06/23 08:47 Glipizide 5 Mg Tablet PO 03/07/23 07:59 10 mg DAILY.8A MICH Administration Glucose 0 gm 03/03/23 02:02 Dextrose 40% Gel 15 Gm Tube PO 03/02/24 02:01 PRN PRN Hypoglycemia Guaifenesin 1,200 mg 03/05/23 21:00 03/06/23 08:47 Guaifenesin 600 Mg Tab.Er.12h PO 03/04/24 20:59 1,200 mg BID MICH Administration Hydromorphone HCl 0.5 mg 03/03/23 07:57 03/06/23 06:43 Hydromorphone 1 Mg/Ml Syringe IV-PUSH 0.5 mg Q3H PRN Administration pain Insulin Aspart 0 units 03/03/23 08:00 03/06/23 14:21 Insulin Aspart 300 Units/3 Ml Insuln.Pen SUBCUT 03/02/24 07:59 8 units TID.WM.HS [facility] Administration Protocol Insulin Glargine 20 units 03/04/23 22:00 03/05/23 22:54 Insulin Glargine 300 Units/3 Ml Insuln.Pen SUBCUT 03/03/24 21:59 20 units QHS [facility] Administration Ipratropium Mathis 0.5 mg 03/03/23 08:00 03/06/23 15:39 Ipratropium Mathis 0.5 Mg/2.5 Ml Vial.Neb INHALATION 03/02/24 07:59 0.5 mg QID.RESP MICH Administration Pregabalin 75 mg 03/05/23 13:00 03/06/23 08:47 Pregabalin 75 Mg Capsule PO 09/01/23 12:59 75 mg BID MICH Administration Quetiapine Fumarate 50 mg 03/03/23 22:00 03/05/23 22:15 Quetiapine Fumarate 50 Mg Tablet PO 03/06/23 21:59 50 mg QHS MICH Administration A&P - Hospitalist Assessment/Plan (1) Diabetes mellitus, type 2: Plan awaiting home medication reconciliation- pt's sister will bring his meds in pt currently has a diet and i am told there are no immediate plans for surgical intervention therefore will restart pt's home regimen with prandial sliding scale nursing staff to notify hospitalist service of change to pt's dietary status or of excessively elevated glucose levels will check hemoglobin a1c level to assess medium-term control hold glipizide for now will follow with you thank you Documented By: Fermin Rodríguez DO 03/06/23 16 05 Signed By: <Electronically signed by Fermin Rodríguez DO> 03/06/23 1608 [facility] Work Phone: Progruxf note Author Devin Starks [facility] March 07, 2023 12:21pm Note Date/Time March 07, 2023 12:2 1pm [facility] [address] [place] [address] General Surgery Progress Note Signed Patient: Akbar Byrnes MR#: [id number] : 1960 Acct:[id number] Age/Sex: 62 / M Adm Date: 3 Loc: Room: [address] [place] [address] Type: ADM IN Attending Dr: Devin Starks DO Copies to: ~ Date of Service: 03/07/2023 Subjective Subjective HPI: pt still has complaint that he does not like the nectar thickened liquids. However he is not choking with drinking them. He is eating without difficulty. He does have some pain at his rib and back. It is tolerable Allergies & Medications Medications and Allergies Allergies No Known Allergies Allergy (Verified 02/14/20 01:23) Home Medications albuterol sulfate 90 mcg/actuation aerosol inhaler 90 mcg inhalation QID PRN Shortness Of Breath 02/14/20 [History Confirmed 03/14/20] amlodipine 10 mg tablet 10 mg PO DAILY htn 02/14/20 [History Confirmed 03/21/20] aspirin 81 mg tablet,delayed release 81 mg PO DAILY 02/14/20 [History Confirmed 03/14/20] atorvastatin 40 mg tablet 40 mg PO DAILY 02/14/20 [History Confirmed 03/14/20] diclofenac sodium 1 % topical gel 2 g topical TID 02/14/20 [History Confirmed 03/14/20] escitalopram oxalate 10 mg tablet 10 mg PO DAILY depression/anxiety 02/14/20 [History Confirmed 03/21/20] glimepiride 2 mg tablet 2 mg PO DAILY dm 02/14/20 [History Confirmed 03/14/20] insulin degludec 100 unit/mL (3 mL) subcutaneous pen (Tresiba FlexTouch U-100 insulin) 80 unit subcut DAILY dm 02/14/20 [History Confirmed 03/21/20] ipratropium 20 mcg-albuterol 100 mcg/actuation mist for inhalation (Combivent Respimat) 20 - 100 puff inhalation QID PRN Shortness Of Breath 02/14/20 [History Confirmed 03/14/20] ondansetron 4 mg disintegrating tablet 4 mg PO Q6H PRN Nausea 02/14/20 [History Confirmed 03/14/20] tiotropium bromide 2.5 mcg/actuation mist for inhalation (Spiriva Respimat) 2 puff inhalation DAILY 02/14/20 [History Confirmed 03/21/20] lisinopril 40 mg tablet 40 mg PO DAILY htn 03/14/20 [History Confirmed 03/21/20] pregabalin 75 mg capsule 75 mg PO BID neuropathy 03/14/20 [History Confirmed 03/21/20] hydrocodone 5 mg-acetaminophen 325 mg tablet 1 tab PO Q4-6H PRN pain 14 days #70tabs 03/21/20 [Rx] doxycycline hyclate 100 mg capsule 10 mg PO BID 03/03/23 [History Confirmed 03/03/23] metoprolol tartrate 50 mg tablet mg 03/03/23 [History] Active Medications Hydrocodone Bitart/Acetaminophen (Hydrocodone/Acetaminophen 5-325 Mg Tablet) 1 tab PO Q4H PRN PRN Reason: Pain Last Admin: 03/06/23 20:57 Dose: 1 tab Albuterol (Albuterol Hfa 60 Puff/8 Gram Inhaler) 2 puff INHALATION QID PRN PRN Reason: Shortness Of Breath Or Wheezing Stop: 03/02/24 01:12 Albuterol/Ipratropium (Ipratropium/Albuterol 0.5-3 Mg 3 Ml Ampul.Neb) 3 ml INHALATION QID PRN PRN Reason: Shortness of Breath Stop: 03/02/24 01:53 Last Admin: 03/05/23 21:59 Dose: 3 ml Aspirin (Aspirin 81 Mg Tablet.Dr) 81 mg PO DAILY MICH Stop: 03/02/24 08:59 Last Admin: 03/07/23 08:05 Dose: 81 mg Dextrose (Dextrose 50% In Water 25 Gm/50 Ml Syringe) 0 gm IV-PUSH PRN PRN PRN Reason: Hypoglycemia Stop: 03/02/24 02:01 Last Admin: 03/04/23 08:40 Dose: 25 gm Docusate Sodium (Docusate 100 Mg Capsule) 100 mg PO BID [facility] Stop: 03/02/24 08:59 Last Admin: 03/07/23 08:05 Dose: 100 mg Enoxaparin Sodium (Enoxaparin 40 Mg/0.4 Ml Syringe) 40 mg SUBCUT DAILY@1000 [facility] Stop: 03/02/24 09:59 Last Admin: 03/07/23 09:32 Dose: 40 mg Famotidine (Famotidine 20 Mg Tablet) 20 mg PO BID MICH Stop: 03/04/24 08:59 Last Admin: 03/07/23 08:05 Dose: 20 mg Glucose (Dextrose 40% Gel 15 Gm Tube) 0 gm PO PRN PRN PRN Reason: Hypoglycemia Stop: 03/02/24 02:01 Guaifenesin (Guaifenesin 600 Mg Tab.Er.12h) 1,200 mg PO BID [facility] Stop: 03/04/24 20:59 Last Admin: 03/07/23 08:05 Dose: 1,200 mg Hydromorphone HCl (Hydromorphone 1 Mg/Ml Syringe) 0.5 mg IV-PUSH Q3H PRN PRN Reason: pain Last Admin: 03/07/23 10:59 Dose: 0.5 mg Insulin Aspart (Insulin Aspart 300 Units/3 Ml Insuln.Pen) 0 units SUBCUT TID.WM.HS [facility]; Protocol Stop: 03/02/24 07:59 Last Admin: 03/07/23 11:58 Dose: 4 units Insulin Glargine (Insulin Glargine 300 Units/3 Ml Insuln.Pen) 20 units SUBCUT QHS [facility] Stop: 03/03/24 21:59 Last Admin: 03/06/23 23:00 Dose: 20 units Ipratropium Mathis (Ipratropium Mathis 0.5 Mg/2.5 Ml Vial.Neb) 0.5 mg INHALATION QID.RESP [facility] Stop: 03/02/24 07:59 Last Admin: 03/07/23 11:09 Dose: 0.5 mg Pregabalin (Pregabalin 75 Mg Capsule) 75 mg PO BID [facility] Stop: 09/01/23 12:59 Last Admin: 03/07/23 08:05 Dose: 75 mg Exam Physical Exam Vital Signs: Temp Pulse Resp BP Pulse Ox O2 Del Method O2 Flow Rate 97.7 F 90 16 142/94 H 94 L Room Air 2 03/07/23 11:38 03/07/23 11:38 03/07/23 11:38 03/07/23 11:38 03/07/23 11:38 03/07/23 08:00 03/03/23 10:00 Narrative: Patient is comfortable no acute distress he is GCS 15. Heart is regular rate. He is soft-spoken but conversant. Lungs are clear. Pulse ox is 99%. Abdomen is soft. No extremity edema or pain Objective Pain Assessment Left Chest: Pain Description: Constant, Acute, Sharp and Aching Pain Intensity: 6 Intake & Output 24 hour I&O: Intake & Output 03/06/23 03/07/23 03/07/23 23:59 07:59 15:59 Intake Total 480 / 1210 Output Total 3 / 5 Balance 477 / 1205 Labs 03/04/23 04:30 03/04/23 04:30 Laboratory Results - Last 48 hrs. 03/07/23 11:49: POC Glucose 220 03/07/23 08:00: POC Glucose 251 03/06/23 20:21: POC Glucose 163 03/06/23 16:13: POC Glucose 224, POC Glucose Comment Glu2: cleaned meter 03/06/23 11:03: POC Glucose 332, POC Glucose Comment 03/05/23 05:01: POC Glucose 102 A&P - General Surgery Assessment/Plan (1) Diabetes mellitus, type 2: Code(s): E11.9 - Type 2 diabetes mellitus without complications Status: Acute (2) Fall from height of greater than 3 feet: Plan: Patient is status post fall, he has a left-sided pneumothorax and left third rib fracture, right pulmonary contusion, left L1-3 transverse process fractures. Patient seems to have some decreased cognition although that has been improving, possibly secondary to his previous head injury. No other new injuries identified. Patient is okay for transfer to [facility]. That is pending approval on Thursday Code(s): W17.89XA - Other fall from one level to another, initial encounter Status: Acute (3) Traumatic fracture of ribs of left side with pneumothorax: Code(s): S22.42XA - Multiple fractures of ribs, left side, initial encounter for closed fracture; S27.0XXA - Traumatic pneumothorax, initial encounter Status: Acute (4) Lumbar transverse process fracture: Code(s): S32.009A - Unspecified fracture of unspecified lumbar vertebra, initial encounter for closed fracture Status: Acute (5) Right pulmonary contusion: Code(s): S27.321A - Contusion of lung, unilateral, initial encounter Status: Acute (6) History of traumatic brain injury: Code(s): Z87.820 - Personal history of traumatic brain injury Status: Acute (7) COPD (chronic obstructive pulmonary disease): Code(s): J44.9 - Chronic obstructive pulmonary disease, unspecified Status: Acute Documented By: Devin Starks DO 03/07/23 1219 Signed By: <Electronically signed by DO Devin Starks> 03/07/23 1221 [facility] Work Phone: Progress note Author Fermin Rodríguez [facility] March 07, 2023 6:00pm Note Date/Time March 07, 2023 6:00 pm [facility] [address] [place] [address] Hospitalist Progress Note Signed Patient: Akbar Byrnes MR#: [id number] : 1960 Acct:[id number] Age/Sex: 62 / M Adm Date: 3 Loc: N Room: [address] [place] [address] Type: ADM IN Attending Dr: Devin Starks DO Copies to: ~ Date of Service: 03/07/2023 Subjective Subjective Narrative: I personally saw and examined patient at the bedside this afternoon. No new complaints. Now on the [facility] floor. Physical Examination: GENERAL APPEARANCE: Alert, up in bed AAOx3 HEENT: NCAT, MMM NECK: Neck soft w/o masses, no JVD CARDIAC: Normal S1 and S2. No S3, S4 or murmurs. LUNGS: Clear to auscultation bilaterally. no wheeze/rhonchi/rales ABDOMEN: Positive bowel sounds. Soft, nontender. No guarding or signs of an acute abdomen MUSCULOSKELETAL: No joint erythema or tenderness. EXTREMITIES: No clubbing, cyanosis or edema PSYCHIATRIC: Appropriate mood and affect Assessment and plan: 1. Type 2 diabetes 2. Hypoglycemic episodes 3. Hypertension 4. Left-sided rib fracture 5. Lumbar transverse process fracture 6. Right pulmonary contusion 7. COPD 8. Hyperlipidemia 9. History of traumatic brain injury Patient is progressing well considering the multitude of injuries he presented with. Appreciate pulmonology and general surgery recommendations. I-S, PEP therapies and high-dose guaifenesin. The patient's blood pressure is relatively normotensive on his home dosing of metoprolol and lisinopril. These will be continued. Blood sugar seems to be running higher now that the patient is tolerating p.o. quite well. We will further increase Levemir to 30 units nightly. Continue sliding scale. Awaiting pre-CERT placement. Exam Physical Exam Vital Signs: Temp Pulse Resp BP Pulse Ox O2 Del Method O2 Flow Rate 98.2 F 96 H 18 143/94 H 97 Room Air 2 03/07/23 16:32 03/07/23 16:32 03/07/23 16:32 03/07/23 16:32 03/07/23 16:32 03/07/23 08:00 03/03/23 10:00 Objective Lab Results 03/04/23 04:30 03/04/23 04:30 Meds Allergies and Active Meds Allergies No Known Allergies Allergy (Verified 02/14/20 01:23) Active Meds: Active Medications Generic Name Dose Route Start Last Admin Trade Name Freq PRN Reason Stop Dose Admin Hydrocodone Bitart/Acetaminophen 1 tab 03/05/23 12:42 03/06/23 20:57 Hydrocodone/Acetaminophen 5-325 Mg Tablet PO 1 tab Q4H PRN Administration Pain Albuterol 2 puff 03/03/23 01:13 Albuterol Hfa 60 Puff/8 Gram Inhaler INHALATION 03/02/24 01:12 QID PRN Shortness Of Breath Or Wheezing Albuterol/Ipratropium 3 ml 03/03/23 01:54 03/05/23 21:59 Ipratropium/Albuterol 0.5-3 Mg 3 Ml Ampul.Neb INHALATION 03/02/24 01:53 3 ml QID PRN Administration Shortness of Breath Aspirin 81 mg 03/03/23 09:00 03/07/23 08:05 Aspirin 81 Mg Tablet. PO 03/02/24 08:59 81 mg DAILY MICH Administration Dextrose 0 gm 03/03/23 02:02 03/04/23 08:40 Dextrose 50% In Water 25 Gm/50 Ml Syringe IV-PUSH 03/02/24 02:01 25 gm PRN PRN Administration Hypoglycemia Docusate Sodium 100 mg 03/03/23 09:00 03/07/23 08:05 Docusate 100 Mg Capsule PO 03/02/24 08:59 100 mg BID MICH Administration Enoxaparin Sodium 40 mg 03/03/23 10:00 03/07/23 09:32 Enoxaparin 40 Mg/0.4 Ml Syringe SUBCUT 03/02/24 09:59 40 mg DAILY@1000 [facility] Administration Famotidine 20 mg 03/05/23 09:00 03/07/23 08:05 Famotidine 20 Mg Tablet PO 03/04/24 08:59 20 mg BID MICH Administration Glucose 0 gm 03/03/23 02:02 Dextrose 40% Gel 15 Gm Tube PO 03/02/24 02:01 PRN PRN Hypoglycemia Guaifenesin 1,200 mg 03/05/23 21:00 03/07/23 08:05 Guaifenesin 600 Mg Tab.Er.12h PO 03/04/24 20:59 1,200 mg BID [facility]ICH Administration Hydromorphone HCl 0.5 mg 03/03/23 07:57 03/07/23 15:30 Hydromorphone 1 Mg/Ml Syringe IV-PUSH 0.5 mg Q3H PRN Administration pain Insulin Aspart 0 units 03/03/23 08:00 03/07/23 17:14 Insulin Aspart 300 Units/3 Ml Insuln.Pen SUBCUT 03/02/24 07:59 14 units TID.WM.HS [facility] Administration Protocol Insulin Glargine 30 units 03/07/23 22:00 Insulin Glargine 300 Units/3 Ml Insuln.Pen SUBCUT 03/06/24 21:59 QHS MICH Ipratropium Mathis 0.5 mg 03/03/23 08:00 03/07/23 15:31 Ipratropium Mathis 0.5 Mg/2.5 Ml Vial.Neb INHALATION 03/02/24 07:59 0.5 mg QID.RESP [facility] Administration Pregabalin 75 mg 03/05/23 13:00 03/07/23 08:05 Pregabalin 75 Mg Capsule PO 09/01/23 12:59 75 mg BID [facility] Administration Documented By: Fermin Rodríguez DO 03/07/23 17 59 Signed By: <Electronically signed by Fermin Rodríguez DO> 03/07/23 1800 [facility] Work Phone: Progress note Author Devni Starks [facility] March 08, 2023 1:35pm Note Date/Time March 08, 2023 1:35 pm [facility] [address] [place] [address] General Surgery Progress Note Signed Patient: Akbar Byrnes MR#: [id number] : 1960 Acct:[id number] Age/Sex: 62 / M Adm Date: 3 Loc: 4N Room: 0W1821-6 Type: ADM IN Attending Dr: Devin Starks DO Copies to: ~ Date of Service: 03/08/2023 Subjective Subjective HPI: Patient has occasionally a cough, present for a long time. He would like some cough syrup. Also uses at home. He did not like the lozenges. Also he has hada bowel movement but he feels like he could really need to have another one and the stool softener is not helping. He wants something stronger. He is eating without any difficulty. He just cleaned his plate for lunch. He is not having shortness of breath. Unchanged chest pain secondary to rib Allergies & Medications Medications and Allergies Allergies No Known Allergies Allergy (Verified 02/14/20 01:23) Home Medications albuterol sulfate 90 mcg/actuation aerosol inhaler 90 mcg inhalation QID PRN Shortness Of Breath 02/14/20 [History Confirmed 03/14/20] amlodipine 10 mg tablet 10 mg PO DAILY htn 02/14/20 [History Confirmed 03/21/20] aspirin 81 mg tablet,delayed release 81 mg PO DAILY 02/14/20 [History Confirmed 03/14/20] atorvastatin 40 mg tablet 40 mg PO DAILY 02/14/20 [History Confirmed 03/14/20] diclofenac sodium 1 % topical gel 2 g topical TID 02/14/20 [History Confirmed 03/14/20] escitalopram oxalate 10 mg tablet 10 mg PO DAILY depression/anxiety 02/14/20 [History Confirmed 03/21/20] glimepiride 2 mg tablet 2 mg PO DAILY dm 02/14/20 [History Confirmed 03/14/20] insulin degludec 100 unit/mL (3 mL) subcutaneous pen (Tresiba FlexTouch U-100 insulin) 80 unit subcut DAILY dm 02/14/20 [History Confirmed 03/21/20] ipratropium 20 mcg-albuterol 100 mcg/actuation mist for inhalation (Combivent Respimat) 20 - 100 puff inhalation QID PRN Shortness Of Breath 02/14/20 [History Confirmed 03/14/20] ondansetron 4 mg disintegrating tablet 4 mg PO Q6H PRN Nausea 02/14/20 [History Confirmed 03/14/20] tiotropium bromide 2.5 mcg/actuation mist for inhalation (Spiriva Respimat) 2 puff inhalation DAILY 02/14/20 [History Confirmed 03/21/20] lisinopril 40 mg tablet 40 mg PO DAILY htn 03/14/20 [History Confirmed 03/21/20] pregabalin 75 mg capsule 75 mg PO BID neuropathy 03/14/20 [History Confirmed 03/21/20] hydrocodone 5 mg-acetaminophen 325 mg tablet 1 tab PO Q4-6H PRN pain 14 days #70tabs 03/21/20 [Rx] doxycycline hyclate 100 mg capsule 10 mg PO BID 03/03/23 [History Confirmed 03/03/23] metoprolol tartrate 50 mg tablet mg 03/03/23 [History] Active Medications Hydrocodone Bitart/Acetaminophen (Hydrocodone/Acetaminophen 5-325 Mg Tablet) 1 tab PO Q4H PRN PRN Reason: Pain Last Admin: 03/08/23 07:33 Dose: 1 tab Albuterol (Albuterol Hfa 60 Puff/8 Gram Inhaler) 2 puff INHALATION QID PRN PRN Reason: Shortness Of Breath Or Wheezing Stop: 03/02/24 01:12 Albuterol/Ipratropium (Ipratropium/Albuterol 0.5-3 Mg 3 Ml Ampul.Neb) 3 ml INHALATION QID PRN PRN Reason: Shortness of Breath Stop: 03/02/24 01:53 Last Admin: 03/08/23 07:42 Dose: 3 ml Aspirin (Aspirin 81 Mg Tablet.) 81 mg PO DAILY [facility] Stop: 03/02/24 08:59 Last Admin: 03/08/23 09:35 Dose: 81 mg Dextrose (Dextrose 50% In Water 25 Gm/50 Ml Syringe) 0 gm IV-PUSH PRN PRN PRN Reason: Hypoglycemia Stop: 03/02/24 02:01 Last Admin: 03/04/23 08:40 Dose: 25 gm Docusate Sodium (Docusate 100 Mg Capsule) 100 mg PO BID [facility] Stop: 03/02/24 08:59 Last Admin: 03/08/23 09:26 Dose: 100 mg Enoxaparin Sodium (Enoxaparin 40 Mg/0.4 Ml Syringe) 40 mg SUBCUT DAILY@1000 [facility] Stop: 03/02/24 09:59 Last Admin: 03/08/23 09:35 Dose: 40 mg Famotidine (Famotidine 20 Mg Tablet) 20 mg PO BID [facility] Stop: 03/04/24 08:59 Last Admin: 03/08/23 09:26 Dose: 20 mg Glucose (Dextrose 40% Gel 15 Gm Tube) 0 gm PO PRN PRN PRN Reason: Hypoglycemia Stop: 03/02/24 02:01 Guaifenesin (Guaifenesin 600 Mg Tab.Er.12h) 1,200 mg PO BID [facility] Stop: 03/04/24 20:59 Last Admin: 03/08/23 09:35 Dose: 1,200 mg Hydromorphone HCl (Hydromorphone 1 Mg/Ml Syringe) 0.5 mg IV-PUSH Q3H PRN PRN Reason: pain Last Admin: 03/08/23 11:28 Dose: 0.5 mg Insulin Aspart (Insulin Aspart 300 Units/3 Ml Insuln.Pen) 0 units SUBCUT TID.WM.HS [facility]; Protocol Stop: 03/02/24 07:59 Last Admin: 03/08/23 12:08 Dose: 8 units Insulin Glargine (Insulin Glargine 300 Units/3 Ml Insuln.Pen) 30 units SUBCUT QHS [facility] Stop: 03/06/24 21:59 Last Admin: 03/07/23 21:25 Dose: 30 units Ipratropium Mathis (Ipratropium Mathis 0.5 Mg/2.5 Ml Vial.Neb) 0.5 mg INHALATION QID.RESP [facility] Stop: 03/02/24 07:59 Last Admin: 03/08/23 11:44 Dose: 0.5 mg Pregabalin (Pregabalin 75 Mg Capsule) 75 mg PO BID [facility] Stop: 09/01/23 12:59 Last Admin: 03/08/23 09:26 Dose: 75 mg Exam Physical Exam Vital Signs: Temp Pulse Resp BP Pulse Ox O2 Del Method O2 Flow Rate 98.1 F 100 H 17 135/96 97 Room Air 2 03/08/23 12:06 03/08/23 12:06 03/08/23 12:06 03/08/23 12:06 03/08/23 12:06 03/08/23 12:06 03/03/23 10:00 Narrative: Patient is comfortable no acute distress he is GCS 15. Heart is regular rate. He is soft-spoken but conversant. Lungs are clear. Pulse ox is 99%. Abdomen is soft. No extremity edema or pain Objective Pain Assessment Left Chest: Pain Description: Constant, Acute, Sharp and Aching Pain Intensity: 8 Labs 03/04/23 04:30 03/04/23 04:30 Laboratory Results - Last 48 hrs. 03/08/23 12:07: POC Glucose 260 03/08/23 07:28: POC Glucose 368 03/07/23 20:49: POC Glucose 259 03/07/23 16:35: POC Glucose 358, POC Glucose Comment Glu2: cleaned meter 03/07/23 11:49: POC Glucose 220 03/07/23 08:00: POC Glucose 251 03/06/23 20:21: POC Glucose 163 03/06/23 16:13: POC Glucose 224, POC Glucose Comment Glu2: cleaned meter A&P - General Surgery Assessment/Plan (1) Diabetes mellitus, type 2: Code(s): E11.9 - Type 2 diabetes mellitus without complications Status: Acute (2) Fall from height of greater than 3 feet: Plan: Patient is status post fall, he has a left-sided pneumothorax and left third rib fracture, right pulmonary contusion, left L1-3 transverse process fractures. Patient seems to have some decreased cognition although that has been improving, possibly secondary to his previous head injury. No other new injuries identified. Patient is okay for [facility]. That is pending approval on Elvin. Will start Robitussin. Add MiraLAX Code(s): W17.89XA - Other fall from one level to another, initial encounter Status: Acute (3) Traumatic fracture of ribs of left side with pneumothorax: Code(s): S22.42XA - Multiple fractures of ribs, left side, initial encounter for closed fracture; S27.0XXA - Traumatic pneumothorax, initial encounter Status: Acute (4) Lumbar transverse process fracture: Code(s): S32.009A - Unspecified fracture of unspecified lumbar vertebra, initial encounter for closed fracture Status: Acute (5) Right pulmonary contusion: Code(s): S27.321A - Contusion of lung, unilateral, initial encounter Status: Acute (6) History of traumatic brain injury: Code(s): Z87.820 - Personal history of traumatic brain injury Status: Acute (7) COPD (chronic obstructive pulmonary disease): Code(s): J44.9 - Chronic obstructive pulmonary disease, unspecified Status: Acute Documented By: Devin Starks DO 03/08/23 1334 Signed By: <Electronically signed by DO Devin Starks> 03/08/23 [facility] Work Phone: Progress note Author Fermin Rodríguez [facility] March 08, 2023 3:17pm Note Date/Time March 08, 2023 3:17 pm [facility] [address] [place] [address] Hospitalist Progress Note Signed Patient: Akbar Byrnes MR#: [id number] : 1960 Acct:[id number] Age/Sex: 62 / M Adm Date: 3 Loc: 4N Room: [address] [place] [address] Type: ADM IN Attending Dr: Devin Starks DO Copies to: ~ Date of Service: 03/08/2023 Subjective Subjective Narrative: I personally saw and examined patient at the bedside this afternoon. No new complaints. Now on the MedSur floor. Reports constipation Physical Examination: GENERAL APPEARANCE: Alert, up in bed AAOx3 HEENT: NCAT, MMM NECK: Neck soft w/o masses, no JVD CARDIAC: Normal S1 and S2. No S3, S4 or murmurs. LUNGS: Clear to auscultation bilaterally. no wheeze/rhonchi/rales ABDOMEN: Positive bowel sounds. Soft, nontender. No guarding or signs of an acute abdomen MUSCULOSKELETAL: No joint erythema or tenderness. EXTREMITIES: No clubbing, cyanosis or edema PSYCHIATRIC: Appropriate mood and affect Assessment and plan: 1. Type 2 diabetes 2. Hypoglycemic episodes 3. Hypertension 4. Left-sided rib fracture 5. Lumbar transverse process fracture 6. Right pulmonary contusion 7. COPD 8. Hyperlipidemia 9. History of traumatic brain injury 10. Constipation Patient is progressing well considering the multitude of injuries he presented with. Medically he is doing fairly well relative stability. Vital signs are stable with some mild tachycardia noted. Continue to monitor. He does have fairly persistent hyperglycemia now that he is tolerating a diet much better than previously. He initially was hypoglycemic on his home regimen on presentation and this was held. I will further uptitrate his Levemir to 50 units nightly. Reports constipation. Stool softeners and laxatives have been ordered by general surgery. I will add a dose of Relistor given he has been on opiate pain control for a number of days. Awaiting SNF placement Exam Physical Exam Vital Signs: Temp Pulse Resp BP Pulse Ox O2 Del Method O2 Flow Rate 98.1 F 100 H 17 135/96 97 Room Air 2 03/08/23 12:06 03/08/23 12:06 03/08/23 12:06 03/08/23 12:06 03/08/23 12:06 03/08/23 12:06 03/03/23 10:00 Objective Lab Results 03/04/23 04:30 03/04/23 04:30 Meds Allergies and Active Meds Allergies No Known Allergies Allergy (Verified 02/14/20 01:23) Active Meds: Active Medications Generic Name Dose Route Start Last Admin Trade Name Freq PRN Reason Stop Dose Admin Hydrocodone Bitart/Acetaminophen 1 tab 03/05/23 12:42 03/08/23 14:19 Hydrocodone/Acetaminophen 5-325 Mg Tablet PO 1 tab Q4H PRN Administration Pain Albuterol 2 puff 03/03/23 01:13 Albuterol Hfa 60 Puff/8 Gram Inhaler INHALATION 03/02/24 01:12 QID PRN Shortness Of Breath Or Wheezing Albuterol/Ipratropium 3 ml 03/03/23 01:54 03/08/23 07:42 Ipratropium/Albuterol 0.5-3 Mg 3 Ml Ampul.Neb INHALATION 03/02/24 01:53 3 ml QID PRN Administration Shortness of Breath Aspirin 81 mg 03/03/23 09:00 03/08/23 09:35 Aspirin 81 Mg Tablet. PO 03/02/24 08:59 81 mg DAILY MICH Administration Dextrose 0 gm 03/03/23 02:02 03/04/23 08:40 Dextrose 50% In Water 25 Gm/50 Ml Syringe IV-PUSH 03/02/24 02:01 25 gm PRN PRN Administration Hypoglycemia Docusate Sodium 100 mg 03/03/23 09:00 03/08/23 09:26 Docusate 100 Mg Capsule PO 03/02/24 08:59 100 mg BID MICH Administration Enoxaparin Sodium 40 mg 03/03/23 10:00 03/08/23 09:35 Enoxaparin 40 Mg/0.4 Ml Syringe SUBCUT 03/02/24 09:59 40 mg DAILY@1000 MICH Administration Famotidine 20 mg 03/05/23 09:00 03/08/23 09:26 Famotidine 20 Mg Tablet PO 03/04/24 08:59 20 mg BID MICH Administration Glucose 0 gm 03/03/23 02:02 Dextrose 40% Gel 15 Gm Tube PO 03/02/24 02:01 PRN PRN Hypoglycemia Guaifenesin 1,200 mg 03/05/23 21:00 03/08/23 09:35 Guaifenesin 600 Mg Tab.Er.12h PO 03/04/24 20:59 1,200 mg BID MICH Administration Guaifenesin 200 ml 03/08/23 13:33 Guaifenesin Syrup 10 Ml Udc PO 03/07/24 13:32 Q4H PRN Cough Hydromorphone HCl 0.5 mg 03/03/23 07:57 03/08/23 11:28 Hydromorphone 1 Mg/Ml Syringe IV-PUSH 0.5 mg Q3H PRN Administration pain Insulin Aspart 0 units 03/03/23 08:00 03/08/23 12:08 Insulin Aspart 300 Units/3 Ml Insuln.Pen SUBCUT 03/02/24 07:59 8 units TID.WM.HS MICH Administration Protocol Insulin Glargine 50 units 03/08/23 15:13 Insulin Glargine 300 Units/3 Ml Insuln.Pen SUBCUT 03/06/24 21:59 QHS MICH Ipratropium Mathis 0.5 mg 03/03/23 08:00 03/08/23 11:44 Ipratropium Mathis 0.5 Mg/2.5 Ml Vial.Neb INHALATION 03/02/24 07:59 0.5 mg QID.RESP MICH Administration Methylnaltrexone Mathis 12 mg 03/08/23 15:12 Methylnaltrexone Mathis 12 Mg/0.6 Ml Vial SUBCUT 03/08/23 15:13 ONCE ONE Polyethylene Glycol 17 gm 03/08/23 13:33 03/08/23 14:20 Polyethylene Glycol 3350 17 Gm Powd.Pack PO 03/07/24 13:32 17 gm DAILY PRN Administration Constipation Pregabalin 75 mg 03/05/23 13:00 03/08/23 09:26 Pregabalin 75 Mg Capsule PO 09/01/23 12:59 75 mg BID MICH Administration A&P - Hospitalist Assessment/Plan (1) Diabetes mellitus, type 2: Plan awaiting home medication reconciliation- pt's sister will bring his meds in pt currently has a diet and i am told there are no immediate plans for surgical intervention therefore will restart pt's home regimen with prandial sliding scale nursing staff to notify hospitalist service of change to pt's dietary status or of excessively elevated glucose levels will check hemoglobin a1c level to assess medium-term control hold glipizide for now will follow with you thank you Documented By: Fermin Rodríguez DO 03/08/23 15 15 Signed By: <Electronically signed by Fermin Rodríguez DO> 03/08/23 6421 [facility] Work Phone: Summary Purpose Family History No Family History Records Found Relationship Condition Age at Onset Recorded Date/T tamia Not Specified Hypertension Unknown father Hypertension Unknown brother Myocardial infarction Unknown brother Malignant neoplasm Unknown sister Diabetes mellitus Unknown Advance Directives No Advanced Directives Records Found Advance Directive Response Recorded Date/ Time Advance Directives No February 12 9:38pm Chief Complaint and Reason for Visit Chief Complaint FALL Additional Source Comments (unrecognized sect ion and content) No Status Records FoundNo Status Records FoundNo Status Records Found INFORMATION SOURCE (unrecogn ized section and content) DATE CREATED AUTHOR 10/25/2022 [facility] [employer] [facility] DATE CREATED AUTHOR AUTHOR'S ORGANIZ ATION 12/11/2022 [facility] DATE CREATED AUTHOR AUTHOR'S ORGANIZ ATION 08/07/2023 [facility] Care Teams (unrecognized sec tion and content) Team Status: Active Member Role Status Dates NON STAFF Primary Care Provider Active Team Status: Active Member Role Status Dates Zachariah Saldaña Jr, MD Emergency Provider Active NON STAFF Primary Care Provider Active Devin Starks DO Admit Provider, Attending Provider Ac tive Goals (unrecognized section and content) Goals may be documented in a n alternate section FOR RECORDS PERTAINING TO PATIENTS WHO ARE OR HAVE BEEN ENROLLED IN A CHEMICAL DEPENDENCY/SUBSTANCEABUSE PROGRAM, SOME INFORMATION MAY BE OMITTED. This clinical summary was aggregated from multiple sources. Caution should be exercised in using it in the provision of clinical care. This summary normalizes information from multiple sources, and as a consequence, information in this document may materially change the coding, format and clinical context of patient data. In addition, data may be omitted in some cases. CLINICAL DECISIONS SHOULD BE BASED ON THE PRIMARY CLINICAL RECORDS. [employer] [facility]. provides no warranty or guarantee of the accuracy or completeness of information in this document.
--- NOTE | 2023-09-01 18:39 | ECG_ITS ---
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
--- NOTE | 2023-09-01 18:39 | XR_ITS ---
The [address] [address] Patient Name: BROOKLYNN STEPHEN MRN: [id number] date: 1960 Sex: M Assigned Patient Location: ER Current Patient Location: ED.MAIN Accession/Order Number: [id number] Exam Date: 09/01/2023 19:10 Report Date: 09/01/2023 19:39 At the request of: BROOKLYNN DUBOSE Procedure: XR chest 1V EXAM: XR chest 1V at 1909 hours HISTORY: sob COMPARISON: 07/21/2023 TECHNIQUE: AP upright portable chest x-ray FINDINGS: The heart is not enlarged and the vasculature is not distended. An interstitial infiltrate is seen at the right lung base. Slight prominence of interstitial markings are also seen in the lower lungs which appear chronic in nature. There is no evidence of an effusion or pneumothorax. The osseous structures are grossly intact. XR/XR chest 1V IMPRESSION: Interstitial infiltrate at the right lung base. Mild chronic changes are also noted. There is no evidence of cardiac decompensation, the overall appearance of the chest is otherwise unchanged. Electronically authenticated by: JOSÉ SWEET Date: 09/01/2023 19:39
--- NOTE | 2023-09-01 18:41 | ED.GENADUL1 ---
HPI - General Adult General Chief complaint: Shortness of Breath/Dyspnea Stated complaint: Shortness of Breath Time Seen by Provider: 09/01/23 18:31 History of Present Illness HPI narrative: Patient is a 62-year-old male who is presenting to the Emergency Room with chief complaint of 2 days of shortness of breath. Patient also complaining of nausea and vomiting yesterday, with several episodes of vomiting yesterday, none today. Patient said there is pipes in his house that burst today, patient has not been able to drink water. Patient has long-standing history of emphysema, and chronic obstructive pulmonary disease. Patient has history of diabetes, patient takes tablets and insulin. Patient does not know who his PCP is, states the PCP is in [place]. Patient lives in [place]. Patient is very agitated, direct, and not nice to myself and nursing staff when trying to ask him questions about his medical history, and hiss HPI. Patient has no recent sick contacts that he is aware of. Patient denies any illicit drug use. Patient is a long-standing history of medical noncompliance. Patient denies alcohol or drug use. Patient came in by EMS. . All systems are negative except as noted/marked. All systems reviewed and otherwise negative. . Nurses note and vital signs reviewed and patient is Hypoxic, patient has 2 L of nasal cannula on. Patient does not wear action at home. General: The patient appears well and in no apparent distress. Patient is resting comfortably on cart. Patient is not toxic, lethargic, or listless. Patient is cachectic looking, at baseline. Skin: Warm, dry, no pallor noted. There is no rash noted. No petechiae, purpura. Head: Normocephalic, atraumatic Eye: Normal conjunctiva, no drainage, EOMI. PERRL Ears, Nose, Mouth, and Throat: oral mucosa is moist. Nares patent. Mouth without vesicles. Cardiovascular: Regular Rate and Rhythm, no murmur, gallop, rub Respiratory: Patient is in Mild respiratory distress talking in a few words or one or 2 sentences, no accessory muscle use, lungs are Decreased bilateral, diffuse wheezing bilaterally with some congestion. No rales or crackles. Back: non-tender, no CVA tenderness bilaterally to percussion. No CT LS midline pain GI: soft, no tenderness to palpation, no masses appreciated. No rebound, guarding, or rigidity noted. No flank pain bilateral, No distention Musculoskeletal: Patient has full range of motion of all of the extremities, no motor, sensory, or focal neurological deficits Neurological: A&O x3, normal speech Psychiatric: Cooperative Related Data Home Medications Medication Instructions Recorded Confirmed amlodipine 10 mg-benazepril 20 mg 1 cap PO DAILY 01/31/23 02/17/23 capsule ammonium lactate 12 % lotion 1 applic topical .twice a day 01/31/23 02/17/23 aspirin 81 mg tablet,delayed 81 mg PO DAILY 01/31/23 02/17/23 release atorvastatin 40 mg tablet 40 mg PO .evening 01/31/23 02/17/23 escitalopram oxalate 20 mg tablet 20 mg PO DAILY 01/31/23 02/17/23 glipizide 10 mg tablet 10 mg PO DAILY 01/31/23 02/17/23 hydroxyzine HCl 25 mg tablet 25 mg PO DAILY 01/31/23 02/17/23 quetiapine 50 mg tablet 50 mg PO .hs 01/31/23 02/17/23 tamsulosin 0.4 mg capsule 0.4 mg PO DAILY 01/31/23 02/17/23 tiotropium bromide 2.5 2 puff inhalation Q24H 01/31/23 02/17/23 mcg/actuation mist for inhalation (Spiriva Respimat) albuterol sulfate 90 mcg/actuation inhalation 02/26/23 aerosol inhaler aspirin 81 mg tablet,delayed 81 mg PO DAILY 02/26/23 02/26/23 release atorvastatin 40 mg tablet 40 mg PO BEDTIME 02/26/23 02/26/23 glipizide 10 mg tablet 10 mg PO DAILY 02/26/23 02/26/23 hydroxyzine HCl 25 mg tablet 25 mg PO BID 02/26/23 02/26/23 insulin glargine 100 unit/mL (3 unit subcut 02/26/23 mL) subcutaneous pen (Lantus Solostar U-100 Insulin) ipratropium 20 mcg-albuterol 100 1 puff inhalation Q6H PRN sob 02/26/23 02/26/23 mcg/actuation mist for inhalation (Combivent Respimat) lisinopril 2.5 mg tablet 2.5 mg PO 02/26/23 metoprolol tartrate 50 mg tablet mg 02/26/23 quetiapine 50 mg tablet mg 02/26/23 tamsulosin 0.4 mg capsule mg PO 02/26/23 tiotropium bromide 2.5 inhalation 02/26/23 mcg/actuation mist for inhalation (Spiriva Respimat) hydrocodone 5 mg-acetaminophen 325 1 tab PO Q6H 03/12/23 03/12/23 mg tablet lisinopril 2.5 mg tablet 2.5 mg PO DAILY 03/12/23 03/12/23 metoprolol tartrate 25 mg tablet 25 mg PO Q12H 03/12/23 03/12/23 naproxen 500 mg tablet 500 mg PO Q12H 03/12/23 03/12/23 ondansetron HCl 4 mg tablet 4 mg PO Q6H 03/12/23 03/12/23 pregabalin 75 mg capsule mg 03/12/23 valsartan 320 mg tablet 320 mg PO DAILY 03/12/23 03/12/23 Previous Rx's Medication Instructions Recorded albuterol sulfate 90 mcg/actuation 2 inh inhalation QID PRN shortness 02/09/23 aerosol inhaler (Ventolin HFA) of breath or wheezing #6.7 grams insulin glargine 100 unit/mL 40 unit (0.4 mL) subcut BID 30 02/09/23 subcutaneous solution (Lantus days #21 mL U-100 Insulin) metoprolol tartrate 50 mg tablet 25 mg (1/2 x 50 mg) PO BID #60 tabs 02/09/23 (Lopressor) doxycycline hyclate 100 mg capsule 100 mg PO BID 7 days #14 caps 02/26/23 levofloxacin 750 mg tablet 750 mg PO DAILY 5 days #5 tabs 05/28/23 Allergies Allergy/AdvReac Type Severity Reaction Status Date / Time No Known Allergies AdvReac Mild Verified 04/15/23 07:55 [facility] Medical History (Updated 09/01/23 @ 19:39 by Akbar Marcus MD) COPD exacerbation ?J44.1 - Chronic obstructive pulmonary disease with (acute) exacerbation (ICD-10) Drug abuse ?F19.10 - Other psychoactive substance abuse, uncomplicated (ICD-10) Depression ?F32.A - Depression, unspecified (ICD-10) Failure to thrive Chronic obstructive pulmonary disease with (acute) exacerbation ?J44.1 - Chronic obstructive pulmonary disease with (acute) exacerbation (ICD-10) Tobacco abuse ?Z72.0 - Tobacco use (ICD-10) Insomnia disorder ?G47.00 - Insomnia, unspecified (ICD-10) Hyperlipidemia associated with type 2 diabetes mellitus ?E11.69 - Type 2 diabetes mellitus with other specified complication (ICD-10) ?E78.5 - Hyperlipidemia, unspecified (ICD-10) Hypertension ?I10 - Essential (primary) hypertension (ICD-10) Insulin dependent type 2 diabetes mellitus, uncontrolled Chronic obstructive pulmonary disease ?J44.9 - Chronic obstructive pulmonary disease, unspecified (ICD-10) Hypercholesteremia ?E78.00 - Pure hypercholesterolemia, unspecified (ICD-10) Diabetes ?E11.9 - Type 2 diabetes mellitus without complications (ICD-10) Surgical History (System 04/15/23 @ 07:55 by Mya Borwn) History of total hip arthroplasty ?Z96.649 - Presence of unspecified artificial hip joint (ICD-10) Social History Within the past year, how often did you have a drink containing alcohol: 4 or more times a week Within the past year, how many standard drinks containing alcohol did you have on a typical day: 1 or 2 Within the past year, how often did you have six or more drinks on one occasion: never Total score: 0 Score interpretation: Questions 2 and 3 are 0. It can be assumed that the patient's drinking is below the recommended limits. However, please confirm the accuracy of the patient's alcohol intake over the last few months. Smoking status: Heavy tobacco smoker What tobacco products do you use: cigarettes Non-prescribed substance use: former substance user, crack/cocaine and opiods/painkillers Exam Constitutional Vital Signs, click to edit/add: Last Vital Signs Pulse 111 H 09/01/23 19:15 Resp 20 09/01/23 19:15 BP 146/105 H 09/01/23 18:44 Pulse Ox 96 09/01/23 19:15 O2 Del Method Nasal Cannula 09/01/23 19:15 O2 Flow Rate 2 09/01/23 19:15 Course Vital Signs Vital signs: Vital Signs Pulse Rate 97 H 09/01/23 18:44 Respiratory Rate 24 09/01/23 18:44 Blood Pressure 146/105 H 09/01/23 18:44 Pulse Oximetry 94 L 09/01/23 18:44 Oxygen Delivery Method Nasal Cannula 09/01/23 18:44 Oxygen Delivery Flow Rate 2 09/01/23 18:44 Pulse Rate 111 H 09/01/23 19:15 Respiratory Rate 20 09/01/23 19:15 Blood Pressure 146/105 H 09/01/23 18:44 Pulse Oximetry 96 09/01/23 19:15 Oxygen Delivery Method Nasal Cannula 09/01/23 19:15 Oxygen Delivery Flow Rate 2 09/01/23 19:15 Medical Decision Making MDM Narrative Medical decision making narrative: 1909 Patient's case is transitioned to Dr. Tate for final disposition. Labs, x-ray, reassessment are pending and transitioned to Dr. Tate. Lab Data Labs: Lab Results 09/01/23 Range/Units 18:56 POC Glucose 517 H* (74-106) mg/dL ECG Data Attestation: I personally reviewed and interpreted this ECG as follows: (EKG interpretation. Normal sinus rhythm at 74 beats a minute. Normal axis deviation. No acute ST elevation, no acute ectopy. QTC of 403.) Discharge Plan Discharge Patient Disposition: Still a Patient
[2023-09-01] MEDS: IPRATROPIUM/ALBUTEROL SULFATE 3 ML AMPUL.NEB 6 ML IH (19:00)
[2023-09-01 19:01] LABS: Glucometer 517 mg/dL (74-106)
[2023-09-01 20:13] LABS: PCO2 VBG 41.9 mmHg (40.0-52.0); pH VBG 7.383 (7.330-7.430)
[2023-09-01 20:17] LABS: Basophils Percent Auto 0.2 % (0.2-2.0); Eosinophils Absolute Auto 0.4 10^3/uL (0.0-0.7); Hematocrit 47.6 % (42.0-54.0); Hemoglobin 16.7 g/dL (14.0-18.0); Immature Granulocytes Abs Auto 0.09 10^3/uL (0.00-0.03); Immature Granulocytes Pct Auto 0.5 % (0.0-0.5); Lymphocytes Absolute Auto 3.6 10^3/uL (1.2-3.8); Lymphocytes Percent Auto 19.6 % (20.5-60.0); Mean Corpuscular HGB Conc 35.1 g/dL (29.9-35.2); Mean Corpuscular Hemoglobin 31.1 pg (25.9-34.0); Mean Corpuscular Volume 88.6 fL (80.0-94.0); Mean Platelet Volume 10.9 fL (9.5-13.5); Monocytes Absolute Auto 0.7 10^3/uL (0.3-0.8); Monocytes Percent Auto 4.1 % (1.7-12.0); Neutrophils Absolute Auto 13.4 10^3/uL (1.4-6.5); Neutrophils Percent Auto 73.6 % (43.0-75.0); Platelet Count 262 10^3/uL (150-450); Red Blood Count 5.37 10^6/uL (4.70-6.10); White Blood Count 18.2 10^3/uL (4.0-11.0)
[2023-09-01] MEDS: INSULIN ASPART 300 UNIT/3 ML PEN 15 UNIT SUBQ (20:28)
[2023-09-01 20:33] LABS: Acetone NEGATIVE (NEGATIVE)
[2023-09-01] MEDS: ONDANSETRON PF 4 MG/2 ML VIAL IV (20:34)
[2023-09-01 20:41] LABS: Lactate/Lactic Acid 3.3 mmol/L (0.4-2.0)
[2023-09-01] MEDS: 0.9 % SODIUM CHLORIDE 1,000 ML 1000 ML IV (21:54)
[2023-09-01] MEDS: 0.9 % SODIUM CHLORIDE 1,000 ML 999 ML IV (21:54)
[2023-09-01 23:09] LABS: Influenza Virus A Antigen Negative; Influenza Virus B Antigen Negative; Internal Control Within Normal Limits; Respiratory Syncytial Virus Not Detected (NOT DETECTE); SARS-CoV-2 Ag NEGATIVE (NEGATIVE)
[2023-09-01 23:35] LABS: Alanine Aminotransferase 31 U/L (16-63); Albumin Globulin Ratio 0.7; Alkaline Phosphatase 251 U/L (46-116); Anion Gap 15.5; Aspartate Amino Transferase 18 U/L (15-37); BUN Creatinine Ratio 20.4; Bilirubin Total 0.8 mg/dL (0.2-1.0); Calcium 10.6 mg/dL (8.5-10.1); Carbon Dioxide 23.9 mmol/L (21.0-32.0); Chloride 96 mmol/L (98-107); Estimated GFR (African America >60 (>=60); Estimated GFR (Non-African Ame >60 (>=60); Globulin 4.6 g/dL; Magnesium 2.1 mg/dL (1.8-2.4); Potassium 4.4 mmol/L (3.5-5.1); Sodium 131 mmol/L (136-145); Total Protein 7.6 g/dL (6.4-8.2); Troponin I High Sensitivity 5.1 pg/mL (4.0-76.1)
[2023-09-01 23:44] LABS: Lactate/Lactic Acid 3.9 mmol/L (0.4-2.0)
[2023-09-01 23:45] LABS: Glucose 553 mg/dL (74-106)
[2023-09-01 23:57] LABS: Glucometer 255 mg/dL (74-106)
[2023-09-02] VITALS (20 sets, daily range): BP systolic 128–142; BP diastolic 77–98; PULSE 68–85; RESP 18–24; TEMP 36.7–36.8; O2SAT 94–99; BMI 19.0
[2023-09-02 00:50] LABS: Bilirubin Urine NEGATIVE (NEGATIVE); Blood Urine NEGATIVE (NEGATIVE); Clarity Urine CLEAR (CLEAR); Color Urine YELLOW (YELLOW); Glucose Urine UA >=1000 mg/dL (NEGATIVE); Ketones Urine NEGATIVE (NEGATIVE); Leukocyte Esterase Urine NEGATIVE (NEGATIVE); Nitrite Urine NEGATIVE (NEGATIVE); Protein Urine TRACE mg/dL (NEG/TRACE); Urobilinogen Urine 0.2 EU/dL (0.2-1.0); pH Urine 5.5 (5.0-9.0)
[2023-09-02 00:58] LABS: Urine Microscopic Indicated NO
[2023-09-02] MEDS: 0.9 % SODIUM CHLORIDE 1,000 ML 999 ML IV (04:56)
--- OUTSIDE RECORDS SUMMARY | 2023-09-02 05:36 | XMS_ITS | CCD ---
Author Name Unknown Address [address] [facility] [address] [place] [address] Organization [facility] Care Team Providers Care Master Technician Name Role Phone PROVIDER, UNKNOWN Attending Unavailable [...] Unavailable FAWWAD, VOSS H Primary Care Unavailable BENTON, DR FELIX Garcia Consulting Unavailable ZIEBER, DR [...] Admit Provider DO Devin Starks Attending Provider [phone] NON STAFF Primary Care Unavailable Honorio [...] Consulting Unavailable Daniel Cobb Consulting Unavailable DaromaEnder uhnter Consulting Unavailable Mahogany Pedraza Consulting Unavailable Yohana [...] 14, 2020 12:00am March 21, 2020 8:00am [id number] 200 actuat albuterol 0.09 mg/actuat metered dose [...] 1 puff(s) by inhalation once daily Tiotropium [place] (Spiriva Respimat) 2.5 mcg/actuation mist Active 2 [...] Onset: 10-29-2022 Episodic Other aftercare (1 source) skilled nursing (current) use of aspirin; Translations: [[facility] CURRENT USE OF ASPIRIN] Onset: 12-10-2022 Episodic Other aftercare (1 source) 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 administrator (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) drug therapy; Translations: [OTH [facility] CURRENT DRUG THERAPY] Onset: 12-10-2022 Episodic Other aftercare (1 source) 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 Comment on above: Result Comment: [place] Glucose Reference Range is dependent on time and content of last meal. Glucose of more than 200 mg/dL in a nonstressed, ambulatory subject supports the diagnosis of Diabetes Mellitus. PERFORMED BY: [address] [place] [id number] PATHOLOGIST HANDS AND DIAL INSPECTOR DEONNA COURTNEY M.D. Performed By: #### G LULS ####Point of Care testing, Glucose Poct Glucometerson 0 03-09-2023 Glucose [Mass/Vol] 185 mg/dL Normal [facility] Comment on above: Result Comment: [place] Glucose Reference Range is dependent on time and content of last meal. Glucose of more than 200 mg/dL in a nonstressed, ambulatory subject supports the diagnosis of Diabetes Mellitus. PERFORMED BY: [address] [address] PATHOLOGIST HANDS AND DIAL INSPECTOR DEONNA COURTNEY M.D. Performed By: #### G LULS ####Point of Care testing, Glucose [Mass/Vol] 322 mg/dL Normal [facility] Comment on above: Result Comment: [place] Glucose Reference Range is dependent on time and content of last meal. Glucose of more than 200 mg/dL in a nonstressed, ambulatory subject supports the diagnosis of Diabetes Mellitus. PERFORMED BY: [address] [place] [address] PATHOLOGIST HANDS AND DIAL INSPECTOR DEONNA COURTNEY M.D. Performed By: #### G LULS ####Point of Care testing, Glucose Poct Glucometerson 0 03-08-2023 Glucose [Mass/Vol] 339 mg/dL Normal [facility] Comment on above: Result Comment: [place] Glucose Reference Range is dependent on time and content of last meal. Glucose of more than 200 mg/dL in a nonstressed, ambulatory subject supports the diagnosis of Diabetes Mellitus. PERFORMED BY: [address] [place] [address] PATHOLOGIST HANDS AND DIAL INSPECTOR DEONNA COURTNEY M.D. Performed By: #### G LULS ####Point of Care testing, Glucose [Mass/Vol] 328 mg/dL Normal [facility] Comment on above: Result Comment: [facility] Glucose Reference Range is dependent on time and content of last meal. Glucose of more than 200 mg/dL in a nonstressed, ambulatory subject supports the diagnosis of Diabetes Mellitus. PERFORMED BY: [facility] [address] [place] [id number] PATHOLOGIST HANDS AND DIAL INSPECTOR DEONNA COURTNEY M.D. Performed By: #### G LULS ####Point of Care testing, Glucose [Mass/Vol] 260 mg/dL Normal [facility] Comment on above: Result Comment: [facility] Glucose Reference Range is dependent on time and content of last meal. Glucose of more than 200 mg/dL in a nonstressed, ambulatory subject supports the diagnosis of Diabetes Mellitus. PERFORMED BY: [facility] [address] [place] [address] PATHOLOGIST HANDS AND DIAL INSPECTOR DEONNA COURTNEY M.D. Performed By: #### G LULS ####Point of Care testing, Glucose [Mass/Vol] 368 mg/dL Normal [facility] Comment on above: Result Comment: [facility] Glucose Reference Range is dependent on time and content of last meal. Glucose of more than 200 mg/dL in a nonstressed, ambulatory subject supports the diagnosis of Diabetes Mellitus. PERFORMED BY: [facility] [address] [place] [address] PATHOLOGIST HANDS AND DIAL INSPECTOR DEONNA COURTNEY M.D. Performed By: #### G LULS ####Point of Care testing, Glucose Poct Glucometerson 0 03-07-2023 Glucose [Mass/Vol] 259 mg/dL Normal [facility] Comment on above: Result Comment: [facility] Glucose Reference Range is dependent on time and content of last meal. Glucose of more than 200 mg/dL in a nonstressed, ambulatory subject supports the diagnosis of Diabetes Mellitus. PERFORMED BY: [facility] [address] [place] [address] PATHOLOGIST HANDS AND DIAL INSPECTOR DEONNA COURTNEY M.D. Performed By: #### G LULS ####Point of Care testing, Commemt1 Glu2: Cleaned Meter Normal [facility] Comment on above: Result Comment: PERF ORMED BY: [address] [place] [address] PATHOLOGIST HANDS AND DIAL INSPECTOR DEONNA COURTNEY M.D. Performed By: #### G LULS ####Point of Care testing, Glucose [Mass/Vol] 358 mg/dL Normal [facility] Comment on above: Result Comment: [place] Glucose Reference Range is dependent on time and content of last meal. Glucose of more than 200 mg/dL in a nonstressed, ambulatory subject supports the diagnosis of Diabetes Mellitus. Performed By: #### G LULS ####Point of Care testing, Glucose [Mass/Vol] 220 mg/dL Normal [facility] Comment on above: Result Comment: [place] Glucose Reference Range is dependent on time and content of last meal. Glucose of more than 200 mg/dL in a nonstressed, ambulatory subject supports the diagnosis of Diabetes Mellitus. PERFORMED BY: [address] [place] [address] PATHOLOGIST HANDS AND DIAL INSPECTOR DEONNA COURTNEY M.D. Performed By: #### G LULS ####Point of Care testing, Glucose [Mass/Vol] 251 mg/dL Normal [facility] Comment on above: Result Comment: [place] Glucose Reference Range is dependent on time and content of last meal. Glucose of more than 200 mg/dL in a nonstressed, ambulatory subject supports the diagnosis of Diabetes Mellitus. PERFORMED BY: [address] [place] [address] PATHOLOGIST HANDS AND DIAL INSPECTOR DEONNA COURTNEY M.D. Performed By: #### G LULS ####Point of Care testing, Glucose Poct Glucometerson 0 03-06-2023 Glucose [Mass/Vol] 163 mg/dL Normal [facility] Comment on above: Result Comment: [place] Glucose Reference Range is dependent on time and content of last meal. Glucose of more than 200 mg/dL in a nonstressed, ambulatory subject supports the diagnosis of Diabetes Mellitus. PERFORMED BY: [address] [place] [address] PATHOLOGIST HANDS AND DIAL INSPECTOR DEONNA COURTNEY M.D. Performed By: #### G LULS ####Point of Care testing, Commemt1 Glu2: Cleaned Meter Normal [facility] Comment on above: Result Comment: PERF ORMED BY: [address] [place] [address] PATHOLOGIST HANDS AND DIAL INSPECTOR DEONNA COURTNEY M.D. Performed By: #### G LULS #### Point of Care testing , Glucose [Mass/Vol] 224 mg/dL Normal [facility] Comment on above: Result Comment: [place] Glucose Reference Range is dependent on time and content of last meal. Glucose of more than 200 mg/dL in a nonstressed, ambulatory subject supports the diagnosis of Diabetes Mellitus. Performed By: #### G LULS #### Point of Care testing , Commemt1 [facility] Comment on above: Result Comment: Glu2 : WILL NOTIFY DR/RN PERFORMED BY: [address] [place] [address] PATHOLOGIST HANDS AND DIAL INSPECTOR DEONNA COURTNEY M.D. Performed By: #### G LULS ####Point of Care testing, Glucose [Mass/Vol] 332 mg/dL Normal [facility] Comment on above: Result Comment: [place] Glucose Reference Range is dependent on time and content of last meal. Glucose of more than 200 mg/dL in a nonstressed, ambulatory subject supports the diagnosis of Diabetes Mellitus. Performed By: #### G LULS ####Point of Care testing, Glucose Poct Glucometerson 0 03-05-2023 Glucose [Mass/Vol] 170 mg/dL Normal [facility] Comment on above: Result Comment: [place] Glucose Reference Range is dependent on time and content of last meal. Glucose of more than 200 mg/dL in a nonstressed, ambulatory subject supports the diagnosis of Diabetes Mellitus. PERFORMED BY: [address] [place] [id number] PATHOLOGIST HANDS AND DIAL INSPECTOR DEONNA COURTNEY M.D. Performed By: #### G LULS ####Point of Care testing, Glucose [Mass/Vol] 98 mg/dL Normal [facility] Comment on above: Result Comment: [facility] Glucose Reference Range is dependent on time and content of last meal. Glucose of more than 200 mg/dL in a nonstressed, ambulatory subject supports the diagnosis of Diabetes Mellitus. PERFORMED BY: [address] [address] PATHOLOGIST HANDS AND DIAL INSPECTOR DEONNA COURTNEY M.D. Performed By: #### G LULS ####Point of Care testing, Glucose [Mass/Vol] 102 mg/dL Normal [facility] Comment on above: Result Comment: [facility] Glucose Reference Range is dependent on time and content of last meal. Glucose of more than 200 mg/dL in a nonstressed, ambulatory subject supports the diagnosis of Diabetes Mellitus. PERFORMED BY: [address] [address] PATHOLOGIST HANDS AND DIAL INSPECTOR DEONNA COURTNEY M.D. Performed By: #### G LULS #### Point of Care testing , XR chest 1V portableon 03-05 XR chest 1V portable [facility] Main [place] [address] [place] [address] XRay Report Signed Patient: Akbar Byrnes MR#: [id number] : 1960 Acct:[id number] Age/Sex: 62 / M ADM Date: 03/02/23 Loc: Room: [address] [place] [address] Type: ADM IN Attending Dr: Devin Starks [...] Tavares Jr., D.O.03/05/2023 8:28 AM Dictation Location: [place] [address] Transcribed By: [facility] 03/05/23827 Dictated By: Landen Tavares Jr, DO 03/05/23815 Signed By: 03/05/23827 Normal [facility] Blood Urea Nitrogenon 2022 Urea nitrogen [Mass/Vol] 12 mg/dL Normal 03-10 [facility] Comment on above: Performed By: #### G LULS #### Point of Care testing , Complete Blood Count Auto Di ffon 03-04-2023 Basophils (Bld) [#/Vol] 0.1 10*3/uL Normal 0.0-0.2 [facility] Comment on above: Result Comment: PERF ORMED BY: [facility] [address] [place] [address] PATHOLOGIST HANDS AND DIAL INSPECTOR DEONNA COURTNEY M.D. Performed By: #### C BC, CREAT LYTES, BUN ####[place] [id number] [facility] Basophils/100 WBC (Bld) 0.4 % Normal . [facility] Comment on above: Performed By: #### C BC, CREAT LYTES, BUN ####[place] [address] [place] [address] [facility] Eosinophils (Bld) [#/Vol] 0.1 10*3/uL Normal 0.0-0.45 [facility] Comment on above: Performed By: #### C BC, CREAT LYTES, BUN ####[place] [id number] [facility] Eosinophils/100 WBC (Bld) 1.1 % Normal . [facility] Comment on above: Performed By: #### C BC, CREAT LYTES, BUN ####[place] [address] [place] [id number] [facility] Erythrocyte distribution width (RBC) [Ratio] 14.1 % Normal 12.0-14.8 [facility] Comment on above: Performed By: #### C SOFIA PADILLA LYTES BUN ####[address] Hematocrit (Bld) [Volume fraction] 39.7 % Normal 38.8-50.0 [facility] Comment on above: Performed By: #### C SOFIA PADILLA LYTES BUN ####[address] Hemoglobin (Bld) [Mass/Vol] 13.8 g/dL Normal 13.0-17.0 [facility] Comment on above: Performed By: #### C SOFIA PADILLA LYTES BUN ####[address] Lymphocytes (Bld) [#/Vol] 2.7 10*3/uL Normal 1.00-4.8 [facility] Comment on above: Performed By: #### C SOFIA PADILLA LYTES BUN ####[address] Lymphocytes/100 WBC (Bld) 22.8 % Normal . [facility] Comment on above: Performed By: #### C SOFIA PADILLA LYTES BUN ####[address] MCH (RBC) [Entitic mass] 31.2 pg Normal 27.5-35.2 [facility] Comment on above: Performed By: #### C SOFIA PADILLA LYTES BUN ####[address] MCV (RBC) [Entitic vol] 89.6 fL Normal 83.5-101 [facility] Comment on above: Performed By: #### C SOFIA PADILLA LYTES BUN ####[address] Mean Corpuscular HGB Conc 34.9 g/dL Normal 32.5-35.6 [facility] Comment on above: Performed By: #### C SOFIA PADILLA, LYTES, BUN ####[address] Monocytes (Bld) [#/Vol] 1.0 10*3/uL High 0.0-0.8 [facility] Comment on above: Performed By: #### C BC, CREAT, LYTES, BUN ####[address] Monocytes/100 WBC (Bld) 8.8 % Normal . [facility] Comment on above: Performed By: #### C BC, CREAT, LYTES, BUN ####[address] Neutrophils (Bld) [#/Vol] 7.9 10*3/uL High 1.8-7.7 [facility] Comment on above: Performed By: #### C BC, CREAT, LYTES, BUN ####[address] Neutrophils/100 WBC (Bld) 66.9 % Normal . [facility] Comment on above: Performed By: #### C BC, CREAT, LYTES, BUN ####[address] NRBC% 0.1 /100{WBC} Normal 0-0.5 [facility] Comment on above: Performed By: #### C BC, CREAT, LYTES, BUN ####[address] Platelet mean volume (Bld) [Entitic vol] 8.7 fL Normal 6.6-10.1 [facility] Comment on above: Performed By: #### C BC, CREAT, LYTES, BUN ####[address] Platelets (Bld) [#/Vol] 252 10*3/uL Normal 150-450 [facility] Comment on above: Performed By: #### C BC, CREAT, LYTES, BUN ####[address] [place] [address] [place] RBC (Bld) [#/Vol] 4.43 10*6/uL Normal 3.90-5.60 [facility] Comment on above: Performed By: #### C BC, CREAT LYTES, BUN ####[address] WBC (Bld) [#/Vol] 11.8 10*3/uL High 4.1-10.5 [facility] Comment on above: Performed By: #### C BC, CREAT LYTES, BUN ####[address] Creatinineon 03-04-2023 Creatinine [Mass/Vol] 0.48 mg/dL Low 0.70-1.30 [facility] Comment on above: Performed By: #### G LULS #### Point of Care testing , Creatinine Clr Calc Pharmacy 142.19 [facility] Comment on above: Result Comment: PERF ORMED BY: [facility] [address] [facility] [place] [address] PATHOLOGIST HANDS AND DIAL INSPECTOR DEONNA COURTNEY M.D. Performed By: #### G LULS #### Point of Care testing , GFR/1.73 sq M.predicted MDRD (S/P/Bld) [Vol rate/Area] mL/min/{1.73_m2} [facility] Comment on above: Performed By: #### G LULS #### Point of Care testing , Electrolyteson 03-04-2023 Anion gap [Moles/Vol] 7.5 mmol/L Normal 6.0-15.0 [facility] Comment on above: Performed By: #### C BC CREAT LYTES, BUN ####[address] Chloride [Moles/Vol] 107 mmol/L Normal 98-107 [facility] Comment on above: Performed By: #### C BC, CREAT LYTES, BUN ####[address] CO2 [Moles/Vol] 25.1 mmol/L Normal 21.0-31.0 [facility] Comment on above: Performed By: #### C SOFIA PADILLA LYTES, BUN ####[facility] [place] [address] [facility] Potassium [Moles/Vol] 3.6 mmol/L Normal 3.5-5.1 [facility] Comment on above: Performed By: #### C SOFIA PADILLA LYTES, BUN ####[facility] [place] [address] [facility] Sodium [Moles/Vol] 136 mmol/L Normal 136-[address] [facility] Comment on above: Performed By: #### C SOFIA PADILLA LYTES, BUN ####[place] [id number] [facility] Glucose Poct Glucometerson 0 03-04-2023 Commemt1 Glu2: Cleaned Meter Normal [facility] Comment on above: Result Comment: PERF ORMED BY: [facility] [address] [place] [address] PATHOLOGIST HANDS AND DIAL INSPECTOR DEONNA COURTNEY M.D. Performed By: #### G LULS ####Point of Care testing, Glucose [Mass/Vol] 176 mg/dL Normal [facility] Comment on above: Result Comment: [facility] Glucose Reference Range is dependent on time and content of last meal. Glucose of more than 200 mg/dL in a nonstressed, ambulatory subject supports the diagnosis of Diabetes Mellitus. Performed By: #### G LULS ####Point of Care testing, Glucose [Mass/Vol] 92 mg/dL Normal [facility] Comment on above: Result Comment: [place] Glucose Reference Range is dependent on time and content of last meal. Glucose of more than 200 mg/dL in a nonstressed, ambulatory subject supports the diagnosis of Diabetes Mellitus. PERFORMED BY: [facility] [address] [place] [id number] PATHOLOGIST HANDS AND DIAL INSPECTOR DEONNA COURTNEY M.D. Performed By: #### G LULS ####Point of Care testing, Glucose [Mass/Vol] 174 mg/dL Normal [facility] Comment on above: Result Comment: [place] om Glucose Reference Range is dependent on time and content of last meal. Glucose of more than 200 mg/dL in a nonstressed, ambulatory subject supports the diagnosis of Diabetes Mellitus. PERFORMED BY: [place] [id number] PATHOLOGIST HANDS AND DIAL INSPECTOR DEONNA COURTNEY M.D. Performed By: #### G LULS ####Point of Care testing, Commemt1 Normal [facility] Comment on above: Result Comment: Glu2 : FOLLOW HYPOGLYCEMIC PERFORMED BY: [address] [address] PATHOLOGIST HANDS AND DIAL INSPECTOR DEONNA COURTNEY M.D. Performed By: #### G LULS #### Point of Care testing , Glucose [Mass/Vol] 52 mg/dL Off scale low [facility] Comment on above: Result Comment: [place] Glucose Reference Range is dependent on time and content of last meal. Glucose of more than 200 mg/dL in a nonstressed, ambulatory subject supports the diagnosis of Diabetes Mellitus. Performed By: #### G LULS #### Point of Care testing , Glucose [Mass/Vol] 177 mg/dL Normal [facility] Comment on above: Result Comment: [place] Glucose Reference Range is dependent on time and content of last meal. Glucose of more than 200 mg/dL in a nonstressed, ambulatory subject supports the diagnosis of Diabetes Mellitus. PERFORMED BY: [address] [address] PATHOLOGIST HANDS AND DIAL INSPECTOR DEONNA COURTNEY M.D. Performed By: #### G LULS ####Point of Care testing, XR chest 1V portableon 03-04 XR chest 1V portable [facility] Main [place] [address] [place] [address] XRay Report Signed Patient: Akbar Byrnes MR#: [id number] : 1960 Acct:[id number] Age/Sex: 62 / M ADM Date: 03/02/23 Loc: Room: [address] [place] [address] Type: ADM IN Attending Dr: Devin Starks [...] Eden Milton M.D.03/04/2023 7:29 AM Dictation Location: [place] [address] Transcribed By: [facility] 03/04/23728 Dictated By: Eden Milton MD 03/04/2327 Signed By: 03/04/2329 Normal [facility] A1C with Estimated Average G alisson 03-03-2023 Glucose [Mass/Vol] 404 mg/dL Normal [facility] Comment on above: Result Comment: PERF ORMED BY: [facility] [address] [place] [address] PATHOLOGIST HANDS AND DIAL INSPECTOR DEONNA COURTNEY M.D. Performed By: #### A 1C [facility] eA ####[place] [id number] [place] [id number] [facility] HbA1c (Bld) [Mass fraction] 15.7 % High 4.3-5.6 [facility] Comment on above: Result Comment: Incr eased risk for diabetes: 5.7 - 6.4 diabetes: >6.4 glycemic control for adults with diabetes: <7.0 Performed By: #### A 1C [facility] eA ####[place] [address] [place] [address] [facility] Comprehensive Metabolic Pane dorothy 03-03-2023 Albumin [Mass/Vol] 3.2 g/dL Low 3.5-5.[address] [facility] Comment on above: Performed By: #### H S TROP, PT, CK, SCAN CBC, CMP, PTT ####[address] Albumin/Globulin [Mass ratio] 1.0 {ratio} Normal [facility] Comment on above: Performed By: #### H S TROP, PT, CK, SCAN CBC, CMP, PTT ####[address] ALP [Catalytic activity/Vol] 178 U/L High 34-104 [facility] Comment on above: Performed By: #### H S TROP, PT, CK, SCAN CBC, CMP, PTT ####[address] ALT [Catalytic activity/Vol] 20 U/L Normal 7-52 [facility] Comment on above: Performed By: #### H S TROP, PT, CK, SCAN CBC, CMP, PTT ####[address] Anion gap [Moles/Vol] 9.2 mmol/L Normal 6.0-15.0 [facility] Comment on above: Performed By: #### H S TROP, PT, CK, SCAN CBC, CMP, PTT ####[place] [id number] [facility] AST [Catalytic activity/Vol] 19 U/L Normal 13-39 [facility] Comment on above: Performed By: #### H S TROP, PT, CK, SCAN CBC, CMP, PTT ####[place] [id number] [facility] Bilirubin [Mass/Vol] 0.6 mg/dL Normal 0.3-1.0 [facility] Comment on above: Performed By: #### H S TROP, PT, CK, SCAN CBC, CMP, PTT ####[place] [id number] [facility] Calcium [Mass/Vol] 9.1 mg/dL Normal 8.6-10.[address] [facility] Comment on above: Performed By: #### H S TROP, PT, CK, SCAN CBC, CMP, PTT ####[place] [address] [address] Chloride [Moles/Vol] 106 mmol/L Normal 98-107 [facility] Comment on above: Performed By: #### H S TROP, PT, CK, SCAN CBC, CMP, PTT ####[address] CO2 [Moles/Vol] 23.7 mmol/L Normal 21.0-31.0 [facility] Comment on above: Performed By: #### H S TROP, PT, CK, SCAN CBC, CMP, PTT ####[address] Creatinine [Mass/Vol] 0.59 mg/dL Low 0.70-1.30 [facility] Comment on above: Performed By: #### H S TROP, PT, CK, SCAN CBC, CMP, PTT ####[address] Creatinine Clr Calc Pharmacy 115.68 [facility] Comment on above: Result Comment: PERF ORMED BY: [facility] [address] [place] [address] PATHOLOGIST HANDS AND DIAL INSPECTOR DEONNA COURTNEY M.D. Performed By: #### H S TROP, PT, CK, SCAN CBC, CMP, PTT ####[address] GFR/1.73 sq M.predicted MDRD (S/P/Bld) [Vol rate/Area] mL/min/{1.73_m2} [facility] Comment on above: Performed By: #### H S TROP, PT, CK, SCAN CBC, CMP, PTT ####[place] [id number] [address] Globulin (S) [Mass/Vol] 3.1 g/dL [facility] Comment on above: Performed By: #### H S TROP, PT, CK, SCAN CBC, CMP, PTT ####[place] [id number] [address] Glucose [Mass/Vol] 243 mg/dL Significant change up 70-100 [facility] Comment on above: Result Comment: [facility] Glucose Reference Range is dependent on time and content of last meal. Glucose of more than 200 mg/dL in a nonstressed, ambulatory subject supports the diagnosis of Diabetes Mellitus. ADA recommended reference range Performed By: #### H S TROP, PT, CK, SCAN CBC, CMP, PTT ####[address] Potassium [Moles/Vol] 3.9 mmol/L Normal 3.5-5.1 [facility] Comment on above: Result Comment: Hemo lysis is present at a level that could interfere with the result. Performed By: #### H S TROP, PT, CK, SCAN CBC, CMP, PTT ####[address] Protein [Mass/Vol] 6.3 g/dL Low 6.4-8.[address] [facility] Comment on above: Performed By: #### H S TROP, PT, CK, SCAN CBC, CMP, PTT ####[address] Sodium [Moles/Vol] 135 mmol/L Low 136-[address] [facility] Comment on above: Performed By: #### H S TROP, PT, CK, SCAN CBC, CMP, PTT ####[place] [id number] [facility] Urea nitrogen [Mass/Vol] 13 mg/dL Normal 7-25 [facility] Comment on above: Performed By: #### H S TROP, PT, CK, SCAN CBC, CMP, PTT ####[place] [id number] [facility] Creatine Kinaseon 03-03-2023 CK [Catalytic activity/Vol] 111 U/L Normal 30-223 [facility] Comment on above: Performed By: #### H S TROP, PT, CK, SCAN CBC, CMP, PTT ####[address] [place] [address] [facility] Dipstick and Microscopicon 0 03-03-2023 Appearance (U) Clear Normal Clear [facility] Comment on above: Order Comment: Name Collection Type:: Clean-Voided Midstream Performed By: #### A DDONUAPLUS ####[place] [address] [place] [address] [facility] Bacteria,Urine None Seen Normal None Seen [facility] Comment on above: Order Comment: Name Collection Type:: Clean-Voided Midstream Performed By: #### A DDONUAPLUS ####[address] [address] [place] Bilirubin,Urine Negative Normal Negative [facility] Comment on above: Order Comment: Name Collection Type:: Clean-Voided Midstream Performed By: #### A DDONUAPLUS ####[address] [address] [place] Color (U) Yellow Normal Yellow [facility] Comment on above: Order Comment: Name Collection Type:: Clean-Voided Midstream Performed By: #### A DDONUAPLUS ####[address] [address] [place] Glucose Ql (U) >=1000 High Normal [facility] Comment on above: Order Comment: Name Collection Type:: Clean-Voided Midstream Performed By: #### A DDONUAPLUS ####[address] [address] [place] Hyaline Casts,Urine None Seen Normal 0-8 [facility] Comment on above: Order Comment: Name Collection Type:: Clean-Voided Midstream Result Comment: PERF ORMED BY: [facility] [address] [place] [address] PATHOLOGIST HANDS AND DIAL INSPECTOR DEONNA COURTNEY M.D. Performed By: #### A DDONUAPLUS ####[place] [address] [place] [address] [place] Ketones Ql (U) Negative Normal Negative [facility] Comment on above: Order Comment: Name Collection Type:: Clean-Voided Midstream Performed By: #### A DDONUAPLUS ####[address] [address] [facility] Leukocyte esterase Test strip Ql (U) Negative Normal Negative [facility] Comment on above: Order Comment: Name Collection Type:: Clean-Voided Midstream Performed By: #### A DDONUAPLUS ####[address] [address] [place] Nitrite,Urine Negative Normal Negative [facility] Comment on above: Order Comment: Name Collection Type:: Clean-Voided Midstream Performed By: #### A DDONUAPLUS ####[address] [address] [facility] Occult Blood,Urine Negative Normal Negative [facility] Comment on above: Order Comment: Name Collection Type:: Clean-Voided Midstream Result Comment: PERF ORMED BY: [facility] [address] [place] [id number] PATHOLOGIST HANDS AND DIAL INSPECTOR DEONNA COURTNEY M.D. Performed By: #### A DDONUAPLUS ####[address] [address] [facility] pH (U) 6.0 [pH] Normal 5.0-9.0 [facility] Comment on above: Order Comment: Name Collection Type:: Clean-Voided Midstream Performed By: #### A DDONUAPLUS ####[address] [address] [facility] Protein,Urine Trace High Negative [facility] Comment on above: Order Comment: Name Collection Type:: Clean-Voided Midstream Performed By: #### A DDONUAPLUS ####[address] [address] [place] RBC LM.HPF (Urine sed) [#/Area] 0 /[HPF] Normal 0-4 [facility] Comment on above: Order Comment: Name Collection Type:: Clean-Voided Midstream Performed By: #### A DDONUAPLUS ####[address] [address] [facility] Specificy [place],Urine 1.029 Normal 1.001-1.030 [facility] Comment on above: Order Comment: Name Collection Type:: Clean-Voided Midstream Performed By: #### A DDONUAPLUS ####[place] [id number] [facility] Squamous Epithelial Cell,Urine None Seen Normal 0-2 [facility] Comment on above: Order Comment: Name Collection Type:: Clean-Voided Midstream Performed By: #### A DDONUAPLUS ####[place] [id number] [facility] Urobilinogen,Urine Normal Normal Normal [facility] Comment on above: Order Comment: Name Collection Type:: Clean-Voided Midstream Performed By: #### A DDONUAPLUS ####[place] [id number] [facility] WBC LM.HPF (Urine sed) [#/Area] 0 /[HPF] Normal 0-4 [facility] Comment on above: Order Comment: Name Collection Type:: Clean-Voided Midstream Performed By: #### A DDONUAPLUS ####[place] [id number] [facility] Glucose Poct Glucometerson 0 03-03-2023 Glucose [Mass/Vol] 42 mg/dL Off scale low [facility] Comment on above: Result Comment: [facility] Glucose Reference Range is dependent on time and content of last meal. Glucose of more than 200 mg/dL in a nonstressed, ambulatory subject supports the diagnosis of Diabetes Mellitus. PERFORMED BY: [address] [address] PATHOLOGIST HANDS AND DIAL INSPECTOR DEONNA COURTNEY M.D. Performed By: #### G LULS ####Point of Care testing, Glucose [Mass/Vol] 175 mg/dL Normal [facility] Comment on above: Result Comment: [facility] Glucose Reference Range is dependent on time and content of last meal. Glucose of more than 200 mg/dL in a nonstressed, ambulatory subject supports the diagnosis of Diabetes Mellitus. PERFORMED BY: [address] [place] [address] PATHOLOGIST HANDS AND DIAL INSPECTOR DEONNA COURTNEY M.D. Performed By: #### G LULS #### Point of Care testing , Glucose [Mass/Vol] 338 mg/dL Normal [facility] Comment on above: Result Comment: [place] Glucose Reference Range is dependent on time and content of last meal. Glucose of more than 200 mg/dL in a nonstressed, ambulatory subject supports the diagnosis of Diabetes Mellitus. PERFORMED BY: [facility] [address] [address] PATHOLOGIST HANDS AND DIAL INSPECTOR DEONNA COURTNEY M.D. Performed By: #### G LULS ####Point of Care testing, Glucose [Mass/Vol] 312 mg/dL Normal [facility] Comment on above: Result Comment: [facility] Glucose Reference Range is dependent on time and content of last meal. Glucose of more than 200 mg/dL in a nonstressed, ambulatory subject supports the diagnosis of Diabetes Mellitus. PERFORMED BY: [facility] [address] [place] [address] PATHOLOGIST HANDS AND DIAL INSPECTOR DEONNA COURTNEY M.D. Performed By: #### G LULS #### Point of Care testing , Partial Thromboplastin Timeo n 03-03-2023 aPTT Coag (Bld) [Time] 21.4 s Low 25.1-36.5 [facility] Comment on above: Result Comment: PERF ORMED BY: [facility] [address] [place] [id number] PATHOLOGIST HANDS AND DIAL INSPECTOR DEONNA COURTNEY M.D. Performed By: #### H S TROP, PT, CK, SCAN CBC, CMP, PTT ####[facility] [address] [place] [address] [facility] Prothrombin Time INRon 03-03 INR Coag (PPP) [Relative time] 1.0 {INR} Normal [facility] Comment on above: Result Comment: INR Therapeutic [...] PT, CK, SCAN CBC, CMP, PTT #### [facility] [address] PT Coag (PPP) [Time] 11.2 s Normal 9.0-12.9 [facility] Comment on above: Performed By: #### H S TROP, PT, CK, SCAN CBC, CMP, PTT #### [address] Scan and CBCon 03-03-2023 Basophils (Bld) [#/Vol] 0.1 10*3/uL Normal 0.0-0.2 [facility] Comment on above: Result Comment: PERF ORMED BY: [place] [address] PATHOLOGIST HANDS AND DIAL INSPECTOR DEONNA COURTNEY M.D. Performed By: #### H S TROP, PT, CK, SCAN CBC, CMP, PTT ####[address] Basophils/100 WBC (Bld) 0.9 % Normal . [facility] Comment on above: Performed By: #### H S TROP, PT, CK, SCAN CBC, CMP, PTT ####[address] Eosinophils (Bld) [#/Vol] 0.3 10*3/uL Normal 0.0-0.45 [facility] Comment on above: Performed By: #### H S TROP, PT, CK, SCAN CBC, CMP, PTT ####[address] Eosinophils/100 WBC (Bld) 2.1 % Normal . [facility] Comment on above: Performed By: #### H S TROP, PT, CK, SCAN CBC, CMP, PTT ####[address] Erythrocyte distribution width (RBC) [Ratio] 14.0 % Normal 12.0-14.8 [facility] Comment on above: Performed By: #### H S TROP, PT, CK, SCAN CBC, CMP, PTT ####[address] Hematocrit (Bld) [Volume fraction] 40.9 % Normal 38.8-50.0 [facility] Comment on above: Performed By: #### H S TROP, PT, CK, SCAN CBC, CMP, PTT ####[address] Hemoglobin (Bld) [Mass/Vol] 13.9 g/dL Normal 13.0-17.0 [facility] Comment on above: Performed By: #### H S TROP, PT, CK, SCAN CBC, CMP, PTT ####[address] Hypochromasia Slight Normal [facility] Comment on above: Performed By: #### H S TROP, PT, CK, SCAN CBC, CMP, PTT ####[address] Lymphocytes (Bld) [#/Vol] 3.1 10*3/uL Normal 1.00-4.8 [facility] Comment on above: Performed By: #### H S TROP, PT, CK, SCAN CBC, CMP, PTT ####[address] Lymphocytes/100 WBC (Bld) 24.8 % Normal . [facility] Comment on above: Performed By: #### H S TROP, PT, CK, SCAN CBC, CMP, PTT ####[address] MCH (RBC) [Entitic mass] 30.5 pg Normal 27.5-35.2 [facility] Comment on above: Performed By: #### H S TROP, PT, CK, SCAN CBC, CMP, PTT ####[address] MCV (RBC) [Entitic vol] 89.6 fL Normal 83.5-101 [facility] Comment on above: Performed By: #### H S TROP, PT, CK, SCAN CBC, CMP, PTT ####[address] Mean Corpuscular HGB Conc 34.1 g/dL Normal 32.5-35.6 [facility] Comment on above: Performed By: #### H S TROP, PT, CK, SCAN CBC, CMP, PTT ####[address] Monocytes (Bld) [#/Vol] 0.9 10*3/uL High 0.0-0.8 [facility] Comment on above: Performed By: #### H S TROP, PT, CK, SCAN CBC, CMP, PTT ####[address] Monocytes/100 WBC (Bld) 7.4 % Normal . [facility] Comment on above: Performed By: #### H S TROP, PT, CK, SCAN CBC, CMP, PTT ####[address] Neutrophils (Bld) [#/Vol] 8.0 10*3/uL High 1.8-7.7 [facility] Comment on above: Performed By: #### H S TROP, PT, CK, SCAN CBC, CMP, PTT ####[address] Neutrophils/100 WBC (Bld) 64.8 % Normal . [facility] Comment on above: Performed By: #### H S TROP, PT, CK, SCAN CBC, CMP, PTT ####[address] NRBC% 0.2 /100{WBC} Normal 0-0.5 [facility] Comment on above: Performed By: #### H S TROP, PT, CK, SCAN CBC, CMP, PTT ####[address] Ovalocytes Slight Normal [facility] Comment on above: Performed By: #### H S TROP, PT, CK, SCAN CBC, CMP, PTT ####[place] [address] [place] [id number] [facility] Platelet Estimate Normal Normal Normal [facility] Comment on above: Performed By: #### H S TROP, PT, CK, SCAN CBC, CMP, PTT ####[place] [address] [place] [id number] [facility] Platelet mean volume (Bld) [Entitic vol] 9.3 fL Normal 6.6-10.1 [facility] Comment on above: Performed By: #### H S TROP, PT, CK, SCAN CBC, CMP, PTT ####[place] [id number] [facility] Platelet Morphology Normal Normal Normal [facility] Comment on above: Result Comment: PERF ORMED BY: [facility] [address] [place] [address] PATHOLOGIST HANDS AND DIAL INSPECTOR DEONNA COURTNEY M.D. Performed By: #### H S TROP, PT, CK, SCAN CBC, CMP, PTT ####[place] [id number] [facility] Platelets (Bld) [#/Vol] 188 10*3/uL Significant change down 150-450 [facility] Comment on above: Performed By: #### H S TROP, PT, CK, SCAN CBC, CMP, PTT ####[place] [address] [facility] Polychromasia Slight Normal [facility] Comment on above: Performed By: #### H S TROP, PT, CK, SCAN CBC, CMP, PTT ####[place] [id number] [facility] RBC (Bld) [#/Vol] 4.57 10*6/uL Normal 3.90-5.60 [facility] Comment on above: Performed By: #### H S TROP, PT, CK, SCAN CBC, CMP, PTT ####[place] [id number] [facility] WBC (Bld) [#/Vol] 12.3 10*3/uL High 4.1-10.5 [facility] Comment on above: Performed By: #### H S TROP, PT, CK, SCAN CBC, CMP, PTT ####[facility] [place] [id number] [facility] WBC (Bld) [#/Vol] 14.2 10*3/uL High 4.1-10.5 [facility] Comment on above: Performed By: #### H S TROP, PT, CK, SCAN CBC, CMP, PTT ####[facility] [place] [address] [facility] Troponin I High Sensitivityo n 03-03-2023 Troponin I High Sensitivity 4.4 pg/mL Normal 0.0-20.0 [facility] Comment on above: Result Comment: PERF ORMED BY: [place] [address] PATHOLOGIST HANDS AND DIAL INSPECTOR DEONNA COURTNEY M.D. Performed By: #### H S TROP, PT, CK, SCAN CBC, CMP, PTT ####[place] [address] [place] [id number] [facility] XR chest 1V portableon 03-03 XR chest 1V portable [facility] [place] [address] XRay Report Signed Patient: Akbar Byrnes MR#: [id number] : 1960 Acct:[id number] Age/Sex: 62 / M ADM Date: 03/02/23 Loc: Room: [address] [place] [address] Type: ADM IN Attending Dr: Devin Starks [...] DO 03/03/23 0807 Signed By: 03/03/23 0808 [facility] XR chest 1V portable [facility] Main [address] [address] XRay Report Signed Patient: Akbar Byrnes MR#: [id number] : 1960 Acct:[id number] Age/Sex: 62 / M ADM Date: 03/02/23 Loc: Room: [address] [place] [address] Type: ADM IN Attending Dr: Devin Starks [...] 7:11 AM Dictation Location: RADIO-PC-10 Transcribed By: [facility] 03/03/23 0711 Dictated By: Eden Milton MD 03/03/23 0709 Signed By: 03/03/23 07 [facility] ABO/Rh Retypeon 03-02-2023 ABO/RH Recheck Result Positive Normal [facility] Comment on above: Result Comment: PERF ORMED BY: [address] [place] [address] PATHOLOGIST HANDS AND DIAL INSPECTOR DEONNA COURTNEY M.D. Activated partial thrombopla stin time (aPTT) in platelet poor plasma by coagulation aOrdered By: Zachariah Saldaña on 03-02-2023 aPTT Coag (PPP) [Time] 30.0 s 25.1-36.5 [facility] Alanine aminotransferase [En zymatic activity/volume] in Serum or PlasmaOrdered By: Zachariah Saldaña on 03-02-2023 ALT [Catalytic activity/Vol] 22 U/L 7-52 [facility] Albumin [Mass/volume] in Ser um or Plasma by Bromocresol green (BCG) dye binding methoOrdered By: Zachariah Saldaña on 03-02-2023 Albumin BCG dye [Mass/Vol] 3.5 g/dL 3.5-5.7 [facility] Alkaline phosphatase [Enzyma tic activity/volume] in Serum or PlasmaOrdered By: Zachariah Saldaña on 03-02-2023 ALP [Catalytic activity/Vol] 234 U/L 34-104 [facility] Aspartate aminotransferase [ Enzymatic activity/volume] in Serum or PlasmaOrdered By: Zachariah Saldaña on 03-02-2023 AST [Catalytic activity/Vol] 20 U/L 13-39 [facility] Automated erythrocytes count in urine sediment (number/area)Ordered By: Zachariah Saldaña on 03-02-2023 RBC Auto (Urine sed) [#/Area] 0-1 [HPF] 0-4 [facility] Automated leukocytes count i n urine sediment (number/area)Ordered By: Zachariah Saldaña on 03-02-2023 WBC Auto (Urine sed) [#/Area] 0-1 [HPF] 0-4 [facility] Basophils Auto (Bld) [#/Vol] Ordered By: Zachariah Saldaña on 03-02-2023 Basophils (Bld) [#/Vol] 0.1 10*3/uL 0.0-0.2 [facility] Basophils/100 WBC Auto (Bld) Ordered By: Zachariah Saldaña on 03-02-2023 Basophils/100 WBC (Bld) 0.6 % . [facility] Bilirubin Test strip Ql (U)O rdered By: Zachariah Saldaña on 07-17-2023 Bilirubin Ql (U) Negative Negative [facility] Bilirubin.total [Mass/volume ] in Serum or PlasmaOrdered By: Zachariah Saldaña on 03-02-2023 Bilirubin [Mass/Vol] 0.5 mg/dL 0.3-1.0 [facility] CT abdomen pelvis w conon CT abdomen pelvis w con [facility] Main [place] [address] [place] [address] CT Scan Report Signed Patient: Akbar Byrnes MR#: [id number] : 1960 Acct:[id number] Age/Sex: 62 / M ADM Date: 03/02/23 Loc: ER Room: Type: [facility] ER Attending Dr: Copies to: Zachariah Saldaña Jr, MD Ordering Provider: Zachariah Saldaña Jr, MD Date of Service: 03/02/23 CT/CT chest w con: traumatic injury ([id number]) CT/CT abdomen pelvis w con: traumatic injury [...] Tavares Jr., D.O.03/02/2023 9:10 PM Dictation Location: [place] [address] Transcribed By: [facility] 03/02/232109 Dictated By: Landen Tavares Jr, DO 03/02/232053 Signed By: 03/02/232109 [facility] CT cervical spine wo [facility] 0 03-02-2023 CT cervical spine wo [facility] Main [place] [address] [place] [address] CT Scan Report Signed Patient: Akbar Byrnes MR#: [id number] : 1960 Acct:[id number] Age/Sex: 62 / M ADM Date: 03/02/23 Loc: ER Room: Type: [facility] ER Attending Dr: Copies to: Zachariah Saldaña Jr, MD Ordering Provider: Zachariah Saldaña Jr, MD Date of Service: 03/02/23 CT/CT cervical spine wo con: traumatic injury ([id number]) CT/CT head/brain wo con: traumatic injury CT [...] Tavares Jr., D.ONohemi03/02/2023 8:52 PM Dictation Location: [place] [address] Transcribed By: [facility] 03/02/232051 Dictated By: Landen Tavares Jr, DO 03/02/232046 Signed By: 03/02/232051 [facility] Calcium [Mass/volume] in Ser um or PlasmaOrdered By: Zachariah Saldaña on 03-02-2023 Calcium [Mass/Vol] 9.7 mg/dL 8.6-10.[address] [facility] Carbon dioxide, total [Moles /volume] in Serum or PlasmaOrdered By: Zachariah Saldaña on 03-02-2023 CO2 [Moles/Vol] 27.1 mmol/L 21.0-31.0 [facility] Chloride [Moles/volume] in S nuno or PlasmaOrdered By: Zachariah Saldaña on 03-02-2023 Chloride [Moles/Vol] 103 mmol/L 98-107 [facility] Color Auto (U)Ordered By: Yanna mooredominguez Piotr on 03-02-2023 Color (U) Yellow Yellow [facility] Complete Blood Count Auto Di ffon 03-02-2023 Basophils (Bld) [#/Vol] 0.1 10*3/uL Normal 0.0-0.2 [facility] Comment on above: Result Comment: PERF ORMED BY: [facility] [address] [facility] [place] [address] PATHOLOGIST HANDS AND DIAL INSPECTOR DEONNA COURTNEY M.D. Performed By: #### H S TROP, CMP, PTT, ETOH, CK, CBC, PT ####[address] Basophils/100 WBC (Bld) 0.6 % Normal . [facility] Comment on above: Performed By: #### H S TROP, CMP, PTT, ETOH, CK, CBC, PT ####[address] Eosinophils (Bld) [#/Vol] 0.2 10*3/uL Normal 0.0-0.45 [facility] Comment on above: Performed By: #### H S TROP, CMP, PTT, ETOH, CK, CBC, PT ####[address] Eosinophils/100 WBC (Bld) 2.3 % Normal . [facility] Comment on above: Performed By: #### H S TROP, CMP, PTT, ETOH, CK, CBC, PT ####[address] Erythrocyte distribution width (RBC) [Ratio] 14.0 % Normal 12.0-14.8 [facility] Comment on above: Performed By: #### H S TROP, CMP, PTT, ETOH, CK, CBC, PT ####[address] Hematocrit (Bld) [Volume fraction] 44.2 % Normal 38.8-50.0 [facility] Comment on above: Performed By: #### H S TROP, CMP, PTT, ETOH, CK, CBC, PT ####[address] Hemoglobin (Bld) [Mass/Vol] 15.1 g/dL Normal 13.0-17.0 [facility] Comment on above: Performed By: #### H S TROP, CMP, PTT, ETOH, CK, CBC, PT ####[address] Lymphocytes (Bld) [#/Vol] 2.5 10*3/uL Normal 1.00-4.8 [facility] Comment on above: Performed By: #### H S TROP, CMP, PTT, ETOH, CK, CBC, PT ####[address] Lymphocytes/100 WBC (Bld) 27.3 % Normal . [facility] Comment on above: Performed By: #### H S TROP, CMP, PTT, ETOH, CK, CBC, PT ####[address] MCH (RBC) [Entitic mass] 31.0 pg Normal 27.5-35.2 [facility] Comment on above: Performed By: #### H S TROP, CMP, PTT, ETOH, CK, CBC, PT ####[address] MCV (RBC) [Entitic vol] 90.7 fL Normal 83.5-101 [facility] Comment on above: Performed By: #### H S TROP, CMP, PTT, ETOH, CK, CBC, PT ####[address] Mean Corpuscular HGB Conc 34.2 g/dL Normal 32.5-35.6 [facility] Comment on above: Performed By: #### H S TROP, CMP, PTT, ETOH, CK, CBC, PT ####[address] Monocytes (Bld) [#/Vol] 0.6 10*3/uL Normal 0.0-0.8 [facility] Comment on above: Performed By: #### H S TROP, CMP, PTT, ETOH, CK, CBC, PT ####[address] Monocytes/100 WBC (Bld) 19.54 % Normal 0.00-20.00 [facility] Comment on above: Performed By: #### H S TROP, CMP, PTT, ETOH, CK, CBC, PT ####[address] Monocytes/100 WBC (Bld) 6.2 % Normal . [facility] Comment on above: Performed By: #### H S TROP, CMP, PTT, ETOH, CK, CBC, PT ####[address] Neutrophils (Bld) [#/Vol] 5.9 10*3/uL Normal 1.8-7.7 [facility] Inc Comment on above: Performed By: #### H S TROP, CMP, PTT, ETOH, CK, CBC, PT ####[address] Neutrophils/100 WBC (Bld) 63.6 % Normal . [facility] Comment on above: Performed By: #### H S TROP, CMP, PTT, ETOH, CK, CBC, PT ####[address] NRBC% 0.2 /100{WBC} Normal 0-0.5 [facility] Comment on above: Performed By: #### H S TROP, CMP, PTT, ETOH, CK, CBC, PT ####[address] Platelet mean volume (Bld) [Entitic vol] 8.7 fL Normal 6.6-10.1 [facility] Comment on above: Performed By: #### H S TROP, CMP, PTT, ETOH, CK, CBC, PT ####[address] Platelets (Bld) [#/Vol] 283 10*3/uL Normal 150-450 [facility] Comment on above: Performed By: #### H S TROP, CMP, PTT, ETOH, CK, CBC, PT ####[address] RBC (Bld) [#/Vol] 4.88 10*6/uL Normal 3.90-5.60 [facility] Comment on above: Performed By: #### H S TROP, CMP, PTT, ETOH, CK, CBC, PT ####[address] WBC (Bld) [#/Vol] 9.3 10*3/uL Normal 4.1-10.[address] [facility] Comment on above: Performed By: #### H S TROP, CMP, PTT, ETOH, CK, CBC, PT ####[address] Comprehensive Metabolic Pane dorothy 03-02-2023 Albumin [Mass/Vol] 3.5 g/dL Normal 3.5-5.[address] [facility] Comment on above: Performed By: #### H S TROP, CMP, PTT, ETOH, CK, CBC, PT ####[address] Albumin/Globulin [Mass ratio] 1.1 {ratio} Normal [facility] Comment on above: Performed By: #### H S TROP, CMP, PTT, ETOH, CK, CBC, PT ####[address] ALP [Catalytic activity/Vol] 234 U/L High 34-104 [facility] Comment on above: Performed By: #### H S TROP, CMP, PTT, ETOH, CK, CBC, PT ####[place] [id number] [facility] ALT [Catalytic activity/Vol] 22 U/L Normal 7-52 [facility] Comment on above: Performed By: #### H S TROP, CMP, PTT, ETOH, CK, CBC, PT ####[place] [id number] [facility] Anion gap [Moles/Vol] 9.2 mmol/L Normal 6.0-15.0 [facility] Comment on above: Performed By: #### H S TROP, CMP, PTT, ETOH, CK, CBC, PT ####[address] AST [Catalytic activity/Vol] 20 U/L Normal 13-39 [facility] Comment on above: Performed By: #### H S TROP, CMP, PTT, ETOH, CK, CBC, PT ####[address] Bilirubin [Mass/Vol] 0.5 mg/dL Normal 0.3-1.0 [facility] Comment on above: Performed By: #### H S TROP, CMP, PTT, ETOH, CK, CBC, PT ####[address] Calcium [Mass/Vol] 9.7 mg/dL Normal 8.6-10.[address] [facility] Comment on above: Performed By: #### H S TROP, CMP, PTT, ETOH, CK, CBC, PT ####[place] [id number] [facility] Chloride [Moles/Vol] 103 mmol/L Normal 98-107 [facility] Comment on above: Performed By: #### H S TROP, CMP, PTT, ETOH, CK, CBC, PT ####[place] [id number] [facility] CO2 [Moles/Vol] 27.1 mmol/L Normal 21.0-31.0 [facility] Comment on above: Performed By: #### H S TROP, CMP, PTT, ETOH, CK, CBC, PT ####[place] [id number] [place] [id number] [facility] Creatinine [Mass/Vol] 0.77 mg/dL Normal 0.70-1.30 [facility] Comment on above: Performed By: #### H S TROP, CMP, PTT, ETOH, CK, CBC, PT ####[place] [address] [place] [id number] [facility] Creatinine Clr Calc Pharmacy 101.58 [facility] Comment on above: Result Comment: PERF ORMED BY: [facility] [address] [place] [address] PATHOLOGIST HANDS AND DIAL INSPECTOR DEONNA COURTNEY M.D. Performed By: #### H S TROP, CMP, PTT, ETOH, CK, CBC, PT ####[address] GFR/1.73 sq M.predicted MDRD (S/P/Bld) [Vol rate/Area] mL/min/{1.73_m2} [facility] Comment on above: Performed By: #### H S TROP, CMP, PTT, ETOH, CK, CBC, PT ####[place] [address] [place] [id number] [facility] Globulin (S) [Mass/Vol] 3.2 g/dL [facility] Comment on above: Performed By: #### H S TROP, CMP, PTT, ETOH, CK, CBC, PT ####[place] [id number] [facility] Glucose [Mass/Vol] 399 mg/dL High 70-[address] [facility] Comment on above: Result Comment: [place] Glucose Reference Range is dependent on time and content of last meal. Glucose of more than 200 mg/dL in a nonstressed, ambulatory subject supports the diagnosis of Diabetes Mellitus. ADA recommended reference range Performed By: #### H S TROP, CMP, PTT, ETOH, CK, CBC, PT ####[place] [id number] [facility] Potassium [Moles/Vol] 4.3 mmol/L Normal 3.5-5.1 [facility] Comment on above: Performed By: #### H S TROP, CMP, PTT, ETOH, CK, CBC, PT ####[place] [id number] Protein [Mass/Vol] 6.7 g/dL Normal 6.4-8.[address] [facility] Comment on above: Performed By: #### H S TROP, CMP, PTT, ETOH, CK, CBC, PT ####[address] Sodium [Moles/Vol] 135 mmol/L Low 136-[address] [facility] Comment on above: Performed By: #### H S TROP, CMP, PTT, ETOH, CK, CBC, PT ####[address] Urea nitrogen [Mass/Vol] 17 mg/dL Normal 7-25 [facility] Comment on above: Performed By: #### H S TROP, CMP, PTT, ETOH, CK, CBC, PT ####[place] [id number] [facility] Creatine Kinaseon 03-02-2023 CK [Catalytic activity/Vol] 84 U/L Normal [facility] Comment on above: Performed By: #### H S TROP, CMP, PTT, ETOH, CK, CBC, PT ####[place] [id number] [facility] Creatine kinase [Enzymatic a ctivity/volume] in Serum or PlasmaOrdered By: Zachariah Saldaña on 03-02-2023 CK [Catalytic activity/Vol] 84 U/L [facility] Creatinine [Mass/volume] in Serum or PlasmaOrdered By: Zachariah Saldaña on 03-02-2023 Creatinine [Mass/Vol] 0.77 mg/dL 0.70-1.30 [facility] Dipstick and Microscopicon 0 03-02-2023 Appearance (U) Clear Normal Clear [facility] Comment on above: Order Comment: Name Collection Type:: Clean-Voided Midstream Performed By: #### A DDONUAPLUS ####[place] [address] [place] [address] [place] Bacteria,Urine None Seen Normal None Seen [facility] Comment on above: Order Comment: Name Collection Type:: Clean-Voided Midstream Performed By: #### A DDONUAPLUS ####[address] [address] [place] Bilirubin,Urine Negative Normal Negative [facility] Comment on above: Order Comment: Name Collection Type:: Clean-Voided Midstream Performed By: #### A DDONUAPLUS ####[address] [address] [place] Color (U) Yellow Normal Yellow [facility] Comment on above: Order Comment: Name Collection Type:: Clean-Voided Midstream Performed By: #### A DDONUAPLUS ####[address] [address] [place] Glucose Ql (U) >=1000 High Normal [facility] Comment on above: Order Comment: Name Collection Type:: Clean-Voided Midstream Performed By: #### A DDONUAPLUS ####[address] [address] [place] Hyaline Casts,Urine None Seen Normal 0-8 [facility] Comment on above: Order Comment: Name Collection Type:: Clean-Voided Midstream Result Comment: PERF ORMED BY: [facility] [address] [facility] [place] [id number] PATHOLOGIST HANDS AND DIAL INSPECTOR DEONNA COURTNEY M.D. Performed By: #### A DDONUAPLUS ####[address] [address] [place] Ketones Ql (U) Negative Normal Negative [facility] Comment on above: Order Comment: Name Collection Type:: Clean-Voided Midstream Performed By: #### A DDONUAPLUS ####[address] [address] [place] Leukocyte esterase Test strip Ql (U) Negative Normal Negative [facility] Comment on above: Order Comment: Name Collection Type:: Clean-Voided Midstream Performed By: #### A DDONUAPLUS ####[place] [address] [place] [address] [place] Nitrite,Urine Negative Normal Negative [facility] Comment on above: Order Comment: Name Collection Type:: Clean-Voided Midstream Performed By: #### A DDONUAPLUS ####[address] [address] [facility] Occult Blood,Urine Negative Normal Negative [facility] Comment on above: Order Comment: Name Collection Type:: Clean-Voided Midstream Result Comment: PERF ORMED BY: [facility] [address] [place] [id number] PATHOLOGIST HANDS AND DIAL INSPECTOR DEONNA COURTNEY M.D. Performed By: #### A DDONUAPLUS ####[address] [address] [facility] pH (U) 6.5 [pH] Normal 5.0-9.0 [facility] Comment on above: Order Comment: Name Collection Type:: Clean-Voided Midstream Performed By: #### A DDONUAPLUS ####[address] [address] [facility] Protein,Urine Trace High Negative [facility] Comment on above: Order Comment: Name Collection Type:: Clean-Voided Midstream Performed By: #### A DDONUAPLUS ####[address] [address] [facility] RBC LM.HPF (Urine sed) [#/Area] 0 /[HPF] Normal 0-4 [facility] Comment on above: Order Comment: Name Collection Type:: Clean-Voided Midstream Performed By: #### A DDONUAPLUS ####[address] [address] [facility] Specificy [place],Urine 1.028 Normal 1.001-1.030 [facility] Comment on above: Order Comment: Name Collection Type:: Clean-Voided Midstream Performed By: #### A DDONUAPLUS ####[address] [address] [facility] Squamous Epithelial Cell,Urine None Seen Normal 0-2 [facility] Comment on above: Order Comment: Name Collection Type:: Clean-Voided Midstream Performed By: #### A DDONUAPLUS ####[place] [address] Urobilinogen,Urine Normal Normal Normal [facility] Comment on above: Order Comment: Name Collection Type:: Clean-Voided Midstream Performed By: #### A DDONUAPLUS ####[place] [address] WBC LM.HPF (Urine sed) [#/Area] 0 /[HPF] Normal 0-4 [facility] Comment on above: Order Comment: Name Collection Type:: Clean-Voided Midstream Performed By: #### A DDONUAPLUS ####[place] [id number] ECG 12 lead ECGon 03-02-2023 ECG 12 lead ECG [facility] Main [place] [address] [place] [address] Electrocardiograph Report Signed Patient: Akbar Byrnes MR#: [id number] : 1960 Acct:[id number] Age/Sex: 62 / M ADM Date: 03/02/23 Loc: Room: [address] [place] [address] Type: ADM IN Attending Dr: Devin Starks [...] now present Confirmed by ZACHARIAH SALDAÑA MD ([id number]) on 03/03/2023 5:47:15 AM Referred By: Electronically Signed By:ZACHARIAH SALDAÑA MD Transcribed By: MUS Signed By Zachariah Saldaña Jr, MD 0547 [facility] Eosinophils Auto (Bld) [#/Vo l]Ordered By: Zachariah Saldaña on 03-02-2023 Eosinophils (Bld) [#/Vol] 0.2 10*3/uL 0.0-0.45 [facility] Eosinophils/100 WBC Auto (Bl d)Ordered By: Zachariah Saldaña on 03-02-2023 Eosinophils/100 WBC (Bld) 2.3 % . [facility] Erythrocyte distribution wid th Auto (RBC) [Ratio]Ordered By: Zachariah Saldaña on 03-02-2023 Erythrocyte distribution width (RBC) [Ratio] 14.0 % 12.0-14.8 [facility] Ethanol [Mass/volume] in Ser um or PlasmaOrdered By: Zachariah Saldaña on 03-02-2023 Ethanol [Mass/Vol] mg/dL [facility] Ethanol [Mass/Vol] TNP [facility] Comment on above: Test not performed Ethyl Alcohol Profileon 02-14 Ethanol [Mass/Vol] mg/dL Normal [facility] Comment on above: Performed By: #### H S TROP, CMP, PTT, ETOH, CK, CBC, PT ####[facility] [id number] [address] Percent Ethanol Not performed Normal [facility] Comment on above: Result Comment: PERF ORMED BY: [facility] [address] [place] [address] PATHOLOGIST HANDS AND DIAL INSPECTOR DEONNA COURTNEY M.D. Performed By: #### H S TROP, CMP, PTT, ETOH, CK, CBC, PT ####[facility] [id number] [place] [id number] [facility] Globulin Calc (S) [Mass/Vol] Ordered By: Zachariah Saldaña on 03-02-2023 Globulin (S) [Mass/Vol] 3.2 g/dL [facility] Glucose Glucometer (BldC) [M ass/Vol]Ordered By: Zachariah Saldaña on 03-02-2023 Glucose [Mass/Vol] 341 mg/dL [facility] Comment on above: Random Glucose Refer ence Range is dependent on time and content of last meal. Glucose of more than 200 mg/dL in a nonstressed, ambulatory subject supports the diagnosis of Diabetes Mellitus. Glucose Poct Glucometerson 0 03-02-2023 Commemt1 Glu2: Cleaned Meter [facility] Comment on above: Performed By: #### G LULS #### Point of Care testing , Commemt2 WILL NOTIFY DR/RN [facility] Comment on above: Result Comment: PERF ORMED BY: [facility] [address] [place] [address] PATHOLOGIST HANDS AND DIAL INSPECTOR DEONNA COURTNEY M.D. Performed By: #### G LULS #### Point of Care testing , Glucose [Mass/Vol] 341 mg/dL Normal [facility] Comment on above: Result Comment: [place] Glucose Reference Range is dependent on time and content of last meal. Glucose of more than 200 mg/dL in a nonstressed, ambulatory subject supports the diagnosis of Diabetes Mellitus. Performed By: #### G LULS #### Point of Care testing , Glucose [Mass/volume] in Ser um or PlasmaOrdered By: Zachariah Saldaña on 03-02-2023 Glucose [Mass/Vol] 399 mg/dL 70-[address] [facility] Comment on above: ADA recommended refe rence rangeRandom Glucose Reference Range is dependent on time and content of last meal. Glucose of more than 200 mg/dL in a nonstressed, ambulatory subject supports the diagnosis of Diabetes Mellitus. Hematocrit Auto (Bld) [Volum e fraction]Ordered By: Zachariah Saldaña on 03-02-2023 Hematocrit (Bld) [Volume fraction] 44.2 % 38.8-50.0 [facility] Hemoglobin [Mass/volume] in BloodOrdered By: Zachariah Saldaña on 03-02-2023 Hemoglobin (Bld) [Mass/Vol] 15.1 g/dL 13.0-17.0 [facility] Ketones Auto test strip (U) [Mass/Vol]Ordered By: Zachariah Saldaña on 03-02-2023 Ketones (U) [Mass/Vol] Negative Negative [facility] Laboratory - CoagulationOrde red By: Zachariah Saldaña on 03-02-2023 PT Coag (PPP) [Time] 11.2 s 9.0-12.9 [facility] Laboratory - UrinalysisOrder ed By: Zachariah Saldaña on 03-02-2023 Hyaline casts LM Ql (Urine sed) None seen [LPF] 0-8 [facility] Leukocytes [#/volume] correc robyn for nucleated erythrocytes in Blood by Automated counOrdered By: Zachariah Saldaña on 03-02-2023 WBC corrected for nucl RBC Auto (Bld) [#/Vol] 9.3 10*3/uL 4.1-10.5 [facility] Lymphocytes Auto (Bld) [#/Vo l]Ordered By: Zachariah Saldaña on 03-02-2023 Lymphocytes (Bld) [#/Vol] 2.5 10*3/uL 1.00-4.8 [facility] Lymphocytes/100 WBC Auto (Bl d)Ordered By: Zachariah Saldaña on 03-02-2023 Lymphocytes/100 WBC (Bld) 27.3 % . [facility] MCH Auto (RBC) [Entitic mass ]Ordered By: Zachariah Saldaña on 03-02-2023 MCH (RBC) [Entitic mass] 31.0 pg 27.5-35.2 [facility] MCHC Auto (RBC) [Mass/Vol]Or dered By: Zachariah Saldaña on 03-02-2023 MCHC (RBC) [Mass/Vol] 34.2 g/dL 32.5-35.6 [facility] MCV Auto (RBC) [Entitic vol] Ordered By: Zachariah Saldaña on 03-02-2023 MCV (RBC) [Entitic vol] 90.7 fL 83.5-101 [facility] Monocyte distribution width [Entitic volume] in Blood by AutomatedOrdered By: Zachariah Saldaña on 03-02-2023 Monocyte distribution width Auto (Bld) [Entitic vol] 19.54 % 0.00-20.00 [facility] Monocytes Auto (Bld) [#/Vol] Ordered By: Zachariah Saldaña on 03-02-2023 Monocytes (Bld) [#/Vol] 0.6 10*3/uL 0.0-0.8 [facility] Monocytes/100 WBC Auto (Bld) Ordered By: Zachariah Saldaña on 03-02-2023 Monocytes/100 WBC (Bld) 6.2 % . [facility] Neutrophils Auto (Bld) [#/Vo l]Ordered By: Zachariah Saldaña on 03-02-2023 Neutrophils (Bld) [#/Vol] 5.9 10*3/uL 1.8-7.7 [facility] Neutrophils/100 WBC Auto (Bl d)Ordered By: Zachariah Saldaña on 03-02-2023 Neutrophils/100 WBC (Bld) 63.6 % . [facility] Nitrite Test strip Ql (U)Ord ered By: Zachariah Saldaña on 03-02-2023 Nitrite Ql (U) Negative Negative [facility] No Panel InformationOrdered By: Zachariah Saldaña on 03-02-2023 Bedside Glucose #[address]/rn [facility] Bedside Glucose Comment Glu2: cleaned meter [facility] Estimated GFR (CKD-EPI) > 60.0 mL/Min [facility] Pharmacy Creatinine Clearance (Chem 101.58 [facility] Nucleated erythrocytes [Pres ence] in Blood by Automated countOrdered By: Zachariah Saldaña on 03-02-2023 Nucleated RBC Auto Ql (Bld) 0.2 /100{WBC} 0-0.5 [facility] Partial Thromboplastin Timeo n 03-02-2023 aPTT Coag (Bld) [Time] 30.0 s Normal 25.1-36.5 [facility] Comment on above: Result Comment: PERF ORMED BY: [facility] [address] [facility] [place] [address] PATHOLOGIST HANDS AND DIAL INSPECTOR DEONNA COURTNEY M.D. Performed By: #### H S TROP, CMP, PTT, ETOH, CK, CBC, PT ####[facility] [id number] Platelet mean volume Auto (B ld) [Entitic vol]Ordered By: Zachariah Saldaña on 03-02-2023 Platelet mean volume (Bld) [Entitic vol] 8.7 fL 6.6-10.1 [facility] Platelet poor plasma interna tional normalized ratio (INR) by coagulation assay (relatOrdered By: Zachariah Saldaña on 03-02-2023 INR Coag (PPP) [Relative time] 1.0 {INR} [facility] Comment on above: INR Therapeutic Rang e [...] 03-02-2023 Platelets (Bld) [#/Vol] 283 10*3/uL 150-450 [facility] Potassium [Moles/volume] in Serum or PlasmaOrdered By: Zachariah Saldaña on 03-02-2023 Potassium [Moles/Vol] 4.3 mmol/L 3.5-5.1 [facility] Protein Auto test strip (U) [Mass/Vol]Ordered By: Zachariah Saldaña on 03-02-2023 Protein (U) [Mass/Vol] Trace mg/dL Negative [facility] Protein [Mass/volume] in Ser um or PlasmaOrdered By: Zachariah Saldaña on 03-02-2023 Protein [Mass/Vol] 6.7 g/dL 6.4-8.[address] [facility] Prothrombin Time INRon 03-02 INR Coag (PPP) [Relative time] 1.0 {INR} Normal [facility] Comment on above: Result Comment: INR Therapeutic [...] TROP, CMP, PTT, ETOH, CK, CBC, PT ####[facility] [id number] [place] [address] [facility] PT Coag (PPP) [Time] 11.2 s Normal 9.0-12.9 [facility] Comment on above: Performed By: #### H S TROP, CMP, PTT, ETOH, CK, CBC, PT ####[facility] [id number] [place] [id number] [facility] RBC Auto (Bld) [#/Vol]Ordere d By: Zachariah Saldaña on 03-02-2023 RBC (Bld) [#/Vol] 4.88 10*6/uL 3.90-5.60 [facility] Serum or plasma albumin/glob ulin mass ratioOrdered By: Zachariah Saldaña on 03-02-2023 Albumin/Globulin [Mass ratio] 1.1 {ratio} [facility] Serum or plasma anion gap de terminationOrdered By: Zachariah Saldaña on 03-02-2023 Anion gap [Moles/Vol] 9.2 mmol/L 6.0-15.0 [facility] Sodium [Moles/volume] in Ser um or PlasmaOrdered By: Zachariah Saldaña on 03-02-2023 Sodium [Moles/Vol] 135 mmol/L 136-[address] [facility] Specific gravity Auto test s trip (U) [Rel density]Ordered By: Zachariah Saldaña on 03-02-2023 Specific gravity (U) [Rel density] 1.028 1.001-1.030 [facility] Squamous epithelial cells de tection in urine sediment by light microscopyOrdered By: Zachariah Saldaña on 03-02-2023 Epithelial cells.squamous LM Ql (Urine sed) None seen [HPF] 0-2 [facility] Troponin I High Sensitivityo n 03-02-2023 Troponin I High Sensitivity 4.9 pg/mL Normal 0.0-20.0 [facility] Comment on above: Result Comment: PERF ORMED BY: [facility] [address] [place] [address] PATHOLOGIST HANDS AND DIAL INSPECTOR DEONNA COURTNEY M.D. Performed By: #### H S TROP, CMP, PTT, ETOH, CK, CBC, PT ####[facility] [id number] [place], [place] [id number] [facility] Troponin I.cardiac [Mass/vol ume] in Serum or Plasma by Detection limit <= 0.01 ng/Ordered By: Zachariah Saldaña on 03-02-2023 Troponin I.cardiac DL <= 0.01 ng/mL [Mass/Vol] 4.9 pg/mL 0.0-20.0 [facility] Type and Screenon 03-02-2023 ABO and Rh group Nom (Bld) Blood group O Rh(D) positive Normal [facility] Comment on above: Result Comment: PERF ORMED BY: [address] [address] PATHOLOGIST HANDS AND DIAL INSPECTOR DOENNA COURTNEY M.D. Urea nitrogen [Mass/volume] in Serum or PlasmaOrdered By: Zachariah Saldaña on 03-02-2023 Urea nitrogen [Mass/Vol] 17 mg/dL 03-10 [facility] Urine bacteria detection by automated methodOrdered By: Zachariah Saldaña on 03-02-2023 Bacteria Auto Ql (U) None seen None Seen [facility] Urine clarity by refractomet ry automatedOrdered By: Zachariah Saldaña on 03-02-2023 Clarity Refractometry automated (U) Clear Clear [facility] Urine glucose measurement by automated test strip (mass/volume)Ordered By: Zachariah Saldaña on 03-02-2023 Glucose Auto test strip (U) [Mass/Vol] >=1000 mg/dL Normal [facility] Urine hemoglobin detection b y automated test stripOrdered By: Zachariah Saldaña on 03-02-2023 Hemoglobin Auto test strip Ql (U) Negative Negative [facility] Urine leukocyte esterase det ection by automated test stripOrdered By: Zachariah Saldaña on 03-02-2023 Leukocyte esterase Auto test strip Ql (U) Negative Negative [facility] Urobilinogen Auto test strip (U) [Mass/Vol]Ordered By: Zachariah Saldaña on 03-02-2023 Urobilinogen (U) [Mass/Vol] Normal mg/dL Normal [facility] WBC Auto (Bld) [#/Vol]Ordere d By: Zachariah Saldaña on 03-02-2023 WBC (Bld) [#/Vol] 9.3 10*3/uL 4.1-10.[address] [facility] XR chest 1V portableon 03-02 XR chest 1V portable [facility] Main [address] [address] XRay Report Signed Patient: Akbar Byrnes MR#: [id number] : 1960 Acct:[id number] Age/Sex: 62 / M ADM Date: 03/02/23 [...] Tavares Jr., D.ONohemi03/02/2023 8:45 PM Dictation Location: [place] [address] Transcribed By: [facility] 03/02/232044 Dictated By: Landen Tavares Jr, DO 03/02/232042 Signed By: 03/02/232044 Normal [facility] pH Auto test strip (U)Ordere d By: Zachariah Saldaña on 03-02-2023 pH (U) 6.5 [pH] 5.0-9.0 [facility] CBC AUTO DIFFon 12-08-2022 BASO # 0.1 103/ul Normal 0.0-0.1 [facility] Comment on above: Performed By: #### C BC ####[facility] [address]zs[address] [place] [address]Dr. Abhinav Laguna Basophils/100 WBC (Bld) 0.4 % Normal 0.2-2.0 [facility] Comment on above: Performed By: #### C BC ####[facility] Jqumnslmhu[address] [place] [address]Dr. Mirandagallo Laguna EO # 0.1 103/ul Normal 0.0-0.7 [facility] Comment on above: Performed By: #### C BC ####[facility] Ipemhjbetc[address] [place] [address]Dr. Abhinav Laguna Eosinophils/100 WBC (Bld) 0.4 % Critically low 0.9-7.0 [facility] Comment on above: Performed By: #### C BC ####[facility] Jqqttoicjc[address] [place] [address]Dr. Abhinav Laguna Erythrocyte distribution width (RBC) [Ratio] 13.1 % Normal 11.0-15.0 [facility] Comment on above: Performed By: #### C BC ####[facility] Rhnxdihggw70[address] [place] [address]Dr. Abhinav Laguna Hematocrit (Bld) [Volume fraction] 42.1 % Normal 42.0-54.0 [facility] Comment on above: Performed By: #### C BC ####[facility] Tysxcodtqu[address] [place], [place] [address]Dr. Abhinav Laguna Hemoglobin (Bld) [Mass/Vol] 14.4 g/dL Normal 14.0-18.0 [facility] Comment on above: Performed By: #### C BC ####[facility] Nqpdgwswat[address] [place], [place] [address]Dr. Abhinav Laguna IG # 0.36 10e3/ul Critically high 0.00-0.03 [facility] Comment on above: Performed By: #### C BC ####[facility] Szypswpbdl11[address] [place], [place] [address]Dr. Abhinav Laguna IG % 2.4 % Critically high 0.0-0.5 [facility] Comment on above: Performed By: #### C BC ####[facility] Wfdiyhlbzb64[address] [place], [place] [address]Dr. Abhinav Laguna LYMPH # 1.9 103/ul Normal 1.2-3.8 [facility] Comment on above: Performed By: #### C BC ####[facility] Vbldhdwuux[address] [place], [place] [address]Dr. Abhinav Laguna Lymphocytes/100 WBC (Bld) 12.5 % Critically low 20.5-60.0 [facility] Comment on above: Performed By: #### C BC ####[facility] Akyyqoyhqy4[address] [place], [place] [address]Dr. Abhinav Laguna MANUAL DIFF REQ NO Normal [facility] Comment on above: Performed By: #### C BC ####[facility] Olfyncavqk[address] [place] [id number]. Abhinav Laguna MCH (RBC) [Entitic mass] 31.1 pg Normal 25.9-34.0 [facility] Comment on above: Performed By: #### C BC ####[facility] Slfvjtfuvn6[address] [place] [address]Dr. Abhinav Laguna MCHC (RBC) [Mass/Vol] 34.2 g/dL Normal 29.9-35.2 [facility] Comment on above: Performed By: #### C BC ####[facility] Bifkhgwcql8995[address] [place], [place] [address]Dr. Abhinav Laguna MCV (RBC) [Entitic vol] 90.9 fL Normal 80.0-94.0 [facility] Comment on above: Performed By: #### C BC ####[facility] Rhiqvgcqpq57[address] [place], [place] [address]Dr. Abhinav Laguna MONO # 0.4 103/ul Normal 0.3-0.8 [facility] Comment on above: Performed By: #### C BC ####[facility] Ehutuaiudy47[address] [place], [place] [address]Dr. Abhinav Laguna Monocytes/100 WBC (Bld) 2.3 % Normal 1.7-12.0 [facility] Comment on above: Performed By: #### C BC ####[facility] Mwmcuabz[address] [place], [place] [id number]. Abhinav Laguna NEUT # 12.5 103/ul Critically high 1.4-6.5 [facility] Comment on above: Performed By: #### C BC ####[facility] Rjuueqlypx[address] [place], [place] [id number]. Abhinav Laguna Neutrophils/100 WBC (Bld) 82.0 % Critically high 43.0-75.0 [facility] Comment on above: Performed By: #### C BC ####[facility] Auvhntjgxj6[address] [place], [place] [address]Dr. Abhinav Laguna Platelet mean volume (Bld) [Entitic vol] 10.0 fL Normal 9.5-13.5 [facility] Comment on above: Performed By: #### C BC ####[facility] Ekhlbplfcc[address] [place] [id number]. Abhinav Laguna PLT 299 103/ul Normal 150-450 [facility] Comment on above: Performed By: #### C BC ####[facility] Sqbwatejlf5351 [place] [id number]. Abhinav Laguna RBC 4.63 106/ul Critically low 4.70-6.10 [facility] Comment on above: Performed By: #### C BC ####[facility] Tzovthgaye[address] [place] [id number]. Abhinav Laguna WBC 15.2 103/ul Critically high 4.0-11.0 [facility] Comment on above: Performed By: #### C BC ####[facility] Odkzhxrklb[address] [place] [address]Dr. Abhinav Laguna CT HEAD WO CONon 3 CT HEAD WO CON Normal [facility] ER URINE PROFILEon 3 Bilirubin Ql (U) Negative Normal NEGATIVE [facility] Comment on above: Performed By: #### U MICRO, ERUR ####[facility] Fitnscvyuo[address] [place] [address]Dr. Abhinav Jase Clarity (U) CLEAR Normal CLEAR [facility] Comment on above: Performed By: #### U MICRO, ERUR ####[facility] Zyzhswjycy[address] [place] [address]Dr. Abhinav Laguna Color (U) YELLOW Normal YELLOW [facility] Comment on above: Performed By: #### U MICRO, ERUR ####[facility] Wzqgxuzcuj4[address] [place] [id number]. Abhinav Laguna ERUAHD A micrscopic examina tion will be performed if indicated. Normal [facility] Comment on above: Performed By: #### U MICRO, ERUR ####[facility] Nleqzyvlpj9[address] [place] [address]Dr. Abhinav Laguna Glucose Ql (U) >1000 Abnormal NEGATIVE [facility] Comment on above: Performed By: #### U MICRO, ERUR ####[facility] Sqmvovwuhp40[address] [place] [address]Dr. Abhinav Laguna Hemoglobin Ql (U) Negative Normal NEGATIVE [facility] Comment on above: Performed By: #### U MICRO, ERUR ####[facility] Qmrkqowosn[address] [place], [place] [address]Dr. Abhinav Laguna Ketones Ql (U) TRACE Abnormal NEGATIVE [facility] Comment on above: Performed By: #### U MICRO, ERUR ####[facility] Eicipsmwld19[address] [place], [place] [address]Dr. Abhinav Laguna LEUKOCYTES Negative Normal NEGATIVE [facility] Comment on above: Performed By: #### U MICRO, ERUR ####[facility] Tgjvhknzck17[address] [place], [place] [address]Dr. Abhinav Laguna Nitrite Ql (U) Negative Normal NEGATIVE [facility] Comment on above: Performed By: #### U MICRO, ERUR ####[facility] Amxvbxldyy4268[address] [place], [place] [address]Dr. Abhinav Laguna pH (U) 5.0 [pH] Normal 5-9 [facility] Comment on above: Performed By: #### U MICRO, ERUR ####[facility] Hqpehayiyd450[address] [place], [place] [address]Dr. Abhinav Laguna Protein (U) [Mass/Vol] 30 mg/dL Abnormal NEGAT HOLLIS/ TRACE [facility] Comment on above: Performed By: #### U MICRO, ERUR ####[facility] Sjrvvvsqyn11[address] [place], [place] [address]Dr. Abhinav Laguna SPEC GRAVITY >=1.030 Abnormal 1.005-<=1.0 25 [facility] Comment on above: Performed By: #### U MICRO, ERUR ####[facility] Jzrbrpmoib2914[address] [place], [place] [address]Dr. Abhinav Laguna UR MICRO IND INDICATED Normal [facility] Comment on above: Performed By: #### U MICRO, ERUR ####[facility] Uxnhxvosty39[address] [place], [place] [address]Dr. Abhinav Laguna Urobilinogen Qn (U) 1.0 {Marshall'U}/dL Normal 0.2 - 1. 0 [facility] Comment on above: Performed By: #### U MICRO, ERUR ####[facility] Magtgahzdv9825[address] [place], [place] [address]Dr. Abhinav Laguna PROF CHEM 8 (BAS METB)on Anion gap [Moles/Vol] 11.3 mmol/L Normal [facility] Comment on above: Performed By: #### B MP ####[facility] Xdljjjdgzd3044[address] [place], [place] [address]Dr. Abhinav Laguna Calcium [Mass/Vol] 10.4 mg/dL Critically high 8.5-10.1 [facility] Comment on above: Performed By: #### B MP ####[facility] Kjjhhkfgrv0032[address] [place], [place] [address]Dr. Abhinav Laguna Chloride [Moles/Vol] 99 mmol/L Normal 98-107 [facility] Comment on above: Performed By: #### B MP ####[facility] Replieoric09101[address] [place], [place] [address]Dr. Abhinav Laguna CO2 [Moles/Vol] 28.0 mmol/L Normal 21.0-32.0 [facility] Comment on above: Performed By: #### B MP ####[facility] Zihujdrfjd6738[address] [place], [place] [address]Dr. Abhinav Laguna Creatinine [Mass/Vol] 1.05 mg/dL Normal 0.70-1.30 [facility] Comment on above: Performed By: #### B MP ####[facility] Rcsykexlry[address] [place], [place] [address]Dr. Abhinav Laguna EGFR-AF MAURITANIAN >60 Normal >=60 [facility] Comment on above: Performed By: #### B MP ####[facility] Wczxwjragf5406[address] [place], [place] [address]Dr. Abhinav Laguna EGFR-NON AF MAURITANIAN >60 Normal >=60 [facility] Comment on above: Performed By: #### B MP ####[facility] Exkrebyqzp4[address] [place], [place] [address]Dr. Abhinav Laguna Glucose [Mass/Vol] 244 mg/dL Critically high 74-106 [facility] Comment on above: Performed By: #### B MP ####[facility] Hohnafavhl6[address] [place], [place] [address]Dr. Abhinav Laguna Potassium [Moles/Vol] 4.3 mmol/L Normal 3.5-5.1 [facility] Comment on above: Performed By: #### B MP ####[facility] Bcrtkleijy8063[address] [place], [place] [address]Dr. Abhinav Laguna Sodium [Moles/Vol] 134 mmol/L Critically low 136-145 [facility] Comment on above: Performed By: #### B MP ####[facility] Rjifkrwtph209[address] [place], [place] [address]Dr. Abhinav aLguna Urea nitrogen [Mass/Vol] 26.0 mg/dL Critically high 7.0-18.0 [facility] Comment on above: Performed By: #### B MP ####[facility] Ftsozltiym47[address] [place], [place] [address]Dr. Abhinav Laguna Urea nitrogen/Creatinine [Mass ratio] 24.8 mg/mg Normal [facility] Comment on above: Performed By: #### B MP ####[facility] Ppyglebrsn3315[address] [place], [place] [address]Dr. Abhinav Laguna URINE MICROSCOPIC ONLYon BACTERIA NONE SEEN Normal NONE SEEN [facility] Comment on above: Performed By: #### U MICRO, ERUR ####[facility] Ptvavypvaz4[address] [place], [place] [address]Dr. Abhinav Laguna Bacteria identified Cx Nom (U) NOT INDICATED Normal [facility] Comment on above: Performed By: #### U MICRO, ERUR ####[facility] Jrxoknweuc893[address] [place], [place] [address]Dr. Abhinav Laguna CA OX CRYSTALS MANY Normal [facility] Comment on above: Performed By: #### U MICRO, ERUR ####[facility] Vfkfoonbzs4734[address] [place], [place] [address]Dr. Abhinav Laguna CAST SEEN Abnormal NONE SEEN [facility] Comment on above: Performed By: #### U MICRO, ERUR ####[facility] Aviupwaula[address] [place] [address]Dr. Abhinav Laguna Crystals LM Nom (Urine sed) SEEN Abnormal NONE SEEN [facility] Comment on above: Performed By: #### U MICRO, ERUR ####[facility] Clamucosiy[address] [place] [address]Dr. Abhinav Laguna Epithelial cells LM Ql (Urine sed) RARE Normal NONE SEEN /RARE [facility] Comment on above: Performed By: #### U MICRO, ERUR ####[facility] Nplihqdppu26[address] [place] [address]Dr. Abhinav Laguna HYALINE CAST FEW Normal [facility] Comment on above: Performed By: #### U MICRO, ERUR ####[facility] Thromjtfkd89[address] [place] [address]Dr. Abhinav Laguna MUCOUS TRACE Abnormal NONE SEEN [facility] Comment on above: Performed By: #### U MICRO, ERUR ####[facility] Znlcobcssv4908 [place] [address]Dr. Abhinav Laguna RBC 0-2 Normal 0-2 [facility] Comment on above: Performed By: #### U MICRO, ERUR ####[facility] Ulxkdzqcbw[address] [place], [place] [address]Dr. Abhinav Laguna WBC 0-2 Abnormal NONE SEEN [facility] Comment on above: Performed By: #### U MICRO, ERUR ####[facility] Wfquyluwjm8[address] [place] [address]Dr. Abhinav Laguna XR CHEST 1 Von 12-08-2022 XR CHEST 1 V Normal [facility] BLOOD GASES BTYon 12-04-2022 02 MODE ROOM AIR Normal [facility] Comment on above: Performed By: #### A BG ####[facility] Geclkzzqpa[address] [place], [place] [address]Dr. Abhinav Laguna ALLENS TEST Positive Normal [facility] Comment on above: Performed By: #### A BG ####[facility] Xovpmgqyaw89[address] [place] [address]Dr. Abhinav Laguna Base excess Calc (Bld) [Moles/Vol] 2.2 mmol/L Critically high -2.0-2.0 [facility] Comment on above: Performed By: #### A BG ####[facility] Ftrjulrlhv8[address] [place] [address]Dr. Abhinav Laguna BIPAP PRESSURE Normal [facility] Comment on above: Performed By: #### A BG ####[facility] Hozygvpbgc3883 [place] [address]Dr. Abhinav Laguna CPAP Normal [facility] Comment on above: Performed By: #### A BG ####[facility] Fhppebmxjj1623[address] [place], [place] [address]Dr. Abhinav Laguna FIO2 Normal [facility] Comment on above: Performed By: #### A BG ####[facility] Wteoruuazl308[address] [place], [place] [address]Dr. Abhinav Laguna HCO3 (Bld) [Moles/Vol] 27.0 mmol/L Critically high 22.0-26 .0 [facility] Comment on above: Performed By: #### A BG ####[facility] Cyqcnwgpcq449[address] [place], [place] [address]Dr. Abhinav Laguna LPM Normal [facility] Comment on above: Performed By: #### A BG ####[facility] Pidhgppqlx3887[address] [place], [place] [address]Dr. Abhinav Laguna MINUTE VOLUME Normal [facility] Comment on above: Performed By: #### A BG ####[facility] Fbnwhkmcyz2059[address] [place], [place] [address]Dr. Abhinav Laguna Oxygen (Bld) [Partial pressure] 84.3 mm[Hg] Normal 80.0-100.0 [facility] Comment on above: Performed By: #### A BG ####[facility] Wgiiyrvnme5987[address] [place], [place] [address]Dr. Abhinav Laguna Oxygen saturation in Blood 96.8 % Normal 95.0-100.0 [facility] Comment on above: Performed By: #### A BG ####[facility] Dljryixonj8298[address] [place], [place] [address]Dr. Abhinav Laguna PCO2 43.1 mmHg Normal 35.0-45.0 [facility] Comment on above: Performed By: #### A BG ####[facility] Gswxatfmeh8[address] [place] [address]Dr. Abhinav Laguna [facility] Comment on above: Performed By: #### A BG ####[facility] Vwjagdbvso2945 [place] [address]Dr. Abhinav Laguna pH (Bld) 7.405 [pH] Normal 7.350-7.450 [facility] Comment on above: Performed By: #### A BG ####[facility] Fhnvzcshid060[address] [place] [address]Dr. Abhinav Laguna PIP [place] [facility] Comment on above: Performed By: #### A BG ####[facility] Yawmquseqs4948[address] [place], [place] [address]Dr. Abhinav Laguna [facility] Comment on above: Performed By: #### A BG ####[facility] Xaoxoiblna1717[address] [place], [place] [address]Dr. Abhinav Laguna PUNCTURE SITE RR Normal [facility] Comment on above: Performed By: #### A BG ####[facility] Virlvgljtm3192[address] [place], [place] [address]Dr. Abhinav Laguna [facility] Comment on above: Performed By: #### A BG ####[facility] Okpxlaesas9459[address] [place], [place] [address]Dr. Abhinav Laguna [facility] Comment on above: Performed By: #### A BG ####[facility] Pdzvnmmbrp[address] [place], [place] [address]Dr. Abhinav Laguna [facility] Comment on above: Performed By: #### A BG ####[facility] Ozmqqchuqv0174[address] [place], [place] [address]Dr. Abhinav Laguna LACTATE/LACTIC ACIDon 2022 Lactate [Moles/Vol] 2.4 mmol/L Critically high 0.4-2.0 [facility] Comment on above: Performed By: #### L ACT ####[facility] Bbcembyemm8964[address] [place], [place] [address]Dr. Abhinav Laguna Lactate [Moles/Vol] 3.1 mmol/L Critically high 0.4-2.0 [facility] Comment on above: Performed By: #### L ACT ####[facility] Ihvhljjnli6[address] [place], [place] [address]Dr. Abhinav Laguna POINT OF CARE GLUCOSEon 11-16 Glucose [Mass/Vol] 286 mg/dL Critically high 74-106 [facility] Comment on above: Performed By: #### P OCGLUC ####[facility] Rmerchotvv7614[address] [place], [place] [address]Dr. Abhinav Laguna Glucose [Mass/Vol] 94 mg/dL Normal 74-106 [facility] Comment on above: Performed By: #### P OCGLUC ####[facility] Ddochjpjjj6644[address] [place], [place] [address]Dr. Abhinav Laguna ACETONE SERUMon 12-03-2022 ACETONE Negative Normal NEGATIVE [facility] Comment on above: Performed By: #### A CETON ####[facility] Tdxymktmfg8969[address] [place], [place] [address]Dr. Abhinav Laguna BNPon 12-03-2022 Natriuretic peptide B (Bld) [Mass/Vol] 130.0 pg/mL Normal <=900.0 [facility] Comment on above: Performed By: #### B SENIOR ELECTRICAL ESTIMATOR, CMP, LIPA, HSTROPN ####[facility] Qzqzjuynry68[address] [place], [place] [address]Dr. Abhinav Laguna CBC AUTO DIFFon 12-03-2022 BASO # 0.0 103/ul Normal 0.0-0.1 [facility] Comment on above: Performed By: #### C BC ####[facility] Cutgbuaqjo1894[address] [place], [place] [address]Dr. Abhinav Jase Basophils/100 WBC (Bld) 0.2 % Normal 0.2-2.0 [facility] Comment on above: Performed By: #### C BC ####[facility] Gvvrxopvfx[address] [place], [place] [address]Dr. Abhinav Laguna EO # 0.0 103/ul Normal 0.0-0.7 [facility] Comment on above: Performed By: #### C BC ####[facility] Zqgsbaakpl37[address] [place] [address]Dr. Abhinav Laguna Eosinophils/100 WBC (Bld) 0.1 % Critically low 0.9-7.0 [facility] Comment on above: Performed By: #### C BC ####[facility] Qegfbjxgrf3168[address] [place], [place] [address]Dr. Abhinav Laguna Erythrocyte distribution width (RBC) [Ratio] 12.9 % Normal 11.0-15.0 [facility] Comment on above: Performed By: #### C BC ####[facility] Wplnzemhuw8108[address] [place], [place] [address]Dr. Abhinav Laguna Hematocrit (Bld) [Volume fraction] 44.2 % Normal 42.0-54.0 [facility] Comment on above: Performed By: #### C BC ####[facility] Jacxxeoczu5467[address] [place], [place] [address]Dr. Abhinav Laguna Hemoglobin (Bld) [Mass/Vol] 15.7 g/dL Normal 14.0-18.0 [facility] Comment on above: Performed By: #### C BC ####[facility] Angmzzrjva918[address] [place], [place] [address]Dr. Abhinav Laguna IG # 0.14 10e3/ul Critically high 0.00-0.03 [facility] Comment on above: Performed By: #### C BC ####[facility] Xlfwifvmfq9032[address] [place], [place] [address]Dr. Abhinav Laguna IG % 0.9 % Critically high 0.0-0.5 [facility] Comment on above: Performed By: #### C BC ####[facility] Wodjolouvh[address] [place], [place] [address]Dr. Abhinav Laguna LYMPH # 1.9 103/ul Normal 1.2-3.8 [facility] Comment on above: Performed By: #### C BC ####[facility] Mvmrteqoji040[address] [place], [place] [address]Dr. Abhinav Laguna Lymphocytes/100 WBC (Bld) 11.8 % Critically low 20.5-60.0 [facility] Comment on above: Performed By: #### C BC ####[facility] Rvufzkwcdh7[address] [place] [address]DrNohemi Laguna MANUAL DIFF REQ NO Normal [facility] Comment on above: Performed By: #### C BC ####[facility] Dathdsyhvz1894 [place] [address]DrNohemi Laguna MCH (RBC) [Entitic mass] 31.0 pg Normal 25.9-34.0 [facility] Comment on above: Performed By: #### C BC ####[facility] Ldmshqemni00[address] [place], [place] [address]DrNohemi Laguna MCHC (RBC) [Mass/Vol] 35.5 g/dL Critically high 29.9-35.2 [facility] Comment on above: Performed By: #### C BC ####[facility] Swakfihevq3752[address] [place], [place] [address]DrNohemi Laguna MCV (RBC) [Entitic vol] 87.4 fL Normal 80.0-94.0 [facility] Comment on above: Performed By: #### C BC ####[facility] Ygghaavxjt340[address] [place], [place] [address]DrNohemi Laguna MONO # 1.0 103/ul Critically high 0.3-0.8 [facility] Comment on above: Performed By: #### C BC ####[facility] Smrfmdhjgb3421[address] [place], [place] [address]DrNohemi Laguna Monocytes/100 WBC (Bld) 6.1 % Normal 1.7-12.0 [facility] Comment on above: Performed By: #### C BC ####[facility] Cgiofasiwl30[address] [place], [place] [address]DrNohemi Laguna NEUT # 13.0 103/ul Critically high 1.4-6.5 [facility] Comment on above: Performed By: #### C BC ####[facility] Ibwgwmdcui7[address] [place], [place] [address]DrNohemi Laguna Neutrophils/100 WBC (Bld) 80.9 % Critically high 43.0-75.0 [facility] Comment on above: Performed By: #### C BC ####[facility] [address]xjcq[address] [place] [address]Dr. Mirandagallo Laguna Platelet mean volume (Bld) [Entitic vol] 10.0 fL Normal 9.5-13.5 [facility] Comment on above: Performed By: #### C BC ####[facility] Ltdglfsmeg7[address] [place], [place] [address]Dr. Mirandagallo Jase PLT 446 103/ul Normal 150-450 [facility] Comment on above: Performed By: #### C BC ####[facility] Rizvpknije64[address] [place], [place] [address]Dr. Mirandagallo Jase RBC 5.06 106/ul Normal 4.70-6.10 [facility] Comment on above: Performed By: #### C BC ####[facility] Tclcnzkiqu24[address] [place], [place] [address]Dr. Abhinav Laguna WBC 16.1 103/ul Critically high 4.0-11.0 [facility] Comment on above: Performed By: #### C BC ####[facility] Izdwxztced[address] [place], [place] [address]Dr. Abhinav Laguna DRUG SCREEN RAPID (URINE)on 12-03-2022 AMP Negative Normal NEGATIVE [facility] Comment on above: Performed By: #### E RUR, DRUGRPD ####[facility] Xvakatqeip[address] [place], [place] [address]Dr. Abhinav Laguna BAR Positive Abnormal NEGATIVE [facility] Comment on above: Performed By: #### E RUR, DRUGRPD ####[facility] Zaudgidsry[address] [place], [place] [address]Dr. Abhinav Laguna BUP Negative Normal NEGATIVE [facility] Comment on above: Performed By: #### E RUR, DRUGRPD ####[facility] Mdqeposytm7[address] [place], [place] [address]Dr. Abhinav Laguna BZO Negative Normal NEGATIVE [facility] Comment on above: Performed By: #### E RUR, DRUGRPD ####[facility] Amcgzewwwk[address] [place] [id number]. Abhinav Laguna ISELA Negative Normal NEGATIVE [facility] Comment on above: Performed By: #### Lon RUR DRUGRPD ####[facility] Qfwecaolkr32[address] [place], [place] [address]Dr. Abhinav Laguna CUT-OFFS SEE BELOW Normal [facility] Comment on above: Result Comment: AMP (Amphetamine): 500ng/mL, BAR (Barbituates): 200 ng/mL, BZO (Benzodiazepines): 150 ng/mL, BUP (Buprenorphine): 10 ng/mL, ISELA (Cocaine): 150 ng/mL, mAMP (Methamphetamine): 500 ng/mL, MTD (Methadone): 200 ng/mL, OPI (Opiates): 100 ng/mL, OXY (Oxycodone): 100 ng/mL, PCP (Phencyclidine): 25 ng/mL, PPX (Propoxyphene): 300 ng/mL, THC (Cannabinoids): 50 ng/mL, TCA (Trycyclic Antidepressants): 300 ng/mL Performed By: #### Lon RUR DRUGRPD ####[facility] Iegjdadndx[address] [place], [place] [address]Dr. Abhinav Laguna DRUG CUT HEADER DRUG CLASS TEST SYST EM CUT-OFF CONCENTRATIONS ARE FOLLOWS: Normal [facility] Comment on above: Performed By: #### Lon RUDale DRUGRPD ####[facility] Dkdejlawxl5[address] [place], [place] [address]Dr. Abhinav Laguna mAMP Negative Normal NEGATIVE [facility] Comment on above: Performed By: #### Lon RUR DRUGRPD ####[facility] Losninrznj4[address] [place], [place] [address]Dr. Abhinav Laguna MTD Negative Normal NEGATIVE [facility] Comment on above: Performed By: #### E RUR DRUGRPD ####[facility] Okemuknrew[address] [place], [place] [address]Dr. Abhinav Laguna OPI Positive Abnormal NEGATIVE [facility] Comment on above: Performed By: #### E RUR DRUGRPD ####[facility] [address] [place] [address]Dr. Mirandagallo Laguna OXY Negative Normal NEGATIVE [facility] Comment on above: Performed By: #### E RUR, DRUGRPD ####[facility] Wsbrejioos8[address] [place], [place] [address]Dr. Abhinav Laguna PCP Negative Normal NEGATIVE [facility] Comment on above: Performed By: #### E RUR, DRUGRPD ####[facility] Roqewuujde7[address] [place], [place] [address]Dr. Abhinav Laguna PPX Negative Normal NEGATIVE [facility] Comment on above: Performed By: #### E RUR, DRUGRPD ####[facility] Veoufttoio3662[address] [place], [place] [address]Dr. Abhinav Laguna TCA Negative Normal NEGATIVE [facility] Comment on above: Performed By: #### E RUR, DRUGRPD ####[facility] Kjcyjyskym6[address] [place], [place] [address]Dr. Abhinav Laguna THC Positive Abnormal NEGATIVE [facility] Comment on above: Performed By: #### E RUR, DRUGRPD ####[facility] Ojgjpmryxl5[address] [place], [place] [address]Dr. Abhinav Laguna ER URINE PROFILEon 3 Bilirubin Ql (U) Negative Normal NEGATIVE [facility] Comment on above: Performed By: #### E RUR, DRUGRPD ####[facility] Isbnyedhju2199[address] [place], [place] [address]Dr. Abhinav Laguna Clarity (U) CLEAR Normal CLEAR [facility] Comment on above: Performed By: #### E RUR, DRUGRPD ####[facility] Spedgshudu52[address] [place], [place] [address]Dr. Abhinav Laguna Color (U) LT. YELLOW Normal YELLOW [facility] Comment on above: Performed By: #### E RUR, DRUGRPD ####[facility] Qenlcqasfd[address] [place], [place] [address]Dr. Abhinav Laguna ERUAHD A micrscopic examina tion will be performed if indicated. Normal [facility] Comment on above: Performed By: #### E RUR, DRUGRPD ####[facility] [address]kpjfm[address] [place] [address]Dr. Abhinav Laguna Glucose Ql (U) >1000 Abnormal NEGATIVE [facility] Comment on above: Performed By: #### Lon BRODY DRUGRPD ####[facility] Fsblvwxpfl9[address] [place], [place] [address]Dr. Abhinav Laguna Hemoglobin Ql (U) Negative Normal NEGATIVE [facility] Comment on above: Performed By: #### Lon BRODY DRUGRPD ####[facility] Dnotkngicc39[address] [place], [place] [address]Dr. Abhinav Laguna Ketones Ql (U) Negative Normal NEGATIVE [facility] Comment on above: Performed By: #### Lon BRODY DRUGRPD ####[facility] Yxftmivtxv[address] [place], [place] [address]Dr. Abhinav Laguna LEUKOCYTES Negative Normal NEGATIVE [facility] Comment on above: Performed By: #### Lon BRODY DRUGRPD ####[facility] Iyyobkopcv6038[address] [place], [place] [address]Dr. Abhinav Laguna Nitrite Ql (U) Negative Normal NEGATIVE [facility] Comment on above: Performed By: #### Lon BRODY DRUGRPD ####[facility] Ipxkovgbal2097[address] [place], [place] [address]Dr. Mirandagallo Jase pH (U) 5.5 [pH] Normal 5-9 [facility] Comment on above: Performed By: #### Lon BRODY DRUGRPD ####[facility] Scmevtpxpq[address] [place], [place] [address]Dr. Abhinav Laguna SPEC GRAVITY 1.025 Normal 1.005-<=1.0 25 [facility] Comment on above: Performed By: #### Lon BRODY DRUGRPD ####[facility] Wiebyqbdoq[address] [place], [place] [address]Dr. Abhinav Laguna UA PROTEIN Negative Normal NEGATIVE/ TRACE [facility] Comment on above: Performed By: #### Lon BRODY DRUGRPD ####[facility] Ckxtmrjaix[address] [place], [place] [address]Dr. Abhinav Laguna UR MICRO IND NOT INDICATED Normal [facility] Comment on above: Performed By: #### E RONN, DRUGRPD ####[facility] Cx[address]qgelwda[address] [place] [address]Dr. Abhinav Laguna Urobilinogen Qn (U) 0.2 {Marshall'U}/dL Normal 0.2 - 1. 0 [facility] Comment on above: Performed By: #### E RONN, DRUGRPD ####[facility] [address]rhqtr[address] [place] [address]Dr. Abhinav Jase LACTATE/LACTIC ACIDon 2022 Lactate [Moles/Vol] 3.0 mmol/L Critically high 0.4-2.0 [facility] Comment on above: Performed By: #### L ACT ####[facility] [address]wqn[address] [place] [address]Dr. Abhinav Laguna LIPASEon 12-03-2022 Lipase [Catalytic activity/Vol] 83.0 U/L Normal 73.0-393.0 [facility] Comment on above: Performed By: #### B SENIOR ELECTRICAL ESTIMATOR, CMP, LIPA, HSTROPN ####[facility] [address]tu[address] [place] [address]Dr. Abhinav Laguna PH VENOUS BLOODon 12-03-2022 PCO2 VENOUS 57.5 mmHg Critically high 40.0-52.0 [facility] Comment on above: Performed By: #### P HVEN ####[facility] [address]om[address] [place] [address]Dr. Abhinav Laguna pH VENOUS 7.354 Normal 7.330-7.430 [facility] Comment on above: Performed By: #### P HVEN ####[facility] Istrztqvad[address] [place] [address]Dr. Abhinav Jase POINT OF CARE GLUCOSEon 11-15 Glucose [Mass/Vol] 304 mg/dL Critically high 74-106 [facility] Comment on above: Performed By: #### P OCGLUC ####[facility] Ognbuoclrz[address] [place] [address]Dr. Abhinav Jase POCGLUC >600 Critically high 74-106 [facility] Comment on above: Result Comment: Lab Draw Ordered Performed By: #### P OCGLUC ####[facility] [address]ac[address] [place] [address]Dr. Abhinav Laguna PROF 14(COMP METB)on 023 Albumin [Mass/Vol] 2.7 g/dL Critically low 3.4-5.0 [facility] Comment on above: Performed By: #### B SENIOR ELECTRICAL ESTIMATOR, CMP, LIPA, HSTROPN ####[facility] [address] [place] [address]Dr. Abhinav Laguna Albumin/Globulin [Mass ratio] 0.6 {ratio} Normal [facility] Comment on above: Performed By: #### B SENIOR ELECTRICAL ESTIMATOR, CMP, LIPA, HSTROPN ####[facility] Y[address]ococcu[address] [place] [address]Dr. Abhinav Laguna ALP [Catalytic activity/Vol] 456 U/L Critically high 46-116 [facility] Comment on above: Performed By: #### B SENIOR ELECTRICAL ESTIMATOR, CMP, LIPA, HSTROPN ####[facility] [address]ayajrkj[address] [place] [address]Dr. Abhinav Laguna ALT [Catalytic activity/Vol] 28 U/L Normal 16-63 [facility] Comment on above: Performed By: #### B SENIOR ELECTRICAL ESTIMATOR, CMP, LIPA, HSTROPN ####[facility] [address]ait[address]pke[address] [place] [address]Dr. Abhinav Laguna Anion gap [Moles/Vol] 7.7 mmol/L Normal [facility] Comment on above: Performed By: #### B SENIOR ELECTRICAL ESTIMATOR, CMP, LIPA, HSTROPN ####[facility] Imjilrvkgc[address] [place] [address]Dr. Abhinav Laguna AST [Catalytic activity/Vol] 9 U/L Critically low 15-37 [facility] Comment on above: Performed By: #### B SENIOR ELECTRICAL ESTIMATOR, CMP, LIPA, HSTROPN ####[facility] Ngiioukzqj[address] [place] [address]Dr. Abhinav Laguna Bilirubin [Mass/Vol] 0.3 mg/dL Normal 0.2-1.0 [facility] Comment on above: Performed By: #### B SENIOR ELECTRICAL ESTIMATOR, CMP, LIPA, HSTROPN ####[facility] Qkaikawdzp[address] [place] [address]Dr. Abhinav Laguna Calcium [Mass/Vol] 10.9 mg/dL Critically high 8.5-10.1 [facility] Comment on above: Performed By: #### B SENIOR ELECTRICAL ESTIMATOR, CMP, LIPA, HSTROPN ####[facility] Bytqrymtsr[address] [place], [place] [address]Dr. Abhinav Laguna Chloride [Moles/Vol] 96 mmol/L Critically low 98-107 [facility] Comment on above: Performed By: #### B SENIOR ELECTRICAL ESTIMATOR, CMP, LIPA, HSTROPN ####[facility] Jypdvedvem[address] [place], [place] [address]Dr. Abhinav Laguna CO2 [Moles/Vol] 32.1 mmol/L Critically high 21.0-32.0 [facility] Comment on above: Performed By: #### B SENIOR ELECTRICAL ESTIMATOR, CMP, LIPA, HSTROPN ####[facility] Fxkeictibc[address] [place], [place] [address]Dr. Abhinav Laguna Creatinine [Mass/Vol] 1.19 mg/dL Normal 0.70-1.30 [facility] Comment on above: Performed By: #### B SENIOR ELECTRICAL ESTIMATOR, CMP, LIPA, HSTROPN ####[facility] Fgqqxikcxo[address] [place], [place] [address]Dr. Abhinav Laguna EGFR-AF MAURITANIAN >60 Normal >=60 [facility] Comment on above: Performed By: #### B SENIOR ELECTRICAL ESTIMATOR, CMP, LIPA, HSTROPN ####[facility] [address]jkcyiwqw[address] [place] [address]Dr. Abhinav Laguna EGFR-NON AF MAURITANIAN >60 Normal >=60 [facility] Comment on above: Performed By: #### B SENIOR ELECTRICAL ESTIMATOR, CMP, LIPA, HSTROPN ####[facility] Fclglnvzua32[address] [place] [address]Dr. Abhinav Laguna Globulin (S) [Mass/Vol] 4.6 g/dL Normal [facility] Comment on above: Performed By: #### B SENIOR ELECTRICAL ESTIMATOR, CMP, LIPA, HSTROPN ####[facility] Omcmayyzzi[address] [place] [address]Dr. Abhinav Laguna Glucose [Mass/Vol] 478 mg/dL Critically high 74-106 [facility] Comment on above: Performed By: #### B SENIOR ELECTRICAL ESTIMATOR, CMP, LIPA, HSTROPN ####[facility] [address]dw[address]ggghlj[address] [place] [address]Dr. Abhinav Laguna Potassium [Moles/Vol] 4.8 mmol/L Normal 3.5-5.1 [facility] Comment on above: Performed By: #### B SENIOR ELECTRICAL ESTIMATOR, CMP, LIPA, HSTROPN ####[facility] Potlgcwdky[address] [place], [place] [address]Dr. Abhinav Laguna Protein [Mass/Vol] 7.3 g/dL Normal 6.4-8.2 [facility] Comment on above: Performed By: #### B SENIOR ELECTRICAL ESTIMATOR, CMP, LIPA, HSTROPN ####[facility] Gchimlhbwk[address] [place], [place] [address]Dr. Abhinav Laguna Sodium [Moles/Vol] 131 mmol/L Critically low 136-145 [facility] Comment on above: Performed By: #### B SENIOR ELECTRICAL ESTIMATOR, CMP, LIPA, HSTROPN ####[facility] Livwgsqqoa[address] [place] [address]Dr. Abhinav Laguna Urea nitrogen [Mass/Vol] 35.0 mg/dL Critically high 7.0-18.0 [facility] Comment on above: Performed By: #### B SENIOR ELECTRICAL ESTIMATOR, CMP, LIPA, HSTROPN ####[facility] [address]thqhu[address] [place] [address]Dr. Abhinav Laguna Urea nitrogen/Creatinine [Mass ratio] 29.4 mg/mg Normal [facility] Comment on above: Performed By: #### B SENIOR ELECTRICAL ESTIMATOR, CMP, LIPA, HSTROPN ####[facility] Zjtkemitby[address] [place], [place] [address]Dr. Abhinav Laguna TROPONIN, HIGH SENSITIVITYon 12-03-2022 HSTROP 8.5 pg/mL Normal 4.0-76.1 [facility] Comment on above: Result Comment: CUT- OFF POINTS HAVE BEEN ESTABLISHED BASED ON THE FOURTH UNIVERSAL DEFINITIONS OF MYOCARDIALINFARCTION. THE UPPER REFERENCE LIMIT (URL) OF TROPONIN, DEFINED THE 99TH PERCENTILE OFcTnI DISTRIBUTION IN A REFERENCE POPULATION, HAS BEEN CONFIRMED THE DECISION THRESHOLDFOR VA DIAGNOSIS. Performed By: #### B SENIOR ELECTRICAL ESTIMATOR, CMP, LIPA, HSTROPN ####[facility] [address]yel[address]utr[address] [place] [address]Dr. Abhinav Laguna XR CHEST 1 Von 12-03-2022 XR CHEST 1 V Normal [facility] CARDIAC GILMER ADMITon 023 CK [Catalytic activity/Vol] 46 U/L Normal 39-308 [facility] Comment on above: Performed By: #### B DAVID, TAD ####[facility] [address]qyucv[address] [place] [address]Dr. Abhinav Laguna CK.MB [Mass/Vol] 2.60 ng/mL Normal <=3.60 [facility] Comment on above: Performed By: #### B DAVID, JONELDM ####[facility] Yscdeneonj[address] [place], [place] [address]Dr. Abhinav Laguna HSTROP 9.8 pg/mL Normal 4.0-76.1 [facility] Comment on above: Result Comment: CUT- OFF POINTS HAVE BEEN ESTABLISHED BASED ON THE FOURTH UNIVERSAL DEFINITIONS OF MYOCARDIALINFARCTION. THE UPPER REFERENCE LIMIT (URL) OF TROPONIN, DEFINED THE 99TH PERCENTILE OFcTnI DISTRIBUTION IN A REFERENCE POPULATION, HAS BEEN CONFIRMED THE DECISION THRESHOLDFOR VA DIAGNOSIS. Performed By: #### B DAVID, CMADM ####[facility] Kooupeuswf[address] [place] [address]Dr. Abhinav Laguna RAINER 43 ng/mL Normal 16-96 [facility] Comment on above: Performed By: #### B DAVID, CMADM ####[facility] Eduxkjmfzn[address] [place] [address]Dr. Abhinav Laguna CBC AUTO DIFFon 11-27-2022 BASO # 0.1 103/ul Normal 0.0-0.1 [facility] Comment on above: Performed By: #### C BC ####[facility] [address]pbur[address]izfy[address] [place] [id number]. Abhinav Laguna Basophils/100 WBC (Bld) 0.4 % Normal 0.2-2.0 [facility] Comment on above: Performed By: #### C BC ####[facility] Ndycvbgidn[address] [place], [place] [address]Dr. Abhinav Laguna EO # 0.1 103/ul Normal 0.0-0.7 [facility] Comment on above: Performed By: #### C BC ####[facility] Vpijzldzhd[address] [place], [place] [address]Dr. Abhinav Laguna Eosinophils/100 WBC (Bld) 0.6 % Critically low 0.9-7.0 [facility] Comment on above: Performed By: #### C BC ####[facility] Tmkjcjftog[address] [place], [place] [address]Dr. Abhinav Laguna Erythrocyte distribution width (RBC) [Ratio] 13.2 % Normal 11.0-15.0 [facility] Comment on above: Performed By: #### C BC ####[facility] Msrhezgztt[address] [place], [place] [address]Dr. Abhinav Laguna Hematocrit (Bld) [Volume fraction] 42.4 % Normal 42.0-54.0 [facility] Comment on above: Performed By: #### C BC ####[facility] Mjljudvfbi[address] [place], [place] [address]Dr. Abhinav Laguna Hemoglobin (Bld) [Mass/Vol] 14.5 g/dL Normal 14.0-18.0 [facility] Comment on above: Performed By: #### C BC ####[facility] N[address]qyvaibw[address] [place], [place] [address]Dr. Abhinav Laguna IG # 0.07 10e3/ul Critically high 0.00-0.03 [facility] Comment on above: Performed By: #### C BC ####[facility] Qbfkcuowpv[address] [place], [place] [address]Dr. Abhinav Laguna IG % 0.4 % Normal 0.0-0.5 [facility] Comment on above: Performed By: #### C BC ####[facility] Vrjhjlzxim[address] [place] [id number]. Abhinav Jase LYMPH # 2.3 103/ul Normal 1.2-3.8 [facility] Comment on above: Performed By: #### C BC ####[facility] Dggbxtgzmm55[address] [place] [id number]. Abhinav Laguna Lymphocytes/100 WBC (Bld) 13.2 % Critically low 20.5-60.0 [facility] Comment on above: Performed By: #### C BC ####[facility] [address]ouyx[address] [place] [address]Dr. Abhinav Laguna MANUAL DIFF REQ NO Normal [facility] Comment on above: Performed By: #### C BC ####[facility] Qgvmtcayoh[address] [place] [address]Dr. Abhinav Laguna MCH (RBC) [Entitic mass] 31.0 pg Normal 25.9-34.0 [facility] Comment on above: Performed By: #### C BC ####[facility] Eptjporuad[address] [place] [address]Dr. Mirandagallo Laguna MCHC (RBC) [Mass/Vol] 34.2 g/dL Normal 29.9-35.2 [facility] Comment on above: Performed By: #### C BC ####[facility] [address]kwgygtqu[address] [place] [id number]. Abhinav Laguna MCV (RBC) [Entitic vol] 90.6 fL Normal 80.0-94.0 [facility] Comment on above: Performed By: #### C BC ####[facility] [address]nvepsp[address] [place] [id number]. Abhinav Laguna MONO # 1.3 103/ul Critically high 0.3-0.8 [facility] Comment on above: Performed By: #### C BC ####[facility] Jnblcgtfhs[address] [place] [id number]. Abhinav Laguna Monocytes/100 WBC (Bld) 7.5 % Normal 1.7-12.0 [facility] Comment on above: Performed By: #### C BC ####[facility] Hzrlliybag4[address] [place] [id number] Laguna NEUT # 13.3 103/ul Critically high 1.4-6.5 [facility] Comment on above: Performed By: #### C BC ####[facility] Xklrfttsgn4235 [place] [id number] Laguna Neutrophils/100 WBC (Bld) 77.9 % Critically high 43.0-75.0 [facility] Comment on above: Performed By: #### C BC ####[facility] Qbnrevfbww26[address] [place] [id number] Laguna Platelet mean volume (Bld) [Entitic vol] 9.7 fL Normal 9.5-13.5 [facility] Comment on above: Performed By: #### C BC ####[facility] Ffmoimhxpg[address] [place] [address]DrNohemi Laguna PLT 499 103/ul Critically high 150-450 [facility] Comment on above: Performed By: #### C BC ####[facility] Knbdmljxnp87[address] [place] [id number]. Abhinav Laguna RBC 4.68 106/ul Critically low 4.70-6.10 [facility] Comment on above: Performed By: #### C BC ####[facility] Yvwrojwdsi28[address] [place] [id number] Laguna WBC 17.1 103/ul Critically high 4.0-11.0 [facility] Comment on above: Performed By: #### C BC ####[facility] Fwbgsbyjnm5849 [place] [id number] Laguna POINT OF CARE GLUCOSEon 11-15 Glucose [Mass/Vol] 470 mg/dL Critically high 74-106 [facility] Comment on above: Performed By: #### P OCGLUC ####[facility] Vzqwtvawck[address] [place] [id number] Laguna PROF CHEM 8 (BAS METB)on Anion gap [Moles/Vol] 7.5 mmol/L Normal [facility] Comment on above: Performed By: #### TAD Corley MP ####[facility] Ulredsbrfs[address] [place] [address]Dr. Abhinav Laguna Calcium [Mass/Vol] 10.8 mg/dL Critically high 8.5-10.1 [facility] Comment on above: Performed By: #### TAD Corley MP ####[facility] Ggzswfgphc[address] [place], [place] [address]Dr. Abhinav Laguna Chloride [Moles/Vol] 102 mmol/L Normal 98-107 [facility] Comment on above: Performed By: #### TAD Corley MP ####[facility] Mbeskvqqkz[address] [place], [place] [address]Dr. Abhinav Laguna CO2 [Moles/Vol] 31.2 mmol/L Normal 21.0-32.0 [facility] Comment on above: Performed By: #### TAD Corley MP ####[facility] [address]zpnpnkuw[address] [place], [place] [address]Dr. Mirandagallo Laguna Creatinine [Mass/Vol] 0.86 mg/dL Normal 0.70-1.30 [facility] Comment on above: Performed By: #### TAD Corley MP ####[facility] [id number] [address] [place], [place] [address]Dr. Mirandagallo Jase EGFR-AF MAURITANIAN >60 Normal >=60 [facility] Comment on above: Performed By: #### TAD Corley MP ####[facility] Clwmhrdakx[address] [place], [place] [address]Dr. Abhinav Laguna EGFR-NON AF MAURITANIAN >60 Normal >=60 [facility] Comment on above: Performed By: #### TAD Corley MP ####[facility] Objzpreyqw67[address] [place], [place] [address]Dr. Abhinav Laguna Glucose [Mass/Vol] 513 mg/dL Critically high 74-106 [facility] Comment on above: Performed By: #### TAD Corley MP ####[facility] Bdqysfcomm89[address] [place], [place] [address]Dr. Abhinav Laguna Potassium [Moles/Vol] 4.7 mmol/L Normal 3.5-5.1 [facility] Comment on above: Performed By: #### B TAD HERNANDEZ ####[facility] Vguighwcxo[address] [place] [address]Dr. Abhinav Jase Sodium [Moles/Vol] 136 mmol/L Normal 136-145 [facility] Comment on above: Performed By: #### B TAD HERNANDEZ ####[facility] Qievhwyqgo1888 [place] [address]Dr. Mirandagallo Laguna Urea nitrogen [Mass/Vol] 30.0 mg/dL Critically high 7.0-18.0 [facility] Comment on above: Performed By: #### B TAD HERNANDEZ ####[facility] Valwxyovpo1954[address] [place], [place] [address]Dr. Abhinav Laguna Urea nitrogen/Creatinine [Mass ratio] 34.9 mg/mg Normal [facility] Comment on above: Performed By: #### B TAD HERNANDEZ ####[facility] Pnqoclzzus[address] [place], [place] [address]Dr. Abhinav Jase XR CHEST 2 Von 11-27-2022 XR CHEST 2 V Normal [facility] CBC AUTO DIFFon 11-26-2022 BASO # 0.0 103/ul Normal 0.0-0.1 [facility] Comment on above: Performed By: #### C BC ####[facility] Mbzjjdmais6[address] [place], [place] [address]Dr. Abhinav Laguna Basophils/100 WBC (Bld) 0.2 % Normal 0.2-2.0 [facility] Comment on above: Performed By: #### C BC ####[facility] Fmlepoeynf9153[address] [place], [place] [address]Dr. Abhinav Laguna EO # 0.0 103/ul Normal 0.0-0.7 [facility] Comment on above: Performed By: #### C BC ####[facility] Dvcnyfxzcc4117[address] [place], [place] [address]Dr. Abhinav Laguna Eosinophils/100 WBC (Bld) 0.0 % Critically low 0.9-7.0 [facility] Comment on above: Performed By: #### C BC ####[facility] Aflsvkxnij50[address] [place] [address]Dr. Abhinav Laguna Erythrocyte distribution width (RBC) [Ratio] 13.0 % Normal 11.0-15.0 [facility] Comment on above: Performed By: #### C BC ####[facility] Apyymsudbg7081[address] [place], [place] [address]Dr. Abhinav Laguna Hematocrit (Bld) [Volume fraction] 39.9 % Critically low 42.0-54.0 [facility] Comment on above: Performed By: #### C BC ####[facility] Zaydatlbtx6[address] [place], [place] [address]Dr. Abhinav Laguna Hemoglobin (Bld) [Mass/Vol] 14.0 g/dL Normal 14.0-18.0 [facility] Comment on above: Performed By: #### C BC ####[facility] Swowzhspgi136619 [address] [place], [place] [address]Dr. Abhinav Laguna IG # 0.08 10e3/ul Critically high 0.00-0.03 [facility] Comment on above: Performed By: #### C BC ####[facility] Ryyswyzfyb369319 [address] [place], [place] [address]Dr. Abhinav Laguna IG % 0.4 % Normal 0.0-0.5 [facility] Comment on above: Performed By: #### C BC ####[facility] Xokzxkkyrw16[address] [place], [place] [address]Dr. Abhinav Laguna LYMPH # 2.3 103/ul Normal 1.2-3.8 [facility] Comment on above: Performed By: #### C BC ####[facility] Xyeaehgqhv4[address] [place], [place] [address]Dr. Abhinav Laguna Lymphocytes/100 WBC (Bld) 12.2 % Critically low 20.5-60.0 [facility] Comment on above: Performed By: #### C BC ####[facility] Wnokoelpsx966619 [address] [place], [place] [address]Dr. Abhinav Laguna MANUAL DIFF REQ NO Normal [facility] Comment on above: Performed By: #### C BC ####[facility] Bsyrlvscya80[address] [place] [address]DrNohemi Abhinav Jase MCH (RBC) [Entitic mass] 31.4 pg Normal 25.9-34.0 [facility] Comment on above: Performed By: #### C BC ####[facility] Vwyseqdnrd4233 [place] [address]Dr. Abhinav Jase MCHC (RBC) [Mass/Vol] 35.1 g/dL Normal 29.9-35.2 [facility] Comment on above: Performed By: #### C BC ####[facility] Mwfgkfdhar3996 [place] [address]DrNohemi Laguna MCV (RBC) [Entitic vol] 89.5 fL Normal 80.0-94.0 [facility] Comment on above: Performed By: #### C BC ####[facility] Ffqlaejgtv114[address] [place], [place] [address]DrNohemi Laguna MONO # 1.2 103/ul Critically high 0.3-0.8 [facility] Comment on above: Performed By: #### C BC ####[facility] Hfimbnjxlt0741[address] [place], [place] [address]Dr. Mirandagallo Laguna Monocytes/100 WBC (Bld) 6.2 % Normal 1.7-12.0 [facility] Comment on above: Performed By: #### C BC ####[facility] Lhfyopvsiq7167[address] [place], [place] [address]DrNohemi Laguna NEUT # 15.1 103/ul Critically high 1.4-6.5 [facility] Comment on above: Performed By: #### C BC ####[facility] Bdqyurfdrk5278[address] [place], [place] [address]DrNohemi Laguna Neutrophils/100 WBC (Bld) 81.0 % Critically high 43.0-75.0 [facility] Comment on above: Performed By: #### C BC ####[facility] Iftiwvonlk8712[address] [place], [place] [address]DrNohemi Laguna Platelet mean volume (Bld) [Entitic vol] 9.5 fL Normal 9.5-13.5 [facility] Comment on above: Performed By: #### C BC ####[facility] Ekunxwfkvw5[address] [place] [address]Dr. Abhinav Laguna PLT 514 103/ul Critically high 150-450 [facility] Comment on above: Performed By: #### C BC ####[facility] Vavccjkopv3816 [place] [address]Dr. Abhinav Laguna RBC 4.46 106/ul Critically low 4.70-6.10 [facility] Comment on above: Performed By: #### C BC ####[facility] Zqnfoxkovu57[address] [place] [address]Dr. Abhinav Laguna WBC 18.7 103/ul Critically high 4.0-11.0 [facility] Comment on above: Performed By: #### C BC ####[facility] Mgdutuiwhc414[address] [place], [place] [address]DrNohemi Laguna PROF CHEM 8 (BAS METB)on Anion gap [Moles/Vol] 10.9 mmol/L Normal [facility] Comment on above: Performed By: #### B MP ####[facility] Gcknrgljec805[address] [place], [place] [address]DrNohemi Laguna Calcium [Mass/Vol] 10.6 mg/dL Critically high 8.5-10.1 [facility] Comment on above: Performed By: #### B MP ####[facility] Anuahnnvcx7532[address] [place], [place] [address]DrNohemi Laguna Chloride [Moles/Vol] 103 mmol/L Normal 98-107 [facility] Comment on above: Performed By: #### B MP ####[facility] Gnfdfqyvad0165[address] [place], [place] [address]DrNohemi Laguna CO2 [Moles/Vol] 28.8 mmol/L Normal 21.0-32.0 [facility] Comment on above: Performed By: #### B MP ####[facility] Ebuugbvquj931219 [address] [place], [place] [address]DrNohemi Laguna Creatinine [Mass/Vol] 0.90 mg/dL Normal 0.70-1.30 [facility] Comment on above: Performed By: #### B MP ####[facility] Xssnturbgz4[address] [place] [address]Dr. Abhinav Jase EGFR-AF MAURITANIAN >60 Normal >=60 [facility] Comment on above: Performed By: #### B MP ####[facility] Hosaldpxgi12[address] [place] [address]Dr. Abhinav Jase EGFR-NON AF MAURITANIAN >60 Normal >=60 [facility] Comment on above: Performed By: #### B MP ####[facility] Jtdoxzyhvw0201 [place] [address]Dr. Mirandagallo Jase Glucose [Mass/Vol] 296 mg/dL Critically high 74-106 [facility] Comment on above: Performed By: #### B MP ####[facility] Xcjisfyjbz0665[address] [place], [place] [address]Dr. Abhinav Laguna Potassium [Moles/Vol] 4.7 mmol/L Normal 3.5-5.1 [facility] Comment on above: Performed By: #### B MP ####[facility] Jtrqrbgviw489219 [address] [place], [place] [address]Dr. Abhinav Laguna Sodium [Moles/Vol] 138 mmol/L Normal 136-145 [facility] Comment on above: Performed By: #### B MP ####[facility] Cpzbggedhj0970 [place] [address]Dr. Mirandagallo Jase Urea nitrogen [Mass/Vol] 32.0 mg/dL Critically high 7.0-18.0 [facility] Comment on above: Performed By: #### B MP ####[facility] Smvayekzrh3857 [place] [address]Dr. Abhinav Laguna Urea nitrogen/Creatinine [Mass ratio] 35.6 mg/mg Normal [facility] Comment on above: Performed By: #### B MP ####[facility] Tmzuanzkcm024[address] [place], [place] [address]Dr. Abhinav Laguna BLOOD GASES BTYon 11-25-2022 02 MODE NASAL CANNULA Normal [facility] Comment on above: Performed By: #### A BG ####[facility] Vvozzzmbiu45[address] [place] [address]Dr. Abhinav Laguna ALLENS TEST Positive Normal [facility] Comment on above: Performed By: #### A BG ####[facility] Indhmlpcwc9465 [place] [address]Dr. Abhinav Laguna Base excess Calc (Bld) [Moles/Vol] 4.5 mmol/L Critically high -2.0-2.0 [facility] Comment on above: Performed By: #### A BG ####[facility] Sosszqomui47[address] [place] [address]Dr. Abhinav Laguna BIPAP PRESSURE Normal [facility] Comment on above: Performed By: #### A BG ####[facility] Lutfwyfoqe1979[address] [place], [place] [address]Dr. Abhinav Laguna CPAP Normal [facility] Comment on above: Performed By: #### A BG ####[facility] Rvaemhjfhm6523[address] [place], [place] [address]Dr. Abhinav Laguna FIO2 Normal [facility] Comment on above: Performed By: #### A BG ####[facility] Aibiikldhw962919 [address] [place], [place] [address]Dr. Abhinav Laguna HCO3 (Bld) [Moles/Vol] 28.7 mmol/L Critically high 22.0-26 .0 [facility] Comment on above: Performed By: #### A BG ####[facility] Zibylajjcc9159[address] [place], [place] [address]Dr. Abhinav Laguna LPM 4 Normal [facility] Comment on above: Performed By: #### A BG ####[facility] Uauwjqewfl2963[address] [place], [place] [address]Dr. Abhinav Laguna MINUTE VOLUME Normal [facility] Comment on above: Performed By: #### A BG ####[facility] Citwiixivw3115[address] [place], [place] [address]Dr. Abhinav Laguna Oxygen (Bld) [Partial pressure] 82.3 mm[Hg] Normal 80.0-100.0 [facility] Comment on above: Performed By: #### A BG ####[facility] Dmqwhtwtfm9013 [place] [address]Dr. Abhinav Laguna Oxygen saturation in Blood 97.3 % Normal 95.0-100.0 [facility] Comment on above: Performed By: #### A BG ####[facility] Acxvjxcwtc2298 [place] [address]Dr. Abhinav Laguna PCO2 43.1 mmHg Normal 35.0-45.0 [facility] Comment on above: Performed By: #### A BG ####[facility] Qqyrwatlnq3165[address] [place], [place] [address]Dr. Abhinav Laguna [facility] Comment on above: Performed By: #### A BG ####[facility] Whsmphvdts8553[address] [place], [place] [address]Dr. Abhinav Laguna pH (Bld) 7.432 [pH] Normal 7.350-7.450 [facility] Comment on above: Performed By: #### A BG ####[facility] Lrovhittue0715[address] [place], [place] [address]Dr. Abhinav Laguna [facility] Comment on above: Performed By: #### A BG ####[facility] Buwgfwqrkz5806[address] [place], [place] [address]Dr. Abhinav Laguna [facility] Comment on above: Performed By: #### A BG ####[facility] Pwswrhrmzs[address] [place], [place] [address]Dr. Abhinav Laguna PUNCTURE SITE [facility] Comment on above: Performed By: #### A BG ####[facility] Xydvezysvp173119 [address] [place], [place] [address]Dr. Abhinav Laguna [facility] Comment on above: Performed By: #### A BG ####[facility] Aywyrpbyvs00[address] [place], [place] [address]Dr. Abhinav Laguna [facility] Comment on above: Performed By: #### A BG ####[facility] Elufmytvis0147[address] [place], [place] [address]Dr. Abhinav Laguna [facility] Comment on above: Performed By: #### A BG ####[facility] Jlcygnsuhl86[address] [place] [address]Dr. Abhinav Laguna BNPon 11-25-2022 Natriuretic peptide B (Bld) [Mass/Vol] 279.0 pg/mL Normal <=900.0 [facility] Comment on above: Performed By: #### H STROPN, BNP, BMP ####[facility] Vwjxvdahsx9538[address] [place], [place] [address]Dr. Abhinav Laguna CBC AUTO DIFFon 11-25-2022 BASO # 0.1 103/ul Normal 0.0-0.1 [facility] Comment on above: Performed By: #### C BC ####[facility] Vjsfjokizd3182[address] [place], [place] [address]Dr. Abhinav Jase Basophils/100 WBC (Bld) 0.3 % Normal 0.2-2.0 [facility] Comment on above: Performed By: #### C BC ####[facility] Draisdewmr087[address] [place], [place] [address]Dr. Abhinav Jase EO # 0.1 103/ul Normal 0.0-0.7 [facility] Comment on above: Performed By: #### C BC ####[facility] Ldmmzegorq5937[address] [place], [place] [address]Dr. Abhinav Jase Eosinophils/100 WBC (Bld) 0.3 % Critically low 0.9-7.0 [facility] Comment on above: Performed By: #### C BC ####[facility] Foaanimeuk9019[address] [place], [place] [address]Dr. Abhinav Laguna Erythrocyte distribution width (RBC) [Ratio] 12.9 % Normal 11.0-15.0 [facility] Comment on above: Performed By: #### C BC ####[facility] Jymybnizus9897[address] [place], [place] [address]Dr. Mirandagallo Jase Hematocrit (Bld) [Volume fraction] 39.1 % Critically low 42.0-54.0 [facility] Comment on above: Performed By: #### C BC ####[facility] Afgnkqqcyf322619 [address] [place], [place] [address]Dr. Abhinav Laguna Hemoglobin (Bld) [Mass/Vol] 14.0 g/dL Normal 14.0-18.0 [facility] Comment on above: Performed By: #### C BC ####[facility] Gxjpyidwnx8905 [place] [address]Dr. Abhinav Laguna IG # 0.12 10e3/ul Critically high 0.00-0.03 [facility] Comment on above: Performed By: #### C BC ####[facility] Xbyacvonxb5050 [place] [address]Dr. Abhinav Laguna IG % 0.5 % Normal 0.0-0.5 [facility] Comment on above: Performed By: #### C BC ####[facility] Murxvnzbqh036[address] [place], [place] [address]DrNohemi Laguna LYMPH # 2.2 103/ul Normal 1.2-3.8 [facility] Comment on above: Performed By: #### C BC ####[facility] Cvhjxjwynn1806[address] [place], [place] [address]Dr. Abhinav Laguna Lymphocytes/100 WBC (Bld) 9.5 % Critically low 20.5-60.0 [facility] Comment on above: Performed By: #### C BC ####[facility] Qcvokgbjgs2896[address] [place], [place] [address]DrNohemi Laguna MANUAL DIFF REQ NO Normal [facility] Comment on above: Performed By: #### C BC ####[facility] Kdoavhywij8015[address] [place], [place] [address]DrNohemi Laguna MCH (RBC) [Entitic mass] 31.5 pg Normal 25.9-34.0 [facility] Comment on above: Performed By: #### C BC ####[facility] Rfbzvmejts5503[address] [place], [place] [address]DrNohemi Laguna MCHC (RBC) [Mass/Vol] 35.8 g/dL Critically high 29.9-35.2 [facility] Comment on above: Performed By: #### C BC ####[facility] Wvvygwauzo1866[address] [place], [place] [address]DrNohemi La Jase MCV (RBC) [Entitic vol] 87.9 fL Normal 80.0-94.0 [facility] Comment on above: Performed By: #### C BC ####[facility] Brebyrgzox[address] [place] [address]DrNohemi Abhinav Laguna MONO # 1.3 103/ul Critically high 0.3-0.8 [facility] Comment on above: Performed By: #### C BC ####[facility] Wmxcybwwtw7708 [place] [address]DrNohemi Laguna Monocytes/100 WBC (Bld) 5.6 % Normal 1.7-12.0 [facility] Comment on above: Performed By: #### C BC ####[facility] Qftnlkspwb4153[address] [place], [place] [address]DrNohemi Jeangallo Laguna NEUT # 19.6 103/ul Critically high 1.4-6.5 [facility] Comment on above: Performed By: #### C BC ####[facility] Xflkynwkch5967[address] [place], [place] [address]Dr. Abhinav Laguna Neutrophils/100 WBC (Bld) 83.8 % Critically high 43.0-75.0 [facility] Comment on above: Performed By: #### C BC ####[facility] Xuuvupfoak8013[address] [place], [place] [address]Dr. Abhinav Laguna Platelet mean volume (Bld) [Entitic vol] 10.1 fL Normal 9.5-13.5 [facility] Comment on above: Performed By: #### C BC ####[facility] Rexqkqgncw7[address] [place], [place] [address]Dr. Abhinav Laguna PLT 467 103/ul Critically high 150-450 [facility] Comment on above: Performed By: #### C BC ####[facility] Dlktlwlwix8113[address] [place], [place] [address]DrNohemi Laguna RBC 4.45 106/ul Critically low 4.70-6.10 [facility] Comment on above: Performed By: #### C BC ####[facility] Wjhfccmcri[address] [place], [place] [address]DrNohemi Laguna WBC 23.4 103/ul Critically high 4.0-11.0 [facility] Comment on above: Performed By: #### C BC ####[facility] Ueptdhjvbq2641 [place], [place] [address]El. Abhinav Laguna CULTURE BLOODon 11-25-2022 Microscopic examination of blood, culture Culture Observations: NO GROWTH AT 5 DAYS. Normal [facility] Comment on above: Performed By: #### B LDCX2 ####[facility] Scagzvxvwo6548 [place], [place] [address]Hw. Abhinav Laguna Microscopic examination of blood, culture Culture Observations: NO GROWTH AT 5 DAYS. Normal [facility] Comment on above: Performed By: #### B LDCX1 ####[facility] Eazysaefpz4746 [place], [place] [address]Qj. Abhinav Laguna Covid-19 PCR (CVDTB)on 11-15 SARS-CoV-2 (COVID-19) RNA EVERT+probe Ql (Unsp spec) Not detected Normal NOT DETECTED [facility] Comment on above: Result Comment: When diagnostic [...] for this test is supported by the Station Installer And Repairer of Health and Human Service's declaration that [...] be used). Performed By: #### C VDTBH ####[facility] Lrynsyzjlo5491 [place], [place] [address]Se. Abhinav Laguna DRUG SCREEN RAPID (URINE)on 04-11-2023 AMP Negative Normal NEGATIVE [facility] Comment on above: Performed By: #### D RUGRPD ####[facility] Uugcbshoxk260[address] [place] [address]Dr. Mirandagallo Laguna BAR Positive Abnormal NEGATIVE [facility] Comment on above: Performed By: #### D RUGRPD ####[facility] Rjkbbsmffj9087 [place] [address]Dr. Mirandagallo Laguna BUP Negative Normal NEGATIVE [facility] Comment on above: Performed By: #### D RUGRPD ####[facility] Tnopbbbsbv6848[address] [place], [place] [address]Dr. Mirandagallo Laguna BZO Negative Normal NEGATIVE [facility] Comment on above: Performed By: #### D RUGRPD ####[facility] Gfwqsgsvoz0004[address] [place], [place] [address]Dr. Mirandagallo Laguna ISELA Negative Normal NEGATIVE [facility] Comment on above: Performed By: #### D RUGRPD ####[facility] Aryolmazfl7939[address] [place], [place] [address]Dr. Abhinav Laguna CUT-OFFS SEE BELOW Normal [facility] Comment on above: Result Comment: AMP (Amphetamine): 500ng/mL, BAR (Barbituates): 200 ng/mL, BZO (Benzodiazepines): 150 ng/mL, BUP (Buprenorphine): 10 ng/mL, ISELA (Cocaine): 150 ng/mL, mAMP (Methamphetamine): 500 ng/mL, MTD (Methadone): 200 ng/mL, OPI (Opiates): 100 ng/mL, OXY (Oxycodone): 100 ng/mL, PCP (Phencyclidine): 25 ng/mL, PPX (Propoxyphene): 300 ng/mL, THC (Cannabinoids): 50 ng/mL, TCA (Trycyclic Antidepressants): 300 ng/mL Performed By: #### D RUGRPD ####[facility] Dthycsfmcg89[address] [place], [place] [address]Dr. Abhinav Laguna DRUG CUT HEADER DRUG CLASS TEST SYST EM CUT-OFF CONCENTRATIONS ARE FOLLOWS: Normal [facility] Comment on above: Performed By: #### D RUGRPD ####[facility] Elcilhunkh[address] [place] [address]Dr. Abhinav Laugna mAMP Negative Normal NEGATIVE [facility] Comment on above: Performed By: #### D RUGRPD ####[facility] Qlkhgclaio8[address] [place] [id number]. Abhinav Laguna MTD Negative Normal NEGATIVE [facility] Comment on above: Performed By: #### D RUGRPD ####[facility] Irusjszduj4169 [place] [id number]. Abhinav Laguna OPI Negative Normal NEGATIVE [facility] Comment on above: Performed By: #### D RUGRPD ####[facility] Ygkkaucssu8899[address] [place], [place] [address]Dr. Abhinav Laguna OXY Negative Normal NEGATIVE [facility] Comment on above: Performed By: #### D RUGRPD ####[facility] Iutmugobrd2406[address] [place], [place] [address]Dr. Abhinav Laguna PCP Negative Normal NEGATIVE [facility] Comment on above: Performed By: #### D RUGRPD ####[facility] Hknkbshkia07[address] [place], [place] [address]Dr. Abhinav Laguna PPX Negative Normal NEGATIVE [facility] Comment on above: Performed By: #### D RUGRPD ####[facility] Nbktzkqzya027[address] [place], [place] [address]Dr. Abhinav Laguna TCA Negative Normal NEGATIVE [facility] Comment on above: Performed By: #### D RUGRPD ####[facility] Avneblpnxu[address] [place], [place] [address]Dr. Abhinav Laguna THC Positive Abnormal NEGATIVE [facility] Comment on above: Performed By: #### D RUGRPD ####[facility] Ofgqihfqms54[address] [place], [place] [address]Dr. Abhinav Laguna ETHANOL (BLD ALC)on 11-26-19 23 ALC NOTE NOTE: 80 mg/dl is th e legal limit for a blood alcohol level Normal [facility] Comment on above: Performed By: #### E TH ####[facility] Aidqaljjtj5[address] [place], [place] [address]Dr. Abhinav Laguna Ethanol [Mass/Vol] mg/dL Normal [facility] Comment on above: Performed By: #### E TH ####[facility] Qllocdzigv[address] [place] [address]Dr. Abhinav Laguna LACTATE/LACTIC ACIDon 2022 Lactate [Moles/Vol] 1.5 mmol/L Normal 0.4-2.0 [facility] Comment on above: Performed By: #### L ACT ####[facility] Irzdjpdyur[address] [place], [place] [address]Dr. Abhinav Laguna POINT OF CARE GLUCOSEon 11-15 Glucose [Mass/Vol] 457 mg/dL Critically high 74-106 [facility] Comment on above: Performed By: #### P OCGLUC ####[facility] Ujhsqbtaon[address] [place], [place] [address]Dr. Abhinav Laguna PROF CHEM 8 (BAS METB)on Anion gap [Moles/Vol] 11.9 mmol/L Normal [facility] Comment on above: Performed By: #### H STROPN, BNP, BMP ####[facility] Xazaujzrcs[address] [place], [place] [address]Dr. Abhinav Laguna Calcium [Mass/Vol] 10.2 mg/dL Critically high 8.5-10.1 [facility] Comment on above: Performed By: #### H STROPN, BNP, BMP ####[facility] Vxydnybhmr[address] [place], [place] [address]Dr. Abhinav Laguna Chloride [Moles/Vol] 96 mmol/L Critically low 98-107 [facility] Comment on above: Performed By: #### H STROPN, BNP, BMP ####[facility] Jzjcfqziug74[address] [place], [place] [address]Dr. Abhinav Laguna CO2 [Moles/Vol] 28.7 mmol/L Normal 21.0-32.0 [facility] Comment on above: Performed By: #### H STROPN, BNP, BMP ####[facility] Uqcumuejup23[address] [place], [place] [address]Dr. Abhinav Laguna Creatinine [Mass/Vol] 0.83 mg/dL Normal 0.70-1.30 [facility] Comment on above: Performed By: #### H STROPN, BNP, BMP ####[facility] Snspclmujl[address] [place] [address]Dr. Abhinav Laguna EGFR-AF MAURITANIAN >60 Normal >=60 [facility] Comment on above: Performed By: #### H STROPN, BNP, BMP ####[facility] Azurumzugx[address] [place] [address]Dr. Abhinav Laguna EGFR-NON AF MAURITANIAN >60 Normal >=60 [facility] Comment on above: Performed By: #### H STROPN, BNP, BMP ####[facility] Hxqxwqtjbn86[address] [place] [address]Dr. Mirandagallo Laguna Glucose [Mass/Vol] 470 mg/dL Critically high 74-106 [facility] Comment on above: Performed By: #### H STROPN, BNP, BMP ####[facility] Pstpfxefeu[address] [place] [address]Dr. Mirandagallo Laguna Potassium [Moles/Vol] 4.6 mmol/L Normal 3.5-5.1 [facility] Comment on above: Performed By: #### H STROPN, BNP, BMP ####[facility] Ywuhitfhsf[address] [place] [address]Dr. Abhinav Laguna Sodium [Moles/Vol] 132 mmol/L Critically low 136-145 [facility] Comment on above: Performed By: #### H STROPN, BNP, BMP ####[facility] Whwdhczswf[address] [place] [address]Dr. Abhinav Laguna Urea nitrogen [Mass/Vol] 18.0 mg/dL Normal 7.0-18.0 [facility] Comment on above: Performed By: #### H STROPN, BNP, BMP ####[facility] Lltutipitf[address] [place] [address]Dr. Abhinav Laguna Urea nitrogen/Creatinine [Mass ratio] 21.7 mg/mg Normal [facility] Comment on above: Performed By: #### H STROPN, BNP, BMP ####[facility] Dvlxzrydfe58[address] [place] [address]Dr. Abhinav Laguna TROPONIN, HIGH SENSITIVITYon 11-25-2022 HSTROP 10.1 pg/mL Normal 4.0-76.1 [facility] Comment on above: Result Comment: CUT- OFF POINTS HAVE BEEN ESTABLISHED BASED ON THE FOURTH UNIVERSAL DEFINITIONS OF MYOCARDIALINFARCTION. THE UPPER REFERENCE LIMIT (URL) OF TROPONIN, DEFINED THE 99TH PERCENTILE OFcTnI DISTRIBUTION IN A REFERENCE POPULATION, HAS BEEN CONFIRMED THE DECISION THRESHOLDFOR VA DIAGNOSIS. Performed By: #### H STROPN, BNP, BMP ####[facility] Cqzrmbbpcy[address] [place] [address]Dr. Abhinav Laguna XR CHEST 1 Von 11-25-2022 XR CHEST 1 V Normal [facility] ACETONE SERUMon 11-09-2022 ACETONE Negative Normal NEGATIVE [facility] Comment on above: Performed By: #### A CETON ####[facility] Mrpzwlhnut12[address] [place], [place] [address]Dr. Abhinav Laguna AMMONIAon 11-09-2022 Ammonia (P) [Moles/Vol] 13 umol/L Normal 11-32 [facility] Comment on above: Performed By: #### A MM ####[facility] Vxtkpncjfr[address] [place], [place] [address]Dr. Abhinav Laguna CBC AUTO DIFFon 11-09-2022 BASO # 0.1 103/ul Normal 0.0-0.1 [facility] Comment on above: Performed By: #### C BC ####[facility] Tltzuhihbd16[address] [place], [place] [address]Dr. Abhinav Laguna Basophils/100 WBC (Bld) 0.7 % Normal 0.2-2.0 [facility] Comment on above: Performed By: #### C BC ####[facility] Nljoratqyl[address] [place], [place] [address]Dr. Abhinav Laguna EO # 0.2 103/ul Normal 0.0-0.7 [facility] Comment on above: Performed By: #### C BC ####[facility] Sxykwjnejp1799[address] [place], [place] [address]Dr. Abhinav Laguna Eosinophils/100 WBC (Bld) 2.1 % Normal 0.9-7.0 [facility] Comment on above: Performed By: #### C BC ####[facility] Mqadtuyrsr01[address] [place] [address]Dr. Abhinav Laguna Erythrocyte distribution width (RBC) [Ratio] 12.0 % Normal 11.0-15.0 [facility] Comment on above: Performed By: #### C BC ####[facility] Denyhpsjdl260[address] [place], [place] [address]Dr. Abhinav Laguna Hematocrit (Bld) [Volume fraction] 47.3 % Normal 42.0-54.0 [facility] Comment on above: Performed By: #### C BC ####[facility] Jshnnuybus1897[address] [place], [place] [address]Dr. Abhinav Laguna Hemoglobin (Bld) [Mass/Vol] 17.2 g/dL Normal 14.0-18.0 [facility] Comment on above: Performed By: #### C BC ####[facility] Zbupfmnghd66[address] [place], [place] [address]Dr. Abhinav Laguna IG # 0.02 10e3/ul Normal 0.00-0.03 [facility] Comment on above: Performed By: #### C BC ####[facility] Qrythauznd4039[address] [place], [place] [address]Dr. Abhinav Laguna IG % 0.2 % Normal 0.0-0.5 [facility] Comment on above: Performed By: #### C BC ####[facility] Ycesqdadeb7[address] [place], [place] [address]Dr. Abhinav Laguna LYMPH # 2.4 103/ul Normal 1.2-3.8 [facility] Comment on above: Performed By: #### C BC ####[facility] Pfrnyqxwak27[address] [place], [place] [address]Dr. Abhinav Laguna Lymphocytes/100 WBC (Bld) 23.3 % Normal 20.5-60.0 [facility] Comment on above: Performed By: #### C BC ####[facility] Wlehattgjo9594[address] [place], [place] [address]Dr. Abhinav Laguna MANUAL DIFF REQ NO Normal [facility] Comment on above: Performed By: #### C BC ####[facility] Bxviwrppal78[address] [place] [address]Dr. Abhinav Jase MCH (RBC) [Entitic mass] 31.0 pg Normal 25.9-34.0 [facility] Comment on above: Performed By: #### C BC ####[facility] Emfnpzwuuy7859 [place] [address]Dr. Abhinav Jase MCHC (RBC) [Mass/Vol] 36.4 g/dL Critically high 29.9-35.2 [facility] Comment on above: Performed By: #### C BC ####[facility] Seglzaxsjh1685 [place] [address]Dr. Abhinav Laguna MCV (RBC) [Entitic vol] 85.4 fL Normal 80.0-94.0 [facility] Comment on above: Performed By: #### C BC ####[facility] Hluqmkbvch76[address] [place], [place] [address]Dr. Abhinav Laguna MONO # 0.6 103/ul Normal 0.3-0.8 [facility] Comment on above: Performed By: #### C BC ####[facility] Onhdanemdg6[address] [place], [place] [address]Dr. Abhinav Laguna Monocytes/100 WBC (Bld) 6.0 % Normal 1.7-12.0 [facility] Comment on above: Performed By: #### C BC ####[facility] Snhvizcwuk[address] [place], [place] [address]DrNohemi Laguna NEUT # 6.9 103/ul Critically high 1.4-6.5 [facility] Comment on above: Performed By: #### C BC ####[facility] Pzlkofyjmh[address] [place], [place] [address]DrNohemi Laguna Neutrophils/100 WBC (Bld) 67.7 % Normal 43.0-75.0 [facility] Comment on above: Performed By: #### C BC ####[facility] Fqmmwfeyci[address] [place], [place] [address]DrNohemi Laguna Platelet mean volume (Bld) [Entitic vol] 10.4 fL Normal 9.5-13.5 [facility] Comment on above: Performed By: #### C BC ####[facility] Snajtodleh[address] [place], [place] [address]Rb. Abhinav Laguna PLT 390 103/ul Normal 150-450 [facility] Comment on above: Performed By: #### C BC ####[facility] Rbgrpaumdc7669 [place], [place] [address]Hw. Abhinav aLguna RBC 5.54 106/ul Normal 4.70-6.10 [facility] Comment on above: Performed By: #### C BC ####[facility] Yxjtyopcsa6426 [place], [place] [address]Lu. Abhinav Laguna WBC 10.3 103/ul Normal 4.0-11.0 [facility] Comment on above: Performed By: #### C BC ####[facility] Gbaksvojwh[address]326 [place], [place] [address]Ww. Abhinav Laguna CT STROKE HEAD WOon 11-10-[address] STROKE HEAD WO Normal [facility] Covid-19 PCR (CVDTB)on 10-16 SARS-CoV-2 (COVID-19) RNA EVERT+probe Ql (Unsp spec) Not detected Normal NOT DETECTED [facility] Comment on above: Result Comment: When diagnostic [...] for this test is supported by the Station Installer And Repairer of Health and Human Service's declaration that [...] be used). Performed By: #### C VDTBH ####[facility] Qecvaoawke[address] [place] [address]Dr. Abhinav Laguna DRUG SCREEN RAPID (URINE)on 11-09-2022 AMP Negative Normal NEGATIVE [facility] Comment on above: Performed By: #### E RUR, DRUGRPD ####[facility] Lzmbswdhix87[address] [place] [address]Dr. Abhinav Laguna BAR Negative Normal NEGATIVE [facility] Comment on above: Performed By: #### E RUR, DRUGRPD ####[facility] Rkxkkbmogl3726 [place] [address]Dr. Abhinav [facility] BUP Negative Normal NEGATIVE [facility] Comment on above: Performed By: #### E RUR, DRUGRPD ####[facility] Uqpkrghavo[address] [place], [place] [address]Dr. Abhinav Laguna BZO Negative Normal NEGATIVE [facility] Comment on above: Performed By: #### E RUR, DRUGRPD ####[facility] Eodpcfespl[address] [place], [place] [address]Dr. Abhinav Laguna ISELA Negative Normal NEGATIVE [facility] Comment on above: Performed By: #### E RUR, DRUGRPD ####[facility] Twvwjqbhfx0[address] [place], [place] [address]Dr. Abhinav [facility] CUT-OFFS SEE BELOW Normal [facility] Comment on above: Result Comment: AMP (Amphetamine): 500ng/mL, BAR (Barbituates): 200 ng/mL, BZO (Benzodiazepines): 150 ng/mL, BUP (Buprenorphine): 10 ng/mL, ISELA (Cocaine): 150 ng/mL, mAMP (Methamphetamine): 500 ng/mL, MTD (Methadone): 200 ng/mL, OPI (Opiates): 100 ng/mL, OXY (Oxycodone): 100 ng/mL, PCP (Phencyclidine): 25 ng/mL, PPX (Propoxyphene): 300 ng/mL, THC (Cannabinoids): 50 ng/mL, TCA (Trycyclic Antidepressants): 300 ng/mL Performed By: #### E RUR, DRUGRPD ####[facility] Gkkiasqhbh18[address] [place] [address]Dr. Abhinav Laguna DRUG CUT HEADER DRUG CLASS TEST SYST EM CUT-OFF CONCENTRATIONS ARE FOLLOWS: Normal [facility] Comment on above: Performed By: #### E RUR, DRUGRPD ####[facility] Fvhyuvxter14[address] [place] [address]Dr. Abhinav Laguna mAMP Positive Abnormal NEGATIVE [facility] Comment on above: Performed By: #### E RUR, DRUGRPD ####[facility] Msluybrxnp[address] [place], [place] [address]Dr. Abhinav Laguna MTD Negative Normal NEGATIVE [facility] Comment on above: Performed By: #### E RUR, DRUGRPD ####[facility] Xrcomfskxd9[address] [place], [place] [address]Dr. Abhinav Laguna OPI Negative Normal NEGATIVE [facility] Comment on above: Performed By: #### E RUR, DRUGRPD ####[facility] Yhisyddojl80[address] [place], [place] [address]Dr. Yigallo Laguna OXY Negative Normal NEGATIVE [facility] Comment on above: Performed By: #### E RUR, DRUGRPD ####[facility] Ojbtmlibnv8826[address] [place], [place] [address]Dr. Abhinav Laguna PCP Negative Normal NEGATIVE [facility] Comment on above: Performed By: #### E RUR, DRUGRPD ####[facility] Bpcsnfgtxk39[address] [place], [place] [address]Dr. Abhinav Laguna PPX Negative Normal NEGATIVE [facility] Comment on above: Performed By: #### E RUR, DRUGRPD ####[facility] Ogewmxqdwm6[address] [place], [place] [address]Dr. Abhinav Laguna TCA Negative Normal NEGATIVE [facility] Comment on above: Performed By: #### E RUR, DRUGRPD ####[facility] Pfrpwdurhi2893[address] [place], [place] [address]Dr. Abhinav Laguna THC Positive Abnormal NEGATIVE [facility] Comment on above: Performed By: #### E RUR, DRUGRPD ####[facility] Vwudjxaikp[address] [place], [place] [address]Dr. Abhinav Laguna ER URINE PROFILEon 3 Bilirubin Ql (U) Negative Normal NEGATIVE [facility] Comment on above: Performed By: #### Lon BRODY DRUGRPD ####[facility] Ooudnvkfhr7[address] [place], [place] [address]Dr. Abhinav aLguna Clarity (U) CLEAR Normal CLEAR [facility] Comment on above: Performed By: #### Lon BRODY DRUGRPD ####[facility] Njhltzbwor[address] [place], [place] [address]Dr. Abhinav Laguna Color (U) LT. YELLOW Normal YELLOW [facility] Comment on above: Performed By: #### Lon BRODY DRUGRPD ####[facility] Wulcfcdedi06[address] [place], [place] [address]Dr. Abhinav Laguna ERUAHD A micrscopic examina tion will be performed if indicated. Normal [facility] Comment on above: Performed By: #### Lon BRODY DRUGRPD ####[facility] Hqptitufzq4[address] [place], [place] [address]Dr. Abhinav Laguna Glucose Ql (U) >1000 Abnormal NEGATIVE [facility] Comment on above: Performed By: #### Lon BRODY DRUGRPD ####[facility] Qmvbcxxich40[address] [place], [place] [address]Dr. Abhinav Laguna Hemoglobin Ql (U) Negative Normal NEGATIVE [facility] Comment on above: Performed By: #### Lon BRODY DRUGRPD ####[facility] Qyqhsskqaj59[address] [place], [place] [address]Dr. Abhinav Laguna Ketones Ql (U) Negative Normal NEGATIVE [facility] Comment on above: Performed By: #### Lon RUDale DRUGRPD ####[facility] Gfdbnnvqqq[address] [place], [place] [address]Dr. Abhinav Laguna LEUKOCYTES Negative Normal NEGATIVE [facility] Comment on above: Performed By: #### Lon BRODY DRUGRPD ####[facility] Kcwevwhqpu4669[address] [place], [place] [address]Dr. Abhinav Laguna Nitrite Ql (U) Negative Normal NEGATIVE [facility] Comment on above: Performed By: #### Lon BRODY DRUGRPD ####[facility] Qwckwzjhvt4224 [place] [id number]. Mirandagallo Jase pH (U) 6.0 [pH] Normal 5-9 [facility] Comment on above: Performed By: #### Lon BRODY DRUGRPD ####[facility] Cjaflydqsb0622 [place] [address]Dr. Abhinav Laguna SPEC GRAVITY <=1.005 Abnormal 1.005-<=1.[address] [place] [address] Comment on above: Performed By: #### Lon BORDY DRUGRPD ####[facility] Cqovwazmcd3[address] [place], [place] [address]Dr. Abhinav Laguna UA PROTEIN Negative Normal NEGATIVE/ TRACE [facility] Comment on above: Performed By: #### Lon BRODY DRUGRPD ####[facility] Pesxyspldr8875[address] [place], [place] [address]Dr. Abhinav Laguna UR MICRO IND NOT INDICATED Normal [facility] Comment on above: Performed By: #### Lon BRODY DRUGRPD ####[facility] Edpmxnpxbn8464[address] [place], [place] [address]Dr. Mirandagallo Jase Urobilinogen Qn (U) 0.2 {Marshall'U}/dL Normal 0.2 - 1. 0 [facility] Comment on above: Performed By: #### Lon BRODY DRUGRPD ####[facility] Ikmbtjiztk90[address] [place], [place] [address]Dr. Abhinav Laguna POINT OF CARE GLUCOSEon -2 Glucose [Mass/Vol] 162 mg/dL Critically high 74-106 [facility] Comment on above: Performed By: #### P OCGLUC ####[facility] Zhqubpbjtq[address] [place], [place] [address]Dr. Abhinav Laguna Glucose [Mass/Vol] 303 mg/dL Critically high 74-106 [facility] Comment on above: Performed By: #### P OCGLUC ####[facility] Ijopindhtn7[address] [place], [place] [address]Dr. Abhinav Laguna Glucose [Mass/Vol] 404 mg/dL Critically high 74-106 [facility] Comment on above: Performed By: #### P OCGLUC ####[facility] Wkhgcksfjn0071[address] [place], [place] [address]Dr. Abhinav Laguna PROF 14(COMP METB)on 023 Albumin [Mass/Vol] 3.3 g/dL Critically low 3.4-5.0 Th e [facility] Comment on above: Performed By: #### C MP ####[facility] Rwzpzjensn[address] [place], [place] [address]Dr. Abhinav Laguna Albumin/Globulin [Mass ratio] 0.8 {ratio} Normal [facility] Comment on above: Performed By: #### C MP ####[facility] Axusyioshr217[address] [place], [place] [address]Dr. Abhinav Laguna ALP [Catalytic activity/Vol] 290 U/L Critically high 46-116 [facility] Comment on above: Performed By: #### C MP ####[facility] Fcsgkbvmgg446[address] [place], [place] [address]Dr. Abhinav Laguna ALT [Catalytic activity/Vol] 36 U/L Normal 16-63 [facility] Comment on above: Performed By: #### C MP ####[facility] Gatttpoada0[address] [place], [place] [address]Dr. Abhinav Laguna Anion gap [Moles/Vol] 9.1 mmol/L Normal [facility] Comment on above: Performed By: #### C MP ####[facility] Ojmbdyxjhk8918[address] [place], [place] [address]Dr. Abhinav Laguna AST [Catalytic activity/Vol] 16 U/L Normal 15-37 [facility] Comment on above: Performed By: #### C MP ####[facility] Bxytddjlzf419[address] [place], [place] [address]Dr. Abhinav Laguna Bilirubin [Mass/Vol] 0.5 mg/dL Normal 0.2-1.0 [facility] Comment on above: Performed By: #### C MP ####[facility] Fscyngroxx9549[address] [place], [place] [address]Dr. Abhinav Laguna Calcium [Mass/Vol] 10.2 mg/dL Critically high 8.5-10.1 [facility] Comment on above: Performed By: #### C MP ####[facility] Jnkbrgikgy45[address] [place] [address]Dr. Abhinav Laguna Chloride [Moles/Vol] 94 mmol/L Critically low 98-107 [facility] Comment on above: Performed By: #### C MP ####[facility] Jhxkyuuctr6574 [place] [address]Dr. Abhinav Laguna CO2 [Moles/Vol] 29.3 mmol/L Normal 21.0-32.0 [facility] Comment on above: Performed By: #### C MP ####[facility] Ldyksdxwjt[address] [place], [place] [address]Dr. Mirandagallo Jase Creatinine [Mass/Vol] 0.91 mg/dL Normal 0.70-1.30 [facility] Comment on above: Performed By: #### C MP ####[facility] Zbchrcwwkp1716[address] [place], [place] [address]Dr. Abhinav Jase EGFR-AF MAURITANIAN >60 Normal >=60 [facility] Comment on above: Performed By: #### C MP ####[facility] Bohhtuvyyp[address] [place], [place] [address]Dr. Mirandagallo Jase EGFR-NON AF MAURITANIAN >60 Normal >=60 [facility] Comment on above: Performed By: #### C MP ####[facility] Buuhtcmwnm8[address] [place], [place] [address]Dr. Abhinav Laguna Globulin (S) [Mass/Vol] 4.3 g/dL Normal [facility] Comment on above: Performed By: #### C MP ####[facility] Wjmcibtjzx30[address] [place], [place] [address]Dr. Abhinav Laguna Glucose [Mass/Vol] 562 mg/dL Critically high 74-106 [facility] Comment on above: Performed By: #### C MP ####[facility] Uayunzmqyy9354[address] [place], [place] [address]Dr. Abhinav Laguna Potassium [Moles/Vol] 4.4 mmol/L Normal 3.5-5.1 [facility] Comment on above: Performed By: #### C MP ####[facility] [address]az[address]azloxu4[address] [place] [address]Dr. Abhinav Laguna Protein [Mass/Vol] 7.6 g/dL Normal 6.4-8.2 [facility] Comment on above: Performed By: #### C MP ####[facility] Advyjemfri58[address] [place] [address]Dr. Abhinav Laguna Sodium [Moles/Vol] 128 mmol/L Critically low 136-145 Th [facility] Comment on above: Performed By: #### C MP ####[facility] Zvbscrmbru2959 [place] [address]Dr. Abhinav Laguna Urea nitrogen [Mass/Vol] 21.0 mg/dL Critically high 7.0-18.0 [facility] Comment on above: Performed By: #### C MP ####[facility] J[address]zqpbqj[address] [place], [place] [address]Dr. Abhinav Laguna Urea nitrogen/Creatinine [Mass ratio] 23.1 mg/mg Normal [facility] Comment on above: Performed By: #### C MP ####[facility] Zuwqkcqzga45[address] [place], [place] [address]Dr. Abhinav Laguna XR CHEST 1 Von 11-09-2022 XR CHEST 1 V Normal [facility] ACETAMINOPHENon 10-23-2022 Acetaminophen [Mass/Vol] ug/mL Critically low 10.0-30.0 [facility] Comment on above: Performed By: #### T SH, CMP, SALYC, HSTROPN, ETH, ACET ####[facility] W[address]nsuejey[address] [place], [place] [address]Dr. Abhinav Laguna ACETONE SERUMon 10-23-2022 ACETONE Negative Normal NEGATIVE [facility] Comment on above: Performed By: #### A CETON ####[facility] Y[address]htfcdy[address] [place], [place] [address]Dr. Abhinav Laguna AMMONIAon 10-23-2022 Ammonia (P) [Moles/Vol] 21 umol/L Normal 11-32 [facility] Comment on above: Performed By: #### A MM ####[facility] Omirflgrvw[address] [place] [id number]. Abhinav Jase CBC AUTO DIFFon 10-23-2022 BASO # 0.1 103/ul Normal 0.0-0.1 [facility] Comment on above: Performed By: #### C BC ####[facility] Ytdputeaby19[address] [place] [id number]. Abhinav Laguna Basophils/100 WBC (Bld) 0.5 % Normal 0.2-2.0 [facility] Comment on above: Performed By: #### C BC ####[facility] Bhtcpzhizt[address] [place], [place] [address]Dr. Abhinav Laguna EO # 0.3 103/ul Normal 0.0-0.7 [facility] Comment on above: Performed By: #### C BC ####[facility] Xgpecttidj[address] [place], [place] [address]Dr. Abhinav Laguna Eosinophils/100 WBC (Bld) 3.1 % Normal 0.9-7.0 [facility] Comment on above: Performed By: #### C BC ####[facility] Bhuhqyocjg[address] [place], [place] [address]Dr. Abhinav Laguna Erythrocyte distribution width (RBC) [Ratio] 12.6 % Normal 11.0-15.0 [facility] Comment on above: Performed By: #### C BC ####[facility] Ielcffnaew[address] [place], [place] [address]Dr. Abhinav Laguna Hematocrit (Bld) [Volume fraction] 42.9 % Normal 42.0-54.0 [facility] Comment on above: Performed By: #### C BC ####[facility] Pulmcpcvnc[address] [place], [place] [address]Dr. Abhinav Lgauna Hemoglobin (Bld) [Mass/Vol] 15.9 g/dL Normal 14.0-18.0 [facility] Comment on above: Performed By: #### C BC ####[facility] Nubwlwgdac[address] [place], [place] [address]Dr. Abhinav Laguna IG # 0.05 10e3/ul Critically high 0.00-0.03 [facility] Comment on above: Performed By: #### C BC ####[facility] Likrxrdyhy[address] [place] [address]Dr. Mirandagallo Laguna IG % 0.5 % Normal 0.0-0.5 [facility] Comment on above: Performed By: #### C BC ####[facility] Zrddtepelo[address] [place] [address]Dr. Mirandagallo Laguna LYMPH # 2.3 103/ul Normal 1.2-3.8 [facility] Comment on above: Performed By: #### C BC ####[facility] Xrpzpahedu[address] [place], [place] [address]Dr. Mirandagallo Laguna Lymphocytes/100 WBC (Bld) 23.1 % Normal 20.5-60.0 [facility] Comment on above: Performed By: #### C BC ####[facility] Qrinnfswqn[address] [place], [place] [address]Dr. Abhinav Laguna MANUAL DIFF REQ NO Normal [facility] Comment on above: Performed By: #### C BC ####[facility] Fgtsncujyr[address] [place], [place] [address]Dr. Abhinav Jase MCH (RBC) [Entitic mass] 31.3 pg Normal 25.9-34.0 [facility] Comment on above: Performed By: #### C BC ####[facility] Rkgphkhuup[address] [place], [place] [address]Dr. Abhinav Jase MCHC (RBC) [Mass/Vol] 37.1 g/dL Critically high 29.9-35.2 [facility] Comment on above: Performed By: #### C BC ####[facility] Hjaeuarutp[address] [place], [place] [address]Dr. Abhinav Jase MCV (RBC) [Entitic vol] 84.4 fL Normal 80.0-94.0 [facility] Comment on above: Performed By: #### C BC ####[facility] Crcppmfcms[address] [place], [place] [address]Dr. Abhinav Laguna MONO # 0.8 103/ul Normal 0.3-0.8 [facility] Comment on above: Performed By: #### C BC ####[facility] Yvnaxdniky[address] [place], [place] [address]Tg. Abhinav Laguna Monocytes/100 WBC (Bld) 7.8 % Normal 1.7-12.0 [facility] Comment on above: Performed By: #### C BC ####[facility] Ekwljdwlib[address] [place] [id number]. Abhinav Laguna NEUT # 6.4 103/ul Normal 1.4-6.5 [facility] Comment on above: Performed By: #### C BC ####[facility] [address]owhforue[address] [place] [id number]. Abhinav Laguna Neutrophils/100 WBC (Bld) 65.0 % Normal 43.0-75.0 [facility] Comment on above: Performed By: #### C BC ####[facility] Smosjzdtan99[address] [place] [id number]. Abhinav Laguna Platelet mean volume (Bld) [Entitic vol] 11.2 fL Normal 9.5-13.5 [facility] Comment on above: Performed By: #### C BC ####[facility] Ustfbfbzws8[address] [place] [id number]. Abhinav Laguna PLT 319 103/ul Normal 150-450 [facility] Comment on above: Performed By: #### C BC ####[facility] Htqwkbzrls[address] [place] [id number]. Abhinav Laguna RBC 5.08 106/ul Normal 4.70-6.10 [facility] Comment on above: Performed By: #### C BC ####[facility] Xgamhvetij26[address] [place] [id number]. Abhinav Laguna WBC 9.9 103/ul Normal 4.0-11.0 [facility] Comment on above: Performed By: #### C BC ####[facility] Ghmazbnqhl[address] [place] [id number]. Abhinva Laguna CT STROKE HEAD WOon 10-24-19 CT STROKE HEAD WO Normal [facility] CULTURE BLOODon 10-23-2022 Microscopic examination of blood, culture Culture Observations: NO GROWTH AT 5 DAYS. Normal [facility] Comment on above: Performed By: #### B LDCX2 ####[facility] Fzywdrorga46[address] [place] [id number]. Abhinav Laguna Microscopic examination of blood, culture Culture Observations: NO GROWTH AT 5 DAYS. Normal [facility] Comment on above: Performed By: #### B LDCX1 ####[facility] Vqjdknjoiw[address] [place] [id number]. Abhinav Laguna Covid-19 PCR (CVDTB)on SARS-CoV-2 (COVID-19) RNA EVERT+probe Ql (Unsp spec) Not detected Normal NOT DETECTED [facility] Comment on above: Result Comment: When diagnostic [...] for this test is supported by the Station Installer And Repairer of Health and Human Service's declaration that [...] be used). Performed By: #### C VDTBH ####[facility] [address] [place], [place] [address]Rg. Abhinav Laguna DRUG SCREEN RAPID (URINE)on 10-23-2022 AMP Positive Abnormal NEGATIVE [facility] Comment on above: Performed By: #### D CATALINA CAMARAR ####[facility] Egssjdggzn4254 [place], [place] [address]Bm. Abhinav Laguna BAR Negative Normal NEGATIVE [facility] Comment on above: Performed By: #### D HOA ERUR ####[facility] Yah[address]tsxec[address] [place] [phone]. Abhinav Laguna BUP Negative Normal NEGATIVE [facility] Comment on above: Performed By: #### CATALINA NEWTONR ####[facility] Shuthnbknq[address] [place], [place] [address]Dr. Abhinav Laguna BZO Negative Normal NEGATIVE [facility] Comment on above: Performed By: #### Marco Antonio CAMARA, ERUR ####[facility] [address]qgqdtg[address] [place], [place] [address]Dr. Abhinav Laguna ISELA Positive Abnormal NEGATIVE [facility] Comment on above: Performed By: #### CATALINA NEWTONR ####[facility] Jrmkeoucdl[address] [place], [place] [address]Dr. Abhinav Laguna CUT-OFFS SEE BELOW Normal [facility] Comment on above: Result Comment: AMP (Amphetamine): 500ng/mL, BAR (Barbituates): 200 ng/mL, BZO (Benzodiazepines): 150 ng/mL, BUP (Buprenorphine): 10 ng/mL, ISELA (Cocaine): 150 ng/mL, mAMP (Methamphetamine): 500 ng/mL, MTD (Methadone): 200 ng/mL, OPI (Opiates): 100 ng/mL, OXY (Oxycodone): 100 ng/mL, PCP (Phencyclidine): 25 ng/mL, PPX (Propoxyphene): 300 ng/mL, THC (Cannabinoids): 50 ng/mL, TCA (Trycyclic Antidepressants): 300 ng/mL Performed By: #### CATALINA NEWTONR ####[facility] Zedjcurjhx[address] [place], [place] [address]Dr. Abhinav Laguna DRUG CUT HEADER DRUG CLASS TEST SYST EM CUT-OFF CONCENTRATIONS ARE FOLLOWS: Normal [facility] Comment on above: Performed By: #### CATALINA NEWTONR ####[facility] Ufjurbkobn[address] [place], [place] [address]Dr. Abhinav Laguna mAMP Positive Abnormal NEGATIVE [facility] Comment on above: Performed By: #### CATALINA NEWTONR ####[facility] [address] [place], [place] [id number]. Abhinav Laguna MTD Negative Normal NEGATIVE [facility] Comment on above: Performed By: #### D HOA, ERUR ####[facility] [address]dx[address] [place] [address]Dr. Mirandagallo Laguna OPI Negative Normal NEGATIVE [facility] Comment on above: Performed By: #### D HOA, ERUR ####[facility] Lorooeidnq[address] [place] [address]Dr. Abhinav Laguna OXY Negative Normal NEGATIVE [facility] Comment on above: Performed By: #### Marco Antonio CAMARA, ERUR ####[facility] Nlcjjbgasw[address] [place] [address]Dr. Abhinav Laguna PCP Negative Normal NEGATIVE [facility] Comment on above: Performed By: #### Marco Antonio CAMARA, ERUR ####[facility] Vuuvsnrgss[address] [place] [address]Dr. Abhinav Laguna PPX Negative Normal NEGATIVE [facility] Comment on above: Performed By: #### Marco Antonio CAMARA, ERUR ####[facility] Znebrzplwa[address] [place] [address]Dr. Abhinav Laguna TCA Negative Normal NEGATIVE [facility] Comment on above: Performed By: #### Marco Antonio CAMARA, ERUR ####[facility] Lwqgfxmxbw[address] [place] [address]Dr. Abhinav Laguna THC Positive Abnormal NEGATIVE [facility] Comment on above: Performed By: #### Marco Antonio CAMARA, ERUR ####[facility] Bhhelbmqpi[address] [place] [address]Dr. Abhinav Laguna ER URINE PROFILEon 3 Bilirubin Ql (U) Negative Normal NEGATIVE [facility] Comment on above: Performed By: #### Marco Antonio CAMARA, ERUR ####[facility] Xhfeyritwv34[address] [place] [address]Dr. Abhinav Laguna Clarity (U) CLEAR Normal CLEAR [facility] Comment on above: Performed By: #### Marco Antonio CAMARA, ERUR ####[facility] Snahbsfwbg[address] [place] [address]Dr. Abhinav Laguna Color (U) LT. YELLOW Normal YELLOW [facility] Comment on above: Performed By: #### Marco Antonio CAMARA, ERUR ####[facility] Qxsvokzlvw3452 [place] [address]Dr. Abhinav ARANDA A micrscopic examina tion will be performed if indicated. Normal [facility] Comment on above: Performed By: #### Marco Antonio CAMARA, ERUR ####[facility] Tqnygjnivf[address] [place] [address]Dr. Abhinav Laguna Glucose Ql (U) >1000 Abnormal NEGATIVE [facility] Comment on above: Performed By: #### Marco Antonio CAMARA, ERUR ####[facility] R[address]mebdwm[address] [place], [place] [address]Dr. Abhinav Laguna Hemoglobin Ql (U) Negative Normal NEGATIVE [facility] Comment on above: Performed By: #### Marco Antonio CAMARA, ERUR ####[facility] Egkwtgygny[address] [place], [place] [address]Dr. Abhinav Laguna Ketones Ql (U) Negative Normal NEGATIVE [facility] Comment on above: Performed By: #### Marco Antonio CAMARA, ERUR ####[facility] Wsziilekep[address] [place], [place] [address]Dr. Abhinav Laguna LEUKOCYTES Negative Normal NEGATIVE [facility] Comment on above: Performed By: #### Marco Antonio CAMARA, ERUR ####[facility] Kznlrnudno[address] [place], [place] [address]Dr. Abhinav Laguna Nitrite Ql (U) Negative Normal NEGATIVE [facility] Comment on above: Performed By: #### Marco Antonio CAMARA, ERUR ####[facility] Drcqvkdkxq2719 [place] [address]Dr. Abhinav Laguna pH (U) 6.5 [pH] Normal 5-9 [facility] Comment on above: Performed By: #### Marco Antonio CAMARA, ERUR ####[facility] Fpqafabpjr[address] [place] [address]Dr. Abhinav Laguna SPEC GRAVITY <=1.005 Abnormal 1.005-<=1.0 25 [facility] Comment on above: Performed By: #### D HOA, ERUR ####[facility] Ojmuikzejm[address] [place] [address]Dr. Abhinav Laguna UA PROTEIN Negative Normal NEGATIVE/ TRACE [facility] Comment on above: Performed By: #### D HOA, ERUR ####[facility] Uxfgbroouc[address] [place] [address]Dr. Abhinav Laguna UR MICRO IND NOT INDICATED Normal [facility] Comment on above: Performed By: #### D HOA, ERUR ####[facility] Yepsdctkmq39[address] [place] [address]Dr. Abhinav Laguna Urobilinogen Qn (U) 0.2 {Marshall'U}/dL Normal 0.2 - 1. 0 [facility] Comment on above: Performed By: #### D HOA, ERUR ####[facility] Que[address]lddhv[address] [place] [address]Dr. Abhinav Laguna ETHANOL (BLD ALC)on 10-24-19 23 ALC NOTE NOTE: 80 mg/dl is th e legal limit for a blood alcohol level Normal [facility] Comment on above: Performed By: #### T PAM, CMP, SALYC, HSTROPN, ETH, ACET ####[facility] Nrxaszgixk[address] [place] [address]Dr. Abhinav Laguna Ethanol [Mass/Vol] mg/dL Normal [facility] Comment on above: Performed By: #### T PAM, CMP, SALYC, HSTROPN, ETH, ACET ####[facility] Uwaolltutu[address] [place] [address]Dr. Abhinav Laguna LACTATE/LACTIC ACIDon 2022 Lactate [Moles/Vol] 2.8 mmol/L Critically high 0.4-2.0 [facility] Comment on above: Performed By: #### L ACT ####[facility] [address]ymfmrgqgc[address] [place], [place] [address]Dr. Abhinav Laguna POINT OF CARE GLUCOSEon 03-0 POCGLUC >600 Critically high 74-106 [facility] Comment on above: Result Comment: Resu lt Not Confirmed Performed By: #### P OCGLUC ####[facility] [address]ziirh[address] [place] [address]Dr. Abhinav Laguna PROF 14(COMP METB)on 023 Albumin [Mass/Vol] 3.3 g/dL Critically low 3.4-5.0 Th e [facility] Comment on above: Performed By: #### T SH, CMP, SALYC, HSTROPN, ETH, ACET ####[facility] Opwpffaxia8371 [place] [address]Dr. Abhinav Laguna Albumin/Globulin [Mass ratio] 0.8 {ratio} Normal [facility] Comment on above: Performed By: #### T SH, CMP, SALYC, HSTROPN, ETH, ACET ####[facility] Yelorsnndj[address] [place] [address]Dr. Abhinav Laguna ALP [Catalytic activity/Vol] 529 U/L Critically high 46-116 [facility] Comment on above: Performed By: #### T SH, CMP, SALYC, HSTROPN, ETH, ACET ####[facility] Jyailouzii[address] [place] [address]Dr. Abhinav Laguna ALT [Catalytic activity/Vol] 35 U/L Normal 16-63 [facility] Comment on above: Performed By: #### T SH, CMP, SALYC, HSTROPN, ETH, ACET ####[facility] Espfotqhnt6[address] [place] [address]Dr. Abhinav Laguna Anion gap [Moles/Vol] 5.9 mmol/L Normal [facility] Comment on above: Performed By: #### T SH, CMP, SALYC, HSTROPN, ETH, ACET ####[facility] Vfahwtegei[address] [place] [address]Dr. Abhinav Laguna AST [Catalytic activity/Vol] 12 U/L Critically low 15-37 [facility] Comment on above: Performed By: #### T SH, CMP, SALYC, HSTROPN, ETH, ACET ####[facility] Iprmgbjqym[address] [place] [address]Dr. Abhinav Laguna Bilirubin [Mass/Vol] 0.3 mg/dL Normal 0.2-1.0 [facility] Comment on above: Performed By: #### T SH, CMP, SALYC, HSTROPN, ETH, ACET ####[facility] [address]jssylhupr[address] [place] [address]Dr. Abhinav Laguna Calcium [Mass/Vol] 10.6 mg/dL Critically high 8.5-10.1 [facility] Comment on above: Performed By: #### T SH, CMP, SALYC, HSTROPN, ETH, ACET ####[facility] Xqgweutrql4075 [place] [address]Dr. Abhinav Laguna Chloride [Moles/Vol] 93 mmol/L Critically low 98-107 [facility] Comment on above: Performed By: #### T SH, CMP, SALYC, HSTROPN, ETH, ACET ####[facility] Bdrllhdwux[address] [place] [address]Dr. Abhinav Laguna CO2 [Moles/Vol] 31.5 mmol/L Normal 21.0-32.0 [facility] Comment on above: Performed By: #### T SH, CMP, SALYC, HSTROPN, ETH, ACET ####[facility] [address]tqrblhpsd14[address] [place] [address]Dr. Abhinav Laguna Creatinine [Mass/Vol] 1.03 mg/dL Normal 0.70-1.30 [facility] Comment on above: Performed By: #### T SH, CMP, SALYC, HSTROPN, ETH, ACET ####[facility] Kushfyymfn[address] [place] [address]Dr. Abhinav Laguna EGFR-AF MAURITANIAN >60 Normal >=60 [facility] Comment on above: Performed By: #### T SH, CMP, SALYC, HSTROPN, ETH, ACET ####[facility] Qbmejfmzmn39[address] [place] [address]Dr. Abhinav Laguna EGFR-NON AF MAURITANIAN >60 Normal >=60 [facility] Comment on above: Performed By: #### T SH, CMP, SALYC, HSTROPN, ETH, ACET ####[facility] Szcsinkwvy[address] [place] [address]Dr. Abhinav Laguna Globulin (S) [Mass/Vol] 3.9 g/dL Normal [facility] Comment on above: Performed By: #### T SH, CMP, SALYC, HSTROPN, ETH, ACET ####[facility] [address]mopiypjcc[address] [place] [address]Dr. Abhinav Laguna Glucose [Mass/Vol] 738 mg/dL Critically high 74-106 [facility] Comment on above: Performed By: #### T SH, CMP, SALYC, HSTROPN, ETH, ACET ####[facility] Gehzyzpiir[address] [place] [address]Dr. Abhinav Laguna Potassium [Moles/Vol] 4.4 mmol/L Normal 3.5-5.1 [facility] Comment on above: Performed By: #### T SH, CMP, SALYC, HSTROPN, ETH, ACET ####[facility] Bmtgxuyovq[address] [place] [address]Dr. Abhinav Laguna Protein [Mass/Vol] 7.2 g/dL Normal 6.4-8.2 [facility] Comment on above: Performed By: #### T SH, CMP, SALYC, HSTROPN, ETH, ACET ####[facility] Rcaumunagg[address] [place] [address]Dr. Abhinav Laguna Sodium [Moles/Vol] 126 mmol/L Critically low 136-145 Th [facility] Comment on above: Performed By: #### T SH, CMP, SALYC, HSTROPN, ETH, ACET ####[facility] Kwvmihmafd8613 [place] [address]Dr. Abhinav Laguna Urea nitrogen [Mass/Vol] 21.0 mg/dL Critically high 7.0-18.0 [facility] Comment on above: Performed By: #### T SH, CMP, SALYC, HSTROPN, ETH, ACET ####[facility] Ucpfgqtvyb9884 [place] [address]Dr. Abhinav Laguna Urea nitrogen/Creatinine [Mass ratio] 20.4 mg/mg Normal [facility] Comment on above: Performed By: #### T SH, CMP, SALYC, HSTROPN, ETH, ACET ####[facility] Okqvovuskr[address] [place] [address]Dr. Abhinav Laguna PROTIMEon 10-23-2022 INR Coag (PPP) [Relative time] 0.95 {INR} Normal [facility] Comment on above: Performed By: #### P T, PTT ####[facility] Fnnkbbqnvs6224 [place] [address]Dr. Abhinav Laguna INR GUIDELINES SEE BELOW Normal [facility] Comment on above: Result Comment: FABRICE RED INR: 2.0 - 3.0 CONDITIONS NOT LISTED BELOW 2.5 - 3.5 FOR PROSTHETIC HEART VALVE REPLACEMENT 2.5 - 3.5 RECURRENT THROMBOSIS Performed By: #### P T, PTT ####[facility] [address]af[address]khbnb[address] [place], [place] [address]Dr. Abhinav Laguna PT Coag (PPP) [Time] 10.1 s Normal 9.0-11.6 [facility] Comment on above: Performed By: #### P T, PTT ####[facility] Xpyrlgzeyj65[address] [place] [address]Dr. Mirandagallo Laguna PTTon 10-23-2022 aPTT Coag (Bld) [Time] 27.7 s Normal 22.3-36.2 Th [facility] Comment on above: Performed By: #### P T, PTT ####[facility] [address]ztycbtsp[address] [place], [place] [address]Dr. Abhinav Laguna SALICYLATEon 10-23-2022 SALICYLATE <2.8 Normal <=19.9 [facility] Comment on above: Performed By: #### T SH, CMP, SALYC, HSTROPN, ETH, ACET ####[facility] [address]ffofzsvi[address] [place], [place] [address]Dr. Abhinav Jase TROPONIN, HIGH SENSITIVITYon 10-23-2022 HSTROP 5.9 pg/mL Normal 4.0-76.1 [facility] Comment on above: Result Comment: CUT- OFF POINTS HAVE BEEN ESTABLISHED BASED ON THE FOURTH UNIVERSAL DEFINITIONS OF MYOCARDIALINFARCTION. THE UPPER REFERENCE LIMIT (URL) OF TROPONIN, DEFINED THE 99TH PERCENTILE OFcTnI DISTRIBUTION IN A REFERENCE POPULATION, HAS BEEN CONFIRMED THE DECISION THRESHOLDFOR VA DIAGNOSIS. Performed By: #### T SH, CMP, SALYC, HSTROPN, ETH, ACET ####[facility] Jimbmanuug[address] [place] [address]Dr. Abhinav Laguna TSHon 10-23-2022 TSH 1.612 uIU/mL Normal 0.358-3.740 [facility] Comment on above: Performed By: #### T SH, CMP, SALYC, HSTROPN, ETH, ACET ####[facility] Foezddovjz6[address] [place] [address]Dr. Abhinav Laguna XR CHEST 1 Von 10-23-2022 XR CHEST 1 V Normal [facility] CBC AUTO DIFFon 08-22-2022 BASO # 0.0 103/ul Normal 0.0-0.1 [facility] Comment on above: Performed By: #### C BC ####[facility] Jgjaqnwleu[address] [place] [address]Dr. Abhinav Laguna Basophils/100 WBC (Bld) 0.4 % Normal 0.2-2.0 [facility] Comment on above: Performed By: #### C BC ####[facility] Qspwtltxdw7983 [place] [address]Dr. Abhinav Laguna EO # 0.2 103/ul Normal 0.0-0.7 [facility] Comment on above: Performed By: #### C BC ####[facility] Hiliazmedn4[address] [place] [address]Dr. Abhinav Laguna Eosinophils/100 WBC (Bld) 2.8 % Normal 0.9-7.0 [facility] Comment on above: Performed By: #### C BC ####[facility] Utwqyeqbgl[address] [place] [address]Dr. Abhinav Laguna Erythrocyte distribution width (RBC) [Ratio] 12.8 % Normal 11.0-15.0 [facility] Comment on above: Performed By: #### C BC ####[facility] Zizgdipcym[address] [place] [address]Dr. Abhinav Laguna Hematocrit (Bld) [Volume fraction] 37.2 % Critically low 42.0-54.0 [facility] Comment on above: Performed By: #### C BC ####[facility] Hhhkccdkbw[address] [place] [address]Dr. Abhinav Laguna Hemoglobin (Bld) [Mass/Vol] 13.3 g/dL Critically low 14.0-18.0 [facility] Comment on above: Performed By: #### C BC ####[facility] Bcqmiqerfo[address] [place] [address]Dr. Mirandagallo Laguna IG # 0.03 10e3/ul Normal 0.00-0.03 [facility] Comment on above: Performed By: #### C BC ####[facility] Yoqhuxoiya[address] [place], [place] [address]Dr. Abhinav Laguna IG % 0.4 % Normal 0.0-0.5 [facility] Comment on above: Performed By: #### C BC ####[facility] Kxvxpaymzb50[address] [place] [address]Dr. Mirandagallo Laguna LYMPH # 1.9 103/ul Normal 1.2-3.8 [facility] Comment on above: Performed By: #### C BC ####[facility] Dfixjsnsgh7512 [place] [address]DrNohemi Mirandagallo Laguna Lymphocytes/100 WBC (Bld) 23.8 % Normal 20.5-60.0 [facility] Comment on above: Performed By: #### C BC ####[facility] Lhnsaizzdz16[address] [place] [address]DrNohemi Mirandagallo Laguna MANUAL DIFF REQ NO Normal [facility] Comment on above: Performed By: #### C BC ####[facility] Jznlachyix[address] [place], [place] [address]DrNohemi Abhinav Jase MCH (RBC) [Entitic mass] 30.2 pg Normal 25.9-34.0 [facility] Comment on above: Performed By: #### C BC ####[facility] Umpyjvgsiy[address] [place], [place] [address]Dr. Abhinav Jase MCHC (RBC) [Mass/Vol] 35.8 g/dL Critically high 29.9-35.2 [facility] Comment on above: Performed By: #### C BC ####[facility] Zveweyywre[address] [place] [id number]. Abhinav Jase MCV (RBC) [Entitic vol] 84.5 fL Normal 80.0-94.0 [facility] Comment on above: Performed By: #### C BC ####[facility] Uusytnkeyp5[address] [place] [id number]. Mirandagallo Jase MONO # 0.7 103/ul Normal 0.3-0.8 [facility] Comment on above: Performed By: #### C BC ####[facility] Gpqkngfpai1490 [place] [address]Dr. Abhinav Laguna Monocytes/100 WBC (Bld) 8.0 % Normal 1.7-12.0 [facility] Comment on above: Performed By: #### C BC ####[facility] Wrpfxujgkm85[address] [place], [place] [address]Dr. Mirandagallo Jase NEUT # 5.2 103/ul Normal 1.4-6.5 [facility] Comment on above: Performed By: #### C BC ####[facility] Xjezcznaxv1156 [place] [address]Dr. Abhinav Laguna Neutrophils/100 WBC (Bld) 64.6 % Normal 43.0-75.0 [facility] Comment on above: Performed By: #### C BC ####[facility] Vmsgbjpvlv4845 [place] [address]Dr. Abhinav Jase Platelet mean volume (Bld) [Entitic vol] 11.6 fL Normal 9.5-13.5 [facility] Comment on above: Performed By: #### C BC ####[facility] Nuspmwymen44[address] [place] [address]Dr. Abhinav Laguna PLT 175 103/ul Normal 150-450 [facility] Comment on above: Performed By: #### C BC ####[facility] Sjkcpdgkie8237 [place] [address]Dr. Abhinav Laguna RBC 4.40 106/ul Critically low 4.70-6.10 [facility] Comment on above: Performed By: #### C BC ####[facility] Gsalorvdcj8[address] [place] [address]Dr. Abhinav Laguna WBC 8.1 103/ul Normal 4.0-11.0 [facility] Comment on above: Performed By: #### C BC ####[facility] Ynyjkvfwfb0743 [place] [address]Dr. Abhinav Laguna POINT OF CARE GLUCOSEon Glucose [Mass/Vol] 258 mg/dL Critically high 74-106 [facility] Comment on above: Performed By: #### P OCGLUC ####[facility] Ypvasdnkrv[address] [place], [place] [address]Dr. Abhinav Laguna Glucose [Mass/Vol] 177 mg/dL Critically high 74-106 [facility] Comment on above: Performed By: #### P OCGLUC ####[facility] Giwstrhood26[address] [place], [place] [address]Dr. Abhinav Jase PROF CHEM 8 (BAS METB)on Anion gap [Moles/Vol] 9.3 mmol/L Normal [facility] Comment on above: Performed By: #### B MP ####[facility] Tuosuxujcb9560 [place] [address]Dr. Abhinav Jase Calcium [Mass/Vol] 8.6 mg/dL Normal 8.5-10.1 [facility] Comment on above: Performed By: #### B MP ####[facility] Hvpkiieljr6506 [place] [address]Dr. Abhinav Jase Chloride [Moles/Vol] 107 mmol/L Normal 98-107 [facility] Comment on above: Performed By: #### B MP ####[facility] Wibprvmlfb0482 [place] [address]Dr. Abhinav Laguna CO2 [Moles/Vol] 22.7 mmol/L Normal 21.0-32.0 [facility] Comment on above: Performed By: #### B MP ####[facility] Txtbkqkrlb8737 [place] [address]Dr. Abhinav Laguna Creatinine [Mass/Vol] 0.79 mg/dL Normal 0.70-1.30 [facility] Comment on above: Performed By: #### B MP ####[facility] Xkpllqghff1253 [place] [address]Dr. Abhinav Laguna EGFR-AF MAURITANIAN >60 Normal >=60 [facility] Comment on above: Performed By: #### B MP ####[facility] Jxxtymonnf8[address] [place], [place] [address]Dr. Abhinav Laguna EGFR-NON AF MAURITANIAN >60 Normal >=60 [facility] Comment on above: Performed By: #### B MP ####[facility] Bqxjdtmjxx6[address] [place], [place] [address]Dr. Abhinav Laguna Glucose [Mass/Vol] 159 mg/dL Critically high 74-106 [facility] Comment on above: Performed By: #### B MP ####[facility] Iojyklhtzb7248[address] [place], [place] [address]Dr. Abhinav Laguna Potassium [Moles/Vol] 4.0 mmol/L Normal 3.5-5.1 [facility] Comment on above: Performed By: #### B MP ####[facility] Qnrvwtloch4861[address] [place], [place] [address]Dr. Abhinav Laguna Sodium [Moles/Vol] 135 mmol/L Critically low 136-145 Th [facility] Comment on above: Performed By: #### B MP ####[facility] Fzihnmruqa9714[address] [place], [place] [address]Dr. Abhinav Laguna Urea nitrogen [Mass/Vol] 29.0 mg/dL Critically high 7.0-18.0 [facility] Comment on above: Performed By: #### B MP ####[facility] Euezgnhbfz3238[address] [place], [place] [address]Dr. Abhinav Laguna Urea nitrogen/Creatinine [Mass ratio] 36.7 mg/mg Normal [facility] Comment on above: Performed By: #### B MP ####[facility] Lfeylbedxf[address] [place], [place] [id number]. Abhinav Laguna AMMONIAon 08-21-2022 Ammonia (P) [Moles/Vol] 12 umol/L Normal [facility] Comment on above: Performed By: #### A MM ####[facility] Risartxwka032[address] [place], [place] [address]Dr. Abhinav Laguna BLOOD GASES BTYon 08-21-2022 02 MODE NASAL CANNULA Normal [facility] Comment on above: Performed By: #### A BG ####[facility] Utvsuazvpl89[address] [place], [place] [address]Dr. Abhinav Laguna ALLENS TEST Positive [facility] Comment on above: Performed By: #### A BG ####[facility] Physefrlbi8163[address] [place], [place] [address]Dr. Abhinav Laguna Base excess Calc (Bld) [Moles/Vol] -6.2000 mmol/L Critically low -2.0-2.0 [facility] Comment on above: Performed By: #### A BG ####[facility] Yslcwsgltt7664[address] [place], [place] [address]Dr. Abhinav Laguna BIPAP PRESSURE Normal [facility] Comment on above: Performed By: #### A BG ####[facility] Sycwzjmofb3209[address] [place], [place] [address]Dr. Abhinav Laguna CPAP Normal [facility] Comment on above: Performed By: #### A BG ####[facility] Iynleuoaki5[address] [place], [place] [address]Dr. Abhinav Laguna FIO2 Normal [facility] Comment on above: Performed By: #### A BG ####[facility] Sxaixriyqz8[address] [place], [place] [address]Dr. Abhinav Laguna HCO3 (Bld) [Moles/Vol] 19.9 mmol/L Critically low 22.0-26. 0 [facility] Comment on above: Performed By: #### A BG ####[facility] Ayqgivkjag007[address] [place], [place] [address]Dr. Abhinav Laguna LPM 2 Normal [facility] Comment on above: Performed By: #### A BG ####[facility] Qdfexyuzyc50[address] [place] [address]Dr. Abhinav Laguna MINUTE VOLUME Normal [facility] Comment on above: Performed By: #### A BG ####[facility] Qxorjkoznt2687[address] [place], [place] [address]Dr. Abhinav Laguna Oxygen (Bld) [Partial pressure] 106.0 mm[Hg] Critically high 80.0-100.0 [facility] Comment on above: Performed By: #### A BG ####[facility] Wkrsuiflil7277[address] [place], [place] [address]Dr. Abhinav Laguna Oxygen saturation in Blood 98.3 % Normal 95.0-100.0 [facility] Comment on above: Performed By: #### A BG ####[facility] Vwchdrhbga[address] [place], [place] [address]Dr. Abhinav Laguna PCO2 38.6 mmHg Normal 35.0-45.0 [facility] Comment on above: Performed By: #### A BG ####[facility] Dzftcvnfry407[address] [place], [place] [address]Dr. Abhinav Laguna [facility] Comment on above: Performed By: #### A BG ####[facility] Icopofiyfz5458[address] [place], [place] [address]Dr. Abhinav Laguna pH (Bld) 7.320 [pH] Critically low 7.350-7.450 [facility] Comment on above: Performed By: #### A BG ####[facility] Rzqaqarmos7[address] [place], [place] [address]Dr. Abhinav Laguna PIP Normal [facility] Comment on above: Performed By: #### A BG ####[facility] Kbulnazcur15[address] [place], [place] [address]Dr. Abhinav Laguna PS Normal [facility] Comment on above: Performed By: #### A BG ####[facility] Gueclwvkrl[address] [place], [place] [address]Dr. Abhinav Laguna PUNCTURE SITE RR Normal [facility] Comment on above: Performed By: #### A BG ####[facility] Ejzjdpxwyb26[address] [place], [place] [address]Dr. Abhinav Laguna RATE Normal [facility] Comment on above: Performed By: #### A BG ####[facility] Qjbdlrcmnu7270 [place] [address]Dr. Abhinav Laguna VENT MODE Normal [facility] Comment on above: Performed By: #### A BG ####[facility] Iifhpowzjb8734 [place] [address]Dr. Abhinav Laguna VT Normal [facility] Comment on above: Performed By: #### A BG ####[facility] Wamysennhk4673 [place] [address]Dr. Mirandagallo Laguna BNPon 08-21-2022 Natriuretic peptide B (Bld) [Mass/Vol] 69.0 pg/mL Normal <=900.0 [facility] Comment on above: Performed By: #### B SENIOR ELECTRICAL ESTIMATOR, CMP, TSH, CMADM ####[facility] Yahajputzj3[address] [place] [address]Dr. Abhinav Laguna CARDIAC GILMER ADMITon 023 CK [Catalytic activity/Vol] 91 U/L Normal 39-308 [facility] Comment on above: Performed By: #### B SENIOR ELECTRICAL ESTIMATOR, CMP, TSH, CMADM ####[facility] Eledmcateq1688 [place] [address]Dr. Abhinav Laguna CK.MB [Mass/Vol] 4.08 ng/mL Critically high <=3.60 [facility] Comment on above: Performed By: #### B SENIOR ELECTRICAL ESTIMATOR, CMP, TSH, CMADM ####[facility] Lrsbafqncq7049 [place] [address]Dr. Abhinav Jase HSTROP 10.8 pg/mL Normal 4.0-76.1 [facility] Comment on above: Result Comment: CUT- OFF POINTS HAVE BEEN ESTABLISHED BASED ON THE FOURTH UNIVERSAL DEFINITIONS OF MYOCARDIALINFARCTION. THE UPPER REFERENCE LIMIT (URL) OF TROPONIN, DEFINED THE 99TH PERCENTILE OFcTnI DISTRIBUTION IN A REFERENCE POPULATION, HAS BEEN CONFIRMED THE DECISION THRESHOLDFOR VA DIAGNOSIS. Performed By: #### B SENIOR ELECTRICAL ESTIMATOR, CMP, TSH, CMADM ####[facility] Etjhddimfu1335 [place] [address]Dr. Abhinav Laguna RAINER 342 ng/mL Critically high 16-96 [facility] Comment on above: Performed By: #### B SENIOR ELECTRICAL ESTIMATOR, CMP, TSH, CMADM ####[facility] Pvfcymfwaq2106 [place] [id number]. Abhinav Laguna CBC AUTO DIFFon 08-21-2022 BASO # 0.1 103/ul Normal 0.0-0.1 [facility] Comment on above: Performed By: #### C BC ####[facility] Fhrdkxlnmf[address] [place], [place] [address]Dr. Abhinav Laguna Basophils/100 WBC (Bld) 0.6 % Normal 0.2-2.0 [facility] Comment on above: Performed By: #### C BC ####[facility] Ublqdbftmr14[address] [place], [place] [address]Dr. Abhinav Laguna EO # 0.1 103/ul Normal 0.0-0.7 [facility] Comment on above: Performed By: #### C BC ####[facility] Cvapnybeuk4[address] [place], [place] [address]Dr. Abhinav Laguna Eosinophils/100 WBC (Bld) 1.5 % Normal 0.9-7.0 [facility] Comment on above: Performed By: #### C BC ####[facility] Djpfqmzugg73[address] [place], [place] [address]Dr. Abhinav Laguna Erythrocyte distribution width (RBC) [Ratio] 12.8 % Normal 11.0-15.0 [facility] Comment on above: Performed By: #### C BC ####[facility] Qkchxveitw39[address] [place], [place] [address]Dr. Abhinav Laguna Hematocrit (Bld) [Volume fraction] 42.1 % Normal 42.0-54.0 [facility] Comment on above: Performed By: #### C BC ####[facility] Cpatiukeqn5236[address] [place], [place] [address]Dr. Abhinav Laguna Hemoglobin (Bld) [Mass/Vol] 15.4 g/dL Normal 14.0-18.0 [facility] Comment on above: Performed By: #### C BC ####[facility] Fzjroymmox36[address] [place] [id number]. Abhinav Laguna IG # 0.02 10e3/ul Normal 0.00-0.03 [facility] Comment on above: Performed By: #### C BC ####[facility] Ykeyrbonen9298 [place] [address]Dr. Abhinav Laguna IG % 0.2 % Normal 0.0-0.5 [facility] Comment on above: Performed By: #### C BC ####[facility] Kqvsyuzwaw110[address] [place] [address]Dr. Abhinav Jase LYMPH # 2.5 103/ul Normal 1.2-3.8 [facility] Comment on above: Performed By: #### C BC ####[facility] Nvdbgacbpx0562 [place] [address]Dr. Abhinav Laguna Lymphocytes/100 WBC (Bld) 28.3 % Normal 20.5-60.0 [facility] Comment on above: Performed By: #### C BC ####[facility] Hcqxvnxhyp7524 [place] [address]Dr. Mirandagallo Laguna MANUAL DIFF REQ NO Normal [facility] Comment on above: Performed By: #### C BC ####[facility] Tmkzfemypv0509 [place] [address]Dr. Abhinav Laguna MCH (RBC) [Entitic mass] 30.5 pg Normal 25.9-34.0 [facility] Comment on above: Performed By: #### C BC ####[facility] Birizuduvr5564 [place] [address]Dr. Abhinav Laguna MCHC (RBC) [Mass/Vol] 36.6 g/dL Critically high 29.9-35.2 [facility] Comment on above: Performed By: #### C BC ####[facility] Hmjpcoykro4593 [place] [address]Dr. Abhinav Laguna MCV (RBC) [Entitic vol] 83.4 fL Normal 80.0-94.0 [facility] Comment on above: Performed By: #### C BC ####[facility] Tznmeslvoy3751 [place] [id number]. Abhinav Laguna MONO # 0.7 103/ul Normal 0.3-0.8 [facility] Comment on above: Performed By: #### C BC ####[facility] Oxeuhmpige29[address] [place] [address]Dr. Abhinav Laguna Monocytes/100 WBC (Bld) 7.3 % Normal 1.7-12.0 [facility] Comment on above: Performed By: #### C BC ####[facility] Plhekcdqel6[address] [place], [place] [address]Dr. Abhinav Laguna NEUT # 5.5 103/ul Normal 1.4-6.5 [facility] Comment on above: Performed By: #### C BC ####[facility] Jsbfmfqtxt3[address] [place], [place] [address]Dr. Abhinav Laguna Neutrophils/100 WBC (Bld) 62.1 % Normal 43.0-75.0 [facility] Comment on above: Performed By: #### C BC ####[facility] Voaemxdinc8[address] [place], [place] [address]Dr. Abhinav Laguna Platelet mean volume (Bld) [Entitic vol] 11.6 fL Normal 9.5-13.5 [facility] Comment on above: Performed By: #### C BC ####[facility] Uryhyrcjbi4[address] [place], [place] [address]Dr. Abhinav Laguna PLT 195 103/ul Normal 150-450 [facility] Comment on above: Performed By: #### C BC ####[facility] Xkmmtriwly[address] [place], [place] [address]Dr. Abhinav Laguna RBC 5.05 106/ul Normal 4.70-6.10 [facility] Comment on above: Performed By: #### C BC ####[facility] Ftkqldxqnp[address] [place], [place] [address]Dr. Abhinav Laguna WBC 8.9 103/ul Normal 4.0-11.0 [facility] Comment on above: Performed By: #### C BC ####[facility] Zvftkwebhi36[address] [place] [address]Dr. Abhinav Laguna CT CSPINE WO CONon 3 CT CSPINE WO CON Normal [facility] CT STROKE HEAD WOon 08-21-[address] STROKE HEAD WO Normal [facility] Covid-19 PCR ([facility])on SARS-CoV-2 (COVID-19) RNA EVERT+probe Ql (Unsp spec) Not detected Normal NOT DETECTED [facility] Comment on above: Result Comment: When diagnostic [...] for this test is supported by the Hundred of Health and Human Service's declaration that [...] be used). Performed By: #### C VDTBH ####[facility] Aciazsetux[address] [place] [id number]. Abhinav Laguna DRUG SCREEN RAPID (URINE)on 08-21-2022 AMP Positive Abnormal NEGATIVE [facility] Comment on above: Performed By: #### E PIPOR DRUGRPD ####[facility] Vhedibklad2639 [place] [id number]. Abhinav Laguna BAR Negative Normal NEGATIVE [facility] Comment on above: Performed By: #### E RUR DRUGRPD ####[facility] Kfffencpiy6374 [place] [id number]. Abhinav Laguna BUP Negative Normal NEGATIVE [facility] Comment on above: Performed By: #### E RUR, DRUGRPD ####[facility] Biyubvkhyh35[address] [place] [id number]. Abhinav Laguna BZO Negative Normal NEGATIVE [facility] Comment on above: Performed By: #### E RUR, DRUGRPD ####[facility] Xwueevsgjp9[address] [place], [place] [address]Dr. Abhinav Laguna ISELA Negative Normal NEGATIVE [facility] Comment on above: Performed By: #### E RUR, DRUGRPD ####[facility] Qhywgsjryr[address] [place], [place] [address]Dr. Abhinav Laguna CUT-OFFS SEE BELOW Normal [facility] Comment on above: Result Comment: AMP (Amphetamine): 500ng/mL, BAR (Barbituates): 200 ng/mL, BZO (Benzodiazepines): 150 ng/mL, BUP (Buprenorphine): 10 ng/mL, ISELA (Cocaine): 150 ng/mL, mAMP (Methamphetamine): 500 ng/mL, MTD (Methadone): 200 ng/mL, OPI (Opiates): 100 ng/mL, OXY (Oxycodone): 100 ng/mL, PCP (Phencyclidine): 25 ng/mL, PPX (Propoxyphene): 300 ng/mL, THC (Cannabinoids): 50 ng/mL, TCA (Trycyclic Antidepressants): 300 ng/mL Performed By: #### Lon RUR, DRUGRPD ####[facility] Vafoaxkbqf[address] [place], [place] [address]Dr. Abhinav Laguna DRUG CUT HEADER DRUG CLASS TEST SYST EM CUT-OFF CONCENTRATIONS ARE FOLLOWS: Normal [facility] Comment on above: Performed By: #### Lon RUR, DRUGRPD ####[facility] Eturvykxha[address] [place], [place] [address]Dr. Abhinav Laguna mAMP Positive Abnormal NEGATIVE [facility] Comment on above: Performed By: #### E RUR, DRUGRPD ####[facility] Httqczrzcs[address] [place], [place] [address]Dr. Abhinav Laguna MTD Negative Normal NEGATIVE [facility] Comment on above: Performed By: #### E RUR, DRUGRPD ####[facility] Qvfglniymr6[address] [place], [place] [address]Dr. Abhinav Laguna OPI Negative Normal NEGATIVE [facility] Comment on above: Performed By: #### E RUR, DRUGRPD ####[facility] Lguldewgwu6[address] [place] [address]Dr. Yigallo Laguna OXY Negative Normal NEGATIVE [facility] Comment on above: Performed By: #### E RUR, DRUGRPD ####[facility] Zgxfemhfpd4941 [place] [address]Dr. Abhinav Laguna PCP Negative Normal NEGATIVE [facility] Comment on above: Performed By: #### E RUR, DRUGRPD ####[facility] Lodyhvpgky[address] [place], [place] [address]Dr. Abhinav Laguna PPX Negative Normal NEGATIVE [facility] Comment on above: Performed By: #### E RUR, DRUGRPD ####[facility] Daxtunkypf[address] [place], [place] [address]Dr. Abhinav Laguna TCA Negative Normal NEGATIVE [facility] Comment on above: Performed By: #### E RUR, DRUGRPD ####[facility] Grpepywyee[address] [place], [place] [address]Dr. Abhinav Laguna THC Positive Abnormal NEGATIVE [facility] Comment on above: Performed By: #### E RUR, DRUGRPD ####[facility] [address]jvnyypzsv[address] [place], [place] [address]Dr. Abhinav Laguna ER URINE PROFILEon 3 Bilirubin Ql (U) Negative Normal NEGATIVE [facility] Comment on above: Performed By: #### E RUR, DRUGRPD ####[facility] Dcemgbosnw[address] [place], [place] [address]Dr. Abhinav Laguna Clarity (U) CLEAR Normal CLEAR [facility] Comment on above: Performed By: #### E RUR, DRUGRPD ####[facility] [facility] [address]rudvnc[address] [place], [place] [address]Dr. Abhinav Laguna Color (U) LT. YELLOW Normal YELLOW [facility] Comment on above: Performed By: #### E RUR, DRUGRPD ####[facility] Pwdeeqlghh[address] [place], [place] [address]Dr. Abhinav Laguna ERUAHD A micrscopic examina tion will be performed if indicated. Normal [facility] Comment on above: Performed By: #### Lon RUR, DRUGRPD ####[facility] Vbxavfiotb[address] [place], [place] [address]Dr. Abhinav Laguna Glucose Ql (U) 1000 mg/dl Abnormal NEGATIVE [facility] Comment on above: Performed By: #### E RUR, DRUGRPD ####[facility] Faubicpiuo[address] [place], [place] [address]Dr. Abhinav Laguna Hemoglobin Ql (U) Negative Normal NEGATIVE [facility] Comment on above: Performed By: #### Lon RUR DRUGRPD ####[facility] Zflpkxdtfe[address] [place], [place] [address]Dr. Abhinav Laguna Ketones Ql (U) Negative Normal NEGATIVE [facility] Comment on above: Performed By: #### Lon RUR, DRUGRPD ####[facility] T[address]jgspzx[address] [place], [place] [address]Dr. Abhinav Laguna LEUKOCYTES Negative Normal NEGATIVE [facility] Comment on above: Performed By: #### Lon BRODY DRUGRPD ####[facility] Cgnhdx[address] [place], [place] [address]Dr. Abhinav Laguna Nitrite Ql (U) Negative Normal NEGATIVE [facility] Comment on above: Performed By: #### Lon BRODY, DRUGRPD ####[facility] Acsypiapmu[address] [place], [place] [address]Dr. Abhinav Laguna pH (U) 5.5 [pH] Normal 5-9 [facility] Comment on above: Performed By: #### Lon RUR, DRUGRPD ####[facility] Aisrzwmcc[address] [place], [place] [address]Dr. Abhinav Laguna SPEC GRAVITY 1.010 Normal 1.005-<=1.0 25 [facility] Comment on above: Performed By: #### Lon RUDale DRUGRPD ####[facility] Rwkfdwwjzz[address] [place], [place] [address]Dr. Abhinav Laguna UA PROTEIN Negative Normal NEGATIVE/ TRACE [facility] Comment on above: Performed By: #### Lon BRODY DRUGRPD ####[facility] Urremaeuib[address] [place], [place] [address]Dr. Abhinav Laguna UR MICRO IND NOT INDICATED Normal [facility] Comment on above: Performed By: #### E RUR, DRUGRPD ####[facility] Glpsrlhums[address] [place], [place] [address]Dr. Abhinav Laguna Urobilinogen Qn (U) 0.2 {Marshall'U}/dL Normal 0.2 - 1. 0 [facility] Comment on above: Performed By: #### E RUR, DRUGRPD ####[facility] Duefegyzvo[address] [place], [place] [address]Dr. Abhinav Laguna ETHANOL (BLD ALC)on 08-21-19 ALC NOTE NOTE: 80 mg/dl is th e legal limit for a blood alcohol level Normal [facility] Comment on above: Performed By: #### E TH ####[facility] Pvvdkpnxtm6[address] [place], [place] [address]Dr. Abhinav Jase Ethanol [Mass/Vol] mg/dL Normal [facility] Comment on above: Performed By: #### E TH ####[facility] Xivvptmwkc[address] [place], [place] [address]Dr. Abhinav Laguna LACTATE/LACTIC ACIDon 2022 Lactate [Moles/Vol] 1.4 mmol/L Normal 0.4-1.9 [facility] Comment on above: Performed By: #### L ACT ####[facility] Mtbxtiuzvk[address] [place], [place] [address]Dr. Abhinav Jase Lactate [Moles/Vol] 3.5 mmol/L Critically high 0.4-1.9 [facility] Comment on above: Performed By: #### L ACT ####[facility] Kxidhtptil[address] [place], [place] [address]Dr. Abhinav Jase POINT OF CARE GLUCOSEon Glucose [Mass/Vol] 202 mg/dL Critically high 74-106 [facility] Comment on above: Performed By: #### P OCGLUC ####[facility] Zjroimzwep[address] [place], [place] [address]Dr. Abhinav Laguna Glucose [Mass/Vol] 303 mg/dL Critically high 74-106 [facility] Comment on above: Performed By: #### P OCGLUC ####[facility] [address]ozt[address] [place] [address]Dr. Abhinav Laguna Glucose [Mass/Vol] 388 mg/dL Critically high 74-106 [facility] Comment on above: Performed By: #### P OCGLUC ####[facility] Krfgqtkmfe[address] [place] [address]Dr. Abhinav Laguna Glucose [Mass/Vol] 491 mg/dL Critically high 74-106 [facility] Comment on above: Performed By: #### P OCGLUC ####[facility] Zqtvfjkahs[address] [place] [address]Dr. Abhinav Laguna POCGLUC >600 Critically high 74-106 [facility] Comment on above: Result Comment: Prev iously Confirmed Performed By: #### P OCGLUC ####[facility] Rvcrwudb[address] [place], [place] [address]Dr. Abhinav Laguna POCGLUC >600 Critically high 74-106 [facility] Comment on above: Result Comment: Prev iously Confirmed Performed By: #### P OCGLUC ####[facility] Skkuzyktkt[address] [place], [place] [address]Dr. Abhinav Jase PROF 14(COMP METB)on 023 Albumin [Mass/Vol] 3.0 g/dL Critically low 3.4-5.0 Th [facility] Comment on above: Performed By: #### B SENIOR ELECTRICAL ESTIMATOR, CMP, TSH, CMADM ####[facility] [address] [place] [address]Dr. Mirandagallo Jase Albumin/Globulin [Mass ratio] 0.9 {ratio} Normal [facility] Comment on above: Performed By: #### B SENIOR ELECTRICAL ESTIMATOR, CMP, TSH, CMADM ####[facility] [address]zs[address] [place] [address]Dr. Abhinav Jase ALP [Catalytic activity/Vol] 219 U/L Critically high 46-116 [facility] Comment on above: Performed By: #### B SENIOR ELECTRICAL ESTIMATOR, CMP, TSH, CMADM ####[facility] [address]opkjge[address] [place] [address]Dr. Abhinav Laguna ALT [Catalytic activity/Vol] 43 U/L Normal 16-63 [facility] Comment on above: Performed By: #### B SENIOR ELECTRICAL ESTIMATOR, CMP, TSH, CMADM ####[facility] Yanwldmhlb[address] [place] [address]Dr. Abhinav Laguna Anion gap [Moles/Vol] 14.4 mmol/L Normal Th [facility] Comment on above: Performed By: #### B SENIOR ELECTRICAL ESTIMATOR, CMP, TSH, CMADM ####[facility] Fiz[address]xhjbg[address] [place] [address]Dr. Abhinav Laguna AST [Catalytic activity/Vol] 24 U/L Normal 15-37 [facility] Comment on above: Performed By: #### B SENIOR ELECTRICAL ESTIMATOR, CMP, TSH, CMADM ####[facility] Y[address]ctflb[address] [place] [address]Dr. Abhinav Laguna Bilirubin [Mass/Vol] 0.7 mg/dL Normal 0.2-1.0 [facility] Comment on above: Performed By: #### B SENIOR ELECTRICAL ESTIMATOR, CMP, TSH, CMADM ####[facility] [address]cnfapzuz[address] [place] [address]Dr. Abhinav Laguna Calcium [Mass/Vol] 9.8 mg/dL Normal 8.5-10.1 [facility] Comment on above: Performed By: #### B SENIOR ELECTRICAL ESTIMATOR, CMP, TSH, CMADM ####[facility] [address]qig[address] [place] [address]Dr. Abhinav Laguna Chloride [Moles/Vol] 88 mmol/L Critically low 98-107 [facility] Comment on above: Performed By: #### B SENIOR ELECTRICAL ESTIMATOR, CMP, TSH, CMADM ####[facility] Czwqqbwnjz[address] [place] [address]Dr. Abhinav Laguna CO2 [Moles/Vol] 23.3 mmol/L Normal 21.0-32.0 [facility] Comment on above: Performed By: #### B SENIOR ELECTRICAL ESTIMATOR, CMP, TSH, CMADM ####[facility] [address]mgjpkis[address] [place] [address]Dr. Abhinav Laguna Creatinine [Mass/Vol] 1.44 mg/dL Critically high 0.70-1.30 [facility] Comment on above: Performed By: #### B SENIOR ELECTRICAL ESTIMATOR, CMP, TSH, CMADM ####[facility] Desqxgvscl[address] [place] [address]Dr. Abhinav Laguna EGFR-AF MAURITANIAN 60 mL/min/1.73m2 Normal >=60 Th [facility] Comment on above: Performed By: #### B SENIOR ELECTRICAL ESTIMATOR, CMP, TSH, CMADM ####[facility] Bqmlbfexie[address] [place] [address]Dr. Abhinav Laguna EGFR-NON AF MAURITANIAN 50 mL/min/1.73m2 Critically low >=60 [facility] Comment on above: Performed By: #### B SENIOR ELECTRICAL ESTIMATOR, CMP, TSH, CMADM ####[facility] Crdkehhwfg[address] [place] [address]Dr. Mirandagallo Jase Globulin (S) [Mass/Vol] 3.4 g/dL Normal [facility] Comment on above: Performed By: #### B SENIOR ELECTRICAL ESTIMATOR, CMP, TSH, CMADM ####[facility] Qbcqxnflab[address] [place] [address]Dr. Mirandagallo Laguna Glucose [Mass/Vol] 782 mg/dL Critically high 74-106 [facility] Comment on above: Performed By: #### B SENIOR ELECTRICAL ESTIMATOR, CMP, TSH, CMADM ####[facility] Ilepukaxtb[address] [place] [address]Dr. Abhinav Laguna Potassium [Moles/Vol] 3.7 mmol/L Normal 3.5-5.1 [facility] Comment on above: Performed By: #### B SENIOR ELECTRICAL ESTIMATOR, CMP, TSH, CMADM ####[facility] Urclvoovol[address] [place] [address]Dr. Mirandagallo Laguna Protein [Mass/Vol] 6.4 g/dL Normal 6.4-8.2 [facility] Comment on above: Performed By: #### B SENIOR ELECTRICAL ESTIMATOR, CMP, TSH, CMADM ####[facility] Naptlqhqut[address] [place] [address]Dr. Abhinav Laguna Sodium [Moles/Vol] 122 mmol/L Critically low 136-145 [facility] Comment on above: Performed By: #### B SENIOR ELECTRICAL ESTIMATOR, CMP, TSH, CMADM ####[facility] Nxlmsuonii9462 [place] [address]Dr. Mirandagallo Jase Urea nitrogen [Mass/Vol] 32.0 mg/dL Critically high 7.0-18.0 [facility] Comment on above: Performed By: #### B SENIOR ELECTRICAL ESTIMATOR, CMP, TSH, CMADM ####[facility] Cmyxsdcbjg[address]24 [place] [address]Dr. Abhinav Laguna Urea nitrogen/Creatinine [Mass ratio] 22.2 mg/mg Normal [facility] Comment on above: Performed By: #### B SENIOR ELECTRICAL ESTIMATOR, CMP, TSH, CMADM ####[facility] Vwnbqlacgq[address] [place], [place] [address]Dr. Abhinav Laguna PROF CHEM 8 (BAS METB)on Anion gap [Moles/Vol] 10.3 mmol/L Normal [facility] Comment on above: Performed By: #### B MP ####[facility] Z[address]ru[address] [place], [place] [address]Dr. Abhinav Laguna Calcium [Mass/Vol] 8.8 mg/dL Normal 8.5-10.1 [facility] Comment on above: Performed By: #### B MP ####[facility] Qzexs[address]rsz[address] [place], [place] [address]Dr. Abhinav Laguna Chloride [Moles/Vol] 106 mmol/L Normal 98-107 [facility] Comment on above: Performed By: #### B MP ####[facility] [address]xhlduq[address] [place], [place] [address]Dr. Abhinav Laguna CO2 [Moles/Vol] 22.2 mmol/L Normal 21.0-32.0 [facility] Comment on above: Performed By: #### B MP ####[facility] H[address]yqkmkqm[address] [place], [place] [address]Dr. Abhinav Laguna Creatinine [Mass/Vol] 1.01 mg/dL Normal 0.70-1.30 [facility] Comment on above: Performed By: #### B MP ####[facility] [address]htdgqgv4[address] [place] [id number]. Abhinav Laguna EGFR-AF MAURITANIAN >60 Normal >=60 [facility] Comment on above: Performed By: #### B MP ####[facility] Fvmvklxqjv25[address] [place] [id number]. Abhinav Laguna EGFR-NON AF MAURITANIAN >60 Normal >=60 [facility] Comment on above: Performed By: #### B MP ####[facility] Mwuuqqkvie98[address] [place] [address]Dr. Abhinav Laguna Glucose [Mass/Vol] 159 mg/dL Critically high 74-106 [facility] Comment on above: Performed By: #### B MP ####[facility] Geawzvugch4[address] [place] [address]Dr. Abhinav Laguna Potassium [Moles/Vol] 3.5 mmol/L Normal 3.5-5.1 [facility] Comment on above: Performed By: #### B MP ####[facility] Ivmttpfddy5979 [place] [address]Dr. Abhinav Laguna Sodium [Moles/Vol] 135 mmol/L Critically low 136-145 Th [facility] Comment on above: Performed By: #### B MP ####[facility] Argboqnuxd7267 [place] [address]Dr. Abhinav Laguna Urea nitrogen [Mass/Vol] 32.0 mg/dL Critically high 7.0-18.0 [facility] Comment on above: Performed By: #### B MP ####[facility] Duflnuoxjb1560 [place] [address]Dr. Abhinav Laguna Urea nitrogen/Creatinine [Mass ratio] 31.7 mg/mg Normal [facility] Comment on above: Performed By: #### B MP ####[facility] Dqoeuthqyd[address] [place] [address]Dr. Abhinav Laguna PROTIMEon 08-21-2022 INR Coag (PPP) [Relative time] 0.99 {INR} Normal [facility] Comment on above: Performed By: #### P TT, PT ####[facility] Qyxkhovsdr0373 [place] [address]Dr. Abhinav Laguna INR GUIDELINES SEE BELOW Normal [facility] Comment on above: Result Comment: FABRICE RED INR: 2.0 - 3.0 CONDITIONS NOT LISTED BELOW 2.5 - 3.5 FOR PROSTHETIC HEART VALVE REPLACEMENT 2.5 - 3.5 RECURRENT THROMBOSIS Performed By: #### P TT, PT ####[facility] Evhzkhypqi[address] [place] [address]Dr. Abhinav Laguna PT Coag (PPP) [Time] 10.7 s Normal 9.0-11.6 [facility] Comment on above: Performed By: #### P TT, PT ####[facility] [address]vumzemgej[address] [place], [place] [address]Dr. Abhinav Laguna PTTon 08-21-2022 aPTT Coag (Bld) [Time] 25.4 s Normal 22.3-36.2 Th [facility] Comment on above: Performed By: #### P TT, PT ####[facility] Dujpvulswo[address] [place], [place] [address]Dr. Abhinav Laguna TSHon 08-21-2022 TSH 3.175 uIU/mL Normal 0.358-3.740 [facility] Comment on above: Performed By: #### B SENIOR ELECTRICAL ESTIMATOR, CMP, TSH, CMADM ####[facility] Knpwgdslmj2[address] [place], [place] [address]Dr. Abhinav Laguna XR CHEST 1 Von 08-21-2022 XR CHEST 1 V Normal [facility] CBC AUTO DIFFon 07-28-2022 BASO # 0.0 103/ul Normal 0.0-0.1 [facility] Comment on above: Performed By: #### C BC ####[facility] Ygrqvjveiy[address] [place], [place] [address]Dr. Abhinav Laguna Basophils/100 WBC (Bld) 0.5 % Normal 0.2-2.0 [facility] Comment on above: Performed By: #### C BC ####[facility] Qhgreezrtx4[address] [place], [place] [address]Dr. Abhinav Laguna EO # 0.1 103/ul Normal 0.0-0.7 [facility] Comment on above: Performed By: #### C BC ####[facility] Jsgnymehqg[address] [place] [address]Dr. Abhinav Laguna Eosinophils/100 WBC (Bld) 1.5 % Normal 0.9-7.0 [facility] Comment on above: Performed By: #### C BC ####[facility] V[address]duzlhgm[address] [place], [place] [address]Dr. Abhinav Laguna Erythrocyte distribution width (RBC) [Ratio] 11.9 % Normal 11.0-15.0 [facility] Comment on above: Performed By: #### C BC ####[facility] Kzjjrehczl[address] [place], [place] [address]Dr. Abhinav Laguna Hematocrit (Bld) [Volume fraction] 48.7 % Normal 42.0-54.0 [facility] Comment on above: Performed By: #### C BC ####[facility] Trqkfolcgs[address] [place], [place] [address]Dr. Abhinav Laguna Hemoglobin (Bld) [Mass/Vol] 17.3 g/dL Normal 14.0-18.0 [facility] Comment on above: Performed By: #### C BC ####[facility] N[address]ogfvmne[address] [place], [place] [address]Dr. Abhinav Laguna IG # 0.02 10e3/ul Normal 0.00-0.03 [facility] Comment on above: Performed By: #### C BC ####[facility] [address]hbrv[address] [place], [place] [address]Dr. Abhinav Laguna IG % 0.3 % Normal 0.0-0.5 [facility] Comment on above: Performed By: #### C BC ####[facility] K[address]lccfng[address] [place], [place] [address]Dr. Abhinav Laguna LYMPH # 2.9 103/ul Normal 1.2-3.8 [facility] Comment on above: Performed By: #### C BC ####[facility] Ahjshvqqts[address] [place], [place] [address]Dr. Abhinav Jase Lymphocytes/100 WBC (Bld) 46.3 % Normal 20.5-60.0 [facility] Comment on above: Performed By: #### C BC ####[facility] C[address]uzevonc[address] [place] [address]DrNohemi Laguna MANUAL DIFF REQ NO Normal [facility] Comment on above: Performed By: #### C BC ####[facility] Qeosvefnkj2516 [place] [id number]. Abhinav Laguna MCH (RBC) [Entitic mass] 30.3 pg Normal 25.9-34.0 [facility] Comment on above: Performed By: #### C BC ####[facility] Huesautbog[address] [place] [address]Dr. Abhinav Laguna MCHC (RBC) [Mass/Vol] 35.5 g/dL Critically high 29.9-35.2 [facility] Comment on above: Performed By: #### C BC ####[facility] Zroiqjrelj[address] [place], [place] [address]Dr. Abhinav Laguna MCV (RBC) [Entitic vol] 85.3 fL Normal 80.0-94.0 [facility] Comment on above: Performed By: #### C BC ####[facility] Gnwzrxgxjo[address] [place], [place] [address]DrNohemi Laguna MONO # 0.5 103/ul Normal 0.3-0.8 [facility] Comment on above: Performed By: #### C BC ####[facility] Ckvvtsxpnx[address] [place], [place] [address]DrNohemi Laguna Monocytes/100 WBC (Bld) 7.9 % Normal 1.7-12.0 [facility] Comment on above: Performed By: #### C BC ####[facility] Tlhbyumkgx[address] [place], [place] [address]DrNohemi Laguna NEUT # 2.7 103/ul Normal 1.4-6.5 [facility] Comment on above: Performed By: #### C BC ####[facility] Ydkvvajeol[address] [place], [place] [address]DrNohemi Laguna Neutrophils/100 WBC (Bld) 43.5 % Normal 43.0-75.0 [facility] Comment on above: Performed By: #### C BC ####[facility] Zztqbjknwu2953 [place] [address]Dr. Abhinav Laguna Platelet mean volume (Bld) [Entitic vol] 10.7 fL Normal 9.5-13.5 [facility] Comment on above: Performed By: #### C BC ####[facility] Thakkrgkcj3746 [place] [address]Dr. Abhinav Laguna PLT 202 103/ul Normal 150-450 [facility] Comment on above: Performed By: #### C BC ####[facility] Nuqzbccnhq[address] [place], [place] [address]Dr. Abhinav Laguna RBC 5.71 106/ul Normal 4.70-6.10 [facility] Comment on above: Performed By: #### C BC ####[facility] Somkedmvyt23[address] [place], [place] [address]Dr. Abhinav Laguna WBC 6.2 103/ul Normal 4.0-11.0 [facility] Comment on above: Performed By: #### C BC ####[facility] Feeepbenqe[address] [place], [place] [address]Dr. Abhinav Laguna GLYCOHEMOGLOBIN A1Con 2021 ADA RECOMMENDATION SEE BELOW Normal [facility] Comment on above: Result Comment: ADA RECOMMENDED LIMIT 4.0 - 6.0 ADA THERAPEUTIC TARGET < 7.0 ACTION SUGGESTED > 7.0 Performed By: #### A 1C ####[facility] [address]ynigduffx[address] [place], [place] [address]Dr. Abhinav Laguna Glucose [Mass/Vol] 272 mg/dL Normal [facility] Comment on above: Performed By: #### A 1C ####[facility] Hjudupdnbr[address] [place], [place] [address]Dr. Abhinav Laguna HbA1c (Bld) [Mass fraction] 11.1 % Critically high 4.5-6.2 [facility] Comment on above: Performed By: #### A 1C ####[facility] Ahvrxorzvl[address] [place], [place] [address]Dr. Abhinav Jase LIPID PROFILEon 07-28-2022 CHOL-HDL RATIO NORM SEE BELOW Normal [facility] Comment on above: Result Comment: 3.3 - 4.4 LOW RISK 4.4 - 7.1 AVERAGE RISK 7.1 - 11.0 MODERATE RISK >11.0 HIGH RISK Performed By: #### L IPID, CMP ####[facility] Tyearvzwca[address] [place] [id number]. Abhinav Laguna Cholesterol [Mass/Vol] 200 mg/dL Normal <=200 Th [facility] Comment on above: Performed By: #### L IPID, CMP ####[facility] Vxlmflvkrl8953 [place] [id number]. Abhinav Laguna Cholesterol in HDL [Mass/Vol] 50 mg/dL Normal 40-60 [facility] Comment on above: Performed By: #### L IPID, CMP ####[facility] Leixnttfsx9599 [place] [id number]. Abhinav Laguna Cholesterol in LDL [Mass/Vol] 125.6 mg/dL Normal [facility] Comment on above: Performed By: #### L IPID, CMP ####[facility] Tndpnyvczk7368 [place] [id number]. Abhinav Laguna Cholesterol.total/Chol esterol in HDL [Mass ratio] 4.0 {ratio} Normal [facility] Comment on above: Performed By: #### L IPID, CMP ####[facility] Ypybblymrl9[address] [place] [id number]. Abhinav Laguna HDL NORMAL > or = 60 mg/dl - LO W CARDIOVASCULAR RISK <40 mg/dl - HIGH CARDIOVASCULAR RISK Normal [facility] Comment on above: Performed By: #### L IPID, CMP ####[facility] Tjvhoaulde7206 [place] [id number]. Abhinav Laguna LDL CALC NORMAL SEE BELOW Normal [facility] Comment on above: Result Comment: <100 mg/dl OPTIMAL 100 - 129 mg/dl NEAR OR ABOVE OPTIMAL 130 - 159 mg/dl BORDERLINE HIGH 160 - 189 mg/dl HIGH >190 mg/dl VERY HIGH Performed By: #### L IPID, CMP ####[facility] Qlamoxsmfb[address] [place] [address]Dr. Abhinav Laguna Triglyceride [Mass/Vol] 122 mg/dL Normal <=150 [facility] Comment on above: Performed By: #### L IPID, CMP ####[facility] Yxfuzyhqtb9064 [place] [address]Dr. Abhinav Laguna VLDL CALC 24.4 mg/dL Normal [facility] Comment on above: Performed By: #### L IPID, CMP ####[facility] Vtiunfjqur[address] [place], [place] [address]Dr. Abhinav Laguna PROF 14(COMP METB)on 022 Albumin [Mass/Vol] 2.6 g/dL Critically low 3.4-5.0 Th [facility] Comment on above: Performed By: #### L IPID, CMP ####[facility] [address]jsdscblfd[address] [place], [place] [address]Dr. Abhinav Laguna Albumin/Globulin [Mass ratio] 0.6 {ratio} Normal [facility] Comment on above: Performed By: #### L IPID, CMP ####[facility] [address]sefwuwzcy[address] [place], [place] [address]Dr. Abhinav Laguna ALP [Catalytic activity/Vol] 247 U/L Critically high 46-116 [facility] Comment on above: Performed By: #### L IPID, CMP ####[facility] [address]tskdczwk[address] [place], [place] [address]Dr. Abhinav Laguna ALT [Catalytic activity/Vol] 33 U/L Normal 16-63 [facility] Comment on above: Performed By: #### L IPID, CMP ####[facility] Rnulswnmnd[address] [place], [place] [address]Dr. Abhinav Laguna Anion gap [Moles/Vol] 7.7 mmol/L Normal [facility] Comment on above: Performed By: #### L IPID, CMP ####[facility] Lygejlflvd[address] [place], [place] [address]Dr. Abhinav Laguna AST [Catalytic activity/Vol] 19 U/L Normal 15-37 [facility] Comment on above: Performed By: #### L IPID, CMP ####[facility] Th[address]uzrhk[address] [place] [address]Dr. Abhinav Laguna Bilirubin [Mass/Vol] 0.2 mg/dL Normal 0.2-1.0 [facility] Comment on above: Performed By: #### L IPID, CMP ####[facility] Xnhzvcwzlm[address] [place], [place] [address]Dr. Abhinav Laguna Calcium [Mass/Vol] 9.7 mg/dL Normal 8.5-10.1 [facility] Comment on above: Performed By: #### L IPID, CMP ####[facility] Ajvipwhfgg12[address] [place], [place] [address]Dr. Abhinav Laguna Chloride [Moles/Vol] 101 mmol/L Normal 98-107 [facility] Comment on above: Performed By: #### L IPID, CMP ####[facility] Kxzpygduvy13[address] [place], [place] [address]Dr. Abhinav Laguna CO2 [Moles/Vol] 30.8 mmol/L Normal 21.0-32.0 [facility] Comment on above: Performed By: #### L IPID, CMP ####[facility] Efkzwjrsee9[address] [place], [place] [address]Dr. Abhinav Laguna Creatinine [Mass/Vol] 0.84 mg/dL Normal 0.70-1.30 [facility] Comment on above: Performed By: #### L IPID, CMP ####[facility] Saoggxdbjm59[address] [place], [place] [address]Dr. Abhinav Laguna EGFR-AF MAURITANIAN >60 Normal >=60 [facility] Comment on above: Performed By: #### L IPID, CMP ####[facility] Qepdlkhqlf13[address] [place], [place] [address]Dr. Abhinav Laguna EGFR-NON AF MAURITANIAN >60 Normal >=60 [facility] Comment on above: Performed By: #### L IPID, CMP ####[facility] Zktfvaceki6557[address] [place], [place] [address]Dr. Abhinav Laguna Globulin (S) [Mass/Vol] 4.1 g/dL Normal [facility] Comment on above: Performed By: #### L IPID, CMP ####[facility] Rfmwhgjhnq35[address] [place] [address]Dr. Abhinav Laguna Glucose [Mass/Vol] 265 mg/dL Critically high 74-106 [facility] Comment on above: Performed By: #### L IPID, CMP ####[facility] Cdoajqibri25[address] [place] [address]Dr. Abhinav Laguna Potassium [Moles/Vol] 4.5 mmol/L Normal 3.5-5.1 [facility] Comment on above: Performed By: #### L IPID, CMP ####[facility] Ykhavdlxdh47[address] [place], [place] [address]Dr. Abhinav Laguna Protein [Mass/Vol] 6.7 g/dL Normal 6.4-8.2 [facility] Comment on above: Performed By: #### L IPID, CMP ####[facility] Oofywyxhyh4[address] [place], [place] [address]Dr. Abhinav Laguna Sodium [Moles/Vol] 135 mmol/L Critically low 136-145 Th [facility] Comment on above: Performed By: #### L IPID, CMP ####[facility] Jqcxshktax174[address] [place], [place] [address]Dr. Abhinav Laguna Urea nitrogen [Mass/Vol] 18.0 mg/dL Normal 7.0-18.0 [facility] Comment on above: Performed By: #### L IPID, CMP ####[facility] Nhihcvrgml083[address] [place], [place] [address]Dr. Abhinav Laguna Urea nitrogen/Creatinine [Mass ratio] 21.4 mg/mg Normal [facility] Comment on above: Performed By: #### L IPID, CMP ####[facility] Bexqbmhuuj224[address] [place], [place] [address]Dr. Abhinav Laguna SED RATE [facility] CORPORATION[facility]ENon 2021 SED RATE 28 mm/hr Critically high <=20 [facility] Comment on above: Performed By: #### S EDR ####[facility] Uujslqsqow8[address] [place], [place] [address]Dr. Abhinav Laguna XR FOOT RT MIN 3 VIEWSon XR FOOT RT MIN 3 VIEWS Normal Th e [facility] CBC AUTO DIFFon 02-09-2022 BASO # 0.0 103/ul Normal 0.0-0.1 [facility] Comment on above: Performed By: #### C BC ####[facility] Iptrzyeaxu4558[address] [place], [place] [address]Dr. Abhinav Laguna Basophils/100 WBC (Bld) 0.4 % Normal 0.2-2.0 [facility] Comment on above: Performed By: #### C BC ####[facility] Krcscroaqk3635[address] [place], [place] [address]Dr. Abhinav Laguna EO # 0.1 103/ul Normal 0.0-0.7 [facility] Comment on above: Performed By: #### C BC ####[facility] Kaetkrnnhg165[address] [place], [place] [address]Dr. Abhinav Laguna Eosinophils/100 WBC (Bld) 1.5 % Normal 0.9-7.0 [facility] Comment on above: Performed By: #### C BC ####[facility] Vlowvyjncu9[address] [place], [place] [address]Dr. Abhinav Laguna Erythrocyte distribution width (RBC) [Ratio] 12.4 % Normal 11.0-15.0 [facility] Comment on above: Performed By: #### C BC ####[facility] Mhohqfmjya[address] [place], [place] [address]Dr. Abhinav Laguna Hematocrit (Bld) [Volume fraction] 38.2 % Critically low 42.0-54.0 [facility] Comment on above: Performed By: #### C BC ####[facility] Xyicszwmli1341[address] [place], [place] [address]Dr. Abhinav Laguna Hemoglobin (Bld) [Mass/Vol] 13.9 g/dL Critically low 14.0-18.0 [facility] Comment on above: Performed By: #### C BC ####[facility] Neradcfldk3765[address] [place], [place] [address]Dr. Abhinav Laguna IG # 0.05 10e3/ul Critically high 0.00-0.03 [facility] Comment on above: Performed By: #### C BC ####[facility] Qufstcrbpk[address] [place] [address]Dr. Abhinav Laguna IG % 0.6 % Critically high 0.0-0.5 [facility] Comment on above: Performed By: #### C BC ####[facility] Bckwwztumo87[address] [place] [address]Dr. Abhinav Laguna LYMPH # 2.2 103/ul Normal 1.2-3.8 [facility] Comment on above: Performed By: #### C BC ####[facility] Xdyvsrkhoq01[address] [place], [place] [address]Dr. Abhinav Jase Lymphocytes/100 WBC (Bld) 26.9 % Normal 20.5-60.0 [facility] Comment on above: Performed By: #### C BC ####[facility] Pegasbciuz16[address] [place], [place] [address]Dr. Mirandagallo Laguna MANUAL DIFF REQ NO Normal [facility] Comment on above: Performed By: #### C BC ####[facility] Xbjlrmzlox[address] [place], [place] [address]Dr. Abhinav Laguna MCH (RBC) [Entitic mass] 31.6 pg Normal 25.9-34.0 [facility] Comment on above: Performed By: #### C BC ####[facility] Xnncvcgokb60[address] [place], [place] [address]Dr. Abhinav Laguna MCHC (RBC) [Mass/Vol] 36.4 g/dL Critically high 29.9-35.2 [facility] Comment on above: Performed By: #### C BC ####[facility] Mgwxljcotq1927[address] [place], [place] [address]Dr. Abhinav Laguna MCV (RBC) [Entitic vol] 86.8 fL Normal 80.0-94.0 [facility] Comment on above: Performed By: #### C BC ####[facility] Mhdjneowqy5[address] [place], [place] [address]Dr. Abhinav Jase MONO # 0.5 103/ul Normal 0.3-0.8 [facility] Comment on above: Performed By: #### C BC ####[facility] Lgxurmkqdp8[address] [place] [id number]. Abhinav Laguna Monocytes/100 WBC (Bld) 6.2 % Normal 1.7-12.0 [facility] Comment on above: Performed By: #### C BC ####[facility] [address]ocaeimmgp[address] [place] [id number]. Abhinav Laguna NEUT # 5.2 103/ul Normal 1.4-6.5 [facility] Comment on above: Performed By: #### C BC ####[facility] Yigycjqupg12[address] [place] [id number]. Abhinav Laguna Neutrophils/100 WBC (Bld) 64.4 % Normal 43.0-75.0 [facility] Comment on above: Performed By: #### C BC ####[facility] Pgvmvyeftv9[address] [place] [id number]. Abhinav Laguna Platelet mean volume (Bld) [Entitic vol] 10.8 fL Normal 9.5-13.5 [facility] Comment on above: Performed By: #### C BC ####[facility] Delxaryfzk25[address] [place] [id number]. Abhinav Laguna PLT 226 103/ul Normal 150-450 [facility] Comment on above: Performed By: #### C BC ####[facility] Hbvnktbqzw8507 [place] [id number]. Abhinav Laguna RBC 4.40 106/ul Critically low 4.70-6.10 [facility] Comment on above: Performed By: #### C BC ####[facility] Gnhdlecbqt4[address] [place] [id number]. Abhinav Laguna WBC 8.0 103/ul Normal 4.0-11.0 [facility] Comment on above: Performed By: #### C BC ####[facility] Kyyucuvhys[address] [place] [id number]. Abhinav Laguna POINT OF CARE GLUCOSEon -2 Glucose [Mass/Vol] 360 mg/dL Critically high 74-106 [facility] Comment on above: Performed By: #### P OCGLUC ####[facility] Irzlooysdc[address] [place] [address]Dr. Abhinav Laguna PROF CHEM 8 (BAS METB)on Anion gap [Moles/Vol] 13.6 mmol/L Normal Th [facility] Comment on above: Performed By: #### B MP ####[facility] Pyyhtkizxp5[address] [place], [place] [address]Dr. Abhinav Laguna Calcium [Mass/Vol] 9.1 mg/dL Normal 8.5-10.1 [facility] Comment on above: Performed By: #### B MP ####[facility] Bpcwbsjeep5436[address] [place], [place] [address]Dr. Abhinav Laguna Chloride [Moles/Vol] 102 mmol/L Normal 98-107 [facility] Comment on above: Performed By: #### B MP ####[facility] Ikpsjdlsts5713[address] [place], [place] [address]Dr. Abhinav Laguna CO2 [Moles/Vol] 21.9 mmol/L Normal 21.0-32.0 [facility] Comment on above: Performed By: #### B MP ####[facility] Yxoosrebyv11[address] [place], [place] [address]Dr. Abhinav Laguna Creatinine [Mass/Vol] 0.89 mg/dL Normal 0.70-1.30 [facility] Comment on above: Performed By: #### B MP ####[facility] Duikhxtyho4819[address] [place], [place] [address]Dr. Abhinav Laguna EGFR-AF MAURITANIAN >60 Normal >=60 [facility] Comment on above: Performed By: #### B MP ####[facility] Wmabugupmy19[address] [place], [place] [address]Dr. Abhinav Laguna EGFR-NON AF MAURITANIAN >60 Normal >=60 [facility] Comment on above: Performed By: #### B MP ####[facility] Aducusaddx6661[address] [place], [place] [address]Dr. Abhinav Laguna Glucose [Mass/Vol] 394 mg/dL Critically high 74-106 [facility] Comment on above: Performed By: #### B MP ####[facility] Zgkfqowvbv6697 [place] [address]Dr. Abhinav Laguna Potassium [Moles/Vol] 4.5 mmol/L Normal 3.5-5.1 [facility] Comment on above: Performed By: #### B MP ####[facility] Igmpxdigde3836[address] [place], [place] [address]Dr. Abhinav Laguna Sodium [Moles/Vol] 133 mmol/L Critically low 136-145 Th [facility] Comment on above: Performed By: #### B MP ####[facility] Rjbjqgxxmy9901[address] [place], [place] [address]Dr. Abhinav Laguna Urea nitrogen [Mass/Vol] 21.0 mg/dL Critically high 7.0-18.0 [facility] Comment on above: Performed By: #### B MP ####[facility] Pgynmldcke10[address] [place], [place] [address]Dr. Abhinav Laguna Urea nitrogen/Creatinine [Mass ratio] 23.6 mg/mg Normal [facility] Comment on above: Performed By: #### B MP ####[facility] Jlwwfeodod60[address] [place], [place] [address]Dr. Abhinav Jase ACETONE SERUMon 02-08-2022 ACETONE Negative Normal NEGATIVE [facility] Comment on above: Performed By: #### A CETON ####[facility] Sdrgxcpari11[address] [place], [place] [address]Dr. Abhinav Laguna CBC AUTO DIFFon 02-08-2022 BASO # 0.1 103/ul Normal 0.0-0.1 [facility] Comment on above: Performed By: #### C BC ####[facility] Epwkawokzc7162[address] [place], [place] [address]Dr. Abhinav Laguna Basophils/100 WBC (Bld) 0.8 % Normal 0.2-2.0 [facility] Comment on above: Performed By: #### C BC ####[facility] Gwoxyurniu25[address] [place], [place] [address]Dr. Abhinav Laguna EO # 0.2 103/ul Normal 0.0-0.7 [facility] Comment on above: Performed By: #### C BC ####[facility] Upynempdyq3[address] [place] [address]Dr. Abhinav Laguna Eosinophils/100 WBC (Bld) 1.9 % Normal 0.9-7.0 [facility] Comment on above: Performed By: #### C BC ####[facility] Znkujsujnv5501 [place] [address]Dr. Abhinav Laguna Erythrocyte distribution width (RBC) [Ratio] 12.3 % Normal 11.0-15.0 [facility] Comment on above: Performed By: #### C BC ####[facility] Imfwoaidjj1404[address] [place], [place] [address]Dr. Abhinav Laguna Hematocrit (Bld) [Volume fraction] 46.1 % Normal 42.0-54.0 [facility] Comment on above: Performed By: #### C BC ####[facility] Ysfppuktvb5[address] [place], [place] [address]Dr. Abhinav Laguna Hemoglobin (Bld) [Mass/Vol] 17.0 g/dL Normal 14.0-18.0 [facility] Comment on above: Performed By: #### C BC ####[facility] Uqxshakirl8144[address] [place], [place] [address]Dr. Abhinav Laguna IG # 0.04 10e3/ul Critically high 0.00-0.03 [facility] Comment on above: Performed By: #### C BC ####[facility] Xdsskzbnkv1074[address] [place], [place] [address]Dr. Abhinav Laguna IG % 0.4 % Normal 0.0-0.5 [facility] Comment on above: Performed By: #### C BC ####[facility] Ywuwjebwko16[address] [place], [place] [address]Dr. Abhinav Laguna LYMPH # 2.5 103/ul Normal 1.2-3.8 [facility] Comment on above: Performed By: #### C BC ####[facility] Svzxnmovaq4144[address] [place], [place] [address]Dr. Abhinav Laguna Lymphocytes/100 WBC (Bld) 27.4 % Normal 20.5-60.0 [facility] Comment on above: Performed By: #### C BC ####[facility] Xphdajkrqy87[address] [place] [address]Dr. Abhinav Laguna MANUAL DIFF REQ NO Normal [facility] Comment on above: Performed By: #### C BC ####[facility] Ywmnovwbea0818 [place] [id number]. Abhinav Laguna MCH (RBC) [Entitic mass] 31.7 pg Normal 25.9-34.0 [facility] Comment on above: Performed By: #### C BC ####[facility] Iedsonnbuy88[address] [place] [address]Dr. Abhinav Laguna MCHC (RBC) [Mass/Vol] 36.9 g/dL Critically high 29.9-35.2 [facility] Comment on above: Performed By: #### C BC ####[facility] Czatfpbazd45[address] [place], [place] [address]Dr. Abhinav Laguna MCV (RBC) [Entitic vol] 86.0 fL Normal 80.0-94.0 [facility] Comment on above: Performed By: #### C BC ####[facility] Ccyymcpppz[address] [place], [place] [address]Dr. Abhinav Laguna MONO # 0.6 103/ul Normal 0.3-0.8 [facility] Comment on above: Performed By: #### C BC ####[facility] Dcwwwqxsgr3491[address] [place], [place] [address]Dr. Abhinav Laguna Monocytes/100 WBC (Bld) 6.4 % Normal 1.7-12.0 [facility] Comment on above: Performed By: #### C BC ####[facility] Tdznapgotd9714[address] [place], [place] [address]Dr. Abhinav Laguna NEUT # 5.7 103/ul Normal 1.4-6.5 [facility] Comment on above: Performed By: #### C BC ####[facility] Tiirwbfpag7455[address] [place], [place] [address]Dr. Abhinav Laguna Neutrophils/100 WBC (Bld) 63.1 % Normal 43.0-75.0 [facility] Comment on above: Performed By: #### C BC ####[facility] Fwyeeklovp74[address] [place] [id number]. Abhinav Laguna Platelet mean volume (Bld) [Entitic vol] 11.8 fL Normal 9.5-13.5 [facility] Comment on above: Performed By: #### C BC ####[facility] Qickzruzfn6852 [place] [id number]. Abhinav Laguna PLT 256 103/ul Normal 150-450 [facility] Comment on above: Performed By: #### C BC ####[facility] Jaorjfbndv0425 [place] [id number]. Abhinav Laguna RBC 5.36 106/ul Normal 4.70-6.10 [facility] Comment on above: Performed By: #### C BC ####[facility] Sthbvnchuv7219 [place] [id number]. Abhinav Laguna WBC 9.0 103/ul Normal 4.0-11.0 [facility] Comment on above: Performed By: #### C BC ####[facility] Ocssnrjyhs29[address] [place] [id number]. Abhinav Laguna CULTURE BLOODon 02-08-2022 Microscopic examination of blood, culture Culture Observations: NO GROWTH AT 5 DAYS. Normal [facility] Comment on above: Performed By: #### B LDCX2 ####[facility] Bvpcsjdesq32[address] [place] [phone]. Abhinav Laguna Microscopic examination of blood, culture Culture Observations: NO GROWTH AT 5 DAYS. Normal [facility] Comment on above: Performed By: #### B LDCX1 ####[facility] Cdhabryfdx73[address] [place] [address]Dr. Abhinav Laguna Cov[facility]-16 SARS-CoV-2 (COVID-19) RNA EVERT+probe Ql (Unsp spec) Not detected Normal NOT DETECTED [facility] Comment on above: Result Comment: When diagnostic [...] for this test is supported by the Station Installer And Repairer of Health and Human Service's declaration that [...] longer be used). Performed By: #### C [facility] ####[facility] Jlgsorvzjg[address] [place], [place] [address]Dr. Abhinav Laguna ER URINE PROFILEon 2 Bilirubin Ql (U) Negative Normal NEGATIVE [facility] Comment on above: Performed By: #### E RUR ####[facility] Gnnfinbamv774[address] [place], [place] [address]Dr. Abhinav Laguna Clarity (U) CLEAR Normal CLEAR [facility] Comment on above: Performed By: #### E RUR ####[facility] Cewjpwpcco07[address] [place], [place] [address]Dr. Abhinav Laguna Color (U) LT. YELLOW Normal YELLOW [facility] Comment on above: Performed By: #### E RUR ####[facility] Udtpexljpo[address] [place], [place] [address]Dr. Abhinav Laguna ERUAHD A micrscopic examina tion will be performed if indicated. Normal [facility] Comment on above: Performed By: #### E RUR ####[facility] Xzdpovinmp9644[address] [place], [place] [address]Dr. Abhinav Laguna Glucose Ql (U) >1000 Abnormal NEGATIVE [facility] Comment on above: Performed By: #### E RUR ####[facility] Ldirqoghrm3289[address] [place], [place] [address]Dr. Abhinav Laguna Hemoglobin Ql (U) Negative Normal NEGATIVE [facility] Comment on above: Performed By: #### E RUR ####[facility] Dphwetcjxg4532 [place] [address]Dr. Abhinav Laguna Ketones Ql (U) Negative Normal NEGATIVE [facility] Comment on above: Performed By: #### E RUR ####[facility] Wyvzqdtlxk9078 [place] [address]Dr. Abhinav Laguna LEUKOCYTES Negative Normal NEGATIVE [facility] Comment on above: Performed By: #### E RUR ####[facility] Qgpzlirtyl[address] [place], [place] [address]Dr. Abhinav Laguna Nitrite Ql (U) Negative Normal NEGATIVE [facility] Comment on above: Performed By: #### E RUR ####[facility] Oatvsxddvj5036[address] [place], [place] [address]Dr. Abhinav Laguna pH (U) 6.5 [pH] Normal 5-9 [facility] Comment on above: Performed By: #### E RUR ####[facility] Adloddoags6183[address] [place], [place] [address]Dr. Abhinav Laguna SPEC GRAVITY 1.010 Normal 1.005-<=1.[address] [place] [address] Comment on above: Performed By: #### E RUR ####[facility] Qdlbutxuqu6871[address] [place], [place] [address]Dr. Abhinav Laguna UA PROTEIN Negative Normal NEGATIVE/ TRACE [facility] Comment on above: Performed By: #### E RUR ####[facility] Acskvyivia6431[address] [place], [place] [address]Dr. Mirandagallo Laguna UR MICRO IND NOT INDICATED Normal [facility] Comment on above: Performed By: #### E RUR ####[facility] Iyndrvmjbd1771[address] [place], [place] [address]Dr. Mirandagallo Laguna Urobilinogen Qn (U) 1.0 {Marshall'U}/dL Normal 0.2 - 1. 0 [facility] Comment on above: Performed By: #### E RUR ####[facility] Gtwiwlquvl55[address] [place], [place] [address]Dr. Abhinav Laguna LACTATE/LACTIC ACIDon 2021 Lactate [Moles/Vol] 1.2 mmol/L Normal 0.4-1.9 [facility] Comment on above: Performed By: #### L ACT ####[facility] Oaeigmukau[address] [place], [place] [address]Dr. Abhinav Laguna Lactate [Moles/Vol] 1.7 mmol/L Normal 0.4-1.9 [facility] Comment on above: Performed By: #### L ACT ####[facility] Seppjydbeq8[address] [place], [place] [address]Dr. Abhinav Laguna PH VENOUS BLOODon 02-08-2022 PCO2 VENOUS 48.3 mmHg Normal 40.0-52.0 [facility] Comment on above: Performed By: #### P HVEN ####[facility] Jtrnjnopzk9[address] [place], [place] [address]Dr. Abhinav Laguna pH VENOUS 7.373 Normal 7.330-7.430 [facility] Comment on above: Performed By: #### P HVEN ####[facility] Ttgedtuwyb69[address] [place], [place] [address]Dr. Abhinav Laguna POINT OF CARE GLUCOSEon 01-16 Glucose [Mass/Vol] 198 mg/dL Critically high 74-106 [facility] Comment on above: Performed By: #### P OCGLUC ####[facility] Rolmjuuimj4723[address] [place], [place] [address]Dr. Abhinav Laguna Glucose [Mass/Vol] 303 mg/dL Critically high -106 [facility] Comment on above: Performed By: #### P OCGLUC ####[facility] Ngmiquxpvj6134[address] [place], [place] [address]Dr. Abhinav Laguna Glucose [Mass/Vol] 503 mg/dL Critically high -106 [facility] Comment on above: Result Comment: Will Repeat Test Performed By: #### P OCGLUC ####[facility] Vxdbeaaaic15[address] [place], [place] [address]Dr. Abhinav Laguna Glucose [Mass/Vol] 538 mg/dL Critically high 74-106 [facility] Comment on above: Result Comment: Prev iously Confirmed Performed By: #### P OCGLUC ####[facility] Pfyqfmgbfm[address] [place] [id number]. Abhinav Laguna Glucose [Mass/Vol] 594 mg/dL Critically high 74-106 [facility] Comment on above: Result Comment: Will Repeat Test Performed By: #### P OCGLUC ####[facility] [address]uctfy[address] [place] [address]Dr. Abhinav Laguna POCGLUC >600 Critically high 74-106 [facility] Comment on above: Result Comment: Resu lt Not Confirmed Performed By: #### P OCGLUC ####[facility] Pebpewzbze[address] [place] [address]Dr. Abhinav Laguna PROF 14(COMP METB)on 022 Albumin [Mass/Vol] 3.5 g/dL Normal 3.4-5.0 [facility] Comment on above: Performed By: #### C MP ####[facility] Zceciyydkx[address] [place], [place] [address]Dr. Abhinav Laguna Albumin/Globulin [Mass ratio] 0.9 {ratio} Normal [facility] Comment on above: Performed By: #### C MP ####[facility] Ixjngumrua[address] [place], [place] [address]Dr. Abhinav Laguna ALP [Catalytic activity/Vol] 420 U/L Critically high 46-116 [facility] Comment on above: Performed By: #### C MP ####[facility] Uem[address]forog[address] [place] [address]Dr. Abhinav Laguna ALT [Catalytic activity/Vol] 44 U/L Normal 16-63 [facility] Comment on above: Performed By: #### C MP ####[facility] Sxlgcsvqsw49[address] [place] [address]Dr. Abhinav Laguna Anion gap [Moles/Vol] 13.5 mmol/L Normal [facility] Comment on above: Performed By: #### C MP ####[facility] Sxjmvkovfu26[address] [place] [address]Dr. Abhinav Laguna AST [Catalytic activity/Vol] 18 U/L Normal 15-37 [facility] Comment on above: Performed By: #### C MP ####[facility] Edhxnzcojf12[address] [place], [place] [address]Dr. Abhinav Laguna Bilirubin [Mass/Vol] 0.6 mg/dL Normal 0.2-1.0 [facility] Comment on above: Performed By: #### C MP ####[facility] Lglfbxerif15[address] [place], [place] [address]Dr. Abhinav Laguna Calcium [Mass/Vol] 9.8 mg/dL Normal 8.5-10.1 [facility] Comment on above: Performed By: #### C MP ####[facility] Kaueaehhfa05[address] [place], [place] [address]Dr. Abhinav Laguna Chloride [Moles/Vol] 90 mmol/L Critically low 98-107 [facility] Comment on above: Performed By: #### C MP ####[facility] Yiuixlfjnr6[address] [place], [place] [address]Dr. Abhinav Laguna CO2 [Moles/Vol] 26.7 mmol/L Normal 21.0-32.0 [facility] Comment on above: Performed By: #### C MP ####[facility] Xorbfvkafg69[address] [place], [place] [address]Dr. Abhinav Laguna Creatinine [Mass/Vol] 1.12 mg/dL Normal 0.70-1.30 [facility] Comment on above: Performed By: #### C MP ####[facility] Kutlevkdxt[address] [place], [place] [address]Dr. Abhinav Jase EGFR-AF MAURITANIAN >60 Normal >=60 [facility] Comment on above: Performed By: #### C MP ####[facility] Nstcskhkmv39[address] [place], [place] [address]Dr. Abhinav Laguna EGFR-NON AF MAURITANIAN >60 Normal >=60 [facility] Comment on above: Performed By: #### C MP ####[facility] Pfvltsirqe3954[address] [place], [place] [address]Dr. Abhinav Laguna Globulin (S) [Mass/Vol] 3.8 g/dL Normal [facility] Comment on above: Performed By: #### C MP ####[facility] Toqnozmkos39[address] [place] [address]Dr. Abhinav Laguna Glucose [Mass/Vol] 756 mg/dL Critically high 74-106 [facility] Comment on above: Performed By: #### C MP ####[facility] Lqwxlixnrh9221 [place] [address]Dr. Abhinav Laguna Potassium [Moles/Vol] 5.2 mmol/L Critically high 3.5-5.1 [facility] Comment on above: Performed By: #### C MP ####[facility] Ihfgjutylw8[address] [place], [place] [address]Dr. Abhinav Laguna Protein [Mass/Vol] 7.3 g/dL Normal 6.4-8.2 [facility] Comment on above: Performed By: #### C MP ####[facility] Hmqyyyuqdo[address] [place], [place] [address]Dr. Abhinav Laguna Sodium [Moles/Vol] 125 mmol/L Critically low 136-145 [facility] Comment on above: Performed By: #### C MP ####[facility] Vupivsnzzm3046[address] [place], [place] [address]Dr. Abhinav Laguna Urea nitrogen [Mass/Vol] 18.0 mg/dL Normal 7.0-18.0 [facility] Comment on above: Performed By: #### C MP ####[facility] Dvtbfeeega35[address] [place], [place] [address]Dr. Abhinav Laguna Urea nitrogen/Creatinine [Mass ratio] 16.1 mg/mg Normal [facility] Comment on above: Performed By: #### C MP ####[facility] Rtwjolqdbh4[address] [place], [place] [address]Dr. Abhinav Laguna CBC AUTO DIFFon 12-19-2021 BASO # 0.1 103/ul Normal 0.0-0.1 [facility] Comment on above: Performed By: #### C BC ####[facility] Xngsjjfgkp[address] [place], [place] [address]Dr. Abhinav Laguna Basophils/100 WBC (Bld) 0.7 % Normal 0.2-2.0 [facility] Comment on above: Performed By: #### C BC ####[facility] Fnjynksthj24[address] [place] [id number]. Abhinav Laguna EO # 0.3 103/ul Normal 0.0-0.7 [facility] Comment on above: Performed By: #### C BC ####[facility] Vlpfkbzwts1902 [place] [id number]. Abhinav Laguna Eosinophils/100 WBC (Bld) 3.5 % Normal 0.9-7.0 [facility] Comment on above: Performed By: #### C BC ####[facility] Wfbkbmivyj2912[address] [place], [place] [address]Dr. Abhinav Laguna Erythrocyte distribution width (RBC) [Ratio] 12.2 % Normal 11.0-15.0 [facility] Comment on above: Performed By: #### C BC ####[facility] Wwaqrpklve8374[address] [place], [place] [address]Dr. Abhinav Laguna Hematocrit (Bld) [Volume fraction] 44.0 % Normal 42.0-54.0 [facility] Comment on above: Performed By: #### C BC ####[facility] Bixjycysbt8313[address] [place], [place] [address]Dr. Abhinav Laguna Hemoglobin (Bld) [Mass/Vol] 15.4 g/dL Normal 14.0-18.0 [facility] Comment on above: Performed By: #### C BC ####[facility] Nbxhfspteo76[address] [place], [place] [address]Dr. Abhinav Laguna IG # 0.02 10e3/ul Normal 0.00-0.03 [facility] Comment on above: Performed By: #### C BC ####[facility] Xijkbbbvip080[address] [place], [place] [address]Dr. Abhinav Laguna IG % 0.2 % Normal 0.0-0.5 [facility] Comment on above: Performed By: #### C BC ####[facility] Jpyrhvifju232[address] [place], [place] [address]Dr. Abhinav Laguna LYMPH # 3.0 103/ul Normal 1.2-3.8 [facility] Comment on above: Performed By: #### C BC ####[facility] Ymwoxtrtwb027[address] [place] [id number]. Abhinav Jase Lymphocytes/100 WBC (Bld) 34.8 % Normal 20.5-60.0 [facility] Comment on above: Performed By: #### C BC ####[facility] Aqpozbzjer4196 [place] [id number]. Mirandagallo Laguna MANUAL DIFF REQ NO Normal [facility] Comment on above: Performed By: #### C BC ####[facility] Goiybmptqg5983 [place] [id number]. Mirandagallo Laguna MCH (RBC) [Entitic mass] 30.6 pg Normal 25.9-34.0 [facility] Comment on above: Performed By: #### C BC ####[facility] Vjbsnomkhg6196 [place] [address]Dr. Abhinav Jase MCHC (RBC) [Mass/Vol] 35.0 g/dL Normal 29.9-35.2 [facility] Comment on above: Performed By: #### C BC ####[facility] Ifuvnbsjhf1303 [place] [id number]. Mirandagallo Laguna MCV (RBC) [Entitic vol] 87.5 fL Normal 80.0-94.0 [facility] Comment on above: Performed By: #### C BC ####[facility] Mvuogbvrao6177 [place] [address]Dr. Abhinav Laguna MONO # 0.7 103/ul Normal 0.3-0.8 [facility] Comment on above: Performed By: #### C BC ####[facility] Edktbcyvmm1989 [place] [id number]. Mirandagallo Laguna Monocytes/100 WBC (Bld) 8.0 % Normal 1.7-12.0 [facility] Comment on above: Performed By: #### C BC ####[facility] Rvspymfhxx[address] [place], [place] [address]Dr. Abhinav Laguna NEUT # 4.5 103/ul Normal 1.4-6.5 [facility] Comment on above: Performed By: #### C BC ####[facility] Mggwdohgzw4506 [place] [id number]. Abhinav Laguna Neutrophils/100 WBC (Bld) 52.8 % Normal 43.0-75.0 [facility] Comment on above: Performed By: #### C BC ####[facility] Gagdqoifnp5543 [place] [id number]. Abhinav Laguna Platelet mean volume (Bld) [Entitic vol] 11.1 fL Normal 9.5-13.5 [facility] Comment on above: Performed By: #### C BC ####[facility] Rrdrhalhvh2173 [place] [id number]. Mirandagallo Jase PLT 253 103/ul Normal 150-450 [facility] Comment on above: Performed By: #### C BC ####[facility] Dakecoevtl5994 [place] [address]Dr. Abhinav Laguna RBC 5.03 106/ul Normal 4.70-6.10 [facility] Comment on above: Performed By: #### C BC ####[facility] Mzdkxwtmkp9144 [place] [id number]. Abhinav Jase WBC 8.6 103/ul Normal 4.0-11.0 [facility] Comment on above: Performed By: #### C BC ####[facility] Cpdjsmjbmb1854 [place] [address]Dr. Abhinav Laguna PROF 14(COMP METB)on 022 Albumin [Mass/Vol] 2.8 g/dL Critically low 3.4-5.0 [facility] Comment on above: Performed By: #### C MP ####[facility] Lpaemupppg0064 [place] [id number]. Abhinav Laguna Albumin/Globulin [Mass ratio] 0.9 {ratio} Normal [facility] Comment on above: Performed By: #### C MP ####[facility] Cmvcqsrsdb2461 [place] [address]Dr. Abhinav Laguna ALP [Catalytic activity/Vol] 146 U/L Critically high 46-116 [facility] Comment on above: Performed By: #### C MP ####[facility] Xwoszshajj5345 [place] [id number]. Abhinav Laguna ALT [Catalytic activity/Vol] 47 U/L Normal 16-63 [facility] Comment on above: Performed By: #### C MP ####[facility] Afqraajgbw7698[address] [place], [place] [address]Dr. Abhinav Laguna Anion gap [Moles/Vol] 7.8 mmol/L Normal [facility] Comment on above: Performed By: #### C MP ####[facility] Rjmwuifldd2282[address] [place], [place] [address]Dr. Abhinav Laguna AST [Catalytic activity/Vol] 22 U/L Normal 15-37 [facility] Comment on above: Performed By: #### C MP ####[facility] Ijqbjyeypy7741[address] [place], [place] [address]Dr. Abhinav Laguna Bilirubin [Mass/Vol] 0.4 mg/dL Normal 0.2-1.0 [facility] Comment on above: Performed By: #### C MP ####[facility] Fmswlafbvq3034[address] [place], [place] [address]Dr. Abhinav Laguna Calcium [Mass/Vol] 8.8 mg/dL Normal 8.5-10.1 [facility] Comment on above: Performed By: #### C MP ####[facility] Ggbosmeshi8545[address] [place], [place] [address]Dr. Abhinav Laguna Chloride [Moles/Vol] 103 mmol/L Normal 98-107 [facility] Comment on above: Performed By: #### C MP ####[facility] Bqrxouvgtz3443[address] [place], [place] [address]Dr. Abhinav Laguna CO2 [Moles/Vol] 25.7 mmol/L Normal 21.0-32.0 [facility] Comment on above: Performed By: #### C MP ####[facility] Nhibttcppw5284[address] [place], [place] [address]Dr. Abhinav Laguna Creatinine [Mass/Vol] 0.79 mg/dL Normal 0.70-1.30 [facility] Comment on above: Performed By: #### C MP ####[facility] Ovzsyqeiqe9370 [place] [id number]. Abhinav Laguna EGFR-AF MAURITANIAN >60 Normal >=60 [facility] Comment on above: Performed By: #### C MP ####[facility] Ysbyihksdx1067 [place] [address]Dr. Abhinav Laguna EGFR-NON AF MAURITANIAN >60 Normal >=60 [facility] Comment on above: Performed By: #### C MP ####[facility] Pupxsfbokg[address] [place], [place] [id number]. Abhinav Jase Globulin (S) [Mass/Vol] 3.1 g/dL Normal [facility] Comment on above: Performed By: #### C MP ####[facility] Fvwpgojbnk9525[address] [place], [place] [address]Dr. Abhinav Jase Glucose [Mass/Vol] 194 mg/dL Critically high 74-106 [facility] Comment on above: Performed By: #### C MP ####[facility] Qyfaevsdhy2263[address] [place], [place] [address]Dr. Abhinav Jase Potassium [Moles/Vol] 3.5 mmol/L Normal 3.5-5.1 [facility] Comment on above: Performed By: #### C MP ####[facility] Jqcekhyzlg029[address] [place], [place] [address]Dr. Abhinav Jase Protein [Mass/Vol] 5.9 g/dL Critically low 6.1-8.2 [facility] Comment on above: Performed By: #### C MP ####[facility] Gqyckwblxv[address] [place], [place] [address]Dr. Abhinav Jase Sodium [Moles/Vol] 133 mmol/L Critically low 136-145 Th [facility] Comment on above: Performed By: #### C MP ####[facility] Mzotxiggwp7689[address] [place], [place] [address]Dr. Abhinav Jase Urea nitrogen [Mass/Vol] 11.0 mg/dL Normal 7.0-18.0 [facility] Comment on above: Performed By: #### C MP ####[facility] Dcibicjqmh9506[address] [place], [place] [address]Dr. Abhinav Laguna Urea nitrogen/Creatinine [Mass ratio] 13.9 mg/mg Normal [facility] Comment on above: Performed By: #### C MP ####[facility] Ttpdlwhpaf8918[address] [place], [place] [address]Dr. Abhinav Jase ACETONE SERUMon 12-18-2021 ACETONE SMALL Abnormal NEGATIVE [facility] Comment on above: Performed By: #### A CETON ####[facility] Ixkywvrpkn3164[address] [place], [place] [address]Dr. Abhinav Jase CBC AUTO DIFFon 12-18-2021 BASO # 0.1 103/ul Normal 0.0-0.1 [facility] Comment on above: Performed By: #### C BC ####[facility] Ipkxriuuzj539[address] [place], [place] [address]Dr. Abhinav Laguna Basophils/100 WBC (Bld) 0.8 % Normal 0.2-2.0 [facility] Comment on above: Performed By: #### C BC ####[facility] Bkcwvgokpj[address] [place], [place] [address]Dr. Abhinav Jase EO # 0.2 103/ul Normal 0.0-0.7 [facility] Comment on above: Performed By: #### C BC ####[facility] Kyretqmtms[address] [place], [place] [address]Dr. Mirandagallo Laguna Eosinophils/100 WBC (Bld) 1.6 % Normal 0.9-7.0 [facility] Comment on above: Performed By: #### C BC ####[facility] Bweeyzddak727[address] [place], [place] [address]Dr. Mirandagallo Jase Erythrocyte distribution width (RBC) [Ratio] 12.2 % Normal 11.0-15.0 [facility] Comment on above: Performed By: #### C BC ####[facility] Omtifncjnh0766[address] [place], [place] [address]Dr. Mirandagallo Jase Hematocrit (Bld) [Volume fraction] 47.9 % Normal 42.0-54.0 [facility] Comment on above: Performed By: #### C BC ####[facility] Cmvsmgrrmm5854[address] [place], [place] [address]Dr. Abhinav Laguna Hemoglobin (Bld) [Mass/Vol] 17.3 g/dL Normal 14.0-18.0 [facility] Comment on above: Performed By: #### C BC ####[facility] [address]zywzjnot[address]70 [place] [address]Dr. Abhinav Laguna IG # 0.03 10e3/ul Normal 0.00-0.03 [facility] Comment on above: Performed By: #### C BC ####[facility] Zgoievvxof1797 [place] [address]Dr. Abhinav Laguna IG % 0.3 % Normal 0.0-0.5 [facility] Comment on above: Performed By: #### C BC ####[facility] Emgbmivwbf9368[address] [place], [place] [address]Dr. Abhinav Laguna LYMPH # 1.7 103/ul Normal 1.2-3.8 [facility] Comment on above: Performed By: #### C BC ####[facility] Qtgvkbsoeo1129[address] [place], [place] [address]Dr. Abhinav Laguna Lymphocytes/100 WBC (Bld) 18.9 % Critically low 20.5-60.0 [facility] Comment on above: Performed By: #### C BC ####[facility] Pscqayarby5214[address] [place], [place] [address]Dr. Abhinav Laguna MANUAL DIFF REQ NO Normal [facility] Comment on above: Performed By: #### C BC ####[facility] Subiuucwhx8359[address] [place], [place] [address]Dr. Abhinav Laguna MCH (RBC) [Entitic mass] 31.2 pg Normal 25.9-34.0 [facility] Comment on above: Performed By: #### C BC ####[facility] Cgemgngzsz1562[address] [place], [place] [address]Dr. Abhinav Laguna MCHC (RBC) [Mass/Vol] 36.1 g/dL Critically high 29.9-35.2 [facility] Comment on above: Performed By: #### C BC ####[facility] Rdcilwqzvg56[address] [place], [place] [address]Dr. Abhinav Laguna MCV (RBC) [Entitic vol] 86.5 fL Normal 80.0-94.0 [facility] Comment on above: Performed By: #### C BC ####[facility] Solffisdqi4455[address] [place], [place] [address]DrNohemi Abhinav Laguna MONO # 0.5 103/ul Normal 0.3-0.8 [facility] Comment on above: Performed By: #### C BC ####[facility] Lbnirozvpn6[address] [place], [place] [address]DrNohemi Abhinav Jase Monocytes/100 WBC (Bld) 5.6 % Normal 1.7-12.0 [facility] Comment on above: Performed By: #### C BC ####[facility] Aoxsiwkcex0102[address] [place], [place] [address]DrNohemi Abhinav Laguna NEUT # 6.6 103/ul Critically high 1.4-6.5 [facility] Comment on above: Performed By: #### C BC ####[facility] Eqoacqvgza1364[address] [place], [place] [address]Dr. Abhinav Jase Neutrophils/100 WBC (Bld) 72.8 % Normal 43.0-75.0 [facility] Comment on above: Performed By: #### C BC ####[facility] Xthtdogphb[address] [place], [place] [address]DrNohemi Jeangallo Jase Platelet mean volume (Bld) [Entitic vol] 11.3 fL Normal 9.5-13.5 [facility] Comment on above: Performed By: #### C BC ####[facility] Zcejiyihuu[address] [place], [place] [address]Dr. Mirandagallo Jase PLT 278 103/ul Normal 150-450 [facility] Comment on above: Performed By: #### C BC ####[facility] Jsydilllrt5766[address] [place], [place] [address]DrNohemi Laguna RBC 5.54 106/ul Normal 4.70-6.10 [facility] Comment on above: Performed By: #### C BC ####[facility] Plbvzhzvof8072[address] [place], [place] [address]DrNohemi Laguna WBC 9.1 103/ul Normal 4.0-11.0 [facility] Comment on above: Performed By: #### C BC ####[facility] Fehqz[address]raz65[address] [place], [place] [address]Yy. Abhinav Laguna Covid-19 PCR (CVDTB)on SARS-CoV-2 (COVID-19) RNA EVERT+probe Ql (Unsp spec) Not detected Normal NOT DETECTED [facility] Comment on above: Result Comment: When diagnostic testing is negative, the possibility of a false negative should be considered inthe context of a patient's recent exposures and the presence of clinical signs and symptomsconsistent with SARS-CoV-2.This test is not yet approved or cleared by the [place] Food and Drug Administration (FDA).This test was developed by [employer], [place], [place]. The performance characteristics ofthis test were validated by The [facility]. The results are not intended to beused as the sole means for clinical diagnosis or patient management decisions. The [facility] is authorized under Clinical Laboratory Improvement Amendments (CLIA) to perform high-complexity testing.This test is not yet approved or cleared by the [place] FDA. When there are no FDA-approved or cleared tests available, and other criteria are met, FDA can make tests available under an emergency access mechanism called an Emergency Use Authorization (EUA). The EUA for this test is supported by the Hundred of Health and Human Service's declaration that [...] be used). Performed By: #### C VDTBH ####[facility] Yngtqwexbv29[address] [place], [place] [address]IjNohemi Abhinav Jase ER URINE PROFILEon 2 Bilirubin Ql (U) Negative Normal NEGATIVE [facility] Comment on above: Performed By: #### E RUR ####[facility] Oglovnzjzu3672 [place], [place] [address]XvNohemi Laguna Clarity (U) CLEAR Normal CLEAR [facility] Comment on above: Performed By: #### E RUR ####[facility] Lhhvcdklzj[address] [place], [place] [address]Dr. Abhinav Laguna Color (U) LT. YELLOW Normal YELLOW [facility] Comment on above: Performed By: #### E RUR ####[facility] Xeofvmumhb99[address] [place], [place] [address]Dr. Abhinav Laguna ERUAHD A micrscopic examina tion will be performed if indicated. Normal [facility] Comment on above: Performed By: #### E RUR ####[facility] Eugxosxkmu[address] [place], [place] [address]Dr. Abhinav Laguna Glucose Ql (U) >1000 Abnormal NEGATIVE [facility] Comment on above: Performed By: #### E RUR ####[facility] Ujnroqzwif9664[address] [place], [place] [address]Dr. Abhinav Laguna Hemoglobin Ql (U) Negative Normal NEGATIVE [facility] Comment on above: Performed By: #### E RUR ####[facility] Btwytxqikk7[address] [place], [place] [address]Dr. Abhinav Laguna Ketones Ql (U) TRACE Abnormal NEGATIVE [facility] Comment on above: Performed By: #### E RUR ####[facility] [facility] [id number] [place], [place] [address]Dr. Abhinav Laguna LEUKOCYTES Negative Normal NEGATIVE [facility] Comment on above: Performed By: #### E RUR ####[facility] [address] [place], [place] [address]Dr. Abhinav Laguna Nitrite Ql (U) Negative Normal NEGATIVE [facility] Comment on above: Performed By: #### E RUR ####[facility] Cppynrupcj[address] [place], [place] [address]Dr. Abhinav Laguna pH (U) 6.5 [pH] Normal 5-9 [facility] Comment on above: Performed By: #### E RUR ####[facility] [address] [place], [place] [address]Dr. Abhinav Laguna SPEC GRAVITY <=1.005 Abnormal 1.005-<=1.0 25 [facility] Comment on above: Performed By: #### E RUR ####[facility] [address] [place] [address]Dr. Abhinav Laguna UA PROTEIN Negative Normal NEGATIVE/ TRACE [facility] Comment on above: Performed By: #### E RUR ####[facility] [address] [place] [address]Dr. Abhinav Laguna UR MICRO IND NOT INDICATED Normal [facility] Comment on above: Performed By: #### E RUR ####[facility] [address]xvc[address] [place] [address]Dr. Abhinav Laguna Urobilinogen Qn (U) 0.2 {Marshall'U}/dL Normal 0.2 - 1. 0 [facility] Comment on above: Performed By: #### E RUR ####[facility] [address]onvvhsz[address] [place], [place] [address]Dr. Abhinav Laguna PH VENOUS BLOODon 12-18-2021 PCO2 VENOUS 45.4 mmHg Normal 40.0-52.0 [facility] Comment on above: Performed By: #### P HVEN ####[facility] [address] [place], [place] [address]Dr. Abhinav Laguna pH VENOUS 7.385 Normal 7.330-7.430 [facility] Comment on above: Performed By: #### P HVEN ####[facility] T[address]qkv[address] [place], [place] [address]Dr. Abhinav Laguna POINT OF CARE GLUCOSEon 05-0 Glucose [Mass/Vol] 363 mg/dL Critically high 74-106 [facility] Comment on above: Performed By: #### P OCGLUC ####[facility] [address]tr[address] [place], [place] [address]Dr. Abhinav Laguna Glucose [Mass/Vol] 453 mg/dL Critically high 74-106 [facility] Comment on above: Performed By: #### P OCGLUC ####[facility] Ir[address]ekfxfu[address] [place], [place] [address]Dr. Abhinav Laguna Glucose [Mass/Vol] 444 mg/dL Critically high 74-106 [facility] Comment on above: Performed By: #### P OCGLUC ####[facility] [address] [place] [address]Dr. Abhinav Laguna Glucose [Mass/Vol] 462 mg/dL Critically high 74-106 [facility] Comment on above: Performed By: #### P OCGLUC ####[facility] [address] [place] [address]Dr. Abhinav Laguna POCGLUC >600 Critically high 74-106 [facility] Comment on above: Result Comment: Lab Draw Ordered Performed By: #### P OCGLUC ####[facility] [address] [place] [address]Dr. Abhinav Laguna POCGLUC >600 Critically high 74-106 [facility] Comment on above: Result Comment: Lab Draw Ordered Performed By: #### P OCGLUC ####[facility] Phrejk[address]pv[address] [place], [place] [address]Dr. Abhinav Laguna PROF 14(COMP METB)on 022 Albumin [Mass/Vol] 3.4 g/dL Normal 3.4-5.0 [facility] Comment on above: Performed By: #### C MP ####[facility] Jewgfpwrep[address] [place], [place] [address]Dr. Abhinav Laguna Albumin/Globulin [Mass ratio] 0.9 {ratio} Normal [facility] Comment on above: Performed By: #### C MP ####[facility] Ciauizenid[address] [place], [place] [address]Dr. Abhinav Laguna ALP [Catalytic activity/Vol] 268 U/L Critically high 46-116 [facility] Comment on above: Performed By: #### C MP ####[facility] Vuqlbulfda[address] [place], [place] [address]Dr. Abhinav Laguna ALT [Catalytic activity/Vol] 56 U/L Normal 16-63 [facility] Comment on above: Performed By: #### C MP ####[facility] Xotynnjsdh[address] [place], [place] [address]Dr. Abhinav Laguna Anion gap [Moles/Vol] 7.7 mmol/L Normal [facility] Comment on above: Performed By: #### C MP ####[facility] Ikfpfpqrcc[address] [place], [place] [address]Dr. Abhinav Laguna AST [Catalytic activity/Vol] 20 U/L Normal 15-37 [facility] Comment on above: Performed By: #### C MP ####[facility] Nfgiljve[address] [place], [place] [address]Dr. Abhinav Laguna Bilirubin [Mass/Vol] 0.7 mg/dL Normal 0.2-1.0 [facility] Comment on above: Performed By: #### C MP ####[facility] Qidyiiauit32[address] [place], [place] [address]Dr. Abhinav Laguna Calcium [Mass/Vol] 9.9 mg/dL Normal 8.5-10.1 [facility] Comment on above: Performed By: #### C MP ####[facility] [address]utlw[address] [place], [place] [address]Dr. Abhinav Laguna Chloride [Moles/Vol] 91 mmol/L Critically low 98-107 [facility] Comment on above: Performed By: #### C MP ####[facility] [address] [place], [place] [address]Dr. Abhinav Laguna CO2 [Moles/Vol] 28.0 mmol/L Normal 21.0-32.0 [facility] Comment on above: Performed By: #### C MP ####[facility] [address]jmz[address] [place], [place] [address]Dr. Abhinav Laguna Creatinine [Mass/Vol] 1.15 mg/dL Normal 0.70-1.30 [facility] Comment on above: Performed By: #### C MP ####[facility] Afppjnaagu[address] [place], [place] [address]Dr. Mirandagallo Jase EGFR-AF MAURITANIAN >60 Normal >=60 [facility] Comment on above: Performed By: #### C MP ####[facility] [address] [place], [place] [address]Dr. Abhinav Laguna EGFR-NON AF MAURITANIAN >60 Normal >=60 [facility] Comment on above: Performed By: #### C MP ####[facility] [address] [place] [address]Dr. Abhinav Laguna Globulin (S) [Mass/Vol] 3.9 g/dL Normal [facility] Comment on above: Performed By: #### C MP ####[facility] Od[address]verb[address] [place] [id number]. Abhinav Laguna Glucose [Mass/Vol] 640 mg/dL Critically high 74-106 [facility] Comment on above: Performed By: #### C MP ####[facility] [address]iziax[address] [place] [address]Dr. Abhinav Laguna Potassium [Moles/Vol] 4.7 mmol/L Normal 3.5-5.1 [facility] Comment on above: Performed By: #### C MP ####[facility] Hisdsfzbko[address] [place], [place] [address]Dr. Abhinav Laguna Protein [Mass/Vol] 7.3 g/dL Normal 6.1-8.2 [facility] Comment on above: Performed By: #### C MP ####[facility] Rjdksj[address] [place], [place] [address]Dr. Abhinav Laguna Sodium [Moles/Vol] 124 mmol/L Critically low 136-145 Th [facility] Comment on above: Performed By: #### C MP ####[facility] Cygmt[address] [place], [place] [address]Dr. Abhinav Laguna Urea nitrogen [Mass/Vol] 17.0 mg/dL Normal 7.0-18.0 [facility] Comment on above: Performed By: #### C MP ####[facility] [address] [place], [place] [address]Dr. Abhinav Laguna Urea nitrogen/Creatinine [Mass ratio] 14.8 mg/mg Normal [facility] Comment on above: Performed By: #### C MP ####[facility] [address] [place] [address]Dr. Abhinav Jase Vital Signs Date Time Vital Sign Value Performing Clinician Ervin hoffman 03-03-2023 01:00-0400 Diastolic blood pressure 98 mm[Hg] MD Zachariah Saldaña Jr Work Phone: [facility] 03-03-2023 01:00-0400 Heart rate 74 /min MD Zachariah Saldaña Jr Work Phone: [facility] 03-03-2023 01:00-0400 Respiratory rate 12 /min MD Zachariah Saldaña Jr Work Phone: [facility] 03-03-2023 01:00-0400 SaO2% (BldA) [Mass fraction] 95 % MD Zachariah Saldaña Jr Work Phone: [facility] 03-03-2023 01:00-0400 Systolic blood pressure 144 mm[Hg] MD Zachariah Saldaña Jr Work Phone: [facility] 03-02-2023 21:22-0400 Body height 180.34 cm MD Zachariah Saldaña Jr Work Phone: [facility] 03-02-2023 21:22-0400 Body weight 72.2 kg MD Zachariah Saldaña Jr Work Phone: [facility] 03-02-2023 20:24-0400 Body temperature 98.9 [degF] MD Zachariah Saldaña Jr Work Phone: [facility] Encounters Encounter Date Encounter Type Care Provider Facility Start: 03-24-2023 ambulatory NON STAFF Facility:[facility] Start: 03-03-2023 End: 03-10-2023 Evaluation and management of inpatient Devin Starks Facility:[facility] Start: 03-02-2023 Evaluation and management of inpatient MD Zachariah Saldaña Jr Work Phone: [facility] Work Phone: Start: 12-08-2022 End: [...] on above: Result Comment: PERF ORMED BY: [facility] [address] [place] [address] PATHOLOGIST HANDS AND DIAL INSPECTOR DEONNA COURTNEY M.D. Start: 03-02-2023 Computed tomography [...] Activity Detail Author Start: 03-03-2023 Hospital admission [facility] Start: 03-02-2023 Plain chest X-ray XR chest 1V portab le [facility] Start: 03-02-2023 XR Chest Single view Fi [facility] Start: 12-15-2022 ambulatory Facility: 1 Payers Date Payer Category Payer Self-pay [id number] 1960 Unknown [id number] 2.16. [id number] 1960 Unknown [id number] 2.16.84 0.1.715837.3.579.2.593 1960 Unknown [id number] 2.16.84 0.1.865633.3.579.2.593 1960 Unknown [id number] 2.16.84 0.1.171930.3.579.2.593 1960 Unknown [id number] 2.16.84 0.1.407342.3.579.2.593 1960 Unknown [id number] 2.16.84 0.1.056370.3.579.2.593 1960 Unknown [id number] 2.16.84 0.1.786307.3.579.2.593 1960 Unknown [id number] 2.16.84 0.1.786587.3.579.2.593 1960 Unknown [id number] 2.16.84 0.1.897259.3.579.2.593 1960 Unknown [id number] 2.16.84 0.1.601979.3.579.2.593 1960 Unknown [id number] 2.16.84 0.1.218970.3.579.2.593 1960 Unknown [id number] 2.16.84 0.1.556796.3.579.2.593 1960 Unknown [id number] 2.16.84 0.1.106420.3.579.2.593 1960 Unknown [id number] 2.16.84 0.1.086811.3.579.2.593 1960 Unknown [id number] 2.16.84 0.1.387944.3.579.2.593 1960 Unknown [id number] 2.16.84 0.1.474548.3.579.2.593 1960 Unknown [id number] 2.16.84 0.1.231127.3.579.2.593 1959 Medicaid [id number] 1959 Unknown [id number] Unknown [id number] 2.16.8 40.1.364285.3.579.2.531 Unknown [id number] 2.16.8 40.1.424716.3.579.2.531 Social History Date Type Detail Facility Start: 03-21-[facility] Start: 1960 Sex Assigned At Male F [facility] Medical Equipment Procedure Code Equipment Code Equipment Origin al Text Equipment Identifier Dates Kyphoplasty Orthopaedic ceme nt, non-medicated [id number] [facility] Start: 03-21-2020 Clinical Notes Note Date & Type Note Facility Consult note Note Date/Time March 03, 2023 2:16am [facility] [address] [place] [address] Hospitalist Consult Note Signed Patient: Akbar Byrnes MR#: [id number] : 1960 Acct:[id number] Age/Sex: 62 / M Adm Date: 3 Loc: Room: [address] [place] [address] Type: ADM IN Attending Dr: Devin Starks [...] Marijuana Social History Comments: mobile home with [facility] ending this last week per sister [...] 81 Mg Tablet.Dr CONKLIN 03/02/24 08:59 DAILY [facility] Atorvastatin Calcium 40 mg 03/03/23 09:00 Atorvastatin 40 Mg Tablet PO 03/06/23 08:59 DAILY [facility] Cyclobenzaprine HCl 10 mg 03/03/23 01:12 Cyclobenzaprine [...] Units/3 Ml Insuln.Pen SUBCUT 03/02/24 07:59 TID.WM.HS [facility] Protocol Insulin Glargine 40 units 03/03/23 09:00 Insulin Glargine 300 Units/3 Ml Insuln.Pen SUBCUT 03/06/23 08:59 BID [facility] Insulin Glargine 40 units 03/03/23 08:00 Insulin Glargine 300 Units/3 Ml Insuln.Pen SUBCUT 03/02/24 07:59 DAILY.WITH.BKFAST [facility] Insulin Glargine 40 units 03/03/23 17:00 Insulin Glargine 300 Units/3 Ml Insuln.Pen SUBCUT 03/02/24 16:59 DAILY.WITH.SUPPER [facility] Ipratropium [place] 0.5 mg 03/03/23 08:00 Ipratropium [place] 0.5 Mg/2.5 Ml Vial.Neb INHALATION 03/02/24 07:59 [...] 0.4 Mg Cap.Er.24h PO 03/06/23 08:59 DAILY [facility] Exam Physical Exam Vital Signs: Temp Pulse [...] Appearance Clear, Urine pH 6.5, Ur Specific [place] 1.028, Urine Protein Trace H, Urine Glucose [...] % (Auto) 63.6, Lymph % (Auto) 27.3, [place] % (Auto) 6.2, Eos % (Auto) 2.3, Baso % (Auto) 0.6, Nucleat RBC Rel Count 0.2, Neut # (Auto) 5.9, Lymph # (Auto) 2.5, [place] # (Auto) 0.6, Eos # (Auto) 0.2, [...] signed by Bobby Jacobson MD> 03/03/23 0721 [facility] Work Phone: Consult note Author Giuseppe Bailey [facility] March 03, 2023 12:59pm Note Date/Time March 03, 2023 8:29 am [facility] [address] [place] [address] Pulmonology Consult Note Signed Patient: Akbar Byrnes MR#: [id number] : 1960 Acct:[id number] Age/Sex: 62 / M Adm Date: 3 Loc: 4C Room: [address] [place] [address] Type: ADM IN Attending Dr: Devin Starks DO Copies to: NON STAFF MD Devin Sebastian,DO~ HPI Date/Time of Consultation: Date of Service: 03/03/2023 Time of Service: 08:16 Consulting Provider: Giuseppe Bailey Requesting Provider: Devin Starks History of Present Illness History of present illness: Mr. Byrnes is a 62 year old male seen [facility]. Patient was brought [...] Marijuana Social History Comments: mobile home with [facility] ending this last week per sister [...] 03/02/23 CT/CT chest w con: traumatic injury ([id number]) CT/CT abdomen pelvis w con: traumatic injury [...] <Electronically signed by MD Giuseppe Bailey> 03/03/23 8232 [facility] Work Phone: Consult note Author Joon Pascal [facility] March 04, 2023 7:31am Note Date/Time March 04, 2023 7:31 am [facility] [address] [place] [address] Neurosurgery Consult Note Signed Patient: Akbar Byrnes MR#: [id number] : 1960 Acct:[id number] Age/Sex: 62 / M Adm Date: 3 Loc: Room: [address] [place] [address] Type: ADM IN Attending Dr: Devin Starks [...] Marijuana Social History Comments: mobile home with [facility] ending this last week per sister [...] intact and symmetrical 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 Upper extremity sensory normal to [...] % (Auto) 64.8, Lymph % (Auto) 24.8, [place] % (Auto) 7.4, Eos % (Auto) 2.1, Baso % (Auto) 0.9, Nucleat RBC Rel Count 0.2, Neut # (Auto) 8.0 H, Lymph # (Auto) 3.1, [place] # (Auto) 0.9 H, Eos # (Auto) 0.3, Baso # (Auto) 0.1, Platelet Estimate Normal, Plt Morphology Comment Normal, RBC Morphology N/A, Polychromasia Slight, Hypochromasia Slight, Ovalocytes Slight 03/03/23 01:42: POC Glucose 312 03/02/23 21:25: Urine Color Yellow, Urine Appearance Clear, Urine pH 6.5, Ur Specific [place] 1.028, Urine Protein Trace H, Urine Glucose [...] % (Auto) 63.6, Lymph % (Auto) 27.3, [place] % (Auto) 6.2, Eos % (Auto) 2.3, Baso % (Auto) 0.6, Nucleat RBC Rel Count 0.2, Neut # (Auto) 5.9, Lymph # (Auto) 2.5, [place] # (Auto) 0.6, Eos # (Auto) 0.2, [...] signed by MD Joon Pascal> 03/04/23 0731 [facility] Work Phone: Evaluation noteNo assessment information available [facility] Work Phone: History and physical note Author Devin Starks [facility] March 03, 2023 7:55am Note Date/Time March 03, 2023 7:49 am [facility] [address] [place] [address] General Surgery H&P Signed Patient: Akbar Byrnes MR#: [id number] : 1960 Acct:[id number] Age/Sex: 62 / M Adm Date: 3 Loc: Room: [address] [place] [address] Type: ADM IN Attending Dr: Devin Starks [...] negative unless noted below or in HPI [facility] for [facility] Unknown Medical History (Updated [...] Marijuana Social History Comments: mobile home with [facility] ending this last week per sister [...] % (Auto) 64.8, Lymph % (Auto) 24.8, [place] % (Auto) 7.4, Eos % (Auto) 2.1, Baso % (Auto) 0.9, Nucleat RBC Rel Count 0.2, Neut # (Auto) 8.0 H, Lymph # (Auto) 3.1, [place] # (Auto) 0.9 H, Eos # (Auto) 0.3, Baso # (Auto) 0.1, Platelet Estimate Normal, Plt Morphology Comment Normal, RBC Morphology N/A, Polychromasia Slight, Hypochromasia Slight, Ovalocytes Slight 03/03/23 01:42: POC Glucose 312 03/02/23 21:25: Urine Color Yellow, Urine Appearance Clear, Urine pH 6.5, Ur Specific [place] 1.028, Urine Protein Trace H, Urine Glucose [...] % (Auto) 63.6, Lymph % (Auto) 27.3, [place] % (Auto) 6.2, Eos % (Auto) 2.3, Baso % (Auto) 0.6, Nucleat RBC Rel Count 0.2, Neut # (Auto) 5.9, Lymph # (Auto) 2.5, [place] # (Auto) 0.6, Eos # (Auto) 0.2, [...] signed by DO Devin Starks> 03/03/23 0755 [facility] Work Phone: Progress note Author Fermin Rodríguez [facility] March 03, 2023 11:48am Note Date/Time March 03, 2023 11:4 0am [facility] [address] [place], [place] [id number] Progress Note Signed Patient: Akbar Byrnes MR#: [id number] : 1960 Acct:[id number] Age/Sex: 62 / M Adm Date: 3 Loc: 4C Room: 7D5652-6 Type: ADM IN Attending Dr: Devin Starks [...] <Electronically signed by Fermin Rodríguez DO> 03/03/23 1141 [facility] Work Phone: Progress note Author Giuseppe Bailey [facility] March 04, 2023 8:11pm Note Date/Time March 04, 2023 7:26 am [facility] [address] [place] [address] Pulmonology Progress Note Signed Patient: Akbar Byrnes MR#: [id number] : 1960 Acct:[id number] Age/Sex: 62 / M Adm Date: 3 Loc: 4C Room: 7F1577-0 Type: ADM IN Attending Dr: Devin Starks [...] the pneumothorax. Documented By: Giuseppe Bailey MD 3 [id number] Signed By: <Electronically signed by MD Giuseppe Bailey> 03/04/232010 [facility] Work Phone: Progress note Author Devin Starks [facility] March 04, 2023 8:54am Note Date/Time March 04, 2023 8:54 am [facility] [address] [place] [address] General Surgery Progress Note Signed Patient: Akbar Byrnes MR#: [id number] : 1960 Acct:[id number] Age/Sex: 62 / M Adm Date: 3 Loc: Room: [address] [place] [address] Type: ADM IN Attending Dr: Devin Starks [...] he is amenable to going to a half-way facility. He has not complained of any [...] Mg/0.4 Ml Syringe) 40 mg SUBCUT DAILY@1000 [facility] Stop: 03/02/24 09:59 Last Admin: 03/03/23 10:07 Dose: 40 mg Famotidine (Famotidine/Pf 20 Mg/2 Ml Vial) 20 mg IV-PUSH Q12HR [facility] Stop: 03/02/24 08:59 Last Admin: 03/04/23 08:46 Dose: 20 mg Glipizide (Glipizide 5 Mg Tablet) 10 mg PO DAILY.8A [facility] Stop: 03/07/23 07:59 Glucose (Dextrose 40% Gel [...] Units/3 Ml Insuln.Pen) 40 units SUBCUT DAILY.WITH.BKFAST [facility] Stop: 03/02/24 07:59 Last Admin: 03/04/23 08:39 Dose: Not Given Insulin Glargine (Insulin Glargine 300 Units/3 Ml Insuln.Pen) 40 units SUBCUT DAILY.WITH.SUPPER [facility] Stop: 03/02/24 16:59 Last Admin: 03/03/23 16:53 Dose: Not Given Ipratropium [place] (Ipratropium [place] 0.5 Mg/2.5 Ml Vial.Neb) 0.5 mg INHALATION QID.RESP [facility] Stop: 03/02/24 07:59 Last Admin: 03/03/23 21:40 Dose: Not Given Lisinopril (Lisinopril 2.5 Mg Tablet) 2.5 mg PO DAILY [facility] Stop: 03/06/23 08:59 Last Admin: 03/04/23 08:39 Dose: 2.5 mg Metoprolol Tartrate (Metoprolol Tartrate 25 Mg Tablet) 25 mg PO BID [facility] Stop: 03/06/23 08:59 Last Admin: 03/04/23 08:39 Dose: 25 mg Quetiapine Fumarate (Quetiapine Fumarate 50 Mg Tablet) 50 mg PO QHS [facility] Stop: 03/06/23 21:59 Last Admin: 03/03/23 21:35 Dose: 50 mg Sodium Chloride (Sodium Chloride 0.9 % 10 Ml Vial.Pf) 10 ml INJECTION PRN PRN PRN Reason: To dilute Pepcid Stop: 03/02/24 07:55 Last Admin: 03/04/23 08:46 Dose: 10 ml Tamsulosin HCl (Tamsulosin 0.4 Mg Cap.Er.24h) 0.4 mg PO DAILY [facility] Stop: 03/06/23 08:59 Last Admin: 03/04/23 08:39 [...] % (Auto) 66.9, Lymph % (Auto) 22.8, [place] % (Auto) 8.8, Eos % (Auto) 1.1, Baso % (Auto) 0.4, Nucleat RBC Rel Count 0.1, Neut # (Auto) 7.9 H, Lymph # (Auto) 2.7, [place] # (Auto) 1.0 H, Eos # (Auto) 0.1, Baso # (Auto) 0.1 03/03/23 16:32: POC Glucose 175 03/03/23 12:14: POC Glucose 338 03/03/23 09:56: Urine Color Yellow, Urine Appearance Clear, Urine pH 6.0, Ur Specific [place] 1.029, Urine Protein Trace H, Urine Glucose [...] % (Auto) 64.8, Lymph % (Auto) 24.8, [place] % (Auto) 7.4, Eos % (Auto) 2.1, Baso % (Auto) 0.9, Nucleat RBC Rel Count 0.2, Neut # (Auto) 8.0 H, Lymph # (Auto) 3.1, [place] # (Auto) 0.9 H, Eos # (Auto) 0.3, Baso # (Auto) 0.1, Platelet Estimate Normal, Plt Morphology Comment Normal, RBC Morphology N/A, Polychromasia Slight, Hypochromasia Slight, Ovalocytes Slight 03/03/23 01:42: POC Glucose 312 03/02/23 21:25: Urine Color Yellow, Urine Appearance Clear, Urine pH 6.5, Ur Specific [place] 1.028, Urine Protein Trace H, Urine Glucose [...] % (Auto) 63.6, Lymph % (Auto) 27.3, [place] % (Auto) 6.2, Eos % (Auto) 2.3, Baso % (Auto) 0.6, Nucleat RBC Rel Count 0.2, Neut # (Auto) 5.9, Lymph # (Auto) 2.5, [place] # (Auto) 0.6, Eos # (Auto) 0.2, [...] Patient is amenable to transfer to a half-way facility, and I think that is definitely [...] <Electronically signed by DO Devin Starks> 03/04/23 7719 [facility] Work Phone: Progress note Author Fermin Rodríguez [facility] March 04, 2023 6:07pm Note Date/Time March 04, 2023 6:08 pm [facility] [address] [place] [address] Hospitalist Progress Note Signed Patient: Akbar Bynres MR#: [id number] : 1960 Acct:[id number] Age/Sex: 62 / M Adm Date: 3 Loc: Room: [address] [place] [address] Type: ADM IN Attending Dr: Devin Starks [...] Vial IV-PUSH 03/02/24 08:59 20 mg Q12HR [facility] Administration Glipizide 10 mg 03/03/23 08:00 Glipizide [...] Insuln.Pen SUBCUT 03/02/24 07:59 Not Given TID.WM.HS [facility] Protocol Insulin Glargine 20 units 03/04/23 22:00 Insulin Glargine 300 Units/3 Ml Insuln.Pen SUBCUT 03/03/24 21:59 QHS [facility] Ipratropium [place] 0.5 mg 03/03/23 08:00 03/04/23 16:17 Ipratropium [place] 0.5 Mg/2.5 Ml Vial.Neb INHALATION 03/02/24 07:59 [...] signed by Fermin Rodríguez DO> 03/04/23 180 [facility] Work Phone: Progress note Author Devin Starks [facility] March 05, 2023 8:38am Note Date/Time March 05, 2023 8:38 am [facility] [address] [place] [address] General Surgery Progress Note Signed Patient: Akbar Byrnes MR#: [id number] : 1960 Acct:[id number] Age/Sex: 62 / M Adm Date: 3 Loc: Room: [address] [place] [address] Type: ADM IN Attending Dr: Devin Starks [...] 226 Gm Bottle) 1 applic TOPICAL DAILY [facility] Stop: 03/06/23 08:59 Last Admin: 03/04/23 08:39 Dose: 1 applic Aspirin (Aspirin 81 Mg Tablet.) 81 mg PO DAILY [facility] Stop: 03/02/24 08:59 Last Admin: 03/04/23 08:39 [...] Mg/0.4 Ml Syringe) 40 mg SUBCUT DAILY@1000 [facility] Stop: 03/02/24 09:59 Last Admin: 03/04/23 10:53 Dose: 40 mg Famotidine (Famotidine/Pf 20 Mg/2 Ml Vial) 20 mg IV-PUSH Q12HR [facility] Stop: 03/02/24 08:59 Last Admin: 03/04/23 21:39 Dose: 20 mg Glipizide (Glipizide 5 Mg Tablet) 10 mg PO DAILY.8A [facility] Stop: 03/07/23 07:59 Glucose (Dextrose 40% Gel [...] Units/3 Ml Insuln.Pen) 0 units SUBCUT TID.WM.HS [facility]; Protocol Stop: 03/02/24 07:59 Last Admin: 03/04/23 21:41 Dose: 3 units Insulin Glargine (Insulin Glargine 300 Units/3 Ml Insuln.Pen) 20 units SUBCUT QHS [facility] Stop: 03/03/24 21:59 Last Admin: 03/04/23 21:41 Dose: 20 units Ipratropium [place] (Ipratropium [place] 0.5 Mg/2.5 Ml Vial.Neb) 0.5 mg INHALATION QID.RESP [facility] Stop: 03/02/24 07:59 Last Admin: 03/04/23 20:46 Dose: 0.5 mg Lisinopril (Lisinopril 2.5 Mg Tablet) 2.5 mg PO DAILY [facility] Stop: 03/06/23 08:59 Last Admin: 03/04/23 08:39 Dose: 2.5 mg Metoprolol Tartrate (Metoprolol Tartrate 25 Mg Tablet) 25 mg PO BID [facility] Stop: 03/06/23 08:59 Last Admin: 03/04/23 23:15 [...] % (Auto) 66.9, Lymph % (Auto) 22.8, [place] % (Auto) 8.8, Eos % (Auto) 1.1, Baso % (Auto) 0.4, Nucleat RBC Rel Count 0.1, Neut # (Auto) 7.9 H, Lymph # (Auto) 2.7, [place] # (Auto) 1.0 H, Eos # (Auto) 0.1, Baso # (Auto) 0.1 03/03/23 22:23: POC Glucose 177 03/03/23 21:48: POC Glucose 42 L* 03/03/23 16:32: POC Glucose 175 03/03/23 12:14: POC Glucose 338 03/03/23 09:56: Urine Color Yellow, Urine Appearance Clear, Urine pH 6.0, Ur Specific [place] 1.029, Urine Protein Trace H, Urine Glucose [...] Continue diet. Plan is for placement at half-way facility. Pending approval by insurance Code(s): W17.89XA [...] signed by DO Devin Starks> 03/05/23 0838 [facility] Work Phone: Progress note Author Fermin Rodríguez [facility] March 05, 2023 6:57pm Note Date/Time March 05, 2023 6:57 pm [facility] [address] [place] [address] Hospitalist Progress Note Signed Patient: Akbar Byrnes MR#: [id number] : 1960 Acct:[id number] Age/Sex: 62 / M Adm Date: 3 Loc: N Room: 1J2336-7 Type: ADM IN Attending Dr: Devin Starks [...] 21:59 20 units QHS [facility] Administration Ipratropium [place] 0.5 mg 03/03/23 08:00 03/05/23 15:45 Ipratropium [place] 0.5 Mg/2.5 Ml Vial.Neb INHALATION 03/02/24 07:59 [...] <Electronically signed by Fermin Rodríguez, DO> 03/05/23 4398 [facility] Work Phone: Progress note Author Devin Starks [facility] March 06, 2023 8:49am Note Date/Time March 06, 2023 8:43 am [facility] [address] [place] [address] General Surgery Progress Note Signed Patient: Akbar Byrnes MR#: [id number] : 1960 Acct:[id number] Age/Sex: 62 / M Adm Date: 3 Loc: Room: [address] [place] [address] Type: ADM IN Attending Dr: Devin Starks [...] 226 Gm Bottle) 1 applic TOPICAL DAILY [facility] Stop: 03/06/23 08:59 Last Admin: 03/05/23 08:52 Dose: 1 applic Aspirin (Aspirin 81 Mg Tablet.Dr) 81 mg PO DAILY [facility] Stop: 03/02/24 08:59 Last Admin: 03/05/23 08:51 Dose: 81 mg Atorvastatin Calcium (Atorvastatin 40 Mg Tablet) 40 mg PO DAILY [facility] Stop: 03/06/23 08:59 Last Admin: 03/05/23 08:51 Dose: 40 mg Dextrose (Dextrose 50% In Water 25 Gm/50 Ml Syringe) 0 gm IV-PUSH PRN PRN PRN Reason: Hypoglycemia Stop: 03/02/24 02:01 Last Admin: 03/04/23 08:40 Dose: 25 gm Docusate Sodium (Docusate 100 Mg Capsule) 100 mg PO BID [facility] Stop: 03/02/24 08:59 Last Admin: 03/05/23 22:15 Dose: 100 mg Enoxaparin Sodium (Enoxaparin 40 Mg/0.4 Ml Syringe) 40 mg SUBCUT DAILY@1000 [facility] Stop: 03/02/24 09:59 Last Admin: 03/05/23 10:18 Dose: 40 mg Famotidine (Famotidine 20 Mg Tablet) 20 mg PO BID [facility] Stop: 03/04/24 08:59 Last Admin: 03/05/23 22:15 Dose: 20 mg Glipizide (Glipizide 5 Mg Tablet) 10 mg PO DAILY.8A [facility] Stop: 03/07/23 07:59 Glucose (Dextrose 40% Gel 15 Gm Tube) 0 gm PO PRN PRN PRN Reason: Hypoglycemia Stop: 03/02/24 02:01 Guaifenesin (Guaifenesin 600 Mg Tab.Er.12h) 1,200 mg PO BID [facility] Stop: 03/04/24 20:59 Last Admin: 03/05/23 22:14 Dose: 1,200 mg Hydromorphone HCl (Hydromorphone 1 Mg/Ml Syringe) 0.5 mg IV-PUSH Q3H PRN PRN Reason: pain Last Admin: 03/06/23 06:43 Dose: 0.5 mg Insulin Aspart (Insulin Aspart 300 Units/3 Ml Insuln.Pen) 0 units SUBCUT TID.WM.[facility]; Protocol Stop: 07/17/24 07:59 Last Admin: 03/05/23 22:16 Dose: 8 units Insulin Glargine (Insulin Glargine 300 Units/3 Ml Insuln.Pen) 20 units SUBCUT QHS [facility] Stop: 03/03/24 21:59 Last Admin: 03/05/23 22:54 Dose: 20 units Ipratropium [place] (Ipratropium [place] 0.5 Mg/2.5 Ml Vial.Neb) 0.5 mg INHALATION [...] 50 Mg Tablet) 50 mg PO QHS [facility] Stop: 03/06/23 21:59 Last Admin: 03/05/23 22:15 [...] identified. Patient is okay for transfer to half-way facility. Code(s): W17.89XA - Other fall from [...] signed by DO Devin Starks> 03/06/23 0849 [facility] Work Phone: progress note Author Giuseppe Bailey [facility] March 06, 2023 1:37pm Note Date/Time March 06, 2023 1:37 pm [facility] [address] [place], [place] [id number] Progress Note Signed Patient: Akbar Byrnes MR#: [id number] : 1960 Acct:[id number] Age/Sex: 62 / M Adm Date: 3 Loc: 4N Room: [address] [place] [address] Type: ADM IN Attending Dr: Devin Starks [...] signed by MD Giuseppe Bailey> 03/06/23 1337 [facility] Work Phone: progress note Author Fermin Rodríguez [facility] March 06, 2023 4:08pm Note Date/Time March 06, 2023 4:08 pm [facility] [address] [place], [place] [id number] Hospitalist Progress Note Signed Patient: Akbar Byrnes MR#: [id number] : 1960 Acct:[id number] Age/Sex: 62 / M Adm Date: 3 Loc: 4N Room: [id number] Type: ADM IN Attending Dr: Devin Starks DO Copies to: ~ Date of Service: 03/06/2023 Subjective Subjective Narrative: I personally saw and examined patient at the bedside this afternoon. No new complaints[facility] Physical Examination: GENERAL APPEARANCE: Alert, up [...] 21:59 20 units QHS [facility] Administration Ipratropium [place] 0.5 mg 03/03/23 08:00 03/06/23 15:39 Ipratropium [place] 0.5 Mg/2.5 Ml Vial.Neb INHALATION 03/02/24 07:59 [...] signed by Fermin Rodríguez DO> 03/06/23 1608 [facility] Work Phone: Progrvev note Author Devin Starks [facility] March 07, 2023 12:21pm Note Date/Time March 07, 2023 12:2 1pm [facility] [address] [place] [address] General Surgery Progress Note Signed Patient: Akbar Byrnes MR#: [id number] : 1960 Acct:[id number] Age/Sex: 62 / M Adm Date: 3 Loc: Room: [address] [place] [address] Type: ADM IN Attending Dr: Devin Starks [...] 100 Mg Capsule) 100 mg PO BID [facility] Stop: 03/02/24 08:59 Last Admin: 03/07/23 08:05 Dose: 100 mg Enoxaparin Sodium (Enoxaparin 40 Mg/0.4 Ml Syringe) 40 mg SUBCUT DAILY@1000 [facility] Stop: 03/02/24 09:59 Last Admin: 03/07/23 09:32 Dose: 40 mg Famotidine (Famotidine 20 Mg Tablet) 20 mg PO BID [facility] Stop: 03/04/24 08:59 Last Admin: 03/07/23 08:05 Dose: 20 mg Glucose (Dextrose 40% Gel 15 Gm Tube) 0 gm PO PRN PRN PRN Reason: Hypoglycemia Stop: 03/02/24 02:01 Guaifenesin (Guaifenesin 600 Mg Tab.Er.12h) 1,200 mg PO BID [facility] Stop: 03/04/24 20:59 Last Admin: 03/07/23 08:05 Dose: 1,200 mg Hydromorphone HCl (Hydromorphone 1 Mg/Ml Syringe) 0.5 mg IV-PUSH Q3H PRN PRN Reason: pain Last Admin: 03/07/23 10:59 Dose: 0.5 mg Insulin Aspart (Insulin Aspart 300 Units/3 Ml Insuln.Pen) 0 units SUBCUT TID.WM.HS [facility]; Protocol Stop: 03/02/24 07:59 Last Admin: 03/07/23 11:58 Dose: 4 units Insulin Glargine (Insulin Glargine 300 Units/3 Ml Insuln.Pen) 20 units SUBCUT QHS [facility] Stop: 03/03/24 21:59 Last Admin: 03/06/23 23:00 Dose: 20 units Ipratropium [place] (Ipratropium [place] 0.5 Mg/2.5 Ml Vial.Neb) 0.5 mg INHALATION QID.RESP [facility] Stop: 03/02/24 07:59 Last Admin: 03/07/23 11:09 Dose: 0.5 mg Pregabalin (Pregabalin 75 Mg Capsule) 75 mg PO BID [facility] Stop: 09/01/23 12:59 Last Admin: 03/07/23 08:05 [...] identified. Patient is okay for transfer to half-way facility. That is pending approval on Thursday [...] signed by DO Devin Starks> 03/07/23 1221 [facility] Work Phone: Progress note Author Fermin Rodríguez [facility] March 07, 2023 6:00pm Note Date/Time March 07, 2023 6:00 pm [facility] [address] [place] [address] Hospitalist Progress Note Signed Patient: Akbar Byrnes MR#: [id number] : 1960 Acct:[id number] Age/Sex: 62 / M Adm Date: 3 Loc: N Room: [address] [place] [address] Type: ADM IN Attending Dr: Devin Starks DO Copies to: ~ Date of Service: 03/07/2023 Subjective Subjective Narrative: I personally saw and examined patient at the bedside this afternoon. No new complaints. Now on the [facility] floor. Physical Examination: GENERAL APPEARANCE: Alert, up [...] Insuln.Pen SUBCUT 03/06/24 21:59 QHS [facility] Ipratropium [place] 0.5 mg 03/03/23 08:00 03/07/23 15:31 Ipratropium [place] 0.5 Mg/2.5 Ml Vial.Neb INHALATION 03/02/24 07:59 0.5 mg QID.RESP [facility] Administration Pregabalin 75 mg 03/05/23 13:00 03/07/23 08:05 Pregabalin 75 Mg Capsule PO 09/01/23 12:59 75 mg BID [facility] Administration Documented By: Fermin Rodríguez DO 03/07/23 17 59 Signed By: <Electronically signed by Fermin Rodríguez DO> 03/07/23 1800 [facility] Work Phone: Progress note Author Devin Starks [facility] March 08, 2023 1:35pm Note Date/Time March 08, 2023 1:35 pm [facility] [address] [place] [address] General Surgery Progress Note Signed Patient: Akbar Byrnes MR#: [id number] : 1960 Acct:[id number] Age/Sex: 62 / M Adm Date: 3 Loc: 4N Room: [id number] Type: ADM IN Attending Dr: Devin Starks [...] 100 Mg Capsule) 100 mg PO BID [facility] Stop: 03/02/24 08:59 Last Admin: 03/08/23 09:26 Dose: 100 mg Enoxaparin Sodium (Enoxaparin 40 Mg/0.4 Ml Syringe) 40 mg SUBCUT DAILY@1000 [facility] Stop: 03/02/24 09:59 Last Admin: 03/08/23 09:35 Dose: 40 mg Famotidine (Famotidine 20 Mg Tablet) 20 mg PO BID [facility] Stop: 03/04/24 08:59 Last Admin: 03/08/23 09:26 Dose: 20 mg Glucose (Dextrose 40% Gel 15 Gm Tube) 0 gm PO PRN PRN PRN Reason: Hypoglycemia Stop: 03/02/24 02:01 Guaifenesin (Guaifenesin 600 Mg Tab.Er.12h) 1,200 mg PO BID [facility] Stop: 03/04/24 20:59 Last Admin: 03/08/23 09:35 Dose: 1,200 mg Hydromorphone HCl (Hydromorphone 1 Mg/Ml Syringe) 0.5 mg IV-PUSH Q3H PRN PRN Reason: pain Last Admin: 03/08/23 11:28 Dose: 0.5 mg Insulin Aspart (Insulin Aspart 300 Units/3 Ml Insuln.Pen) 0 units SUBCUT TID.WM.HS [facility]; Protocol Stop: 03/02/24 07:59 Last Admin: 03/08/23 12:08 Dose: 8 units Insulin Glargine (Insulin Glargine 300 Units/3 Ml Insuln.Pen) 30 units SUBCUT QHS [facility] Stop: 03/06/24 21:59 Last Admin: 03/07/23 21:25 Dose: 30 units Ipratropium [place] (Ipratropium [place] 0.5 Mg/2.5 Ml Vial.Neb) 0.5 mg INHALATION QID.RESP [facility] Stop: 03/02/24 07:59 Last Admin: 03/08/23 11:44 [...] identified. Patient is okay for transfer to half-way facility. That is pending approval on [place]. [...] <Electronically signed by DO Devin Starks> 03/08/23 [facility]5 [facility] Work Phone: Progress note Author Fermin Rodríguez [facility] March 08, 2023 3:17pm Note Date/Time March 08, 2023 3:17 pm [facility] [address] [place] [address] Hospitalist Progress Note Signed Patient: Akbar Byrnes MR#: [id number] : 1960 Acct:[id number] Age/Sex: 62 / M Adm Date: 3 Loc: 4N Room: [address] [place] [address] Type: ADM IN Attending Dr: Devin Starks [...] Insuln.Pen SUBCUT 03/06/24 21:59 QHS [facility] Ipratropium [place] 0.5 mg 03/03/23 08:00 03/08/23 11:44 Ipratropium [place] 0.5 Mg/2.5 Ml Vial.Neb INHALATION 03/02/24 07:59 0.5 mg QID.RESP [facility] Administration Methylnaltrexone [place] 12 mg 03/08/23 15:12 Methylnaltrexone [place] 12 Mg/0.6 Ml Vial SUBCUT 03/08/23 15:13 [...] <Electronically signed by Fermin Rodríguez DO> 03/08/23 0787 [facility] Work Phone: Summary Purpose Family [...] and content) DATE CREATED AUTHOR 10/25/2022 [employer] DATE CREATED AUTHOR AUTHOR'S ORGANIZ ATION 12/11/2022 [facility] DATE CREATED AUTHOR AUTHOR'S ORGANIZ ATION 08/07/2023 [facility] Care Teams (unrecognized sec tion and [...] BE BASED ON THE PRIMARY CLINICAL RECORDS. [employer] [facility]. provides no warranty or guarantee of the accuracy or completeness of information in this document.
[2023-09-02 06:39] LABS: Glucometer 435 mg/dL (74-106)
[2023-09-02 07:19] LABS: Adenovirus NOT DETECTED (NOT DETECTE); Bordetella parapertussis NOT DETECTED (NOT DETECTE); Coronavirus 229E NOT DETECTED (NOT DETECTE); Coronavirus HKU1 NOT DETECTED (NOT DETECTE); Coronavirus NL63 NOT DETECTED (NOT DETECTE); Coronavirus OC43 NOT DETECTED (NOT DETECTE); Human Metapneumovirus NOT DETECTED (NOT DETECTE); Human Rhinovirus/Enterovirus NOT DETECTED (NOT DETECTE); Influenza A NOT DETECTED (NOT DETECTE); Influenza B NOT DETECTED (NOT DETECTE); Mycoplasma pneumoniae NOT DETECTED (NOT DETECTE); Parainfluenza Virus 1 NOT DETECTED (NOT DETECTE); Parainfluenza Virus 2 NOT DETECTED (NOT DETECTE); Parainfluenza Virus 3 NOT DETECTED (NOT DETECTE); Parainfluenza Virus 4 NOT DETECTED (NOT DETECTE); Respiratory Syncytial Virus NOT DETECTED (NOT DETECTE); SARS-CoV-2 NOT DETECTED (NOT DETECTE)
--- NOTE | 2023-09-02 09:02 | P.HP_ITS ---
<Statement entered by Shaikh Jian MD - 09/02/23 23:26> This documentation has been reviewed and approved. Seen and examined. Patient admitted for RLL PNA, COPD exacerbation, T2 DM with hyperglycemia. Exam Laying in bed, comfortable CTA b/l, normal RR, no wheezing. Normal HR, No murmur Plan: C/w rocephin/azithromycin for CAD. Closely monitor blood glucose. Not in DKA. C/w duonebs and systemic steroids. H&P: HPI History of Present Illness Chief complaint: Shortness of Breath PNEUMONIA Narrative: 09/02/23 0900 This is a 62 yo male pt w/ PMH as outlined below including DM2, HTN, COPD/Emphysema, chronic rib/back pain, and hx of closed head injury; who presented to the ED c/o two days of worsening SOB. He also complained of increased cough productive of green sputum. He notes anterior pleuritic pain with deep inspiration and cough unclear if this is related to his current illness or previous rib fractures from a fall possibly 6 months ago. He denies any recent fevers or chills. He stopped taking his insulin for the last 2 days as he said he was too short of breath to get up and get his insulin. Workup in the ED revealed significant hyperglycemia (553), mild hyponatremia (131), leukocytosis (18.2), and lactic acidosis (3.3). Work up was negative for DKA. He was hypoxic on RA per EMS when they arrived to sweet pickle maker the patient and he desaturated down to 86% at least once in the ED as well while on 2 L O2 supplementation. Chest x-ray revealed right lower lobe infiltrate, no other acute disease, and chronic COPD changes noted. An EKG was sinus rhythm. His lactic acid actually went up after IV fluids were administered. He was admitted last night to the hospitalist service for acute right lower lobe pneumonia, COPD exacerbation, acute respiratory failure, and lactic acidosis. At the time of my exam the patient has been weaned off of O2 supplementation. He remains short of breath and is unable to complete a full sentence during conversation. He chronically has a hoarse voice. He reports working to achieve tobacco cessation but is still using at least 2 cigarettes/day. He has been afebrile overnight. Review of Systems ROS Status of ROS 10 or more systems reviewed and unremark able except as noted in history and below PFS PFSH Medical History (Updated 09/02/23 @ 10:55 by Lauren Yang NP) Chronic pain ?G89.29 - Other chronic pain (ICD-10) BPH (benign prostatic hyperplasia) ?N40.0 - Benign prostatic hyperplasia without lower urinary tract symptoms (ICD-10) Dyspnea ?R06.00 - Dyspnea, unspecified (ICD-10) Hyperglycemia ?R73.9 - Hyperglycemia, unspecified (ICD-10) Closed head injury ?S09.90XA - Unspecified injury of head, initial encounter (ICD-10) Medical non-compliance ?Z91.199 - Patient's noncompliance with other medical treatment and regimen due to unspecified reason (ICD-10) COPD (chronic obstructive pulmonary disease) ?J44.9 - Chronic obstructive pulmonary disease, unspecified (ICD-10) Intractable back pain ?M54.9 - Dorsalgia, unspecified (ICD-10) Closed rib fracture ?S22.39XA - Fracture of one rib, unspecified side, initial encounter for closed fracture (ICD-10) Drug abuse ?F19.10 - Other psychoactive substance abuse, uncomplicated (ICD-10) Depression ?F32.A - Depression, unspecified (ICD-10) Failure to thrive Tobacco abuse ?Z72.0 - Tobacco use (ICD-10) Insomnia disorder ?G47.00 - Insomnia, unspecified (ICD-10) Hyperlipidemia associated with type 2 diabetes mellitus ?E11.69 - Type 2 diabetes mellitus with other specified complication (ICD-10) ?E78.5 - Hyperlipidemia, unspecified (ICD-10) Hypertension ?I10 - Essential (primary) hypertension (ICD-10) Insulin dependent type 2 diabetes mellitus, uncontrolled Chronic obstructive pulmonary disease ?J44.9 - Chronic obstructive pulmonary disease, unspecified (ICD-10) Hypercholesteremia ?E78.00 - Pure hypercholesterolemia, unspecified (ICD-10) Diabetes ?E11.9 - Type 2 diabetes mellitus without complications (ICD-10) Surgical History History of total hip arthroplasty ?Z96.649 - Presence of unspecified artificial hip joint (ICD-10) Family History (Updated 09/02/23 @ 06:43 by Brandi Ba) Mother Family history of CHF (congestive heart failure) Family history of COPD (chronic obstructive pulmonary disease) Family history of diabetes mellitus Family history of hypertension Family history of stroke Father Family history of cancer Family history of diabetes mellitus Family history of hypertension Family history of myocardial infarction Social History (Updated 09/02/23 @ 06:44 by Brandi Ba) Within the past year, how often did you have a drink containing alcohol: 4 or m ore times a week Within the past year, how many standard drinks containing alcohol did you have on a typical day: 1 or 2 Within the past year, how often did you have six or more drinks on one occasion: never Total score: 0 Score interpretation: Questions 2 and 3 are 0. It can be assumed that the patient's drinking is below the recommended limits. However, please confirm the accuracy of the patient's alcohol intake over the last few months. Smoking status: Heavy tobacco smoker What tobacco products do you use: cigarettes Second hand tobacco smoke exposure: No Non-prescribed substance use: former substance user, crack/cocaine and opiods/painkillers Previous occupational history: disabled Known occupational exposures/hazards: No Highest level of school completed/degree received: 12th grade, no diploma Do you want help with school or training: No Are you now , , , , never or living with a partner: refused to answer In a typical week, how many times do you talk on the telephone with family, friends, or neighbors: never How often do you get together with friends or relatives: never How often do you attend latter-day or religion services: never Do you belong to any clubs or organizations such as latter-day groups unions, fraternal or athletic groups, or school groups: no Total score: 0 Score interpretation: A score of less than or equal to 1 indicates the most socially isolated. Little interest or pleasure in doing things: several days Feeling down, depressed, or hopeless: several days Feel stressed/tense/nervous/anxious/difficulty sleeping: decline to answer Life stressors: unknown source of stress Due to disability, difficulty making decisions: No Do you think of yourself as: straight/heterosexual Gender Identity: male Meds Home Medications and Allergies Home Medications Medication Instructions Recorded Confirmed Type glipizide 10 mg tablet 10 mg PO DAILY 01/31/23 09/02/23 History quetiapine 50 mg tablet 50 mg PO .hs 01/31/23 09/02/23 History tamsulosin 0.4 mg capsule 0.4 mg PO DAILY 01/31/23 09/02/23 History tiotropium bromide 2.5 2 puff inhalation QDAY 01/31/23 09/02/23 History mcg/actuation mist for inhalation (Spiriva Respimat) insulin glargine 100 unit/mL 40 unit (0.4 mL) subcut BID 30 02/09/23 09/02/23 Rx subcutaneous solution (Lantus days #21 mL U-100 Insulin) aspirin 81 mg tablet,delayed 81 mg PO DAILY 02/26/23 09/02/23 History release hydroxyzine HCl 25 mg tablet 25 mg PO BID PRN anxiety 02/26/23 09/02/23 History ipratropium 20 mcg-albuterol 100 1 puff inhalation Q6H PRN sob 02/26/23 09/02/23 History mcg/actuation mist for inhalation (Combivent Respimat) lisinopril 2.5 mg tablet 2.5 mg PO DAILY 03/12/23 09/02/23 History metoprolol tartrate 25 mg tablet 25 mg PO BID 03/12/23 09/02/23 History Allergies Allergy/AdvReac Type Severity Reaction Status Date / Time No Known Allergies AdvReac Mild Verified 04/15/23 07:55 Exam Constitutional Vital Signs, click to edit/add: Last Vital Signs Temp 98.2 F 09/02/23 06:00 Pulse 85 09/02/23 08:00 Resp 24 09/02/23 06:00 BP 128/90 09/02/23 06:00 Pulse Ox 94 L 09/02/23 06:00 O2 Del Method Room Air 09/02/23 06:00 O2 Flow Rate 2 09/01/23 19:15 Common normals: no apparent distress, oriented x3, alert and well nourished General appearance: cooperative Orientation/consciousness: Yes awake HENMT Common normals: normocephalic, head/scalp atraumatic, hearing grossly normal bilaterally, external nose normal and moist oral mucous membranes Eye Common normals: PERRL, EOMs intact bilaterally, conjunctivae normal and no scleral icterus Alignment: alignment normal Eyelid: eyelids normal Neck & C-Spine Common normals: full ROM, supple and no JVD Chest Common normals: inspection of chest normal Chest: symmetrical chest wall rise and localized rib tenderness with anteroposterior compression (Left lateral, distal ribs) Respiratory Common normals: normal respiratory effort, no retractions, no use of accessory muscles and clear to auscultation bilaterally Auscultation: diminished lung sounds (BLL, greatest to LLL); no crackles, no rales, no rhonchi and no wheezes Cardio Common normals: no JVD, regular rate, regular rhythm, S1 normal heart sound, S2 normal heart sound, no gallops, no clicks, no murmurs, no rub and peripheral pulses 2+ throughout GI Common normals: Normal to inspection, nondistended, normoactive bowel sounds present, soft to palpation, non-tender, no hepatosplenomegaly, no masses and no bruits Bladder/kidney exam: bladder normal to palpation Back & Pelvis Common normals: thoracic and lumbar spine normal to inspection Extremity Common normals: normal capillary refill and no pedal edema General: normal exam except as noted; no cyanosis Neuro [place] Coma Scale: GCS not evaluated Common normals: CN's II-XII intact bilaterally, moves all extremities, no focal motor deficits and no sensory deficits noted Speech: speech normal Motor exam: strength 5/5 throughout Psych Common normals: mental status grossly normal, thought process normal, affect normal and activity/motor behavior normal Results Labs Labs: Short CBC 09/01/23 Range/Units 19:47 WBC 18.2 H (4.0-11.0) 10^3/uL Hgb 16.7 (14.0-18.0) g/dL Hct 47.6 (42.0-54.0) % Plt Count 262 (150-450) 10^3/uL BMP 09/01/23 19:47 Sodium 131 L Potassium 4.4 Chloride 96 L Carbon Dioxide 23.9 BUN 19.0 H Creatinine 0.93 Glucose 553 H* Calcium 10.6 H Liver Function 09/01/23 Range/Units 19:47 Total Bilirubin 0.8 (0.2-1.0) mg/dL AST 18 (15-37) U/L ALT 31 (16-63) U/L Alkaline Phosphatase 251 H (46-116) U/L Albumin 3.0 L (3.4-5.0) g/dL Urine 09/01/23 Range/Units 19:47 Urine Color Yellow (YELLOW) Urine Clarity Clear (CLEAR) Urine pH 5.5 (5.0-9.0) Ur Specific [place] 1.020 (1.005-1.025) Urine Protein Trace (NEG/TRACE) mg/dL Urine Glucose (UA) >=1000 A (NEGATIVE) mg/dL ABG ABG results: 09/01/23 19:47 VBG pH 7.383 VBG pCO2 41.9 Pulse Oximetry Attestation: I have reviewed the pertinent pulse oximetry results. ECG Interpretation: Sinus rhythm Possible right atrial enlargement Moderate right axis deviation Borderline ECG Compared to ECG 07/21/2023 at 1416 p.m. Right axis deviation now present Electronically signed on 09/02/23 0654 AM EST by Koko mendoza Imaging Chest x-ray: Attestation: I have reviewed the pertinent imaging results. Radiologist's impression: IMPRESSION: Interstitial infiltrate at the right lung base. Mild chronic changes are also noted. There is no evidence of cardiac decompensation, the overall appearance of the chest is otherwise unchanged. Assessment and Plan Assessment and Plan (1) Community acquired pneumonia: Assessment and Plan: ACUTE * Adm inpatient * Expect greater than a 2 midnight stay for IVPB antibiotics, scheduled breathing treatments and close respiratory monitoring * Despite lactic acidosis refractory to IVF administration, low clinical suspicion of sepsis w/ only mild leukocytosis, afebrile, stable VS and mentation * 3L IVF NS bolus given overnight * IVPB Rocephin/Azithromycin - no IV Access at this time. Will change to IM rocephin and PO azithromycin if unable to obtain access * CAP coverage * Sputum culture if able to obtain to direct ABX deescalation * Duonebs q4h scheduled and PRN * Guaifenisen BID * OPEP * CBC, CMP daily (2) COPD exacerbation: Assessment and Plan: ACUTE * Duonebs scheduled * ABX as above for possible concurrent bronchitis * Prednisone 40 mg daily for now - pt has no IV access at this time * Consider CT chest pending clinical course (3) Acute respiratory failure: Assessment and Plan: ACUTE * Pt does not use O2 at baseline * O2 sats in the 70s on RA on arrival to the home per EMS yesterday * Sats improved on 2L in the ED but at least one documented sat of 86% while on 2L * Resolving * Weaned off O2 supplementation this morning (4) Acute hyperglycemia: Assessment and Plan: ACUTE * Acute on chronic hyperglycemia in poorly controlled DM2 pt * Pt reports not taking his insulin x 2 days d/t severe SOB making it difficult to get to walk to where his insulin is kept * No DKA on ED work up * Continue home basal insulin * High dose SSI for glucose correction (5) Lactic acidosis: Assessment and Plan: ACUTE * Unclear etiology * Sepsis possible, but not clinically suspected at this time * Possible Type B lactic acidosis * reported hx of substance abuse * Check thiamine level * Risk for malignancy w/ long standing tobacco abuse. Consider CT chest pending clinical course or defer to PCP management * Repeat in AM (6) Anxiety about health: Assessment and Plan: ACUTE ON CHRONIC * Continue home PRN hydroxizine - assist w/ tobacco cravings as well (7) Hyponatremia: Assessment and Plan: CHRONIC * Stable at baseline (8) Insulin dependent type 2 diabetes mellitus, uncontrolled: Assessment and Plan: CHRONIC * ACHS glucometer checks * Med CC diet * Home basal insulin plus high dose SSI for glucose correction (9) Tobacco abuse: Assessment and Plan: CHRONIC * Encouraged tobacco cessation * Pt down to 2 cigarettes daily * hydroxizine for anxiety/tobacco cravings (10) Hypertension: Assessment and Plan: CHRONIC * Continue home metoprolol, lisinopril * PRN Hydralazine IVP (11) BPH (benign prostatic hyperplasia): Assessment and Plan: CHRONIC * Continue home tamsulosin (12) Chronic pain: Assessment and Plan: CHRONIC * Old MSK trauma * Lidoderm patch to L rib cage * PRN Tramadol * Oxycodone for breakthrough pain only
[2023-09-02 09:16] LABS: Basophils Percent Auto 0.2 % (0.2-2.0); Eosinophils Absolute Auto 0.5 10^3/uL (0.0-0.7); Eosinophils Percent Auto 3.7 % (0.9-7.0); Hematocrit 40.7 % (42.0-54.0); Immature Granulocytes Abs Auto 0.04 10^3/uL (0.00-0.03); Immature Granulocytes Pct Auto 0.3 % (0.0-0.5); Lymphocytes Absolute Auto 2.7 10^3/uL (1.2-3.8); Lymphocytes Percent Auto 20.1 % (20.5-60.0); Mean Corpuscular HGB Conc 34.4 g/dL (29.9-35.2); Mean Corpuscular Hemoglobin 30.9 pg (25.9-34.0); Mean Corpuscular Volume 89.8 fL (80.0-94.0); Mean Platelet Volume 10.7 fL (9.5-13.5); Monocytes Absolute Auto 0.7 10^3/uL (0.3-0.8); Monocytes Percent Auto 5.3 % (1.7-12.0); Neutrophils Absolute Auto 9.4 10^3/uL (1.4-6.5); Neutrophils Percent Auto 70.4 % (43.0-75.0); Platelet Count 267 10^3/uL (150-450); Red Blood Count 4.53 10^6/uL (4.70-6.10); Red Cell Distribution Width 14.2 % (11.0-15.0); White Blood Count 13.4 10^3/uL (4.0-11.0)
[2023-09-02 09:47] LABS: Lactate/Lactic Acid 2.4 mmol/L (0.4-2.0)
[2023-09-02 09:54] LABS: Anion Gap 11.2; BUN Creatinine Ratio 19.4; Calcium 9.7 mg/dL (8.5-10.1); Carbon Dioxide 28.1 mmol/L (21.0-32.0); Chloride 97 mmol/L (98-107); Chol HDL Ratio 3.1; Cholesterol 217 mg/dL (<=200); Estimated GFR (African America >60 (>=60); Estimated GFR (Non-African Ame >60 (>=60); HDL Cholesterol 71 mg/dL (40-60); Potassium 4.3 mmol/L (3.5-5.1); Sodium 132 mmol/L (136-145); Triglycerides 64 mg/dL (<=150); VLDL CHOLESTEROL 12.8 mg/dL
[2023-09-02 09:57] LABS: Glucose 561 mg/dL (74-106)
[2023-09-02] MEDS: INSULIN ASPART 300 UNIT/3 ML PEN SUBQ ×4 (10:00→21:04)
[2023-09-02] MEDS: INSULIN DETEMIR 300 UNIT/3 ML INSULN.PEN 40 UNIT SUBQ ×2 (10:00→21:05)
[2023-09-02] MEDS: LISINOPRIL 5 MG TABLET 2.5 MG PO (10:00)
[2023-09-02] MEDS: ENOXAPARIN SODIUM 40 MG/0.4 ML SYRINGE SUBQ (10:01)
[2023-09-02] MEDS: METOPROLOL TARTRATE 25 MG TABLET PO ×2 (10:01→20:32)
[2023-09-02] MEDS: GUAIFENESIN 600 MG TAB.ER.12H PO ×2 (10:01→20:32)
[2023-09-02] MEDS: BENZONATATE 100 MG CAPSULE 200 MG PO ×2 (10:10→21:04)
[2023-09-02] MEDS: LIDOCAINE 5% PATCH 1 PATCH TOPICAL (10:10)
--- NOTE | 2023-09-02 10:12 | CM.NOTE ---
Rounds made with Dr. Villar. Mr. Byrnes speaks in whispers complaints of short of breath. Dr. Villar explained xray findings with Mr. Byrnes. No discharge today.
[2023-09-02] MEDS: IPRATROPIUM/ALBUTEROL SULFATE 3 ML AMPUL.NEB IH ×4 (11:04→23:04)
[2023-09-02 11:05] LABS: Glucometer 432 mg/dL (74-106)
--- NOTE | 2023-09-02 11:43 | SWNOTE1 ---
SW met with pt to discuss dc needs. Pt does live at home alone in a trailer. He did voice his pipes did burst. SW did ask about any support. He does have a sister, Nusrat, who he stated helps with groceries and other things as much as she can. He stated she does work. Pt stated he just needs help and he is ready to go to a nursing facility. Pt spoke with being in [facility], from a fall and then he was transferred to [place] for rehab. He was not sure when this was. He also mentioned a facility in [place] [facility] that he was all set to go to the assisted living, but then he was denied because he was too independent. Pt did work with therapy and may qualify for SNF, pt is agreeable. Pt then spoke about selling all his stuff and moving in to a facility. SW let pt know several times that we are looking at getting him skilled under his insurance to start and then the facility will work on transitioning him in to solar site assessment specialist or assisted living. Pt voiced several times he is helpless and agreeable to go to nursing facility. Pt would like the facility in [place] by [facility] as his first choice and [facility] as second. SW offered the medicare.gov star ratings list of facilities, but voiced he wanted one of those 2 facilities. Pt has [employer] and will be a precert. Pt would also like SW to call his sister, Nusrat, to get name of facility in [place].
[2023-09-02] MEDS: PREDNISONE 20 MG TABLET 40 MG PO (12:05)
[2023-09-02] MEDS: KETOROLAC TROMETHAMINE 30 MG/ML VIAL IVP (12:06)
[2023-09-02] MEDS: LACTATED RINGER'S SOLUTION 1,000 ML 125 ML IV ×2 (12:06→20:32)
--- NOTE | 2023-09-02 12:12 | SWNOTE1 ---
JUAN spoke with pt's sister, Nusrat. Pt did have a fall in the summer and he was in [place] and transferred to [place] for therapy. SW asked her about facility in [place]. She stated she could not remember the name, but it was only assisted living, it was not rehab. SW let his sister know that we are going to try to get him in to rehab to start to build his strength up and then they will work on transitioning him in to AL or assistant terminal manager. SW let him know that his first choice was the place in [place] and second was [place]. SW to speak with pt again to see if [facility] is ok to start. Pt's sister did state at [facility] the pt did walk out and leave. SW let her know it is possible that [facility] may not accept him back. SW also let her know it is possible his [employer] will deny him for rehab as well. She expressed he can't take care of himself at home and also his pipes are frozen. SW let her know SW to update as we work through the process.
[2023-09-02 12:48] LABS: Lactate/Lactic Acid 2.4 mmol/L (0.4-2.0)
--- NOTE | 2023-09-02 13:03 | SWNOTE1 ---
JUAN spoke to pt and he is agreeable for SW to send referral to [facility]. JUAN again let him know the place in [place] is assisted living only. He voices understanding and will do rehab first. Pt would like SW to try and reach out to the AL in [place] to see if they have availability once he is done with rehab. Pt or sister do not know the name of the AL in [place]. JUAN searched with the patient on phone and he thinks it is called the [facility]. SW to check.
--- NOTE | 2023-09-02 13:06 | SWNOTE1 ---
Referral sent to [facility].
--- NOTE | 2023-09-02 13:37 | SWNOTE1 ---
SW called [facility] to speak with admissions, they gave SW a cell phone number for Annmarie in admissions. SW called, no answer and not able to leave a voicemail. SW to try again.
[2023-09-02] MEDS: AZITHROMYCIN 500 MG in 0.9 % SODIUM CHLORIDE 250 ML 250 MG IV (13:59)
--- NOTE | 2023-09-02 14:30 | SWNOTE1 ---
JUAN did speak with Nusrat, pt's sister, and she did remember name of AL, it is the [facility] in [place]. JUAN did look it up and called over to the [facility]. JUAN spoke with admission coordinator, Anabella. She voiced SW will need to send referral to the email she provided. They will then move forward by contacting pt (pt's sister in this case) to set up a tour and then they will have to complete assessment in patient. JUAN did voice he had done this in the past. Anabella stated the patient will have to start the process all over again. The AL does have the waiver program for medicaid patients. SW to let pt and pt's sister Nusrat know. JUAN also sent referral to the AL.
--- NOTE | 2023-09-02 14:42 | SWNOTE1 ---
Precert is started to [facility].
[2023-09-02] MEDS: CEFTRIAXONE 1,000 MG in 0.9 % SODIUM CHLORIDE 50 ML 100 MG IV (16:06)
[2023-09-02 17:28] LABS: Glucometer 183 mg/dL (74-106)
[2023-09-02] MEDS: HYDROXYZINE HCL 25 MG TABLET PO (20:32)
[2023-09-02 20:41] LABS: Glucometer 355 mg/dL (74-106)
[2023-09-02] MEDS: QUETIAPINE FUMARATE 25 MG TABLET 50 MG PO (21:04)
--- NOTE | 2023-09-02 23:04 | RESP.RT ---
Pt kept pulling at mask throughout breathing tx and would not keep it on.
[2023-09-02 23:37] LABS: Amphetamine Screen Urine NEGATIVE (NEGATIVE); Barbiturates Screen Urine NEGATIVE (NEGATIVE); Benzodiazepines Screen Urine NEGATIVE (NEGATIVE); Buprenorphine Screen Urine NEGATIVE (NEGATIVE); Cannabinoid Screen Urine POSITIVE (NEGATIVE); Cocaine Screen Urine NEGATIVE (NEGATIVE); Methadone Screen Urine NEGATIVE (NEGATIVE); Methamphetamines Screen Urine NEGATIVE (NEGATIVE); Opiate Screen Urine NEGATIVE (NEGATIVE); Oxycodone Screen Urine NEGATIVE (NEGATIVE); Phencyclidine Screen Urine NEGATIVE (NEGATIVE); Tricyclic Antidepressant Urine NEGATIVE (NEGATIVE)
[2023-09-03] VITALS (23 sets, daily range): BP systolic 135–168; BP diastolic 80–99; PULSE 63–88; RESP 18–32; TEMP 36.4–36.7; O2SAT 94–100; BMI 19.0
--- NOTE | 2023-09-03 01:29 | PC.NURSE ---
0030- RN assisted pt to bathroom. Patient was unsteady on his feet, but refused to use the walker. Pt ripped off the telemetry stickers while walking toward the bathroom and was pulling on the PICC line and tubing. RN educated the patient on the importance of the temeletry and IV fluids, pt responded with, This is f*cking stupid. RN assisted the patient back to bed and re-connected the statistical analyst. pt resting in bed with call light in reach.
--- NOTE | 2023-09-03 03:51 | RESP.RT ---
Pt refused breathing tx. Pt stated he does not need one at this time.
--- NOTE | 2023-09-03 03:51 | RESP.RT ---
Pt refused breathing tx. Pt stated he does need one at this time.
[2023-09-03] MEDS: LACTATED RINGER'S SOLUTION 1,000 ML 125 ML IV ×3 (04:17→21:15)
[2023-09-03 05:15] LABS: Basophils Percent Auto 0.2 % (0.2-2.0); Eosinophils Absolute Auto 0.1 10^3/uL (0.0-0.7); Eosinophils Percent Auto 0.7 % (0.9-7.0); Hematocrit 36.8 % (42.0-54.0); Hemoglobin 12.7 g/dL (14.0-18.0); Immature Granulocytes Abs Auto 0.05 10^3/uL (0.00-0.03); Immature Granulocytes Pct Auto 0.4 % (0.0-0.5); Lymphocytes Absolute Auto 2.5 10^3/uL (1.2-3.8); Lymphocytes Percent Auto 21.1 % (20.5-60.0); Mean Corpuscular HGB Conc 34.5 g/dL (29.9-35.2); Mean Corpuscular Hemoglobin 30.8 pg (25.9-34.0); Mean Corpuscular Volume 89.1 fL (80.0-94.0); Mean Platelet Volume 11.7 fL (9.5-13.5); Monocytes Absolute Auto 0.6 10^3/uL (0.3-0.8); Monocytes Percent Auto 4.7 % (1.7-12.0); Neutrophils Absolute Auto 8.7 10^3/uL (1.4-6.5); Neutrophils Percent Auto 72.9 % (43.0-75.0); Platelet Count 248 10^3/uL (150-450); Red Blood Count 4.13 10^6/uL (4.70-6.10); Red Cell Distribution Width 13.8 % (11.0-15.0)
[2023-09-03 05:29] LABS: Lactate/Lactic Acid 2.1 mmol/L (0.4-2.0)
[2023-09-03 05:44] LABS: Alanine Aminotransferase 21 U/L (16-63); Albumin Globulin Ratio 0.5; Albumin Level 2.2 g/dL (3.4-5.0); Alkaline Phosphatase 219 U/L (46-116); Anion Gap 8.9; Aspartate Amino Transferase 10 U/L (15-37); BUN Creatinine Ratio 25.3; Bilirubin Total 0.3 mg/dL (0.2-1.0); Calcium 9.3 mg/dL (8.5-10.1); Carbon Dioxide 28.2 mmol/L (21.0-32.0); Chloride 102 mmol/L (98-107); Estimated GFR (African America >60 (>=60); Estimated GFR (Non-African Ame >60 (>=60); Globulin 4.1 g/dL; Glucose 362 mg/dL (74-106); Potassium 4.1 mmol/L (3.5-5.1); Sodium 135 mmol/L (136-145); Total Protein 6.3 g/dL (6.4-8.2)
[2023-09-03 07:35] LABS: Glucometer 394 mg/dL (74-106)
[2023-09-03] MEDS: INSULIN ASPART 300 UNIT/3 ML PEN SUBQ ×5 (07:48→21:16)
[2023-09-03 08:06] LABS: Lactate/Lactic Acid 1.7 mmol/L (0.4-2.0)
[2023-09-03] MEDS: INSULIN DETEMIR 300 UNIT/3 ML INSULN.PEN 45 UNIT SUBQ ×2 (08:06→21:16)
--- NOTE | 2023-09-03 09:53 | SWNOTE1 ---
SW spoke with pt this morning. SW let him know precert was started to [facility] yesterday and we are waiting to see if he gets approved. SW also let him know SW spoke with [facility], and they have received referral SW sent and will reach out to Nusrat to continue the process. He voiced understanding. Pt did voice he was feeling anxious last night and he is worried about what will happen as far as discharge. SW expressed to pt to talk with nursing when he is feeling anxious or ask for SW to come back. SW also expressed as soon as JUAN receives call from [facility] SW will let pt know. Pt voiced understanding.
[2023-09-03] MEDS: GLIPIZIDE 10 MG TABLET PO (10:16)
[2023-09-03] MEDS: PREDNISONE 20 MG TABLET 40 MG PO (10:17)
[2023-09-03] MEDS: LISINOPRIL 5 MG TABLET 2.5 MG PO (10:17)
[2023-09-03] MEDS: METOPROLOL TARTRATE 25 MG TABLET PO ×2 (10:20→21:15)
[2023-09-03] MEDS: ASPIRIN 81 MG TABLET.DR PO (10:20)
[2023-09-03] MEDS: GUAIFENESIN 600 MG TAB.ER.12H PO ×2 (10:20→21:15)
[2023-09-03] MEDS: ENOXAPARIN SODIUM 40 MG/0.4 ML SYRINGE SUBQ (10:21)
[2023-09-03] MEDS: LIDOCAINE 5% PATCH 1 PATCH TOPICAL (10:21)
[2023-09-03] MEDS: TAMSULOSIN HCL 0.4 MG CAPSULE PO (10:24)
--- NOTE | 2023-09-03 10:58 | CM.NOTE ---
Rounds made with Dr. Villar, awaiting precert for skilled therapy.
[2023-09-03] MEDS: IPRATROPIUM/ALBUTEROL SULFATE 3 ML AMPUL.NEB IH ×4 (11:14→23:16)
[2023-09-03 11:17] LABS: Glucometer 347 mg/dL (74-106)
[2023-09-03] MEDS: AZITHROMYCIN 500 MG in 0.9 % SODIUM CHLORIDE 250 ML 250 MG IV (12:09)
[2023-09-03] MEDS: LORAZEPAM 0.5 MG TABLET PO ×2 (12:10→21:15)
--- NOTE | 2023-09-03 13:35 | SWNOTE1 ---
JUAN called admissions from [facility] and the welfare case worker checked this morning and precert still pending. She will check again this afternoon and call if approved.
--- NOTE | 2023-09-03 15:18 | P.PN_ITS ---
<Statement entered by Shaikh Jian MD - 09/03/23 17:06> This documentation has been reviewed and approved. Seen and examined. Doing better but still SOB on exertion. Overnight, he needed IV medications to help him calm down and was agitated at night. Doing well today. On RA. Exam: Frail, laying in bed Normal RR, Exp wheezing. No resp distress Normal HR, no murmur Assessment and Plan CAP COPD exacerbation T2 DM with hpyerglycemia C/w current treatment. Improving clinically and slowly. Possible discharge tomorrow if medically ready. Progress Note: Subjective Subjective Interval history: 09/03/23954 Exam Constitutional Vital Signs, click to edit/add: Last Vital Signs Temp 97.5 F L 09/03/23 14:02 Pulse 76 09/03/23 14:02 Resp 18 09/03/23 14:02 BP 157/88 H 09/03/23 14:02 Pulse Ox 95 09/03/23 14:02 O2 Del Method Room Air 09/03/23 14:02 O2 Flow Rate 2 09/01/23 19:15 Common normals: no apparent distress, oriented x3 and alert General appearance: cooperative Orientation/consciousness: Yes awake HENMT Common normals: normocephalic, head/scalp atraumatic and hearing grossly normal bilaterally Eye Common normals: PERRL, EOMs intact bilaterally, conjunctivae normal and no scleral icterus General eye: normal appearance of both eyes Chest Common normals: inspection of chest normal Chest: symmetrical chest wall rise Respiratory Common normals: normal respiratory effort, no use of accessory muscles and clear to auscultation bilaterally Effort & inspection: able to speak in complete sentences Auscultation: diminished lung sounds bilateral Cardio Common normals: regular rhythm, S1 normal heart sound, S2 normal heart sound, no murmurs and peripheral pulses 2+ throughout Rate: tachycardic (Mildly tachycardic) GI Common normals: Normal to inspection, nondistended, normoactive bowel sounds present, soft to palpation, non-tender and no hepatosplenomegaly Bladder/kidney exam: bladder normal to palpation Extremity Common normals: normal to inspection and no calf tenderness General: no clubbing, no cyanosis and no edema Neuro Common normals: CN's II-XII intact bilaterally, moves all extremities, no focal motor deficits and no sensory deficits noted Psych Common normals: mental status grossly normal Mood and affect: anxious (at times) Progress Note: Objective Labs Labs: Short CBC 09/03/23 Range/Units 04:20 WBC 12.0 H (4.0-11.0) 10^3/uL Hgb 12.7 L (14.0-18.0) g/dL Hct 36.8 L (42.0-54.0) % Plt Count 248 (150-450) 10^3/uL BMP 09/03/23 04:20 Sodium 135 L Potassium 4.1 Chloride 102 Carbon Dioxide 28.2 BUN 19.0 H Creatinine 0.75 Glucose 362 H Calcium 9.3 Liver Function 09/03/23 Range/Units 04:20 Total Bilirubin 0.3 (0.2-1.0) mg/dL AST 10 L (15-37) U/L ALT 21 (16-63) U/L Alkaline Phosphatase 219 H (46-116) U/L Albumin 2.2 L (3.4-5.0) g/dL Progress Note: A&P Assessment and Plan (1) Community acquired pneumonia: Assessment and Plan: ACUTE * Improving - no adventitious LS on exam today. Hypoxia resolved * Continue IVPB Rocephin/Azithromycin - IV Access obtained w/ PICC line placement * CAP coverage * Sputum culture if able to obtain to direct ABX deescalation - none to date * Continue Duonebs q4h scheduled and PRN * Continue Guaifenisen BID * OPEP for pulmonary toileting * PT recommending SNF post acute rehab d/t generalized weakness and failure to thrive. Referral sent to local SNF by social work nurse. * CBC, CMP daily (2) COPD exacerbation: Assessment and Plan: ACUTE * Resolving - no wheezing on exam today, remains diminished * Duonebs scheduled * ABX as above for possible concurrent bronchitis * Continue Prednisone 40 mg daily * Consider CT chest pending clinical course (3) Acute respiratory failure: Assessment and Plan: ACUTE * Resolved (4) Acute hyperglycemia: Assessment and Plan: ACUTE * Persistent, especially with concurrent steroid administration * Acute on chronic hyperglycemia in poorly controlled DM2 pt * Pt reports not taking his insulin x 2 days d/t severe SOB making it difficult to get up to walk to where his insulin is kept * DKA ED work up neg * Increase home basal insulin to 45 un BID * Continue High dose SSI for glucose correction (5) Lactic acidosis: Assessment and Plan: ACUTE * Resolved on AM labs today (6) Anxiety about health: Assessment and Plan: ACUTE ON CHRONIC * Night staff reported significant agitation and combativeness at one point * Continue PRN Ativan ordered overnight * Continue home PRN hydroxizine - assist w/ tobacco cravings as well * Clinically suspect that some of the pt's respiratory distress is actually from panic attacks as his LS remain clear and there is no hypoxia during these episodes * Continue home seroquel at HS (7) Hyponatremia: Assessment and Plan: CHRONIC * Resolved (8) Insulin dependent type 2 diabetes mellitus, uncontrolled: Assessment and Plan: CHRONIC * ACHS glucometer checks * Med CC diet * Increase home basal insulin to 45 un BID plus high dose SSI for glucose correction (9) Tobacco abuse: Assessment and Plan: CHRONIC * Encouraged tobacco cessation * Pt down to 2 cigarettes daily * hydroxizine for anxiety/tobacco cravings (10) Hypertension: Assessment and Plan: CHRONIC * Continue home metoprolol, lisinopril * PRN Hydralazine IVP (11) BPH (benign prostatic hyperplasia): Assessment and Plan: CHRONIC * Continue home tamsulosin (12) Chronic pain: Assessment and Plan: CHRONIC * Old MSK trauma * Lidoderm patch to L rib cage * PRN Toradol * Oxycodone for breakthrough pain only
--- NOTE | 2023-09-03 15:18 | PM.PN ---
Progress Note: Subjective Subjective Interval history: 09/03/23 0955 Exam Constitutional Vital Signs, click to edit/add: Last Vital Signs Temp 97.5 F L 09/03/23 14:02 Pulse 76 09/03/23 14:02 Resp 18 09/03/23 14:02 BP 157/88 H 09/03/23 14:02 Pulse Ox 95 09/03/23 14:02 O2 Del Method Room Air 09/03/23 14:02 O2 Flow Rate 2 09/01/23 19:15 Common normals: no apparent distress, oriented x3 and alert General appearance: cooperative Orientation/consciousness: Yes awake HENMT Common normals: normocephalic, head/scalp atraumatic and hearing grossly normal bilaterally Eye Common normals: PERRL, EOMs intact bilaterally, conjunctivae normal and no scleral icterus General eye: normal appearance of both eyes Chest Common normals: inspection of chest normal Chest: symmetrical chest wall rise Respiratory Common normals: normal respiratory effort, no use of accessory muscles and clear to auscultation bilaterally Effort & inspection: able to speak in complete sentences Auscultation: diminished lung sounds bilateral Cardio Common normals: regular rhythm, S1 normal heart sound, S2 normal heart sound, no murmurs and peripheral pulses 2+ throughout Rate: tachycardic (Mildly tachycardic) GI Common normals: Normal to inspection, nondistended, normoactive bowel sounds present, soft to palpation, non-tender and no hepatosplenomegaly Bladder/kidney exam: bladder normal to palpation Extremity Common normals: normal to inspection and no calf tenderness General: no clubbing, no cyanosis and no edema Neuro Common normals: CN's II-XII intact bilaterally, moves all extremities, no focal motor deficits and no sensory deficits noted Psych Common normals: mental status grossly normal Mood and affect: anxious (at times) Progress Note: Objective Labs Labs: Short CBC 09/03/23 Range/Units 04:20 WBC 12.0 H (4.0-11.0) 10^3/uL Hgb 12.7 L (14.0-18.0) g/dL Hct 36.8 L (42.0-54.0) % Plt Count 248 (150-450) 10^3/uL BMP 09/03/23 04:20 Sodium 135 L Potassium 4.1 Chloride 102 Carbon Dioxide 28.2 BUN 19.0 H Creatinine 0.75 Glucose 362 H Calcium 9.3 Liver Function 09/03/23 Range/Units 04:20 Total Bilirubin 0.3 (0.2-1.0) mg/dL AST 10 L (15-37) U/L ALT 21 (16-63) U/L Alkaline Phosphatase 219 H (46-116) U/L Albumin 2.2 L (3.4-5.0) g/dL Progress Note: A&P Assessment and Plan (1) Community acquired pneumonia: Assessment and Plan: ACUTE Improving - no adventitious LS on exam today. Hypoxia resolved Continue IVPB Rocephin/Azithromycin - IV Access obtained w/ PICC line placement CAP coverage Sputum culture if able to obtain to direct ABX deescalation - none to date Continue Duonebs q4h scheduled and PRN Continue Guaifenisen BID OPEP for pulmonary toileting PT recommending SNF post acute rehab d/t generalized weakness and failure to thrive. Referral sent to local SNF by health care social worker. CBC, CMP daily (2) COPD exacerbation: Assessment and Plan: ACUTE Resolving - no wheezing on exam today, remains diminished Duonebs scheduled ABX as above for possible concurrent bronchitis Continue Prednisone [address] chest pending clinical course (3) Acute respiratory failure: Assessment and Plan: ACUTE Resolved (4) Acute hyperglycemia: Assessment and Plan: ACUTE Persistent, especially with concurrent steroid administration Acute on chronic hyperglycemia in poorly controlled DM2 pt Pt reports not taking his insulin x 2 days d/t severe SOB making it difficult to get up to walk to where his insulin is kept DKA ED work up neg Increase home basal insulin to 45 un BID Continue High dose SSI for glucose correction (5) Lactic acidosis: Assessment and Plan: ACUTE Resolved on AM labs today (6) Anxiety about health: Assessment and Plan: ACUTE ON CHRONIC Night staff reported significant agitation and combativeness at one point Continue PRN Ativan ordered overnight Continue home PRN hydroxizine - assist w/ tobacco cravings as well Clinically suspect that some of the pt's respiratory distress is actually from panic attacks as his LS remain clear and there is no hypoxia during these episodes Continue home seroquel at HS (7) Hyponatremia: Assessment and Plan: CHRONIC Resolved (8) Insulin dependent type 2 diabetes mellitus, uncontrolled: Assessment and Plan: CHRONIC ACHS glucometer checks Med CC diet Increase home basal insulin to 45 un BID plus high dose SSI for glucose correction (9) Tobacco abuse: Assessment and Plan: CHRONIC Encouraged tobacco cessation Pt down to 2 cigarettes daily hydroxizine for anxiety/tobacco cravings (10) Hypertension: Assessment and Plan: CHRONIC Continue home metoprolol, lisinopril PRN Hydralazine IVP (11) BPH (benign prostatic hyperplasia): Assessment and Plan: CHRONIC Continue home tamsulosin (12) Chronic pain: Assessment and Plan: CHRONIC Old MSK trauma Lidoderm patch to L rib cage PRN Toradol Oxycodone for breakthrough pain only
[2023-09-03 16:07] LABS: Glucometer 549 mg/dL (74-106)
[2023-09-03] MEDS: HYDROXYZINE HCL 25 MG TABLET PO (16:52)
[2023-09-03] MEDS: LORAZEPAM 2 MG/ML 1 ML VIAL 1 MG IV (18:49)
[2023-09-03 19:45] LABS: Glucometer 316 mg/dL (74-106)
[2023-09-03] MEDS: QUETIAPINE FUMARATE 25 MG TABLET 50 MG PO (21:15)
--- NOTE | 2023-09-03 23:46 | PC.NURSE ---
Nurse notified of pts telemetry waveform being intermittent and at times being completely off, states pt is anxious and does not leave device alone is very rambunctious. States she will check on patients.
[2023-09-04] VITALS (8 sets, daily range): BP systolic 133–162; BP diastolic 80–101; PULSE 72–82; RESP 20–22; TEMP 36.4; O2SAT 90–97
[2023-09-04] MEDS: LORAZEPAM 2 MG/ML 1 ML VIAL 1 MG IV ×2 (00:25→02:19)
[2023-09-04] MEDS: HYDROXYZINE HCL 25 MG TABLET PO (01:12)
--- NOTE | 2023-09-04 01:17 | PC.NURSE ---
pt is agitated and restless. Pt is on the call light multiple times and then agitated when the RN or aide goes into the room to help him. Pt is refusing to wear telemetry and ripped the monitor off. RN educated pt on the importance of the monitor and the patient turned on his side and pulled the blankets over his head.
--- NOTE | 2023-09-04 01:34 | PC.NURSE ---
pt up to bathroom with x2 assist. pt unsteady on his feet and leaning to the left while sitting and walking. pt did not follow commands or cues. While walking, pt was leaning forward and RNs had to hold patient to prevent him from falling. Pt struggled to pick his feet up to take steps and tripped over his own foot. pt is now back in the bed with call light in reach.
--- NOTE | 2023-09-04 02:33 | PC.NURSE ---
pt set off bed alarm, RNs went into the room to assist. pt was sitting at the foot of the bed. pt was unable to hold his head up and fell forward multiple times, RN held his shoulders to prevent patient from falling off the bed. Assisted the patient to lay back down. Tele-hospitalist made aware of the situation.
[2023-09-04] MEDS: LACTATED RINGER'S SOLUTION 1,000 ML 125 ML IV (03:18)
--- NOTE | 2023-09-04 03:38 | RESP.RT ---
Pt refused breathing tx. Pt stated he does not need one.
--- NOTE | 2023-09-04 03:40 | PC.NURSE ---
pt tore his IV tubing. Bed linens changed. pt sitting at the foot of the bed and resistant to getting back into bed. pt unable to sit without falling forward. Nursing milk route supervisor assisted patient to lay in bed and pt attempted to kick her. pt is now back in bed with call light in reach.
--- NOTE | 2023-09-04 03:42 | PC.NURSE ---
pt set off his bed alarm, RNs and aide in to assist patient. He stated he needed the bathroom. One RN brought over the urinal while the other was assisting his to sit on the bed. Pt was resisting help and urinated on RN and on the bed and floor. bed linens changed. nurse computer analyst supervisor and RN assisted the patient to lay down in bed and he became aggressive trying to hit and kick them. Once he was laying down, RN handed the patient the call light and he took it and slammed it into the bed rail multiple times. tele-hospitalist aware of the situation.
--- NOTE | 2023-09-04 04:03 | PC.NURSE ---
pt aggressive with staff and ripped out PICC. security called to pt room
[2023-09-04] MEDS: ZIPRASIDONE MESYLATE 20 MG, WATER FOR INJECTION,STERILE 1.2 ML IM (04:08)
--- NOTE | 2023-09-04 04:30 | PC.NURSE ---
patient hitting the call light against the side rails. continuously trying to climb out of bed over the side rails or down the foot of the bed. Pt tried to hit RN with the call light, so it was placed out of his reach while RN in room. Pt started hitting his hands and fists against the side rails. Seizure pads were placed on the top two rails to protect patient. Lab was unable to draw his blood at this time due to the agitation.
--- NOTE | 2023-09-04 05:16 | PC.NURSE ---
pt lower abdomen felt distended after pt urinated 50mls. bladder scan completed with 490 mls residual. straight cath order obtained. Pt straight cathed with 675mls emptied from bladder. pt still restless at this time
[2023-09-04] MEDS: HALOPERIDOL LACTATE 5 MG/ML VIAL 10 MG IM (07:25)
[2023-09-04 07:47] LABS: Glucometer 79 mg/dL (74-106)
[2023-09-04 08:36] LABS: Basophils Percent Auto 0.4 % (0.2-2.0); Eosinophils Absolute Auto 0.7 10^3/uL (0.0-0.7); Eosinophils Percent Auto 6.2 % (0.9-7.0); Hematocrit 42.2 % (42.0-54.0); Hemoglobin 14.5 g/dL (14.0-18.0); Immature Granulocytes Abs Auto 0.05 10^3/uL (0.00-0.03); Immature Granulocytes Pct Auto 0.5 % (0.0-0.5); Lymphocytes Absolute Auto 1.7 10^3/uL (1.2-3.8); Lymphocytes Percent Auto 15.9 % (20.5-60.0); Mean Corpuscular HGB Conc 34.4 g/dL (29.9-35.2); Mean Corpuscular Volume 90.4 fL (80.0-94.0); Mean Platelet Volume 10.5 fL (9.5-13.5); Monocytes Absolute Auto 0.8 10^3/uL (0.3-0.8); Monocytes Percent Auto 7.7 % (1.7-12.0); Neutrophils Absolute Auto 7.3 10^3/uL (1.4-6.5); Neutrophils Percent Auto 69.3 % (43.0-75.0); Platelet Count 256 10^3/uL (150-450); Red Blood Count 4.67 10^6/uL (4.70-6.10); Red Cell Distribution Width 14.1 % (11.0-15.0); White Blood Count 10.6 10^3/uL (4.0-11.0)
[2023-09-04 08:55] LABS: Alanine Aminotransferase 25 U/L (16-63); Albumin Globulin Ratio 0.6; Albumin Level 2.7 g/dL (3.4-5.0); Alkaline Phosphatase 166 U/L (46-116); Aspartate Amino Transferase 22 U/L (15-37); BUN Creatinine Ratio 18.4; Bilirubin Total 0.3 mg/dL (0.2-1.0); Calcium 10.2 mg/dL (8.5-10.1); Carbon Dioxide 29.7 mmol/L (21.0-32.0); Chloride 105 mmol/L (98-107); Estimated GFR (African America >60 (>=60); Estimated GFR (Non-African Ame >60 (>=60); Globulin 4.7 g/dL; Glucose 82 mg/dL (74-106); Potassium 3.7 mmol/L (3.5-5.1); Sodium 141 mmol/L (136-145); Total Protein 7.4 g/dL (6.4-8.2)
--- NOTE | 2023-09-04 09:35 | SWNOTE1 ---
Pt had behaviors over the night and is now a 1 on 1. SW sent over updates to [place]. SW to call and update admissions as well.
--- NOTE | 2023-09-04 11:30 | SWNOTE1 ---
Updated therapy note sent to [facility].
[2023-09-04 11:43] LABS: Glucometer 95 mg/dL (74-106)
[2023-09-04] MEDS: LISINOPRIL 5 MG TABLET 2.5 MG PO (11:45)
[2023-09-04] MEDS: ENOXAPARIN SODIUM 40 MG/0.4 ML SYRINGE SUBQ (11:45)
[2023-09-04] MEDS: LIDOCAINE 5% PATCH 1 PATCH TOPICAL (11:45)
[2023-09-04] MEDS: GLIPIZIDE 10 MG TABLET PO (11:46)
[2023-09-04] MEDS: ASPIRIN 81 MG TABLET.DR PO (11:46)
[2023-09-04] MEDS: METOPROLOL TARTRATE 25 MG TABLET PO ×2 (11:47→22:02)
[2023-09-04] MEDS: TAMSULOSIN HCL 0.4 MG CAPSULE PO (11:47)
--- NOTE | 2023-09-04 11:49 | SWNOTE1 ---
JUAN spoke with the doctor in regards to discharge plan. Pt is a 1 on 1. JUAN going to send a referral [facility] for pt's behaviors as a secondary plan. JUAN receieved call from [facility] and [facility] is not able to accept until he is 1 on 1 free for 24 hours. JUAN updated nursing, doctor, and director of [facility].
[2023-09-04] MEDS: GUAIFENESIN 600 MG TAB.ER.12H PO (11:50)
--- NOTE | 2023-09-04 12:16 | SWNOTE1 ---
SW did attempt to speak with pt in regards to his behaviors and about discharge plan. SW did ask if pt knew where he was and he stated [facility]. SW asked pt if he remembered SW, no answer. SW asked pt if he remembered the facility we were trying to get him in to, no answer. SW expressed to pt in order to help him, he has to communicate with us. At this time pt is not answering any questions. SW did ask pt if SW could call his sister Nusrat, pt shook his head yes. JUAN spoke with Nusrat. She voiced that pt voices he wants help, but then he acts like this. She stated he has always been like this. SW let her know about the 1 on 1, his behaviors, and about [facility] not being able to take him unless he is 1 on 1 free for 24 hours. JUAN also spoke with her about [facility]. JUAN recommended she research the facility and see if that is an option. Nusrat voiced he will need to go wherever accepts him. She stated he can't go home like this and also his pipes are frozen. Nusrat is going to call him this afternoon. SW to let nursing know. Referral sent to [facility].
--- NOTE | 2023-09-04 12:42 | CM.NOTE ---
Rounds made with Dr. Villar, pt difficult to awaken at this time. Dr. Villar discussed plan of care with 1 on 1 RN at bedside. No discharge today.
--- NOTE | 2023-09-04 13:57 | SWNOTE1 ---
JUAN spoke with admissions at [facility] and she received referral. She has reviewed and is checking insurance and will send on to the doctor to review. They are aware of plans of pt going to [facility] for rehab eventually and the potential of assisted living in future. JUAN also made [facility] aware that there is no POA, sister is next of kin. [facility] asked if sister would file for emergency guardianship. SW to find out. JUAN spoke with sister in room and she would file for guardianship. JUAN updated pt's sister and nurse.
--- NOTE | 2023-09-04 15:26 | SWNOTE1 ---
Pt has been accepted at [facility], they will need pink slip and covid swab prior to discharge. SW did reach out to doctor and he is going to keep him tonight and see if pt comes around and decides he wants to go himself. Doctor is going to notify the doctor coming on next. Marty is still out there for [facility]. JUAN is going to update [facility]. JUAN put together packet and left information for nursing in regards to pink slip. JUAN updated nursing, pt's sister, and let [facility] know he is not coming today.
[2023-09-04 17:21] LABS: Glucometer 91 mg/dL (74-106)
--- NOTE | 2023-09-04 20:54 | P.IMPN_ITS ---
Progress Note: A&P Assessment and Plan (1) Delirium due to multiple etiologies: Assessment and Plan: Patient has prior hx of drug use, along with unspecified mental health illness for which he is currently not on any treatment. He does not seem to be in withdrawal from substance abuse. He is usually calm, appropriate and co operative during day time but becomes confused, agitated and aggressive at night requiring IV benzodiazepines or antipsychotics. Likely sundowning, and not from an acute medical illness. All of his parameters, clinical indicators are showing improvement and he could have been discharged if not for agitation, confusion at night. Will increase Seroqeul to 100 qhs. Added PO ativan as needed. Monitor overnight. If remains stable, can possibly d/c tomorrow (2) Community acquired pneumonia: Assessment and Plan: On RA. C/w rocephin and azithromycin. Can switch to PO abx on discharge. Qualifiers: Laterality: unspecified laterality Qualified Code(s): J18.9 - Pneumonia, unspecified organism (3) COPD exacerbation: Assessment and Plan: No wheezing on exam. C/w duonesb. on PO Prednisone. (4) Acute respiratory failure: Assessment and Plan: Initially hypoxic on presentation, now resolved and on RA. Qualifiers: Respiratory failure complication: hypoxia Qualified Code(s): J96.01 - Acute respiratory failure with hypoxia (5) Acute hyperglycemia: Assessment and Plan: likely due to non compliance. Improved with changes to his regimen. home dose of lantus is 35 q12, increased to 45 q12. (6) Lactic acidosis: Assessment and Plan: resolved. due to dehydration (7) Insulin dependent type 2 diabetes mellitus, uncontrolled: Assessment and Plan: poorly controlled due to non compliance and poor insight. Improved glycemic control with increased dose of lantus. (8) Hypertension: Assessment and Plan: C/w home meds. Qualifiers: Hypertension type: primary hypertension Qualified Code(s): I10 - Essential (primary) hypertension (9) BPH (benign prostatic hyperplasia): Assessment and Plan: C/w flomax Internal Medicine - PN: Subj Subjective Interval history: Seen and examined. Patient overnight was very hostile, became agitated, confused, threatened to leave and attempted to attack nursing staff. He also pulled his IV. He was given IV ativan, Geodon and was restless and difficult to control until morning when an IM dose of Haloperidol finally calmed him down and he was then sleeping comfortably during daytime. Patient was uncooperative, kept his eyes closed and chose to not engage with me today, even though 5 minutes prior to that, he walked to the restroom and was completely at his baseline. When I attempted to open his eyes, he was forcefully shut them and changed position to lay on his side to avoid an interaction with me. Exam Constitutional Vital Signs, click to edit/add: Last Vital Signs Temp 97.6 F 09/04/23 20:32 Pulse 74 09/04/23 20:32 Resp 22 09/04/23 20:32 BP 146/85 H 09/04/23 14:00 Pulse Ox 95 09/04/23 20:32 O2 Del Method Room Air 09/04/23 20:32 O2 Flow Rate 2 09/01/23 19:15 Common normals: no apparent distress Exam limitations: behavioral limitations (not cooperative, did not communicate and avoided any engagement with me.) General appearance: frail appearing Nutritional appearance: thin HENMT Common normals: normocephalic and head/scalp atraumatic Respiratory Common normals: normal respiratory effort, no retractions, no use of accessory muscles and clear to auscultation bilaterally Cardio Common normals: no JVD, regular rate, regular rhythm, S1 normal heart sound and S2 normal heart sound Extremity Common normals: normal to inspection, full ROM and no clubbing, cyanosis or edema Neuro Common normals: moves all extremities, no focal motor deficits and no sensory deficits noted Other: Laying in bed with eyes closed, choosing not to engage in conversation and avoiding communication Psych Attitude: withdrawn and evasive Activity/motor behavior: avoids eye contact Mood and affect: labile affect Other: Laying down with eyes closed and not engaging with the provider. Internal Medicine - PN: Obj Da Labs Labs: Laboratory Results - last 24 hr 09/04/23 09/04/23 09/04/23 07:46 08:30 11:42 WBC 10.6 RBC 4.67 L Hgb 14.5 Hct 42.2 MCV 90.4 MCH 31.0 MCHC 34.4 RDW 14.1 Plt Count 256 MPV 10.5 Neut % (Auto) 69.3 Lymph % (Auto) 15.9 L [place] % (Auto) 7.7 Eos % (Auto) 6.2 Baso % (Auto) 0.4 Neut # (Auto) 7.3 H Lymph # (Auto) 1.7 [place] # (Auto) 0.8 Eos # (Auto) 0.7 Baso # (Auto) 0.0 Abs Immat Gran (auto) 0.05 H Imm/Tot Granulo (auto) 0.5 Sodium 141 Potassium 3.7 Chloride 105 Carbon Dioxide 29.7 Anion Gap 10.0 BUN 14.0 Creatinine 0.76 Est GFR ( Amer) >60 Est GFR (Non-Af Amer) >60 BUN/Creatinine Ratio 18.4 Glucose 82 Calcium 10.2 H Total Bilirubin 0.3 AST 22 ALT 25 Alkaline Phosphatase 166 H Total Protein 7.4 Albumin 2.7 L Globulin 4.7 Albumin/Globulin Ratio 0.6 POC Glucose 79 95 09/04/23 17:20 WBC RBC Hgb Hct MCV MCH MCHC RDW Plt Count MPV Neut % (Auto) Lymph % (Auto) [place] % (Auto) Eos % (Auto) Baso % (Auto) Neut # (Auto) Lymph # (Auto) [place] # (Auto) Eos # (Auto) Baso # (Auto) Abs Immat Gran (auto) Imm/Tot Granulo (auto) Sodium Potassium Chloride Carbon Dioxide Anion Gap BUN Creatinine Est GFR ( Amer) Est GFR (Non-Af Amer) BUN/Creatinine Ratio Glucose Calcium Total Bilirubin AST ALT Alkaline Phosphatase Total Protein Albumin Globulin Albumin/Globulin Ratio POC Glucose 91 Urinary Catheter Management Urinary Catheter Management Straight: Cath placed during this visit: yes Urethral indwelling: No Insertion date: 09/04/23 Insertion time: 04:50
[2023-09-04 21:23] LABS: Glucometer 67 mg/dL (74-106)
[2023-09-04] MEDS: QUETIAPINE FUMARATE 100 MG TABLET PO (22:02)
[2023-09-04 23:05] LABS: Glucometer 95 mg/dL (74-106)
[2023-09-04 23:23] LABS: Adenovirus NOT DETECTED (NOT DETECTE); Bordetella parapertussis NOT DETECTED (NOT DETECTE); Coronavirus 229E NOT DETECTED (NOT DETECTE); Coronavirus HKU1 NOT DETECTED (NOT DETECTE); Coronavirus NL63 NOT DETECTED (NOT DETECTE); Coronavirus OC43 NOT DETECTED (NOT DETECTE); Human Metapneumovirus NOT DETECTED (NOT DETECTE); Human Rhinovirus/Enterovirus NOT DETECTED (NOT DETECTE); Influenza A NOT DETECTED (NOT DETECTE); Influenza B NOT DETECTED (NOT DETECTE); Mycoplasma pneumoniae NOT DETECTED (NOT DETECTE); Parainfluenza Virus 1 NOT DETECTED (NOT DETECTE); Parainfluenza Virus 2 NOT DETECTED (NOT DETECTE); Parainfluenza Virus 3 NOT DETECTED (NOT DETECTE); Parainfluenza Virus 4 NOT DETECTED (NOT DETECTE); Respiratory Syncytial Virus NOT DETECTED (NOT DETECTE); SARS-CoV-2 NOT DETECTED (NOT DETECTE)
--- NOTE | 2023-09-04 23:25 | PC.NURSE ---
Patient combative and swinging at staff during covid swab test.
--- NOTE | 2023-09-05 04:31 | PC.NURSE ---
Lab came to draw blood work on patient. clinical lab technologist explained what was needed.Patient would not acknowledge lab staff and kept himself covered up with blankets. Patient did not give consent. Labs were not drawn
[2023-09-05 05:52] VITALS: BP 150/90; PULSE 78; RESP 22; TEMP 36.6; O2SAT 96
[2023-09-05 07:37] LABS: Glucometer 96 mg/dL (74-106)
[2023-09-05 08:09] VITALS: BP 141/96; PULSE 88; RESP 18; TEMP 36.6; O2SAT 92
[2023-09-05] MEDS: INSULIN DETEMIR 300 UNIT/3 ML INSULN.PEN 45 UNIT SUBQ (09:04)
[2023-09-05] MEDS: LISINOPRIL 5 MG TABLET 2.5 MG PO (09:04)
[2023-09-05] MEDS: GUAIFENESIN 600 MG TAB.ER.12H PO (09:04)
[2023-09-05] MEDS: METOPROLOL TARTRATE 25 MG TABLET PO (09:04)
[2023-09-05] MEDS: GLIPIZIDE 10 MG TABLET PO (09:05)
[2023-09-05] MEDS: ASPIRIN 81 MG TABLET.DR PO (09:05)
[2023-09-05] MEDS: ENOXAPARIN SODIUM 40 MG/0.4 ML SYRINGE SUBQ (09:05)
[2023-09-05] MEDS: TAMSULOSIN HCL 0.4 MG CAPSULE PO (09:05)
--- NOTE | 2023-09-05 11:10 | REH.PTDLY ---
Physical Therapy Daily Note PT Daily Note/Assess Start: 09/03/23 13:31 Freq: Status: Active Protocol: Document 09/05/23 10:53 [id number] (Rec: 09/05/23 11:10 [id number]) Physical Therapy Daily Note/Assessment Time In 10:19 Time Out 10:29 Subjective Patient did not respond when asked about pain. Patient received seated EOB and requests to shower. Nursing Aid notified of patient request. Patient has difficulty verbalizing answers and uses head movements to communicate secondary to breathing issues. Therapeutic Exercise Minutes (minutes) 7 Therapeutic Exercise Units 1 Therapeutic Exercise Treatment Seated EOB for JOSEPH LE: ankle pumps, LAQ's, marching, hip ADD w/ pillow, hip ABD. Patient able to maintain seated balance, but has kyphotic posture and labored breathing with exertion. Verbal cues to slow pace of reps and to move through entire available ROM for maximal benefit. Therapeutic Activity Minutes (minutes) 3 Therapeutic Activity Units 0 Chair Transfer Ability Contact Guard Assist,1 Person Assist Therapeutic Activity Comments MAX A +1 to dirk slipper socks in sitting prior to ambulation. Patient transferred sit to stand to RW with CGA +1. Ambulated ~10 ft. x 1 with RW with CGA to MIN A +1, patient able to SLS with MIN to MOD A while slippers socks were doffed while holding RW. Patient placed in shower and care handed off to nursing Aid. Total Therapy Minutes 10 Total Physical Therapy Units 1 Daily Note Summary Patient with labored breathing with exertion. Patient impulsive with functional movements for ther ex and transfers. Patient would benefit from rehab to address functional deficits
--- NOTE | 2023-09-05 11:14 | REH.PTDLY ---
Physical Therapy Daily Note PT Daily Note/Assess Start: 09/03/23 13:31 Freq: Status: Active Protocol: Document 09/05/23 10:53 [id number] (Rec: 09/05/23 11:10 [id number]) Physical Therapy Daily Note/Assessment Time In 10:19 Time Out 10:29 Subjective Patient did not respond when asked about pain. Patient received seated EOB and requests to shower. Nursing Aid notified of patient request. Patient has difficulty verbalizing answers and uses head movements to communicate secondary to breathing issues. Therapeutic Exercise Minutes (minutes) 7 Therapeutic Exercise Units 1 Therapeutic Exercise Treatment Seated EOB for JOSEPH LE: ankle pumps, LAQ's, marching, hip ADD w/ pillow, hip ABD. Patient able to maintain seated balance, but has kyphotic posture and labored breathing with exertion. Verbal cues to slow pace of reps and to move through entire available ROM for maximal benefit. Therapeutic Activity Minutes (minutes) 3 Therapeutic Activity Units 0 Chair Transfer Ability Contact Guard Assist,1 Person Assist Therapeutic Activity Comments MAX A +1 to dirk slipper socks in sitting prior to ambulation. Patient transferred sit to stand to RW with CGA +1. Ambulated ~10 ft. x 1 with RW with CGA to MIN A +1, patient able to SLS with MIN to MOD A while slippers socks were doffed while holding RW. Patient placed in shower and care handed off to nursing Aid. Total Therapy Minutes 10 Total Physical Therapy Units 1 Daily Note Summary Patient with labored breathing with exertion. Patient impulsive with functional movements for ther ex and transfers. Patient would benefit from rehab to address functional deficits
--- NOTE | 2023-09-05 11:15 | REH.PTDLY ---
Physical Therapy Daily Note PT Daily Note/Assess Start: 09/03/23 13:31 Freq: Status: Active Protocol: Document 09/05/23 10:53 [id number] (Rec: 09/05/23 11:10 [id number]) Physical Therapy Daily Note/Assessment Time In 10:19 Time Out 10:29 Subjective Patient did not respond when asked about pain. Patient received seated EOB and requests to shower. Nursing Aid notified of patient request. Patient has difficulty verbalizing answers and uses head movements to communicate secondary to breathing issues. Therapeutic Exercise Minutes (minutes) 7 Therapeutic Exercise Units 1 Therapeutic Exercise Treatment Seated EOB for JOSEPH LE: ankle pumps, LAQ's, marching, hip ADD w/ pillow, hip ABD. Patient able to maintain seated balance, but has kyphotic posture and labored breathing with exertion. Verbal cues to slow pace of reps and to move through entire available ROM for maximal benefit. Therapeutic Activity Minutes (minutes) 3 Therapeutic Activity Units 0 Chair Transfer Ability Contact Guard Assist,1 Person Assist Therapeutic Activity Comments MAX A +1 to dirk slipper socks in sitting prior to ambulation. Patient transferred sit to stand to RW with CGA +1. Ambulated ~10 ft. x 1 with RW with CGA to MIN A +1, patient able to SLS with MIN to MOD A while slippers socks were doffed while holding RW. Patient placed in shower and care handed off to nursing Aid. Total Therapy Minutes 10 Total Physical Therapy Units 1 Daily Note Summary Patient with labored breathing with exertion. Patient impulsive with functional movements for ther ex and transfers. Patient would benefit from rehab to address functional deficits
--- NOTE | 2023-09-05 11:15 | REH.PTDLY ---
Physical Therapy Daily Note PT Daily Note/Assess Start: 09/03/23 13:31 Freq: Status: Active Protocol: Document 09/05/23 10:53 [id number] (Rec: 09/05/23 11:10 [id number]) Physical Therapy Daily Note/Assessment Time In 10:19 Time Out 10:29 Subjective Patient did not respond when asked about pain. Patient received seated EOB and requests to shower. Nursing Aid notified of patient request. Patient has difficulty verbalizing answers and uses head movements to communicate secondary to breathing issues. Therapeutic Exercise Minutes (minutes) 7 Therapeutic Exercise Units 1 Therapeutic Exercise Treatment Seated EOB for JOSEPH LE: ankle pumps, LAQ's, marching, hip ADD w/ pillow, hip ABD. Patient able to maintain seated balance, but has kyphotic posture and labored breathing with exertion. Verbal cues to slow pace of reps and to move through entire available ROM for maximal benefit. Therapeutic Activity Minutes (minutes) 3 Therapeutic Activity Units 0 Chair Transfer Ability Contact Guard Assist,1 Person Assist Therapeutic Activity Comments MAX A +1 to dirk slipper socks in sitting prior to ambulation. Patient transferred sit to stand to RW with CGA +1. Ambulated ~10 ft. x 1 with RW with CGA to MIN A +1, patient able to SLS with MIN to MOD A while slippers socks were doffed while holding RW. Patient placed in shower and care handed off to nursing Aid. Total Therapy Minutes 10 Total Physical Therapy Units 1 Daily Note Summary Patient with labored breathing with exertion. Patient impulsive with functional movements for ther ex and transfers. Patient would benefit from rehab to address functional deficits
[2023-09-05 11:29] LABS: Glucometer 337 mg/dL (74-106)
[2023-09-05 11:30] VITALS: O2SAT 93
[2023-09-05] MEDS: INSULIN ASPART 300 UNIT/3 ML PEN SUBQ ×2 (11:32→12:07)
--- NOTE | 2023-09-05 11:59 | P.DS_ITS ---
DS: Providers Provider Date of admission: 09/02/23 05:43 Primary care physician: Shaikh Jian MD Consults: 09/02/23 Consult to Supervisor Bindery Routine Reason for consult:: Food/Nutrition 09/02/23 06:59 Physical Therapy Eval and Treat Routine Reason for consultation: Ambulatory dysfunction/weakness 09/02/23 10:19 Occupational Therapy Eval and Treat Routine Reason for consultation: General weakness; failure to thrive Has provider been notified: No DS: Diagnosis Discharge Diagnosis (1) Community acquired pneumonia: Qualifiers: Laterality: unspecified laterality Qualified Code(s): J18.9 - Pneumonia, unspecified organism (2) Delirium due to multiple etiologies: (3) Acute hypoxic respiratory failure: (4) Chronic obstructive pulmonary disease with (acute) exacerbation: (5) Lactic acidosis: (6) Hyperglycemia due to type 2 diabetes mellitus: Qualifiers: Diabetes mellitus terminal carman insulin use: with terminal carman use Qualified Code(s): E11.65 - Type 2 diabetes mellitus with hyperglycemia; Z79.4 - halfway (current) use of insulin (7) Hypertension: Qualifiers: Hypertension type: primary hypertension Qualified Code(s): I10 - Essential (primary) hypertension (8) History of traumatic brain injury: (9) Anxiety about health: DS: Summary Hospital Course Hospital Course: Reason for admission: See ER note and H&P for details. 62 y/o male with a history of COPD presents to ER with SOB for several days. SOB with exertion and frequent cough. Developed nausea and emesis. To ER and WBC elevated. Lactate elevated at 3.3 and glucose 517. Chest x-ray showed pneumonia and admitted. Hospital course: Started IV fluids and antibiotics. Gave duonebs for SOB. Lactate elevated but sepsis was ruled out. Patient improved clinically. Developed delirium overnight and severe confusion. Very agitated and pulled out IVs. Started hitting nurses and had to be sedated. Continued to have confusion and required 1 on 1 attention. Added seroquel at bedtime. Discussed options and felt patient would benefit from admission to geriatric psychiatry facility for medication adjustment. Initially planned on pink slip. Patient became more alert and less confused. Discussed hospital course and confusion. Patient agreeable to inpatient admission at [facility] and will voluntarily sign in. Transferred to [facility] in stable condition. Time Spent with Patient Time attestation: Total time spent providing and/or coordinating discharge services: Exam Constitutional Vital Signs, click to edit/add: Last Vital Signs Temp 98 F 09/05/23 08:09 Pulse 88 09/05/23 08:09 Resp 18 09/05/23 08:09 BP 141/96 H 09/05/23 08:09 Pulse Ox 93 L 09/05/23 11:30 O2 Del Method Room Air 09/05/23 11:30 O2 Flow Rate 2 09/01/23 19:15 Documenting provider has reviewed patient's vital signs: yes Common normals: no apparent distress, oriented x3 and alert HENMT Common normals: normocephalic Eye Common normals: PERRL and EOMs intact bilaterally Respiratory Common normals: normal respiratory effort and clear to auscultation bilaterally Cardio Common normals: regular rate, regular rhythm, no gallops, no murmurs and no rub GI Common normals: Normal to inspection, nondistended, normoactive bowel sounds present and non-tender Extremity Common normals: no pedal edema DS: Data Data Completed and Pending Labs on day of discharge: Labs from last 24 hours 09/05/23 09/05/23 09/04/23 11:28 07:36 23:20 Adenovirus (PCR) Not detected C. pneumoniae DNA (PCR) Not detected Coronavirus Type OC43 Not detected Coronavirus Type HKU1 Not detected Coronavirus Type 229E Not detected Coronavirus Type NL63 Not detected Human Metapneumovir PCR Not detected M. pneumoniae (PCR) Not detected Parainfluenza PCR Not detected Parainfluenza 2 (PCR) Not detected Parainfluenza 3 (PCR) Not detected Parainfluenza 4 (PCR) Not detected RSV (RT-PCR) Not detected Entero/Rhino (PCR) Not detected SARS-CoV-2 (PCR) Not detected Bordetella pertussis (PCR) Not detected B parapertussis DNA PCR Not detected Influenza Type A (PCR) Not detected Influenza Type B (PCR) Not detected POC Glucose 337 H 96 09/04/23 09/04/23 09/04/23 23:04 21:21 17:20 Adenovirus (PCR) C. pneumoniae DNA (PCR) Coronavirus Type OC43 Coronavirus Type HKU1 Coronavirus Type 229E Coronavirus Type NL63 Human Metapneumovir PCR M. pneumoniae (PCR) Parainfluenza PCR Parainfluenza 2 (PCR) Parainfluenza 3 (PCR) Parainfluenza 4 (PCR) RSV (RT-PCR) Entero/Rhino (PCR) SARS-CoV-2 (PCR) Bordetella pertussis (PCR) B parapertussis DNA PCR Influenza Type A (PCR) Influenza Type B (PCR) POC Glucose 95 67 L 91 Discharge Plan Discharge Disposition: [facility] Acute Care Hospital Condition: Fair
--- NOTE | 2023-09-05 13:49 | PC.NURSE ---
calling report to pj at this time to mahesh RUIZ.
[2023-09-05 16:09] LABS: Vitamin B1 (Thiamine), Blood 120.7 nmol/L (66.5-200.0)
== END 2023-09-05 13:47 | DRG 139 ==
LOC: ER 19:39 → MS 09-02 05:34
PROVIDERS: Emergency Medicine; Nurse Practitioner Acute Care; Admitting Provider Internal Medicine; Emergency Provider Internal Medicine; PCP Internal Medicine; Visit Provider Nurse Practitioner
DX: J18.9 Pneumonia, unspecified organism (principal); J96.01 Acute respiratory failure with hypoxia; J43.9 Emphysema, unspecified; E87.1 Hypo-osmolality and hyponatremia; E11.65 Type 2 diabetes mellitus with hyperglycemia; I10 Essential (primary) hypertension; E78.00 Pure hypercholesterolemia, unspecified; F32.A Depression, unspecified; G47.00 Insomnia, unspecified; Z96.649 Presence of unspecified artificial hip joint; Z79.4 Long term (current) use of insulin; Z79.82 Long term (current) use of aspirin; Z79.899 Other long term (current) drug therapy; E87.20 Acidosis, unspecified; F17.210 Nicotine dependence, cigarettes, uncomplicated; F11.11 Opioid abuse, in remission; Z79.84 Long term (current) use of oral hypoglycemic drugs; T38.3X6A Underdosing of insulin and oral hypoglycemic [antidiabetic] drugs, initial encounter; Z91.128 Patient's intentional underdosing of medication regimen for other reason; G89.29 Other chronic pain; Z83.3 Family history of diabetes mellitus; Z82.49 Family history of ischemic heart disease and other diseases of the circulatory system; Z82.3 Family history of stroke; Z80.9 Family history of malignant neoplasm, unspecified; Z83.6 Family history of other diseases of the respiratory system; R64 Cachexia; F41.9 Anxiety disorder, unspecified; N40.0 Benign prostatic hyperplasia without lower urinary tract symptoms; R45.1 Restlessness and agitation; R41.0 Disorientation, unspecified; E86.0 Dehydration; Z87.820 Personal history of traumatic brain injury; Z68.1 Body mass index [BMI] 19.9 or less, adult
CPT/HCPCS: 0202U; 36415; 36569; 36592; 51798; 71045; 80048; 80053; 80061; 80307; 81003; 82009; 82800; 82948; 83605; 83735; 83880; 84425; 84484; 85025; 87070; 87420; 87804; 87811; 93005; 94640; 94667; 94668; 94761; 96361; 96365; 96366; 96367; 96372; 96375; 96376; 97110; 97161; 97165; 97530; 97535; 99285; C1887; J0456; J0696; J1630; J1650; J1885; J2060; J2405; J3486; J7512

== ENCOUNTER 2023-10-14 20:44 | Outpatient (REF) | payer OTHER, SELFPAY ==
--- OUTSIDE RECORDS SUMMARY | 2023-10-14 20:53 | XMS_ITS | CCD ---
Author Name Unknown Address [address] [place] [address] [facility] Care Team Providers Care Building Mechanic Name Role Phone PROVIDER, UNKNOWN Attending Unavailable PROVIDER, UNKNOWN Admitting Unavailable PAY ., DR OVERTON Consulting Unavailable PAY ., DR OVERTON Attending Unavailable PAY ., DR OVERTON Admitting Unavailable FAWWAD, VOSS H Primary Care Unavailable CHRISTIANO TORRES Consulting Unavailable TARIK GARZA Consulting Unavailable MALLORY, DR SOPHIE Hunter Consulting Unavailable BELINDA BERNSTEIN Attending Unavailable BELINDA BERNSTEIN Admitting Unavailable FAWWAD, VOSS H Primary Care Unavailable BELINDA BERNSTEIN Consulting Unavailable TARA MASON Consulting Unavailable PREMA ., DR JOHNSON Consulting Unavailable PREMA ., DR JOHNSON Attending Unavailable PREMA ., DR JOHNSON Admitting Unavailable FAWWAD, VOSS [...] FINCH Attending Unavailable JOSÉ FINCH Admitting Unavailable PATRIZIA, DR FELIX Garcia Consulting Unavailable FAWWAD, VOSS H Primary Care Unavailable FAWWAD, VOSS H Attending Unavailable FAWWAD, VOSS H Admitting Unavailable FAWWAD, VOSS H Consulting Unavailable IVON CLARKE Consulting Unavailable FAWWAD, VOSS H Primary Care Unavailable IVON CLARKE Attending Unavailable TRICIAIVON Admitting Unavailable FAWWAD, VOSS H Primary Care Unavailable HIGHLANDER, JOSÉ D Attending Unavailable HIGHLANDER, PETER Marco Antonio Admitting Unavailable FAWWAD, VOSS H Primary Care Unavailable HIGHLANDER, PETER Marco Antonio Admitting Unavailable HIGHLANDER, PETER Marco Antonio Attending Unavailable FAWWAD, VOSS H Primary Care [...] Unavailable FAWWAD, VOSS H Primary Care Unavailable RICE, DR FELIX Garcia Consulting Unavailable ZIEBER, DR SOPHIE Hunter Consulting Unavailable NADERER, DR BHAVYA Magaña Consulting Unavailable HUANG .BORA Consulting Unavailable FAWWAD, VOSS H Consulting Unavailable GOMEZ, BANDAR Consulting Unavailable HAY ., DR JOHNSON Attending Unavailable HAY ., DR JOHNSON Admitting Unavailable GRECHNY ., DOMONIQUE RAYMOND Consulting Unavailabl e FAWWAD, VOSS H Primary Care Unavailable HAY ., DR JOHNSON Consulting Unavailable CLARE COY Consulting Unavailable Unljuanita, Lashaun Consulting Unavailable MD Zachariah Saldaña Jr Emergency Provider NON STAFF Primary Care Provider Unavailabl DO Devin Seth Admit Provider DO Devin Starks Attending Provider [phone] NON STAFF Primary Care Unavailable Honorio Ibarra Admitting Unavailab Honorio [place] Attending Unavailab Devin Dunaway Admitting Unavailable NON STAFF Primary Care Unavailable Devin Starks Attending Unavailable Martha Johnson Consulting Unavailable Olena Ferraro [...] Hyacinth Henning Consulting Unavailable Choco Gloria Consulting Unavailab Fidel Verdugo Consulting Unavailable Shabbir Wilde Consulting Unavailable Eyad Stoddard Consulting Unavailable Patricia Beauchamp Consulting Unavailable Domenico Inman Consulting Unavailable Blayne Lemon Consulting Unavailable ObMadeleine delgado Consulting Unavailable Daniel Cobb Consulting Unavailable DaromaEnder hunter Consulting Unavailable Mahogany Pedraza Consulting Unavailable Yohana Bolaños Consulting Unavailable Alahmad Alaangelito Consulting Unavailable Bobby Jacobson Consulting Unavailable Elva Jean Baptiste Consulting Unavailable Joon Pascal Consulting Unavailable Unavailable Primary Care Provider Unavailmichael Villar MD, [facility] Primary Care Provider STEPHANIE HERNANDEZ Referring Unavailable STEPHANIE HERNANDEZ Referring Unavailable LUNA CARROLL Attending Unavailable LA STEEL Referring Unavailable Medications Current Medications Medication Drug Class(es) Dates Sig (Normalized) Sig (Original) acetaminophen 325 mg / HYDROcodone bitartrate 5 mg oral tablet (3 sources) Opioid Agonist Start: 03-21-2020 take 1 tablet by mouth every four to six hours Hydrocodone-Aceta minophen Active 1 TAB PO EVERY 4-6 HOURS 70 March 21, 2020 Start: 03-21-2020 End: 03-21-2020 take 1 tablet by mouth every six hours Hydrocodone-Acetaminophen Discontinued 1 TAB PO Q6H 56 14 March 21, 2020 March 21, 2020 8:01am Start: 03-14-2020 End: 03-21-2020 take 1 tablet by mouth every eight hours Hydrocodone-Acetaminophen Discontinued 1 TAB PO Q8H March 14, 2020 12:00am March 21, 2020 8:00am [id number] 200 actuat albuterol 0.09 mg/actuat metered dose inhaler (1 source) beta2-Adrenergic Agonist Start: 02-14-2020 take 90 ug by inhalation four times daily Albuterol Sulfate Active 90 MCG INHALATION Four times daily February 14, 2020 12:00am 120 actuat albuterol 0.1 mg/actuat / ipratropium bromide 0.02 mg/actuat inhalation spray (1 source) Anticholinergic, beta2-Adrenergic Agonist Start: 02-14-2020 take 20-100 ug by inhalation four times daily Ipratropium-Albu terol (Combivent Respimat) 20-100 mcg/actuation mist Active 20 - 100 PUFF INHALATION Four times daily February 14, 2020 12:00am amLODIPine 10 mg oral tablet (3 sources) Dihydropyridine Calcium Channel Yvonne Start: 02-14-2020 take 10 mg by mouth once daily Amlodipine Active 10 MG PO Daily February 14, 2020 12:00am amLODIPine 10 mg / benazepril hydrochloride 20 mg oral capsule (2 sources) Dihydropyridine Calcium Channel Yvonne, Angiotensin Converting Enzyme Inhibitor Start: 10-03-2022 take 1 capsule by mouth once daily amLODIPine-benaz epril (LOTREL) 10-20 MG per capsule Take 1 capsule by mouth daily 0 10/03/2022 Active aspirin 81 mg delayed release oral tablet (3 sources) Platelet Aggregation Inhibitor, Nonsteroidal Anti-inflammatory Drug Start: 02-14-2020 take 81 mg by mouth once daily Aspirin Active 81 MG PO Daily February 14, 2020 12:00am atorvastatin 40 mg oral tablet (3 sources) HMG-CoA Reductase Inhibitor Start: 02-14-2020 take 1 tablet by mouth once daily atorvastatin (LIPITOR) 40 MG tablet Take 1 tablet by mouth daily 0 01/16/2021 Active clonazePAM 0.5 mg oral tablet (2 sources) Benzodiazepine take 2 tablets by mouth twice daily as needed clonazePAM (KLONOPIN) 0.5 MG tablet Take 1 tablet by mouth 2 times daily as needed for Anxiety. Max Daily Amount: 1 mg 0 Active diclofenac sodium 0.01 mg/mg topical gel (1 source) Nonsteroidal Anti-inflammatory Drug Start: 02-14-2020 apply 2 g topically three times daily Diclofenac Sodium Active 2 GM TOPICAL Three times daily February 14, 2020 12:00am escitalopram 20 mg oral tablet (4 sources) Serotonin Reuptake Inhibitor Start: 02-04-2021 take 1 tablet by mouth once daily escitalopram (LEXAPRO) 20 MG tablet Take 1 tablet by mouth daily 0 02/04/2021 Active Start: 02-14-2020 take 10 mg by mouth [...] MG PO Daily February 14, 2020 12:00am glipiZIDE 10 mg oral tablet (4 sources) Sulfonylurea Start: 09-15-2023 take 1 tablet by mouth once daily glipiZIDE (Glucotrol) 10 MG tablet Indications: Type 2 diabetes mellitus with diabetic polyneuropathy (HCC) (CMS/HCC) TAKE 1 TABLET BY MOUTH DAILY 90 tablet 0 09/15/2023 Active take 1 tablet by mouth once deven y glipiZIDE (GLUCOTROL XL) 10 MG extended release tablet Take 1 tablet by mouth daily 0 Active haloperidol 5 mg oral tablet (2 sources) Typical Antipsychotic take 1 tablet by mouth every six hours as needed haloperidol (HALDOL) 5 MG tablet Take 1 tablet by mouth every 6 hours as needed for Agitation 0 Active hydrOXYzine hydrochloride 50 mg oral tablet (2 sources) Antihistamine take 0.5 tablet by mouth once daily hydrOXYzine HCl (ATARAX) 50 MG tablet Take 0.5 tablets by mouth daily 0 Active 3 ml insulin aspart, human 100 unt/ml pen injector (2 sources) Insulin Analog insulin aspart (NOVOLOG FLEXPEN) 100 UNIT/ML injection pen Inject into the skin 3 times daily (before meals) 0 Active 3 ml insulin degludec 100 unt/ml pen injector (1 source) Insulin Analog Start: 02-14-20 Insulin Degludec (Tresiba Flextouch U-100) 100 unit/mL (3 mL) insulin pen Active 80 UNIT SUBCUT Daily February 14, 2020 12:00am sensor 3 ml insulin glargine 100 unt/ml pen injector (2 sources) Insulin Analog Start: 10-31-19 Insulin Glargine w/ Trans Port 100 UNIT/ML SOPN Inject 40 Units into the skin 2 times daily 0 10/30/2022 Active lisinopril 40 mg oral tablet (4 sources) Angiotensin Converting Enzyme Inhibitor Start: 03-14-20 take 40 mg by mouth once daily Lisinopril Active 40 MG PO Daily March 14, 2020 12:00am Start: 02-14-2020 End: 02-15-2020 take 40 mg by mouth once daily Lisinopril Discontinued 40 MG PO Daily February 14, 2020 12:00am February 15, 2020 9:31am take 1 tablet by payam th once daily lisinopril (PRINIVIL;ZESTRIL) 2.5 MG tablet Take 1 tablet by mouth daily 0 Active LORazepam 1 mg oral tablet (2 sources) Benzodiazepine take 1 tablet by mouth every six hours as needed for anxiety LORazepam (ATIVAN) 1 MG tablet Take 1 tablet by mouth every 6 hours as needed for Anxiety. Max Daily Amount: 4 mg 0 Active metoprolol tartrate 25 mg oral tablet (4 sources) beta-Adrenergic Yvonne Start: 09-15-19 24 take 1 tablet by mouth twice daily metoprolol tartrate (Lopressor) 25 MG tablet Indications: Essential (primary) hypertension (CMS/HCC) TAKE 1 TABLET BY MOUTH TWICE DAILY 180 tablet 0 09/15/2023 Active ondansetron 4 mg disintegrating oral tablet (1 source) Serotonin-3 Receptor Antagonist Start: 02-14-20 take 4 mg by mouth every six hours Ondansetron Active 4 MG PO Q6H February 14, 2020 12:00am pregabalin 75 mg oral capsule (5 sources) Start: 02-15-20 End: 03-14-20 20 take 75 mg by mouth twice daily Pregabalin Active 75 MG PO Twice daily March 14, 2020 8:38am Start: 02-14-2020 End: 02-15-2020 take 150 mg by mouth three times daily Pregabalin Discontinued 150 MG PO Three times daily February 14, 2020 12:00am February 15, 2020 9:31am take 1 capsule by [facility] three times daily pregabalin (LYRICA) 75 MG capsule Take 1 capsule by mouth 3 times daily. Max Daily Amount: 225 mg 0 Active QUEtiapine 100 mg oral tablet (2 sources) Atypical Antipsychotic Start: 10-03-2022 take 0.5 tablet by mouth once daily QUEtiapine (SEROQUEL) 100 MG tablet Take 0.5 tablets by mouth daily 0 10/03/2022 Active tamsulosin hydrochloride 0.4 mg oral capsule (2 sources) alpha-Adrenergic Yvonne Start: 10-03-2022 take 1 capsule by mouth once daily tamsulosin (FLOMAX) 0.4 MG capsule Take 1 capsule by mouth daily 0 10/03/2022 Active 10 actuat tiotropium 0.0025 mg/actuat inhalation spray (5 sources) Anticholinergic Start: 09-15-2023 take 2 puff(s) by mouth once daily Spiriva Respimat 2.5 MCG/ACT inhaler Indications: Chronic obstructive pulmonary disease, unspecified (CMS/HCC) INHALE 2 PUFFS BY MOUTH DAILY 4 g 0 09/15/2023 Active Start: 02-14-2020 take 1 puff(s) by in halation once daily Tiotropium [place] (Spiriva Respimat) 2.5 mcg/actuation mist Active 2 PUFF INHALATION Daily February 14, 2020 12:00am take 2 puff(s) by in halation once daily tiotropium (SPIRIVA RESPIMAT) 2.5 MCG/ACT AERS inhaler Inhale 2 puffs into the lungs daily 0 Active traZODone hydrochloride 50 mg oral tablet (2 sources) Serotonin Reuptake Inhibitor take 1 tablet by mouth once daily traZODone (DESYREL) 50 MG tablet Take 1 tablet by mouth nightly 0 Active valsartan 320 mg oral tablet (2 sources) Angiotensin 2 Receptor Yvonne take 1 tablet by mouth once daily valsartan (DIOVAN) 320 MG tablet Take 1 tablet by mouth daily 0 Active Completed/Discontinued Medications Medication Drug Class(es) Dates Sig (Normalized) Sig (Original) iopamidol (ISOVUE-370) 76 % injection 75 mL (1 source) Start: 09-06-2023 End: 09-06-2023 iopamidol (ISOVUE-370) 76 % injection 75 mL Problems Active Problems Problem Classification Problem Date Documented Da te Episodic/Chronic Abdominal pain (2 sources) Generalized abdominal pain; Translations: [Generalized abdominal pain] Onset: 09-06-2023 09-07-2023 Episodic Acquired foot deformities (1 source) Other [...] 12-10-2022 Chronic Diseases of white blood cells (3 sources) Leukocytosis; Translations: [Elevated white blood cell count, unspecified] Onset: 09-11-2023 02-14-2020 Chronic Disorders of lipid metabolism (1 source) Hyperlipidemia, unspecified; Translations: [HYPERLIPIDEMIA UNSPECIFIED] Onset: 10-29-2022 Chronic Esophageal disorders (1 source) Gastro-esophageal reflux disease without esophagitis; Translations: [GERD WITHOUT ESOPHAGITIS] Onset: 08-20-2022 Chronic Essential hypertension (1 source) Essential (primary) hypertension; Translations: [ESSENTIAL PRIMARY HYPERTENSION] Onset: 12-10-2022 Chronic Fluid and electrolyte disorders (2 sources) Dehydration; Translations: [Hypo-osmolality and hyponatremia] Onset: 08-26-2022 Episodic Genitourinary symptoms and ill-defined conditions (2 sources) Frequency of micturition; Translations: [Frequency of micturition] Onset: 09-17-2023 Episodic Hyperplasia of prostate (1 source) Benign prostatic hyperplasia without lower urinary tract symptoms; Translations: [BENIGN PROSTATIC HYPRPLASIA WO LUTS] Onset: 12-10-2022 Chronic Mycoses (1 source) Tinea pedis; Translations: [TINEA PEDIS] Onset: 10-29-2022 Episodic Other aftercare (1 source) penitentiary (current) use of aspirin; Translations: [ASSISTED CURRENT USE OF ASPIRIN] Onset: 12-10-2022 Episodic Other aftercare (1 source) Other custodial (current) drug therapy; Translations: [OTH ASSISTED CURRENT DRUG THERAPY] Onset: 12-10-2022 Episodic Other aftercare (1 source) penitentiary (current) use of insulin; Translations: [BREAKING MACHINE OPERATOR CURRENT USE OF INSULIN] Onset: 12-10-2022 Episodic Other aftercare (1 source) 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 (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) use of oral hypoglycemic drugs; Translations: [BREAKING MACHINE OPERATOR USE ORAL HYPOGLYCEMIC DX] Onset: 12-02-2022 Episodic Other aftercare (1 source) penitentiary (current) use of inhaled steroids; Translations: [BREAKING MACHINE OPERATOR USE OF INHALED STEROIDS] Onset: 10-29-2022 Episodic [...] source) Hypercalcemia; Translations: [Hypercalcemia] 02-14-2020 Chronic Other nutritional; endocrine; and metabolic disorders (2 sources) Abnormal weight gain; Translations: [Abnormal weight gain] Onset: 09-29-2023 Episodic Other skin disorders (1 source) Corns and [...] Test Name Value Interpretation Reference Range Facility ALL PRO BNPon 09-29-2023 Natriuretic peptide B (Bld) [Mass/Vol] 149 pg/mL [facility] - 300 pg/mL [facility] Comment on above: An age-independent cutoff point of 300 pg/ml has a 98% negative predictive value excluding acute heart failure. Original Ordering Provider: [facility] Brain Natri. Peptideon 09-29 Natriuretic peptide B (Bld) [Mass/Vol] 149 pg/mL Normal <300 [facility] Comment on above: Result Comment: An age-independent cutoff point of 300 pg/ml has a 98% negative predictive value excluding acute heart failure. Performed By: #### B SIGN LANGUAGE TEACHER #### [facility] [address] [place] [address] Power Grader Operator: Felix Prasad MD Brain Natriuretic Peptideon 09-29-2023 Natriuretic peptide B (Bld) [Mass/Vol] 149 pg/mL [facility] - 300 pg/mL [facility] Comment on above: An age-independent cutoff point of 300 pg/ml has a 98% negative predictive value excluding acute heart failure. [facility] Cult,Urineon 09-18-2023 Cult,Urine Specimen Description .VOIDED URINE Culture NO SIGNIFICANT GROWTH Report Status FINAL 09/18/2023 Normal [facility] Comment on above: Performed By: #### U RC #### [facility] [address] [facility], [place] [id number] Power Grader Operator: Trever Reed MD [facility] [address] [place] [address] [place] [address] Power Grader Operator: Felix Prasad MD ALL URINALYSISon 09-17-2023 [facility] BILIRUBIN, SEMIQT,UR Negative [facility]G [facility], [facility] CL[facility], URINE Clear CLEAR [facility] COL[facility] Yellow YEL [facility] GLUCOSE,SEMI-QNT,UR Negative NEG mg/dL [facility] KETONES, URINE Negative NEG mg/dL [facility] LEUKOCYTE ESTERASE Negative NEG [facility] NITRITE,[facility] Negative NEG [facility] PH,UR 6.5 5.0 - 9.0 [facility] PROTEIN, SEMI-QNT,UR Negative NEG mg/dL [facility] SPEC. GRAVITY,UR 1.015 1.010 - 1.020 [facility] UROBILINOGEN,UR Normal 0.0 - 1 .0 EU/dL [facility] Original [facility]ing [facility], [facility]ineon 2023 Bilirubin, SemiQt,Ur Negative Normal NEG [facility] Comment on above: Performed By: #### U A #### [address] [place] [address] Power Grader Operator: Felix Prasad MD Blood, Urine Negative Normal NEG [facility] Comment on above: Performed By: #### U A #### [address] [place] [address] Power Grader Operator: Felix Prasad MD Clarity (U) Clear Normal CLEAR [facility] Comment on above: Performed By: #### U A #### [address] [place] [address] Power Grader Operator: Felix Prasad MD Color (U) Yellow Normal YEL [facility] Comment on above: Performed By: #### U A #### [facility] [address] [place] [address] [place] [place], [place] [id number] Power Grader Operator: Felix Prasad MD Glucose Ql (U) Negative Normal NEG [facility] Comment on above: Performed By: #### U A #### [facility] [address] [place] [address] [place], [place] [id number] Power Grader Operator: Felix Prasad MD Ketones Ql (U) Negative Normal NEG [facility] Comment on above: Performed By: #### U A #### [address] [place], [facility] Power Grader Operator: Felix Prasad MD Leukocyte esterase Test strip Ql (U) Negative Normal NEG [facility] Comment on above: Performed By: #### U A #### [facility] [address] [place] [address] Dr[place], [facility] Power Grader Operator: Felix Prasad MD Nitrite,Ur Negative Normal NEG [facility] Comment on above: Performed By: #### U A #### [address] [place], [place] [id number] Power Grader Operator: Felix Prasad MD PH,Ur 6.5 Normal 5.0-9.0 [facility] Comment on above: Performed By: #### U A #### [facility] [address] [place] [address] [place] [place], [place] [id number] Power Grader Operator: Felix Prasad MD Protein Ql (U) Negative Normal NEG [facility] Comment on above: Performed By: #### U A #### [facility] [address] [place] [address] [place] [address] Power Grader Operator: Felix Prasad MD Spec. [place],Ur 1.015 Normal 1.010-1.02 0 [facility] Comment on above: Performed By: #### U A #### [facility] [address] [place], [place] [address] Power Grader Operator: Felix Prasad MD Urobilinogen,Ur Normal Normal 0.0-1.0 [facility] Comment on above: Performed By: #### U A #### [facility] [address] [place], [place] [address] Power Grader Operator: Felix Prasad MD CBC with Diffon 09-11-2023 Abs. Basophil 0.08 k/uL Normal 0.00-0.20 [facility] Comment on above: Performed By: #### C DP #### [facility] [address] [place], [place] [address] Power Grader Operator: Felix Prasad MD Abs.Imm.Granulocyte 0.12 k/uL Normal 0.00-0.30 [facility] Comment on above: Performed By: #### C DP #### [facility] [address] [place], [place] [address] Power Grader Operator: Felix Prasad MD Abs.Neutrophil (Seg) 6.52 k/uL Normal 1.50-8.10 [facility] Comment on above: Performed By: #### C DP #### [address] [place], [place] [address] Power Grader Operator: Felix Prasad MD Basophils/100 WBC (Bld) 1 % Normal 0-2 [facility] Comment on above: Performed By: #### C DP #### [facility] [address] [place], [place] [address] Power Grader Operator: Felix Prasad MD Eosinophils (Bld) [#/Vol] 0.71 10*3/uL High 0.00-0.44 [facility] Comment on above: Performed By: #### C DP #### [facility] [address] [place], [place] [id number] Power Grader Operator: Felix Prasad MD Eosinophils/100 WBC (Bld) 7 % High 1-4 [facility] Comment on above: Performed By: #### C DP #### [facility] [address] [place], [place] [id number] Power Grader Operator: Felix Prasad MD Erythrocyte distribution width (RBC) [Ratio] 14.3 % Normal 11.8-14.4 [facility] Comment on above: Performed By: #### C DP #### [facility] [address] [place], [place] [id number] Power Grader Operator: Felix Prasad MD Hematocrit (Bld) [Volume fraction] 40.5 % Low 40.7-50.3 [facility] Comment on above: Performed By: #### C DP #### [facility] [address] [place] [address] Dr. [place], [facility] Power Grader Operator: Felix Prasad MD Hemoglobin (Bld) [Mass/Vol] 14.1 g/dL Normal 13.0-17.0 [facility] Comment on above: Performed By: #### C DP #### [address] [place], [place] [id number] Power Grader Operator: Felix Prasad MD Immature granulocytes/100 WBC (Bld) 1 % High 0 [facility] Comment on above: Performed By: #### C DP #### [facility] [address] [place] [address] Dr[place], [facility] Power Grader Operator: Felix Prasad MD Lymphocytes (Bld) [#/Vol] 2.61 10*3/uL Normal 1.10-3.70 [facility] Comment on above: Performed By: #### C DP #### [address] [place] [address] Power Grader Operator: Felix Prasad MD Lymphocytes/100 WBC (Bld) 24 % Normal 24-43 [facility] Comment on above: Performed By: #### C DP #### [facility] [address] [place], [place] [phone] Power Grader Operator: Felix Prasad MD MCH (RBC) [Entitic mass] 31.9 pg Normal 25.2-33.5 [facility] Comment on above: Performed By: #### C DP #### [facility] [address] [place], [facility] Power Grader Operator: Felix Prasad MD MCHC (RBC) [Mass/Vol] 34.8 g/dL Normal 28.4-34.8 [facility] Comment on above: Performed By: #### C DP #### [address] [place], [facility] Power Grader Operator: Felix Prasad MD MCV (RBC) [Entitic vol] 91.6 fL Normal 82.6-102.9 [facility] Comment on above: Performed By: #### C DP #### [address] [place], [place] [id number] Power Grader Operator: Felix Prasad MD Monocytes (Bld) [#/Vol] 0.94 10*3/uL Normal 0.10-1.20 [facility] Comment on above: Performed By: #### C DP #### [facility] [address] [place] [address] Dr[address] [place], [facility] Power Grader Operator: Felix Prasad MD Monocytes/100 WBC (Bld) 9 % Normal 3-12 [facility] Comment on above: Performed By: #### C DP #### [facility] [address] [place], [facility] Power Grader Operator: Felix Prasad MD Neutrophil (Seg) 58 % Normal 36-65 [facility] Comment on above: Performed By: #### C DP #### [facility] [address] [place], [facility] Power Grader Operator: Felix Prasad MD NRBC Automated 0.0 per 100 WBC Normal 0.0 [facility] Comment on above: Performed By: #### C DP #### [address] [place] [address] Power Grader Operator: Felix Prasad MD Platelet mean volume (Bld) [Entitic vol] 10.4 fL Normal 8.1-13.5 [facility] Comment on above: Performed By: #### C DP #### [facility] [address] [place] [address] Power Grader Operator: Felix Prasad MD Platelets (Bld) [#/Vol] 332 10*3/uL Normal 138-453 [facility] Comment on above: Performed By: #### C DP #### [address] [place] [address] Power Grader Operator: Felix Prasad MD RBC (Bld) [#/Vol] 4.42 10*6/uL Normal 4.21-5.77 [facility] Comment on above: Performed By: #### C DP #### [address] [place] [address] Power Grader Operator: Felix Prasad MD WBC (Bld) [#/Vol] 11.0 10*3/uL Normal 3.5-11.3 [facility] Comment on above: Performed By: #### C DP #### [address] [place] [address] Power Grader Operator: Felix Prasad MD CT ABDOMEN PELVIS W IV CONTR Annabel 09-07-2023 CT ABDOMEN PELVIS W IV CONTRAST EXAMINATION: CT OF THE ABDOMEN AND PELVIS WITH CONTRAST 09/06/2023 9:11 pm TECHNIQUE: CT of the abdomen and pelvis was performed with the administration of intravenous contrast. Multiplanar reformatted images are provided for review. Automated exposure control, iterative reconstruction, and/or weight based adjustment of the mA/kV was utilized to reduce the radiation dose to as low as reasonably achievable. COMPARISON: None. HISTORY: ORDERING SYSTEM PROVIDED HISTORY: abdominal pain TECHNOLOGIST PROVIDED HISTORY: abdominal pain Decision Support Exception - unselect if not a suspected or confirmed emergency medical condition->Emergency Medical Condition (MA) FINDINGS: Lower Chest: Multifocal consolidations and tree-in-bud nodules are seen in the visualized lungs. Bronchiectatic changes are seen in the visualized right middle lobe and in the lower lobes. Organs: Liver: Liver is normal. No focal lesions are seen. Spleen: Normal. Pancreas: Normal Gallbladder: Normal. Adrenal glands: No discrete adrenal lesions are seen. Diffuse adrenal hyperplasia seen. Kidneys and ureters: There is no hydronephrosis. Nonobstructing calculus in the upper pole of the left kidney measures 2 mm in size. Focal hypodensity is seen in the posterior cortex of the left kidney superiorly measuring 2.8 cm in size. Ureters are non-dilated. Abdominal aorta and branches: Normal in caliber. IVC and portal vein: Normal in caliber. GI/Bowel: Distal esophagus is thickened. Stomach is over distended containing gastric food residue. Duodenum is normal in caliber. Small bowel loops are unremarkable. Large bowel loops demonstrated moderate amount of stool burden. No evidence of bowel obstruction. No evidence of appendicitis. Peritoneum/Retroperitoneu m: Normal PELVIS Normal reproductive organs Bones/Soft Tissues: No acute osseous abnormality is seen. Degenerative changes are seen in the lower lumbar spine. L2 compression deformity is seen with post augmentation changes. Left hip replacement hardware is noted. No soft tissue swelling is seen. IMPRESSION: 1. Multifocal consolidations and tree-in-bud nodules are seen in the visualized lungs. Bronchiectatic changes are seen in the right middle lobe and in the lower lobes. 2. Nonobstructing calculus in the upper pole of the left kidney measures 2 mm in size. 3. Focal hypodensity is seen in the posterior cortex of the left kidney superiorly measuring 2.8 cm in size. This may represent a complex cyst. Ultrasound or renal mass protocol CT/MR may be considered for further evaluation. 4. Distal esophagus is thickened. Stomach is over distended containing gastric food residue. The findings could represent delayed gastric emptying or gastric outlet obstruction. Endoscopic correlation may be needed. Interpreted by: Antoine Still MD Signed by: Antoine Still MD 09/06/23 Final result Normal [facility] CBC with Auto Differentialon 09-06-2023 Basophils (Bld) [#/Vol] 0.06 10*3/uL [facility] Basophils/100 WBC (Bld) 0 % 0 - 2 % [facility] Eosinophils (Bld) [#/Vol] 0.77 10*3/uL High [facility] Eosinophils/100 WBC (Bld) 5 % High 1 - 4 % [facility] Erythrocyte distribution width (RBC) [Ratio] 14.2 % 11.8 - 14.4 % [facility] Hematocrit (Bld) [Volume fraction] 38.4 % Low 40.7 - 50.3 % [facility] Hemoglobin (Bld) [Mass/Vol] 13.4 g/dL 13.0 - 17.0 g/dL [facility] Immature granulocytes (Bld) [#/Vol] 0.05 10*3/uL [facility] Immature granulocytes/100 WBC (Bld) 0 % 0 [facility] Interpretation and review of laboratory results Abnormal [facility] Lymphocytes/100 WBC (Bld) 15 % Low 24 - 43 % [facility] Lymphocytes/100 WBC (Bld) 2.37 % [facility] MCH (RBC) [Entitic mass] 31.2 pg 25.2 - 33.5 pg [facility] MCHC (RBC) [Mass/Vol] 34.9 g/dL High 28.4 - 34.8 g/dL [facility] MCV (RBC) [Entitic vol] 89.5 fL 82.6 - 102.9 fL [facility] Monocytes/100 WBC (Bld) 5 % 3 - 12 % [facility] Monocytes/100 WBC (Bld) 0.79 % [facility] Neutrophils/100 WBC (Bld) 75 % High 36 - 65 % [facility] Nucleated RBC/100 WBC (Bld) [Ratio] 0.0 % 0.0 per 100 WBC [facility] Platelet mean volume (Bld) [Entitic vol] 11.8 fL 8.1 - 13.5 fL [facility] Platelets (Bld) [#/Vol] 279 10*3/uL [facility] RBC (Bld) [#/Vol] 4.29 10*6/uL 4.21 - 5.77 m/uL [facility] Segmented neutrophils/100 WBC (Bld) 12.17 % High [facility] WBC other (Bld) [#/Vol] 16.2 High [facility] CBC with Diffon 09-06-2023 Abs. Basophil 0.06 k/uL Normal 0.00-0.20 [facility] Comment on above: Performed By: #### L TAVIA BARRERA, CDP #### [address] [place] [address] Power Grader Operator: Felix Prasad MD Abs.Imm.Granulocyte 0.05 k/uL Normal 0.00-0.30 [facility] Comment on above: Performed By: #### L TAVIA BARRERA, CDP #### [address] [place] [address] Power Grader Operator: Felix Prasad MD Abs.Neutrophil (Seg) 12.17 k/uL High 1.50-8.10 [facility] Comment on above: Performed By: #### L TAVIA BARRERA, CDP #### [address] [place] [address] Power Grader Operator: Felix Prasad MD Basophils/100 WBC (Bld) 0 % Normal 0-2 [facility] Comment on above: Performed By: #### L HOLLY CP, CDP #### [address] [place] [address] Power Grader Operator: Felix Prasad MD Eosinophils (Bld) [#/Vol] 0.77 10*3/uL High 0.00-0.44 [facility] Comment on above: Performed By: #### L HOLLY CP, CDP #### [address] [place] [address] Power Grader Operator: Felix Prasad MD Eosinophils/100 WBC (Bld) 5 % High 1-4 [facility] Comment on above: Performed By: #### L TAVIA BARRERA, CDP #### [address] [place], [place] [id number] Power Grader Operator: Felix Prasad MD Erythrocyte distribution width (RBC) [Ratio] 14.2 % Normal 11.8-14.4 [facility] Comment on above: Performed By: #### L HOLLY CP, CDP #### [address] [place], [place] [phone] Power Grader Operator: Felix Prasad MD Hematocrit (Bld) [Volume fraction] 38.4 % Low 40.7-50.3 [facility] Comment on above: Performed By: #### L TAVIA BARRERA, CDP #### [address] [place], [id number] Power Grader Operator: Felix Prasad MD Hemoglobin (Bld) [Mass/Vol] 13.4 g/dL Normal 13.0-17.0 [facility] Comment on above: Performed By: #### L TAVIA BARRERA, CDP #### [address] [place], [place] [id number] Power Grader Operator: Felix Prasad MD Immature granulocytes/100 WBC (Bld) 0 % Normal 0 [facility] Comment on above: Performed By: #### L TAVIA BARRERA, CDP #### [address] [place], [place] [phone] Power Grader Operator: Felix Prasad MD Lymphocytes (Bld) [#/Vol] 2.37 10*3/uL Normal 1.10-3.70 [facility] Comment on above: Performed By: #### L IP CP, CDP #### [address] [place], [place] [id number] Power Grader Operator: Felix Prasad MD Lymphocytes/100 WBC (Bld) 15 % Low 24-43 [facility] Comment on above: Performed By: #### L IP, CP, CDP #### [facility] [address] [place] [address] [address] [place], [place] [id number] Power Grader Operator: Felix Prasad MD MCH (RBC) [Entitic mass] 31.2 pg Normal 25.2-33.5 [facility] Comment on above: Performed By: #### L IP, CP, CDP #### [address] [place] [id number] Power Grader Operator: Felix Prasad MD MCHC (RBC) [Mass/Vol] 34.9 g/dL High 28.4-34.8 [facility] Comment on above: Performed By: #### L IP, CP, CDP #### [address] [place], [place] [id number] Power Grader Operator: Felix Prasad MD MCV (RBC) [Entitic vol] 89.5 fL Normal 82.6-102.9 [facility] Comment on above: Performed By: #### L IP, CP, CDP #### [address] [place], [place] [phone] Power Grader Operator: Felix Prasad MD Monocytes (Bld) [#/Vol] 0.79 10*3/uL Normal 0.10-1.20 [facility] Comment on above: Performed By: #### L IP, CP, CDP #### [address] [place], [place] [phone] Power Grader Operator: Felix Prasad MD Monocytes/100 WBC (Bld) 5 % Normal 3-12 [facility] Comment on above: Performed By: #### L IP, CP, CDP #### [address] [place] [address] Power Grader Operator: Felix Prasad MD Neutrophil (Seg) 75 % High 36-65 [facility] Comment on above: Performed By: #### L IP, CP, CDP #### [address] [place], [place] [id number] Power Grader Operator: Felix Prasad MD NRBC Automated 0.0 per 100 WBC Normal 0.0 [facility] Comment on above: Performed By: #### L IP, CP, CDP #### [address] [place], [place] [address] Power Grader Operator: Felix Prasad MD Platelet mean volume (Bld) [Entitic vol] 11.8 fL Normal 8.1-13.5 [facility] Comment on above: Performed By: #### L IP, CP, CDP #### [address] [place] [phone] Power Grader Operator: Felix Prasad MD Platelets (Bld) [#/Vol] 279 10*3/uL Normal 138-453 [facility] Comment on above: Performed By: #### L IP, CP, CDP #### [address] [place], [facility] Power Grader Operator: Felix Prasad MD RBC (Bld) [#/Vol] 4.29 10*6/uL Normal 4.21-5.77 [facility] Comment on above: Performed By: #### L IP, CP, CDP #### [address] [place], [place] [address] Power Grader Operator: Felix Prasad MD WBC (Bld) [#/Vol] 16.2 10*3/uL High 3.5-11.3 [facility] Comment on above: Performed By: #### L IP, CP, CDP #### [address] [place] [phone] Power Grader Operator: Felix Prasad MD CT Abdomen and Pelvis W cont rast Lola 09-06-2023 1. Multifocal consolidations and tree-in-bud nodules are seen in the visualized lungs. Bronchiectatic changes are seen in the right middle lobe and in the lower lobes. 2. Nonobstructing calculus in the upper pole of the left kidney measures 2 mm in size. 3. Focal hypodensity is seen in the posterior cortex of the left kidney superiorly measuring 2.8 cm in size. This may represent a complex cyst. Ultrasound or renal mass protocol CT/MR may be considered for further evaluation. 4. Distal esophagus is thickened. Stomach is over distended containing gastric food residue. The findings could represent delayed gastric emptying or gastric outlet obstruction. Endoscopic correlation may be needed. [facility] RIS CONSOLIDATED EXAMINATION: CT OF THE ABDOMEN AND PELVIS WITH CONTRAST 09/06/2023 9:11 pm TECHNIQUE: CT of the abdomen and pelvis was performed with the administration of intravenous contrast. Multiplanar reformatted images are provided for review. Automated exposure control, iterative reconstruction, and/or weight based adjustment of the mA/kV was utilized to reduce the radiation dose to as low as reasonably achievable. COMPARISON: None. HISTORY: ORDERING SYSTEM PROVIDED HISTORY: abdominal pain TECHNOLOGIST PROVIDED HISTORY: abdominal pain Decision Support Exception - unselect if not a suspected or confirmed emergency medical condition->Emergency Medical Condition (MA) FINDINGS: Lower Chest: Multifocal consolidations and tree-in-bud nodules are seen in the visualized lungs. Bronchiectatic changes are seen in the visualized right middle lobe and in the lower lobes. Organs: Liver: Liver is normal. No focal lesions are seen. Spleen: Normal. Pancreas: Normal Gallbladder: Normal. Adrenal glands: No discrete adrenal lesions are seen. Diffuse adrenal hyperplasia seen. Kidneys and ureters: There is no hydronephrosis. Nonobstructing calculus in the upper pole of the left kidney measures 2 mm in size. Focal hypodensity is seen in the posterior cortex of the left kidney superiorly measuring 2.8 cm in size. Ureters are non-dilated. Abdominal aorta and branches: Normal in caliber. IVC and portal vein: Normal in caliber. GI/Bowel: Distal esophagus is thickened. Stomach is over distended containing gastric food residue. Duodenum is normal in caliber. Small bowel loops are unremarkable. Large bowel loops demonstrated moderate amount of stool burden. No evidence of bowel obstruction. No evidence of appendicitis. Peritoneum/Retroperitoneu m: Normal PELVIS Normal reproductive organs Bones/Soft Tissues: No acute osseous abnormality is seen. Degenerative changes are seen in the lower lumbar spine. L2 compression deformity is seen with post augmentation changes. Left hip replacement hardware is noted. No soft tissue swelling is seen. PN RIS CONSOLIDATED Antoine Still MD - 09/06/2023 EXAMINATION: CT OF THE ABDOMEN AND PELVIS WITH CONTRAST 09/06/2023 9:11 pm TECHNIQUE: CT of the abdomen and pelvis was performed with the administration of intravenous contrast. Multiplanar reformatted images are provided for review. Automated exposure control, iterative reconstruction, and/or weight based adjustment of the mA/kV was utilized to reduce the radiation dose to as low as reasonably achievable. COMPARISON: None. HISTORY: ORDERING SYSTEM PROVIDED HISTORY: abdominal pain TECHNOLOGIST PROVIDED HISTORY: abdominal pain Decision Support Exception - unselect if not a suspected or confirmed emergency medical condition->Emergency Medical Condition (MA) FINDINGS: Lower Chest: Multifocal consolidations and tree-in-bud nodules are seen in the visualized lungs. Bronchiectatic changes are seen in the visualized right middle lobe and in the lower lobes. Organs: Liver: Liver is normal. No focal lesions are seen. Spleen: Normal. Pancreas: Normal Gallbladder: Normal. Adrenal glands: No discrete adrenal lesions are seen. Diffuse adrenal hyperplasia seen. Kidneys and ureters: There is no hydronephrosis. Nonobstructing calculus in the upper pole of the left kidney measures 2 mm in size. Focal hypodensity is seen in the posterior cortex of the left kidney superiorly measuring 2.8 cm in size. Ureters are non-dilated. Abdominal aorta and branches: Normal in caliber. IVC and portal vein: Normal in caliber. GI/Bowel: Distal esophagus is thickened. Stomach is over distended containing gastric food residue. Duodenum is normal in caliber. Small bowel loops are unremarkable. Large bowel loops demonstrated moderate amount of stool burden. No evidence of bowel obstruction. No evidence of appendicitis. Peritoneum/Retroperitoneu m: Normal PELVIS Normal reproductive organs Bones/Soft Tissues: No acute osseous abnormality is seen. Degenerative changes are seen in the lower lumbar spine. L2 compression deformity is seen with post augmentation changes. Left hip replacement hardware is noted. No soft tissue swelling is seen. IMPRESSION: 1. Multifocal consolidations and tree-in-bud nodules are seen in the visualized lungs. Bronchiectatic changes are seen in the right middle lobe and in the lower lobes. 2. Nonobstructing calculus in the upper pole of the left kidney measures 2 mm in size. 3. Focal hypodensity is seen in the posterior cortex of the left kidney superiorly measuring 2.8 cm in size. This may represent a complex cyst. Ultrasound or renal mass protocol CT/MR may be considered for further evaluation. 4. Distal esophagus is thickened. Stomach is over distended containing gastric food residue. The findings could represent delayed gastric emptying or gastric outlet obstruction. Endoscopic correlation may be needed. [facility] Radiology Study observation (narrative) [facility] CT Abdomen and Pelvis W cont rast IVOrdered By: Antoine Still on 09-06-2023 [facility] Work Phone: Comp Metabolic Profon 2023 Albumin [Mass/Vol] 3.1 g/dL Low 3.5-5.2 [facility] Comment on above: Performed By: #### L TAVIA BARRERA, CDP #### [facility] [address] [place] [address] [place] [address] Power Grader Operator: Felix Prasad MD Albumin/Glob Ratio 1.0 Normal 1.0-2.5 [facility] Comment on above: Performed By: #### L TAVIA BARRERA, CDP #### [address] [place], [place] [phone] Power Grader Operator: Felix Prasad MD Alkaline Phos 242 U/L High 40-129 [facility] Comment on above: Performed By: #### L TAVIA BARRERA, CDP #### [facility] [address] [place] [address] Power Grader Operator: Felix Prasad MD ALT [Catalytic activity/Vol] 23 U/L Normal 5-41 [facility] Comment on above: Performed By: #### L TAVIA BARRERA, CDP #### [facility] [address] [place] [address] Power Grader Operator: Felix Prasad MD Anion gap [Moles/Vol] 9 mmol/L Normal 9-17 [facility] Comment on above: Performed By: #### L IP, CP, CDP #### [facility] [address] [place], [place] [phone] Power Grader Operator: Felix Prasad MD AST [Catalytic activity/Vol] 20 U/L Normal <40 [facility] Comment on above: Performed By: #### L IP, CP, CDP #### [facility] [address] [place], [place] [phone] Power Grader Operator: Felix Prasad MD Bilirubin [Mass/Vol] 0.2 mg/dL Low 0.3-1.2 [facility] Comment on above: Performed By: #### L IP, CP, CDP #### [facility] [address] [place], [place] [id number] Power Grader Operator: Felix Prasad MD BUN/CRE Ratio 28 High 9-20 [facility] Comment on above: Performed By: #### L IP, CP, CDP #### [facility] [address] [place], [place] [phone] Power Grader Operator: Felix Prasad MD Calcium [Mass/Vol] 9.7 mg/dL Normal 8.6-10.4 [facility] Comment on above: Performed By: #### L IP, CP, CDP #### [facility] [address] [place], [place] [phone] Power Grader Operator: Felix Prasad MD Chloride [Moles/Vol] 101 mmol/L Normal 98-107 [facility] Comment on above: Performed By: #### L IP, CP, CDP #### [facility] [address] [place], [place] [phone] Power Grader Operator: Felix Prasad MD CO2 [Moles/Vol] 26 mmol/L Normal 20-31 [facility] Comment on above: Performed By: #### L IP, CP, CDP #### [facility] [address] [place] [address] Power Grader Operator: Felix Prasad MD Creatinine [Mass/Vol] 0.8 mg/dL Normal 0.7-1.2 [facility] Comment on above: Performed By: #### L HOLLY CP, CDP #### [facility] [address] [place] [address] Power Grader Operator: Felix Prasda MD GFR/1.73 sq M.predicted among non-blacks MDRD (S/P/Bld) [Vol rate/Area] mL/min/{1.73_m2} Normal >60 [facility] Comment on above: Result Comment: These results are not intended for use in patients <18 years of age. eGFR results are calculated without a race factor using the 2020 CKD-EPI equation. Careful clinical correlation is recommended, particularly when comparing to results calculated using previous equations. The CKD-EPI equation is less accurate in patients with extremes of muscle mass, extra-renal metabolism of creatine, excessive creatine ingestion, or following therapy that affects renal tubular secretion. Performed By: #### L IP CP, CDP #### [facility] [address] [place] [address] [place] [address] Power Grader Operator: Felix Prasad MD Glucose [Mass/Vol] 257 mg/dL High 70-99 [facility] Comment on above: Performed By: #### L HOLLY CP, CDP #### [address] [place] [address] Power Grader Operator: Felix Prasad MD Potassium [Moles/Vol] 4.3 mmol/L Normal 3.7-5.3 [facility] Comment on above: Performed By: #### L IP CP, CDP #### [facility] [address] [place] [address] Power Grader Operator: Felix Prasad MD Protein [Mass/Vol] 6.2 g/dL Low 6.4-8.3 [facility] Comment on above: Performed By: #### L IP, CP, CDP #### [facility] [address] [place] [address] Power Grader Operator: Felix Prasad MD Sodium [Moles/Vol] 136 mmol/L Normal 135-144 [facility] Comment on above: Performed By: #### L HOLLY, TAVIA, CDP #### [facility] [address] [place] [address] Power Grader Operator: Felix Prasad MD Urea nitrogen [Mass/Vol] 22 mg/dL Normal 8-23 [facility] Comment on above: Performed By: #### L TAVIA BARRERA, CDP #### [facility] [address] [place] [address] Power Grader Operator: Felix Prasad MD Comprehensive Metabolic Pane [facility] 09-06-2023 Albumin [Mass/Vol] 3.1 g/dL Low 3.5 - 5.2 g/dL [facility] Albumin/Globulin [Mass ratio] 1.0 {ratio} 1.0 - 2.5 [facility] ALP [Catalytic activity/Vol] 242 U/L High 40 - 129 U/L [facility] ALT [Catalytic activity/Vol] 23 U/L 5 - 41 U/L [facility] Anion gap [Moles/Vol] 9 mmol/L 9 - 17 mmol/L [facility] AST [Catalytic activity/Vol] 20 U/L NINF - 40 U/L [facility] Bilirubin [Mass/Vol] 0.2 mg/dL Low 0.3 - 1 .2 mg/dL [facility] Calcium [Mass/Vol] 9.7 mg/dL 8.6 - 10. 4 mg/dL [facility] Chloride [Moles/Vol] 101 mmol/L 98 - 10 7 mmol/L [facility] CO2 [Moles/Vol] 26 mmol/L 20 - 31 mmol/L [facility] Creatinine [Mass/Vol] 0.8 mg/dL 0.7 - 1.2 mg/dL [facility] GFR/1.73 sq M.predicted MDRD (S/P/Bld) [Vol rate/Area] - PINF [facility] Comment on above: These results are not intended for use in patients <18 years of age. eGFR results are calculated without a race factor using the 2020 CKD-EPI equation. Careful clinical correlation is recommended, particularly when comparing to results calculated using previous equations. The CKD-EPI equation is less accurate in patients with extremes of muscle mass, extra-renal metabolism of creatine, excessive creatine ingestion, or following therapy that affects renal tubular secretion. Glucose [Mass/Vol] 257 mg/dL High 70 - 99 mg/dL [facility] Interpretation and review of laboratory results Abnormal [facility] Potassium [Moles/Vol] 4.3 mmol/L 3.7 - 5.3 mmol/L [facility] Protein [Mass/Vol] 6.2 g/dL Low 6.4 - 8.3 g/dL [facility] Sodium [Moles/Vol] 136 mmol/L 135 - 144 mmol/L [facility] Urea nitrogen [Mass/Vol] 22 mg/dL 8 - 23 mg/dL [facility] Urea nitrogen/Creatinine [Mass ratio] 28 mg/mg High 9 - 20 [facility] Lactic Acidon 09-06-2023 Lactate [Moles/Vol] 2.0 mmol/L Normal 0.5-2.2 [facility] Comment on above: Performed By: #### L ACTIC #### [facility] [address] [place] [address] Power Grader Operator: Felix Prasad MD Lactate (BldV) [Moles/Vol] 2.0 mmol/L 0.5 - 2.2 mmol/L [facility] Lipaseon 09-06-2023 Lipase [Catalytic activity/Vol] 54 U/L Normal 13-60 [facility] Comment on above: Performed By: #### C DP #### [facility] [address] [place] [address] Power Grader Operator: Felix Prasad MD Lipase [Catalytic activity/Vol] 54 U/L 13 - 60 U/L [facility] Microscopic Urinalysison 01- 21-2024 Amorphous sediment LM Ql (Urine sed) 1+ Abnormal None [facility] [facility] Bacteria LM Ql (Urine sed) TRACE Abnormal None [facility] Crystals LM Nom (Urine sed) 2 TO 5 CALCIUM OXALATE Abnormal None /HPF [facility] Epithelial cells LM.HPF (Urine sed) [#/Area] None [facility] Interpretation and review of laboratory results Abnormal [facility] Mucus Ql (Urine sed) TRACE Abnormal None [facility] RBC LM.HPF (Urine sed) [#/Area] 0 TO 2 [facility] WBC LM.HPF (Urine sed) [#/Area] 0 TO 2 [facility] No Panel Informationon 09-06 [facility] UA w/Reflex Cultureon 2023 Bilirubin, SemiQt,Ur Negative Normal NEG [facility] Comment on above: Performed By: #### U AX, UMICAO #### [facility] [address] [place] [address] Dr. [place], [facility] Power Grader Operator: Felix Prasad MD Blood, Urine Negative Normal NEG [facility] Comment on above: Performed By: #### U AXPREMAO #### [address] [place] [address] Power Grader Operator: Felix Prasad MD Clarity (U) Clear Normal CLEAR [facility] Comment on above: Performed By: #### U AX UMICAO #### [address] [place], [facility] Power Grader Operator: Felix Prasad MD Color (U) Yellow Normal YEL [facility] Comment on above: Performed By: #### U AX, UMICAO #### [facility] [address] [place] [address] Power Grader Operator: Felix Prasad MD Glucose Ql (U) 1+ mg/dL Abnormal NEG [facility] Comment on above: Performed By: #### U AX, UMICAO #### [facility] [address] [place] [address] Power Grader Operator: Felix Prasad MD Ketones Ql (U) TRACE Abnormal NEG [facility] Comment on above: Performed By: #### U AX, UMICAO #### [facility] [address] [place] [address] Power Grader Operator: Felix Prasad MD Leukocyte esterase Test strip Ql (U) Negative Normal NEG [facility] Comment on above: Performed By: #### U AX, UMICAO #### [facility] [address] [place] [address] Dr. [place], [place] [phone] Power Grader Operator: Felix Prasad MD Nitrite,Ur Negative Normal NEG [facility] Comment on above: Performed By: #### U AX, UMICAO #### [facility] [address] [place] [address] Dr. [place], [place] [phone] Power Grader Operator: Felix Prasad MD PH,Ur 7.0 Normal 5.0-9.0 [facility] Comment on above: Performed By: #### U AX, UMICAO #### [facility] [address] [place] [address] [place] [address] Power Grader Operator: Felix Prasad MD Protein Ql (U) TRACE Abnormal NEG [facility] Comment on above: Performed By: #### U AX, UMICAO #### [facility] [address] [place] [address] Dr. [place], [facility] Power Grader Operator: Felix Prasad MD Spec. [place],Ur 1.020 Normal 1.010-1.02 0 [facility] Comment on above: Performed By: #### U AX, UMICAO #### [facility] [address] [place] [address] Dr. [place], [place] [phone] Power Grader Operator: Felix Prasad MD Urobilinogen,Ur ELEVATED Normal 0.0-1.0 [facility] Comment on above: Performed By: #### U AX, UMICAO #### [facility] [address] [place] [address] Power Grader Operator: Felix Prasad MD Urinalysis with Reflex to Cu ltureon 09-06-2023 Bilirubin Ql (U) Negative NEGATIVE [facility] Clarity (U) Clear Clear [facility] Color (U) Yellow Yellow [facility] Glucose Test strip (U) [Mass/Vol] 1+ Abnormal NEGATIVE mg/dL [facility] Hemoglobin Auto test strip Ql (U) Negative NEGATIVE [facility] Interpretation and review of laboratory results Abnormal [facility] Ketones (U) [Mass/Vol] TRACE Abnormal NEGAT [place] mg/dL [facility] Leukocyte esterase Test strip Ql (U) Negative NEGATIVE [facility] Nitrite Ql (U) Negative NEGATIVE [facility] pH (U) 7.0 [pH] 5.0 - 9.0 [facility] Protein (U) [Mass/Vol] TRACE Abnormal NEGAT [place] mg/dL [facility] Specific gravity (U) [Rel density] 1.020 1.010 - 1.020 [facility] Urobilinogen Qn (U) ELEVATED 0.0 - 1. 0 EU/dL [facility] Urinalysis,Microon 4 Amorphous sediment LM Ql (Urine sed) 1+ Abnormal [facility] Comment on above: Performed By: #### U JACQUIE WYNNE #### [facility] [address] [place] [address] Power Grader Operator: Felix Prasad MD Bacteria TRACE Abnormal [facility] Comment on above: Performed By: #### U JACQUIE WYNNE #### [facility] [address] [place] [address] Power Grader Operator: Felix Prasad MD Crystals LM Nom (Urine sed) 2 TO 5 Abnormal [facility] Comment on above: Result Comment: CALC IUM OXALATE Performed By: #### U JACQUIE WYNNE #### [facility] [address] [place], [place] [phone] Power Grader Operator: Felix Prasad MD Epithelial cells LM Ql (Urine sed) None Normal 0-5 [facility] Comment on above: Performed By: #### U AX, UMICAO #### [facility] [address] [place], [place] [phone] Power Grader Operator: Felix Prasad MD Mucus Strands TRACE Abnormal NONE [facility] Comment on above: Performed By: #### U AX, UMICAO #### [facility] [address] [place], [place] [phone] Power Grader Operator: Felix Prasad MD Urine RBC's 0 TO 2 Normal 0-2 [facility] Comment on above: Performed By: #### U AX, UMICAO #### [facility] [address] [place], [place] [phone] Power Grader Operator: Felix Prasad MD Urine WBC's 0 TO 2 Normal 0-5 [facility] Comment on above: Performed By: #### U AX, UMICAO #### [facility] [address] [place], [place] [phone] Power Grader Operator: Felix Prasad MD Glucose Poct Glucometerson 0 03-10-2023 Glucose [Mass/Vol] 315 mg/dL Normal [facility] Comment on above: Result Comment: [facility] Glucose Reference Range is dependent on time and content of last meal. Glucose of more than 200 mg/dL in a nonstressed, ambulatory subject supports the diagnosis of Diabetes Mellitus. PERFORMED BY: [facility] [address] [place] [address] PATHOLOGIST ELIGIBILITY EXAMINER DEONNA COURTNEY M.D. Performed By: #### G LULS ####Point of Care testing, Glucose Poct Glucometerson 0 03-09-2023 Glucose [Mass/Vol] 185 mg/dL Normal [facility] Comment on above: Result Comment: [facility] Glucose Reference Range is dependent on time and content of last meal. Glucose of more than 200 mg/dL in a nonstressed, ambulatory subject supports the diagnosis of Diabetes Mellitus. PERFORMED BY: [address] [place] [address] PATHOLOGIST ELIGIBILITY EXAMINER DEONNA COURTNEY M.D. Performed By: #### G LULS ####Point of Care testing, Glucose [Mass/Vol] 322 mg/dL Normal [facility] Comment on above: Result Comment: [facility] Glucose Reference Range is dependent on time and content of last meal. Glucose of more than 200 mg/dL in a nonstressed, ambulatory subject supports the diagnosis of Diabetes Mellitus. PERFORMED BY: [address] [place] [address] PATHOLOGIST ELIGIBILITY EXAMINER DEONNA COURTNEY M.D. Performed By: #### G LULS ####Point of Care testing, Glucose Poct Glucometerson 0 03-08-2023 Glucose [Mass/Vol] 339 mg/dL Normal [facility] Comment on above: Result Comment: [facility] Glucose Reference Range is dependent on time and content of last meal. Glucose of more than 200 mg/dL in a nonstressed, ambulatory subject supports the diagnosis of Diabetes Mellitus. PERFORMED BY: [address] [place] [address] PATHOLOGIST ELIGIBILITY EXAMINER DEONNA COURTNEY M.D. Performed By: #### G LULS ####Point of Care testing, Glucose [Mass/Vol] 328 mg/dL Normal [facility] Comment on above: Result Comment: [facility] Glucose Reference Range is dependent on time and content of last meal. Glucose of more than 200 mg/dL in a nonstressed, ambulatory subject supports the diagnosis of Diabetes Mellitus. PERFORMED BY: [address] [place] [address] PATHOLOGIST ELIGIBILITY EXAMINER DEONNA COURTNEY M.D. Performed By: #### G LULS ####Point of Care testing, Glucose [Mass/Vol] 260 mg/dL Normal [facility] Comment on above: Result Comment: [facility] Glucose Reference Range is dependent on time and content of last meal. Glucose of more than 200 mg/dL in a nonstressed, ambulatory subject supports the diagnosis of Diabetes Mellitus. PERFORMED BY: [address] [place] [phone] PATHOLOGIST ELIGIBILITY EXAMINER DEONNA COURTNEY M.D. Performed By: #### G LULS ####Point of Care testing, Glucose [Mass/Vol] 368 mg/dL Normal [facility] Comment on above: Result Comment: [place] [facility] Glucose Reference Range is dependent on time and content of last meal. Glucose of more than 200 mg/dL in a nonstressed, ambulatory subject supports the diagnosis of Diabetes Mellitus. PERFORMED BY: [address] [place] [id number] PATHOLOGIST ELIGIBILITY EXAMINER DEONNA COURTNEY M.D. Performed By: #### G LULS ####Point of Care testing, Glucose Poct Glucometerson 0 03-07-2023 Glucose [Mass/Vol] 259 mg/dL Normal [facility] Comment on above: Result Comment: [place] Glucose Reference Range is dependent on time and content of last meal. Glucose of more than 200 mg/dL in a nonstressed, ambulatory subject supports the diagnosis of Diabetes Mellitus. PERFORMED BY: [address] [place] [address] PATHOLOGIST ELIGIBILITY EXAMINER DEONNA COURTNEY M.D. Performed By: #### G LULS ####Point of Care testing, Commemt1 Glu2: Cleaned Meter Normal [facility] Comment on above: Result Comment: PERF ORMED BY: [address] [place] [address] PATHOLOGIST ELIGIBILITY EXAMINER DEONNA COURTNEY M.D. Performed By: #### G LULS ####Point of Care testing, Glucose [Mass/Vol] 358 mg/dL Normal [facility] Comment on above: Result Comment: [place] [facility] Glucose Reference Range is dependent on time and content of last meal. Glucose of more than 200 mg/dL in a nonstressed, ambulatory subject supports the diagnosis of Diabetes Mellitus. Performed By: #### G LULS ####Point of Care testing, Glucose [Mass/Vol] 220 mg/dL Normal [facility] Comment on above: Result Comment: [place] Glucose Reference Range is dependent on time and content of last meal. Glucose of more than 200 mg/dL in a nonstressed, ambulatory subject supports the diagnosis of Diabetes Mellitus. PERFORMED BY: [address] [place] [phone] PATHOLOGIST ELIGIBILITY EXAMINER DEONNA COURTNEY M.D. Performed By: #### G LULS ####Point of Care testing, Glucose [Mass/Vol] 251 mg/dL Normal [facility] Comment on above: Result Comment: [facility] Glucose Reference Range is dependent on time and content of last meal. Glucose of more than 200 mg/dL in a nonstressed, ambulatory subject supports the diagnosis of Diabetes Mellitus. PERFORMED BY: [address] [place] [phone] PATHOLOGIST ELIGIBILITY EXAMINER DEONNA COURTNEY M.D. Performed By: #### G LULS ####Point of Care testing, Glucose Poct Glucometerson 0 03-06-2023 Glucose [Mass/Vol] 163 mg/dL Normal [facility] Comment on above: Result Comment: [facility] Glucose Reference Range is dependent on time and content of last meal. Glucose of more than 200 mg/dL in a nonstressed, ambulatory subject supports the diagnosis of Diabetes Mellitus. PERFORMED BY: [address] [place] [phone] PATHOLOGIST ELIGIBILITY EXAMINER DEONNA COURTNEY M.D. Performed By: #### G LULS ####Point of Care testing, Commemt1 Glu2: Cleaned Meter Normal [facility] Comment on above: Result Comment: PERF ORMED BY: [address] [place] [phone] PATHOLOGIST ELIGIBILITY EXAMINER DEONNA COURTNEY M.D. Performed By: #### G LULS #### Point of Care testing , Glucose [Mass/Vol] 224 mg/dL Normal [facility] Comment on above: Result Comment: [place] [facility] Glucose Reference Range is dependent on time and content of last meal. Glucose of more than 200 mg/dL in a nonstressed, ambulatory subject supports the diagnosis of Diabetes Mellitus. Performed By: #### G LULS #### Point of Care testing , Commemt1 [facility] Comment on above: Result Comment: Glu2 : WILL NOTIFY DR/RN PERFORMED BY: [address] [place] [address] PATHOLOGIST ELIGIBILITY EXAMINER DEONNA COURTNEY M.D. Performed By: #### G LULS ####Point of Care testing, Glucose [Mass/Vol] 332 mg/dL Normal [facility] Comment on above: Result Comment: [place] [facility] Glucose Reference Range is dependent on time and content of last meal. Glucose of more than 200 mg/dL in a nonstressed, ambulatory subject supports the diagnosis of Diabetes Mellitus. Performed By: #### G LULS ####Point of Care testing, Glucose Poct Glucometerson 0 03-05-2023 Glucose [Mass/Vol] 170 mg/dL Normal [facility] Comment on above: Result Comment: [place] [facility] Glucose Reference Range is dependent on time and content of last meal. Glucose of more than 200 mg/dL in a nonstressed, ambulatory subject supports the diagnosis of Diabetes Mellitus. PERFORMED BY: [address] [place] [id number] PATHOLOGIST ELIGIBILITY EXAMINER DEONNA COURTNEY M.D. Performed By: #### G LULS ####Point of Care testing, Glucose [Mass/Vol] 98 mg/dL Normal [facility] Comment on above: Result Comment: [place] Glucose Reference Range is dependent on time and content of last meal. Glucose of more than 200 mg/dL in a nonstressed, ambulatory subject supports the diagnosis of Diabetes Mellitus. PERFORMED BY: [address] [place] [id number] PATHOLOGIST ELIGIBILITY EXAMINER DEONNA COURTNEY M.D. Performed By: #### G LULS ####Point of Care testing, Glucose [Mass/Vol] 102 mg/dL Normal [facility] Comment on above: Result Comment: [facility] Glucose Reference Range is dependent on time and content of last meal. Glucose of more than 200 mg/dL in a nonstressed, ambulatory subject supports the diagnosis of Diabetes Mellitus. PERFORMED BY: [address] [address] PATHOLOGIST ELIGIBILITY EXAMINER DEONNA COURTNEY M.D. Performed By: #### G LULS #### Point of Care testing , XR chest 1V portableon 03-05 XR chest 1V portable [facility] [place] [address] [place] [address] XRay Report Signed Patient: Akbar Byrnes MR#: [id number] : 1960 Acct:[id number] Age/Sex: 62 / M ADM Date: 03/02/23 Loc: Room: [address] [place] [address] Type: ADM IN Attending Dr: Devin Starks DO Copies to: Cherise Thurman APRN, [facility] Starks DO Ordering Provider: Cherise Thurman APRN, [...] SEEN. Impression dictated by: Landen Tavares Jr., D.ONohemi03/05/2023 8:28 AM Dictation Location: [place] [address] Transcribed By: [facility] 03/05/23827 Dictated By: Landen Tavares Jr, DO 03/05/23815 Signed By: 03/05/23827 Normal [facility] Blood Urea Nitrogenon 2022 Urea nitrogen [Mass/Vol] 12 mg/dL Normal - [facility] Comment on above: Performed By: #### G LULS #### Point of Care testing , Complete Blood Count Auto Di ffon 03-04-2023 Basophils (Bld) [#/Vol] 0.1 10*3/uL Normal 0.0-0.2 [facility] Comment on above: Result Comment: PERF ORMED BY: [facility] [address] [place] [address] PATHOLOGIST ELIGIBILITY EXAMINER DEONNA COURTNEY M.D. Performed By: #### C SOFIA PADILLA LYTES BUN ####[address] Basophils/100 WBC (Bld) 0.4 % Normal . [facility] Comment on above: Performed By: #### C SOFIA PADILLA LYTES BUN ####[address] Eosinophils (Bld) [#/Vol] 0.1 10*3/uL Normal 0.0-0.45 [facility] Comment on above: Performed By: #### C SOFIA PADILLA LYTES BUN ####[address] Eosinophils/100 WBC (Bld) 1.1 % Normal . [facility] Comment on above: Performed By: #### C SOFIA PADILLA LYTES BUN ####[address] Erythrocyte distribution width (RBC) [Ratio] 14.1 % Normal 12.0-14.8 [facility] Comment on above: Performed By: #### C SOFIA PADILLA LYTES BUN ####[address] Hematocrit (Bld) [Volume fraction] 39.7 % Normal 38.8-50.0 [facility] Comment on above: Performed By: #### C SOFIA PADILLA LYTES BUN ####[address] Hemoglobin (Bld) [Mass/Vol] 13.8 g/dL Normal 13.0-17.0 [facility] Comment on above: Performed By: #### C SOFIA PADILLA LYTES, BUN ####[address] Lymphocytes (Bld) [#/Vol] 2.7 10*3/uL Normal 1.00-4.8 [facility] Comment on above: Performed By: #### C SOFIA PADILLA LYTES, BUN ####[address] Lymphocytes/100 WBC (Bld) 22.8 % Normal . [facility] Comment on above: Performed By: #### C SOFIA PADILLA LYTES, BUN ####[address] MCH (RBC) [Entitic mass] 31.2 pg Normal 27.5-35.2 [facility] Comment on above: Performed By: #### C SOFIA PADILLA LYTES, BUN ####[address] MCV (RBC) [Entitic vol] 89.6 fL Normal 83.5-101 [facility] Comment on above: Performed By: #### C SOFIA PADILLA LYTES, BUN ####[address] Mean Corpuscular HGB Conc 34.9 g/dL Normal 32.5-35.6 [facility] Comment on above: Performed By: #### C SOFIA PADILLA LYTES, BUN ####[address] Monocytes (Bld) [#/Vol] 1.0 10*3/uL High 0.0-0.8 [facility] Comment on above: Performed By: #### SOFIA ARITA LYTES, BUN ####[address] Monocytes/100 WBC (Bld) 8.8 % Normal . [facility] Comment on above: Performed By: #### SOFIA ARITA LYTES, BUN ####[address] Neutrophils (Bld) [#/Vol] 7.9 10*3/uL High 1.8-7.7 [facility] Comment on above: Performed By: #### C BC, CREAT LYTES, BUN ####[place] [id number] [facility] Neutrophils/100 WBC (Bld) 66.9 % Normal . [facility] Comment on above: Performed By: #### C BC, CREAT LYTES, BUN ####[address] NRBC% 0.1 /100{WBC} Normal 0-0.5 [facility] Comment on above: Performed By: #### C BC, CREFREDDY LYTES, BUN ####[address] Platelet mean volume (Bld) [Entitic vol] 8.7 fL Normal 6.6-10.1 [facility] Comment on above: Performed By: #### C BC CREFREDDY LYTES, BUN ####[address] Platelets (Bld) [#/Vol] 252 10*3/uL Normal 150-450 [facility] Comment on above: Performed By: #### C BC, CREAT, LYTES, BUN ####[address] RBC (Bld) [#/Vol] 4.43 10*6/uL Normal 3.90-5.60 [facility] Comment on above: Performed By: #### C BC, CREAT, LYTES, BUN ####[address] WBC (Bld) [#/Vol] 11.8 10*3/uL High 4.1-10.5 [facility] Comment on above: Performed By: #### C BC, CREAT, LYTES, BUN ####[address] [address] [facility] Creatinineon 03-04-2023 Creatinine [Mass/Vol] 0.48 mg/dL Low 0.70-1.30 [facility] Comment on above: Performed By: #### G LULS #### Point of Care testing , Creatinine Clr Calc Pharmacy 142.19 [facility] Comment on above: Result Comment: PERF ORMED BY: [facility] [address] [place] [phone] PATHOLOGIST ELIGIBILITY EXAMINER DEONNA COURTNEY M.D. Performed By: #### G LULS #### Point of Care testing , GFR/1.73 sq M.predicted MDRD (S/P/Bld) [Vol rate/Area] mL/min/{1.73_m2} [facility] Comment on above: Performed By: #### G LULS #### Point of Care testing , Electrolyteson 03-04-2023 Anion gap [Moles/Vol] 7.5 mmol/L Normal 6.0-15.0 [facility] Comment on above: Performed By: #### C BC, CREAT, LYTES, BUN ####[address] Chloride [Moles/Vol] 107 mmol/L Normal 98-107 [facility] Comment on above: Performed By: #### C BC, CREAT, LYTES, BUN ####[address] CO2 [Moles/Vol] 25.1 mmol/L Normal 21.0-31.0 [facility] Comment on above: Performed By: #### C BC, CREAT, LYTES, BUN ####[address] Potassium [Moles/Vol] 3.6 mmol/L Normal 3.5-5.1 [facility] Comment on above: Performed By: #### C BC, CREAT, LYTES, BUN ####[address] Sodium [Moles/Vol] 136 mmol/L Normal 136-145 [facility] Comment on above: Performed By: #### C BC, CREAT, LYTES, BUN ####[facility] [id number] [place] [id number] [place] Glucose Poct Glucometerson 0 03-04-2023 Commemt1 Glu2: Cleaned Meter Normal [facility] Comment on above: Result Comment: PERF ORMED BY: [facility] [address] [place] [address] PATHOLOGIST ELIGIBILITY EXAMINER DEONNA COURTNEY M.D. Performed By: #### G LULS ####Point of Care testing, Glucose [Mass/Vol] 176 mg/dL Normal [facility] Comment on above: Result Comment: [place] [facility] Glucose Reference Range is dependent on time and content of last meal. Glucose of more than 200 mg/dL in a nonstressed, ambulatory subject supports the diagnosis of Diabetes Mellitus. Performed By: #### G LULS ####Point of Care testing, Glucose [Mass/Vol] 92 mg/dL Normal [facility] Comment on above: Result Comment: [place] [facility] Glucose Reference Range is dependent on time and content of last meal. Glucose of more than 200 mg/dL in a nonstressed, ambulatory subject supports the diagnosis of Diabetes Mellitus. PERFORMED BY: [facility] [address] [place] [address] PATHOLOGIST ELIGIBILITY EXAMINER DEONNA COURTNEY M.D. Performed By: #### G LULS ####Point of Care testing, Glucose [Mass/Vol] 174 mg/dL Normal [facility] Comment on above: Result Comment: [place] om Glucose Reference Range is dependent on time and content of last meal. Glucose of more than 200 mg/dL in a nonstressed, ambulatory subject supports the diagnosis of Diabetes Mellitus. PERFORMED BY: [facility] [address] [place] [address] PATHOLOGIST ELIGIBILITY EXAMINER DEONNA COURTNEY M.D. Performed By: #### G LULS ####Point of Care testing, Commemt1 [facility] Comment on above: Result Comment: Glu2 : FOLLOW HYPOGLYCEMIC PERFORMED BY: [address] [address] PATHOLOGIST ELIGIBILITY EXAMINER DEONNA COURTNEY M.D. Performed By: #### G LULS #### Point of Care testing , Glucose [Mass/Vol] 52 mg/dL Off scale low [facility] Comment on above: Result Comment: [place] [facility] Glucose Reference Range is dependent on time and content of last meal. Glucose of more than 200 mg/dL in a nonstressed, ambulatory subject supports the diagnosis of Diabetes Mellitus. Performed By: #### G LULS #### Point of Care testing , Glucose [Mass/Vol] 177 mg/dL Normal [facility] Comment on above: Result Comment: [place] [facility] Glucose Reference Range is dependent on time and content of last meal. Glucose of more than 200 mg/dL in a nonstressed, ambulatory subject supports the diagnosis of Diabetes Mellitus. PERFORMED BY: [address] [address] PATHOLOGIST ELIGIBILITY EXAMINER DEONNA COURTNEY M.D. Performed By: #### G LULS ####Point of Care testing, XR chest 1V portableon 03-04 XR chest 1V portable [facility] [facility] [place] [address] [place] [address] XRay Report Signed Patient: Akbar Byrnes MR#: [id number] : 1960 Acct:[id number] Age/Sex: 62 / M ADM Date: 03/02/23 Loc: Room: [address] [place] [address] Type: ADM IN Attending Dr: Devin Starks DO Copies to: Devin Stakrs DO Ordering Provider: Devin Starks DO Date [...] Eden Milton M.D.03/04/2023 7:29 AM Dictation Location: [place] [address] Transcribed By: [facility] 03/04/23728 Dictated By: Eden Milton MD 03/04/23726 Signed By: 03/04/23728 [facility] A1C with Estimated Average G fabricion 03-03-2023 Glucose [Mass/Vol] 404 mg/dL Normal [facility] Comment on above: Result Comment: PERF ORMED BY: [facility] [address] [place] [id number] PATHOLOGIST ELIGIBILITY EXAMINER DEONNA COURTNEY M.D. Performed By: #### A 1C [facility] eA ####[place] [id number] [facility] HbA1c (Bld) [Mass fraction] 15.7 % High 4.3-5.6 [facility] Comment on above: Result Comment: Incr eased risk for diabetes: 5.7 - 6.4 diabetes: >6.4 glycemic control for adults with diabetes: <7.0 Performed By: #### A 1C [facility] eA ####[place] [id number] [facility] Comprehensive Metabolic Pane dorothy 03-03-2023 Albumin [Mass/Vol] 3.2 g/dL Low 3.5-5.7 [facility] Comment on above: Performed By: #### H S TROP, PT, CK, SCAN CBC, CMP, PTT ####[place] [id number] [facility] Albumin/Globulin [Mass ratio] 1.0 {ratio} [facility] Comment on above: Performed By: #### H S TROP, PT, CK, SCAN CBC, CMP, PTT ####[address] [address] [facility] ALP [Catalytic activity/Vol] 178 U/L High 34-104 [facility] Comment on above: Performed By: #### H S TROP, PT, CK, SCAN CBC, CMP, PTT ####[place] [id number] [facility] ALT [Catalytic activity/Vol] 20 U/L Normal 7-52 [facility] Comment on above: Performed By: #### H S TROP, PT, CK, SCAN CBC, CMP, PTT ####[place] [id number] [facility] Anion gap [Moles/Vol] 9.2 mmol/L Normal 6.0-15.0 [facility] Comment on above: Performed By: #### H S TROP, PT, CK, SCAN CBC, CMP, PTT ####[address] AST [Catalytic activity/Vol] 19 U/L Normal 13-39 [facility] Comment on above: Performed By: #### H S TROP, PT, CK, SCAN CBC, CMP, PTT ####[place] [id number] [facility] Bilirubin [Mass/Vol] 0.6 mg/dL Normal 0.3-1.0 [facility] Comment on above: Performed By: #### H S TROP, PT, CK, SCAN CBC, CMP, PTT ####[place] [id number] [facility] Calcium [Mass/Vol] 9.1 mg/dL Normal 8.6-10.3 [facility] Comment on above: Performed By: #### H S TROP, PT, CK, SCAN CBC, CMP, PTT ####[place] [id number] [facility] Chloride [Moles/Vol] 106 mmol/L Normal 98-107 [facility] Comment on above: Performed By: #### H S TROP, PT, CK, SCAN CBC, CMP, PTT ####[place] [id number] [facility] CO2 [Moles/Vol] 23.7 mmol/L Normal 21.0-31.0 [facility] Comment on above: Performed By: #### H S TROP, PT, CK, SCAN CBC, CMP, PTT ####[place] [address] [place] [id number] [facility] Creatinine [Mass/Vol] 0.59 mg/dL Low 0.70-1.30 [facility] Comment on above: Performed By: #### H S TROP, PT, CK, SCAN CBC, CMP, PTT ####[place] [address] Creatinine Clr Calc Pharmacy 115.68 [facility] Comment on above: Result Comment: PERF ORMED BY: [facility] [address] [place] [address] PATHOLOGIST ELIGIBILITY EXAMINER DEONNA COURTNEY M.D. Performed By: #### H S TROP, PT, CK, SCAN CBC, CMP, PTT ####[address] GFR/1.73 sq M.predicted MDRD (S/P/Bld) [Vol rate/Area] mL/min/{1.73_m2} [facility] Comment on above: Performed By: #### H S TROP, PT, CK, SCAN CBC, CMP, PTT ####[place] [address] Globulin (S) [Mass/Vol] 3.1 g/dL [facility] Comment on above: Performed By: #### H S TROP, PT, CK, SCAN CBC, CMP, PTT ####[place] [id number] [facility] Glucose [Mass/Vol] 243 mg/dL Significant change up 70-100 [facility] Comment on above: Result Comment: [place] Glucose Reference Range is dependent on time and content of last meal. Glucose of more than 200 mg/dL in a nonstressed, ambulatory subject supports the diagnosis of Diabetes Mellitus. ADA recommended reference range Performed By: #### H S TROP, PT, CK, SCAN CBC, CMP, PTT ####[place] [id number] [facility] Potassium [Moles/Vol] 3.9 mmol/L Normal 3.5-5.1 [facility] Comment on above: Result Comment: Hemo lysis is present at a level that could interfere with the result. Performed By: #### H S TROP, PT, CK, SCAN CBC, CMP, PTT ####[address] Protein [Mass/Vol] 6.3 g/dL Low 6.4-8.9 [facility] Comment on above: Performed By: #### H S TROP, PT, CK, SCAN CBC, CMP, PTT ####[address] Sodium [Moles/Vol] 135 mmol/L Low 136-145 [facility] Comment on above: Performed By: #### H S TROP, PT, CK, SCAN CBC, CMP, PTT ####[address] Urea nitrogen [Mass/Vol] 13 mg/dL Normal 7-25 [facility] Comment on above: Performed By: #### H S TROP, PT, CK, SCAN CBC, CMP, PTT ####[place] [id number] [facility] Creatine Kinaseon 03-03-2023 CK [Catalytic activity/Vol] 111 U/L Normal 30-223 [facility] Comment on above: Performed By: #### H S TROP, PT, CK, SCAN CBC, CMP, PTT ####[place] [id number] [facility] Dipstick and Microscopicon 0 03-03-2023 Appearance (U) Clear Normal Clear [facility] Comment on above: Order Comment: Name Collection Type:: Clean-Voided Midstream Performed By: #### A DDONUAPLUS ####[place] [id number] [facility] Bacteria,Urine None Seen Normal None Seen [facility] Comment on above: Order Comment: Name Collection Type:: Clean-Voided Midstream Performed By: #### A DDONUAPLUS ####[place] [id number] [facility] Bilirubin,Urine Negative Normal Negative [facility] Comment on above: Order Comment: Name Collection Type:: Clean-Voided Midstream Performed By: #### A DDONUAPLUS ####[place] [id number] [facility] Color (U) Yellow Normal Yellow [facility] Comment on above: Order Comment: Name Collection Type:: Clean-Voided Midstream Performed By: #### A DDONUAPLUS ####[place] [id number] [facility] Glucose Ql (U) >=1000 High Normal [facility] Comment on above: Order Comment: Name Collection Type:: Clean-Voided Midstream Performed By: #### A DDONUAPLUS ####[address] Hyaline Casts,Urine None Seen Normal 0-8 [facility] Comment on above: Order Comment: Name Collection Type:: Clean-Voided Midstream Result Comment: PERF ORMED BY: [facility] [address] [facility] [place] [place] [address] PATHOLOGIST ELIGIBILITY EXAMINER DEONNA COURTNEY M.D. Performed By: #### A DDONUAPLUS ####[address] Ketones Ql (U) Negative Normal Negative [facility] Comment on above: Order Comment: Name Collection Type:: Clean-Voided Midstream Performed By: #### A DDONUAPLUS ####[place] [id number] [facility] Leukocyte esterase Test strip Ql (U) Negative Normal Negative [facility] Comment on above: Order Comment: Name Collection Type:: Clean-Voided Midstream Performed By: #### A DDONUAPLUS ####[place] [id number] [facility] Nitrite,Urine Negative Normal Negative [facility] Comment on above: Order Comment: Name Collection Type:: Clean-Voided Midstream Performed By: #### A DDONUAPLUS ####[address] [place] [address] [facility] Occult Blood,Urine Negative Normal Negative [facility] Comment on above: Order Comment: Name Collection Type:: Clean-Voided Midstream Result Comment: PERF ORMED BY: [facility] [address] [place] [address] PATHOLOGIST ELIGIBILITY EXAMINER DEONNA COURTNEY M.D. Performed By: #### A DDONUAPLUS ####[place] [id number] [facility] pH (U) 6.0 [pH] Normal 5.0-9.0 [facility] Comment on above: Order Comment: Name Collection Type:: Clean-Voided Midstream Performed By: #### A DDONUAPLUS ####[place] [id number] [facility] Protein,Urine Trace High Negative [facility] Comment on above: Order Comment: Name Collection Type:: Clean-Voided Midstream Performed By: #### A DDONUAPLUS ####[address] RBC LM.HPF (Urine sed) [#/Area] 0 /[HPF] Normal 0-4 [facility] Comment on above: Order Comment: Name Collection Type:: Clean-Voided Midstream Performed By: #### A DDONUAPLUS ####[place] [id number] [facility] Specificy [place],Urine 1.029 Normal 1.001-1.03 0 [facility] Comment on above: Order Comment: Name Collection Type:: Clean-Voided Midstream Performed By: #### A DDONUAPLUS ####[place] [id number] [facility] Squamous Epithelial Cell,Urine None Seen Normal 0-2 [facility] Comment on above: Order Comment: Name Collection Type:: Clean-Voided Midstream Performed By: #### A DDONUAPLUS ####[place] [id number] [facility] Urobilinogen,Urine Normal Normal Normal [facility] Comment on above: Order Comment: Name Collection Type:: Clean-Voided Midstream Performed By: #### A DDONUAPLUS ####[facility] [address] [place] [address] [facility] WBC LM.HPF (Urine sed) [#/Area] 0 /[HPF] Normal 0-4 [facility] Comment on above: Order Comment: Name Collection Type:: Clean-Voided Midstream Performed By: #### A DDONUAPLUS ####[facility] [id number] [place] [id number] [facility] Glucose Poct Glucometerson 0 03-03-2023 Glucose [Mass/Vol] 42 mg/dL Off scale low [facility] Comment on above: Result Comment: [facility] Glucose Reference Range is dependent on time and content of last meal. Glucose of more than 200 mg/dL in a nonstressed, ambulatory subject supports the diagnosis of Diabetes Mellitus. PERFORMED BY: [facility] [address] [facility] [place] [id number] PATHOLOGIST ELIGIBILITY EXAMINER DEONNA COURTNEY M.D. Performed By: #### G LULS ####Point of Care testing, Glucose [Mass/Vol] 175 mg/dL Normal [facility] Comment on above: Result Comment: [facility] Glucose Reference Range is dependent on time and content of last meal. Glucose of more than 200 mg/dL in a nonstressed, ambulatory subject supports the diagnosis of Diabetes Mellitus. PERFORMED BY: [facility] [address] [facility] [place] [id number] PATHOLOGIST ELIGIBILITY EXAMINER DEONNA COURTNEY M.D. Performed By: #### G LULS #### Point of Care testing , Glucose [Mass/Vol] 338 mg/dL Normal [facility] Comment on above: Result Comment: [facility] Glucose Reference Range is dependent on time and content of last meal. Glucose of more than 200 mg/dL in a nonstressed, ambulatory subject supports the diagnosis of Diabetes Mellitus. PERFORMED BY: [facility] [address] [place] [id number] PATHOLOGIST ELIGIBILITY EXAMINER DEONNA COURTNEY M.D. Performed By: #### G LULS ####Point of Care testing, Glucose [Mass/Vol] 312 mg/dL Normal [facility] Comment on above: Result Comment: [facility] Glucose Reference Range is dependent on time and content of last meal. Glucose of more than 200 mg/dL in a nonstressed, ambulatory subject supports the diagnosis of Diabetes Mellitus. PERFORMED BY: [facility] [address] [place] [address] PATHOLOGIST ELIGIBILITY EXAMINER DEONNA COURTNEY M.D. Performed By: #### G GILBERT #### Point of Care testing , Partial Thromboplastin Timeo n 03-03-2023 aPTT Coag (Bld) [Time] 21.4 s Low 25.1-36.5 [facility] Comment on above: Result Comment: PERF ORMED BY: [facility] [address] [place] [address] PATHOLOGIST ELIGIBILITY EXAMINER DEONNA COURTNEY M.D. Performed By: #### H S TROP, PT, CK, SCAN CBC, CMP, PTT ####[facility] [id number] [place] [id number] [facility] Prothrombin Time INRon 03-03 INR Coag (PPP) [Relative time] 1.0 {INR} Normal [facility] Comment on above: Result Comment: INR Therapeutic [...] PT, CK, SCAN CBC, CMP, PTT #### [facility] [address] PT Coag (PPP) [Time] 11.2 s Normal 9.0-12.9 [facility] Comment on above: Performed By: #### H S TROP, PT, CK, SCAN CBC, CMP, PTT #### [facility] [address] Scan and CBCon 03-03-2023 Basophils (Bld) [#/Vol] 0.1 10*3/uL Normal 0.0-0.2 [facility] Comment on above: Result Comment: PERF ORMED BY: [facility] [place] [address] PATHOLOGIST ELIGIBILITY EXAMINER DEONNA COURTNEY M.D. Performed By: #### H S TROP, PT, CK, SCAN CBC, CMP, PTT ####[address] Basophils/100 WBC (Bld) 0.9 % Normal . [facility] Comment on above: Performed By: #### H S TROP, PT, CK, SCAN CBC, CMP, PTT ####[address] Eosinophils (Bld) [#/Vol] 0.3 10*3/uL Normal 0.0-0.45 [facility] Comment on above: Performed By: #### H S TROP, PT, CK, SCAN CBC, CMP, PTT ####[address] Eosinophils/100 WBC (Bld) 2.1 % Normal . [facility] Comment on above: Performed By: #### H S TROP, PT, CK, SCAN CBC, CMP, PTT ####[address] Erythrocyte distribution width (RBC) [Ratio] 14.0 % Normal 12.0-14.8 [facility] Comment on above: Performed By: #### H S TROP, PT, CK, SCAN CBC, CMP, PTT ####[address] Hematocrit (Bld) [Volume fraction] 40.9 % Normal 38.8-50.0 [facility] Comment on above: Performed By: #### H S TROP, PT, CK, SCAN CBC, CMP, PTT ####[address] Hemoglobin (Bld) [Mass/Vol] 13.9 g/dL Normal 13.0-17.0 [facility] Comment on above: Performed By: #### H S TROP, PT, CK, SCAN CBC, CMP, PTT ####[address] Hypochromasia Slight Normal [facility] Comment on above: Performed By: #### H S TROP, PT, CK, SCAN CBC, CMP, PTT ####[address] Lymphocytes (Bld) [#/Vol] 3.1 10*3/uL Normal 1.00-4.8 [facility] Comment on above: Performed By: #### H S TROP, PT, CK, SCAN CBC, CMP, PTT ####[address] Lymphocytes/100 WBC (Bld) 24.8 % Normal . [facility] Comment on above: Performed By: #### H S TROP, PT, CK, SCAN CBC, CMP, PTT ####[address] MCH (RBC) [Entitic mass] 30.5 pg Normal 27.5-35.2 [facility] Comment on above: Performed By: #### H S TROP, PT, CK, SCAN CBC, CMP, PTT ####[address] MCV (RBC) [Entitic vol] 89.6 fL Normal 83.5-101 [facility] Comment on above: Performed By: #### H S TROP, PT, CK, SCAN CBC, CMP, PTT ####[address] Mean Corpuscular HGB Conc 34.1 g/dL Normal 32.5-35.6 [facility] Comment on above: Performed By: #### H S TROP, PT, CK, SCAN CBC, CMP, PTT ####[address] Monocytes (Bld) [#/Vol] 0.9 10*3/uL High 0.0-0.8 [facility] Comment on above: Performed By: #### H S TROP, PT, CK, SCAN CBC, CMP, PTT ####[address] Monocytes/100 WBC (Bld) 7.4 % Normal . [facility] Comment on above: Performed By: #### H S TROP, PT, CK, SCAN CBC, CMP, PTT ####[address] Neutrophils (Bld) [#/Vol] 8.0 10*3/uL High 1.8-7.7 [facility] Comment on above: Performed By: #### H S TROP, PT, CK, SCAN CBC, CMP, PTT ####[address] Neutrophils/100 WBC (Bld) 64.8 % Normal . [facility] Comment on above: Performed By: #### H S TROP, PT, CK, SCAN CBC, CMP, PTT ####[address] NRBC% 0.2 /100{WBC} Normal 0-0.5 [facility] Comment on above: Performed By: #### H S TROP, PT, CK, SCAN CBC, CMP, PTT ####[address] Ovalocytes Slight Normal [facility] Comment on above: Performed By: #### H S TROP, PT, CK, SCAN CBC, CMP, PTT ####[address] Platelet Estimate Normal Normal Normal [facility] Comment on above: Performed By: #### H S TROP, PT, CK, SCAN CBC, CMP, PTT ####[address] Platelet mean volume (Bld) [Entitic vol] 9.3 fL Normal 6.6-10.1 [facility] Comment on above: Performed By: #### H S TROP, PT, CK, SCAN CBC, CMP, PTT ####[address] Platelet Morphology Normal Normal Normal [facility] Comment on above: Result Comment: PERF ORMED BY: [facility] [address] [place] [address] PATHOLOGIST ELIGIBILITY EXAMINER DEONNA COURTNEY M.D. Performed By: #### H S TROP, PT, CK, SCAN CBC, CMP, PTT ####[address] Platelets (Bld) [#/Vol] 188 10*3/uL Significant change down 150-450 [facility] Comment on above: Performed By: #### H S TROP, PT, CK, SCAN CBC, CMP, PTT ####[address] Polychromasia Slight Normal [facility] Comment on above: Performed By: #### H S TROP, PT, CK, SCAN CBC, CMP, PTT ####[address] RBC (Bld) [#/Vol] 4.57 10*6/uL Normal 3.90-5.60 [facility] Comment on above: Performed By: #### H S TROP, PT, CK, SCAN CBC, CMP, PTT ####[address] WBC (Bld) [#/Vol] 12.3 10*3/uL High 4.1-10.5 [facility] Comment on above: Performed By: #### H S TROP, PT, CK, SCAN CBC, CMP, PTT ####[address] WBC (Bld) [#/Vol] 14.2 10*3/uL High 4.1-10.5 [facility] Comment on above: Performed By: #### H S TROP, PT, CK, SCAN CBC, CMP, PTT ####[address] Troponin I High Sensitivityo n 03-03-2023 Troponin I High Sensitivity 4.4 pg/mL Normal 0.0-20.0 [facility] Comment on above: Result Comment: PERF ORMED BY: [place] [address] PATHOLOGIST ELIGIBILITY EXAMINER DEONNA COURTNEY M.D. Performed By: #### H S TROP, PT, CK, SCAN CBC, CMP, PTT ####[facility] [address] [place] [id number] [facility] XR chest 1V portableon 03-03 XR chest 1V portable [place] [address] XRay Report Signed Patient: Akbar Byrnes MR#: [id number] : 1960 Acct:[id number] Age/Sex: 62 / M ADM Date: 03/02/23 Loc: Room: [address] [place] [address] Type: ADM IN Attending Dr: Devin Starks [...] SEEN. Impression dictated by: Landen Tavares Jr., D.ONohemi03/03/2023 8:08 AM Dictation Location: [place] [address] Transcribed By: [facility] 03/03/23807 Dictated By: Landen Tavares Jr, DO 03/03/23 0807 Signed By: 03/03/23 0808 [facility] XR chest 1V portable [place] [address] XRay Report Signed Patient: Akbar Byrnes MR#: [id number] : 1960 Acct:[id number] Age/Sex: 62 / M ADM Date: 03/02/23 Loc: Room: [address] [place] [address] Type: ADM IN Attending Dr: Devin Starks [...] Eden Milton M.D.03/03/2023 7:11 AM Dictation Location: [place] [address] Transcribed By: [facility] 03/03/23 0711 Dictated By: Eden Milton MD 03/03/23 0709 Signed By: 03/03/23 0711 Normal [facility] ABO/Rh Retypeon 03-02-2023 ABO/RH Recheck Result Positive Normal [facility] Comment on above: Result Comment: PERF ORMED BY: [facility] [address] [place] [address] PATHOLOGIST ELIGIBILITY EXAMINER DEONNA COURTNEY M.D. Activated partial thrombopla stin time (aPTT) in platelet poor plasma by coagulation aOrdered By: Zachariah Saldaña on 03-02-2023 aPTT Coag (PPP) [Time] 30.0 s 25.1-36.5 [facility] Alanine aminotransferase [En zymatic activity/volume] in Serum or PlasmaOrdered By: Zachariah aSldaña on 03-02-2023 ALT [Catalytic activity/Vol] 22 U/L 7-52 [facility] Albumin [Mass/volume] in Ser um or Plasma by Bromocresol green (BCG) dye binding methoOrdered By: Zachariah Saldaña on 03-02-2023 Albumin BCG dye [Mass/Vol] 3.5 g/dL 3.5-5.7 [facility] Alkaline phosphatase [Enzyma tic activity/volume] in Serum or PlasmaOrdered By: Zachariah Saldaña on 03-02-2023 ALP [Catalytic activity/Vol] 234 U/L 34-104 [facility] Aspartate aminotransferase [ Enzymatic activity/volume] in Serum or PlasmaOrdered By: Zachariah Saldaña on 03-02-2023 AST [Catalytic activity/Vol] 20 U/L 13-39 [facility] Automated erythrocytes count in urine sediment (number/area)Ordered By: Zachariah Saldaña on 03-02-2023 RBC Auto (Urine sed) [#/Area] 0-1 [HPF] 0-4 [facility] Automated leukocytes count i n urine sediment (number/area)Ordered By: Zachariah Saldaña on 03-02-2023 WBC Auto (Urine sed) [#/Area] 0-1 [HPF] 0-4 [facility] Basophils Auto (Bld) [#/Vol] Ordered By: Zachariah Saldaña on 03-02-2023 Basophils (Bld) [#/Vol] 0.1 10*3/uL 0.0-0.2 [facility] Basophils/100 WBC Auto (Bld) Ordered By: Zacahriah Saldaña on 03-02-2023 Basophils/100 WBC (Bld) 0.6 % . [facility] Bilirubin Test strip Ql (U)O rdered By: Zachariah Saldaña on 03-02-2023 Bilirubin Ql (U) Negative Negative [facility] Bilirubin.total [Mass/volume ] in Serum or PlasmaOrdered By: Zachariah Saldaña on 03-02-2023 Bilirubin [Mass/Vol] 0.5 mg/dL 0.3-1.[address] [facility] CT abdomen pelvis w jacinda CT abdomen pelvis w [place] [id number] CT Scan Report Signed Patient: Akbar Byrnes MR#: [id number] : 1960 Acct:[id number] Age/Sex: 62 / M ADM Date: 03/02/23 Loc: ER Room: Type: [facility] ER Attending Dr: Copies to: Zachariah Saldaña Jr, MD Ordering Provider: Zachariah Saldaña Jr, MD Date of Service: 03/02/23 CT/CT chest w con: traumatic injury ([id number]) CT/CT abdomen pelvis w con: traumatic injury [...] evaluation. No acute gross abnormality is seen.] Peritoneum/Retroperitoneu m:No free air, free fluid or lymphadenopathy.[ Abd [...] Tavares Jr., D.O.03/02/2023 9:10 PM Dictation Location: [place] [address] Transcribed By: [facility] 03/02/232109 Dictated By: Landen Tavares Jr, DO 03/02/232053 Signed By: 03/02/232109 [facility] CT cervical spine wo conon 0 03-02-2023 CT cervical spine wo [facility] [place] [address] [place] [address] CT Scan Report Signed Patient: Akbar Byrnes MR#: [id number] : 1960 Acct:[id number] Age/Sex: 62 / M ADM Date: 03/02/23 Loc: ER Room: Type: [facility] ER Attending Dr: Copies to: Zachariah Saldaña Jr, MD Ordering Provider: Zachariah Saldaña Jr, MD Date of Service: 03/02/23 CT/CT cervical spine wo con: traumatic injury ([id number]) CT/CT head/brain wo con: traumatic injury CT [...] Tavares Jr., D.ONohemi03/02/2023 8:52 PM Dictation Location: [place] [address] Transcribed By: [facility] 03/02/232051 Dictated By: Landen Tavares Jr, DO 03/02/232046 Signed By: 03/02/232051 Normal [facility] Calcium [Mass/volume] in Ser um or PlasmaOrdered By: Zachariah Saldaña on 03-02-2023 Calcium [Mass/Vol] 9.7 mg/dL 8.6-10.3 [facility] Carbon dioxide, total [Moles /volume] in Serum or PlasmaOrdered By: Zachariah Saldaña on 03-02-2023 CO2 [Moles/Vol] 27.1 mmol/L 21.0-31.0 [facility] Chloride [Moles/volume] in S nuno or PlasmaOrdered By: Zachariah Saldaña on 03-02-2023 Chloride [Moles/Vol] 103 mmol/L 98-107 [facility] Color Auto (U)Ordered By: Yanna Saldaña on 03-02-2023 Color (U) Yellow Yellow [facility] Complete Blood Count Auto Di ffon 03-02-2023 Basophils (Bld) [#/Vol] 0.1 10*3/uL Normal 0.0-0.2 [facility] Comment on above: Result Comment: PERF ORMED BY: [facility] [address] [place] [address] PATHOLOGIST ELIGIBILITY EXAMINER DEONNA COURTNEY M.D. Performed By: #### H S TROP, CMP, PTT, ETOH, CK, CBC, PT ####[address] Basophils/100 WBC (Bld) 0.6 % Normal . [facility] Comment on above: Performed By: #### H S TROP, CMP, PTT, ETOH, CK, CBC, PT ####[address] Eosinophils (Bld) [#/Vol] 0.2 10*3/uL Normal 0.0-0.45 [facility] Comment on above: Performed By: #### H S TROP, CMP, PTT, ETOH, CK, CBC, PT ####[address] Eosinophils/100 WBC (Bld) 2.3 % Normal . [facility] Comment on above: Performed By: #### H S TROP, CMP, PTT, ETOH, CK, CBC, PT ####[address] Erythrocyte distribution width (RBC) [Ratio] 14.0 % Normal 12.0-14.8 [facility] Comment on above: Performed By: #### H S TROP, CMP, PTT, ETOH, CK, CBC, PT ####[address] Hematocrit (Bld) [Volume fraction] 44.2 % Normal 38.8-50.0 [facility] Comment on above: Performed By: #### H S TROP, CMP, PTT, ETOH, CK, CBC, PT ####[address] Hemoglobin (Bld) [Mass/Vol] 15.1 g/dL Normal 13.0-17.0 [facility] Comment on above: Performed By: #### H S TROP, CMP, PTT, ETOH, CK, CBC, PT ####[address] Lymphocytes (Bld) [#/Vol] 2.5 10*3/uL Normal 1.00-4.8 [facility] Comment on above: Performed By: #### H S TROP, CMP, PTT, ETOH, CK, CBC, PT ####[address] Lymphocytes/100 WBC (Bld) 27.3 % Normal . [facility] Comment on above: Performed By: #### H S TROP, CMP, PTT, ETOH, CK, CBC, PT ####[address] MCH (RBC) [Entitic mass] 31.0 pg Normal 27.5-35.2 [facility] Comment on above: Performed By: #### H S TROP, CMP, PTT, ETOH, CK, CBC, PT ####[address] MCV (RBC) [Entitic vol] 90.7 fL Normal 83.5-101 [facility] Comment on above: Performed By: #### H S TROP, CMP, PTT, ETOH, CK, CBC, PT ####[address] Mean Corpuscular HGB Conc 34.2 g/dL Normal 32.5-35.6 [facility] Comment on above: Performed By: #### H S TROP, CMP, PTT, ETOH, CK, CBC, PT ####[address] Monocytes (Bld) [#/Vol] 0.6 10*3/uL Normal 0.0-0.8 [facility] Comment on above: Performed By: #### H S TROP, CMP, PTT, ETOH, CK, CBC, PT ####[address] Monocytes/100 WBC (Bld) 19.54 % Normal 0.00-20.00 [facility] Comment on above: Performed By: #### H S TROP, CMP, PTT, ETOH, CK, CBC, PT ####[address] Monocytes/100 WBC (Bld) 6.2 % Normal . [facility] Comment on above: Performed By: #### H S TROP, CMP, PTT, ETOH, CK, CBC, PT ####[address] Neutrophils (Bld) [#/Vol] 5.9 10*3/uL Normal 1.8-7.7 [facility] Comment on above: Performed By: #### H S TROP, CMP, PTT, ETOH, CK, CBC, PT ####[address] Neutrophils/100 WBC (Bld) 63.6 % Normal . [facility] Comment on above: Performed By: #### H S TROP, CMP, PTT, ETOH, CK, CBC, PT ####[address] NRBC% 0.2 /100{WBC} Normal 0-0.5 [facility] Comment on above: Performed By: #### H S TROP, CMP, PTT, ETOH, CK, CBC, PT ####[address] Platelet mean volume (Bld) [Entitic vol] 8.7 fL Normal 6.6-10.1 [facility] Comment on above: Performed By: #### H S TROP, CMP, PTT, ETOH, CK, CBC, PT ####[address] Platelets (Bld) [#/Vol] 283 10*3/uL Normal 150-450 [facility] Comment on above: Performed By: #### H S TROP, CMP, PTT, ETOH, CK, CBC, PT ####[address] RBC (Bld) [#/Vol] 4.88 10*6/uL Normal 3.90-5.60 [facility] Comment on above: Performed By: #### H S TROP, CMP, PTT, ETOH, CK, CBC, PT ####[address] WBC (Bld) [#/Vol] 9.3 10*3/uL Normal 4.1-10.5 [facility] Comment on above: Performed By: #### H S TROP, CMP, PTT, ETOH, CK, CBC, PT ####[address] Comprehensive Metabolic Pane dorothy 03-02-2023 Albumin [Mass/Vol] 3.5 g/dL Normal 3.5-5.7 [facility] Comment on above: Performed By: #### H S TROP, CMP, PTT, ETOH, CK, CBC, PT ####[address] Albumin/Globulin [Mass ratio] 1.1 {ratio} Normal [facility] Comment on above: Performed By: #### H S TROP, CMP, PTT, ETOH, CK, CBC, PT ####[address] ALP [Catalytic activity/Vol] 234 U/L High 34-104 [facility] Comment on above: Performed By: #### H S TROP, CMP, PTT, ETOH, CK, CBC, PT ####[address] ALT [Catalytic activity/Vol] 22 U/L Normal 7-52 [facility] Comment on above: Performed By: #### H S TROP, CMP, PTT, ETOH, CK, CBC, PT ####[address] Anion gap [Moles/Vol] 9.2 mmol/L Normal 6.0-15.0 [facility] Comment on above: Performed By: #### H S TROP, CMP, PTT, ETOH, CK, CBC, PT ####[place] [id number] [facility] AST [Catalytic activity/Vol] 20 U/L Normal 13-39 [facility] Comment on above: Performed By: #### H S TROP, CMP, PTT, ETOH, CK, CBC, PT ####[place] [id number] [facility] Bilirubin [Mass/Vol] 0.5 mg/dL Normal 0.3-1.0 [facility] Comment on above: Performed By: #### H S TROP, CMP, PTT, ETOH, CK, CBC, PT ####[address] Calcium [Mass/Vol] 9.7 mg/dL Normal 8.6-10.3 [facility] Comment on above: Performed By: #### H S TROP, CMP, PTT, ETOH, CK, CBC, PT ####[address] Chloride [Moles/Vol] 103 mmol/L Normal 98-107 [facility] Comment on above: Performed By: #### H S TROP, CMP, PTT, ETOH, CK, CBC, PT ####[address] CO2 [Moles/Vol] 27.1 mmol/L Normal 21.0-31.0 [facility] Comment on above: Performed By: #### H S TROP, CMP, PTT, ETOH, CK, CBC, PT ####[place] [id number] [facility] Creatinine [Mass/Vol] 0.77 mg/dL Normal 0.70-1.30 [facility] Comment on above: Performed By: #### H S TROP, CMP, PTT, ETOH, CK, CBC, PT ####[place] [id number] [facility] Creatinine Clr Calc Pharmacy 101.58 Normal [facility] Comment on above: Result Comment: PERF ORMED BY: [facility] [address] [place] [address] PATHOLOGIST ELIGIBILITY EXAMINER DEONNA COURTNEY M.D. Performed By: #### H S TROP, CMP, PTT, ETOH, CK, CBC, PT ####[place] [address] [place] [address] [facility] GFR/1.73 sq M.predicted MDRD (S/P/Bld) [Vol rate/Area] mL/min/{1.73_m2} [facility] Comment on above: Performed By: #### H S TROP, CMP, PTT, ETOH, CK, CBC, PT ####[place] [address] [place] [address] [facility] Globulin (S) [Mass/Vol] 3.2 g/dL [facility] Comment on above: Performed By: #### H S TROP, CMP, PTT, ETOH, CK, CBC, PT ####[address] [address] [facility] Glucose [Mass/Vol] 399 mg/dL High 70-100 [facility] Comment on above: Result Comment: [facility] Glucose Reference Range is dependent on time and content of last meal. Glucose of more than 200 mg/dL in a nonstressed, ambulatory subject supports the diagnosis of Diabetes Mellitus. ADA recommended reference range Performed By: #### H S TROP, CMP, PTT, ETOH, CK, CBC, PT ####[place] [address] [place] [address] [facility] Potassium [Moles/Vol] 4.3 mmol/L Normal 3.5-5.1 [facility] Comment on above: Performed By: #### H S TROP, CMP, PTT, ETOH, CK, CBC, PT ####[place] [address] [place] [address] [facility] Protein [Mass/Vol] 6.7 g/dL Normal 6.4-8.9 [facility] Comment on above: Performed By: #### H S TROP, CMP, PTT, ETOH, CK, CBC, PT ####[address] [address] [facility] Sodium [Moles/Vol] 135 mmol/L Low 136-145 [facility] Comment on above: Performed By: #### H S TROP, CMP, PTT, ETOH, CK, CBC, PT ####[place] [address] [place] [address] [facility] Urea nitrogen [Mass/Vol] 17 mg/dL Normal 03-10 [facility] Comment on above: Performed By: #### H S TROP, CMP, PTT, ETOH, CK, CBC, PT ####[place] [place] [address] [facility] Creatine Kinaseon 03-02-2023 CK [Catalytic activity/Vol] 84 U/L Normal [facility] Comment on above: Performed By: #### H S TROP, CMP, PTT, ETOH, CK, CBC, PT ####[place] [id number] [facility] Creatine kinase [Enzymatic a ctivity/volume] in Serum or PlasmaOrdered By: Zachariah Saldaña on 03-02-2023 CK [Catalytic activity/Vol] 84 U/L [facility] Creatinine [Mass/volume] in Serum or PlasmaOrdered By: Zachariah Saldaña on 03-02-2023 Creatinine [Mass/Vol] 0.77 mg/dL 0.70-1.30 [facility] Dipstick and Microscopicon 0 03-02-2023 Appearance (U) Clear Normal Clear [facility] Comment on above: Order Comment: Name Collection Type:: Clean-Voided Midstream Performed By: #### A DDONUAPLUS ####[place] [id number] [facility] Bacteria,Urine None Seen Normal None Seen [facility] Comment on above: Order Comment: Name Collection Type:: Clean-Voided Midstream Performed By: #### A DDONUAPLUS ####[place] [id number] [facility] Bilirubin,Urine Negative Normal Negative [facility] Comment on above: Order Comment: Name Collection Type:: Clean-Voided Midstream Performed By: #### A DDONUAPLUS ####[place] [id number] [facility] Color (U) Yellow Normal Yellow [facility] Comment on above: Order Comment: Name Collection Type:: Clean-Voided Midstream Performed By: #### A DDONUAPLUS ####[address] [address] [facility] Glucose Ql (U) >=1000 High Normal [facility] Comment on above: Order Comment: Name Collection Type:: Clean-Voided Midstream Performed By: #### A DDONUAPLUS ####[address] [address] [facility] Hyaline Casts,Urine None Seen Normal 0-8 [facility] Comment on above: Order Comment: Name Collection Type:: Clean-Voided Midstream Result Comment: PERF ORMED BY: [place] [address] PATHOLOGIST ELIGIBILITY EXAMINER DEONNA COURTNEY M.D. Performed By: #### A DDONUAPLUS ####[address] [address] [facility] Ketones Ql (U) Negative Normal Negative [facility] Comment on above: Order Comment: Name Collection Type:: Clean-Voided Midstream Performed By: #### A DDONUAPLUS ####[address] [address] [facility] Leukocyte esterase Test strip Ql (U) Negative Normal Negative [facility] Comment on above: Order Comment: Name Collection Type:: Clean-Voided Midstream Performed By: #### A DDONUAPLUS ####[address] [address] [facility] Nitrite,Urine Negative Normal Negative [facility] Comment on above: Order Comment: Name Collection Type:: Clean-Voided Midstream Performed By: #### A DDONUAPLUS ####[address] [address] [facility] Occult Blood,Urine Negative Normal Negative [facility] Comment on above: Order Comment: Name Collection Type:: Clean-Voided Midstream Result Comment: PERF ORMED BY: [facility] [address] [place] [address] PATHOLOGIST ELIGIBILITY EXAMINER DEONNA COURTNEY M.D. Performed By: #### A DDONUAPLUS ####[address] pH (U) 6.5 [pH] Normal 5.0-9.0 [facility] Comment on above: Order Comment: Name Collection Type:: Clean-Voided Midstream Performed By: #### A DDONUAPLUS ####[address] Protein,Urine Trace High Negative [facility] Comment on above: Order Comment: Name Collection Type:: Clean-Voided Midstream Performed By: #### A DDONUAPLUS ####[address] RBC LM.HPF (Urine sed) [#/Area] 0 /[HPF] Normal 0-4 [facility] Comment on above: Order Comment: Name Collection Type:: Clean-Voided Midstream Performed By: #### A DDONUAPLUS ####[address] Specificy [place],Urine 1.028 Normal 1.001-1.03 0 [facility] Comment on above: Order Comment: Name Collection Type:: Clean-Voided Midstream Performed By: #### A DDONUAPLUS ####[address] Squamous Epithelial Cell,Urine None Seen Normal 0-2 [facility] Comment on above: Order Comment: Name Collection Type:: Clean-Voided Midstream Performed By: #### A DDONUAPLUS ####[address] Urobilinogen,Urine Normal Normal Normal [facility] Comment on above: Order Comment: Name Collection Type:: Clean-Voided Midstream Performed By: #### A DDONUAPLUS ####[place] [id number] [facility] WBC LM.HPF (Urine sed) [#/Area] 0 /[HPF] Normal 0-4 [facility] Comment on above: Order Comment: Name Collection Type:: Clean-Voided Midstream Performed By: #### A DDONUAPLUS ####[facility] [id number] [place] [id number] [facility] ECG 12 lead ECGon 03-02-2023 ECG 12 lead ECG [facility] [address] [place] [address] [place] [address] Electrocardiograph Report Signed Patient: Akbar Byrnes MR#: [id number] : 1960 Acct:[id number] Age/Sex: 62 / M ADM Date: 03/02/23 Loc: Room: [address] [place] [address] Type: ADM IN Attending Dr: Devin Starks [...] now present Confirmed by ZACHARIAH SALDAÑA MD ([id number]) on 03/03/2023 5:47:15 AM Referred By: Electronically Signed By:ZACHARIAH SALDAÑA MD Transcribed By: MUS Signed By Zachariah Saldaña Jr, MD [id number] Normal [facility] Eosinophils Auto (Bld) [#/Vo l]Ordered By: Zachariah Saldaña on 03-02-2023 Eosinophils (Bld) [#/Vol] 0.2 10*3/uL 0.0-0.45 [facility] Eosinophils/100 WBC Auto (Bl d)Ordered By: Zachariah Saldaña on 03-02-2023 Eosinophils/100 WBC (Bld) 2.3 % . [facility] Erythrocyte distribution wid th Auto (RBC) [Ratio]Ordered By: Zachariah Saldaña on 03-02-2023 Erythrocyte distribution width (RBC) [Ratio] 14.0 % 12.0-14.8 [facility] Ethanol [Mass/volume] in Ser um or PlasmaOrdered By: Zachariah Saldaña on 03-02-2023 Ethanol [Mass/Vol] mg/dL [facility] Ethanol [Mass/Vol] TNP [facility] Comment on above: Test not performed Ethyl Alcohol Profileon 02-14 Ethanol [Mass/Vol] mg/dL [facility] Comment on above: Performed By: #### H S TROP, CMP, PTT, ETOH, CK, CBC, PT ####[facility] [id number] [place] [id number] [facility] Percent Ethanol Not performed [facility] Comment on above: Result Comment: PERF ORMED BY: [facility] [address] [place] [id number] PATHOLOGIST ELIGIBILITY EXAMINER DEONNA COURTNEY M.D. Performed By: #### H S TROP, CMP, PTT, ETOH, CK, CBC, PT ####[place] [id number] [facility] Globulin Calc (S) [Mass/Vol] Ordered By: Zachariah Saldaña on 03-02-2023 Globulin (S) [Mass/Vol] 3.2 g/dL [facility] Glucose Glucometer (BldC) [M ass/Vol]Ordered By: Zachariah Saldaña on 03-02-2023 Glucose [Mass/Vol] 341 mg/dL [facility] Comment on above: Random Glucose Refer ence Range is dependent on time and content of last meal. Glucose of more than 200 mg/dL in a nonstressed, ambulatory subject supports the diagnosis of Diabetes Mellitus. Glucose Poct Glucometerson 0 03-02-2023 Commemt1 Glu2: Cleaned Meter [facility] [place] Comment on above: Performed By: #### G LULS #### Point of Care testing , Commemt2 WILL NOTIFY DR/SARA [facility] Comment on above: Result Comment: PERF ORMED BY: [facility] [address] [place] [id number] PATHOLOGIST ELIGIBILITY EXAMINER DEONNA COURTNEY M.D. Performed By: #### G LULS #### Point of Care testing , Glucose [Mass/Vol] 341 mg/dL Normal [facility] Comment on above: Result Comment: [place] [facility] Glucose Reference Range is dependent on time and content of last meal. Glucose of more than 200 mg/dL in a nonstressed, ambulatory subject supports the diagnosis of Diabetes Mellitus. Performed By: #### G GILBERT #### Point of Care testing , Glucose [Mass/volume] in Ser um or PlasmaOrdered By: Zachariah Saldaña on 03-02-2023 Glucose [Mass/Vol] 399 mg/dL 70-100 [facility] Comment on above: ADA recommended refe rence rangeRandom Glucose Reference Range is dependent on time and content of last meal. Glucose of more than 200 mg/dL in a nonstressed, ambulatory subject supports the diagnosis of Diabetes Mellitus. Hematocrit Auto (Bld) [Volum e fraction]Ordered By: Zachariah Saldaña on 03-02-2023 Hematocrit (Bld) [Volume fraction] 44.2 % 38.8-50.0 [facility] Hemoglobin [Mass/volume] in BloodOrdered By: Zachariah Saldaña on 03-02-2023 Hemoglobin (Bld) [Mass/Vol] 15.1 g/dL 13.0-17.0 [facility] Ketones Auto test strip (U) [Mass/Vol]Ordered By: Zachariah Saldaña on 03-02-2023 Ketones (U) [Mass/Vol] Negative Negative [facility] Laboratory - CoagulationOrde red By: Zachariah Saldaña on 03-02-2023 PT Coag (PPP) [Time] 11.2 s 9.0-12.9 [facility] Laboratory - UrinalysisOrder ed By: Zachariah Saldaña on 03-02-2023 Hyaline casts LM Ql (Urine sed) None seen [LPF] 0-8 [facility] Leukocytes [#/volume] correc robyn for nucleated erythrocytes in Blood by Automated counOrdered By: Zachariah Saldaña on 03-02-2023 WBC corrected for nucl RBC Auto (Bld) [#/Vol] 9.3 10*3/uL 4.1-10.5 [facility] Lymphocytes Auto (Bld) [#/Vo l]Ordered By: Zachariah Saldaña on 03-02-2023 Lymphocytes (Bld) [#/Vol] 2.5 10*3/uL 1.00-4.8 [facility] Lymphocytes/100 WBC Auto (Bl d)Ordered By: Zachariah Saldaña on 03-02-2023 Lymphocytes/100 WBC (Bld) 27.3 % . [facility] MCH Auto (RBC) [Entitic mass ]Ordered By: Zachariah Saldaña on 03-02-2023 MCH (RBC) [Entitic mass] 31.0 pg 27.5-35.2 [facility] MCHC Auto (RBC) [Mass/Vol]Or dered By: Zachariah Saldaña on 03-02-2023 MCHC (RBC) [Mass/Vol] 34.2 g/dL 32.5-35.6 [facility] MCV Auto (RBC) [Entitic vol] Ordered By: Zachariah Saldaña on 03-02-2023 MCV (RBC) [Entitic vol] 90.7 fL 83.5-101 [facility] Monocyte distribution width [Entitic volume] in Blood by AutomatedOrdered By: Zachariah Saldaña on 03-02-2023 Monocyte distribution width Auto (Bld) [Entitic vol] 19.54 % 0.00-20.00 [facility] Monocytes Auto (Bld) [#/Vol] Ordered By: Zachariah Saldaña on 03-02-2023 Monocytes (Bld) [#/Vol] 0.6 10*3/uL 0.0-0.8 [facility] Monocytes/100 WBC Auto (Bld) Ordered By: Zachariah Saldaña on 03-02-2023 Monocytes/100 WBC (Bld) 6.2 % . [facility] Neutrophils Auto (Bld) [#/Vo l]Ordered By: Zachariah Saldaña on 03-02-2023 Neutrophils (Bld) [#/Vol] 5.9 10*3/uL 1.8-7.7 [facility] Neutrophils/100 WBC Auto (Bl d)Ordered By: Zachariah Saldaña on 03-02-2023 Neutrophils/100 WBC (Bld) 63.6 % . [facility] Nitrite Test strip Ql (U)Ord ered By: Zachariah Saldaña on 03-02-2023 Nitrite Ql (U) Negative Negative [facility] No Panel InformationOrdered By: Zachariah Saldaña on 03-02-2023 Bedside Glucose #[address]/rn [facility] Bedside Glucose Comment Glu2: cleaned meter [facility] Estimated GFR (CKD-EPI) > 60.0 mL/Min [facility] Pharmacy Creatinine Clearance (Chem 101.58 [facility] Nucleated erythrocytes [Pres ence] in Blood by Automated countOrdered By: Zachariah Saldaña on 03-02-2023 Nucleated RBC Auto Ql (Bld) 0.2 /100{WBC} 0-0.5 [facility] Partial Thromboplastin Timeo n 03-02-2023 aPTT Coag (Bld) [Time] 30.0 s Normal 25.1-36.5 [facility] Comment on above: Result Comment: PERF ORMED BY: [facility] [address] [facility] [place] [id number] PATHOLOGIST ELIGIBILITY EXAMINER DEONNA COURTNEY M.D. Performed By: #### H S TROP, CMP, PTT, ETOH, CK, CBC, PT ####[facility] [id number] [place] [id number] [facility] Platelet mean volume Auto (B ld) [Entitic vol]Ordered By: Zachariah Saldaña on 03-02-2023 Platelet mean volume (Bld) [Entitic vol] 8.7 fL 6.6-10.1 [facility] Platelet poor plasma interna tional normalized ratio (INR) by coagulation assay (relatOrdered By: Zachariah Saldaña on 03-02-2023 INR Coag (PPP) [Relative time] 1.0 {INR} [facility] Comment on above: INR Therapeutic Rang e [...] 03-02-2023 Platelets (Bld) [#/Vol] 283 10*3/uL 150-450 [facility] Potassium [Moles/volume] in Serum or PlasmaOrdered By: Zachariah Saldaña on 03-02-2023 Potassium [Moles/Vol] 4.3 mmol/L 3.5-5.1 [facility] Protein Auto test strip (U) [Mass/Vol]Ordered By: Zachariah Saldaña on 03-02-2023 Protein (U) [Mass/Vol] Trace mg/dL Negative [facility] Protein [Mass/volume] in Ser um or PlasmaOrdered By: Zachariah Saldaña on 03-02-2023 Protein [Mass/Vol] 6.7 g/dL 6.4-8.9 [facility] Prothrombin Time INRon 03-02 INR Coag (PPP) [Relative time] 1.0 {INR} Normal [facility] Comment on above: Result Comment: INR Therapeutic [...] TROP, CMP, PTT, ETOH, CK, CBC, PT ####[facility] [id number] PT Coag (PPP) [Time] 11.2 s Normal 9.0-12.9 [facility] Comment on above: Performed By: #### H S TROP, CMP, PTT, ETOH, CK, CBC, PT ####[facility] [id number] RBC Auto (Bld) [#/Vol]Ordere d By: Zachariah Saldaña on 03-02-2023 RBC (Bld) [#/Vol] 4.88 10*6/uL 3.90-5.60 [facility] Serum or plasma albumin/glob ulin mass ratioOrdered By: Zachariah Saldaña on 03-02-2023 Albumin/Globulin [Mass ratio] 1.1 {ratio} [facility] Serum or plasma anion gap de terminationOrdered By: Zachariah Saldaña on 03-02-2023 Anion gap [Moles/Vol] 9.2 mmol/L 6.0-15.0 [facility] Sodium [Moles/volume] in Ser um or PlasmaOrdered By: Zachariah Saldaña on 03-02-2023 Sodium [Moles/Vol] 135 mmol/L 136-145 [facility] Specific gravity Auto test s trip (U) [Rel density]Ordered By: Zachariah Saldaña on 03-02-2023 Specific gravity (U) [Rel density] 1.028 1.001-1.03 0 [facility] Squamous epithelial cells de tection in urine sediment by light microscopyOrdered By: Zachariah Saldaña on 03-02-2023 Epithelial cells.squamous LM Ql (Urine sed) None seen [HPF] 0-2 [facility] Troponin I High Sensitivityo n 03-02-2023 Troponin I High Sensitivity 4.9 pg/mL Normal 0.0-20.0 [facility] Comment on above: Result Comment: PERF ORMED BY: [facility] [address] [place] [address] PATHOLOGIST ELIGIBILITY EXAMINER DEONNA COURTNEY M.D. Performed By: #### H S TROP, CMP, PTT, ETOH, CK, CBC, PT ####[facility] [address] [place] [address] [facility] Troponin I.cardiac [Mass/vol ume] in Serum or Plasma by Detection limit <= 0.01 ng/Ordered By: Zachariah Saldaña on 03-02-2023 Troponin I.cardiac DL <= 0.01 ng/mL [Mass/Vol] 4.9 pg/mL 0.0-20.0 [facility] Type and Screenon 03-02-2023 ABO and Rh group Nom (Bld) Blood group O Rh(D) positive Normal [facility] Comment on above: Result Comment: PERF ORMED BY: [facility] [address] [place] [address] PATHOLOGIST ELIGIBILITY EXAMINER DEONNA COURTNEY M.D. Urea nitrogen [Mass/volume] in Serum or PlasmaOrdered By: Zachariah Saldaña on 03-02-2023 Urea nitrogen [Mass/Vol] 17 mg/dL 7-25 [facility] Urine bacteria detection by automated methodOrdered By: Zachariah Saldaña on 03-02-2023 Bacteria Auto Ql (U) None seen None Seen [facility] Urine clarity by refractomet ry automatedOrdered By: Zachariah Saldaña on 03-02-2023 Clarity Refractometry automated (U) Clear Clear [facility] Urine glucose measurement by automated test strip (mass/volume)Ordered By: Zachariah Saldaña on 03-02-2023 Glucose Auto test strip (U) [Mass/Vol] >=1000 mg/dL Normal [facility] Urine hemoglobin detection b y automated test stripOrdered By: Zachariah Saldaña on 03-02-2023 Hemoglobin Auto test strip Ql (U) Negative Negative [facility] Urine leukocyte esterase det ection by automated test stripOrdered By: Zachariah Saldaña on 03-02-2023 Leukocyte esterase Auto test strip Ql (U) Negative Negative [facility] Urobilinogen Auto test strip (U) [Mass/Vol]Ordered By: Zachariah Saldaña on 03-02-2023 Urobilinogen (U) [Mass/Vol] Normal mg/dL Normal [facility] WBC Auto (Bld) [#/Vol]Ordere d By: Zachariah Saldaña on 03-02-2023 WBC (Bld) [#/Vol] 9.3 10*3/uL 4.1-10.5 [facility] XR chest 1V portableon 03-02 XR chest 1V portable [facility] [address] XRay Report Signed Patient: Akbar Byrnes MR#: [id number] : 1960 Acct:[id number] Age/Sex: 62 / M ADM Date: 03/02/23 [...] CHANGES. Impression dictated by: Landen Tavares Jr., D.O.03/02/2023 8:45 PM Dictation Location: [place] [address] Transcribed By: DORIS 03/02/232044 Dictated By: Landen Tavares Jr, DO 03/02/232042 Signed By: 03/02/232044 Normal [facility] pH Auto test strip (U)Ordere d By: Zachariah Saldaña on 03-02-2023 pH (U) 6.5 [pH] 5.0-9.0 [facility] CBC AUTO DIFFon 12-08-2022 BASO # 0.1 103/ul Normal 0.0-0.1 [facility] Comment on above: Performed By: #### C BC ####[facility] [address] [place], [place] [address]DrNohemi Laguna Basophils/100 WBC (Bld) 0.4 % Normal 0.2-2.0 [facility] Comment on above: Performed By: #### C BC ####[facility] Drddglptxk9[address] [place], [place] [address]DrNohemi Laguna EO # 0.1 103/ul Normal 0.0-0.7 [facility] Comment on above: Performed By: #### C BC ####[facility] Fnahsfvzmn34[address] [place], [place] [address]DrNohemi Laguna Eosinophils/100 WBC (Bld) 0.4 % Critically low 0.9-7.0 [facility] Comment on above: Performed By: #### C BC ####[facility] Y[address]lltjpcn[address] [place], [place] [address]DrNohemi Laguna Erythrocyte distribution width (RBC) [Ratio] 13.1 % Normal 11.0-15.0 [facility] Comment on above: Performed By: #### C BC ####[facility] Geetqgymad[address] [place], [place] [address]DrNohemi Laguna Hematocrit (Bld) [Volume fraction] 42.1 % Normal 42.0-54.0 [facility] Comment on above: Performed By: #### C BC ####[facility] Qfjtyfhpya[address] [place], [place] [address]Dr. Abhinav Laguna Hemoglobin (Bld) [Mass/Vol] 14.4 g/dL Normal 14.0-18.0 [facility] Comment on above: Performed By: #### C BC ####[facility] [address] [place] [address]DrNohemi Jeangallo Laguna IG # 0.36 10e3/ul Critically high 0.00-0.03 [facility] Comment on above: Performed By: #### C BC ####[facility] [address] [place] [address]DrNohemi Laguna IG % 2.4 % Critically high 0.0-0.5 [facility] Comment on above: Performed By: #### C BC ####[facility] Zkpm[address]rjkk[address] [place], [place] [address]DrNohemi Laguna LYMPH # 1.9 103/ul Normal 1.2-3.8 [facility] Comment on above: Performed By: #### C BC ####[facility] Uyrepbwfny6[address] [place], [place] [address]DrNohemi Laguna Lymphocytes/100 WBC (Bld) 12.5 % Critically low 20.5-60.0 [facility] Comment on above: Performed By: #### C BC ####[facility] Bedquxjykh[address] [place], [place] [address]DrNohemi Laguna MANUAL DIFF REQ NO Normal [facility] Comment on above: Performed By: #### C BC ####[facility] Zojxpuzgop[address] [place], [place] [address]DrNohemi Laguna MCH (RBC) [Entitic mass] 31.1 pg Normal 25.9-34.0 [facility] Comment on above: Performed By: #### C BC ####[facility] Uodfwxtvsa[address] [place], [place] [address]DrNohemi Laguna MCHC (RBC) [Mass/Vol] 34.2 g/dL Normal 29.9-35.2 [facility] Comment on above: Performed By: #### C BC ####[facility] Ctpphkobeu9928[address] [place], [place] [address]DrNohemi Laguna MCV (RBC) [Entitic vol] 90.9 fL Normal 80.0-94.0 [facility] Comment on above: Performed By: #### C BC ####[facility] Yqsgodlnrv[address]35[address] [place], [place] [address]DrNohemi Abhinav Laguna MONO # 0.4 103/ul Normal 0.3-0.8 [facility] Comment on above: Performed By: #### C BC ####[facility] Igrvowhqey[address] [place], [place] [address]Dr. Abhinav Jase Monocytes/100 WBC (Bld) 2.3 % Normal 1.7-12.0 [facility] Comment on above: Performed By: #### C BC ####[facility] Sbkidkqtdi23[address] [place], [place] [address]Dr. Abhinav Laguna NEUT # 12.5 103/ul Critically high 1.4-6.5 [facility] Comment on above: Performed By: #### C BC ####[facility] Liiswxpakl36[address] [place], [place] [address]Dr. Abhinav Jase Neutrophils/100 WBC (Bld) 82.0 % Critically high 43.0-75.0 [facility] Comment on above: Performed By: #### C BC ####[facility] Nsurusinzd346[address] [place], [place] [address]DrNohemi Abhinav Jase Platelet mean volume (Bld) [Entitic vol] 10.0 fL Normal 9.5-13.5 [facility] Comment on above: Performed By: #### C BC ####[facility] Xltlyqtfzs[address] [place], [place] [address]Dr. Abhinav Jase PLT 299 103/ul Normal 150-450 [facility] Comment on above: Performed By: #### C BC ####[facility] Xxuytedelt[address] [place], [place] [address]DrNohemi Jeangallo Jase RBC 4.63 106/ul Critically low 4.70-6.10 [facility] Comment on above: Performed By: #### C BC ####[facility] Fzlrvuvuym[address] [place], [place] [address]DrNohemi Laguna WBC 15.2 103/ul Critically high 4.0-11.0 [facility] Comment on above: Performed By: #### C BC ####[facility] Cvwoyljbwj6870[address] [place], [place] [address]Dr. Abhinav Laguna CT HEAD WO CONon 12-08-2022 CT HEAD WO CON Normal The [facility] ER URINE PROFILEon 3 Bilirubin Ql (U) Negative Normal NEGATIVE [facility] Comment on above: Performed By: #### U MICRO, ERUR ####[facility] Rjlpzhopwc[address] [place], [place] [address]Dr. Abhinav Laguna Clarity (U) CLEAR Normal CLEAR [facility] Comment on above: Performed By: #### U MICRO, ERUR ####[facility] Mwmbvbtrel[address] [place], [place] [address]Dr. Abhinav Laguna Color (U) YELLOW Normal YELLOW [facility] Comment on above: Performed By: #### U MICRO, ERUR ####[facility] Oxecpevwhb[address] [place], [place] [address]Dr. Abhinav Laguna ERUAHD A micrscopic examina tion will be performed if indicated. Normal The [facility] Comment on above: Performed By: #### U MICRO, ERUR ####[facility] Agnymxcufb[address] [place], [place] [address]Dr. Abhinav Laguna Glucose Ql (U) >1000 Abnormal NEGATIVE The [facility] Comment on above: Performed By: #### U MICRO, ERUR ####[facility] Rfwxoidzol1068[address] [place], [place] [address]Dr. Abhinav Laguna Hemoglobin Ql (U) Negative Normal NEGATIVE [facility] Comment on above: Performed By: #### U MICRO, ERUR ####[facility] Oxcuaaumam24[address] [place], [place] [address]Dr. Abhinav Laguna Ketones Ql (U) TRACE Abnormal NEGATIVE The [facility] Comment on above: Performed By: #### U MICRO, ERUR ####[facility] Svmslwvijm[address] [place], [place] [address]Dr. Abhinav Laguna LEUKOCYTES Negative Normal NEGATIVE [facility] Comment on above: Performed By: #### U MICRO, ERUR ####[facility] [address] [place] [address]Dr. Abhinav Laguna Nitrite Ql (U) Negative Normal NEGATIVE [facility] Comment on above: Performed By: #### U MICRO, ERUR ####[facility] [address] [place] [address]Dr. Abhinav Laguna pH (U) 5.0 [pH] Normal 5-9 [facility] Comment on above: Performed By: #### U MICRO, ERUR ####[facility] Acrdqiagro4027[address] [place], [place] [address]Dr. Abhinav Laguna Protein (U) [Mass/Vol] 30 mg/dL Abnormal NEGAT HOLLIS/ TRACE [facility] Comment on above: Performed By: #### U MICRO, ERUR ####[facility] Mfqeapeyxs[address] [place], [place] [address]Dr. Abhinav Laguna SPEC GRAVITY >=1.030 Abnormal 1.005-<=1. 025 [facility] Comment on above: Performed By: #### U MICRO, ERUR ####[facility] Ghexwvajby[address] [place], [place] [address]Dr. Abhinav Laguna UR MICRO IND INDICATED Normal [facility] Comment on above: Performed By: #### U MICRO, ERUR ####[facility] [address] [place] [address]Dr. Abhinav Laguna Urobilinogen Qn (U) 1.0 {Marshall'U}/dL Normal 0.2 - 1. 0 [facility] Comment on above: Performed By: #### U MICRO, ERUR ####[facility] Oyaecjihks[address] [place], [place] [address]Dr. Abhinav Laguna PROF CHEM 8 (BAS METB)on Anion gap [Moles/Vol] 11.3 mmol/L Normal [facility] Comment on above: Performed By: #### B MP ####[facility] Xecbeiamgy[address] [place], [place] [address]Dr. Abhinav Laguna Calcium [Mass/Vol] 10.4 mg/dL Critically high 8.5-10.1 [facility] Comment on above: Performed By: #### B MP ####[facility] [address] [place] [address]Dr. Abhinav Laguna Chloride [Moles/Vol] 99 mmol/L Normal 98-107 [facility] Comment on above: Performed By: #### B MP ####[facility] Psvvfbpdhd7[address] [place] [address]Dr. Abhinav Laguna CO2 [Moles/Vol] 28.0 mmol/L Normal 21.0-32.0 [facility] Comment on above: Performed By: #### B MP ####[facility] Abnmdewkka[address] [place], [place] [address]Dr. Abhinav Laguna Creatinine [Mass/Vol] 1.05 mg/dL Normal 0.70-1.30 [facility] Comment on above: Performed By: #### B MP ####[facility] Rfkmbwmkan8[address] [place], [place] [address]Dr. Abhinav Jase EGFR-AF SALVADOREAN >60 Normal >=60 [facility] Comment on above: Performed By: #### B MP ####[facility] Xjcfxtudef[address] [place], [place] [address]Dr. Abhinav Laguna EGFR-NON AF SALVADOREAN >60 Normal >=60 [facility] Comment on above: Performed By: #### B MP ####[facility] Eaululdjku[address] [place], [place] [address]Dr. Mirandagallo Laguna Glucose [Mass/Vol] 244 mg/dL Critically high 74-106 [facility] Comment on above: Performed By: #### B MP ####[facility] Cvuqkeixhh[address] [place], [place] [address]Dr. Mirandagallo Laguna Potassium [Moles/Vol] 4.3 mmol/L Normal 3.5-5.1 [facility] Comment on above: Performed By: #### B MP ####[facility] Wgbrxcphjw[address] [place], [place] [address]Dr. Abhinav Laguna Sodium [Moles/Vol] 134 mmol/L Critically low 136-145 [facility] Comment on above: Performed By: #### B MP ####[facility] Zymxufmscf[address] [place] [address]Dr. Abhinav Laguna Urea nitrogen [Mass/Vol] 26.0 mg/dL Critically high 7.0-18.0 [facility] Comment on above: Performed By: #### B MP ####[facility] [address]ks[address] [place] [address]Dr. Abhinav Laguna Urea nitrogen/Creatinine [Mass ratio] 24.8 mg/mg Normal [facility] Comment on above: Performed By: #### B MP ####[facility] Qnmxsqbgza[address] [place] [address]Dr. Abhinav Lagnua URINE MICROSCOPIC ONLYon BACTERIA NONE SEEN Normal NONE SEEN The [facility] Comment on above: Performed By: #### U MICRO, ERUR ####[facility] Ycr[address]ffyxmw[address] [place] [address]Dr. Abhinav Laguna Bacteria identified Cx Nom (U) NOT INDICATED Normal [facility] Comment on above: Performed By: #### U MICRO, ERUR ####[facility] Vfpkrmiiho[address] [place] [address]Dr. Abhinav Laguna CA OX CRYSTALS MANY Normal The [facility] Comment on above: Performed By: #### U MICRO, ERUR ####[facility] Glsxbgsboc[address] [place] [address]Dr. Abhinav Laguna CAST SEEN Abnormal NONE SEEN The [facility] Comment on above: Performed By: #### U MICRO, ERUR ####[facility] Tbqegujysa[address] [place] [address]Dr. Abhinav Laguna Crystals LM Nom (Urine sed) SEEN Abnormal NONE SEEN The [facility] Comment on above: Performed By: #### U MICRO, ERUR ####[facility] Kwobcvnymi[address] [place], [place] [address]Dr. Abhinav Laguna Epithelial cells LM Ql (Urine sed) RARE Normal NONE SEEN /RARE [facility] Comment on above: Performed By: #### U MICRO, ERUR ####[facility] Vvfvyfyjvk[address] [place], [place] [address]Dr. Abhinav Laguna HYALINE CAST FEW Normal The [facility] Comment on above: Performed By: #### U MICRO, ERUR ####[facility] Vdciykvucc[address] [place] [address]Dr. Abhinav Laguna MUCOUS TRACE Abnormal NONE SEEN The [facility] Comment on above: Performed By: #### U MICRO, ERUR ####[facility] Mfhiskjnxh39[address] [place] [address]Dr. Abhinav Laguna RBC 0-2 Normal 0-2 [facility] Comment on above: Performed By: #### U MICRO, ERUR ####[facility] I[address]tkczcet[address] [place] [address]Dr. Abhinav Laguna WBC 0-2 Abnormal NONE SEEN The [facility] Comment on above: Performed By: #### U MICRO, ERUR ####[facility] Kzhlxfxqub230[address] [place] [address]Dr. Abhinav Laguna XR CHEST 1 Von 12-08-2022 XR CHEST 1 V Normal [facility] BLOOD GASES BTYon 12-04-2022 02 MODE ROOM AIR Normal [facility] Comment on above: Performed By: #### A BG ####[facility] Xvpneonraj30[address] [place], [place] [address]Dr. Abhinav Laguna ALLENS TEST Positive Normal The [facility] Comment on above: Performed By: #### A BG ####[facility] O[address]wphf[address] [place] [address]Dr. Abhinav Laguna Base excess Calc (Bld) [Moles/Vol] 2.2 mmol/L Critically high -2.0-2.0 [facility] Comment on above: Performed By: #### A BG ####[facility] Totykfdnjn[address] [place] [address]Dr. Abhinav Laguna BIPAP PRESSURE Normal The [facility] Comment on above: Performed By: #### A BG ####[facility] Qipbsqsjig[address] [place] [address]Dr. Abhinav Laguna CPAP Normal [facility] Comment on above: Performed By: #### A BG ####[facility] Zaxxgabccj[address] [place], [place] [address]Dr. Abhinav Laguna FIO2 Normal [facility] Comment on above: Performed By: #### A BG ####[facility] Icuokgqsbu[address] [place], [place] [address]Dr. Abhinav Laguna HCO3 (Bld) [Moles/Vol] 27.0 mmol/L Critically high 22.0-26 .0 [facility] Comment on above: Performed By: #### A BG ####[facility] Auopqlvchi[address] [place], [place] [address]Dr. Abhinav Laguna LPM Normal [facility] Comment on above: Performed By: #### A BG ####[facility] Zyzuihopwh[address] [place], [place] [address]Dr. Abhinav Laguna MINUTE VOLUME Normal [facility] Comment on above: Performed By: #### A BG ####[facility] Oljxsunbxk[address] [place], [place] [address]Dr. Abhinav Laguna Oxygen (Bld) [Partial pressure] 84.3 mm[Hg] Normal 80.0-100.0 [facility] Comment on above: Performed By: #### A BG ####[facility] Hqgpybqjru[address] [place], [place] [address]Dr. Abhinav Laguna Oxygen saturation in Blood 96.8 % Normal 95.0-100.0 [facility] Comment on above: Performed By: #### A BG ####[facility] Itotziuitx7[address] [place], [place] [address]Dr. Abhinav Laguna PCO2 43.1 mmHg Normal 35.0-45.0 [facility] Comment on above: Performed By: #### A BG ####[facility] Aaisnlzbjy[address] [place], [place] [address]Dr. Abhinav Laguna PEEP Normal [facility] Comment on above: Performed By: #### A BG ####[facility] Btxtbykyvz0[address] [place], [place] [address]Dr. Abhinav Laguna pH (Bld) 7.405 [pH] Normal 7.350-7.45 0 [facility] Comment on above: Performed By: #### A BG ####[facility] Srqmtqrmfb[address] [place] [address]Dr. Abhinav Laguna PIP [facility] Comment on above: Performed By: #### A BG ####[facility] Ckvvtagqlw[address] [place] [address]Dr. Abhinav Laguna PS [facility] Comment on above: Performed By: #### A BG ####[facility] Tsailzpvrp[address] [place] [address]Dr. Abhinav Laguna PUNCTURE SITE RR Normal [facility] Comment on above: Performed By: #### A BG ####[facility] Uopjgcrojz[address] [place] [address]Dr. Abhinav Laguna RATE [facility] Comment on above: Performed By: #### A BG ####[facility] Dpcobdnadw[address] [place], [place] [address]Dr. Abhinav Laguna VENT MODE [facility] Comment on above: Performed By: #### A BG ####[facility] Mqgnofruul[address] [place], [place] [address]Dr. Abhinav Laguna [place] [facility] Comment on above: Performed By: #### A BG ####[facility] Nptdawiyfo[address] [place], [place] [address]Dr. Abhinav Laguna LACTATE/LACTIC ACIDon 2022 Lactate [Moles/Vol] 2.4 mmol/L Critically high 0.4-2.0 [facility] Comment on above: Performed By: #### L ACT ####[facility] Cowovxccqf[address] [place], [place] [address]Dr. Abhinav Laguna Lactate [Moles/Vol] 3.1 mmol/L Critically high 0.4-2.0 [facility] Comment on above: Performed By: #### L ACT ####[facility] [address]ebhzpfqsv[address] [place], [place] [address]Dr. Abhinav Laguna POINT OF CARE GLUCOSEon 11-16 Glucose [Mass/Vol] 286 mg/dL Critically high 74-106 T [facility] Comment on above: Performed By: #### P OCGLUC ####[facility] Scnesqtzns[address] [place] [address]Dr. Abhinav Laguna Glucose [Mass/Vol] 94 mg/dL Normal 74-106 [facility] Comment on above: Performed By: #### P OCGLUC ####[facility] Vojbygzieu[address] [place], [place] [address]Dr. Abhinav Laguna ACETONE SERUMon 12-03-2022 ACETONE Negative Normal NEGATIVE [facility] Comment on above: Performed By: #### A CETON ####[facility] Cvyujhheha[address] [place], [place] [address]Dr. Abhinav Laguna BNPon 12-03-2022 Natriuretic peptide B (Bld) [Mass/Vol] 130.0 pg/mL Normal <=900.0 [facility] Comment on above: Performed By: #### B SIGN LANGUAGE TEACHER, CMP, LIPA, HSTROPN ####[facility] Wmrgpzmcvl[address] [place], [place] [address]Dr. Abhinav Laguna CBC AUTO DIFFon 12-03-2022 BASO # 0.0 103/ul Normal 0.0-0.1 [facility] Comment on above: Performed By: #### C BC ####[facility] Ycimyvenhb[address] [place], [place] [address]Dr. Abhinav Laguna Basophils/100 WBC (Bld) 0.2 % Normal 0.2-2.0 [facility] Comment on above: Performed By: #### C BC ####[facility] Mdwtmgsjlq7[address] [place], [place] [address]Dr. Abhinav Laguna EO # 0.0 103/ul Normal 0.0-0.7 [facility] Comment on above: Performed By: #### C BC ####[facility] Uitepirthx[address] [place], [place] [address]Dr. Abhinav Laguna Eosinophils/100 WBC (Bld) 0.1 % Critically low 0.9-7.0 [facility] Comment on above: Performed By: #### C BC ####[facility] Avnvamqvwx[address] [place], [place] [address]Dr. Abhinav Laguna Erythrocyte distribution width (RBC) [Ratio] 12.9 % Normal 11.0-15.0 [facility] Comment on above: Performed By: #### C BC ####[facility] Kmrnypowxj[address] [place] [address]Dr. Abhinav Laguna Hematocrit (Bld) [Volume fraction] 44.2 % Normal 42.0-54.0 [facility] Comment on above: Performed By: #### C BC ####[facility] Rkcvambscw5839 [place] [address]Dr. Abhinav Laguna Hemoglobin (Bld) [Mass/Vol] 15.7 g/dL Normal 14.0-18.0 [facility] Comment on above: Performed By: #### C BC ####[facility] Nhjxeihnmv[address] [place], [place] [address]Dr. Abhinav Laguna IG # 0.14 10e3/ul Critically high 0.00-0.03 [facility] Comment on above: Performed By: #### C BC ####[facility] Opeoblfgkr[address] [place] [address]Dr. Abhinav Laguna IG % 0.9 % Critically high 0.0-0.5 [facility] Comment on above: Performed By: #### C BC ####[facility] Fzkwywyyzr[address] [place], [place] [address]Dr. Abhinav Laguna LYMPH # 1.9 103/ul Normal 1.2-3.8 [facility] Comment on above: Performed By: #### C BC ####[facility] Mrpxwnnlpm[address] [place], [place] [address]Dr. Mirandagallo Laguna Lymphocytes/100 WBC (Bld) 11.8 % Critically low 20.5-60.0 [facility] Comment on above: Performed By: #### C BC ####[facility] V[address]vjsoasn[address] [place], [place] [address]Dr. Mirandagallo Laguna MANUAL DIFF REQ NO Normal [facility] Comment on above: Performed By: #### C BC ####[facility] [address]prvwtoxud[address] [place] [address]Dr. Abhinav Laguna MCH (RBC) [Entitic mass] 31.0 pg Normal 25.9-34.0 [facility] Comment on above: Performed By: #### C BC ####[facility] Lxyilouvpm6[address] [place] [id number]. Abhinav Jase MCHC (RBC) [Mass/Vol] 35.5 g/dL Critically high 29.9-35.2 [facility] Comment on above: Performed By: #### C BC ####[facility] Xszhrfzfer26[address] [place] [id number] Laguna MCV (RBC) [Entitic vol] 87.4 fL Normal 80.0-94.0 [facility] Comment on above: Performed By: #### C BC ####[facility] Oaoukxdrce[address] [place] [address]DrNohemi Laguna MONO # 1.0 103/ul Critically high 0.3-0.8 [facility] Comment on above: Performed By: #### C BC ####[facility] Hjmmenyscs[address] [place], [place] [address]Dr. Abhinav Laguna Monocytes/100 WBC (Bld) 6.1 % Normal 1.7-12.0 [facility] Comment on above: Performed By: #### C BC ####[facility] Luvishxcvl7[address] [place], [place] [address]Dr. Abhinav Laguna NEUT # 13.0 103/ul Critically high 1.4-6.5 The [facility] Comment on above: Performed By: #### C BC ####[facility] Dbkdknzdab6[address] [place], [place] [address]Dr. Abhinav Laguna Neutrophils/100 WBC (Bld) 80.9 % Critically high 43.0-75.0 [facility] Comment on above: Performed By: #### C BC ####[facility] Dxpyaqpqwr[address] [place], [place] [id number] Laguna Platelet mean volume (Bld) [Entitic vol] 10.0 fL Normal 9.5-13.5 [facility] Comment on above: Performed By: #### C BC ####[facility] Yoosqiqaxc26[address] [place], [place] [id number]. Abhinav Laguna PLT 446 103/ul Normal 150-450 [facility] Comment on above: Performed By: #### C BC ####[facility] Hozneeasuo70[address] [place] [address]Dr. Abhinav Laguna RBC 5.06 106/ul Normal 4.70-6.10 [facility] Comment on above: Performed By: #### C BC ####[facility] Ljpmqeiono5981 [place] [id number]. Mirandagallo Laguna WBC 16.1 103/ul Critically high 4.0-11.0 [facility] Comment on above: Performed By: #### C BC ####[facility] Dlutnclkjh7[address] [place] [address]Dr. Abhinav Laguna DRUG SCREEN RAPID (URINE)on 12-03-2022 AMP Negative Normal NEGATIVE [facility] Comment on above: Performed By: #### E RUR, DRUGRPD ####[facility] Thmgzarttf[address] [place], [place] [address]Dr. Abhinav Laguna BAR Positive Abnormal NEGATIVE The [facility] Comment on above: Performed By: #### E RUR, DRUGRPD ####[facility] Mogzneymdt18[address] [place] [address]Dr. Abhinav Laguna BUP Negative Normal NEGATIVE The [facility] Comment on above: Performed By: #### E RUR, DRUGRPD ####[facility] Okkjzbmawl1586 [place] [address]Dr. Abhinav Laguna BZO Negative Normal NEGATIVE The [facility] Comment on above: Performed By: #### E RUR, DRUGRPD ####[facility] Wrqhnfikub5383 [place] [address]Dr. Abhinav Laguna ISELA Negative Normal NEGATIVE The [facility] Comment on above: Performed By: #### E RUR, DRUGRPD ####[facility] Evpoftiwjw6524[address] [place], [place] [address]Dr. Abhinav Laguna CUT-OFFS SEE BELOW Normal [facility] Comment on above: Result Comment: AMP (Amphetamine): 500ng/mL, BAR (Barbituates): 200 ng/mL, BZO (Benzodiazepines): 150 ng/mL, BUP (Buprenorphine): 10 ng/mL, SIELA (Cocaine): 150 ng/mL, mAMP (Methamphetamine): 500 ng/mL, MTD (Methadone): 200 ng/mL, OPI (Opiates): 100 ng/mL, OXY (Oxycodone): 100 ng/mL, PCP (Phencyclidine): 25 ng/mL, PPX (Propoxyphene): 300 ng/mL, THC (Cannabinoids): 50 ng/mL, TCA (Trycyclic Antidepressants): 300 ng/mL Performed By: #### E RUR, DRUGRPD ####[facility] Hvigclvkvz6[address] [place], [place] [address]Dr. [facility] DRUG CUT HEADER DRUG CLASS TEST SYST EM CUT-OFF CONCENTRATIONS ARE FOLLOWS: Normal [facility] Comment on above: Performed By: #### E RUR, DRUGRPD ####[facility] Jhcdpcxren7[address] [place], [place] [address]Dr. gallo [facility] mAMP Negative Normal NEGATIVE The [facility] Comment on above: Performed By: #### E RUR, DRUGRPD ####[facility] Vdgaijhnhv9[address] [place], [place] [address]Dr. [facility] MTD Negative Normal NEGATIVE [facility] Comment on above: Performed By: #### E RUR, DRUGRPD ####[facility] Pacxhiqual3350[address] [place], [place] [address]Dr. [facility] OPI Positive Abnormal NEGATIVE The [facility] Comment on above: Performed By: #### E RUR, DRUGRPD ####[facility] Fooxhtzppi7[address] [place], [place] [address]Dr. [facility] OXY Negative Normal NEGATIVE The [facility] Comment on above: Performed By: #### E RUR, DRUGRPD ####[facility] Ccpqysgyfb0146[address] [place], [place] [address]Dr. [facility] PCP Negative Normal NEGATIVE The [facility] Comment on above: Performed By: #### E RUR, DRUGRPD ####[facility] Etbsfqjwva5376[address] [place], [place] [address]Dr. [facility] PPX Negative Normal NEGATIVE The [facility] Comment on above: Performed By: #### E RUR, DRUGRPD ####[facility] Zkwjwuhvir[address] [place], [place] [address]Dr. Abhinav Laguna TCA Negative Normal NEGATIVE The [facility] Comment on above: Performed By: #### Lon BRODY DRUGRPD ####[facility] Bljaxsrcql200[address] [place], [place] [address]Dr. Abhinav Laguna THC Positive Abnormal NEGATIVE The [facility] Comment on above: Performed By: #### Lon BRODY DRUGRPD ####[facility] Fiewrnnrvb12[address] [place], [place] [address]Dr. Abhinav Laguna ER URINE PROFILEon 3 Bilirubin Ql (U) Negative Normal NEGATIVE The [facility] Comment on above: Performed By: #### Lon BRODY DRUGRPD ####[facility] Owsscnwlsr140[address] [place], [place] [address]Dr. Abhinav Laguna Clarity (U) CLEAR Normal CLEAR [facility] Comment on above: Performed By: #### Lon BRODY DRUGRPD ####[facility] Luaghrjkvd[address] [place], [place] [address]Dr. Abhinav Laguna Color (U) LT. YELLOW Normal YELLOW [facility] Comment on above: Performed By: #### Lon BRODY DRUGRPD ####[facility] Cudohwucji[address] [place], [place] [address]Dr. Abhinav Laguna ERUAHD A micrscopic examina tion will be performed if indicated. Normal [facility] Comment on above: Performed By: #### Lon BRODY DRUGRPD ####[facility] Rffnotyqxl86[address] [place], [place] [address]Dr. Abhinav Laguna Glucose Ql (U) >1000 Abnormal NEGATIVE The [facility] Comment on above: Performed By: #### Lon BRODY DRUGRPD ####[facility] Exbjjpbadn145[address] [place], [place] [address]Dr. Abhinav Laguna Hemoglobin Ql (U) Negative Normal NEGATIVE [facility] Comment on above: Performed By: #### Lon BRODY DRUGRPD ####[facility] Ouggaxxpom033[address] [place], [place] [address]Dr. Abhinav Laguna Ketones Ql (U) Negative Normal NEGATIVE The [facility] Comment on above: Performed By: #### Lon RUR, DRUGRPD ####[facility] Bedvlpvxsz8[address] [place] [address]Dr. Abhinav Laguna LEUKOCYTES Negative Normal NEGATIVE [facility] Comment on above: Performed By: #### E RUR, DRUGRPD ####[facility] Raqngtauvh0709 [place] [address]Dr. Abhinav Laguna Nitrite Ql (U) Negative Normal NEGATIVE The [facility] Comment on above: Performed By: #### Lon RUDale DRUGRPD ####[facility] Qrqzqdswuo4[address] [place], [place] [address]Dr. Abhinav Laguna pH (U) 5.5 [pH] Normal 5-9 [facility] Comment on above: Performed By: #### Lon RUDale DRUGRPD ####[facility] Ayxdhnbzrz[address] [place], [place] [address]Dr. Abhinav Laguna SPEC GRAVITY 1.025 Normal 1.005-<=1. 025 [facility] Comment on above: Performed By: #### Lon BRODY DRUGRPD ####[facility] Ioycqbgtcu8[address] [place], [place] [address]Dr. Abhinav Laguna UA PROTEIN Negative Normal NEGATIVE/ TRACE The [facility] Comment on above: Performed By: #### Lon RUDale DRUGRPD ####[facility] Tglmnbqapa[address] [place], [place] [address]Dr. Abhinav Laguna UR MICRO IND NOT INDICATED Normal [facility] Comment on above: Performed By: #### Lon RUR, DRUGRPD ####[facility] Boxweeahlv17[address] [place], [place] [address]Dr. Abhinav Laguna Urobilinogen Qn (U) 0.2 {Marshall'U}/dL Normal 0.2 - 1. 0 [facility] Comment on above: Performed By: #### E RUR, DRUGRPD ####[facility] Xxtahmraal[address] [place], [place] [address]Dr. Abhinav Laguna LACTATE/LACTIC ACIDon 2022 Lactate [Moles/Vol] 3.0 mmol/L Critically high 0.4-2.0 [facility] Comment on above: Performed By: #### L ACT ####[facility] W[address]fjezkb[address] [place] [address]Dr. Abhinav Laguna LIPASEon 12-03-2022 Lipase [Catalytic activity/Vol] 83.0 U/L Normal 73.0-393.0 [facility] Comment on above: Performed By: #### B SIGN LANGUAGE TEACHER, CMP, LIPA, HSTROPN ####[facility] Jsbwkwgovq37[address] [place] [address]Dr. Abhinav Laguna PH VENOUS BLOODon 12-03-2022 PCO2 VENOUS 57.5 mmHg Critically high 40.0-52.0 [facility] Comment on above: Performed By: #### P HVEN ####[facility] Kxmedzxjzp06[address] [place] [address]Dr. Abhinav Laguna pH VENOUS 7.354 Normal 7.330-7.43 0 [facility] Comment on above: Performed By: #### P HVEN ####[facility] Axpocyuwed[address] [place] [address]Dr. Abhinav Laguna POINT OF CARE GLUCOSEon 11-15 Glucose [Mass/Vol] 304 mg/dL Critically high 74-106 [facility] Comment on above: Performed By: #### P OCGLUC ####[facility] Jlsixmgiif09[address] [place] [address]Dr. Abhinav Laguna POCGLUC >600 Critically high 74-106 [facility] Comment on above: Result Comment: Lab Draw Ordered Performed By: #### P OCGLUC ####[facility] Rhdtzujkyb[address] [place] [address]Dr. Abhinav Laguna PROF 14(COMP METB)on 023 Albumin [Mass/Vol] 2.7 g/dL Critically low 3.4-5.0 [facility] Comment on above: Performed By: #### B SIGN LANGUAGE TEACHER, CMP, LIPA, HSTROPN ####[facility] Hwuacofkre4[address] [place], [place] [address]Dr. Abhinav Laguna Albumin/Globulin [Mass ratio] 0.6 {ratio} Normal [facility] Comment on above: Performed By: #### B SIGN LANGUAGE TEACHER, CMP, LIPA, HSTROPN ####[facility] Vjnfffcijd82[address] [place] [address]Dr. Abhinav Laguna ALP [Catalytic activity/Vol] 456 U/L Critically high 46-116 [facility] Comment on above: Performed By: #### B SIGN LANGUAGE TEACHER, CMP, LIPA, HSTROPN ####[facility] Gfgdeimykf475[address] [place] [address]Dr. Abhinav Laguna ALT [Catalytic activity/Vol] 28 U/L Normal 16-63 [facility] Comment on above: Performed By: #### B SIGN LANGUAGE TEACHER, CMP, LIPA, HSTROPN ####[facility] Puwnbflzjd[address] [place] [address]Dr. Abhinav Laguna Anion gap [Moles/Vol] 7.7 mmol/L Normal [facility] Comment on above: Performed By: #### B SIGN LANGUAGE TEACHER, CMP, LIPA, HSTROPN ####[facility] Wpnrgybkke24[address] [place] [address]Dr. Abhinav Laguna AST [Catalytic activity/Vol] 9 U/L Critically low 15-37 [facility] Comment on above: Performed By: #### B SIGN LANGUAGE TEACHER, CMP, LIPA, HSTROPN ####[facility] Yztmctetdk38[address] [place] [address]Dr. Abhinav Laguna Bilirubin [Mass/Vol] 0.3 mg/dL Normal 0.2-1.0 [facility] Comment on above: Performed By: #### B SIGN LANGUAGE TEACHER, CMP, LIPA, HSTROPN ####[facility] Vmhigzodgl7306 [place] [address]Dr. Abhinav Laguna Calcium [Mass/Vol] 10.9 mg/dL Critically high 8.5-10.1 T [facility] Comment on above: Performed By: #### B SIGN LANGUAGE TEACHER, CMP, LIPA, HSTROPN ####[facility] Qrcctzglac6781 [place] [address]Dr. Abhinav Laguna Chloride [Moles/Vol] 96 mmol/L Critically low 98-107 [facility] Comment on above: Performed By: #### B SIGN LANGUAGE TEACHER, CMP, LIPA, HSTROPN ####[facility] Njhgysyylf8469 [place] [address]Dr. Abhinav Laguna CO2 [Moles/Vol] 32.1 mmol/L Critically high 21.0-32.0 [facility] Comment on above: Performed By: #### B SIGN LANGUAGE TEACHER, CMP, LIPA, HSTROPN ####[facility] Blnszrqjfb8595 [place] [address]Dr. Abhinav Laguna Creatinine [Mass/Vol] 1.19 mg/dL Normal 0.70-1.30 [facility] Comment on above: Performed By: #### B SIGN LANGUAGE TEACHER, CMP, LIPA, HSTROPN ####[facility] Cgphbmiqsq[address] [place], [place] [address]Dr. Abhinav Laguna EGFR-AF SALVADOREAN >60 Normal >=60 [facility] Comment on above: Performed By: #### B SIGN LANGUAGE TEACHER, CMP, LIPA, HSTROPN ####[facility] Qeyhhyrtrl98[address] [place], [place] [address]Dr. Abhinav Laguna EGFR-NON AF SALVADOREAN >60 Normal >=60 [facility] Comment on above: Performed By: #### B SIGN LANGUAGE TEACHER, CMP, LIPA, HSTROPN ####[facility] Oahbddtnbw9[address] [place], [place] [address]Dr. Abhinav Laguna Globulin (S) [Mass/Vol] 4.6 g/dL Normal [facility] Comment on above: Performed By: #### B SIGN LANGUAGE TEACHER, CMP, LIPA, HSTROPN ####[facility] Omzbkruist0134 [place] [address]Dr. Abhinav Laguna Glucose [Mass/Vol] 478 mg/dL Critically high 74-106 T [facility] Comment on above: Performed By: #### B SIGN LANGUAGE TEACHER, CMP, LIPA, HSTROPN ####[facility] Lzykjkslko118[address] [place], [place] [address]Dr. Abhinav Laguna Potassium [Moles/Vol] 4.8 mmol/L Normal 3.5-5.1 [facility] Comment on above: Performed By: #### B SIGN LANGUAGE TEACHER, CMP, LIPA, HSTROPN ####[facility] Mtggmyuupm6430 [place] [address]Dr. Abhinav Laguna Protein [Mass/Vol] 7.3 g/dL Normal 6.4-8.2 [facility] Comment on above: Performed By: #### B SIGN LANGUAGE TEACHER, CMP, LIPA, HSTROPN ####[facility] Pqmgxlkhzr6513 [place] [address]Dr. Abhinav Laguna Sodium [Moles/Vol] 131 mmol/L Critically low 136-145 [facility] Comment on above: Performed By: #### B SIGN LANGUAGE TEACHER, CMP, LIPA, HSTROPN ####[facility] Ddimytbzun3214 [place] [address]Dr. Abhinav Laguna Urea nitrogen [Mass/Vol] 35.0 mg/dL Critically high 7.0-18.0 [facility] Comment on above: Performed By: #### B SIGN LANGUAGE TEACHER, CMP, LIPA, HSTROPN ####[facility] Gspzghyrpx[address] [place], [place] [address]Dr. Abhinav Laguna Urea nitrogen/Creatinine [Mass ratio] 29.4 mg/mg Normal [facility] Comment on above: Performed By: #### B SIGN LANGUAGE TEACHER, CMP, LIPA, HSTROPN ####[facility] Mcjodezgeg[address] [place] [address]Dr. Abhinav Jase TROPONIN, HIGH SENSITIVITYon 12-03-2022 HSTROP 8.5 pg/mL Normal 4.0-76.1 [facility] Comment on above: Result Comment: CUT- OFF POINTS HAVE BEEN ESTABLISHED BASED ON THE FOURTH UNIVERSAL DEFINITIONS OF MYOCARDIALINFARCTION. THE UPPER REFERENCE LIMIT (URL) OF TROPONIN, DEFINED THE 99TH PERCENTILE OFcTnI DISTRIBUTION IN A REFERENCE POPULATION, HAS BEEN CONFIRMED THE DECISION THRESHOLDFOR IA DIAGNOSIS. Performed By: #### B SIGN LANGUAGE TEACHER, CMP, LIPA, HSTROPN ####[facility] Mqnwozmckf[address] [place], [place] [address]Dr. Abhinav Laguna XR CHEST 1 Von 12-03-2022 XR CHEST 1 V Normal [facility] CARDIAC GILMER ADMITon 023 CK [Catalytic activity/Vol] 46 U/L Normal 39-308 [facility] Comment on above: Performed By: #### B DAVID, TAD ####[facility] Vpxteakwpe8342 [place] [id number]. Abhinav Laguna CK.MB [Mass/Vol] 2.60 ng/mL Normal <=3.60 [facility] Comment on above: Performed By: #### B DAVID, TAD ####[facility] Stxsyztqgr8553 [place] [address]Dr. Abhinav Laguna HSTROP 9.8 pg/mL Normal 4.0-76.1 [facility] Comment on above: Result Comment: CUT- OFF POINTS HAVE BEEN ESTABLISHED BASED ON THE FOURTH UNIVERSAL DEFINITIONS OF MYOCARDIALINFARCTION. THE UPPER REFERENCE LIMIT (URL) OF TROPONIN, DEFINED THE 99TH PERCENTILE OFcTnI DISTRIBUTION IN A REFERENCE POPULATION, HAS BEEN CONFIRMED THE DECISION THRESHOLDFOR [place] DIAGNOSIS. Performed By: #### B DAVID, TAD ####[facility] Jhqrwzcdwd9[address] [place], [place] [address]Dr. Abhinav Laguna RAINER 43 ng/mL Normal 16-96 [facility] Comment on above: Performed By: #### B DAVID, TAD ####[facility] Bcnipafdxm[address]25[address] [place], [place] [address]Dr. Abhinav Laguna CBC AUTO DIFFon 11-27-2022 BASO # 0.1 103/ul Normal 0.0-0.1 [facility] Comment on above: Performed By: #### C BC ####[facility] Zerkmwjixz49[address] [place] [address]Dr. Abhinav Laguna Basophils/100 WBC (Bld) 0.4 % Normal 0.2-2.0 [facility] Comment on above: Performed By: #### C BC ####[facility] Scgbkpofsl9887 [place] [address]Dr. Abhinav Laguna EO # 0.1 103/ul Normal 0.0-0.7 [facility] Comment on above: Performed By: #### C BC ####[facility] Bpspisrtur5037 [place] [address]Dr. Abhinav Laguna Eosinophils/100 WBC (Bld) 0.6 % Critically low 0.9-7.0 [facility] Comment on above: Performed By: #### C BC ####[facility] Ksjbicixir9640 [place] [address]Dr. Abhinav Laguna Erythrocyte distribution width (RBC) [Ratio] 13.2 % Normal 11.0-15.0 [facility] Comment on above: Performed By: #### C BC ####[facility] Dgyjloyaoz6[address] [place], [place] [address]Dr. Abhinav Laguna Hematocrit (Bld) [Volume fraction] 42.4 % Normal 42.0-54.0 [facility] Comment on above: Performed By: #### C BC ####[facility] Swjtgenpqa[address] [place], [place] [address]Dr. Abhinav Laguna Hemoglobin (Bld) [Mass/Vol] 14.5 g/dL Normal 14.0-18.0 [facility] Comment on above: Performed By: #### C BC ####[facility] Tkqwfioprr[address] [place], [place] [address]Dr. Abhinav Laguna IG # 0.07 10e3/ul Critically high 0.00-0.03 [facility] Comment on above: Performed By: #### C BC ####[facility] Hrtgoxniei7[address] [place], [place] [address]Dr. Abhinav Laguna IG % 0.4 % Normal 0.0-0.5 [facility] Comment on above: Performed By: #### C BC ####[facility] Zvqccgebfj[address] [place], [place] [address]Dr. Abhinav Laguna LYMPH # 2.3 103/ul Normal 1.2-3.8 [facility] Comment on above: Performed By: #### C BC ####[facility] Akolllxvoj2[address] [place], [place] [address]Dr. Abhinav Laguna Lymphocytes/100 WBC (Bld) 13.2 % Critically low 20.5-60.0 [facility] Comment on above: Performed By: #### C BC ####[facility] Luwzaajqex[address] [place] [id number]. Abhinav Laguna MANUAL DIFF REQ NO Normal [facility] Comment on above: Performed By: #### C BC ####[facility] Njtyzjomgf2849 [place] [id number]. Abhinav Laguna MCH (RBC) [Entitic mass] 31.0 pg Normal 25.9-34.0 [facility] Comment on above: Performed By: #### C BC ####[facility] Mhkbjodxav5814 [place] [id number]. Abhinav Laguna MCHC (RBC) [Mass/Vol] 34.2 g/dL Normal 29.9-35.2 [facility] Comment on above: Performed By: #### C BC ####[facility] Rfjjbhqqdm2147 [place] [address]Dr. Abhinav Laguna MCV (RBC) [Entitic vol] 90.6 fL Normal 80.0-94.0 [facility] Comment on above: Performed By: #### C BC ####[facility] Emfdpxzdep[address] [place], [place] [address]Dr. Abhinav Laguna MONO # 1.3 103/ul Critically high 0.3-0.8 [facility] Comment on above: Performed By: #### C BC ####[facility] Lmeliwefdq6[address] [place], [place] [address]Dr. Abhinav Laguna Monocytes/100 WBC (Bld) 7.5 % Normal 1.7-12.0 [facility] Comment on above: Performed By: #### C BC ####[facility] Ltvjvjtmyw0746 [place] [id number]. Abhinav Laguna NEUT # 13.3 103/ul Critically high 1.4-6.5 [facility] Comment on above: Performed By: #### C BC ####[facility] Evziesihdn7166 [place] [address]Dr. Abhinav Laguna Neutrophils/100 WBC (Bld) 77.9 % Critically high 43.0-75.0 [facility] Comment on above: Performed By: #### C BC ####[facility] Yertcmirjs2553 [place] [id number] Laguna Platelet mean volume (Bld) [Entitic vol] 9.7 fL Normal 9.5-13.5 [facility] Comment on above: Performed By: #### C BC ####[facility] Tlpifmnfzs7[address] [place] [address]Dr. Abhinav Laguna PLT 499 103/ul Critically high 150-450 [facility] Comment on above: Performed By: #### C BC ####[facility] Gxqmdsnjdb9665 [place] [address]Dr. Abhinav Laguna RBC 4.68 106/ul Critically low 4.70-6.10 [facility] Comment on above: Performed By: #### C BC ####[facility] Pslnfjpmbb3434 [place] [address]DrNohemi Laguna WBC 17.1 103/ul Critically high 4.0-11.0 [facility] Comment on above: Performed By: #### C BC ####[facility] Bjjiuiizpl8717 [place] [id number]. Abhinav Laguna POINT OF CARE GLUCOSEon 11-15 Glucose [Mass/Vol] 470 mg/dL Critically high 74-106 [facility] Comment on above: Performed By: #### P OCGLUC ####[facility] Pvyddjennm32[address] [place] [address]DrNohemi Laguna PROF CHEM 8 (BAS METB)on Anion gap [Moles/Vol] 7.5 mmol/L Normal [facility] Comment on above: Performed By: #### B DAVID CMADM ####[facility] Pgehqvgboa[address] [place] [address]Dr. Abhinav Laguna Calcium [Mass/Vol] 10.8 mg/dL Critically high 8.5-10.1 [facility] Comment on above: Performed By: #### B DAVID CMADM ####[facility] Zitnrgpbpw6459 [place] [address]DrNohemi Laguna Chloride [Moles/Vol] 102 mmol/L Normal 98-107 [facility] Comment on above: Performed By: #### B TAD HERNANDEZ ####[facility] Xxyyctstbv6122 [place] [address]Dr. Abhinav Laguna CO2 [Moles/Vol] 31.2 mmol/L Normal 21.0-32.0 [facility] Comment on above: Performed By: #### TAD Corley MP ####[facility] Fvfqwtiggc57[address] [place] [address]Dr. Abhinav Laguna Creatinine [Mass/Vol] 0.86 mg/dL Normal 0.70-1.30 [facility] Comment on above: Performed By: #### TAD Corley MP ####[facility] Psmjneekzi87[address] [place] [address]Dr. Abhinav Laguna EGFR-AF SALVADOREAN >60 Normal >=60 The [facility] Comment on above: Performed By: #### TAD Corley MP ####[facility] [address]cgewdop[address] [place] [address]Dr. Abhinav Laguna EGFR-NON AF SALVADOREAN >60 Normal >=60 [facility] Comment on above: Performed By: #### TAD Corley MP ####[facility] Taduwgxoo[address] [place], [place] [address]Dr. Abhinav Laguna Glucose [Mass/Vol] 513 mg/dL Critically high 74-106 [facility] Comment on above: Performed By: #### TAD Corley MP ####[facility] Jxoenxhyzc[address] [place] [address]Dr. Abhinav Laguna Potassium [Moles/Vol] 4.7 mmol/L Normal 3.5-5.1 [facility] Comment on above: Performed By: #### TAD Corley MP ####[facility] Gnheebrsnx[address] [place], [place] [address]Dr. Abhinav Laguna Sodium [Moles/Vol] 136 mmol/L Normal 136-145 [facility] Comment on above: Performed By: #### TAD Corley MP ####[facility] Vboggowmvy[address] [place] [address]Dr. Abhinav Laguna Urea nitrogen [Mass/Vol] 30.0 mg/dL Critically high 7.0-18.0 [facility] Comment on above: Performed By: #### B TAD HERNANDEZ ####[facility] [address]ch[address] [place] [address]Dr. Abhinav Jase Urea nitrogen/Creatinine [Mass ratio] 34.9 mg/mg Normal [facility] Comment on above: Performed By: #### B TAD HERNANDEZ ####[facility] Cqphojhoyo[address] [place] [address]Dr. Abhinav Jase XR CHEST 2 Von 11-27-2022 XR CHEST 2 V Normal [facility] CBC AUTO DIFFon 11-26-2022 BASO # 0.0 103/ul Normal 0.0-0.1 [facility] Comment on above: Performed By: #### C BC ####[facility] Siclyheqmh[address] [place], [place] [address]Dr. Mirandagallo Laguna Basophils/100 WBC (Bld) 0.2 % Normal 0.2-2.0 [facility] Comment on above: Performed By: #### C BC ####[facility] Mijkppchtd[address] [place], [place] [address]Dr. Abhinav Jase EO # 0.0 103/ul Normal 0.0-0.7 [facility] Comment on above: Performed By: #### C BC ####[facility] Ngscxhbrdx[address] [place], [place] [address]Dr. Abhinav Jase Eosinophils/100 WBC (Bld) 0.0 % Critically low 0.9-7.0 [facility] Comment on above: Performed By: #### C BC ####[facility] Dpoiahlhyo[address] [place], [place] [address]Dr. Abhinav Jase Erythrocyte distribution width (RBC) [Ratio] 13.0 % Normal 11.0-15.0 [facility] Comment on above: Performed By: #### C BC ####[facility] Dgfnyidbie13[address] [place], [place] [address]Dr. Abhinav Jase Hematocrit (Bld) [Volume fraction] 39.9 % Critically low 42.0-54.0 [facility] Comment on above: Performed By: #### C BC ####[facility] Xywrjsrqqj[address] [place] [address]Dr. Mirandagallo Jase Hemoglobin (Bld) [Mass/Vol] 14.0 g/dL Normal 14.0-18.0 [facility] Comment on above: Performed By: #### C BC ####[facility] Zxdoxjmmqe[address] [place] [address]DrNohemi Laguna IG # 0.08 10e3/ul Critically high 0.00-0.03 [facility] Comment on above: Performed By: #### C BC ####[facility] Wejdghhrjx[address] [place] [address]Dr. Abhinav Laguna IG % 0.4 % Normal 0.0-0.5 [facility] Comment on above: Performed By: #### C BC ####[facility] Kysunfgbck[address] [place] [address]Dr. Abhinav Laguna LYMPH # 2.3 103/ul Normal 1.2-3.8 [facility] Comment on above: Performed By: #### C BC ####[facility] Xxoulaqtsl[address] [place] [address]Dr. Abhinav Laguna Lymphocytes/100 WBC (Bld) 12.2 % Critically low 20.5-60.0 [facility] Comment on above: Performed By: #### C BC ####[facility] Mqcxszhyki[address] [place] [address]Dr. Abhinav Laguna MANUAL DIFF REQ NO Normal [facility] Comment on above: Performed By: #### C BC ####[facility] Pwvxbdxrqr55[address] [place] [address]Dr. Abhinav Laguna MCH (RBC) [Entitic mass] 31.4 pg Normal 25.9-34.0 [facility] Comment on above: Performed By: #### C BC ####[facility] Mjzidqkfjq15[address] [place] [address]Dr. Abhinav Laguna MCHC (RBC) [Mass/Vol] 35.1 g/dL Normal 29.9-35.2 [facility] Comment on above: Performed By: #### C BC ####[facility] Cwjyvtvhkh[address] [place] [id number] Abhinav Jase MCV (RBC) [Entitic vol] 89.5 fL Normal 80.0-94.0 [facility] Comment on above: Performed By: #### C BC ####[facility] Yhaqxrrofw17[address] [place] [address]11DrNohemi Laguna MONO # 1.2 103/ul Critically high 0.3-0.8 [facility] Comment on above: Performed By: #### C BC ####[facility] Jxokzznwrd24[address] [place] [address]DrNohemi Laguna Monocytes/100 WBC (Bld) 6.2 % Normal 1.7-12.0 [facility] Comment on above: Performed By: #### C BC ####[facility] Keqirqsfdg[address] [place], [place] [address]Dr. Abhinav Laguna NEUT # 15.1 103/ul Critically high 1.4-6.5 [facility] Comment on above: Performed By: #### C BC ####[facility] Hcavegpcpw6[address] [place], [place] [address]Dr. Abhinav Laguna Neutrophils/100 WBC (Bld) 81.0 % Critically high 43.0-75.0 [facility] Comment on above: Performed By: #### C BC ####[facility] Yhcsjrosfy7[address] [place], [place] [address]Dr. Abhinav Laguna Platelet mean volume (Bld) [Entitic vol] 9.5 fL Normal 9.5-13.5 [facility] Comment on above: Performed By: #### C BC ####[facility] Xckkrjemqv79[address] [place] [address]Dr. Abhinav Laguna PLT 514 103/ul Critically high 150-450 [facility] Comment on above: Performed By: #### C BC ####[facility] Wlxsakbkop8[address] [place] [address]11DrNohemi Laguna RBC 4.46 106/ul Critically low 4.70-6.10 [facility] Comment on above: Performed By: #### C BC ####[facility] Pxbxkhqgvg5[address] [place] [address]Dr. Abhinav Laguna WBC 18.7 103/ul Critically high 4.0-11.0 [facility] Comment on above: Performed By: #### C BC ####[facility] Ebxtglclmx7[address] [place] [address]Dr. Abhinav Laguna PROF CHEM 8 (BAS METB)on Anion gap [Moles/Vol] 10.9 mmol/L Normal [facility] Comment on above: Performed By: #### B MP ####[facility] Kajoosdhvp7[address] [place], [place] [address]Dr. Abhinav Laguna Calcium [Mass/Vol] 10.6 mg/dL Critically high 8.5-10.1 [facility] Comment on above: Performed By: #### B MP ####[facility] Brdbyldtlm[address] [place], [place] [address]Dr. Abhinav Laguna Chloride [Moles/Vol] 103 mmol/L Normal 98-107 [facility] Comment on above: Performed By: #### B MP ####[facility] Haguyehakj3[address] [place], [place] [address]Dr. Abhinav Laguna CO2 [Moles/Vol] 28.8 mmol/L Normal 21.0-32.0 [facility] Comment on above: Performed By: #### B MP ####[facility] Iqjsffioxn[address] [place], [place] [address]DrNohemi Laguna Creatinine [Mass/Vol] 0.90 mg/dL Normal 0.70-1.30 [facility] Comment on above: Performed By: #### B MP ####[facility] Wrljrhufwf[address] [place], [place] [address]DrNohemi Laguna EGFR-AF SALVADOREAN >60 Normal >=60 [facility] Comment on above: Performed By: #### B MP ####[facility] Cezbtlixyf[address] [place], [place] [address]Dr. Abhinav Laguna EGFR-NON AF SALVADOREAN >60 Normal >=60 [facility] Comment on above: Performed By: #### B MP ####[facility] K[address]qovapoa[address] [place] [address]Dr. Abhinav Laguna Glucose [Mass/Vol] 296 mg/dL Critically high 74-106 [facility] Comment on above: Performed By: #### B MP ####[facility] Iahmxfqdxw6[address] [place] [address]Dr. Abhinav Laguna Potassium [Moles/Vol] 4.7 mmol/L Normal 3.5-5.1 [facility] Comment on above: Performed By: #### B MP ####[facility] Odjdrllarz69[address] [place] [address]Dr. Abhinav Laguna Sodium [Moles/Vol] 138 mmol/L Normal 136-145 [facility] Comment on above: Performed By: #### B MP ####[facility] Erakeksain[address] [place] [address]Dr. Abhinav Laguna Urea nitrogen [Mass/Vol] 32.0 mg/dL Critically high 7.0-18.0 [facility] Comment on above: Performed By: #### B MP ####[facility] Uwuwlwweml[address] [place] [address]Dr. Abhinav Laguna Urea nitrogen/Creatinine [Mass ratio] 35.6 mg/mg Normal [facility] Comment on above: Performed By: #### B MP ####[facility] Iftkcmstue[address] [place] [address]Dr. Abhinav Laguna BLOOD GASES BTYon 11-25-2022 02 MODE NASAL CANNULA Normal [facility] Comment on above: Performed By: #### A BG ####[facility] Hnberhycym[address] [place] [address]Dr. Abhinav Laguna ALLENS TEST Positive Normal [facility] Comment on above: Performed By: #### A BG ####[facility] Fcjpxpakqi34[address] [place] [address]Dr. Abhinav Laguna Base excess Calc (Bld) [Moles/Vol] 4.5 mmol/L Critically high -2.0-2.0 [facility] Comment on above: Performed By: #### A BG ####[facility] Stggckkmdf[address] [place] [address]Dr. Abhinav Laguna BIPAP PRESSURE Normal The [facility] Comment on above: Performed By: #### A BG ####[facility] Hnsowdhngl8[address] [place] [address]Dr. Abhinav Laguna CPAP Normal [facility] Comment on above: Performed By: #### A BG ####[facility] Wgkrczfztg[address] [place], [place] [address]Dr. Abhinav Laguna FIO2 Normal [facility] Comment on above: Performed By: #### A BG ####[facility] Krobkncbpm14[address] [place], [place] [address]Dr. Abhinav Laguna HCO3 (Bld) [Moles/Vol] 28.7 mmol/L Critically high 22.0-26 .0 [facility] Comment on above: Performed By: #### A BG ####[facility] Orjywygpwl[address] [place], [place] [address]Dr. Abhinav Laguna LPM 4 Normal [facility] Comment on above: Performed By: #### A BG ####[facility] Wkzmikbuzn[address] [place], [place] [address]Dr. Abhinav Laguna MINUTE VOLUME Normal [facility] Comment on above: Performed By: #### A BG ####[facility] Lwzdyrbtew8[address] [place], [place] [address]Dr. Abhinav Laguna Oxygen (Bld) [Partial pressure] 82.3 mm[Hg] Normal 80.0-100.0 [facility] Comment on above: Performed By: #### A BG ####[facility] Chjieakkyz7[address] [place], [place] [address]Dr. Abhinav Laguna Oxygen saturation in Blood 97.3 % Normal 95.0-100.0 [facility] Comment on above: Performed By: #### A BG ####[facility] Huqodvgwhb6[address] [place], [place] [address]Dr. Abhinav Laguna PCO2 43.1 mmHg Normal 35.0-45.0 [facility] Comment on above: Performed By: #### A BG ####[facility] Toonzbaejq[address] [place] [address]Dr. Abhinav Laguna PEEP [facility] Comment on above: Performed By: #### A BG ####[facility] Nwhqdstmps14[address] [place] [address]Dr. Abhinav Laguna pH (Bld) 7.432 [pH] Normal 7.350-7.45 0 [facility] Comment on above: Performed By: #### A BG ####[facility] Lwxhosuhbl9[address] [place] [address]Dr. Abhinav Laguna PIP [facility] Comment on above: Performed By: #### A BG ####[facility] Ujekyhgbok8[address] [place], [place] [address]Dr. Abhinav Laguna PS [facility] Comment on above: Performed By: #### A BG ####[facility] Rcifwmrjoe9[address] [place], [place] [address]Dr. Abhinav Laguna PUNCTURE SITE RR [place] [facility] Comment on above: Performed By: #### A BG ####[facility] Gajdhxljrd6[address] [place], [place] [address]Dr. Abhinav Laguna RATE [facility] Comment on above: Performed By: #### A BG ####[facility] Tfpbrzweop48[address] [place], [place] [address]Dr. Abhinav Laguna VENT MODE [facility] Comment on above: Performed By: #### A BG ####[facility] Vzykemygek69[address] [place], [place] [address]Dr. Abhinav Laguna VT [facility] Comment on above: Performed By: #### A BG ####[facility] Uspulerapz5216[address] [place], [place] [address]Dr. Abhinav Laguna BNPon 11-25-2022 Natriuretic peptide B (Bld) [Mass/Vol] 279.0 pg/mL Normal <=900.0 [facility] Comment on above: Performed By: #### H STROPN, BNP, BMP ####[facility] Gbovyveiwg[address] [place], [place] [address]Dr. Abhinav Laguna CBC AUTO DIFFon 11-25-2022 BASO # 0.1 103/ul Normal 0.0-0.1 [facility] Comment on above: Performed By: #### C BC ####[facility] Llyxlglxpe[address] [place] [address]Dr. Abhinav Laguna Basophils/100 WBC (Bld) 0.3 % Normal 0.2-2.0 [facility] Comment on above: Performed By: #### C BC ####[facility] Fjfizhxrkt9[address] [place] [address]Dr. Abhinav Jase EO # 0.1 103/ul Normal 0.0-0.7 [facility] Comment on above: Performed By: #### C BC ####[facility] Qdltyciuli8622[address] [place], [place] [address]Dr. Abhinav Laguna Eosinophils/100 WBC (Bld) 0.3 % Critically low 0.9-7.0 [facility] Comment on above: Performed By: #### C BC ####[facility] Bczeshbeac34[address] [place], [place] [address]Dr. Abhinav Laguna Erythrocyte distribution width (RBC) [Ratio] 12.9 % Normal 11.0-15.0 [facility] Comment on above: Performed By: #### C BC ####[facility] Eggowxmtkp[address]14[address] [place], [place] [address]Dr. Abhinav Laguna Hematocrit (Bld) [Volume fraction] 39.1 % Critically low 42.0-54.0 [facility] Comment on above: Performed By: #### C BC ####[facility] Bbcerolqsl024[address] [place], [place] [address]Dr. Abhinav Laguna Hemoglobin (Bld) [Mass/Vol] 14.0 g/dL Normal 14.0-18.0 [facility] Comment on above: Performed By: #### C BC ####[facility] Sisjktbvqf[address] [place], [place] [address]Dr. Abhinav Laguna IG # 0.12 10e3/ul Critically high 0.00-0.03 [facility] Comment on above: Performed By: #### C BC ####[facility] Jdysuycfqr6804 [place] [address]Dr. Abhinav Jase IG % 0.5 % Normal 0.0-0.5 [facility] Comment on above: Performed By: #### C BC ####[facility] Jleowhztrv9196 [place] [address]Dr. Abhinav Jase LYMPH # 2.2 103/ul Normal 1.2-3.8 [facility] Comment on above: Performed By: #### C BC ####[facility] Irtuvuekfz5239 [place] [address]Dr. Abhinav Jase Lymphocytes/100 WBC (Bld) 9.5 % Critically low 20.5-60.0 [facility] Comment on above: Performed By: #### C BC ####[facility] Bjfmrqtseh5808 [place] [address]Dr. Mirandagallo Laguna MANUAL DIFF REQ NO Normal [facility] Comment on above: Performed By: #### C BC ####[facility] Pyftpczukh8844 [place] [address]Dr. Abhinav Jase MCH (RBC) [Entitic mass] 31.5 pg Normal 25.9-34.0 [facility] Comment on above: Performed By: #### C BC ####[facility] Xdrirrcgdk4758 [place] [address]Dr. Abhinav Laguna MCHC (RBC) [Mass/Vol] 35.8 g/dL Critically high 29.9-35.2 [facility] Comment on above: Performed By: #### C BC ####[facility] Tekonfbcqp07[address] [place] [address]Dr. Abhinav Jase MCV (RBC) [Entitic vol] 87.9 fL Normal 80.0-94.0 [facility] Comment on above: Performed By: #### C BC ####[facility] Hnndbiccsf5342 [place] [address]Dr. Abhinav Laguna MONO # 1.3 103/ul Critically high 0.3-0.8 [facility] Comment on above: Performed By: #### C BC ####[facility] Jkoaecxrec1551 [place] [address]Dr. Abhinav Laguna Monocytes/100 WBC (Bld) 5.6 % Normal 1.7-12.0 [facility] Comment on above: Performed By: #### C BC ####[facility] Qfzvvrepkt5242 [place] [address]Dr. Abhinav Laguna NEUT # 19.6 103/ul Critically high 1.4-6.5 [facility] Comment on above: Performed By: #### C BC ####[facility] Zlsahbedku5394 [place] [address]Dr. Abhinav Laguna Neutrophils/100 WBC (Bld) 83.8 % Critically high 43.0-75.0 [facility] Comment on above: Performed By: #### C BC ####[facility] Udradkstiw0997 [place] [address]Dr. Abhinav Laguna Platelet mean volume (Bld) [Entitic vol] 10.1 fL Normal 9.5-13.5 [facility] Comment on above: Performed By: #### C BC ####[facility] Uouimzwgci0906 [place] [address]Dr. Abhinav Laguna PLT 467 103/ul Critically high 150-450 [facility] Comment on above: Performed By: #### C BC ####[facility] Pfwabliiav3911 [place] [address]Dr. Abhinav Laguna RBC 4.45 106/ul Critically low 4.70-6.10 [facility] Comment on above: Performed By: #### C BC ####[facility] Ixwtsvtmjc5553 [place] [address]Dr. Abhinav Laguna WBC 23.4 103/ul Critically high 4.0-11.0 [facility] Comment on above: Performed By: #### C BC ####[facility] Mkhoytqwwb9392 [place] [address]Dr. Abhinav Laguna CULTURE BLOODon 11-25-2022 Microscopic examination of blood, culture Culture Observations: NO GROWTH AT 5 DAYS. Normal [facility] Comment on above: Performed By: #### B LDCX2 ####[facility] Yhkcfnfcsh3290 [place] [id number]. Abhinav Laguna Microscopic examination of blood, culture Culture Observations: NO GROWTH AT 5 DAYS. Normal [facility] Comment on above: Performed By: #### B LDCX1 ####[facility] Poevalctgt7278 [place] [address]Dr. Abhinav Laguna Covid-19 PCR (CVDTB)on 11-15 SARS-CoV-2 (COVID-19) RNA EVERT+probe Ql (Unsp spec) Not detected Normal NOT DETECTED [facility] Comment on above: Result Comment: When diagnostic [...] for this test is supported by the [place] [employer] of Health and Human Service's declaration that [...] be used). Performed By: #### C VDTBH ####[facility] Riynuqisch0173 [place] [phone]. Abhinav Laguna DRUG SCREEN RAPID (URINE)on 11-25-2022 AMP Negative Normal NEGATIVE [facility] Comment on above: Performed By: #### D RUGRPD ####[facility] Tuivcakspg5265 [place] [address]Dr. Abhinav Laguna BAR Positive Abnormal NEGATIVE [facility] Comment on above: Performed By: #### D RUGRPD ####[facility] Auommnrdyu2205 [place] [address]Dr. Abhinav Laguna BUP Negative Normal NEGATIVE [facility] Comment on above: Performed By: #### D RUGRPD ####[facility] Eptgbswgpz0521 [place] [address]Dr. Abhinav Laguna BZO Negative Normal NEGATIVE [facility] Comment on above: Performed By: #### D RUGRPD ####[facility] Yfiwltseib1901 [place] [address]Dr. Abhinav Laguna ISELA Negative Normal NEGATIVE [facility] Comment on above: Performed By: #### D RUGRPD ####[facility] Fcqdeyzluc[address] [place], [place] [address]Dr. Abhinav Laguna CUT-OFFS SEE BELOW Normal [facility] Comment on above: Result Comment: AMP (Amphetamine): 500ng/mL, BAR (Barbituates): 200 ng/mL, BZO (Benzodiazepines): 150 ng/mL, BUP (Buprenorphine): 10 ng/mL, ISELA (Cocaine): 150 ng/mL, mAMP (Methamphetamine): 500 ng/mL, MTD (Methadone): 200 ng/mL, OPI (Opiates): 100 ng/mL, OXY (Oxycodone): 100 ng/mL, PCP (Phencyclidine): 25 ng/mL, PPX (Propoxyphene): 300 ng/mL, THC (Cannabinoids): 50 ng/mL, TCA (Trycyclic Antidepressants): 300 ng/mL Performed By: #### D RUGRPD ####[facility] Wgkgfqpujd[address] [place], [place] [address]Dr. Abhinav Laguna DRUG CUT HEADER DRUG CLASS TEST SYST EM CUT-OFF CONCENTRATIONS ARE FOLLOWS: Normal [facility] Comment on above: Performed By: #### D RUGRPD ####[facility] Yyeypwgfub[address] [place], [place] [address]Dr. Abhinav Laguna mAMP Negative Normal NEGATIVE [facility] Comment on above: Performed By: #### D RUGRPD ####[facility] Pbdaqpxgfj[address] [place], [place] [address]Dr. Abhinav Laguna MTD Negative Normal NEGATIVE [facility] Comment on above: Performed By: #### D RUGRPD ####[facility] Suaecbjauo[address] [place], [place] [address]Dr. Abhinav Laguna OPI Negative Normal NEGATIVE [facility] Comment on above: Performed By: #### D RUGRPD ####[facility] Yobzugwqla[address] [place] [address]Dr. Abhinav Laguna OXY Negative Normal NEGATIVE [facility] Comment on above: Performed By: #### D RUGRPD ####[facility] Wowktppmxi9337 [place] [address]Dr. Abhinav Laguna PCP Negative Normal NEGATIVE [facility] Comment on above: Performed By: #### D RUGRPD ####[facility] Mypoktiyom644[address] [place], [place] [address]Dr. Abhinav Laguna PPX Negative Normal NEGATIVE [facility] Comment on above: Performed By: #### D RUGRPD ####[facility] Oapgxeidti54[address] [place], [place] [address]Dr. Abhinav Laguna TCA Negative Normal NEGATIVE [facility] Comment on above: Performed By: #### D RUGRPD ####[facility] Hnelzdouss[address] [place], [place] [address]Dr. Abhinav Laguna THC Positive Abnormal NEGATIVE [facility] Comment on above: Performed By: #### D RUGRPD ####[facility] Pebzlyqamh[address] [place], [place] [address]Dr. Abhinav Laguna ETHANOL (BLD ALC)on 11-26-19 23 ALC NOTE NOTE: 80 mg/dl is th e legal limit for a blood alcohol level Normal [facility] Comment on above: Performed By: #### E TH ####[facility] Qhdelphjta[address] [place], [place] [address]Dr. Abhinav Laguna Ethanol [Mass/Vol] mg/dL Normal [facility] Comment on above: Performed By: #### E TH ####[facility] Jebhgfjaju[address] [place], [place] [address]Dr. Abhinav Laguna LACTATE/LACTIC ACIDon 2022 Lactate [Moles/Vol] 1.5 mmol/L Normal 0.4-2.0 [facility] Comment on above: Performed By: #### L ACT ####[facility] Rhmsfesgmp[address] [place] [address]Dr. Mirandagallo Jase POINT OF CARE GLUCOSEon 11-15 Glucose [Mass/Vol] 457 mg/dL Critically high 74-106 [facility] Comment on above: Performed By: #### P OCGLUC ####[facility] Uqhfqplkld[address] [place] [address]Dr. Abhinav Laguna PROF CHEM 8 (BAS METB)on Anion gap [Moles/Vol] 11.9 mmol/L Normal [facility] Comment on above: Performed By: #### H STROPN, BNP, BMP ####[facility] Ymyqacxboq[address] [place] [address]Dr. Abhinav Laguna Calcium [Mass/Vol] 10.2 mg/dL Critically high 8.5-10.1 [facility] [facility] Comment on above: Performed By: #### H STROPN, BNP, BMP ####[facility] [address] [place] [address]Dr. Abhinav Laguna Chloride [Moles/Vol] 96 mmol/L Critically low 98-107 [facility] Comment on above: Performed By: #### H STROPN, BNP, BMP ####[facility] Typacqwpqt[address] [place], [place] [address]Dr. Abhinav Laguna CO2 [Moles/Vol] 28.7 mmol/L Normal 21.0-32.0 [facility] Comment on above: Performed By: #### H STROPN, BNP, BMP ####[facility] O[address] [place] [address]Dr. Mirandagallo Jase Creatinine [Mass/Vol] 0.83 mg/dL Normal 0.70-1.30 [facility] Comment on above: Performed By: #### H STROPN, BNP, BMP ####[facility] Jfutoigokg[address] [place], [place] [address]Dr. Abhinav Laguna EGFR-AF SALVADOREAN >60 Normal >=60 [facility] Comment on above: Performed By: #### H STROPN, BNP, BMP ####[facility] [address] [place] [address]Dr. Abhinav Laguna EGFR-NON AF SALVADOREAN >60 Normal >=60 [facility] Comment on above: Performed By: #### H STROPN, BNP, BMP ####[facility] Ctx[address]kkro[address] [place] [address]Dr. Abhinav Laguna Glucose [Mass/Vol] 470 mg/dL Critically high 74-106 T [facility] Comment on above: Performed By: #### H STROPN, BNP, BMP ####[facility] Ysldumzpjh[address] [place] [address]Dr. Abhinav Laguna Potassium [Moles/Vol] 4.6 mmol/L Normal 3.5-5.1 [facility] Comment on above: Performed By: #### H STROPN, BNP, BMP ####[facility] Llkivksswo[address] [place] [address]Dr. Abhinav Laguna Sodium [Moles/Vol] 132 mmol/L Critically low 136-145 Th [facility] Comment on above: Performed By: #### H STROPN, BNP, BMP ####[facility] Ndokapxubz[address] [place] [address]Dr. Abhinav Laguna Urea nitrogen [Mass/Vol] 18.0 mg/dL Normal 7.0-18.0 [facility] Comment on above: Performed By: #### H STROPN, BNP, BMP ####[facility] Kn[address]ynsyeu[address] [place] [address]Dr. Abhinav Laguna Urea nitrogen/Creatinine [Mass ratio] 21.7 mg/mg Normal [facility] Comment on above: Performed By: #### H STROPN, BNP, BMP ####[facility] Uczzasylus[address] [place] [address]Dr. Abhinav Laguna TROPONIN, HIGH SENSITIVITYon 11-25-2022 HSTROP 10.1 pg/mL Normal 4.0-76.1 [facility] Comment on above: Result Comment: CUT- OFF POINTS HAVE BEEN ESTABLISHED BASED ON THE FOURTH UNIVERSAL DEFINITIONS OF MYOCARDIALINFARCTION. THE UPPER REFERENCE LIMIT (URL) OF TROPONIN, DEFINED THE 99TH PERCENTILE OFcTnI DISTRIBUTION IN A REFERENCE POPULATION, HAS BEEN CONFIRMED THE DECISION THRESHOLDFOR IA DIAGNOSIS. Performed By: #### H STROPN, BNP, BMP ####[facility] Dttkfuhkui[address] [place] [address]Dr. Abhinav Jase XR CHEST 1 Von 11-25-2022 XR CHEST 1 V Normal The [facility] ACETONE SERUMon 11-09-2022 ACETONE Negative Normal NEGATIVE The [facility] Comment on above: Performed By: #### A CETON ####[facility] Uauaxwycqp6960[address] [place], [place] [address]Dr. Abhinav Laguna AMMONIAon 11-09-2022 Ammonia (P) [Moles/Vol] 13 umol/L Normal 11-32 The [facility] Comment on above: Performed By: #### A MM ####[facility] Achsuvcgsb2426[address] [place], [place] [address]Dr. Abhinav Laguna CBC AUTO DIFFon 11-09-2022 BASO # 0.1 103/ul Normal 0.0-0.1 The [facility] Comment on above: Performed By: #### C BC ####[facility] Tsvxzamxmc66[address] [place], [place] [address]Dr. Abhinav Laguna Basophils/100 WBC (Bld) 0.7 % Normal 0.2-2.0 The [facility] Comment on above: Performed By: #### C BC ####[facility] Luscrpnuzc1635[address] [place], [place] [address]Dr. Abhinav Laguna EO # 0.2 103/ul Normal 0.0-0.7 The [facility] Comment on above: Performed By: #### C BC ####[facility] Dgqirizwne45[address] [place], [place] [address]Dr. Abhinav Laguna Eosinophils/100 WBC (Bld) 2.1 % Normal 0.9-7.0 The [facility] Comment on above: Performed By: #### C BC ####[facility] Kfrmfbfxqz9804[address] [place], [place] [address]Dr. Abhinav Laguna Erythrocyte distribution width (RBC) [Ratio] 12.0 % Normal 11.0-15.0 The [facility] Comment on above: Performed By: #### C BC ####[facility] Whklouafiz[address] [place], [place] [address]Dr. Abhinav Laguna Hematocrit (Bld) [Volume fraction] 47.3 % Normal 42.0-54.0 [facility] Comment on above: Performed By: #### C BC ####[facility] Xstwyldquw[address] [place] [address]Dr. Abhinav Laguna Hemoglobin (Bld) [Mass/Vol] 17.2 g/dL Normal 14.0-18.0 The [facility] Comment on above: Performed By: #### C BC ####[facility] Mgbhoyisky4019[address] [place], [place] [address]Dr. Abhinav Laguna IG # 0.02 10e3/ul Normal 0.00-0.03 [facility] Comment on above: Performed By: #### C BC ####[facility] Afgfcwkzmd4417[address] [place], [place] [address]Dr. Abhinav Laguna IG % 0.2 % Normal 0.0-0.5 [facility] Comment on above: Performed By: #### C BC ####[facility] Togqrigqva375[address] [place], [place] [address]Dr. Abhinav Laguna LYMPH # 2.4 103/ul Normal 1.2-3.8 The [facility] Comment on above: Performed By: #### C BC ####[facility] Bnwyaypmqs7197[address] [place], [place] [address]Dr. Abhinav Laguna Lymphocytes/100 WBC (Bld) 23.3 % Normal 20.5-60.0 The [facility] Comment on above: Performed By: #### C BC ####[facility] Crbnxqfgbv1748[address] [place], [place] [address]Dr. Abhinav Laguna MANUAL DIFF REQ NO Normal [facility] [place] [facility] Comment on above: Performed By: #### C BC ####[facility] Zpfmqxllgx1445[address] [place], [place] [address]Dr. Abhinav Laguna MCH (RBC) [Entitic mass] 31.0 pg Normal 25.9-34.0 The [facility] Comment on above: Performed By: #### C BC ####[facility] Qlzojewvgz6970[address] [place], [place] [address]Dr. Abhinav Laguna MCHC (RBC) [Mass/Vol] 36.4 g/dL Critically high 29.9-35.2 The [facility] Comment on above: Performed By: #### C BC ####[facility] Zibzfziufg[address] [place] [address]DrNohemi Abhinav Jase MCV (RBC) [Entitic vol] 85.4 fL Normal 80.0-94.0 The [facility] Comment on above: Performed By: #### C BC ####[facility] Bgmphkghis2418[address] [place], [place] [address]DrNohemi Laguna MONO # 0.6 103/ul Normal 0.3-0.8 The [facility] Comment on above: Performed By: #### C BC ####[facility] Sgyklcvlkq3389[address] [place], [place] [address]DrNohemi Laguna Monocytes/100 WBC (Bld) 6.0 % Normal 1.7-12.0 The [facility] Comment on above: Performed By: #### C BC ####[facility] Aegxekxwaf33[address] [place], [place] [address]DrNohemi Laguna NEUT # 6.9 103/ul Critically high 1.4-6.5 [facility] [place] [facility] Comment on above: Performed By: #### C BC ####[facility] Rlfkgzadyo348[address] [place], [place] [address]Dr. Abhinav Laguna Neutrophils/100 WBC (Bld) 67.7 % Normal 43.0-75.0 The [facility] Comment on above: Performed By: #### C BC ####[facility] Lomygogwyn[address] [place], [place] [address]Dr. Abhinav Laguna Platelet mean volume (Bld) [Entitic vol] 10.4 fL Normal 9.5-13.5 The [facility] Comment on above: Performed By: #### C BC ####[facility] Plqkgcvlbz[address] [place], [place] [address]DrNohemi Laguna PLT 390 103/ul Normal 150-450 The [facility] Comment on above: Performed By: #### C BC ####[facility] Sixxsjnrzs[address] [place], [place] [address]Dr. Abhinav Laguna RBC 5.54 106/ul Normal 4.70-6.10 The [facility] Comment on above: Performed By: #### C BC ####[facility] Jess[address]xwio[address] [place], [place] [address]DnNohemi Laguna WBC 10.3 103/ul Normal 4.0-11.0 The [facility] Comment on above: Performed By: #### C BC ####[facility] Lpdgxfgrhh3656 [place], [place] [address]O[address]. [address] CT STROKE HEAD WOon 11-10-[address] STROKE HEAD WO Normal The [facility] Covid-19 PCR (CVDTBH)on 10-16 SARS-CoV-2 (COVID-19) RNA EVERT+probe Ql (Unsp spec) Not detected Normal NOT DETECTED The [facility] Comment on above: Result Comment: When diagnostic [...] for this test is supported by the [place] [employer] of Health and Human Service's declaration that [...] be used). Performed By: #### C VDTBH ####[facility] Vwjioqokul[address] [place], [place] [address]Nh. Abhinav Laguna DRUG SCREEN RAPID (URINE)on 11-09-2022 AMP Negative Normal NEGATIVE The [facility] Comment on above: Performed By: #### E RUR, DRUGRPD ####[facility] Fqwwxuqhvk79[address] [place], [place] [address]EiNohemi Abhinav Laguna BAR Negative Normal NEGATIVE The [facility] Comment on above: Performed By: #### E RUR, DRUGRPD ####[facility] Ejhixhgkuq2734[address] [place], [place] [address]Dr. Abhinav Laguna BUP Negative Normal NEGATIVE The [facility] Comment on above: Performed By: #### E RUR, DRUGRPD ####[facility] Rnptushxnk01[address] [place], [place] [address]Dr. Abhinav Laguna BZO Negative Normal NEGATIVE The [facility] Comment on above: Performed By: #### E RUR, DRUGRPD ####[facility] Ciufxfdejj38216[address] [place], [place] [address]Dr. Abhinav Laguna ISELA Negative Normal NEGATIVE The [facility] Comment on above: Performed By: #### E RUR, DRUGRPD ####[facility] Cwhvzlcnpj[address] [place], [place] [address]Dr. Abhinav Laguna CUT-OFFS SEE BELOW Normal The [facility] Comment on above: Result Comment: AMP (Amphetamine): 500ng/mL, BAR (Barbituates): 200 ng/mL, BZO (Benzodiazepines): 150 ng/mL, BUP (Buprenorphine): 10 ng/mL, ISELA (Cocaine): 150 ng/mL, mAMP (Methamphetamine): 500 ng/mL, MTD (Methadone): 200 ng/mL, OPI (Opiates): 100 ng/mL, OXY (Oxycodone): 100 ng/mL, PCP (Phencyclidine): 25 ng/mL, PPX (Propoxyphene): 300 ng/mL, THC (Cannabinoids): 50 ng/mL, TCA (Trycyclic Antidepressants): 300 ng/mL Performed By: #### E RUR, DRUGRPD ####[facility] Yrlnspyjcx10[address] [place], [place] [address]Dr. Abhinav Laguna DRUG CUT HEADER DRUG CLASS TEST SYST EM CUT-OFF CONCENTRATIONS ARE FOLLOWS: Normal The [facility] Comment on above: Performed By: #### E RUR, DRUGRPD ####[facility] Sxphvaipqp[address] [place], [place] [address]Dr. Abhinav Laguna mAMP Positive Abnormal NEGATIVE The [facility] Comment on above: Performed By: #### E RUR, DRUGRPD ####[facility] Qtfuxecjan[address] [place] [address]Dr. Yigallo Laguna MTD Negative Normal NEGATIVE The [facility] Comment on above: Performed By: #### E RUR, DRUGRPD ####[facility] Sitgtprfrb[address] [place], [place] [address]Dr. Yigallo Laguna OPI Negative Normal NEGATIVE The [facility] Comment on above: Performed By: #### E RUR, DRUGRPD ####[facility] Bakrbhhjib137[address] [place], [place] [address]Dr. Yilan Laguna OXY Negative Normal NEGATIVE The [facility] Comment on above: Performed By: #### E RUR, DRUGRPD ####[facility] Qkblfgsniv8935[address] [place], [place] [address]Dr. Abhinav Laguna PCP Negative Normal NEGATIVE The [facility] Comment on above: Performed By: #### E RUR, DRUGRPD ####[facility] Qazjgkakks[address] [place], [place] [address]Dr. Yigallo Laguna PPX Negative Normal NEGATIVE The [facility] Comment on above: Performed By: #### E RUR, DRUGRPD ####[facility] Cogntlibvr67[address] [place], [place] [address]Dr. Abhinav Laguna TCA Negative Normal NEGATIVE The [facility] Comment on above: Performed By: #### E RUR, DRUGRPD ####[facility] Ivhwxkaoew2267[address] [place], [place] [address]Dr. Abhinav Laguna THC Positive Abnormal NEGATIVE The [facility] Comment on above: Performed By: #### E RUR, DRUGRPD ####[facility] Qdjpvxbxdz4117[address] [place], [place] [address]Dr. Abhinav Laguna ER URINE PROFILEon 3 Bilirubin Ql (U) Negative Normal NEGATIVE The [facility] Comment on above: Performed By: #### E RUR, DRUGRPD ####[facility] Fvsduihkte60[address] [place], [place] [address]Dr. Mirandalan Laguna Clarity (U) CLEAR Normal CLEAR The [facility] Comment on above: Performed By: #### E RUR, DRUGRPD ####[facility] Rqnunusclm[address] [place] [address]Dr. Abhinav Laguna Color (U) LT. YELLOW Normal YELLOW The [facility] Comment on above: Performed By: #### oLn BRODY DRUGRPD ####[facility] Rpkvdazehy4[address] [place], [place] [address]Dr. Abhinav Laguna ERUAHD A micrscopic examina tion will be performed if indicated. Normal The [facility] Comment on above: Performed By: #### Lon BRODY DRUGRPD ####[facility] Xjlnhfpkqt[address] [place], [place] [address]Dr. Abhinav Laguna Glucose Ql (U) >1000 Abnormal NEGATIVE The [facility] Comment on above: Performed By: #### Lon BRODY DRUGRPD ####[facility] Mznnmeyayo[address] [place], [place] [address]Dr. Abhinav Laguna Hemoglobin Ql (U) Negative Normal NEGATIVE [facility] Comment on above: Performed By: #### Lon BRODY DRUGRPD ####[facility] Eoyfzxpced29[address] [place], [place] [address]Dr. Abhinav Laguna Ketones Ql (U) Negative Normal NEGATIVE The [facility] Comment on above: Performed By: #### Lon BRODY DRUGRPD ####[facility] Tiogpgzyuq6332[address] [place], [place] [address]Dr. Abhinav Laguna LEUKOCYTES Negative Normal NEGATIVE The [facility] Comment on above: Performed By: #### Lon BRODY DRUGRPD ####[facility] Plvhrnrfbo56[address] [place], [place] [address]Dr. Abhinav Laguna Nitrite Ql (U) Negative Normal NEGATIVE The [facility] Comment on above: Performed By: #### Lon BRODY DRUGRPD ####[facility] Yxtfoitxac[address] [place], [place] [address]Dr. Abhinav Laguna pH (U) 6.0 [pH] Normal 5-9 The [facility] Comment on above: Performed By: #### Lon BRODY DRUGRPD ####[facility] Hgqjfinspc5170[address] [place], [place] [address]Dr. Abhinav Laguna SPEC GRAVITY <=1.005 Abnormal 1.005-<=1. 025 [facility] Comment on above: Performed By: #### Lon BRODY DRUGRPD ####[facility] Avivvvuodn[address] [place] [address]Dr. Abhinav Laguna UA PROTEIN Negative Normal NEGATIVE/ TRACE [facility] Comment on above: Performed By: #### Lon BRODY DRUGRPD ####[facility] Iefoctoqpo[address] [place] [address]Dr. Mirandagallo Jase UR MICRO IND NOT INDICATED Normal [facility] Comment on above: Performed By: #### Lon BRODY DRUGRPD ####[facility] Kbehjfdqmb[address] [place] [address]Dr. Abhinav Laguna Urobilinogen Qn (U) 0.2 {Marshall'U}/dL Normal 0.2 - 1. 0 [facility] Comment on above: Performed By: #### Lon BRODY DRUGRPD ####[facility] F[address]prnt[address] [place] [address]Dr. Mirandagallo Laguna POINT OF CARE GLUCOSEon 10-16 Glucose [Mass/Vol] 162 mg/dL Critically high 74-106 [facility] Comment on above: Performed By: #### P OCGLUC ####[facility] Vaxixjylyq[address] [place] [address]Dr. Abhinav Laguna Glucose [Mass/Vol] 303 mg/dL Critically high -106 [facility] Comment on above: Performed By: #### P OCGLUC ####[facility] Xadjotknuv4[address] [place] [address]Dr. Abhinav Laguna Glucose [Mass/Vol] 404 mg/dL Critically high -106 [facility] Comment on above: Performed By: #### P OCGLUC ####[facility] Jcvebrvqno86[address] [place], [place] [address]Dr. Abhinav Laguna PROF 14(COMP METB)on 023 Albumin [Mass/Vol] 3.3 g/dL Critically low 3.4-5.0 [facility] Comment on above: Performed By: #### C MP ####[facility] Zw[address]yg[address] [place] [address]Dr. Abhinav Laguna Albumin/Globulin [Mass ratio] 0.8 {ratio} Normal [facility] Comment on above: Performed By: #### C MP ####[facility] Ngepvdhymc[address] [place] [address]Dr. Abhinav Laguna ALP [Catalytic activity/Vol] 290 U/L Critically high 46-116 [facility] Comment on above: Performed By: #### C MP ####[facility] Ozxmlofrlh6[address] [place], [place] [address]Dr. Abhinav Jase ALT [Catalytic activity/Vol] 36 U/L Normal 16-63 The [facility] Comment on above: Performed By: #### C MP ####[facility] Akseedrsxm516[address] [place], [place] [address]Dr. Abhinav Jase Anion gap [Moles/Vol] 9.1 mmol/L Normal [facility] Comment on above: Performed By: #### C MP ####[facility] Tzteircjef[address]24[address] [place], [place] [address]Dr. Abhinav Jase AST [Catalytic activity/Vol] 16 U/L Normal 15-37 [facility] Comment on above: Performed By: #### C MP ####[facility] Ncykwmavmv264[address] [place], [place] [address]Dr. Abhinav Jase Bilirubin [Mass/Vol] 0.5 mg/dL Normal 0.2-1.0 [facility] Comment on above: Performed By: #### C MP ####[facility] Qjmepftpsz6[address] [place], [place] [address]Dr. Abhinav Jase Calcium [Mass/Vol] 10.2 mg/dL Critically high 8.5-10.1 T [facility] Comment on above: Performed By: #### C MP ####[facility] Aniumsnudc34[address] [place], [place] [address]Dr. Abhinav Laguna Chloride [Moles/Vol] 94 mmol/L Critically low 98-107 The [facility] Comment on above: Performed By: #### C MP ####[facility] Djhbfdvnez[address] [place] [address]Dr. Mirandagallo Laguna CO2 [Moles/Vol] 29.3 mmol/L Normal 21.0-32.0 The [facility] Comment on above: Performed By: #### C MP ####[facility] Vahetpipkg[address] [place] [address]Dr. Abhinav Laguna Creatinine [Mass/Vol] 0.91 mg/dL Normal 0.70-1.30 The [facility] Comment on above: Performed By: #### C MP ####[facility] Btxcvlvswl[address] [place], [place] [address]Dr. Abhinav Jase EGFR-AF SALVADOREAN >60 Normal >=60 The [facility] Comment on above: Performed By: #### C MP ####[facility] Xxkeilauui206[address] [place], [place] [address]Dr. Abhinav Laguna EGFR-NON AF SALVADOREAN >60 Normal >=60 [facility] Comment on above: Performed By: #### C MP ####[facility] Aigzzumedg28[address] [place], [place] [address]Dr. Abhinav Laguna Globulin (S) [Mass/Vol] 4.3 g/dL Normal [facility] Comment on above: Performed By: #### C MP ####[facility] Gykpwsouew5[address] [place], [place] [address]Dr. Abhinav Laguna Glucose [Mass/Vol] 562 mg/dL Critically high 74-106 T [facility] Comment on above: Performed By: #### C MP ####[facility] Kcfoduczvn04[address] [place], [place] [address]Dr. Abhinav Laguna Potassium [Moles/Vol] 4.4 mmol/L Normal 3.5-5.1 The [facility] Comment on above: Performed By: #### C MP ####[facility] Gwzyxlkcay[address] [place], [place] [address]Dr. Abhinav Laguna Protein [Mass/Vol] 7.6 g/dL Normal 6.4-8.2 [facility] Comment on above: Performed By: #### C MP ####[facility] Oshskrtcll064[address] [place], [place] [address]Dr. Abhinav Laguna Sodium [Moles/Vol] 128 mmol/L Critically low 136-145 Th e [facility] Comment on above: Performed By: #### C MP ####[facility] Bziabcerqm[address] [place] [address]Dr. Abhinav Jase Urea nitrogen [Mass/Vol] 21.0 mg/dL Critically high 7.0-18.0 [facility] Comment on above: Performed By: #### C MP ####[facility] Clilfkdika6[address] [place], [place] [address]Dr. Mirandagallo Laguna Urea nitrogen/Creatinine [Mass ratio] 23.1 mg/mg Normal [facility] Comment on above: Performed By: #### C MP ####[facility] Maiprnlnjc[address] [place], [place] [address]DrNohemi Mirandagallo Laguna XR CHEST 1 Von 11-09-2022 XR CHEST 1 V Normal [facility] ACETAMINOPHENon 10-23-2022 Acetaminophen [Mass/Vol] ug/mL Critically low 10.0-30.0 [facility] Comment on above: Performed By: #### T SH, CMP, SALYC, HSTROPN, ETH, ACET ####[facility] Fpzgwiphcg[address] [place], [place] [address]Dr. Mirandagallo Laguna ACETONE SERUMon 10-23-2022 ACETONE Negative Normal NEGATIVE [facility] Comment on above: Performed By: #### A CETON ####[facility] Iugauubkli047[address] [place], [place] [address]Dr. Abhinav Jase AMMONIAon 10-23-2022 Ammonia (P) [Moles/Vol] 21 umol/L Normal 11-32 The [facility] Comment on above: Performed By: #### A MM ####[facility] Guorfvbobe09[address] [place], [place] [address]DrNohemi Mirandagallo Laguna CBC AUTO DIFFon 10-23-2022 BASO # 0.1 103/ul Normal 0.0-0.1 [facility] Comment on above: Performed By: #### C BC ####[facility] Rpbdpoglnx314[address] [place], [place] [address]DrNohemi Laguna Basophils/100 WBC (Bld) 0.5 % Normal 0.2-2.0 [facility] Comment on above: Performed By: #### C BC ####[facility] Xnscucflnl[address] [place], [place] [address]DrNohemi Laguna EO # 0.3 103/ul Normal 0.0-0.7 [facility] Comment on above: Performed By: #### C BC ####[facility] Tzzedbcrwf14[address] [place], [place] [address]DrNohemi Laguna Eosinophils/100 WBC (Bld) 3.1 % Normal 0.9-7.0 [facility] Comment on above: Performed By: #### C BC ####[facility] Wqquluudsr1232[address] [place], [place] [address]Dr. Abhinav Laguna Erythrocyte distribution width (RBC) [Ratio] 12.6 % Normal 11.0-15.0 [facility] Comment on above: Performed By: #### C BC ####[facility] Nsuxdjkpez5[address] [place], [place] [address]Dr. Abhinav Laguna Hematocrit (Bld) [Volume fraction] 42.9 % Normal 42.0-54.0 [facility] Comment on above: Performed By: #### C BC ####[facility] Trvcvdonja[address] [place], [place] [address]DrNohemi Laguna Hemoglobin (Bld) [Mass/Vol] 15.9 g/dL Normal 14.0-18.0 [facility] Comment on above: Performed By: #### C BC ####[facility] Velxckxicy[address] [place], [place] [address]DrNohemi Laguna IG # 0.05 10e3/ul Critically high 0.00-0.03 [facility] Comment on above: Performed By: #### C BC ####[facility] Wwbcvrazir[address] [place], [place] [address]DrNohemi Laguna IG % 0.5 % Normal 0.0-0.5 [facility] Comment on above: Performed By: #### C BC ####[facility] Zgtsapbkmk[address] [place], [place] [address]DrNohemi Laguna LYMPH # 2.3 103/ul Normal 1.2-3.8 The [facility] Comment on above: Performed By: #### C BC ####[facility] Pxkazispmj[address] [place] [address]Dr. Abhinav Laguna Lymphocytes/100 WBC (Bld) 23.1 % Normal 20.5-60.0 [facility] Comment on above: Performed By: #### C BC ####[facility] Sewfajzfwb[address] [place], [place] [address]Dr. Abhinav Laguna MANUAL DIFF REQ NO Normal [facility] Comment on above: Performed By: #### C BC ####[facility] Tgwyjcauwq512[address] [place], [place] [address]Dr. Abhinav Laguna MCH (RBC) [Entitic mass] 31.3 pg Normal 25.9-34.0 [facility] Comment on above: Performed By: #### C BC ####[facility] Gwguyhhfkf[address] [place], [place] [address]Dr. Abhinav Laguna MCHC (RBC) [Mass/Vol] 37.1 g/dL Critically high 29.9-35.2 [facility] Comment on above: Performed By: #### C BC ####[facility] Oyauftulnr[address] [place], [place] [address]Dr. Abhinav Laguna MCV (RBC) [Entitic vol] 84.4 fL Normal 80.0-94.0 [facility] Comment on above: Performed By: #### C BC ####[facility] Prtxobhojw[address] [place], [place] [address]Dr. Abhinav Laguna MONO # 0.8 103/ul Normal 0.3-0.8 [facility] Comment on above: Performed By: #### C BC ####[facility] Vydmmltydi7[address] [place], [place] [address]Dr. Abhinav Laguna Monocytes/100 WBC (Bld) 7.8 % Normal 1.7-12.0 [facility] Comment on above: Performed By: #### C BC ####[facility] Nsfworwlrh09[address] [place], [place] [address]Dr. Abhinav Laguna NEUT # 6.4 103/ul Normal 1.4-6.5 [facility] Comment on above: Performed By: #### C BC ####[facility] Ztbkbesqrr[address] [place] [address]Dr. Abhinav Laguna Neutrophils/100 WBC (Bld) 65.0 % Normal 43.0-75.0 [facility] Comment on above: Performed By: #### C BC ####[facility] Wodmnmxpmo47[address] [place] [address]Dr. Abhinav Laguna Platelet mean volume (Bld) [Entitic vol] 11.2 fL Normal 9.5-13.5 [facility] Comment on above: Performed By: #### C BC ####[facility] Khacbpkpma39[address] [place] [address]Dr. Abhinav Laguna PLT 319 103/ul Normal 150-450 [facility] Comment on above: Performed By: #### C BC ####[facility] Bnslygqnct9[address] [place], [place] [address]Dr. Abhinav Laguna RBC 5.08 106/ul Normal 4.70-6.10 [facility] Comment on above: Performed By: #### C BC ####[facility] Rsrfhkrthx36[address] [place], [place] [address]Dr. Abhinav Laguna WBC 9.9 103/ul Normal 4.0-11.0 [facility] Comment on above: Performed By: #### C BC ####[facility] Ygyqgcgofv[address] [place], [place] [id number]. Abhinav Jase CT STROKE HEAD WOon 10-24-[address] STROKE HEAD WO Normal [facility] CULTURE BLOODon 10-23-2022 Microscopic examination of blood, culture Culture Observations: NO GROWTH AT 5 DAYS. Normal The [facility] Comment on above: Performed By: #### B LDCX2 ####[facility] Cqqtgnkpqy17[address] [place] [address]Dr. Abhinav Jase Microscopic examination of blood, culture Culture Observations: NO GROWTH AT 5 DAYS. Normal The [facility] Comment on above: Performed By: #### B LDCX1 ####[facility] Icvjyxmoiu35[address] [place] [address]Dr. Abhinav Laguna Covid-19 PCR (CVDTB)on SARS-CoV-2 (COVID-19) RNA EVERT+probe Ql (Unsp spec) Not detected Normal NOT DETECTED [facility] Comment on above: Result Comment: When diagnostic [...] for this test is supported by the [place] of Health and Human Service's declaration that [...] be used). Performed By: #### C VDTBH ####[facility] Crrqcvfswo92[address] [place], [place] [address]Dr. Abhinav Laguna DRUG SCREEN RAPID (URINE)on 10-23-2022 AMP Positive Abnormal NEGATIVE The [facility] Comment on above: Performed By: #### D HOA ERUR ####[facility] Dtdvlznyjk[address] [place], [place] [address]Dr. Abhinav Laguna BAR Negative Normal NEGATIVE [facility] Comment on above: Performed By: #### D HOA, ERUR ####[facility] Jnfwznypda36[address] [place] [id number]. Mirandagallo Laguna BUP Negative Normal NEGATIVE The [facility] Comment on above: Performed By: #### D HOA, ERUR ####[facility] Ozhbdjmsox6[address] [place], [place] [address]Dr. Mirandagallo Laguna BZO Negative Normal NEGATIVE The [facility] Comment on above: Performed By: #### D HOA, ERUR ####[facility] Xpinnjjwob2961 [place] [address]Dr. Abhinav Laguna ISELA Positive Abnormal NEGATIVE The [facility] Comment on above: Performed By: #### Marco Antonio CAMARA, ERUR ####[facility] Jffuvluqxl07[address] [place] [address]Dr. Abhinav Laguna CUT-OFFS SEE BELOW Normal [facility] Comment on above: Result Comment: AMP (Amphetamine): 500ng/mL, BAR (Barbituates): 200 ng/mL, BZO (Benzodiazepines): 150 ng/mL, BUP (Buprenorphine): 10 ng/mL, ISELA (Cocaine): 150 ng/mL, mAMP (Methamphetamine): 500 ng/mL, MTD (Methadone): 200 ng/mL, OPI (Opiates): 100 ng/mL, OXY (Oxycodone): 100 ng/mL, PCP (Phencyclidine): 25 ng/mL, PPX (Propoxyphene): 300 ng/mL, THC (Cannabinoids): 50 ng/mL, TCA (Trycyclic Antidepressants): 300 ng/mL Performed By: #### Marco Antonio CAMARA, ERUR ####[facility] Bmlhhppppw[address] [place], [place] [address]Dr. Abhinav Laguna DRUG CUT HEADER DRUG CLASS TEST SYST EM CUT-OFF CONCENTRATIONS ARE FOLLOWS: Normal The [facility] Comment on above: Performed By: #### Marco Antonio CAMARA ERUR ####[facility] Lodamqtilr[address] [place], [place] [address]Dr. Abhinav Laguna mAMP Positive Abnormal NEGATIVE The [facility] Comment on above: Performed By: #### Marco Antonio CAMARA, ERUR ####[facility] Fspxbnaryk2159 [place] [id number]. Abhinav Laguna MTD Negative Normal NEGATIVE The [facility] Comment on above: Performed By: #### Marco Antonio CAMARA, ERUR ####[facility] Nxipqwclcb67[address] [place] [address]Dr. Abhinav Laguna OPI Negative Normal NEGATIVE The [facility] Comment on above: Performed By: #### Marco Antonio CAMARA ERUR ####[facility] Klrywtrerd2060 [place] [address]Dr. Abhinav Laguna OXY Negative Normal NEGATIVE The [facility] Comment on above: Performed By: #### Marco Antonio CAMARA, ERUR ####[facility] Frgorccotj9110 [place] [address]Dr. Abhinav Laguna PCP Negative Normal NEGATIVE [facility] Comment on above: Performed By: #### Marco Antonio CAMARA, ERUR ####[facility] Jnhhyjbsws3104 [place] [address]Dr. Abhinav Laguna PPX Negative Normal NEGATIVE [facility] Comment on above: Performed By: #### D HOA, ERUR ####[facility] Bujzlmcpig036[address] [place] [address]Dr. Abhinav Laguna TCA Negative Normal NEGATIVE [facility] Comment on above: Performed By: #### Marco Antonio CAMARA, ERUR ####[facility] Fgryzsttox4[address] [place] [address]Dr. Abhinav Laguna THC Positive Abnormal NEGATIVE [facility] Comment on above: Performed By: #### Marco Antonio CAMAAR, ERUR ####[facility] Oybpdcqwqh2082 [place] [address]Dr. Abhinav Laguna ER URINE PROFILEon 3 Bilirubin Ql (U) Negative Normal NEGATIVE The [facility] Comment on above: Performed By: #### Marco Antonio CAMARA, ERUR ####[facility] Jisqhpidum13[address] [place] [address]Dr. Abhinav Laguna Clarity (U) CLEAR Normal CLEAR [facility] Comment on above: Performed By: #### Marco Antonio CAMARA, ERUR ####[facility] Lbgrmtlhli0214 [place] [address]Dr. Abhinav Laguna Color (U) LT. YELLOW Normal YELLOW The [facility] Comment on above: Performed By: #### Marco Antonio CAMARA, ERUR ####[facility] Ehhnzpnnvb9[address] [place] [address]Dr. Abhinav Laguna ERUAHD A micrscopic examina tion will be performed if indicated. Normal The [facility] Comment on above: Performed By: #### Marco Antonio CAMARA, ERUR ####[facility] Yhlcukagwj02[address] [place] [address]Dr. Abhinav Laguna Glucose Ql (U) >1000 Abnormal NEGATIVE The [facility] Comment on above: Performed By: #### Marco Antonio CAMARA, ERUR ####[facility] Ugppdmqthj88[address] [place] [address]Dr. Abhinav Laguna Hemoglobin Ql (U) Negative Normal NEGATIVE [facility] Comment on above: Performed By: #### Marco Antonio CAMARA, ERUR ####[facility] Lsiqhrccji5106 [place] [address]Dr. Abhinav Laguna Ketones Ql (U) Negative Normal NEGATIVE The [facility] Comment on above: Performed By: #### Macro Antonio CAMARA, ERUR ####[facility] Aedcgqsuhr4[address] [place], [place] [address]Dr. Abhinav Laguna LEUKOCYTES Negative Normal NEGATIVE [facility] Comment on above: Performed By: #### Marco Antonio CAMARA, ERUR ####[facility] Ydnqxsocls9380 [place] [address]Dr. Abhinav Laguna Nitrite Ql (U) Negative Normal NEGATIVE The [facility] Comment on above: Performed By: #### Marco Antonio CAMARA ERUR ####[facility] Nwpeioljog[address] [place], [place] [address]Dr. Mirandagallo Jase pH (U) 6.5 [pH] Normal 5-9 [facility] Comment on above: Performed By: #### Marco Antonio CAMARA, ERUR ####[facility] Zecqtqqtha5[address] [place], [place] [address]Dr. Abhinav Jase SPEC GRAVITY <=1.005 Abnormal 1.005-<=1. 025 [facility] Comment on above: Performed By: #### Marco Antonio CAMARA ERUR ####[facility] Eptyzdgaiw6[address] [place], [place] [address]Dr. Abhinav Laguna UA PROTEIN Negative Normal NEGATIVE/ TRACE [facility] Comment on above: Performed By: #### Marco Antonio CAMARA, ERUR ####[facility] Ukysezqpgr[address]64[address] [place], [place] [address]Dr. Abhinav Laguna UR MICRO IND NOT INDICATED Normal [facility] Comment on above: Performed By: #### D HOA, ERUR ####[facility] Vkbapkklor97[address] [place] [address]Dr. Abhinav Laguna Urobilinogen Qn (U) 0.2 {Marshall'U}/dL Normal 0.2 - 1. 0 [facility] Comment on above: Performed By: #### D HOA, ERUR ####[facility] Ywsruzhact4865 [place] [address]Dr. Abhinav Laguna ETHANOL (BLD ALC)on 10-24-19 23 ALC NOTE NOTE: 80 mg/dl is city hospital legal limit for a blood alcohol level Normal [facility] Comment on above: Performed By: #### T SH, CMP, SALYC, HSTROPN, ETH, ACET ####[facility] Vfncwthbba27[address] [place] [address]Dr. Abhinav Jase Ethanol [Mass/Vol] mg/dL Normal [facility] Comment on above: Performed By: #### T SH, CMP, SALYC, HSTROPN, ETH, ACET ####[facility] Pmbsqklsqt5938 [place] [address]Dr. Abhinav Laguna LACTATE/LACTIC ACIDon 2022 Lactate [Moles/Vol] 2.8 mmol/L Critically high 0.4-2.0 [facility] Comment on above: Performed By: #### L ACT ####[facility] Hzffuyapes99[address] [place], [place] [address]Dr. Abhinav Laguna POINT OF CARE GLUCOSEon POCGLUC >600 Critically high 74-106 [facility] Comment on above: Result Comment: Resu lt Not Confirmed Performed By: #### P OCGLUC ####[facility] Ifdtemznrr168[address] [place], [place] [address]Dr. Mirandagallo Laguna PROF 14(COMP METB)on 023 Albumin [Mass/Vol] 3.3 g/dL Critically low 3.4-5.0 e [facility] Comment on above: Performed By: #### T SH, CMP, SALYC, HSTROPN, ETH, ACET ####[facility] Pnlxyfbxfq46[address] [place] [address]Dr. Abhinav Laguna Albumin/Globulin [Mass ratio] 0.8 {ratio} Normal [facility] Comment on above: Performed By: #### T SH, CMP, SALYC, HSTROPN, ETH, ACET ####[facility] Chhegerjep[address] [place] [address]Dr. Abhinav Laugna ALP [Catalytic activity/Vol] 529 U/L Critically high 46-116 [facility] Comment on above: Performed By: #### T SH, CMP, SALYC, HSTROPN, ETH, ACET ####[facility] Uliweypemy17[address] [place] [address]Dr. Abhinav Laguna ALT [Catalytic activity/Vol] 35 U/L Normal 16-63 [facility] Comment on above: Performed By: #### T SH, CMP, SALYC, HSTROPN, ETH, ACET ####[facility] Lswujnynxk39[address] [place] [address]Dr. Abhinav Laguna Anion gap [Moles/Vol] 5.9 mmol/L Normal [facility] Comment on above: Performed By: #### T SH, CMP, SALYC, HSTROPN, ETH, ACET ####[facility] Cywwiuqrcr8594 [place] [address]Dr. Abhinav Laguna AST [Catalytic activity/Vol] 12 U/L Critically low 15-37 [facility] Comment on above: Performed By: #### T SH, CMP, SALYC, HSTROPN, ETH, ACET ####[facility] Opjjyihopg2616 [place] [address]Dr. Abhinav Laguna Bilirubin [Mass/Vol] 0.3 mg/dL Normal 0.2-1.0 [facility] Comment on above: Performed By: #### T SH, CMP, SALYC, HSTROPN, ETH, ACET ####[facility] Twuvkspyud1923 [place] [address]Dr. Abhinav Laguna Calcium [Mass/Vol] 10.6 mg/dL Critically high 8.5-10.1 [facility] Comment on above: Performed By: #### T SH, CMP, SALYC, HSTROPN, ETH, ACET ####[facility] Wdasffnyxf9874 [place] [address]Dr. Abhinav Laguna Chloride [Moles/Vol] 93 mmol/L Critically low 98-107 [facility] Comment on above: Performed By: #### T SH, CMP, SALYC, HSTROPN, ETH, ACET ####[facility] Yxnjxlswod4673 [place] [address]Dr. Abhinav Laguna CO2 [Moles/Vol] 31.5 mmol/L Normal 21.0-32.0 [facility] Comment on above: Performed By: #### T SH, CMP, SALYC, HSTROPN, ETH, ACET ####[facility] Brlmnclirz[address] [place], [place] [address]Dr. Abhinav Laguna Creatinine [Mass/Vol] 1.03 mg/dL Normal 0.70-1.30 [facility] Comment on above: Performed By: #### T SH, CMP, SALYC, HSTROPN, ETH, ACET ####[facility] Vcgxzlhcpw[address] [place], [place] [address]Dr. Abhinav Laguna EGFR-AF SALVADOREAN >60 Normal >=60 The [facility] Comment on above: Performed By: #### T SH, CMP, SALYC, HSTROPN, ETH, ACET ####[facility] Aajnmpysgr8[address] [place] [address]Dr. Abhinav Laguna EGFR-NON AF SALVADOREAN >60 Normal >=60 The [facility] Comment on above: Performed By: #### T SH, CMP, SALYC, HSTROPN, ETH, ACET ####[facility] Viqaxqvhym[address] [place], [place] [address]Dr. Abhinav Laguna Globulin (S) [Mass/Vol] 3.9 g/dL Normal [facility] Comment on above: Performed By: #### T SH, CMP, SALYC, HSTROPN, ETH, ACET ####[facility] Nhzmokeahj26[address] [place] [address]Dr. Abhinav Laguna Glucose [Mass/Vol] 738 mg/dL Critically high 74-106 T [facility] Comment on above: Performed By: #### T SH, CMP, SALYC, HSTROPN, ETH, ACET ####[facility] Sqcfzuyfdj6596 [place] [address]Dr. Abhinav Laguna Potassium [Moles/Vol] 4.4 mmol/L Normal 3.5-5.1 [facility] Comment on above: Performed By: #### T SH, CMP, SALYC, HSTROPN, ETH, ACET ####[facility] Omdrlaykqu15[address] [place] [address]Dr. bAhinav Laguna Protein [Mass/Vol] 7.2 g/dL Normal 6.4-8.2 [facility] Comment on above: Performed By: #### T SH, CMP, SALYC, HSTROPN, ETH, ACET ####[facility] Vsakuzcddl[address] [place], [place] [address]Dr. Abhinav Laguna Sodium [Moles/Vol] 126 mmol/L Critically low 136-145 [facility] Comment on above: Performed By: #### T SH, CMP, SALYC, HSTROPN, ETH, ACET ####[facility] Zxfqburjms72[address] [place] [address]Dr. Abhinav Laguna Urea nitrogen [Mass/Vol] 21.0 mg/dL Critically high 7.0-18.0 [facility] Comment on above: Performed By: #### T SH, CMP, SALYC, HSTROPN, ETH, ACET ####[facility] Bgbqepopzm0487 [place] [address]Dr. Abhinav Laguna Urea nitrogen/Creatinine [Mass ratio] 20.4 mg/mg Normal [facility] Comment on above: Performed By: #### T SH, CMP, SALYC, HSTROPN, ETH, ACET ####[facility] Wllqrukpdb27[address] [place] [address]Dr. Abhinav Laguna PROTIMEon 10-23-2022 INR Coag (PPP) [Relative time] 0.95 {INR} Normal [facility] Comment on above: Performed By: #### P T, PTT ####[facility] Gyukzyhbew[address] [place] [address]Dr. Abhinav Laguna INR GUIDELINES SEE BELOW Normal [facility] Comment on above: Result Comment: FABRICE RED INR: 2.0 - 3.0 CONDITIONS NOT LISTED BELOW 2.5 - 3.5 FOR PROSTHETIC HEART VALVE REPLACEMENT 2.5 - 3.5 RECURRENT THROMBOSIS Performed By: #### P T, PTT ####[facility] Rwyrjjahwt8[address] [place] [address]Dr. Abhinav Laguna PT Coag (PPP) [Time] 10.1 s Normal 9.0-11.6 [facility] Comment on above: Performed By: #### P T, PTT ####[facility] Tswqqjlkgg[address] [place], [place] [address]Dr. Abhinav Laguna PTTon 10-23-2022 aPTT Coag (Bld) [Time] 27.7 s Normal 22.3-36.2 [facility] Comment on above: Performed By: #### P T, PTT ####[facility] Rhzmwilnhw[address] [place], [place] [address]Dr. Abhinav Laguna SALICYLATEon 10-23-2022 SALICYLATE <2.8 Normal <=19.9 [facility] Comment on above: Performed By: #### T SH, CMP, SALYC, HSTROPN, ETH, ACET ####[facility] Rfltuduqzf[address] [place] [address]Dr. Abhinav Laguna TROPONIN, HIGH SENSITIVITYon 10-23-2022 HSTROP 5.9 pg/mL Normal 4.0-76.1 [facility] Comment on above: Result Comment: CUT- OFF POINTS HAVE BEEN ESTABLISHED BASED ON THE FOURTH UNIVERSAL DEFINITIONS OF MYOCARDIALINFARCTION. THE UPPER REFERENCE LIMIT (URL) OF TROPONIN, DEFINED THE 99TH PERCENTILE OFcTnI DISTRIBUTION IN A REFERENCE POPULATION, HAS BEEN CONFIRMED THE DECISION THRESHOLDFOR IA DIAGNOSIS. Performed By: #### T SH, CMP, SALYC, HSTROPN, ETH, ACET ####[facility] Iwnaippips[address] [place], [place] [address]Dr. Abhinav Laguna TSHon 10-23-2022 TSH 1.612 uIU/mL Normal 0.358-3.74 0 [facility] Comment on above: Performed By: #### T SH, CMP, SALYC, HSTROPN, ETH, ACET ####[facility] Wbmhbujudo[address] [place] [id number]. Abhinav Laguna XR CHEST 1 Von 10-23-2022 XR CHEST 1 V Normal [facility] CBC AUTO DIFFon 08-22-2022 BASO # 0.0 103/ul Normal 0.0-0.1 [facility] Comment on above: Performed By: #### C BC ####[facility] Fosajxizwt27[address] [place] [address]Dr. Abhinav Laguna Basophils/100 WBC (Bld) 0.4 % Normal 0.2-2.0 [facility] Comment on above: Performed By: #### C BC ####[facility] Srttgfscqv7243 [place] [address]Dr. Abhinav Laguna EO # 0.2 103/ul Normal 0.0-0.7 [facility] Comment on above: Performed By: #### C BC ####[facility] Xmyqwzsclm3952 [place] [address]Dr. Abhinav Laguna Eosinophils/100 WBC (Bld) 2.8 % Normal 0.9-7.0 [facility] Comment on above: Performed By: #### C BC ####[facility] Eepwdnmzjj0174 [place] [address]Dr. Abhinav Laguna Erythrocyte distribution width (RBC) [Ratio] 12.8 % Normal 11.0-15.0 [facility] Comment on above: Performed By: #### C BC ####[facility] Vgboxiovan5194 [place] [address]Dr. Abhinav Laguna Hematocrit (Bld) [Volume fraction] 37.2 % Critically low 42.0-54.0 [facility] Comment on above: Performed By: #### C BC ####[facility] Bqwcthqnkf4787 [place] [address]Dr. Abhinav Laguna Hemoglobin (Bld) [Mass/Vol] 13.3 g/dL Critically low 14.0-18.0 [facility] Comment on above: Performed By: #### C BC ####[facility] Uefpikkoph3201 [place] [address]DrNohemi Laguna IG # 0.03 10e3/ul Normal 0.00-0.03 [facility] Comment on above: Performed By: #### C BC ####[facility] Ywnlukbwhx3040 [place] [address]DrNohemi Laguna IG % 0.4 % Normal 0.0-0.5 [facility] Comment on above: Performed By: #### C BC ####[facility] Jxeehroomm1559 [place] [address]DrNohemi Laguna LYMPH # 1.9 103/ul Normal 1.2-3.8 [facility] Comment on above: Performed By: #### C BC ####[facility] Iyysyjpgtp4632 [place] [address]DrNohemi Laguna Lymphocytes/100 WBC (Bld) 23.8 % Normal 20.5-60.0 [facility] Comment on above: Performed By: #### C BC ####[facility] Rodadeafkl9573 [place] [address]DrNohemi Laguna MANUAL DIFF REQ NO Normal [facility] Comment on above: Performed By: #### C BC ####[facility] Iymfxgbvuf1023 [place] [address]DrNohemi Laguna MCH (RBC) [Entitic mass] 30.2 pg Normal 25.9-34.0 [facility] Comment on above: Performed By: #### C BC ####[facility] Xorxapicxh7832 [place] [id number] Laguna MCHC (RBC) [Mass/Vol] 35.8 g/dL Critically high 29.9-35.2 [facility] Comment on above: Performed By: #### C BC ####[facility] Kmpulornio2543 [place] [id number] Laguna MCV (RBC) [Entitic vol] 84.5 fL Normal 80.0-94.0 [facility] Comment on above: Performed By: #### C BC ####[facility] Eortrtqtrm0623 [place] [id number]. Abhinav Laguna MONO # 0.7 103/ul Normal 0.3-0.8 [facility] Comment on above: Performed By: #### C BC ####[facility] Ohmwydjvjd4700 [place] [id number]. Abhinav Laguna Monocytes/100 WBC (Bld) 8.0 % Normal 1.7-12.0 [facility] Comment on above: Performed By: #### C BC ####[facility] Dsmedmirur7303 [place] [address]Dr. Abhinav Laguna NEUT # 5.2 103/ul Normal 1.4-6.5 [facility] Comment on above: Performed By: #### C BC ####[facility] Zwzttjwlii4317 [place] [address]Dr. Abhinav Laguna Neutrophils/100 WBC (Bld) 64.6 % Normal 43.0-75.0 [facility] Comment on above: Performed By: #### C BC ####[facility] Qlyqnoeaju2772 [place] [address]Dr. Abhinav Laguna Platelet mean volume (Bld) [Entitic vol] 11.6 fL Normal 9.5-13.5 [facility] Comment on above: Performed By: #### C BC ####[facility] Ourkrhvdia1119 [place] [id number]. Abhinav Laguna PLT 175 103/ul Normal 150-450 [facility] Comment on above: Performed By: #### C BC ####[facility] Tisagokbak12[address] [place] [id number]. Abhinav Laguna RBC 4.40 106/ul Critically low 4.70-6.10 [facility] Comment on above: Performed By: #### C BC ####[facility] Xgvvjpmhix5576 [place] [id number]. Abhinav Laguna WBC 8.1 103/ul Normal 4.0-11.0 [facility] Comment on above: Performed By: #### C BC ####[facility] Kekfqqqvgd73[address] [place] [address]Dr. Abhinav Laguna POINT OF CARE GLUCOSEon Glucose [Mass/Vol] 258 mg/dL Critically high 74-106 [facility] Comment on above: Performed By: #### P OCGLUC ####[facility] [address]ntzydf[address] [place], [place] [address]Dr. Abhinav Laguna Glucose [Mass/Vol] 177 mg/dL Critically high 74-106 [facility] Comment on above: Performed By: #### P OCGLUC ####[facility] Paraatmcli[address] [place], [place] [address]Dr. Abhinav Laguna PROF CHEM 8 (BAS METB)on Anion gap [Moles/Vol] 9.3 mmol/L Normal [facility] Comment on above: Performed By: #### B MP ####[facility] Tmpzwyajpc16[address] [place], [place] [address]Dr. Abhinav Laguna Calcium [Mass/Vol] 8.6 mg/dL Normal 8.5-10.1 [facility] Comment on above: Performed By: #### B MP ####[facility] Dqqzmbzwmk2019[address] [place], [place] [address]Dr. Abhinav Laguna Chloride [Moles/Vol] 107 mmol/L Normal 98-107 [facility] Comment on above: Performed By: #### B MP ####[facility] Yyhwvereto9058[address] [place], [place] [address]Dr. Abhinav Laguna CO2 [Moles/Vol] 22.7 mmol/L Normal 21.0-32.0 [facility] Comment on above: Performed By: #### B MP ####[facility] Ncwcgogzsz[address] [place], [place] [address]Dr. Abhinav Laguna Creatinine [Mass/Vol] 0.79 mg/dL Normal 0.70-1.30 [facility] Comment on above: Performed By: #### B MP ####[facility] Whybbsoaiz9899[address] [place], [place] [address]Dr. Abhinav Laguna EGFR-AF SALVADOREAN >60 Normal >=60 [facility] Comment on above: Performed By: #### B MP ####[facility] Wmapzsewtd[address] [place] [id number]. Abhinav Laguna EGFR-NON AF SALVADOREAN >60 Normal >=60 [facility] Comment on above: Performed By: #### B MP ####[facility] Zbrvcdjtws9722 [place] [id number]. Abhinav Laguna Glucose [Mass/Vol] 159 mg/dL Critically high 74-106 [facility] Comment on above: Performed By: #### B MP ####[facility] Sfjfpibbnu0458 [place] [id number]. Abhinav Laguna Potassium [Moles/Vol] 4.0 mmol/L Normal 3.5-5.1 [facility] Comment on above: Performed By: #### B MP ####[facility] Jcttfxqkca47[address] [place], [place] [address]Dr. Abhinav Laguna Sodium [Moles/Vol] 135 mmol/L Critically low 136-145 [facility] Comment on above: Performed By: #### B MP ####[facility] Xkedqsymal5367[address] [place], [place] [address]Dr. Abhinav Laguna Urea nitrogen [Mass/Vol] 29.0 mg/dL Critically high 7.0-18.0 [facility] Comment on above: Performed By: #### B MP ####[facility] Isnhofodtd4139[address] [place], [place] [address]Dr. Abhinav Laguna Urea nitrogen/Creatinine [Mass ratio] 36.7 mg/mg Normal [facility] Comment on above: Performed By: #### B MP ####[facility] Moswkzrejg83[address] [place] [id number]. Abhinav Laguna AMMONIAon 08-21-2022 Ammonia (P) [Moles/Vol] 12 umol/L Normal 11-32 [facility] Comment on above: Performed By: #### A MM ####[facility] Yxcgfrmhqz3158[address] [place], [place] [address]Dr. Abhinav Laguna BLOOD GASES BTYon 08-21-2022 02 MODE NASAL CANNULA Normal [facility] Comment on above: Performed By: #### A BG ####[facility] Cuthozcjjo[address] [place] [address]Dr. Abhinav Laguna ALLENS TEST Positive Normal [facility] Comment on above: Performed By: #### A BG ####[facility] Miwkmwdgyw6065 [place] [address]Dr. Abhinav Laguna Base excess Calc (Bld) [Moles/Vol] -6.2000 mmol/L Critically low -2.0-2.0 [facility] Comment on above: Performed By: #### A BG ####[facility] Pbosubuyfi4212[address] [place], [place] [address]Dr. Abhinav Laguna BIPAP PRESSURE [facility] Comment on above: Performed By: #### A BG ####[facility] Yfonnekeea985567 [address] [place], [place] [address]Dr. Abhinav Laguna CPAP [facility] Comment on above: Performed By: #### A BG ####[facility] Ahmyowskii06[address] [place], [place] [address]Dr. Abhinav Laguna FIO2 Normal [facility] Comment on above: Performed By: #### A BG ####[facility] Tyftibmkqy029[address] [place], [place] [address]Dr. Abhinav Laguna HCO3 (Bld) [Moles/Vol] 19.9 mmol/L Critically low 22.0-26. 0 [facility] Comment on above: Performed By: #### A BG ####[facility] Zuhckvsrkj7[address] [place], [place] [address]Dr. Abhinav Laguna LPM 2 Normal [facility] Comment on above: Performed By: #### A BG ####[facility] Zcyafifdea7776[address] [place], [place] [address]Dr. Abhinav Lagnua MINUTE VOLUME Normal [facility] Comment on above: Performed By: #### A BG ####[facility] Dkayfstbvq9839[address] [place], [place] [address]Dr. Abhinav Laguna Oxygen (Bld) [Partial pressure] 106.0 mm[Hg] Critically high 80.0-100.0 [facility] Comment on above: Performed By: #### A BG ####[facility] Grgaycfjeq4[address] [place] [address]Dr. Abhinav Laguna Oxygen saturation in Blood 98.3 % Normal 95.0-100.0 [facility] Comment on above: Performed By: #### A BG ####[facility] Vwskomwoxt8585 [place] [address]Dr. Abhinav Laguna PCO2 38.6 mmHg Normal 35.0-45.0 [facility] Comment on above: Performed By: #### A BG ####[facility] Lfiblckeqw1996[address] [place], [place] [address]Dr. Abhinav Laguna PEEP [facility] Comment on above: Performed By: #### A BG ####[facility] Vkwdbpbahk4644[address] [place], [place] [address]Dr. Abhinav Laguna pH (Bld) 7.320 [pH] Critically low 7.350-7.45 0 [facility] Comment on above: Performed By: #### A BG ####[facility] Bnkbexrjen2422[address] [place], [place] [address]Dr. Abhinav Laguna PIP [facility] Comment on above: Performed By: #### A BG ####[facility] Otblvfislq7[address] [place], [place] [address]Dr. Abhinav Laguna PS [facility] Comment on above: Performed By: #### A BG ####[facility] Qhhxjyvioy97[address] [place], [place] [address]Dr. Abhinav Laguna PUNCTURE SITE RR Normal [facility] Comment on above: Performed By: #### A BG ####[facility] Dupirlqyyr5613[address] [place], [place] [address]Dr. Abhinav Laguna RATE [facility] Comment on above: Performed By: #### A BG ####[facility] Ndfsygcxyk49[address] [place], [place] [address]Dr. Abhinav Laguna VENT MODE [facility] Comment on above: Performed By: #### A BG ####[facility] Wwvyaimmlx7985 [place] [address]Dr. Abhinav Laguna VT Normal [facility] Comment on above: Performed By: #### A BG ####[facility] Vazpvsnezv1463 [place] [address]Dr. Abhinav Laguna BNPon 08-21-2022 Natriuretic peptide B (Bld) [Mass/Vol] 69.0 pg/mL Normal <=900.0 [facility] Comment on above: Performed By: #### B SIGN LANGUAGE TEACHER, CMP, TSH, CMADM ####[facility] Usvatfngiy[address] [place] [address]Dr. Abhinav Laguna CARDIAC GILMER ADMITon 023 CK [Catalytic activity/Vol] 91 U/L Normal 39-308 [facility] Comment on above: Performed By: #### B SIGN LANGUAGE TEACHER, CMP, TSH, CMADM ####[facility] Wytxqdkiew9354 [place] [address]Dr. Abhinav Laguna CK.MB [Mass/Vol] 4.08 ng/mL Critically high <=3.60 [facility] Comment on above: Performed By: #### B SIGN LANGUAGE TEACHER, CMP, TSH, CMADM ####[facility] Gvdhhvgvdf7[address] [place], [place] [address]Dr. Abhinav Laguna HSTROP 10.8 pg/mL Normal 4.0-76.1 [facility] Comment on above: Result Comment: CUT- OFF POINTS HAVE BEEN ESTABLISHED BASED ON THE FOURTH UNIVERSAL DEFINITIONS OF MYOCARDIALINFARCTION. THE UPPER REFERENCE LIMIT (URL) OF TROPONIN, DEFINED THE 99TH PERCENTILE OFcTnI DISTRIBUTION IN A REFERENCE POPULATION, HAS BEEN CONFIRMED THE DECISION THRESHOLDFOR IA DIAGNOSIS. Performed By: #### B SIGN LANGUAGE TEACHER, CMP, TSH, CMADM ####[facility] Npdeuojnlq75[address] [place] [address]Dr. Abhinav Laguna RAINER 342 ng/mL Critically high 16-96 [facility] Comment on above: Performed By: #### B SIGN LANGUAGE TEACHER, CMP, TSH, CMADM ####[facility] Rkqimzmssp34[address] [place] [address]Dr. Abhinav Laguna CBC AUTO DIFFon 08-21-2022 BASO # 0.1 103/ul Normal 0.0-0.1 [facility] Comment on above: Performed By: #### C BC ####[facility] Znwohkihol4[address] [place] [address]Dr. Abhinav Jase Basophils/100 WBC (Bld) 0.6 % Normal 0.2-2.0 [facility] Comment on above: Performed By: #### C BC ####[facility] Hrncahqlzn355[address] [place], [place] [address]Dr. Abhinav Jase EO # 0.1 103/ul Normal 0.0-0.7 [facility] Comment on above: Performed By: #### C BC ####[facility] Cyoukueyex8377[address] [place], [place] [address]Dr. Abhinav Jase Eosinophils/100 WBC (Bld) 1.5 % Normal 0.9-7.0 [facility] Comment on above: Performed By: #### C BC ####[facility] Hnponeshan212467 [address] [place], [place] [address]Dr. Abhinav Jase Erythrocyte distribution width (RBC) [Ratio] 12.8 % Normal 11.0-15.0 [facility] Comment on above: Performed By: #### C BC ####[facility] Lcrtllgxfa40[address] [place], [place] [address]Dr. Abhinav Laguna Hematocrit (Bld) [Volume fraction] 42.1 % Normal 42.0-54.0 [facility] Comment on above: Performed By: #### C BC ####[facility] Hlebencupn[address] [place], [place] [address]Dr. Abhinav Laguna Hemoglobin (Bld) [Mass/Vol] 15.4 g/dL Normal 14.0-18.0 [facility] Comment on above: Performed By: #### C BC ####[facility] Tgxzfoloma6499[address] [place], [place] [address]Dr. Abhinav Laguna IG # 0.02 10e3/ul Normal 0.00-0.03 [facility] Comment on above: Performed By: #### C BC ####[facility] Qcvyfoamei3576[address] [place], [place] [address]Dr. Abhinav Laguna IG % 0.2 % Normal 0.0-0.5 [facility] Comment on above: Performed By: #### C BC ####[facility] Termlmrzjd8820 [place] [address]Dr. Abhinav Jase LYMPH # 2.5 103/ul Normal 1.2-3.8 [facility] Comment on above: Performed By: #### C BC ####[facility] Iywogtpouo2506 [place] [address]Dr. Abhinav Jase Lymphocytes/100 WBC (Bld) 28.3 % Normal 20.5-60.0 [facility] Comment on above: Performed By: #### C BC ####[facility] Rnjokpqduw1715 [place] [address]DrNohemi Laguna MANUAL DIFF REQ NO Normal [facility] Comment on above: Performed By: #### C BC ####[facility] Guzhqhygcr8294[address] [place], [place] [address]Dr. Mirandagallo Laguna MCH (RBC) [Entitic mass] 30.5 pg Normal 25.9-34.0 [facility] Comment on above: Performed By: #### C BC ####[facility] Xhzntixxzm39[address] [place], [place] [address]Dr. Abhinav Jase MCHC (RBC) [Mass/Vol] 36.6 g/dL Critically high 29.9-35.2 [facility] Comment on above: Performed By: #### C BC ####[facility] Mazlzjaamt18[address] [place] [address]Dr. Abhinav Laguna MCV (RBC) [Entitic vol] 83.4 fL Normal 80.0-94.0 [facility] Comment on above: Performed By: #### C BC ####[facility] Folyrtqstf[address] [place], [place] [address]DrNohemi Laguna MONO # 0.7 103/ul Normal 0.3-0.8 [facility] Comment on above: Performed By: #### C BC ####[facility] Iulgvphxww3267 [place] [address]Dr. Abhinav Laguna Monocytes/100 WBC (Bld) 7.3 % Normal 1.7-12.0 [facility] Comment on above: Performed By: #### C BC ####[facility] Rtdhnkaiae0217 [place] [address]Dr. Abhinav Laguna NEUT # 5.5 103/ul Normal 1.4-6.5 [facility] Comment on above: Performed By: #### C BC ####[facility] Twzxzipdfm3181 [place] [address]Dr. Abhinav Laguna Neutrophils/100 WBC (Bld) 62.1 % Normal 43.0-75.0 [facility] Comment on above: Performed By: #### C BC ####[facility] Cwcysgaosf10[address] [place] [address]Dr. Abhinav Laguna Platelet mean volume (Bld) [Entitic vol] 11.6 fL Normal 9.5-13.5 [facility] Comment on above: Performed By: #### C BC ####[facility] Ikifkmeaqb0732 [place] [address]Dr. Abhinav Laguna PLT 195 103/ul Normal 150-450 [facility] Comment on above: Performed By: #### C BC ####[facility] Snzigeeezx3137 [place] [address]Dr. Abhinav Laguna RBC 5.05 106/ul Normal 4.70-6.10 [facility] Comment on above: Performed By: #### C BC ####[facility] Hjuaffuopk5054 [place] [address]Dr. Abhinav Laguna WBC 8.9 103/ul Normal 4.0-11.0 [facility] Comment on above: Performed By: #### C BC ####[facility] Ratyjeyldb0054 [place] [id number]. Abhinav Laguna CT CSPINE WO CONon 3 CT CSPINE WO CON Normal [facility] CT STROKE HEAD WOon 08-21-[address] STROKE HEAD WO Normal [facility]on SARS-CoV-2 (COVID-19) RNA EVERT+probe Ql (Unsp spec) Not detected Normal NOT DETECTED [facility] Comment on above: Result Comment: When diagnostic [...] for this test is supported by the [place] of Health and Human Service's declaration that [...] longer be used). Performed By: #### C VDTB ####[facility] Bzldsctese104[address] [place], [place] [address]Dr. [facility] DRUG SCREEN RAPID (URINE)on 08-21-2022 AMP Positive Abnormal NEGATIVE [facility] Comment on above: Performed By: #### E RUR, DRUGRPD ####[facility] Yrbnfxravn2948[address] [place], [place] [address]Dr. gallo [facility] BAR Negative Normal NEGATIVE [facility] Comment on above: Performed By: #### E RUR, DRUGRPD ####[facility] Idkklofnyh7858[address] [place], [place] [address]Dr. gallo Laguna BUP Negative Normal NEGATIVE [facility] Comment on above: Performed By: #### E RUR, DRUGRPD ####[facility] Xonsklsifb5194[address] [place], [place] [address]Dr. [facility] BZO Negative Normal NEGATIVE [facility] Comment on above: Performed By: #### E RUR, DRUGRPD ####[facility] Dlagaextlt258[address] [place], [place] [address]Dr. Abhinav [facility] ISELA Negative Normal NEGATIVE [facility] Comment on above: Performed By: #### E RUR, DRUGRPD ####[facility] Qysccocihj5140[address] [place], [place] [address]Dr. Abhinav Laguna CUT-OFFS SEE BELOW Normal [facility] Comment on above: Result Comment: AMP (Amphetamine): 500ng/mL, BAR (Barbituates): 200 ng/mL, BZO (Benzodiazepines): 150 ng/mL, BUP (Buprenorphine): 10 ng/mL, ISELA (Cocaine): 150 ng/mL, mAMP (Methamphetamine): 500 ng/mL, MTD (Methadone): 200 ng/mL, OPI (Opiates): 100 ng/mL, OXY (Oxycodone): 100 ng/mL, PCP (Phencyclidine): 25 ng/mL, PPX (Propoxyphene): 300 ng/mL, THC (Cannabinoids): 50 ng/mL, TCA (Trycyclic Antidepressants): 300 ng/mL Performed By: #### E RUR, DRUGRPD ####[facility] Vbpvlaemaa7[address] [place], [place] [address]Dr. Abhinav Laguna DRUG CUT HEADER DRUG CLASS TEST SYST EM CUT-OFF CONCENTRATIONS ARE FOLLOWS: Normal [facility] Comment on above: Performed By: #### Lon RUR, DRUGRPD ####[facility] Rupesppxok385[address] [place], [place] [address]Dr. Abhinav Laguna mAMP Positive Abnormal NEGATIVE [facility] Comment on above: Performed By: #### E RUR, DRUGRPD ####[facility] Unsmnxeddy[address]134[address] [place], [place] [address]Dr. Abhinav Laguna MTD Negative Normal NEGATIVE [facility] Comment on above: Performed By: #### E RUR, DRUGRPD ####[facility] Dxdzymiqfc1589[address] [place], [place] [address]Dr. Abhinav Laguna OPI Negative Normal NEGATIVE [facility] Comment on above: Performed By: #### E RUR, DRUGRPD ####[facility] Ikikktrfor728967 [address] [place], [place] [address]Dr. Abhinav Laguna OXY Negative Normal NEGATIVE [facility] Comment on above: Performed By: #### E RUR, DRUGRPD ####[facility] Mkgfnktsgt598[address] [place], [place] [address]Dr. Abhinav Laguna PCP Negative Normal NEGATIVE [facility] Comment on above: Performed By: #### E RUR, DRUGRPD ####[facility] Fqdzxhtrlc9[address] [place], [place] [address]Dr. Abhinav Laguna PPX Negative Normal NEGATIVE [facility] Comment on above: Performed By: #### E RUR, DRUGRPD ####[facility] Kurgkvttgy8376[address] [place], [place] [address]Dr. Abhinav Laguna TCA Negative Normal NEGATIVE [facility] Comment on above: Performed By: #### E RUR, DRUGRPD ####[facility] Akympgczpr1216[address] [place], [place] [address]Dr. Abhinav Laguna THC Positive Abnormal NEGATIVE [facility] Comment on above: Performed By: #### E RUR, DRUGRPD ####[facility] Maxekqflkd5775[address] [place], [place] [address]Dr. Abhinav Laguna ER URINE PROFILEon 3 Bilirubin Ql (U) Negative Normal NEGATIVE [facility] Comment on above: Performed By: #### E RUR, DRUGRPD ####[facility] Armsjmwfeg3222[address] [place], [place] [address]Dr. Abhinav Laguna Clarity (U) CLEAR Normal CLEAR [facility] Comment on above: Performed By: #### E RUR, DRUGRPD ####[facility] Fghyzhkfju6147[address] [place], [place] [address]Dr. Abhinav Laguna Color (U) LT. YELLOW Normal YELLOW [facility] Comment on above: Performed By: #### E RUR, DRUGRPD ####[facility] Monunmqhyf9824[address] [place], [place] [address]Dr. Abhinav Laguna ERUAHD A micrscopic examina tion will be performed if indicated. Normal [facility] Comment on above: Performed By: #### E RUR, DRUGRPD ####[facility] Spsisxyplv5680[address] [place], [place] [address]Dr. Abhinav Laguna Glucose Ql (U) 1000 mg/dl Abnormal NEGATIVE The [facility] Comment on above: Performed By: #### E RUR, DRUGRPD ####[facility] Ingwojjnyg9660[address] [place], [place] [address]Dr. Mirandagallo Laguna Hemoglobin Ql (U) Negative Normal NEGATIVE [facility] Comment on above: Performed By: #### E RUR, DRUGRPD ####[facility] Fmemiybjqu1508[address] [place], [place] [address]Dr. Abhinav Laguna Ketones Ql (U) Negative Normal NEGATIVE The [facility] Comment on above: Performed By: #### Lon RUR, DRUGRPD ####[facility] Oojmzqevpn0716[address] [place], [place] [address]Dr. Abhinav Jase LEUKOCYTES Negative Normal NEGATIVE [facility] Comment on above: Performed By: #### Lon RUDale DRUGRPD ####[facility] Zggohmosjq3916[address] [place], [place] [address]Dr. Abhinav Laguna Nitrite Ql (U) Negative Normal NEGATIVE The [facility] Comment on above: Performed By: #### Lon RUDale DRUGRPD ####[facility] Nupikcxerp[address] [place], [place] [address]Dr. Abhinav Laguna pH (U) 5.5 [pH] Normal 5-9 [facility] Comment on above: Performed By: #### Lon RUDale DRUGRPD ####[facility] Ptcykyfxxb9312[address] [place], [place] [address]Dr. Abhinav Laguna SPEC GRAVITY 1.010 Normal 1.005-<=1. 025 [facility] Comment on above: Performed By: #### Lon RUDale DRUGRPD ####[facility] Mzlgqoyend09[address] [place], [place] [address]Dr. Abhinav Laguna UA PROTEIN Negative Normal NEGATIVE/ TRACE [facility] Comment on above: Performed By: #### Lon RUDale DRUGRPD ####[facility] Givmxdtelf078[address] [place], [place] [address]Dr. Abhinav Laguna UR MICRO IND NOT INDICATED Normal [facility] Comment on above: Performed By: #### E RUR, DRUGRPD ####[facility] Rczojyanxc124[address] [place], [place] [address]Dr. Abhinav Laguna Urobilinogen Qn (U) 0.2 {Marshall'U}/dL Normal 0.2 - 1. 0 [facility] Comment on above: Performed By: #### E RUR, DRUGRPD ####[facility] Gcdugxapfw[address] [place] [address]Dr. Abhinav Laguna ETHANOL (BLD ALC)on 08-21-19 ALC NOTE NOTE: 80 mg/dl is th e legal limit for a blood alcohol level Normal [facility] Comment on above: Performed By: #### E TH ####[facility] Myivxwsvtc8[address] [place] [address]Dr. Abhinav Laguna Ethanol [Mass/Vol] mg/dL Normal [facility] Comment on above: Performed By: #### E TH ####[facility] Viorhuuurg[address] [place], [place] [address]Dr. Abhinav Laguna LACTATE/LACTIC ACIDon 2022 Lactate [Moles/Vol] 1.4 mmol/L Normal 0.4-1.9 [facility] Comment on above: Performed By: #### L ACT ####[facility] Iamsvphvja97[address] [place], [place] [address]Dr. Abhinav Laguna Lactate [Moles/Vol] 3.5 mmol/L Critically high 0.4-1.9 [facility] Comment on above: Performed By: #### L ACT ####[facility] Sbciprmolw[address] [place], [place] [address]Dr. Abhinav Laguna POINT OF CARE GLUCOSEon Glucose [Mass/Vol] 202 mg/dL Critically high 74-106 [facility] Comment on above: Performed By: #### P OCGLUC ####[facility] Jqcyulaylg14[address] [place], [place] [address]Dr. Abhinav Laguna Glucose [Mass/Vol] 303 mg/dL Critically high -106 [facility] Comment on above: Performed By: #### P OCGLUC ####[facility] Migtlphcce[address] [place], [place] [address]Dr. Abhinav Laguna Glucose [Mass/Vol] 388 mg/dL Critically high -106 [facility] Comment on above: Performed By: #### P OCGLUC ####[facility] Zjxuvtugzb5246 [place] [address]Dr. Abhinav Laguna Glucose [Mass/Vol] 491 mg/dL Critically high 74-106 [facility] Comment on above: Performed By: #### P OCGLUC ####[facility] Pvoaecqwwi70[address] [place] [address]Dr. Abhinav Laguna POCGLUC >600 Critically high 74-106 [facility] Comment on above: Result Comment: Prev iously Confirmed Performed By: #### P OCGLUC ####[facility] Ipiiuqybbf[address] [place] [address]Dr. Abhinav Laguna POCGLUC >600 Critically high 74-106 [facility] Comment on above: Result Comment: Prev iously Confirmed Performed By: #### P OCGLUC ####[facility] Ddrlaabtsc[address] [place] [address]Dr. Abhinav Laguna PROF 14(COMP METB)on 023 Albumin [Mass/Vol] 3.0 g/dL Critically low 3.4-5.0 [facility] Comment on above: Performed By: #### B SIGN LANGUAGE TEACHER, CMP, TSH, CMADM ####[facility] Ntyjyxfjrz[address] [place] [address]Dr. Abhinav Laguna Albumin/Globulin [Mass ratio] 0.9 {ratio} Normal [facility] Comment on above: Performed By: #### B SIGN LANGUAGE TEACHER, CMP, TSH, CMADM ####[facility] Ftuqyernak[address] [place] [address]Dr. Abhinav Laguna ALP [Catalytic activity/Vol] 219 U/L Critically high 46-116 [facility] Comment on above: Performed By: #### B SIGN LANGUAGE TEACHER, CMP, TSH, CMADM ####[facility] Uipodzfhze[address] [place] [address]Dr. Abhinav [place]una ALT [Catalytic activity/Vol] 43 U/L Normal 16-63 [facility] Comment on above: Performed By: #### B SIGN LANGUAGE TEACHER, CMP, TSH, CMADM ####[facility] [address] [place] [address]Dr. Abhinav Laguna Anion gap [Moles/Vol] 14.4 mmol/L Normal [facility] Comment on above: Performed By: #### B SIGN LANGUAGE TEACHER, CMP, TSH, CMADM ####[facility] Czqmnzqn[address] [place] [address]Dr. Abhinav Laguna AST [Catalytic activity/Vol] 24 U/L Normal 15-37 [facility] Comment on above: Performed By: #### B SIGN LANGUAGE TEACHER, CMP, TSH, CMADM ####[facility] O[address]vmugdtv[address] [place] [address]Dr. Abhinav Laguna Bilirubin [Mass/Vol] 0.7 mg/dL Normal 0.2-1.0 [facility] Comment on above: Performed By: #### B SIGN LANGUAGE TEACHER, CMP, TSH, CMADM ####[facility] Wdcjh[address] [place], [place] [address]Dr. Abhinav Laguna Calcium [Mass/Vol] 9.8 mg/dL Normal 8.5-10.1 [facility] Comment on above: Performed By: #### B SIGN LANGUAGE TEACHER, CMP, TSH, CMADM ####[facility] Xqpyuwnwek[address] [place] [address]Dr. Abhinav Laguna Chloride [Moles/Vol] 88 mmol/L Critically low 98-107 [facility] Comment on above: Performed By: #### B SIGN LANGUAGE TEACHER, CMP, TSH, CMADM ####[facility] Wcrfntbvtg[address] [place] [address]Dr. Abhinav Laguna CO2 [Moles/Vol] 23.3 mmol/L Normal 21.0-32.0 [facility] Comment on above: Performed By: #### B SIGN LANGUAGE TEACHER, CMP, TSH, CMADM ####[facility] [address]jtfkylrq[address] [place], [place] [address]Dr. Abhinav Laguna Creatinine [Mass/Vol] 1.44 mg/dL Critically high 0.70-1.30 [facility] Comment on above: Performed By: #### B SIGN LANGUAGE TEACHER, CMP, TSH, CMADM ####[facility] Mudcaziorv[address] [place], [place] [address]Dr. Abhinav Laguna EGFR-AF SALVADOREAN 60 mL/min/1.73m2 Normal >=60 [facility] Comment on above: Performed By: #### B SIGN LANGUAGE TEACHER, CMP, TSH, CMADM ####[facility] Sbyxjwngdx[address] [place] [address]Dr. Abhinav Laguna EGFR-NON AF SALVADOREAN 50 mL/min/1.73m2 Critically low >=60 [facility] Comment on above: Performed By: #### B SIGN LANGUAGE TEACHER, CMP, TSH, CMADM ####[facility] Rcsqgtsblp[address] [place] [address]Dr. Abhinav Laguna Globulin (S) [Mass/Vol] 3.4 g/dL Normal [facility] Comment on above: Performed By: #### B SIGN LANGUAGE TEACHER, CMP, TSH, CMADM ####[facility] Gabwawstek[address] [place] [address]Dr. Abhinav Laguna Glucose [Mass/Vol] 782 mg/dL Critically high 74-106 T [facility] Comment on above: Performed By: #### B SIGN LANGUAGE TEACHER, CMP, TSH, CMADM ####[facility] Dvgipftodg[address] [place] [address]Dr. Abhinav Laguna Potassium [Moles/Vol] 3.7 mmol/L Normal 3.5-5.1 [facility] Comment on above: Performed By: #### B SIGN LANGUAGE TEACHER, CMP, TSH, CMADM ####[facility] Kfraaqfjjs[address] [place] [address]Dr. Abhinav Laguna Protein [Mass/Vol] 6.4 g/dL Normal 6.4-8.2 [facility] Comment on above: Performed By: #### B SIGN LANGUAGE TEACHER, CMP, TSH, CMADM ####[facility] Eizbdtptjj24[address] [place] [address]Dr. Abhinav Laguna Sodium [Moles/Vol] 122 mmol/L Critically low 136-145 [facility] Comment on above: Performed By: #### B SIGN LANGUAGE TEACHER, CMP, TSH, CMADM ####[facility] Gwunalhgii[address] [place] [address]Dr. Abhinav Laguna Urea nitrogen [Mass/Vol] 32.0 mg/dL Critically high 7.0-18.0 [facility] Comment on above: Performed By: #### B SIGN LANGUAGE TEACHER, CMP, TSH, CMADM ####[facility] Zlkvivpiky[address] [place] [address]Dr. Abhinav Laguna Urea nitrogen/Creatinine [Mass ratio] 22.2 mg/mg Normal [facility] Comment on above: Performed By: #### B SIGN LANGUAGE TEACHER, CMP, TSH, CMADM ####[facility] Ecgsoqxvkh[address] [place] [address]Dr. Abhinav Laguna PROF CHEM 8 (BAS METB)on Anion gap [Moles/Vol] 10.3 mmol/L Normal [facility] Comment on above: Performed By: #### B MP ####[facility] Ukjpykvpzb[address] [place], [place] [address]Dr. Abhinav Laguna Calcium [Mass/Vol] 8.8 mg/dL Normal 8.5-10.1 [facility] Comment on above: Performed By: #### B MP ####[facility] Mykckcxjrs[address] [place], [place] [address]Dr. Abhinav Laguna Chloride [Moles/Vol] 106 mmol/L Normal 98-107 [facility] Comment on above: Performed By: #### B MP ####[facility] Tbimlclyjs[address] [place], [place] [address]Dr. Abhinav Laguna CO2 [Moles/Vol] 22.2 mmol/L Normal 21.0-32.0 [facility] Comment on above: Performed By: #### B MP ####[facility] Qtuwannmsx19[address] [place] [address]Dr. Abhinav Laguna Creatinine [Mass/Vol] 1.01 mg/dL Normal 0.70-1.30 [facility] Comment on above: Performed By: #### B MP ####[facility] Ilotwostkw[address] [place], [place] [address]Dr. Abhinav Laguna EGFR-AF SALVADOREAN >60 Normal >=60 [facility] Comment on above: Performed By: #### B MP ####[facility] Gitcctnzkx4[address] [place], [place] [address]Dr. Abhinav Laguna EGFR-NON AF SALVADOREAN >60 Normal >=60 [facility] Comment on above: Performed By: #### B MP ####[facility] Vfiubdogfd7238 [place] [address]Dr. Abhinav Laguna Glucose [Mass/Vol] 159 mg/dL Critically high 74-106 T [facility] Comment on above: Performed By: #### B MP ####[facility] Mfbjjwlkpn5093 [place] [address]Dr. Abhinav Laguna Potassium [Moles/Vol] 3.5 mmol/L Normal 3.5-5.1 [facility] Comment on above: Performed By: #### B MP ####[facility] Iaowcilrlb[address] [place], [place] [address]Dr. Abhinav Laguna Sodium [Moles/Vol] 135 mmol/L Critically low 136-145 [facility] Comment on above: Performed By: #### B MP ####[facility] Nptvhqjhea[address] [place], [place] [address]Dr. Abhinav Laguna Urea nitrogen [Mass/Vol] 32.0 mg/dL Critically high 7.0-18.0 [facility] Comment on above: Performed By: #### B MP ####[facility] Tspaygotrw[address] [place], [place] [address]Dr. Abhinav Laguna Urea nitrogen/Creatinine [Mass ratio] 31.7 mg/mg Normal [facility] Comment on above: Performed By: #### B MP ####[facility] Uzidaewtvh[address] [place], [place] [address]Dr. Abhinav Laguna PROTIMEon 08-21-2022 INR Coag (PPP) [Relative time] 0.99 {INR} Normal [facility] Comment on above: Performed By: #### P TT, PT ####[facility] Nnwrjyijyb[address] [place], [place] [address]Dr. Abhinav Laguna INR GUIDELINES SEE BELOW Normal [facility] Comment on above: Result Comment: FABRICE RED INR: 2.0 - 3.0 CONDITIONS NOT LISTED BELOW 2.5 - 3.5 FOR PROSTHETIC HEART VALVE REPLACEMENT 2.5 - 3.5 RECURRENT THROMBOSIS Performed By: #### P TT, PT ####[facility] Pjxdsfjnsz52[address] [place] [address]Dr. Abhinav Laguna PT Coag (PPP) [Time] 10.7 s Normal 9.0-11.6 [facility] Comment on above: Performed By: #### P TT, PT ####[facility] Ssnrsvwvvk[address] [place], [place] [address]Dr. Abhinav Laguna PTTon 08-21-2022 aPTT Coag (Bld) [Time] 25.4 s Normal 22.3-36.2 Th e [facility] Comment on above: Performed By: #### P TT, PT ####[facility] Vzsg[address]qrou01[address] [place], [place] [address]Dr. Abhinav Laguna TSHon 08-21-2022 TSH 3.175 uIU/mL Normal 0.358-3.74 0 [facility] Comment on above: Performed By: #### B SIGN LANGUAGE TEACHER, CMP, TSH, CMADM ####[facility] Uoiwzuhguq9[address] [place], [place] [address]Dr. Abhinav Laguna XR CHEST 1 Von 08-21-2022 XR CHEST 1 V Normal [facility] CBC AUTO DIFFon 07-28-2022 BASO # 0.0 103/ul Normal 0.0-0.1 [facility] Comment on above: Performed By: #### C BC ####[facility] Qbbybrsnca[address] [place], [place] [address]Dr. Mirandagallo Laguna Basophils/100 WBC (Bld) 0.5 % Normal 0.2-2.0 [facility] Comment on above: Performed By: #### C BC ####[facility] Fhgsengjsq499[address] [place], [place] [address]Dr. Abhinav Jase EO # 0.1 103/ul Normal 0.0-0.7 [facility] Comment on above: Performed By: #### C BC ####[facility] Fsqthvqsja07[address] [place], [place] [address]Dr. Abhinav Laguna Eosinophils/100 WBC (Bld) 1.5 % Normal 0.9-7.0 [facility] Comment on above: Performed By: #### C BC ####[facility] Bpoeyvyhhg5387 [place] [address]Dr. Abhinav Laguna Erythrocyte distribution width (RBC) [Ratio] 11.9 % Normal 11.0-15.0 [facility] Comment on above: Performed By: #### C BC ####[facility] Uldksuiwiy[address] [place], [place] [address]Dr. Abhinav Laguna Hematocrit (Bld) [Volume fraction] 48.7 % Normal 42.0-54.0 [facility] Comment on above: Performed By: #### C BC ####[facility] Qacnpxooex[address] [place], [place] [address]Dr. Abhinav Laguna Hemoglobin (Bld) [Mass/Vol] 17.3 g/dL Normal 14.0-18.0 [facility] Comment on above: Performed By: #### C BC ####[facility] Cwijrgpbxb[address] [place], [place] [address]Dr. Abhinav Laguna IG # 0.02 10e3/ul Normal 0.00-0.03 [facility] Comment on above: Performed By: #### C BC ####[facility] Opaqnditvz[address] [place], [place] [address]Dr. Abhinav Laguna IG % 0.3 % Normal 0.0-0.5 [facility] Comment on above: Performed By: #### C BC ####[facility] Whlaxolzip[address] [place], [place] [address]Dr. Abhinav Laguna LYMPH # 2.9 103/ul Normal 1.2-3.8 [facility] Comment on above: Performed By: #### C BC ####[facility] Yrvqmxpawg[address] [place], [place] [address]Dr. Abhinav Laguna Lymphocytes/100 WBC (Bld) 46.3 % Normal 20.5-60.0 [facility] Comment on above: Performed By: #### C BC ####[facility] Djphcixviz[address] [place], [place] [address]Dr. Abhinav Laguna MANUAL DIFF REQ NO Normal [facility] Comment on above: Performed By: #### C BC ####[facility] Sukluthnxa[address]87 [place] [address]Dr. Abhinav Jase MCH (RBC) [Entitic mass] 30.3 pg Normal 25.9-34.0 [facility] Comment on above: Performed By: #### C BC ####[facility] Jsqceaeeic3[address] [place] [address]Dr. Abhinav Jase MCHC (RBC) [Mass/Vol] 35.5 g/dL Critically high 29.9-35.2 [facility] Comment on above: Performed By: #### C BC ####[facility] Wpleuvrbqd2844 [place] [address]Dr. Mirandagallo Laguna MCV (RBC) [Entitic vol] 85.3 fL Normal 80.0-94.0 [facility] Comment on above: Performed By: #### C BC ####[facility] Ispgsyltqg20[address] [place], [place] [address]Dr. Abhinav Laguna MONO # 0.5 103/ul Normal 0.3-0.8 [facility] Comment on above: Performed By: #### C BC ####[facility] Wdomwwnqam10[address] [place], [place] [address]Dr. Mirandagallo Laguna Monocytes/100 WBC (Bld) 7.9 % Normal 1.7-12.0 [facility] Comment on above: Performed By: #### C BC ####[facility] Oywhopdxbt[address] [place], [place] [address]Dr. Abhinav Laguna NEUT # 2.7 103/ul Normal 1.4-6.5 [facility] Comment on above: Performed By: #### C BC ####[facility] Rfevqdunte4[address] [place], [place] [address]Dr. Abhinav Laugna Neutrophils/100 WBC (Bld) 43.5 % Normal 43.0-75.0 [facility] Comment on above: Performed By: #### C BC ####[facility] Jruzatystw[address] [place], [place] [address]Dr. Abhinav Laguna Platelet mean volume (Bld) [Entitic vol] 10.7 fL Normal 9.5-13.5 [facility] Comment on above: Performed By: #### C BC ####[facility] Vjmyxbsbpv8[address] [place] [address]Dr. Abhinav Laguna PLT 202 103/ul Normal 150-450 [facility] Comment on above: Performed By: #### C BC ####[facility] Kogkrobaci5097 [place] [address]Dr. Abhinav Laguna RBC 5.71 106/ul Normal 4.70-6.10 [facility] Comment on above: Performed By: #### C BC ####[facility] Qhxyqzgkme1089 [place] [address]Dr. Abhinav Laguna WBC 6.2 103/ul Normal 4.0-11.0 [facility] Comment on above: Performed By: #### C BC ####[facility] Uaezcxcxpf[address] [place], [place] [address]Dr. Abhinav Laguna GLYCOHEMOGLOBIN A1Con 2021 ADA RECOMMENDATION SEE BELOW Normal [facility] Comment on above: Result Comment: ADA RECOMMENDED LIMIT 4.0 - 6.0 ADA THERAPEUTIC TARGET < 7.0 ACTION SUGGESTED > 7.0 Performed By: #### A 1C ####[facility] Scwizfsxtm[address] [place], [place] [address]Dr. Abhinav Laguna Glucose [Mass/Vol] 272 mg/dL Normal [facility] Comment on above: Performed By: #### A 1C ####[facility] Cdburkqpwa[address] [place], [place] [address]Dr. Abhinav Laguna HbA1c (Bld) [Mass fraction] 11.1 % Critically high 4.5-6.2 [facility] Comment on above: Performed By: #### A 1C ####[facility] Xvqukuthhd[address] [place], [place] [address]Dr. Abhinav Laguna LIPID PROFILEon 07-28-2022 CHOL-HDL RATIO NORM SEE BELOW Normal [facility] Comment on above: Result Comment: 3.3 - 4.4 LOW RISK 4.4 - 7.1 AVERAGE RISK 7.1 - 11.0 MODERATE RISK >11.0 HIGH RISK Performed By: #### L IPID, CMP ####[facility] [address]ut[address] [place], [place] [address]Gf. Abhinav Laguna Cholesterol [Mass/Vol] 200 mg/dL Normal <=200 [facility] Comment on above: Performed By: #### L IPID, CMP ####[facility] [address] [place] [id number]. Abhinav Laguna Cholesterol in HDL [Mass/Vol] 50 mg/dL Normal 40-60 [facility] Comment on above: Performed By: #### L IPID, CMP ####[facility] Dspfgutaxi6659 [place] [id number]. Abhinav Laguna Cholesterol in LDL [Mass/Vol] 125.6 mg/dL Normal [facility] Comment on above: Performed By: #### L IPID, CMP ####[facility] Rlxcsvjunm7701 [place] [id number]. Mirandagallo Jase Cholesterol.total/Chol esterol in HDL [Mass ratio] 4.0 {ratio} Normal [facility] Comment on above: Performed By: #### L IPID, CMP ####[facility] Aqdiqqrags8343 [place] [id number]. Mirandalan Laguna HDL NORMAL > or = 60 mg/dl - LO W CARDIOVASCULAR RISK <40 mg/dl - HIGH CARDIOVASCULAR RISK Normal [facility] Comment on above: Performed By: #### L IPID, CMP ####[facility] Kxwbakklby25[address] [place] [id number]. Abhinav Laguna LDL CALC NORMAL SEE BELOW Normal [facility] Comment on above: Result Comment: <100 mg/dl OPTIMAL 100 - 129 mg/dl NEAR OR ABOVE OPTIMAL 130 - 159 mg/dl BORDERLINE HIGH 160 - 189 mg/dl HIGH >190 mg/dl VERY HIGH Performed By: #### L IPID, CMP ####[facility] Nrfqkzgwfb2277 [place] [id number]. Abhinav Laguna Triglyceride [Mass/Vol] 122 mg/dL Normal <=150 [facility] Comment on above: Performed By: #### L IPID, CMP ####[facility] Oledtscvre7972 [place] [id number]. Abhinav Laguna VLDL CALC 24.4 mg/dL Normal [facility] Comment on above: Performed By: #### L IPID, CMP ####[facility] Dzscmwdeyv3132 [place] [address]Dr. Abhinav Laguna PROF 14(COMP METB)on 022 Albumin [Mass/Vol] 2.6 g/dL Critically low 3.4-5.0 [facility] Comment on above: Performed By: #### L IPID, CMP ####[facility] Ohtbympddu08[address] [place] [address]Dr. Abhinav Laguna Albumin/Globulin [Mass ratio] 0.6 {ratio} Normal [facility] Comment on above: Performed By: #### L IPID, CMP ####[facility] Yogxobelxc[address] [place], [place] [address]Dr. Abhinav Laguna ALP [Catalytic activity/Vol] 247 U/L Critically high 46-116 [facility] Comment on above: Performed By: #### L IPID, CMP ####[facility] Ghzpvhqyqu01[address] [place] [address]Dr. Abhinav Laguna ALT [Catalytic activity/Vol] 33 U/L Normal 16-63 [facility] Comment on above: Performed By: #### L IPID, CMP ####[facility] Fuqjvdlvvq8822 [place] [address]Dr. Abhinav Laguna Anion gap [Moles/Vol] 7.7 mmol/L Normal [facility] Comment on above: Performed By: #### L IPID, CMP ####[facility] Ysjniwhhug38[address] [place] [address]Dr. Abhinav Laguna AST [Catalytic activity/Vol] 19 U/L Normal 15-37 [facility] Comment on above: Performed By: #### L IPID, CMP ####[facility] Jrdmnbuuqz039[address] [place] [address]Dr. Abhinav Laguna Bilirubin [Mass/Vol] 0.2 mg/dL Normal 0.2-1.0 [facility] Comment on above: Performed By: #### L IPID, CMP ####[facility] Vduaiedzfy3203 [place] [address]Dr. Abhinav Laguna Calcium [Mass/Vol] 9.7 mg/dL Normal 8.5-10.1 [facility] Comment on above: Performed By: #### L IPID, CMP ####[facility] Htwaubzlku98[address] [place] [address]Dr. Abhinav Laguna Chloride [Moles/Vol] 101 mmol/L Normal 98-107 [facility] Comment on above: Performed By: #### L IPID, CMP ####[facility] Knyrbztsuu[address] [place] [address]Dr. Abhniav Laguna CO2 [Moles/Vol] 30.8 mmol/L Normal 21.0-32.0 [facility] Comment on above: Performed By: #### L IPID, CMP ####[facility] Chrjrorxyv[address] [place], [place] [address]Dr. Abhinav Laguna Creatinine [Mass/Vol] 0.84 mg/dL Normal 0.70-1.30 [facility] Comment on above: Performed By: #### L IPID, CMP ####[facility] Nnfmkfuxhg[address] [place], [place] [address]Dr. Abhinav Laguna EGFR-AF SALVADOREAN >60 Normal >=60 [facility] Comment on above: Performed By: #### L IPID, CMP ####[facility] Qxfcmhirul81[address] [place], [place] [address]Dr. Abhinav Laguna EGFR-NON AF SALVADOREAN >60 Normal >=60 [facility] Comment on above: Performed By: #### L IPID, CMP ####[facility] Dwsbfnaydc6[address] [place], [place] [address]Dr. Abhinav Laguna Globulin (S) [Mass/Vol] 4.1 g/dL Normal [facility] Comment on above: Performed By: #### L IPID, CMP ####[facility] Lcuqbszjud44[address] [place], [place] [address]Dr. Abhinav Laguna Glucose [Mass/Vol] 265 mg/dL Critically high 74-106 [facility] Comment on above: Performed By: #### L IPID, CMP ####[facility] Zlxsuimaem9449 [place] [address]Dr. Abhinav Laguna Potassium [Moles/Vol] 4.5 mmol/L Normal 3.5-5.1 [facility] Comment on above: Performed By: #### L IPID, CMP ####[facility] Mfdbwwzgsi34[address] [place], [place] [address]Dr. Abhinav Laguna Protein [Mass/Vol] 6.7 g/dL Normal 6.4-8.2 [facility] Comment on above: Performed By: #### L IPID, CMP ####[facility] Jonoitvmrv12[address] [place], [place] [address]Dr. Abhinav Laguna Sodium [Moles/Vol] 135 mmol/L Critically low 136-145 [facility] Comment on above: Performed By: #### L IPID, CMP ####[facility] Sgkfcqkrap6[address] [place], [place] [address]Dr. Abhinav Laguna Urea nitrogen [Mass/Vol] 18.0 mg/dL Normal 7.0-18.0 [facility] Comment on above: Performed By: #### L IPID, CMP ####[facility] Ioplmnmrrd32[address] [place], [place] [address]Dr. Abhinav Laguna Urea nitrogen/Creatinine [Mass ratio] 21.4 mg/mg Normal [facility] Comment on above: Performed By: #### L IPID, CMP ####[facility] Jfmvdlihwn[address] [place], [place] [address]Dr. Abhinav Laguna SED RATE WESTERGRENon 2021 SED RATE 28 mm/hr Critically high <=20 [facility] Comment on above: Performed By: #### S EDR ####[facility] Ydsiteovsg[address] [place], [place] [address]Dr. Abhinav Laguna XR FOOT RT MIN 3 VIEWSon XR FOOT RT MIN 3 VIEWS Normal [facility] CBC AUTO DIFFon 02-09-2022 BASO # 0.0 103/ul Normal 0.0-0.1 [facility] Comment on above: Performed By: #### C BC ####[facility] Quzmrxggna4062 [place] [id number]. Abhinav Laguna Basophils/100 WBC (Bld) 0.4 % Normal 0.2-2.0 [facility] Comment on above: Performed By: #### C BC ####[facility] Lodbgbqcef[address] [place] [id number]. Abhinav Laguna EO # 0.1 103/ul Normal 0.0-0.7 [facility] Comment on above: Performed By: #### C BC ####[facility] Wpyxzogtrz[address] [place], [place] [address]Dr. Abhinav Laguna Eosinophils/100 WBC (Bld) 1.5 % Normal 0.9-7.0 [facility] Comment on above: Performed By: #### C BC ####[facility] [address]jnlbjff[address] [place], [place] [address]Dr. Abhinav Laguna Erythrocyte distribution width (RBC) [Ratio] 12.4 % Normal 11.0-15.0 [facility] Comment on above: Performed By: #### C BC ####[facility] Egrujehdtv[address] [place], [place] [address]Dr. Abhinav Laguna Hematocrit (Bld) [Volume fraction] 38.2 % Critically low 42.0-54.0 [facility] Comment on above: Performed By: #### C BC ####[facility] [address] [place], [place] [address]Dr. Abhinav Laguna Hemoglobin (Bld) [Mass/Vol] 13.9 g/dL Critically low 14.0-18.0 [facility] Comment on above: Performed By: #### C BC ####[facility] [address]xhqurlvm[address] [place], [place] [address]Dr. Abhinav Laguna IG # 0.05 10e3/ul Critically high 0.00-0.03 [facility] Comment on above: Performed By: #### C BC ####[facility] Vxegrcoxdx[address] [place], [place] [address]Dr. Abhinav Laguna IG % 0.6 % Critically high 0.0-0.5 [facility] Comment on above: Performed By: #### C BC ####[facility] Mdzovqviwu98[address] [place] [id number]. Abhinav Jase LYMPH # 2.2 103/ul Normal 1.2-3.8 [facility] Comment on above: Performed By: #### C BC ####[facility] Afhpusfeki4861 [place] [id number]. Abhinav Jase Lymphocytes/100 WBC (Bld) 26.9 % Normal 20.5-60.0 [facility] Comment on above: Performed By: #### C BC ####[facility] Zuwkpobhcc6[address] [place] [id number]. Abhinav Laguna MANUAL DIFF REQ NO Normal [facility] Comment on above: Performed By: #### C BC ####[facility] Jliaqzycmy3458 [place] [id number]. Abhinav Jase MCH (RBC) [Entitic mass] 31.6 pg Normal 25.9-34.0 [facility] Comment on above: Performed By: #### C BC ####[facility] Tcoxfkcnnh9347 [place] [id number]. Abhinav Laguna MCHC (RBC) [Mass/Vol] 36.4 g/dL Critically high 29.9-35.2 [facility] Comment on above: Performed By: #### C BC ####[facility] Ixhvtxkojo5059 [place] [id number]. Abhinav Laguna MCV (RBC) [Entitic vol] 86.8 fL Normal 80.0-94.0 [facility] Comment on above: Performed By: #### C BC ####[facility] Swrcnncstk2823 [place] [id number]. Abhinav Jase MONO # 0.5 103/ul Normal 0.3-0.8 The [facility] Comment on above: Performed By: #### C BC ####[facility] Pkeschitkm67[address] [place] [id number]. Abhinav Laguna Monocytes/100 WBC (Bld) 6.2 % Normal 1.7-12.0 [facility] Comment on above: Performed By: #### C BC ####[facility] Aczgmuvdkc1705 [place] [id number]. Abhinav Laguna NEUT # 5.2 103/ul Normal 1.4-6.5 [facility] Comment on above: Performed By: #### C BC ####[facility] Bjstgdjjem6364 [place] [id number]. Abhinav Laguna Neutrophils/100 WBC (Bld) 64.4 % Normal 43.0-75.0 [facility] Comment on above: Performed By: #### C BC ####[facility] Qpjnhlwcsi1380 [place] [id number]. Abhinav Laguna Platelet mean volume (Bld) [Entitic vol] 10.8 fL Normal 9.5-13.5 [facility] Comment on above: Performed By: #### C BC ####[facility] Lslsvsajdw54[address] [place] [address]Dr. Abhinav Laguna PLT 226 103/ul Normal 150-450 [facility] Comment on above: Performed By: #### C BC ####[facility] Unihatjpky0933 [place] [id number]. Abhinav Laguna RBC 4.40 106/ul Critically low 4.70-6.10 [facility] Comment on above: Performed By: #### C BC ####[facility] Epzxplmmbt8959 [place] [address]Dr. Abhinav Laguna WBC 8.0 103/ul Normal 4.0-11.0 [facility] Comment on above: Performed By: #### C BC ####[facility] Gchvasdtdo7358 [place] [id number]. Abhinav Laguna POINT OF CARE GLUCOSEon 01-16 Glucose [Mass/Vol] 360 mg/dL Critically high 74-106 [facility] Comment on above: Performed By: #### P OCGLUC ####[facility] Mgiflfkycj1300 [place] [id number]. Abhinav Laguna PROF CHEM 8 (BAS METB)on Anion gap [Moles/Vol] 13.6 mmol/L Normal Th e [facility] Comment on above: Performed By: #### B MP ####[facility] Rclwtrwdhh19[address] [place] [address]Dr. Abhinav Laguna Calcium [Mass/Vol] 9.1 mg/dL Normal 8.5-10.1 [facility] Comment on above: Performed By: #### B MP ####[facility] Bowsuimnxe[address] [place] [address]Dr. Abhinav Laguna Chloride [Moles/Vol] 102 mmol/L Normal 98-107 [facility] Comment on above: Performed By: #### B MP ####[facility] Ijpkbvbsfl[address] [place], [place] [address]Dr. Abhinav Laguna CO2 [Moles/Vol] 21.9 mmol/L Normal 21.0-32.0 [facility] Comment on above: Performed By: #### B MP ####[facility] Ewfooclvna[address] [place], [place] [address]Dr. Abhinav Laguna Creatinine [Mass/Vol] 0.89 mg/dL Normal 0.70-1.30 [facility] Comment on above: Performed By: #### B MP ####[facility] Lyazzuhbso[address] [place], [place] [address]Dr. Abhinav Laguna EGFR-AF SALVADOREAN >60 Normal >=60 [facility] Comment on above: Performed By: #### B MP ####[facility] Bdrkuzphlq33[address] [place], [place] [address]Dr. Mirandagallo Jase EGFR-NON AF SALVADOREAN >60 Normal >=60 [facility] Comment on above: Performed By: #### B MP ####[facility] Iyaaqzahdh1286 [place] [address]Dr. Mirandagallo Laguna Glucose [Mass/Vol] 394 mg/dL Critically high 74-106 [facility] Comment on above: Performed By: #### B MP ####[facility] Ubjlqvjzyf3114 [place] [address]Dr. Abhinav Laguna Potassium [Moles/Vol] 4.5 mmol/L Normal 3.5-5.1 [facility] Comment on above: Performed By: #### B MP ####[facility] Aopbqmfaqf0854 [place] [id number]. Abhinav Laguna Sodium [Moles/Vol] 133 mmol/L Critically low 136-145 Th e [facility] Comment on above: Performed By: #### B MP ####[facility] Xqcutkdhan5676 [place] [id number]. Abhinav Laguna Urea nitrogen [Mass/Vol] 21.0 mg/dL Critically high 7.0-18.0 [facility] Comment on above: Performed By: #### B MP ####[facility] Hjigidsazx[address] [place], [place] [address]Dr. Abhinav Jase Urea nitrogen/Creatinine [Mass ratio] 23.6 mg/mg Normal [facility] Comment on above: Performed By: #### B MP ####[facility] Xqdkwznarc3560[address] [place], [place] [address]Dr. Abhinav Jase ACETONE SERUMon 02-08-2022 ACETONE Negative Normal NEGATIVE [facility] Comment on above: Performed By: #### A CETON ####[facility] Qudvkdnlcu335[address] [place], [place] [address]Dr. Abhinav Jase CBC AUTO DIFFon 02-08-2022 BASO # 0.1 103/ul Normal 0.0-0.1 [facility] Comment on above: Performed By: #### C BC ####[facility] Gkguctfcxa7975[address] [place], [place] [address]Dr. Abhinav Jase Basophils/100 WBC (Bld) 0.8 % Normal 0.2-2.0 [facility] Comment on above: Performed By: #### C BC ####[facility] Oazhhqurdl5[address] [place], [place] [address]Dr. Abhinav Laguna EO # 0.2 103/ul Normal 0.0-0.7 [facility] Comment on above: Performed By: #### C BC ####[facility] Mrfwhuilfj[address] [place], [place] [address]Dr. Abhinav Laguna Eosinophils/100 WBC (Bld) 1.9 % Normal 0.9-7.0 [facility] Comment on above: Performed By: #### C BC ####[facility] Vklowniqrk0669 [place] [address]Dr. Abhinav Laguna Erythrocyte distribution width (RBC) [Ratio] 12.3 % Normal 11.0-15.0 [facility] Comment on above: Performed By: #### C BC ####[facility] Xhlmteegfp0123[address] [place], [place] [address]Dr. Abhinav Laguna Hematocrit (Bld) [Volume fraction] 46.1 % Normal 42.0-54.0 [facility] Comment on above: Performed By: #### C BC ####[facility] Dkkhtjmrvz5[address] [place], [place] [address]Dr. Abhinav Laguna Hemoglobin (Bld) [Mass/Vol] 17.0 g/dL Normal 14.0-18.0 [facility] Comment on above: Performed By: #### C BC ####[facility] Rvbkmnlvsr211[address] [place], [place] [address]Dr. Abhinav Laguna IG # 0.04 10e3/ul Critically high 0.00-0.03 [facility] Comment on above: Performed By: #### C BC ####[facility] Jowgoztusj78[address] [place], [place] [address]Dr. Abhinav Laguna IG % 0.4 % Normal 0.0-0.5 [facility] Comment on above: Performed By: #### C BC ####[facility] Qcqgteasez1625[address] [place], [place] [address]Dr. Abhinav Laguna LYMPH # 2.5 103/ul Normal 1.2-3.8 [facility] Comment on above: Performed By: #### C BC ####[facility] Bbxskcmjzk9617[address] [place], [place] [address]Dr. Abhinav Laguna Lymphocytes/100 WBC (Bld) 27.4 % Normal 20.5-60.0 [facility] Comment on above: Performed By: #### C BC ####[facility] Damhpklerp005[address] [place], [place] [address]Dr. Abhinav Laguna MANUAL DIFF REQ NO Normal [facility] Comment on above: Performed By: #### C BC ####[facility] Fqhaxqsgrq6468 [place] [phone]. Abhinav Jase MCH (RBC) [Entitic mass] 31.7 pg Normal 25.9-34.0 [facility] Comment on above: Performed By: #### C BC ####[facility] Dqyiscfevy5781 [place] [address]Dr. Abhinav Lagnua MCHC (RBC) [Mass/Vol] 36.9 g/dL Critically high 29.9-35.2 [facility] Comment on above: Performed By: #### C BC ####[facility] Iirkjacqgg2506 [place] [address]Dr. Abhinav Jase MCV (RBC) [Entitic vol] 86.0 fL Normal 80.0-94.0 [facility] Comment on above: Performed By: #### C BC ####[facility] Zuetocijyu[address] [place], [place] [address]Dr. Abhinav Laguna MONO # 0.6 103/ul Normal 0.3-0.8 [facility] Comment on above: Performed By: #### C BC ####[facility] Mhjokfafba7925[address] [place], [place] [address]Dr. Mirandagallo Laguna Monocytes/100 WBC (Bld) 6.4 % Normal 1.7-12.0 [facility] Comment on above: Performed By: #### C BC ####[facility] Rtuuzfchfa[address] [place], [place] [address]Dr. Abhinav Laguna NEUT # 5.7 103/ul Normal 1.4-6.5 [facility] Comment on above: Performed By: #### C BC ####[facility] Vrsshtjzxd0923[address] [place], [place] [address]Dr. Abhinav Laguna Neutrophils/100 WBC (Bld) 63.1 % Normal 43.0-75.0 [facility] Comment on above: Performed By: #### C BC ####[facility] Tkxlsuvsrs0[address] [place], [place] [address]Dr. Abhinav Laguna Platelet mean volume (Bld) [Entitic vol] 11.8 fL Normal 9.5-13.5 [facility] Comment on above: Performed By: #### C BC ####[facility] Mzaatbtfye2751 [place] [id number]. Abhinav Laguna PLT 256 103/ul Normal 150-450 [facility] Comment on above: Performed By: #### C BC ####[facility] Urgdpyasqo4124 [place], [place] [address]Qq. Abhinav Laguna RBC 5.36 106/ul Normal 4.70-6.10 [facility] Comment on above: Performed By: #### C BC ####[facility] Anucwaqxio1492 [place], [place] [address]Aw. Abhinav Laguna WBC 9.0 103/ul Normal 4.0-11.0 [facility] Comment on above: Performed By: #### C BC ####[facility] Wxdfqruncq9203 [place] [id number]. Abhinav Laguna CULTURE BLOODon 02-08-2022 Microscopic examination of blood, culture Culture Observations: NO GROWTH AT 5 DAYS. Normal [facility] Comment on above: Performed By: #### B LDCX2 ####[facility] Fzivdgglwa7643 [place] [id number]. Abhinav Laguna Microscopic examination of blood, culture Culture Observations: NO GROWTH AT 5 DAYS. Normal [facility] Comment on above: Performed By: #### B LDCX1 ####[facility] Kkrchbszym[address] [place], [place] [address]Dr. Abhinav Laguna Covid-19 PCR (CVDTB)on 01-16 SARS-CoV-2 (COVID-19) RNA EVERT+probe Ql (Unsp spec) Not detected Normal NOT DETECTED [facility] Comment on above: Result Comment: When diagnostic [...] for this test is supported by the [place] [employer] of [employer] and Human Service's declaration that [...] longer be used). Performed By: #### [facility] ####[facility] Llmrlsewwr[address] [place], [place] [address]Dr. Abhinav Laguna ER URINE PROFILEon 2 Bilirubin Ql (U) Negative Normal NEGATIVE The [facility] Comment on above: Performed By: #### E RUR ####[facility] Ytzybuiyrk[address] [place], [place] [address]Dr. Abhinav Laguna Clarity (U) CLEAR Normal CLEAR [facility] Comment on above: Performed By: #### E RUR ####[facility] Wuamvnjgmh5324[address] [place], [place] [address]Dr. Abhinav Laguna Color (U) LT. YELLOW Normal YELLOW [facility] Comment on above: Performed By: #### E RUR ####[facility] Bhqphomfve97[address] [place], [place] [address]Dr. Abhinav Laguna ERUAHD A micrscopic examina tion will be performed if indicated. Normal [facility] Comment on above: Performed By: #### E RUR ####[facility] Bfonodxsds6[address] [place], [place] [address]Dr. Abhinav Laguna Glucose Ql (U) >1000 Abnormal NEGATIVE The [facility] Comment on above: Performed By: #### E RUR ####[facility] Umszghoduy16[address] [place], [place] [address]Dr. Abhinav Laguna Hemoglobin Ql (U) Negative Normal NEGATIVE [facility] Comment on above: Performed By: #### E RUR ####[facility] Pdzbcoczqe[address] [place], [place] [address]Dr. Abhinav Laguna Ketones Ql (U) Negative Normal NEGATIVE The [facility] Comment on above: Performed By: #### E RUR ####[facility] Lagmhcxrur55[address] [place] [address]Dr. Mirandagallo Laguna LEUKOCYTES Negative Normal NEGATIVE [facility] Comment on above: Performed By: #### E RUR ####[facility] Ansimrolss0232 [place] [address]Dr. Abhinav Laguna Nitrite Ql (U) Negative Normal NEGATIVE The [facility] Comment on above: Performed By: #### E RUR ####[facility] Zbmsgojaeo3[address] [place], [place] [address]Dr. Mirandagallo Laguna pH (U) 6.5 [pH] Normal 5-9 [facility] Comment on above: Performed By: #### E RUR ####[facility] Jdgwxnfbfk8004[address] [place], [place] [address]Dr. Abhinav Laguna SPEC GRAVITY 1.010 Normal 1.005-<=1. 025 [facility] Comment on above: Performed By: #### E RUR ####[facility] Mfvjdhrnql0[address] [place], [place] [address]Dr. Abhinav Laguna UA PROTEIN Negative Normal NEGATIVE/ TRACE [facility] Comment on above: Performed By: #### E RUR ####[facility] Qvolknayyz6917[address] [place], [place] [address]Dr. Abhinav Laguna UR MICRO IND NOT INDICATED Normal [facility] [place] [facility] Comment on above: Performed By: #### E RUR ####[facility] Fzjinrswxh8[address] [place], [place] [address]Dr. Abhinav Laguna Urobilinogen Qn (U) 1.0 {Marshall'U}/dL Normal 0.2 - 1. 0 [facility] Comment on above: Performed By: #### E RUR ####[facility] Gnshmmfaom87[address] [place], [place] [address]Dr. Abhinav Laguna LACTATE/LACTIC ACIDon 2021 Lactate [Moles/Vol] 1.2 mmol/L Normal 0.4-1.9 [facility] Comment on above: Performed By: #### L ACT ####[facility] Uwisqwgnvg15[address] [place], [place] [address]Dr. Abhinav Laguna Lactate [Moles/Vol] 1.7 mmol/L Normal 0.4-1.9 [facility] Comment on above: Performed By: #### L ACT ####[facility] Goleaijkvr25[address] [place] [address]Dr. Abhinav Laguna PH VENOUS BLOODon 02-08-2022 PCO2 VENOUS 48.3 mmHg Normal 40.0-52.0 [facility] Comment on above: Performed By: #### P HVEN ####[facility] Sqeyqmlxou7745 [place] [address]Dr. Abhinav Laguna pH VENOUS 7.373 Normal 7.330-7.43 0 [facility] Comment on above: Performed By: #### P HVEN ####[facility] Susvfwekdi8667[address] [place], [place] [address]Dr. Abhinav Laguna POINT OF CARE GLUCOSEon 01-16 Glucose [Mass/Vol] 198 mg/dL Critically high -[address] [place] [address] Comment on above: Performed By: #### P OCGLUC ####[facility] Dmepvrphdd9068 [place] [address]Dr. Abhinav Laguna Glucose [Mass/Vol] 303 mg/dL Critically high -[address] [place] [address] Comment on above: Performed By: #### P OCGLUC ####[facility] Hiahqanand9675 [place] [address]Dr. Abhinav Laguna Glucose [Mass/Vol] 503 mg/dL Critically high -106 [facility] Comment on above: Result Comment: Will Repeat Test Performed By: #### P OCGLUC ####[facility] Mjkygxtrhr4715 [place] [address]Dr. Abhinav Laguna Glucose [Mass/Vol] 538 mg/dL Critically high -106 [facility] Comment on above: Result Comment: Prev iously Confirmed Performed By: #### P OCGLUC ####[facility] Eyphoxeuow4[address] [place], [place] [address]Dr. Abhinav Laguna Glucose [Mass/Vol] 594 mg/dL Critically high -106 [facility] Comment on above: Result Comment: Will Repeat Test Performed By: #### P OCGLUC ####[facility] Vngkcbsxlq0918 [place] [address]Dr. Abhinav Laguna POCGLUC >600 Critically high 74-106 [facility] Comment on above: Result Comment: Resu lt Not Confirmed Performed By: #### P OCGLUC ####[facility] Aqgqmxqvth4027 [place] [address]Dr. Abhinav Laguna PROF 14(COMP METB)on 022 Albumin [Mass/Vol] 3.5 g/dL Normal 3.4-5.0 [facility] Comment on above: Performed By: #### C MP ####[facility] Vfthpmtdsv0[address] [place], [place] [address]Dr. Abhinav Laguna Albumin/Globulin [Mass ratio] 0.9 {ratio} Normal [facility] Comment on above: Performed By: #### C MP ####[facility] Pblpnjtnab[address] [place], [place] [address]Dr. Abhinav Laguna ALP [Catalytic activity/Vol] 420 U/L Critically high 46-116 [facility] Comment on above: Performed By: #### C MP ####[facility] Uxxneidvze174[address] [place], [place] [address]Dr. Abhinav Laguna ALT [Catalytic activity/Vol] 44 U/L Normal 16-63 [facility] Comment on above: Performed By: #### C MP ####[facility] Bfylfwcuka18[address] [place], [place] [address]Dr. Abhinav Laguna Anion gap [Moles/Vol] 13.5 mmol/L Normal [facility] Comment on above: Performed By: #### C MP ####[facility] Lhlqtmqxxh88[address] [place], [place] [address]Dr. Abhinav Laguna AST [Catalytic activity/Vol] 18 U/L Normal 15-37 [facility] Comment on above: Performed By: #### C MP ####[facility] Jhggaxrepp[address] [place], [place] [address]Dr. Abhinav Laguna Bilirubin [Mass/Vol] 0.6 mg/dL Normal 0.2-1.0 [facility] Comment on above: Performed By: #### C MP ####[facility] Udqatfpcmr2647 [place] [address]Dr. Abhinav Laguna Calcium [Mass/Vol] 9.8 mg/dL Normal 8.5-10.1 [facility] Comment on above: Performed By: #### C MP ####[facility] Wmlisnaaey4072 [place] [address]Dr. Abhinav Laguna Chloride [Moles/Vol] 90 mmol/L Critically low 98-107 [facility] Comment on above: Performed By: #### C MP ####[facility] Fnyvkbywlb0060 [place] [address]Dr. Abhinav Laguna CO2 [Moles/Vol] 26.7 mmol/L Normal 21.0-32.0 [facility] Comment on above: Performed By: #### C MP ####[facility] Jiticusewd[address] [place], [place] [address]Dr. Abhinav Laguna Creatinine [Mass/Vol] 1.12 mg/dL Normal 0.70-1.30 [facility] Comment on above: Performed By: #### C MP ####[facility] Tuvnuzfhgh3197 [place] [address]Dr. Abhinav Laguna EGFR-AF SALVADOREAN >60 Normal >=60 [facility] Comment on above: Performed By: #### C MP ####[facility] Gymbvdmyhh7[address] [place] [address]Dr. Abhinav Laguna EGFR-NON AF SALVADOREAN >60 Normal >=60 [facility] Comment on above: Performed By: #### C MP ####[facility] Vduqiuatgn0281 [place] [address]Dr. Abhinav Laguna Globulin (S) [Mass/Vol] 3.8 g/dL Normal [facility] Comment on above: Performed By: #### C MP ####[facility] Qgopteludr9029 [place] [address]Dr. Abhinav Laguna Glucose [Mass/Vol] 756 mg/dL Critically high 74-106 [facility] Comment on above: Performed By: #### C MP ####[facility] Tjjrobcnga85[address] [place], [place] [address]Dr. Abhinav Laguna Potassium [Moles/Vol] 5.2 mmol/L Critically high 3.5-5.1 [facility] Comment on above: Performed By: #### C MP ####[facility] Wspppbkany60[address] [place], [place] [address]Dr. Mirandagallo Laguna Protein [Mass/Vol] 7.3 g/dL Normal 6.4-8.2 [facility] Comment on above: Performed By: #### C MP ####[facility] Nxzehtxghh[address] [place], [place] [address]Dr. Abhinav Jase Sodium [Moles/Vol] 125 mmol/L Critically low 136-145 [facility] Comment on above: Performed By: #### C MP ####[facility] Wkidhcjdej9067[address] [place], [place] [address]Dr. Abhinav Laguna Urea nitrogen [Mass/Vol] 18.0 mg/dL Normal 7.0-18.0 [facility] Comment on above: Performed By: #### C MP ####[facility] Xzhkndqolh[address] [place], [place] [address]Dr. Mirandagallo Laguna Urea nitrogen/Creatinine [Mass ratio] 16.1 mg/mg Normal [facility] Comment on above: Performed By: #### C MP ####[facility] Eepagubzse268[address] [place], [place] [address]Dr. Abhinav Laguna CBC AUTO DIFFon 12-19-2021 BASO # 0.1 103/ul Normal 0.0-0.1 [facility] Comment on above: Performed By: #### C BC ####[facility] Fsforacecl8649[address] [place], [place] [address]Dr. Abhinav Laguna Basophils/100 WBC (Bld) 0.7 % Normal 0.2-2.0 [facility] Comment on above: Performed By: #### C BC ####[facility] Zoahdojjdv2949[address] [place], [place] [address]Dr. Abhinav Laguna EO # 0.3 103/ul Normal 0.0-0.7 [facility] Comment on above: Performed By: #### C BC ####[facility] Gfbbfdupbi8248 [place] [address]Dr. Abhinav Laguna Eosinophils/100 WBC (Bld) 3.5 % Normal 0.9-7.0 [facility] Comment on above: Performed By: #### C BC ####[facility] Efjyokcydh9264 [place] [address]Dr. Abhinav Laguna Erythrocyte distribution width (RBC) [Ratio] 12.2 % Normal 11.0-15.0 [facility] Comment on above: Performed By: #### C BC ####[facility] Oluxrffuqe[address] [place], [place] [address]Dr. Abhinav Laguna Hematocrit (Bld) [Volume fraction] 44.0 % Normal 42.0-54.0 [facility] Comment on above: Performed By: #### C BC ####[facility] Fibaqzzvew8[address] [place], [place] [address]Dr. Abhinav Laguna Hemoglobin (Bld) [Mass/Vol] 15.4 g/dL Normal 14.0-18.0 [facility] Comment on above: Performed By: #### C BC ####[facility] Mypmcgmdsy37[address] [place], [place] [address]Dr. Abhinav Laguna IG # 0.02 10e3/ul Normal 0.00-0.03 [facility] Comment on above: Performed By: #### C BC ####[facility] Azzzpqqdqx7[address] [place], [place] [address]Dr. Abhinav Laguna IG % 0.2 % Normal 0.0-0.5 [facility] Comment on above: Performed By: #### C BC ####[facility] Hciwxtdbml0214[address] [place], [place] [address]Dr. Abhinav Laguna LYMPH # 3.0 103/ul Normal 1.2-3.8 [facility] Comment on above: Performed By: #### C BC ####[facility] Gwcnpxrmur[address] [place], [place] [address]Dr. Abhinav Laguna Lymphocytes/100 WBC (Bld) 34.8 % Normal 20.5-60.0 [facility] Comment on above: Performed By: #### C BC ####[facility] Dybsswfeao9657 [place] [id number]. Abhinav Laguna MANUAL DIFF REQ NO Normal [facility] Comment on above: Performed By: #### C BC ####[facility] Ttgxdwvftn6222 [place] [address]Dr. Abhinav Laguna MCH (RBC) [Entitic mass] 30.6 pg Normal 25.9-34.0 [facility] Comment on above: Performed By: #### C BC ####[facility] Fjvpenuoav2348 [place] [address]Dr. Abhinav Laguna MCHC (RBC) [Mass/Vol] 35.0 g/dL Normal 29.9-35.2 [facility] Comment on above: Performed By: #### C BC ####[facility] Uivszrezlt[address] [place], [place] [address]Dr. Abhinav Laguna MCV (RBC) [Entitic vol] 87.5 fL Normal 80.0-94.0 [facility] Comment on above: Performed By: #### C BC ####[facility] Qqykuxfqnt[address] [place], [place] [address]Dr. Abhinav Laguna MONO # 0.7 103/ul Normal 0.3-0.8 [facility] Comment on above: Performed By: #### C BC ####[facility] Qvalxmvfmt[address] [place], [place] [address]Dr. Abhinav Laguna Monocytes/100 WBC (Bld) 8.0 % Normal 1.7-12.0 [facility] Comment on above: Performed By: #### C BC ####[facility] Zekwjtwlnl[address] [place], [place] [address]Dr. Abhinav Laguna NEUT # 4.5 103/ul Normal 1.4-6.5 [facility] Comment on above: Performed By: #### C BC ####[facility] O[address]qv[address]ux[address] [place], [place] [id number]. Abhinav Laguna Neutrophils/100 WBC (Bld) 52.8 % Normal 43.0-75.0 [facility] Comment on above: Performed By: #### C BC ####[facility] [address]we[address] [place] [address]Dr. Abhinav Laguna Platelet mean volume (Bld) [Entitic vol] 11.1 fL Normal 9.5-13.5 [facility] Comment on above: Performed By: #### C BC ####[facility] Wvymxtzfoh[address] [place] [address]Dr. Abhinav Laguna PLT 253 103/ul Normal 150-450 [facility] Comment on above: Performed By: #### C BC ####[facility] Jfqnlfojsy[address] [place] [address]Dr. Abhinav Laguna RBC 5.03 106/ul Normal 4.70-6.10 [facility] Comment on above: Performed By: #### C BC ####[facility] Pvpksomroa[address] [place], [place] [address]Dr. Abhinav Laguna WBC 8.6 103/ul Normal 4.0-11.0 [facility] Comment on above: Performed By: #### C BC ####[facility] Ledsyormdd[address] [place], [place] [address]Dr. Abhinav Laguna PROF 14(COMP METB)on 022 Albumin [Mass/Vol] 2.8 g/dL Critically low 3.4-5.0 Th e [facility] Comment on above: Performed By: #### C MP ####[facility] Ijzfttostw[address] [place], [place] [address]Dr. Abhinav Laguna Albumin/Globulin [Mass ratio] 0.9 {ratio} Normal [facility] Comment on above: Performed By: #### C MP ####[facility] Ddmdpyxpsj[address] [place], [place] [address]Dr. Abhinav Laguna ALP [Catalytic activity/Vol] 146 U/L Critically high 46-116 [facility] Comment on above: Performed By: #### C MP ####[facility] Otbsbpvtrf[address] [place] [address]Dr. Abhinav Laguna ALT [Catalytic activity/Vol] 47 U/L Normal 16-63 The [facility] Comment on above: Performed By: #### C MP ####[facility] Fjwiwkmwul[address] [place] [address]Dr. Abhinav Laguna Anion gap [Moles/Vol] 7.8 mmol/L Normal [facility] Comment on above: Performed By: #### C MP ####[facility] Oprlmsvkpt[address] [place] [address]Dr. Abhinav Laguna AST [Catalytic activity/Vol] 22 U/L Normal 15-37 The [facility] Comment on above: Performed By: #### C MP ####[facility] Odfiwwsnhy[address] [place] [address]Dr. Abhinav Laguna Bilirubin [Mass/Vol] 0.4 mg/dL Normal 0.2-1.0 [facility] Comment on above: Performed By: #### C MP ####[facility] Dhighmxqtr15[address] [place], [place] [address]Dr. Abhinav Laguna Calcium [Mass/Vol] 8.8 mg/dL Normal 8.5-10.1 [facility] Comment on above: Performed By: #### C MP ####[facility] Hbuthirwil07[address] [place], [place] [address]Dr. Abhinav Laguna Chloride [Moles/Vol] 103 mmol/L Normal 98-107 [facility] Comment on above: Performed By: #### C MP ####[facility] Cmgoxwqpjd024[address] [place], [place] [address]Dr. Abhinav Laguna CO2 [Moles/Vol] 25.7 mmol/L Normal 21.0-32.0 The [facility] Comment on above: Performed By: #### C MP ####[facility] Lxwrtxahck50[address] [place], [place] [address]Dr. Abhinav Laguna Creatinine [Mass/Vol] 0.79 mg/dL Normal 0.70-1.30 The [facility] Comment on above: Performed By: #### C MP ####[facility] Zvycrxpriw[address] [place] [address]Dr. Abhinav Laguna EGFR-AF SALVADOREAN >60 Normal >=60 The [facility] Comment on above: Performed By: #### C MP ####[facility] Xnimqdgmpo[address] [place] [address]Dr. Abhinav Laguna EGFR-NON AF SALVADOREAN >60 Normal >=60 [facility] Comment on above: Performed By: #### C MP ####[facility] Lbueieevku[address] [place] [address]Dr. bAhinav Laguna Globulin (S) [Mass/Vol] 3.1 g/dL Normal [facility] Comment on above: Performed By: #### C MP ####[facility] Spnbinlbdw5[address] [place] [address]Dr. Abhinav Laguna Glucose [Mass/Vol] 194 mg/dL Critically high 74-106 T [facility] Comment on above: Performed By: #### C MP ####[facility] Nlfxjwagvi9[address] [place], [place] [address]Dr. Abhinav Laguna Potassium [Moles/Vol] 3.5 mmol/L Normal 3.5-5.1 [facility] Comment on above: Performed By: #### C MP ####[facility] Pbrosmadak89[address] [place], [place] [address]Dr. Abhinav Laguna Protein [Mass/Vol] 5.9 g/dL Critically low 6.1-8.2 Th [facility] Comment on above: Performed By: #### C MP ####[facility] Exonmjaajz33[address] [place], [place] [address]Dr. Abhinav Laguna Sodium [Moles/Vol] 133 mmol/L Critically low 136-145 Th [facility] Comment on above: Performed By: #### C MP ####[facility] Aazuviowua11[address] [place], [place] [address]Dr. Abhinav Laguna Urea nitrogen [Mass/Vol] 11.0 mg/dL Normal 7.0-18.0 [facility] Comment on above: Performed By: #### C MP ####[facility] Wbashdsccn[address] [place], [place] [address]Dr. Abhinav Laguna Urea nitrogen/Creatinine [Mass ratio] 13.9 mg/mg Normal [facility] Comment on above: Performed By: #### C MP ####[facility] Ybjivthbwh[address] [place] [address]Dr. Abhinav Laguna ACETONE SERUMon 12-18-2021 ACETONE SMALL Abnormal NEGATIVE The [facility] Comment on above: Performed By: #### A CETON ####[facility] Gqjfugvoab[address] [place] [address]Dr. Abhinav Laguna CBC AUTO DIFFon 12-18-2021 BASO # 0.1 103/ul Normal 0.0-0.1 The [facility] Comment on above: Performed By: #### C BC ####[facility] Mwgqojwgcq68[address] [place], [place] [address]Dr. Abhinav Laguna Basophils/100 WBC (Bld) 0.8 % Normal 0.2-2.0 The [facility] Comment on above: Performed By: #### C BC ####[facility] Vhrwlwsodh[address] [place], [place] [address]Dr. Abhinav Laguna EO # 0.2 103/ul Normal 0.0-0.7 The [facility] Comment on above: Performed By: #### C BC ####[facility] Gdqfiqarjv[address] [place], [place] [address]Dr. Abhinav Laguna Eosinophils/100 WBC (Bld) 1.6 % Normal 0.9-7.0 The [facility] Comment on above: Performed By: #### C BC ####[facility] Hwwdhlcpnd34[address] [place] [address]Dr. Abhinav Laguna Erythrocyte distribution width (RBC) [Ratio] 12.2 % Normal 11.0-15.0 The [facility] Comment on above: Performed By: #### C BC ####[facility] Ewwkkiyvgq4865[address] [place], [place] [address]Dr. Abhinav Laguna Hematocrit (Bld) [Volume fraction] 47.9 % Normal 42.0-54.0 The [facility] Comment on above: Performed By: #### C BC ####[facility] Zpfkagchjq6[address] [place], [place] [address]Dr. Abhinav Laguna Hemoglobin (Bld) [Mass/Vol] 17.3 g/dL Normal 14.0-18.0 The [facility] Comment on above: Performed By: #### C BC ####[facility] Vblasntfnz47[address] [place] [address]Dr. Abhinav Laguna IG # 0.03 10e3/ul Normal 0.00-0.03 [facility] Comment on above: Performed By: #### C BC ####[facility] Zcbinncbbw4[address] [place] [address]Dr. Abhinav Laguna IG % 0.3 % Normal 0.0-0.5 The [facility] Comment on above: Performed By: #### C BC ####[facility] Ehlpcqposq[address] [place] [address]Dr. Abhinav Laguna LYMPH # 1.7 103/ul Normal 1.2-3.8 The [facility] Comment on above: Performed By: #### C BC ####[facility] Chzzdvizcx04[address] [place] [address]Dr. Mirandagallo Laguna Lymphocytes/100 WBC (Bld) 18.9 % Critically low 20.5-60.0 The [facility] Comment on above: Performed By: #### C BC ####[facility] Pdgqoacorf[address] [place] [address]Dr. Abhinav Laguna MANUAL DIFF REQ NO Normal [facility] Comment on above: Performed By: #### C BC ####[facility] Zigxmgeayx5[address] [place] [address]Dr. Abhinav Laguna MCH (RBC) [Entitic mass] 31.2 pg Normal 25.9-34.0 The [facility] Comment on above: Performed By: #### C BC ####[facility] Qumrbzbdwy7238 [place] [address]Dr. Abhinav Laguna MCHC (RBC) [Mass/Vol] 36.1 g/dL Critically high 29.9-35.2 The [facility] Comment on above: Performed By: #### C BC ####[facility] Egejifkaza4[address] [place] [address]Dr. Abhinav Laguna MCV (RBC) [Entitic vol] 86.5 fL Normal 80.0-94.0 The [facility] Comment on above: Performed By: #### C BC ####[facility] Parknauoxd[address] [place] [address]Dr. Abhinav Laguna MONO # 0.5 103/ul Normal 0.3-0.8 The [facility] Comment on above: Performed By: #### C BC ####[facility] Abufxdtrzc39[address] [place] [address]Dr. Abhinav Laguna Monocytes/100 WBC (Bld) 5.6 % Normal 1.7-12.0 The [facility] Comment on above: Performed By: #### C BC ####[facility] Gxqsgujrzx6724 [place] [address]Dr. Abhinav Laguna NEUT # 6.6 103/ul Critically high 1.4-6.5 The [facility] Comment on above: Performed By: #### C BC ####[facility] Adhchraxia7804 [place] [address]Dr. Abhinav Laguna Neutrophils/100 WBC (Bld) 72.8 % Normal 43.0-75.0 The [facility] Comment on above: Performed By: #### C BC ####[facility] Dqoznbuxzl9499 [place] [address]Dr. Abhinav Laguna Platelet mean volume (Bld) [Entitic vol] 11.3 fL Normal 9.5-13.5 [facility] Comment on above: Performed By: #### C BC ####[facility] Wpwilzctdj8028 [place] [address]Dr. Abhinav Laguna PLT 278 103/ul Normal 150-450 [facility] Comment on above: Performed By: #### C BC ####[facility] Quyvkrlxdq1115 [place] [address]Dr. Abhinav Laguna RBC 5.54 106/ul Normal 4.70-6.10 [facility] Comment on above: Performed By: #### C BC ####[facility] Lslyhcbzka8382 [place] [address]Dr. Abhinav Laguna WBC 9.1 103/ul Normal 4.0-11.0 [facility] Comment on above: Performed By: #### C BC ####[facility] Afpwxpqtjc[address] [place], [place] [address]Dr. Mirandagallo Laguna Covid-19 PCR (CVDTB)on SARS-CoV-2 (COVID-19) RNA EVERT+probe Ql (Unsp spec) Not detected Normal NOT DETECTED The [facility] Comment on above: Result Comment: When diagnostic testing is negative, the possibility of a false negative should be considered inthe context of a patient's recent exposures and the presence of clinical signs and symptomsconsistent with SARS-CoV-2.This test is not yet approved or cleared by the [place] Food and Drug Administration (FDA).This test was developed by [employer], [place], [place]. The performance characteristics ofthis test were validated by The [facility]. The results are not intended to beused as the sole means for clinical diagnosis or patient management decisions. The [facility] is authorized under Clinical Laboratory Improvement [...] for this test is supported by the [place] of Health and Human Service's declaration that [...] be used). Performed By: #### C VDTBH ####[facility] Lzmzngrepp15[address] [place] [id number]. Abhinav Laguna ER URINE PROFILEon 2 Bilirubin Ql (U) Negative Normal NEGATIVE The [facility] Comment on above: Performed By: #### E RUR ####[facility] Nicmdykeib0237 [place] [id number]. Abhinav Laguna Clarity (U) CLEAR Normal CLEAR [facility] Comment on above: Performed By: #### E RUR ####[facility] Hqyqydopba3[address] [place] [address]Dr. Abhinav Laguna Color (U) LT. YELLOW Normal YELLOW The [facility] Comment on above: Performed By: #### E RUR ####[facility] Ymhxwtarha[address] [place], [place] [address]Dr. Abhinav Laguna ERUAHD A micrscopic examina tion will be performed if indicated. Normal The [facility] Comment on above: Performed By: #### E RUR ####[facility] Zgpvvurzjg[address] [place], [place] [address]Dr. Abhinav Laguna Glucose Ql (U) >1000 Abnormal NEGATIVE The [facility] Comment on above: Performed By: #### E RUR ####[facility] Ktbowozxje8538[address] [place], [place] [address]Dr. Abhinav Laguna Hemoglobin Ql (U) Negative Normal NEGATIVE The [facility] Comment on above: Performed By: #### E RUR ####[facility] Zbpcetwdwc9[address] [place], [place] [address]Dr. Abhinav Laguna Ketones Ql (U) TRACE Abnormal NEGATIVE The [facility] Comment on above: Performed By: #### E RUR ####[facility] Cyhlwxfckg[address] [place], [place] [address]Dr. Abhinav Laguna LEUKOCYTES Negative Normal NEGATIVE The [facility] Comment on above: Performed By: #### E RUR ####[facility] Iztjiogktl314[address] [place], [place] [address]Dr. Abhinav Laguna Nitrite Ql (U) Negative Normal NEGATIVE The [facility] Comment on above: Performed By: #### E RUR ####[facility] Dormivmhnz8684[address] [place], [place] [address]Dr. Abhinav Laguna pH (U) 6.5 [pH] Normal 5-9 [facility] Comment on above: Performed By: #### E RUR ####[facility] Xxebezfgky01[address] [place], [place] [address]Dr. Abhinav Laguna SPEC GRAVITY <=1.005 Abnormal 1.005-<=1. 025 The [facility] Comment on above: Performed By: #### E RUR ####[facility] Fecrudzlwy[address] [place] [address]Dr. Abhinav Laguna UA PROTEIN Negative Normal NEGATIVE/ TRACE The [facility] Comment on above: Performed By: #### E RUR ####[facility] Ueubkfwpie7[address] [place], [place] [address]Dr. Abhinav Laguna UR MICRO IND NOT INDICATED Normal [facility] Comment on above: Performed By: #### E RUR ####[facility] Khltkqmfro467[address] [place], [place] [address]Dr. Abhinav Laguna Urobilinogen Qn (U) 0.2 {Marshall'U}/dL Normal 0.2 - 1. 0 [facility] Comment on above: Performed By: #### E RUR ####[facility] Irywzdvcze11[address] [place], [place] [address]Dr. Abhinav Laguna PH VENOUS BLOODon 12-18-2021 PCO2 VENOUS 45.4 mmHg Normal 40.0-52.0 [facility] Comment on above: Performed By: #### P HVEN ####[facility] Lrerzphjxl[address] [place], [place] [address]Dr. Abhinav Laguna pH VENOUS 7.385 Normal 7.330-7.43 0 [facility] Comment on above: Performed By: #### P HVEN ####[facility] Zysrmwldvi122[address] [place], [place] [address]Dr. Abhinav Laguna POINT OF CARE GLUCOSEon 05-0 Glucose [Mass/Vol] 363 mg/dL Critically high 74-106 [facility] Comment on above: Performed By: #### P OCGLUC ####[facility] Zxskvustvz9[address] [place], [place] [address]Dr. Abhinav Laguna Glucose [Mass/Vol] 453 mg/dL Critically high 74-106 [facility] Comment on above: Performed By: #### P OCGLUC ####[facility] Ofkodmsemo9404[address] [place], [place] [address]Dr. Abhinav Laguna Glucose [Mass/Vol] 444 mg/dL Critically high 74-106 [facility] Comment on above: Performed By: #### P OCGLUC ####[facility] Kneclektxy4[address] [place] [address]Dr. Abhinav Laguna Glucose [Mass/Vol] 462 mg/dL Critically high 74-106 [facility] Comment on above: Performed By: #### P OCGLUC ####[facility] Wtqramsrei4849 [place] [address]Dr. Mirandagallo Laguna POCGLUC >600 Critically high 74-106 [facility] Comment on above: Result Comment: Lab Draw Ordered Performed By: #### P OCGLUC ####[facility] Hjldquqozq52[address] [place] [address]Dr. Abhinav Laguna POCGLUC >600 Critically high 74-106 [facility] Comment on above: Result Comment: Lab Draw Ordered Performed By: #### P OCGLUC ####[facility] Sduberlhie13[address] [place], [place] [address]Dr. Abhinav Laguna PROF 14(COMP METB)on 022 Albumin [Mass/Vol] 3.4 g/dL Normal 3.4-5.0 [facility] Comment on above: Performed By: #### C MP ####[facility] Sfzjowvytb[address] [place], [place] [address]Dr. Abhinav Laguna Albumin/Globulin [Mass ratio] 0.9 {ratio} Normal [facility] Comment on above: Performed By: #### C MP ####[facility] Kssiwqebph24[address] [place], [place] [address]Dr. Abhinav Laguna ALP [Catalytic activity/Vol] 268 U/L Critically high 46-116 [facility] Comment on above: Performed By: #### C MP ####[facility] Vhqeugnavp[address] [place], [place] [address]Dr. Abhinav Laguna ALT [Catalytic activity/Vol] 56 U/L Normal 16-63 [facility] Comment on above: Performed By: #### C MP ####[facility] Pkkndrxutj[address] [place], [place] [address]Dr. Abhinav Laguna Anion gap [Moles/Vol] 7.7 mmol/L Normal [facility] Comment on above: Performed By: #### C MP ####[facility] Epkotxxtdh5235 [place] [address]Dr. Abhinav Laguna AST [Catalytic activity/Vol] 20 U/L Normal 15-37 [facility] Comment on above: Performed By: #### C MP ####[facility] Sjykwyjlfc[address] [place], [place] [address]Dr. Abhinav Laguna Bilirubin [Mass/Vol] 0.7 mg/dL Normal 0.2-1.0 [facility] Comment on above: Performed By: #### C MP ####[facility] Myszkosfjb64[address] [place], [place] [address]Dr. Abhinav Laguna Calcium [Mass/Vol] 9.9 mg/dL Normal 8.5-10.1 [facility] Comment on above: Performed By: #### C MP ####[facility] Ygodqvgsdg9936[address] [place], [place] [address]Dr. Abhinav Laguna Chloride [Moles/Vol] 91 mmol/L Critically low 98-107 [facility] Comment on above: Performed By: #### C MP ####[facility] Qchxtaoeon[address] [place], [place] [address]Dr. Abhinav Laguna CO2 [Moles/Vol] 28.0 mmol/L Normal 21.0-32.0 The [facility] Comment on above: Performed By: #### C MP ####[facility] Bhsezmvtvh24[address] [place], [place] [address]Dr. Abhinav Laguna Creatinine [Mass/Vol] 1.15 mg/dL Normal 0.70-1.30 The [facility] Comment on above: Performed By: #### C MP ####[facility] Axdgypfegb[address] [place], [place] [address]Dr. Abhinav Jase EGFR-AF SALVADOREAN >60 Normal >=60 The [facility] Comment on above: Performed By: #### C MP ####[facility] Eersmpxnmb[address] [place], [place] [address]Dr. Mirandagallo Jase EGFR-NON AF SALVADOREAN >60 Normal >=60 The [facility] Comment on above: Performed By: #### C MP ####[facility] Tcecnkdiin28[address] [place], [place] [address]Dr. Abhinav Jase Globulin (S) [Mass/Vol] 3.9 g/dL Normal [facility] Comment on above: Performed By: #### C MP ####[facility] Lmzgmyxfbb65[address] [place] [address]Dr. Abhinav Laguna Glucose [Mass/Vol] 640 mg/dL Critically high 74-106 T [facility] Comment on above: Performed By: #### C MP ####[facility] Lszcfuwvkm43[address] [place] [address]Dr. Abhinav Jase Potassium [Moles/Vol] 4.7 mmol/L Normal 3.5-5.1 [facility] Comment on above: Performed By: #### C MP ####[facility] Sgumdrbzpi3[address] [place], [place] [address]Dr. Abhinav Jase Protein [Mass/Vol] 7.3 g/dL Normal 6.1-8.2 [facility] Comment on above: Performed By: #### C MP ####[facility] Vbxerynoqs[address] [place], [place] [address]Dr. Abhinav Jase Sodium [Moles/Vol] 124 mmol/L Critically low 136-145 Th [facility] Comment on above: Performed By: #### C MP ####[facility] Kgiimwckhx[address] [place], [place] [address]Dr. Abhinav Jase Urea nitrogen [Mass/Vol] 17.0 mg/dL Normal 7.0-18.0 [facility] Comment on above: Performed By: #### C MP ####[facility] Vysbexntrr[address] [place], [place] [address]Dr. Mirandagallo Jase Urea nitrogen/Creatinine [Mass ratio] 14.8 mg/mg Normal [facility] Comment on above: Performed By: #### C MP ####[facility] Prdhhzvisr[address] [place], [place] [address]Dr. Abhinav Laguna Vital Signs Date Time Vital Sign Value Performing Clinician Facility 09-06-2023 22:33-0500 Heart rate 98 /min Luna Carroll DO Work Phone: [facility] 09-06-2023 22:18-0500 Diastolic blood pressure 90 mm[Hg] Luna Carroll DO Work Phone: [facility] [place] 09-06-2023 22:18-0500 Systolic blood pressure 168 mm[Hg] Luna Carroll DO Work Phone: [facility] [place] 09-06-2023 21:48-0500 Respiratory rate 30 /min Luna Carroll DO Work Phone: [facility] [place] 09-06-2023 20:25-0500 Body temperature 97.59 [degF] Luna Carroll DO Work Phone: [facility] [place] 09-06-2023 20:25-0500 SaO2% (BldA) [Mass fraction] 94 % Luna Carroll DO Work Phone: [facility] [place] 03-03-2023 01:00-0400 Diastolic blood pressure 98 mm[Hg] MD Zachariah Saldaña Jr Work Phone: [facility] 03-03-2023 01:00-0400 Heart rate 74 /min MD Zachariah Saldaña Jr Work Phone: [facility] 03-03-2023 01:00-0400 Respiratory rate 12 /min MD Zachariah Saldaña Jr Work Phone: [facility] 03-03-2023 01:00-0400 SaO2% (BldA) [Mass fraction] 95 % MD Zachariah Saldaña Jr Work Phone: [facility] 03-03-2023 01:00-0400 Systolic blood pressure 144 mm[Hg] MD Zachariah Saldaña Jr Work Phone: [facility] 03-02-2023 21:22-0400 Body height 180.34 cm MD Zachariah Saldaña Jr Work Phone: [facility] 03-02-2023 21:22-0400 Body weight 72.2 kg MD Zachariah Saldaña Jr Work Phone: [facility] 03-02-2023 20:24-0400 Body temperature 98.9 [degF] MD Zachariah Saldaña Jr Work Phone: [facility] Encounters Encounter Date Encounter Type Care Provider Facility Start: 09-29-2023 Clinisync Result Encounter Stephanie Hernandez [employer] Work Phone: [facility] External Department Unsolicited Start: 09-29-2023 Clinisync Result Encounter Stephanie Hernandez [employer] LANG[employer] Work Phone: [facility] External Department Unsolicited Start: 09-29-2023 End: 09-30-2023 [facility] Start: 09-29-2023 End: 09-29-2023 Subsequent hospital visit by physician [facility] Start: 09-17-2023 Clinisync Result Encounter La Steel [employer] LANG[employer]AGE TE[employer]ER Work Phone: [facility] External Department Unsolicited Start: 09-17-2023 Clinisync Result Encounter La Steel [employer] LANG[employer] TE[employer]ER Work Phone: [facility] External Department Unsolicited Start: 09-17-2023 End: 09-18-2023 ambulatory LA STEEL [facility] Start: 09-11-2023 End: 09-12-2023 ambulatory STEPHANIE HERNANDEZ [facility] l Start: 09-06-2023 End: 09-07-2023 Emergency department patient visit [facility] Start: 09-06-2023 End: 09-07-2023 Emergency department patient visit [facility] Work Phone: [facility] ED Comment on above: Generalized abdomina l pain (Primary Dx) Start: 03-24-2023 ambulatory NON STAFF Facility:[facility] Start: 03-03-2023 End: 03-10-2023 Evaluation and management of inpatient Devin Starks Facility:[facility] Start: 03-02-2023 Evaluation and management of inpatient MD Zachariah Saldaña Jr Work Phone: [facility] Work Phone: Start: 12-08-2022 End: 12-08-[address] SOPHIE TEJADA Facility: Start: 12-03-2022 End: 12-04-[address] AKBAR DUBOSE . Facility:[facility] Start: 11-27-2022 End: 11-27-[address] MARCEL ARDON Facility:[facility] Start: 11-25-2022 End: 11-26-2022 Evaluation and management of inpatient DR BHAVYA NOLASCO Facility:[facility] Start: 11-09-2022 End: 11-09-[address] ELIZABETH LLOYD . Facility:[facility] Start: 10-23-2022 End: 10-23-[address] ELIZABETH LLOYD . Facility:[facility] Start: 10-23-2022 End: 10-24-2022 ambulatory UNKNOWN PROVIDER Facility:[facility] Start: 09-08-2022 End: 09-09-2022 ambulatory SHAIKH Vincenzo VILLAR Facility:[facility] Start: 09-01-2022 End: 09-02-2022 ambulatory IVON CLARKE Facility:[facility] Start: 08-21-2022 End: 08-22-[address] LA COOPER . 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 Work Phone: Start: 09-17-2023 ALL URINALYSIS La sanchez SIGN LANGUAGE TEACHER Work Phone: Start: 09-06-2023 Ct abdomen & pelvis w/contrast material Luna Carroll DO Work Phone: Start: 09-06-2023 Urinalysis microscopic only Luna Carroll DO Work Phone: Start: 09-06-2023 Urnls dip stick/tabl et rgnt auto w/o microscopy Luna Carroll DO Work Phone: Start: 09-06-2023 Comprehensive metabo lic panel Luna Carroll DO Work Phone: Start: 03-02-2023 Antibody screen Comment on above: Result Comment: PERF ORMED BY: [facility] [address] [place] [address] PATHOLOGIST ELIGIBILITY EXAMINER DEONNA COURTNEY M.D. Start: 03-02-2023 Computed tomography [...] Treatment Date Care Activity Detail Author Start: 11-01-2030 DTaP/Tdap/Td vaccine (2 - Td or Tdap) DTaP/Tdap/Td vaccine (2 - Td or Tdap) [facility] Start: 04-17-2023 COVID-19 Vaccine ( season) COVID-19 Vaccine ( season) [facility] Start: 04-17-2023 Influenza vaccination Influenza Vacc ine (#1) [facility] Start: 03-17-2023 Influenza vaccination Flu vaccine (# 1) [facility] Start: 03-03-2023 Hospital admission [facility] Start: 03-02-2023 Plain chest X-ray XR chest 1V portab le [facility] Start: 03-02-2023 XR Chest Single view [facility] Start: 12-15-2022 ambulatory Facility:H 1 Start: 2020 Respiratory Syncytia l Virus (RSV) or age 60 yrs+ (1 - 1-dose 60+ series) Respiratory Syncytial Virus (RSV) or age 60 yrs+ (1 - 1-dose 60+ series) [facility] Start: 2010 Shingles vaccine (1 of 2) Shingles vaccine (1 of 2) [facility] Start: 2005 Screening for malign ant neoplasm of colon [facility] Start: 11-03-1979 Urine screening for protein Diabetes: Urine Protein Screening [facility] Start: 1978 Hepatitis C screening Hepatitis C sc reen [facility] Start: 11-03-1975 HIV screening HIV screen [facility] Start: 1972 Depression Screen Depression Screen [facility] Start: 1970 Glaucoma screening Diabetes: R etinopathy Screening [facility] Start: 1970 Lipid panel Lipids [facility] Start: 1960 Hemoglobin A1c measurement Diabetes: Hemoglobin A1C [facility] Start: 1960 Screening for malign ant neoplasm of colon 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 1960 Unknown [id number] 2.16.840.1.543959.3.579.2.732 1960 Unknown [id number] 2.16.840.1.775506.3.579.2.593 1960 Unknown [id number] 2.16.840.1.207927.3.579.2.593 1960 Unknown [id number] 2.16.840.1.324803.3.579.2.593 1960 Unknown [id number] 2.16.840.1.107759.3.579.2.593 1960 Unknown [id number] 2.16.840.1.575407.3.579.2.593 1960 Unknown [id number] 2.16.840.1.013727.3.579.2.593 1960 Unknown [id number] 2.16.840.1.101700.3.579.2.593 1960 Unknown [id number] 2.16.840.1.891600.3.579.2.593 1960 Unknown [id number] 2.16.840.1.086877.3.579.2.593 1960 Unknown [id number] 2.16.840.1.139053.3.579.2.593 1960 Unknown [id number] 2.16.840.1.264864.3.579.2.593 1960 Unknown [id number] 2.16.840.1.337815.3.579.2.593 1960 Unknown [id number] 2.16.840.1.826301.3.579.2.593 1960 Unknown [id number] 2.16.840.1.675614.3.579.2.593 1960 Unknown [id number] 2.16.840.1.454441.3.579.2.593 1960 Unknown [id number] 2.16.840.1.552649.3.579.2.593 1960 Unknown [id number] 2.16.840.1.068161.3.579.2.173 1960 Unknown [id number] 2.16.840.1.442951.3.579.2.173 1959 Medicaid [id number] 1959 Unknown [id number] Unknown [id number] 2.16.840.1.976026.3.579.2.531 Unknown [id number] 2.16.840.1.009144.3.579.2.531 Social History Date Type Detail Facility Start: 03-21-2020 Tobacco smoking status NHIS Smoker (finding) [facility] Start: 1960 Sex Assigned At Male F [facility] Tobacco smoking status DEIS [facility] Start: 12-17-2012 End: 01-14-2023 History of Social function [facility] Start: 12-17-2012 End: 01-14-2023 Tobacco use panel [facility] Start: 1960 Sex Assigned At Not on file B [facility] Start: 01-14-2023 Tobacco smoking status DEIS Smokes tobacco daily [facility] History of tobacco use Cigarette Smoker [facility] Start: 01-14-2023 Alcohol intake Lifetime non-d waqar (finding) [facility] Start: 01-14-2023 Tobacco Comment 21-30 cigs a day. NO [facility] Medical Equipment Procedure Code Equipment Code Equipment Origin al Text Equipment Identifier Dates Kyphoplasty Orthopaedic ceme nt, non-medicated [id number] [facility] Start: 03-21-2020 Clinical Notes 09-07-2023 Discharge Instructions Note Date & Type Note Facility 09-07-2023 Hospital Discharg e instructions Luna Carroll DO - 09/07/2023 12:[address] scan that was done that showed some gastric distention, and follow-up is recommended with GI doctor. Please follow-up as listed, return to ER for any worsening abdominal pain, or persistent vomiting documented in this encounter [facility] Consult note Note Date/Time March 03, 2023 2:16am [facility] [address] [place] [address] Hospitalist Consult Note Signed Patient: Akbar Byrnes MR#: [id number] : 1960 Acct:[id number] Age/Sex: 62 / M Adm Date: 3 Loc: Room: [address] [place] [address] Type: ADM IN Attending Dr: Devin Starks DO Copies to: NON STAFF MD Devin Angeles,DO~ HPI DATE OF CONSULTATION: 03/03/23 REQUESTING PROVIDER: [...] Marijuana Social History Comments: mobile home with [facility] ending this last week per sister Meds [...] 226 Gm Bottle TOPICAL 03/06/23 08:59 DAILY [facility] Aspirin 81 mg 03/03/23 09:00 Aspirin 81 Mg Tablet. PO 03/02/24 08:59 DAILY [facility] Atorvastatin Calcium 40 mg 03/03/23 09:00 Atorvastatin 40 Mg Tablet PO 03/06/23 08:59 DAILY [facility] Cyclobenzaprine HCl 10 mg 03/03/23 01:12 Cyclobenzaprine 10 Mg Tablet PO 03/06/23 01:11 Q6HR PRN back spasms or pain Dextrose 0 gm 03/03/23 02:02 Dextrose 50% In Water 25 Gm/50 Ml Syringe IV-PUSH 03/02/24 02:01 PRN PRN Hypoglycemia Doxycycline Hyclate 100 mg 03/03/23 09:00 Doxycycline Hyclate 100 Mg Tablet PO 03/05/23 23:59 BID [facility] Glipizide 10 mg 03/03/23 08:00 Glipizide 5 [...] Units/3 Ml Insuln.Pen SUBCUT 03/02/24 07:59 TID.WM.HS [facility] Protocol Insulin Glargine 40 units 03/03/23 09:00 Insulin Glargine 300 Units/3 Ml Insuln.Pen SUBCUT 03/06/23 08:59 BID [facility] Insulin Glargine 40 units 03/03/23 08:00 Insulin Glargine 300 Units/3 Ml Insuln.Pen SUBCUT 03/02/24 07:59 DAILY.WITH.BKFAST [facility] Insulin Glargine 40 units 03/03/23 17:00 Insulin Glargine 300 Units/3 Ml Insuln.Pen SUBCUT 03/02/24 16:59 DAILY.WITH.SUPPER [facility] Ipratropium [place] 0.5 mg 03/03/23 08:00 Ipratropium [place] 0.5 Mg/2.5 Ml Vial.Neb INHALATION 03/02/24 07:59 [...] 0.4 Mg Cap.Er.24h PO 03/06/23 08:59 DAILY [facility] Exam Physical Exam Vital Signs: [...] Appearance Clear, Urine pH 6.5, Ur Specific [place] 1.028, Urine Protein Trace H, Urine Glucose [...] Glucose 341, POC Glucose Comment Will notify /sara 03/02/23 20:22: Blood Type O Positive, Antibody [...] % (Auto) 63.6, Lymph % (Auto) 27.3, [place] % (Auto) 6.2, Eos % (Auto) 2.3, Baso % (Auto) 0.6, Nucleat RBC Rel Count 0.2, Neut # (Auto) 5.9, Lymph # (Auto) 2.5, [place] # (Auto) 0.6, Eos # (Auto) 0.2, [...] By: <Electronically signed by Bobby Jacobson MD> 03/03/23720 [facility] Work Phone: Consult note Author Giuseppe Bailey [facility] March 03, 2023 12:59pm Note Date/Time March 03, 2023 8:29 am [facility] [address] [place] [address] Pulmonology Consult Note Signed Patient: Akbar Byrnes MR#: [id number] : 1960 Acct:[id number] Age/Sex: 62 / M Adm Date: 3 Loc: Room: [address] [place] [address] Type: ADM IN Attending Dr: Devin Starks DO Copies to: NON STAFF MD Devin Sebastian,DO~ HPI Date/Time of Consultation: Date of Service: 03/03/2023 Time of Service: 08:16 Consulting Provider: Giuseppe Bailey Requesting Provider: Devin Starks History of Present Illness History of present illness: Mr. Byrnes is a 62 year old male seen at the request of the trauma service forcritical care medicine management. Patient was brought to [...] negative unless noted below or in [facility]PI [facility]-19?: Unknown Medical History [...] Marijuana Social History Comments: mobile home with [facility] ending this last week per sister Meds [...] 07:59 15:59 Intake Total 1000 / 1000 Output Total 500 / 500 51 / 51 0 / 51 Balance 500 / 500 -21 / -21 0 / -21 Weight 72.2 kg 63 kg Labs 03/03/23 04:06 03/03/23 04:[address] scan - chest: Status: image reviewed by me Additional comments: Date of Service: 03/02/23 CT/CT chest w con: traumatic injury ([id number]) CT/CT abdomen pelvis w con: traumatic injury [...] <Electronically signed by MD Giuseppe Bailey> 03/03/23 1259 [facility] Work Phone: Consult note Author Joon Pascal [facility] March 04, 2023 7:31am Note Date/Time March 04, 2023 7:31 am [facility] [address] [place] [address] Neurosurgery Consult Note Signed Patient: Akbar Byrnes MR#: [id number] : 1960 Acct:[id number] Age/Sex: 62 / M Adm Date: 3 Loc: Room: [address] [place] [address] Type: ADM IN Attending Dr: Devin Starks [...] Marijuana Social History Comments: mobile home with [facility] ending this last week per sister Meds [...] intact and symmetrical Deltoid bicep tricep and manager center 5/5 bilateral Upper extremity sensory normal to [...] % (Auto) 64.8, Lymph % (Auto) 24.8, [place] % (Auto) 7.4, Eos % (Auto) 2.1, Baso % (Auto) 0.9, Nucleat RBC Rel Count 0.2, Neut # (Auto) 8.0 H, Lymph # (Auto) 3.1, [place] # (Auto) 0.9 H, Eos # (Auto) 0.3, Baso # (Auto) 0.1, Platelet Estimate Normal, Plt Morphology Comment Normal, RBC Morphology N/A, Polychromasia Slight, Hypochromasia Slight, Ovalocytes Slight 03/03/23 01:42: POC Glucose 312 03/02/23 21:25: Urine Color Yellow, Urine Appearance Clear, Urine pH 6.5, Ur Specific [place] 1.028, Urine Protein Trace H, Urine Glucose [...] % (Auto) 63.6, Lymph % (Auto) 27.3, [place] % (Auto) 6.2, Eos % (Auto) 2.3, Baso % (Auto) 0.6, Nucleat RBC Rel Count 0.2, Neut # (Auto) 5.9, Lymph # (Auto) 2.5, [place] # (Auto) 0.6, Eos # (Auto) 0.2, [...] signed by MD Joon Pascal> 03/04/23 0731 [facility] Work Phone: Evaluation noteNo assessment information available [facility] Work Phone: Evaluation note* Diagnosis Generalized abdominal pain- Primary Abdominal pain, generalized documented in this encounter [facility] Author Devin Starks [facility] March 03, 2023 7:55am Note Date/Time March 03, 2023 7:49 am [facility] [address] [place] [address] General Surgery H&P Signed Patient: Akbar Byrnes MR#: [id number] : 1960 Acct:[id number] Age/Sex: 62 / M Adm Date: 3 Loc: Room: [address] [place] [address] Type: ADM IN Attending Dr: Devin Starks [...] Marijuana Social History Comments: mobile home with [facility] ending this last week per sister Meds [...] / 51 Balance 500 / 500 - Weight 72.2 kg 63 kg Labs [...] % (Auto) 64.8, Lymph % (Auto) 24.8, [place] % (Auto) 7.4, Eos % (Auto) 2.1, Baso % (Auto) 0.9, Nucleat RBC Rel Count 0.2, Neut # (Auto) 8.0 H, Lymph # (Auto) 3.1, [place] # (Auto) 0.9 H, Eos # (Auto) 0.3, Baso # (Auto) 0.1, Platelet Estimate Normal, Plt Morphology Comment Normal, RBC Morphology N/A, Polychromasia Slight, Hypochromasia Slight, Ovalocytes Slight 03/03/23 01:42: POC Glucose 312 03/02/23 21:25: Urine Color Yellow, Urine Appearance Clear, Urine pH 6.5, Ur Specific [place] 1.028, Urine Protein Trace H, Urine Glucose [...] % (Auto) 63.6, Lymph % (Auto) 27.3, [place] % (Auto) 6.2, Eos % (Auto) 2.3, Baso % (Auto) 0.6, Nucleat RBC Rel Count 0.2, Neut # (Auto) 5.9, Lymph # (Auto) 2.5, [place] # (Auto) 0.6, Eos # (Auto) 0.2, [...] signed by DO Devin Starks> 03/03/23 0755 [facility] Work Phone: progress note Author Fermin Rodríguez [facility] March 03, 2023 11:48am Note Date/Time March 03, 2023 11:4 0am [facility] [address] [place] [id number] Progress Note Signed Patient: Akbar Byrnes MR#: [id number] : 1960 Acct:[id number] Age/Sex: 62 / M Adm Date: 3 Loc: Room: [address] [place] [address] Type: ADM IN Attending Dr: Devin Starks [...] <Electronically signed by Fermin Rodríguez DO> 03/03/23 1149 [facility] Work Phone: progress note Author Giuseppe Bailey [facility] March 04, 2023 8:11pm Note Date/Time March 04, 2023 7:26 am [facility] [address] [place] [address] Pulmonology Progress Note Signed Patient: Akbar Byrnes MR#: [id number] : 1960 Acct:[id number] Age/Sex: 62 / M Adm Date: 3 Loc: Room: [address] [place] [address] Type: ADM IN Attending Dr: Devin Starks [...] pneumothorax. Documented By: Giuseppe Bailey MD 3 0724 Signed By: <Electronically signed by MD Giuseppe Bailey> 03/04/232010 [facility] Work Phone: Progress note Author Devin Starks [facility] March 04, 2023 8:54am Note Date/Time March 04, 2023 8:54 am [facility] [address] [place] [address] General Surgery Progress Note Signed Patient: Akbar Byrnes MR#: [id number] : 1960 Acct:[id number] Age/Sex: 62 / M Adm Date: 3 Loc: Room: [address] [place] [address] Type: ADM IN Attending Dr: Devin Starks [...] he is amenable to going to a residential facility. He has not complained of any [...] 226 Gm Bottle) 1 applic TOPICAL DAILY [facility] Stop: 03/06/23 08:59 Last Admin: 03/04/23 08:39 Dose: 1 applic Aspirin (Aspirin 81 Mg Tablet.) 81 mg PO DAILY [facility] Stop: 03/02/24 08:59 Last Admin: 03/04/23 08:39 Dose: 81 mg Atorvastatin Calcium (Atorvastatin 40 Mg Tablet) 40 mg PO DAILY [facility] Stop: 03/06/23 08:59 Last Admin: [...] 100 Mg Capsule) 100 mg PO BID [facility] Stop: 03/02/24 08:59 Last Admin: 03/04/23 08:39 Dose: 100 mg Doxycycline Hyclate (Doxycycline Hyclate 100 Mg Tablet) 100 mg PO BID [facility] Stop: 03/05/23 23:59 Last Admin: 03/04/23 08:39 Dose: 100 mg Enoxaparin Sodium (Enoxaparin 40 Mg/0.4 Ml Syringe) 40 mg SUBCUT DAILY@1000 [facility] Stop: 03/02/24 09:59 Last Admin: 03/03/23 10:07 Dose: 40 mg Famotidine (Famotidine/Pf 20 Mg/2 Ml Vial) 20 mg IV-PUSH Q12HR [facility] Stop: 03/02/24 08:59 Last Admin: 03/04/23 08:46 Dose: 20 mg Glipizide (Glipizide 5 Mg Tablet) 10 mg PO DAILY.8A [facility] Stop: 03/07/23 07:59 Glucose (Dextrose [...] Units/3 Ml Insuln.Pen) 0 units SUBCUT TID.WM.HS [facility]; Protocol Stop: 03/02/24 07:59 Last Admin: 03/03/23 22:07 Dose: Not Given Insulin Glargine (Insulin Glargine 300 Units/3 Ml Insuln.Pen) 40 units SUBCUT DAILY.WITH.BKFAST [facility] Stop: 03/02/24 07:59 Last Admin: 03/04/23 08:39 Dose: Not Given Insulin Glargine (Insulin Glargine 300 Units/3 Ml Insuln.Pen) 40 units SUBCUT DAILY.WITH.SUPPER [facility] Stop: 03/02/24 16:59 Last Admin: 03/03/23 16:53 Dose: Not Given Ipratropium [place] (Ipratropium [place] 0.5 Mg/2.5 Ml Vial.Neb) 0.5 mg INHALATION QID.RESP [facility] Stop: 03/02/24 07:59 Last Admin: 03/03/23 21:40 Dose: Not Given Lisinopril (Lisinopril 2.5 Mg Tablet) 2.5 mg PO DAILY [facility] Stop: 03/06/23 08:59 Last Admin: 03/04/23 08:39 Dose: 2.5 mg Metoprolol Tartrate (Metoprolol Tartrate 25 Mg Tablet) 25 mg PO BID [facility] Stop: 03/06/23 08:59 Last Admin: 03/04/23 08:39 Dose: 25 mg Quetiapine Fumarate (Quetiapine Fumarate 50 Mg Tablet) 50 mg PO QHS [facility] Stop: 03/06/23 21:59 Last Admin: 03/03/23 21:35 Dose: 50 mg Sodium Chloride (Sodium Chloride 0.9 % 10 Ml Vial.Pf) 10 ml INJECTION PRN PRN PRN Reason: To dilute Pepcid Stop: 03/02/24 07:55 Last Admin: 03/04/23 08:46 Dose: 10 ml Tamsulosin HCl (Tamsulosin 0.4 Mg Cap.Er.24h) 0.4 mg PO DAILY [facility] Stop: 03/06/23 08:59 Last Admin: [...] % (Auto) 66.9, Lymph % (Auto) 22.8, [place] % (Auto) 8.8, Eos % (Auto) 1.1, Baso % (Auto) 0.4, Nucleat RBC Rel Count 0.1, Neut # (Auto) 7.9 H, Lymph # (Auto) 2.7, [place] # (Auto) 1.0 H, Eos # (Auto) 0.1, Baso # (Auto) 0.1 03/03/23 16:32: POC Glucose 175 03/03/23 12:14: POC Glucose 338 03/03/23 09:56: Urine Color Yellow, Urine Appearance Clear, Urine pH 6.0, Ur Specific [place] 1.029, Urine Protein Trace H, Urine Glucose [...] % (Auto) 64.8, Lymph % (Auto) 24.8, [place] % (Auto) 7.4, Eos % (Auto) 2.1, Baso % (Auto) 0.9, Nucleat RBC Rel Count 0.2, Neut # (Auto) 8.0 H, Lymph # (Auto) 3.1, [place] # (Auto) 0.9 H, Eos # (Auto) 0.3, Baso # (Auto) 0.1, Platelet Estimate Normal, Plt Morphology Comment Normal, RBC Morphology N/A, Polychromasia Slight, Hypochromasia Slight, Ovalocytes Slight 03/03/23 01:42: POC Glucose 312 03/02/23 21:25: Urine Color Yellow, Urine Appearance Clear, Urine pH 6.5, Ur Specific [place] 1.028, Urine Protein Trace H, Urine Glucose [...] % (Auto) 63.6, Lymph % (Auto) 27.3, [place] % (Auto) 6.2, Eos % (Auto) 2.3, Baso % (Auto) 0.6, Nucleat RBC Rel Count 0.2, Neut # (Auto) 5.9, Lymph # (Auto) 2.5, [place] # (Auto) 0.6, Eos # (Auto) 0.2, [...] Patient is amenable to transfer to a residential facility, and I think that is definitely [...] <Electronically signed by DO Devin Starks> 03/04/23 0854 [facility] Work Phone: Progress note Author Fermin Rodríguez [facility] March 04, 2023 6:07pm Note Date/Time March 04, 2023 6:08 pm [facility] [address] [place] [address] Hospitalist Progress Note Signed Patient: Akbar Byrnes MR#: [id number] : 1960 Acct:[id number] Age/Sex: 62 / M Adm Date: 3 Loc: Room: [address] [place] [address] Type: ADM IN Attending Dr: Devin Starks [...] 03/03/23 09:00 03/04/23 08:39 Aspirin 81 Mg Tablet.Dr PO 03/02/24 08:59 81 mg DAILY [facility] [...] Insuln.Pen SUBCUT 03/02/24 07:59 Not Given TID.WM.HS [facility] Protocol Insulin Glargine 20 units 03/04/23 22:00 Insulin Glargine 300 Units/3 Ml Insuln.Pen SUBCUT 03/03/24 21:59 QHS [facility] Ipratropium [place] 0.5 mg 03/03/23 08:00 03/04/23 16:17 Ipratropium [place] 0.5 Mg/2.5 Ml Vial.Neb INHALATION 03/02/24 07:59 [...] Documented By: Fermin Rodríguez DO 03/04/23 18 Signed By: <Electronically signed by Fermin Rodríguez DO> 03/04/23 1807 [facility] Work Phone: Progress note Author Devin Starks [facility] March 05, 2023 8:38am Note Date/Time March 05, 2023 8:38 am [facility] [address] [place] [address] General Surgery Progress Note Signed Patient: Akbar Byrnes MR#: [id number] : 1960 Acct:[id number] Age/Sex: 62 / M Adm Date: 3 Loc: Room: [address] [place] [address] Type: ADM IN Attending Dr: Devin Starks [...] 226 Gm Bottle) 1 applic TOPICAL DAILY [facility] Stop: 03/06/23 08:59 Last Admin: 03/04/23 08:39 Dose: 1 applic Aspirin (Aspirin 81 Mg Tablet.) 81 mg PO DAILY [facility] Stop: 03/02/24 08:59 Last Admin: 03/04/23 08:39 Dose: 81 mg Atorvastatin Calcium (Atorvastatin 40 Mg Tablet) 40 mg PO DAILY [facility] Stop: 03/06/23 08:59 Last Admin: [...] 100 Mg Capsule) 100 mg PO BID [facility] Stop: 03/02/24 08:59 Last Admin: 03/04/23 21:39 Dose: 100 mg Doxycycline Hyclate (Doxycycline Hyclate 100 Mg Tablet) 100 mg PO BID [facility] Stop: 03/05/23 23:59 Last Admin: 03/04/23 21:39 Dose: 100 mg Enoxaparin Sodium (Enoxaparin 40 Mg/0.4 Ml Syringe) 40 mg SUBCUT DAILY@1000 [facility] Stop: 03/02/24 09:59 Last Admin: 03/04/23 10:53 Dose: 40 mg Famotidine (Famotidine/Pf 20 Mg/2 Ml Vial) 20 mg IV-PUSH Q12HR [facility] Stop: 03/02/24 08:59 Last Admin: 03/04/23 21:39 Dose: 20 mg Glipizide (Glipizide 5 Mg Tablet) 10 mg PO DAILY.8A [facility] Stop: 03/07/23 07:59 Glucose (Dextrose [...] Units/3 Ml Insuln.Pen) 0 units SUBCUT TID.WM.HS [facility]; Protocol Stop: 03/02/24 07:59 Last Admin: 03/04/23 21:41 Dose: 3 units Insulin Glargine (Insulin Glargine 300 Units/3 Ml Insuln.Pen) 20 units SUBCUT QHS [facility] Stop: 03/03/24 21:59 Last Admin: 03/04/23 21:41 Dose: 20 units Ipratropium [place] (Ipratropium [place] 0.5 Mg/2.5 Ml Vial.Neb) 0.5 mg INHALATION QID.RESP [facility] Stop: 03/02/24 07:59 Last Admin: 03/04/23 20:46 Dose: 0.5 mg Lisinopril (Lisinopril 2.5 Mg Tablet) 2.5 mg PO DAILY [facility] Stop: 03/06/23 08:59 Last Admin: 03/04/23 08:39 Dose: 2.5 mg Metoprolol Tartrate (Metoprolol Tartrate 25 Mg Tablet) 25 mg PO BID [facility] Stop: 03/06/23 08:59 Last Admin: 03/04/23 23:15 [...] 0.4 Mg Cap.Er.24h) 0.4 mg PO DAILY [facility] Stop: 03/06/23 08:59 Last Admin: [...] 150 / 150 Balance 360 / 610 Weight 61 kg Labs 03/04/23 04:30 03/04/23 [...] % (Auto) 66.9, Lymph % (Auto) 22.8, [place] % (Auto) 8.8, Eos % (Auto) 1.1, Baso % (Auto) 0.4, Nucleat RBC Rel Count 0.1, Neut # (Auto) 7.9 H, Lymph # (Auto) 2.7, [place] # (Auto) 1.0 H, Eos # (Auto) 0.1, Baso # (Auto) 0.1 03/03/23 22:23: POC Glucose 177 03/03/23 21:48: POC Glucose 42 L* 03/03/23 16:32: POC Glucose 175 03/03/23 12:14: POC Glucose 338 03/03/23 09:56: Urine Color Yellow, Urine Appearance Clear, Urine pH 6.0, Ur Specific [place] 1.029, Urine Protein Trace H, Urine Glucose [...] Continue diet. Plan is for placement at residential facility. Pending approval by insurance Code(s): W17.89XA [...] signed by DO Devin Starks> 03/05/23 0838 [facility] Work Phone: Progress note Author Fermin Rodríguez [facility] March 05, 2023 6:57pm Note Date/Time March 05, 2023 6:57 pm [facility] [address] [place] [address] Hospitalist Progress Note Signed Patient: Akbar Byrnes MR#: [id number] : 1960 Acct:[id number] Age/Sex: 62 / M Adm Date: 3 Loc: 4N Room: 6O4789-7 Type: ADM IN Attending Dr: Devin Starks DO Copies to: ~ Date of Service: 03/05/2023 Subjective Subjective Narrative: I personally saw and examined patient at the bedside this afternoon. No new complaints. [facility]. Physical Examination: GENERAL APPEARANCE: Alert, up [...] Dose Route Start Last Admin Trade Name Juanq PRN Reason Stop Dose Admin Hydrocodone Bitart/Acetaminophen [...] 21:59 20 units QHS [facility] Administration Ipratropium [place] 0.5 mg 03/03/23 08:00 03/05/23 15:45 Ipratropium [place] 0.5 Mg/2.5 Ml Vial.Neb INHALATION 03/02/24 07:59 [...] 55 Signed By: <Electronically signed by Fermin Rodríguez DO> 03/05/[address] [place] [address] Ctr Work Phone: Progress note Author Devin Starks [facility] March 06, 2023 8:49am Note Date/Time March 06, 2023 8:43 am [facility] [address] [place] [address] General Surgery Progress Note Signed Patient: Akbar Byrnes MR#: [id number] : 1960 Acct:[id number] Age/Sex: 62 / M Adm Date: 3 Loc: 4N Room: [id number] Type: ADM IN Attending Dr: Devin Starks [...] 81 Mg Tablet.) 81 mg PO DAILY [facility] Stop: 03/02/24 08:59 Last Admin: [...] 100 Mg Capsule) 100 mg PO BID [facility] Stop: 03/02/24 08:59 Last Admin: 03/05/23 22:15 Dose: 100 mg Enoxaparin Sodium (Enoxaparin 40 Mg/0.4 Ml Syringe) 40 mg SUBCUT DAILY@1000 [facility] Stop: 03/02/24 09:59 Last Admin: 03/05/23 10:18 Dose: 40 mg Famotidine (Famotidine 20 Mg Tablet) 20 mg PO BID [facility] Stop: 03/04/24 08:59 Last Admin: 03/05/23 22:15 Dose: 20 mg Glipizide (Glipizide 5 Mg Tablet) 10 mg PO DAILY.8A [facility] Stop: 03/07/23 07:59 Glucose (Dextrose 40% Gel 15 Gm Tube) 0 gm PO PRN PRN PRN Reason: Hypoglycemia Stop: 03/02/24 02:01 Guaifenesin (Guaifenesin 600 Mg Tab.Er.12h) 1,200 mg PO BID [facility] Stop: 03/04/24 20:59 Last Admin: 03/05/23 22:14 Dose: 1,200 mg Hydromorphone HCl (Hydromorphone 1 Mg/Ml Syringe) 0.5 mg IV-PUSH Q3H PRN PRN Reason: pain Last Admin: 03/06/23 06:43 Dose: 0.5 mg Insulin Aspart (Insulin Aspart 300 Units/3 Ml Insuln.Pen) 0 units SUBCUT TID.WM.HS [facility]; Protocol Stop: 03/02/24 07:59 Last Admin: 03/05/23 22:16 Dose: 8 units Insulin Glargine (Insulin Glargine 300 Units/3 Ml Insuln.Pen) 20 units SUBCUT QHS [facility] Stop: 03/03/24 21:59 Last Admin: 03/05/23 22:54 Dose: 20 units Ipratropium [place] (Ipratropium [place] 0.5 Mg/2.5 Ml Vial.Neb) 0.5 mg INHALATION QID.RESP [facility] Stop: 03/02/24 07:59 Last Admin: 03/05/23 20:13 Dose: Not Given Lisinopril (Lisinopril 2.5 Mg Tablet) 2.5 mg PO DAILY [facility] Stop: 03/06/23 08:59 Last Admin: 03/05/23 08:51 Dose: 2.5 mg Metoprolol Tartrate (Metoprolol Tartrate 25 Mg Tablet) 25 mg PO BID [facility] Stop: 03/06/23 08:59 Last Admin: 03/05/23 22:16 Dose: 25 mg Pregabalin (Pregabalin 75 Mg Capsule) 75 mg PO BID [facility] Stop: 09/01/23 12:59 Last Admin: 03/05/23 22:15 Dose: 75 mg Quetiapine Fumarate (Quetiapine Fumarate 50 Mg Tablet) 50 mg PO QHS [facility] Stop: 03/06/23 21:59 Last Admin: 03/05/23 22:15 Dose: 50 mg Tamsulosin HCl (Tamsulosin 0.4 Mg Cap.Er.24h) 0.4 mg PO DAILY [facility] Stop: 03/06/23 08:59 Last Admin: [...] identified. Patient is okay for transfer to residential facility. Code(s): W17.89XA - Other fall from [...] signed by DO Devin Starks> 03/06/23 0849 [facility] Work Phone: Progress note Author Giuseppe Bailey [facility] March 06, 2023 1:37pm Note Date/Time March 06, 2023 1:37 pm [facility] [address] [place] [address] Progress Note Signed Patient: Akbar Byrnes MR#: [id number] : 1960 Acct:[id number] Age/Sex: 62 / M Adm Date: 3 Loc: 4N Room: [address] [place] [address] Type: ADM IN Attending Dr: Devin Starks [...] signed by MD Giuseppe Bailey> 03/06/23 1337 [facility] Work Phone: Progress note Author Fermin Rodríguez [facility] March 06, 2023 4:08pm Note Date/Time March 06, 2023 4:08 pm [facility] [address] [place] [address] Hospitalist Progress Note Signed Patient: Akbar Byrnes MR#: [id number] : 1960 Acct:[id number] Age/Sex: 62 / M Adm Date: 3 Loc: Room: [address] [place] [address] Type: ADM IN Attending Dr: Devin Starks [...] 21:59 20 units QHS [facility] Administration Ipratropium [place] 0.5 mg 03/03/23 08:00 03/06/23 15:39 Ipratropium [place] 0.5 Mg/2.5 Ml Vial.Neb INHALATION 03/02/24 07:59 [...] <Electronically signed by Fermin Rodríguez DO> 03/06/23 6777 [facility] Work Phone: Progress note Author Devin Starks [facility] March 07, 2023 12:21pm Note Date/Time March 07, 2023 12:2 1pm [facility] [address] [place] [address] General Surgery Progress Note Signed Patient: Akbar Byrnes MR#: [id number] : 1960 Acct:[id number] Age/Sex: 62 / M Adm Date: 3 Loc: Room: [address] [place] [address] Type: ADM IN Attending Dr: Devin Starks [...] 81 Mg Tablet.Dr) 81 mg PO DAILY [facility] Stop: 03/02/24 08:59 Last Admin: 03/07/23 08:05 Dose: 81 mg Dextrose (Dextrose 50% In Water 25 Gm/50 Ml Syringe) 0 gm IV-PUSH PRN PRN PRN Reason: Hypoglycemia Stop: 03/02/24 02:01 Last Admin: 03/04/23 08:40 Dose: 25 gm Docusate Sodium (Docusate 100 Mg Capsule) 100 mg PO BID [facility] Stop: 03/02/24 08:59 Last Admin: 03/07/23 08:05 Dose: 100 mg Enoxaparin Sodium (Enoxaparin 40 Mg/0.4 Ml Syringe) 40 mg SUBCUT DAILY@1000 [facility] Stop: 03/02/24 09:59 Last Admin: 03/07/23 09:32 Dose: 40 mg Famotidine (Famotidine 20 Mg Tablet) 20 mg PO BID [facility] Stop: 03/04/24 08:59 Last Admin: 03/07/23 08:05 Dose: 20 mg Glucose (Dextrose 40% Gel 15 Gm Tube) 0 gm PO PRN PRN PRN Reason: Hypoglycemia Stop: 03/02/24 02:01 Guaifenesin (Guaifenesin 600 Mg Tab.Er.12h) 1,200 mg PO BID [facility] Stop: 03/04/24 20:59 Last Admin: 03/07/23 08:05 Dose: 1,200 mg Hydromorphone HCl (Hydromorphone 1 Mg/Ml Syringe) 0.5 mg IV-PUSH Q3H PRN PRN Reason: pain Last Admin: 03/07/23 10:59 Dose: 0.5 mg Insulin Aspart (Insulin Aspart 300 Units/3 Ml Insuln.Pen) 0 units SUBCUT TID.WM.[facility]; Protocol Stop: 03/02/24 07:59 Last Admin: 03/07/23 11:58 Dose: 4 units Insulin Glargine (Insulin Glargine 300 Units/3 Ml Insuln.Pen) 20 units SUBCUT QHS [facility] Stop: 03/03/24 21:59 Last Admin: 03/06/23 23:00 Dose: 20 units Ipratropium [place] (Ipratropium [place] 0.5 Mg/2.5 Ml Vial.Neb) 0.5 mg INHALATION QID.RESP [facility] Stop: 03/02/24 07:59 Last Admin: 03/07/23 11:09 Dose: 0.5 mg Pregabalin (Pregabalin 75 Mg Capsule) 75 mg PO BID [facility] Stop: 09/01/23 12:59 Last Admin: 03/07/23 08:05 [...] identified. Patient is okay for transfer to residential facility. That is pending approval on Thursday [...] signed by DO Devin Starks> 03/07/23 1221 [facility] Work Phone: Progress note Author Fermin Rodríguez [facility] March 07, 2023 6:00pm Note Date/Time March 07, 2023 6:00 pm [facility] [address] [place] [address] Hospitalist Progress Note Signed Patient: Akbar Byrnes MR#: [id number] : 1960 Acct:[id number] Age/Sex: 62 / M Adm Date: 3 Loc: 4N Room: [address] [place] [address] Type: ADM IN Attending Dr: Devin Starks DO Copies to: ~ Date of Service: 03/07/2023 Subjective Subjective Narrative: I personally saw and examined patient at the bedside this afternoon. No new complaints. Now on the [facility] floor. Physical Examination: GENERAL APPEARANCE: [...] Insuln.Pen SUBCUT 03/06/24 21:59 QHS MICH Ipratropium [place] 0.5 mg 03/03/23 08:00 03/07/23 15:31 Ipratropium [place] 0.5 Mg/2.5 Ml Vial.Neb INHALATION 03/02/24 07:59 0.5 mg QID.RESP MICH Administration Pregabalin 75 mg 03/05/23 13:00 03/07/23 08:05 Pregabalin 75 Mg Capsule PO 09/01/23 12:59 75 mg BID [facility] Administration Documented By: Fermin Rodríguez DO 03/07/23 59 Signed By: <Electronically signed by Fermin Rodríguez DO> 03/07/23 1800 [facility] Work Phone: Progress note Author Devin Starks [facility] March 08, 2023 1:35pm Note Date/Time March 08, 2023 1:35 pm [facility] [address] [place] [address] General Surgery Progress Note Signed Patient: Akbar Byrnes MR#: [id number] : 1960 Acct:[id number] Age/Sex: 62 / M Adm Date: 3 Loc: Room: [address] [place] [address] Type: ADM IN Attending Dr: Devin Starks [...] 81 Mg Tablet.Dr) 81 mg PO DAILY [facility] Stop: 03/02/24 08:59 Last Admin: 03/08/23 09:35 Dose: 81 mg Dextrose (Dextrose 50% In Water 25 Gm/50 Ml Syringe) 0 gm IV-PUSH PRN PRN PRN Reason: Hypoglycemia Stop: 03/02/24 02:01 Last Admin: 03/04/23 08:40 Dose: 25 gm Docusate Sodium (Docusate 100 Mg Capsule) 100 mg PO BID [facility] Stop: 03/02/24 08:59 Last Admin: 03/08/23 09:26 Dose: 100 mg Enoxaparin Sodium (Enoxaparin 40 Mg/0.4 Ml Syringe) 40 mg SUBCUT DAILY@1000 [facility] Stop: 03/02/24 09:59 Last Admin: 03/08/23 09:35 Dose: 40 mg Famotidine (Famotidine 20 Mg Tablet) 20 mg PO BID [facility] Stop: 03/04/24 08:59 Last Admin: 03/08/23 09:26 Dose: 20 mg Glucose (Dextrose 40% Gel 15 Gm Tube) 0 gm PO PRN PRN PRN Reason: Hypoglycemia Stop: 03/02/24 02:01 Guaifenesin (Guaifenesin 600 Mg Tab.Er.12h) 1,200 mg PO BID [facility] Stop: 03/04/24 20:59 Last Admin: 03/08/23 09:35 Dose: 1,200 mg Hydromorphone HCl (Hydromorphone 1 Mg/Ml Syringe) 0.5 mg IV-PUSH Q3H PRN PRN Reason: pain Last Admin: 03/08/23 11:28 Dose: 0.5 mg Insulin Aspart (Insulin Aspart 300 Units/3 Ml Insuln.Pen) 0 units SUBCUT TID.WM.HS [facility]; Protocol Stop: 03/02/24 07:59 Last Admin: 03/08/23 12:08 Dose: 8 units Insulin Glargine (Insulin Glargine 300 Units/3 Ml Insuln.Pen) 30 units SUBCUT QHS [facility] Stop: 03/06/24 21:59 Last Admin: 03/07/23 21:25 Dose: 30 units Ipratropium [place] (Ipratropium [place] 0.5 Mg/2.5 Ml Vial.Neb) 0.5 mg INHALATION QID.RESP [facility] Stop: 03/02/24 07:59 Last Admin: 03/08/23 11:44 Dose: 0.5 mg Pregabalin (Pregabalin 75 Mg Capsule) 75 mg PO BID [facility] Stop: 09/01/23 12:59 Last Admin: 03/08/23 09:26 [...] identified. Patient is okay for transfer to residential facility. That is pending approval on Thursday. Will start Robitussin. Add MiraLAX Code(s): W17.89XA [...] <Electronically signed by DO Devin Starks> 03/08/23 1335 [facility] Work Phone: Progress note Author Fermin Rodríguez [facility] March 08, 2023 3:17pm Note Date/Time March 08, 2023 3:17 pm [facility] [address] [place] [address] Hospitalist Progress Note Signed Patient: Akbar Byrnes MR#: [id number] : 1960 Acct:[id number] Age/Sex: 62 / M Adm Date: 3 Loc: 4N Room: [id number] Type: ADM IN Attending Dr: Devin Starks DO Copies to: ~ Date of Service: 03/08/2023 Subjective Subjective Narrative: I personally saw and examined patient at the bedside this afternoon. No new complaints. [facility]. Reports constipation Physical Examination: GENERAL APPEARANCE: [...] Insuln.Pen SUBCUT 03/06/24 21:59 QHS [facility]ICH Ipratropium [place] 0.5 mg 03/03/23 08:00 03/08/23 11:44 Ipratropium [place] 0.5 Mg/2.5 Ml Vial.Neb INHALATION 03/02/24 07:59 0.5 mg QID.RESP [facility]ICH Administration Methylnaltrexone [place] 12 mg 03/08/23 15:12 Methylnaltrexone [place] 12 Mg/0.6 Ml Vial SUBCUT 03/08/23 15:13 [...] with you thank you Documented By: Fermin Rodríguez, 03/08/23 15 15 Signed By: <Electronically signed by Fermin Rodríguez DO> 03/08/23 0624 [facility] Work Phone: Summary Purpose Family History No [...] Records FoundNo Status Records FoundNo Status Records FoundNo Status Records Found INFORMATION SOURCE (unrecogn ized section and content) DATE CREATED AUTHOR 10/25/2022 [facility] [employer] DATE CREATED AUTHOR AUTHOR'S ORGANIZ ATION 12/11/2022 [facility] DATE CREATED AUTHOR AUTHOR'S ORGANIZ ATION 08/07/2023 [facility] DATE CREATED AUTHOR AUTHOR'S ORGANIZ ATION 09/30/2023 [facility] Care Teams (unrecognized sec tion and content) Team Status: Active Member Role Status Dates NON STAFF Primary Care Provider Active Team Status: Active Member Role Status Dates Zachariah Saldaña Jr, MD Emergency Provider Active NON STAFF Primary Care Provider Active Devin Starks DO Admit Provider, Attending Provider Ac tive Building Mechanic Relationship Specialty Start Date End Date Shaikh Villar MD PCP - General Internal Medicine 02/11/23 Goals (unrecognized section and content) Goals may be documented in a n alternate section Reason for Visit (unrecogniz ed section and content) Reason Comments Abdominal Pain Abd pain ongoing sin ce yesterday. PRN Active and Recently Administ ered Medications (unrecognized section and content) Medication Order 09/05/2023 09/06/2023 09/07/2023 iopamidol (ISOVUE-370) 76 % injection 75 mL (COMPLETED) 75 mL, IntraVENous, IMG ONCE PRN, 1 dose, Starting on 09/06/23 at 2210, Until 09/06/23 at 2211, Other 2211 (Given - Provider: Felisha Klein) FOR RECORDS PERTAINING TO PATIENTS WHO ARE [...] BE BASED ON THE PRIMARY CLINICAL RECORDS. [employer] [facility]. provides no warranty or guarantee of the accuracy or completeness of information in this document.
[2023-10-14 21:54] LABS: Hematocrit 43.5 % (42.0-54.0); Hemoglobin 14.2 g/dL (14.0-18.0); Mean Corpuscular HGB Conc 32.6 g/dL (29.9-35.2); Mean Corpuscular Hemoglobin 31.1 pg (25.9-34.0); Mean Corpuscular Volume 95.2 fL (80.0-94.0); Mean Platelet Volume 11.6 fL (9.5-13.5); Platelet Count 241 10^3/uL (150-450); Red Blood Count 4.57 10^6/uL (4.70-6.10); Red Cell Distribution Width 13.3 % (11.0-15.0); White Blood Count 8.2 10^3/uL (4.0-11.0)
[2023-10-14 22:09] LABS: Alanine Aminotransferase 93 U/L (16-63); Albumin Globulin Ratio 0.7; Albumin Level 3.2 g/dL (3.4-5.0); Alkaline Phosphatase 108 U/L (46-116); Anion Gap 7.3; Aspartate Amino Transferase 48 U/L (15-37); BUN Creatinine Ratio 25.7; Bilirubin Total 0.3 mg/dL (0.2-1.0); Calcium 10.4 mg/dL (8.5-10.1); Carbon Dioxide 31.9 mmol/L (21.0-32.0); Chloride 106 mmol/L (98-107); Estimated GFR (African America >60 (>=60); Estimated GFR (Non-African Ame >60 (>=60); Globulin 4.7 g/dL; Glucose 69 mg/dL (74-106); Potassium 4.2 mmol/L (3.5-5.1); Sodium 141 mmol/L (136-145); Total Protein 7.9 g/dL (6.4-8.2)
== END 2023-10-14 20:45 | disposition home or self-care (01) ==
LOC: LAB 20:44
PROVIDERS: PCP Internal Medicine
DX: R53.83 Other fatigue (principal)
CPT/HCPCS: 36415; 80053; 85027

== ENCOUNTER 2024-04-26 15:06 | Outpatient (OUT) | payer OTHER, SELFPAY | END 2024-04-26 15:07 | disposition home or self-care (01) | LOC: WC 15:16 | PROVIDERS: PCP Internal Medicine; Visit Provider Physician Assistant | DX: L84 Corns and callosities (principal); E11.621 Type 2 diabetes mellitus with foot ulcer; L97.518 Non-pressure chronic ulcer of other part of right foot with other specified severity; E11.40 Type 2 diabetes mellitus with diabetic neuropathy, unspecified | CPT/HCPCS: 11056; G0463 ==

== ENCOUNTER 2024-05-23 16:13 | Outpatient (OUT) | payer MEDICAID, SELFPAY | END 2024-05-23 16:14 | disposition home or self-care (01) | LOC: WC 16:13 | PROVIDERS: PCP Internal Medicine; Visit Provider Physician Assistant | DX: L84 Corns and callosities (principal) | CPT/HCPCS: 11055 ==

== ENCOUNTER 2024-08-23 15:32 | Outpatient (OUT) | payer MEDICAID, SELFPAY | END 2024-08-23 15:33 | disposition home or self-care (01) | LOC: WC 15:32 | PROVIDERS: PCP Internal Medicine; Visit Provider Physician Assistant | DX: L84 Corns and callosities (principal); L60.3 Nail dystrophy | CPT/HCPCS: 11056; 11721 ==

== ENCOUNTER 2025-01-12 13:35 | Outpatient (OUT) | payer MEDICAID, SELFPAY ==
--- NOTE | 2025-01-12 14:45 | PM.WCHP ---
Wound Care H&P: HPI History of Present Illness Narrative: The patient is a 64-year-old gentleman with history of type 2 diabetes and current halfway resident who presents for routine nail care. He complains of painful calluses beneath first metatarsal heads bilaterally. He also complains of burning and tingling in his feet. [facility] Medical History (Updated 01/12/25 @ 14:49 by DOMONIQUE Juarez) History of traumatic brain injury ?Z87.820 - Personal history of traumatic brain injury (ICD-10) Delirium due to multiple etiologies ?F05 - Delirium due to known physiological condition (ICD-10) Anxiety about health ?R45.89 - Other symptoms and signs involving emotional state (ICD-10) Hyperglycemia due to type 2 diabetes mellitus ?E11.65 - Type 2 diabetes mellitus with hyperglycemia (ICD-10) Chronic obstructive pulmonary disease with (acute) exacerbation ?J44.1 - Chronic obstructive pulmonary disease with (acute) exacerbation (ICD-10) Hypertension ?I10 - Essential (primary) hypertension (ICD-10) Delirious ?R41.0 - Disorientation, unspecified (ICD-10) Acute respiratory failure ?J96.00 - Acute respiratory failure, unspecified whether with hypoxia or hypercapnia (ICD-10) COPD exacerbation ?J44.1 - Chronic obstructive pulmonary disease with (acute) exacerbation (ICD-10) Acute hyperglycemia ?R73.9 - Hyperglycemia, unspecified (ICD-10) Chronic pain ?G89.29 - Other chronic pain (ICD-10) BPH (benign prostatic hyperplasia) ?N40.0 - Benign prostatic hyperplasia without lower urinary tract symptoms (ICD-10) Dyspnea ?R06.00 - Dyspnea, unspecified (ICD-10) Hyperglycemia ?R73.9 - Hyperglycemia, unspecified (ICD-10) Closed head injury ?S09.90XA - Unspecified injury of head, initial encounter (ICD-10) Medical non-compliance ?Z91.199 - Patient's noncompliance with other medical treatment and regimen due to unspecified reason (ICD-10) COPD (chronic obstructive pulmonary disease) ?J44.9 - Chronic obstructive pulmonary disease, unspecified (ICD-10) Intractable back pain ?M54.9 - Dorsalgia, unspecified (ICD-10) Closed rib fracture ?S22.39XA - Fracture of one rib, unspecified side, initial encounter for closed fracture (ICD-10) Drug abuse ?F19.10 - Other psychoactive substance abuse, uncomplicated (ICD-10) Depression ?F32.A - Depression, unspecified (ICD-10) Failure to thrive Tobacco abuse ?Z72.0 - Tobacco use (ICD-10) Insomnia disorder ?G47.00 - Insomnia, unspecified (ICD-10) Hyperlipidemia associated with type 2 diabetes mellitus ?E11.69 - Type 2 diabetes mellitus with other specified complication (ICD-10) ?E78.5 - Hyperlipidemia, unspecified (ICD-10) Insulin dependent type 2 diabetes mellitus, uncontrolled Chronic obstructive pulmonary disease ?J44.9 - Chronic obstructive pulmonary disease, unspecified (ICD-10) Hypercholesteremia ?E78.00 - Pure hypercholesterolemia, unspecified (ICD-10) Diabetes ?E11.9 - Type 2 diabetes mellitus without complications (ICD-10) Surgical History History of total hip arthroplasty ?Z96.649 - Presence of unspecified artificial hip joint (ICD-10) Family History (Updated 09/02/23 @ 06:43 by Brandi Ba) Mother Family history of CHF (congestive heart failure) Family history of COPD (chronic obstructive pulmonary disease) Family history of diabetes mellitus Family history of hypertension Family history of stroke Father Family history of cancer Family history of diabetes mellitus Family history of hypertension Family history of myocardial infarction Social History (Updated 09/02/23 @ 06:44 by Brandi Ba) Within the past year, how often did you have a drink containing alcohol: 4 or more times a week Within the past year, how many standard drinks containing alcohol did you have on a typical day: 1 or 2 Within the past year, how often did you have six or more drinks on one occasion: never Total score: 0 Score interpretation: Questions 2 and 3 are 0. It can be assumed that the patient's drinking is below the recommended limits. However, please confirm the accuracy of the patient's alcohol intake over the last few months. Smoking status: Heavy tobacco smoker What tobacco products do you use: cigarettes Second hand tobacco smoke exposure: No Non-prescribed substance use: former substance user, crack/cocaine and opiods/painkillers Previous occupational history: disabled Known occupational exposures/hazards: No Highest level of school completed/degree received: 12th grade, no diploma Do you want help with school or training: No Are you now , , , , never or living with a partner: refused to answer In a typical week, how many times do you talk on the telephone with family, friends, or neighbors: never How often do you get together with friends or relatives: never How often do you attend quaker or confucianism services: never Do you belong to any clubs or organizations such as quaker groups unions, [employer] or athletic groups, or school groups: no Total score: 0 Score interpretation: A score of less than or equal to 1 indicates the most socially isolated. Little interest or pleasure in doing things: several days Feeling down, depressed, or hopeless: several days Feel stressed/tense/nervous/anxious/difficulty sleeping: decline to answer Life stressors: unknown source of stress Due to disability, difficulty making decisions: No Do you think of yourself as: straight/heterosexual Gender Identity: male Meds Home Medications and Allergies Home Medications ?Medication ?Instructions ?Recorded ?Confirmed ?Type glipizide 10 mg tablet 10 mg PO DAILY 01/31/23 09/02/23 History quetiapine 50 mg tablet 50 mg PO .hs 01/31/23 09/02/23 History tamsulosin 0.4 mg capsule 0.4 mg PO DAILY 01/31/23 09/02/23 History tiotropium bromide 2.5 2 puff inhalation QDAY 01/31/23 09/02/23 History mcg/actuation mist for inhalation (Spiriva Respimat) insulin glargine 100 unit/mL 40 unit (0.4 mL) subcut BID 30 02/09/23 09/02/23 Rx subcutaneous solution (Lantus days #21 mL U-100 Insulin) aspirin 81 mg tablet,delayed 81 mg PO DAILY 02/26/23 09/02/23 History release hydroxyzine HCl 25 mg tablet 25 mg PO BID PRN anxiety 02/26/23 09/02/23 History ipratropium 20 mcg-albuterol 100 1 puff inhalation Q6H PRN sob 02/26/23 09/02/23 History mcg/actuation mist for inhalation (Combivent Respimat) lisinopril 2.5 mg tablet 2.5 mg PO DAILY 03/12/23 09/02/23 History metoprolol tartrate 25 mg tablet 25 mg PO BID 03/12/23 09/02/23 History Allergies Allergy/AdvReac Type Severity Reaction Status Date / Time No Known Allergies AdvReac Mild Verified 04/15/23 07:55 Exam Narrative: Exam Narrative: Derm: Toenails 1 through 10 are thickened, elongated, and painful.? No evidence of paronychia.? Skin is diffusely dry, thin, and atrophic.? Vascular: DP and PT pulses are faintly palpable bilaterally. Capillary refill is less than 3 seconds to all toes. Digital hair is absent bilaterally. Neuro: Vibratory sensation is absent bilaterally.? Achilles deep tendon reflexes are absent bilaterally.? Protective sensation was tested with a monofilament and is present in 0/5 areas tested on the right and 0/5 areas tested on the left.? Musculoskeletal: No gross deformity.? Strength 5/5 in all planes bilaterally. Palpable soft tissue mass noted medial to the first metatarsal shaft on the right foot. It is unclear if this is a multilobular mass or 2 separate soft tissue masses. No fluctuance, calor, or erythema to suggest infection/abscess. The masses are nontender to palpation and are mobile. Assessment and Plan Assessment and Plan (1) Type 2 diabetes mellitus with diabetic neuropathy, unspecified: (2) Tinea unguium: (3) Nail dystrophy: (4) Type 2 diabetes mellitus with other diabetic ophthalmic complication: (5) Unsteady gait when walking: Plan The patient is a 64-year-old gentleman with history of type 2 diabetes and neuropathy who presents for routine nail care. Nails were debrided and calluses on each foot were pared without incident. The patient did inquire about a soft tissue mass on the right medial foot. He was advised that this could be consistent with plantar fascial fibroma, however he notes the lesions are enlarging over the past 3 months. He was referred to podiatry for further workup. Follow-up for nail care in 3 months. Acute Procedures Podiatry Nail Debridement Class B Findings Advanced trophic changes as evidenced by any three of the following: decreased hair growth, nail changes (thickening) and skin texture (thin or shiny) Class C Findings Claudication: No Temperature changes: No Edema: No Nail debridement paresthesia (abnormal spontaneous sensations in the feet): Yes Burning: Yes Qualifies If: Qualifiers If:: A patient qualifies for nail debridement if they have: 1 class A finding (Q7) 2 class B findings (Q8) OR 1 class B & 2 class C findings in addition to a primary condition (Q9) Nail Procedure Nail Procedure Time out: Yes Nail procedure: other (Toenail debridement) Number of affected nails: 10 Location (toes): left and right Procedure successful: Yes Patient tolerated procedure: well and no complications Additional comments: Toenail 1 through 10 were sharply debrided without incident. Calluses beneath the first metatarsal heads bilaterally were pared using soft tissue nippers and a dermal curette without incident.
== END 2025-01-12 13:36 | disposition home or self-care (01) ==
LOC: WC 13:35
PROVIDERS: PCP Internal Medicine; Visit Provider Physician Assistant
DX: B35.1 Tinea unguium (principal); E11.40 Type 2 diabetes mellitus with diabetic neuropathy, unspecified; L60.3 Nail dystrophy; E11.39 Type 2 diabetes mellitus with other diabetic ophthalmic complication; R26.89 Other abnormalities of gait and mobility
CPT/HCPCS: 11056; 11721

== ENCOUNTER 2025-04-13 12:55 | Outpatient (OUT) | payer OTHER, SELFPAY ==
--- OUTSIDE RECORDS SUMMARY | 2025-04-04 09:15 | XMS_ITS ---
Author Organization [facility] Address [address] [place] [address] [address] [place] [address] Care Team Providers Care Hydraulic Billet Maker Name Role Phone TIN PACHECO Unavailable [phone] BRITNI REYES Unavailable [phone] Allergies No Known Allergies REASON FOR VISIT COPD Social History Tobacco Use: Social History Observation Description Date Details (start date - stop date) Current Smoker NA - NA Tobacco Control (Standard) Question Answer Notes Tobacco use: Current smoker Problems Problem Type SNOMED Code ICD Code Onset Dates Problem Status W/U Status Risk Notes Problem Chronic obstructive pulmonary disease, unspecified (J44.9) Active confirmed Encounters Encounter Location Date Provider Diagnosis [address] [place] [address] 04/04/2025 BRITNI REYES Chronic obstructive pulmonary disease, unspecified J44.9 and Tobacco abuse Z72.0 Assessments Encounter Date Diagnosis (ICD Code) Assessment Notes Treatment Notes Treatment Clinical Notes Section Notes 04/04/2025 Chronic obstructive pulmonary disease, unspecified (ICD-10 - J44.9) 04/04/2025 Tobacco abuse (ICD-10 - Z72.0) 04/04/2025 Other Seen in collaboration and discussed plan of care with Dr. Tin Pacheco Plan Of Treatment Treatment Notes Assessment Notes Other Seen in collaboratio n and discussed plan of care with Dr. Tin Pacheco Next Appt Details Follow Up: 1 Week, Reason: Progress Notes * Akbar BYRNESDOB: [birth year] (64 yo M)Acc No.[id number]:04/04/2025 Progress Notes Patient: Akbar DO Appointment Provider: Zachariah Reyes NP :1960 A ge:64 Y S ex:Male Date:04/04/2025 Phone: Address:, Subjective: * Chief Complaints: * C OPD * HPI: [place] Up: Continuing to see patient for pulmonary management. Came on 10/19/23. Evaluated patient with RT director. Hx COPD with current smoking. Performed bedside rounds with the respiratory therapist today. Discussed the patients pulmonary status and current orders. Discussed concerns or needs by RT. Continue the orders at this time. Impression: COPD/ Tobacco abuse Type 2 DM Anxiety, depression, bipolar Chronic encephalopathy, s/t prolonged methamphetamine use Hx aspiration pneumonia, tx with Unasyn Plan: On room air Advair 1 puff BID Spiriva 2 puffs daily inhaler Albuterol inhaler PRN Declines smoking cessation education CXR 03/17/25 negative for acute findings DNRCCA Will continue to monitor pulmonary status. * ROS: A ll Other Systems: Review of Systems (ROS) A ll others negative except those mentioned in HPI,See HPI for details. * Medical History: * Surgical History: R nii * Hospitalization/Major Diagno stic Procedure: [facility] * Family History: N on-Contributory. * Social History: T obacco Use: T obacco Control (Standard) T obacco use: C urrent smoker * Medications: * Allergies: N .K.D.A.no[Allergies Verified] Objective: * Vitals: * Examination: G eneral Examination: GENERAL APPEARANCE: i n no acute distress, well developed, well nourished. ORAL CAVITY: m ucosa moist. THROAT: n ormal. NECK/THYROID: n jaime supple, full range of motion, no cervical lymphadenopathy. SKIN: n o suspicious lesions, warm and dry. HEART: n o murmurs, regular rate and rhythm, S1, S2 normal.? LUNGS: c lear to auscultation bilaterally. EXTREMITIES: n o clubbing, cyanosis, or edema. ? Assessment: * Assessment: 1. C hronic obstructive pulmonary disease, unspecified - J44.9 (Primary) 2 .?Tobacco abuse - Z72.0 Plan: * Treatment: * Procedure Codes: * Follow Up: 1 Week * * Sign off status: Completed true * Appointment Provider: Zachariah Reyes NP Date: 0 04/04/2025 Generated for Aniya beltran/Sara/eTransmitting on: 0 04/13/2025 12:59 PM EDT History and Physical Notes * HPI (History of Present Illness) Category Sub-Category Detail Notes Category Not es Follow Up Continuing to see patient for pulmonary management. Came on 10/19/23. Evaluated patient with RT director. Hx COPD with current smoking. Performed bedside rounds with the respiratory therapist today. Discussed the patients pulmonary status and current orders. Discussed concerns or needs by RT. Continue the orders at this time. Impression: COPD/ Tobacco abuse Type 2 DM Anxiety, depression, bipolar Chronic encephalopathy, s/t prolonged methamphetamine use Hx aspiration pneumonia, tx with Unasyn Plan: On room air Advair 1 puff BID Spiriva 2 puffs daily inhaler Albuterol inhaler PRN Declines smoking cessation education CXR 03/17/25 negative for acute findings DNRCCA Will continue to monitor pulmonary status Examination Category Sub-Category Detail Notes Category Not es General Examination GENERAL APPEARANCE: in no ac [place] distress, well developed, well nourished THROAT: normal NECK/THYROID: neck supple, full ra nge of motion, no cervical lymphadenopathy HEART: no murmurs, regular rate and rhythm, S1, S2 normal LUNGS: clear to auscultatio n bilaterally SKIN: no suspicious lesion s, warm and dry EXTREMITIES: no clubbing, cyanosi s, or edema ORAL CAVITY: mucosa moist
--- OUTSIDE RECORDS SUMMARY | 2025-04-13 12:59 | XMS_ITS | Encounter Summary ---
Author Organization [employer] [facility] [facility] Address [id number] [address] [place] [address] Care Team Providers Care Jewel Bearing Broacher Name Role Phone Daniel Oswald MD Primary Care Provider [phone] Encounter Details Date Type Department Care Team (Late st Contact Info) Description 04/21/2024 Orders Only [facility] [address] [id number] Deandra Davis, SARA SOB (shortness of breath) (Primary Dx) Social History Tobacco Use Types Packs/Day Years Used Date Smoking Tobacco: Every Day Cigarettes 5 50 Smokeless Tobacco: Former Chew Quit: 09/05/2009 Alcohol Use Standard Drinks/Week Comments Not Currently 2 (1 standard drink = 0.6 oz pur e alcohol) [facility] Utilities Answer Date Recorded In the past 12 months has [employer], gas, oil, or water [employer] threatened to shut off services in your home? No 10/15/2023 PHQ-2 Answer Date Recorded Total Score 0 02/04/2021 PRAPARE - Transportation Answer Date Re corded In the past 12 months, has l ack of transportation kept you from medical appointments or from getting medications? No 09/18 In the past 12 months, has l ack of transportation kept you from meetings, work, or from getting things needed for daily living? No 10/15/2023 Housing Instability Answer Date Recorde d Are you worried or concerned that in the next two months you may not have stable housing that you own, rent or stay in as a part of a household? No 10/15/2023 Childcare Answer Date Recorded Childcare Unknown 01/26/2019 Employment Answer Date Recorded Employment Unknown 01/26/2019 Hunger Screening Answer Date Recorded Within the past 12 months we worried whether our food would run out before we got money to buy more. Never True 03/08/2024 Within the past 12 months th e food we bought just didn't last and we didn't have money to get more. Never True 03/08/2024 Purpose - Life Answer Date Recorded Purpose and direction in life Unknown Sex and Gender Information Value Date Recorded Sex Assigned at Not on file Legal Sex Male 11:23 AM EDT Gender Identity Not on file Sexual Orientation Not on file documented as of this encounter Plan of Treatment Not on file documented as of this encounter Goals Goal Patient Goal Type Associated Problems Recent Progress Patient-Stated? Author per pt sister Delma, return to [facility] Yes Zoraida Aaron LSW Note: Evaluation of progress towards goal: under assessment documented as of this encounter Visit Diagnoses Diagnosis SOB (shortness of breath)- Primary Shortness of breath documented in this encounter Additional Health Concerns Assessment Noted Time PHQ-9 Depression Total Score: 0 02/05/20 21 12:46 PM EDT A Body Mass Index follow-up plan has been documented for the patient 02/13/2021 10:04 PM EDT documented as of this encounter Care Teams Jewel Bearing Broacher Relationship Specialty Start Date End Date Daniel Oswald MD [address] [place] [address] PCP - General Internal Medicine 10/14/23 documented as of this encounter
--- OUTSIDE RECORDS SUMMARY | 2025-04-13 12:59 | XMS_ITS | Patient Health Record ---
Author Organization [facility] Address [address] [place], [place] [id number] Care Team Providers Care School Child Care Attendant Name Role Phone Manohar Zurita Unavailable [phone] Allergies No Known Allergies Reason For Referral No Information Medications Medication SIG (Take, Route, Frequency, Duration) Notes Start Date End Date Status Drug [place] Unifine Pentips 31G X 6 MM use WITH insulin FOUR TIMES DAILY NEEDED; Duration: 30 Active Tresiba FlexTouch 100 UNIT/ML 80 units Subcutaneous daily; Duration: 90 days 10/14/2021 Active amLODIPine Besy-Benazepril HCl 10-20 MG 1 tablet Orally daily; Duration: 90 days Active Tamsulosin HCl 0.4 mg TAKE 1 CAPSULE BY MOUTH DAILY Orally Once a day; Duration: 90 days Active Pioglitazone HCl 30 mg 1 tablet Orally Once a day; Duration: 90 days Active Pregabalin 150 mg TAKE 1 CAPSULE BY MOUTH THREE TIMES DAILY Orally three times a day; Duration: 30 10/23/2021 Active Aspirin Adult Low Strength 81 mg TAKE 1 TABLET BY MOUTH DAILY Orally Once a day; Duration: 90 days Active Spiriva HandiHaler 18 mcg 1 capsule by inhaling the contents of the capsule using the HandiHaler device Inhalation Once a day; Duration: 90 days Active Atorvastatin Calcium 40 MG TAKE 1 TABLET BY MOUTH DAILY Orally Once a day; Duration: 90 days Active hydrOXYzine HCl 50 MG TAKE 1 TABLET BY MOUTH THREE TIMES DAILY Orally every 8 hrs; Duration: 30 day(s) for panic attacks Active Combivent Respimat 20-100 MCG/ACT INHALE 2-4 PUFF Inhalation every 6 hrs; Duration: 90 days Active QUEtiapine Fumarate 200 MG 1 tablet at bedtime Orally Once a day; Duration: 90 days 10/24/2021 Active Escitalopram Oxalate 20 mg 1 tablet Orally Once a day; Duration: 90 days Active Drug [place] Unilet Lancets 28G - use to check BLOOD SUGAR THREE TIMES DAILY WITH MEALS; Duration: 30 Active BD Swab Single Use Regular - APPLY 1 application topically TWICE DAILY; Duration: 30 Active Immunizations Vaccine Route Administration Date Status Comme nts *Pneumococcal polysaccharide [id number] IM Intramuscular 05/29/2021 Administered Status:Complet e ,Reason:Given or N/A Influenza, inj, MDCK, preservative free, q.valent IM Intramuscular 05/29/2021 Administered Status:Complet e ,Reason:Given or N/A Social History Tobacco Use: Social History Observation Description Date Details (start date - stop date) Current Smoker NA - NA Sex Assigned At : Social History Observation Description Sex Assigned At Male Household Question Answer Notes Marital status: single Tobacco Use/Smoking Question Answer Notes Tobacco use: current smoker How often do you smoke cigarettes? every day How many cigarettes a day do you smoke? -30 Problems Problem Type SNOMED Code ICD Code Onset Dates Problem Status W/U Status Risk Notes Problem Panic attack (453126036) Panic attack (F41.0) Active confirmed Problem Hepatitis C antibody test positive (949171481) Hepatitis C antibody test positive (R76.8) Active confirmed Problem Screening for malignant neoplasm of colon (103922451) Encounter for screening for malignant neoplasm of colon (Z12.11) Active confirmed Story:07-07 Cologuard negative,Desc ription:Colon cancer screening Problem Depression screening (961484192) Screening for depression (Z13.31) Active confirmed Description:D epression screen Problem Hypertension (96589105) Hypertension (I10) Active confirmed Comment:start ed on Amlodipine benazepril 10- BP is under much better control Patient was advised to limit sodium intake to 1.5g per day, exercising 150 min moderate intensity every week, weight loss of at least 10% of body weight for better control of HTN Medication adherence and required labs were discussed Will order labs as needed to monitor kidney function, Problem Current smoker (18076169) Current smoker (F17.200) Active confirmed Story:3-4 a day many years Low dose - normal, Problem Acquired keratoderma (812000396) Acquired keratoderma (L85.1) Active confirmed Comment:Instr ucted pt on pumice stone use after showering - use daily to keep growth of callus controlled. Apply urea cream to calluses twice a day. Recommended toe silipost pad to 4th L toe callus - paperwork dispensed., Problem Benign prostatic hyperplasia (274526782) BPH (benign prostatic hyperplasia) (N40.0) Active confirmed Problem Follow-up status (924534289) Follow up (Z09) Active confirmed Comment: 06/03- Sending letter to pt to notify of date and time for CT lung screening. 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, Problem COPD - Chronic obstructive pulmonary disease (89440015) COPD (chronic obstructive pulmonary disease) (J44.9) Active confirmed Comment:Advai r and will do Spiriva with albuterol,Sto ry:needs PFT Problem Dermatitis (874299307) Dermatitis (L30.9) Active confirmed Problem Vitamin D deficiency (93843377) Vitamin D deficiency (E55.9) Active confirmed Problem Requires vaccination (906207675) Need for immunization against influenza (Z23) Active confirmed Story:Flu and Pneumovax - Tdap next time,Descript ion:Influenza vaccine needed Problem Type II diabetes mellitus uncontrolled (428989242) Diabetes mellitus type II, uncontrolled (E11.65) Active confirmed Comment:Tresi ba 80 u daily , uses manoj max glucometer A1c 10.5 - ordered Trulicity last time, never got it ,Story:Metfor min could not tolerate signed Pregabalin contract 2020, needs urine test 2021 A1c is 10.8 -, Problem Pain in limb (05398051) Acute foot pain (M79.673) Active confirmed Problem Diabetic peripheral neuropathy (742876617) Diabetic peripheral neuropathy (E11.42) Active confirmed Story:needs Oncology Registrar for assesssment for diabetic shoes, Problem Plantar fascial fibromatosis (36919412) Fibromatosis, plantar (728.71) (728.71) Active confirmed Comment:Discu ssed diagnosis of plantar fibroma along with treatment options. Recommended starting with supportive shoes. Pt states he has OTC inserts at home. Gave him an offloading pad to try in one of his inserts to see if this improved his symptoms at the fibroma. Also discussed the possibility of local steroid injection. Reviewed that these lesions have a high recurrence rate with or without surgery, Problem Depression (172256360) Depression (F32.A) Active confirmed Comment:on Lexapro 20 and added Hydroxyzine 25 TID for pancs, Plan Of Treatment No Information Insurance Providers Payer Name Payer Address Payer Phone Subscriber Number Group Number Insured Name Patient Relationship to Insured Coverage Start Date Coverage End Date [employer] ABD [facility] [address] [place], [place] [id number] JONAORAkbar Lanier Self - patient is the insured 7 Medicaid ABD after [employer] [address] [place] [id number] Akbar Byrnes Self - patient is the insured Medical (General) History Medical History History ICD Code Anxiety COPD (chronic obstructive pulmonary dise ase) Current smoker Depression Diabetes mellitus type II, uncontrolled Diabetic peripheral neuropathy Hyperlipidemia Hypertension Panic Attacks Surgical History Surgery Date(Month/Year) Arm Surgery Hip replacement - L Arm surgery - L
--- OUTSIDE RECORDS SUMMARY | 2025-04-13 12:59 | XMS_ITS | Encounter Summary ---
Author Organization [employer] [facility] Address [id number] [place] [address] Care Team Providers Care Instructional Coach Name Role Phone Daniel Oswald MD Primary Care Provider [phone] Encounter Details Date Type Department Care Team (Late st Contact Info) Description 04/13/2024 Telephone [facility] [address] [address] Betsy Iraheta DO [address] [address] Social History Tobacco Use Types Packs/Day Years Used Date Smoking Tobacco: Every Day Cigarettes 5 50 Smokeless Tobacco: Former Chew Quit: 09/05/2009 Alcohol Use Standard Drinks/Week Comments Not Currently 2 (1 standard drink = 0.6 oz pur e alcohol) [facility] Utilities Answer Date Recorded In the past 12 months has e electric, gas, oil, or water company threatened to shut off services in your [...] on file documented as of this encounter Miscellaneous Notes * Telephone Encounter - Nila Weeks - 04/13/2024 11:20 AM EDT [place] patient scheduled 05/19 in [place] with for aspiration pneumonia. Will need pft order. Reminder faxed to [facility]. * Telephone Encounter - Deandra Davis RN - 04/13/2024 11:20 AM EDT Order placed. Thanks documented in this encounter Plan of Treatment Not on file documented as of this encounter Goals Goal Patient Goal Type Associated Problems Recent Progress Patient-Stated? Author per pt sister Delma, return to [facility] Yes Zoraida Aaron, OJ Note: Evaluation of progress towards goal: under assessment documented as of this encounter Visit Diagnoses Not on filedocumented in this encounter Additional Health Concerns Assessment Noted Time PHQ-9 Depression Total Score: 0 02/05/20 21 12:46 PM EDT A Body Mass Index follow-up plan has been documented for the patient 02/13/2021 10:04 PM EDT documented as of this encounter Care Teams Instructional Coach Relationship Specialty Start Date End Date Daniel Oswald MD [address] [place] [address] PCP - General Internal Medicine 10/14/23 documented as of this encounter
--- OUTSIDE RECORDS SUMMARY | 2025-04-13 12:59 | XMS_ITS | Encounter Summary ---
Author Organization [employer] [facility] Address [facility]-[id number] [address] [place] [address] Care Team Providers Care Crystal Syrup Maker Name Role Phone Daniel Oswald MD Primary Care Provider [phone] Encounter Details Date Type Department Care Team (Late st Contact Info) Description 04/07/[address] [facility] Th[facility] [address] [facility] [address] [place] [address] Donna Lara MD [address] [facility] [address] [place] [address] Social History Tobacco Use Types Packs/Day Years Used Date Smoking Tobacco: Every Day Cigarettes 5 50 Smokeless Tobacco: Former Chew Quit: 09/05/2009 Alcohol Use Standard Drinks/Week Comments Not Currently 2 (1 standard drink = 0.6 oz pur e alcohol) [facility] Utilities Answer Date Recorded In the past [...] encounter Miscellaneous Notes * Telephone Encounter - Dania Candelaria - 04/07/2024 11:04 AM EDT Patient called and stated she is not able to come to the appt with him. She is requesting a call to discuss the summary of the visit afterwards. She stated the [facility] does not provide her with good information. * Telephone Encounter - Lindsey Barrera CNA - 04/07/2024 11:04 AM EDT Message from patients sister. He is your 1pm patient today * Telephone Encounter - Donna Lara MD - 04/07/2024 11:04 AM EDT I called the provided number and got voicemail. HIPAA compliant vm left. documented in this encounter Plan of Treatment Not on file documented as of this encounter Goals Goal Patient Goal Type Associated Problems Recent Progress Patient-Stated? Author per pt sister Delma, return to [facility] Yes Zoraida Aaron, SHORE MAN Note: Evaluation of progress towards goal: under assessment documented as of this encounter Visit Diagnoses Not on filedocumented in this encounter Additional Health Concerns Assessment Noted Time PHQ-9 Depression Total Score: 0 02/05/20 12:46 PM EDT A Body Mass Index follow-up plan has been documented for the patient 02/13/2021 10:04 PM EDT documented as of this encounter Care Teams Crystal Syrup Maker Relationship Specialty Start Date End Date Daniel Oswald MD [address] [place] [address] PCP - General Internal Medicine 10/14/23 documented as of this encounter
--- OUTSIDE RECORDS SUMMARY | 2025-04-13 12:59 | XMS_ITS | Encounter Summary ---
Author Organization [facility] Address [facility] [id number] [address] [place] [address] Care Team Providers Care Dining Room Helper Name Role Phone Daniel Oswald MD Primary Care Provider [phone] Encounter Details Date Type Department Care Team (Late st Contact Info) Description 05/11/2024 Telephone [facility] - ENT [address] [facility] [place] [address] Kayleigh Diallo CNA Social History Tobacco Use Types Packs/Day Years Used Date Smoking Tobacco: Every Day Cigarettes 5 50 Smokeless Tobacco: Former Chew Quit: 09/05/2009 Alcohol Use Standard Drinks/Week Comments Not Currently 2 (1 standard drink = 0.6 oz pur e alcohol) [facility] Utilities Answer Date Recorded In [...] encounter Miscellaneous Notes * Telephone Encounter - Kayleigh Diallo CNA - 05/11/2024 10:52 AM EDT Attempted to call nursing facility he lives at, I got transferred and then the phone got hung up. Attempted to call his sister and LVM for her to give me a call back. Patient is scheduled with Neurology on 06/29/24. ----- Message from Dr. Donna Lara MD sent at 05/04/2024 9:40 AM EDT ----- Please let the patient know that his swallow study shows aspiration, meeting food is going down into his airway. I am awaiting the speech language pathologist's report and recommendations. I do not see an appointment with a neurologist. Can you please see that he gets an appointment with Neurology b daphne seeing me? Please also encourage the patient to bring his family with him at his next visit so we can talk about next steps. * Telephone Encounter - Dania Candelaria - 05/11/2024 10:52 AM EDT Patient guardian returned the call. Informed her of the appt with Neurology documented in this encounter Plan of Treatment Not on file documented as of this encounter Goals Goal Patient Goal Type Associated Problems Recent Progress Patient-Stated? Author per pt sister Delma, return to [facility] Yes Zoraida Aaron, OJ Note: Evaluation of progress towards goal: under assessment documented as of this encounter Visit Diagnoses Not on filedocumented in this encounter Additional Health Concerns Assessment Noted Time PHQ-9 Depression Total Score: 0 02/05/20 12:46 PM EDT A Body Mass Index follow-up plan has been documented for the patient 02/13/2021 10:04 PM EDT documented as of this encounter Care Teams Dining Room Helper Relationship Specialty Start Date End Date Daniel Oswald MD [address] [place] [address] PCP - General Internal Medicine 10/14/23 documented as of this encounter
--- OUTSIDE RECORDS SUMMARY | 2025-04-13 12:59 | XMS_ITS | Encounter Summary ---
Author Organization [employer] [facility] [employer] Address [id number] [address] [place] [address] Care Team Providers Care Shuttle Car Operator Name Role Phone Daniel Oswald MD Primary Care Provider [phone] Encounter Details Date Type Department Care Team (Late st Contact Info) Description 11/13/2022 Orders Only [facility] [address] [place] [phone] Nader Darden, DPM [address] [place] [address] Social History Tobacco Use Types Packs/Day Years Used Date Smoking Tobacco: Every Day Cigarettes 5 50 Smokeless Tobacco: Former Chew Quit: 09/05/2009 Alcohol Use Standard Drinks/Week Comments Not Currently 2 (1 standard drink = 0.6 oz pur e alcohol) PHQ-2 Answer Date Recorded Total Score 0 02/04/2021 Childcare Answer Date Recorded Childcare Unknown 01/26/2019 Employment Answer Date Recorded Employment Unknown 01/26/2019 Purpose - Life Answer Date Recorded Purpose and direction in life Unknown Sex and Gender Information Value Date Recorded Sex Assigned at Not on file Legal Sex Male 11:23 AM EDT Gender Identity Not on file Sexual Orientation Not on file COVID-19 Exposure Response Date Recorded In the last month, have you been in contact with someone who was confirmed or suspected to have Coronavirus / COVID-19? No / Unsure 11/10/2022 4:01 PM EDT documented as of this encounter Mental Status * Question Answer Entry Date Author Overall Cognitive Status X 11/16/2022 1:19 PM EDT Maine Mendoza, OTR/L documented in this encounter Plan of Treatment Not on file documented as of this encounter Procedures Procedure Name Priority Date/Time Associated Diagnosis Comments VASC ARTERIAL DOPPLER LOWER BILATERAL MULTI LEVEL/PVR Routine 11/13/2022 documented in this encounter Results * Vas art doppler lwr bilat mult lev/PVR (11/13/2022) Anatomical Region Laterality Modality Vascular Bilateral Ultrasound us Nader Darden DPM CV VASCULAR ORDERABLES Fi nal Result documented in this encounter Visit Diagnoses Not on filedocumented in this encounter Additional Health Concerns Infection Onset Date Last Indicated Resolved Time COVID-19 Rule-Out 11/19/2022 11/19/2022 11/21/2022 8:23 AM EDT COVID-19 Rule-Out 10/14/2023 10/14/2023 10/14/2023 11:17 PM EST Assessment Noted Time PHQ-9 Depression Total Score: 0 02/05/20 21 12:46 PM EDT A Body Mass Index follow-up plan has been documented for the patient 02/13/2021 10:04 PM EDT documented as of this encounter Care Teams Shuttle Car Operator Relationship Specialty Start Date End Date Daniel Oswald MD [address] [place] [address] PCP - General Internal Medicine 10/14/23 documented as of this encounter
--- OUTSIDE RECORDS SUMMARY | 2025-04-13 12:59 | XMS_ITS | Encounter Summary ---
Author Organization [facility] Address [id number] [address] [place] [address] Care Team Providers Care Courier Delivery Driver Name Role Phone Daniel Oswald MD Primary Care Provider Encounter Details Date Type Department Care Team (Late st Contact Info) Description 04/13/2024 Orders Only [facility] Pul[facility]/Sleep [facility] [address] [id number] Deandra Davis RN Panlobular emphysema ([facility]) (Primary Dx) Social History Tobacco Use Types Packs/Day Years Used Date Smoking Tobacco: Every Day Cigarettes 5 50 Smokeless Tobacco: Former Chew Quit: 09/05/2009 Alcohol Use Standard Drinks/Week Comments Not Currently 2 (1 standard drink = 0.6 oz pur e alcohol) [facility] Utilities Answer Date Recorded In the past [...] Author per pt sister Delma, return to [facility] Yes Zoraida Aaron LSW Note: Evaluation of progress towards goal: under assessment documented as of this encounter Results * SPIROMETRY PRE/POST BRONCHODILATOR AND DLCO AND PLETHYSMOGRAPHY (04/21/2024 1:45 PM EDT) Narrative MANUALLY TRANSCRIBED RESULTS - 05/04/2024 10:18 AM EDT Patient gave fair effort and data is reproducible. Note patient difficulty with testing FEV1/FVC is 65 with FEV1 59% predicted or 1.91 L in forced vital capacity 62% predicted or 2.93 L. There is no significant post bronchodilator response Lung volumes reveal significant hyperinflation and air trapping physiology by elevated residual volume 168% predicted or 4.17 L. Vital capacity is 82% predicted or 3.87 L Diffusion capacity is mildly reduced at 78 Impression: Moderate obstructive airflow defect is demonstrated without significant post bronchodilator response. There is evidence of hyperinflation and air trapping physiology. Please correlate with clinical and radiographic data us Betsy Iraheta DO PFT ORDERABLES Final Result MANUALLY TRANSCRIBED RESULTS documented in this encounter Visit Diagnoses Diagnosis Panlobular emphysema (CMS-HCC)- Primary Other emphysema Panlobular emphysema (CMS-HCC) Other emphysema documented in this encounter Additional Health Concerns Assessment Noted Time PHQ-9 Depression Total Score: 0 02/05/20 21 12:46 PM EDT A Body Mass Index follow-up plan has been documented for the patient 02/13/2021 10:04 PM EDT documented as of this encounter Care Teams Courier Delivery Driver Relationship Specialty Start Date End Date Daniel Oswald MD [address] [place] [address] PCP - General Internal Medicine 10/14/23 documented as of this encounter
--- OUTSIDE RECORDS SUMMARY | 2025-04-13 13:00 | XMS_ITS | Encounter Summary ---
Author Organization [employer] [facility] Address [facility]-[id number] [address] [place] [address] Care Team Providers Care Sourcing Assistant Name Role Phone Daniel Oswald MD Primary Care Provider [phone] Reason for Visit * Reason Onset Date Comments Med Refill 07/20/2020 Encounter Details Date Type Department Care Team (Late st Contact Info) Description 07/20/2020 Refill [facility] [address] [place] [address] Dori Guy MA Uncontrolled type 2 diabetes mellitus with hyperglycemia ([facility]) Social History Tobacco Use Types Packs/Day Years Used Date Smoking Tobacco: Every Day Cigarettes 0.5 50 Smokeless Tobacco: Former Chew Quit: 09/05/2009 Alcohol Use Standard Drinks/Week Comments Yes 2 (1 standard drink = 0.6 oz pur e alcohol) PHQ-2 Answer Date Recorded PHQ-2 Score 0 02/13/2020 Childcare Answer Date Recorded Childcare Unknown 01/26/2019 Employment Answer Date Recorded Employment Unknown 01/26/2019 Sex and Gender Information Value Date Recorded Sex Assigned at Not on file Legal Sex Male 11:23 AM EDT Gender Identity Not on file Sexual Orientation Not on file documented as of this encounter Plan of Treatment Not on file documented as of this encounter Visit Diagnoses Diagnosis Uncontrolled type 2 diabetes mellitus with hyperglycemia ([facility]) documented in this encounter Additional Health Concerns Infection Onset Date Last Indicated Resolved Time COVID-19 Rule-Out 11/19/2022 11/19/2022 11/21/2022 8:23 AM EDT COVID-19 Rule-Out 10/14/2023 10/14/2023 10/14/2023 11:17 PM EST Assessment Noted Time PHQ-9 Depression Total Score: 0 04/26/20 20 12:51 PM EDT A Body Mass Index follow-up plan has been documented for the patient 05/01/2020 7:07 AM EDT documented as of this encounter Care Teams Sourcing Assistant Relationship Specialty Start Date End Date Daniel Oswald MD [address] [place] [address] PCP - General Internal Medicine 10/14/23 documented as of this encounter
--- OUTSIDE RECORDS SUMMARY | 2025-04-13 13:00 | XMS_ITS | Encounter Summary ---
Author Organization [facility] Address [address] [place] [address] Care Team Providers Care Foreign Language Professor Name Role Phone Shaikh NORA Villar Primary Care Provider [phone] UnallocatHalina zheng MD Primary Care Provi mathew Encounter Details Date Type Department Care Team (Late st Contact Info) Description 01/14/2023 Abstract [facility] [address] [place] [id number] Blayne Hernandez DPM [address] [place], [place] [id number] Social History Tobacco Use Types Packs/Day Years Used Date Smoking Tobacco: Every Day Cigarettes Tobacco Cessation:Ready to Q uit: Not Asked; Counseling Given: Not Answered Comments:21-30 cigs a day. Alcohol Use Standard Drinks/Week Comments Never 0 (1 standard drink = 0.6 oz pur e alcohol) Sex and Gender Information Value Date Recorded Sex Assigned at Not on file Legal Sex Male 7:47 PM EDT Gender Identity Not on file Sexual Orientation Not on file documented as of this encounter Plan of Treatment Not on file documented as of this encounter Visit Diagnoses Not on filedocumented in this encounter Care Teams Foreign Language Professor Relationship Specialty Start Date End Date Shaikh Villar MD PCP - General Internal Medicine 02/11/23 10/19/23 UnallocatHalina zheng MD [address] [place] [address] PCP - General Family Medicine 10/20/23 documented as of this encounter
--- OUTSIDE RECORDS SUMMARY | 2025-04-13 13:00 | XMS_ITS | Encounter Summary ---
Author Organization [facility] Address [address] [place] [address] Care Team Providers Care Sales Enablement Consultant Name Role Phone Shaikh NORA Villar Primary Care Provider [phone] Unallocated, Noms Provider Primary Care Provi mathew Reason for Visit * Reason Comments Med Refill Encounter Details Date Type Department Care Team (Late st Contact Info) Description 07/15/2023 [facility] [address] [place] [address] Shaikh Villar MD [address] [place] [address] Chronic obstructive pulmonary disease, unspecified (HCC) Social History Tobacco Use Types Packs/Day Years Used Date Smoking Tobacco: Every Day Cigarettes Comments:21-30 cigs a day. Alcohol Use Standard Drinks/Week Comments Never 0 (1 standard drink = 0.6 oz pur e alcohol) Sex and Gender Information Value Date Recorded Sex Assigned at Not on file Legal Sex Male 7:47 PM EDT Gender Identity Not on file Sexual Orientation Not on file documented as of this encounter Miscellaneous Notes * Telephone Encounter - Shaikh Jian MD - 07/15/2023 4:58 PM EST Approving, but needs appt for additional refills. documented in this encounter Plan of Treatment Not on file documented as of this encounter Visit Diagnoses Diagnosis Chronic obstructive pulmonary disease, unspecified (HCC) documented in this encounter Care Teams Sales Enablement Consultant Relationship Specialty Start Date End Date FawShaikh sandoval MD PCP - General Internal Medicine 02/11/23 10/19/23 Unallocated, Noms ProviderMD [address] [place] [address] PCP - General Family Medicine 10/20/23 documented as of this encounter
--- OUTSIDE RECORDS SUMMARY | 2025-04-13 13:00 | XMS_ITS | Encounter Summary ---
Author Organization [facility] Address [address] [place] [address] Care Team Providers Care Art Display Maker Name Role Phone Shaikh NORA Villar Primary Care Provider [phone] UnallocatedAleida MD Primary Care Provi mathew Encounter Details Date Type Department Care Team (Late st Contact Info) Description 03/03/2023 Abstract [facility] [address] [facility] [address] [place] [phone] Devin Starks, 703 [facility] 150 [place] [address] Social History Tobacco Use Types Packs/Day Years [...] on filedocumented in this encounter Care Teams Art Display Maker Relationship Specialty Start Date End Date Shaikh Villar MD PCP - General Internal Medicine 02/11/23 10/19/23 UnallocatedAleida MD [address] [place], [place] [address] [address] PCP - General Family Medicine 10/20/23 documented as of this encounter
--- OUTSIDE RECORDS SUMMARY | 2025-04-13 13:00 | XMS_ITS | Encounter Summary ---
Author Organization [facility] Address [address] [place] [address] Care Team Providers Care School Business Manager Name Role Phone Shaikh NORA Villar Primary Care Provider [phone] Unallocated, Noms Provider Primary Care Provi mathew Encounter Details Date Type Department Care Team (Late st Contact Info) Description 03/04/2023 External Result Encounter [facility] External Department Unsolicited Devin Starks, DO [address] [facility] [address] [place] [address] Social History Tobacco Use Types Packs/Day Years [...] Procedure Name Priority Date/Time Associated Diagnosis Comments XR CHEST 1 VIEW 03/04/2023 7:27 AM EDT documented in this encounter Results * XR chest 1 view (03/04/2023 7:27 AM EDT) Anatomical Region Laterality Modality Chest Radiographic Carolina ging 03/04/2023 7:27 AM EDT Impressions 03/05/2023 2:11 PM EDT NO OBVIOUS PNEUMOTHORAX. BIBASILAR ATELECTASIS. Impression dictated by: Eden Milton M.D.03/04/2023 7:29 AM Dictation Location: [place] [address] Transcribed By: [facility] 03/04/23728 Dictated By: Eden Milton MD 03/04/23726 Signed By: <Electronically signed by MD Eden Milton in [place]> 03/04/23728 Narrative 03/05/2023 2:11 PM EDT [place] [id number] XRay Report Signed Patient: Akbar Byrnes MR#: [id number] : 1960 Acct:[id number] Age/Sex: 62 / M ADM Date: 03/02/23 Loc: Room: [address] [place] [address] Type: ADM IN Attending Dr: Devin Starks [...] structures are intact. XR/XR chest 1V portable Procedure Note Radiology, Radiologist, MD - 03/05/[address] [address] XRay Report Signed Patient: Akbar Byrnes JMR#: [id number] : 1960cct:[id number] Age/Sex: 62 / MADM Date: 03/02/23 Loc: 4C Room: [id number]: ADM IN Attending Dr: Devin Starks DO Copies to: Devin Starks DO Ordering Provider: Devin Starks DO Date of Service: 03/04/23 XR/XR chest 1V portable: L ptx PORTABLE AP ERECT CHEST 0604 hours CLINICAL HISTORY: Follow-up after recent left chest tube removal COMPARISON: 03/03/2023 The left-sided chest tube is no longer seen. The heart is within normallimits. There is no vascular congestion. Minor basilar atelectasis is visualized.. There isno sizable effusion or pneumothorax. The osseous structures are intact. XR/XR chest 1V portable IMPRESSION: NO OBVIOUS PNEUMOTHORAX. BIBASILAR ATELECTASIS. Impression dictated by: Eden Milton M.D.03/04/2023 7:29 AM Dictation Location: [place] [address] Transcribed By: [facility] 03/04/23728 Dictated By: Eden Milton MD 03/04/23726 Signed By: <Electronically signed by MD Eden Milton in [place]> 03/04/23728 Devin Starks DO IMG XR PROCEDURES Final Result documented in this encounter Visit Diagnoses Not on filedocumented in this encounter Care Teams School Business Manager Relationship Specialty Start Date End Date Shaikh Villar MD PCP - General Internal Medicine 02/11/23 10/19/23 Unallocated, Noms ProviderMD [address] [place] [address] PCP - General Family Medicine 10/20/23 documented as of this encounter
--- OUTSIDE RECORDS SUMMARY | 2025-04-13 13:00 | XMS_ITS | Encounter Summary ---
Author Organization [facility] Address [address] [place] [address] Care Team Providers Care Futures Trader Name Role Phone Shaikh NORA Villar Primary Care Provider [phone] Unallocated, Nomteddy Provider Primary Care Provi mathew Reason for Visit * Reason Comments Med Refill Encounter Details Date Type Department Care Team (Late st Contact Info) Description 09/15/2023 [facility] [address] [place] [address] Shaikh Villar MD [address] [place] [address] Chronic obstructive pulmonary disease, unspecified (HCC); Type 2 diabetes mellitus with diabetic polyneuropathy (HCC); Essential (primary) hypertension Social History Tobacco Use Types Packs/Day Years [...] Telephone Encounter - Shaikh Jian MD - 09/15/2023 2:52 PM EST Approving, but needs appt for additional refills. documented in this encounter Plan of Treatment Not on file documented as of this encounter Visit Diagnoses Diagnosis Chronic obstructive pulmonary disease, unspecified (HCC) Type 2 diabetes mellitus with diabetic polyneuropathy (HCC) Essential (primary) hypertension Unspecified essential hypertension documented in this encounter Care Teams Futures Trader Relationship Specialty Start Date End Date Shaikh Villar MD PCP - General Internal Medicine 02/11/23 10/19/23 Unallocated, Noms ProviderMD [address] [place] [address] PCP - General Family Medicine 10/20/23 documented as of this encounter
--- OUTSIDE RECORDS SUMMARY | 2025-04-13 13:00 | XMS_ITS | Encounter Summary ---
Author Organization [facility] Address [address] [place] [address] Care Team Providers Care Nurse Navigator Name Role Phone Shaikh NORA Villar Primary Care Provider UnallocatAleida zheng MD Primary Care Provi mathew Encounter Details Date Type Department Care Team (Late st Contact Info) Description 09/15/2023 Orders [facility] [address] [place] [address] Shaikh Villar MD [address] [place] [address] Social History Tobacco Use Types Packs/Day Years [...] on filedocumented in this encounter Care Teams Nurse Navigator Relationship Specialty Start Date End Date Shaikh Villar MD PCP - General Internal Medicine 02/11/23 10/19/23 UnallocatAleida zheng MD [address] [place], [place] [address] PCP - General Family Medicine 10/20/23 documented as of this encounter
--- OUTSIDE RECORDS SUMMARY | 2025-04-13 13:00 | XMS_ITS | Encounter Summary ---
Author Organization [facility] Address [address] [place] [address] Care Team Providers Care Burial Agent Name Role Phone Shaikh NORA Villar Primary Care Provider [phone] UnallocatedAleida MD Primary Care Provi mathew Encounter Details Date Type Department Care Team (Late st Contact Info) Description 03/10/2023 Abstract [facility] [address] [facility] 150 [place] [address] Devin Starks, 703 [facility] 150 [place] [address] Social History Tobacco Use Types Packs/Day Years [...] on filedocumented in this encounter Care Teams Burial Agent Relationship Specialty Start Date End Date Shaikh Villar MD PCP - General Internal Medicine 02/11/23 10/19/23 UnallocatedAleida MD [address] [place], [place] [address] [place] [address] PCP - General Family Medicine 10/20/23 documented as of this encounter
--- OUTSIDE RECORDS SUMMARY | 2025-04-13 13:00 | XMS_ITS | Encounter Summary ---
Author Organization [facility] Address [address] [place] [address] Care Team Providers Care Meat Cutting Teacher Name Role Phone Shaikh NORA Villar Primary Care Provider [phone] Unallocated, Aleida Provider Primary Care Provi mathew Reason for Visit * Reason Comments Med Refill Encounter Details Date Type Department Care Team (Late st Contact Info) Description 08/14/[address] [facility] [address] [place] [address] Shaikh Villar MD [address] [place] [address] Chronic obstructive pulmonary disease, unspecified (HCC) Social [...] (HCC) documented in this encounter Care Teams Meat Cutting Teacher Relationship Specialty Start Date End Date Shaikh Villar MD PCP - General Internal Medicine 02/11/23 10/19/23 Unallocated, Noms Provider, [address] [place] [address] PCP - General Family Medicine 10/20/23 documented as of this encounter
--- OUTSIDE RECORDS SUMMARY | 2025-04-13 13:00 | XMS_ITS | Patient Health Record ---
Author Organization [facility] Address [address] [place] [address] [address] [place] [address] Care Team Providers Care Manufacture Specialist Name Role Phone TIN PACHECO Unavailable [phone] BRITNI HERNANDEZ Unavailable [phone] Allergies No Known Allergies Reason For Referral No Information Social History Tobacco Use: Social History Observation Description Date Details (start date - stop date) Current Smoker NA - NA Tobacco Control (Standard) Question Answer Notes Tobacco use: Current smoker Problems Problem Type SNOMED Code ICD Code Onset Dates Problem Status W/U Status Risk Notes Problem Chronic obstructive pulmonary disease (52136721) Chronic obstructive pulmonary disease, unspecified (J44.9) Active confirmed Encounters Encounter Location Date Provider Diagnosis [address] [place] [address] 04/04/2025 BRITNI HERNANDEZ Chronic obstructive pulmonary disease, unspecified J44.9 and Tobacco abuse Z72.0 Assessments Encounter Date Diagnosis (ICD Code) Assessment Notes Treatment Notes Treatment Clinical Notes Section Notes 04/04/2025 Chronic obstructive pulmonary disease, unspecified (ICD-10 - J44.9) 04/04/2025 Tobacco abuse (ICD-10 - Z72.0) 04/04/2025 Other Seen in collaboration and discussed plan of care with Dr. Tin Pacheco Plan Of Treatment No Information Insurance Providers Payer Name Payer Address Payer Phone Subscriber Number Group Number Insured Name Patient Relationship to Insured Coverage Start Date Coverage End Date Medicaid of [place] [address] [id number] [id number] Akbar Byrnes Self - patient is the insured Medical (General) History Medical History History ICD Code COPD Bipolar Anxiety Dysphagia Type 2 DM Hyperlipidemia HTN BPH Depression Laryngitis Type 2 DM Metabolic encephalopathy Surgical History Surgery Date(Month/Year) Reviewed Hospitalization History Reason Date(Month/Year) Reviewed [facility]
--- OUTSIDE RECORDS SUMMARY | 2025-04-13 13:00 | XMS_ITS | Clinical Summary ---
Author Organization [facility] Healthcare Address [address] [place] [address] Care Team Providers Care Human Relations Manager Name Role Phone Unallocated, Noms Provider Primary Care Provi mathew Medications Spiriva Respimat 2.5 MCG/ACT inhalerIndications: Chronic obstructive pulmonary disease, unspecified (HCC) INHALE 2 PUFFS BY MOUTH DAILY 4 g 4 Active glipiZIDE (Glucotrol) 10 MG tabletIndications:T ype 2 diabetes mellitus with diabetic polyneuropathy (HCC) TAKE 1 TABLET BY MOUTH DAILY 90 tablet 4 Active metoprolol tartrate (Lopressor) 25 MG tabletIndications:E ssential (primary) hypertension TAKE 1 TABLET BY MOUTH TWICE DAILY 180 tablet 4 Active Family History Medical History Relation Name Comments Arthritis Mother Cancer Mother Relation Name Status Comments Father Mother Sibling Alive Social History Tobacco Use Types Packs/Day Years [...] on file Sexual Orientation Not on file Last Filed Vital Signs Vital Sign Reading Time Taken Comments Blood Pressure 130/79 04/03/2022 12:00 PM EDT Pulse - - Temperature - - Respiratory Rate - - Oxygen Saturation - - Inhaled Oxygen Concentration - - Weight 67.9 kg (149 lb 11.2 oz) 08/18/2 022 12:00 PM EDT Height 180.3 cm (5' 11 ) 04/03/2022 12: 00 PM EDT Body Mass Index 20.88 04/03/2022 12:00 PM EDT Plan of Treatment Health Maintenance Due Date Last Done Comments CT Colonography 1960 Colonoscopy 1960 FIT-DNA 1960 FIT 1960 Sigmoidoscopy 1960 Diabetes: Retinopathy Screening 1970 Diabetes: Urine Protein Screening 11/03/1979 Colorectal Cancer Screening 02/12/2021 FOBT 02/12/2021 02/13/2020 Diabetes: Hemoglobin A1C 01/25/2023 10/25/2022 Influenza Vaccine (#1) 2025 4, 05/29/2021, 07/30/2020, Additional history exists Insurance [address] [place] [address] [employer] Care Teams Human Relations Manager Relationship Specialty Start Date End Date Unallocated, Noms Provider, [address] [place], [place] [address] PCP - General Family Medicine 10/20/23
--- OUTSIDE RECORDS SUMMARY | 2025-04-13 13:00 | XMS_ITS | Encounter Summary ---
Author Organization [employer] [facility] Address [id number] [place] [address] Care Team Providers Care Territory Service Representative Name Role Phone Daniel Oswald MD Primary Care Provider [phone] Reason for Visit * Reason Comments Med Refill Encounter Details Date Type Department Care Team (Late st Contact Info) Description 12/13/2020 Refill [facility] [address] [facility] [place] [address] Talita Castro, COMMUNITY REINVESTMENT ACT OFFICER-PSYCHIATRIC ASSISTANT [address] [place] [address] Uncontrolled type 2 diabetes mellitus with hyperglycemia ([facility]); Diabetic autonomic neuropathy associated with type 2 diabetes mellitus ([facility]); Anxiety Social History Tobacco Use Types Packs/Day Years Used Date Smoking Tobacco: Every Day Cigarettes 5 50 Smokeless Tobacco: Former Chew Quit: 09/05/2009 Alcohol Use Standard Drinks/Week Comments Not Currently 2 (1 standard drink = 0.6 oz pur e alcohol) PHQ-2 Answer Date Recorded Total Score 0 11/01/2020 Childcare Answer Date Recorded Childcare Unknown 01/26/2019 [...] have Coronavirus / COVID-19? No / Unsure 11/20/2020 11:28 AM EDT documented as of this encounter Plan of Treatment Not on file documented as of this encounter Visit Diagnoses Diagnosis Uncontrolled type 2 diabetes mellitus with hyperglycemia ([facility]) Diabetic autonomic neuropathy associated with type 2 diabetes mellitus ([facility]) Type II or unspecified type diabetes mellitus with neurological manifestations, not stated as uncontrolled Anxiety Anxiety state, unspecified documented in this encounter Additional Health Concerns Infection Onset Date Last Indicated Resolved Time COVID-19 Rule-Out 11/19/2022 11/19/2022 11/21/2022 8:23 AM EDT COVID-19 Rule-Out 10/14/2023 10/14/2023 10/14/2023 11:17 PM EST Assessment Noted Time PHQ-9 Depression Total Score: 0 11/02/19 11:01 AM EDT A Body Mass Index follow-up plan has been documented for the patient 09/06/2020 7:33 AM EST documented as of this encounter Care Teams Territory Service Representative Relationship Specialty Start Date End Date Daniel Oswald MD [address] [place] [address] PCP - General Internal Medicine 10/14/23 documented as of this encounter
--- OUTSIDE RECORDS SUMMARY | 2025-04-13 13:00 | XMS_ITS | Encounter Summary ---
Author Organization [facility] Address [id number] [address] [place] [address] Care Team Providers Care Pipefitter Name Role Phone Daniel Oswald MD Primary Care Provider [phone] Encounter Details Date Type Department Care Team (Late st Contact Info) Description 11/05/2022 Orders Only [facility] [address] [place] [phone] Carmen Hodge APRN-COFFEE MAKER [address] [place], [place] [phone] Social History Tobacco Use Types Packs/Day Years [...] or suspected to have Coronavirus / COVID-19? Unable to assess 10/27/2022 7:48 AM EDT documented as of this encounter [...] documented as of this encounter Care Teams Pipefitter Relationship Specialty Start Date End Date Daniel Oswald MD [address] [place] [address] PCP - General Internal Medicine 10/14/23 documented as of this encounter
--- OUTSIDE RECORDS SUMMARY | 2025-04-13 13:00 | XMS_ITS | Encounter Summary ---
Author Organization [employer] [facility] [employer] Address [id number] [address] [place] [address] Care Team Providers Care Amr Physician Name Role Phone Daniel Oswald MD Primary Care Provider [phone] Reason for Visit * Reason Onset Date Comments Med Refill 03/22/2020 Encounter Details Date Type Department Care Team (Late st Contact Info) Description 03/22/2020 Refill [facility] [address] [place] [address] Dori Guy MA Anxiety; Diabetic autonomic neuropathy associated with type 2 diabetes mellitus ([facility]) Social History Tobacco Use Types Packs/Day Years [...] have Coronavirus / COVID-19? No / Unsure 03/06/2020 8:11 AM EDT documented as of this encounter Plan of Treatment Not on file documented as of this encounter Visit Diagnoses Diagnosis Anxiety Anxiety state, unspecified Diabetic autonomic neuropathy associated with type 2 diabetes mellitus ([facility]) Type II or unspecified type diabetes mellitus with neurological manifestations, not stated as uncontrolled documented in this encounter Additional Health Concerns Infection Onset Date Last Indicated Resolved Time COVID-19 Rule-Out 11/19/2022 11/19/2022 11/21/2022 8:23 AM EDT COVID-19 Rule-Out 10/14/2023 10/14/2023 10/14/2023 11:17 PM EST Assessment Noted Time PHQ-9 Depression Total Score: 0 03/06/20 20 8:14 AM EDT A Body Mass Index follow-up plan has been documented for the patient 01/02/2020 1:10 PM EDT documented as of this encounter Care Teams Amr Physician Relationship Specialty Start Date End Date Daniel Oswald MD [address] [place] [address] PCP - General Internal Medicine 10/14/23 documented as of this encounter
--- OUTSIDE RECORDS SUMMARY | 2025-04-13 13:00 | XMS_ITS | Encounter Summary ---
Author Organization [facility] Address [address] [place] [address] Care Team Providers Care Flue Gas Analyst Name Role Phone Unallocated, Noms Provider Primary Care Provi mathew Encounter Details Date Type Department Care Team (Late st Contact Info) Description 11/11/2023 Abstract [facility] [address] [facility] [address] [place] [address] Norman Alejo MD [address] [place] [address] Social History Tobacco Use Types Packs/Day Years [...] on filedocumented in this encounter Care Teams Flue Gas Analyst Relationship Specialty Start Date End Date Unallocated, Noms Provider, [address] [place] [address] PCP - General Family Medicine 10/20/23 documented as of this encounter
--- OUTSIDE RECORDS SUMMARY | 2025-04-13 13:00 | XMS_ITS | Encounter Summary ---
Author Organization [employer] [facility] [employer] Address [id number] [address] [place] [address] Care Team Providers Care Tobacco Shaker Name Role Phone Daniel Oswald MD Primary Care Provider [phone] Reason for Referral * Diagnostic Imaging (Routine) - Closed Specialty Diagnoses / Procedures Referred By Marianna vera Referred To Contact Radiology Diagnoses Pain Procedures CT brain without contrast stroke alert [facility] [address] [place] [address] Phone: tel: fax: Referral ID Status Reason Start Date Expiration Date Visits Re quested Visits Authorized [id number] Closed 11/09/2022 11/09/2023 1 1 Encounter Details Date Type Department Care Team (Late st Contact Info) Description 11/09/2022 Orders Only [facility] [address] [place] [phone] External, Scanning Provider Pain (Primary Dx) Social History Tobacco Use Types [...] PM EDT documented as of this encounter Functional Status documented as of this encounter Plan of Treatment Not on file documented as of this encounter Results * CT brain without contrast stroke alert (11/09/2022 1:05 PM EDT) us Scanning Provider External IMG CT ORDERABLES Fin al Result * X-ray chest 1 view (11/09/2022 12:50 PM EDT) us Scanning Provider External IMG DIAGNOSTIC IMAGIN G ORDERABLES Final Result documented in this encounter Visit Diagnoses Diagnosis Pain- Primary Generalized pain documented in this encounter Additional Health Concerns [...] documented as of this encounter Care Teams Tobacco Shaker Relationship Specialty Start Date End Date Daniel Oswald MD [address] [place] [address] PCP - General Internal Medicine 10/14/23 documented as of this encounter
--- OUTSIDE RECORDS SUMMARY | 2025-04-13 13:00 | XMS_ITS | Encounter Summary ---
Author Organization [employer] [facility] [employer] Address [id number] [address] [place] [address] Care Team Providers Care Industrial Maintenance Millwright Name Role Phone Daniel Oswald MD Primary Care Provider [phone] Reason for Visit * Reason Comments Med Refill Encounter Details Date Type Department Care Team (Late st Contact Info) Description 12/25/2020 Refill [facility] [address] [facility] [place] [address] Talita Castro, HYDROTEL OPERATOR-[address] [place] [address] Essential hypertension; Uncontrolled type 2 diabetes mellitus with hyperglycemia ([facility]) Social History Tobacco Use Types Packs/Day [...] as of this encounter Visit Diagnoses Diagnosis Essential hypertension Unspecified essential hypertension Uncontrolled type 2 diabetes mellitus with hyperglycemia ([facility]) documented in this encounter Additional Health [...] documented as of this encounter Care Teams Industrial Maintenance Millwright Relationship Specialty Start Date End Date Daniel Oswald MD [address] [place] [address] PCP - General Internal Medicine 10/14/23 documented as of this encounter
--- OUTSIDE RECORDS SUMMARY | 2025-04-13 13:00 | XMS_ITS | Encounter Summary ---
Author Organization [employer] Address [id number] [address] [place] [address] Care Team Providers Care Agriculture Professor Name Role Phone Daniel Oswald MD Primary Care Provider Reason for Visit * Reason Comments Med Refill Encounter Details Date Type Department Care Team (Late st Contact Info) Description 01/02/2021 Refill [facility] [address] [place] [address] Talita Castro, PLANT FLOOR AUTOMATION MANAGER-INSOLE DEPARTMENT WORKER [address] [place] [address] Diabetic autonomic neuropathy associated with type 2 diabetes mellitus ([facility]) Social History Tobacco Use Types Packs/Day Years [...] as of this encounter Visit Diagnoses Diagnosis Diabetic autonomic neuropathy associated with type 2 diabetes mellitus ([facility]) Type II or unspecified type diabetes mellitus with neurological manifestations, not stated as uncontrolled documented in this encounter Additional Health Concerns Infection Onset Date Last Indicated Resolved Time COVID-19 Rule-Out 11/19/2022 11/19/202211/21/2022 8:23 AM EDT COVID-19 Rule-Out 10/14/2023 10/14/2023 10/14/2023 11:17 PM EST Assessment Noted Time PHQ-9 Depression Total Score: 0 11/02/19 11:01 AM EDT A Body Mass Index follow-up plan has been documented for the patient 09/06/2020 7:33 AM EST documented as of this encounter Care Teams Agriculture Professor Relationship Specialty Start Date End Date Daniel Oswald MD [address] [place] [address] PCP - General Internal Medicine 10/14/23 documented as of this encounter
--- OUTSIDE RECORDS SUMMARY | 2025-04-13 13:00 | XMS_ITS | Encounter Summary ---
Author Organization [facility] Address [address] [place] [address] Care Team Providers Care Field Specialist Name Role Phone Shaikh NORA Villar Primary Care Provider [phone] Unallocated, Aleida Provider Primary Care Provi mathew Reason for Visit * Reason Comments Med Refill Encounter Details Date Type Department Care Team (Late st Contact Info) Description 08/11/2023 [facility]ill [facility] [address] [place] [address] Shaikh Villar MD [address] [place] [address] Type 2 diabetes mellitus with other specified complication (HCC); Type 2 diabetes mellitus with diabetic polyneuropathy (HCC) Social History Tobacco Use Types Packs/Day [...] as of this encounter Visit Diagnoses Diagnosis Type 2 diabetes mellitus with other specified complication (HCC) Type 2 diabetes mellitus with diabetic polyneuropathy (HCC) documented in this encounter Care Teams Field Specialist Relationship Specialty Start Date End Date Shaikh Villar MD PCP - General Internal Medicine 02/11/23 10/19/23 Unallocated, [facility]oms Provider, [place] [address] PCP - General Family Medicine 10/20/23 documented as of this encounter
--- OUTSIDE RECORDS SUMMARY | 2025-04-13 13:00 | XMS_ITS | Encounter Summary ---
Author Organization [employer] Address [id number] [address] [place] [address] Care Team Providers Care Butcher Fish Name Role Phone Daniel Oswald MD Primary Care Provider [phone] Reason for Visit * Reason Comments Med Refill Encounter Details Date Type Department Care Team (Late st Contact Info) Description 09/15/2019 Refill [facility] [address] [place] [address] [place] [address] Talita Castro, TRAVEL CONSULTANT-INSULATION BOARD COATER OPERATOR [address] [place] [address] Uncontrolled type 2 diabetes mellitus with hyperglycemia (CMS-HCC) (Primary Dx); Chronic obstructive pulmonary disease, unspecified COPD type (CMS-HCC) Social History Tobacco Use Types Packs/Day Years Used Date Smoking Tobacco: Every Day Cigarettes 0.5 50 Smokeless Tobacco: Former Chew Quit: 09/05/2009 Alcohol Use Standard Drinks/Week Comments Yes 2 (1 standard drink = 0.6 oz pur e alcohol) PHQ-2 Answer Date Recorded PHQ-2 Score 0 08/25/2019 Childcare Answer Date Recorded Childcare Unknown 01/26/2019 [...] Uncontrolled type 2 diabetes mellitus with hyperglycemia (CMS-HCC)- Primary Chronic obstructive pulmonary disease, unspecified COPD type (CMS-HCC) documented in this encounter Additional Health Concerns Infection Onset Date Last Indicated Resolved Time Enteric Rule-Out 02/13/2020 02/13/2020 02/13/2020 11:20 PM EDT COVID-19 Rule-Out 11/19/2022 11/19/2022 11/21/2022 8:23 AM EDT COVID-19 Rule-Out 10/14/2023 10/14/2023 10/14/2023 11:17 PM EST Assessment Noted Time PHQ-9 Depression Total Score: 0 09/14/19 20 1:36 PM EST documented as of this encounter Care Teams Butcher Fish Relationship Specialty Start Date End Date Daniel Oswald MD [address] [place] [address] PCP - General Internal Medicine 10/14/23 documented as of this encounter
--- OUTSIDE RECORDS SUMMARY | 2025-04-13 13:00 | XMS_ITS | Encounter Summary ---
Author Organization [facility] Address [address] [place] [address] Care Team Providers Care Oil Field Equipment Mechanic Name Role Phone Shaikh NORA Villar Primary Care Provider [phone] Unallocated, Aleida Provider Primary Care Provi mathew Reason for Visit * Reason Comments Med Refill Encounter Details Date Type Department Care Team (Late st Contact Info) Description 09/04/2023 [facility]ill [facility] [address] [place] [address] Shaikh Villar MD [address] [place] [address] Type 2 diabetes mellitus with diabetic polyneuropathy (HCC); Essential (primary) hypertension ; Chronic obstructive pulmonary disease, unspecified (HCC) Social [...] Diagnoses Diagnosis Type 2 diabetes mellitus with diabetic polyneuropathy (HCC) Essential (primary) hypertension Unspecified essential hypertension Chronic obstructive pulmonary disease, unspecified (HCC) documented in this encounter Care Teams Oil Field Equipment Mechanic Relationship Specialty Start Date End Date Shaikh Villar MD PCP - General Internal Medicine 02/11/23 10/19/23 Unallocated, Noms Provider, [address] [place] [address] PCP - General Family Medicine 10/20/23 documented as of this encounter
--- OUTSIDE RECORDS SUMMARY | 2025-04-13 13:00 | XMS_ITS | Encounter Summary ---
Author Organization [facility] Address [address] [place] [address] Care Team Providers Care Historian Research Assistant Name Role Phone Shaikh NORA Villar Primary Care Provider [phone] Unallocated, Noms Provider Primary Care Provi mathew Encounter Details Date Type Department Care Team (Late st Contact Info) Description 03/03/2023 External Result Encounter [facility] External Department Unsolicited Devin Starks, DO [address] [facility] [address] [place] [address] Social History Tobacco Use Types Packs/Day Years [...] Associated Diagnosis Comments XR CHEST 1 VIEW 03/03/2023 7:09 AM EDT documented in this encounter Results * XR chest 1 view (03/03/2023 7:09 AM EDT) Anatomical Region Laterality Modality Chest Radiographic Carolina ging 03/03/2023 7:09 AM EDT Impressions 03/03/2023 12:33 PM EDT NO RESIDUAL PNEUMOTHORAX. MINOR PARENCHYMAL CHANGES. Impression dictated by: Eden Milton M.D.03/03/2023 7:11 AM Dictation Location: [facility]--10 Transcribed By: DORIS 03/03/23710 Dictated By: Eden Milton MD 03/03/23708 Signed By: <Electronically signed by MD Eden Milton in OV> 03/03/23 0711 Narrative 03/03/2023 12:33 PM EDT [address] [address] XRay Report Signed Patient: Akbar Byrnes MR#: [id number] : 1960 Acct:[id number] Age/Sex: 62 / M ADM Date: 03/02/23 Loc: 4C Room: 3R3814-4 Type: ADM IN Attending Dr: Devin Starks [...] structures are osteopenic. XR/XR chest 1V portable Procedure Note Radiology, Radiologist, MD - 03/03/[address] [address] XRay Report Signed Patient: Akbar Byrnes JMR#: [id number] : 1960cct:[id number] Age/Sex: 62 / MADM Date: 03/02/23 Loc: 4C Room: 2C0684-8Imwl: ADM IN Attending Dr: Devin Starks DO Copies to: Devin Starks DO Ordering Provider: Devin Starks DO Date of Service: 03/03/23 XR/XR chest 1V portable: Left Chest tube PORTABLE AP ERECT CHEST 0437 hours CLINICAL HISTORY: Follow-up chest tube. COMPARISON: 03/02/2023 A left-sided chest tube is still present. There are minor interstitialchanges. There is potential minimal basilar atelectasis. No residual pneumothorax is identified.There is no sizable effusion. The cardiac and mediastinal contours are similar. The bony structuresare osteopenic. XR/XR chest 1V portable IMPRESSION: NO RESIDUAL PNEUMOTHORAX. MINOR PARENCHYMAL CHANGES. Impression dictated by: Eden Milton M.D.03/03/2023 7:11 AM Dictation Location: [facility]-10 Transcribed By: [facility] 03/03/23 0711 Dictated By: Eden Milton MD 03/03/23 0709 Signed By: <Electronically signed by MD Eden Milton in OV> 03/03/23 0711 Devin Starks DO IMG XR PROCEDURES Final Result documented in this encounter Visit Diagnoses Not on filedocumented in this encounter Care Teams Historian Research Assistant Relationship Specialty Start Date End Date Shaikh Villar MD PCP - General Internal Medicine 02/11/23 10/19/23 Unallocated, Noms Provider, [address] [place] [address] PCP - General Family Medicine 10/20/23 documented as of this encounter
--- OUTSIDE RECORDS SUMMARY | 2025-04-13 13:00 | XMS_ITS | Encounter Summary ---
Author Organization [employer] Address [id number] [address] [place] [address] Care Team Providers Care Medical Officer Psychiatry Name Role Phone Daniel Oswald MD Primary Care Provider Reason for Visit * Reason Comments Med Refill Encounter Details Date Type Department Care Team (Late st Contact Info) Description 09/21/2019 Refill [facility] [address] [facility] [place] [address] Talita Castro, PROFESSOR OF ENVIRONMENTAL ENGINEERING-PRECISION INSTRUMENT AND TOOL MAKER [address] [place] [address] Diabetic autonomic neuropathy associated with type 2 diabetes mellitus ([facility]) Social History Tobacco Use Types Packs/Day [...] neuropathy associated with type 2 diabetes mellitus ([facility]) Type II or unspecified type diabetes mellitus [...] documented as of this encounter Care Teams Medical Officer Psychiatry Relationship Specialty Start Date End Date Daniel Oswald MD [address] [place] [address] PCP - General Internal Medicine 10/14/23 documented as of this encounter
--- OUTSIDE RECORDS SUMMARY | 2025-04-13 13:00 | XMS_ITS | Encounter Summary ---
Author Organization [employer] Address [id number] [address] [place] [address] Care Team Providers Care Battery Test Engineer Name Role Phone Daniel Oswald MD Primary Care Provider [phone] Reason for Visit * Reason Onset Date Comments Med Refill 08/29/2019 Encounter Details Date Type Department Care Team (Late st Contact Info) Description 08/29/2019 Refill [facility] [address] [facility] [address] Shelia Reyes CMA Chronic obstructive pulmonary disease, unspecified COPD type (CMS-HCC) (Primary Dx); Uncontrolled type 2 diabetes mellitus with hyperglycemia (CMS-HCC) Social History Tobacco Use Types Packs/Day [...] Diagnoses Diagnosis Chronic obstructive pulmonary disease, unspecified COPD type (CMS-HCC)- Primary Uncontrolled type 2 diabetes mellitus with hyperglycemia (CMS-HCC) documented in this encounter Additional Health Concerns Infection Onset Date Last Indicated Resolved Time Enteric Rule-Out 02/13/2020 02/13/2020 02/13/2020 11:20 PM EDT COVID-19 Rule-Out 11/19/2022 11/19/2022 11/21/2022 8:23 AM EDT COVID-19 Rule-Out 10/14/2023 10/14/2023 10/14/2023 11:17 PM EST Assessment Noted Time PHQ-9 Depression Total Score: 0 08/25/19 20 3:13 PM EST documented as of this encounter Care Teams Battery Test Engineer Relationship Specialty Start Date End Date Daniel Oswald MD [address] [place] [address] PCP - General Internal Medicine 10/14/23 documented as of this encounter
--- OUTSIDE RECORDS SUMMARY | 2025-04-13 13:00 | XMS_ITS | Encounter Summary ---
Author Organization [employer] Address [id number] [address] [place] [address] Care Team Providers Care Jewel Grinder Name Role Phone Daniel Oswald MD Primary Care Provider [phone] Encounter Details Date Type Department Care Team (Late st Contact Info) Description 09/10/2020 Telephone [facility] [address] [place] [address] Fernando Jones MD [address] [facility]. Provider retired 11/15/24 [place] [address] Social History Tobacco Use Types Packs/Day Years [...] have Coronavirus / COVID-19? No / Unsure 09/05/2020 10:05 AM EST documented as of this encounter Miscellaneous Notes * Telephone Encounter - Fernando Jones MD - 09/10/2020 5:06 PM EST ----- Message from Dori Guy MA sent at 09/10/2020 11:40 AM EST ----- Talita saw all results except this one before she left on vacation * Telephone Encounter - Fernando Jones MD - 09/10/2020 5:06 PM EST Pt is called and has known about the HCV ab, from his PMHX, I offered pt a gastroenterology referral and he said he will talk to Zaira about, it, his diarrhea has improved with metformin * Telephone Encounter - ARGENTINA Baig - 09/10/2020 5:06 PM EST Can you call Nusrat and discuss. I do not know how long this is known, years, etc. I too, recommend GI referral for evaluation as well. Is not an emergency as I suspect this is decades long, but wouldlike done. * Telephone Encounter - Dori Guy MA - 09/10/2020 5:06 PM EST Called Delma and she didn't know, but she didn't talk to her brother much back in the day, so she doesn't recall this, but it doesn't surprise her at all. She said he did tell her that Dr called himto discuss result. She said she may come in with him for next appt. documented in this encounter Plan of Treatment Not on file documented as of this encounter Visit Diagnoses Not on filedocumented in this encounter Additional Health Concerns Infection Onset Date Last Indicated Resolved Time COVID-19 Rule-Out 11/19/2022 11/19/2022 11/21/2022 8:23 AM EDT COVID-19 Rule-Out 10/14/2023 10/14/2023 10/14/2023 11:17 PM EST Assessment Noted Time PHQ-9 Depression Total Score: 0 09/05/19 11:20 AM EST A Body Mass Index follow-up plan has been documented for the patient 09/06/2020 7:33 AM EST documented as of this encounter Care Teams Jewel Grinder Relationship Specialty Start Date End Date Daniel Oswald MD [address] [place] [address] PCP - General Internal Medicine 10/14/23 documented as of this encounter
--- OUTSIDE RECORDS SUMMARY | 2025-04-13 13:00 | XMS_ITS | Encounter Summary ---
Author Organization [email or web address] Address [id number] [address] [place] [address] Care Team Providers Care Gliding Pilot Instructor Name Role Phone Daniel Oswald MD Primary Care Provider [phone] Reason for Referral * Diagnostic Imaging (Routine) - Closed Specialty Diagnoses / Procedures Referred By Marianna vera Referred To Contact Radiology Diagnoses Pain Procedures CT brain without contrast stroke alert [facility] [address] [place] [phone] Phone: tel: fax: Referral ID Status Reason Start Date Expiration Date Visits Re quested Visits Authorized [id number] Closed 10/24/2022 10/24/2023 1 1 Encounter Details Date Type Department Care Team (Late st Contact Info) Description 10/24/2022 Orders Only [facility] [address] [place] [phone] Transcribe, Orders Support User Pain (Primary Dx) Social History Tobacco Use [...] AM EDT documented as of this encounter Functional Status documented as of this encounter Mental Status * Question Answer Entry Date Author Overall Cognitive Status X 10/27/2022 11:23 AM EDT Maine Mendoza, OTR/L * Question Answer Entry Date Author Overall Cognitive Status X 10/27/2022 3:06 PM EDT Rosa Desai, CCC-FIBER DESIGNER documented in this encounter Plan of Treatment Not on file documented as of this encounter Procedures Procedure Name Priority Date/Time Associated Diagnosis Comments ANKLE BRACHIAL INDEX Routine 10/24/2022 documented in this encounter Results * Ankle Brachial Index (10/24/2022) us Not In System Ref Prov PROCEDURE/MINOR SURGICAL ORDERABLES Final Result MANUALLY TRANSCRIBED RESULTS * CT brain without contrast stroke alert (10/23/2022 5:30 PM EST) us Scanning Provider External IMG CT ORDERABLES Fin al Result * X-ray chest 1 view (10/23/2022 5:00 PM EST) us Scanning Provider External IMG DIAGNOSTIC IMAGIN [...] documented as of this encounter Care Teams Gliding Pilot Instructor Relationship Specialty Start Date End Date Daniel Oswald MD [address] [address] PCP - General Internal Medicine 10/14/23 documented as of this encounter
--- OUTSIDE RECORDS SUMMARY | 2025-04-13 13:00 | XMS_ITS | Encounter Summary ---
Author Organization [facility] tem Address [id number] [address] [place] [address] Care Team Providers Care C Python Developer Name Role Phone Daniel Oswald MD Primary Care Provider [phone] Encounter Details Date Type Department Care Team (Late st Contact Info) Description 10/23/2022 Orders Only [facility] - GEN 8 ICU [address] [place] [id number] Katelyn Marin, SARA Social History Tobacco Use Types Packs/Day Years [...] have Coronavirus / COVID-19? No / Unsure 10/24/2022 10:59 AM EST documented as of this encounter Functional Status [...] documented as of this encounter Care Teams C Python Developer Relationship Specialty Start Date End Date Daniel Oswald MD [address] [place] [address] PCP - General Internal Medicine 10/14/23 documented as of this encounter
--- OUTSIDE RECORDS SUMMARY | 2025-04-13 13:00 | XMS_ITS | Clinical Summary ---
Author Organization [employer] [facility] Address [id number] [place] [address] Care Team Providers Care Process Safety Management Engineer Name Role Phone Daniel Oswald MD Primary Care Provider [phone] Allergies No known active allergies Medications tiotropium bromide (SPIRIVA RESPIMAT) 2.5 mcg/actuation mist Inhale 2 puffs in the morning. Active aspirin 81 mg Take 1 tablet (81 mg total) by mouth in the morning. Active glipiZIDE (GLUCOTROL XL) 10 mg 24 hr tablet Take 1 tablet (10 mg total) by mouth in the morning. Active LORazepam (ATIVAN) 1 mg tablet Take 1 tablet (1 mg total) by mouth every 6 (six) hours as needed for anxiety. Active bisacodyL (DULCOLAX, BISACODYL,) 10 mg suppository Insert 1 suppository (10 mg total) into the rectum as needed for constipation. Every 24 hours PRN Active clonazePAM (KlonoPIN) 0.5 mg tablet Take 1 tablet (0.5 mg total) by mouth in the morning and 1 tablet (0.5 mg total) before bedtime. Active ESCITALOPRAM OXALATE ORALIndications :depression Take 5 mg by mouth in the morning. Indications: depression. Active simethicone (MYLICON) 80 mg chewable tablet Chew 1 tablet (80 mg total) and swallow every 8 (eight) hours as needed for flatulence. Active hydrALAZINE (APRESOLINE) 25 mg tablet Take 1 tablet (25 mg total) by mouth every 6 (six) hours as needed (For SBP >160). Active traZODone (DESYREL) 100 mg tablet Take 1 tablet (100 mg total) by mouth nightly. Active acetaminophen (TylenoL) 325 mg tablet Take 2 tablets (650 mg total) by mouth every 6 (six) hours as needed for pain. Active hydrOXYzine (ATARAX) 25 mg tablet Take 1 tablet (25 mg total) by mouth 3 (three) times a day as needed for itching. 4 Active OLANZapine (ZyPREXA) 5 mg tablet Take 1 tablet (5 mg total) by mouth nightly. 4 Active Additional Information Patient not taking.Reported on 07/06/2024 albuterol (PROVENTIL HFA;VENTOLIN HFA) 90 mcg/actuation inhaler 4 Active JARDIANCE 10 mg tablet tablet 4 Active gabapentin (NEURONTIN) 100 mg capsule Take 2 capsules (200 mg total) by mouth 3 (three) times a day. 4 Active hydroCHLOROthia zide (HYDRODIURIL) 25 mg tablet 4 Active insulin aspart U-100 (NovoLOG Flexpen U-100 Insulin) 100 unit/mL (3 mL) insulin pen Inject under the skin. Active lisinopriL (PRINIVIL,ZESTR IL) 2.5 mg tablet 4 Active metFORMIN (GLUCOPHAGE) 500 mg tablet 4 Active spironolactone (ALDACTONE) 25 mg tablet 4 Active QUEtiapine (SEROquel) 50 mg tablet Take 1 tablet (50 mg total) by mouth nightly. Active tamsulosin (FLOMAX) 0.4 mg capsule Take 1 capsule (0.4 mg total) by mouth in the morning. Active budesonide (PULMICORT) 1 mg/2 mL nebulizer solutionIndicat ions:Chronic obstructive pulmonary disease, unspecified COPD type (CMS-HCC) Inhale 2 mL (1 mg total) by nebulization once daily. 60 mL 4 Active arformoteroL (BROVANA) 15 mcg/2 mL solution for nebulizationInd ications:Chroni c obstructive pulmonary disease, unspecified COPD type (CMS-HCC) Inhale 2 mL (15 mcg total) by nebulization in the morning and 2 mL (15 mcg total) before bedtime. 120 mL 4 Active amLODIPine (NORVASC) 2.5 mg tablet 4 Active FREESTYLE ALYSHA 2 READER misc 4 Active FREESTYLE ALYSHA 2 SENSOR kit 4 Active prednisoLONE acetate (PRED FORTE) 1 % ophthalmic suspension 4 Active ofloxacin (OCUFLOX) 0.3 % ophthalmic solution 4 Active divalproex (DEPAKOTE ER) 250 mg 24 hr tablet Take 1 tablet (250 mg total) by mouth in the morning and at bedtime. Active Active Problems Problem Noted Date Diagnosed Date Recurrent aspiration pneumonia 10/15/2023 Metabolic encephalopathy 10/15/2023 Altered mental status 10/15/2023 Traumatic closed displaced f racture of one rib of left side with routine healing 04/15/2023 Overview (04/15/2023): 3rd rib Closed fracture of transvers e process of lumbar vertebra with routine healing 04/15/2023 Overview (04/15/2023): L1-3 Subdural bleeding 11/09/2022 Subdural hematoma 10/23/2022 Narcotic use agreement exists 03/13/2020 Closed compression fracture of second lumbar cameron tebra 02/22/2020 Need for immunization against influenza 10/03/19 20 Need for prophylactic vaccin ation against Streptococcus pneumoniae (pneumococcus) 10/03/2019 Smoking addiction 09/23/2019 Chronic obstructive pulmonary disease 09/22/2019 Mixed hyperlipidemia 09/22/2019 Essential hypertension 08/29/2019 Diabetic autonomic neuropath y associated with type 2 diabetes mellitus 08/29/2019 Anxiety 08/29/2019 Annual physical exam 08/29/2019 Resolved Problems Problem Noted Date Diagnosed Date Resolved Date Traumatic pneumothorax 04/15/202304/15 Fall from height of greater than 3 feet 04/15/2023 04/15/2023 Acute subdural hematoma 10/23/2022 09/2 01/2024 Vomiting 02/13/2020 05/01/2020 Vomiting and diarrhea 02/13/20202019 Gastroenteritis 02/13/2020 05/01/2020 Uncontrolled type 2 diabetes mellitus with hyperglycemia 08/29/2019 07/30/2020 Immunizations Immunization Administration Dates Next Due COVID-19, mRNA, LNP-S, PF, 1 00mcg/0.5mL Dose 11/19/2021 Influenza, Injectable, quadrivalent (PF) 021,07/30/2020,09/28/2019 Pneumococcal Conjugate 13-Valent 09/28/2019,03/18 Pneumococcal Polysaccharide 05/29/2021 Tdap 11/03/2024,11/01/2020 Family History Medical History Relation Name Comments ALS Brother 1 Throat cancer Brother 2 Heart disease Father Diabetes Mother Heart disease Mother Hypertension Mother Diabetes Sister Hypertension Sister Relation Name Status Comments Brother 1 (Age 65) Brother 2 Brother 3 Alive Father self inflicted gun shot Mother (Age 86) Sister Alive Social History Tobacco Use Types Packs/Day Years Used Date Smoking Tobacco: Every Day Cigarettes 2 52.7 Started: 1972 Smokeless Tobacco: Current Chew Tobacco Cessation:Ready to Q uit: Not Asked; Counseling Given: Not Answered Alcohol Use Standard Drinks/Week Comments Not Currently 2 (1 standard drink = 0.6 oz pur e alcohol) [facility] Utilities Answer Date Recorded In the past 12 months has th e [employer], gas, oil, or water [employer] threatened to shut off services in your home? No 10/15/2023 PHQ-2 Answer Date Recorded Total Score 0 07/06/2024 PRAPARE - Transportation Answer Date Re corded [...] got money to buy more. Never True 11/03/2024 Within the past 12 months th e food we bought just didn't last and we didn't have money to get more. Never True 11/03/2024 Purpose - Life Answer Date Recorded Purpose and direction in life Unknown 01 /07/2021 Sex and Gender Information Value Date Recorded Sex Assigned at Not on file Legal Sex Male 11:23 AM EDT Gender Identity Not on file Sexual Orientation Not on file Last Filed Vital Signs Vital Sign Reading Time Taken Comments Blood Pressure 145/97 11/03/2024 8:20 PM EDT Pulse 76 11/03/2024 8:20 PM EDT Temperature 36.5 C (97.7 F) 11/03/2024 8:20 PM EDT Respiratory Rate 20 11/03/2024 8:20 PM EDT Oxygen Saturation 97% 11/03/2024 8:20 PM EDT Inhaled Oxygen Concentration - - Weight 86.8 kg (191 lb 4.8 oz) 11/03/2024 8:20 P M EDT Height 180.3 cm (5' 11 ) 07/06/2024 10:05 PM EST Body Mass Index 26.68 07/06/2024 10:05 PM EST Plan of Treatment Health Maintenance Due Date Last Done Comments Diabetic Ophthalmology Exam 1960 Statin Use: Diabetic 1960 Tobacco Counseling 1960 Adult BMI Follow Up Plan 1978 Diabetic Foot Exam 1978 Colonoscopy 2005 Zoster (Shingles) Vaccine (1 of 2) 2010 COVID-19 Vaccine (2 - season) 04/17/202412/2021 Influenza Vaccine 04/17/2025 05/29/2021, , 09/28/2019 Depression Screening 07/06/2025 07/06/2024 Adult BMI Screening 11/03/2025 11/03/2024 Tobacco Screening 11/03/2025 11/03/2024 DTaP,Tdap and Td Vaccines (3 - Td or Tdap) 11/03/2034 11/03/2024, 11/01/2020 Goals Goal Patient Goal Type Associated Problems Recent Progress Patient-Stated? Author per pt sister Delma, return to [facility] General Yes Zoraida Aaron, CYANIDE POT HARDENER Note: Evaluation of progress towards goal: under assessment Medical Devices Not on file Insurance MEDICAID [place] Advance Directives Documents on File Type Date Recorded Patient Director International Expl anation DNR Physician Order 03/29/2024 1:53 PM Advance Directive 03/08/2024 8:49 PM Avanc ed Directive 03-08-24 * Full Code (Latest Code Status on File) Date Activated Date Inactivated Comments 10/15/2023 9:17 AM 10/19/2023 6:39 PM * Full Code Date Activated Date Inactivated Comments 11/10/2022 1:16 AM 11/21/2022 2:20 PM * Full Code Date Activated Date Inactivated Comments 10/23/2022 9:24 PM 10/30/2022 7:58 PM Care Teams Process Safety Management Engineer Relationship Specialty Start Date End Date Daniel Oswald MD [address] [place] [address] PCP - General Internal Medicine 10/14/23
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
--- OUTSIDE RECORDS SUMMARY | 2025-04-13 13:01 | XMS_ITS | Encounter Summary ---
Author Organization [employer] Address [id number] [place] [address] Care Team Providers Care Pickle Processor Name Role Phone Daniel Oswald MD Primary Care Provider Encounter Details Date Type Department Care Team (Late st Contact Info) Description 09/06/2020 Orders Only [facility] [address] [place] [address] Dori Guy MA Type 2 DM with diabetic neuropathy affecting both sides of body ([facility]-HCC); Essential hypertension; DM type 2 with diabetic mixed hyperlipidemia (CMS-HCC); Screening for malignant neoplasm of prostate Social History Tobacco Use Types Packs/Day Years [...] AM EST documented as of this encounter Plan of Treatment Not on file documented as of this encounter Procedures Procedure Name Priority Date/Time Associated Diagnosis Comments CBC WITH AUTO DIFFERENTIAL Routine 09/05/2020 Type 2 DM with diabetic neuropathy affecting both sides of body (CMS-HCC) Essential hypertension DM type 2 with diabetic mixed hyperlipidemia (CMS-HCC) PROSTATIC SPECIFIC ANTIGEN SCREEN Routine 09/05/2020 Screening for malignant neoplasm of prostate TSH Routine 09/05/2020 Type 2 DM with diabetic neuropathy affecting both sides of body (CMS-HCC) Essential hypertension DM type 2 with diabetic mixed hyperlipidemia (CMS-HCC) LIPID PROFILE Routine 09/05/2020 Type 2 DM with diabetic neuropathy affecting both sides of body (CMS-HCC) Essential hypertension DM type 2 with diabetic mixed hyperlipidemia (CMS-HCC) COMPREHENSIVE METABOLIC PANEL Routine 09/05/2020 Type 2 DM with diabetic neuropathy affecting both sides of body (CMS-HCC) Essential hypertension DM type 2 with diabetic mixed hyperlipidemia (CMS-HCC) documented in this encounter Results * TSH (09/05/2020) External Tsh 0.677 SUNQUEST 09/05/2020 Talita Castro APRN-INSURANCE SALES ASSISTANT LAB BLOOD ORDERABLES Final Result SUNQUEST * Prostatic specific antigen screen (09/05/2020) Psa 1.37 SUNQUEST 09/05/2020 [facility] Final Result SUNQUEST * Lipid profile (09/05/2020) External Cholesterol 126 SUNQUEST External Hdl Cholesterol 63 SUNQUEST External Ldl (Calc) 57 SUNQUEST External Triglycerides 30 SUNQUEST External Very Low Lipoprotein 6.0 SUNQUEST 09/05/2020 [facility] Edited Result - Final Performing Organization Address [facility] de Phone Number SUNQUEST * Comprehensive metabolic panel (09/05/2020) External Albumin 3.4 SUNQUEST External Alt Sgpt 45 SUNQUEST External Anion Gap 9.9 SUNQUEST External Ast 32 SUNQUEST External Blood Urea Nitrogen Bun 19 SUNQUEST External Calcium Ca 10.3 SUNQUEST External Chloride 105 SUNQUEST External Co2 / Carbon Dioxide 27 SUNQUEST External Creatinine 1.13 SUNQUEST External Gfr Amer >60 SUNQUEST External Gfr Non Amer >60 SUNQUEST External Glucose Fasting Or Random (Fbs) 75 SUNQUEST External Potassium K 3.9 SUNQUEST External Sodium Na 138 SUNQUEST 09/05/2020 [facility] Final Result Performing Organization Address [facility] de Phone Number SUNQUEST * CBC auto differential (09/05/2020) External Wbc Count 10.9 SUNQUEST External Rbc Count 4.94 SUNQUEST External Hemoglobin 15.9 SUNQUEST External Hematocrit Hct 45.9 SUNQUEST External Mcv 92.9 SUNQUEST External MCH 32.2 SUNQUEST External Mchc 34.6 SUNQUEST External Rdw 12.6 SUNQUEST External Platelet Count 273 SUNQUEST External Mpv 11.8 SUNQUEST 09/05/2020 [facility] Final Result Performing Organization Address [facility] de Phone Number SUNQUEST documented in this encounter Visit Diagnoses Diagnosis Type 2 DM with diabetic neuropathy affecting both sides of body (CMS-HCC) Essential hypertension Unspecified essential hypertension DM type 2 with diabetic mixed hyperlipidemia (CMS-HCC) Screening for malignant neoplasm of prostate documented in this encounter Additional Health Concerns [...] documented as of this encounter Care Teams Pickle Processor Relationship Specialty Start Date End Date Daniel Oswald MD [address] [place] [address] PCP - General Internal Medicine 10/14/23 documented as of this encounter
--- NOTE | 2025-04-13 13:55 | PM.WCHP ---
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 He complains of painful calluses beneath first metatarsal heads bilaterally. He also complains of burning and tingling in his feet. He does admit to pain in his calves that worsens with walking. [facility] Medical History (Updated 04/13/25 @ 13:57 by DOMONIQUE Juarez) History of traumatic brain injury ?Z87.820 - Personal history of traumatic brain injury (ICD-10) Delirium due to multiple etiologies ?F05 - Delirium due to known physiological condition (ICD-10) Anxiety about health ?R45.89 - Other symptoms and signs involving emotional state (ICD-10) Hyperglycemia due to type 2 diabetes mellitus ?E11.65 - Type 2 diabetes mellitus with hyperglycemia (ICD-10) Chronic obstructive pulmonary disease with (acute) exacerbation ?J44.1 - Chronic obstructive pulmonary disease with (acute) exacerbation (ICD-10) Hypertension ?I10 - Essential (primary) hypertension (ICD-10) Delirious ?R41.0 - Disorientation, unspecified (ICD-10) Acute respiratory failure ?J96.00 - Acute respiratory failure, unspecified whether with hypoxia or hypercapnia (ICD-10) COPD exacerbation ?J44.1 - Chronic obstructive pulmonary disease with (acute) exacerbation (ICD-10) Acute hyperglycemia ?R73.9 - Hyperglycemia, unspecified (ICD-10) Chronic pain ?G89.29 - Other chronic pain (ICD-10) BPH (benign prostatic hyperplasia) ?N40.0 - Benign prostatic hyperplasia without lower urinary tract symptoms (ICD-10) Dyspnea ?R06.00 - Dyspnea, unspecified (ICD-10) Hyperglycemia ?R73.9 - Hyperglycemia, unspecified (ICD-10) Closed head injury ?S09.90XA - Unspecified injury of head, initial encounter (ICD-10) Medical non-compliance ?Z91.199 - Patient's noncompliance with other medical treatment and regimen due to unspecified reason (ICD-10) COPD (chronic obstructive pulmonary disease) ?J44.9 - Chronic obstructive pulmonary disease, unspecified (ICD-10) Intractable back pain ?M54.9 - Dorsalgia, unspecified (ICD-10) Closed rib fracture ?S22.39XA - Fracture of one rib, unspecified side, initial encounter for closed fracture (ICD-10) Drug abuse ?F19.10 - Other psychoactive substance abuse, uncomplicated (ICD-10) Depression ?F32.A - Depression, unspecified (ICD-10) Failure to thrive Tobacco abuse ?Z72.0 - Tobacco use (ICD-10) Insomnia disorder ?G47.00 - Insomnia, unspecified (ICD-10) Hyperlipidemia associated with type 2 diabetes mellitus ?E11.69 - Type 2 diabetes mellitus with other specified complication (ICD-10) ?E78.5 - Hyperlipidemia, unspecified (ICD-10) Insulin dependent type 2 diabetes mellitus, uncontrolled Chronic obstructive pulmonary disease ?J44.9 - Chronic obstructive pulmonary disease, unspecified (ICD-10) Hypercholesteremia ?E78.00 - Pure hypercholesterolemia, unspecified (ICD-10) Diabetes ?E11.9 - Type 2 diabetes mellitus without complications (ICD-10) Surgical History History of total hip arthroplasty ?Z96.649 - Presence of unspecified artificial hip joint (ICD-10) Family History (Updated 09/02/23 @ 06:43 by Brandi Ba) Mother Family history of CHF (congestive heart failure) Family history of COPD (chronic obstructive pulmonary disease) Family history of diabetes mellitus Family history of hypertension Family history of stroke Father Family history of cancer Family history of diabetes mellitus Family history of hypertension Family history of myocardial infarction Social History (Updated 09/02/23 @ 06:44 by Brandi Ba) Within the past year, how often did you have a drink containing alcohol: 4 or more times a week Within the past year, how many standard drinks containing alcohol did you have on a typical day: 1 or 2 Within the past year, how often did you have six or more drinks on one occasion: never Total score: 0 Score interpretation: Questions 2 and 3 are 0. It can be assumed that the patient's drinking is below the recommended limits. However, please confirm the accuracy of the patient's alcohol intake over the last few months. Smoking status: Heavy tobacco smoker What tobacco products do you use: cigarettes Second hand tobacco smoke exposure: No Non-prescribed substance use: former substance user, crack/cocaine and opiods/painkillers Previous occupational history: disabled Known occupational exposures/hazards: No Highest level of school completed/degree received: 12th grade, no diploma Do you want help with school or training: No Are you now , , , , never or living with a partner: refused to answer In a typical week, how many times do you talk on the telephone with family, friends, or neighbors: never How often do you get together with friends or relatives: never How often do you attend holiness or islam services: never Do you belong to any clubs or organizations such as holiness groups unions, [employer] or athletic groups, or school groups: no Total score: 0 Score interpretation: A score of less than or equal to 1 indicates the most socially isolated. Little interest or pleasure in doing things: several days Feeling down, depressed, or hopeless: several days Feel stressed/tense/nervous/anxious/difficulty sleeping: decline to answer Life stressors: unknown source of stress Due to disability, difficulty making decisions: No Do you think of yourself as: straight/heterosexual Gender Identity: male Meds Home Medications and Allergies Home Medications ?Medication ?Instructions ?Recorded ?Confirmed ?Type glipizide 10 mg tablet 10 mg PO DAILY 01/31/23 09/02/23 History quetiapine 50 mg tablet 50 mg PO .hs 01/31/23 09/02/23 History tamsulosin 0.4 mg capsule 0.4 mg PO DAILY 01/31/23 09/02/23 History tiotropium bromide 2.5 2 puff inhalation QDAY 01/31/23 09/02/23 History mcg/actuation mist for inhalation (Spiriva Respimat) insulin glargine 100 unit/mL 40 unit (0.4 mL) subcut BID 30 02/09/23 09/02/23 Rx subcutaneous solution (Lantus days #21 mL U-100 Insulin) aspirin 81 mg tablet,delayed 81 mg PO DAILY 02/26/23 09/02/23 History release hydroxyzine HCl 25 mg tablet 25 mg PO BID PRN anxiety 02/26/23 09/02/23 History ipratropium 20 mcg-albuterol 100 1 puff inhalation Q6H PRN sob 02/26/23 09/02/23 History mcg/actuation mist for inhalation (Combivent Respimat) lisinopril 2.5 mg tablet 2.5 mg PO DAILY 03/12/23 09/02/23 History metoprolol tartrate 25 mg tablet 25 mg PO BID 03/12/23 09/02/23 History Allergies Allergy/AdvReac Type Severity Reaction Status Date / Time No Known Allergies AdvReac Mild Verified 04/15/23 07:55 Exam Narrative: Exam Narrative: Derm: Toenails 1 through 10 are thickened, elongated, mycotic, and painful.? No evidence of paronychia.? Skin is diffusely dry, thin, and atrophic.? Vascular: DP and PT pulses are 1/4 bilaterally. Capillary refill is less than 3 seconds to all toes. Digital hair is absent bilaterally. Neuro: Vibratory sensation is absent bilaterally.? Achilles deep tendon reflexes are absent bilaterally.? Protective sensation was tested with a monofilament and is present in 0/5 areas tested on the right and 0/5 areas tested on the left.? Musculoskeletal: No gross deformity.? Strength 5/5 in all planes bilaterally. Palpable soft tissue mass noted medial to the first metatarsal shaft on the right foot. It is unclear if this is a multilobular mass or 2 separate soft tissue masses. No fluctuance, calor, or erythema to suggest infection/abscess. The masses are nontender to palpation and are mobile. Assessment and Plan Assessment and Plan (1) Type 2 diabetes mellitus with diabetic neuropathy, unspecified: (2) Tinea unguium: (3) Nail dystrophy: (4) Type 2 diabetes mellitus with other diabetic ophthalmic complication: (5) Unsteady gait when walking: (6) Diminished pulses in lower extremity: Plan The patient is a 64-year-old gentleman with history of type 2 diabetes and neuropathy who presents for routine nail care. Nails were debrided and calluses on each foot were pared without incident. The patient today noted pain in his lower legs that worsens with activity. DP and PT pulses are palpable bilaterally. Screening ABIs were ordered. Follow-up for nail and callus care in 3 months. Acute Procedures Podiatry Nail Debridement Class B Findings Advanced trophic changes as evidenced by any three of the following: decreased hair growth, nail changes (thickening) and skin texture (thin or shiny) Class C Findings Claudication: Yes Temperature changes: No Edema: No Nail debridement paresthesia (abnormal spontaneous sensations in the feet): Yes Burning: Yes Qualifies If: Qualifiers If:: A patient qualifies for nail debridement if they have: 1 class A finding (Q7) 2 class B findings (Q8) OR 1 class B & 2 class C findings in addition to a primary condition (Q9) Nail Procedure Nail Procedure Time out: Yes Nail procedure: other (Toenail debridement) Number of affected nails: 10 Location (toes): left and right Procedure successful: Yes Patient tolerated procedure: well and no complications Additional comments: Toenail 1 through 10 were sharply debrided without incident. Calluses beneath the first metatarsal heads bilaterally were pared using a dermal curette and #15 blade without incident.
== END 2025-04-13 12:56 | disposition home or self-care (01) ==
LOC: WC 12:57
PROVIDERS: PCP Internal Medicine; Visit Provider Physician Assistant
DX: B35.1 Tinea unguium (principal); E11.40 Type 2 diabetes mellitus with diabetic neuropathy, unspecified; L60.3 Nail dystrophy; E11.39 Type 2 diabetes mellitus with other diabetic ophthalmic complication; R26.81 Unsteadiness on feet; R09.89 Other specified symptoms and signs involving the circulatory and respiratory systems
CPT/HCPCS: 11721

== ENCOUNTER 2025-06-08 12:03 | Outpatient (OUT) | payer MEDICAID, SELFPAY ==
--- OUTSIDE RECORDS SUMMARY | 2025-06-08 12:07 | XMS_ITS | Clinical Summary ---
Author Organization [facility] Address [id number] 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 Active bisacodyL (DULCOLAX, BISACODYL,) 10 mg suppository Insert 1 suppository (10 mg total) into the rectum as needed for constipation. Every 24 hours PRNActive clonazePAM (KlonoPIN) 0.5 mg tablet Take 1 tablet (0.5 mg total) by mouth in the morning and 1 tablet (0.5 mg total) before bedtime.Active ESCITALOPRAM OXALATE ORAL Indications:depressionTake 5 mg by mouth in the morning. Indications: depression.Active simethicone (MYLICON) 80 mg chewable tablet Chew 1 tablet (80 mg total) and swallow every 8 (eight) hours as needed for flatulence.Active hydrALAZINE (APRESOLINE) 25 mg tablet Take 1 tablet (25 mg total) by mouth every 6 (six) hours as needed (For SBP >160).Active traZODone (DESYREL) 100 mg tablet Take 1 tablet (100 mg total) by mouth nightly.Active acetaminophen (TylenoL) 325 mg tablet Take 2 tablets (650 mg total) by mouth every 6 (six) hours as needed for pain. Active hydrOXYzine (ATARAX) 25 mg tablet Take 1 tablet (25 mg total) by mouth 3 (three) times a day as needed for itching.10/19/2023ctive OLANZapine (ZyPREXA) 5 mg tablet Take 1 tablet (5 mg total) by mouth nightly.10/19/2023ctive Additional Information Patient not taking.Reported on 07/06/2024 albuterol (PROVENTIL HFA;VENTOLIN HFA) 90 mcg/actuation inhaler 03/18/2024ctive JARDIANCE 10 mg tablet tablet 03/18/2024ctive gabapentin (NEURONTIN) 100 mg capsule Take 2 capsules (200 mg total) by mouth 3 (three) times a day.02/29/2024ctive hydroCHLOROthiazide (HYDRODIURIL) 25 mg tablet 03/15/2024ctive insulin aspart U-100 (NovoLOG Flexpen U-100 Insulin) 100 unit/mL (3 mL) insulin pen Inject under the skin.Active lisinopriL (PRINIVIL,ZESTRIL) 2.5 mg tablet 03/06/2024ctive metFORMIN (GLUCOPHAGE) 500 mg tablet 03/18/2024ctive spironolactone (ALDACTONE) 25 mg tablet 03/18/2024ctive QUEtiapine (SEROquel) 50 mg tablet Take 1 tablet (50 mg total) by mouth nightly.Active tamsulosin (FLOMAX) 0.4 mg capsule Take 1 capsule (0.4 mg total) by mouth in the morning.Active budesonide (PULMICORT) 1 mg/2 mL nebulizer solution Indications:Chronic obstructive pulmonary disease, unspecified COPD type (CMS-HCC)Inhale 2 mL (1 mg total) by nebulization once daily. 60 mL ctive arformoteroL (BROVANA) 15 mcg/2 mL solution for nebulization Indications:Chronic obstructive pulmonary disease, unspecified COPD type (CMS-HCC)Inhale 2 mL (15 mcg total) by nebulization in the morning and 2 mL (15 mcg total) before bedtime. 120 mL ctive amLODIPine (NORVASC) 2.5 mg tablet 07/01/2024ctive FREESTYLE ALYSHA 2 READER misc 05/19/2024ctive Access Point ALYSHA 2 SENSOR kit 06/23/2024ctive prednisoLONE acetate (PRED FORTE) 1 % ophthalmic suspension 07/04/2024ctive ofloxacin (OCUFLOX) 0.3 % ophthalmic solution 07/04/2024ctive divalproex (DEPAKOTE ER) 250 mg 24 hr tablet Take 1 tablet (250 mg total) by mouth in the morning and at bedtime.Active Active Problems ProblemNoted DateDiagnosed DateRecurrent aspiration jayagcfwu47/29/2024Metabolic uijxrrynprunga78/29/2024ltered mental mvhcda2210/15/2023Traumatic closed displaced fracture of one rib of left side with routine sbknktx8504/15/2023 Overview (04/15/2023): 3rd rib Closed fracture of transverse process of lumbar vertebra with routine healing 04/15/2023 Overview (04/15/2023): L1-3 Subdural yveooyur75/26/2023Subdural svivcchv65/09/2023Narcotic use agreement xzbclb5203/13/2020Closed compression fracture of second lumbar dndjuutz23/08/2020 Need for immunization against ajgjopfuj25/17/2020Need for prophylactic vaccination against Streptococcus pneumoniae (pneumococcus)10/03/2019Smoking devheltqd85/07/2020Chronic obstructive pulmonary joknmip8009/22/2019Mixed rbbmicduedytwq41/06/2020Essential xxaztedohvck74/13/2020Diabetic autonomic neuropathy associated with type 2 diabetes wbkqyjyh02/13/9028Kwqoovq13/13/2020 Annual physical exam08/29/2019 Resolved Problems ProblemNoted DateDiagnosed DateResolved DateTraumatic vdlrpnmxendr18/30/2023 04/15/2023Fall from height of greater than 3 feet/cute subdural mcddxpij05/0674Xkccfvvy30Vomiting and zfxpilst626057Zfwsqartmdqkaaw98/29/202009/15/2020Uncontrolled type 2 diabetes mellitus with ffkxibckkfttn13 Encounters DateTypeDepartmentCare GxbeZiutayhgauj04/17/2025 4:01 PM EDT - 05/04/2025 12:04 AM EDTEmergency [facility] [address] [place] [address] Sury Ortiz, DO Fall, initial encounter (Primary Dx); Neck pain; Hyperglycemia Discharge Disposition: Home05/03/2025Travelfrom Last 3 Months Immunizations ImmunizationAdministration DatesNext DueCOVID-19, mRNA, LNP-S, PF, 100mcg/0.5mL Dose11/19/2021Influenza, Injectable, quadrivalent (PF)05/29/2021,07/30/2020, 09/28/2019Pneumococcal Conjugate 13-Owbeug4409/28/2019,04/13/2017Pneumococcal Udafpaeghvjvtm36/13/9520Ymkc82/20/2025,11/01/2020 Family History Medical HistoryRelationNameCommentsALSBrother 1Throat cancerBrother 2Heart diseaseFatherDiabetesMotherHeart diseaseMotherHypertensionMotherDiabetesSister HypertensionSisterRelationNameStatusCommentsBrother 1Deceased (Age 65)Brother 2 DeceasedBrother 3AliveFatherDeceasedself inflicted gun shotMotherDeceased (Age 86)SisterAlive Social History Tobacco UseTypesPacks/DayYears UsedDateSmoking Tobacco: Every DayCigarettes1.9 52.8Started: 1973Smokeless Tobacco: CurrentChew Tobacco Cessation:Ready to Q uit: Not Asked; Counseling Given: Not Answered Alcohol UseStandard Drinks/WeekCommentsNot Currently2 (1 standard drink = 0.6 oz pure alcohol)[facility] UtilitiesAnswerDate RecordedIn the past 12 months has the [employer], gas, oil, or water [employer] threatened to shut off services in your home?No10/15/2023HQ-2AnswerDate RecordedTotal Ghsat505/20/2024PRAPARE - TransportationAnswerDate RecordedIn the past 12 months, has lack of transportation kept you from medical appointments or from getting medications?No 10/15/2023In the past 12 months, has lack of transportation kept you from meetings, work, or from getting things needed for daily living?No10/15/2023 Housing InstabilityAnswerDate RecordedAre you worried or concerned that in the next two months you may not have stable housing that you own, rent or stay in as a part of a household?No10/15/2023hildcareAnswerDate RecordedChildcareUnknown 01/26/2019EmploymentAnswerDate YxskbqmcZhvtcnayhdMnfjhzb12/12/2019Hunger ScreeningAnswerDate RecordedWithin the past 12 months we worried whether our food would run out before we got money to buy more.Never True05/03/2025Within the past 12 months the food we bought just didn't last and we didn't have money to get more.Never True05/03/2025Purpose - LifeAnswerDate RecordedPurpose and direction in fbneXddgnwu57/12/2021ex and Gender InformationValueDate Recorded Sex Assigned at BirthNot on fileLegal IgyLqee8903/22/2015 11:23 AM EDTGender IdentityNot on fileSexual OrientationNot on file Last Filed Vital Signs Vital SignReadingTime TakenCommentsBlood Pkxkdvfr247/5022005/03/2025 11:57 PM EDT Vfceu832305/03/2025 11:57 PM PGQOimjfcttujp02.8 ??C (98.2 ??F)05/03/2025 4:04 PM EDTRespiratory Nmcc508705/03/2025 11:57 PM EDTOxygen Zqykkwraij43%05/03/2025 11:57 PM EDTInhaled Oxygen Concentration--Vnzbra78.2 kg (190 lb)05/03/2025 4:04 PM EDT Yqsaaf283.3 cm (5' 11 )05/03/2025 4:04 PM EDTBody Mass Index26. 4:04 PM EDT Plan of Treatment Health MaintenanceDue DateLast DoneCommentsDiabetic Ophthalmology Exam1960 Statin Use: Ejmrtlck53/19/1961Tobacco Nipbvujlby70/19/1961dult BMI Follow Up Plan1978Diabetic Foot Exam11/02/19783808Hmqyorllkei63/19/2006Zoster (Shingles) Vaccine (1 of 2)2010COVID-19 Vaccine (2 - season)2025 11/19/2021Influenza Wnzjowr94, 07/30/2020, 09/28/2019 Depression Pictqlxqz08/dult BMI Ixsfdgmne57/ Tobacco Lrxjibbsq44DTaP,Tdap and Td Vaccines (3 - Td or Tdap) /, 11/01/2020 Goals GoalPatient Goal TypeAssociated ProblemsRecent ProgressPatient-Stated?Author per pt sister Delma[facility] Note: Evaluation of progress towards goal: under assessment Medical Devices Not on file Procedures Procedure NamePriorityDate/TimeAssociated DiagnosisCommentsER EXTRA URINE MARBLE STAT05/03/2025 6:06 PM EDT ER EXTRA URINE ELOMHKDYQTQ98/17/2025 6:06 PM EDT ER EXTRA LKNPPJLZU74/17/2025 6:06 PM EDT POCT NURSING URINE MACROSCOPIC GKElugczh42/17/2025 6:[address] ABDOMEN AND PELVIS WO YBSBGKDQ69/17/2025 5:[address] CHEST WO VCKTEHNF41/17/2025 5:44 PM EDT TROP I, HIGH SENSITIVITY 1 WLQVZOQO82/17/2025 5:[address] CERVICAL SPINE WO VJBDESBL56/17/2025 5:[address] BRAIN WO INGKDEJC45/17/2025 5:37 PM EDT EXTRA TUBES BLUE HLPHlchvbb68/17/2025 4:40 PM EDT EXTRA JYLPIPziqinp97/17/2025 4:40 PM EDT TROPONIN I, HIGH SENSITIVITY 0 BYRIDTAJ40/17/2025 4:40 PM EDT TROPONIN I, HIGH SENSITIVITY 0 AJTIPYUG88/17/2025 4:40 PM EDT ZHIFDWZXJO12/17/2025 4:40 PM EDT COMPREHENSIVE METABOLIC ZACVCPZYB21/17/2025 4:40 PM EDT CBC WITH AUTO MRDDVAAMGEXNVHQW25/17/2025 4:40 PM EDT from Last 3 Months Results * Extra Urine [place] (05/03/2025 6:06 PM EDT)ComponentValueRef RangeTest Method Analysis TimePerformed AtPathologist SignatureExtra TubeAuto Resulted 05/03/2025 8:02 PM EDTPLima [facility] (Source) Anatomical Location / LateralityCollection Method / VolumeCollection Time Received TimeUrineUrine specimen collection, clean catch / Qcmbrec5505/03/2025 6:06 PM EDT05/03/2025 6:40 PM EDT Narrative Authorizing ProviderResult TypeResult StatusAlisa Radha Ortiz DOSTEFANO ORDERABLES Final ResultPerforming OrganizationAddressCity/State/ZIP CodePhone Number [facility] [address] [place] [address], * Extra Urine Culture (05/03/2025 6:06 PM EDT)ComponentValueRef RangeTest Method Analysis TimePerformed AtPathologist SignatureExtra TubeAuto Resulted 05/03/2025 8:02 PM EDTPSHELBY MEMORIAL HOSPITALpecimen (Source) Anatomical Location / LateralityCollection Method / VolumeCollection Time Received TimeUrineUrine specimen collection, clean catch / Zblpbrr9905/03/2025 6:06 PM EDT05/03/2025 6:40 PM EDT Narrative Authorizing ProviderResult TypeResult StatusAlisa Radha Ortiz DOURINE ORDERABLES Final ResultPerforming OrganizationAddressCity/State/ZIP CodePhone Number [address] [place] [address], [place] * Extra Urine (05/03/2025 6:06 PM EDT)ComponentValueRef RangeTest MethodAnalysis TimePerformed AtPathologist SignatureExtra TubeAuto Ymnaevio72/17/2025 8:02 PM EDOHIOHEALTH DUBLIN [facility]ITALpecimen (Source)Anatomical Location / LateralityCollection Method / VolumeCollection TimeReceived TimeUrineUrine specimen collection, clean catch / Eusznzp3905/03/2025 6:06 PM EDT05/03/2025 6:40 PM EDT Narrative Authorizing ProviderResult TypeResult StatusSury Ortiz DOSTEFANO ORDERABLES Final ResultPerforming OrganizationAddressty/State/ZIP CodePhone Number [address] [place] [address], [place] * (ABNORMAL) POCT Nursing Urine Macroscopic UA (05/03/2025 6:03 PM EDT)Component ValueRef RangeTest MethodAnalysis TimePerformed AtPathologist SignatureVERMONT STATE [facility] Urine Specific Gravity1.0151.010, 1.015, 1.020, 1.5704505/03/2025 6:06 PM EDT [facility] Urine Leukocyte EsteraseNegative Lgdeaaou80/17/2025 6:06 PM [facility] Urine DofahogMkzsonqpFbaidmdq41/17/2025 6:06 PM [facility] Urine pH6.55.0, 6.0, 6.5, 7.0, 7.5, 8.0, 8.5, 5.509 6:06 PM [facility] Urine ProteinTrace(A)Negative 05/03/2025 6:06 PM [facility] Urine Glucose >=1000 mg/dL(A)Nfpfjpbm76/17/2025 6:[address] [facility] Urine KetonesTrace(A)Rhrhddtp67/17/2025 6:06 PM [facility] Urine Urobilinogen4.0 E.U./dL05/03/2025 6:06 PM [facility] Urine BilirubinNegativeNegative 05/03/2025 6:06 PM [facility] Urine Blood/HGB WvddmknwHsvjraie26/17/2025 6:06 PM [facility] Specimen (Source)Anatomical Location / LateralityCollection Method / Volume Collection TimeReceived UijdVcitn19/17/2025 6:03 PM EDT05/03/2025 6:06 PM EDT Narrative Authorizing ProviderResult TypeResult StatusSury Ortiz DOPOINT OF CARE TEST ORDERABLESFinal ResultPerforming OrganizationAddressCity/State/ZIP CodePhone Number [facility] [address] [place] [address], [place] * CT abdomen and pelvis without contrast (05/03/2025 5:45 PM EDT)Anatomical RegionLateralityModalityBody, Abdomen, Body CoveraN/AComputed Tomography Specimen (Source)Anatomical Location / LateralityCollection Method / Volume Collection TimeReceived Time05/03/2025 5:46 PM EDT Narrative 05/03/2025 5:51 PM EDT HISTORY: A 64-year-old male with a history of fall. Complaining of headaches. EXAM/TECHNIQUE: ??Multidetector spiral CT scan of abdomen and pelvis is performed without intravenous contrast administration. ??Multiplanar reconstruction images are reformatted. All CT scans at this facility use dose modulation, iterative reconstruction, and/or weight based dosing when appropriate to reduce radiation dose to as low as reasonably achievable. COMPARISON: ??Comparison is made with the abdomen of 11/10/2022. Findings: The lung bases are clear . The liver is normal in size, configuration and attenuation. ??Spleen and pancreas are normal in size and normal. ??No focal masses are identified in the precontrast examination. The gallbladder is normal. ??There is no evidence of biliary ductal dilatation. The adrenal glands are normal. Both kidneys are normal in size, configuration and position. There are tiny calcifications in the upper pole of the left kidney which could be vascular calcifications or nonobstructing calculi. No evidence of hydronephrosis on the either side. There is a small cyst in the left kidney. Urinary bladder is partially obscured by the metallic hardening artifacts. Prostatic gland is enlarged with calcifications. The bowel gas pattern is nonobstructive. The appendix is normal. No evidence of laceration of recent, hematoma or fluid collection. There are vascular calcifications. There are diffuse degenerative changes in the lower thoracic or lumbar spine. There is a kyphoplasty procedure of L2 with compression deformity. Severe degenerative changes are seen at L5-S1. Right hip joint is intact. There is a total left hip replacement. IMPRESSION: ?? 1. ??No evidence of trauma related acute intra-abdominal or intrapelvic pathology. 2. ??No evidence of hematoma or fluid collection. 3. ??Tiny nonobstructing calculi in the upper pole of the left kidney. There is a left renal cyst. 4. ??Prosthetic enlargement with calcifications. 5. ??Normal appendix. Bowel gas pattern is nonobstructive. 6. 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 Left hip replacement. Finalized by Phuc Faria MD on 05/03/2025 5:51 PM Procedure Note Phuc Faria MD - 05/03/2025 HISTORY: A 64-year-old male with a history of fall. Complaining ofheadaches. EXAM/TECHNIQUE: Multidetector spiral CT scan of abdomen and pelvis isperformed without intravenous contrast administration. Multiplanarreconstruction images are reformatted. All CT scans at this facility use dose modulation, iterativereconstruction, and/or weight based dosing when appropriate to reduceradiation dose to as low as reasonably achievable. COMPARISON: Comparison is made with the abdomen of 11/10/2022. Findings: The lung bases are clear . The liver is normal in size, configuration and attenuation. Spleen andpancreas are normal in size and normal. No focal masses are identified inthe precontrast examination. The gallbladder is normal. There is noevidence of biliary ductal dilatation. The adrenal glands are normal. Both kidneys are normal in size,configuration and position. There are tiny calcifications in the upperpole of the left kidney which could be vascular calcifications ornonobstructing calculi. No evidence of hydronephrosis on the either side.There is a small cyst in the left kidney. Urinary bladder is partially obscured by the metallichardening artifacts. Prostatic gland is enlarged with calcifications. The bowel gas pattern is nonobstructive. The appendix is normal. No evidence of laceration of recent, hematoma or fluid collection. Thereare vascular calcifications. There are diffuse degenerative changes in the lower thoracic or lumbarspine. There is a kyphoplasty procedure of L2 with compression deformity.Severe degenerative changes are seen at L5-S1. Right hip joint is intact.There is a total left hip replacement. IMPRESSION: 1. No evidence of trauma related acute intra-abdominal or intrapelvicpathology. 2. No evidence of hematoma or fluid collection. 3. Tiny nonobstructing calculi in the upper pole of the left kidney.There is a left renal cyst. 4. Prosthetic enlargement with calcifications. 5. Normal appendix. Bowel gas pattern is nonobstructive. 6. 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 Left hip replacement. Finalized by Phuc Faria MD on 05/03/2025 5:51 PM Authorizing ProviderResult TypeResult StatusAlisa Radha Ortiz [facility] ORDERABLES Final Result * CT chest without contrast (05/03/2025 5:44 PM EDT)Anatomical RegionLaterality ModalityBody, Lung, Chest, Body CoveraN/AComputed TomographySpecimen (Source) Anatomical Location / LateralityCollection Method / VolumeCollection Time Received Time05/03/2025 5:46 PM EDT Narrative 05/03/2025 5:52 PM EDT CLINICAL INFORMATION: ??Fall. Pain. TECHNIQUE/PROCEDURE: CT chest without intravenous contrast. All CT scans at this facility use dose modulation, iterative reconstruction, and/or weight based dosing when appropriate to reduce radiation dose to as low as reasonably achievable. COMPARISON: CT low dose lung screening 06/13/2021. FINDINGS: Evaluation degraded by patient motion artifact. Visualized thyroid gland is unremarkable. Ascending thoracic aorta measures 4.3 cm in diameter. Heart size is within normal limits. No pericardial effusion. No significant coronary artery calcifications. No discrete enlarged mediastinal lymph nodes by size criteria. Main pulmonary trunk size is within normal limits. Trachea and central airways show no acute abnormality. No pleural effusion. No discrete pneumothorax. No focal consolidation. Dependent atelectasis. Scattered pleural-based pulmonary nodules measuring 2-3 mm within the bilateral lungs appear unchanged dating back to prior CT chest from May 2021 and are considered benign. Chest wall soft tissues show no acute abnormality. 1.5 cm lipoma within the left paraspinous musculature. No acute or aggressive osseous lesion given limitations of motion degraded exam. Previous cement augmentation of the L2 vertebral body. Remote left posterior rib fractures. CT abdomen pelvis was performed concurrently but reported separately. IMPRESSION: No acute posttraumatic findings within the chest given limitations of motion degraded exam. Finalized by Sandip Ball MD on 05/03/2025 5:52 PM Procedure Note Sandip Ball MD - 05/03/2025 CLINICAL INFORMATION: Fall. Pain. TECHNIQUE/PROCEDURE: CT chest without intravenous contrast. All CT scans at this facility use dose modulation, iterativereconstruction, and/or weight based dosing when appropriate to reduceradiation dose to as low as reasonably achievable. COMPARISON: CT low dose lung screening 06/13/2021. FINDINGS: Evaluation degraded by patient motion artifact. Visualized thyroid gland is unremarkable. Ascending thoracic aorta measures 4.3 cm in diameter. Heart size is withinnormal limits. No pericardial effusion. No significant coronary arterycalcifications. No discrete enlarged mediastinal lymph nodes by sizecriteria. Main pulmonary trunk size is within normal limits. Trachea and central airways show no acute abnormality. No pleural effusion. No discrete pneumothorax. No focal consolidation. Dependent atelectasis. Scattered pleural-based pulmonary nodules measuring 2-3 mm within thebilateral lungs appear unchanged dating back to prior CT chest fromMay 2021 and are considered benign. Chest wall soft tissues show no acute abnormality. 1.5 cm lipoma withinthe left paraspinous musculature. No acute or aggressive osseous lesion given limitations of motion degradedexam. Previous cement augmentation of the L2 vertebral body. Remote leftposterior rib fractures. CT abdomen pelvis was performed concurrently but reported separately. IMPRESSION: No acute posttraumatic findings within the chest given limitations ofmotion degraded exam. Finalized by Sandip Ball MD on 05/03/2025 5:52 PM Authorizing ProviderResult TypeResult StatusAlisa M Ortiz DOIMG CT ORDERABLES Final Result * Troponin I, High Sensitivity 1 Hour (05/03/2025 5:43 PM EDT)ComponentValueRef RangeTest MethodAnalysis TimePerformed AtPathologist SignatureTROPONIN I, HIGH SENSITIVITY4<21 ng/L05/03/2025 6:14 PM EDTPROMED[facility] Specimen (Source)Anatomical Location / LateralityCollection Method / Volume Collection TimeReceived TimeBloodVenous blood / UnknownVenipuncture / Unknown 05/03/2025 5:43 PM EDT05/03/2025 5:46 PM EDT Narrative Authorizing ProviderResult TypeResult StatusSury Ortiz DOLAB BLOOD ORDERABLESFinal ResultPerforming OrganizationAddressCity/State/ZIP CodePhone Number [facility] [address] [place] [address], * CT cervical spine without contrast (05/03/2025 5:39 PM EDT)Anatomical Region LateralityModalityMSK, Neuro, Spine, C-spine, Spine CoveraN/AComputed TomographySpecimen (Source)Anatomical Location / LateralityCollection Method / VolumeCollection TimeReceived Time05/03/2025 5:42 PM EDT Narrative 05/03/2025 5:[address] CERVICAL SPINE WO CONT CLINICAL INFORMATION: fall. COMPARISON: None. PROCEDURE: Routine cervical spine protocol CT was obtained without intravenous contrast. Sagittal and coronal reformatted images were obtained from the axial data. All CT scans at this facility use dose modulation, iterative reconstruction, and/or weight based dosing when appropriate to reduce radiation dose to as low as reasonably achievable. FINDINGS: No fracture. Incomplete fusion posterior elements C1. Endplate and facet degenerative changes are noted at multiple levels. No prevertebral soft tissue swelling. Please note, if ligamentous or spinal cord injury is of clinical concern, suggest MR imaging or flexion-extension radiographs. IMPRESSION: * ??No acute fracture. * ??Multilevel degenerative changes. Finalized by Aubrey Richards MD on 05/03/2025 5:43 PM Procedure Note Aubrey Richards MD - 05/03/2025 CT CERVICAL SPINE WO CONT CLINICAL INFORMATION: fall. COMPARISON: None. PROCEDURE: Routine cervical spine protocol CT was obtained without intravenouscontrast. Sagittal and coronal reformatted images were obtained from theaxial data. All CT scans at this facility use dose modulation, iterativereconstruction, and/or weight based dosing when appropriate to reduceradiation dose to as low as reasonably achievable. FINDINGS: No fracture. Incomplete fusion posterior elements C1. Endplate and facet degenerative changes are noted at multiple levels. No prevertebral softtissue swelling. Please note, if ligamentous or spinal cord injury is of clinical concern,suggest MR imaging or flexion-extension radiographs. IMPRESSION: * No acute fracture. * Multilevel degenerative changes. Finalized by Aubrey Richards MD on 05/03/2025 5:43 PM Authorizing ProviderResult TypeResult StatusSury Ortiz [facility] ORDERABLES Final Result * CT brain without contrast (05/03/2025 5:37 PM EDT)Anatomical RegionLaterality ModalityNeuro, Head, Head and Neck, Neuro CoveraN/AComputed TomographySpecimen (Source)Anatomical Location / LateralityCollection Method / VolumeCollection TimeReceived Time05/03/2025 5:37 PM EDT Narrative 05/03/2025 5:39 PM EDT HISTORY: A 64-year-old male with a history of fall. EXAM/TECHNIQUE: ??Multidetector spiral CT scan of brain is performed. ??Multiplanar reconstruction images are reformatted. All CT scans at this facility use dose modulation, iterative reconstruction, and/or weight based dosing when appropriate to reduce radiation dose to as low as reasonably achievable. COMPARISON: ??Comparison is made with the CT scan of the brain of 10/14/2023. FINDINGS: ??The ventricular system is normal in size and configuration. There is mild degree of generalized atrophy. There is a focal area of encephalomalacia in the left frontal lobe. This is a sequelae of the priortrauma, hemorrhage, infection or infarction. Vague hypodense regions are seen in the deep white matter supratentorially consistent with small vessels ischemic change. There is no evidence of intracranial hemorrhage or acute pathology. The cerebellum and brainstem are unremarkable. No mass effect, midline shift of the structures or extra-axial fluid collections are noted. The calvarium is intact. No fractures are seen. The visualized paranasal sinuses and mastoid air cells are clear. IMPRESSION: ?? * ??No evidence of intracranial hemorrhage or acute pathology. * ??Focal encephalomalacia in the left frontal lobe which is a sequelae of the prior trauma, hemorrhage, infection or infarction. * ??Small vessels ischemic change in the deep white matter supratentorially. Finalized by Phuc Faria MD on 05/03/2025 5:39 PM Procedure Note Phuc Faria MD - 05/03/2025 HISTORY: A 64-year-old male with a history of fall. EXAM/TECHNIQUE: Multidetector spiral CT scan of brain is performed.Multiplanar reconstruction images are reformatted. All CT scans at this facility use dose modulation, iterativereconstruction, and/or weight based dosing when appropriate to reduceradiation dose to as low as reasonably achievable. COMPARISON: Comparison is made with the CT scan of the brain of10/14/2023. FINDINGS: The ventricular system is normal in size and configuration.There is mild degree of generalized atrophy. There is a focal area of encephalomalacia in the left frontal lobe. Thisis a sequelae of the prior trauma, hemorrhage, infection or infarction.Vague hypodense regions are seen in the deep white matter supratentoriallyconsistent with small vessels ischemic change. There is no evidence of intracranial hemorrhage or acute pathology. The cerebellum and brainstem are unremarkable. No mass effect, midline shift of the structures or extra-axial fluidcollections are noted. The calvarium is intact. No fractures are seen. The visualized paranasal sinuses and mastoid air cells are clear. IMPRESSION: * No evidence of intracranial hemorrhage or acute pathology. * Focal encephalomalacia in the left frontal lobe which is a sequelae ofthe prior trauma, hemorrhage, infection or infarction. * Small vessels ischemic change in the deep white mattersupratentorially. Finalized by Phuc Faria MD on 05/03/2025 5:39 PM Authorizing ProviderResult TypeResult StatusAlisa Radha [facility] CT ORDERABLES Final Result * Troponin I, High Sensitivity 0 Hour (05/03/2025 4:40 PM EDT)ComponentValueRef RangeTest MethodAnalysis TimePerformed AtPathologist SignatureTROPONIN I, HIGH SENSITIVITY4<21 ng/L05/03/2025 5:50 PM [facility] Specimen (Source)Anatomical Location / LateralityCollection Method / Volume Collection TimeReceived TimeBloodVenous blood / UnknownVenipuncture / Unknown 05/03/2025 4:40 PM EDT05/03/2025 5:17 PM EDT Narrative Authorizing ProviderResult TypeResult StatusAlisa Radha HERNANDEZAB BLOOD ORDERABLESFinal ResultPerforming OrganizationAddressCity/State/ZIP CodePhone Number [address] [place] [address], [place] * Light Blue Top (05/03/2025 4:40 PM EDT)ComponentValueRef RangeTest Method Analysis TimePerformed AtPathologist SignatureExtra TubeAuto Resulted 05/03/2025 6:02 PM EDOHIOHEALTH [facility]BLIN [facility]ITALpecimen (Source) Anatomical Location / LateralityCollection Method / VolumeCollection Time Received TimeBloodVenous blood / Ndhnclm7905/03/2025 4:40 PM EDT05/03/2025 5:17 PM EDT Narrative Authorizing ProviderResult TypeResult StatusAlisa Radha FRIAS BLOOD ORDERABLESFinal ResultPerforming OrganizationAddressty/[facility]/ZIP CodePhone Number [address] [place] [address], [place] * CBC auto differential (05/03/2025 4:40 PM EDT)ComponentValueRef RangeTest MethodAnalysis TimePerformed AtPathologist SignatureWBC9.64 - 11 x10E9/L 05/03/2025 5:[address] CHARLES HOSPITALRBC Count5.154.1 - 5.7 X10E12/L05/03/2025 5:38 PM [facility] Ovqgucktjp33.213 - 17 g/dL05/03/2025 5:38 PM [facility]ITALHematocrit47.539 - 50 %05/03/2025 5:38 PM [facility]ITALMCV9280 - 100 fL09/ 5:[address] [facility] HOSPITALMCH31.527 - 34 pg05/03/2025 5:[address] [facility] HOSPITALMCHC34.232 - 36 g/dL05/03/2025 5:[address] CHAR[facility] HOSPITALRDW13.011.5 - 15 %05/03/2025 5:[address] CHARLES HOSPITALPlatelet Pqelj437861 - 450 X10E9/L05/03/2025 5:38 PM EDT [facility]MPV9.77 - 12 fL05/03/2025 5:38 PM EDT [facility]ITALNeutrophils %63.2%05/03/2025 5:38 PM EDT [facility]ITALLymphocytes %24.1%05/03/2025 5:38 PM EDT [facility] HOSPITALMonocytes %7.6%05/03/2025 5:38 PM EDT [facility] HOSPITALEosinophils %4.4%05/03/2025 5:38 PM EDT [facility]USBasophils %0.7%05/03/2025 5:38 PM EDT [facility]ITALNeutrophils Absolute (A)6.01.5 - 6.6 10*3/uL05/03/2025 5:[address] CHARLES HOSPITALLymphocytes Absolute2.31.0 - 3.5 10*3/uL05/03/2025 5:[address] CHARLES HOSPITALMonocytes Absolute0.70.0 - 0.9 10*3/uL05/03/2025 5:[address] CHARLES HOSPITALEosinophils Absolute0.40.0 - 0.4 10*3/uL05/03/2025 5:[address] CHARLES HOSPITALBasophils Absolute0.10.0 - 0.2 10*3/uL05/03/2025 5:[address] CHARLES HOSPITALDifferential TypeAUTOMATED SIUBWEOMMEFG50/17/2025 5:38 PM EDOHIOHEALTH DUBLIN METHODIST HOSPITALpecimen (Source)Anatomical Location / LateralityCollection Method / VolumeCollection TimeReceived TimeBloodVenous blood / UnknownVenipuncture / Kzbltsh1605/03/2025 4:40 PM EDT05/03/2025 5:17 PM EDT Narrative Authorizing ProviderResult TypeResult StatusSury FRIAS BLOOD ORDERABLESFinal ResultPerforming OrganizationAddressty/State/ZIP CodePhone Number [address] [address], [place] * (ABNORMAL) Lipase (05/03/2025 4:40 PM EDT)ComponentValueRef RangeTest Method Analysis TimePerformed AtPathologist GxtkpdemiHXCYWX77(H)17 - 40 U/L05/03/2025 5:40 PM EDAultman [facility] (Source)Anatomical Location / LateralityCollection Method / VolumeCollection TimeReceived Time BloodVenous blood / UnknownVenipuncture / Dxohdpj9805/03/2025 4:40 PM EDT 05/03/2025 5:17 PM EDT Narrative Authorizing ProviderResult TypeResult StatusSury FRIAS BLOOD ORDERABLESFinal ResultPerforming OrganizationAddressSelect [facility] CodePhone Number [address] [address], [place] * (ABNORMAL) Comprehensive metabolic panel (05/03/2025 4:40 PM EDT)Component ValueRef RangeTest MethodAnalysis TimePerformed AtPathologist SignatureSODIUM 040186 - 146 mmol/L05/03/2025 5:[address] [facility] POTASSIUM4.03.5 - 5.0 mmol/L05/03/2025 5:[address] CHARLES HOSPITALCHLORIDE10098 - 109 mmol/L05/03/2025 5:[address] CHARLES HOSPITALCARBON KXAZMIV3839 - 32 mmol/L05/03/2025 5:[address] CHARLES HOSPITALANION SWS003 - 15 mmol/L05/03/2025 5:42 PM EDT [facility]ESBLOOD UREA PWDZXBPU53(H)5 - 27 mg/dL 05/03/2025 5:42 PM [facility]ITALCREATININE1.110.70 - 1.20 mg/dL05/03/2025 5:42 PM [facility]ITALComment: METHOD TRACEABLE TO IDMS XEHDOFMICGJARKI039(H)65 - 99 mg/dL05/03/2025 5:42 PM [facility]ITALCALCIUM10.58.5 - 10.5 mg/dL05/03/2025 5:42 PM [facility]OSPITALTOTAL PROTEIN7.56.0 - 8.0 g/dL 05/03/2025 5:42 PM [facility]OSPITALALBUMIN3.53.2 - 5.3 g/dL05/03/2025 5:42 PM [facility]OSPITALALKALINE TZYHAGSITQA201(H)39 - 130 U/L05/03/2025 5:42 PM [facility]ITALAST32<=41 U/L05/03/2025 5:42 PM [facility] ALT61(H)<=40 U/L05/03/2025 5:42 PM [facility] BILIRUBIN,TOTAL0.60.3 - 1.2 mg/dL05/03/2025 5:42 PM [facility] HOSPITALEGFR Non-Race Qdrkthcgq82>=60 ml/min/1.73sq.m005/03/2025 5:42 PM [facility]ITALComment: eGFR not reported due to non-numeric value for Creatinine. Reported eGFR is based on the CKD-EPI 2020 equation that does not use a race coefficient. Specimen (Source)Anatomical Location / LateralityCollection Method / Volume Collection TimeReceived TimeBloodVenous blood / UnknownVenipuncture / Unknown 05/03/2025 4:40 PM EDT05/03/2025 5:17 PM EDT Narrative Authorizing ProviderResult TypeResult StatusAlisa M Ortiz DOLAB BLOOD ORDERABLESFinal ResultPerforming OrganizationAddressCity/State/ZIP CodePhone Number MALATHI [facility] [address] [place] [address], from Last 3 Months Insurance Advance Directives TypeDate RecordedPatient RepresentativeExplanationAdvance Directive05/04/2025 1:17 AMDNR Physician Order03/29/2024 1:53 PMAdvance Directive03/08/2024 8:49 PM Avanced Directive 03-08-24 * Full Code (Latest Code Status on File) Date ActivatedDate InactivatedComments10/15/2023 9:17 AM10/19/2023 6:39 PM * Full Code Date ActivatedDate InactivatedComments11/10/2022 1:16 AM4 2:20 PM * Full Code Date ActivatedDate InactivatedComments10/23/2022 9:24 PM10/30/2022 7:58 PM Care Teams Team MemberRelationshipSpecialtyStart DateEnd Date Daniel Oswald MD [address] [place] [address] PCP - GeneralInternal Medicine10/14/23
--- OUTSIDE RECORDS SUMMARY | 2025-06-08 12:07 | XMS_ITS ---
Author Organization [facility] Trivedi Care Team Providers Care Raker Buffing Wheel Name Role Phone Julius Gan Unavailable Unavailable Care Team Name Role Address Phone Organization Dates Julius Gan [address] [place] [address], [place], [address], [place] (Office): : [facility] T[facility]edi 11/21/2022 - 11/22/2022 Mental Status Section Date Assessment Total Score Description 11/22/2022 CAM 0 No delirium ind icated Insurance Providers Problems Problem # Description Date of onset Resolved Date Code CodeSystem Concern Status 1 ANXIETY DISORDER, UNSPECIFIED 11/21/[address] active 2 CHRONIC OBSTRUCTIVE PULMONARY DISEASE, UNSPECIFIED 11/21/[address] active 3 ESSENTIAL (PRIMARY) HYPERTENSION 11/21/[address] active 4 MIXED HYPERLIPIDEMIA 11/21/[address] active 5 NICOTINE DEPENDENCE, UNSPECIFIED, UNCOMPLICATED 11/21/[address] active 6 NONTRAUMATIC SUBDURAL HEMORRHAGE, UNSPECIFIED 11/21/[address] active 7 TYPE 2 DIABETES MELLITUS WITH DIABETIC AUTONOMIC (POLY)NEUROPATHY 11/21/[address] active Reason for Referral No Reasons for Referral Entered Social History Social History Observation Description Start Date End Date Code Code System Current Smoking Status Tobacco smoking consumption unknown 183795106 SNOMED CT Sex Assigned At Male 1960 04712-9 LOINC Gender Identity Male 66855717320565 [address] Sexual Orientation Heterosexual (finding) 96012957 SNOMED CT Vital Signs Code Code System Vitals Name Values and Units Timing Information 2339-0 LOINC Blood Sugar Rnvis=513.0 Units=mg/dL 11/22/2022 22775-1 [facility] Pain Level Value=0.0 11/22/2022 9279-1 [facility] Respiratory Rate Value=20.0 Units=/m in 11/22/2022 8462-4 [facility] Blood Pressure-Diastolic Value=94 Un its=mmHg 11/22/2022 8480-6 [facility] Blood Pressure-Systolic Dngtz=842 Un its=mmHg 11/22/2022 8310-5 [facility] Body Temperature Value=95.5 Units= F 11/22/2022 8867-4 [facility] Heart rate Value=83.0 Units=/min 03/2023 83484-2 [facility] O2 % BldC Oximetry Value=96.0 Units= % 11/22/2022 61226-6 [facility] Weight Glfwl=162.4 Units=Lbs 02/2023 8302-2 [facility] Height Value=69.0 Units=Inches 11/21/2022
--- OUTSIDE RECORDS SUMMARY | 2025-06-08 12:07 | XMS_ITS | Clinical Summary ---
Author Organization [facility] Address [address] [place] [address] Care Team Providers Care Mild Disabilities Teacher Name Role Phone Unallocated, Noms Provider Primary Care Provi mathew Medications MedicationSigDispense QuantityRefillsLast FilledStart DateEnd DateStatus Spiriva Respimat 2.5 MCG/ACT inhaler Indications:Chronic obstructive pulmonary disease, unspecified (HCC)INHALE 2 PUFFS BY MOUTH DAILY 4 g 09/15/2023ctive glipiZIDE (Glucotrol) 10 MG tablet Indications:Type 2 diabetes mellitus with diabetic polyneuropathy (HCC)TAKE 1 TABLET BY MOUTH DAILY 90 tablet 09/15/2023ctive metoprolol tartrate (Lopressor) 25 MG tablet Indications:Essential (primary) hypertensionTAKE 1 TABLET BY MOUTH TWICE DAILY 180 tablet 09/15/2023ctive Family History Medical HistoryRelationNameCommentsArthritisMotherCancerMotherRelationNameStatus CommentsFatherDeceasedMotherDeceasedSiblingAlive Social History Tobacco UseTypesPacks/DayYears UsedDateSmoking Tobacco: Every DayCigarettes Tobacco Cessation:Ready to Q uit: Not Asked; Counseling Given: Not Answered Comments:21-30 cigs a day. Alcohol UseStandard Drinks/WeekCommentsNever0 (1 standard drink = 0.6 oz pure alcohol)Sex and Gender InformationValueDate RecordedSex Assigned at BirthNot on fileLegal GnfTduf1310/29/2022 7:47 PM EDTGender IdentityNot on fileSexual OrientationNot on file Last Filed Vital Signs Vital SignReadingTime TakenCommentsBlood Zqqihqvy117/7908 12:00 PM EDT Pulse--Temperature--Respiratory Rate--Oxygen Saturation--Inhaled Oxygen Concentration--Ypsdxa79.9 kg (149 lb 11.2 oz)04/03/2022 12:00 PM KFYKwmptd708.3 cm (5' 11 )04/03/2022 12:00 PM EDTBody Mass Index20.8804/03/2022 12:00 PM EDT Plan of Treatment Health MaintenanceDue DateLast DoneCommentsCT Anhpgwydfcpj31/19/1961Colonoscopy 1960FIT-DNA1960FIT1960 4692Pwsiokmuwzrpr89/19/1961iabetes: Retinopathy Ojwsgjunt55/19/1971Diabetes: Urine Protein Msfmpgrbr27/19/1980 Colorectal Cancer Rdjeksqrg93/29/5089YALG17Diabetes: Hemoglobin A1C/06/2023Influenza Vaccine (#1), 05/29/2021, 07/30/2020, Additional history exists Insurance * Guarantor: Akbar Byrnes TypeRelation to PatientDate of PhoneBilling AddressPersonal/XrkdedSfne78/19/1961 [address] [address] [address] [place] [address] Care Teams Team MemberRelationshipSpecialtyStart DateEnd Date Unallocated, Noms Provider, [address] [place], [place] [id number] PCP - GeneralFamily Medicine10/20/23
--- OUTSIDE RECORDS SUMMARY | 2025-06-08 12:07 | XMS_ITS ---
Author Organization [facility] Care Team Providers Care Fretted String Instrument Repairer Name Role Phone Shilpa Fong Unavailable Unavailable Bobby Rosales Unavailable Unavailable Robert Mccurdy Unavailable Unavailable Ivet Thomas Unavailable Unavailangelito Seals DUPLICATION SPECIALIST, Sparkle Peña Unavailable Unavailable Bakies, Tatyana Unavailable Unavailable Norman Alejo Unavailable Unavailable Marti DUPLICATION SPECIALIST-CStephanie Unavailable Unavailable Allergies and adverse reactions No Known Allergies Care Team Name Role Address Phone Organization Dates Robert Mccurdy [address], [address], [place] (Office): : [facility] 09/05/2023 - 10/01/2023 Shilpa Fong [address] [place] [address], [address], [place] (Office): [facility] 09/05/2023 - 10/01/2023 Bobby Rosales [address] [place] [address], [address], [place] (Office): : : [facility] 09/05/2023 - 10/01/2023 Ivet Thomas [address] [place], [address], [place] (Cell): [facility] 09/05/2023 - 10/01/2023 Sparkle Seals DUPLICATION SPECIALIST [address] [place], [address], [facility] (Office): : : [facility] 09/05/2023 - 10/01/2023 Tatyana Crowder [place], [place] (Cell): [facility] 09/05/2023 - 10/01/2023 Norman Alejo [address] [place] [address], [address], [facility] (Office): : [facility] 09/05/2023 - 10/01/2023 Stephanie Kidd DUPLICATION SPECIALIST-C [address], [address], [place] (Cell): : : [facility] 09/05/2023 - 10/01/2023 Immunizations Immunization Status Vaccine Details Vaccine Code CodeSystem Date Notes Influenza completed Influenza, high-dose, split virus, quadrivalent, injectable, preservative free lotNumber: [id number] expiry: 02/10/2024 Mfg: sequiris Given 0.5 ml intramuscularly 197 CVX created date: 09/30/2023 consent date: 09/30/2023 administer ed date: 09/30/2023 Educated by Nayely Altamirano RN on 09/30/2023 Insurance Providers Problems Problem # Description Date of onset Resolved Date Code CodeSystem Concern Status 1 BENIGN PROSTATIC HYPERPLASIA WITHOUT LOWER URINARY TRACT SYMPTOMS 09/05/[address] active 2 EMPHYSEMA, UNSPECIFIED 09/05/[address] active 3 ESSENTIAL (PRIMARY) HYPERTENSION 09/05/[address] active 4 HYPERLIPIDEMIA, UNSPECIFIED 09/05/[address] active 5 FCI (CURRENT) USE OF INSULIN 09/05/[address] active 6 MAJOR DEPRESSIVE DISORDER, RECURRENT SEVERE WITHOUT PSYCHOTIC FEATURES 09/05/[address] active 7 TYPE 2 DIABETES MELLITUS WITH DIABETIC NEUROPATHY, UNSPECIFIED 09/05/[address] active Reason for Referral No Reasons for Referral Entered Social History Social History Observation Description Start Date End Date Code Code System Current Smoking Status Tobacco smoking consumption unknown 257940669 SNOMED CT Sex Assigned At Male 1960 [address]791-5 [facility] Gender Identity Sexual Orientation Vital Signs Code Code System Vitals Name Values and Units Timing Information 8462-4 [facility] Blood Pressure-Diastolic Miqlr=794 U nits=mmHg 09/30/2023 8480-6 [facility] Blood Pressure-Systolic Htwyd=211 Un its=mmHg 09/30/2023 9279-1 [facility] Respiratory Rate Value=20.0 Units=/m in 09/30/2023 8310-5 [facility] Body Temperature Value=97.3 Units= F 09/30/2023 8867-4 [facility] Heart rate Value=67.0 Units=/min 19969-4 [facility] O2 % BldC Oximetry Value=93.0 Units= % 09/30/2023 34594-8 [facility] Pain Level Value=0.0 09/30/2023 2339-0 [facility] Blood Sugar Ushhz=514.0 Units=mg/dL 09/30/2023 24699-2 [facility] Weight Kpccp=470.1 Units=Lbs 07/2024 8302-2 [facility] Height Value=70.0 Units=Inches 09/05/2023
--- OUTSIDE RECORDS SUMMARY | 2025-06-08 12:09 | XMS_ITS | CCD ---
Author Organization [facility] Inform ion [facility] Care Team Providers Care Stereo Compiler Name Role Phone PROVIDER, UNKNOWN Attending Unavailable PROVIDER, UNKNOWN Admitting Unavailable PAY ., DR OVERTON Consulting Unavailable PAY ., DR OVERTON Attending Unavailable PAY ., DR OVERTON Admitting Unavailable FAWWAD, VOSS H Primary Care Unavailable CHRISTIANO TATE Consulting Unavailable TARIK GARZA Consulting Unavailable MALLORY, DR SOPHIE Hunter Consulting Unavailable BELINDA BERNSTEIN Attending Unavailable DAY BELINDA Marco Antonio Admitting Unavailable FAWWAD, VOSS H Primary Care Unavailable BELINDA BERNSTEIN Consulting Unavailable TARA MASON Consulting Unavailable PREMA ., DR JOHNSON Consulting Unavailable PREMA ., DR JOHNSON Attending Unavailable HAY ., DR JOHNSON Admitting Unavailable FAWWAD, VOSS H Primary Care Unavailable SOPHIE NICK Consulting Unavailable BORA MCDANIEL Consulting Unavailable DANIS GARCIA Consulting Unavailable DUGLAS, DR DEO Conroy Consulting UnavailCHRISTIANO Kerns Attending Unavailable CHRISTIANO TATE Admitting Unavailable FAWWAD, VOSS H Primary Care Unavailable CHRISTIANO TATE Consulting Unavailable MAIRA LEDEZMA Consulting Unavailable DR BHAVYA NOLASCO Consulting Unavailable CONSTANCE, DR BHAVYA Magaña Attending Unavailable DR BHAVYA NOLASCO Admitting Unavailable FAWWAD, VOSS H Primary Care Unavailable PREMA Song, DR JOHNSON Consulting Unavailable MAIRA LEDEZMA Consulting Unavailable FAWWAD, VOSS H Primary Care Unavailable JOSÉ FINCH Attending Unavailable JOSÉ FINCH Admitting Unavailable DR FELIX ACHARYA V Consulting Unavailable FAWWAD, VOSS H Primary Care Unavailable FAWWAD, VOSS H Attending Unavailable FAWWAD, VOSS H Admitting Unavailable FAWWAD, VOSS H Consulting Unavailable TRICIA, IVON Consulting Unavailable FAWWAD, VOSS H Primary Care Unavailable TRICIAHUGOLY Attending Unavailable TRICIA, IVON Admitting Unavailable FAWWAD, VOSS H Primary Care [...] Unavailable FAWWAD, VOSS H Primary Care Unavailable CLACKAMAS, DR FELIX Garcia Consulting Unavailable ZIEBER, DR SOPHIE Hunter Consulting Unavailable NADERER, DR BHAVYA Magaña Consulting Unavailable HUANG ., BORA Consulting Unavailable FAWWAD, VOSS H Consulting Unavailable GOMEZ, BANDAR Consulting Unavailable PREMA ., DR JOHNSON Attending Unavailable HAY ., DR JOHNSON Admitting Unavailable SELENE .DOMONIQUE Consulting Unavailabl e FAWWAD, VOSS H Primary Care Unavailable HAY ., DR JOHNSON Consulting Unavailable CLARE COY Consulting Unavailable Unlu, Lashaun Consulting Unavailable MD Julius Saldaña Jr Emergency Provider NON STAFF Primary Care Provider UnavailDO Devin Aleman Admit Provider DO Devin Starks Attending Provider [phone] Unavailable Primary Care Provider UnavailBlue Thrasher MDikh Primary Care Provider BECKIE HERNANDEZ Referring Unavailable BECKIE HERNANDEZ Referring Unavailable LUNA CARROLL Attending Unavailable LA STEEL Referring Unavailable NON STAFF Primary Care Provider Unavailmichael Madrid MD, Olya Sanon Attending Provider HONEY, REHAB Attending Unavailable OSWALD, ROWDY Referring Unavailable OSWALD, ROWDY Primary Care Unavailable BETSY RIAHETA Attending Unavailable OSWALD, ROWDY Referring Unavailable OSWALD, ROWDY Primary Care Unavailable HONEY, REHAB Attending Unavailable OSWALD, ROWDY Referring Unavailable OSWALD, ROWDY Primary Care Unavailable HONEY, REHAB Attending Unavailable OSWALD, ROWDY Referring Unavailable OSWALD, ROWDY Primary Care Unavailable ANNMARIE GRAF Attending Unavailabl e HONEY, REHAB Referring Unavailable OSWALD, ROWDY Primary Care Unavailable Jian MELENDEZ, [facility] Primary Care Provider [phone] Margret MELENDEZ, [facility] Primary Care Provider [phone] NON STAFF Primary Care Provider Unavailmichael Madrid MD, Olya Sanon Attending Provider Olya Madrid Attending Unavail able NON STAFF Primary Care Unavailable Olya Madrid Admitting Unavail able Olya Madrid Attending Unavail able Olya Madrid Admitting Unavail able NON STAFF Primary Care Unavailable NON STAFF Primary Care Unavailable Olya Madrid Attending Unavail able Olya Madrid Admitting Unavail able Olya Madrid Attending Unavail able Olya Madrid Admitting Unavail able NON STAFF Primary Care Unavailable Olya Madrid Attending Unavail able Olya Madrid Admitting Unavail able NON STAFF Primary Care Unavailable OSWALD, ROWDY Primary Care Unavailable FANNY MCCLAIN Attending Unavailable OSWALD, ROWDY Primary Care Unavailable OSWALD, ROWDY Primary Care Unavailable MARYELLEN MUSTAFA Attending Unavailable FANNY MCCLAIN Referring Unavailable OSWALD, ROWDY Primary Care Unavailable OSWALD, ROWDY Primary Care Unavailable KARIN SEGUNDO Referring Unavailable OSWALD, ROWDY Primary Care Unavailable OSWALD, ROWDY Referring Unavailable Medications Current Medications MedicationDrug Class(es)DatesSig (Normalized)Sig (Original)acetaminophen 325 mg oral tablet (20 sources)Start: 08-97-8739hcbf 2 tablets by mouth every six hours as needed for painAcetaminophen (Tylenol) 325 mg tablet Active 650 MG PO Every 6 hours as needed for pain June 23, 2024 1:00amStart: 10-15-2023 End: 80-11-9111puvu 1 tablet by mouth every four hours as needed for fever and pain and headacheacetaminophen (TYLENOL) tablet 650 mgStart: 03-09-2023 End: 57-63-5703gpfd 2 tablets by mouth every six hours as needed for pain Acetaminophen 500 mg Tablet Discontinued 1000 MG PO Q6H as needed for Fever Or Pain 0 March 09, 2023 12:00am June 23, 2024 2:[id number] 200 actuat albuterol 0.09 mg/actuat metered dose inhaler (18 sources)beta2-Adrenergic AgonistStart: 07-53-8547dvlx 2 puff(s) by inhalation every four hours as needed for wheezingAlbuterol Sulfate 90 mcg/actuation HFA aerosol inhaler Active 2 INH INHALATION EVERY 4-6 HOURS as ne eded for shortness of breath or wheezing June 23, 2024 1:00am FreeTextSig: INHALE 2 (TWO) puffs EVERY 4 HOURS NEEDED for FOR WHEEZING or shortness of breath (RN to contact RT for initial instruction of spacer) Inhalation; Note: Source Status: Taking; Refills: 6; Qty: 18 g; Provider: Matthew Armstrongtart: 15-25-7074vmtxzivbe (PROVENTIL HFA;VENTOLIN HFA) 90 mcg/actuation inhaler 03/18/2024 ActiveStart: 02-14-2020 End: 31-24-6601Tmknvloee Sulfate 90 mcg/actuation HFA aerosol inhaler Discontinued 90 MCG INHALATION Four times daily as needed for Shortness Of Breath February 14, 2020 12:00am March 09, 2023 1:24pmamLODIPine 2.5 mg oral tablet (12 sources)Dihydropyridine Calcium Channel BlockerStart: 99-59-3827eyod 1 tablet by mouth once daily at bedtimeAmlodipine 2.5 mg tablet Active 2.5 MG PO Daily at bedtime June 23, 2024 1:00amStart: 02-14-2020 End: 42-15-4355erkh 1 tablet by mouth once dailyAmlodipine 10 mg tablet Discontinued 10 MG PO Daily February 14, 2020 12:00am June 23, 2024 2:14pm arformoterol 0.0075 mg/ml inhalation solution (5 sources)beta2-Adrenergic AgonistStart: 57-80-1025wojz 2 mL by inhalation in the morningarformoteroL (BROVANA) 15 mcg/2 mL solution for nebulization Indications: Chronic obstructive pulmonary disease, unspecified COPD type ([facility]) Inhale 2 mL (15 mcg total) by nebulization in the morning and 2 mL (15 mcg total) before bedtime. 120 mL 11 05/12/2024 ActiveArtificial Tears Solution drops (2 sources)Start: 13-76-4186oimp 1 drop(s) into the eye(s) every six hours as neededArtificial Tears Solution drops Active 1 DROPS OPHTHALMIC Every 6 hours as needed for dry eyes December 22, 2024 12:00amaspirin 81 mg delayed release oral tablet (20 sources)Platelet Aggregation Inhibitor, Nonsteroidal Anti-inflammatory Drug Start: 02-14-2020 End: 68-19-3494tvxn 1 tablet by mouth once daily in the morningAspirin 81 mg tablet,delayed release (DR/EC) Active 81 MG PO Every morning February 14, 2020 12:00ambisacodyl 10 mg rectal suppository (17 sources)Stimulant LaxativeStart: 08-04-2024 End: 16-77-0934Zjywwgeoh (Dulcolax (Bisacodyl)) 10 mg suppository Active 10 MG MN Daily as needed for constipationMa2024 12:00amStart: 10-15-2023 End: 13-38-277681 mg, rectal, As needed, constipation, Starting on Mere 10/15/23 at 0229, Look-alike/sound-alike medication - verify indication for use.bisacodyL (DULCOLAX, BISACODYL,) 10 mg suppository Insert 1 suppository (10 mg total) into the rectum as needed for constipation. Every 24 hours PRN ActiveclonazePAM 0.5 mg oral tablet (18 sources)BenzodiazepineStart: 99-86-9695trzv 1 tablet by mouth twice daily as needed for anxietyClonazepam 0.5 mg tablet Active 0.5 MG PO Twice daily as needed for anxiety June 23, 2024 1:00amStart: 10-18-2023 End: 46-95-3790fplm 0.5 mg by mouth twice daily0.5 mg, oral, 2 times daily, First dose on 10/18/23 at 2345, Look-alike/sound-alike medication - verify indication for use.take 2 tablets by mouth twice daily as neededclonazePAM (KLONOPIN) 0.5 MG tablet Take 1 tablet by mouth 2 times daily as needed for Anxiety. MaxDaily Amount: 1 mg 0 Activedapagliflozin 5 mg oral tablet (2 sources)Sodium-Glucose Cotransporter 2 InhibitorStart: 84-34-2022krxe 1 tablet by mouth once daily in the morningDapagliflozin Propanediol 5 mg tablet Active 5 MG PO Every morning December 22, 2024 12:00amescitalopram 5 mg oral tablet (20 sources)Serotonin Reuptake InhibitorStart: 93-56-1718jwlk 2 tablets by mouth once daily in the morningEscitalopram Oxalate 5 mg tablet Active 10 MG PO Every morning June 23, 2024 1:00amStart: 14-10-9848sfus 1 tablet by mouth once daily in the morningEscitalopram Oxalate 5 mg tablet Active 5 MG PO Every morning June 23, 2024 12:00amStart: 10-16-2023 End: 97-77-3437bulmjawpscqp (LEXAPRO) tablet 5 mgStart: 02-04-2021 End: 87-65-3865cuqr 1 tablet by mouth once dailyescitalopram (LEXAPRO) 20 mg tablet Indications: Anxiety Take 1 tablet (20 mg total) by mouth daily. 30 tablet 2 02/04/2021 10/15/2023 DiscontinuedStart: 02-14-2020 End: 43-53-5912cjpf 1 tablet by mouth once dailyEscitalopram Oxalate 10 mg tablet Discontinued 10 MG PO Daily February 14, 2020 12:00am June 2:22pmStart: 02-14-2020 End: 25-62-3768hgiq 1 tablet by mouth once dailyEscitalopram Oxalate 20 mg tablet Discontinued 20 MG PO Daily February 14, 2020 12:00am February 14, 2020 12:41amFluticasone Propion-Salmeterol (2 sources)Corticosteroid, beta2-Adrenergic AgonistStart: 85-44-6972Tfgqoyfruio Propion-Salmeterol (Advair Diskus) 250-50 mcg/dose blister with device Active 1 INH INHALATION Twice daily December 22, 2024 12:00amFREESTYLE ALYSHA 2 READER misc (1 source)Start: 76-23-7003LGKKRWYVR ALYSHA 2 READER misc 05/19/2024 Active FREESTYLE ALYSHA 2 SENSOR kit (1 source)Start: 51-71-3925YHJGHAXOT ALYSHA 2 SENSOR kit 06/23/2024 Active gabapentin 100 mg oral capsule (13 sources)Anti-epileptic AgentStart: 13-45-3199tdde 2 capsules by mouth three times dailyGabapentin 100 mg capsule Active 200 MG PO Three times daily June 23, 2024 1:00amStart: 22-78-5976pbgtigfbig (NEURONTIN) 100 mg capsule 02/29/2024 ActiveglipiZIDE 10 mg oral tablet (20 sources)SulfonylureaStart: 82-75-4047iufj 1 tablet by mouth once daily in the morningGlipizide 10 mg tablet Active 10 MG PO Every morning June 23, 2024 1:00amStart: 76-80-3971tbig 1 tablet by mouth once dailyglipiZIDE (Glucotrol) 10 MG tablet Indications: Type 2 diabetes mellitus with diabetic polyneuropathy (HCC) (CMS/HCC) TAKE 1 TABLET BY MOUTH DAILY 90 tablet 0 09/15/2023 Activetake 1 tablet by mouth every twenty-four hours in the morning glipiZIDE (GLUCOTROL XL) 10 mg 24 hr tablet Take 1 tablet (10 mg total) by mouth in the morning. Activetake 1 tablet by mouth once dailyglipiZIDE (GLUCOTROL XL) 10 MG extended release tablet Take 1 tablet by mouth daily 0 ActiveguaiFENesin 20 mg/ml oral solution (2 sources)Start: 49-44-9139kojg 200 mg by mouth every four hours as needed for congestionGuaifenesin (Chest Congestion Relief) 100 mg/5 mL liquid Active 200 MG PO Every 4 hours as needed for congestion December 22, 2024 12:00am hydroCHLOROthiazide 25 mg oral tablet (13 sources)Thiazide DiureticStart: 16-77-1303ggko 1 tablet by mouth once daily in the morningHydrochlorothiazide 25 mg tablet Active 25 MG PO Every morning June 23, 2024 1:00amhydrOXYzine hydrochloride 25 mg oral tablet (20 sources)AntihistamineStart: 38-36-2588mvom 1 tablet by mouth three times daily as neededHydroxyzine Hcl 25 mg tablet Active 25 MG PO Three times daily as needed for itching June 23, 2024 1:00amStart: 10-18-2023 End: 76-24-4656naib 1 tablet by mouth three times daily as neededHydroxyzine Hcl 25 mg tablet Active 25 MG PO Three times daily as needed for itching June 23, 2024 12:00am End: 84-21-2625gddr 1 tablet by mouth every eight hours as neededhydrOXYzine (ATARAX) 50 mg tablet Take 1 tablet (50 mg total) by mouth every 8 (eight) hours as needed. 0 10/15/2023 Discontinuedtake 0.5 tablet by mouth once daily hydrOXYzine HCl (ATARAX) 50 MG tablet Take 0.5 tablets by mouth daily 0 Active Insulin Aspart U-100 (Novolog Flexpen U-100 Insulin) 100 unit/mL (3 mL) Insulin Pen (12 sources)Start: 83-81-7751ebprrm 3 [IU] by subcutaneous injection once daily Insulin Aspart U-100 (Novolog Flexpen U-100 Insulin) 100 unit/mL (3 mL) Insulin Pen Active 3 UNIT SUBCUT Daily June 23, 2024 1:00amStart: 82-14-9692vnlbea 1 dose by subcutaneous injection once at mealtimeInsulin Aspart U-100 (Novolog Flexpen U-100 Insulin) 100 unit/mL (3 mL) Insulin Pen Active 1 sliding scale dose SUBCUT 3X/Day with meals and bedtime June 23, 2024 12:00amStart: 03-09-2023 End: 41-68-7638Mzeairb Aspart U-100 (Novolog Flexpen U-100 Insulin) 100 unit/mL (3 mL) Insulin Pen Discontinued 12UNITS SUBCUT 3x/Day with meals 0 March 09, 2023 12:00am June 23, 2024 2:31pmStart: 03-09-2023 End: 65-97-2692Adrygcn Aspart U-100 (Novolog Flexpen U-100 Insulin) 100 unit/mL (3 mL) Insulin Pen Discontinued 0 UNITS SUBCUT 3X/Day with meals and bedtime 0 March 09, 2023 12:00am June 23, 2024 2:39pmStart: 03-09-2023 End: 22-23-4440Tqmolgo Aspart U-100 (Novolog Flexpen U-100 Insulin) 100 unit/mL (3 mL) Insulin Pen Discontinued 12UNITS SUBCUT 3x/Day with meals 0 March 08, 2023 11:00pm June 23, 2024 1:31pmStart: 03-09-2023 End: 66-22-6579Ordclrl Aspart U-100 (Novolog Flexpen U-100 Insulin) 100 unit/mL (3 mL) Insulin Pen Discontinued 0 UNITS SUBCUT 3X/Day with meals and bedtime 0 March 08, 2023 11:00pm June 23, 2024 1:39pm3 ml insulin aspart, human 100 unt/ml pen injector (11 sources)Insulin Analoginsulin aspart U-100 (NovoLOG Flexpen U-100 Insulin) 100 unit/mL (3 mL) insulin pen Inject under the skin. Activeinsulin aspart (NOVOLOG FLEXPEN) 100 UNIT/ML injection pen Inject into the skin 3 times daily (before meals) 0 Active3 ml insulin degludec 100 unt/ml pen injector (3 sources)Insulin AnalogStart: 59-52-7721Strcokd Degludec (Tresiba Flextouch U- 100) 100 unit/mL (3 mL) insulin pen Active 80 UNIT SUBCUT Daily February 14, 2020 12:00am End: 78-89-7771pgwvbqj degludec (TRESIBA FLEXTOUCH U-100) 100 unit/mL (3 mL) insulin pen Inject 80 Units under theskin in the morning. 0 10/15/2023 Discontinued3 ml insulin glargine 100 unt/ml pen injector (16 sources)Insulin AnalogStart: 37-40-2617qewaac 30 [IU] by subcutaneous injection once daily in the morningInsulin Glargine 100 unit/mL (3 mL) insulin pen Active 30 UNIT SUBCUT Every morning June 23, 2024 1:00amStart: 15-88-6056Frbpjxg Glargine (Lantus Solostar U-100 Insulin) 100 unit/mL (3 mL) Insulin Pen Active 20 UNIT SUBCUT Daily at bedtime June 23, 2024 1:00am Start: 16-76-9534Sbefpus Glargine (Lantus Solostar U-100 Insulin) 100 unit/mL (3 mL) Insulin Pen Active 25 UNIT SUBCUT Daily at bedtime June 23, 2024 12:00amStart: 03-09-2023 End: 38-84-1409Oztoqkl Glargine (Lantus Solostar U-100 Insulin) 100 unit/mL (3 mL) Insulin Pen Discontinued 50 UNITS SUBCUT Daily at bedtime 0 March 09, 2023 12:00am June 23, 2024 2:39pmStart: 49-88-0831Wgfipwc Glargine w/ Trans Port 100 UNIT/ML SOPN Inject 40 Units into the skin 2 times daily 0 10/30/2022 ActiveStart: 10-30-2022 End: 99-89-1598vxeyzt 30 [IU] by subcutaneous injection in the morninginsulin glargine (LANTUS, BASAGLAR) 100 unit/mL (3 mL) insulin pen Inject 30 Units under the skin in the morning and 30 Units before bedtime. 15 mL 12 10/30/2022 10/15/2023 Discontinuedloperamide hydrochloride 2 mg oral tablet (4 sources)Opioid AgonistStart: 38-31-7040euqp 1 tablet by mouth every six hours as neededLoperamide 2 mg tablet Active 2 MG PO Every 6 hours as needed for loose stool June 23, 2024 1:00amlosartan potassium 25 mg oral tablet (4 sources)Angiotensin 2 Receptor BlockerStart: 47-41-1066qoal 2 tablets by mouth once daily at bedtimeLosartan 25 mg tablet Active 50 MG PO Daily at bedtime June 23, 2024 1:00amStart: 93-61-9615elex 1 tablet by mouth once daily at bedtimeLosartan 25 mg tablet Active 25 MG PO Daily at bedtime June 23, 2024 12:00ammetFORMIN hydrochloride 500 mg oral tablet (13 sources)BiguanideStart: 83-33-3259wkgt 1 tablet by mouth once daily at bedtimeMetformin 500 mg tablet Active 500 MG PO Daily at bedtime June 23, 2024 1:00amofloxacin 3 mg/ml ophthalmic solution (1 source)Quinolone AntimicrobialStart: 97-39-3956lletcgtzv (OCUFLOX) 0.3 % ophthalmic solution 07/04/2024 ActiveOLANZapine 5 mg oral tablet (13 sources)Atypical AntipsychoticStart: 10-16-2023 End: 17-92-2439eool 1 tablet by mouth once dailyOLANZapine (ZyPREXA) 5 mg tablet Take 1 tablet (5 mg total) by mouth nightly. 10/19/2023 ActiveStart: 10-15-2023 End: 23-18-9206IOGTMbjaek (ZyPREXA) injection 5 mgprednisoLONE acetate 10 mg/ml ophthalmic suspension (1 source)CorticosteroidStart: 43-04-7319kcczgynxVQIR acetate (PRED FORTE) 1 % ophthalmic suspension 07/04/2024 ActiveSaliva Substitute Combo No.9 (Biotene Dry Mouth Oral Rinse) mouthwash (2 sources)Start: 71-09-3343Xkoseu Substitute Combo No.9 (Biotene Dry Mouth Oral Rinse) mouthwash Active 15 ML MUCOUS MEM 1 to 2 times per day as needed for dry mouth December 22, 2024 12:00am swish for 15-30 secs , then spit out; do not swallowsimethicone 80 mg chewable tablet (15 sources)Start: 10-83-3663Zlkxviksogs (Gas Relief 80 (Simethicone)) 80 mg tablet,chewable Active 80 MG PO Three times daily as needed for abdominal distention June 23, 2024 1:00am after mealstake 1 tablet by mouth every eight hours as neededsimethicone (MYLICON) 80 mg chewable tablet Chew 1 tablet (80 mg total) and swallow every 8 (eight)hours as needed for flatulence. Active spironolactone 25 mg oral tablet (15 sources)Aldosterone AntagonistStart: 06-23-2024 End: 84-25-7289Zarpajxqqkckgc (Aldactone) 25 mg tablet Active 12.5 MG PO Every morning December 22, 2024 12:00amStart: 20-99-5404vpequlvbcowyrc (ALDACTONE) 25 mg tablet 03/18/2024 Fiwswj78 actuat tiotropium 0.0025 mg/actuat inhalation spray (20 sources)AnticholinergicStart: 92-66-5513nhhz 2.5 ug by inhalation once daily in the morningTiotropium [place] (Spiriva Respimat) 2.5 mcg/actuation mist Active 2 INH INHALATION Every morning June 23, 2024 1:00amStart: 09-15-2023 take 2 puff(s) by mouth once dailySpiriva Respimat 2.5 MCG/ACT inhaler Indications: Chronic obstructive pulmonary disease, unspecified (CMS/HCC) INHALE 2 PUFFS BY MOUTH DAILY 4 g 0 09/15/2023 ActiveStart: 02-14-2020 End: 11-92-8548dwjq 1 puff(s) by inhalation once dailyTiotropium [place] (Spiriva Respimat) 2.5 mcg/actuation mist Discontinued 2 PUFF INHALATION Daily February 14, 2020 12:00am June 23, 2024 2:25pmtake 2 puff(s) by inhalation in the morningtiotropium bromide (SPIRIVA RESPIMAT) 2.5 mcg/actuation mist Inhale 2 puffs in the morning. Activetake 2 puff(s) by inhalation once dailytiotropium (SPIRIVA RESPIMAT) 2.5 MCG/ACT AERS inhaler Inhale 2 puffs into the lungs daily 0 ActivetraZODone hydrochloride 100 mg oral tablet (17 sources)Serotonin Reuptake InhibitorStart: 08-89-2830swzg 1 tablet by mouth once daily at bedtimeTrazodone 100 mg tablet Active 100 MG PO Daily at bedtime June 23, 2024 1:00amtake 1 tablet by mouth once dailytraZODone (DESYREL) 50 MG tablet Take 1 tablet by mouth nightly 0 Activedivalproex sodium 250 mg delayed release oral tablet (17 sources)Mood Stabilizer, Anti-epileptic AgentStart: 59-03-3060bctp 1 tablet by mouth twice dailyDivalproex 250 mg tablet,delayed release (DR/EC) Active 250 MG PO Twice daily June 23, 2024 12:00amStart: 10-19-2023 End: 13-31-7834wnvn 1 tablet by mouth three times dailyDivalproex 250 mg tablet,delayed release (DR/EC) Active 250 MG PO Three times daily June 23, 2024 1:00amtake 1 tablet by mouth every twenty-four hours at bedtimedivalproex (DEPAKOTE ER) 250 mg 24 hr tablet Take 1 tablet (250 mg total) by mouth in the morning and at bedtime. Active Completed/Discontinued Medications MedicationDrug Class(es)DatesSig (Normalized)Sig (Original)acetaminophen 325 mg / HYDROcodone bitartrate 5 mg oral tablet (19 sources)Opioid AgonistStart: 03-09-2023 End: 43-38-0774rdxf 1 tablet by mouth every six hours as needed for pain Hydrocodone-Acetaminophen 5-325 mg tablet Discontinued 1 TAB PO Q6H as needed for pain 30 7 March 09, 2023 June 23, 2024 2:25pmStart: 03-21-2020 End: 67-64-6587evbt 1 tablet by mouth every six hours as needed for pain Hydrocodone-Acetaminophen 5-325 mg tablet Discontinued 1 TAB PO Q6H as needed for Pain 56 14 2019March 21, 2020 8:01amStart: 03-21-2020 End: 26-59-5731jxtq 1 tablet by mouth every four to six hours as needed for pain Hydrocodone-Acetaminophen 5-325 mg tablet Discontinued 1 TAB PO EVERY 4-6 HOURS as needed for pain 70 14 March 21, 2020 June 23, 2024 2:25pmStart: 03-21-2020 End: 48-16-4427exfr 1 tablet by mouth every six hours as needed for pain Hydrocodone-Acetaminophen 5-325 mg tablet Discontinued 1 TAB PO Q6H as needed for Pain 56 14 2019March 21, 2020 8:01amStart: 03-21-2020 End: 12-38-6359akeg 1 tablet by mouth every six hours as needed for pain Hydrocodone-Acetaminophen 5-325 mg tablet Discontinued 1 TAB PO Q6H as needed for Pain 56 14 2019March 21, 2020 7:01amStart: 03-21-2020 End: 18-91-4002wrvs 1 tablet by mouth every six hours as needed for pain Hydrocodone-Acetaminophen 5-325 mg tablet Discontinued 1 TAB PO Q6H as needed for Pain 56 14 2019March 21, 2020 7:01amStart: 03-21-2020 End: 46-68-1915gypr 1 tablet by mouth every six hoursHydrocodone-Acetaminophen Discontinued 1 TAB PO Q6H 56 14 March 21, 2020 March 21, 2020 8:01amStart: 03-14-2020 End: 02-30-7789vyqp 1 tablet by mouth every eight hours as needed for pain Hydrocodone-Acetaminophen 5-325 mg tablet Discontinued 1 TAB PO Q8H as needed for Pain March 14, 2020 12:00am March 21, 2020 8:00amalbuterol 0.833 mg/ml / ipratropium bromide 0.167 mg/ml inhalation solution (8 sources)Anticholinergic, beta2-Adrenergic AgonistStart: 10-17-2023 End: 06-10-7736csknneivhjq-albuteroL (DUONEB) 0.5 mg-3 mg(2.5 mg base)/3 mL nebulizer solution 3 mLStart: 03-02-2021 End: 44-22-2278tzzd 20-100 ug by mouth four times daily as neededCOMBIVENT RESPIMAT 20-100 mcg/actuation mist Indications: Chronic obstructive pulmonary disease, unspecified COPD type ([facility]) INHALE 1 (ONE) puff BY MOUTH FOUR TIMES DAILY NEEDED for shortness of breath 4 g 3 03/02/2021 10/15/2023 DiscontinuedStart: 02-14-2020 End: 26-14-9035ocik 20-100 ug by inhalation four times daily as needed Ipratropium-Albuterol (Combivent Respimat) 20-100 mcg/actuation mist Discontinued 20 - 100 PUFF INHALATION Four times daily as needed for Shortness Of Breath February 14, 2020 12:00am June 23, 2024 2:25pmaluminum hydroxide 40 mg/ml / magnesium hydroxide 40 mg/ml / simethicone 4 mg/ml oral suspension (1 source)Start: 10-15-2023 End: 49-32-1220rfcw-mag hydroxide-simeth (MAALOX) 200-200-20 mg/5 mL suspension 30 mLamLODIPine 10 mg / benazepril hydrochloride 20 mg oral capsule (4 sources)Dihydropyridine Calcium Channel Yvonne, Angiotensin Converting Enzyme InhibitorStart: 10-03-2022 End: 01-25-0475sjlc 1 capsule by mouth once in the morningamLODIPine-benazepril (LOTREL) 10-20 mg per capsule Take 1 capsule by mouth in the morning. 0 202210/15/2023 DiscontinuedStart: 24-26-4490ecqx 1 capsule by mouth once daily amLODIPine-benazepril (LOTREL) 10-20 MG per capsule Take 1 capsule by mouth daily 0 10/03/2022 Activeampicillin 2000 mg / sulbactam 1000 mg injection (1 source)Penicillin-class Antibacterial, beta Lactamase InhibitorStart: 10-15-2023 End: 74-65-2529rxrsktrucg-sulbactam (UNASYN) 3000 mg injection - Pyxis Override Pullampicillin-sulbactam (UNASYN) 3,000 mg in sodium chloride 0.9 % 100 mL IVPB (1 source)Start: 10-15-2023 End: 13-77-2781qwhg 3000 mg intravenously every six hoursampicillin-sulbactam (UNASYN) 3,000 mg in sodium chloride 0.9 % 100 mL IVPBapplicators, cotton balls, etc (COTTON BALLS) misc (2 sources)Start: 10-30-2022 End: 47-07-3728yekxdpcujmw, cotton balls, etc (COTTON BALLS) misc 1 each by miscellaneous route in the morning and1 each before bedtime. 200 each 0 10/30/2022 10/15/2023 DiscontinuedStart: 22-43-8070jbsfapzcoen, cotton balls, etc (COTTON BALLS) misc 1 each by miscellaneous route in the morning and1 each before bedtime. 200 each 0 10/30/2022 ActiveArformoterol (Brovana) 15 mcg/2 mL solution for nebulization (4 sources)Start: 06-23-2024 End: 70-91-6834Mgcbfwyzlcyk (Brovana) 15 mcg/2 mL solution for nebulization Discontinued 2 ML INHALATION Twice daily as needed for wheezing June 23, 2024 1:00am December 22, 2024 1:55pmStart: 37-78-6470Daiqmnisochj (Brovana) 15 mcg/2 mL solution for nebulization Active 2 ML INHALATION Twice daily as needed for wheezing June 23, 2024 12:00amatorvastatin 40 mg oral tablet (9 sources)HMG-CoA Reductase InhibitorStart: 02-14-2020 End: 51-29-2891gqgl 1 tablet by mouth once dailyAtorvastatin 40 mg tablet Discontinued 40 MG PO Daily February 14, 2020 12:00am June 23, 2024 2:24pm barium sulfate (E-Z-DISK) tablet 700 mg (1 source)Start: 10-19-2023 End: 73-42-1216wghksf sulfate (E-Z-DISK) tablet 700 mgbarium sulfate (E-Z-HD) 98 % suspension 340 g (1 source)Start: 10-19-2023 End: 05-72-3888aqxpkg sulfate (E-Z-HD) 98 % suspension 340 gbarium sulfate (E-Z-PAQUE) 96 % (w/w) powder 176 g (1 source)Start: 10-19-2023 End: 67-98-9878vqirna sulfate (E-Z-PAQUE) 96 % (w/w) powder 176 gbarium sulfate (E-Z-PASTE) 60 % oral cream 454 g (1 source)Start: 10-19-2023 End: 56-34-1597tkzwui sulfate (E-Z-PASTE) 60 % oral cream 454 gbarium sulfate (LIQUID E-Z PAQUE) 60 % (w/v) suspension 355 mL (1 source)Start: 10-19-2023 End: 59-74-7566aumfes sulfate (LIQUID E-Z PAQUE) 60 % (w/v) suspension 355 mL barium sulfate (LIQUID POLIBAR PLUS) 105 % (w/v), 58 % (w/w) suspension 300 mL (1 source)Start: 10-19-2023 End: 46-11-6697ixlfqo sulfate (LIQUID POLIBAR PLUS) 105 % (w/v), 58 % (w/w) suspension 300 mLbarium sulfate (VARIBAR HONEY) 40 % (w/v) 29% (w/w) suspension 250 mL (1 source)Start: 10-19-2023 End: 11-52-9654gpbjwr sulfate (VARIBAR HONEY) 40 % (w/v) 29% (w/w) suspension 250 mLbarium sulfate (VARIBAR NECTAR) 40 % (w/v) suspension 240 mL (1 source)Start: 10-19-2023 End: 52-35-2390agzxpa sulfate (VARIBAR NECTAR) 40 % (w/v) suspension 240 mL barium sulfate (VARIBAR PUDDING) 40 % (w/v), 30% (w/w) oral paste 230 mL (1 source)Start: 10-19-2023 End: 88-39-4465jghboc sulfate (VARIBAR PUDDING) 40 % (w/v), 30% (w/w) oral paste 230 mLbarium sulfate (VARIBAR THIN HONEY) 40 %(w/v), 29% (w/w)(1500 CPS) suspension 250 mL (1 source)Start: 10-19-2023 End: 31-62-2699tvhrnt sulfate (VARIBAR THIN HONEY) 40 %(w/v), 29% (w/w)(1500 CPS) suspension 250 mLbarium sulfate (VARIBAR THIN) 81 % (w/w) powder 148 g (1 source)Start: 10-19-2023 End: 33-57-8665elmmve sulfate (VARIBAR THIN) 81 % (w/w) powder 148 gbenzocaine 6 mg / menthol 10 mg oral lozenge (2 sources)Standardized Chemical AllergenStart: 11-24-2022 End: 28-06-1841vvul 1 tablet by mouth every two hours as neededbenzocaine- menthoL (CHLORASEPTIC SORE THROAT) 6-10 mg lozenge Dissolve 1 lozenge in the mouth every2 (two) hours as needed for sore throat. 100 tablet 0 11/24/2022 10/15/2023 Discontinuedbudesonide 0.5 mg/ml inhalation suspension (9 sources)CorticosteroidStart: 06-23-2024 End: 88-78-2758cdmx 1 mg by inhalation once daily as needed for wheezing Budesonide 1 mg/2 mL suspension for nebulization Discontinued 1 MG INHALATION Daily as needed for wheezing June 23, 2024 1:00am December 22, 2024 1:55pm Start: 36-27-8359wgjw 2 mL by inhalation once dailybudesonide (PULMICORT) 1 mg/2 mL nebulizer solution Indications: Chronic obstructive pulmonary disease, unspecified COPD type ([facility]) Inhale 2 mL (1 mg total) by nebulization once daily. 60 mL 11 05/12/2024 Activediclofenac sodium 0.01 mg/mg topical gel (5 sources)Nonsteroidal Anti-inflammatory DrugStart: 02-14-2020 End: 10-02-9600hiyld 2 g topically three times dailyDiclofenac Sodium 1 % gel Discontinued 2 GM TOPICAL Three times daily February 14, 2020 12:00am June 23, 2024 2:24pmStart: 81-52-4822klvux 2 g topically three times dailyDiclofenac Sodium Active 2 GM TOPICAL Three times daily February 14, 2020 12:00am diphenhydrAMINE (2 sources)Histamine-1 Receptor AntagonistStart: 10-16-2023 End: 90-83-4866octt 50 mg intravenously every six hours as needed for sleep diphenhydrAMINE (BENADRYL) injection 50 mgStart: 10-16-2023 End: 98-45-0426eycwytzhajVKPKJ (BENADRYL) injection 50 mgdocusate sodium 50 mg / sennosides, correction 8.6 mg oral tablet (1 source)Start: 10-15-2023 End: 72-89-4196eild 1 tablet by mouth every twelve hours as needed for constipationsennosides-docusate sodium (SENOKOT-S) 8.6-50 mg 1 tabletdoxycycline hyclate 100 mg oral capsule (4 sources)Tetracycline-class DrugStart: 03-03-2023 End: 59-73-4395kevr 10 mg by mouth twice dailyDoxycycline Hyclate 100 mg capsule Discontinued 10 MG PO Twice daily March 03, 2023 12:00am March 09, 2023 1:24pm until 03/05/23empagliflozin 10 mg oral tablet (13 sources)Sodium-Glucose Cotransporter 2 InhibitorStart: 03-18-2024 End: 31-59-5717cupk 1 tablet by mouth once daily in the morningEmpagliflozin (Jardiance) 10 mg tablet Discontinued 10 MG PO Every morning June 23, 2024 1:00am December 22, 2024 1:54pmglimepiride 2 mg oral tablet (5 sources)SulfonylureaStart: 02-14-2020 End: 19-34-2598htiv 1 tablet by mouth once dailyGlimepiride 2 mg tablet Discontinued 2 MG PO Daily February 14, 2020 12:00am March 09, 2023 1:24pm glucagon (rdna) 1 mg injection (1 source)Antihypoglycemic AgentStart: 10-15-2023 End: 26-95-4604xxyzapsr HCL injection 1 mg50 ml glucose 500 mg/ml prefilled syringe (2 sources)Start: 10-15-2023 End: 18-54-6621ysqkjeij (GLUTOSE) 40 % gel 15 gStart: 10-15-2023 End: 68-22-7576tkwbibtp 50 % in water (D50W) 50% solution 25 mLHaloperidol (3 sources)Typical AntipsychoticStart: 10-16-2023 End: 03-45-0527pfbo 5 mg intravenously every six hours as neededhaloperidol lactate (HALDOL) injection 5 mgtake 1 tablet by mouth every six hours as needed haloperidol (HALDOL) 5 MG tablet Take 1 tablet by mouth every 6 hours as needed for Agitation 0 ActivehydrALAZINE hydrochloride 25 mg oral tablet (14 sources)Arteriolar VasodilatorStart: 10-18-2023 End: 25-53-5011tgot 1 tablet by mouth every six hours as aaqaom88 mg, oral, Every 6 hours PRN, For SBP >160, Starting on 10/18/23 at 2345, Look-alike/sound-alike medication - verify indication for use.Start: 10-15-2023 End: 41-68-6764vupd 20 mg intravenously every six hours as neededhydrALAZINE (APRESOLINE) injection 20 mgStart: 10-15-2023 End: 85-72-4939vmnu 10 mg intravenously every six hours as neededhydrALAZINE (APRESOLINE) injection 10 mgInsulin Degludec (Tresiba Flextouch U-100) 100 unit/mL (3 mL) insulin pen (4 sources)Start: 02-14-2020 End: 19-33-4560Wvzxhbe Degludec (Tresiba Flextouch U-100) 100 unit/mL (3 mL) insulin pen Discontinued 80 UNIT SUBCUT Daily February 14, 2020 12:00am March 09, 2023 1:24pmStart: 02-14-2020 End: 75-06-7480Vigdkwb Degludec (Tresiba Flextouch U-100) 100 unit/mL (3 mL) insulin pen Discontinued 80 UNIT SUBCUT Daily February 13, 2020 11:00pm March 09, 2023 12:24pm3 ml insulin lispro 100 unt/ml pen injector (4 sources)Insulin AnalogStart: 10-15-2023 End: 63-67-2394nnagsaz lispro (HumaLOG) injection 2-8 UnitsStart: 10-30-2022 End: 56-46-3396iqrwedl lispro (HumaLOG) 100 unit/mL injection Inject 0.1 mL (10 Units total) under the skin in themorning and 0.1 mL (10 Units total) at noon and 0.1 mL (10 Units total) in the evening. Inject before meals. 10 mL 0 10/30/2022 10/15/2023 Discontinuediopamidol (ISOVUE-370) 76 % injection 75 mL (1 source)Start: 09-06-2023 End: 24-98-7975vhuvllltl (ISOVUE-370) 76 % injection 75 mLammonium lactate 120 mg/ml topical lotion (2 sources)Start: 10-04-2022 End: 24-95-5911fgqfrnhc lactate (LAC-HYDRIN) 12 % lotion Apply 1 application. topically in the morning. Apply to bilateral feet. 0 10/04/2022 10/15/2023 DiscontinuedlevoFLOXacin 250 mg oral tablet (5 sources)Quinolone AntimicrobialStart: 10-19-2023 End: 80-27-9644bupm 1 tablet by mouth every twenty-four hourslevoFLOXacin (LEVAQUIN) tablet 500 mgStart: 10-19-2023 End: 25-20-9662qyqj 1 tablet by mouth once dailylevoFLOXacin (LEVAQUIN) 500 mg tablet Take 1 tablet (500 mg total) by mouth nightly for 7 days. 0 10/19/2023 10/26/2023 ActiveStart: 10-18-2023 End: 37-56-8108ivlvPOTXlgqr (LEVAQUIN) tablet 500 mgStart: 10-18-2023 End: 58-79-5895mweqDZHGrdgk (LEVAQUIN) 250 mg tablet - Pyxis Override Pull3 ml liraglutide 6 mg/ml pen injector (2 sources)GLP-1 Receptor AgonistStart: 10-30-2022 End: 08-77-0657wljfxy 0.1 mL by subcutaneous injection in the morningliraglutide (VICTOZA) 0.6 mg/0.1 mL (18 mg/3 mL) pen injector Inject 0.1 mL (0.6 mg total) under the skin in the morning. 3 mL 2 10/30/2022 10/15/2023 Discontinued lisinopril 10 mg oral tablet (20 sources)Angiotensin Converting Enzyme InhibitorStart: 06-23-2024 End: 59-09-2160qspt 1 tablet by mouth once daily in the morningLisinopril 10 mg tablet Discontinued 10 MG PO Every morning June 23, 2024 1:00am December 2251:54pmStart: 79-14-9945sigpgeulcH (PRINIVIL,ZESTRIL) 2.5 mg tablet 03/06/2024 ActiveStart: 35-52-2022alsfqtrwsW (PRINIVIL,ZESTRIL) 10 mg tablet 03/06/2024 ActiveStart: 10-18-2023 End: 88-30-4428nqqrkfsdzZ (PRINIVIL,ZESTRIL) tablet 20 mgStart: 03-14-2020 End: 86-79-0520uygn 1 tablet by mouth once dailyLisinopril 40 mg tablet Discontinued 40 MG PO Daily March 14, 2020 12:00am March 09, 2023 1:24pmStart: 02-14-2020 End: 63-97-4463tkzy 1 tablet by mouth once dailyLisinopril 40 mg tablet Discontinued 40 MG PO Daily February 14, 2020 12:00am February 15, 2020 9:31amtake 1 tablet by mouth once dailylisinopril (PRINIVIL;ZESTRIL) 2.5 MG tablet Take 1 tablet by mouth daily 0 Active1 ml LORazepam 2 mg/ml injection (16 sources)BenzodiazepineStart: 10-16-2023 End: 91-25-0287UODbeluux (ATIVAN) injection 2 mgStart: 10-15-2023 End: 38-77-2667qvox 1 mg intravenously every four hours as needed for anxiety LORazepam (ATIVAN) injection 1 mgtake 1 tablet by mouth every six hours as needed for anxietyLORazepam (ATIVAN) 1 mg tablet Take 1 tablet (1 mg total) by mouth every 6 (six) hours as needed for anxiety. Zjzirk17 ml magnesium sulfate 40 mg/ml injection (2 sources)Start: 10-15-2023 End: 79-05-6489zhdxxjeav sulfate IVPB 2000 mg/50 mL in iso-osmotic water (40 mg/mL premix)Start: 10-15-2023 End: 18-10-1304nygxilsoe sulfate IVPB 4000 mg/100 mL in iso-osmotic water (40 mg/mL premix)melatonin 3 mg oral tablet (2 sources)Start: 10-30-2022 End: 64-10-6164rwwz 1 tablet by mouth once dailymelatonin (CIRCADIN) tablet Take 1 tablet (3 mg total) by mouth nightly. 30 tablet 1 10/30/2022 10/15/2023 Discontinued5 ml metoprolol tartrate 1 mg/ml injection (9 sources)beta-Adrenergic BlockerStart: 10-17-2023 End: 07-03-6214znbfdcqomo (LOPRESSOR) injection 5 mgStart: 37-45-3940zijm 1 tablet by mouth twice dailymetoprolol tartrate (Lopressor) 25 MG tablet Indications: Essential (primary) hypertension (CMS/HCC) TAKE 1 TABLET BY MOUTH TWICE DAILY 180 tablet 0 09/15/2023 ActiveStart: 03-03-2023 End: 70-04-7716Heowwpqpjb Tartrate 50 mg tablet Discontinued MG TABLET March 03, 2023 12:00am March 09, 2023 1:24pmnaproxen 500 mg oral tablet (4 sources)Nonsteroidal Anti-inflammatory DrugStart: 03-09-2023 End: 19-20-1474zrve 1 tablet by mouth twice daily at mealtime as needed for pain Naproxen 500 mg Tablet Discontinued 500 MG PO Twice daily with meals as needed for Pain 0 March 09, 2023 12:00am June 23, 2024 2:25pm24 hr nicotine 0.875 mg/hr transdermal system (2 sources)Cholinergic Nicotinic AgonistStart: 10-30-2022 End: 14-87-0685jebkm 1 dose transdermal route every hour in the morningnicotine (NICODERM CQ) 21 mg/[address] 1 patch on the skin in the morning. 30 patch 1 10/30/2022 10/15/2023 Discontinuedondansetron 4 mg disintegrating oral tablet (6 sources)Serotonin-3 Receptor AntagonistStart: 10-15-2023 End: 86-61-1445mjae 1 tablet by mouth (buccal) every six hours as needed for nausea and vomitingondansetron ODT (ZOFRAN ODT) disintegrating tablet 4 mgStart: 02-14-2020 End: 21-32-5119ajmh 1 tablet by mouth every six hours as needed for nausea Ondansetron 4 mg tablet,disintegrating Discontinued 4 MG PO Q6H as needed for Nausea February 14, 2020 12:00am June 23, 2024 2:25pmpolyethylene glycol 3350 40461 mg powder for oral solution (4 sources)Osmotic LaxativeStart: 03-09-2023 End: 05-96-0231Qnkjgpxqenks Glycol 3350 (Healthylax) 17 gram Powder In Packet Discontinued 17 GM PO Daily as needed for Constipation March 09, 2023 12:00am June 23, 2024 2:37qd662 ml potassium chloride 0.1 meq/ml injection (1 source)Start: 10-15-2023 End: 67-19-5849gkfjoxlxo chloride IVPB 10 mEq/100 mL in water (0.1 mEq/mL premix)pregabalin 75 mg oral capsule (17 sources)Start: 02-15-2020 End: 44-72-4981oskw 1 capsule by mouth twice dailyPregabalin 75 mg capsule Discontinued 75 MG PO Twice daily March 14, 2020 8:38am June 23, 2024 2:25pmStart: 02-14-2020 End: 56-85-4811srzr 1 capsule by mouth three times dailyPregabalin 150 mg capsule Discontinued 150 MG PO Three times daily February 14, 2020 12:00am February 15, 2020 9:31amtake 1 capsule by mouth three times dailypregabalin (LYRICA) 75 MG capsule Take 1 capsule by mouth 3 times daily. Max Daily Amount: 225 mg 0 Activepsyllium 3400 mg powder for oral suspension (4 sources)Start: 03-09-2023 End: 33-82-3658Wpeivsca Husk (Metamucil) 3.4 gram/5.4 gram powder Discontinued 1 TBSP PO Twice daily March 09, 2023 12:00am June 23, 2024 2:25pm mix into at least 8 oz of water or juice before administeringQUEtiapine 100 mg oral tablet (9 sources)Atypical AntipsychoticStart: 10-03-2022 End: 33-75-7456iwuf 1 tablet by mouth in the morning, then take 1 tablet by mouth at bedtimeQUEtiapine (SEROquel) 100 mg tablet Take 1 tablet (100 mg total) by mouth in the morning and 1 tablet (100 mg total) before bedtime. 0 10/03/2022 10/15/2023 DiscontinuedStart: 51-44-9283yoqq 0.5 tablet by mouth once dailyQUEtiapine (SEROQUEL) 100 MG tablet Take 0.5 tablets by mouth daily 0 10/03/2022 Activetake 1 tablet by mouth once dailyQUEtiapine (SEROquel) 50 mg tablet Take 1 tablet (50 mg total) by mouth nightly. ActiveSennosides (Senokot) 8.6 mg tablet (4 sources)Start: 03-09-2023 End: 27-18-7539mano 1 tablet by mouth twice dailySennosides (Senokot) 8.6 mg tablet Discontinued 8.6 MG PO Twice daily March 09, 2023 12:00am June 23, 2024 2:25pmStart: 03-09-2023 End: 86-60-6584jorn 1 tablet by mouth twice dailySennosides (Senokot) 8.6 mg tablet Discontinued 8.6 MG PO Twice daily March 08, 2023 11:00pm June 23, 2024 1:07ln6658 ml sodium chloride 9 mg/ml injection (2 sources)Start: 10-15-2023 End: 86-91-9929frjkvb chloride 0.9 % infusionStart: 10-14-2023 End: 95-69-2117fhgvrc chloride 0.9 % flush 3 mLtamsulosin hydrochloride 0.4 mg oral capsule (9 sources)alpha-Adrenergic BlockerStart: 10-03-2022 End: 49-79-0739uigx 1 capsule by mouth in the morningtamsulosin (FLOMAX) 0.4 mg capsule Take 1 capsule (0.4 mg total) by mouth in the morning. 0 10/03/2022 10/15/2023 Discontinued7 actuat umeclidinium 0.0625 mg/actuat dry powder inhaler (1 source)AnticholinergicStart: 10-15-2023 End: 37-28-7589rzrm 1 puff(s) by inhalation once daily1 puff, inhalation, Daily, First dose on [facility] 10/15/23 at 1000, Do not shake inhaler.valsartan 320 mg oral tablet (6 sources)Angiotensin 2 Receptor BlockerStart: 03-09-2023 End: 88-74-7882nnsm 1 tablet by mouth once dailyValsartan 320 mg tablet Discontinued 320 MG PO Daily March 09, 2023 12:00am June 23, 2024 2 :37pm Problems Active Problems Problem ClassificationProblemDateDocumented DateEpisodic/ChronicAbdominal pain (2 sources)Generalized abdominal pain; Translations: [Generalized abdominal pain]Onset: 152738-79-4286UrtwtjbbTzcuvwrh foot deformities (1 source)Other acquired deformities of right foot; Translations: [OTHER ACQUIRED DEFORMITIES RT FOOT]Onset: 63-20-9113NoozetnwXonojmzp foot deformities (1 source)Other acquired deformities of left foot; Translations: [OTHER ACQUIRED DEFORMITIES LT FOOT]Onset: 26-67-3181WlewxyzvNwvkt and unspecified renal failure (5 sources)Acute renal failure syndrome; Translations: [Acute kidney failure, unspecified]93-88-7154ZhxgdddvWgfuljl on above:Problem List clean-up per request of Phys. EHR CmteAcute cerebrovascular disease (20 sources)Nontraumatic subdural hemorrhage, unspecified; Translations: [Nontraumatic acute subdural hemorrhage]Onset: 10-23-2022 Resolved: 024660-10-9400VdrfalwYhejrjm disorders (13 sources)Anxiety disorder, unspecified; Translations: [Generalized anxiety disorder]Onset: 812856-31-6462DleiujyByyhnmal (2 sources)Posterior subcapsular polar age-related cataract, left eye; Translations: [Unspecified cataract]Onset: 63-45-8967SgtadxeMvjarnt obstructive pulmonary disease and bronchiectasis (20 sources)Chronic obstructive pulmonary disease, unspecified; Translations: [Chronic obstructive pulmonary disease with (acute) exacerbation]Onset: 947079-12-9014XoyotagHkhpdbf on above:Problem List clean-up per request of Phys. EHR CmteChronic ulcer of skin (2 sources)Non-pressure chronic ulcer of right heel and midfoot limited to breakdown of skin; Translations: [Non-pressure chronic ulcer of other part of right foot with unspecified severity]Onset: 27-27-7390LlnfblmQbobrqllci associated with dizziness or vertigo (4 sources)Dizziness and giddiness; Translations: [DIZZINESS AND GIDDINESS] Onset: 18-42-8055MfoyorjeDdfnezeg injury or internal injury (15 sources)Contusion of lung; Translations: [Contusion of lung, unilateral, initial encounter]Onset: 04-15-2023 Resolved: 382894-21-8632MqmlrhyyWagvafk on above:Problem List clean-up per request of Phys. EHR CmteDevelopmental disorders (2 sources)Developmental disorder of scholastic skills, unspecified; Translations: [Developmental academic disorder]Onset: ChronicDiabetes mellitus with complications (20 sources)Type 2 diabetes mellitus with hyperglycemia; Translations: [Type 2 diabetes mellitus with foot ulcer]Onset: 08-29-2019 Resolved: 43-30-6382VneatikVjcdpdki mellitus without complication (5 sources)Type 2 diabetes mellitus without complications; Translations: [Type 2 diabetes mellitus]Onset: 225031-28-2021MqwdzvnWmzufxd on above:Problem List clean-up per request of Phys. EHR CmteDiabetes mellitus without complication (1 source)Hyperglycemia, unspecified; Translations: [Hyperglycemia, unspecified] Onset: 76-72-3975ZglfjnlgZdsvcaoe of white blood cells (7 sources)Leukocytosis; Translations: [Elevated white blood cell count, unspecified]Onset: 036046-41-4812PhgkodfOxdojtr on above:Problem List clean-up per request of Phys. EHR CmteDisorders of lipid metabolism (13 sources)Hyperlipidemia, unspecified; Translations: [Mixed hyperlipidemia] Onset: 844452-11-9821FqfhbfpI Codes: Fall (1 source)FallOnset: 09-60-3768Ckkwsofrqm disorders (1 source)Gastro-esophageal reflux disease without esophagitis; Translations: [GERD WITHOUT ESOPHAGITIS]Onset: 09-39-3396TzdhbadCvzlugoez hypertension (13 sources)Essential (primary) hypertension; Translations: [Essential hypertension]Onset: 385702-06-7922GkmmhdsEppru and electrolyte disorders (2 sources)Dehydration; Translations: [Hypo-osmolality and hyponatremia]Onset: 87-03-7406MusxyibzTpcszgczcuvwm symptoms and ill-defined conditions (2 sources)Frequency of micturition; Translations: [Frequency of micturition] Onset: 78-29-8144BgoikrxbAaimutntexz of prostate (1 source)Benign prostatic hyperplasia without lower urinary tract symptoms; Translations: [BENIGN PROSTATIC HYPRPLASIA WO LUTS]Onset: 87-42-1856Qodduxz Intracranial injury (4 sources)History of traumatic brain injury; Translations: [Personal history of traumatic brain injury]27-74-9329UmrhswfnFlwsevx on above:Problem List clean-up per request of Phys. EHR CmteMycoses (1 source)Tinea pedis; Translations: [TINEA PEDIS]Onset: 48-56-4725ZorottgoLbwtn aftercare (1 source)intermediate accountant (current) use of aspirin; Translations: [PRISON CURRENT USE OF ASPIRIN]Onset: 30-62-0739QfrowjaeMlboy aftercare (1 source)Other intermediate teacher (current) drug therapy; Translations: [OTH ASSISTANT PROGRAM MANAGER CURRENT DRUG THERAPY]Onset: 46-43-5130OibqtvhaEqvie aftercare (1 source)retirement (current) use of insulin; Translations: [ASSISTANT PROGRAM MANAGER CURRENT USE OF INSULIN]Onset: 80-12-3339ZocdhrvmOvcbo aftercare (1 source)intermediate accountant (current) use of oral hypoglycemic drugs; Translations: [PRISON USE ORAL HYPOGLYCEMIC DX]Onset: 62-57-2503GyrokoznVgzso aftercare (1 source)retirement (current) use of inhaled steroids; Translations: [PRISON USE OF INHALED STEROIDS]Onset: 40-69-7760LtqdbciaHlldb circulatory disease (1 source)Personal history of other diseases of the circulatory system; Translations: [PERSONAL HISTORY OTH DZ CIRC SYSTEM]Onset: 01-02-2602Wwswpyyn Other connective tissue disease (1 source)Presence of unspecified artificial hip joint; Translations: [PRESENCE UNS ARTIFICIAL HIP JOINT]Onset: 01-61-2928JpvsglnGidqk connective tissue disease (1 source)Plantar fascial fibromatosis; Translations: [PLANTAR FASCIAL FIBROMATOSIS]Onset: 30-41-0695NvmtxyicJmeiq connective tissue disease (1 source)Pain in right foot; Translations: [PAIN IN RIGHT FOOT]Onset: 92-52-0279TymgjjskFjedj connective tissue disease (1 source)Pain in left foot; Translations: [PAIN IN LEFT FOOT]Onset: 10-29-2022 EpisodicOther fractures (16 sources)Compression fracture of L2; Translations: [Wedge compression fracture of second lumbar vertebra, initial encounter for closed fracture]Onset: 252986-92-4658LfszdqhqAyeywtp on above:Problem List clean-up per request of Phys. EHR CmteOther fractures (4 sources)Fracture of multiple ribs ; Translations: [Multiple fractures of ribs, left side, initial encounterfor closed fracture]91-20-4387IechujkiVjniaob on above:Problem List clean-up per request of Phys. EHR CmteOther fractures (4 sources)Fracture of transverse process of lumbar vertebra; Translations: [Unspecified fracture of unspecified lumbar vertebra, initial encounter for closed fracture]57-70-6881FdulvivjOipfpes on above:Problem List clean-up per request of Phys. EHR CmteOther hematologic conditions (5 sources)Erythrocytosis; Translations: [Secondary polycythemia]02-14-2020 EpisodicComment on above:Problem List clean-up per request of Phys. EHR Cmte Other injuries and conditions due to external causes (3 sources)Unspecified injury of thorax, initial encounter; Translations: [UNSPECIFIED INJURY THORAX INITIAL]Onset: 85-10-1266KqtmuurnQnumt injuries and conditions due to external causes (1 source)Personal history of other (healed) physical injury and trauma; Translations: [Personal history of other (healed) physical injury and trauma] Onset: 57-81-5544PotkblwvHpwok injuries and conditions due to external causes (1 source)History of subdural hematoma; Translations: [Personal history of other (healed) physical injury andtrauma]23-87-6070PqhdgxeuVdhdq lower respiratory disease (3 sources)Shortness of breath; Translations: [SHORTNESS OF BREATH]Onset: 46-09-6873GhfpzhmkDbhdg lower respiratory disease (1 source)Personal history of pneumonia (recurrent); Translations: [PERSONAL HX OF PNEUMONIA RECURRENT]Onset: 15-15-5185HkbwoissBlham nervous system disorders (12 sources)Metabolic encephalopathy; Translations: [Metabolic encephalopathy] Onset: 351288-57-0813CyurppwIpccx nervous system disorders (1 source)Other chronic pain; Translations: [Other chronic pain]Onset: 33-59-1736HezzpztXdwss nutritional; endocrine; and metabolic disorders (5 sources)Hypercalcemia; Translations: [Hypercalcemia]35-53-2514WuaisruLrqhlso on above:Problem List clean-up per request of Phys. EHR CmteOther nutritional; endocrine; and metabolic disorders (2 sources)Abnormal weight gain; Translations: [Abnormal weight gain]Onset: 89-91-6964CyafoggdVnxfr skin disorders (1 source)Corns and callosities; Translations: [CORNS AND CALLOSITIES]Onset: 19-50-2435JiesqmllHhgli upper respiratory disease (1 source)Paralysis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 Hospital OconomowocGlucose [Mass/Vol]194 mg/kKAqtw96 - 99 mg/dLMemorial Health SystemInterpretation and review of laboratory resultsAbnoWilkes-Barre General HospitalMagnesiumon [id number] [Mass/Vol] 1.8 mg/dL1.8 - 2.6 mg/dLMemorial Health SystemNo Panel Informationon 10-19-2023 [facility] SystemRF videography Hypopharynx and Esophagus Viewson 10-19-2023 History: Aspiration pneumonia. Oral pharyngeal dysphagia Exam/Technique: Swallowing motility study. Comparison: None Findings: Only honey thickened liquid with chin tuck during was successfully swallowed without aspiration. With other thinner liquids. With honey consistency without the chin intact aspiration occurred with a blunted there are no cough reflex resulting. Areas barium coated solids were taken without aspiration, significant pharyngeal stasis or any major difficulty. 2.3 minutes of fluoroscopy time was used. Fluoroscopic imaging was stored with no spot fluoroscopicviews taken. The reference air Kerma was 2.4 mGy. IMPRESSION: A thickened liquid with chin talking needed to avoid aspiration of liquids.. Correlate with dedicated speech pathology report for additional details and recommendations. Finalized by Deo Martínez MD on 10/19/2023 10:56 Deo Gilman MD - 10/19/2023 History: Aspiration pneumonia. Oral pharyngeal dysphagia Exam/Technique: Swallowing motility study. Comparison: None Findings: Only honey thickened liquid with chin tuck during was successfully swallowed without aspiration. With other thinner liquids. With honey consistency without the chin intact aspiration occurred with a blunted there are no cough reflex resulting. Areas barium coated solids were taken without aspiration, significant pharyngeal stasis or any major difficulty. 2.3 minutes of fluoroscopy time was used. Fluoroscopic imaging was stored with no spot fluoroscopicviews taken. The reference air Kerma was 2.4 mGy. IMPRESSION: A thickened liquid with chin talking needed to avoid aspiration of liquids.. Correlate with dedicated speech pathology report for additional details and recommendations. Finalized by Deo Martínez MD on 10/19/2023 10:56 AM [facility] SystemRadiology Study observation (narrative)[facility] SystemRF videography Hypopharynx and Esophagus ViewsOrdered By: Deo Martínez on 05-27-2334UsxBiilqyLouis Stokes [facility] Work Phone: cbc auto differentialon [id number] (Bld) [#/Vol]0.1 10*3/[facility] HospitalBasophils/100 WBC (Bld)1.2 %[facility] SystemEosinophils (Bld) [#/Vol]0.3 10*3/[facility] Eosinophils/100 WBC (Bld)4.2 %[facility] SystemErythrocyte distribution width (RBC) [Ratio]14.2 %11.5 - 15.0 %[facility] SystemHematocrit (Bld) [Volume fraction]38.4 %Low39 - 49 %[facility] SystemHemoglobin (Bld) [Mass/Vol]13.1 g/dL13.0 - 17.0 g/dLMemorial Health SystemInterpretation and review of laboratory resultsAbnormalMemorial Health SystemLymphocytes (Bld) [#/Vol]1.9 10*3/uLMemorial Health SystemLymphocytes/100 WBC (Bld)30.1 % [facility]H (RBC) [Entitic mass]31.5 pg27 - 34 [facility] HospitalMCHC (RBC) [Mass/Vol]34.1 g/dL32 - 36 g/dLMemorial Health SystemMCV (RBC) [Entitic vol]92 fL80 - 100 [facility] CenterMonocytes (Bld) [#/Vol]1.0 10*3/uLCarilion New River Valley Medical CenterMonocytes/100 WBC (Bld)15.3 %[facility] SystemNeutrophils (Bld) [#/Vol]3.1 10*3/uLMemorial Health SystemNeutrophils/100 WBC (Bld)49.2 %[facility] SystemPlatelet mean volume (Bld) [Entitic vol] 9.1 fL7 - 12 [facility] CenterPlatelets (Bld) [#/Vol]245 10*3/uL [facility] SystemRBC (Bld) [#/Vol]4.15 10*6/uLMemorial Health SystemWBC corrected for nucl RBC Auto (Bld) [#/Vol]6.2PNew Lifecare Hospitals of PGH - Alle-KiskiComprehensive metabolic panelon [id number] [Mass/Vol]3.4 g/dL3.2 - 5.3 g/dLMemorial Health SystemALP [Catalytic activity/Vol]91 U/L39 - 130 U/[facility]ALT No additional P-5'-P [Catalytic activity/Vol] 76 U/LHigh0 - 40 U/[facility] ClinicAnion gap [Moles/Vol]9 mmol/L5 - 15 mmol/[facility] SystemAST [Catalytic activity/Vol]45 U/LHigh0 - 41 U/L [facility] SystemBilirubin [Mass/Vol]0.9 mg/dL0.3 - 1.2 mg/dLMemorial Health SystemCalcium [Mass/Vol]9.9 mg/dL8.5 - 10.5 mg/dLMem[facility] Health System Chloride [Moles/Vol]107 mmol/L98 - 109 mmol/[facility] SystemCO2 [Moles/Vol]23 mmol/L22 - 32 mmol/[facility] ClinicCreatinine [Mass/Vol] 0.74 mg/dL0.70 - 1.20 mg/dLMemorial Health SystemComment on above:METHOD TRACEABLE TO IDNE STANDARDeGFR (CKD-EPI)non-race dependent- [facility] ServicesComment on above: Reported eGFR is based on the CKD-EPI 2020 equation that does not use a race coefficient. Glucose [Mass/Vol]226 mg/yVBdlp53 - 99 mg/dLMemorial Health System Interpretation and review of laboratory resultsAbnormalMemorial Health System Potassium [Moles/Vol]3.6 mmol/L3.5 - 5.0 mmol/[facility] ClinicProtein [Mass/Vol]7.2 g/dL6.0 - 8.0 g/dLNovant Health Ballantyne Medical Centerodium [Moles/Vol]139 mmol/L134 - 146 mmol/LProMedica Chelsea HospitalUrea nitrogen [Mass/Vol]24 mg/dL5 - 27 mg/dLMemorial Health SystemGlucose Glucometer (BldC) [Mass/Vol]on 06-03-5865Adyocqa [Mass/Vol]235 mg/eNZupz91 - 99 mg/dLMemorial Health System Interpretation and review of laboratory resultsAbnoProHealth Memorial Hospital OconomowocGlucose [Mass/Vol]240 mg/bYLxks59 - 99 mg/dLMemorial Health SystemInterpretation and review of laboratory resultsAbnoWilkes-Barre General HospitalGlucose [Mass/Vol]264 mg/xAGatw51 - 99 mg/dL [facility] SystemInterpretation and review of laboratory resultsAbnoal [facility] SystemsGlucose [Mass/Vol]217 mg/tKOdrd74 - 99 mg/dLMemorial Health SystemInterpretation and review of laboratory results AbnormalEndless Mountains Health SystemsMagnesiumon 10-18-2023 Magnesium [Mass/Vol]1.9 mg/dL1.8 - 2.6 mg/dLMemorial Health SystemNo Panel Informationon [id number] Stokes Cleveland VA Medical CenterCBC auto differentialon [id number] (Bld) [#/Vol]0.1 10*3/uLMemorial Health SystemBasophils/100 WBC (Bld)1.0 %[facility] SystemEosinophils (Bld) [#/Vol]0.3 10*3/uL [facility] SystemEosinophils/100 WBC (Bld)4.4 %[facility] Erythrocyte distribution width (RBC) [Ratio]14.3 %11.5 - 15.0 %[facility] SystemHematocrit (Bld) [Volume fraction]38.6 %Low39 - 49 %[facility] SystemHemoglobin (Bld) [Mass/Vol]13.2 g/dL13.0 - 17.0 g/dLMemorial Health SystemInterpretation and review of laboratory resultsAbnormalMemorial Health SystemLymphocytes (Bld) [#/Vol]1.5 10*3/uLMemorial Health SystemLymphocytes/100 WBC (Bld)24.4 %[facility] SystemMCH (RBC) [Entitic mass]31.4 pg27 - 34 pg [facility] SystemMCHC (RBC) [Mass/Vol]34.2 g/dL32 - 36 g/dLMemorial Health SystemMCV (RBC) [Entitic vol]92 fL80 - 100 [facility] Monocytes (Bld) [#/Vol]1.0 10*3/[facility] SaultMonocytes/100 WBC (Bld)16.9 %[facility] SystemNeutrophils (Bld) [#/Vol]3.2 10*3/uLMemorial Health SystemNeutrophils/100 WBC (Bld)53.3 %[facility] SystemPlatelet mean volume (Bld) [Entitic vol]8.8 fL7 - 12 [facility] CenterPlatelets (Bld) [#/Vol]244 10*3/[facility] HospitalRBC (Bld) [#/Vol]4.20 10*6/[facility] HospitalWBC corrected for nucl RBC Auto (Bld) [#/Vol]6.0[facility] SystemsComprehensive metabolic panelon 60-14-9786Pgpgrjq [Mass/Vol]3.1 g/dLLow3.2 - 5.3 g/dLMemorial Health SystemALP [Catalytic activity/Vol]87 U/L39 - 130 U/[facility]ALT No additional P-5'-P [Catalytic activity/Vol]71 U/LHigh0 - 40 U/[facility] SystemAnion gap [Moles/Vol]9 mmol/L5 - 15 mmol/[facility] Health SystemAST [Catalytic activity/Vol]41 U/L0 - 41 U/[facility] ClinicBilirubin [Mass/Vol]0.9 mg/dL0.3 - 1.2 mg/dLMem[facility] Health SystemCalcium [Mass/Vol]9.8 mg/dL8.5 - 10.5 mg/dLMemorial Health SystemChloride [Moles/Vol]107 mmol/L98 - 109 mmol/L [facility] SystemCO2 [Moles/Vol]23 mmol/L22 - 32 mmol/[facility] ClinicCreatinine [Mass/Vol]0.76 mg/dL0.70 - 1.20 mg/dLMem[facility] Health System Comment on above:[facility] STANDARDeGFR (CKD-EPI)non-race dependent- [facility] HospitalComment on above: Reported eGFR is based on the CKD-EPI 2020 equation that does not use a race coefficient. Glucose [Mass/Vol]153 mg/iPDrdu90 - 99 mg/dLMemorial Health System Interpretation and review of laboratory resultsAbnoUNC Medical Center Potassium [Moles/Vol]3.5 mmol/L3.5 - 5.0 mmol/[facility] SystemProtein [Mass/Vol]6.9 g/dL6.0 - 8.0 g/dLNovant Health Ballantyne Medical Centerodium [Moles/Vol]139 mmol/L134 - 146 mmol/[facility] ClinicUrea nitrogen [Mass/Vol]24 mg/dL5 - 27 mg/dLMemorial Health SystemGlucose Glucometer (BldC) [Mass/Vol]on [id number] [Mass/Vol]251 mg/fUKsfu56 - 99 mg/dLMemorial Health System Interpretation and review of laboratory resultsAbnoProHealth Memorial Hospital OconomowocGlucose [Mass/Vol]218 mg/hDXqrf29 - 99 mg/dLMemorial Health SystemInterpretation and review of laboratory resultsAbnormGeisinger-Lewistown HospitalGlucose [Mass/Vol]207 mg/pVDztn98 - 99 mg/dL [facility] SystemInterpretation and review of laboratory resultsAbnormal [facility] SystemsGlucose [Mass/Vol]124 mg/lOImjm04 - 99 mg/dLMemorial Health SystemInterpretation and review of laboratory results AbnormalEndless Mountains Health SystemsMagnesiumon 10-17-2023 Magnesium [Mass/Vol]1.8 mg/dL1.8 - 2.6 mg/dLMemorial Health SystemNo Panel Informationon 23-54-2517VpvYynijiLouis Stokes Cleveland VA Medical CenterCBC auto differentialon 07-51-8230Klvytnbyk (Bld) [#/Vol]0.1 10*3/uLMemorial Health SystemBasophils/100 WBC (Bld)1.1 %[facility] SystemEosinophils (Bld) [#/Vol]0.1 10*3/uL [facility] SystemEosinophils/100 WBC (Bld)1.5 %[facility] Erythrocyte distribution width (RBC) [Ratio]14.3 %11.5 - 15.0 %[facility] SystemHematocrit (Bld) [Volume fraction]38.9 %Low39 - 49 %[facility] SystemHemoglobin (Bld) [Mass/Vol]13.4 g/dL13.0 - 17.0 g/dLMemorial Health SystemInterpretation and review of laboratory resultsAbnormMercy HospitalLymphocytes (Bld) [#/Vol]1.6 10*3/[facility] HospitalLymphocytes/100 WBC (Bld)19.8 %[facility] SystemMCH (RBC) [Entitic mass]31.7 pg27 - 34 pg [facility] SystemMCHC (RBC) [Mass/Vol]34.5 g/dL32 - 36 g/dLMemorial Health SystemMCV (RBC) [Entitic vol]92 fL80 - 100 [facility] Monocytes (Bld) [#/Vol]1.0 10*3/uLCarilion New River Valley Medical CenterMonocytes/100 WBC (Bld)12.2 %[facility] SystemNeutrophils (Bld) [#/Vol]5.3 10*3/[facility] HospitalNeutrophils/100 WBC (Bld)65.4 %[facility] SystemPlatelet mean volume (Bld) [Entitic vol]8.7 fL7 - 12 [facility] CenterPlatelets (Bld) [#/Vol]247 10*3/[facility] HospitalRBC (Bld) [#/Vol]4.22 10*6/[facility] HospitalWBC corrected for nucl RBC Auto (Bld) [#/Vol]8.1PO[facility] Health Shreveportimmatics biotechnologiesMagruder HospitalMobile Media PartnersCardiac echo study ProcedureOrdered By: Fanny Bill on 47-28-8541Mnovwm root3.80 [facility]Healthim[facility]otechnologies Work Phone: [phone] %28 - 44 %[facility] Medical CenterCrambu Work Phone: [phone] Septum Diastolic Thickness by 2D13 cm [facility] CenterCrambu Work Phone: TSO5.30 cm0.6 - 1.1 [facility] CenterGlobalLogic Work Phone: LA size3.80 [facility]Healthim[facility]otechn[facility] Work Phone: Left Ventricle [phone] [facility] Hospitalimmatics biotechnologies Work Phone: LV RWT 2D68.57[facility] HospitalCanyon Midstream Partners Work Phone: [phone] cm4.72 - 6.55 [facility]im[facility]otechn[facility] Work Phone: VJWAk6.50 cm2.78 - 4.21 [facility] CenterGlobalLogic Work Phone: NK7.20 cm0.6 - 1.1 [facility] CenterGlobalLogic Work Phone: KKIVOY-9.63[facility] HospitalCanyon Midstream Partners Work Phone: JGQLOC-2.48[facility] HospitalC[facility] Partners Work Phone: [phone] [employer]stream Partners Work Phone: [phone] echo study Procedureon 06-06-2522Kwkg Ventricle: Systolic function is normal with an ejection fraction of 55-60%. Pericardium: There is no pericardial effusion. Limited study with limited Doppler. Technically difficult study Left Ventricle Left ventricle is small. There is mild concentric increased wall thickness/hypertrophy. Systolic function is normal with an ejection fraction of 55-60%. No obvious regional wall motion abnormalities,however some segments are poorly visualized. Mitral Valve The mitral valve was not well visualized. Tricuspid Valve The tricuspid valve was not well visualized. Aortic Valve The aortic valve was not well visualized. Ascending Aorta The aortic root is mildly dilated. Pericardium There is no pericardial effusion. Study Details A limited echo was performed using limited 2D and color flow Doppler. Overall the study quality waspoor. The study had technical difficulties. The study was difficult due to patient's uncooperativeness, clinical status and unable to lay left lateral. Wall Scoring Baseline Score Index: 1.00 The left ventricular wall motion is normal.XCELERARadiology Study observation (narrative)[facility] SystemComprehensive metabolic panelon 10-16-2023 Albumin [Mass/Vol]3.3 g/dL3.2 - 5.3 g/dLDunlap Memorial Hospital Health SystemALP [Catalytic activity/Vol]93 U/L39 - 130 U/LProMedinfirmary ltac hospital Health SystemALT No additional P-5'-P [Catalytic activity/Vol]81 U/LHigh0 - 40 U/[facility] Health SystemAnion gap [Moles/Vol]9 mmol/L5 - 15 mmol/LPrMcKee Medical Center Health SystemAST [Catalytic activity/Vol]46 U/LHigh0 - 41 U/[facility] SystemBilirubin [Mass/Vol]0.9 mg/dL0.3 - 1.2 mg/dLMemorial Health SystemCalcium [Mass/Vol]10.1 mg/dL8.5 - 10.5 mg/dLMemorial Health SystemChloride [Moles/Vol]106 mmol/L98 - 109 mmol/L [facility] SystemCO2 [Moles/Vol]22 mmol/L22 - 32 mmol/[facility] SystemCreatinine [Mass/Vol]0.71 mg/dL0.70 - 1.20 mg/dLMem[facility] Health System Comment on above:METHOD TRACEABLE TO IDNE STANDARDeGFR (CKD-EPI)non-race dependent- [facility] HospitalComment on above: Reported eGFR is based on the CKD-EPI 2020 equation that does not use a race coefficient. Glucose [Mass/Vol]180 mg/sVEvhy73 - 99 mg/dLMemorial Health System Interpretation and review of laboratory resultsAbnormalMemorial Health System Potassium [Moles/Vol]3.9 mmol/L3.5 - 5.0 mmol/LProMedica Health SystemProtein [Mass/Vol]7.2 g/dL6.0 - 8.0 g/dLNovant Health Ballantyne Medical Centerodium [Moles/Vol]137 mmol/L134 - 146 mmol/LProMedica Chillicothe Va Medical Center SystemUrea nitrogen [Mass/Vol]24 mg/dL5 - 27 mg/dLEndless Mountains Health SystemsGlucose Glucometer (BldC) [Mass/Vol]on 48-14-8869Xildbib [Mass/Vol]175 mg/nOMqtw56 - 99 mg/dLSuburban [facility] Hospital & [facility] Hospital SystemInterpretation and review of laboratory resultsAbnormalEndless Mountains Health SystemsGlucose [Mass/Vol]128 mg/bCBtrc81 - 99 mg/dL [facility] SystemInterpretation and review of laboratory resultsAbnormal [facility] SystemsGlucose [Mass/Vol]206 mg/uPPobx23 - 99 mg/dLSuburban Community Hospital & [facility] Hospital SystemInterpretation and review of laboratory results AbnormalEndless Mountains Health SystemsGlucose [Mass/Vol]144 mg/hOUtlr83 - 99 mg/dLSuburban Community Hospital & Brent[facility] Hospital SystemInterpretation and review of laboratory resultsAbnoalEndless Mountains Health SystemsMR Brain WO contraston [id number]:MR BRAIN WO CONT INDICATION: Mental status change, unknown cause COMPARISON: 10/26/2022 TECHNIQUE: Axial diffusion sequences (be 0, 1000, and ADC map) BRAIN FINDINGS: Brain Parenchyma: No diffusion signal abnormality is appreciated to suggest acute infarct. No definite evidence of large parenchymal or extra-axial hemorrhage within the limited sequences provided. No definite mass, mass effect, or midline shift. No diffusion signal abnormality along the calvarium or extra cranial soft tissues. IMPRESSION: No evidence of acute infarct. Limited sequences demonstrate no additional abnormalities. Finalized by Fermin Flowers on 10/16/2023 10:39 Fermin Vallecillo MD - 10/16/2023 EXAM:MR BRAIN WO CONT INDICATION: Mental status change, unknown cause COMPARISON: 10/26/2022 TECHNIQUE: Axial diffusion sequences (be 0, 1000, and ADC map) BRAIN FINDINGS: Brain Parenchyma: No diffusion signal abnormality is appreciated to suggest acute infarct. No definite evidence of large parenchymal or extra-axial hemorrhage within the limited sequences provided. No definite mass, mass effect, or midline shift. No diffusion signal abnormality along the calvarium or extra cranial soft tissues. IMPRESSION: No evidence of acute infarct. Limited sequences demonstrate no additional abnormalities. Finalized by Fermin Flowers on 10/16/2023 10:39 AM [facility] SystemRadiology Study observation (narrative)[facility] Brain WO contrastOrdered By: Fermin Flowers on 26-68-9622WenLhiiviLouis Stokes Cleveland VA [facility] Center Work Phone: Magnesiumon 77-89-6258Zorjoecnh [Mass/Vol]1.8 mg/dL1.8 - 2.6 mg/dLMemorial Health SystemMagnesium [Mass/Vol]on 89-59-7902ZhsBblwiwLouis Stokes Cleveland VA Medical CenterGlucose Glucometer (BldC) [Mass/Vol]on 84-91-3622Jqanwcr [Mass/Vol] 150 mg/vZQofe02 - 99 mg/dLMemorial Health SystemInterpretation and review of laboratory resultsAbnoWilkes-Barre General HospitalGlucose [Mass/Vol]97 mg/dL65 - 99 mg/dLEndless Mountains Health Systems Glucose [Mass/Vol]90 mg/dL65 - 99 mg/dLEndless Mountains Health SystemsBlood gas, venouson 83-85-9542Xwdlnznq patency Wrist artery --pre arterial punctureMemorial Health SystemBase excess Calc (Bld) [Moles/Vol]1.0 mmol/L [facility] SystemCO2 (BldV) [Partial pressure]53.1 mm[Hg][facility] Medical CenterHCO3 (Bld) [Moles/Vol]28.2 mmol/LHLake Taylor Transitional Care Hospital Interpretation and review of laboratory resultsAbMohawk Valley Health System Oxygen (BldV) [Partial pressure]37 mm[Hg][facility] SystemOxygen therapy source and amount [CARE]RoomAirMemorial Health SystemOxygen/Inspired gas setting [Volume Fraction] Pkgwyukbxa64 %[facility] Health SystempH (BldV)7.334 [pH]7.320 - 7.420Novant Health Ballantyne Medical CenteraO2% Calculated from oxygen partial pressure (BldV) [Mass fraction]66.0 %Low80.0 - PINF %[facility] Specimen site NarrativeN/AProOhio Valley Hospitalpecimen type Nom (Spec)VENOUS [facility] SystemsCBC auto differentialon 10-14-2023 Basophils (Bld) [#/Vol]0.1 10*3/[facility] HospitalBasophils/100 WBC (Bld) 0.9 %[facility] SystemEosinophils (Bld) [#/Vol]0.3 10*3/[facility] HospitalEosinophils/100 WBC (Bld)3.6 %[facility] SystemErythrocyte distribution width (RBC) [Ratio]14.5 %11.5 - 15.0 %[facility] Hematocrit (Bld) [Volume fraction]39.4 %39 - 49 %[facility] Hemoglobin (Bld) [Mass/Vol]13.4 g/dL13.0 - 17.0 g/dLMemorial Health System Interpretation and review of laboratory resultsAbnormMercy Hospital Lymphocytes (Bld) [#/Vol]2.0 10*3/[facility] HospitalLymphocytes/100 WBC (Bld)25.1 %[facility] SystemMCH (RBC) [Entitic mass]31.5 pg27 - 34 pg [facility] SystemMCHC (RBC) [Mass/Vol]34.0 g/dL32 - 36 g/dLMemorial Health SystemMCV (RBC) [Entitic vol]93 fL80 - 100 [facility] Monocytes (Bld) [#/Vol]1.0 10*3/[facility] SaultMonocytes/100 WBC (Bld)12.5 %[facility] Health SystemNeutrophils (Bld) [#/Vol]4.6 10*3/[facility] HospitalNeutrophils/100 WBC (Bld)57.9 %[facility] SystemPlatelet mean volume (Bld) [Entitic vol]8.6 fL7 - 12 [facility] CenterPlatelets (Bld) [#/Vol]230 10*3/[facility] HospitalRBC (Bld) [#/Vol]4.26 10*6/[facility] HospitalWBC corrected for nucl RBC Auto (Bld) [#/Vol]8.0[facility] SystemSub[facility] & [facility] Hospital SystemCT Head WO contraston [id number] BRAIN WITHOUT CONTRAST COMPARISON: 11/15/2022 HISTORY: Transient alteration of awareness. TECHNIQUE: Unenhanced axial images of the brain were obtained. Automatic exposure control (AEC) wasutilized. FINDINGS: There is no evidence for acute intracranial hemorrhage. Previously seen left subdural fluid collection has resolved. There is no hydrocephalus, mass effect, or midline shift. Jones-white differentiation is preserved with no CT evidence for an acute infarct. 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 There are multifocal areas of low- attenuation throughout the periventricular and subcortical white matter of both cerebral hemispheres which are nonspecific, but are most likely sequela of chronic small vessel ischemia. No acute fracture. IMPRESSION: No evidence for an acute intracranial process. Chronic changes detailed above. All CT scans at this facility use dose modulation, iterative reconstruction, and/or weight based dosing when appropriate to reduce radiation dose to as low as reasonably achievable. Finalized by Deo Harrison MD on 10/14/2023 11:44 [facility], Deo Nowak MD - 10/14/2023 CT BRAIN WITHOUT CONTRAST COMPARISON: 11/15/2022 HISTORY: Transient alteration of awareness. TECHNIQUE: Unenhanced axial images of the brain were obtained. Automatic exposure control (AEC) wasutilized. FINDINGS: There is no evidence for acute intracranial hemorrhage. Previously seen left subdural fluid collection has resolved. There is no hydrocephalus, mass effect, or midline shift. Jones-white differentiation is preserved with no CT evidence for an acute infarct. 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 There are multifocal areas of low- attenuation throughout the periventricular and subcortical white matter of both cerebral hemispheres which are nonspecific, but are most likely sequela of chronic small vessel ischemia. No acute fracture. IMPRESSION: No evidence for an acute intracranial process. Chronic changes detailed above. All CT scans at this facility use dose modulation, iterative reconstruction, and/or weight based dosing when appropriate to reduce radiation dose to as low as reasonably achievable. Finalized by Deo Harrison MD on 10/14/2023 11:44 PM [facility] SystemRadiology Study observation (narrative)[facility] Vapps SystemCT Head WO contrastOrdered By: Deo Harrison on [id number] Stokes [facility] Work Phone: Comprehensive metabolic panelon [id number] [Mass/Vol]3.2 g/dL3.2 - 5.3 g/dLProCrestwood Medical Center Health SystemALP [Catalytic activity/Vol]85 U/L39 - 130 U/LPrMcKee Medical Center Health SystemALT No additional P-5'-P [Catalytic activity/Vol]72 U/LHigh0 - 40 U/LPrMcKee Medical Center Health SystemAnion gap [Moles/Vol]6 mmol/L5 - 15 mmol/LPrMcKee Medical Center Health SystemAST [Catalytic activity/Vol]44 U/LHigh0 - 41 U/[facility] SystemBilirubin [Mass/Vol]0.5 mg/dL0.3 - 1.2 mg/dLProLancaster Municipal Hospital SystemCalcium [Mass/Vol]9.7 mg/dL8.5 - 10.5 mg/dLSuburban Community Hospital & [facility] SystemChloride [Moles/Vol]105 mmol/L98 - 109 mmol/L [facility] SystemCO2 [Moles/Vol]26 mmol/L22 - 32 mmol/LPrUniversity Hospitals Geneva [facility] SystemCreatinine [Mass/Vol]0.82 mg/dL0.70 - 1.20 mg/dLSuburban Community Hospital & [facility] System Comment on above:METHOD TRACEABLE TO IDNE STANDARDeGFR (CKD-EPI)non-race dependent- [facility] HospitalComment on above: Reported eGFR is based on the CKD-EPI 2020 equation that does not use a race coefficient. Glucose [Mass/Vol]108 mg/lPVekc20 - 99 mg/dLMemorial Health System Interpretation and review of laboratory resultsAbnormalProMercy Health St. Anne [facility] Potassium [Moles/Vol]3.7 mmol/L3.5 - 5.0 mmol/LProMedica Health SystemProtein [Mass/Vol]7.2 g/dL6.0 - 8.0 g/dLSuburban Community Hospital & [facility] SystemSodium [Moles/Vol]137 mmol/L134 - 146 mmol/LProMedinfirmary ltac hospital Health SystemUrea nitrogen [Mass/Vol]23 mg/dL5 - 27 mg/dLMemorial Health SystemECG 12 leadon [id number] Health SystemEthanolon 60-83-0136Cnbjrvn [Mass/Vol]g/dL0.00 - 0.08 g/dLMemorial Health SystemComment on above: This report is intended for use in clinical monitoring or management of patients. Laboratory - Microbiology and Antimicrobial susceptibilityon 10-14-2023 FLUAV+FLUBV RNA EVERT+probe Ql (Unsp spec)NegativeNegative^NegativeMemorial Health SystemMagnesiumon 69-05-0201Kaxtlezgq [Mass/Vol]1.9 mg/dL1.8 - 2.6 mg/dL [facility] SystemNo Panel Informationon [id number] HealthPOCT Nursing Urine Macroscopic UAon 37-37-3113Uldlcgzee Ql (U)NegativeNegative^NegativeMemorial Health SystemGlucose [Mass/Vol]Negative Negative^Negative mg/dLMemorial Health SystemHemoglobin Ql (U)Negative Negative^NegativeMemorial Health SystemInterpretation and review of laboratory resultsAbnormalMemorial Health SystemKetones (U) [Mass/Vol]Negative Negative^Negative mg/dLMemorial Health SystemLeukocyte esterase Test strip Ql (U)NegativeNegative^NegativeMemorial Health SystemNitrite Ql (U)Negative Negative^NegativeMemorial Health SystempH (U)6.0 [pH]5.0 - 8.5PLouis Stokes Cleveland VA Medical CenterProtein Ql (U)100 mg/dLAbnormalNegative^NegativeMemorial Health System Specific gravity (U) [Rel density]1.0251.003 - 1.035[facility] Urobilinogen Qn (U)0.2NINFUniversity Health Lakewood Medical CenterARS/FLU A+B/RSV by NAAT/Molecular (M4RT Collection Tube)on [id number] RNA EVERT+probe Nom (Unsp spec)NegativeNegative^NegativeNovant Health Ballantyne Medical CenterARS-CoV-2 (COVID-19) RNA EVERT+probe Ql (Resp)Not detectedNot Detected^Not DetectedMemorial Health SystemComment on above:NOTE The Xpert Xpress SARS-CoV-2/Flu/RSV Plus test is a rapid, multiplexed real-time RT-PCR test intended for the simultaneous qualitative detection and differentiation of SARS-CoV-2, influenza A, influenza B and respiratory syncytial virus (RSV) viral RNA from individuals suspected of respiratory viral infection consistent with COVID-19 by their healthcare provider. This test has not been validated in asymptomatic patients. The Xpert Xpress SARS-CoV-2 test is intended for use by qualified and trained operators who are performing tests using either [employer] or [employer] systems and is limited to laboratories that meet the CLIA requirements to perform high and moderate complexity tests. The Xpert Xpress SARS-CoV-2/Flu/RSV Plus is only for use under the Food and Drug Administration's Emergency Use Authorization. Results are for the simultaneous detection and differentiation of SARS-CoV-2, influenza A, influenza B and RSV nucleic acids in clinical specimens. SARS-CoV-2, influenza A, influenza B and RSV RNA identified by this test are generally detectable in upper respiratory samples during the acute phase of infection. Positive results are indicative of the presence of the identified virus, but do not rule out bacterial infection or co-infection with other pathogens not detected by this test. Clinical correlation with patient history and other diagnostic information is necessary to determine patient infection status. The agent detected may not be the definite cause of disease. Negative results do not preclude SARS-CoV-2, influenza A, influenza B and RSV infection and should not be used as the sole basis for treatment or other patient management decisions. Negative results must be combined with clinical observations, patient history and epidemiological information. An Invalid result may occur with specimen-associated inhibition unable to be resolved with specimen repeat. Fact Sheet for Healthcare Providers: https://www.fda.gov/media/715277/download Fact Sheet for Patients: https://www.fda.gov/media/599305/download [facility] SystemThyroid profile includes TSH FT4on 20-55-7544Rppz T4 [Mass/Vol]0.82 ng/dL0.61 - 1.60 ng/dLNovant Health Brunswick Medical Center Qn2.62 m[IU]/L [facility] SystemsTroponin Ion 04-22-6709Yxrwsbnz I.cardiac [Mass/Vol]0.01 ng/mL0.00 - 0.04 ng/mLMemorial Health SystemXR Chest Single viewon [id number] ONE VIEW COMPARISON: 11/10/2022 HISTORY: Rales over R lower chest, altered mental status. FINDINGS: Portable AP chest radiograph demonstrates interstitial and ill-defined airspace opacities at both lung bases with more focal opacity at the lateral left lung base. The cardiomediastinal silhouette and pulmonary vasculature are within normal limits. No evidence for a pneumothorax or pleural effusion. IMPRESSION: Interstitial and ill-defined airspace spaces of both lung bases with more focal nodular opacity lateral left lung base. Findings most likely sequelae of multifocal pneumonia or aspiration. Pczba-sagxcmgqou-lv PA and lateral chest radiographs in 6-8 weeks after appropriate therapy recommended to ensure resolution of the airspace opacities. Finalized by Deo Harrison MD on 10/14/2023 11:22 PMSElmira Psychiatric CenterDeo MD - 10/14/2023 CHEST ONE VIEW COMPARISON: 11/10/2022 HISTORY: Rales over R lower chest, altered mental status. FINDINGS: Portable AP chest radiograph demonstrates interstitial and ill-defined airspace opacities at both lung bases with more focal opacity at the lateral left lung base. The cardiomediastinal silhouette and pulmonary vasculature are within normal limits. No evidence for a pneumothorax or pleural effusion. IMPRESSION: Interstitial and ill-defined airspace spaces of both lung bases with more focal nodular opacity lateral left lung base. Findings most likely sequelae of multifocal pneumonia or aspiration. Bmylo-hulerxbqdy-fy PA and lateral chest radiographs in 6-8 weeks after appropriate therapy recommended to ensure resolution of the airspace opacities. Finalized by Deo Harrison MD on 10/14/2023 11:22 PM [facility] SystemsRadiology Study observation (narrative)[facility] SystemALL PRO BNPon 50-14-3415Bethhkqvqbc peptide B (Bld) [Mass/Vol]149 pg/mLNINF - 300 pg/mLNOMS HealthcareComment on above: An age-independent cutoff point of 300 pg/ml has a 98% negative predictive value excluding acute heart failure. Original Ordering Provider: BECKIE YUSUF [facility] HospitalBrain Natri. Peptideon [id number] peptide B (Bld) [Mass/Vol]149 pg/mLNormal <300U[facility] Medical Center HospitalComment on above:Result Comment: An age-independent cutoff point of 300 pg/ml has a 98% negative predictive value excluding acute heart failure.Performed By: #### BNP #### [facility] [address] [place] [address] [place] [address] Supervisor Contact Lens: Felix Prasad MDBrain Natriuretic Peptideon [id number] peptide B (Bld) [Mass/Vol]149 pg/mLNINF - 300 pg/mLRIVERSIDE HEALTH SYSTEM Comment on above: An age-independent cutoff point of 300 pg/ml has a 98% negative predictive value excluding acute heart failure. [facility]ON THE SUR[facility] HOS[facility]ITAL AT SOUTHWOODSCult,Urineon [id number],UrineSpecimen Description .VOIDED URINE Culture NO SIGNIFICANT GROWTH Report Status FINAL 09/18/2023NormBarberton Citizens HospitalComment on above: Performed By: #### URC #### [facility] [address] [place], [place] [id number] Supervisor Contact Lens: Trever Reed MD [facility] [address] [place] [address] [place] [address] Supervisor Contact Lens: GINNY Narvaez URINALYSISon 41-77-6580OCZT BILIRUBIN, SEMIQT,URNegativeNEGNOMercy Hospital JoplinPT BLOOD, URINENegativeNEGNOThe Rehabilitation InstitutePT CLARITY, URINEClearCLEARNOMercy Hospital JoplinPT COLORYellowYELChristian HospitalPT GLUCOSE,SEMI-QNT,URNegativeNEG mg/dLNOMercy Hospital JoplinPT KETONES, URINE NegativeNEG mg/dLMadison Medical CenterPT LEUKOCYTE ESTERASENegativeNEGMadison Medical CenterPT NITRITE,URNegativeNEGNOMercy Hospital JoplinPT PH,UR6.55.0 - 9.0NONE HealthcarePT PROTEIN, SEMI-QNT,URNegativeNEG mg/dLNONE HealthcarePT SPEC. GRAVITY,UR1.0151.010 - 1.020NONE HealthcarePT UROBILINOGEN,URNormal0.0 - 1.0 EU/dLNONE HealthcareOriginal Ordering Provider: LA Peña NP [facility] HealthcareUrinalysis, Routineon [id number], SemiQt,UrNegativeNormalNEG [facility] HospitalComment on above:Performed By: #### UA #### [facility] [address] [place] [address] Dr. Wallace, [facility] Supervisor Contact Lens: Tania Narvaez, UrineNegativermalMagruder Hospital Comment on above:Performed By: #### UA #### [facility] [address] [place] [address] Dr. Wallace, [facility] Supervisor Contact Lens: Sorin Narvaezrity (ClearNormalCLEARBlanchard Valley Health System [facility] Comment on above:Performed By: #### UA #### [facility] [address] [place] [address] Dr. Wallace, [facility] Supervisor Contact Lens: JOSEY Narvaezolor (YellowNoalYKindred Hospital Lima Comment on above:Performed By: #### UA #### [facility] [address] [place] [address] Dr. [place], [place] [address] Supervisor Contact Lens: Felix Prasad MDGlucose Ql (U)NegativeNormalNEGBlanchard Valley Health System Blanch[facility] Valley HospitalComment on above:Performed By: #### UA #### [facility] [address] [place], [facility] Supervisor Contact Lens: Felix Prasad MDKetones Ql (U)NegativeNormalNEGBlanchard Valley Health System [facility] Valley HospitalComment on above:Performed By: #### UA #### [facility] [address] [place] [address] Dr. Wallace, [facility] Supervisor Contact Lens: Felix Prasad MDLeukocyte esterase Test strip Ql (U)NegativeNormal NEGBlanchard Valley Health System [facility] Valley HospitalComment on above:Performed By: #### UA #### [address] [place], [place] [id number] Supervisor Contact Lens: Felix Prasad MDNitrite,UrNegativeNormalNEGBlanchard Valley Health System [facility] Comment on above:Performed By: #### UA #### [facility] [address] [place] [address] [place] [address] Supervisor Contact Lens: UDAY Narvaez,Ur6.1Eqzxoq5.0-9.0[facility] Valley HospitalComment on above:Performed By: #### UA #### [address] [place] [address] Supervisor Contact Lens: UDAY Narvaezrotein Ql (U)NegativeNormalNEGBlanchard Valley Health System [facility] Valley HospitalComment on above:Performed By: #### UA #### [address] [place] [address] Supervisor Contact Lens: EVELIN Narvaezpec. [place],Ur1.300Hcqint4.010-1.020[facility] Valley HospitalComment on above:Performed By: #### UA #### [address] [place] [address] Supervisor Contact Lens: Shawanda Narvaezbilinogen,UrNormalNormal0.0-1.0[facility] Valley HospitalComment on above:Performed By: #### UA #### [address] [place] [address] Supervisor Contact Lens: JUAN MANUEL Narvaez with Diffon [id number]. Basophil0.08 k/uL Normal0.00-0.20[facility] HospitalComment on above:Performed By: #### CDP #### [facility] [address] [place] [address] Dr[place] [id number] Supervisor Contact Lens: Krupa Narvaez.Imm.Granulocyte0.12 k/uLNormal0.00-0.30[facility] HospitalComment on above:Performed By: #### CDP #### [address] [place] [id number] Supervisor Contact Lens: Krupa Narvaez.Neutrophil (Seg)6.52 k/uLNormal1.50-8.10[facility] HospitalComment on above:Performed By: #### CDP #### [address] [place] [address] Supervisor Contact Lens: Felix Prasad MDBasophils/100 WBC (Bld)1 %Normal0-2MMartin Memorial Hospital HospitalComment on above:Performed By: #### CDP #### [address] [place] [address] Supervisor Contact Lens: Felix Prasad MDEosinophils (Bld) [#/Vol]0.71 10*3/uLHigh0.00-0.44 [facility] HospitalComment on above:Performed By: #### CDP #### [address] [place] [address] Supervisor Contact Lens: Felix Prasad MDEosinophils/100 WBC (Bld)7 %High1-4[facility] HospitalComment on above:Performed By: #### CDP #### [address] [place], [facility] Supervisor Contact Lens: Felix Prasad MDErythrocyte distribution width (RBC) [Ratio]14.3 % Tghseb32.8-14.4[facility] HospitalComment on above:Performed By: #### CDP #### [address] [place] [id number] Supervisor Contact Lens: Felix Prasad MDHematocrit (Bld) [Volume fraction]40.5 %Low 40.7-50.3Mer[facility] Reading HospitalComment on above:Performed By: #### CDP #### [address] [place], [place] [id number] Supervisor Contact Lens: Felix Prasad MDHemoglobin (Bld) [Mass/Vol]14.1 g/dLNormal 13.0-17.0[facility] HospitalComment on above:Performed By: #### CDP #### [address] [place], [place] [address]83 Supervisor Contact Lens: Felix Prasad MDImmature granulocytes/100 WBC (Bld)1 %Bwxg4GvcwqUc Medical Center HospitalComment on above:Performed By: #### CDP #### [address] [place], [place] [address] Supervisor Contact Lens: Felix Prasad MDLymphocytes (Bld) [#/Vol]2.61 10*3/uLNormal 1.10-3.70[facility] HospitalComment on above:Performed By: #### CDP #### [address] [place], [place] [address]83 Supervisor Contact Lens: Jane Narvaezmphocytes/100 WBC (Bld)24 %Rwhfbv65-15Jwxqu Tiffin HospitalComment on above:Performed By: #### CDP #### [address] [place], [place] [address]83 Supervisor Contact Lens: GHANSHYAM NarvaezCH (RBC) [Entitic mass]31.9 maTrcdwb90.2-33.5 [facility] HospitalComment on above:Performed By: #### CDP #### [address] [place] [address] Supervisor Contact Lens: GHANSHYAM NarvaezCHC (RBC) [Mass/Vol]34.8 g/pJQwamrl30.4-34.8Mer[facility] HospitalComment on above:Performed By: #### CDP #### [address] [place] [address] Supervisor Contact Lens: GHANSHYAM NarvaezCV (RBC) [Entitic vol]91.6 cJXnhjbc96.6-102.9 [facility] HospitalComment on above:Performed By: #### CDP #### [address] [place] [address] Supervisor Contact Lens: GHANSHYAM Narvaezonocytes (Bld) [#/Vol]0.94 10*3/uLNormal0.10-1.20 [facility] HospitalCombaraga county memorial hospital on above:Performed By: #### CDP #### [address] [place] [address] Supervisor Contact Lens: GHANSHYAM Narvaezonocytes/100 WBC (Bld)9 %Normal3-12[facility] HospitalComment on above:Performed By: #### CDP #### [address] [place] [address] Supervisor Contact Lens: Felix Prasad MDNeutrophil (Seg)58 %Nwzdsv07-52CgemqHartford Hospital on above:Performed By: #### CDP #### [address] [place] [address] Supervisor Contact Lens: Felix Prasad MDNRBC Automated0.0 per 100 WBCNormal0.0[facility] HospitalCombaraga county memorial hospital on above:Performed By: #### CDP #### [address] [place] [address] Supervisor Contact Lens: UDAY Narvaezlatelet mean volume (Bld) [Entitic vol]10.4 fL Normal8.1-13.5[facility] HospitalComment on above:Performed By: #### CDP #### [address] [place], [place] [id number] Supervisor Contact Lens: Shannon Narvaez ([facility]) [#/Vol]332 10*3/sYBxqlgh607-108 [facility] HospitalComment on above:Performed By: #### CDP #### [address] [place] [address] Supervisor Contact Lens: HUMAIRA NarvaezBC ([facility]) [#/Vol]4.42 10*6/uLNormal4.21-5.77[facility] Centercy Reading HospitalComment on above:Performed By: #### CDP #### [address] [place], [place] [address]83 Supervisor Contact Lens: ANDREW Narvaez ([facility]) [#/Vol]11.0 10*3/uLNormal3.5-11.3Mer[facility] Reading HospitalComment on above:Performed By: #### CDP #### [address] [place] [address] Supervisor Contact Lens: Felix Prasad MDCT ABDOMEN PELVIS W IV CONTRASTon [id number] ABDOMEN PELVIS W IV CONTRASTEXAMINATION: CT OF THE ABDOMEN AND PELVIS WITH [...] of bowel obstruction. No evidence of appendicitis. Peritoneum/Retroperitoneum: Normal PELVIS Normal reproductive organs Bones/Soft Tissues: [...] Signed by: Antoine Still MD 09/06/23 Final resultNormalMercy Lawrence+Memorial Hospital with Auto Differentialon 09-06-2023 Basophils (Bld) [#/Vol]0.06 10*3/uLBON SECOURS MERCY HEALTHBasophils/100 WBC (Bld)0 %0 - 2 %[facility] HEALTHEosinophils (Bld) [#/Vol]0.77 10*3/uLHigh [facility] HEALTHEosinophils/100 WBC (Bld)5 %High1 - 4 %[facility]CY HEALTHErythrocyte distribution width (RBC) [Ratio]14.2 %11.8 - 14.4 %[facility]CY HEALTHHematocrit (Bld) [Volume fraction]38.4 %Low40.7 - 50.3 %[facility] HEALTHHemoglobin (Bld) [Mass/Vol]13.4 g/dL13.0 - 17.0 g/dLBON SECOURS MADISON HEALTHY HEALTHImmature granulocytes (Bld) [#/Vol]0.05 10*3/uLBON SECOURS MADISON HEALTHY HEALTHImmature granulocytes/100 WBC (Bld)0 %0[facility] Interpretation and review of laboratory resultsAbnormalBON [facility]ALTH Lymphocytes/100 WBC (Bld)15 %Low24 - 43 %[facility] CHERRINGTON HOSPITALLymphocytes/100 WBC (Bld)2.37 %BON SECOHIO [facility] MEDICAL CENTERH (RBC) [Entitic mass]31.2 pg25.2 - 33.5 pgBON SECOURS BERGER HOSPITALHC (RBC) [Mass/Vol]34.9 g/sTJrgk92.4 - 34.8 g/dLBON SECSELECT MEDICAL CLEVELAND CLINIC REHABILITATION HOSPITAL, AVONMCV (RBC) [Entitic vol]89.5 fL82.6 - 102.9 fLBON SECOURS CHERRINGTON HOSPITALMonocytes/100 WBC (Bld)5 %3 - 12 %[facility] Monocytes/100 WBC (Bld)0.79 %[facility] HOSPITALNeutrophils/100 WBC (Bld)75 %High36 - 65 %[facility] HOSPITALNucleated RBC/100 WBC (Bld) [Ratio]0.0 % 0.0 per 100 WBCBON SECOURS MADISON HEALTHY HEALTHPlatelet mean volume (Bld) [Entitic vol] 11.8 fL8.1 - 13.5 fLBON SECOURS MADISON HEALTHY HEALTHPlatelets (Bld) [#/Vol]279 10*3/uL [facility]ALTH[facility] HEALTHRBC (Bld) [#/Vol]4.29 10*6/uL4.21 - 5.77 m/uLBON SECOURS CHERRINGTON HOSPITALSegmented neutrophils/100 WBC (Bld)12.17 %HighBON SECOURS CHERRINGTON HOSPITALWBC other (Bld) [#/Vol]16.2HighBON SECOURS MADISON HEALTHY HEALTHBON SEC[facility]ALTHY HEALTHCBC with Diffon 12-69-1228Urx. Basophil0.06 k/uLNormal0.00-0.20[facility] HospitalComment on above:Performed By: #### TAVIA ALY, CDP #### [address] [place] [address] Supervisor Contact Lens: MDAbs. SolangeImm.Granulocyte0.05 k/uLNormal0.00-0.30MerRiverview Health Institute HospitalComment on above:Performed By: #### TAVIA ALY, CDP #### [address] [place] [address] Supervisor Contact Lens: Krupa Narvaez.Neutrophil (Seg)12.17 k/uLHigh1.50-8.10[facility] HospitalComment on above:Performed By: #### TAVIA ALY, CDP #### [address] [place], [place] [address] Supervisor Contact Lens: Felix Prasad MDBasophils/100 WBC (Bld)0 %Normal0-2MMartin Memorial Hospital HospitalComment on above:Performed By: #### TAVIA ALY, CDP #### [address] [place], [place] [address] Supervisor Contact Lens: Felix Prasad MDEosinophils (Bld) [#/Vol]0.77 10*3/uLHigh0.00-0.44 [facility] HospitalComment on above:Performed By: #### TAVIA ALY, CDP #### [address] [place], [facility] Supervisor Contact Lens: ZURI Narvaezosinophils/100 WBC (Bld)5 %High1-4[facility] HospitalComment on above:Performed By: #### TAVIA ALY, CDP #### [address] [place] [address] Supervisor Contact Lens: Felix Prasad MDErythrocyte distribution width (RBC) [Ratio]14.2 % Objmgr26.8-14.4[facility] HospitalComment on above:Performed By: #### TAVIA ALY, CDP #### [address] [place] [address] Supervisor Contact Lens: Felix Prasad MDHematocrit (Bld) [Volume fraction]38.4 %Low 40.7-50.3[facility] Reading HospitalComment on above:Performed By: #### JERMAIN CP, CDP #### [address] [place] [address] Supervisor Contact Lens: Felix Prasad MDHemoglobin (Bld) [Mass/Vol]13.4 g/dLNormal 13.0-17.0[facility] HospitalComment on above:Performed By: #### TAVIA ALY, CDP #### [address] [place], [place] [address] Supervisor Contact Lens: Felix Prasad MDImmature granulocytes/100 WBC (Bld)0 %Dcpaqb3Mdmzs Tiffin HospitalComment on above:Performed By: #### TAVIA ALY, CDP #### [address] [place], [place] [address] Supervisor Contact Lens: Felix Prasad MDLymphocytes (Bld) [#/Vol]2.37 10*3/uLNormal 1.10-3.70[facility] HospitalComment on above:Performed By: #### JERMAIN CP, CDP #### [address] [place], [place] [address] Supervisor Contact Lens: Jane Narvaezmphocytes/100 WBC (Bld)15 %Bym75-06ZapjiBlanchard Valley Health System [facility] HospitalComment on above:Performed By: #### JERMAIN CP, CDP #### [address] [place], [facility] Supervisor Contact Lens: GHANSHYAM NarvaezCH (RBC) [Entitic mass]31.2 ydItbgbc49.2-33.5 [facility] HospitalComment on above:Performed By: #### TAVIA ALY, CDP #### [address] [place] [address] Supervisor Contact Lens: GHANSHYAM NarvaezCHC (RBC) [Mass/Vol]34.9 g/jKUvnc13.4-34.8[facility]ard [facility] HospitalComment on above:Performed By: #### TAVIA ALY, CDP #### [address] [place] [address] Supervisor Contact Lens: GHANSHYAM NarvaezCV (RBC) [Entitic vol]89.5 dFVnwvhp48.6-102.9 [facility] HospitalComment on above:Performed By: #### TAVIA ALY, CDP #### [address] [place] [address] Supervisor Contact Lens: GHANSHYAM Narvaezonocytes (Bld) [#/Vol]0.79 10*3/uLNormal0.10-1.20 [facility] HospitalComment on above:Performed By: #### TAVIA ALY, CDP #### [address] [place] [address] Supervisor Contact Lens: GHANSHYAM Narvaezonocytes/100 WBC (Bld)5 %Normal3-12[facility] HospitalComment on above:Performed By: #### TAVIA ALY, CDP #### [address] [place] [address] Supervisor Contact Lens: Felix Prasad MDNeutrophil (Seg)75 %Nbbp20-76ZxatoBlanchard Valley Health System [facility] Comment on above:Performed By: #### TAVIA ALY, CDP #### [address] [place] [address] Supervisor Contact Lens: Felix Prasad MDNRBC Automated0.0 per 100 WBCNormal0.0[facility] HospitalComment on above:Performed By: #### TAVIA ALY, CDP #### [address] [place] [address] Supervisor Contact Lens: Nadia Narvaez mean volume (Bld) [Entitic vol]11.8 fL Normal8.1-13.5[facility] HospitalComment on above:Performed By: #### TAVIA ALY, CDP #### [address] [place] [address] Supervisor Contact Lens: Shannon Narvaez (Bld) [#/Vol]279 10*3/bVHjrynl187-908 [facility] HospitalComment on above:Performed By: #### TAVIA ALY, CDP #### [address] [place], [facility] Supervisor Contact Lens: HUMAIRA NarvaezBC (Bld) [#/Vol]4.29 10*6/uLNormal4.21-5.77[facility] HospitalComment on above:Performed By: #### TAVIA ALY, CDP #### [address] [place] [address] Supervisor Contact Lens: ANDREW Narvaez (Bld) [#/Vol]16.2 10*3/uLHigh3.5-11.3Mmercy health anderson hospitaly Reading HospitalComment on above:Performed By: #### TAVIA AYL, CDP #### [address] [place] [address] Supervisor Contact Lens: Felix Prasad MDCT Abdomen and Pelvis W contrast Lola . Multifocal consolidations and tree-in-bud nodules are seen [...] outlet obstruction. Endoscopic correlation may be needed. [facility] CONSOLIDATEDEXAMINATION: CT OF THE ABDOMEN AND PELVIS WITH [...] of bowel obstruction. No evidence of appendicitis. Peritoneum/Retroperitoneum: Normal PELVIS Normal reproductive organs Bones/Soft Tissues: No acute osseous abnormality is seen. Degenerative changes are seen in the lower lumbar spine. L2 compression deformity is seen with post augmentation changes. Left hip replacement hardware is noted. No soft tissue swelling is seen. [facility] Antoine Cutler MD - 09/06/2023 EXAMINATION: CT OF THE [...] of bowel obstruction. No evidence of appendicitis. Peritoneum/Retroperitoneum: Normal PELVIS Normal reproductive organs Bones/Soft Tissues: [...] outlet obstruction. Endoscopic correlation may be needed. [facility] SYSTEMRadiology Study observation (narrative)[facility] Abdomen and Pelvis W contrast IVOrdered By: Antoine Still on [id number] [facility] Work Phone: Comp Metabolic Profon 53-93-5916Uosmtvk [Mass/Vol]3.1 g/dLLow3.5-5.2[facility] HospitalComment on above:Performed By: #### TAVIA ALY, CDP #### [address] [place], [place] [id number] Supervisor Contact Lens: Felix Prasad MDAlbumin/Glob Ratio1.4Xcmwzv8.0-2.5[facility] HospitalComment on above:Performed By: #### TAVIA ALY, CDP #### [address] [place], [place] [address]83 Supervisor Contact Lens: Fredo Narvaez Egpn843 U/LBmap46-623OnyrwBlanchard Valley Health System [facility] HospitalComment on above:Performed By: #### TAVIA ALY, CDP #### [address] [place] [address] Supervisor Contact Lens: Felix Prasad MDALT [Catalytic activity/Vol]23 U/LNormal5-41[facility] HospitalComment on above:Performed By: #### TAVIA ALY, CDP #### [address] [place] [address] Supervisor Contact Lens: Felix Prasad MDAnival gap [Moles/Vol]9 mmol/LNormal9-17[facility] HospitalComment on above:Performed By: #### LIP CP, CDP #### [address] [place], [place] [address] Supervisor Contact Lens: Felix Prasad MDAST [Catalytic activity/Vol]20 U/LNormal<40[facility] HospitalComment on above:Performed By: #### TAVIA ALY, CDP #### [facility] [address] [place] [address] Dr[address] [place], [place] [id number] Supervisor Contact Lens: Felix Prasad MDBilirubin [Mass/Vol]0.2 mg/dLLow0.3-1.2MercUniversity Hospitals Portage Medical Center HospitalComment on above:Performed By: #### TAVIA ALY, CDP #### [facility] [address] [place] [address] [place] [address] Supervisor Contact Lens: Felix Prasad MDBUN/CRE Kofrr30Sqgr0-50GyyhgBlanchard Valley Health [facility] Comment on above:Performed By: #### TAVIA ALY, CDP #### [address] [place], [place] [address]83 Supervisor Contact Lens: JOSEY Narvaezalcium [Mass/Vol]9.7 mg/dLNormal8.6-10.4MerRiverview Health Institute HospitalComment on above:Performed By: #### TAVIA ALY, CDP #### [address] [place], [place] [address]83 Supervisor Contact Lens: JOSEY Narvaezhloride [Moles/Vol]101 mmol/XTzmxsv61-752Pvovi [facility]iffin HospitalComment on above:Performed By: #### TAVIA ALY, CDP #### [facility] [address] [place] [address] [place] [address] Supervisor Contact Lens: Felix Prasad MDCO2 [Moles/Vol]26 mmol/HAzhbcx24-28Kzbgs [facility]in HospitalComment on above:Performed By: #### TAVIA ALY, CDP #### [address] [place], [place] [address]83 Supervisor Contact Lens: JOSEY Narvaezreatinine [Mass/Vol]0.8 mg/dLNormal0.7-1.2MUniversity Hospitals Conneaut Medical CenterComment on above:Performed By: #### TAVIA ALY, CDP #### [address] [place] [address] Supervisor Contact Lens: Felix Prasad MDGFR/1.73 sq M.predicted among non-blacks MDRD (S/P/Bld) [Vol rate/Area]mL/min/{1.73_m2}Normal>60[facility] HospitalComment on above:Result Comment: These results are not intended for [...] or following therapy that affects renal tubular secretion.Performed By: #### TAVIA ALY, CDP #### [address] [place], [facility] Supervisor Contact Lens: Felix Prasad MDGlucose [Mass/Vol]257 mg/oISrmh13-56Comgw Hartford HospitalComment on above:Performed By: #### TAVIA ALY, CDP #### [address] [place] [address] Supervisor Contact Lens: UDAY Narvaezotassium [Moles/Vol]4.3 mmol/LNormal3.7-5.3[facility] Reading HospitalComment on above:Performed By: #### TAVIA ALY, CDP #### [address] [place] [address] Supervisor Contact Lens: Felix Prasad MDProtein [Mass/Vol]6.2 g/dLLow6.4-8.3Mmercy health anderson hospitaly Hartford HospitalComment on above:Performed By: #### TAVIA ALY, CDP #### [address] [place] [address] Supervisor Contact Lens: Felix Prasad MDSodium [Moles/Vol]136 mmol/ORwejgf549-533SfaquBlanchard Valley Health System [facility] HospitalComment on above:Performed By: #### TAVIA ALY, CDP #### [facility] [address] [place] [address] Supervisor Contact Lens: Felix Prasad MDUrea nitrogen [Mass/Vol]22 mg/dLNormal8-23[facility] HospitalComment on above:Performed By: #### TAVIA ALY, CDP #### [facility] [address] [place] [address] Supervisor Contact Lens: Felix Prasad [facility] DURANTomprehensive Metabolic Panelon 15-67-2393Gwdhkui [Mass/Vol]3.1 g/dLLow3.5 - 5.2 g/dLBON [facility]ODSAlbumin/Globulin [Mass ratio]1.0 {ratio}1.0 - 2.5B[facility] HEALTHALP [Catalytic activity/Vol]242 U/LHigh40 - 129 U/LBON [facility] HEALTHALT [Catalytic activity/Vol]23 U/L5 - 41 U/LBON [facility] SUR[facility]WOODSAnion gap [Moles/Vol]9 mmol/L9 - 17 mmol/LBON [facility] HEALTHAST [Catalytic activity/Vol]20 U/L NINF - 40 U/LBON THE SUR[facility]OSPITAL AT SOUTHWOODSBilirubin [Mass/Vol]0.2 mg/dLLow0.3 - 1.2 mg/dLBON [facility] HEALTHCalcium [Mass/Vol]9.7 mg/dL8.6 - 10.4 mg/dLBON [facility] SUR[facility]WOODSChloride [Moles/Vol]101 mmol/L98 - 107 mmol/LBON THE SURGICAL HOSPITAL AT SOUTHWOODSCO2 [Moles/Vol]26 mmol/L20 - 31 mmol/LBON [facility] Creatinine [Mass/Vol]0.8 mg/dL0.7 - 1.2 mg/dLBON [facility] HEALTHGFR/1.73 sq M.predicted MDRD (S/P/Bld) [Vol rate/Area]- PINFBON THE SURGICAL [facility]OSPITAL AT SOUTHWOODSComment on above: These results are not intended [...] therapy that affects renal tubular secretion. Glucose [Mass/Vol]257 mg/eFAeup35 - 99 mg/dLBON [facility] Interpretation and review of laboratory resultsAbnormalBON [facility] Potassium [Moles/Vol]4.3 mmol/L3.7 - 5.3 mmol/LBON [facility] SUR[facility]ODSProtein [Mass/Vol]6.2 g/dLLow6.4 - 8.3 g/dLBON THE SUR[facility]OS[facility]ODSSodium [Moles/Vol]136 mmol/L135 - 144 mmol/LBON THE SURGICAL HOSPITAL AT SOUTHWOODSUrea nitrogen [Mass/Vol]22 mg/dL8 - 23 mg/dLBON THE SURGICAL HOSPITAL AT SOUTHWOODSUrea nitrogen/Creatinine [Mass ratio]28 mg/mg High9 - 20BON THE SURGICAL HOSPITAL AT SOUTHWOODSLactic Acidon 47-32-6996Nklvlew [Moles/Vol]2.0 mmol/LNormal0.5-2.2[facility] HospitalComment on above:Performed By: #### LACTIC #### [facility] [address] [place] [address] [place] [address] Supervisor Contact Lens: Felix Prasad MDLactate (BldV) [Moles/Vol]2.0 mmol/L0.5 - 2.2 mmol/LBON DEUEL COUNTY MEMORIAL HOSPITALLipaseon 70-43-1584Misdlr [Catalytic activity/Vol]54 U/VTbcwjm24-06AkbdgSharon HospitalComment on above: Performed By: #### CDP #### [facility] [address] [place] [address] [place] [address] Supervisor Contact Lens: Felix Prasad MDLipase [Catalytic activity/Vol]54 U/L13 - 60 U/L [facility]ALTH SYSTEMMicroscopic Urinalysison 43-11-6406Sxqluetas sediment LM Ql (Urine sed)1+AbnormalNoneBON THE SUR[facility]OS[facility]ITAL [facility] SOUTHWOODSBacteria LM Ql (Urine sed) TRACEAbnormalNoneBON THE SURG[facility]OSPITAL [facility] SOUTHWOODSCrystals LM Nom (Urine sed)2 TO 5 CALCIUM OXALATEAbnormalNone /HPFBON THE SUR[facility] HOSPITAL AT SOUTHWOODSEpithelial cells LM.HPF (Urine sed) [#/Area]NoneRIVERSIDE HEALTH SYSTEMInterpretation and review of laboratory resultsAbnormalRIVERSIDE HEALTH SYSTEMMucus Ql (Urine sed)TRACE AbnormalNoneBON THE SURG[facility] HOSPITAL AT SOUTHWOODSRBC LM.HPF (Urine sed) [#/Area]0 TO 2BON THE SURGICAL HOSPITAL AT SOUTHWOODSWBC LM.HPF (Urine sed) [#/Area]0 TO 2BON [facility] HOSPITALNo Panel Informationon [id number] THE SURG[facility] HOSPITAL AT SOUTHWOODSUA w/Reflex Cultureon 65-92-3332Zsywehyva, SemiQt,UrNegativeNormalNEG [facility] HospitalComment on above:Performed By: #### JACQUIE PADRON #### [facility] [address] [place] [address] [place] [address] Supervisor Contact Lens: Tania Narvaez, UrineNegativeMemorial Health System [facility] Comment on above:Performed By: #### JACQUIE PADRON #### [facility] [address] [place] [address] [place] [place], [place] [phone] Supervisor Contact Lens: JOSEY Narvaezlarity (U)ClearNormalCLEARBlanchard Valley Health System [facility] Comment on above:Performed By: #### UAPREMA CarlsonO #### [facility] [address] [place] [address] Supervisor Contact Lens: JOSEY Narvaezolor (U)YellowNormalYKindred Hospital Lima Comment on above:Performed By: #### JACQUIE PADRON #### [facility] [address] [place] [address] Supervisor Contact Lens: Felix Prasad MDGlucose Ql (U)1+ mg/dLAbnormalMagruder HospitalComment on above:Performed By: #### UAX, UMICAO #### [facility] [address] [place] [address] [place] [address] Supervisor Contact Lens: Felix Prasad MDKetones Ql (U)TRACEAbnormalNEGMercy Reading HospitalComment on above:Performed By: #### UAX, UMICAO #### [facility] [address] [place] [address] [place] [address] Supervisor Contact Lens: Felix Prasad MDLeukocyte esterase Test strip Ql (U)NegativeNormal NEGMercy Hartford HospitalComment on above:Performed By: #### UAX, UMICAO #### [address] [place] [address] Supervisor Contact Lens: Felix Prasad MDNitrite,UrNegativeNormalNEGBlanchard Valley Health System [facility] Comment on above:Performed By: #### UAX, UMICAO #### [facility] [address] [place] [address] [place] [address] Supervisor Contact Lens: CLAUDE Narvaez,Ur7.7Xymtiu0.0-9.0[facility] Centercy Hartford HospitalComment on above:Performed By: #### UAX, UMICAO #### [address] [place] [address] Supervisor Contact Lens: Augustin Narvaez Ql (U)TRACEAbnormalNEGMercy Reading HospitalComment on above:Performed By: #### UAX, UMICAO #### [facility] [address] [place] [address] Dr[address] [place], [place] 403[address]83 Supervisor Contact Lens: EVELIN Narvaezpec. [place],Ur1.878Wsgyfd8.010-1.020[facility] HospitalComment on above:Performed By: #### UAX, UMICAO #### [facility] [address] [place] [address] [place] [address] Supervisor Contact Lens: Felix Prasad MDUrobilinogen,UrELEVATEDNormal0.0-1.0[facility] HospitalComment on above:Performed By: #### JACQUIE PADRON #### [facility] [address] [place] [address] Supervisor Contact Lens: Felix Prasad MDUrinalysis with Reflex to Cultureon 09-06-2023 Bilirubin Ql (U)NegativeNEGATIVEBON [facility] HEALTHClarity (U)ClearClearBON SECOUACHITA AND MOREHOUSE [facility]ISH[facility] HEALTHColor (U)YellowYellowBON [facility] HEALTHGlucose Test strip (U) [Mass/Vol]1+AbnormalNEGATIVE mg/dLBON THE [facility]OS[facility]ODSHemoglobin Auto test strip Ql (U)NegativeNEGATIVEBON [facility] HEALTHInterpretation and review of laboratory resultsAbnormalBON [facility] HEALTHKetones (U) [Mass/Vol]TRACEAbnormalNEGATIVE mg/dLBON THE [facility]ODSLeukocyte esterase Test strip Ql (U)NegativeNEGATIVEBON [facility] HEALTHNitrite Ql (U)Negative NEGATIVEBON [facility]ITAL HEALTHpH (U)7.0 [pH]5.0 - 9.0BON [facility] Protein (U) [Mass/Vol]TRACEAbnormalNEGATIVE mg/dLB[facility] HEALTH Specific gravity (U) [Rel density]1.0201.010 - 1.020B[facility] Urobilinogen Qn (U)ELEVATED0.0 - 1.0 EU/dLBON SECASPIRUS LANGLADE HOSPITALUrinalysis,Microon 12-02-7074Ujnbyhvdt sediment LM Ql (Urine sed)1+ AbnormalParkview Health Bryan HospitalComment on above:Performed By: #### JACQUIE PADRON #### [facility] [address] [place] [address] Supervisor Contact Lens: Felix Prasad MDBacteriaTRACEAbnoMarietta Osteopathic Clinic Comment on above:Performed By: #### JACQUIE PADRON #### [facility] [address] [place] [address] Dr[address] [place], [place] [address]83 Supervisor Contact Lens: JOSEY Narvaezrystcalvin LM Nom (Urine sed)2 TO 5AbnormalNONMercy Health Clermont HospitalComment on above:Result Comment: CALCIUM OXALATEPerformed By: #### UAX, UMICAO #### [facility] [address] [place] [address] [place] [place], [place] 0[address]83 Supervisor Contact Lens: Felix Prasad MDEpithelial cells LM Ql (Urine sed)NoneNormal0-5 [facility] HospitalComment on above:Performed By: #### UAX, UMICAO #### [address] [place], [place] 136[address]383 Supervisor Contact Lens: GHANSHYAM Narvaezuc StrandsTRACEAbnoMarietta Osteopathic ClinicComment on above:Performed By: #### AYLAX, PREMAO #### [address] [place], [place] [address] Supervisor Contact Lens: Sujit Narvaez RBC's0 TO 0Yoqgnp2-8YzcsgUniversity Hospitals Conneaut Medical Center Comment on above:Performed By: #### UAX, UMICAO #### [address] [place], [place] [address] Supervisor Contact Lens: Sujit Narvaez WBC's0 TO 5Vthjkk7-7DdxgsBlanchard Valley Health [facility] Comment on above:Performed By: #### UAX, UMICAO #### [facility] [address] [place] [address] Dr[address] [place], [place] [address]83 Supervisor Contact Lens: Felix Prasad MDActivated partial thromboplastin time (aPTT) in platelet poor plasma by coagulation aOrdered By: Julius Saldaña on 73-88-1022kGII Coag (PPP) [Time]30.0 s25.1-36.5FWayne HospitalAlanine aminotransferase [Enzymatic activity/volume] in Serum or PlasmaOrdered By: Julius Saldaña on 31-51-5867PQZ [Catalytic activity/Vol]22 U/L7-52[facility] NorthAlbumin [Mass/volume] in Serum or Plasma by Bromocresol green (BCG) dye binding methoOrdered By: Julius Saldaña on 86-48-5408Iymihdr BCG dye [Mass/Vol]3.5 g/dL3.5-5.7FWayne HospitalAlkaline phosphatase [Enzymatic activity/volume] in Serum or PlasmaOrdered By: Julius Saldaña on 97-24-3899DKQ [Catalytic activity/Vol]234 U/R08-324FyicyhjxjPremier Health Miami Valley Hospital NorthAspartate aminotransferase [Enzymatic activity/volume] in Serum or PlasmaOrdered By: Julius Saldaña on 92-22-6692UHX [Catalytic activity/Vol]20 U/L 13-39[facility] NorthAutomated erythrocytes count in urine sediment (number/area)Ordered By: Julius Saldaña on 36-75-4237ODM Auto (Urine sed) [#/Area]0-1 [HPF]0-4FWayne HospitalAutomated leukocytes count in urine sediment (number/area)Ordered By: Julius Saldaña on 88-60-9123PBE Auto (Urine sed) [#/Area]0-1 [HPF]0-4FWayne HospitalBasophils Auto (Bld) [#/Vol]Ordered By: Julius Saldaña on 46-63-0912Ckilywpbf (Bld) [#/Vol] 0.1 10*3/uL0.0-0.2FWayne HospitalBasophils/100 WBC Auto (Bld) Ordered By: Julius Saldaña on 90-43-9772Inkghzath/100 WBC (Bld)0.6 %.[facility] Hospital NorthBilirubin Test strip Ql (U)Ordered By: Julius Saldaña on 75-27-9884Gzcpzlmkp Ql (U)NegativeNegativePremier Health [facility] North Bilirubin.total [Mass/volume] in Serum or PlasmaOrdered By: Julius Saldaña on 47-36-2901Upaavvdzi [Mass/Vol]0.5 mg/dL0.3-1.0[facility] Calcium [Mass/volume] in Serum or PlasmaOrdered By: Julius Saldaña on 03-02-2023 Calcium [Mass/Vol]9.7 mg/dL8.6-10.3FWayne HospitalCarbon dioxide, total [Moles/volume] in Serum or PlasmaOrdered By: Julius Saldaña on 32-82-9215YN4 [Moles/Vol]27.1 mmol/L21.0-31.0[facility] Chloride [Moles/volume] in Serum or PlasmaOrdered By: Julius Saldaña on 38-28-6178Jfhgnutx [Moles/Vol]103 mmol/X28-847KqjvxsmfkPremier Health [facility] Color Auto (U)Ordered By: Julius Saldaña on 69-87-2090Nukxr (U)YellowYellow [facility] NorthCreatine kinase [Enzymatic activity/volume] in Serum or PlasmaOrdered By: Julius Saldaña on 69-91-8396ZA [Catalytic activity/Vol]84 U/B96-480BfowbgyknPremier Health Miami Valley Hospital NorthCreatinine [Mass/volume] in Serum or PlasmaOrdered By: Julius Saldaña on 03-02-2023 Creatinine [Mass/Vol]0.77 mg/dL0.70-1.30[facility] Eosinophils Auto (Bld) [#/Vol]Ordered By: Julius Saldaña on 30-33-7793Dkyroglfddf (Bld) [#/Vol]0.2 10*3/uL0.0-0.45[facility] Eosinophils/100 WBC Auto (Bld)Ordered By: Julius Saldaña on 03-02-2023 Eosinophils/100 WBC (Bld)2.3 %.[facility] NorthErythrocyte distribution width Auto (RBC) [Ratio]Ordered By: Julius Saldaña on 03-02-2023 Erythrocyte distribution width (RBC) [Ratio]14.0 %12.0-14.8[facility] NorthEthanol [Mass/volume] in Serum or PlasmaOrdered By: Julius Saldaña on 21-65-3374Zgtwsfj [Mass/Vol]mg/dLPremier Health Miami Valley Hospital NorthEthanol [Mass/Vol]TNPPremier Health Miami Valley Hospital NorthComment on above:Test not performedGlobulin Calc (S) [Mass/Vol]Ordered By: Julius Saldaña on 03-02-2023 Globulin (S) [Mass/Vol]3.2 g/dLPremier Health Miami Valley Hospital NorthGlucose Glucometer (BldC) [Mass/Vol]Ordered By: Julius Saldaña on 96-54-5192Ltiewzu [Mass/Vol]341 mg/dLPremier Health Miami Valley Hospital NorthComment on above:Random Glucose Reference Range is dependent on time and content of last meal. Glucose of more than 200 mg/dL in a nonstressed, ambulatory subject supports the diagnosis of Diabetes Mellitus.Glucose [Mass/volume] in Serum or PlasmaOrdered By: Julius Saldaña on 53-97-5330Csqlqcb [Mass/Vol]399 mg/tI06-924WbjcbqtghPremier Health Miami Valley Hospital NorthComment on above:ADA recommended reference rangeRandom Glucose Reference Range is dependent on time and content of last meal. Glucose of more than 200 mg/dL in a nonstressed, ambulatory subject supports the diagnosisof Diabetes Mellitus.Hematocrit Auto (Bld) [Volume fraction]Ordered By: Julius Saldaña on 93-55-1249Arbedlkdnh (Bld) [Volume fraction]44.2 %38.8-50.0 [facility] NorthHemoglobin [Mass/volume] in BloodOrdered By: Julius Saldaña on 38-16-8881Esmsgcwgfq (Bld) [Mass/Vol]15.1 g/dL13.0-17.0 [facility] NorthKetones Auto test strip (U) [Mass/Vol]Ordered By: Julius Saldaña on 83-92-3568Iuhufxg (U) [Mass/Vol]NegativeNegativePremier Health Miami [facility] Hospital NorthLaboratory - CoagulationOrdered By: Julius Saldaña on 20-80-2385HX Coag (PPP) [Time]11.2 s9.0-12.9[facility] Laboratory - UrinalysisOrdered By: Julius Saldaña on 99-24-6469Ahmxszz casts LM Ql (Urine sed)None seen [LPF]0-8[facility] NorthLeukocytes [#/volume] corrected for nucleated erythrocytes in Blood by Automated coun Ordered By: Julius Saldaña on 23-30-7678BBE corrected for nucl RBC Auto (Bld) [#/Vol]9.3 10*3/uL4.1-10.5FWayne HospitalLymphocytes Auto (Bld) [#/Vol]Ordered By: Julius Saldaña on 70-19-2807Qnvqframybx (Bld) [#/Vol]2.5 10*3/uL1.00-4.8[facility] NorthLymphocytes/100 WBC Auto (Bld) Ordered By: Julius Saldaña on 63-00-0534Hwjtzcmndko/100 WBC (Bld)27.3 %.[facility] HospitalH Auto (RBC) [Entitic mass]Ordered By: Julius Saldaña on 97-70-4665OOM (RBC) [Entitic mass]31.0 pg27.5-35.2FWayne HospitalMCHC Auto (RBC) [Mass/Vol]Ordered By: Julius Saldaña on 37-36-5585KPEY (RBC) [Mass/Vol]34.2 g/dL32.5-35.6FToledo HospitalV Auto (RBC) [Entitic vol]Ordered By: Julius Saldaña on 29-15-2162PHB (RBC) [Entitic vol]90.7 fL83.5-101[facility] NorthMonocyte distribution width [Entitic volume] in Blood by AutomatedOrdered By: Julius Saldaña on 03-02-2023 Monocyte distribution width Auto (Bld) [Entitic vol]19.54 %0.00-20.00[facility] NorthMonocytes Auto (Bld) [#/Vol]Ordered By: Julius Saldaña on 41-00-0136Pionhmnbw (Bld) [#/Vol]0.6 10*3/uL0.0-0.8[facility] NorthMonocytes/100 WBC Auto (Bld)Ordered By: Julius Saldaña on 03-02-2023 Monocytes/100 WBC (Bld)6.2 %.[facility] NorthNeutrophils Auto (Bld) [#/Vol]Ordered By: Julius Saldaña on 31-44-2556Eazzeqgphrm (Bld) [#/Vol]5.9 10*3/uL1.8-7.7FWayne HospitalNeutrophils/100 WBC Auto (Bld) Ordered By: Julius Saldaña on 21-65-9165Ibjebzsqlfa/100 WBC (Bld)63.6 %.[facility] NorthNitrite Test strip Ql (U)Ordered By: Julius Saldaña on 05-81-2668Ttdnmzd Ql (U)NegativeNegativeFirelands Regional Medical CenterNo Panel InformationOrdered By: Julius Saldaña on 82-50-0345Uledpdc Glucose #[address]/rnFWayne HospitalBedside Glucose Comment Glu2: cleaned meterPremier Health Miami Valley Hospital NorthEstimated GFR (CKD-EPI)> 60.0 mL/MinPremier Health Miami Valley Hospital NorthPharmacy Creatinine Clearance (Chem 101.58[facility] NorthNucleated erythrocytes [Presence] in Blood by Automated countOrdered By: Julius Saldaña on 90-66-9325Sulzwikcm RBC Auto Ql (Bld)0.2 /100{WBC}0-0.5FWayne HospitalPlatelet mean volume Auto (Bld) [Entitic vol]Ordered By: Julius Saldaña on 71-24-8316Xqnejxir mean volume (Bld) [Entitic vol]8.7 fL6.6-10.1FWayne Hospital Platelet poor plasma international normalized ratio (INR) by coagulation assay (relatOrdered By: Julius Saldaña on 53-84-9171HUF Coag (PPP) [Relative time]1.0 {INR}[facility] NorthComment on above:INR Therapeutic Range A) Pre- and Peroperative OAT started two weeks before surgery. NOT HIP SURGERY: 1.5 - 2.5 HIP SURGERY: 2 - 3B) Primary and secondary prevention of venous THROMBOSIS: 2 - 3C) Active venous thrombosis, pulmonary embolismand prevention of recurrent venous thrombosis: 2 - 3D) Prevention of arterial thromboembolismincluding patients with mechanical heart valves: 3 - 4.5Platelets Auto (Bld) [#/Vol]Ordered By: Julius Saldaña on 77-21-1488Unkxnjjfr (Bld) [#/Vol] 283 10*3/mQ552-303WegchkkrdPremier Health Miami Valley Hospital NorthPotassium [Moles/volume] in Serum or PlasmaOrdered By: Julius Saldaña on 26-07-0492Mviejzxoa [Moles/Vol]4.3 mmol/L3.5-5.1FWayne HospitalProtein Auto test strip (U) [Mass/Vol]Ordered By: Julius Saldaña on 37-69-4517Cnnqjtg (U) [Mass/Vol]Trace mg/dLNegativePremier Health Miami Valley Hospital NorthProtein [Mass/volume] in Serum or PlasmaOrdered By: Julius Saldaña on 45-35-0686Lqfnvkx [Mass/Vol]6.7 g/dL6.4-8.9 [facility] NorthRBC Auto (Bld) [#/Vol]Ordered By: Julius Saldaña on 54-58-1655NLG (Bld) [#/Vol]4.88 10*6/uL3.90-5.60[facility] Hospitalerum or plasma albumin/globulin mass ratioOrdered By: Julius Saldaña on 96-88-5603Wmuqpyw/Globulin [Mass ratio]1.1 {ratio}[facility] Hospitalerum or plasma anion gap determinationOrdered By: Julius Saldaña on 41-71-8781Pxqsw gap [Moles/Vol]9.2 mmol/L6.0-15.0[facility] Hospitalodium [Moles/volume] in Serum or PlasmaOrdered By: Julius Saldaña on 36-33-8963Oalpul [Moles/Vol]135 mmol/A633-659FwkstybfzPremier Health Miami Valley Hospital North Specific gravity Auto test strip (U) [Rel density]Ordered By: Julius Saldaña on 33-22-3697Cgxzosdp gravity (U) [Rel density]1.0281.001-1.030Pro[facility]iance Regional Hospitalquamous epithelial cells detection in urine sediment by light microscopyOrdered By: Julius Saldaña on 65-57-2411Yqezwdksey cells.squamous LM Ql (Urine sed)None seen [HPF]0-2FWayne HospitalTroponin I.cardiac [Mass/volume] in Serum or Plasma by Detection limit <= 0.01 ng/Ordered By: Julius Saldaña 01-09-9706Wuuiqsug I.cardiac DL <= 0.01 ng/mL [Mass/Vol]4.9 pg/mL0.0-20.0[facility] NorthUrea nitrogen [Mass/volume] in Serum or PlasmaOrdered By: Julius Saldaña 12-70-2094Kzwk nitrogen [Mass/Vol]17 mg/dL7-25[facility] NorthUrine bacteria detection by automated methodOrdered By: Julius Saldaña on 64-30-0953Nwigfnuv Auto Ql (U)None seenNone SeenPremier Health Miami Valley Hospital NorthUrine clarity by refractometry automated Ordered By: Julius Saldaña on 08-05-2825Bnqglyw Refractometry automated (U)Clear ClearPremier Health Miami Valley Hospital NorthUrine glucose measurement by automated test strip (mass/volume)Ordered By: Julius Saldaña on 57-98-9047Dehxkth Auto test strip (U) [Mass/Vol]>=1000 mg/dLNoVeterans Health AdministrationUrine hemoglobin detection by automated test stripOrdered By: Julius Saldaña on 75-32-0808Nncoxwwzlg Auto test strip Ql (U)NegativeNegativePremier Health Miami Valley Hospital NorthUrine leukocyte esterase detection by automated test stripOrdered By: Julius Saldaña on 39-05-1994Akarpoxmk esterase Auto test strip Ql (U)Negative NegativePremier Health Miami Valley Hospital NorthUrobilinogen Auto test strip (U) [Mass/Vol]Ordered By: Julius Saldaña on 83-70-8622Dhsuezstnpwx (U) [Mass/Vol] Normal mg/dLNoVeterans Health AdministrationWBC Auto (Bld) [#/Vol]Ordered By: Julius Saldaña on 54-78-0362REZ (Bld) [#/Vol]9.3 10*3/uL4.1-10.5FWayne HospitalpH Auto test strip (U)Ordered By: Julius Saldaña on 96-66-6183zF (U)6.5 [pH]5.0-9.0[facility] NorthCBC AUTO DIFFon 51-33-2706BBDJ #0.1 103/ulNormal0.0-0.1The [facility] - DublinComment on above: Performed By: #### CBC ####[facility] Ifpxiddeus[address] [place], [place] [address]Dr.Yilan ChangBasophils/100 WBC (Bld)0.4 %Normal 0.2-2.0The [facility] - DublinComment on above:Performed By: #### CBC ####[facility] Xduvlcrbxo[address] [place] [address]Dr.Yilan ChangEO # 0.1 103/ulNormal0.0-0.7The [facility] - DublinComment on above:Performed By: #### CBC ####[facility] Lpddlqdgkw50[address] [place] [address]Dr. Yilan ChangEosinophils/100 WBC (Bld)0.4 %Critically low0.9-7.0The [facility] - DublinComment on above:Performed By: #### CBC ####[facility] Qvrmmnjzgk916[address] [place], [place] [address]Dr.Abhinav ChangErythrocyte distribution width (RBC) [Ratio]13.1 %Jniyvm79.0-15.0The [facility] Comment on above:Performed By: #### CBC ####[facility] Enhcltnonx329[address] [place], [place] [address]Dr.Abhinav ChangHematocrit (Bld) [Volume fraction]42.1 %Mvvnzo87.0-54.0The [facility] - DublinComment on above:Performed By: #### CBC ####[facility] Dpjpuudfzr[address] [place], [place] [address]Dr.Abhinav ChangHemoglobin (Bld) [Mass/Vol]14.4 g/sSGzbubb49.0-18.0The [facility] - DublinComment on above:Performed By: #### CBC ####[facility] Qqamsvtqzo01[address] [place], [place] [address]Dr.Abhinav ChangIG #0.36 10e3/ulCritically high0.00-0.03The [facility] - DublinComment on above:Performed By: #### CBC ####[facility] Knockaezlv[address] [place], [place] [address]Dr.Abhinav ChangIG %2.4 %Critically high0.0-0.5The [facility] - DublinComment on above:Performed By: #### CBC ####[facility] Kwucwldpgf74[address] [place], [place] [address]Dr.Abhinav ChangLYMPH #1.9 103/ulNormal1.2-3.8The [facility] - DublinComment on above:Performed By: #### CBC ####[facility] Hgimugmtfb6558[address] [place], [place] [address]Dr.Abhinav ChangLymphocytes/100 WBC (Bld)12.5 %Critically low20.5-60.0The [facility] - DublinComment on above: Performed By: #### CBC ####[facility] Ybyulwlinq1807[address] [place], [place] [address]Dr.Abhinav LagunaMANUAL DIFF REQNONormalThe [facility] - DublinComment on above:Performed By: #### CBC ####[facility] Phwmtuwbgl07[address] [place] [address]Dr.Abhinav LagunaH (RBC) [Entitic mass]31.1 ihJyvjzw36.9-34.0The [facility]eses HospitalComment on above: Performed By: #### CBC ####[facility] Luxbehdstr16[address] [place], [place] [address]Dr.Abhinav LagunaHC (RBC) [Mass/Vol]34.2 g/dLNormal 29.9-35.2The [facility] - DublinComment on above:Performed By: #### CBC ####[facility] Ivpthdogsx598[address] [place], [place] [address]Dr. Abhinav LagunaV (RBC) [Entitic vol]90.9 xQHroese88.0-94.0The [facility] Comment on above:Performed By: #### CBC ####[facility] Xtnbsmyvcy9[address] [place], [place] [address]Dr.Abhinav LagunaMONO #0.4 103/ulNormal0.3-0.8 The [facility] - DublinComment on above:Performed By: #### CBC ####[facility] Luhbaykqgd6737[address] [place], [place] [address]Dr.Abhinav Laguna Monocytes/100 WBC (Bld)2.3 %Normal1.7-12.0The [facility] - DublinComment on above: Performed By: #### CBC ####[facility] Yghspgybdy747[address] [place], [place] [address]Dr.Abhinav LagunaNEUT #12.5 103/ulCritically high1.4-6.5 The [facility] - DublinComment on above:Performed By: #### CBC ####[facility] Xdcvyqohcb906[address] [place], [place] [address]Dr.Abhinav Laguna Neutrophils/100 WBC (Bld)82.0 %Critically high43.0-75.0The [facility] Comment on above:Performed By: #### CBC ####[facility] Owtzakfpbk5[address] [place] [address]Dr.Abhinav JasePlatelet mean volume (Bld) [Entitic vol]10.0 fLNormal9.5-13.5The [facility] - DublinComment on above: Performed By: #### CBC ####[facility] Fjzxfhqumo9[address] [place] [address]Dr.Abhinav LwmktLEM882 103/ydHxnqxk413-960Llv [facility]eses HospitalComment on above:Performed By: #### CBC ####[facility] Suunwjhsac4125[address] [place], [place] [address]Dr.Mirandagallo ChangRBC4.63 106/ul Critically low4.70-6.10The [facility] - DublinComment on above:Performed By: #### CBC ####[facility] Tkwpecxivp[address] [place], [place] [address]Dr. Abhinav GdtdzMWR56.2 103/ulCritically high4.0-11.0The [facility] - DublinComment on above:Performed By: #### CBC ####[facility] Haormvyxrz076[address] [place], [place] [address]Dr.Abhinav LagunaCT HEAD WO CONon 66-88-4562AG HEAD WO CONNormalSt. Elizabeth Hospital URINE PROFILEon 50-68-3843Cbsocrkjf Ql (U) NegativeNormalNEGATIVEMansfield HospitalComment on above:Performed By: #### CATALINA MANRIQUEZR ####[facility] Razborypiy[address] [place], [place] [address]Dr. Abhinav ChangClarity (U)CLEARNormalCLEARMansfield HospitalComment on above:Performed By: #### CATALINA MANRIQUEZR ####[facility] Inqcmektxq[address] [place], [place] [address]Dr. Abhinav ChangColor (U)YELLOWNormalYELLOWMansfield HospitalComment on above:Performed By: #### DECLAN ERUR ####[facility] Xbxlwazepm[address] [place], [place] [address]Dr. Abhinav ChangERUAHD A micrscopic examination will be performed if indicated.NormalThe [facility] - DublinComment on above:Performed By: #### DECLAN, ERUR ####[facility] Xsvrdetxog[address] [place], [place]Dr. Yilan ChangGlucose Ql (U) >1000AbnormalNEGATIVEThe [facility] - DublinComment on above:Performed By: #### DECLAN, ERUR ####[facility] Vvgpjkakde70[address] [place] [address]Dr. Yilan ChangHemoglobin Ql (U)NegativeNormalNEGATIVEThe [facility] on above:Performed By: #### DECLAN, ERUR ####[facility] Gpnyazzigt46[address] [place] [id number]. Yilan ChangKetones Ql (U) TRACEAbnormalNEGATIVEThe [facility] [place] - DublinComment on above:Performed By: #### DECLAN, ERUR ####[facility] Gvbgdyvkpc8[address] [place] [address]Dr. Yilan ChangLEUKOCYTESNegativeNormalNEGATIVEMansfield HospitalComment on above:Performed By: #### DECLAN, ERUR ####[facility] Tusihenskr32[address] [place] [id number]. Yilan ChangNitrite Ql (U)NegativeNormal NEGATIVEMansfield HospitalComment on above:Performed By: #### DECLAN, ERUR ####[facility] Ldvxdcbnww0207 [place] [id number]. Yilan ChangpH (U)5.0 [pH]Normal5-9The [facility] - DublinComment on above: Performed By: #### DECLAN, ERUR ####[facility] Jdgzsfatve95[address] [place] [id number]. Yilan ChangProtein (U) [Mass/Vol]30 mg/dLAbnormal NEGATIVE/ TRACEThe [facility] [place] DublinComment on above:Performed By: #### DECLAN, ERUR ####[facility] Gcagzxcjnw64[address] [place] [id number]. Yilan ChangSPEC GRAVITY>=1.224Tniehpgf3.005-<=1.025The [facility] - DublinComment on above:Performed By: #### CATALINA MANRIQUEZR ####[facility] Foncevpgwe7507 [address]r. Abhinav LagunaUR MICRO INDINDICATEDNormalThe [facility] - DublinComment on above:Performed By: #### CATALINA MANRIQUEZR ####[facility] Zkvgvivtsx6002 [address]r. Abhinav Laguna Urobilinogen Qn (U)1.0 {Marshall'U}/dLNormal0.2 - 1.0The [facility] - DublinComment on above:Performed By: #### YASMINE MANRIQUEZ ####[facility] Aasyxswfpk[address] [place], [place] [address]r. Abhinav LagunaPROF CHEM 8 (BAS METB)on 36-32-3358Aspcy gap [Moles/Vol]11.3 mmol/LNormalThe [facility] DublinComment on above:Performed By: #### BMP ####[facility] Ybxpyyfmkh[address] [place], [place] [address]Dr.Abhinav ChangCalcium [Mass/Vol]10.4 mg/dLCritically high8.5-10.1The [facility] DublinComment on above:Performed By: #### BMP ####[facility] Nigirnbdyt034[address] [place], [place] [address]Dr. Yilan ChangChloride [Moles/Vol]99 mmol/XZdlsvw28-256Fvq [facility] DublinComment on above:Performed By: #### BMP ####[facility] Nqegirhbuf5474[address] [place], [place] [address]Dr.Abhinav ChangCO2 [Moles/Vol]28.0 mmol/LNormal 21.0-32.0The [facility] DublinComment on above:Performed By: #### BMP ####[facility] Wejbuecrog938[address] [place], [place] [address]Dr. Abhinav ChangCreatinine [Mass/Vol]1.05 mg/dLNormal0.70-1.30The [facility] Comment on above:Performed By: #### BMP ####[facility] Cthwzagygd[address] [place] [address]Dr.Yilan ChangEGFR-AF NEPALESE>60Normal>=60 The [facility] - DublinComment on above:Performed By: #### BMP ####[facility] Hyouukmvnw0440[address] [place], [place] [address]Dr.Yilan ChangEGFR- NON AF NEPALESE>60Normal>=60The [facility] - DublinComment on above:Performed By: #### BMP ####[facility] Nwzjgqxjjc0066[address] [place], [place] [address]Dr.Yilan ChangGlucose [Mass/Vol]244 mg/dLCritically gasy44-232Nvr [facility] DublinComment on above:Performed By: #### BMP ####[facility] Exmfmlaobr[address] [place], [place] [address]Dr.Yilan ChangPotassium [Moles/Vol]4.3 mmol/LNormal3.5-5.1The [facility] DublinComment on above: Performed By: #### BMP ####[facility] Emcnlsjkjc3620[address] [place], [place] [address]Dr.Yilan ChangSodium [Moles/Vol]134 mmol/LCritically taj948-629Cxf [facility] DublinComment on above:Performed By: #### BMP ####[facility] Azjghegbwz94[address] [place], [place] [address]Dr. Yilan ChangUrea nitrogen [Mass/Vol]26.0 mg/dLCritically high7.0-18.0The [facility] DublinComment on above:Performed By: #### BMP ####[facility] Zfjbzkyjoz[address] [place], [place] [address]Dr.Yilan ChangUrea nitrogen/Creatinine [Mass ratio]24.8 mg/mgNormalThe [facility] DublinComment on above:Performed By: #### BMP ####[facility] Nvagcfowfm13[address] [place], [place] [address]Dr.Yilan ChangURINE MICROSCOPIC ONLYon 12-08-2022 BACTERIANONE SEENNormalNONE SEENThe [facility] DublinComment on above:Performed By: #### YASMINE MANRIQUEZ ####[facility] Fpecagkirl9024 [place], [place]Dr. Abhinav LagunaBacteria identified Cx Nom (U)NOT INDICATEDNoCleveland Clinic South Pointe HospitalCombaraga county memorial hospital on above:Performed By: #### DECLAN ERUR ####[facility] Eqeerjljpi9712 [place], [place]Dr. Abhinav ChangCA OX CRYSTALSMANYNormalMansfield HospitalComment on above: Performed By: #### CATALINA MANRIQUEZR ####[facility] Xblbchkxvh7647 [place] [phone]. Abhinav ChangCASTSEENAbnormalNONE SEENMansfield HospitalCombaraga county memorial hospital on above:Performed By: #### CATALINA MANRIQUEZR ####[facility] Bbcdgcrmmd7021 [place] [phone]. Abhinav ChangCrystals LM Nom (Urine sed)SEENAbnormalNONE SEENMansfield HospitalCombaraga county memorial hospital on above:Performed By: #### CATALINA MANRIQUEZR ####[facility] Byjrzfmcpm4632 [place] [phone]. Abhinav ChangEpithelial cells LM Ql (Urine sed)RARE NormalNONE SEEN /RAREMansfield HospitalCombaraga county memorial hospital on above:Performed By: #### CATALINA MANRIQUEZR ####[facility] Uhznwqlrcu2372 [place], [place] [address]Qp. Abhinav LagunaHYALINE CASTFEWHolmes County Joel Pomerene Memorial HospitalComment on above: Performed By: #### CATALINA MANRIQUEZR ####[facility] Myeyncsgep88[address] [place] [phone]. Abhinav ChangMUCOUSTRACEAbnormalNONE SEENSalem City Hospital on above:Performed By: #### CATALINA MANRIQUEZR ####[facility] Uckbauuvvr74[address] [place] [address]Dr. Abhinav KtaruSWY7-7Spuxaj7-5 The [facility] - DublinComment on above:Performed By: #### CATALINA MANRIQUEZR ####[facility] Jqeuqvfvzh1632 [place], [place]Dr. Abhinav ChangWBC0-2AbnormalNONE SEENMansfield HospitalComment on above: Performed By: #### YASMINE MANRIQUEZ ####[facility] Csorrqvfct4442 [place], [place]Dr. Abhinav LagunaXR CHEST 1 Von 63-37-2464JJ CHEST 1 V NormalMansfield HospitalBLOOD GASES BTYon 31-84-280032 MODEROOM [facility] Memorial HospitalComment on above:Performed By: #### ABG ####[facility] Mcsmxjtafo36[address] [place] [address]Dr.Abhinav LoaizaENS TEST PositiveHolmes County Joel Pomerene Memorial HospitalCombaraga county memorial hospital on above:Performed By: #### ABG ####[facility] Ffaorsszrb6[address] [place], [place] [address]Dr. Abhinav LagunaBase excess Calc (Bld) [Moles/Vol]2.2 mmol/LCritically high-2.0-2.0 The [facility] DublinCombaraga county memorial hospital on above:Performed By: #### ABG ####[facility] Ymsxpqrsfi56[address] [place], [place] [address]Dr.Abhinav LagunaBIPAP [facility] Medical CenterCombaraga county memorial hospital on above:Performed By: #### ABG ####[facility] Yovkilaotv68[address] [place], [place] [address]Dr. Mirandamile [facility]uff [facility] JaseCPAPHolmes County Joel Pomerene Memorial HospitalCombaraga county memorial hospital on above:Performed By: #### ABG ####[facility] Dfsufqwqsp[address] [place], [place] [address]Dr. Abhinav LagunaLjwhqKCG0UtplvtZlmHolmes County Joel Pomerene Memorial HospitalCombaraga county memorial hospital on above:Performed By: #### ABG ####[facility] Ifjmifsgvo[address] [place], [place] [address]Dr. Abhinav ChangHCO3 (Bld) [Moles/Vol]27.0 mmol/LCritically high22.0-26.0Mansfield HospitalComment on above:Performed By: #### ABG ####[facility] Rlirvlafnc[address] [place], [place] [address]Dr.Mirandagallo ChangLPMNormalThe Neeses HospitalComment on above:Performed By: #### ABG ####[facility] Wxeiziqnii13[address] [place] [address]Dr.Abhinav ChangMINUTE VOLUME NormalThe Neeses HospitalComment on above:Performed By: #### ABG ####[facility] Fxhhnywkpc9942 [place] [address]Dr.Mirandagallo LagunaOxygen (Bld) [Partial pressure]84.3 mm[Hg]Qnuzse93.0-100.0The [facility]es HospitalComment on above:Performed By: #### ABG ####[facility] Yurdgexect4[address] [place], [place] [address]Dr.Abhinav LagunaOxygen saturation in Blood96.8 %Normal 95.0-100.0The [facility] - DublinComment on above:Performed By: #### ABG ####[facility] Vemkslbggb27[address] [place], [place] [address]Dr. Mirandagallo LagunaViyldRPN614.1 muZsXnsork94.0-45.0The [facility] DublinComment on above: Performed By: #### ABG ####[facility] Qrglmjvyms148[address] [place], [place] [address]Dr.Mirandagallo LagunaPEEPNoCleveland Clinic South Pointe HospitalComment on above:Performed By: #### ABG ####[facility] Kjvvrujfsr6[address] [place], [place] [address]Dr.Abhinav LagunapH (Bld)7.405 [pH]Normal7.350-7.450The [facility]eses HospitalComment on above:Performed By: #### ABG ####[facility] Jrsyombqaq64[address] [place], [place] [address]Dr.Abhinav ChangPIPNormalThe [facility] - DublinComment on above:Performed By: #### ABG ####[facility] Zzcxmxakbe492[address] [place], [place] [address]Dr.Abhinav LagunaPSHolmes County Joel Pomerene Memorial HospitalComment on above:Performed By: #### ABG ####[facility] Dcahjqdnfi01[address] [place], [place] [address]Dr.Abhinav ChangPUNCTURE SITERR NormalMansfield HospitalComment on above:Performed By: #### ABG ####[facility] Yvqbxxsoyj[address] [place] [address]Dr.Mirandagallo ChangRATE NormalMansfield HospitalCombaraga county memorial hospital on above:Performed By: #### ABG ####[facility] Xpycyaheks[address] [place] [address]Dr.Mirandalan ChangVENT MODEHolmes County Joel Pomerene Memorial HospitalComment on above:Performed By: #### ABG ####[facility] Giskwnilka34[address] [place] [address]Dr. [facility] Mansfield HospitalCombaraga county memorial hospital on above:Performed By: #### ABG ####[facility] Njjbnmwply[address] [place], [place] [address]Dr. Abhinav ChangLACTATE/LACTIC ACIDon 06-28-2056Vgxnfhh [Moles/Vol]2.4 mmol/L Critically high0.4-2.0[facility] on above:Performed By: #### LACT ####[facility] Wachlczmjw[address] [place], [place] [address]Dr. Abhinav ChangLactate [Moles/Vol]3.1 mmol/LCritically high0.4-2.0[facility] on above:Performed By: #### LACT ####[facility] Sebctmxhoe2467[address] [place], [place] [address]Dr. Abhinav [facility] CARE GLUCOSEon 31-52-6303Hjppguo [Mass/Vol]286 mg/dLCritically tlps66-288VplMansfield HospitalCombaraga county memorial hospital on above:Performed By: #### POCGLUC ####[facility] Dufjtlfzoy8[address] [place], [place] [address]Dr. Abhinav ChangGlucose [Mass/Vol]94 mg/gVNxdrxm46-669OlnMansfield HospitalCombaraga county memorial hospital on above:Performed By: #### POCGLUC ####[facility] Sjgpngqgpu6625[address] [place], [place] [address]Dr. Abhinav ChangACETONE SERUMon 66-56-8791UNRAMGENupukbdmMlgltiUACGHXUL The [facility] - DublinComment on above:Performed By: #### ACETON ####[facility] Dehjbfwikf6344[address] [place], [place] [address]Dr. Abhinav ChangBNPon 83-84-3601Upwtgmqgtwv peptide B (Bld) [Mass/Vol]130.0 pg/mLNormal<=900.0The [facility] - DublinComment on above:Performed By: #### BNP, CMP, LIPA, HSTROPN ####[facility] Bmnjerzpqz0609[address] [place], [place] [address]Dr. Abhinav LagunaCBC AUTO DIFFon 88-07-2295OBKE #0.0 103/ulNormal0.0-0.1The [facility] on above:Performed By: #### CBC ####[facility] Fjepzdwisb0026[address] [place], [place] [address]Dr.Abhinav ChangBasophils/100 WBC (Bld)0.2 %Normal0.2-2.0The [facility] Healthment on above:Performed By: #### CBC ####[facility] Obxizuifxj820568 [address] [place], [place] [address]Dr.Mirandalan ChangEO #0.0 103/ulNormal0.0-0.7The [facility] on above:Performed By: #### CBC ####[facility] Vublfvfkpm2014[address] [place], [place] [address]Dr.Abhinav ChangEosinophils/100 WBC (Bld)0.1 %Critically low0.9-7.0The [facility] Healthment on above:Performed By: #### CBC ####[facility] Dkaxacbqpy5534[address] [place], [place] [address]Dr. Abhinav ChangErythrocyte distribution width (RBC) [Ratio]12.9 %Jnsehw14.0-15.0The [facility] Healthment on above:Performed By: #### CBC ####[facility] Plqvwjzqeh9774[address] [place], [place] [address]Dr.Abhinav ChangHematocrit (Bld) [Volume fraction]44.2 %Jdavhc99.0-54.0The [facility] DublinComment on above:Performed By: #### CBC ####[facility] Urzqlyuvpo[address] [place] [address]Dr.Abhinav LagunaHemoglobin (Bld) [Mass/Vol]15.7 g/dL Pbmulj23.0-18.0The [facility] DublinComment on above:Performed By: #### CBC ####[facility] Tydtryjjis7284[address] [place], [place] [address]Dr. Mirandagallo JaseIG #0.14 10e3/ulCritically high0.00-0.03The [facility] DublinComment on above:Performed By: #### CBC ####[facility] Xxqpstibqn4100[address] [place], [place] [address]Dr.Abhinav LagunaIG %0.9 %Critically high0.0-0.5The [facility]eses HospitalComment on above:Performed By: #### CBC ####[facility] Erlxuvyfyy6627[address] [place], [place] [address]Dr.Abhinav LagunaLYMPH #1.9 103/ulNormal1.2-3.8The [facility] DublinComment on above:Performed By: #### CBC ####[facility] Dpxkchjfea3658[address] [place], [place] [address]Dr. Abhinav LagunaLymphocytes/100 WBC (Bld)11.8 %Critically low20.5-60.0The [facility] - DublinComment on above:Performed By: #### CBC ####[facility] Qsugjnxkec551368 [address] [place], [place] [address]Dr.Abhinav LagunaMANUAL DIFF REQ NONormalThe [facility] DublinComment on above:Performed By: #### CBC ####[facility] Wceiodwxoz0468[address] [place], [place] [address]Dr. Abhinav LagunaCALVARY H[facility] (RBC) [Entitic mass]31.0 mjBwohtc62.9-34.0The [facility] Comment on above:Performed By: #### CBC ####[facility] Trrjkmqgiv378[address] [place], [place] [address]Dr.Abhinav LagunaMANHATTAN PSYCHIATR[facility] (RBC) [Mass/Vol]35.5 g/dL Critically high29.9-35.2The [facility] - DublinComment on above:Performed By: #### CBC ####[facility] Vterrejuja106[address] [place], [place] [address]Dr.Abhinav LagunaMCV (RBC) [Entitic vol]87.4 sJFwtuqm34.0-94.0The [facility] HospitalComment on above:Performed By: #### CBC ####[facility] Zppijklnko5217[address] [place], [place] [address]Dr.Abhinav LagunaMONO #1.0 103/ulCritically high0.3-0.8The [facility] DublinComment on above:Performed By: #### CBC ####[facility] Lhltkdxxlh1979[address] [place], [place] [address]Dr.Abhinav LagunaMonocytes/100 WBC (Bld)6.1 %Normal1.7-12.0The [facility] - DublinComment on above:Performed By: #### CBC ####[facility] Nyidctzega9538[address] [place], [place] [address]Dr.Abhinav LagunaNEUT #13.0 103/ulCritically high1.4-6.5The [facility] DublinComment on above:Performed By: #### CBC ####[facility] Pfhzqojrtn7194[address] [place], [place] [address]Dr.Abhinav LagunaNeutrophils/100 WBC (Bld)80.9 %Critically high43.0-75.0The [facility] - DublinComment on above:Performed By: #### CBC ####[facility] Nzzuyfjrak090[address] [place], [place] [address]Dr.Abhinav LagunaPlatelet mean volume (Bld) [Entitic vol]10.0 fLNormal9.5-13.5The [facility] - DublinComment on above:Performed By: #### CBC ####[facility] Lqfjhboodf9988[address] [place], [place] [address]Dr.Abhinav OlbufCDZ870 103/isAjccql665-820Pzr [facility] - DublinComment on above:Performed By: #### CBC ####[facility] Pzmnkbgpke[address] [place], [place] [address]Dr.Abhinav JaseRBC5.06 106/ul Normal4.70-6.10The [facility] - DublinComment on above:Performed By: #### CBC ####[facility] Bxnzhmfyey9387[address] [place], [place] [address]Dr. Abhinav LagunaWBC16.1 103/ulCritically high4.0-11.0Mansfield HospitalComment on above:Performed By: #### CBC ####[facility] Lmpzvbinon6[address] [place], [place] [address]Dr.Abhinav LagunaDRUG SCREEN RAPID (URINE)on 12-03-2022 AMPNegativeNormalNEGATIVEMansfield HospitalComment on above:Performed By: #### YASMINE DRUGRPD ####[facility] Gmfvxrpnps4875[address] [place], [place] [address]Dr. Abhinav LagunaBARPositiveAbnormalNEGATIVEMansfield HospitalComment on above:Performed By: #### YASMINE DRUGRPD ####[facility] Wzsqkfefbh5899[address] [place], [place] [address]Dr. Abhinav LagunaBUPNegative NormalNEGATIVEMansfield HospitalComment on above:Performed By: #### YASMINE DRUGRPD ####[facility] Eyordddizw576[address] [place], [place] [address]Dr. Abhinav LagunaBZONegativeNormalNEGATIVEMansfield HospitalComment on above:Performed By: #### YASMINE DRUGRPD ####[facility] Difwmdiukc034[address] [place], [place] [address]Dr. Abhinav LagunaCOCNegativeNormalNEGATIVEMansfield HospitalComment on above:Performed By: #### CATALINAR DRUGRPD ####[facility] Sdcvfyofke347[address] [place], [place] [address]Dr. Abhinav Laguna CUT-OFFSSEE BELOWNormalThSumma HealthComment on above:Result Comment: AMP (Amphetamine): 500ng/mL, BAR (Barbituates): 200 ng/mL, BZO (Benzodiazepines): 15 0 ng/mL, BUP (Buprenorphine): 10 ng/mL, ISELA (Cocaine): 150 ng/mL, mAMP (Methamphetamine): 500 ng/mL, MTD (Methadone): 200 ng/mL, OPI (Opiates): 100 ng/mL, OXY (Oxycodone): 100 ng/mL, PCP (Phencyclidine): 25 ng/mL, PPX (Propoxyphene): 300 ng/mL, THC (Cannabinoids): 50 ng/mL, TCA (Trycyclic Antidepressants): 300 ng/mLPerformed By: #### ERUR DRUGRPD ####[facility] Orjvcuxktc158[address] [place], [place] [address]Dr. Abhinav ChangDRUG CUT HEADERDRUG CLASS TEST SYSTEM CUT-OFF CONCENTRATIONS ARE FOLLOWS:NormalThe [facility] DublinComment on above:Performed By: #### YASMINE DRUGRPD ####[facility] Wrxqsdizvq[address] [place], [place] [address]Dr. Abhinav ChangmAMP NegativeNormalNEGATIVETrihealth Mccullough-[facility] Hospital HospitalComment on above:Performed By: #### YASMINE DRUGRPD ####[facility] Vqustpcvhl047[address] [place], [place] [address]Dr. Yigallo ChangMTDNegativeNormalNEGATIVEMansfield HospitalComment on above:Performed By: #### YASMINE DRUGRPD ####[facility] Fmsjyuxorc5704[address] [place], [place] [address]Dr. Yilan ChangOPIPositiveAbnormalNEGATIVE Mansfield HospitalComment on above:Performed By: #### CATALINAR DRUGRPD ####[facility] Glwazqbltv3516[address] [place], [place] [address]Dr. Yilan ChangOXYNegativeNormalNEGATIVETrihealth Mccull[facility] HospitalComment on above: Performed By: #### ERUR DRUGRPD ####[facility] Zgehohpjnb084[address] [place], [place] [address]Dr. Yilan ChangPCPNegativeNormalNEGATIVETrihealth M[facility] Hospital HospitalComment on above:Performed By: #### ERUR DRUGRPD ####[facility] Lwicrocirq0174[address] [place], [place] [address]Dr. Yilan ChangPPXNegative NormalNEGATIVEThe [facility]eses HospitalComment on above:Performed By: #### ERUR, DRUGRPD ####[facility] Tdnoarsldc1998[address] [place], [place] [address]Dr. Yilan ChangTCANegativeNormalNEGATIVEMansfield HospitalComment on above:Performed By: #### ERUR, DRUGRPD ####[facility] Qxobnkpqmc3874[address] [place], [place] [address]Dr. Yilan ChangTHCPositiveAbnormalNEGATIVEMansfield HospitalComment on above:Performed By: #### ERUR, DRUGRPD ####[facility] Rfizebtkcb9327[address] [place], [place] [address]Dr. Yilan ChangER URINE PROFILEon 36-97-3295Pxrqvrvsv Ql (U)NegativeNormalNEGATIVEMansfield HospitalComment on above:Performed By: #### CATALINAR, DRUGRPD ####[facility] Kppdwoktcl6644[address] [place], [place] [address]Dr. Yilan ChangClarity (U) CLEARNormalCLEARMansfield HospitalComment on above:Performed By: #### ERUR, DRUGRPD ####[facility] Brvxtgidal3240[address] [place], [place] [address]Dr. Yilan ChangColor (U)LT. YELLOWNormalYELLOWMansfield HospitalComment on above:Performed By: #### ERUR, DRUGRPD ####[facility] Ivzwhmovlb4098[address] [place], [place] [address]Dr. Yilan ChangERUAHDA micrscopic examination will be performed if indicated.NormalMansfield HospitalComment on above:Performed By: #### ERUR, DRUGRPD ####[facility] Cdppidjohj728968 [address] [place], [place] [address]Dr. Yilan ChangGlucose Ql (U)>1000Abnormal NEGATIVEMansfield HospitalComment on above:Performed By: #### ERUR, DRUGRPD ####[facility] Odplrohezo7580[address] [place], [place] [address]Dr. Yilan ChangHemoglobin Ql (U)NegativeNormalNEGATIVEThe Nelly HospitalComment on above:Performed By: #### YASMINE DRUGRPD ####[facility] Ynoswuuxuh[address] [place] [address]Dr. Abhinav LagunaKetones Ql (U)NegativeNormal NEGATIVEThe [facility]es HospitalComment on above:Performed By: #### YASMINE DRUGRPD ####[facility] Fsmwqqdois4[address] [place] [address]Dr. Abhinav LagunaLEUKOCYTESNegativeNormalNEGATIVEThe [facility]eses HospitalComment on above:Performed By: #### YASMINE DRUGRPD ####[facility] Zcqwotiodz15[address] [place] [address]Dr. Abhinav LagunaNitrite Ql (U)NegativeNormal NEGATIVEThe [facility] DublinComment on above:Performed By: #### YASMINE DRUGRPD ####[facility] Onjuzvcwut3168[address] [place], [place] [address]Dr. Abhinav LagunapH (U)5.5 [pH]Normal5-9The [facility] - DublinComment on above: Performed By: #### YASMINE DRUGRPD ####[facility] Ocaflkzxni567[address] [place], [place] [address]Dr. Abhinav LagunaSPEC GRAVITY1.495Lluyqd9.005-<=1.025The [facility] - DublinComment on above:Performed By: #### YASMINE DRUGRPD ####[facility] Uhangzoatv804[address] [place], [place] [address]Dr. Abhinav LagunaUA PROTEINNegativeNormalNEGATIVE/ TRACEThe Neeses HospitalComment on above: Performed By: #### YASMINE DRUGRPD ####[facility] Xwjlzxqwel05[address] [place], [place] [address]Dr. Abhinav LagunaUR MICRO INDNOT INDICATEDNormalThe [facility] - DublinComment on above:Performed By: #### YASMINE, DRUGRPD ####[facility] Uhgkposxai785[address] [place], [place] [address]Dr. Abhinav Laguna Urobilinogen Qn (U)0.2 {Marshall'U}/dLNormal0.2 - 1.0The [facility] Healthment on above:Performed By: #### ERUR, DRUGRPD ####[facility] Bnldrnkdrm18[address] [place], [place] [address]Dr. Abhinav ChangLACTATE/LACTIC ACIDon 10-35-1108Msopocc [Moles/Vol]3.0 mmol/LCritically high0.4-2.0The [facility] - DublinComment on above:Performed By: #### LACT ####[facility] Mwrqckfglt305[address] [place], [place] [address]Dr. Mirandagallo ChangLIPASEon 30-04-0714Wdrplz [Catalytic activity/Vol]83.0 U/KPyyhtl14.0-393.0The [facility] DublinCombaraga county memorial hospital on above:Performed By: #### BNP, CMP, LIPA, HSTROPN ####[facility] Oddgwrsyvp588[address] [place], [place] [address]Dr. Abhinav ChangPH VENOUS BLOODon 74-25-6687JPJ5 XMSECJ87.5 mmHgCritically high40.0-52.0The [facility] - DublinComment on above:Performed By: #### PHVEN ####[facility] Opfovvexoq9217[address] [place], [place] [address]Dr. Mirandagallo ChangpH VENOUS7.354 Normal7.330-7.430The [facility] on above:Performed By: #### PHVEN ####[facility] Yhpvllwgci264[address] [place], [place] [address]Dr. Abhinav [facility]ren Memorial HospitalPOINT OF CARE GLUCOSEon 41-33-5781Ferxhlg [Mass/Vol]304 mg/dL Critically bmza40-017Hbb [facility] - DublinComment on above:Performed By: #### POCGLUC ####[facility] Yywlbjydip25[address] [place], [place] [address]Dr. Abhinav LagunaPOCGLUC>600Critically qxnh27-916Sxo [facility] on above:Result Comment: Lab Draw OrderedPerformed By: #### POCGLUC ####[facility] Yoeqhddlzd614[address] [place], [place] [address]Dr. Abhinav ChangPROF 14(COMP METB)on 83-57-5955Psnnlvi [Mass/Vol]2.7 g/dLCritically low3.4-5.0The [facility] DublinComment on above:Performed By: #### BNP, CMP, LIPA, HSTROPN ####[facility] Hflugvgycu[address] [place] [address]Dr. Yilan ChangAlbumin/Globulin [Mass ratio]0.6 {ratio}NormalThe [facility] - DublinComment on above:Performed By: #### BNP, CMP, LIPA, HSTROPN ####[facility] Canpdlzcng60[address] [place] [address]Dr. Yilan ChangALP [Catalytic activity/Vol]456 U/LCritically xhrx36-193Ogv [facility] DublinComment on above:Performed By: #### BNP, CMP, LIPA, HSTROPN ####[facility] Dvosxvjfpg[address] [place], [place] [address]Dr. Yilan ChangALT [Catalytic activity/Vol]28 U/OCnkrlz30-60Gfp [facility] DublinComment on above: Performed By: #### BNP, CMP, LIPA, HSTROPN ####[facility] Awjreovdvs97[address] [place], [place] [address]Dr. Yilan ChangAnion gap [Moles/Vol]7.7 mmol/LNormalThe [facility] DublinComment on above:Performed By: #### BNP, CMP, LIPA, HSTROPN ####[facility] Zmdlkafupq17[address] [place], [place] [address]Dr. Yilan ChangAST [Catalytic activity/Vol]9 U/LCritically wev62-54Ety [facility] DublinComment on above:Performed By: #### BNP, CMP, LIPA, HSTROPN ####[facility] Ugpeeznmnl7174[address] [place], [place] [address]Dr. Yilan ChangBilirubin [Mass/Vol]0.3 mg/dLNormal0.2-1.0The [facility] Comment on above:Performed By: #### BNP, CMP, LIPA, HSTROPN ####[facility] Xogyfgbmqo895[address] [place], [place] [address]Dr. Yilan Laguna Calcium [Mass/Vol]10.9 mg/dLCritically high8.5-10.1The [facility] DublinComment on above:Performed By: #### BNP, CMP, LIPA, HSTROPN ####[facility] Mu[address]yskazpv[address] [place] [address]Dr. Yilan ChangChloride [Moles/Vol]96 mmol/LCritically ksv14-514Nua [facility] - DublinComment on above: Performed By: #### BNP, CMP, LIPA, HSTROPN ####[facility] Dygzrfyopv815[address] [place], [place] [address]Dr. Yilan ChangCO2 [Moles/Vol]32.1 mmol/L Critically high21.0-32.0The [facility] - DublinComment on above:Performed By: #### BNP, CMP, LIPA, HSTROPN ####[facility] Jquuqxhvfo0774[address] [place], [place] [address]Dr. Yilan ChangCreatinine [Mass/Vol]1.19 mg/dLNormal 0.70-1.30The [facility] - DublinComment on above:Performed By: #### BNP, CMP, LIPA, HSTROPN ####[facility] Qffpbpaufm668[address] [place], [place] [address]Dr. Yilan ChangEGFR-AF NEPALESE>60Normal>=60The [facility] Comment on above:Performed By: #### BNP, CMP, LIPA, HSTROPN ####[facility] Ciovzhbitq4358[address] [place], [place] [address]Dr. Yilan ChangEGFR- NON AF NEPALESE>60Normal>=60The [facility] - DublinComment on above:Performed By: #### BNP, CMP, LIPA, HSTROPN ####[facility] Umuwhyevfz6629[address] [place], [place] [address]Dr. Yilan ChangGlobulin (S) [Mass/Vol]4.6 g/dLNormal The [facility] - DublinComment on above:Performed By: #### BNP, CMP, LIPA, HSTROPN ####[facility] Eisbqqftot[address] [place], [place] [address]Dr. Yilan ChangGlucose [Mass/Vol]478 mg/dLCritically prom72-890Bef [facility] Comment on above:Performed By: #### BNP, CMP, LIPA, HSTROPN ####[facility] Wbmrckucjb[address] [place] [address]Dr. Yigallo Laguna Potassium [Moles/Vol]4.8 mmol/LNormal3.5-5.1The [facility] HospitalComment on above:Performed By: #### BNP, CMP, LIPA, HSTROPN ####[facility] Soqgzfgput[address] [place] [address]Dr. Yilan ChangProtein [Mass/Vol]7.3 g/dLNormal6.4-8.2The [facility] - DublinComment on above:Performed By: #### BNP, CMP, LIPA, HSTROPN ####[facility] Irwwijdcgu[address] [place] [address]Dr. Yilan ChangSodium [Moles/Vol]131 mmol/LCritically qpj356-002Bvq [facility] - DublinComment on above:Performed By: #### BNP, CMP, LIPA, HSTROPN ####[facility] Vnmnzragar[address] [place] [address]Dr. Yilan ChangUrea nitrogen [Mass/Vol]35.0 mg/dLCritically high 7.0-18.0The [facility] - DublinComment on above:Performed By: #### BNP, CMP, LIPA, HSTROPN ####[facility] Bcuiiuvakn[address] [place] [address]Dr. Yilan ChangUrea nitrogen/Creatinine [Mass ratio]29.4 mg/mgNormalThe [facility] - DublinComment on above:Performed By: #### BNP, CMP, LIPA, HSTROPN ####[facility] Lrxntcmznh[address] [place] [address]Dr. Yilan ChangTROPONIN, HIGH SENSITIVITYon 67-29-0648PRGOCD5.5 pg/mLNormal4.0-76.1 The [facility] - DublinComment on above:Result Comment: CUT-OFF POINTS HAVE BEEN ESTABLISHED BASED ON THE FOURTH UNIVERSAL DEFINITIONS OF MYOCARDIALINFARCTION. THE UPPER REFERENCE LIMIT (URL) OF TROPONIN, DEFINED THE 99TH PERCENTILE OFcT nI DISTRIBUTION IN A REFERENCE POPULATION, HAS BEEN CONFIRMED THE DECISION THRESHOLDFOR OR DIAGNOSIS.Performed By: #### BNP, CMP, LIPA, HSTROPN ####[facility] [address] [place] [address]Dr. Abhinav LagunaXR CHEST 1 Von [id number] CHEST 1 VNormalThe [facility] CARDIAC GILMER ADMITon [id number] [Catalytic activity/Vol]46 U/SOhcref33-077Cti [facility] DublinCom[facility] on above:Performed By: #### TAD ROLDAN ####[facility] Uugpddfsjy[address] [place], [place] [address]Dr. Abhinav LagunaCK.MB [Mass/Vol]2.60 ng/mLNormal<=3.60The [facility] on above:Performed By: #### TAD ROLDAN ####[facility] Pzbfmgqpso27[address] [place], [place] [address]Dr. Abhinav LagunaHSTROP9.8 pg/mLNormal4.0-76.1The [facility] on above:Result Comment: CUT-OFF POINTS HAVE BEEN ESTABLISHED BASED ON THE FOURTH UNIVERSAL DEFINITIONS OF MYOCARDIALINFARCTION. THE UPPER REFERENCE LIMIT (URL) OF TROPONIN, DEFINED THE 99TH PERCENTILE OFcT nI DISTRIBUTION IN A REFERENCE POPULATION, HAS BEEN CONFIRMED THE DECISION THRESHOLDFOR OR DIAGNOSIS.Performed By: #### TAD ROLDAN ####[facility] Pzwetrhsee12[address] [place], [place] [address]Dr. Abhinav LagunaMYO43 ng/mL Ovpswn39-70Qcm [facility] Dublin[facility] on above:Performed By: #### TAD ROLDAN ####[facility] Puzdzbfyae53[address] [place], [place] [address]Dr. Abhinav MaxC AUTO DIFFon 09-17-3022DKKI #0.1 103/ulNormal0.0-0.1The [facility] Dublin[facility] on above:Performed By: #### CBC ####[facility] Sunrbwijgf4486[address] [place], [place] [address]Dr.Yilan ChangBasophils/100 WBC (Bld)0.4 %Normal0.2-2.0The [facility] DublinComment on above:Performed By: #### CBC ####[facility] Coeugsvspr05[address] [place], [place] [address]Dr.Yilan ChangEO #0.1 103/ulNormal0.0-0.7The [facility] DublinComment on above:Performed By: #### CBC ####[facility] Sfljuzclym24[address] [place], [place] [address]Dr.Yilan ChangEosinophils/100 WBC (Bld)0.6 %Critically low0.9-7.0The [facility] DublinComment on above:Performed By: #### CBC ####[facility] Ktuofnknek16[address] [place], [place] [address]Dr. Yilan ChangErythrocyte distribution width (RBC) [Ratio]13.2 %Ocepma28.0-15.0The [facility] DublinComment on above:Performed By: #### CBC ####[facility] Smyhyuunyp3655[address] [place], [place] [address]Dr.Yilan ChangHematocrit (Bld) [Volume fraction]42.4 %Ovptqh95.0-54.0The [facility] DublinComment on above:Performed By: #### CBC ####[facility] Bhoqllkdte[address] [place], [place] [address]Dr.Yilan ChangHemoglobin (Bld) [Mass/Vol]14.5 g/dL Psdwmq68.0-18.0The [facility] DublinComment on above:Performed By: #### CBC ####[facility] Ygabehblbv6417[address] [place], [place] [address]Dr. Yilan ChangIG #0.07 10e3/ulCritically high0.00-0.03The [facility] DublinComment on above:Performed By: #### CBC ####[facility] Oljuinmjxh239[address] [place], [place] [address]Dr.Yilan ChangIG %0.4 %Normal0.0-0.5The [facility] DublinComment on above:Performed By: #### CBC ####[facility] O[address]swbdicj[address] [place] [address]Dr.Abhinav LagunaLYMPH #2.3 103/ulNormal1.2-3.8The [facility] DublinComment on above:Performed By: #### CBC ####[facility] Qaqapobkyk[address] [place] [address]Dr. Abhinav LagunaLymphocytes/100 WBC (Bld)13.2 %Critically low20.5-60.0The [facility] DublinComment on above:Performed By: #### CBC ####[facility] Mrvtzczbnj[address] [place] [address]Dr.Abhinav LagunaMANUAL DIFF REQ NONormalThe [facility] DublinComment on above:Performed By: #### CBC ####[facility] Uruqbsmccy17[address] [place], [place] [address]Dr. Abhinav LagunaMCH (RBC) [Entitic mass]31.0 ooZfqgxn61.9-34.0The [facility] Comment on above:Performed By: #### CBC ####[facility] Bzpdksvnqt8389[address] [place], [place] [address]Dr.Abhinav LagunaMCHC (RBC) [Mass/Vol]34.2 g/dL Kwzlgp09.9-35.2The [facility] DublinComment on above:Performed By: #### CBC ####[facility] Kugurinocr975[address] [place], [place] [address]Dr. Abhinav LagunaMCV (RBC) [Entitic vol]90.6 xTFugmbf16.0-94.0The [facility] Comment on above:Performed By: #### CBC ####[facility] Cyzvxpavrv9826[address] [place], [place] [address]Dr.Abhinav LagunaMONO #1.3 103/ulCritically high0.3-0.8The [facility] DublinComment on above:Performed By: #### CBC ####[facility] Lmkfncbjps6985[address] [place], [place] [address]Dr. Abhinav ChangMonocytes/100 WBC (Bld)7.5 %Normal1.7-12.0The [facility] Comment on above:Performed By: #### CBC ####[facility] [address]ysgut[address] [place] [address]Dr.Abhinav LagunaNEUT #13.3 103/ulCritically high1.4-6.5The [facility] DublinComment on above:Performed By: #### CBC ####[facility] F[address]knhclpt[address] [place] [address]Dr. Abhinav JaseNeutrophils/100 WBC (Bld)77.9 %Critically high43.0-75.0The [facility] DublinComment on above:Performed By: #### CBC ####[facility] Fumwvxgfbz6[address] [place] [address]Dr.Abhinav LagunaPlatelet mean volume (Bld) [Entitic vol]9.7 fLNormal9.5-13.5The [facility] DublinComment on above:Performed By: #### CBC ####[facility] Rprctsuauq[address] [place] [address]Dr.Mirandagallo LagunaPapsmKVG158 103/ulCritically opwi022-040Juq [facility] DublinComment on above:Performed By: #### CBC ####[facility] Ujsqisyccc419[address] [place], [place] [address]Dr.Abhinav LagunaRBC4.68 106/ul Critically low4.70-6.10The [facility] DublinComment on above:Performed By: #### CBC ####[facility] Zmwnhtnyrw[address] [place], [place] [address]Dr. Mirandagallo LagunaDuybjZIA33.1 103/ulCritically high4.0-11.0The [facility] DublinComment on above:Performed By: #### CBC ####[facility] Yojpxmajnm[address] [place], [place] [address]DrEfrain LagunaJEFF [facility]IS [facility] GLUCOSEon 11-27-2022 Glucose [Mass/Vol]470 mg/dLCritically bkhr06-658Fbl [facility] DublinComment on above:Performed By: #### POCGLUC ####[facility] Wnhecyzkpw4644[address] [place], [place] [address]Dr. Abhinav LagunaPROF CHEM 8 (BAS METB)on 11-27-2022 Anion gap [Moles/Vol]7.5 mmol/LNormalThe [facility] DublinComment on above: Performed By: #### YULI, CMADM ####[facility] [address]awixdpxjz[address] [place] [address]Dr. Yilan ChangCalcium [Mass/Vol]10.8 mg/dLCritically high8.5-10.1The [facility] DublinComment on above:Performed By: #### YULI, CMADM ####[facility] Kvmbhrqton[address] [place], [place] [address]Dr. Yilan ChangChloride [Moles/Vol]102 mmol/NSllkrf03-078Fzr [facility] Comment on above:Performed By: #### YULI, CMADM ####[facility] Ptlnwbhyzo[address] [place], [place] [address]Dr. Yilan ChangCO2 [Moles/Vol]31.2 mmol/VPxrfuv36.0-32.0The [facility] DublinComment on above: Performed By: #### YULI, CMADM ####[facility] Fvfaqytyrc[address] [place], [place] [address]Dr. Yilan ChangCreatinine [Mass/Vol]0.86 mg/dLNormal 0.70-1.30The [facility] DublinComment on above:Performed By: #### YULI, CMADM ####[facility] Hsxunvqdxm6567[address] [place], [place] [address]Dr. Yilan ChangEGFR-AF NEPALESE>60Normal>=60The [facility] DublinComment on above: Performed By: #### YULI, CMADM ####[facility] Dquwryaxei1226[address] [place], [place] [address]Dr. Yilan ChangEGFR-NON AF NEPALESE>60Normal>=60The [facility] DublinComment on above:Performed By: #### YULI, CMADM ####[facility] Iwusbkokuw3098[address] [place], [place] [address]Dr. Yilan Laguna Glucose [Mass/Vol]513 mg/dLCritically lzua01-029Xkd [facility] DublinComment on above:Performed By: #### YULI, CMADM ####[facility] Sdthiomhza[address] [place] [address]Dr. Yilan ChangPotassium [Moles/Vol]4.7 mmol/L Normal3.5-5.1The [facility] DublinCombar[facility] on above:Performed By: #### BMP, CMADM ####[facility] Valfxvvlzp[address] [place] [address]Dr. Yilan ChangSodium [Moles/Vol]136 mmol/SKpruql018-443Blf [facility] DublinCombar[facility] on above:Performed By: #### BMP, CMADM ####[facility] Kolrrfclzv8626[address] [place], [place] [address]Dr. Yilan ChangUrea nitrogen [Mass/Vol]30.0 mg/dLCritically high7.0-18.0The [facility] DublinCombar[facility] on above:Performed By: #### BMP, CMADM ####[facility] Fsebalsayi7724[address] [place], [place] [address]Dr. Yilan ChangUrea nitrogen/Creatinine [Mass ratio]34.9 mg/mgNormal The [facility] DublinComment on above:Performed By: #### BMP, CMADM ####[facility] Fkzofppsvu5633[address] [place], [place] [address]Dr. Yilan ChangXR CHEST 2 Von [id number] CHEST 2 VNormalThe [facility] AUTO DIFFon 18-73-2795GZXV #0.0 103/ulNormal0.0-0.1The [facility] on above: Performed By: #### CBC ####[facility] Ajdaybqcgj1522[address] [place], [place] [address]Dr.Yilan ChangBasophils/100 WBC (Bld)0.2 %Normal 0.2-2.0The [facility] DublinCombar[facility] on above:Performed By: #### CBC ####[facility] Pnvajemguw5728[address] [place], [place] [address]Dr.Yilan ChangEO # 0.0 103/ulNormal0.0-0.7The [facility] DublinCombar[facility] on above:Performed By: #### CBC ####[facility] Cvhicbevic[address] [place] [address]Dr. Yilan ChangEosinophils/100 WBC (Bld)0.0 %Critically low0.9-7.0The [facility] DublinComment on above:Performed By: #### CBC ####[facility] Alglreqzuz[address] [place], [place] [address]Dr.Mirandalan ChangErythrocyte distribution width (RBC) [Ratio]13.0 %Llxvfl22.0-15.0The [facility] Comment on above:Performed By: #### CBC ####[facility] Kgbecqnsew2035[address] [place], [place] [address]Dr.Yilan ChangHematocrit (Bld) [Volume fraction]39.9 %Critically low42.0-54.0The [facility] DublinComment on above: Performed By: #### CBC ####[facility] Quydkmmelz527[address] [place], [place] [address]Dr.Abhinav ChangHemoglobin (Bld) [Mass/Vol]14.0 g/dL Uvzkwe71.0-18.0The [facility] DublinComment on above:Performed By: #### CBC ####[facility] Tjjtchzzah1737[address] [place], [place] [address]Dr. Yilan ChangIG #0.08 10e3/ulCritically high0.00-0.03The [facility] DublinComment on above:Performed By: #### CBC ####[facility] Eqdinglrnd4464[address] [place], [place] [address]Dr.Yilan ChangIG %0.4 %Normal0.0-0.5The [facility] DublinComment on above:Performed By: #### CBC ####[facility] Cffclwoqog6433[address] [place], [place] [address]Dr.Yilan ChangLYMPH #2.3 103/ulNormal1.2-3.8The [facility] DublinComment on above:Performed By: #### CBC ####[facility] Rioxivuzat6090[address] [place], [place] [address]Dr. Yilan ChangLymphocytes/100 WBC (Bld)12.2 %Critically low20.5-60.0The [facility] DublinComment on above:Performed By: #### CBC ####[facility] [address]oqczklq[address] [place] [address]Dr.Abhinav LagunaMANUAL DIFF REQ NONormalThe [facility] DublinComment on above:Performed By: #### CBC ####[facility] Cxjvbablaq5[address] [place] [address]Dr. Abhinav LagunaH (RBC) [Entitic mass]31.4 etEmtybh40.9-34.0The [facility] Comment on above:Performed By: #### CBC ####[facility] Cxdscmyzvs[address] [place] [address]Dr.Abhinav LagunaHC (RBC) [Mass/Vol]35.1 g/dL Xaiuup41.9-35.2The [facility] DublinComment on above:Performed By: #### CBC ####[facility] Pghxgxopvg1179[address] [place], [place] [address]Dr. Mirandagallo LagunaV (RBC) [Entitic vol]89.5 xJDercut44.0-94.0The [facility] Comment on above:Performed By: #### CBC ####[facility] Walpdrtkxc2027[address] [place], [place] [address]Dr.Abhinav KamaljitO #1.2 103/ulCritically high0.3-0.8The [facility] DublinComment on above:Performed By: #### CBC ####[facility] Jukswnvryk8685[address] [place], [place] [address]Dr. Mirandagallo LagunaMonocytes/100 WBC (Bld)6.2 %Normal1.7-12.0The [facility] Comment on above:Performed By: #### CBC ####[facility] Iaqefrvffb[address] [place], [place] [address]Dr.Mirandagallo LagunaNEUT #15.1 103/ulCritically high1.4-6.5The [facility] DublinComment on above:Performed By: #### CBC ####[facility] Jyomugcnwe3310[address] [place], [place] [address]Dr. Mirandagallo LagunaNeutrophils/100 WBC (Bld)81.0 %Critically high43.0-75.0The [facility] HospitalComment on above:Performed By: #### CBC ####[facility] Ybibgiaryh[address] [place], [place] [address]Dr.Abhinav JasePlatelet mean volume (Bld) [Entitic vol]9.5 fLNormal9.5-13.5The [facility] HospitalComment on above:Performed By: #### CBC ####[facility] Grhcwhylyb6466[address] [place], [place] [address]Dr.Abhinav LagunaPLT514 103/ulCritically tnac954-131Lxw [facility] HospitalComment on above:Performed By: #### CBC ####[facility] Fqjqwjmekw1698[address] [place], [place] [address]Dr.Abhinav LagunaRBC4.46 106/ul Critically low4.70-6.10The [facility] DublinComment on above:Performed By: #### CBC ####[facility] Zsdiilrtir2638[address] [place], [place] [address]Dr. Abhinav LagunaWBC18.7 103/ulCritically high4.0-11.0The [facility] HospitalComment on above:Performed By: #### CBC ####[facility] Ztrspjyxvs104[address] [place], [place] [address]Dr.Abhinav LagunaPROF CHEM 8 (BAS METB)on 70-93-0623Ijfov gap [Moles/Vol]10.9 mmol/LNormalThe [facility] HospitalComment on above:Performed By: #### BMP ####[facility] Ghuaaremfs5[address] [place], [place] [address]Dr.Abhinav LagunaCalcium [Mass/Vol]10.6 mg/dLCritically high8.5-10.1The [facility] HospitalComment on above:Performed By: #### BMP ####[facility] Koqqivflrm9999[address] [place], [place] [address]Dr.Abhinav ChangChloride [Moles/Vol]103 mmol/JTzyzom94-467Doi [facility] HospitalComment on above:Performed By: #### BMP ####[facility] Ybdrxfjxrx8950[address] [place], [place] [address]Dr.Abhinav ChangCO2 [Moles/Vol]28.8 mmol/RQufrvr73.0-32.0The [facility] DublinComment on above:Performed By: #### BMP ####[facility] Hememaxzsg545[address] [place], [place] [address]Dr.Abhinav ChangCreatinine [Mass/Vol]0.90 mg/dLNormal0.70-1.30The [facility] DublinComment on above: Performed By: #### BMP ####[facility] Fpjqzppnib5175[address] [place], [place] [address]Dr.Mirandalan ChangEGFR-AF NEPALESE>60Normal>=60The [facility] DublinComment on above:Performed By: #### BMP ####[facility] Unrsdenqtl028[address] [place], [place] [address]Dr.Mirandalan ChangEGFR-NON AF NEPALESE>60Normal>=60The [facility] DublinComment on above:Performed By: #### BMP ####[facility] Yhqxiwvkap5220[address] [place], [place] [address]Dr. Abhinav ChangGlucose [Mass/Vol]296 mg/dLCritically nmue85-154Uiu [facility] Comment on above:Performed By: #### BMP ####[facility] Bstemskgad3765[address] [place], [place] [address]Dr.Mirandagallo ChangPotassium [Moles/Vol]4.7 mmol/LNormal3.5-5.1The [facility] DublinComment on above:Performed By: #### BMP ####[facility] Nxydcxvuha0765[address] [place], [place] [address]Dr. Mirandalan ChangSodium [Moles/Vol]138 mmol/OTpeirm986-905Wba [facility] DublinComment on above:Performed By: #### BMP ####[facility] Szcrbjlvuo1160[address] [place], [place] [address]Dr.Mirandalan ChangUrea nitrogen [Mass/Vol]32.0 mg/dL Critically high7.0-18.0The [facility] DublinComment on above:Performed By: #### BMP ####[facility] Mwdiiuxaso1118[address] [place], [place] [address]Dr. Yilan ChangUrea nitrogen/Creatinine [Mass ratio]35.6 mg/mgHolmes County Joel Pomerene Memorial HospitalComment on above:Performed By: #### BMP ####[facility] Agusheweek[address] [place], [place] [address]Dr.Abhinav RamonOOD GASES BTY on MODENASAL CANNULAHolmes County Joel Pomerene Memorial HospitalComment on above: Performed By: #### ABG ####[facility] Ishljsaols0111[address] [place], [place] [address]Dr.Abhinav LagunaALLENS TESTPositiveHolmes County Joel Pomerene Memorial HospitalComment on above:Performed By: #### ABG ####[facility] Ceifvveqeg0616[address] [place], [place] [address]Dr.Abhinav LagunaBase excess Calc (Bld) [Moles/Vol]4.5 mmol/LCritically high-2.0-2.0The [facility] Comment on above:Performed By: #### ABG ####[facility] Vfkqebcspe11[address] [place], [place] [address]Dr.Abhinav LagunaBIPAP PRESSUREHolmes County Joel Pomerene Memorial HospitalComment on above:Performed By: #### ABG ####[facility] Mfovwgqojk2447[address] [place], [place] [address]Dr.Abhinav LagunaCPAPHolmes County Joel Pomerene Memorial HospitalComment on above:Performed By: #### ABG ####[facility] Xzolqekiqx815[address] [place], [place] [address]Dr.Abhinav WrxcaSNK5JnnqhkFchHolmes County Joel Pomerene Memorial HospitalComment on above:Performed By: #### ABG ####[facility] Miinssqwmh1496[address] [place], [place] [address]Dr.Abhinav LagunaHCO3 (Bld) [Moles/Vol]28.7 mmol/LCritically high22.0-26.0The [facility] DublinComment on above:Performed By: #### ABG ####[facility] Vcjliolbkr803[address] [place], [place] [address]Dr.Abhinav BxypqFYP4XptklcPtf Bellevue HospitalComment on above:Performed By: #### ABG ####[facility] Hpespchhlk6424[address] [place], [place] [address]Dr.Abhinav LagunaAdena Regional Medical Center Comment on above:Performed By: #### ABG ####[facility] Ntwqdovjmw8[address] [place], [place] [address]Dr.Abhinav ChangOxygen (Bld) [Partial pressure]82.3 mm[Hg]Caeser25.0-100.0The [facility] HospitalComment on above: Performed By: #### ABG ####[facility] Omvhbjoeen[address] [place], [place] [address]Dr.Mirandagallo JaseOxygen saturation in Blood97.3 %Normal 95.0-100.0The [facility] Hospital - DublinComment on above:Performed By: #### ABG ####[facility] Ueqitwluoi8[address] [place], [place] [address]Dr. Abhinav DxwvyUOX538.1 ssYxFhkgue87.0-45.0The [facility] - DublinComment on above: Performed By: #### ABG ####[facility] Ynivaklnxo40[address] [place], [place] [address]Dr.Abhinav JasePEDunlap Memorial HospitalComment on above:Performed By: #### ABG ####[facility] Fkvulriytq0774[address] [place], [place] [address]Dr.Abhinav ChangpH (Bld)7.432 [pH]Normal7.350-7.450The [facility] - DublinComment on above:Performed By: #### ABG ####[facility] Vdsfgbojob13[address] [place], [place] [address]Dr.Mirandagallo ChangPIPNormalMansfield HospitalComment on above:Performed By: #### ABG ####[facility] Ihxjzzsobd296[address] [place], [place] [address]Dr.[facility] Memorial HospitalCombaraga county memorial hospital on above:Performed By: #### ABG ####[facility] Favdpodgxa540[address] [place], [place] [address]Dr.Mirandalan ChangPUNCTURE SITERR NormalMansfield HospitalComment on above:Performed By: #### ABG ####[facility] S[address]kwjviqd[address] [place] [address]Dr.Mirandalan ChangRATE NormalThe [facility] on above:Performed By: #### ABG ####[facility] Dgtvcmzqkg318[address] [place], [place] [address]Dr.Abhinav ChangVENT MODENoCleveland Clinic South Pointe HospitalCombaraga county memorial hospital on above:Performed By: #### ABG ####[facility] Kglpfyzdfg9304[address] [place], [place] [address]Dr. Abhinav ChangBarberton Citizens Hospital on above:Performed By: #### ABG ####[facility] Hoqyqduqur725[address] [place], [place] [address]Dr. Abhinav ChangBNPon 86-42-2179Ghernhzgztn peptide B (Bld) [Mass/Vol]279.0 pg/mL Normal<=900.0The [facility] on above:Performed By: #### HSTROPN, BNP, BMP ####[facility] Wslqtqnevt206[address] [place], [place] [address]Dr. Abhinav LagunaCBC AUTO DIFFon 50-54-3744HKJT #0.1 103/ulNormal0.0-0.1[facility] on above:Performed By: #### CBC ####[facility] Ycpdqolsrv7085[address] [place], [place] [address]Dr.Mirandalan ChangBasophils/100 WBC (Bld)0.3 %Normal0.2-2.0The [facility] on above:Performed By: #### CBC ####[facility] Kiabedmxmc7966[address] [place], [place] [address]Dr.Yilan ChangEO #0.1 103/ulNormal0.0-0.7The [facility] on above:Performed By: #### CBC ####[facility] Kwptvardbd030368 [address] [place], [place] [address]Dr.Mirandalan ChangEosinophils/100 WBC (Bld)0.3 %Critically low0.9-7.0The [facility] on above:Performed By: #### CBC ####[facility] Rwuvunmluo1300[address] [place], [place] [address]Dr. Abhinav ChangErythrocyte distribution width (RBC) [Ratio]12.9 %Cknlss28.0-15.0The [facility] HospitalComment on above:Performed By: #### CBC ####[facility] Qmczzuujgg236[address] [place], [place] [address]Dr.Abhinav ChangHematocrit (Bld) [Volume fraction]39.1 %Critically low42.0-54.0The [facility] HospitalComment on above:Performed By: #### CBC ####[facility] Ijaicdjhjf2828[address] [place], [place] [address]Dr.Abhinav ChangHemoglobin (Bld) [Mass/Vol]14.0 g/dL Ndyitq06.0-18.0The [facility] - DublinComment on above:Performed By: #### CBC ####[facility] Mnwaortebl5280[address] [place], [place] [address]Dr. Abhinav ChangIG #0.12 10e3/ulCritically high0.00-0.03The [facility] - DublinComment on above:Performed By: #### CBC ####[facility] Lvmpzzapyr497[address] [place], [place] [address]Dr.Abhinav ChangIG %0.5 %Normal0.0-0.5The [facility] - DublinComment on above:Performed By: #### CBC ####[facility] Hcmjijheri674[address] [place], [place] [address]Dr.Abhinav ChangLYMPH #2.2 103/ulNormal1.2-3.8The [facility] - DublinComment on above:Performed By: #### CBC ####[facility] Pbdnvryokm740[address] [place], [place] [address]Dr. Abhinav LagunaLymphocytes/100 WBC (Bld)9.5 %Critically low20.5-60.0The [facility] - DublinComment on above:Performed By: #### CBC ####[facility] Nliajpnmyb956468 [address] [place], [place] [address]Dr.Abhinav LagunaMANUAL DIFF REQ NONormalThe Nelly HospitalComment on above:Performed By: #### CBC ####[facility] Nzyvdsnwpz4[address] [place] [address]Dr. Abhinav LagunaCALVARY HOSPITAL (RBC) [Entitic mass]31.5 ryTrsfrx94.9-34.0The [facility] Comment on above:Performed By: #### CBC ####[facility] Vlyhhfvyyp7316[address] [place], [place] [address]Dr.Mirandagallo LagunaMANHATTAN PSYCHIATRIC [facility] (RBC) [Mass/Vol]35.8 g/dL Critically high29.9-35.2The [facility] HospitalComment on above:Performed By: #### CBC ####[facility] Iyxjqivupz3814[address] [place], [place] [address]Dr.Abhinav LagunaV (RBC) [Entitic vol]87.9 oCEtingw45.0-94.0The [facility] HospitalComment on above:Performed By: #### CBC ####[facility] Kphdihcebp5180[address] [place], [place] [address]DrEfrain MariO #1.3 103/ulCritically high0.3-0.8The [facility] HospitalComment on above:Performed By: #### CBC ####[facility] Niydnrygjb030368 [address] [place], [place] [address]DrEfrain LagunaMonocytes/100 WBC (Bld)5.6 %Normal1.7-12.0The [facility] HospitalComment on above:Performed By: #### CBC ####[facility] Uohqrtwvrv180[address] [place], [place] [address]DrEfrain LandUT #19.6 103/ulCritically high1.4-6.5The [facility] HospitalComment on above:Performed By: #### CBC ####[facility] Vfbyqazacj2495[address] [place], [place] [address]DrEfrain LagunaNeutrophils/100 WBC (Bld)83.8 %Critically high43.0-75.0The [facility] HospitalComment on above:Performed By: #### CBC ####[facility] Yocxaottub4837[address] [place], [place] [address]Dr.Yilan ChangPlatelet mean volume (Bld) [Entitic vol]10.1 fLNormal9.5-13.5The [facility] - DublinComment on above:Performed By: #### CBC ####[facility] Mtycxjkakq96[address] [place] [address]Dr.Abhinav LagunaPLT467 103/ulCritically xezg180-735Lzs [facility] - DublinComment on above:Performed By: #### CBC ####[facility] Scjaifhykk16[address] [place] [address]Dr.Abhinav ChangRBC4.45 106/ul Critically low4.70-6.10The [facility] - DublinComment on above:Performed By: #### CBC ####[facility] Nnlynmdqyz498[address] [place], [place] [address]Dr. Abhinav LagunaWBC23.4 103/ulCritically high4.0-11.0The [facility] - DublinComment on above:Performed By: #### CBC ####[facility] Uaxtfebcji3696[address] [place], [place] [address]Dr.Abhinav ChangCULTURE BLOODon 61-21-8113Zxllwricdrt examination of blood, cultureCulture Observations: NO GROWTH AT 5 DAYS.NormalThe [facility] - DublinComment on above:Performed By: #### BLDCX2 ####[facility] Jketsuhrky760[address] [place], [place] [address]Dr. Abhinav ChangMicroscopic examination of blood, cultureCulture Observations: NO GROWTH AT 5 DAYS.NormalThe [facility] - DublinComment on above:Performed By: #### BLDCX1 ####[facility] Huzzbijwjl668[address] [place], [place] [address]Dr. Abhinav LagunaCovid-19 PCR (CVDTB)on 44-87-9217KRGM-CoV-2 (COVID-19) RNA EVERT+probe Ql (Unsp spec)Not detectedNormalNOT DETECTEDThe [facility] Comment on above:Result Comment: When diagnostic testing is negative, the possibility of a false negative should be considered inthe context of a patient's recent exposures and the presence of clinical signs and sympt omsconsistent with SARS-CoV-2.This test is not yet approved or cleared by the [place] FDA. When there are no FDA-approved or cleared tests available, and other criteria are met, FDA can make tests available under an emergency access mechanism called an Emergency Use Authorization (EUA). The EUA for this test is supported by the [employer] of Health and Human Service's declaration that circumstances exist to justify the emergency use of in vitro diagnostics for the detection and/or diagnosis of the virus that causes COVID-19. This EUA will remain in effect for the duration of the COVID-19declaration justifying emergency of IVDs, unless it is terminated or revoked by the FDA (after which the test may no longer be used).Performed By: #### CVDTBH ####[facility] Zpdcgviorg1313[address] [place], [place] [address]Dr. Abhinav LagunaDRUG SCREEN RAPID (URINE)on 00-37-2728ZHULdnxenpyZecwbdOIOOENUORsr Bellevue HospitalComment on above:Performed By: #### DRUGRPD ####[facility] Nxpapyyott037[address] [place], [place] [address]Dr. Abhinav LagunaBARPositiveAbnormalNEGATIVETrihealth Mccullough-[facility] Hospital HospitalComment on above:Performed By: #### DRUGRPD ####[facility] Kupslnqlus7817[address] [place], [place] [address]Dr. Abhinav LagunaBUP NegativeNormalNEGATIVETrihealth Mccullough-[facility] Hospital HospitalComment on above:Performed By: #### DRUGRPD ####[facility] Vqdzmhgqax[address] [place], [place] [address]Dr. Abhinav LagunaBZONegativeNormalNEGATIVETrihealth Mccull[facility] HospitalComment on above:Performed By: #### DRUGRPD ####[facility] Pxeixmkkhr6135[address] [place], [place] [address]Dr. Abhinav LagunaCOCNegativeNormalNEGATIVETrihealth Mccull[facility] HospitalComment on above:Performed By: #### DRUGRPD ####[facility] Fcgvkgsuuc3436[address] [place], [place] [address]Dr. Abhinav LagunaCUT-OFFSSEE BELOWNormalThe Neeses HospitalComment on above:Result Comment: AMP (Amphetamine): 500ng/mL, BAR (Barbituates): 200 ng/mL, BZO (Benzodiazepines): 15 0 ng/mL, BUP (Buprenorphine): 10 ng/mL, ISELA (Cocaine): 150 ng/mL, mAMP (Methamphetamine): 500 ng/mL, MTD (Methadone): 200 ng/mL, OPI (Opiates): 100 ng/mL, OXY (Oxycodone): 100 ng/mL, PCP (Phencyclidine): 25 ng/mL, PPX (Propoxyphene): 300 ng/mL, THC (Cannabinoids): 50 ng/mL, TCA (Trycyclic Antidepressants): 300 ng/mLPerformed By: #### DRUGRPD ####[facility] Yidapdokmu6917[address] [place], [place] [address]Dr. Abhinav LagunaDRUG CUT HEADERDRUG CLASS TEST SYSTEM CUT-OFF CONCENTRATIONS ARE FOLLOWS:NormalThe Neeses HospitalComment on above:Performed By: #### DRUGRPD ####[facility] Raxxvxxhfu1418[address] [place], [place] [address]Dr. Abhinav LagunamAMP NegativeNormalNEGATIVETrihealth Mccull[facility] Hospital HospitalComment on above:Performed By: #### DRUGRPD ####[facility] Amsldxvsfe2697[address] [place], [place] [address]Dr. Abhinav LagunaMTDNegativeNormalNEGATIVETrihealth M[facility] HospitalComment on above:Performed By: #### DRUGRPD ####[facility] Jykmmpoerd7495[address] [place], [place] [address]Dr. Abhinav LagunaOPINegativeNormalNEGATIVETrihealth M[facility] HospitalComment on above:Performed By: #### DRUGRPD ####[facility] Mkywhhexmx060[address] [place], [place] [address]Dr. Abhinav LagunaOXYNegative NormalNEGATIVETrihealth Mccull[facility] HospitalComment on above:Performed By: #### DRUGRPD ####[facility] Zhybstblxx4837[address] [place], [place] [address]Dr. Abhinav LagunaPCPNegativeNormalNEGATIVETrihealth M[facility] HospitalComment on above: Performed By: #### DRUGRPD ####[facility] Uxquyhpcqy5610[address] [place], [place] [address]Dr. Abhinav ChangPPXNegativeNormalNEGATIVEMansfield HospitalComment on above:Performed By: #### DRUGRPD ####[facility] Syxvddkzts0917[address] [place], [place] [address]Dr. Yilan ChangTCANegative NormalNEGATIVEMansfield HospitalComment on above:Performed By: #### DRUGRPD ####[facility] Aubwgdfkvp868668 [address] [place], [place] [address]Dr. Mirandalan ChangTHCPositiveAbnormalNEGATIVEMansfield HospitalComment on above: Performed By: #### DRUGRPD ####[facility] Mhavvkqjka8070[address] [place], [place] [address]Dr. Mriandalan ChangETHANOL (BLD ALC)on 87-19-1304LTV NOTE NOTE: 80 mg/dl is the legal limit for a blood alcohol levelNoCleveland Clinic South Pointe HospitalComment on above:Performed By: #### ETH ####[facility] Bqtwzbyeac3036[address] [place], [place] [address]Dr.Mirandalan ChangEthanol [Mass/Vol]mg/dLNoCleveland Clinic South Pointe HospitalComment on above:Performed By: #### ETH ####[facility] Vyjrajhpjn8570[address] [place], [place] [address]Dr. Abhinav ChangLACTATE/LACTIC ACIDon 75-83-3631Szxbidm [Moles/Vol]1.5 mmol/LNormal 0.4-2.0M[facility]field HospitalComment on above:Performed By: #### LACT ####[facility] Tbmimhpycf[address] [place], [place] [address]Dr. Abhinav ChangPOINT OF CARE GLUCOSEon 74-54-7407Bapjytz [Mass/Vol]457 mg/dL Critically qigt17-179QliMansfield HospitalComment on above:Performed By: #### POCGLUC ####[facility] Kjrlpqiagi639[address] [place], [place] [address]Dr. Mirandalan ChangPROF CHEM 8 (BAS METB)on 08-26-4275Ressl gap [Moles/Vol]11.9 mmol/LNormalMansfield HospitalComment on above:Performed By: #### HSTROPN, BNP, BMP ####[facility] Ofzwcllblz76[address] [place] [address]Dr. Yilan ChangCalcium [Mass/Vol]10.2 mg/dLCritically high8.5-10.1The [facility] - DublinComment on above:Performed By: #### HSTROPN, BNP, BMP ####[facility] Akgnouuezk[address] [place] [address]Dr. Yilan ChangChloride [Moles/Vol]96 mmol/LCritically zrl06-963Ksf [facility] DublinComment on above:Performed By: #### HSTROPN, BNP, BMP ####[facility] Vqvhpimgjs88[address] [place] [address]Dr. Yilan ChangCO2 [Moles/Vol]28.7 mmol/SIvdzlp75.0-32.0The [facility] - DublinComment on above: Performed By: #### HSTROPN, BNP, BMP ####[facility] Bqjttearhs[address] [place], [place] [address]Dr. Yilan ChangCreatinine [Mass/Vol]0.83 mg/dL Normal0.70-1.30The [facility] - DublinComment on above:Performed By: #### HSTROPN, BNP, BMP ####[facility] Yvxkqidcci[address] [place] [address]Dr. Yilan ChangEGFR-AF NEPALESE>60Normal>=60The [facility] - DublinComment on above:Performed By: #### HSTROPN, BNP, BMP ####[facility] Rekrzckojs7[address] [place] [address]Dr. Yilan ChangEGFR-NON AF NEPALESE>60Normal >=60The [facility] - DublinComment on above:Performed By: #### HSTROPN, BNP, BMP ####[facility] Cwgpcankkw7[address] [place] [address]Dr. Yilan ChangGlucose [Mass/Vol]470 mg/dLCritically ovko46-979Ifi [facility] Comment on above:Performed By: #### HSTROPN, BNP, BMP ####[facility] Cithrnxghp[address] [place] [address]Dr. Abhinav LagunaPotassium [Moles/Vol]4.6 mmol/LNormal3.5-5.1The [facility] DublinComment on above: Performed By: #### HSTROPN, BNP, BMP ####[facility] Whosmrkmeu64[address] [place] [address]Dr. Abhinav ChangSodium [Moles/Vol]132 mmol/L Critically evc407-845Zuc [facility] DublinComment on above:Performed By: #### HSTROPN, BNP, BMP ####[facility] Ojfxioiapb54[address] [place] [address]Dr. Abhinav ChangUrea nitrogen [Mass/Vol]18.0 mg/dLNormal7.0-18.0M[facility]field HospitalComment on above:Performed By: #### HSTROPN, BNP, BMP ####[facility] Vxxttzfplq[address] [place], [place] [address]Dr. Abhinav ChangUrea nitrogen/Creatinine [Mass ratio]21.7 mg/mgNormalThe [facility] - DublinComment on above:Performed By: #### HSTROPN, BNP, BMP ####[facility] Egwlgwulwn47[address] [place] [address]Dr. Abhinav Laguna TROPONIN, HIGH SENSITIVITYon 92-85-3728GWSNER02.1 pg/mLNormal4.0-76.1[facility] on above:Result Comment: CUT-OFF POINTS HAVE BEEN ESTABLISHED BASED ON THE FOURTH UNIVERSAL DEFINITIONS OF MYOCARDIALINFARCTION. THE UPPER REFERENCE LIMIT (URL) OF TROPONIN, DEFINED THE 99TH PERCENTILE OFcT nI DISTRIBUTION IN A REFERENCE POPULATION, HAS BEEN CONFIRMED THE DECISION THRESHOLDFOR OR DIAGNOSIS.Performed By: #### HSTROPN, BNP, BMP ####[facility] Qwdtbbtueo24[address] [place] [address]Dr. Abhinav ChangXR CHEST 1 Von 02-92-7845NH CHEST 1 VNormalMansfield HospitalACETONE SERUMon 64-79-2319XOLPTXJYnnxvhvhHnykwbZHILZFRNLwc [facility] DublinComment on above: Performed By: #### ACETON ####[facility] Qnseyvjxvm4[address] [place] [address]Dr. Abhinav LagunaAMMONIAon 81-33-3095Bsznmhg (P) [Moles/Vol]13 umol/HZstqrj33-42Bnq [facility] DublinComment on above:Performed By: #### AMM ####[facility] Tvbuitwrdn9[address] [place], [place] [address]Dr.Abhinav LagunaCBC AUTO DIFFon 32-92-4940NFPV #0.1 103/ulNormal0.0-0.1The [facility] - DublinComment on above:Performed By: #### CBC ####[facility] Lvvhoyntby0924[address] [place], [place] [address]Dr.Mirandagallo JaseBasophils/100 WBC (Bld)0.7 %Normal0.2-2.0The [facility] - DublinComment on above:Performed By: #### CBC ####[facility] Bbhsayzolu223[address] [place], [place] [address]Dr.Mirandalan ChangEO #0.2 103/ulNormal0.0-0.7The [facility] - DublinComment on above:Performed By: #### CBC ####[facility] Cqtdrsywnb8009[address] [place], [place] [address]Dr.Abhinav ChangEosinophils/100 WBC (Bld)2.1 %Normal 0.9-7.0The [facility] - DublinComment on above:Performed By: #### CBC ####[facility] Ubtzxmznld3[address] [place], [place] [address]Dr.Abhinav Laguna Erythrocyte distribution width (RBC) [Ratio]12.0 %Aljjhk13.0-15.0The [facility] - DublinComment on above:Performed By: #### CBC ####[facility] Kocfohhrkn6157[address] [place], [place] [address]Dr.Mirandagallo JaseHematocrit (Bld) [Volume fraction]47.3 %Splsta39.0-54.0The [facility] - DublinComment on above:Performed By: #### CBC ####[facility] Mtxffwmffe07[address] [place], [place] [address]Dr.Abhinav LagunaHemoglobin (Bld) [Mass/Vol]17.2 g/dL Feltcx60.0-18.0The [facility] - DublinComment on above:Performed By: #### CBC ####[facility] Jmpbzawpqq[address] [place] [address]Dr. Abhinav ChangIG #0.02 10e3/ulNormal0.00-0.03The [facility] - DublinComment on above: Performed By: #### CBC ####[facility] Vfqgpaofxo58[address] [place] [address]Dr.Abhianv ChangIG %0.2 %Normal0.0-0.5The [facility] - DublinComment on above:Performed By: #### CBC ####[facility] Opplwswjpp[address] [place], [place] [address]Dr.Abhinav ChangLYMPH #2.4 103/ulNormal1.2-3.8The [facility] - DublinComment on above:Performed By: #### CBC ####[facility] Zgoeroknyy[address] [place], [place] [address]Dr. Abhinav LagunaLymphocytes/100 WBC (Bld)23.3 %Brzdbd64.5-60.0The [facility] Comment on above:Performed By: #### CBC ####[facility] Jgupqxjceb48[address] [place], [place] [address]Dr.Abhinav LagunaMANUAL DIFF REQNONormalThe [facility] - DublinComment on above:Performed By: #### CBC ####[facility] Ovaanlzboo[address] [place], [place] [address]Dr.Abhinav LagunaCALVARY HOSPITAL (RBC) [Entitic mass]31.0 yiBfbphi77.9-34.0The [facility] - DublinComment on above: Performed By: #### CBC ####[facility] Mxowtgthbo97[address] [place], [place] [address]Dr.Abhinav LgaunaMANHATTAN PSYCHIATRIC [facility] (RBC) [Mass/Vol]36.4 g/dLCritically high29.9-35.2The [facility] DublinComment on above:Performed By: #### CBC ####[facility] Mxswdyodvx8[address] [place] [address]Dr. Abhinav LagunaMCV (RBC) [Entitic vol]85.4 aKLbhaes01.0-94.0The [facility] [facility] Comment on above:Performed By: #### CBC ####[facility] Iualcoxakz[address] [place], [place] [address]Dr.Abhinav LagunaMONO #0.6 103/ulNormal0.3-0.8 The [facility] DublinComment on above:Performed By: #### CBC ####[facility] Qbtayefoly6308[address] [place], [place] [address]Dr.Abhinav Laguna Monocytes/100 WBC (Bld)6.0 %Normal1.7-12.0The [facility] - DublinComment on above: Performed By: #### CBC ####[facility] Qxuzvedbzo4244[address] [place], [place] [address]Dr.Abhinav LagunaNEUT #6.9 103/ulCritically high1.4-6.5 The [facility] DublinComment on above:Performed By: #### CBC ####[facility] Trxwagqqji[address] [place], [place] [address]Dr.Abhinav Laguna Neutrophils/100 WBC (Bld)67.7 %Lbwjeo24.0-75.0The [facility] DublinComment on above:Performed By: #### CBC ####[facility] Wlqchapslt6364[address] [place], [place] [address]Dr.Abhinav JasePlatelet mean volume (Bld) [Entitic vol] 10.4 fLNormal9.5-13.5The [facility] DublinComment on above:Performed By: #### CBC ####[facility] Njgccxqxuw508[address] [place], [place] [address]Dr. Abhinav IxzxtVBB127 103/lhDpmptp891-994Cyp [facility] DublinComment on above: Performed By: #### CBC ####[facility] Lrnxxrrccn5538[address] [place], [place] [address]Dr.Abhinav JaseRBC5.54 106/ulNormal4.70-6.10The [facility] DublinComment on above:Performed By: #### CBC ####[facility] Jnmiopjjno[address] [place] [address]Dr.Abhinav LagunaWBC10.3 103/ul Normal4.0-11.0The [facility] on above:Performed By: #### CBC ####[facility] Lsaysyxfmc[address] [place] [address]Dr. Abhinav LagunaCT STROKE HEAD WOon 29-97-1147EG STROKE HEAD WONormalThe [facility] DublinCovid-19 PCR (CVDTBH)on 39-42-4244CIFV-CoV-2 (COVID-19) RNA EVERT+probe Ql (Unsp spec)Not detectedNormalNOT DETECTEDThe [facility] on above: Result Comment: When diagnostic testing is negative, the possibility of a false negative should be considered inthe context of a patient's recent exposures and the presence of clinical signs and symptomsconsistent with SARS-CoV-2.This test is not yet approved or cleared by the [place] FDA. When there are no FDA- approved or cleared tests available, and other criteria are met, FDA can make tests available under an emergency access mechanism called an Emergency Use Authorization (EUA). The EUA for this test is supported by the [place] of Health and Human Service's declaration that circumstances exist to justify the emergency use of in vitro diagnostics for the detection and/or diagnosis of the virus that causes COVID-19. This EUA will remain in effect for the duration of the COVID-19declaration justifying emergency of IVDs, unless it is terminated or revoked by the FDA (after which the test may no longer be used).Performed By: #### CVDTBH ####[facility] Fyeqvkwcnm[address] [place] [id number]. Mirandagallo LagunaDRUG SCREEN RAPID (URINE)on 57-24-7220JLVRzljlfqgJhzqlr NEGATIVESalem City Hospital on above:Performed By: #### YASMINE DRUGRPD ####[facility] Gndssomiar[address] [place] [address]Dr. Mirandagallo LagunaBARNegativeNormalNEGATIVEThe [facility] DublinComment on above: Performed By: #### ERUDale DRUGRPD ####[facility] Hcgiygnony20[address] [place], [place] [address]Dr. Abhinav ChangBUPNegativeNormalNEGATIVEMansfield HospitalComment on above:Performed By: #### YASMINE DRUGRPD ####[facility] Pbzjjfebbf3020[address] [place], [place] [address]Dr. Abhinav ChangBZONegative NormalNEGATIVEMansfield HospitalComment on above:Performed By: #### YASMINE DRUGRPD ####[facility] Vwxotojgry3140[address] [place], [place] [address]Dr. Abhinav ChangCOCNegativeNormalNEGATIVEMansfield HospitalComment on above:Performed By: #### YASMINE DRUGRPD ####[facility] Oqqmnmpvsq4624[address] [place], [place] [address]Dr. Abhinav LagunaCUT-OFFSE [facility] HospitalComment on above:Result Comment: AMP (Amphetamine): 500ng/mL, BAR (Barbituates): 200 ng/mL, BZO (Benzodiazepines): 150 ng/mL, BUP (Buprenorphine): 10 ng/mL, ISELA (Cocaine): 150 ng/mL, mAMP (Methamphetamine): 500 ng/mL, MTD (Methadone): 200 ng/mL, OPI (Opiates): 100 ng/mL, OXY (Oxycodone): 100 ng/mL, PCP (Phencyclidine): 25 ng/mL, PPX (Propoxyphene): 300 ng/mL, THC (Cannabinoids): 50 ng/mL, TCA (Trycyclic Antidepressants): 300 ng/mLPerformed By: #### YASMINE DRUGRPD ####[facility] Gbqicwoagp9550[address] [place], [place] [address]Dr. Abhinav LagunaDRUG CUT HEADERDRUG CLASS TEST SYSTEM CUT-OFF CONCENTRATIONS ARE FOLLOWS:NormalMansfield HospitalComment on above:Performed By: #### YASMINE DRUGRPD ####[facility] Bglpltcvls2039[address] [place], [place] [address]Dr. Abhinav LagunamAMPPositiveAbnormalNEGATIVEMansfield HospitalComment on above:Performed By: #### YASMINE DRUGRPD ####[facility] Zoxgozbzpq[address] [place] [address]Dr. Yilan ChangMTD NegativeNormalNEGATIVETrihealth M[facility] HospitalComment on above:Performed By: #### ERUR, DRUGRPD ####[facility] Xyltdhoqzc89[address] [place], [place] [address]Dr. Yilan ChangOPINegativeNormalNEGATIVETrihealth [facility] HospitalComment on above:Performed By: #### ERUR, DRUGRPD ####[facility] Omcspbsrhj6906[address] [place], [place] [address]Dr. Yilan ChangOXYNegativeNormalNEGATIVETrihealth [facility] HospitalComment on above:Performed By: #### ERUR, DRUGRPD ####[facility] Wqzodlliuu1728[address] [place], [place] [address]Dr. Yilan ChangPCP NegativeNormalNEGATIVETrihealth [facility] HospitalComment on above:Performed By: #### ERUR, DRUGRPD ####[facility] Kpyjypqxdq9014[address] [place], [place] [address]Dr. Yilan ChangPPXNegativeNormalNEGATIVETrihealth [facility] HospitalComment on above:Performed By: #### ERUR, DRUGRPD ####[facility] Ruwfjohlnz3077[address] [place], [place] [address]Dr. Yilan ChangTCANegativeNormalNEGATIVETrihealth [facility] HospitalComment on above:Performed By: #### ERUR, DRUGRPD ####[facility] Bdtdkpczqx8232[address] [place], [place] [address]Dr. Yilan ChangTHC PositiveAbnormalNEGATIVETrihealth [facility] HospitalComment on above:Performed By: #### ERUR, DRUGRPD ####[facility] Oznznnnrtw5445[address] [place], [place] [address]Dr. Yilan ChangER URINE PROFILEon 20-39-8599Wrxrkxklo Ql (U)Negative NormalNEGATIVETrihealth Mccull[facility] HospitalComment on above:Performed By: #### ERUR, DRUGRPD ####[facility] Gkmiwfoxvf6356 West Main StreetBellevue, [place] [address]Px. Yilan ChangClarity (U)CLEARNormalCLEARTrihealth M[facility] HospitalComment on above:Performed By: #### ERUR, DRUGRPD ####[facility] Brhxrzwcvq1207[address] [place], [place] [address]Dr. Yilan ChangColor (U)LT. YELLOWNormalYELLOWMansfield HospitalComment on above:Performed By: #### CATALINAR, DRUGRPD ####[facility] Vaqodrxqzh5089[address] [place], [place] [address]Dr. Abhinav Laguna ERUAHDA micrscopic examination will be performed if indicated.NormalThe [facility] DublinComment on above:Performed By: #### CATALINAR DRUGRPD ####[facility] Aqtbgobwst634[address] [place], [place] [address]Dr. Mirandalan ChangGlucose Ql (U) >1000AbnormalNEGATIVEMansfield HospitalComment on above:Performed By: #### CATALINAR DRUGRPD ####[facility] Zlfwpsjvsl3207[address] [place], [place] [address]Dr. Yilan ChangHemoglobin Ql (U)NegativeNormalNEGATIVEMansfield HospitalComment on above:Performed By: #### CATALINAR, DRUGRPD ####[facility] Jlsmhwpqrw1036[address] [place], [place] [address]Dr. Yilan ChangKetones Ql (U) NegativeNormalNEGATIVEMansfield HospitalComment on above:Performed By: #### CATALINAR DRUGRPD ####[facility] Ogytngjgug3569[address] [place], [place] [address]Dr. Yilan ChangLEUKOCYTESNegativeNormalNEGTwin City Hospital Comment on above:Performed By: #### ERUR, DRUGRPD ####[facility] Aobqvpqpcl5248[address] [place], [place] [address]Dr. Yilan ChangNitrite Ql (U) NegativeNormalNEGATIVEMansfield HospitalComment on above:Performed By: #### ERUR, DRUGRPD ####[facility] Pljhbatnmy2780[address] [place], [place] [address]Dr. Yilan ChangpH (U)6.0 [pH]Normal5-9The [facility] HospitalComment on above:Performed By: #### YASMINE DRUGRPD ####[facility] Lyvxbnagfx603[address] [place], [place] [address]Dr. Abhinav LagunaSPEC GRAVITY<=1.005Abnormal 1.005-<=1.025The [facility] DublinComment on above:Performed By: #### YASMINE DRUGRPD ####[facility] Kkrecgkuzi127[address] [place], [place] [address]Dr. Yilan ChangUA PROTEINNegativeNormalNEGATIVE/ TRACEMansfield Hospital Comment on above:Performed By: #### YASMINE DRUGRAQUELD ####[facility] Hjddamshjg5149[address] [place], [place] [address]Dr. Mirandalan JaseUR MICRO IND NOT INDICATEDNormalThSumma HealthComment on above:Performed By: #### YASMINE DRUGRAQUELD ####[facility] Nkcubmcnsk4320[address] [place], [place] [address]Dr. Yigallo ChangUrobilinogen Qn (U)0.2 {Marshall'U}/dLNormal0.2 - 1.0Mansfield HospitalComment on above:Performed By: #### YASMINE DRUGRAQUELD ####[facility] Clqrhoacvs5277[address] [place], [place] [address]Dr. Abhinav Laguna POINT OF CARE GLUCOSEon 14-55-4686Kafqlhb [Mass/Vol]162 mg/dLCritically high 74-106Mansfield HospitalComment on above:Performed By: #### POCGLUC ####[facility] Alksazptjq8912[address] [place], [place] [address]Dr. Abhinav ChangGlucose [Mass/Vol]303 mg/dLCritically xdoi81-166MnvMansfield Hospital Comment on above:Performed By: #### POCGLUC ####[facility] Vuukbalypk679[address] [place], [place] [address]Dr. Mirandalan ChangGlucose [Mass/Vol]404 mg/dL Critically ixod55-190XucMansfield HospitalComment on above:Performed By: #### POCGLUC ####[facility] Zswjrtajgr[address] [place], [place] [address]Dr. Yilan ChangPROF 14(COMP METB)on 44-40-9792Prrxbfa [Mass/Vol]3.3 g/dL Critically low3.4-5.0The [facility] DublinComment on above:Performed By: #### CMP ####[facility] Srnzdrcpvu4775[address] [place], [place] [address]Dr. Yilan ChangAlbumin/Globulin [Mass ratio]0.8 {ratio}NormalThe [facility] Comment on above:Performed By: #### CMP ####[facility] Sxapcnwlvt9599[address] [place], [place] [address]Dr.Yilan ChangALP [Catalytic activity/Vol] 290 U/LCritically qmnj14-764Iyb [facility] DublinComment on above:Performed By: #### CMP ####[facility] Niobusjqmp5457[address] [place], [place] [address]Dr.Yilan ChangALT [Catalytic activity/Vol]36 U/FOvbkfi37-75Igs [facility] DublinComment on above:Performed By: #### CMP ####[facility] Oydqsdykia686[address] [place], [place] [address]Dr.Yilan ChangAnion gap [Moles/Vol]9.1 mmol/LNormalThe [facility] DublinComment on above:Performed By: #### CMP ####[facility] Selupmwpcj228[address] [place], [place] [address]Dr.Yilan ChangAST [Catalytic activity/Vol]16 U/XRduara22-72Niq [facility] DublinComment on above:Performed By: #### CMP ####[facility] Nzuglnwdli816[address] [place], [place] [address]Dr.Yilan ChangBilirubin [Mass/Vol]0.5 mg/dLNormal0.2-1.0The [facility] DublinComment on above:Performed By: #### CMP ####[facility] Ivauzlyjqf9205[address] [place], [place] [address]Dr.Yilan ChangCalcium [Mass/Vol]10.2 mg/dLCritically high8.5-10.1The [facility] DublinComment on above:Performed By: #### CMP ####[facility] Gofqsngmsv7[address] [place] [address]Dr.Yilan ChangChloride [Moles/Vol]94 mmol/LCritically loz46-370Fnv [facility] DublinComment on above: Performed By: #### CMP ####[facility] Okbknwicvi060[address] [place] [address]Dr.Yilan ChangCO2 [Moles/Vol]29.3 mmol/LNormal 21.0-32.0The [facility] DublinComment on above:Performed By: #### CMP ####[facility] Zydnntbotg094[address] [place], [place] [address]Dr. Yilan ChangCreatinine [Mass/Vol]0.91 mg/dLNormal0.70-1.30The [facility] Comment on above:Performed By: #### CMP ####[facility] Dteplilzyx3639[address] [place], [place] [address]Dr.Yilan ChangEGFR-AF NEPALESE>60Normal>=60 The [facility] DublinComment on above:Performed By: #### CMP ####[facility] Mmyhyuvxwz9898[address] [place], [place] [address]Dr.Yilan ChangEGFR- NON AF NEPALESE>60Normal>=60The [facility] DublinComment on above:Performed By: #### CMP ####[facility] Zkutdkyrjr138[address] [place], [place] [address]Dr.Yilan ChangGlobulin (S) [Mass/Vol]4.3 g/dLNormalThSumma Health Comment on above:Performed By: #### CMP ####[facility] Oevxjvvufq7278[address] [place], [place] [address]Dr.Yilan ChangGlucose [Mass/Vol]562 mg/dL Critically pgpe51-010Wak [facility] DublinComment on above:Performed By: #### CMP ####[facility] Tgjahcvthg164[address] [place], [place] [address]Dr. Yilan ChangPotassium [Moles/Vol]4.4 mmol/LNormal3.5-5.1The [facility] Comment on above:Performed By: #### CMP ####[facility] Nxqdrqptpe33[address] [place] [address]Dr.Yilan ChangProtein [Mass/Vol]7.6 g/dL Normal6.4-8.2The [facility] DublinComment on above:Performed By: #### CMP ####[facility] Grhgehruzj166[address] [place], [place] [address]Dr. Yilan ChangSodium [Moles/Vol]128 mmol/LCritically sel145-068Dir [facility] DublinComment on above:Performed By: #### CMP ####[facility] Zhprovdare7522[address] [place], [place] [address]Dr.Yilan ChangUrea nitrogen [Mass/Vol]21.0 mg/dLCritically high7.0-18.0The [facility] DublinComment on above:Performed By: #### CMP ####[facility] Bnbficsyrv5522[address] [place], [place] [address]Dr.Yilan ChangUrea nitrogen/Creatinine [Mass ratio] 23.1 mg/mgNormalThe [facility] DublinComment on above:Performed By: #### CMP ####[facility] Yuybffzjls5190[address] [place], [place] [address]Dr. Yilan ChangXR CHEST 1 Von 85-32-4901XJ CHEST 1 VNormalThe [facility] ACETAMINOPHENon 99-89-7679Gkrekklyvfimx [Mass/Vol]ug/mLCritically low10.0-30.0 The [facility] DublinComment on above:Performed By: #### TSH, CMP, SALYC, HSTROPN, ETH, ACET ####[facility] Xjdlnbzauw650[address] [place], [place] [address]Dr. Yilan ChangACETONE SERUMon 54-60-1081DYJICLZ NegativeNormalNEGATIVEThe [facility] DublinComment on above:Performed By: #### ACETON ####[facility] Eefptabokr8213[address] [place], [place] [address]Dr. Yilan ChangAMMONIAon 38-34-1338Wxuneiw (P) [Moles/Vol]21 umol/LNormal 11-32The [facility] DublinComment on above:Performed By: #### AMM ####[facility] Miiuybgrjv25[address] [place] [address]Dr.Abhinav LagunaCBC AUTO DIFFon 80-89-7742QIUM #0.1 103/ulNormal0.0-0.1The [facility] Healthment on above:Performed By: #### CBC ####[facility] Taqyjicxiv3700[address] [place], [place] [address]Dr.Abhinav ChangBasophils/100 WBC (Bld)0.5 %Normal 0.2-2.0The [facility] DublinComment on above:Performed By: #### CBC ####[facility] Lxlomfnekz3675[address] [place], [place] [address]Dr.Mirandalan ChangEO # 0.3 103/ulNormal0.0-0.7The [facility] DublinComment on above:Performed By: #### CBC ####[facility] Jlrfogwqyi5640[address] [place], [place] [address]Dr. Abhinav ChangEosinophils/100 WBC (Bld)3.1 %Normal0.9-7.0The [facility] Comment on above:Performed By: #### CBC ####[facility] Gmfcxwknew5098[address] [place], [place] [address]Dr.Abhinav ChangErythrocyte distribution width (RBC) [Ratio]12.6 %Auytxl26.0-15.0The [facility] Healthment on above: Performed By: #### CBC ####[facility] Kuffongpgd8945[address] [place], [place] [address]Dr.Abhinav ChangHematocrit (Bld) [Volume fraction]42.9 % Fcpitp92.0-54.0The [facility] DublinComment on above:Performed By: #### CBC ####[facility] Xvtmyyqdfg157[address] [place], [place] [address]Dr. bAhinav ChangHemoglobin (Bld) [Mass/Vol]15.9 g/fJPhrcgs48.0-18.0The [facility] DublinComment on above:Performed By: #### CBC ####[facility] Dmwiunhqlx1328[address] [place], [place] [address]Dr.Abhinav ChangIG #0.05 10e3/ulCritically high0.00-0.03The [facility] DublinComment on above:Performed By: #### CBC ####[facility] Atmncixdvt[address] [place], [place] [address]DrNohemiAbhinav LagunaIG %0.5 %Normal0.0-0.5The [facility] HospitalComment on above: Performed By: #### CBC ####[facility] Swflmoijfv1545[address] [place], [place] [address]Dr.Mirandagallo JaseLYMPH #2.3 103/ulNormal1.2-3.8The [facility] HospitalComment on above:Performed By: #### CBC ####[facility] Fykoubnspz3409[address] [place], [place] [address]Dr.Mirandagallo JaseLoramphocytes/100 WBC (Bld)23.1 %Zmlffj32.5-60.0The [facility] HospitalComment on above:Performed By: #### CBC ####[facility] Kyepqdmotx4348[address] [place], [place] [address]Dr.Abhinav LagunaMANUAL DIFF REQNONormalThe [facility] DublinComment on above:Performed By: #### CBC ####[facility] Qxaurobtay639[address] [place], [place] [address]Dr.Abhinav LagunaCALVARY H[facility] (RBC) [Entitic mass]31.3 pgNormal 25.9-34.0The [facility] DublinComment on above:Performed By: #### CBC ####[facility] Zttyebiwqx632[address] [place], [place] [address]Dr. Abhinav LagunaHC (RBC) [Mass/Vol]37.1 g/dLCritically high29.9-35.2The [facility] HospitalComment on above:Performed By: #### CBC ####[facility] Thkaendwjp7069[address] [place], [place] [address]Dr.Abhinav LagunaV (RBC) [Entitic vol]84.4 aYNoppvr28.0-94.0The [facility] HospitalComment on above: Performed By: #### CBC ####[facility] Wmdgklccgi3665[address] [place], [place] [address]Dr.Abhinav LagunaMONO #0.8 103/ulNormal0.3-0.8The [facility] HospitalComment on above:Performed By: #### CBC ####[facility] Jgdqypbsjj0615[address] [place], [place] [address]Dr.Mirandalan ChangMonocytes/100 WBC (Bld)7.8 %Normal1.7-12.0The [facility] DublinComment on above:Performed By: #### CBC ####[facility] Zsyybapzxz03[address] [place], [place] [address]Dr.Abhinav ChangNEUT #6.4 103/ulNormal1.4-6.5The [facility] HospitalComment on above:Performed By: #### CBC ####[facility] Mzydpujidd8901[address] [place], [place] [address]Dr.Abhinav ChangNeutrophils/100 WBC (Bld)65.0 %Normal 43.0-75.0The [facility] HospitalComment on above:Performed By: #### CBC ####[facility] Tgccexbmfm1254[address] [place], [place] [address]Dr. Abhinav ChangPlatelet mean volume (Bld) [Entitic vol]11.2 fLNormal9.5-13.5The [facility] DublinComment on above:Performed By: #### CBC ####[facility] Rqxkzoyirb1880[address] [place], [place] [address]Dr.Abhinav MtmgqBUF104 103/ul Oxpbtc800-431Faz [facility] HospitalComment on above:Performed By: #### CBC ####[facility] Advrcyv[address] [place], [place] [address]Dr. Abhinav ChangRBC5.08 106/ulNormal4.70-6.10The Neeses HospitalComment on above: Performed By: #### CBC ####[facility] Qhwwzsiwkv[address] [place], [place] [address]Dr.Mirandalan ChangWBC9.9 103/ulNormal4.0-11.0The [facility] - DublinComment on above:Performed By: #### CBC ####[facility] Fobeejjvqq[address] [place], [place] [address]Dr.Abhinav LagunaCT STROKE HEAD WOon 24-81-4278GU STROKE HEAD WONormalThe Neeses HospitalCULTURE BLOODon 40-79-5013Ndcxtzbasvh examination of blood, cultureCulture Observations: NO GROWTH AT 5 DAYS.NormalTrihealth Mccullough-Hyde Memorial Hospital HospitalComment on above:Performed By: #### BLDCX2 ####[facility] [address]whmw[address] [place] [id number]. Abhinav LagunaMicroscopic examination of blood, cultureCulture Observations: NO GROWTH AT 5 DAYS.NormalTrihealth Mccullough-Hyde Memorial Hospital HospitalComment on above:Performed By: #### BLDCX1 ####[facility] Watjxmzlsh[address] [place] [address]Dr. Abhinav LagunaCovid-19 PCR (CVDTBH)on 21-56-0444TGPQ-CoV-2 (COVID-19) RNA EVERT+probe Ql (Unsp spec)Not detectedNormalNOT DETECTEDMansfield Hospital Comment on above:Result Comment: When diagnostic testing is negative, the possibility of a false negative should be considered inthe context of a patient's recent exposures and the presence of clinical signs and sympt omsconsistent with SARS-CoV-2.This test is not yet approved or cleared by the [place] FDA. When there are no FDA-approved or cleared tests available, and other criteria are met, FDA can make tests available under an emergency access mechanism called an Emergency Use Authorization (EUA). The EUA for this test is supported by the [employer] of Health and Human Service's declaration that circumstances exist to justify the emergency use of in vitro diagnostics for the detection and/or diagnosis of the virus that causes COVID-19. This EUA will remain in effect for the duration of the COVID-19declaration justifying emergency of IVDs, unless it is terminated or revoked by the FDA (after which the test may no longer be used).Performed By: #### CVDTBH ####[facility] Xihcxkujws[address] [place] [id number]. Abhinav LagunaDRUG SCREEN RAPID (URINE)on 58-97-5542XWOJkenuuzcIacgywrcNSWIIVZCVyo [facility] Comment on above:Performed By: #### DRUGRPMarco Antonio ERUR ####[facility] Koklyhtokc[address] [place], [place] [address]Dr. Yilan ChangBARNegative NormalNEGATIVEMansfield HospitalComment on above:Performed By: #### DRUGRPD, ERUR ####[facility] Ronjwmetpw67[address] [place], [place] [address]Dr. Yilan ChangBUPNegativeNormalNEGATIVEMansfield HospitalComment on above:Performed By: #### DRUGRPD, ERUR ####[facility] Dggqkxnped80[address] [place], [place] [address]Dr. Yilan ChangBZONegativeNormalNEGATIVEMansfield HospitalComment on above:Performed By: #### DRUGRPD, ERUR ####[facility] Azkggqfelp[address] [place], [place] [address]Dr. Yilan ChangCOC PositiveAbnormalNEGATIVEMansfield HospitalComment on above:Performed By: #### DRUGRPD, ERUR ####[facility] Fjblplzpyo4932[address] [place], [place] [address]Dr. Mirandalan ChangCUT-OFFSSEE [facility] HospitalComment on above:Result Comment: AMP (Amphetamine): 500ng/mL, BAR (Barbituates): 200 ng/mL, BZO (Benzodiazepines): 150 ng/mL, BUP (Buprenorphine): 10 ng/mL, ISELA (Cocaine): 150 ng/mL, mAMP (Methamphetamine): 500 ng/mL, MTD (Methadone): 200 ng/mL, OPI (Opiates): 100 ng/mL, OXY (Oxycodone): 100 ng/mL, PCP (Phencyclidine): 25 ng/mL, PPX (Propoxyphene): 300 ng/mL, THC (Cannabinoids): 50 ng/mL, TCA (Trycyclic Antidepressants): 300 ng/mLPerformed By: #### DRUGRPD, ERUR ####[facility] Lxiphylcvl01[address] [place], [place] [address]Dr. Abhinav LagunaDRUG CUT HEADERDRUG CLASS TEST SYSTEM CUT-OFF CONCENTRATIONS ARE FOLLOWS:NormalThe [facility] - DublinComment on above:Performed By: #### DRUGRPD, ERUR ####[facility] Qfznriklkq27[address] [place] [address]Dr. Yilan ChangmAMP PositiveAbnormalNEGATIVETrihealth Mccullough-Hy[facility] Memorial Hospital HospitalComment on above:Performed By: #### DRUGRPD, ERUR ####[facility] Cxbxgcysou[address] [place] [address]Dr. Yilan ChangMTDNegativeNormalNEGATIVETrihealth Mccullough-Hy[facility] Memorial Hospital HospitalComment on above:Performed By: #### DRUGRPD, ERUR ####[facility] Kbwcpcduof[address] [place], [place] [address]Dr. Yilan ChangOPINegativeNormalNEGATIVETrihealth Mccullough-[facility] Hospital HospitalComment on above:Performed By: #### DRUGRPD, ERUR ####[facility] Jshtuscijw7[address] [place], [place] [address]Dr. Yilan ChangOXY NegativeNormalNEGATIVETrihealth Mccullough-[facility] Hospital HospitalComment on above:Performed By: #### DRUGRPD, ERUR ####[facility] Ekngldruwv40[address] [place], [place] [address]Dr. Yilan ChangPCPNegativeNormalNEGATIVETrihealth Mccull[facility] Hospital HospitalComment on above:Performed By: #### DRUGRPD, ERUR ####[facility] Dsdhpfjuxr09[address] [place], [place] [address]Dr. Yilan ChangPPXNegativeNormalNEGATIVETrihealth Mccullough-[facility] Hospital HospitalComment on above:Performed By: #### DRUGRPD, ERUR ####[facility] Aguvvvnias[address] [place], [place] [address]Dr. Yilan ChangTCA NegativeNormalNEGATIVETrihealth Mccullough-[facility] Hospital HospitalComment on above:Performed By: #### DRUGRPD, ERUR ####[facility] Dkrrlsozye884[address] [place], [place] [address]Dr. Yilan ChangTHCPositiveAbnormalNEGATIVETrihealth Mccullough-[facility] Hospital HospitalComment on above:Performed By: #### DRUGRPD, ERUR ####[facility] Bnhdbgghen8820[address] [place], [place] [address]Dr. Yilan ChangER URINE PROFILEon 10-23-2022 Bilirubin Ql (U)NegativeNormalNEGATIVEMansfield HospitalComment on above: Performed By: #### DRUGRPD, ERUR ####[facility] Jshkvsnlwc55[address] [place], [place] [address]Dr. Yilan ChangClarity (U)CLEARNormalCLEARMansfield HospitalComment on above:Performed By: #### DRUGRPD, ERUR ####[facility] Lhpohmdfai5098[address] [place], [place] [address]Dr. Yilan ChangColor (U)LT. YELLOWNormalYELLOWMansfield HospitalComment on above:Performed By: #### DRUGRPD, ERUR ####[facility] Qehmzicvwz173[address] [place], [place] [address]Dr. Yilan ChangERUAHDA micrscopic examination will be performed if indicated.NormalMansfield HospitalComment on above:Performed By: #### DRUGRPD, ERUR ####[facility] Uotlwmqtbr7078[address] [place], [place] [address]Dr. Yilan ChangGlucose Ql (U)>1000AbnormalNEGATIVEMansfield HospitalComment on above:Performed By: #### DRUGRPD, ERUR ####[facility] Akeujiqtqj1298[address] [place], [place] [address]Dr. Yilan ChangHemoglobin Ql (U)NegativeNormalNEGATIVEMansfield HospitalComment on above:Performed By: #### DRUGRPD, ERUR ####[facility] Jjmizowfnk9657[address] [place], [place] [address]Dr. Yilan ChangKetones Ql (U)NegativeNormalNEGATIVETrihealth Mccullough-Hy[facility] Memorial Hospital HospitalComment on above:Performed By: #### DRUGRPD, ERUR ####[facility] Yrbcqrkehu5104[address] [place], [place] [address]Dr. Yilan Laguna LEUKOCYTESNegativeNormalNEGATIVETrihealth Mccullough-Hyde Memorial Hospital HospitalComment on above:Performed By: #### DRUGRPD, ERUR ####[facility] Rngewdwrid7[address] [place], [place] [address]Dr. Yilan ChangNitrite Ql (U)NegativeNormalNEGATIVEThe Neeses HospitalComment on above:Performed By: #### DRUGKARISSA, ERUR ####[facility] Vsagbcqdne8128[address] [place], [place] [address]Dr. Yigallo ChangpH (U)6.5 [pH]Normal5-9The Neeses HospitalComment on above:Performed By: #### DRUGKARISSA, ERUR ####[facility] Nbtvydzjvo7767[address] [place], [place] [address]Dr. Yigallo LagunaSPEC GRAVITY<=1.976Luiancwf6.005-<=1.025The Neeses HospitalComment on above:Performed By: #### DRUGKARISSA, ERUR ####[facility] Vfzavctogv4630[address] [place], [place] [address]Dr. Yilan ChangUA PROTEIN NegativeNormalNEGATIVE/ TRACEThe Neeses HospitalComment on above:Performed By: #### DRUGKARISSA, ERUR ####[facility] Tlthhnyvho32[address] [place], [place] [address]Dr. Yilan ChangUR MICRO INDNOT INDICATEDNoCleveland Clinic South Pointe HospitalComment on above:Performed By: #### DRUGKARISSA, ERUR ####[facility] Vwsxzhttbm22[address] [place], [place] [address]Dr. Mirandagallo Laguna Urobilinogen Qn (U)0.2 {Marshall'U}/dLNormal0.2 - 1.0The [facility] - DublinComment on above:Performed By: #### DRUGKARISSA, ERUR ####[facility] Ulupaqeane3320[address] [place], [place] [address]Dr. Yilan ChangETHANOL (BLD ALC)on 87-71-8211XXT NOTENOTE: 80 mg/dl is the legal limit for a blood alcohol level NormalThe Neeses HospitalComment on above:Performed By: #### TSH, CMP, SALYC, HSTROPN, ETH, ACET ####[facility] Neuxkdofbt15[address] [place], [place] [address]Dr. Yilan ChangEthanol [Mass/Vol]mg/dLMercy Health Clermont Hospital HospitalComment on above:Performed By: #### TSH, CMP, SALYC, HSTROPN, ETH, ACET ####[facility] Gyomoulprt[address] [place] [address]Dr. Abhinav LagunaLACTATE/LACTIC ACIDon 59-00-1753Ldbaqrl [Moles/Vol]2.8 mmol/LCritically high0.4-2.0The [facility] - DublinComment on above:Performed By: #### LACT ####[facility] Hiviuypjqr[address] [place], [place] [address]Dr. Abhinav LagunaPOINT OF CARE GLUCOSEon 14-91-4248KULJRNC>600Critically high 74-106The [facility] - DublinComment on above:Result Comment: Result Not Confirmed Performed By: #### POCGLUC ####[facility] Loehzdojsf[address] [place] [address]Dr. Abhinav LagunaPROF 14(COMP METB)on 76-80-0426Nwatxtl [Mass/Vol]3.3 g/dLCritically low3.4-5.0The [facility] - DublinComment on above: Performed By: #### TSH, CMP, SALYC, HSTROPN, ETH, ACET ####[facility] Ehynxcfjjf[address] [place] [address]Dr. Abhinav Laguna Albumin/Globulin [Mass ratio]0.8 {ratio}NormalThe [facility] on above:Performed By: #### TSH, CMP, SALYC, HSTROPN, ETH, ACET ####[facility] Xyrybjkhqg[address] [place] [address]Dr. Abhinav LagunaALP [Catalytic activity/Vol]529 U/LCritically erpb63-916Zwf [facility] DublinComment on above:Performed By: #### TSH, CMP, SALYC, HSTROPN, ETH, ACET ####[facility] Etqrlkbhaj[address] [place] [address]Dr. Abhinav LagunaALT [Catalytic activity/Vol]35 U/EYcprdb11-18Lyz [facility] DublinComment on above: Performed By: #### TSH, CMP, SALYC, HSTROPN, ETH, ACET ####[facility] Meyysbcwbb[address] [place] [address]Dr. Yilan ChangAnion gap [Moles/Vol]5.9 mmol/LNormalThe Kettering Healthment on above:Performed By: #### TSH, CMP, SALYC, HSTROPN, ETH, ACET ####[facility] Dmouerxwjt[address] [place] [address]Dr. Yilan ChangAST [Catalytic activity/Vol] 12 U/LCritically wxr92-78Kxi [facility] DublinComment on above:Performed By: #### TSH, CMP, SALYC, HSTROPN, ETH, ACET ####[facility] Tnagszupmd[address] [place] [address]Dr. Yilan ChangBilirubin [Mass/Vol]0.3 mg/dL Normal0.2-1.0The [facility] - DublinComment on above:Performed By: #### TSH, CMP, SALYC, HSTROPN, ETH, ACET ####[facility] Avylsqmbty[address] [place] [address]Dr. Yilan ChangCalcium [Mass/Vol]10.6 mg/dLCritically high8.5-10.1The [facility] on above:Performed By: #### TSH, CMP, SALYC, HSTROPN, ETH, ACET ####[facility] Tymtotvavz[address] [place] [address]Dr. Yilan ChangChloride [Moles/Vol]93 mmol/LCritically kmt28-123Wmk [facility] DublinCombaraga county memorial hospital on above:Performed By: #### TSH, CMP, SALYC, HSTROPN, ETH, ACET ####[facility] Isqlpehyas[address] [place] [address]Dr. Yilan ChangCO2 [Moles/Vol]31.5 mmol/LNormal 21.0-32.0The [facility] on above:Performed By: #### TSH, CMP, SALYC, HSTROPN, ETH, ACET ####[facility] Irxcpskmqm[address] [place] [address]Dr. Yilan ChangCreatinine [Mass/Vol]1.03 mg/dLNormal 0.70-1.30The [facility] Healthment on above:Performed By: #### TSH, CMP, SALYC, HSTROPN, ETH, ACET ####[facility] Nlmaogeifv[address] [place] [address]Dr. Yilan ChangEGFR-AF NEPALESE>60Normal>=60The [facility] - DublinComment on above:Performed By: #### TSH, CMP, SALYC, HSTROPN, ETH, ACET ####[facility] Gainizfdhb[address] [place] [address]Dr. Yilan ChangEGFR-NON AF NEPALESE>60Normal>=60The [facility] Comment on above:Performed By: #### TSH, CMP, SALYC, HSTROPN, ETH, ACET ####[facility] Jocukhmtjo[address] [place] [address]Dr. Abhinav ChangGlobulin (S) [Mass/Vol]3.9 g/dLNormalThe [facility] DublinCombaraga county memorial hospital on above:Performed By: #### TSH, CMP, SALYC, HSTROPN, ETH, ACET ####[facility] Wyhopohohh[address] [place] [address]Dr. Abhinav Laguna Glucose [Mass/Vol]738 mg/dLCritically mbij95-114Xlj [facility] on above:Performed By: #### TSH, CMP, SALYC, HSTROPN, ETH, ACET ####[facility] Cufcssucju[address] [place] [address]Dr. Abhinav Laguna Potassium [Moles/Vol]4.4 mmol/LNormal3.5-5.1The [facility] DublinComment on above:Performed By: #### TSH, CMP, SALYC, HSTROPN, ETH, ACET ####[facility] Zmpeuqitbz54[address] [place] [address]Dr. Abhinav Laguna Protein [Mass/Vol]7.2 g/dLNormal6.4-8.2The [facility] Healthment on above: Performed By: #### TSH, CMP, SALYC, HSTROPN, ETH, ACET ####[facility] Awaqpywwvn[address] [place], [place] [address]Dr. Abhinav LagunaSodium [Moles/Vol]126 mmol/LCritically rch174-756Cwa [facility] on above: Performed By: #### TSH, CMP, SALYC, HSTROPN, ETH, ACET ####[facility] Mjewfmnczo4[address] [place] [address]Dr. Abhinav ChangUrea nitrogen [Mass/Vol]21.0 mg/dLCritically high7.0-18.0The [facility] - DublinComment on above:Performed By: #### TSH, CMP, SALYC, HSTROPN, ETH, ACET ####[facility] Ebybtbwzde[address] [place] [address]Dr. Abhinav ChangUrea nitrogen/Creatinine [Mass ratio]20.4 mg/mgNoOhioHealth Nelsonville Health Center on above:Performed By: #### TSH, CMP, SALYC, HSTROPN, ETH, ACET ####[facility] Dwqwyrukrk[address] [place] [address]Dr. Abhinav Laguna PROTIMEon 85-89-0073OKP Coag (PPP) [Relative time]0.95 {INR}NormalThe [facility] on above:Performed By: #### PT, PTT ####[facility] Dikdcxkyoz[address] [place] [address]Dr. Abhinav JaseINR GUIDELINES SEE BELOWTrumbull Regional Medical Center on above:Result Comment: DESIRED INR: 2.0 - 3.0 CONDITIONS NOT LISTED BELOW 2.5 - 3.5 FOR PROSTHETIC HEART VALVE REPLACEMENT 2.5 - 3.5 RECURRENT THROMBOSISPerformed By: #### PT, PTT ####[facility] Uwwgvqkeyr60[address] [place] [address]Dr. Abhinav JasePT Coag (PPP) [Time]10.1 sNormal9.0-11.6The [facility] on above:Performed By: #### PT, PTT ####[facility] Daixxohrhc[address] [place] [address]Dr. Mirandagallo LagunaPTTon 15-68-4652pBMF Coag (Bld) [Time]27.7 vJzvzih33.3-36.2The [facility] Healthment on above:Performed By: #### PT, PTT ####[facility] Heyhxhpcmh[address] [place] [address]Dr. Abhinav LagunaSALICYLATEon 25-17-4412DDVLSOKGMV<2.8Normal<=19.9The [facility] DublinComment on above:Performed By: #### TSH, CMP, SALYC, HSTROPN, ETH, ACET ####[facility] Tgbkkepftk[address] [place] [address]Dr. Abhinav LagunaTROPONIN, HIGH SENSITIVITYon 07-01-2646TVPEMD7.9 pg/mLNormal 4.0-76.1The [facility] on above:Result Comment: CUT-OFF POINTS HAVE BEEN ESTABLISHED BASED ON THE FOURTH UNIVERSAL DEFINITIONS OF MY OCARDIALINFARCTION. THE UPPER REFERENCE LIMIT (URL) OF TROPONIN, DEFINED THE 99TH PERCENTILE OFcTnI DISTRIBUTION IN A REFERENCE POPULATION, HAS BEEN CONFIRMED THE DECISION THRESHOLDFOR OR DIAGNOSIS.Performed By: #### TSH, CMP, SALYC, HSTROPN, ETH, ACET ####[facility] Pnxxrlettg30[address] [place] [address]Dr. Abhinav LagunaTSHon 58-99-5060RXR1.612 uIU/mLNormal 0.358-3.740The [facility] Healthment on above:Performed By: #### TSH, CMP, SALYC, HSTROPN, ETH, ACET ####[facility] Zhermsjcpw[address] [place] [address]Dr. Abhinav LagunaXR CHEST 1 Von 29-94-4642XZ CHEST 1 V NormalThe [facility] AUTO DIFFon 92-76-3800QJMN #0.0 103/ulNormal 0.0-0.1The [facility] Healthment on above:Performed By: #### CBC ####[facility] Wlaavvcate[address] [place] [address]Dr.Abhinav Laguna Basophils/100 WBC (Bld)0.4 %Normal0.2-2.0The [facility] Healthment on above: Performed By: #### CBC ####[facility] Gpbfbmjpuj9[address] [place] [address]Dr.Yilan ChangEO #0.2 103/ulNormal0.0-0.7The [facility] DublinComment on above:Performed By: #### CBC ####[facility] Tgootjomgn[address] [place], [place] [address]Dr.Yilan ChangEosinophils/100 WBC (Bld)2.8 %Normal0.9-7.0The [facility] - DublinComment on above:Performed By: #### CBC ####[facility] Bepgxijpqw9[address] [place], [place] [address]Dr.Yilan ChangErythrocyte distribution width (RBC) [Ratio]12.8 %Normal 11.0-15.0The [facility] - DublinComment on above:Performed By: #### CBC ####[facility] Qcnolouiml70[address] [place], [place] [address]Dr. Mirandalan ChangHematocrit (Bld) [Volume fraction]37.2 %Critically low42.0-54.0The [facility] DublinComment on above:Performed By: #### CBC ####[facility] Aqfqskxdvw[address] [place], [place] [address]Dr.Mirandalan ChangHemoglobin (Bld) [Mass/Vol]13.3 g/dLCritically low14.0-18.0The [facility] DublinComment on above:Performed By: #### CBC ####[facility] Hjlnghvdcr9594[address] [place], [place] [address]Dr.Yilan ChangIG #0.03 10e3/ulNormal0.00-0.03The [facility] DublinComment on above:Performed By: #### CBC ####[facility] Vqojuomgdu35[address] [place], [place] [address]Dr.Yilan ChangIG %0.4 %Normal 0.0-0.5The [facility] DublinComment on above:Performed By: #### CBC ####[facility] Cpxjgmrlim5[address] [place], [place] [address]Dr.Yilan ChangLYMPH #1.9 103/ulNormal1.2-3.8The [facility] DublinComment on above:Performed By: #### CBC ####[facility] Fbqhefsqhl37[address] [place], [place] [address]Dr.Abhinav LagunaLymphocytes/100 WBC (Bld)23.8 %Fgkdfm91.5-60.0The [facility] DublinComment on above:Performed By: #### CBC ####[facility] Nqothpnoqe[address] [place], [place] [address]Dr.Abhinav LagunaMANUAL DIFF REQ NONormalThe [facility] - DublinComment on above:Performed By: #### CBC ####[facility] Zukboojssn9[address] [place], [place] [address]Dr. Abhinav LagunaH (RBC) [Entitic mass]30.2 gzEryaqf06.9-34.0The [facility] Comment on above:Performed By: #### CBC ####[facility] Ooqtwpzmof355[address] [place], [place] [address]Dr.Mirandagallo LagunaHC (RBC) [Mass/Vol]35.8 g/dL Critically high29.9-35.2The [facility] DublinComment on above:Performed By: #### CBC ####[facility] Avlcnvlbdd205[address] [place], [place] [address]Dr.Mirandagallo LagunaV (RBC) [Entitic vol]84.5 wDUftmyr30.0-94.0The [facility] DublinComment on above:Performed By: #### CBC ####[facility] Srnbuimboy17[address] [place], [place] [address]Dr.Abhinav MariO #0.7 103/ulNormal0.3-0.8The [facility] DublinComment on above:Performed By: #### CBC ####[facility] Ouwmjuxwki[address] [place], [place] [address]Dr. Mirandagallo LagunaMonocytes/100 WBC (Bld)8.0 %Normal1.7-12.0The [facility] Comment on above:Performed By: #### CBC ####[facility] Nytukhpcpi48[address] [place], [place] [address]Dr.Yilan ChangNEUT #5.2 103/ulNormal1.4-6.5 The [facility] DublinComment on above:Performed By: #### CBC ####[facility] [facility] Yftnqnwusj6[address] [place], [place] [address]Dr.Abhinav Laguna Neutrophils/100 WBC (Bld)64.6 %Jxpjtt46.0-75.0The [facility] - DublinComment on above:Performed By: #### CBC ####[facility] Ybnxabskcz1325[address] [place], [place] [address]Dr.Abhinav LagunaPlatelet mean volume (Bld) [Entitic vol] 11.6 fLNormal9.5-13.5The [facility] - DublinComment on above:Performed By: #### CBC ####[facility] Bvmumqvjzd1378[address] [place], [place] [address]Dr. Abhinav LagunaPLT175 103/ruQuxkcb581-856Lmo [facility] - DublinComment on above: Performed By: #### CBC ####[facility] Oddypqywsp2825[address] [place], [place] [address]Dr.Abhinav LagunaRBC4.40 106/ulCritically low4.70-6.10The [facility] - DublinComment on above:Performed By: #### CBC ####[facility] Aslakivxgp0110[address] [place], [place] [address]Dr.Abhinav LagunaWBC8.1 103/ul Normal4.0-11.0Mansfield HospitalComment on above:Performed By: #### CBC ####[facility] Psqynltybs224[address] [place], [place] [address]Dr. Mirandagallo [facility] GLUCOSEon 18-07-4398Lwglzyq [Mass/Vol]258 mg/dL Critically mopt97-296Hhg [facility] DublinComment on above:Performed By: #### POCGLUC ####[facility] Ghfcdlqkpq6918[address] [place], [place] [address]Dr. Abhinav ChangGlucose [Mass/Vol]177 mg/dLCritically iwbo28-470Vpe [facility] DublinComment on above:Performed By: #### POCGLUC ####[facility] Ryysnleodp8665[address] [place], [place] [address]Dr. Yilan ChangPROF CHEM 8 (BAS METB)on 21-83-9088Isbqk gap [Moles/Vol]9.3 mmol/LNormalMansfield HospitalComment on above:Performed By: #### BMP ####[facility] Aycojgovhk4932[address] [place], [place] [address]Dr.Yilan ChangCalcium [Mass/Vol]8.6 mg/dLNormal8.5-10.1The [facility]eses HospitalComment on above:Performed By: #### BMP ####[facility] Mvkgurnijt1898[address] [place], [place] [address]Dr.Yilan ChangChloride [Moles/Vol]107 mmol/UFpxdea06-095Xve [facility] DublinComment on above:Performed By: #### BMP ####[facility] Tznwwlmgld366[address] [place], [place] [address]Dr.Yilan ChangCO2 [Moles/Vol] 22.7 mmol/HNibubl87.0-32.0The [facility] DublinComment on above:Performed By: #### BMP ####[facility] Svxxfqzmgt1249[address] [place], [place] [address]Dr.Yilan ChangCreatinine [Mass/Vol]0.79 mg/dLNormal0.70-1.30The [facility] DublinComment on above:Performed By: #### BMP ####[facility] Uqmtewkcjf739[address] [place], [place] [address]Dr.Yilan ChangEGFR-AF NEPALESE>60Normal>=60The [facility] DublinComment on above:Performed By: #### BMP ####[facility] Aolghooovs739068 [address] [place], [place] [address]Dr. Yilan ChangEGFR-NON AF NEPALESE>60Normal>=60The [facility] DublinCombaraga county memorial hospital on above:Performed By: #### BMP ####[facility] Bwqzcchvoo730[address] [place], [place] [address]Dr.Yilan ChangGlucose [Mass/Vol]159 mg/dLCritically rncm54-274Gsi [facility] DublinComment on above:Performed By: #### BMP ####[facility] Murigjmmsx[address] [place] [address]Dr. Abhinav ChangPotassium [Moles/Vol]4.0 mmol/LNormal3.5-5.1The [facility] Comment on above:Performed By: #### BMP ####[facility] Bogdpbrrvd6630[address] [place], [place] [address]Dr.Abhinav ChangSodium [Moles/Vol]135 mmol/L Critically ltn953-838Oyw [facility] DublinComment on above:Performed By: #### BMP ####[facility] Fqzfiuedwq5388[address] [place], [place] [address]Dr. Mirandalan ChangUrea nitrogen [Mass/Vol]29.0 mg/dLCritically high7.0-18.0The [facility] DublinComment on above:Performed By: #### BMP ####[facility] Ljffoligit0299[address] [place], [place] [address]Dr.Mirandalan ChangUrea nitrogen/Creatinine [Mass ratio]36.7 mg/mgNoCleveland Clinic South Pointe HospitalComment on above:Performed By: #### BMP ####[facility] Ztcihfxird6167[address] [place], [place] [address]Dr.Abhinav ChangAMMONIAon 87-69-2983Ahuqbah (P) [Moles/Vol]12 umol/FXxpwvf59-59Sdq [facility] DublinComment on above:Performed By: #### AMM ####[facility] Fcefvfrjfe0827[address] [place], [place] [address]Dr.Abhinav LagunaBLOOD GASES BTYon MODENASAL CANNULANoCleveland Clinic South Pointe HospitalComment on above:Performed By: #### ABG ####[facility] Nluiyficxr3877[address] [place], [place] [address]Dr.Abhinav LagunaALLENS TEST PositiveNoCleveland Clinic South Pointe HospitalComment on above:Performed By: #### ABG ####[facility] Wvzkwlavqm0138[address] [place], [place] [address]Dr. Mirandalan ChangBase excess Calc (Bld) [Moles/Vol]-6.2000 mmol/LCritically low -2.0-2.0The Nelly HospitalComment on above:Performed By: #### ABG ####[facility] Xaykhjgpne[address] [place] [address]Dr. Abhinav LagunaBIPAP PRESSUREHolmes County Joel Pomerene Memorial HospitalComment on above:Performed By: #### ABG ####[facility] Jjnuqdkqwq26[address] [place] [address]Dr.Yigallo ChangCPAPMercy Health Clermont Hospital HospitalComment on above:Performed By: #### ABG ####[facility] Usszoxxzew[address] [place] [address]Dr.Abhinav LsuscOIZ1UyyxmdNphHolmes County Joel Pomerene Memorial HospitalComment on above:Performed By: #### ABG ####[facility] Jzyouvtght7768[address] [place], [place] [address]Dr.Abhinav ChangHCO3 (Bld) [Moles/Vol]19.9 mmol/LCritically low22.0-26.0The [facility] DublinComment on above:Performed By: #### ABG ####[facility] Qrdemdvixx6214[address] [place], [place] [address]Dr.Abhinav RraflUNQ1AdpypcKqsHolmes County Joel Pomerene Memorial HospitalComment on above:Performed By: #### ABG ####[facility] Uqupxdloqx0338[address] [place], [place] [address]Dr.Abhinav ChangMINUTE VOLUME NormalThe [facility] DublinComment on above:Performed By: #### ABG ####[facility] Bulqjougdr0058[address] [place], [place] [address]Dr.Abhinav ChangOxygen (Bld) [Partial pressure]106.0 mm[Hg]Critically high80.0-100.0The [facility] DublinComment on above:Performed By: #### ABG ####[facility] Csvmngxxzr5701[address] [place], [place] [address]Dr.Abhinav LagunaOxygen saturation in Blood98.3 %Svvhsm37.0-100.0The [facility] DublinComment on above: Performed By: #### ABG ####[facility] Scyqnaqerb4546[address] [place], [place] [address]Dr.Abhinav UhwleNAZ530.6 sfHeFpumgs69.0-45.0Mansfield HospitalComment on above:Performed By: #### ABG ####[facility] Lxgvtfrvmi[address] [place] [address]Dr.[facility]anes[facility] City HospitalComment on above:Performed By: #### ABG ####[facility] Stwpwmagge[address] [place] [address]Dr.Abhinav LagunapH (Bld)7.320 [pH]Critically low7.350-7.450The [facility] DublinComment on above:Performed By: #### ABG ####[facility] Oxouhwoesl[address] [place] [address]Dr.[facility] Division– MilwaukeePIPNPremier Health Miami Valley HospitalComment on above:Performed By: #### ABG ####[facility] Dbieslemar4[address] [place] [address]Dr.[facility] Memorial HospitalComment on above:Performed By: #### ABG ####[facility] Pwutgqzlwo[address] [place], [place] [address]Dr.[facility] JasePUNCTURE Newark HospitalComment on above: Performed By: #### ABG ####[facility] Bvnpzkaplp[address] [place] [address]Dr.[facility]– MilwaukeeRATENormalSalem City Hospital on above:Performed By: #### ABG ####[facility] Qwzyfotwyv[address] [place], [place] [address]Dr.[facility] Comment on above:Performed By: #### ABG ####[facility] Luzupijesm20[address] [place], [place] [address]Dr.[facility] Comment on above:Performed By: #### ABG ####[facility] Wrnhnldybn9616[address] [place], [place] [address]Dr.Abhinav GomezPon 24-67-4157Vzfzqpyhvfn peptide B (Bld) [Mass/Vol]69.0 pg/mLNormal<=900.0The Kettering Healthment on above:Performed By: #### BNP, CMP, TSH, CMADM ####[facility] Fquwyiekyk[address] [place] [address]Dr. Abhinav LagunaCARDIAC GILMER ADMITon 24-71-7833JU [Catalytic activity/Vol]91 U/XDnpuuc06-144Yvv [facility]tering Healthment on above:Performed By: #### BNP, CMP, TSH, CMADM ####[facility] Uxniwlxfgd40[address] [place] [address]Dr. Abhinav LagunaCK.MB [Mass/Vol]4.08 ng/mLCritically high<=3.60The [facility] on above: Performed By: #### BNP, CMP, TSH, CMADM ####[facility] Qludxhuthn[address] [place] [address]Dr. Abhinav LagunaJrwcvFFUJJX54.8 pg/mLNormal 4.0-76.1The [facility] on above:Result Comment: CUT-OFF POINTS HAVE BEEN ESTABLISHED BASED ON THE FOURTH UNIVERSAL DEFINITIONS OF MY OCARDIALINFARCTION. THE UPPER REFERENCE LIMIT (URL) OF TROPONIN, DEFINED THE 99TH PERCENTILE OFcTnI DISTRIBUTION IN A REFERENCE POPULATION, HAS BEEN CONFIRMED THE DECISION THRESHOLDFOR OR DIAGNOSIS.Performed By: #### BNP, CMP, TSH, CMADM ####[facility] Viaaovpgiq[address] [place] [address]Dr. Abhinav LagunaMYO342 ng/mLCritically gbsl03-53Ixb [facility] on above:Performed By: #### BNP, CMP, TSH, CMADM ####[facility] Momhoxpkzx9[address] [place] [address]Dr. Abhinav LagunaCBC AUTO DIFF on 22-93-5342YDAQ #0.1 103/ulNormal0.0-0.1The [facility] on above: Performed By: #### CBC ####[facility] Fskyptdqhk64[address] [place] [address]Dr.Abhinav LagunaBasophils/100 WBC (Bld)0.6 %Normal 0.2-2.0The [facility] on above:Performed By: #### CBC ####[facility] Xsmsxfllsf5[address] [place] [address]Dr.Yilan ChangEO # 0.1 103/ulNormal0.0-0.7The [facility] DublinComment on above:Performed By: #### CBC ####[facility] Gnvqmykxcm9823[address] [place], [place] [address]Dr. Yilan ChangEosinophils/100 WBC (Bld)1.5 %Normal0.9-7.0The [facility] Comment on above:Performed By: #### CBC ####[facility] Uvkbzuftke2764[address] [place], [place] [address]Dr.Yilan ChangErythrocyte distribution width (RBC) [Ratio]12.8 %Iabglr58.0-15.0The [facility] DublinComment on above: Performed By: #### CBC ####[facility] Hkmdjnicdd9157[address] [place], [place] [address]Dr.Yilan ChangHematocrit (Bld) [Volume fraction]42.1 % Tqzkqv53.0-54.0The [facility] DublinComment on above:Performed By: #### CBC ####[facility] Uxkirmugwc1875[address] [place], [place] [address]Dr. Yilan ChangHemoglobin (Bld) [Mass/Vol]15.4 g/mRCeavhk95.0-18.0The [facility] DublinComment on above:Performed By: #### CBC ####[facility] Shjhzsbmut0289[address] [place], [place] [address]Dr.Yilan ChangIG #0.02 10e3/ulNormal0.00-0.03The [facility] DublinComment on above:Performed By: #### CBC ####[facility] Fzwfasnckd3310[address] [place], [place] [address]Dr. Yilan ChangIG %0.2 %Normal0.0-0.5The [facility] Healthment on above:Performed By: #### CBC ####[facility] Ywrsjlexnt5984[address] [place], [place] [address]Dr.Yilan ChangLYMPH #2.5 103/ulNormal1.2-3.8The [facility] Comment on above:Performed By: #### CBC ####[facility] Mildixftfd3457[address] [place], [place] [address]Dr.Abhinav LagunaLymphocytes/100 WBC (Bld)28.3 %Bsvscy56.5-60.0The [facility]es HospitalComment on above:Performed By: #### CBC ####[facility] Ijglktnjdx9528[address] [place], [place] [address]Dr. Abhinav LagunaMANUAL DIFF REQNONormalThe [facility]eses HospitalComment on above: Performed By: #### CBC ####[facility] Vbznfaafed7314[address] [place], [place] [address]Dr.Mirandagallo LagunaH (RBC) [Entitic mass]30.5 pgNormal 25.9-34.0The [facility]es HospitalComment on above:Performed By: #### CBC ####[facility] Bfvspjcjvu699[address] [place], [place] [address]Dr. Mirandagallo JaseHC (RBC) [Mass/Vol]36.6 g/dLCritically high29.9-35.2The [facility] HospitalComment on above:Performed By: #### CBC ####[facility] Ptkyylrtwx4678[address] [place], [place] [address]Dr.Mirandagallo JaseV (RBC) [Entitic vol]83.4 eVIzyapn65.0-94.0The [facility] HospitalComment on above: Performed By: #### CBC ####[facility] Hzvyytrlka0701[address] [place], [place] [address]Dr.Abhinav LagunaMONO #0.7 103/ulNormal0.3-0.8The [facility]es HospitalComment on above:Performed By: #### CBC ####[facility] Iigvwxwswq7128[address] [place], [place] [address]Dr.Abhinav LagunaMonocytes/100 WBC (Bld)7.3 %Normal1.7-12.0The [facility] DublinComment on above:Performed By: #### CBC ####[facility] Sahvtzvblf8887[address] [place], [place] [address]Dr.Abhinav LagunaNEUT #5.5 103/ulNormal1.4-6.5The [facility] DublinComment on above:Performed By: #### CBC ####[facility] Rxebyieuse057[address] [place], [place] [address]Dr.Abhinav LagunaNeutrophils/100 WBC (Bld)62.1 %Normal 43.0-75.0The [facility] DublinComment on above:Performed By: #### CBC ####[facility] Lnrrzizjbs717[address] [place], [place] [address]Dr. Abhinav LagunaPlatelet mean volume (Bld) [Entitic vol]11.6 fLNormal9.5-13.5The [facility] DublinComment on above:Performed By: #### CBC ####[facility] Cnktwvoqsv5345[address] [place], [place] [address]Dr.Abhinav LagunaPLT195 103/ul Bxjxzm979-167Fty [facility] DublinComment on above:Performed By: #### CBC ####[facility] Jeulzuuzmu380[address] [place], [place] [address]Dr. Abhinav ChangRBC5.05 106/ulNormal4.70-6.10The [facility] DublinComment on above: Performed By: #### CBC ####[facility] Tvghgsocuw9889[address] [place], [place] [address]Dr.Abhinav LagunaWBC8.9 103/ulNormal4.0-11.0The [facility] DublinComment on above:Performed By: #### CBC ####[facility] Yblwlcfdzb5275[address] [place], [place] [address]Dr.Abhinav LagunaCT CSPINE WO CONon 39-15-0165AJ CSPINE WO CONNormalMansfield HospitalCT STROKE HEAD WOon 55-05-8256CY STROKE HEAD WONormalMansfield HospitalCovid-19 PCR (CVDTBH)on 10-53-0061QPQT-CoV-2 (COVID-19) RNA EVERT+probe Ql (Unsp spec)Not detectedNormal NOT DETECTEDThe [facility] DublinComment on above:Result Comment: When diagnostic testing is negative, the possibility of a false negative should be c onsidered inthe context of a patient's recent exposures [...] for this test is supported by the [place] of Health and Human Service's declaration that circumstances exist to justify the emergency use of in vitro diagnostics for the detection and/or diagnosis of the virus that causes COVID-19. This EUA will remain in effect for the duration of the COVID-19declaration justifying emergency of IVDs, unless it is terminated or revoked by the FDA (after which the test may no longer be used).Performed By: #### CVDTBH ####[facility] Wydnmexavv2687[address] [place], [place] [address]Dr. Abhinav ChangDRUG SCREEN RAPID (URINE)on 38-68-8577LLGSnbagwoyBmezyomx NEGATIVEMansfield HospitalComment on above:Performed By: #### ERUR, DRUGRPD ####[facility] Airhhctncz4106[address] [place], [place] [address]Dr. Yigallo ChangBARNegativeNormalNEGATIVEMansfield HospitalComment on above: Performed By: #### ERUR, DRUGRPD ####[facility] Gkimkeosyn[address] [place], [place] [address]Dr. Abhinav ChangBUPNegativeNormalNEGATIVEMansfield HospitalComment on above:Performed By: #### ERUR, DRUGRPD ####[facility] Fduukktjdu4827[address] [place], [place] [address]Dr. Yigallo ChangBZONegative NormalNEGATIVEMansfield HospitalComment on above:Performed By: #### ERUR, DRUGRPD ####[facility] Psyppwnvii3246[address] [place], [place] [address]Dr. Yigallo ChangCOCNegativeNormalNEGATIVEMansfield HospitalComment on above:Performed By: #### ERUR, DRUGRPD ####[facility] Axlyqowvsv423[address] [place], [place] [address]Dr. Abhinav LagunaCUT-SHRINERS HOSPITALS FOR CHILDREN - PHILADELPHIAE Mercer County Community HospitalComment on above:Result Comment: AMP (Amphetamine): 500ng/mL, BAR (Barbituates): 200 ng/mL, BZO (Benzodiazepines): 150 ng/mL, BUP (Buprenorphine): 10 ng/mL, ISELA (Cocaine): 150 ng/mL, mAMP (Methamphetamine): 500 ng/mL, MTD (Methadone): 200 ng/mL, OPI (Opiates): 100 ng/mL, OXY (Oxycodone): 100 ng/mL, PCP (Phencyclidine): 25 ng/mL, PPX (Propoxyphene): 300 ng/mL, THC (Cannabinoids): 50 ng/mL, TCA (Trycyclic Antidepressants): 300 ng/mLPerformed By: #### ERUR, DRUGRPD ####[facility] Blyncskvpe7[address] [place], [place] [address]Dr. Abhinav LagunaDRUG CUT HEADERDRUG CLASS TEST SYSTEM CUT-OFF CONCENTRATIONS ARE FOLLOWS:NormalMansfield HospitalComment on above:Performed By: #### ERUR, DRUGRPD ####[facility] Whxxayxzpv0178[address] [place], [place] [address]Dr. Abhinav LagunamAMPPositiveAbnormalNEGATIVEMansfield HospitalComment on above:Performed By: #### ERUR, DRUGRPD ####[facility] Ssqvetajjo0849[address] [place], [place] [address]Dr. Abhinav LagunaMTD NegativeNormalNEGATIVEMansfield HospitalComment on above:Performed By: #### ERUR, DRUGRPD ####[facility] Amspqcgwlx5705[address] [place], [place] [address]Dr. Abhinav LagunaOPINegativeNormalNEGATIVEMansfield HospitalComment on above:Performed By: #### ERUR, DRUGRPD ####[facility] Lltcuvrwsy123[address] [place], [place] [address]Dr. Abhinav LagunaOXYNegativeNormalNEGATIVEMansfield HospitalComment on above:Performed By: #### ERUR, DRUGRPD ####[facility] Eeycipdtwm[address] [place] [address]Dr. Yilan ChangPCP NegativeNormalNEGATIVETrihealth Mccullough-Hyde Memorial Hospital HospitalComment on above:Performed By: #### CATALINAR, DRUGRPD ####[facility] Wgswdjafin5484[address] [place], [place] [address]Dr. Yilan ChangPPXNegativeNormalNEGATIVETrihealth Mccullough-Hyde Memorial Hospital HospitalComment on above:Performed By: #### CATALINAR DRUGRPD ####[facility] Lwuwxybfne6711[address] [place], [place] [address]Dr. Yilan ChangTCANegativeNormalNEGATIVETrihealth Mccullough-[facility] Hospital HospitalComment on above:Performed By: #### YASMINE DRUGRPD ####[facility] Nwrfxqdaxn576[address] [place], [place] [address]Dr. Yilan ChangTHC PositiveAbnormalNEGATIVEMansfield HospitalComment on above:Performed By: #### YASMINE DRUGRPD ####[facility] Pswrwsxdor418[address] [place], [place] [address]Dr. Yilan ChangER URINE PROFILEon 26-82-2670Yyxsiwovf Ql (U)Negative NormalNEGATIVEMansfield HospitalComment on above:Performed By: #### YASMINE DRUGRPD ####[facility] Jfreqhnrqh4294[address] [place], [place] [address]Dr. Yilan ChangClarity (U)CLEARNormalCLEARTrihealth Mccullough-Hyde Memorial Hospital HospitalComment on above:Performed By: #### YASMINE DRUGRPD ####[facility] Snyoxglhbp2976[address] [place], [place] [address]Dr. Yilan ChangColor (U)LT. YELLOWNormalYELLOWMansfield HospitalComment on above:Performed By: #### YASMINE DRUGRPD ####[facility] Mizldrmqzu8860[address] [place], [place] [address]Dr. Mirandalan Laguna ERUAHDA micrscopic examination will be performed if indicated.NormalTrihealth Mccullough-Hyde Memorial Hospital HospitalComment on above:Performed By: #### CATALINAR, DRUGRPD ####[facility] Uboiptqbze5467[address] [place], [place] [address]Dr. Yilan ChangGlucose Ql (U) 1000 mg/dlAbnormalNEGATIVEThe [facility]eses HospitalComment on above:Performed By: #### YASMINE DRUGRPD ####[facility] [address]feobvz[address] [place], [place] [address]Dr. Yilan ChangHemoglobin Ql (U)NegativeNormalNEGATIVE The Neeses HospitalComment on above:Performed By: #### CATALINAR DRUGRPD ####[facility] Rrchvijwio70[address] [place], [place] [address]Dr. Yilan ChangKetones Ql (U)NegativeNormalNEGATIVETrihealth Mccullough-[facility] Hospital HospitalComment on above:Performed By: #### YASMINE DRUGRPD ####[facility] Vcfwajwasu68[address] [place], [place] [address]Dr. Abhinav LagunaLEUKOCYTESNegativeNormalNEGATIVE The [facility]es HospitalComment on above:Performed By: #### YASMINE DRUGRPD ####[facility] Cnmryiqiia7260[address] [place], [place] [address]Dr. Mirandalan ChangNitrite Ql (U)NegativeNormalNEGATIVETrihealth Mccull[facility] HospitalComment on above:Performed By: #### YASMINE DRUGRPD ####[facility] Tmksignjca2169[address] [place], [place] [address]Dr. Yigallo ChangpH (U)5.5 [pH]Normal5-9The Neeses HospitalComment on above:Performed By: #### YASMINE DRUGRPD ####[facility] Bimmfwyyqd209[address] [place], [place] [address]Dr. Mirandagallo ChangSPEC GRAVITY1.718Pvleex8.005-<=1.025The Neeses HospitalComment on above:Performed By: #### YASMINE DRUGRPD ####[facility] Sogtyrryvy2554[address] [place], [place] [address]Dr. Abhinav LagunaUA PROTEINNegativeNormalNEGATIVE/ TRACE The Neeses HospitalComment on above:Performed By: #### CATALINAR DRUGRPD ####[facility] Ndqxxtxvxm4137[address] [place], [place] [address]Dr. Mirandalan JaseUR MICRO INDNOT INDICATEDNormalThe Neeses HospitalComment on above: Performed By: #### ERUR, DRUGRPD ####[facility] Ubtjehvtsn[address] [place] [address]Dr. Yilan ChangUrobilinogen Qn (U)0.2 {Marshall'U}/dL Normal0.2 - 1.0The [facility] - DublinComment on above:Performed By: #### ERUR DRUGRPD ####[facility] Rcidokghes543[address] [place], [place] [address]Dr. Yilan ChangETHANOL (BLD ALC)on [phone] NOTENOTE: 80 mg/dl is the legal limit for a blood alcohol levelHolmes County Joel Pomerene Memorial HospitalComment on above:Performed By: #### ETH ####[facility] Qiwbuhyjay1555[address] [place], [place] [address]Dr.Yilan ChangEthanol [Mass/Vol]mg/dLHolmes County Joel Pomerene Memorial HospitalComment on above:Performed By: #### ETH ####[facility] Wliydmfafa[address] [place], [place] [address]Dr.Yilan ChangLACTATE/LACTIC ACIDon [phone] [Moles/Vol]1.4 mmol/LNormal0.4-1.9The [facility] Comment on above:Performed By: #### LACT ####[facility] Niecsokzur6115[address] [place], [place] [address]Dr. Yilan ChangLactate [Moles/Vol]3.5 mmol/L Critically high0.4-1.9The [facility] DublinComment on above:Performed By: #### LACT ####[facility] Vozhowjesw9839[address] [place], [place] [address]Dr. Yilan [facility] Memorial HospitalPOINT OF CARE GLUCOSEon [phone] [Mass/Vol]202 mg/dLCritically gdsn44-920Zqc [facility] DublinComment on above:Performed By: #### POCGLUC ####[facility] Mnmqoavmzq3796[address] [place], [place] [address]Dr. Yilan ChangGlucose [Mass/Vol]303 mg/dLCritically gaws10-875Rrv [facility] - DublinComment on above:Performed By: #### POCGLUC ####[facility] Rupyzhgyeh[address] [place] [address]Dr. Yilan Laguna Glucose [Mass/Vol]388 mg/dLCritically xzto99-928Uld [facility] DublinComment on above:Performed By: #### POCGLUC ####[facility] Aekqxwxkli[address] [place] [address]Dr. Yilan ChangGlucose [Mass/Vol]491 mg/dLCritically rste36-137Yok [facility] DublinComment on above:Performed By: #### POCGLUC ####[facility] Xutgwjqagv436[address] [place], [place] [address]Dr. Yilan ChangPOCGLUC>600Critically otei37-420Fnt [facility] DublinCombaraga county memorial hospital on above:Result Comment: Previously ConfirmedPerformed By: #### POCGLUC ####[facility] Gbqwbjzwiz7305[address] [place], [place] [address]Dr. Yilan ChangPOCGLUC>600Critically zlma60-672Skd [facility] DublinCombaraga county memorial hospital on above:Result Comment: Previously ConfirmedPerformed By: #### POCGLUC ####[facility] Wwssghyzwt5912[address] [place], [place] [address]Dr. Yilan ChangPROF 14(COMP METB)on [phone] [Mass/Vol]3.0 g/dLCritically low3.4-5.0[facility] on above:Performed By: #### BNP, CMP, TSH, CMADM ####[facility] Hazsdadonv[address] [place] [address]Dr. Yilan ChangAlbumin/Globulin [Mass ratio]0.9 {ratio}NormalThe [facility] on above:Performed By: #### BNP, CMP, TSH, CMADM ####[facility] Cgntndpwbj[address] [place] [address]Dr. Yilan ChangALP [Catalytic activity/Vol]219 U/LCritically xzsq37-294GkhSalem City Hospital on above:Performed By: #### BNP, CMP, TSH, CMADM ####[facility] Xphchwubjb[address] [place] [address]Dr. Yilan ChangALT [Catalytic activity/Vol]43 U/MGotidm04-51Xdj [facility] DublinComment on above:Performed By: #### BNP, CMP, TSH, CMADM ####[facility] Ityorixoea[address] [place] [address]Dr. Yilan ChangAnion gap [Moles/Vol]14.4 mmol/LNormal The [facility] - DublinComment on above:Performed By: #### BNP, CMP, TSH, CMADM ####[facility] Jwfvhfetxw[address] [place] [address]Dr. Yilan ChangAST [Catalytic activity/Vol]24 U/FBypvwz89-19Jun [facility] Comment on above:Performed By: #### BNP, CMP, TSH, CMADM ####[facility] Ueligekrvn[address] [place] [address]Dr. Yilan ChangBilirubin [Mass/Vol]0.7 mg/dLNormal0.2-1.0The [facility] DublinComment on above:Performed By: #### BNP, CMP, TSH, CMADM ####[facility] Pfsoeaqqdz6244[address] [place], [place] [address]Dr. Yilan ChangCalcium [Mass/Vol]9.8 mg/dLNormal 8.5-10.1The [facility] DublinComment on above:Performed By: #### BNP, CMP, TSH, CMADM ####[facility] Dawtrvkdbc462868 [address] [place], [place] [address]Dr. Yilan ChangChloride [Moles/Vol]88 mmol/LCritically agv08-049Alt [facility] DublinComment on above:Performed By: #### BNP, CMP, TSH, CMADM ####[facility] Wcjvspanbf2788[address] [place], [place] [address]Dr. Yilan ChangCO2 [Moles/Vol]23.3 mmol/BLygcph20.0-32.0The [facility] DublinComment on above:Performed By: #### BNP, CMP, TSH, CMADM ####[facility] Zmartthzcq701[address] [place], [place] [address]Dr. Yilan ChangCreatinine [Mass/Vol]1.44 mg/dLCritically high0.70-1.30The [facility] DublinComment on above:Performed By: #### BNP, CMP, TSH, CMADM ####[facility] Lcttthwejk[address] [place] [address]Dr. Yilan ChangEGFR-AF APTXLMBL86 mL/min/1.56a7Mklfgp>=60The [facility] - DublinComment on above: Performed By: #### BNP, CMP, TSH, CMADM ####[facility] Vqlkanmdpl[address] [place] [address]Dr. Yilan ChangEGFR-NON AF XTNRRJTN24 mL/min/1.00q4Zqfsuvjkhy low>=60The [facility] on above:Performed By: #### BNP, CMP, TSH, CMADM ####[facility] Tjmeywiiqi5249[address] [place], [place] [address]Dr. Yilan ChangGlobulin (S) [Mass/Vol]3.4 g/dLNormal The [facility] DublinComment on above:Performed By: #### BNP, CMP, TSH, CMADM ####[facility] Pvxxvlparl2737[address] [place], [place] [address]Dr. Yilan ChangGlucose [Mass/Vol]782 mg/dLCritically uetu27-445Hhf [facility] Comment on above:Performed By: #### BNP, CMP, TSH, CMADM ####[facility] Zlehqyqjqx6717[address] [place], [place] [address]Dr. Yilan ChangPotassium [Moles/Vol]3.7 mmol/LNormal3.5-5.1The [facility] Healthment on above: Performed By: #### BNP, CMP, TSH, CMADM ####[facility] Zkpfsojbtg5532[address] [place], [place] [address]Dr. Yilan ChangProtein [Mass/Vol]6.4 g/dL Normal6.4-8.2The [facility] DublinComment on above:Performed By: #### BNP, CMP, TSH, CMADM ####[facility] Qjdmogyzee8834[address] [place], [place] [address]Dr. Yilan ChangSodium [Moles/Vol]122 mmol/LCritically gvz816-004Bnq [facility] DublinComment on above:Performed By: #### BNP, CMP, TSH, CMADM ####[facility] Ytffyfvykm[address] [place] [address]Dr. Yilan ChangUrea nitrogen [Mass/Vol]32.0 mg/dLCritically high7.0-18.0The [facility] DublinComment on above:Performed By: #### BNP, CMP, TSH, CMADM ####[facility] Vuynmbreod926[address] [place], [place] [address]Dr. Yilan ChangUrea nitrogen/Creatinine [Mass ratio]22.2 mg/mgNormalThe [facility] - DublinComment on above:Performed By: #### BNP, CMP, TSH, CMADM ####[facility] Lggxvxzvyx[address] [place] [address]Dr. Abhinav ChangPROF CHEM 8 (BAS METB)on [id number] gap [Moles/Vol]10.3 mmol/LNormalThe [facility] DublinComment on above:Performed By: #### BMP ####[facility] Mtxqyrtnyw[address] [place], [place] [address]Dr.Yilan ChangCalcium [Mass/Vol]8.8 mg/dLNormal8.5-10.1The [facility] DublinComment on above:Performed By: #### BMP ####[facility] Ngavxvqlqd167[address] [place], [place] [address]Dr.Yilan ChangChloride [Moles/Vol]106 mmol/XQhtbco64-410Spm [facility] - DublinComment on above:Performed By: #### BMP ####[facility] Zlibxipawo8556[address] [place], [place] [address]Dr.Yilan ChangCO2 [Moles/Vol] 22.2 mmol/KAktbdw43.0-32.0The [facility] - DublinComment on above:Performed By: #### BMP ####[facility] Cgydxtzdsi6605[address] [place], [place] [address]Dr.Yilan ChangCreatinine [Mass/Vol]1.01 mg/dLNormal0.70-1.30The [facility] DublinComment on above:Performed By: #### BMP ####[facility] Ifguqvaajz[address] [place] [address]Dr.Yilan ChangEGFR-AF NEPALESE>60Normal>=60The [facility] DublinComment on above:Performed By: #### BMP ####[facility] Lcbqvibnoa[address] [place] [address]Dr. Yilan ChangEGFR-NON AF NEPALESE>60Normal>=60The Neeses HospitalComment on above:Performed By: #### BMP ####[facility] Wuvahpmjbn5922[address] [place], [place] [address]Dr.Yilan ChangGlucose [Mass/Vol]159 mg/dLCritically txan03-034Wcs [facility] DublinComment on above:Performed By: #### BMP ####[facility] Syrypsyqes3101[address] [place], [place] [address]Dr. Yilan ChangPotassium [Moles/Vol]3.5 mmol/LNormal3.5-5.1The [facility] Comment on above:Performed By: #### BMP ####[facility] Bmnpiuimdw972168 [address] [place], [place] [address]Dr.Yilan ChangSodium [Moles/Vol]135 mmol/L Critically yzc283-915Blp [facility] Healthment on above:Performed By: #### BMP ####[facility] Efucbbwzqc0810[address] [place], [place] [address]Dr. Yilan ChangUrea nitrogen [Mass/Vol]32.0 mg/dLCritically high7.0-18.0The [facility] Healthment on above:Performed By: #### BMP ####[facility] Bswsvradlv025[address] [place], [place] [address]Dr.Yilan ChangUrea nitrogen/Creatinine [Mass ratio]31.7 mg/mgNormalThe [facility] DublinComment on above:Performed By: #### BMP ####[facility] Xiwwxztlsr7270[address] [place], [place] [address]Dr.Yilan ChangPROTIMEon [phone] Coag (PPP) [Relative time]0.99 {INR}NormalMansfield HospitalComment on above:Performed By: #### PTT, PT ####[facility] Liofvntdhx6890[address] [place], [place] [address]Dr. Mirandagallo LagunaINR GUIDELINESSEE [facility] Comment on above:Result Comment: DESIRED INR: 2.0 - 3.0 CONDITIONS NOT LISTED BELOW 2.5 - 3.5 FOR PROSTHETIC HEART VALVE REPLACEMENT 2.5 - 3.5 RECURRENT THROMBOSISPerformed By: #### PTT, PT ####[facility] Atkorbaiup2070[address] [place], [place] [address]Dr. Mirandagallo LagunaPT Coag (PPP) [Time]10.7 sNormal 9.0-11.6The [facility] - DublinComment on above:Performed By: #### PTT, PT ####[facility] Kwenzkqkde6167[address] [place], [place] [address]Dr. Abhinav LagunaPTTon 63-24-0613jLSA Coag (Bld) [Time]25.4 eJflhae07.3-36.2The [facility] - DublinComment on above:Performed By: #### PTT, PT ####[facility] Eidjsprcog9212[address] [place], [place] [address]Dr. Mirandagallo LagunaTSHon 49-54-2984XIT0.175 uIU/mLNormal0.358-3.740Mansfield HospitalComment on above:Performed By: #### BNP, CMP, TSH, CMADM ####[facility] Hogyjiboac[address] [place], [place] [address]Dr. Abhinav LagunaXR CHEST 1 Von 31-13-7537CY CHEST 1 VNormalProMedica Memorial Hospital AUTO DIFFon 93-42-4213HBTD #0.0 103/ulNormal0.0-0.1The [facility] - DublinComment on above:Performed By: #### CBC ####[facility] Sbcrtrjdfv7160[address] [place], [place] [address]Dr.Mirandagallo LagunaBasophils/100 WBC (Bld)0.5 %Normal0.2-2.0The [facility] - DublinComment on above:Performed By: #### CBC ####[facility] Dlnwtaieal[address] [place] [address]Dr.Yilan ChangEO #0.1 103/ul Normal0.0-0.7The [facility] - DublinComment on above:Performed By: #### CBC ####[facility] Vjktgnrdgv969[address] [place], [place] [address]Dr. Yilan ChangEosinophils/100 WBC (Bld)1.5 %Normal0.9-7.0The [facility] Comment on above:Performed By: #### CBC ####[facility] Euuvmmdjta916[address] [place], [place] [address]Dr.Yilan ChangErythrocyte distribution width (RBC) [Ratio]11.9 %Elumyb53.0-15.0The [facility] - DublinComment on above: Performed By: #### CBC ####[facility] Bwuodhtkhq5230[address] [place], [place] [address]Dr.Mirandalan ChangHematocrit (Bld) [Volume fraction]48.7 % Romkpy12.0-54.0The [facility] - DublinComment on above:Performed By: #### CBC ####[facility] Wmkshqfevw1606[address] [place], [place] [address]Dr. Mirandagallo ChangHemoglobin (Bld) [Mass/Vol]17.3 g/rTCzzjmt74.0-18.0The [facility] - DublinComment on above:Performed By: #### CBC ####[facility] Cwaoaednao5448[address] [place], [place] [address]Dr.Yilan ChangIG #0.02 10e3/ulNormal0.00-0.03The [facility] - DublinComment on above:Performed By: #### CBC ####[facility] Mfgfcsogss0184[address] [place], [place] [address]Dr. Yilan ChangIG %0.3 %Normal0.0-0.5The [facility] - DublinComment on above:Performed By: #### CBC ####[facility] Vbosdtdukq1716[address] [place], [place] [address]Dr.Yilan ChangLYMPH #2.9 103/ulNormal1.2-3.8The [facility] Comment on above:Performed By: #### CBC ####[facility] Wszfdwgfcd3126[address] [place], [place] [address]Dr.Abhinav LagunaLymphocytes/100 WBC (Bld)46.3 %Cwkslh92.5-60.0The Neeses HospitalComment on above:Performed By: #### CBC ####[facility] Epkvfwrdbh311[address] [place], [place] [address]Dr. Abhinav LagunaMANUAL DIFF REQNONormalThe Neeses HospitalComment on above: Performed By: #### CBC ####[facility] Klqezrldlz3836[address] [place], [place] [address]Dr.Mirandagallo JaseH (RBC) [Entitic mass]30.3 pgNormal 25.9-34.0The Neeses HospitalComment on above:Performed By: #### CBC ####[facility] Rgvsolnpra4184[address] [place], [place] [address]Dr. Mirandagallo JaseHC (RBC) [Mass/Vol]35.5 g/dLCritically high29.9-35.2The Neeses HospitalComment on above:Performed By: #### CBC ####[facility] Caeirtkcdw1288[address] [place], [place] [address]Dr.Mirandagallo JaseV (RBC) [Entitic vol]85.3 uILshybz58.0-94.0The Neeses HospitalComment on above: Performed By: #### CBC ####[facility] Idlofuxqbc1500[address] [place], [place] [address]Dr.Mirandagallo JaseFADYO #0.5 103/ulNormal0.3-0.8The Neeses HospitalComment on above:Performed By: #### CBC ####[facility] Ydggfhufgl5966[address] [place], [place] [address]Dr.Abhinav LagunaMonocytes/100 WBC (Bld)7.9 %Normal1.7-12.0The Neeses HospitalComment on above:Performed By: #### CBC ####[facility] Atmkvbyxck1350[address] [place], [place] [address]Dr.Abhinav LagunaNEUT #2.7 103/ulNormal1.4-6.5The [facility] - DublinComment on above:Performed By: #### CBC ####[facility] Ozwpzwpogw0612[address] [place], [place] [address]Dr.Abhinav LagunaNeutrophils/100 WBC (Bld)43.5 %Normal 43.0-75.0The [facility] - DublinComment on above:Performed By: #### CBC ####[facility] Ikozoessmf6704[address] [place], [place] [address]Dr. Abhinav LagunaPlatelet mean volume (Bld) [Entitic vol]10.7 fLNormal9.5-13.5The [facility] DublinComment on above:Performed By: #### CBC ####[facility] Newnqdqvsh945[address] [place], [place] [address]Dr.Abhinav LagunaPLT202 103/ul Yvwuda434-298Akt [facility] - DublinComment on above:Performed By: #### CBC ####[facility] Nwkoqeecyo1725[address] [place], [place] [address]Dr. Abhinav ChangRBC5.71 106/ulNormal4.70-6.10The [facility] DublinComment on above: Performed By: #### CBC ####[facility] Acrdxxdmyn033[address] [place], [place] [address]Dr.Abhinav LagunaWBC6.2 103/ulNormal4.0-11.0The [facility] - DublinComment on above:Performed By: #### CBC ####[facility] Ntiuqzliip1140[address] [place], [place] [address]Dr.Abhinav LagunaGLYCOHEMOGLOBIN A1Con [id number] RECOMMENDATIONSEE BELOWHolmes County Joel Pomerene Memorial HospitalComment on above:Result Comment: ADA RECOMMENDED LIMIT 4.0 - 6.0 ADA THERAPEUTIC TARGET < 7.0 ACTION SUGGESTED > 7.0Performed By: #### A1C ####[facility] Ofytsbgljz9617[address] [place], [place] [address]Dr.Abhinav LagunaGlucose [Mass/Vol]272 mg/dLNoCleveland Clinic South Pointe HospitalComment on above:Performed By: #### A1C ####[facility] Pesbtlxyfv[address] [place] [address]Dr.Abhinav LagunaHbA1c (Bld) [Mass fraction]11.1 %Critically high4.5-6.2The [facility] DublinComment on above:Performed By: #### A1C ####[facility] Roglsnhyzy[address] [place] [address]Dr.Abhinav LagunaLIPID PROFILEon [id number]-HDL RATIO NORMSEE BELOWHolmes County Joel Pomerene Memorial HospitalComment on above:Result Comment: 3.3 - 4.4 LOW RISK 4.4 - 7.1 AVERAGE RISK 7.1 - 11.0 MODERATE RISK >11.0 HIGH RISKPerformed By: #### LIPID, CMP ####[facility] Mvrggkibox799[address] [place], [place] [address]Dr. Abhinav ChangCholesterol [Mass/Vol]200 mg/dLNormal<=200The [facility] on above:Performed By: #### LIPID, CMP ####[facility] Uosuyjjhjh2839[address] [place], [place] [address]Dr. Mirandalan ChangCholesterol in HDL [Mass/Vol]50 mg/dL Hbzmcn35-44SrcMansfield HospitalCombaraga county memorial hospital on above:Performed By: #### LIPID, CMP ####[facility] Pvxlewbgtn9378[address] [place], [place] [address]Dr. Abhinav ChangCholesterol in LDL [Mass/Vol]125.6 mg/dLHolmes County Joel Pomerene Memorial Hospital Comment on above:Performed By: #### LIPID, CMP ####[facility] Lfxdebuvdk7088[address] [place], [place] [address]Dr. Mirandagallo Laguna Cholesterol.total/Cholesterol in HDL [Mass ratio]4.0 {ratio}NormalSalem City Hospital on above:Performed By: #### LIPID, CMP ####[facility] Bnsggrnrgu5674[address] [place], [place] [address]Dr. Yilan ChangHDL NORMAL> or = 60 mg/dl - LOW CARDIOVASCULAR RISK <40 mg/dl - HIGH CARDIOVASCULAR RISKNormal The [facility] DublinCombaraga [facility] memorial hospital on above:Performed By: #### LIPID, CMP ####[facility] [address]db[address] [place] [address]Dr. Yilan ChangLDL CALC NORMALSEE BELOWNoCleveland Clinic South Pointe HospitalComment on above:Result Comment: <100 mg/dl OPTIMAL 100 - 129 mg/dl NEAR OR ABOVE OPTIMAL 130 - 159 mg/dl BORDERLINE HIGH 160 - 189 mg/dl HIGH >190 mg/dl VERY HIGHPerformed By: #### LIPID, CMP ####[facility] Ppegtekefr9[address] [place], [place] [address]Dr. Yilan ChangTriglyceride [Mass/Vol]122 mg/dLNormal<=150The [facility] - DublinComment on above:Performed By: #### LIPID, CMP ####[facility] Caegahlule9[address] [place], [place] [address]Dr. Yilan ChangVLDL CALC24.4 mg/dLNoCleveland Clinic South Pointe HospitalComment on above:Performed By: #### LIPID, CMP ####[facility] Oipaeesjzn133[address] [place], [place] [address]Dr. Yilan ChangPROF 14(COMP METB)on [id number] [Mass/Vol]2.6 g/dLCritically low3.4-5.0The [facility] - DublinComment on above:Performed By: #### LIPID, CMP ####[facility] Lnnyzcbexu60[address] [place], [place] [address]Dr. Yilan ChangAlbumin/Globulin [Mass ratio]0.6 {ratio}NormalMansfield Hospital Comment on above:Performed By: #### LIPID, CMP ####[facility] Biomdkhhsm3497[address] [place], [place] [address]Dr. Yilan ChangALP [Catalytic activity/Vol]247 U/LCritically gomv82-993Guk [facility] - DublinComment on above: Performed By: #### LIPID, CMP ####[facility] Bjoqdlrhhp1586[address] [place], [place] [address]Dr. Yilan ChangALT [Catalytic activity/Vol]33 U/L Ljfgno91-60Url [facility] DublinComment on above:Performed By: #### LIPID, CMP ####[facility] Hghgdxqjoy4216[address] [place], [place] [address]Dr. Yilan ChangAnion gap [Moles/Vol]7.7 mmol/LNormalThe [facility] - DublinComment on above:Performed By: #### LIPID, CMP ####[facility] Lwwwmktzqq[address] [place] [address]Dr. Yilan ChangAST [Catalytic activity/Vol]19 U/L Xrsmar19-33Zio [facility] - DublinComment on above:Performed By: #### LIPID, CMP ####[facility] Rbgohmaqkk[address] [place] [address]Dr. Yilan ChangBilirubin [Mass/Vol]0.2 mg/dLNormal0.2-1.0The [facility] Comment on above:Performed By: #### LIPID, CMP ####[facility] Uxpsgdcxly8928[address] [place], [place] [address]Dr. Yilan ChangCalcium [Mass/Vol]9.7 mg/dLNormal8.5-10.1The [facility] - DublinComment on above:Performed By: #### LIPID, CMP ####[facility] Hfknvvkbon469[address] [place], [place] [address]Dr. Yilan ChangChloride [Moles/Vol]101 mmol/LNormal 98-107The [facility] - DublinComment on above:Performed By: #### LIPID, CMP ####[facility] Usvamgqxce617[address] [place], [place] [address]Dr. Yilan ChangCO2 [Moles/Vol]30.8 mmol/FOktkmq46.0-32.0The [facility] - DublinComment on above:Performed By: #### LIPID, CMP ####[facility] Xtpyobsgqf4765[address] [place], [place] [address]Dr. Yilan ChangCreatinine [Mass/Vol]0.84 mg/dLNormal0.70-1.30The [facility] - DublinComment on above:Performed By: #### LIPID, CMP ####[facility] Xxbqwcjcwu9297[address] [place], [place] [address]Dr. Yilan ChangEGFR-AF NEPALESE>60Normal>=60The [facility] - DublinComment on above:Performed By: #### LIPID, CMP ####[facility] Lmuqozynrx[address] [place] [address]Dr. Yilan ChangEGFR-NON AF NEPALESE>60Normal>=60 The [facility] - DublinComment on above:Performed By: #### LIPID, CMP ####[facility] Rdlqyqxbdg8[address] [place] [address]Dr. Yilan Laguna Globulin (S) [Mass/Vol]4.1 g/dLNormSelect Medical Specialty Hospital - Southeast OhioComment on above: Performed By: #### LIPID, CMP ####[facility] Reepcscdry923968 [address] [place], [place] [address]Dr. Yilan ChangGlucose [Mass/Vol]265 mg/dLCritically uhoc11-957Dmi [facility] DublinComment on above:Performed By: #### LIPID, CMP ####[facility] Omwphikcux8365[address] [place], [place] [address]Dr. Yilan ChangPotassium [Moles/Vol]4.5 mmol/LNormal3.5-5.1The [facility] Comment on above:Performed By: #### LIPID, CMP ####[facility] Mjjvfswutb5708[address] [place], [place] [address]Dr. Yilan ChangProtein [Mass/Vol]6.7 g/dLNormal6.4-8.2The [facility] - DublinComment on above:Performed By: #### LIPID, CMP ####[facility] Bnpjgmfxxj784168 [address] [place], [place] [address]Dr. Yilan ChangSodium [Moles/Vol]135 mmol/LCritically tqc326-768Hdi [facility] DublinComment on above:Performed By: #### LIPID, CMP ####[facility] Ksggzyhxtb5634[address] [place], [place] [address]Dr. Yilan ChangUrea nitrogen [Mass/Vol]18.0 mg/dLNormal7.0-18.0The [facility] Comment on above:Performed By: #### LIPID, CMP ####[facility] Fxcaxfpzps4967[address] [place], [place] [address]Dr. Yilan ChangUrea nitrogen/Creatinine [Mass ratio]21.4 mg/mgNormSelect Medical Specialty Hospital - Southeast OhioComment on above:Performed By: #### LIPID, CMP ####[facility] Xdbehtyneu6817[address] [place], [place] [address]Dr. Yilan ChangSED RATE WESTERGRENon 07-28-2022 SED RATE28 mm/hrCritically high<=20The [facility] DublinCombaraga county memorial hospital on above: Performed By: #### SEDR ####[facility] Iebcaxzvfk5747[address] [place], [place] [address]Dr. Yilan ChangXR FOOT RT MIN 3 VIEWSon 02-42-1288ZX FOOT RT MIN 3 VIEWSNormSelect Medical Specialty Hospital - Southeast OhioCBC AUTO DIFFon [id number] # 0.0 103/ulNormal0.0-0.1The [facility] on above:Performed By: #### CBC ####[facility] Bywbqxzszi7801[address] [place], [place] [address]Dr. Yilan ChangBasophils/100 WBC (Bld)0.4 %Normal0.2-2.0The [facility] on above:Performed By: #### CBC ####[facility] Wdqiiwynea759[address] [place], [place] [address]Dr.Yilan ChangEO #0.1 103/ulNormal0.0-0.7The [facility] on above:Performed By: #### CBC ####[facility] Oyogestsmr1333[address] [place], [place] [address]Dr.Yilan ChangEosinophils/100 WBC (Bld)1.5 %Normal0.9-7.0The [facility] DublinCombaraga county memorial hospital on above:Performed By: #### CBC ####[facility] Vjeytyormz1879[address] [place], [place] [address]Dr.Yilan ChangErythrocyte distribution width (RBC) [Ratio]12.4 %Normal 11.0-15.0The [facility] on above:Performed By: #### CBC ####[facility] Fhkmlcmosi096[address] [place], [place] [address]Dr. Yilan ChangHematocrit (Bld) [Volume fraction]38.2 %Critically low42.0-54.0The [facility] - DublinComment on above:Performed By: #### CBC ####[facility] Wdezkykdvu2134[address] [place], [place] [address]Dr.Abhinav LagunaHemoglobin (Bld) [Mass/Vol]13.9 g/dLCritically low14.0-18.0The [facility]eses HospitalComment on above:Performed By: #### CBC ####[facility] Mcwsrmbhxu789[address] [place], [place] [address]Dr.Abhinav JaseIG #0.05 10e3/ulCritically high0.00-0.03 The [facility] HospitalComment on above:Performed By: #### CBC ####[facility] Uwcftkakcl5866[address] [place], [place] [address]Dr.Mirandagallo LagunaIG % 0.6 %Critically high0.0-0.5The [facility] HospitalComment on above:Performed By: #### CBC ####[facility] Ahqxqhdlbm5970[address] [place], [place] [address]Dr.Abhinav JaseLYMPH #2.2 103/ulNormal1.2-3.8The [facility] HospitalComment on above:Performed By: #### CBC ####[facility] Dbqqrzepta2196[address] [place], [place] [address]Dr.Mirandagallo JaseLymphocytes/100 WBC (Bld)26.9 %Normal 20.5-60.0The [facility] HospitalComment on above:Performed By: #### CBC ####[facility] Ogbksqcjrs487[address] [place], [place] [address]Dr. Abhinav JaseMANUAL DIFF REQNONormalThe [facility]es HospitalComment on above: Performed By: #### CBC ####[facility] Oawdsmeapn8589[address] [place], [place] [address]Dr.Abhinav LagunaH (RBC) [Entitic mass]31.6 pgNormal 25.9-34.0The [facility]es HospitalComment on above:Performed By: #### CBC ####[facility] Vqvqlvelvs849[address] [place], [place] [address]Dr. Abhinav LagunaMANHATTAN PSYCH[facility]ATR[facility] (RBC) [Mass/Vol]36.4 g/dLCritically high29.9-35.2The [facility] DublinComment on above:Performed By: #### CBC ####[facility] Ebltzwwial5116[address] [place], [place] [address]Dr.Abhinav LagunaMCV (RBC) [Entitic vol]86.8 mWEzipzv17.0-94.0The [facility] HospitalComment on above: Performed By: #### CBC ####[facility] Lkflhieohs938[address] [place], [place] [address]Dr.Abhinav LagunaMONO #0.5 103/ulNormal0.3-0.8The [facility] HospitalComment on above:Performed By: #### CBC ####[facility] Npgyaetfkt1066[address] [place], [place] [address]Dr.Abhinav LagunaMonocytes/100 WBC (Bld)6.2 %Normal1.7-12.0The [facility] DublinComment on above:Performed By: #### CBC ####[facility] Tzpqiqbthe1368[address] [place], [place] [address]Dr.Abhinav LagunaNEUT #5.2 103/ulNormal1.4-6.5The [facility] DublinComment on above:Performed By: #### CBC ####[facility] Maheufcyqm0509[address] [place], [place] [address]Dr.Abhinav LagunaNeutrophils/100 WBC (Bld)64.4 %Normal 43.0-75.0The [facility] DublinComment on above:Performed By: #### CBC ####[facility] Paijnfolon8484[address] [place], [place] [address]Dr. Abhinav LagunaPlatelet mean volume (Bld) [Entitic vol]10.8 fLNormal9.5-13.5The [facility] HospitalComment on above:Performed By: #### CBC ####[facility] Rbejdeezaf832[address] [place], [place] [address]Dr.Abhinav FqywlEMF954 103/ul Vripoi298-097Ruw [facility] DublinComment on above:Performed By: #### CBC ####[facility] Kchdwqqajf37[address] [place], [place] [address]Dr. Abhinav ChangRBC4.40 106/ulCritically low4.70-6.10The [facility] DublinComment on above:Performed By: #### CBC ####[facility] Bhkbwymarc[address] [place] [address]Dr.Abhinav ChangWBC8.0 103/ulNormal4.0-11.0The [facility] DublinComment on above:Performed By: #### CBC ####[facility] Ywayjafiuj4[address] [place] [address]Dr.Abhinav ChangPOINT OF CARE GLUCOSEon 66-21-0567Ovdnenf [Mass/Vol]360 mg/dLCritically ofbl83-775Wtd [facility] DublinComment on above:Performed By: #### POCGLUC ####[facility] Llafnkwyyj9711[address] [place], [place] [address]Dr. Abhinav ChangPROF CHEM 8 (BAS METB)on 13-46-8636Aanmt gap [Moles/Vol]13.6 mmol/LNormalThe [facility] DublinComment on above:Performed By: #### BMP ####[facility] Sqwuztjvwa1256[address] [place], [place] [address]Dr.Abhinav ChangCalcium [Mass/Vol]9.1 mg/dLNormal8.5-10.1The [facility] DublinComment on above:Performed By: #### BMP ####[facility] Juikgfizuk544[address] [place], [place] [address]Dr.Abhinav ChangChloride [Moles/Vol]102 mmol/LQpayca02-854Rro [facility] DublinComment on above:Performed By: #### BMP ####[facility] Zswsgeycxg232[address] [place] [address]Dr.Abhinav ChangCO2 [Moles/Vol] 21.9 mmol/LPfdvqt38.0-32.0The [facility] DublinComment on above:Performed By: #### BMP ####[facility] Lirszucoro380[address] [place], [place] [address]Dr.Abhinav ChangCreatinine [Mass/Vol]0.89 mg/dLNormal0.70-1.30The [facility] DublinComment on above:Performed By: #### BMP ####[facility] Glcnnltmni4578[address] [place], [place] [address]Dr.Yilan ChangEGFR-AF NEPALESE>60Normal>=60The [facility] DublinComment on above:Performed By: #### BMP ####[facility] Vlqpcspjvb5946[address] [place], [place] [address]Dr. Yilan ChangEGFR-NON AF NEPALESE>60Normal>=60The [facility] DublinComment on above:Performed By: #### BMP ####[facility] Ponpyxafqv8159[address] [place], [place] [address]Dr.Yilan ChangGlucose [Mass/Vol]394 mg/dLCritically ihif45-049Peg Kettering Healthment on above:Performed By: #### BMP ####[facility] Ippfstegqe478968 [address] [place], [place] [address]Dr. Yilan ChangPotassium [Moles/Vol]4.5 mmol/LNormal3.5-5.1The [facility] Comment on above:Performed By: #### BMP ####[facility] Sfpitbqqwm9870[address] [place], [place] [address]Dr.Yilan ChangSodium [Moles/Vol]133 mmol/L Critically mcr612-095Knd Kettering Healthment on above:Performed By: #### BMP ####[facility] Xarhatqpoh96[address] [place], [place] [address]Dr. Yilan ChangUrea nitrogen [Mass/Vol]21.0 mg/dLCritically high7.0-18.0The [facility] DublinComment on above:Performed By: #### BMP ####[facility] Sljnzjxgnx0013[address] [place], [place] [address]Dr.Yilan ChangUrea nitrogen/Creatinine [Mass ratio]23.6 mg/mgNormalThe [facility] DublinComment on above:Performed By: #### BMP ####[facility] Tpbhlwtgdy029[address] [place], [place] [address]Dr.Yilan ChangACETONE SERUMon 19-75-0764FXLMHBE NegativeNormalNEGATIVEThe [facility] DublinComment on above:Performed By: #### ACETON ####[facility] Epdcbbmguu4405[address] [place], [place] [address]Dr. Abhinav LagunaCBC AUTO DIFFon 47-98-6711DMJS #0.1 103/ulNormal0.0-0.1The [facility] DublinComment on above:Performed By: #### CBC ####[facility] Oorlnwqbrz899[address] [place], [place] [address]Dr.Abhinav ChangBasophils/100 WBC (Bld)0.8 %Normal0.2-2.0The [facility] DublinComment on above:Performed By: #### CBC ####[facility] Nuozeaulem278[address] [place], [place] [address]Dr.Abhinav ChangEO #0.2 103/ulNormal0.0-0.7The [facility] DublinComment on above:Performed By: #### CBC ####[facility] Xhtkurelgb574[address] [place], [place] [address]Dr.Abhinav ChangEosinophils/100 WBC (Bld)1.9 %Normal 0.9-7.0The [facility] DublinComment on above:Performed By: #### CBC ####[facility] Oeuemenzih797[address] [place], [place] [address]Dr.Abhinav Laguna Erythrocyte distribution width (RBC) [Ratio]12.3 %Udbxgd37.0-15.0The [facility] DublinComment on above:Performed By: #### CBC ####[facility] Nmvfvimhry7776[address] [place], [place] [address]Dr.Abhinav LagunaHematocrit (Bld) [Volume fraction]46.1 %Zqaixf01.0-54.0The [facility] DublinComment on above:Performed By: #### CBC ####[facility] Rwsafwtilf1344[address] [place], [place] [address]Dr.Abhinav LagunaHemoglobin (Bld) [Mass/Vol]17.0 g/dL Xjcxpm13.0-18.0The [facility] DublinComment on above:Performed By: #### CBC ####[facility] Nankgdfohe18[address] [place], [place] [address]Dr. Abhinav LagunaIG #0.04 10e3/ulCritically high0.00-0.03The [facility] DublinComment on above:Performed By: #### CBC ####[facility] Jjibqcggci[address] [place] [address]Dr.Abhinav LagunaIG %0.4 %Normal0.0-0.5The [facility] DublinComment on above:Performed By: #### CBC ####[facility] Yklexwskgp3128[address] [place], [place] [address]Dr.Abhinav LagunaLYMPH #2.5 103/ulNormal1.2-3.8The [facility] DublinComment on above:Performed By: #### CBC ####[facility] Psbranasnm348[address] [place], [place] [address]Dr. Abhinav Hernandezmphocytes/100 WBC (Bld)27.4 %Cuuldd01.5-60.0[facility] Comment on above:Performed By: #### CBC ####[facility] Hctrxdjbat7585[address] [place], [place] [address]Dr.Abhinav LagunaMANUAL DIFF REQNONormalThe [facility] DublinComment on above:Performed By: #### CBC ####[facility] Hszcyucjeg5668[address] [place], [place] [address]Dr.Abhinav LagunaCALVARY H[facility] (RBC) [Entitic mass]31.7 seBwpiop84.9-34.0The [facility] DublinComment on above: Performed By: #### CBC ####[facility] Rhipbrekhe109[address] [place], [place] [address]Dr.Abhinav LagunaMANHATTAN PSYCHIATRIC [facility] (RBC) [Mass/Vol]36.9 g/dLCritically high29.9-35.2[facility] HospitalComment on above:Performed By: #### CBC ####[facility] Lplojnwqhw987[address] [place], [place] [address]Dr. Abhinav LagunaHOLDENVILLE [facility] [place] (RBC) [Entitic vol]86.0 xWWgkybe08.0-94.0The [facility] Comment on above:Performed By: #### CBC ####[facility] Uggwfwclfh2657[address] [place], [place] [address]Dr.Abhinav LagunaMONO #0.6 103/ulNormal0.3-0.8 The [facility] DublinComment on above:Performed By: #### CBC ####[facility] Clafrnlfrw[address] [place] [address]Dr.Abhinav Laguna Monocytes/100 WBC (Bld)6.4 %Normal1.7-12.0The [facility] DublinComment on above: Performed By: #### CBC ####[facility] Lywxjtgetm[address] [place] [address]Dr.Yigallo ChangNEUT #5.7 103/ulNormal1.4-6.5The [facility] DublinComment on above:Performed By: #### CBC ####[facility] Gquwuqducs[address] [place] [address]Dr.Abhinav LagunaNeutrophils/100 WBC (Bld)63.1 %Cugnzr48.0-75.0The [facility] DublinComment on above:Performed By: #### CBC ####[facility] Chagqirtbl3495[address] [place], [place] [address]Dr.Abhinav LagunaPlatelet mean volume (Bld) [Entitic vol]11.8 fLNormal9.5-13.5 The [facility] DublinCombaraga county memorial hospital on above:Performed By: #### CBC ####[facility] Ufgnlmglej9[address] [place], [place] [address]Dr.Mirandalan JafokNSF137 103/scXktlvv105-310Pzw [facility] DublinComment on above:Performed By: #### CBC ####[facility] Tbpjkhrtoe5605[address] [place], [place] [address]Dr. Yilan ChangRBC5.36 106/ulNormal4.70-6.10The [facility] DublinComment on above: Performed By: #### CBC ####[facility] Jdkcnetdgc2620[address] [place], [place] [address]Dr.Yilan ChangWBC9.0 103/ulNormal4.0-11.0The [facility] DublinComment on above:Performed By: #### CBC ####[facility] Qialbxaldw[address] [place], [place] [address]Dr.Abhinav ChangCULTURE BLOODon 52-97-9214Doahtvwhpmf examination of blood, cultureCulture Observations: NO GROWTH AT 5 DAYS.NormalMansfield HospitalComment on above:Performed By: #### [id number] ####[facility] Fzzdgcznft[address] [place], [place] [address]Dq. Abhinav ChangMicroscopic examination of blood, cultureCulture Observations: NO GROWTH AT 5 DAYS.NormalThe [facility] DublinComment on above:Performed By: #### [id number] ####[facility] Oycxgmrbpt[address] [place], [place] [id number]. Abhinav ChangCovid-19 PCR (CVDTBH)on 25-58-7063JYNC-CoV-2 (COVID-19) RNA EVERT+probe Ql (Unsp spec)Not detectedNormalNOT DETECTEDThe [facility] Comment on above:Result Comment: When diagnostic testing is negative, the possibility of a false negative should be considered inthe context of a patient's recent exposures and the presence of clinical signs and sympt omsconsistent with SARS-CoV-2.This test is not yet approved or cleared by the [place] FDA. When there are no FDA-approved or cleared tests available, and other criteria are met, FDA can make tests available under an emergency access mechanism called an Emergency Use Authorization (EUA). The EUA for this test is supported by the [employer] of Health and Human Service's declaration that circumstances exist to justify the emergency use of in vitro diagnostics for the detection and/or diagnosis of the virus that causes COVID-19. This EUA will remain in effect for the duration of the COVID-19declaration justifying emergency of IVDs, unless it is terminated or revoked by the FDA (after which the test may no longer be used).Performed By: #### CVDTBH ####[facility] Kqzzskjzvu314[address] [place], [place] [address]Dr. Yilan ChangER URINE PROFILEon [id number] Ql (U)NegativeNormalNEGATIVEMansfield Hospital Comment on above:Performed By: #### ERUR ####[facility] Agnsscfqpv3513[address] [place], [place] [address]Dr. Yilan ChangClarity (U)CLEARNormalCLEAR [facility] HospitalComment on above:Performed By: #### ERUR ####[facility] Lqlwndlxak3160[address] [place], [place] [address]Dr. Yilan ChangColor (U)LT. YELLOWNormalYELLOWTrihealth Mccull[facility] Hospital HospitalComment on above:Performed By: #### ERUR ####[facility] Ybxmubfwmg7444[address] [place], [place] [address]Dr. Yilan ChangERUAHDA micrscopic examination will be performed if indicated.NormalThe Neeses HospitalComment on above:Performed By: #### ERUR ####[facility] Xedwybyqfa2296[address] [place], [place] [address]Dr. Yilan ChangGlucose Ql (U)>1000AbnormalNEGATIVETrihealth Mccullough-Hyde Memorial Hospital HospitalComment on above:Performed By: #### ERUR ####[facility] Zzogddmxdv830[address] [place], [place] [address]Dr. Yilan ChangHemoglobin Ql (U)NegativeNormalNEGATIVE [facility] HospitalComment on above:Performed By: #### ERUR ####[facility] Gjzbyowkit8330[address] [place], [place] [address]Dr. Yilan Laguna Ketones Ql (U)NegativeNormalNEGATIVEMansfield HospitalComment on above: Performed By: #### ERUR ####[facility] Rylrgshnyw8006[address] [place], [place] [address]Dr. Yilan ChangLEUKOCYTESNegativeNormalNEGATIVETrihealth Mccull[facility] Hospital HospitalComment on above:Performed By: #### ERUR ####[facility] Fmevfkqwbh3535[address] [place], [place] [address]Dr. Yilan ChangNitrite Ql (U) NegativeNormalNEGATIVEMansfield HospitalComment on above:Performed By: #### ERUR ####[facility] Wzruuqcchj382[address] [place], [place] [address]Dr. Yilan ChangpH (U)6.5 [pH]Normal5-9[facility] HospitalComment on above:Performed By: #### ERUR ####[facility] Emcpkirkjn[address] [place] [address]Dr. Yilan ChangSPEC GRAVITY1.573Lqwsun9.005-<=1.025The [facility] - DublinComment on above:Performed By: #### ERUR ####[facility] Eusjtuoarz[address] [place] [address]Dr. Yilan ChangUA PROTEIN NegativeNormalNEGATIVE/ TRACEThe [facility] DublinComment on above:Performed By: #### ERUR ####[facility] Ixqjgwislk[address] [place] [address]Dr. Yilan ChangUR MICRO INDNOT INDICATEDNormalThe [facility] DublinComment on above:Performed By: #### ERUR ####[facility] Lzgntvhzhp[address] [place] [address]Dr. Yilan ChangUrobilinogen Qn (U)1.0 {Marshall'U}/dL Normal0.2 - 1.0The [facility] DublinComment on above:Performed By: #### ERUR ####[facility] Fgxsnlbhfz085[address] [place], [place] [address]Dr. Yilan ChangLACTATE/LACTIC ACIDon 04-33-1056Agtapjx [Moles/Vol]1.2 mmol/LNormal 0.4-1.9The [facility] - DublinComment on above:Performed By: #### LACT ####[facility] Lmboqiwvmp249[address] [place], [place] [address]Dr. Yilan ChangLactate [Moles/Vol]1.7 mmol/LNormal0.4-1.9The [facility] Comment on above:Performed By: #### LACT ####[facility] Etneoqingb3588[address] [place], [place] [address]Dr. Yilan ChangPH VENOUS BLOODon 02-08-2022 PCO2 UHGOES13.3 esTfLiappr28.0-52.0The [facility] DublinComment on above: Performed By: #### PHVEN ####[facility] Ozeupbigle3[address] [place], [place] [address]Dr. Yilan ChangpH VENOUS7.247Yxrcce3.330-7.430The Neeses HospitalComment on above:Performed By: #### PHVEN ####[facility] Sefyvbhsyf1937[address] [place], [place] [address]Dr. Yilan ChangPOINT OF CARE GLUCOSEon 35-76-7981Ilydbmm [Mass/Vol]198 mg/dLCritically jcvo08-261WjyMansfield HospitalCombaraga county memorial hospital on above:Performed By: #### POCGLUC ####[facility] Krdixccvjh495[address] [place], [place] [address]Dr. Abhinav Laguna Glucose [Mass/Vol]303 mg/dLCritically vcwx18-603WejMansfield HospitalCombaraga county memorial hospital on above:Performed By: #### POCGLUC ####[facility] Sqqypjrbyc1057[address] [place], [place] [address]Dr. Yilan ChangGlucose [Mass/Vol]503 mg/dLCritically qots54-005JsyMansfield HospitalCombaraga county memorial hospital on above:Result Comment: Will Repeat Test Performed By: #### POCGLUC ####[facility] Caagjyxzlv407[address] [place], [place] [address]Dr. Yilan ChangGlucose [Mass/Vol]538 mg/dLCritically vsns07-244FlbSalem City Hospital on above:Result Comment: Previously ConfirmedPerformed By: #### POCGLUC ####[facility] Qbmhiwuals4985[address] [place], [place] [address]Dr. Yilan ChangGlucose [Mass/Vol]594 mg/dL Critically hvex01-065QuiSalem City Hospital on above:Result Comment: Will Repeat TestPerformed By: #### POCGLUC ####[facility] Qiwpqkfdun9498[address] [place], [place] [address]Dr. Yilan ChangPOCGLUC>600Critically cuve53-237 The [facility] DublinCombaraga county memorial hospital on above:Result Comment: Result Not Confirmed Performed By: #### POCGLUC ####[facility] Jiybzhsjmx0360[address] [place], [place] [address]Dr. Yilan ChangPROF 14(COMP METB)on 62-80-1685Baslvee [Mass/Vol]3.5 g/dLNormal3.4-5.0M[facility]field HospitalCombaraga county memorial hospital on above:Performed By: #### CMP ####[facility] Xzylkjmkee[address] [place] [address]Dr.Yilan ChangAlbumin/Globulin [Mass ratio]0.9 {ratio}NormalThe [facility] on above:Performed By: #### CMP ####[facility] Jcsjqsrudp35[address] [place] [address]Dr.Yilan ChangALP [Catalytic activity/Vol]420 U/LCritically pydz49-087Ejy [facility] on above: Performed By: #### CMP ####[facility] Nqxopvmyzj86[address] [place] [address]Dr.Yilan ChangALT [Catalytic activity/Vol]44 U/LNormal 16-63The [facility] DublinCombaraga county memorial hospital on above:Performed By: #### CMP ####[facility] Yvxmvdbhzw4729[address] [place], [place] [address]Dr.Yilan ChangAnion gap [Moles/Vol]13.5 mmol/LNormalThe [facility] DublinCombaraga county memorial hospital on above:Performed By: #### CMP ####[facility] Zkycoogieo6604[address] [place], [place] [address]Dr.Yilan ChangAST [Catalytic activity/Vol]18 U/SWcfojh17-30Ukt [facility] on above:Performed By: #### CMP ####[facility] Nvavuobgez057[address] [place], [place] [address]Dr.Yilan ChangBilirubin [Mass/Vol]0.6 mg/dLNormal0.2-1.0The [facility] on above:Performed By: #### CMP ####[facility] Drnkumhely532068 [address] [place], [place] [address]Dr.Yilan ChangCalcium [Mass/Vol]9.8 mg/dLNormal8.5-10.1The [facility] on above:Performed By: #### CMP ####[facility] Dhxfnvwlmm9637[address] [place], [place] [address]Dr.Yilan ChangChloride [Moles/Vol]90 mmol/LCritically wze99-692Moc [facility] DublinCombaraga county memorial hospital on above: Performed By: #### CMP ####[facility] Xqgldhruad56[address] [place] [address]Dr.Yilan ChangCO2 [Moles/Vol]26.7 mmol/LNormal 21.0-32.0The [facility] DublinComment on above:Performed By: #### CMP ####[facility] Dcdoeadpqf[address] [place] [address]Dr. Yilan ChangCreatinine [Mass/Vol]1.12 mg/dLNormal0.70-1.30[facility] Comment on above:Performed By: #### CMP ####[facility] Ntyzgllwbu2918[address] [place], [place] [address]Dr.Yilan ChangEGFR-AF NEPALESE>60Normal>=60 The [facility] DublinComment on above:Performed By: #### CMP ####[facility] Auelkzzylc1715[address] [place], [place] [address]Dr.Yilan ChangEGFR- NON AF NEPALESE>60Normal>=60The [facility] DublinComment on above:Performed By: #### CMP ####[facility] Sedjtwerjl093868 [address] [place], [place] [address]Dr.Yilan ChangGlobulin (S) [Mass/Vol]3.8 g/dLNormalThSumma Health Comment on above:Performed By: #### CMP ####[facility] Euskmyuzmp8901[address] [place], [place] [address]Dr.Yilan ChangGlucose [Mass/Vol]756 mg/dL Critically rdff98-649Ckl [facility] DublinComment on above:Performed By: #### CMP ####[facility] Tkskwfgqhb5868[address] [place], [place] [address]Dr. Yilan ChangPotassium [Moles/Vol]5.2 mmol/LCritically high3.5-5.1The [facility] DublinComment on above:Performed By: #### CMP ####[facility] Edcitbkics9848[address] [place], [place] [address]Dr.Yilan ChangProtein [Mass/Vol]7.3 g/dLNormal6.4-8.2The [facility] DublinComment on above:Performed By: #### CMP ####[facility] Kenllikpai1024[address] [place], [place] [address]Dr.Abhinav ChangSodium [Moles/Vol]125 mmol/LCritically qye216-650Nvc [facility] DublinComment on above:Performed By: #### CMP ####[facility] Uaiwbxvztv3896[address] [place], [place] [address]Dr.Abhinav ChangUrea nitrogen [Mass/Vol]18.0 mg/dLNormal7.0-18.0The [facility] DublinComment on above: Performed By: #### CMP ####[facility] Nbyevjybnz554[address] [place], [place] [address]Dr.Mirandalan ChangUrea nitrogen/Creatinine [Mass ratio] 16.1 mg/mgNormalThe [facility] DublinComment on above:Performed By: #### CMP ####[facility] Imumoogsby9644[address] [place], [place] [address]Dr. Abhinav ChangCBC AUTO DIFFon 58-12-8075VNPZ #0.1 103/ulNormal0.0-0.1The [facility] DublinComment on above:Performed By: #### CBC ####[facility] Dejnnpsjos1114[address] [place], [place] [address]Dr.Abhinav ChangBasophils/100 WBC (Bld)0.7 %Normal0.2-2.0The [facility] DublinComment on above:Performed By: #### CBC ####[facility] Hxctjcflnq3023[address] [place], [place] [address]Dr.Yilan ChangEO #0.3 103/ulNormal0.0-0.7The [facility] DublinComment on above:Performed By: #### CBC ####[facility] Ogcfffiatx7311[address] [place], [place] [address]Dr.Mirandalan ChangEosinophils/100 WBC (Bld)3.5 %Normal 0.9-7.0The [facility] DublinComment on above:Performed By: #### CBC ####[facility] Gjhvobtjtu3914[address] [place], [place] [address]Dr.Abhinav Laguna Erythrocyte distribution width (RBC) [Ratio]12.2 %Vlgfsd70.0-15.0The [facility] DublinComment on above:Performed By: #### CBC ####[facility] Jiswhcsezi6757[address] [place], [place] [address]Dr.Abhinav LagunaHematocrit (Bld) [Volume fraction]44.0 %Zqdlxc77.0-54.0The [facility] DublinComment on above:Performed By: #### CBC ####[facility] Nprbfneyjg1864[address] [place], [place] [address]Dr.Abhinav LagunaHemoglobin (Bld) [Mass/Vol]15.4 g/dL Ocegei81.0-18.0The [facility] DublinComment on above:Performed By: #### CBC ####[facility] Pxaeuktayc5517[address] [place], [place] [address]Dr. Abhinav ChangIG #0.02 10e3/ulNormal0.00-0.03The [facility] DublinComment on above: Performed By: #### CBC ####[facility] Yzpnmnpkvw3425[address] [place], [place] [address]Dr.Abhinav ChangIG %0.2 %Normal0.0-0.5The [facility] DublinComment on above:Performed By: #### CBC ####[facility] Uzhdhtrogk2404[address] [place], [place] [address]Dr.Abhinav LagunaLYMPH #3.0 103/ulNormal1.2-3.8The [facility] DublinComment on above:Performed By: #### CBC ####[facility] Wbwvuvvhom2977[address] [place], [place] [address]Dr. Abhinav LagunaLymphocytes/100 WBC (Bld)34.8 %Llaebo03.5-60.0The [facility] Comment on above:Performed By: #### CBC ####[facility] Hqylhffgbg5347[address] [place], [place] [address]Dr.Abhinav LagunaMANUAL DIFF REQNONormalThe [facility] DublinComment on above:Performed By: #### CBC ####[facility] Oadwgvbgxd0434[address] [place], [place] [address]Dr.Abhinav LagunaMCH (RBC) [Entitic mass]30.6 heCkwvtg73.9-34.0The [facility] DublinComment on above: Performed By: #### CBC ####[facility] Wiacotolmp6458[address] [place], [place] [address]Dr.Abhinav LagunaMCHC (RBC) [Mass/Vol]35.0 g/dLNormal 29.9-35.2The [facility] DublinComment on above:Performed By: #### CBC ####[facility] Xkqmimvtut0317[address] [place], [place] [address]Dr. Abhinav LagunaMCV (RBC) [Entitic vol]87.5 sDYrvjxe92.0-94.0The [facility] Comment on above:Performed By: #### CBC ####[facility] Mltpojfwhm701[address] [place], [place] [address]Dr.Abhinav LagunaMONO #0.7 103/ulNormal0.3-0.8 The [facility] DublinComment on above:Performed By: #### CBC ####[facility] Ublcehlrwe18[address] [place], [place] [address]Dr.Abhinav Laguna Monocytes/100 WBC (Bld)8.0 %Normal1.7-12.0The [facility] DublinComment on above: Performed By: #### CBC ####[facility] Ipwcjynurx9005[address] [place], [place] [address]Dr.Abhinav LagunaNEUT #4.5 103/ulNormal1.4-6.5The [facility] DublinComment on above:Performed By: #### CBC ####[facility] Nqjoohktwn9254[address] [place], [place] [address]Dr.Abhinav LagunaNeutrophils/100 WBC (Bld)52.8 %Ocjztl51.0-75.0The [facility] DublinComment on above:Performed By: #### CBC ####[facility] Tdlzgcunra9268[address] [place], [place] [address]Dr.Abhinav JasePlatelet mean volume (Bld) [Entitic vol]11.1 fLNormal9.5-13.5 The [facility] - DublinComment on above:Performed By: #### CBC ####[facility] Bvptclfqnt[address] [place] [address]Dr.Abhinav IuaulCZI062 103/nqXlrwlp503-235Bbi [facility] DublinComment on above:Performed By: #### CBC ####[facility] Hpzpowwtxw9[address] [place] [address]Dr. Abhinav ChangRBC5.03 106/ulNormal4.70-6.10The [facility] DublinComment on above: Performed By: #### CBC ####[facility] Sfzjwnkcng85[address] [place] [address]Dr.Abhinav ChangWBC8.6 103/ulNormal4.0-11.0The [facility] DublinComment on above:Performed By: #### CBC ####[facility] Xcmsrmsjss2232[address] [place], [place] [address]Dr.Abhinav ChangPROF 14(COMP METB)on 79-44-2451Aohvgta [Mass/Vol]2.8 g/dLCritically low3.4-5.0The [facility] DublinComment on above:Performed By: #### CMP ####[facility] Yemawvfnia6436[address] [place], [place] [address]Dr.Abhinav Laguna Albumin/Globulin [Mass ratio]0.9 {ratio}NormalThe [facility] DublinComment on above:Performed By: #### CMP ####[facility] Moxzixdrtg587[address] [place], [place] [address]Dr.Abhinav LagunaALP [Catalytic activity/Vol]146 U/L Critically bpdv93-307Nru [facility] DublinComment on above:Performed By: #### CMP ####[facility] Xczfzrojlb4789[address] [place], [place] [address]Dr. Abhinav LagunaALT [Catalytic activity/Vol]47 U/STdgwmw53-04Yte [facility] Comment on above:Performed By: #### CMP ####[facility] Usidveyhyg212[address] [place], [place] [address]Dr.Abhinav LagunaAnion gap [Moles/Vol]7.8 mmol/LNormalThe [facility] DublinComment on above:Performed By: #### CMP ####[facility] Gmhydqyrte68[address] [place] [address]Dr. Yilan ChangAST [Catalytic activity/Vol]22 U/GOqlzox50-61Dpc [facility] Comment on above:Performed By: #### CMP ####[facility] Wcrjzpvjur[address] [place], [place] [address]Dr.Yilan ChangBilirubin [Mass/Vol]0.4 mg/dL Normal0.2-1.0The [facility] DublinComment on above:Performed By: #### CMP ####[facility] Vtatjdcwle[address] [place], [place] [address]Dr. Yilan ChangCalcium [Mass/Vol]8.8 mg/dLNormal8.5-10.1The [facility] DublinComment on above:Performed By: #### CMP ####[facility] Duioyoleql4398[address] [place], [place] [address]Dr.Yilan ChangChloride [Moles/Vol]103 mmol/LNormal 98-107The [facility] DublinComment on above:Performed By: #### CMP ####[facility] Kzhqhiogey5290[address] [place], [place] [address]Dr.Yilan ChangCO2 [Moles/Vol]25.7 mmol/AXkxpna86.0-32.0The [facility] DublinComment on above: Performed By: #### CMP ####[facility] Yjkqvausue0827[address] [place], [place] [address]Dr.Yilan ChangCreatinine [Mass/Vol]0.79 mg/dLNormal 0.70-1.30The [facility] DublinComment on above:Performed By: #### CMP ####[facility] Xllfpmdede[address] [place], [place] [address]Dr. Yilan ChangEGFR-AF NEPALESE>60Normal>=60The [facility] DublinComment on above: Performed By: #### CMP ####[facility] Csigwhotld4799[address] [place], [place] [address]Dr.Yilan ChangEGFR-NON AF NEPALESE>60Normal>=60The [facility] DublinComment on above:Performed By: #### CMP ####[facility] Tlvesczmef[address] [place] [address]Dr.Abhinav LagunaGlobulin (S) [Mass/Vol]3.1 g/dLNoCleveland Clinic South Pointe HospitalComment on above:Performed By: #### CMP ####[facility] Ufbtomnmvh0959[address] [place], [place] [address]Dr.Abhinav ChangGlucose [Mass/Vol]194 mg/dLCritically xoyh20-989Ewb [facility] DublinComment on above:Performed By: #### CMP ####[facility] Djkcsxzhjr5987[address] [place], [place] [address]Dr.Abhinav LagunaPotassium [Moles/Vol]3.5 mmol/LNormal3.5-5.1The [facility] DublinComment on above: Performed By: #### CMP ####[facility] Dhyvvduuwa044[address] [place], [place] [address]Dr.Abhinav ChangProtein [Mass/Vol]5.9 g/dLCritically low 6.1-8.2The [facility] DublinComment on above:Performed By: #### CMP ####[facility] Voifzvygzx900[address] [place], [place] [address]Dr.Abhinav Laguna Sodium [Moles/Vol]133 mmol/LCritically eqe052-658Bjg [facility] DublinCombaraga county memorial hospital on above:Performed By: #### CMP ####[facility] Zqcwituvev7400[address] [place] [address]Dr.Mirandalan ChangUrea nitrogen [Mass/Vol]11.0 mg/dLNormal 7.0-18.0The [facility] DublinComment on above:Performed By: #### CMP ####[facility] Psnbropyog67[address] [place], [place] [address]Dr. Mirandalan ChangUrea nitrogen/Creatinine [Mass ratio]13.9 mg/mgNoCleveland Clinic South Pointe HospitalCombaraga county memorial hospital on above:Performed By: #### CMP ####[facility] Lhrmctyhsy[address] [place], [place] [address]Dr.Mirandalan ChangACETONE SERUMon 49-00-3947JZVXOMGMVGDWRyaminbsGQQNGXNLSmf [facility] [place] - DublinComment on above: Performed By: #### ACETON ####[facility] Lewaaomnww5786[address] [place], [place] [address]Dr. Abhinav LagunaCBC AUTO DIFFon 59-64-1748KTWE #0.1 103/ulNormal0.0-0.1The [facility] [place] - DublinComment on above:Performed By: #### CBC ####[facility] Qxlrzpsnkp5390[address] [place], [place] [address]Dr. Abhinav ChangBasophils/100 WBC (Bld)0.8 %Normal0.2-2.0The [facility] [place] - DublinComment on above:Performed By: #### CBC ####[facility] Nfxitzbpeo289[address] [place], [place] [address]Dr.Mirandalan ChangEO #0.2 103/ulNormal0.0-0.7The [facility] [place] - DublinComment on above:Performed By: #### CBC ####[facility] Khazakyswg[address] [place], [place] [address]Dr.Abhinav ChangEosinophils/100 WBC (Bld)1.6 %Normal0.9-7.0The [facility] [place] - DublinComment on above:Performed By: #### CBC ####[facility] Rthkmtlcpg[address] [place], [place] [address]Dr.Abhinav ChangErythrocyte distribution width (RBC) [Ratio]12.2 %Normal 11.0-15.0The [facility] [place] - DublinComment on above:Performed By: #### CBC ####[facility] Sriiskpyax9339[address] [place], [place] [address]Dr. Abhinav ChangHematocrit (Bld) [Volume fraction]47.9 %Yqnpok31.0-54.0The [facility] [place] - DublinComment on above:Performed By: #### CBC ####[facility] Ormslzesjt7334[address] [place], [place] [address]Dr.Abhinav ChangHemoglobin (Bld) [Mass/Vol]17.3 g/vEQzteou93.0-18.0The [facility] [place] - DublinComment on above: Performed By: #### CBC ####[facility] Rnnavfezrc280[address] [place], [place] [address]Dr.Abhinav LagunaIG #0.03 10e3/ulNormal0.00-0.03The [facility] [place] - DublinComment on above:Performed By: #### CBC ####[facility] [address] [place] [address]Dr.Abhinav LagunaIG %0.3 %Normal 0.0-0.5The [facility] HospitalComment on above:Performed By: #### CBC ####[facility] Vovuqfkekx6826[address] [place], [place] [address]Dr.Abhinav LagunaLYMPH #1.7 103/ulNormal1.2-3.8The [facility] HospitalComment on above:Performed By: #### CBC ####[facility] Bntvulrkyj0859[address] [place], [place] [address]Dr.Abhinav Hernandezhocytes/100 WBC (Bld)18.9 %Critically low20.5-60.0The [facility] [place] - DublinComment on above:Performed By: #### CBC ####[facility] Euuearulgn0924[address] [place], [place] [address]Dr.Abhinav LagunaMANUAL DIFF REQ NONormalThe [facility] - DublinComment on above:Performed By: #### CBC ####[facility] Upkgbzdawk2266[address] [place], [place] [address]Dr. Abhinav LagunaCALVARY HOSPITAL (RBC) [Entitic mass]31.2 fiJvzfly13.9-34.0The [facility] Comment on above:Performed By: #### CBC ####[facility] Eycoqunfon540[address] [place], [place] [address]Dr.Abhinav LagunaMANHATTAN PSYCH[facility]ATR[facility] (RBC) [Mass/Vol]36.1 g/dL Critically high29.9-35.2The [facility] [place] DublinComment on above:Performed By: #### CBC ####[facility] Qegsieezyt781068 [address] [place], [place] [address]Dr.Abhinav LagunaHOLDENVILLE [facility] [place] (RBC) [Entitic vol]86.5 iMOtlpua26.0-94.0The [facility] [place] - DublinComment on above:Performed By: #### CBC ####[facility] Frxhoybfex[address] [place], [place] [address]Dr.Yilan ChangMONO #0.5 103/ulNormal0.3-0.8The [facility] DublinComment on above:Performed By: #### CBC ####[facility] [address]ftxi[address] [place] [address]Dr. Yilan ChangMonocytes/100 WBC (Bld)5.6 %Normal1.7-12.0The [facility] Comment on above:Performed By: #### CBC ####[facility] [address]pjulqvmz[address] [place] [address]Dr.Yilan ChangNEUT #6.6 103/ulCritically high1.4-6.5The [facility] - DublinComment on above:Performed By: #### CBC ####[facility] Cvkzixyudt5237[address] [place], [place] [address]Dr. Yilan ChangNeutrophils/100 WBC (Bld)72.8 %Atdfig79.0-75.0The [facility] Comment on above:Performed By: #### CBC ####[facility] Unpqstiqnp5155[address] [place], [place] [address]Dr.Yilan ChangPlatelet mean volume (Bld) [Entitic vol]11.3 fLNormal9.5-13.5The [facility] DublinComment on above: Performed By: #### CBC ####[facility] Jthdhvbrcq107[address] [place], [place] [address]Dr.Yilan KpojjBMB093 103/xhTnjfjr586-631Uuc [facility] - DublinComment on above:Performed By: #### CBC ####[facility] Bqfrufthtg4[address] [place], [place] [address]Dr.Yilan ChangRBC5.54 106/ul Normal4.70-6.10The [facility] - DublinComment on above:Performed By: #### CBC ####[facility] Zsyvwnnbdr9409[address] [place], [place] [address]Dr. Yilan ChangWBC9.1 103/ulNormal4.0-11.0The [facility] DublinComment on above: Performed By: #### CBC ####[facility] [address] [place], [place] [address]Sp.Abhinav ChangCovid-19 PCR (CVDTB)on 12-18-2021 SARS-CoV-2 (COVID-19) RNA EVERT+probe Ql (Unsp spec)Not detectedNormalNOT DETECTED The [facility] - DublinComment on above:Result Comment: When diagnostic testing is negative, the possibility of a false negative should be considered inthe context of a patient's recent exposures and the presence of clinical signs and sympt omsconsistent with SARS-CoV-2.This test is not yet approved or cleared by the [place] Food and Drug Administration (FDA).This test was developed by [employer], [place], [place]. The performance characteristics ofthis test were validated by The [facility]. The results arenot intended to beused as the sole means for clinical diagnosis or patient management decisions. The [facility] is authorized under Clinical Laboratory Improvement Amendments (CLIA) to perform high-complexity testing.This test is not yet approved or cleared by the [place] FDA. When there are no FDA- approved or cleared tests available, and other criteria are met, FDA can make tests available under an emergency access mechanism called an Emergency Use Authorization (EUA). The EUA for this test is supported by the [place] of Health and Human Service's declaration that circumstancesexist to justify the emergency use of in vitro diagnostics for the detection and/or diagnosis of the virus that causes COVID-19. This EUA will remain in effect for the duration of the COVID-19 declaration justifying emergency of IVDs, unless it is terminated or revoked by the FDA (after which the test may no longer be used).Performed By: #### CVDTB ####[facility] [address] [place], [place] [address]Hh. Abhinav ChangER URINE PROFILEon 72-98-1248Yumcnsulk Ql (U)NegativeNormal NEGATIVEThe [facility] - DublinComment on above:Performed By: #### ERUR ####[facility] [address]vtuoojy[address] [place], [place] [address]Ks. Mirandalan ChangClarity (U)CLEARNormalCLEARThe [facility] - DublinComment on above: Performed By: #### ERUR ####[facility] [address]xwagma[address] [place] [address]Dr. Yilan ChangColor (U)LT. YELLOWNormalYELLOWMansfield HospitalComment on above:Performed By: #### ERUR ####[facility] Ztfgjijeyv0944[address] [place], [place] [address]Dr. Yilan ChangERUAHDA micrscopic examination will be performed if indicated.NormalThe [facility]es HospitalComment on above:Performed By: #### ERUR ####[facility] Endtqktrbq9004[address] [place], [place] [address]Dr. Yilan ChangGlucose Ql (U) >1000AbnormalNEGATIVEMansfield HospitalComment on above:Performed By: #### ERUR ####[facility] Kompbruldq517[address] [place], [place] [address]Dr. Yilan ChangHemoglobin Ql (U)NegativeNormalNEGATIVEThe [facility] Comment on above:Performed By: #### ERUR ####[facility] Xwbhotlfny2833[address] [place], [place] [address]Dr. Yilan ChangKetones Ql (U)TRACEAbnormal NEGATIVETrihealth Mccullough-[facility] Hospital HospitalComment on above:Performed By: #### ERUR ####[facility] Uoojmaansy429[address] [place], [place] [address]Dr. Yilan ChangLEUKOCYTESNegativeNormalNEGATIVEMansfield HospitalComment on above:Performed By: #### ERUR ####[facility] Irjwzoevyo816[address] [place], [place] [address]Dr. Yilan ChangNitrite Ql (U)NegativeNormalNEGATIVEMansfield HospitalComment on above:Performed By: #### ERUR ####[facility] Xisklxunfo228[address] [place], [place] [address]Dr. Yilan ChangpH (U)6.5 [pH] Normal5-9Mansfield HospitalComment on above:Performed By: #### ERUR ####[facility] Onzzjcqfff6189[address] [place], [place] [address]Dr. Yilan ChangSPEC GRAVITY<=1.494Vbbdadeq5.005-<=1.025The [facility] DublinComment on above:Performed By: #### ERUR ####[facility] Paekfkcvns7413[address] [place], [place] [address]Dr. Yilan ChangUA PROTEINNegativeNormalNEGATIVE/ TRACE The [facility] [place] - DublinComment on above:Performed By: #### ERUR ####[facility] Yqpamwekcn2686[address] [place], [place] [address]Dr. Yilan ChangUR MICRO INDNOT INDICATEDNormalThe [facility] [place] DublinComment on above:Performed By: #### ERUR ####[facility] Elbrafctob8297[address] [place], [place] [address]Dr. Yilan ChangUrobilinogen Qn (U)0.2 {Marshall'U}/dLNormal0.2 - 1.0The [facility] [place] DublinComment on above:Performed By: #### ERUR ####[facility] Gwqtvfkgvs5300[address] [place], [place] [address]Dr. Yilan ChangPH VENOUS BLOODon 92-06-0526MMY6 GRJDEM28.4 apDnNegmpc85.0-52.0The [facility] Comment on above:Performed By: #### PHVEN ####[facility] Onmvwgoblu4690[address] [place], [place] [address]Dr. Yilan ChangpH VENOUS7.385Normal 7.330-7.430M[facility]field HospitalComment on above:Performed By: #### PHVEN ####[facility] Nlfimffgrl3829[address] [place], [place] [address]Dr. Abhinav [facility] CARE GLUCOSEon 08-13-9700Pogueoh [Mass/Vol]363 mg/dL Critically xiel47-676IbuMansfield HospitalComment on above:Performed By: #### POCGLUC ####[facility] Aubnxmzbgi6025[address] [place], [place] [address]Dr. Yilan ChangGlucose [Mass/Vol]453 mg/dLCritically xfao89-721FpnMansfield HospitalComment on above:Performed By: #### POCGLUC ####[facility] Wzfythgdfn0165[address] [place], [place] [address]Dr. Mirandalan ChangGlucose [Mass/Vol]444 mg/dLCritically bcgb97-613Dtt [facility] DublinComment on above: Performed By: #### POCGLUC ####[facility] Aspwzgggon[address] [place], [place] [address]Dr. Abhinav ChangGlucose [Mass/Vol]462 mg/dLCritically xgmr26-169Ljy [facility] DublinComment on above:Performed By: #### POCGLUC ####[facility] Yoxuwqyscs7947[address] [place], [place] [address]Dr. Yigallo ChangPOCGLUC>600Critically kqmc54-909Eud [facility] DublinComment on above:Result Comment: Lab Draw OrderedPerformed By: #### POCGLUC ####[facility] Xuztcjoylq8825[address] [place], [place] [address]Dr. Abhinav Laguna POCGLUC>600Critically ubdm87-712Tgr [facility] DublinComment on above:Result Comment: Lab Draw OrderedPerformed By: #### POCGLUC ####[facility] Owizjxzgcm3044[address] [place], [place] [address]Dr. Mirandalan ChangPROF 14(COMP METB)on 77-04-5384Vmbtllu [Mass/Vol]3.4 g/dLNormal3.4-5.0[facility] Comment on above:Performed By: #### CMP ####[facility] Fwsbfypxnq1779[address] [place], [place] [address]Dr.Abhinav ChangAlbumin/Globulin [Mass ratio] 0.9 {ratio}NormalMansfield HospitalComment on above:Performed By: #### CMP ####[facility] Rluwdvtfde2524[address] [place], [place] [address]Dr. Mirandalan ChangALP [Catalytic activity/Vol]268 U/LCritically kmfq66-868Ldt [facility] DublinComment on above:Performed By: #### CMP ####[facility] Wwwlykmbvu7188[address] [place], [place] [address]Dr.Yilan ChangALT [Catalytic activity/Vol]56 U/DXhdnsq39-56Lit [facility] DublinComment on above:Performed By: #### CMP ####[facility] Wlmkxdhahe728[address] [place], [place] [address]Dr.Yilan ChangAnion gap [Moles/Vol]7.7 mmol/LNormalThe [facility] Comment on above:Performed By: #### CMP ####[facility] Zrttroaejw9795[address] [place], [place] [address]Dr.Yigallo ChangAST [Catalytic activity/Vol]20 U/PZimloi88-78Yvu [facility] DublinComment on above:Performed By: #### CMP ####[facility] Iejievhcmw979[address] [place], [place] [address]Dr. Yilan ChangBilirubin [Mass/Vol]0.7 mg/dLNormal0.2-1.0The [facility] Comment on above:Performed By: #### CMP ####[facility] Xpiecryvmy1710[address] [place], [place] [address]Dr.Abhinav ChangCalcium [Mass/Vol]9.9 mg/dL Normal8.5-10.1The [facility] DublinComment on above:Performed By: #### CMP ####[facility] Vdjlgxdply360[address] [place], [place] [address]Dr. Yigallo ChangChloride [Moles/Vol]91 mmol/LCritically uqe70-676Oxz [facility] DublinComment on above:Performed By: #### CMP ####[facility] Hxrkkjjkdt8000[address] [place], [place] [address]Dr.Yigallo ChangCO2 [Moles/Vol] 28.0 mmol/QFiqskp66.0-32.0The [facility] DublinComment on above:Performed By: #### CMP ####[facility] Csltjjnqxm7006[address] [place], [place] [address]Dr.Yilan ChangCreatinine [Mass/Vol]1.15 mg/dLNormal0.70-1.30The [facility] DublinComment on above:Performed By: #### CMP ####[facility] Wmeoihyuup5017[address] [place], [place] [address]Dr.Yilan ChangEGFR-AF NEPALESE>60Normal>=60The [facility] DublinComment on above:Performed By: #### CMP ####[facility] Xtfbxwgbft0968[address] [place], [place] [address]Dr. Yilan ChangEGFR-NON AF NEPALESE>60Normal>=60The [facility] DublinComment on above:Performed By: #### CMP ####[facility] Edyijelpsd9679[address] [place], [place] [address]Dr.Abhinav LagunaGlobulin (S) [Mass/Vol]3.9 g/dLNormalThe [facility] DublinComment on above:Performed By: #### CMP ####[facility] Elvtxjnjrv6866[address] [place], [place] [address]Dr.Abhinav ChangGlucose [Mass/Vol]640 mg/dLCritically oaqg47-807Svo [facility] DublinComment on above: Performed By: #### CMP ####[facility] Edntcxdfjn5823[address] [place], [place] [address]Dr.Abhinav ChangPotassium [Moles/Vol]4.7 mmol/LNormal 3.5-5.1The [facility] DublinComment on above:Performed By: #### CMP ####[facility] Dkdxysxyrn4210[address] [place], [place] [address]Dr.Abhinav Laguna Protein [Mass/Vol]7.3 g/dLNormal6.1-8.2The [facility] DublinComment on above: Performed By: #### CMP ####[facility] Grzfxdozpn057[address] [place], [place] [address]Dr.Yigallo ChangSodium [Moles/Vol]124 mmol/LCritically ghh209-379Jin [facility] DublinComment on above:Performed By: #### CMP ####[facility] Ivjagiknjl2337[address] [place], [place] [address]Dr. Mirandalan ChangUrea nitrogen [Mass/Vol]17.0 mg/dLNormal7.0-18.0The [facility] Comment on above:Performed By: #### CMP ####[facility] Kywcbligzq5923[address] [place], [place] [address]Dr.Mirandalan ChangUrea nitrogen/Creatinine [Mass ratio]14.8 mg/mgNormalThe [facility] DublinComment on above:Performed By: #### CMP ####[facility] Lllcdlbfki6270[address] [place], [place] [address]DrNohemi Laguna Vital Signs Date TimeVital SignValuePerforming FaykojjkuXlaludyv07-46-5438 10:25-0400 Diastolic blood fuhuaccf51 mm[Hg][facility]05-15-2025 10:25-0400Heart rate73 /[facility]05-15-2025 10:25-0400Respiratory rate14 /[facility]05-15-2025 10:25-6934SuZ3% (BldA) [Mass fraction]96 %[facility] 12-29-2024 10:25-0400Systolic blood lapnxnrh420 mm[Hg][facility]05-15-2025 09:31-0400Inhaled oxygen flow rate4 L/[facility]05-15-2025 07:36-0400Body icamvf923.8 cmPrem[facility]05-15-2025 07:36-0400Body iizxwwpbfbf60.4 [degF][facility]05-15-2025 07:36-0400Body hwbqaa44.04 kgPrem[facility] Health [facility]12-19-2024 10:05-0500Diastolic blood qkrevocf08 mm[Hg][facility]12-19-2024 10:05-0500Heart rate77 /[facility]12-19-2024 10:05-0500Respiratory rate18 /[facility]12-19-2024 10:05-1482MpH4% (BldA) [Mass fraction]97 %[facility]12-19-2024 10:05-0500Systolic blood mm[Hg][facility]12-19-2024 09:35-0500Body ozfqoooctyc86.6 [degF][facility]12-19-2024 07:40-0500Body .34 cmPrem[facility] Health [facility]12-19-2024 07:40-0500Body paqhdr32.18 kgPrem[facility] Health [facility]11-20-2024 14:17-0500Body hfqqcu139.3 River Orlando MD Work Phone: [facility]11-20-2024 14:17-0500Body mass index (BMI) [Ratio]26.51 kg/m2Annmarie Orlando MD Work Phone: [facility]11-20-2024 14:17-0500Body dijgxo64.23 kgAnnmarie Orlando MD Work Phone: [facility]11-20-2024 14:17-0500Diastolic blood vxrdwqju90 mm[Hg]Annmarie Orlando MD Work Phone: [facility]11-20-2024 14:17-0500Heart rate 82 /minAnnmarie Orlando MD Work Phone: [facility]11-20-2024 14:17-0500Systolic blood vclouaha923 mm[Hg]Annmarie Orlando MD Work Phone: [facility]11-07-2024 12:37-0500Body yrejmm204.8 cmPrem[facility]11-07-2024 12:37-0500Body weight 83.46 kgPremier Health [facility]10-28-2024 09:31-0400Body emmksm198.3 Dhara Méndez MD Work Phone: [facility]10-28-2024 09:31-0400Body mass index (BMI) [Ratio]26.08 kg/m3DtkssLuca Méndez MD Work Phone: [facility]10-28-2024 09:31-0400Body aefgfj89.82 Christian Méndez MD Work Phone: [facility]10-21-2024 14:41-0400Body .3 Dhara Méndez MD Work Phone: [facility]10-21-2024 14:41-0400Body mass index (BMI) [Ratio]26.11 kg/g8AgqjyLuca Méndez MD Work Phone: [facility]10-21-2024 14:41-0400Body qazcbilsdxj19.5 [degF]Luca Méndez MD Work Phone: [facility]10-21-2024 14:41-0400Body .91 kgLuca Méndez MD Work Phone: [facility]09-26-2024 15:33-0400Body syzxxu669.3 Mariia Iraheta DO Work Phone: [facility]09-26-2024 15:33-0400Body mass index (BMI) [Ratio]25.61 kg/h8SzegiiBetsy Iraheta DO Work Phone: [facility]09-26-2024 15:33-0400Body hxqyze96.28 kgBetsy Iraheta DO Work Phone: [facility]09-26-2024 15:33-0400Diastolic blood bowlglpk82 mm[Hg]Betsy Iraheta DO Work Phone: [facility]09-26-2024 15:33-0400Heart rate 85 /minSvick Iraheta DO Work Phone: [facility]09-26-2024 15:33-5244ScS8% (BldA) [Mass fraction]96 %Betsy Iraheta DO Work Phone: [facility]09-26-2024 15:33-0400Systolic blood mbvotavb006 mm[Hg]Betsy Iraheta DO Work Phone: [facility]08-22-2024 13:02-0400Body bqhbeq010.3 Dhara Méndez MD Work Phone: [facility] System08-22-2024 13:02-0400Body mass index (BMI) [Ratio]21.76 kg/n3KbyyzLuca Méndez MD Work Phone: [facility]08-22-2024 13:02-0400Body rpacqj79.76 kgLuca Méndez MD Work Phone: [facility]03-04-2024 14:16-0500Heart rate 93 /Sobeida Evans MD Work Phone: [phone]03-04-2024 14:16-0500 Respiratory rate18 /Sobeida Evans MD Work Phone: [facility]03-04-2024 14:16-4989IqW0% (BldA) [Mass fraction]93 %Jay Evans MD Work Phone: [phone]03-04-2024 12:10-0500Body khcbbzpzxii36.8 [degF]Jay Evans MD Work Phone: [phone]03-04-2024 12:10-0500Diastolic blood mm[Hg]Jay Evans MD Work Phone: [phone] Nnpyfg62-29-5868 12:10-0500Systolic blood ovjqutii061 mm[Hg]Jay Evans MD Work Phone: [phone]03-04-2024 03:14-0500Body mass index (BMI) [Ratio]21.73 kg/j7RlszkwJay Evnas MD Work Phone: [phone]03-04-2024 03:14-0500Body pwyqdx45.67 kgJay Evans MD Work Phone: [phone] Rfbeio70-08-2416 01:51-0500Body wuwnbu878.3 cmJay Evans MD Work Phone: [phone] [place], [place] 4310202-28-2024 22:26-0500Body yalagbakhxo94.6 [degF]Jay Evans MD Work Phone: [phone]01-21-2024 22:33-0500Heart rate 98 /minLuna Carroll DO Work Phone: bon [facility]01-21-2024 22:18-0500Diastolic blood mwblagpd93 mm[Hg]Luna Carroll DO Work Phone: bon [facility]01-21-2024 22:18-0500Systolic blood ntmwertr061 mm[Hg]Luna Carroll DO Work Phone: bon [facility]01-21-2024 21:48-0500 Respiratory rate30 /minChjose juan Carroll DO Work Phone: [facility]01-21-2024 20:25-0500Body kjvsxbjxzii34.59 [degF]Luna Carroll DO Work Phone: [facility]01-21-2024 20:25-9758IzJ7% (BldA) [Mass fraction]94 %Luna Carroll DO Work Phone: bon [facility]07-18-2023 01:00-0400Diastolic blood bwyyindm49 mm[Hg]MD Julius Saldaña Jr Work Phone: [facility]07-18-2023 01:00-0400 Heart rate74 /minMD Julius Saldaña Jr Work Phone: [phone]07-18-2023 01:00-0400 Respiratory rate12 /minMD Julius Saldaña Jr Work Phone: [phone]07-18-2023 01:00-0400 SaO2% (BldA) [Mass fraction]95 %MD Julius Saldaña Jr Work Phone: [facility]07-18-2023 01:00-0400 Systolic blood fitiesud964 mm[Hg]MD Julius Saldaña Jr Work Phone: [facility]07-17-2023 21:22-0400 Body gdqytt331.34 cmMD Juilus Saldaña Jr Work Phone: [facility]07-17-2023 21:22-0400 Body ppxifa51.2 kgMD Julius Saldaña Jr Work Phone: [facility]07-17-2023 20:24-0400 Body ethmnecncee88.9 [degF]MD Julius Saldaña Jr Work Phone: [facility] Encounters Encounter DateEncounter TypeCare ProviderFacilmercy health [facility]ermont hospitalStart: 05-30-2025 End: 43-51-9114ebnkwbygsfWXULDWyandot Memorial Hospitaltart: 05-03-2025 End: 62-43-3868Ubfevrjhk department patient visitSSan Dimas Community Hospitaltart: 12-31-2024 End: 68-20-0116fvqmgdtdzrLFDFPWyandot Memorial Hospitaltart: 12-29-2024 End: 43-13-7753Vjtiblndy to same day surgery [facility] CenterSur[facility] PrebleStart: 12-29-2024 End: 70-76-6129mxtkvgtranEPWCity Hospital Work Phone: Start: 12-22-2024 End: 72-83-1211Wkufjvs encounter procedureOhiohealth [facility]-Pre-Surgical Testing Work Phone: Start: 12-22-2024 End: 22-27-8514biiuhuyouqVRWCity Hospital Work Phone: Start: 11-03-2024 End: 91-74-8232Stmbjsxbw department patient visitSSan Dimas Community Hospitaltart: 08-04-2024 End: 13-18-1619Exbkxmcld to same day surgery [facility] CenterSurgery [facility] CampusStart: 08-04-2024 End: 15-98-4639oxoaosgsxgZwmvmuiuuSni MadridFacility:[facility] Hospitaltart: 07-18-2024 End: 77-69-7953zehzgbtzmpGNIOUS W [facility] Hospitaltart: 07-07-2024 End: 84-44-3895uqoysfcbouCISCity Hospital Work Phone: Start: 07-07-2024 End: 27-52-8256Gnwnptni [facility] HospitalSurgery [facility] PrebleStart: 07-06-2024 End: 77-97-2624Wuctuapnw department patient visitSSan Dimas Community Hospitaltart: 07-06-2024 End: 07-50-2679Nvkkli outpatient new 45 minutesAnnmarie Orlando MD Work Phone: [facility]icians NeurologyComment on above: Learning disability (Primary Dx); History of subdural hematoma (post traumatic); History of substance abuse ([facility])Start: 07-06-2024 End: 13-07-5820qjyafxxscpTAWG [facility] PPG Start: 06-23-2024 End: 13-40-5852Qboeuhru ReferredSt. Charles Hospital Kii-Ywb-Vmdhgesk Testing Work Phone: Start: 06-23-2024 End: 29-22-9914Qbwasth encounter procedureSt. Charles Hospital Ywc-Rlw-Fchbzoue Testing Work Phone: Start: 06-23-2024 End: 75-32-2605iiytqehdwkYSF [facility] Work Phone: Start: 06-13-2024 End: 93-91-6106Eiuuju outpatient visit 15 minutesLuca Méndez MD Work Phone: [facility] Ear, Nose and ThroatComment on above:Vocal fold paralysis, bilateral (Primary Dx); Dysphonia; Pharyngoesophageal dysphagiaStart: 06-13-2024 End: 43-21-2573ydoofbgkbkYCQVXMission Bernal campus Ambulatory PPGStart: 06-06-2024 End: 31-41-1935Pbjhlr outpatient visit 15 minutesLuca Méndez MD Work Phone: [facility] Ear, Nose and ThroatComment on above:Vocal fold paralysis, bilateral (Primary Dx); Dysphonia; Pharyngoesophageal dysphagia; Aspiration pneumonia of both lower lobes due to gastric secretions ([facility]) Start: 06-06-2024 End: 05-71-7386ghfrtiottkOJUHQGuthrie [facility]anda [facility] Hospital Ambulatory PPGStart: 06-06-2024 End: 22-37-5198Iosdeylil encounterCarkelle NavarreteDunlap Memorial Hospital Physicians Neurology Comment on above:Sooner ApptStart: 05-12-2024 End: 15-29-3461Qzmucm outpatient new 45 minutesDrewdylon Iraheta DO Work Phone: [facility] Physicians Pulmonary/Sleep MedicineComment on above:Recurrent aspiration pneumonia (CMS-HCC) (Primary Dx); Aspiration pneumonia of both lower lobes due to gastric secretions (CMS-HCC); Smoking addiction; Cigarette nicotine dependence, uncomplicated; Chronic obstructive pulmonary disease, unspecified COPD type (CMS-HCC)Start: 23-49-1516vcommqalhaNDOIRH [facility] Ambulatory PPGStart: 05-05-2024 End: 30-57-5645Ijogrcyqz encounterAngie Rodríguezinfirmary lt[facility] Physicians Neurology Start: 04-21-2024 End: 46-16-0717Rnymmlepg encounterLuca Méndez MD Work Phone: [facility] Physicians Ear, Nose and ThroatStart: 04-07-2024 End: 74-76-3098Vdlvpy outpatient [facility] 45 minutesLuca Méndez MD Work Phone: [facility] Physicians Ear, Nose and ThroatComment on above:Vocal fold paralysis, bilateral (Primary Dx); Toxic encephalopathy; Pharyngoesophageal dysphagia; Dysphonia; Aspiration pneumonia of both lower lobes due to gastric secretions ([facility]) Start: 04-07-2024 End: 83-95-7112haygzqaoflVNQAYWillis-K[facility] Ambulatory PPGStart: 10-14-2023 End: 68-46-3105Oqczinpypq and management of inpatientDavid Cyr DO Work Phone: [facility] Care Comment on above:Aspiration pneumonia of both lower lobes, unspecified aspiration pneumonia type (CMS-HCC) (Primary Dx); Metabolic encephalopathyStart: 24-09-6925Menfaymmt encounterDigestive Healthcare Consultants Work Phone: [facility] Physicians Digestive HealthcareStart: 50-77-4353Ztuvdjylq Result EncounterSjeffrey Hernandez NP Work Phone: NONL External Department UnsolicitedStart: 09-29-2023 Clinisync Result EncounterSjeffrey Hernandez WAREHOUSE WORKER 2ND [employer]IFT Work Phone: noms External Department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 mood, Requires cueing, Alert Dentition: Edentulous Vision: Functional for self-feeding Patient Positioning: Upright in chair Baseline Vocal Quality: Breathy, Weak Volitional Cough: Weak Volitional Swallow: Absent Laryngectomy: No Ability to Control Secretions: Yes Previously Prescribed Diets: Previous modified diet Room Service: Appropriate with assist for room service Feeding Assistance: Able to feed self Current Diet Type: Level 4 Pureed Appetite: Good Fluid Restrictions: no liquids Allergies Marked As Reviewed: Complete Consistencies Tested Views: Lateral position Level 0 Thin: Spoon Level 2 Mildly Thick: Spoon Level 3 Moderately Thick: Spoon Level 4 Pureed: Spoon Level 6 Soft & Bite-Sized: Spoon Regular Tested: Bite Modified Barium Swallow Impairment Profile (MBSImP) Oral Impairment: Yes Component 1: Lip Closure: no labial escape Component 2: Tongue Control During Bolus Hold: posterior escape of greater than half of bolus Component 3: Bolus Preparation/Mastication: slow prolonged chewing/mashing with complete re-collection Component 4: Bolus Transport/Lingual Motion: delayed initiation of tongue motion Component 5: Oral Residue: trace residue lining oral structures Component 6: Initiation of Pharyngeal Swallow: bolus head in pyriforms Pharyngeal Impairment: Yes Component 7: Soft Palate Elevation: no bolus between soft palate/posterior pharyngeal wall Component 8: Laryngeal Elevation: minimal superior movement of thyroid cartilage with minimal approximation of arytenoids to epiglottic petiole Component 9: Anterior Hyoid Excursion: partial anterior movement Component 10: Epiglottic Movement: complete inversion Component 11: Laryngeal Vestibular Closure - Height of the Swallow: incomplete, narrow column of contrast/air in laryngeal vestibule Component 12: Pharyngeal Stripping Wave: present - diminished Component 13: Pharyngeal Contraction (A/P view only): could not be determined due to logistical reasons not related to physiologic impairment Component 14: Pharyngoesophageal Segment Opening: partial distension/partial duration, partial obstruction of flow Component 15: Tongue Base Retraction: trace column of contrast/air between tongue base and posterior pharyngeal wall Component 16: Pharyngeal Residue: collection of residue within or on pharyngeal structures Esophageal Impairment: No MBSImP Overall Impression Scores Oral Impairment Total: 9 Pharyngeal Impairment Total: 9 Penetration/Aspiration Scale Penetration/Aspiration Scale Performed: Yes Level 0 Thin: Contrast entered the airway, passed below the vocal folds, and was not ejected from the airway despite effort Level 2 Mildly Thick: Contrast entered the airway, passed below the vocal folds, and no effort was made to eject, Contrast entered the airway, contacted the vocal folds, and was not ejected from the airway Level 3 Moderately Thick: Contrast entered the airway, contacted the vocal folds, and was not ejected from the airway, Contrast did not enter the airway (1: when using a chin tuck and spoon) Level 4 Pureed: Contrast did not enter the airway Level 6 Soft & Bite-Sized: Contrast did not enter the airway Regular: Contrast did not enter the airway Trialed Compensatory Strategies Strategies Utilized: Small sips/bites, Chin tuck, Double swallow Effective: Yes Pain Assessment Pain Assessment: No/denies pain Plan Diagnosis Code Swallowing: R13.12 Dysphagia, oropharyngeal phase Speech Therapy Care Plan Speech Therapy Care Plan (Active) Template: ST - Dysphagia Problem: Swallowing Dates: Start: 10/15/23 Disciplines: GEOLOGICAL AIDE Goal: LTG: Patient will maintain adequate nutrition/ hydration with optimum safety and efficiency of swallowing function of oral intake without overt signs/symptoms of aspiration for the highest appropriate diet level Dates: Start: 10/15/23 Expected End: 10/29/23 Disciplines: GEOLOGICAL AIDE Goal: STG: Patient will tolerate therapeutic feeding trials of advanced textures with 90% accuracy with minimal cueing Dates: Start: 10/15/23 Expected End: 10/29/23 Disciplines: GEOLOGICAL AIDE Goal: STG: Pt will participate in VFSS evaluation to further assess swallow efficiency and safe oral intake (Resolved) Dates: Start: 10/15/23 Expected End: 10/29/23 Resolved: 10/19/23 Disciplines: GEOLOGICAL AIDE Outcomes Date/Time User Outcome 10/19/23951 CHEPE Powers Completed Goal Note filed on 10/19/23951 by CHEPE Powers VFSS completed this date. See note for results. Goal: STG: Patient will complete safety strategies with minimal assistance during PO intake 90% of the time Dates: Start: 10/19/23 Expected End: 11/02/23 Disciplines: GEOLOGICAL AIDE Goal: STG: Patient will complete oral/ pharyngeal strengthening program with resistance with 90% accuracy with minimal cueing Dates: Start: 10/19/23 Expected End: 11/02/23 Disciplines: GEOLOGICAL AIDE Speech Therapy Care Plan (Resolved) There are no resolved problems. Principal Problem: Aspiration pneumonia of both lower lobes, unspecified aspiration pneumonia type ([facility]) Active Problems: Essential hypertension Diabetic autonomic neuropathy associated with type 2 diabetes mellitus ([facility]) Chronic obstructive pulmonary disease ([facility]) Mixed hyperlipidemia Metabolic encephalopathy Altered mental status [facility]03-04[facility] History of Present illness Narrative* Lashae Meyer RCP - 10/19/2023 8:11 AM EST Unable to complete aerosol breathing treatment, Akbar appears over medicated and confused. He kept removing nebulizer mask. Will attempt next round. * Alon Henry MD - 10/18/2023 5:17 PM EST Images from the original note were not included. [facility] MD Enmanuel Blunt MD Kaleem Gill, MD Sneha Kommoori, MD Dominic Lay, MD Caridad Gaitan, MD Jean Paul Ramirez, MD Milagro Wilde, MD Carrie Ng, NOTCH MACHINE OPERATOR Leila Graham, NOTCH MACHINE OPERATOR Mya Mireles, NOTCH MACHINE OPERATOR Coral Toscano, NOTCH MACHINE OPERATOR Jennifer Maloney, NOTCH MACHINE OPERATOR Joann Reyes, NOTCH MACHINE OPERATOR Cici Paintingt, NOTCH MACHINE OPERATOR Keyla Rowelldale, NOTCH MACHINE OPERATOR Miguel Jefferson, NOTCH MACHINE OPERATOR Patito Kiara, NOTCH MACHINE OPERATOR Amy Renay, NOTCH MACHINE OPERATOR Gely Wen, NOTCH MACHINE OPERATOR Jade Bridges, NOTCH MACHINE OPERATOR Manfred Baht, NOTCH MACHINE OPERATOR Magali Maday, NOTCH MACHINE OPERATOR Amy Michaela, [facility] Laura Sharma, NOTCH MACHINE OPERATOR Link Nathan, [facility] Hospital Medicine Progress Note Patient: Akbar Byrnes Date of : 1960 [facility] PCP: ROWDY OSWALD MD Admission date: 10/14/2023 9:49 PM Encounter date: 10/18/23 SUBJECTIVE Chief complaints: Chief Complaint Patient presents with Fatigue Interval History: Status: improved. No overnight events or new complaints. Mentation at baseline. Patient was able to shower today, requesting IV room moved. Patient wants to go home today. Explained to him this would not be possible. Review of Systems Review of Systems Constitutional: Positive for fatigue. Negative for activity change, appetite change, chills, diaphoresis and fever. HENT: Negative for tinnitus and trouble swallowing. Eyes: Negative for visual disturbance. Respiratory: Negative for cough, chest tightness, shortness of breath and wheezing. Cardiovascular: Negative for chest pain, palpitations and leg swelling. Gastrointestinal: Negative for abdominal pain, diarrhea, nausea and vomiting. Genitourinary: Negative for difficulty urinating. Skin: Negative for rash. Neurological: Negative for dizziness, syncope, speech difficulty, weakness, light-headedness, numbness and headaches. Psychiatric/Behavioral: Positive for confusion. Negative for agitation, behavioral problems and sleep disturbance. The patient is nervous/anxious. OBJECTIVE BP (!) 147/99 Pulse 88 Temp 37 C (98.6 F) (Oral) Resp 14 Ht 180.3 cm (5' 11 ) Wt 70.4 kg (155 lb 4.8 oz) SpO2 96% BMI 21.66 kg/m Intake/Output Summary (Last 24 hours) at 10/18/2023 1718 Last data filed at 10/18/2023 0800 Gross per 24 hour Intake 200.4 ml Output 1050 ml Net -849.6 ml Physical Exam Physical Exam Vitals and nursing note reviewed. Constitutional: General: He is not in acute distress. HENT: Head: Normocephalic and atraumatic. Right Ear: External ear normal. Left Ear: External ear normal. Nose: Nose normal. Mouth/Throat: Mouth: Mucous membranes are moist. Pharynx: Oropharynx is clear. Eyes: Extraocular Movements: Extraocular movements intact. Pupils: Pupils are equal, round, and reactive to light. Neck: Vascular: No carotid bruit or JVD. Cardiovascular: Rate and Rhythm: Normal rate and regular rhythm. Pulses: Normal pulses. Pulmonary: Effort: Pulmonary effort is normal. Breath sounds: Examination of the right-lower field reveals decreased breath sounds. Examination ofthe left-lower field reveals decreased breath sounds. Decreased breath sounds and rhonchi (Scattered rhonchi noted throughout lung wilson.) present. No rales. Abdominal: General: Bowel sounds are normal. Palpations: Abdomen is soft. Tenderness: There is no abdominal tenderness. There is no right CVA tenderness or left CVA tenderness. Musculoskeletal: Right lower leg: No edema. Left lower leg: No edema. Lymphadenopathy: Cervical: No cervical adenopathy. Skin: General: Skin is warm and dry. Capillary Refill: Capillary refill takes less than 2 seconds. Neurological: Mental Status: He is alert. He is confused. GCS: GCS eye subscore is 4. GCS verbal subscore is 4. GCS motor subscore is 6. Motor: Tremor present. Comments: Tremors noted to all extremities. Alert but confused. Psychiatric: Mood and Affect: Mood is anxious. Behavior: Behavior is agitated. Thought Content: Thought content normal. Judgment: Judgment normal. Medications Scheduled: ampicillin-sulbactam (UNASYN) IV, 3,000 mg, intravenous, Q6H aspirin, 81 mg, oral, Daily escitalopram, 5 mg, oral, Daily insulin lispro, 2-10 Units, subcutaneous, TID with meals insulin lispro, 2-8 Units, subcutaneous, Nightly ipratropium-albuteroL, 3 mL, nebulization, Q6H OLANZapine, 5 mg, oral, Nightly umeclidinium, 1 puff, inhalation, Daily Infusions: sodium chloride 0.9 %, 10 mL/hr, Last Rate: Stopped (10/17/23 0647) As Needed: acetaminophen alum-mag hydroxide-simeth bisacodyL dextrose dextrose 50 % in water (D50W) diphenhydrAMINE glucagon (human recombinant) haloperidol lactate hydrALAZINE magnesium sulfate magnesium sulfate ondansetron ODT potassium chloride in water sennosides-docusate sodium sodium chloride sodium chloride 0.9 % Allergies: Patient has no known allergies. Labs Recent Results (from the past 24 hour(s)) Bedside Glucose *Place/Obtain serum glucose if >500(>600 MRH) per glucometer. Collection Time: 10/17/23 10:03 PM Result Value Ref Range Bedside glucose 251 (H) 65 - 99 mg/dL Comprehensive metabolic panel Collection Time: 10/18/23 6:03 AM Result Value Ref Range Sodium 139 134 - 146 mmol/L Potassium, Bld 3.6 3.5 - 5.0 mmol/L Chloride 107 98 - 109 mmol/L CO2 23 22 - 32 mmol/L Anion gap 9 5 - 15 mmol/L BUN 24 5 - 27 mg/dL Creatinine 0.74 0.70 - 1.20 mg/dL Glucose 226 (H) 65 - 99 mg/dL Calcium 9.9 8.5 - 10.5 mg/dL Total Protein 7.2 6.0 - 8.0 g/dL Albumin 3.4 3.2 - 5.3 g/dL Alkaline Phosphatase 91 39 - 130 U/L AST 45 (H) 0 - 41 U/L ALT 76 (H) 0 - 40 U/L Total bilirubin 0.9 0.3 - 1.2 mg/dL eGFR (CKD-EPI)non-race dependent >90 >59 ml/min/1.73sq.m Magnesium Collection Time: 10/18/23 6:03 AM Result Value Ref Range Magnesium 1.9 1.8 - 2.6 mg/dL CBC auto differential Collection Time: 10/18/23 6:03 AM Result Value Ref Range White Blood Cells 6.2 4.0 - 11.0 X10E9/L RBC count 4.15 4.10 - 5.70 X10E12/L Hemoglobin 13.1 13.0 - 17.0 g/dL Hematocrit 38.4 (L) 39 - 49 % MCV 92 80 - 100 fL MCH 31.5 27 - 34 pg MCHC 34.1 32 - 36 g/dL RDW 14.2 11.5 - 15.0 % Platelets 245 150 - 450 X10E9/L MPV 9.1 7 - 12 fL % neutrophils 49.2 % % lymphocytes 30.1 % % monocytes 15.3 % % eosinophils 4.2 % % Basophils 1.2 % Neutrophils Absolute (A) 3.1 1.5 - 6.6 X10E9/L Lymphocytes Absolute 1.9 1.0 - 3.5 X10E9/L Monocytes Absolute 1.0 (H) 0 - 0.9 X10E9/L Eosinophils Absolute 0.3 0.0 - 0.4 X10E9/L Basophils Absolute 0.1 0.0 - 0.2 X10E9/L Bedside Glucose *Place/Obtain serum glucose if >500(>600 MRH) per glucometer. Collection Time: 10/18/23 7:50 AM Result Value Ref Range Bedside glucose 217 (H) 65 - 99 mg/dL Bedside Glucose *Place/Obtain serum glucose if >500(>600 MRH) per glucometer. Collection Time: 10/18/23 11:31 AM Result Value Ref Range Bedside glucose 264 (H) 65 - 99 mg/dL Radiology Echo limited W/O contrast Result Date: 10/16/2023 Narrative: Left Ventricle: Systolic function is normal with an ejection fraction of 55-60%. Pericardium: There is no pericardial effusion. Limited study with limited Doppler. Technically difficult study MR brain without contrast Result Date: 10/16/2023 Narrative: EXAM:MR BRAIN WO CONT INDICATION: Mental status change, unknown cause COMPARISON: 10/26/2022 TECHNIQUE: Axial diffusion sequences (be 0, 1000, and ADC map) BRAIN FINDINGS: Brain Parenchyma:No diffusion signal abnormality is appreciated to suggest acute infarct. No definite evidence of large parenchymal or extra-axial hemorrhage within the limited sequences provided. No definite mass, mass effect, or midline shift. No diffusion signal abnormality along the calvarium or extra cranial soft tissues. IMPRESSION: No evidence of acute infarct. Limited sequences demonstrate no additional abnormalities. Finalized by Fermin Flowers on 10/16/2023 10:[address] brain without contrast Result Date: 10/14/2023 Narrative: CT BRAIN WITHOUT CONTRAST COMPARISON: 11/15/2022 HISTORY: Transient alteration of awareness. TECHNIQUE: Unenhanced axial images of the brain were obtained. Automatic exposure control (AEC) was utilized. FINDINGS: There is no evidence for acute intracranial hemorrhage. Previously seen left subdural fluid collection has resolved. There is no hydrocephalus, mass effect, or midline shift. Jones-white differentiation is preserved with no CT evidence for an acute infarct. 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 There are multifocal areas of low-attenuation throughout the periventricular and subcortical white matter of both cerebral hemispheres which are nonspecific, but are most likely sequela of chronic small vessel ischemia. No acute fracture. IMPRESSION: No evidence for an acute intracranial process. Chronic changes detailed above. All CT scans at this facility use dose modulation, iterative reconstruction, and/or weight based dosing when appropriate to reduce radiation dose to as low as reasonably achievable. Finalized by Deo Harrison MD on 10/14/2023 11:44 PM X-ray chest 1 view Result Date: 10/14/2023 Narrative: CHEST ONE VIEW COMPARISON: 11/10/2022 HISTORY: Rales over R lower chest, altered mental status. FINDINGS: Portable AP chest radiograph demonstrates interstitial and ill-defined airspace opacities at both lung bases with more focal opacity at the lateral left lung base. The cardiomediastinal silhouette and pulmonary vasculature are within normal limits. No evidence for a pneumothorax or pleural effusion. IMPRESSION: Interstitial and ill-defined airspace spaces of both lung bases with more focal nodular opacity lateral left lung base. Findings most likely sequelae of multifocal pneumonia or aspiration. Short-term follow-up PA and lateral chest radiographs in 6-8 weeks after appropriate therapy recommended to ensure resolution of the airspace opacities. Finalized by Deo Harrison MD on 10/14/2023 11:22 PM HOSPITAL PROBLEM LIST Principal Problem: Aspiration pneumonia of both lower lobes, unspecified aspiration pneumonia type (CMS-HCC) Active Problems: Essential hypertension Diabetic autonomic neuropathy associated with type 2 diabetes mellitus (CMS-HCC) Chronic obstructive pulmonary disease ([facility]) Mixed hyperlipidemia Metabolic encephalopathy Altered mental status ASSESSMENT & PLAN Aspiration pneumonia: Unasyn. DuoNebs as needed. O2 as needed. Not requiring any oxygen. Speech therapy consult. Failed swallow study. No liquids but can use pureed diet. Pureed diet ordered. Fluoroscopy swallow study if able. May do swallow study as outpatient. Essential hypertension: Unable to take p.o. at this time. IV hydralazine as needed. Dm 2: Monitor blood glucose a.c. and HS cover sliding scale insulin. COPD: No acute exacerbation. Continue home inhalers. Hyperlipidemia: NPO at this time. Hold statin. Will restart when patient able to take oral medications again. Metabolic encephalopathy/altered mental status: Unsure of baseline. Patient is awake but not answering questions correctly. Anxiety/agitation: Baseline. Continue Ativan IV p.r.n. for anxiety/agitation. Tele sitter in the room. Baseline tremors: Supportive care. DVT px: EPC. No pharmacological intervention secondary to history of subdural hematomas. DC planning: Discharge to halfway facility when approval by insurance. Patient will need CRF for PT/OT/RN/ST. Will also need order for outpatient fluoroscopy swallow study. Miguel Paulino, COMPLIANCE NURSE-NOTCH MACHINE OPERATOR, 10/18/2023 5:18 PM [facility] 7AM-7PM: Message rounding EDGAR in [employer] or page through [employer]. 7PM-7AM: Page on-call EDGAR through our [employer] formerly [employer] service, . * Alon Henry MD - 10/17/2023 7:56 PM EST Images from the original note were not included. [facility] MD Enmanuel Blunt MD Kaleem Gill, MD Sneha Kommoori, MD Dominic Lay, MD Caridad Gaitan, MD Jean Paul Ramirez, MD Milagro Wilde, MD Carrie Ng, NOTCH MACHINE OPERATOR Leila Graham, NOTCH MACHINE OPERATOR Mya Mireles, NOTCH MACHINE OPERATOR Coral Toscano, NOTCH MACHINE OPERATOR Jennifer Francisber, NOTCH MACHINE OPERATOR Joannangelito Reyes, NOTCH MACHINE OPERATOR Cici Graves, NOTCH MACHINE OPERATOR Keyla Robbins, NOTCH MACHINE OPERATOR Miguel Paulino, NOTCH MACHINE OPERATOR Patito Craig, NOTCH MACHINE OPERATOR Amy Niño, NOTCH MACHINE OPERATOR Gely Carver, NOTCH MACHINE OPERATOR Jade Bridges, NOTCH MACHINE OPERATOR marce Rangelcory, NOTCH MACHINE OPERATOR Magali Maday, NOTCH MACHINE OPERATOR Amy Jennings, NOTCH MACHINE OPERATOR Laura Sharma, NOTCH MACHINE OPERATOR Link Nathan, NOTCH MACHINE OPERATOR Hospital Medicine Progress Note Patient: Akbar Byrnes Date of : 1960 Room: 215/01 PCP: ROWDY OSWALD MD Admission date: 10/14/2023 9:49 PM Encounter date: 10/17/23 SUBJECTIVE Chief complaints: Chief Complaint Patient presents with Fatigue Interval History: Status: improved. No overnight events or new complaints. Mentation at baseline. Sitting comfortably in chair, wanting to shower, likely able to return to care home once certification approved Review of Systems Review of Systems Constitutional: Positive for fatigue. Negative for activity change, appetite change, chills, diaphoresis and fever. HENT: Negative for tinnitus and trouble swallowing. Eyes: Negative for visual disturbance. Respiratory: Negative for cough, chest tightness, shortness of breath and wheezing. Cardiovascular: Negative for chest pain, palpitations and leg swelling. Gastrointestinal: Negative for abdominal pain, diarrhea, nausea and vomiting. Genitourinary: Negative for difficulty urinating. Skin: Negative for rash. Neurological: Negative for dizziness, syncope, speech difficulty, weakness, light-headedness, numbness and headaches. Psychiatric/Behavioral: Positive for confusion. Negative for agitation, behavioral problems and sleep disturbance. The patient is nervous/anxious. OBJECTIVE BP (S) (!) 174/107 Pulse 90 Temp 36.3 C (97.4 F) (Oral) Resp 19 Ht 180.3 cm (5' 11 ) Wt 72.8 kg (160 lb 8 oz) SpO2 97% BMI 22.39 kg/m Intake/Output Summary (Last 24 hours) at 10/17/20231955 Last data filed at 10/17/2023 0800 Gross per 24 hour Intake 641.39 ml Output 750 ml Net -108.61 ml Physical Exam Physical Exam Vitals and nursing note reviewed. Constitutional: General: He is not in acute distress. HENT: Head: Normocephalic and atraumatic. Right Ear: External ear normal. Left Ear: External ear normal. Nose: Nose normal. Mouth/Throat: Mouth: Mucous membranes are moist. Pharynx: Oropharynx is clear. Eyes: Extraocular Movements: Extraocular movements intact. Pupils: Pupils are equal, round, and reactive to light. Neck: Vascular: No carotid bruit or JVD. Cardiovascular: Rate and Rhythm: Normal rate and regular rhythm. Pulses: Normal pulses. Pulmonary: Effort: Pulmonary effort is normal. Breath sounds: Examination of the right-lower field reveals decreased breath sounds. Examination ofthe left-lower field reveals decreased breath sounds. Decreased breath sounds and rhonchi (Scattered rhonchi noted throughout lung wilson.) present. No rales. Abdominal: General: Bowel sounds are normal. Palpations: Abdomen is soft. Tenderness: There is no abdominal tenderness. There is no right CVA tenderness or left CVA tenderness. Musculoskeletal: Right lower leg: No edema. Left lower leg: No edema. Lymphadenopathy: Cervical: No cervical adenopathy. Skin: General: Skin is warm and dry. Capillary Refill: Capillary refill takes less than 2 seconds. Neurological: Mental Status: He is alert. He is confused. GCS: GCS eye subscore is 4. GCS verbal subscore is 4. GCS motor subscore is 6. Motor: Tremor present. Comments: Tremors noted to all extremities. Alert but confused. Psychiatric: Mood and Affect: Mood is anxious. Behavior: Behavior is agitated. Thought Content: Thought content normal. Judgment: Judgment normal. Medications Scheduled: ampicillin-sulbactam (UNASYN) IV, 3,000 mg, intravenous, Q6H aspirin, 81 mg, oral, Daily escitalopram, 5 mg, oral, Daily insulin lispro, 2-10 Units, subcutaneous, TID with meals insulin lispro, 2-8 Units, subcutaneous, Nightly ipratropium-albuteroL, 3 mL, nebulization, Q6H OLANZapine, 5 mg, oral, Nightly umeclidinium, 1 puff, inhalation, Daily Infusions: sodium chloride 0.9 %, 10 mL/hr, Last Rate: 10 mL/hr (10/17/23 0606) As Needed: acetaminophen alum-mag hydroxide-simeth bisacodyL dextrose dextrose 50 % in water (D50W) diphenhydrAMINE glucagon (human recombinant) haloperidol lactate hydrALAZINE magnesium sulfate magnesium sulfate ondansetron ODT potassium chloride in water sennosides-docusate sodium sodium chloride sodium chloride 0.9 % Allergies: Patient has no known allergies. Labs Recent Results (from the past 24 hour(s)) Bedside Glucose *Place/Obtain serum glucose if >500(>600 MRH) per glucometer. Collection Time: 10/16/23 9:02 PM Result Value Ref Range Bedside glucose 175 (H) 65 - 99 mg/dL Comprehensive metabolic panel Collection Time: 10/17/23 5:00 AM Result Value Ref Range Sodium 139 134 - 146 mmol/L Potassium, Bld 3.5 3.5 - 5.0 mmol/L Chloride 107 98 - 109 mmol/L CO2 23 22 - 32 mmol/L Anion gap 9 5 - 15 mmol/L BUN 24 5 - 27 mg/dL Creatinine 0.76 0.70 - 1.20 mg/dL Glucose 153 (H) 65 - 99 mg/dL Calcium 9.8 8.5 - 10.5 mg/dL Total Protein 6.9 6.0 - 8.0 g/dL Albumin 3.1 (L) 3.2 - 5.3 g/dL Alkaline Phosphatase 87 39 - 130 U/L AST 41 0 - 41 U/L ALT 71 (H) 0 - 40 U/L Total bilirubin 0.9 0.3 - 1.2 mg/dL eGFR (CKD-EPI)non-race dependent >90 >59 ml/min/1.73sq.m Magnesium Collection Time: 10/17/23 5:00 AM Result Value Ref Range Magnesium 1.8 1.8 - 2.6 mg/dL CBC auto differential Collection Time: 10/17/23 5:00 AM Result Value Ref Range White Blood Cells 6.0 4.0 - 11.0 X10E9/L RBC count 4.20 4.10 - 5.70 X10E12/L Hemoglobin 13.2 13.0 - 17.0 g/dL Hematocrit 38.6 (L) 39 - 49 % MCV 92 80 - 100 fL MCH 31.4 27 - 34 pg MCHC 34.2 32 - 36 g/dL RDW 14.3 11.5 - 15.0 % Platelets 244 150 - 450 X10E9/L MPV 8.8 7 - 12 fL % neutrophils 53.3 % % lymphocytes 24.4 % % monocytes 16.9 % % eosinophils 4.4 % % Basophils 1.0 % Neutrophils Absolute (A) 3.2 1.5 - 6.6 X10E9/L Lymphocytes Absolute 1.5 1.0 - 3.5 X10E9/L Monocytes Absolute 1.0 (H) 0 - 0.9 X10E9/L Eosinophils Absolute 0.3 0.0 - 0.4 X10E9/L Basophils Absolute 0.1 0.0 - 0.2 X10E9/L Bedside Glucose *Place/Obtain serum glucose if >500(>600 MRH) per glucometer. Collection Time: 10/17/23 8:26 AM Result Value Ref Range Bedside glucose 124 (H) 65 - 99 mg/dL Bedside Glucose *Place/Obtain serum glucose if >500(>600 MRH) per glucometer. Collection Time: 10/17/23 11:45 AM Result Value Ref Range Bedside glucose 207 (H) 65 - 99 mg/dL Bedside Glucose *Place/Obtain serum glucose if >500(>600 MRH) per glucometer. Collection Time: 10/17/23 5:01 PM Result Value Ref Range Bedside glucose 218 (H) 65 - 99 mg/dL Radiology Echo limited W/O contrast Result Date: 10/16/2023 Narrative: Left Ventricle: Systolic function is normal with an ejection fraction of 55-60%. Pericardium: There is no pericardial effusion. Limited study with limited Doppler. Technically difficult study MR brain without contrast Result Date: 10/16/2023 Narrative: EXAM:MR BRAIN WO CONT INDICATION: Mental status change, unknown cause COMPARISON: 10/26/2022 TECHNIQUE: Axial diffusion sequences (be 0, 1000, and ADC map) BRAIN FINDINGS: Brain Parenchyma:No diffusion signal abnormality is appreciated to suggest acute infarct. No definite evidence of large parenchymal or extra-axial hemorrhage within the limited sequences provided. No definite mass, mass effect, or midline shift. No diffusion signal abnormality along the calvarium or extra cranial soft tissues. IMPRESSION: No evidence of acute infarct. Limited sequences demonstrate no additional abnormalities. Finalized by Fermin Flowers on 10/16/2023 10:[address] brain without contrast Result Date: 10/14/2023 Narrative: CT BRAIN WITHOUT CONTRAST COMPARISON: 11/15/2022 HISTORY: Transient alteration of awareness. TECHNIQUE: Unenhanced axial images of the brain were obtained. Automatic exposure control (AEC) was utilized. FINDINGS: There is no evidence for acute intracranial hemorrhage. Previously seen left subdural fluid collection has resolved. There is no hydrocephalus, mass effect, or midline shift. Jones-white differentiation is preserved with no CT evidence for an acute infarct. 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 There are multifocal areas of low-attenuation throughout the periventricular and subcortical white matter of both cerebral hemispheres which are nonspecific, but are most likely sequela of chronic small vessel ischemia. No acute fracture. IMPRESSION: No evidence for an acute intracranial process. Chronic changes detailed above. All CT scans at this facility use dose modulation, iterative reconstruction, and/or weight based dosing when appropriate to reduce radiation dose to as low as reasonably achievable. Finalized by Deo Harrison MD on 10/14/2023 11:44 PM X-ray chest 1 view Result Date: 10/14/2023 Narrative: CHEST ONE VIEW COMPARISON: 11/10/2022 HISTORY: Rales over R lower chest, altered mental status. FINDINGS: Portable AP chest radiograph demonstrates interstitial and ill-defined airspace opacities at both lung bases with more focal opacity at the lateral left lung base. The cardiomediastinal silhouette and pulmonary vasculature are within normal limits. No evidence for a pneumothorax or pleural effusion. IMPRESSION: Interstitial and ill-defined airspace spaces of both lung bases with more focal nodular opacity lateral left lung base. Findings most likely sequelae of multifocal pneumonia or aspiration. Short-term follow-up PA and lateral chest radiographs in 6-8 weeks after appropriate therapy recommended to ensure resolution of the airspace opacities. Finalized by Deo Harrison MD on 10/14/2023 11:22 PM HOSPITAL PROBLEM LIST Principal Problem: Aspiration pneumonia of both lower lobes, unspecified aspiration pneumonia type (CMS-HCC) Active Problems: Essential hypertension Diabetic autonomic neuropathy associated with type 2 diabetes mellitus (CMS-HCC) Chronic obstructive pulmonary disease (CMS-HCC) Mixed hyperlipidemia Metabolic encephalopathy Altered mental status ASSESSMENT & PLAN Aspiration pneumonia: Unasyn. DuoNebs as needed. O2 as needed. Not requiring any oxygen. Speech therapy consult. Failed swallow study. No liquids but can use pureed diet. Pureed diet ordered. Fluoroscopy swallow study if able. May do swallow study as outpatient. Essential hypertension: Unable to take p.o. at this time. IV hydralazine as needed. Dm 2: Monitor blood glucose a.c. and HS cover sliding scale insulin. COPD: No acute exacerbation. Continue home inhalers. Hyperlipidemia: NPO at this time. Hold statin. Will restart when patient able to take oral medications again. Metabolic encephalopathy/altered mental status: Unsure of baseline. Patient is awake but not answering questions correctly. Anxiety/agitation: Baseline. Continue Ativan IV p.r.n. for anxiety/agitation. Tele sitter in the room. Baseline tremors: Supportive care. DVT px: EPC. No pharmacological intervention secondary to history of subdural hematomas. DC planning: Discharge to halfway facility when approval by insurance. Patient will need CRF for PT/OT/RN/ST. Will also need order for outpatient fluoroscopy swallow study. Miguel Paulino, [facility], 10/17/2023 7:56 PM [facility] 7AM-7PM: Message rounding EDGAR in [employer] or page through [employer]. 7PM-7AM: Page on-call EDGAR through our [employer], . * Alon Henry MD - 10/16/2023 4:28 PM EST Images from the original note were not included. [facility] MD Enmanuel Blunt, MD Jay Evans, MD Velma Rhodes, MD Dominic Lay, MD Caridad Gaitan, MD Jean Paul Ramirez, MD Milagro Wilde, MD Carrie Ng, NOTCH MACHINE OPERATOR Leila Graham, NOTCH MACHINE OPERATOR Mya Mireles, NOTCH MACHINE OPERATOR Coral Toscano, NOTCH MACHINE OPERATOR Jennifer Maloney, NOTCH MACHINE OPERATOR Joann Reyes, NOTCH MACHINE OPERATOR Cici Graves, NOTCH MACHINE OPERATOR Keyla Robbins, NOTCH MACHINE OPERATOR iMguel Paulino, NOTCH MACHINE OPERATOR Patito Craig, NOTCH MACHINE OPERATOR Amy Niño, NOTCH MACHINE OPERATOR Gely Carver, NOTCH MACHINE OPERATOR Jade Bridges, NOTCH MACHINE OPERATOR Manfred Bhat, NOTCH MACHINE OPERATOR Magali Nassar, NOTCH MACHINE OPERATOR Amy Jennings, NOTCH MACHINE OPERATOR Laura Sharma, NOTCH MACHINE OPERATOR Link Nathan, NOTCH MACHINE OPERATOR Hospital Medicine Progress Note Patient: Akbar Byrnes Date of : 1960 Room: [facility]/01 PCP: ROWDY OSWALD MD Admission date: 10/14/2023 9:49 PM Encounter date: 10/16/23 SUBJECTIVE Chief complaints: Chief Complaint Patient presents with Fatigue Interval History: Status: improved. No overnight events or new complaints. Mentation at baseline. Likely able to return to nursing facility if not labored today tomorrow. Awaiting insurance authorization. Review of Systems Review of Systems Constitutional: Positive for fatigue. Negative for activity change, appetite change, chills, diaphoresis and fever. HENT: Negative for tinnitus and trouble swallowing. Eyes: Negative for visual disturbance. Respiratory: Negative for cough, chest tightness, shortness of breath and wheezing. Cardiovascular: Negative for chest pain, palpitations and leg swelling. Gastrointestinal: Negative for abdominal pain, diarrhea, nausea and vomiting. Genitourinary: Negative for difficulty urinating. Skin: Negative for rash. Neurological: Negative for dizziness, syncope, speech difficulty, weakness, light-headedness, numbness and headaches. Psychiatric/Behavioral: Positive for confusion. Negative for agitation, behavioral problems and sleep disturbance. The patient is nervous/anxious. OBJECTIVE BP (!) 160/91 Pulse 94 Temp 36.1 C (97 F) (Axillary) Resp 18 Ht 180.3 cm (5' 11 ) Wt 75.2kg (165 lb 12.8 oz) SpO2 97% BMI 23.12 kg/m Intake/Output Summary (Last 24 hours) at 10/16/2023 1628 Last data filed at 10/16/2023 0700 Gross per 24 hour Intake 324 ml Output 2825 ml Net -2501 ml Physical Exam Physical Exam Vitals and nursing note reviewed. Constitutional: General: He is not in acute distress. HENT: Head: Normocephalic and atraumatic. Right Ear: External ear normal. Left Ear: External ear normal. Nose: Nose normal. Mouth/Throat: Mouth: Mucous membranes are moist. Pharynx: Oropharynx is clear. Eyes: Extraocular Movements: Extraocular movements intact. Pupils: Pupils are equal, round, and reactive to light. Neck: Vascular: No carotid bruit or JVD. Cardiovascular: Rate and Rhythm: Normal rate and regular rhythm. Pulses: Normal pulses. Pulmonary: Effort: Pulmonary effort is normal. Breath sounds: Examination of the right-lower field reveals decreased breath sounds. Examination ofthe left-lower field reveals decreased breath sounds. Decreased breath sounds and rhonchi (Scattered rhonchi noted throughout lung wilson.) present. No rales. Abdominal: General: Bowel sounds are normal. Palpations: Abdomen is soft. Tenderness: There is no abdominal tenderness. There is no right CVA tenderness or left CVA tenderness. Musculoskeletal: Right lower leg: No edema. Left lower leg: No edema. Lymphadenopathy: Cervical: No cervical adenopathy. Skin: General: Skin is warm and dry. Capillary Refill: Capillary refill takes less than 2 seconds. Neurological: Mental Status: He is alert. He is confused. GCS: GCS eye subscore is 4. GCS verbal subscore is 4. GCS motor subscore is 6. Motor: Tremor present. Comments: Tremors noted to all extremities. Alert but confused. Psychiatric: Mood and Affect: Mood is anxious. Behavior: Behavior is agitated. Thought Content: Thought content normal. Judgment: Judgment normal. Medications Scheduled: ampicillin-sulbactam (UNASYN) IV, 3,000 mg, intravenous, Q6H aspirin, 81 mg, oral, Daily escitalopram, 5 mg, oral, Daily insulin lispro, 2-10 Units, subcutaneous, TID with meals insulin lispro, 2-8 Units, subcutaneous, Nightly OLANZapine, 5 mg, oral, Nightly umeclidinium, 1 puff, inhalation, Daily Infusions: sodium chloride 0.9 %, 10 mL/hr, Last Rate: 10 mL/hr (10/15/23 0523) As Needed: acetaminophen alum-mag hydroxide-simeth bisacodyL dextrose dextrose 50 % in water (D50W) diphenhydrAMINE glucagon (human recombinant) haloperidol lactate hydrALAZINE magnesium sulfate magnesium sulfate ondansetron ODT potassium chloride in water sennosides-docusate sodium sodium chloride sodium chloride 0.9 % Allergies: Patient has no known allergies. Labs Recent Results (from the past 24 hour(s)) Bedside Glucose *Place/Obtain serum glucose if >500(>600 MRH) per glucometer. Collection Time: 10/15/23 9:04 PM Result Value Ref Range Bedside glucose 150 (H) 65 - 99 mg/dL Comprehensive metabolic panel Collection Time: 10/16/23 4:50 AM Result Value Ref Range Sodium 137 134 - 146 mmol/L Potassium, Bld 3.9 3.5 - 5.0 mmol/L Chloride 106 98 - 109 mmol/L CO2 22 22 - 32 mmol/L Anion gap 9 5 - 15 mmol/L BUN 24 5 - 27 mg/dL Creatinine 0.71 0.70 - 1.20 mg/dL Glucose 180 (H) 65 - 99 mg/dL Calcium 10.1 8.5 - 10.5 mg/dL Total Protein 7.2 6.0 - 8.0 g/dL Albumin 3.3 3.2 - 5.3 g/dL Alkaline Phosphatase 93 39 - 130 U/L AST 46 (H) 0 - 41 U/L ALT 81 (H) 0 - 40 U/L Total bilirubin 0.9 0.3 - 1.2 mg/dL eGFR (CKD-EPI)non-race dependent >90 >59 ml/min/1.73sq.m Magnesium Collection Time: 10/16/23 4:50 AM Result Value Ref Range Magnesium 1.8 1.8 - 2.6 mg/dL CBC auto differential Collection Time: 10/16/23 4:50 AM Result Value Ref Range White Blood Cells 8.1 4.0 - 11.0 X10E9/L RBC count 4.22 4.10 - 5.70 X10E12/L Hemoglobin 13.4 13.0 - 17.0 g/dL Hematocrit 38.9 (L) 39 - 49 % MCV 92 80 - 100 fL MCH 31.7 27 - 34 pg MCHC 34.5 32 - 36 g/dL RDW 14.3 11.5 - 15.0 % Platelets 247 150 - 450 X10E9/L MPV 8.7 7 - 12 fL % neutrophils 65.4 % % lymphocytes 19.8 % % monocytes 12.2 % % eosinophils 1.5 % % Basophils 1.1 % Neutrophils Absolute (A) 5.3 1.5 - 6.6 X10E9/L Lymphocytes Absolute 1.6 1.0 - 3.5 X10E9/L Monocytes Absolute 1.0 (H) 0 - 0.9 X10E9/L Eosinophils Absolute 0.1 0.0 - 0.4 X10E9/L Basophils Absolute 0.1 0.0 - 0.2 X10E9/L Bedside Glucose *Place/Obtain serum glucose if >500(>600 MRH) per glucometer. Collection Time: 10/16/23 7:43 AM Result Value Ref Range Bedside glucose 144 (H) 65 - 99 mg/dL Bedside Glucose *Place/Obtain serum glucose if >500(>600 MRH) per glucometer. Collection Time: 10/16/23 12:11 PM Result Value Ref Range Bedside glucose 206 (H) 65 - 99 mg/dL Radiology Echo limited W/O contrast Result Date: 10/16/2023 Narrative: Left Ventricle: Systolic function is normal with an ejection fraction of 55-60%. Pericardium: There is no pericardial effusion. Limited study with limited Doppler. Technically difficult study MR brain without contrast Result Date: 10/16/2023 Narrative: EXAM:MR BRAIN WO CONT INDICATION: Mental status change, unknown cause COMPARISON: 10/26/2022 TECHNIQUE: Axial diffusion sequences (be 0, 1000, and ADC map) BRAIN FINDINGS: Brain Parenchyma:No diffusion signal abnormality is appreciated to suggest acute infarct. No definite evidence of large parenchymal or extra-axial hemorrhage within the limited sequences provided. No definite mass, mass effect, or midline shift. No diffusion signal abnormality along the calvarium or extra cranial soft tissues. IMPRESSION: No evidence of acute infarct. Limited sequences demonstrate no additional abnormalities. Finalized by Fermin Flowers on 10/16/2023 10:[address] brain without contrast Result Date: 10/14/2023 Narrative: CT BRAIN WITHOUT CONTRAST COMPARISON: 11/15/2022 HISTORY: Transient alteration of awareness. TECHNIQUE: Unenhanced axial images of the brain were obtained. Automatic exposure control (AEC) was utilized. FINDINGS: There is no evidence for acute intracranial hemorrhage. Previously seen left subdural fluid collection has resolved. There is no hydrocephalus, mass effect, or midline shift. Jones-white differentiation is preserved with no CT evidence for an acute infarct. 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 There are multifocal areas of low-attenuation throughout the periventricular and subcortical white matter of both cerebral hemispheres which are nonspecific, but are most likely sequela of chronic small vessel ischemia. No acute fracture. IMPRESSION: No evidence for an acute intracranial process. Chronic changes detailed above. All CT scans at this facility use dose modulation, iterative reconstruction, and/or weight based dosing when appropriate to reduce radiation dose to as low as reasonably achievable. Finalized by Deo Harrison MD on 10/14/2023 11:44 PM X-ray chest 1 view Result Date: 10/14/2023 Narrative: CHEST ONE VIEW COMPARISON: 11/10/2022 HISTORY: Rales over R lower chest, altered mental status. FINDINGS: Portable AP chest radiograph demonstrates interstitial and ill-defined airspace opacities at both lung bases with more focal opacity at the lateral left lung base. The cardiomediastinal silhouette and pulmonary vasculature are within normal limits. No evidence for a pneumothorax or pleural effusion. IMPRESSION: Interstitial and ill-defined airspace spaces of both lung bases with more focal nodular opacity lateral left lung base. Findings most likely sequelae of multifocal pneumonia or aspiration. Short-term follow-up PA and lateral chest radiographs in 6-8 weeks after appropriate therapy recommended to ensure resolution of the airspace opacities. Finalized by Deo Harrison MD on 10/14/2023 11:22 PM HOSPITAL PROBLEM LIST Principal Problem: Aspiration pneumonia of both lower lobes, unspecified aspiration pneumonia type ([facility]) Active Problems: Essential hypertension Diabetic autonomic neuropathy associated with type 2 diabetes mellitus ([facility]) Chronic obstructive pulmonary disease ([facility]) Mixed hyperlipidemia Metabolic encephalopathy Altered mental status ASSESSMENT & PLAN Aspiration pneumonia: Unasyn. DuoNebs as needed. O2 as needed. Not requiring any oxygen. Speech therapy consult. Failed swallow study. No liquids but can use pureed diet. Pureed diet ordered. Fluoroscopy swallow study if able. May do swallow study as outpatient. Essential hypertension: Unable to take p.o. at this time. IV hydralazine as needed. Dm 2: Monitor blood glucose a.c. and HS cover sliding scale insulin. COPD: No acute exacerbation. Continue home inhalers. Hyperlipidemia: NPO at this time. Hold statin. Will restart when patient able to take oral medications again. Metabolic encephalopathy/altered mental status: Unsure of baseline. Patient is awake but not answering questions correctly. Anxiety/agitation: Baseline. Continue Ativan IV p.r.n. for anxiety/agitation. Tele sitter in the room. Baseline tremors: Supportive care. DVT px: EPC. No pharmacological intervention secondary to history of subdural hematomas. DC planning: Discharge to halfway facility when approval by insurance. Patient will need CRF for PT/OT/RN/ST. Will also need order for outpatient fluoroscopy swallow study. Miguel Paulino, FIONA-NOTCH MACHINE OPERATOR, 10/16/2023 4:28 PM [facility] [place] [facility] - [facility] 7AM-7PM: Message rounding EDGAR in [employer] or page through [employer]. 7PM-7AM: Page on-call EDGAR through our [employer] formerly [employer] service, . Physician Attestation: I have reviewed the above note authored by the Advance Practice Provider (EDGAR) including history, review of systems, physical examination, medical decision making and agree with the assessment & plan. I have personally performed a face to face diagnostic evaluation on this patient. I have reviewed all laboratory findings and imaging reports/films. I have independently evaluated the patient and repeated cueva portions of the physical exam. I agree with the EDGAR plan as above, unless otherwise noted. ALON HENRY MD [facility] Plan of care note * Plan of Care - Lashae Meyer OFFICE MACHINE SERVICER - 10/19/2023 8:10 AM EST Problem: Inadequate Airway Clearance Goal: Patient will maintain patent airway Description: INTERVENTIONS 1. Assess and monitor breath sounds, cough and sputum (if present) 2. Monitor respiratory rate and oxygen saturation 3. Collaborate with respiratory therapy to administer medication, oxygen, and suitable airway clearance techniques as ordered 4. Position patient for maximum ventilatory efficiency; elevate head of bed at least 30 degrees if appropriate 5. Provide adequate fluid intake to liquify secretions if appropriate 6. Suction secretions as indicated to maintain patent airway 7. Instruct patient to turn, cough, and deep breathe; encourage incentive spirometer if indicated Note: Evaluation of progress towards goal: 10/19/23 0758 Vital Signs Pulse 83 Heart Rate Source Pulse Ox Resp 18 SpO2 95 % Respiratory Assessment Assessment Type (S) Assess only (pt confussed, pulled tx of twice) Level of Consciousness Confusion Respiratory Pattern Regular Chest Assessment Chest expansion symmetrical Bilateral Breath Sounds Clear;Diminished Location Specific No [facility] Plan of care note* Plan of Care - Amy Teran RN - 10/19/2023 7:54 AM EST Problem: Safety Goal: Patient will be injury free during hospitalization Description: INTERVENTIONS: 1. Assess patient's risk for falls and implement fall prevention plan of care per policy 2. Provide and maintain a safe environment 3. Proper use of double Identifiers 4. Medication administration using the 5 rights 5. Hand hygiene 6. Specimens are labeled at the bedside 7. Instruct patient/ patient brand representative about use of safety devices 8. Include patient/ patient brand representative in decisions related to safety Outcome: Progressing Note: Evaluation of progress towards goal: Pt remains free from falls or accidental injury during stay. Fall prevention measures in place. Hourly rounding per RN and NA maintained. [facility] Plan of care note* Plan of Care - Xiomara Medina RN - 10/19/2023 5:48 AM EST Problem: Safety Goal: Patient will be injury free during hospitalization Description: INTERVENTIONS: 1. Assess patient's risk for falls and implement fall prevention plan of care per policy 2. Provide and maintain a safe environment 3. Proper use of double Identifiers 4. Medication administration using the 5 rights 5. Hand hygiene 6. Specimens are labeled at the bedside 7. Instruct patient/ patient brand representative about use of safety devices 8. Include patient/ patient brand representative in decisions related to safety Outcome: Progressing Note: Evaluation of progress towards goal: Able to ambulate In and Out of the bed this time independentlywith walker. No injury/ trauma/ fall. Hourly rounds completed. Problem: Neurosensory - Adult Goal: Achieves stable or improved neurological status Description: Patient's goal is: INTERVENTIONS 1. Assess for and report changes in neurological status 2. Initiate measures to prevent increased intracranial pressure 3. Maintain blood pressure and fluid volume within ordered parameters to optimize cerebral perfusion and minimize risk of hemorrhage 4. Monitor temperature, glucose, and sodium. Initiate appropriate interventions as ordered Outcome: Progressing Note: Evaluation of progress towards goal: GCS - 15, alert this time, follows command at most part, RN sitter transitioned to virtual sitter. Problem: Respiratory - Adult Goal: Achieves optimal ventilation and oxygenation Description: Patient's goal is: INTERVENTIONS: 1. Assess for changes in respiratory status 2. Assess for changes in mentation and behavior 3. Position to facilitate oxygenation and minimize respiratory effort 4. Oxygen supplementation based on oxygen saturation or ABGs as ordered 5. Consult smoking cessation as indicated 6. Encourage broncho-pulmonary hygiene including cough, deep breathe, Incentive Spirometry, keep HOB elevated as tolerated, and encourage ambulation, as ordered 7. Assess the need for suctioning and obtain order to maintain clear airway 8. Assess and instruct patient to report SOB or any respiratory difficulty 9. Assess the need for Respiratory Therapy support if not already ordered 10. Initiate emergency measures for respiratory failure Outcome: Progressing Note: Evaluation of progress towards goal: Currently on room air , breath sounds clear/ diminished, SpO2 - 96%, not in respiratory distress. [facility] Plan of care note* Plan of Care - Sindi Cope RCP - 10/18/2023 7:19 PM EST Problem: Inadequate Airway Clearance Goal: Patient will maintain patent airway Description: INTERVENTIONS 1. Assess and monitor breath sounds, cough and sputum (if present) 2. Monitor respiratory rate and oxygen saturation 3. Collaborate with respiratory therapy to administer medication, oxygen, and suitable airway clearance techniques as ordered 4. Position patient for maximum ventilatory efficiency; elevate head of bed at least 30 degrees if appropriate 5. Provide adequate fluid intake to liquify secretions if appropriate 6. Suction secretions as indicated to maintain patent airway 7. Instruct patient to turn, cough, and deep breathe; encourage incentive spirometer if indicated Note: Evaluation of progress towards goal: 10/18/23 1912 Vital Signs Pulse 95 Heart Rate Source Pulse Ox Resp 20 SpO2 96 % O2 Device None (Room air) O2 Flow Rate (L/min) 0 L/min FiO2 (%) 21 % Patient Position Lying on Right Side Respiratory Assessment Assessment Type Pre-treatment Level of Consciousness (asleep) Respiratory Pattern Regular Chest Assessment Chest expansion symmetrical Bilateral Breath Sounds Clear;Diminished R Breath Sounds Clear;Diminished L Breath Sounds Clear;Diminished Location Specific No Inhalation Therapy Delivery Source Oxygen Device Nebulizer Duration (Minutes) 10 Position Semi Leach's [employer]X Micro [id number] Plan of care note* Plan of Care - Inez Vera RN - 10/18/2023 12:22 PM EST Problem: Pain Goal: Patient goal is pain score less than 4, able to rest, and participant in treatment plan as appropriate Description: INTERVENTIONS: 1. Encourage patient or legal brand representative to report early pain and ask for pain medicine when needed 2. Assess pain using appropriate pain scale and include the scale used when documenting 3. Administer analgesics based on type and severity of pain and evaluate response within appropriate time frame 4. Implement non-pharmacological measures as appropriate and evaluate response 5. Consider cultural and social influences on pain and pain management 6. Notify LIP if interventions ineffective or patient reports new pain 7. Monitor vital signs including pulse ox, end-tidal CO2 based on pain intervention 8. Reassess pain per policy 9. Teach patient or legal brand representative interventions for comforting Outcome: Progressing Note: Evaluation of progress towards goal: Patient demonstrated the use of appropriate diversional activities and relaxation skills, and maintained pain less than 2 on a rating scale of 0 out of 10. Problem: Safety Goal: Patient will be injury free during hospitalization Description: INTERVENTIONS: 1. Assess patient's risk for falls and implement fall prevention plan of care per policy 2. Provide and maintain a safe environment 3. Proper use of double Identifiers 4. Medication administration using the 5 rights 5. Hand hygiene 6. Specimens are labeled at the bedside 7. Instruct patient/ patient brand representative about use of safety devices 8. Include patient/ patient brand representative in decisions related to safety Outcome: Progressing Note: Evaluation of progress towards goal: Pt has remained free of injury. Will continue to reinforce protocols for patient and staff. [employer] [id number] Progress note* PT/OT/GEOLOGICAL AIDE - Lanette Wheatley, DIRECT OF REAL ESTATE - 10/18/2023 7:30 AM EST Physical Therapy Treatment Discharge Recommendations PT Recommendations: [facility] Facility (vs ECF) 6 Clicks: Basic Mobility Turning from your back to your side while in a flat bed without using bed rails?: None Moving from lying on your back to sitting on side of flat bed without using bed rails?: A little Moving to and from bed to a chair (including w/c)?: A little Standing up from a chair using your arms (e.g. w/c or bedside chair)?: A little To walk in hospital room?: A lot Climbing 3-5 steps with a railing?: Total Scoring 6 Clicks: Basic Mobility Raw Score: 16 CMS G Code Modifier: CK Therapy Plan Need for skilled Physical Therapy to address deficits in functional mobility due to a status decline resulting from aspiration PT Treatment/Interventions: Functional transfer training, Endurance training, LE strengthening/ROM,Balance, Stair training, Bed mobility, Gait training, Functional activities, Neuromuscular reeducation PT Frequency: 3-4days/week PT Duration: 10 days Patient Response to Treatment: Progressing toward goals Assessment Patient Assessment Therapy Problem List: Abnormal posture, Decreased balance, Decreased cognition, Decreased endurance, Decreased mobility, Decreased safe judgement during ADL, Decreased LE ROM, Decreased LE strength Patient Response to Treatment: Progressing toward goals Mood/Affect: Appropriate for circumstances Rehab Prognosis: Fair, With continued PT status post acute discharge Visit RN Communication: Yes Medical Record Reviewed: Yes PT Type of Visit: Treatment Precautions Activity: Ok to treat per RN Equipment: non skid socks, rolling walker Telemetry/Press Machine Feeder: No Pain Assessment Pain Assessment: No/denies pain Cognition Overall Cognitive Status: Exceptions to Within Functional Limits Attention Span: Appears intact Orientation Level: Oriented to person, Oriented to place, Oriented to age, Disoriented to month Following Commands: Follows all commands and directions without difficulty Safety Judgment: Decreased awareness of need for assistance, Decreased awareness of need for safety 10/18/23 0700 LE Seated LE seated exercises performed? Yes Ankle pumps 10 Long arc quads 10 Seated marching 10 Other sit to stand x 10 Bed Mobility Other: pt reclined in recliner upon arrival to room. IND lowers legs of chair to transfer to standing Transfers Sit to Stand: Contact guard assist, Verbal cues Stand to Sit: Contact guard assist, Verbal cues Gait Base of Support: Wide Pattern: Decreased trent, R Decreased heel strike, L Decreased heel strike, R Decreased stance time, L Decreased stance time Gait Assistance: Contact guard assist, Min assist Assistive Device: Rolling walker Gait Distance: 30 ft x 1 80 ft x 1 Limiting Factors to Gait: Decreased safety, Fatigue 2 Turns: Yes Balance Sitting Balance: Static: Good Sitting Balance: Dynamic: Fair Standing Balance: Static: Fair Standing Balance: Dynamic: Fair Activity Tolerance Endurance: Tolerates <30 minutes activity WITHOUT vital sign changes Plan Physical Therapy Care Plan Physical Therapy Care Plan (Active) Template: PT - Physical Therapy Problem: Gait Dates: Start: 10/16/23 Disciplines: PT Goal: Patient will perform gait with Minimum Assist Dates: Start: 10/16/23 Expected End: 10/25/23 Description: Pt to be able to ambulate 20ft with walker to be able to safely manage household distances at discharge. Disciplines: PT Outcomes Date/Time User Outcome 10/18/23726 Lanette Wheatley PTA Progressing Goal Note filed on 10/18/23726 by Lanette Wheatley PTA Evaluation of progress towards goal: AMB with MIN A/CGA with walker Problem: Standing Balance Dates: Start: 10/16/23 Disciplines: PT Goal: Improve balance to fair Dates: Start: 10/16/23 Expected End: 10/25/23 Description: Static Dynamic Pt to have balance of fair in order to decrease risk of falls at discharge. Disciplines: PT Outcomes Date/Time User Outcome 10/18/23726 Lanette Wheatley, DIRECT OF REAL ESTATE Progressing 10/17/23 0843 Lanette Wheatley PTA Progressing Goal Note filed on 10/18/23726 by Lanette Wheatley PTA Evaluation of progress towards goal: fair balance Problem: Transfers Dates: Start: 10/16/23 Disciplines: PT Goal: Patient will perform transfers with Minimum Assist Dates: Start: 10/16/23 Expected End: 10/25/23 Description: Goal Description: Pt to be able to safely transfer with least amount of assistance to demonstrate decreased need for caregiver assistance and ease with home transfers. Disciplines: PT Outcomes Date/Time User Outcome 10/18/23726 Lanette Wheatley PTA Progressing Goal Note filed on 10/18/23726 by Lanette Wheatley PTA Evaluation of progress towards goal: CGA/MIN A Physical Therapy Care Plan (Resolved) There are no resolved problems. Principal Problem: Aspiration pneumonia of both lower lobes, unspecified aspiration pneumonia type ([facility]) Active Problems: Essential hypertension Diabetic autonomic neuropathy associated with type 2 diabetes mellitus ([facility]) Chronic obstructive pulmonary disease ([facility]) Mixed hyperlipidemia Metabolic encephalopathy Altered mental status Associated attestation - Devin Marin, PT - 10/18/2023 7:35 AM EST I have reviewed and agree with this note and education documentation for this visit. [facility] Plan of care note* Plan of Care - Xiomara Medina RN - 10/18/2023 4:26 AM EST Problem: Safety Goal: Patient will be injury free during hospitalization Description: INTERVENTIONS: 1. Assess patient's risk for falls and implement fall prevention plan of care per policy 2. Provide and maintain a safe environment 3. Proper use of double Identifiers 4. Medication administration using the 5 rights 5. Hand hygiene 6. Specimens are labeled at the bedside 7. Instruct patient/ patient brand representative about use of safety devices 8. Include patient/ patient brand representative in decisions related to safety Outcome: Progressing Note: Evaluation of progress towards goal: Able to ambulate In and Out of the bed this time independentlywith walker with just supervision. No injury/ trauma/ fall. Hourly rounds completed. Problem: Moderate - High Risk Fall Score Description: Horotn Fall Score of =/> 25 or indicated by [facility] Assessment Goal: Patient should be free from fall Description: Interventions: 1. [place] to environment 2. Hourly rounds addressing the 4 P's (Pain, Positioning, Possessions, Potty) 3. Clear area of hazards (spills, clutter, electrical cords, unnecessary equipment) 4. Place equipment (bed & TV controls, call light, phone, urinal) within reach 5. Encourage patient to wear glasses and hearing aides as appropriate 6. Maintain bed in lowest position 7. Lock wheels on bed/wheelchair 8. Provide adequate lighting, including night light 9. Assess need for additional bedding, food/fluids, pain med's prior to sleep/routinely 10. Provide gripper slippers or personal non-skid footwear 11. Teach patient and patient brand representative to maintain environment for safety and engage in all aspects of fall prevention program 12. Remind patient to call for help before getting out of bed 13. Initiate bed/chair/exit alarms supportive devices as appropriate, (chair wedge, no-skid floor mat, raised edge mattress, hip protectors) 14. Locate patient bed assignment for optimal visualization 15. Evaluate and identify Safe Patient Handling Equipment needs 16. Provide supervision when out of bed or chair 17. Utilize gait belt as needed to assist with ambulation 18. Place adaptive equipment (cane, walker) within reach 19. Request patient brand representative bring adaptive equipment/mobility aids from home or obtain and provide as needed 20. Consult pharmacy regarding effects of med's affecting mobility, cognition, and alternatives 21. Obtain physician order for PT if risk factors associated with mobility are present 22. Obtain physician order for OT as appropriate 23. Utilize diversional activities 24. Educate patient and patient brand representative how to maintain a safe environment during visitationtimes (notify nurse prior to leaving bedside) 25. Consider appropriateness of medical or non-biomedical engineering technician 26. Set up voiding schedule as appropriate (every 2 hours) Outcome: Progressing Note: Evaluation of progress towards goal: No fall episodes during the entire shift Problem: Neurosensory - Adult Goal: Achieves stable or improved neurological status Description: Patient's goal is: INTERVENTIONS 1. Assess for and report changes in neurological status 2. Initiate measures to prevent increased intracranial pressure 3. Maintain blood pressure and fluid volume within ordered parameters to optimize cerebral perfusion and minimize risk of hemorrhage 4. Monitor temperature, glucose, and sodium. Initiate appropriate interventions as ordered Outcome: Progressing Note: Evaluation of progress towards goal: GCS - 15 from 13-14 last night, ,lethargy - resolved, alert this time, follows command at most part, RN sitter transitioned to virtual sitter. Problem: Respiratory - Adult Goal: Achieves optimal ventilation and oxygenation Description: Patient's goal is: INTERVENTIONS: 1. Assess for changes in respiratory status 2. Assess for changes in mentation and behavior 3. Position to facilitate oxygenation and minimize respiratory effort 4. Oxygen supplementation based on oxygen saturation or ABGs as ordered 5. Consult smoking cessation as indicated 6. Encourage broncho-pulmonary hygiene including cough, deep breathe, Incentive Spirometry, keep HOB elevated as tolerated, and encourage ambulation, as ordered 7. Assess the need for suctioning and obtain order to maintain clear airway 8. Assess and instruct patient to report SOB or any respiratory difficulty 9. Assess the need for Respiratory Therapy support if not already ordered 10. Initiate emergency measures for respiratory failure Outcome: Progressing Note: Evaluation of progress towards goal: Currently on room air , breath sounds mildly coarse and wheezy( on breathing treatment )SpO2 - 96%, not in respiratory distress. Achieved.[id number] Plan of care note* Plan of Care - Sindi Cope RCP - 10/17/2023 7:15 PM EST Problem: Inadequate Airway Clearance Goal: Patient will maintain patent airway Description: INTERVENTIONS 1. Assess and monitor breath sounds, cough and sputum (if present) 2. Monitor respiratory rate and oxygen saturation 3. Collaborate with respiratory therapy to administer medication, oxygen, and suitable airway clearance techniques as ordered 4. Position patient for maximum ventilatory efficiency; elevate head of bed at least 30 degrees if appropriate 5. Provide adequate fluid intake to liquify secretions if appropriate 6. Instruct patient to turn, cough, and deep breathe Note: Evaluation of progress towards goal: 10/17/23 1908 Vital Signs Pulse 93 Heart Rate Source Pulse Ox Resp 20 SpO2 96 % O2 Device None (Room air) O2 Flow Rate (L/min) 0 L/min FiO2 (%) 21 % Patient Position -nick Respiratory Assessment Assessment Type Pre-treatment Level of Consciousness Alert Respiratory Pattern Regular Chest Assessment Chest expansion symmetrical Bilateral Breath Sounds Clear;Diminished R Breath Sounds Clear;Diminished L Breath Sounds Clear;Diminished Location Specific No Inhalation Therapy Delivery Source Oxygen Device Nebulizer Duration (Minutes) 10 Position High [facility] [employer] [id number] Plan of care note* Plan of Care - Inez Vera RN - 10/17/2023 6:14 PM EST Problem: Pain Goal: Patient goal is pain score less than 4, able to rest, and participant in treatment plan as appropriate Description: INTERVENTIONS: 1. Encourage patient or legal brand representative to report early pain and ask for pain medicine when needed 2. Assess pain using appropriate pain scale and include the scale used when documenting 3. Administer analgesics based on type and severity of pain and evaluate response within appropriate time frame 4. Implement non-pharmacological measures as appropriate and evaluate response 5. Consider cultural and social influences on pain and pain management 6. Notify LIP if interventions ineffective or patient reports new pain 7. Monitor vital signs including pulse ox, end-tidal CO2 based on pain intervention 8. Reassess pain per policy 9. Teach patient or legal brand representative interventions for comforting Outcome: Progressing Note: Evaluation of progress towards goal: Patient demonstrated the use of appropriate diversional activities and relaxation skills, and maintained pain less than 2 on a rating scale of 0 out of 10. Problem: Safety Goal: Patient will be injury free during hospitalization Description: INTERVENTIONS: 1. Assess patient's risk for falls and implement fall prevention plan of care per policy 2. Provide and maintain a safe environment 3. Proper use of double Identifiers 4. Medication administration using the 5 rights 5. Hand hygiene 6. Specimens are labeled at the bedside 7. Instruct patient/ patient brand representative about use of safety devices 8. Include patient/ patient brand representative in decisions related to safety Outcome: Progressing Note: Evaluation of progress towards goal: Pt has remained free of injury. Will continue to reinforce protocols for patient and staff. [facility] [employer] [id number] Progress note* PT/OT/GEOLOGICAL AIDE - Lanette Wheatley, DIRECT OF REAL ESTATE - 10/17/2023 8:46 AM EST Physical Therapy Treatment Discharge Recommendations PT Recommendations: [facility] Facility (vs ECF) 6 Clicks: Basic Mobility Turning from your back to your side while in a flat bed without using bed rails?: None Moving from lying on your back to sitting on side of flat bed without using bed rails?: A little Moving to and from bed to a chair (including w/c)?: A lot Standing up from a chair using your arms (e.g. w/c or bedside chair)?: A lot To walk in hospital room?: Total Climbing 3-5 steps with a railing?: Total Scoring 6 Clicks: Basic Mobility Raw Score: 13 CMS G Code Modifier: CK Therapy Plan Need for skilled Physical Therapy to address deficits in functional mobility due to a status decline resulting from aspiration pneumonia. PT Treatment/Interventions: Functional transfer training, Endurance training, LE strengthening/ROM,Balance, Stair training, Bed mobility, Gait training, Functional activities, Neuromuscular reeducation PT Frequency: 3-4days/week PT Duration: 10 days Patient Response to Treatment: Slow progress, cognitive deficits Assessment Patient Assessment Therapy Problem List: Abnormal posture, Decreased balance, Decreased cognition, Decreased endurance, Decreased mobility, Decreased safe judgement during ADL, Decreased LE ROM, Decreased LE strength Patient Response to Treatment: Slow progress, cognitive deficits Mood/Affect: Flat Rehab Prognosis: Fair, With continued PT status post acute discharge Visit RN Communication: Yes Medical Record Reviewed: Yes PT Type of Visit: Treatment Precautions Activity: Ok to treat per RN Equipment: nonskid socks, standard walker Telemetry/Press Machine Feeder: Yes Oxygen Used: room air Pain Assessment Pain Assessment: No/denies pain (pt unable to self report pain level; no pain behaviors observed) 10/17/23 0800 TKA TKA exercises performed? No Bed Mobility Supine to Sit: Stand by assist, Verbal cues Sit to Supine: Stand by assist, Verbal cues Other: Pt impulsively trying to sit up to edge of bed upon arrival to room with 1:1 sitter present.Pt did not follow cues for safety Transfers Sit to Stand: Min assist, Verbal cues Stand to Sit: Min assist, Verbal cues Other: posterior lean in standing, unsteady Gait Base of Support: Wide Pattern: Decreased trent, R Decreased heel strike, L Decreased heel strike, R Decreased stance time, L Decreased stance time Gait Assistance: Mod assist Assistive Device: None (hand held assist) Gait Distance: bed to chair Limiting Factors to Gait: Decreased safety, Cognition/difficulty following directions Included Uneven Surface: Not attempted d/t safety concerns 2 Turns: Not attempted d/t safety concerns Other: Pt remains up in chair at end of session. Chair alarm on and 1:1 sitter in room with patient Balance Sitting Balance: Static: Good Sitting Balance: Dynamic: Fair Standing Balance: Static: Poor Standing Balance: Dynamic: Poor Activity Tolerance Endurance: Tolerates <30 minutes activity WITHOUT vital sign changes Plan Physical Therapy Care Plan Physical Therapy Care Plan (Active) Template: PT - Physical Therapy Problem: Gait Dates: Start: 10/16/23 Disciplines: PT Goal: Patient will perform gait with Minimum Assist Dates: Start: 10/16/23 Expected End: 10/25/23 Description: Pt to be able to ambulate 20ft with walker to be able to safely manage household distances at discharge. Disciplines: PT Problem: Standing Balance Dates: Start: 10/16/23 Disciplines: PT Goal: Improve balance to fair Dates: Start: 10/16/23 Expected End: 10/25/23 Description: Static Dynamic Pt to have balance of fair in order to decrease risk of falls at discharge. Disciplines: PT Outcomes Date/Time User Outcome 10/17/23842 Lanette Wheatley PTA Progressing Goal Note filed on 10/17/23842 by Lanette Wheatley PTA Evaluation of progress towards goal: poor standing balance; impulsive Problem: Transfers Dates: Start: 10/16/23 Disciplines: PT Goal: Patient will perform transfers with Minimum Assist Dates: Start: 10/16/23 Expected End: 10/25/23 Description: Goal Description: Pt to be able to safely transfer with least amount of assistance to demonstrate decreased need for caregiver assistance and ease with home transfers. Disciplines: PT Physical Therapy Care Plan (Resolved) There are no resolved problems. Principal Problem: Aspiration pneumonia of both lower lobes, unspecified aspiration pneumonia type (CMS-HCC) Active Problems: Essential hypertension Diabetic autonomic neuropathy associated with type 2 diabetes mellitus (CMS-HCC) Chronic obstructive pulmonary disease ([facility]) Mixed hyperlipidemia Metabolic encephalopathy Altered mental status Associated attestation - Devin Marin PT - 10/18/2023 6:39 AM EST I have reviewed and agree with this note and education documentation for this visit. [employer] [id number] Plan of care note* Plan of Care - Xiomara Medina RN - 10/17/2023 5:34 AM EST Problem: Neurosensory - Adult Goal: Achieves stable or improved neurological status Description: Patient's goal is: INTERVENTIONS 1. Assess for and report changes in neurological status 2. Initiate measures to prevent increased intracranial pressure 3. Maintain blood pressure and fluid volume within ordered parameters to optimize cerebral perfusion and minimize risk of hemorrhage 4. Monitor temperature, glucose, and sodium. Initiate appropriate interventions as ordered Outcome: Progressing Note: Evaluation of progress towards goal: GCS - 13,lethargy - improved, more alert this time, however on and off agitation, still need sitter due risk of fall. Problem: Respiratory - Adult Goal: Achieves optimal ventilation and oxygenation Description: Patient's goal is: INTERVENTIONS: 1. Assess for changes in respiratory status 2. Assess for changes in mentation and behavior 3. Position to facilitate oxygenation and minimize respiratory effort 4. Oxygen supplementation based on oxygen saturation or ABGs as ordered 5. Consult smoking cessation as indicated 6. Encourage broncho-pulmonary hygiene including cough, deep breathe, Incentive Spirometry, keep HOB elevated as tolerated, and encourage ambulation, as ordered 7. Assess the need for suctioning and obtain order to maintain clear airway 8. Assess and instruct patient to report SOB or any respiratory difficulty 9. Assess the need for Respiratory Therapy support if not already ordered 10. Initiate emergency measures for respiratory failure Outcome: Progressing Note: Evaluation of progress towards goal: Currently on room air , breath sounds clear/ diminished,Spo2 - 96%, not in respiratory distress. [facility]03-02-2024 Plan of care note* Plan of Care - Xiomara Medina RN - 10/17/2023 5:28 AM EST Problem: Safety Goal: Patient will be injury free during hospitalization Description: INTERVENTIONS: 1. Assess patient's risk for falls and implement fall prevention plan of care per policy 2. Provide and maintain a safe environment 3. Proper use of double Identifiers 4. Medication administration using the 5 rights 5. Hand hygiene 6. Specimens are labeled at the bedside 7. Instruct patient/ patient brand representative about use of safety devices 8. Include patient/ patient brand representative in decisions related to safety Outcome: Progressing Note: Evaluation of progress towards goal: Able to ambulate In and Out of the bed to commode with 2assist. No injury/ trauma/ fall. Hourly rounds completed. Problem: Moderate - High Risk Fall Score Description: [place]orton Fall Score of =/> 25 or indicated by [facility] Assessment Goal: Patient should be free from fall Description: Interventions: 1. [place] to environment 2. Hourly rounds addressing the 4 P's (Pain, Positioning, Possessions, Potty) 3. Clear area of hazards (spills, clutter, electrical cords, unnecessary equipment) 4. Place equipment (bed & TV controls, call light, phone, urinal) within reach 5. Encourage patient to wear glasses and hearing aides as appropriate 6. Maintain bed in lowest position 7. Lock wheels on bed/wheelchair 8. Provide adequate lighting, including night light 9. Assess need for additional bedding, food/fluids, pain med's prior to sleep/routinely 10. Provide gripper slippers or personal non-skid footwear 11. Teach patient and patient brand representative to maintain environment for safety and engage in all aspects of fall prevention program 12. Remind patient to call for help before getting out of bed 13. Initiate bed/chair/exit alarms supportive devices as appropriate, (chair wedge, no-skid floor mat, raised edge mattress, hip protectors) 14. Locate patient bed assignment for optimal visualization 15. Evaluate and identify Safe Patient Handling Equipment needs 16. Provide supervision when out of bed or chair 17. Utilize gait belt as needed to assist with ambulation 18. Place adaptive equipment (cane, walker) within reach 19. Request patient brand representative bring adaptive equipment/mobility aids from home or obtain and provide as needed 20. Consult pharmacy regarding effects of med's affecting mobility, cognition, and alternatives 21. Obtain physician order for PT if risk factors associated with mobility are present 22. Obtain physician order for OT as appropriate 23. Utilize diversional activities 24. Educate patient and patient brand representative how to maintain a safe environment during visitationtimes (notify nurse prior to leaving bedside) 25. Consider appropriateness of medical or non-biomedical engineering technician 26. Set up voiding schedule as appropriate (every 2 hours) Note: Evaluation of progress towards goal: No fall episodes during the entire shift [employer] [id number] Plan of care note* Plan of Care - Inez Vera RN - 10/16/2023 6:41 PM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 Patternmaker Sample to pt room, pt not able to converse with leader writer due to mentation. Documents on pt clipboard, pt came to hospital from [facility] with an admission date there of 09/30/23. Call placed to pt sister Delma, introduced self & role of SW; assessment/goals as above based upon information from Delma. Per Delma she is in process of pursing guardianship & there is another hearing on 10/22/23. Delma informs pt spent about 6 weeks at [facility], was sent there from [facility]. Pt DC from [facility] to [facility]. Delma informs pt does not have HCPOA, pt has no children & only other family is a brother whose whereabouts are unknown. Delma also relayed pt is not able to read or write. DC plan per Delma is for pt to return to [facility]. Delma gives leader writer permission to sendreturn to referral; informed Delma that new insurance approval likely needed to DC back to [facility]. Pt has history of substance abuse. Opportunity provided to ask questions, Delma does not endorse any at this time. Plan to prevent readmission is for pt to DC back to [facility], follow DC instructions including medication compliance and to reach out to health care team as needed. Tasked Transition Center to send RETURN TO referral to [facility] & requested confirmation they will accept pt back at [place] & to inform if insurance pre-cert needed to return. Sticky note on chart regarding DC plan. Care Navigation following for safe care transition [facility] History and physical note* Alon Henry MD - 10/15/2023 10:26 AM EST Images from the original note were not included. [facility] MD Enmanuel Blunt, MD Jay Evans, MD Velma Rhodes, MD Dominic Lay, MD Caridad Gaitan, MD Jean Paul Ramirez, MD Milagro Wilde, MD Carrie Ng, ROD Graham, ROD Mireles, ROD Toscano, ROD Maloney, ROD Reyes, ROD Graevs, ROD Robbins, ROD Paulino, ROD Craig, ROD Niño, NOTCH MACHINE OPERATOR Gely Carver, NOTCH MACHINE OPERATOR Jade Bridges, ROD Bhat, ROD Nassar, NOTCH MACHINE OPERATOR Amy Jennings, ROD Sharma, NOTCH MACHINE OPERATOR Link Nathan, [facility] Medicine History & Physical Patient: Akbar Byrnes Date of : 1960 Room: /01 PCP: ROWDY OSWALD MD Admission date: 10/14/2023 9:49 PM Encounter date: 10/15/23 SUBJECTIVE Akbar Byrnes is a 62 y.o. male who presents with fatigue. On initial evaluation, pt is asleep and struggling to wake up. EMS states he has had multiple run-ins with this pt. 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 Pt has no known drug allergies. There are no other concerns at this time. [facility] Course: CBC is reassuring against acute clinically significant anemia, leukocytosis, and thrombocytopenia. Venous blood gas shows a pCO2 of 53 which is only slightly elevated, and a bicarb of 28, which is likely chronic compensation given his COPD. EMS was called for altered mental status. Upon t ransport here, the EMS people said he looked like he was at his baseline mentation. On exam, he is resting comfortably, but only withdraws to pain, is nonverbal, and opens his eyes to painful stimuli. This is not a large departure from his baseline mental status. I did CT his brain as a precaution which was unremarkable. It does look like he has an aspiration pneumonia for which I am treating himwith Unasyn. Since he is encephalopathic from this, would recommend observation. Metabolic panel isreassuring against acute clinically significant electrolyte abnormalities, acute kidney injury, andacute liver failure. Chief Complaint Patient presents with Fatigue Allergies: Patient has no known allergies. Prior to Admission medications Medication Sig Start Date End Date Taking? Authorizing Provider acetaminophen (TylenoL) 325 mg tablet Take 2 tablets (650 mg total) by mouth every 6 (six) hours asneeded for pain. Not In System Ref Prov aspirin 81 mg Take 1 tablet (81 mg total) by mouth in the morning. Not In System Ref Prov bisacodyL (DULCOLAX, BISACODYL,) 10 mg suppository Insert 1 suppository (10 mg total) into the rectum as needed for constipation. Every 24 hours PRN Not In System Ref Prov clonazePAM (KlonoPIN) 0.5 mg tablet Take 1 tablet (0.5 mg total) by mouth in the morning and 1 tablet (0.5 mg total) before bedtime. Not In System Ref Prov divalproex (DEPAKOTE) 250 mg EC tablet Take 1 tablet (250 mg total) by mouth 3 (three) times a day.Not In System Ref Prov ESCITALOPRAM OXALATE ORAL Take 5 mg by mouth in the morning. Indications: depression. Not In SystemRef Prov glipiZIDE (GLUCOTROL XL) 10 mg 24 hr tablet Take 1 tablet (10 mg total) by mouth in the morning. Not In System Ref Prov hydrALAZINE (APRESOLINE) 25 mg tablet Take 1 tablet (25 mg total) by mouth every 6 (six) hours as needed (For SBP >160). Not In System Ref Prov LORazepam (ATIVAN) 1 mg tablet Take 1 tablet (1 mg total) by mouth every 6 (six) hours as needed for anxiety. Not In System Ref Prov simethicone (MYLICON) 80 mg chewable tablet Chew 1 tablet (80 mg total) and swallow every 8 (eight)hours as needed for flatulence. Not In System Ref Prov tiotropium bromide (SPIRIVA RESPIMAT) 2.5 mcg/actuation mist Inhale 2 puffs in the morning. Not In System Ref Prov traZODone (DESYREL) 100 mg tablet Take 1 tablet (100 mg total) by mouth nightly. Not In System Ref Prov Past Medical History: Patient has a past medical history of Closed fracture of transverse process of lumbar vertebra withroutine healing, COPD (chronic obstructive pulmonary disease) ([facility]), Diabetes mellitus ([facility]), Fall from height of greater than 3 feet, Hyperlipidemia, Hypertension, Neuropathy, Restless leg syndrome, Traumatic closed displaced fracture of one rib of left side with routine healing, and Traumatic pneumothorax. Past Surgical History: Patient has a past surgical history that includes Joint replacement () and Other surgical history. Family History: Patient's family history includes ALS in his brother; Diabetes in his mother and sister; Heart disease in his father and mother; Hypertension in his mother and sister; Throat cancer in his brother. Social History: Patient reports that he has been smoking cigarettes. He has a 250 pack-year smoking history. He quit smokeless tobacco use about 14 years ago. His smokeless tobacco use included chew. He reports thathe does not currently use alcohol after a past usage of about 2.0 standard drinks of alcohol per week. He reports current drug use. Frequency: 3.00 times per week. Drugs: Marijuana and Methamphetamines. Review of Systems Review of Systems Constitutional: Positive for fatigue. Negative for activity change, appetite change, chills, diaphoresis and fever. HENT: Negative for tinnitus and trouble swallowing. Eyes: Negative for visual disturbance. Respiratory: Negative for cough, chest tightness, shortness of breath and wheezing. Cardiovascular: Negative for chest pain, palpitations and leg swelling. Gastrointestinal: Negative for abdominal pain, diarrhea, nausea and vomiting. Genitourinary: Negative for difficulty urinating. Skin: Negative for rash. Neurological: Negative for dizziness, syncope, speech difficulty, weakness, light-headedness, numbness and headaches. Psychiatric/Behavioral: Positive for agitation, behavioral problems and confusion. Negative for sleep disturbance. The patient is nervous/anxious. OBJECTIVE BP (!) 151/93 Pulse 85 Temp 36.6 C (97.9 F) (Oral) Resp 22 Ht 180.3 cm (5' 11 ) Wt 75.9 kg (167 lb 6.4 oz) SpO2 94% BMI 23.35 kg/m Intake/Output Summary (Last 24 hours) at 10/15/2023 1032 Last data filed at 10/15/2023 0530 Gross per 24 hour Intake -- Output 200 ml Net -200 ml Physical Exam Physical Exam Vitals and nursing note reviewed. Constitutional: General: He is not in acute distress. HENT: Head: Normocephalic and atraumatic. Right Ear: External ear normal. Left Ear: External ear normal. Nose: Nose normal. Mouth/Throat: Mouth: Mucous membranes are moist. Pharynx: Oropharynx is clear. Eyes: Extraocular Movements: Extraocular movements intact. Pupils: Pupils are equal, round, and reactive to light. Neck: Vascular: No carotid bruit or JVD. Cardiovascular: Rate and Rhythm: Normal rate and regular rhythm. Pulses: Normal pulses. Pulmonary: Effort: Pulmonary effort is normal. Breath sounds: Rhonchi (Scattered rhonchi noted throughout lung wilson.) and rales (Bibasilar rales.) present. Abdominal: General: Bowel sounds are normal. Palpations: Abdomen is soft. Tenderness: There is no abdominal tenderness. There is no right CVA tenderness or left CVA tenderness. Musculoskeletal: Right lower leg: No edema. Left lower leg: No edema. Lymphadenopathy: Cervical: No cervical adenopathy. Skin: General: Skin is warm and dry. Capillary Refill: Capillary refill takes less than 2 seconds. Neurological: Mental Status: He is alert. He is confused. GCS: GCS eye subscore is 4. GCS verbal subscore is 4. GCS motor subscore is 6. Motor: Tremor present. Comments: Tremors noted to all extremities. Alert but confused. Psychiatric: Mood and Affect: Mood is anxious. Behavior: Behavior is agitated. Thought Content: Thought content normal. Judgment: Judgment normal. Medications Scheduled: ampicillin-sulbactam (UNASYN) IV, 3,000 mg, intravenous, Q6H ampicillin-sulbactam, , , aspirin, 81 mg, oral, Daily escitalopram, 5 mg, oral, Daily insulin lispro, 2-10 Units, subcutaneous, TID with meals insulin lispro, 2-8 Units, subcutaneous, Nightly umeclidinium, 1 puff, inhalation, Daily Infusions: sodium chloride 0.9 %, 10 mL/hr, Last Rate: 10 mL/hr (10/15/23 0523) As Needed: acetaminophen alum-mag hydroxide-simeth ampicillin-sulbactam bisacodyL dextrose dextrose 50 % in water (D50W) glucagon (human recombinant) hydrALAZINE magnesium sulfate magnesium sulfate ondansetron ODT potassium chloride in water sennosides-docusate sodium sodium chloride sodium chloride 0.9 % Allergies: Patient has no known allergies. Labs Recent Results (from the past 24 hour(s)) CBC auto differential Collection Time: 10/14/23 10:20 PM Result Value Ref Range White Blood Cells 8.0 4.0 - 11.0 X10E9/L RBC count 4.26 4.10 - 5.70 X10E12/L Hemoglobin 13.4 13.0 - 17.0 g/dL Hematocrit 39.4 39 - 49 % MCV 93 80 - 100 fL MCH 31.5 27 - 34 pg MCHC 34.0 32 - 36 g/dL RDW 14.5 11.5 - 15.0 % Platelets 230 150 - 450 X10E9/L MPV 8.6 7 - 12 fL % neutrophils 57.9 % % lymphocytes 25.1 % % monocytes 12.5 % % eosinophils 3.6 % % Basophils 0.9 % Neutrophils Absolute (A) 4.6 1.5 - 6.6 X10E9/L Lymphocytes Absolute 2.0 1.0 - 3.5 X10E9/L Monocytes Absolute 1.0 (H) 0 - 0.9 X10E9/L Eosinophils Absolute 0.3 0.0 - 0.4 X10E9/L Basophils Absolute 0.1 0.0 - 0.2 X10E9/L Comprehensive metabolic panel Collection Time: 10/14/23 10:20 PM Result Value Ref Range Sodium 137 134 - 146 mmol/L Potassium, Bld 3.7 3.5 - 5.0 mmol/L Chloride 105 98 - 109 mmol/L CO2 26 22 - 32 mmol/L Anion gap 6 5 - 15 mmol/L BUN 23 5 - 27 mg/dL Creatinine 0.82 0.70 - 1.20 mg/dL Glucose 108 (H) 65 - 99 mg/dL Calcium 9.7 8.5 - 10.5 mg/dL Total Protein 7.2 6.0 - 8.0 g/dL Albumin 3.2 3.2 - 5.3 g/dL Alkaline Phosphatase 85 39 - 130 U/L AST 44 (H) 0 - 41 U/L ALT 72 (H) 0 - 40 U/L Total bilirubin 0.5 0.3 - 1.2 mg/dL eGFR (CKD-EPI)non-race dependent >90 >59 ml/min/1.73sq.m Ethanol Collection Time: 10/14/23 10:20 PM Result Value Ref Range Ethanol Lvl <0.01 0.00 - 0.08 g/dL Magnesium Collection Time: 10/14/23 10:20 PM Result Value Ref Range Magnesium 1.9 1.8 - 2.6 mg/dL Troponin I Collection Time: 10/14/23 10:20 PM Result Value Ref Range Troponin I 0.01 0.00 - 0.04 ng/mL Thyroid profile includes TSH FT4 Collection Time: 10/14/23 10:20 PM Result Value Ref Range TSH 2.62 0.49 - 4.67 uIU/mL T4, free 0.82 0.61 - 1.60 ng/dL Blood gas, venous Collection Time: 10/14/23 10:24 PM Result Value Ref Range Sample Type VENOUS Body Temp 37.0 37.0 C pH, Venous 7.334 7.320 - 7.420 PCO2, Venous 53.1 (H) 35 - 50 MMHG PO2, Venous 37 30 - 50 MMHG Base,Excess 1.0 0.0 - 2.0 MMOL/L Portable HCO3 28.2 (H) 20.0 - 24.0 MMOL/L % O2 Sat 66.0 (L) >80.0 % Kaiden's Test NA Sample Site N/A Insp. O2 Conc. 21 % Oxygen Source RoomAir SARS/FLU A+B/RSV by NAAT/Molecular (M4RT Collection Tube) Collection Time: 10/14/23 10:25 PM Result Value Ref Range FLU A PCR Negative Negative^Negative FLU B PCR Negative Negative^Negative RSV by PCR Negative Negative^Negative SARS CoV 2 BY PCR Not Detected Not Detected^Not Detected POCT Nursing Urine Macroscopic UA Collection Time: 10/14/23 11:32 PM Result Value Ref Range Specific gravity SCOTT 1.025 1.003 - 1.035 Leukocyte esterase SCOTT Negative Negative^Negative Nitrite SCOTT Negative Negative^Negative Ph 6.0 5.0 - 8.5 Protein SCOTT 100 (A) Negative^Negative mg/dL Urine glucose SCOTT Negative Negative^Negative mg/dL Ketones SCOTT Negative Negative^Negative mg/dL Urobilinogen SCOTT 0.2 <1.1 eu/dL Bilirubin SCOTT Negative Negative^Negative Hemoglobin SCOTT Negative Negative^Negative Bedside Glucose *Place/Obtain serum glucose if >500(>600 MRH) per glucometer. Collection Time: 10/15/23 8:10 AM Result Value Ref Range Bedside glucose 90 65 - 99 mg/dL Radiology CT brain without contrast Result Date: 10/14/2023 Narrative: CT BRAIN WITHOUT CONTRAST COMPARISON: 11/15/2022 HISTORY: Transient alteration of awareness. TECHNIQUE: Unenhanced axial images of the brain were obtained. Automatic exposure control (AEC) was utilized. FINDINGS: There is no evidence for acute intracranial hemorrhage. Previously seen left subdural fluid collection has resolved. There is no hydrocephalus, mass effect, or midline shift. Jones-white differentiation is preserved with no CT evidence for an acute infarct. 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 There are multifocal areas of low-attenuation throughout the periventricular and subcortical white matter of both cerebral hemispheres which are nonspecific, but are most likely sequela of chronic small vessel ischemia. No acute fracture. IMPRESSION: No evidence for an acute intracranial process. Chronic changes detailed above. All CT scans at this facility use dose modulation, iterative reconstruction, and/or weight based dosing when appropriate to reduce radiation dose to as low as reasonably achievable. Finalized by Deo Harrison MD on 10/14/2023 11:44 PM X-ray chest 1 view Result Date: 10/14/2023 Narrative: CHEST ONE VIEW COMPARISON: 11/10/2022 HISTORY: Rales over R lower chest, altered mental status. FINDINGS: Portable AP chest radiograph demonstrates interstitial and ill-defined airspace opacities at both lung bases with more focal opacity at the lateral left lung base. The cardiomediastinal silhouette and pulmonary vasculature are within normal limits. No evidence for a pneumothorax or pleural effusion. IMPRESSION: Interstitial and ill-defined airspace spaces of both lung bases with more focal nodular opacity lateral left lung base. Findings most likely sequelae of multifocal pneumonia or aspiration. Short-term follow-up PA and lateral chest radiographs in 6-8 weeks after appropriate therapy recommended to ensure resolution of the airspace opacities. Finalized by Deo Harrison MD on 10/14/2023 11:22 PM HOSPITAL PROBLEM LIST Principal Problem: Aspiration pneumonia of both lower lobes, unspecified aspiration pneumonia type ([facility]) Active Problems: Essential hypertension Diabetic autonomic neuropathy associated with type 2 diabetes mellitus ([facility]) Chronic obstructive pulmonary disease ([facility]) Mixed hyperlipidemia Metabolic encephalopathy Altered mental status ASSESSMENT & PLAN Aspiration pneumonia: Unasyn. DuoNebs as needed. O2 as needed. Not requiring any oxygen. Speech therapy consult. Failed swallow study. No liquids but can use pureed diet. Pureed diet ordered. Fluoroscopy swallow study if able. Essential hypertension: Unable to take p.o. at this time. IV hydralazine as needed. Dm 2: Monitor blood glucose a.c. and HS cover sliding scale insulin. COPD: No acute exacerbation. Continue home inhalers. Hyperlipidemia: NPO at this time. Hold statin. Will restart when patient able to take oral medications again. Metabolic encephalopathy/altered mental status: Unsure of baseline. Patient is awake but not answering questions correctly. Anxiety/agitation: 1 time dose Zyprexa given which was ineffective. One time dose 1 mg Ativan givenIV somewhat effective. Will continue Ativan IV p.r.n. for anxiety/agitation. Tele sitter in the room. Admission orders placed and home medications reconciled. DVT prophylaxis: EPC's and no pharmacological intervention secondary to history of subdural hematomas. GI prophylaxis. Protonix PT/OT/ST to evaluate and treat. DC planning: Discharge back to nursing facility in 1-2 days. Miguel Paulino APRN-ROD, 10/15/2023 10:32 AM [facility] [place] [facility] Hospitalists 7AM-7PM: Message rounding EDGAR in [employer] or page through [employer]. 7PM-7AM: Page on-call EDGAR through our answering service, . Physician Attestation: I have reviewed the above note authored by the Advance Practice Provider (EDGAR) including history, review of systems, physical examination, medical decision making and agree with the assessment & plan. I have personally performed a face to face diagnostic evaluation on this patient. I have reviewed all laboratory findings and imaging reports/films. I have independently evaluated the patient and repeated cueva portions of the physical exam. I agree with the EDGAR plan as above, unless otherwise noted. ALON HENRY MD [facility]02-29-2024 History and physical note* Alon Henry MD - 10/15/2023 10:26 AM EST Images from the original note were not included. [facility] MEDICINE [facility] HOSPITALISTS MD Enmanuel Blunt MD Kaleem Gill, MD Sneha Kommoori, MD Caridad Amin MD Ravi Pothireddy, MD Milagro Wilde, MD Carrie Ng, NOTCH MACHINE OPERATOR Leila Graham, NOTCH MACHINE OPERATOR Mya Mireles, NOTCH MACHINE OPERATOR Coral Toscano, NOTCH MACHINE OPERATOR Jennifer Maloney, NOTCH MACHINE OPERATOR Joann Reyes, NOTCH MACHINE OPERATOR Cici Graves, ROD Robbins, ROD Paulino, ORD Craig, ROD Niño, ROD Carver, NOTCH MACHINE OPERATOR Jade Bridges, NOTCH MACHINE OPERATOR Manfred Bhat, NOTCH MACHINE OPERATOR Magali Nassar, NOTCH MACHINE OPERATOR Amy Jennings, NOTCH MACHINE OPERATOR Laura Sharma, NOTCH MACHINE OPERATOR Link Nathan, [facility] Hospital Medicine History & Physical Patient: Akbar Byrnes Date of : 1960 [facility] PCP: ROWDY OSWALD MD Admission date: 10/14/2023 9:49 PM Encounter date: 10/15/23 SUBJECTIVE Akbar Byrnes is a 62 y.o. male who presents with fatigue. On initial evaluation, pt is asleep and struggling to wake up. EMS states he has had multiple run-ins with this pt. 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 Pt has no known drug allergies. There are no other concerns at this time. From [facility]. ER Course: CBC is reassuring against acute clinically significant anemia, leukocytosis, and thrombocytopenia. Venous blood gas shows a pCO2 of 53 which is only slightly elevated, and a bicarb of 28, which is likely chronic compensation given his COPD. EMS was called for altered mental status. Upon t ransport here, the EMS people said he looked like he was at his baseline mentation. On exam, he is resting comfortably, but only withdraws to pain, is nonverbal, and opens his eyes to painful stimuli. This is not a large departure from his baseline mental status. I did CT his brain as a precaution which was unremarkable. It does look like he has an aspiration pneumonia for which I am treating himwith Unasyn. Since he is encephalopathic from this, would recommend observation. Metabolic panel isreassuring against acute clinically significant electrolyte abnormalities, acute kidney injury, andacute liver failure. Chief Complaint Patient presents with Fatigue Allergies: Patient has no known allergies. Prior to Admission medications Medication Sig Start Date End Date Taking? Authorizing Provider acetaminophen (TylenoL) 325 mg tablet Take 2 tablets (650 mg total) by mouth every 6 (six) hours asneeded for pain. Not In System Ref Prov aspirin 81 mg Take 1 tablet (81 mg total) by mouth in the morning. Not In System Ref Prov bisacodyL (DULCOLAX, BISACODYL,) 10 mg suppository Insert 1 suppository (10 mg total) into the rectum as needed for constipation. Every 24 hours PRN Not In System Ref Prov clonazePAM (KlonoPIN) 0.5 mg tablet Take 1 tablet (0.5 mg total) by mouth in the morning and 1 tablet (0.5 mg total) before bedtime. Not In System Ref Prov divalproex (DEPAKOTE) 250 mg EC tablet Take 1 tablet (250 mg total) by mouth 3 (three) times a day.Not In System Ref Prov ESCITALOPRAM OXALATE ORAL Take 5 mg by mouth in the morning. Indications: depression. Not In SystemRef Prov glipiZIDE (GLUCOTROL XL) 10 mg 24 hr tablet Take 1 tablet (10 mg total) by mouth in the morning. Not In System Ref Prov hydrALAZINE (APRESOLINE) 25 mg tablet Take 1 tablet (25 mg total) by mouth every 6 (six) hours as needed (For SBP >160). Not In System Ref Prov LORazepam (ATIVAN) 1 mg tablet Take 1 tablet (1 mg total) by mouth every 6 (six) hours as needed for anxiety. Not In System Ref Prov simethicone (MYLICON) 80 mg chewable tablet Chew 1 tablet (80 mg total) and swallow every 8 (eight)hours as needed for flatulence. Not In System Ref Prov tiotropium bromide (SPIRIVA RESPIMAT) 2.5 mcg/actuation mist Inhale 2 puffs in the morning. Not In System Ref Prov traZODone (DESYREL) 100 mg tablet Take 1 tablet (100 mg total) by mouth nightly. Not In System Ref Prov Past Medical History: Patient has a past medical history of Closed fracture of transverse process of lumbar vertebra withroutine healing, COPD (chronic obstructive pulmonary disease) ([facility]), Diabetes mellitus ([facility]), Fall from height of greater than 3 feet, Hyperlipidemia, Hypertension, Neuropathy, Restless leg syndrome, Traumatic closed displaced fracture of one rib of left side with routine healing, and Traumatic pneumothorax. Past Surgical History: Patient has a past surgical history that includes Joint replacement () and Other surgical history. Family History: Patient's family history includes ALS in his brother; Diabetes in his mother and sister; Heart disease in his father and mother; Hypertension in his mother and sister; Throat cancer in his brother. Social History: Patient reports that he has been smoking cigarettes. He has a 250 pack-year smoking history. He quit smokeless tobacco use about 14 years ago. His smokeless tobacco use included chew. He reports thathe does not currently use alcohol after a past usage of about 2.0 standard drinks of alcohol per week. He reports current drug use. Frequency: 3.00 times per week. Drugs: Marijuana and Methamphetamines. Review of Systems Review of Systems Constitutional: Positive for fatigue. Negative for activity change, appetite change, chills, diaphoresis and fever. HENT: Negative for tinnitus and trouble swallowing. Eyes: Negative for visual disturbance. Respiratory: Negative for cough, chest tightness, shortness of breath and wheezing. Cardiovascular: Negative for chest pain, palpitations and leg swelling. Gastrointestinal: Negative for abdominal pain, diarrhea, nausea and vomiting. Genitourinary: Negative for difficulty urinating. Skin: Negative for rash. Neurological: Negative for dizziness, syncope, speech difficulty, weakness, light-headedness, numbness and headaches. Psychiatric/Behavioral: Positive for agitation, behavioral problems and confusion. Negative for sleep disturbance. The patient is nervous/anxious. OBJECTIVE BP (!) 151/93 Pulse 85 Temp 36.6 C (97.9 F) (Oral) Resp 22 Ht 180.3 cm (5' 11 ) Wt 75.9 kg (167 lb 6.4 oz) SpO2 94% BMI 23.35 kg/m Intake/Output Summary (Last 24 hours) at 10/15/2023 1032 Last data filed at 10/15/2023 0530 Gross per 24 hour Intake -- Output 200 ml Net -200 ml Physical Exam Physical Exam Vitals and nursing note reviewed. Constitutional: General: He is not in acute distress. HENT: Head: Normocephalic and atraumatic. Right Ear: External ear normal.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 09/13/23 No documented travel since 09/13/23 Family History Problem Relation Age of Onset Hypertension Mother Diabetes Mother Heart disease Mother Heart disease Father Diabetes Sister Hypertension Sister ALS Brother Throat cancer Brother Social History Substance and Sexual Activity Drug Use Yes Frequency: 3.0 times per week Types: Marijuana, Methamphetamines Social History Tobacco Use Smoking status: Every Day Packs/day: 5.00 Years: 50.00 Additional pack years: 0.00 Total pack years: 250.00 Types: Cigarettes Smokeless tobacco: Former Types: Chew Quit date: 09/05/2009 Substance Use Topics Alcohol use: Not Currently Alcohol/week: 2.0 standard drinks of alcohol Types: 2 Cans of beer per week Drug use: Yes Frequency: 3.0 times per week Types: Marijuana, Methamphetamines Review of Systems Constitutional: Positive for fatigue. All other systems are reviewed and are negative except as noted. Physical Exam ED Triage Vitals [10/14/23 2154] Temp Heart Rate Resp BP SpO2 36.7 C (98.1 F) 73 16 91/72 94 % Temp Source Heart Rate Source Patient Position BP Location FiO2 (%) Oral Monitor Sitting Left arm -- Vitals: 10/14/232153 BP: 91/72 Pulse: 73 Resp: 16 Temp: 36.7 C (98.1 F) TempSrc: Oral SpO2: 94% Weight: 68 kg (150 lb) Height: 180.3 cm (5' 11 ) Physical Exam Vitals and nursing note reviewed. Constitutional: Comments: Asleep on evaluation HENT: Head: Normocephalic and atraumatic. Right Ear: External ear normal. Left Ear: External ear normal. Cardiovascular: Rate and Rhythm: Normal rate and regular rhythm. Pulses: Normal pulses. Heart sounds: Normal heart sounds. Pulmonary: Effort: Pulmonary effort is normal. Breath sounds: Normal breath sounds. Rales: right lower lung base. Abdominal: General: Abdomen is flat. Palpations: Abdomen is soft. Musculoskeletal: Comments: Withdraws from pain in all four extremities but no effort to gravity Skin: General: Skin is warm and dry. Capillary Refill: Capillary refill takes less than 2 seconds. Neurological: Mental Status: Mental status is at baseline. He is disoriented. GCS: GCS eye subscore is 2. GCS verbal subscore is 2. GCS motor subscore is 4. Comments: GCS 8 Procedure Procedures Re-Evaluation Re-Evaluation ED Course ED Course as of 10/15/23 0008 Wed Oct 14, 20232231 CBC is reassuring against acute clinically significant anemia, leukocytosis, and thrombocytopenia. 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 Seems like he is nonverbal at baseline. EMS wascalled for altered mental status. Upon transport here, the EMS people said he looked like he was athis baseline mentation. On exam, he is resting comfortably, but only withdraws to pain, is nonverbal, and opens his eyes to painful stimuli. This is not a large departure from his baseline mental status. I did CT his brain as a precaution which was unremarkable. It does look like he has an aspiration pneumonia for which I am treating him with Unasyn. Since he is encephalopathic from this, would recommend observation [DW] 0005 Metabolic panel is reassuring against acute clinically significant electrolyte abnormalities, acute kidney injury, and acute liver failure. [DW] ED Course User Index [DW] Felix Cyr, DO Clinical Impressions as of 10/15/237 Aspiration pneumonia of both lower lobes, unspecified aspiration pneumonia type ([facility]) Metabolic encephalopathy MDM Medical Decision Making I, Sara Jo (scribe) documented for Dr. Cyr. Chart Reviewed. See ED course for notes Chief Complaint: Fatigue Differential Diagnosis includes but is not limited to: chronic encephalothopy, metabolic encephalotophy, pneumonia Plan of Care: Dr. Cyr will order M4RT, Magnesium, blood gas venous, CBC, CMP, Thyroid profile, Troponin I, Ethanol, POCT UA, CXR, CT brain. Pt will be given IV fluids. Labs notable for: See ED course for results Imaging was independently viewed by Dr. Cyr, see ED course for results. On re-evaluation, patient is resting comfortably in no apparent distress. Monitor notes NSR. Results were discussed. Based on the diagnostic results and physical exam, pt requires observation Amount and/or Complexity of Data Reviewed Labs: ordered. Radiology: ordered. ECG/medicine tests: ordered. Risk Prescription drug management. RESULTS Labs: Labs Reviewed CBC WITH AUTO DIFFERENTIAL - Abnormal; Notable for the following components: Result Value Monocytes Absolute 1.0 (*) All other components within normal limits COMPREHENSIVE METABOLIC PANEL - Abnormal; Notable for the following components: Glucose 108 (*) AST 44 (*) ALT 72 (*) All other components within normal limits BLOOD GAS, VENOUS - Abnormal; Notable for the following components: PCO2, Venous 53.1 (*) Portable HCO3 28.2 (*) % O2 Sat 66.0 (*) All other components within normal limits POCT NURSING URINE MACROSCOPIC UA - Abnormal; Notable for the following components: Protein SCOTT 100 (*) All other components within normal limits SARS/FLU A+B/RSV BY NAAT/MOLECULAR (M4RT COLLECTION TUBE) ETHANOL BLOOD GAS, VENOUS MAGNESIUM TROPONIN I THYROID PROFILE INCLUDES TSH FT4 POCT NURSING URINE MACROSCOPIC UA Radiology: CT brain without contrast Result Date: 10/14/2023 CT BRAIN WITHOUT CONTRAST COMPARISON: 11/15/2022 HISTORY: Transient alteration of awareness. TECHNIQUE: Unenhanced axial images of the brain were obtained. Automatic exposure control (AEC) was utilized. FINDINGS: There is no evidence for acute intracranial hemorrhage. Previously seen left subdural fluid collection has resolved. There is no hydrocephalus, mass effect, or midline shift. Jones-white differentiation is preserved with no CT evidence for an acute infarct. 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 There are multifocal areas of low-attenuation throughout the periventricular and subcortical white matter of both cerebral hemispheres which are nonspecific, but are most likely sequela of chronic small vessel ischemia. No acute fracture. IMPRESSION: No evidence for an acute intracranial process. Chronic changes detailed above. All CT scans at this facility use dose modulation, iterative reconstruction, and/or weight based dosing when appropriate to reduce radiation dose to as low as reasonably achievable. Finalized by Deo Harrison MD on 10/14/2023 11:44 PM X-ray chest 1 view Result Date: 10/14/2023 CHEST ONE VIEW COMPARISON: 11/10/2022 HISTORY: Rales over R lower chest, altered mental status. FINDINGS: Portable AP chest radiograph demonstrates interstitial and ill-defined airspace opacities at both lung bases with more focal opacity at the lateral left lung base. The cardiomediastinal silhouette and pulmonary vasculature are within normal limits. No evidence for a pneumothorax or pleural effusion. IMPRESSION: Interstitial and ill-defined airspace spaces of both lung bases with more focal nodular opacity lateral left lung base. Findings most likely sequelae of multifocal pneumonia or aspiration. Short-term follow-up PA and lateral chest radiographs in 6-8 weeks after appropriate therapyrecommended to ensure resolution of the airspace opacities. Finalized by Deo Harrison MD on 10/14/2023 11:22 PM NURSING NOTES AND VITALS REVIEWED The nursing notes within the ED encounter and vital signs as below have been reviewed. BP 109/78 Pulse 66 Temp 36.7 C (98.1 F) (Oral) Resp 15 Ht 180.3 cm (5' 11 ) Wt 68 kg (150lb) SpO2 99% BMI 20.92 kg/m PROGRESS NOTES The plan of care has been discussed with patient including today s results, in addition to providing specific details regarding counseling pertaining to the diagnosis and prognosis. All questions were answered at this time and they are agreeable with the plan ADDITIONAL PROVIDER NOTES At this time the patient has objective evidence of an acute process requiring hospitalization or inpatient management. Medications sodium chloride 0.9 % flush 3 mL (has no administration in time range) ampicillin-sulbactam (UNASYN) 3,000 mg in sodium chloride 0.9 % 100 mL IVPB (has no administration in time range) ampicillin-sulbactam (UNASYN) 3000 mg injection - Pyxis Override Pull (3,000 mg intravenous Given 10/15/23 0014) Medication List None Diagnosis: 1. Aspiration pneumonia of both lower lobes, unspecified aspiration pneumonia type ([facility]) 2. Metabolic encephalopathy Disposition: Patient's disposition: Admit Patient's condition is stable. Critical Care time: none Provider Statement By electronically signing this emergency patient record, the Emergency Physician/WAREHOUSE WORKER 2ND SHIFT/PA-C attests that all entries made into the electronic medical record by isabel Pugh prior to the Physician/WAREHOUSE WORKER 2ND SHIFT/PA-C signature reflect an accurate accounting of the evaluation and care rendered by that Elham kellycy Physician/WAREHOUSE WORKER 2ND SHIFT/PA-C. The Emergency Physician/WAREHOUSE WORKER 2ND SHIFT/PA-C assumes full responsibility for those entries. The Emergency Physician/WAREHOUSE WORKER 2ND SHIFT/PA-C also attests that any patient testing or treatment that was instituted by nursing staff in accordance to Emergency Department Preemptive Guidelines have been reviewed and unless so stated elsewhere in this patient chart, the Physician/WAREHOUSE WORKER 2ND SHIFT/PA-C agrees with the testing and care provided. Provider Statement: By electronically signing this emergency patient record, the Emergency Physician/WAREHOUSE WORKER 2ND SHIFT/PA-C attests that all entries made into the electronic medical record by the scribe prior to the Physician/WAREHOUSE WORKER 2ND SHIFT/PA-C signature reflect an accurate accounting of the evaluation and care rendered by that Emergency Physic isaias/WAREHOUSE WORKER 2ND SHIFT/PA-C. The Emergency Physician/WAREHOUSE WORKER 2ND SHIFT/PA-C assumes full responsibility for those entries. Sara Jo 10/14/23 2214 Sara Jo 10/14/23 2300 Felix Cyr DO 10/15/23 0023 documented in [facility]-2024 Miscellaneous Notes* Telephone Encounter - Dori Brantley - 10/09/2023 2:34 PM EST Received fax from Demar Trivedi from a [facility]. Patient being referred for esophageal thickening with testing. The referral is incomplete. The CT that shows esophageal thickening in Care Everywhere 09/06/2023 from [facility]. Telephoned Demar Trivedi to talk to [facility] and placed on hold. The office needs ordering provider for referral and insurance information before scheduling patient. documented in this encounterMemorial Health System02-23-2024 Telephone encounter Note* Telephone Encounter - Dori Brantley - 10/09/2023 2:34 PM EST [facility] Patient being referred for esophageal thickening with testing. The referral is incomplete. The CT that shows esophageal thickening in Care Everywhere 09/06/2023 from [facility]. Telephoned [place] to talk to [facility] and placed on hold. The office needs ordering provider for referral and insurance information before scheduling patient. [facility] Discharge instructions* Discharge Instructions* Luna Carroll DO - 09/07/2023 12:[address] scan that was done that showed some gastric distention, and follow-up is recommended with [facility]. Please follow-up as listed, return to ER for any worsening abdominal pain, or persistent vomiting [facility] Author Bobby Jacobson [facility] March 03, 2023 7:21amNote Date/TimeJuly 2022 2:16[place] [address] Hospitalist Consult Note Signed Patient: Akbar Byrnes MR#: [id number] : 1960 Acct:[id number] Age/Sex: 62 / M Adm Date: 3 Loc: Room: [address] [place] [address] Type: ADM IN Attending Dr: Devin Starks [...] Marijuana Social History Comments: mobile home with [facility] ending this last week per [...] for inhalation (Spiriva Respimat) 2 puff inhalation DAILY02/14/20 [History Confirmed 03/21/20] lisinopril 40 mg tablet [...] 226 Gm Bottle TOPICAL 03/06/23 08:59 DAILY [facility] Aspirin 81 mg 03/03/23 09:00 Aspirin 81 Mg Tablet.Dr CONKLIN 03/02/24 08:59 DAILY [facility] Atorvastatin Calcium 40 mg 03/03/23 09:00 Atorvastatin 40 Mg Tablet PO 03/06/23 08:59 DAILY [facility] Cyclobenzaprine HCl 10 mg 03/03/23 01:12 Cyclobenzaprine 10 Mg Tablet PO 03/06/23 01:11 Q6HR PRN back spasms or pain Dextrose 0 gm 03/03/23 02:02 Dextrose 50% In Water 25 Gm/50 Ml Syringe IV-PUSH 03/02/24 02:01 PRN PRN Hypoglycemia Doxycycline Hyclate 100 mg 03/03/23 09:00 Doxycycline Hyclate 100 Mg Tablet PO 03/05/23 23:59 BID [facility] Glipizide 10 mg 03/03/23 08:00 Glipizide 5 [...] Units/3 Ml Insuln.Pen SUBCUT 03/02/24 07:59 TID.WM.HS MICH Protocol Insulin Glargine 40 units 03/03/23 09:00 Insulin Glargine 300 Units/3 Ml Insuln.Pen SUBCUT 03/06/23 08:59 BID MICH Insulin Glargine 40 units 03/03/23 08:00 Insulin Glargine 300 Units/3 Ml Insuln.Pen SUBCUT 03/02/24 07:59 DAILY.WITH.BKFAST MICH Insulin Glargine 40 units 03/03/23 17:00 Insulin Glargine 300 Units/3 Ml Insuln.Pen SUBCUT 03/02/24 16:59 DAILY.WITH.SUPPER MICH Ipratropium [place] 0.5 mg 03/03/23 08:00 Ipratropium [place] 0.5 Mg/2.5 Ml Vial.Neb INHALATION 03/02/24 07:59 QID.RESP [facility] Lisinopril 2.5 mg 03/03/23 09:00 Lisinopril 2.5 Mg Tablet PO 03/06/23 08:59 DAILY [facility] Metoprolol Tartrate 25 mg 03/03/23 09:00 Metoprolol Tartrate 25 Mg Tablet PO 03/06/23 08:59 BID [facility] Quetiapine Fumarate 50 mg 03/03/23 22:00 Quetiapine Fumarate 50 Mg Tablet PO 03/06/23 21:59 QHS MICH Tamsulosin HCl 0.4 mg 03/03/23 09:00 Tamsulosin 0.4 Mg Cap.Er.24h PO 03/06/23 08:59 DAILY [facility] Exam Physical Exam Vital Signs: Temp Pulse [...] Appearance Clear, Urine pH 6.5, Ur Specific [place] 1.028, Urine Protein Trace H, Urine Glucose [...] % (Auto) 63.6, Lymph % (Auto) 27.3, Wolfe % (Auto) 6.2, Eos % (Auto) 2.3, Baso % (Auto) 0.6, Nucleat RBC Rel Count 0.2, Neut # (Auto) 5.9,Lymph # (Auto) 2.5, Wolfe # (Auto) 0.6, Eos # (Auto) 0.2, [...] thank you Documented By: Bobby Jacobson MD 03/03/23215 Signed By: <Electronically signed by Bobby Jacobson MD> 03/03/23720 [facility] Work Phone: Consult note Author Giuseppe Bailey [facility] March 03, 2023 12:59pmNote Date/TimeJuly 2022 8:29[place] [address] Pulmonology Consult Note Signed Patient: Akbar Byrnes MR#: [id number] : 1960 Acct:[id number] Age/Sex: 62 / M Adm Date: 3 Loc: Room: [address] [place] [address] Type: ADM IN Attending Dr: Devin Starks DO Copies to: NON STAFF MD Devin Sebastian,~ HPI Date/Time of Consultation: Date of Service: [...] a relatively small left-sided pneumothorax. There was subcutaneou s emphysema along the posterior left chest wall with a fracture of the third rib posteriorly. Therewas also somewhat of a reticular nodular appearance at the bases bilaterally with some borderline bronchiectatic changes. A percutaneous chest tube is placed in the emergency department without evidence of a significant pneumothorax. Incidental note on CT scan is for fractures of L1-L3 transverse processes. Note patient is a poor historian and Icannot get any history from the patient with historycoming from prior records. Review of Systems Review [...] Marijuana Social History Comments: mobile home with [facility] ending this last week per [...] for inhalation (Spiriva Respimat) 2 puff inhalation DAILY02/14/20 [History Confirmed 03/21/20] lisinopril 40 mg tablet [...] 03/02/23 CT/CT chest w con: traumatic injury ([id number]) CT/CT abdomen pelvis w con: traumatic injury ? CT CHEST, ABDOMEN AND PELVIS WITH INTRAVENOUS CONTRAST:? CLINICAL HISTORY: Fall with shortness of breath, left sided rib pain/low back pain. COMPARISON: Chest performed today. TECHNIQUE:? TECHNIQUE:? Spiral images were obtained through the chest, abdomen and pelvis followingthe administration of IV contrast.? This CT exam [...] the posterior left chest wall.? Osseous structures demonstratesno clavicular fracture involving the visualized clavicles.? No [...] disc phenomenon L5-S1 with associated air seen p osteriorly adjacent to the spinal canal.[Mildly displaced fracture involving the transverse processes of L1, L2 and L3 on the left. CT/CT chest w con IMPRESSION: ? 1. ? Small left-sided pneumothorax without mediastinal or tracheal shift to suggest tension.? Thereis associated fracture of the left third with [...] chest tube. There was no respiratory variation. Wewill continue chest tube to suction today and would consider waterseal if the patient's pneumothorax remains resolved on tomorrow morning's chest x-ray. Otherwise, continue supportive care. Documented By: Giuseppe Bailey MD 3 [id number] Signed By: <Electronically signed by MD Giuseppe Bailey> 03/03/23 3417 [facility] Work Phone: Consult note Author Joon Pascal [facility] March 04, 2023 7:31amNote Date/TimeJuly 2022 7:[place] [address] Neurosurgery Consult Note Signed Patient: Akbar Byrnes MR#: [id number] : 1960 Acct:[id number] Age/Sex: 62 / M Adm Date: 3 Loc: Room: [address] [place] [address] Type: ADM IN Attending Dr: Devin Starks DO Copies to: NON STAFF MD Devin Alexander,~ HPI History of Present Illness Consult Date: 03/03/2023 Requesting Provider: CC: Devin Starks DO Reason for Consult: Back pain History of Present Illness: 63-year-old male who fell off a trailer landing on his side. Patient denies anyhead injury or otherinjuries. Denies shortness of breath, headache, visual disturbances, or abdominal pain. Patient hadintracranial hemorrhage approximately 3 months ago. Past medical history of hypertension, COPD, diab etes, traumatic brain injury, previous lumbar compression fracture, [...] Marijuana Social History Comments: mobile home with [facility] ending this last week per [...] for inhalation (Spiriva Respimat) 2 puff inhalation DAILY02/14/20 [History Confirmed 03/21/20] lisinopril 40 mg tablet [...] intact and symmetrical Deltoid bicep tricep and dietetic technician 5/5 bilateral Upper extremity sensory normal to [...] 9.3, Neut % (Auto) 64.8, Lymph % (Auto)24.8, Wolfe % (Auto) 7.4, Eos % (Auto) 2.1, Baso % (Auto) 0.9, Nucleat RBC Rel Count 0.2, Neut # (Auto) 8.0 H, Lymph # (Auto) 3.1, Wolfe # (Auto) 0.9 H, Eos # (Auto) 0.3, Baso # (Auto) 0.1, Platelet Estimate Normal, Plt Morphology Comment Normal, RBC Morphology N/A, Polychromasia Slight, Hypochromasia Slight, Ovalocytes Slight 03/03/23 01:42: POC Glucose 312 03/02/23 21:25: Urine Color Yellow, Urine Appearance Clear, Urine pH 6.5, Ur Specific [place] 1.028, Urine Protein Trace H, Urine Glucose [...] % (Auto) 63.6, Lymph % (Auto) 27.3, Wolfe % (Auto) 6.2, Eos % (Auto) 2.3, Baso % (Auto) 0.6, Nucleat RBC Rel Count 0.2, Neut # (Auto) 5.9,Lymph # (Auto) 2.5, Wolfe # (Auto) 0.6, Eos # (Auto) 0.2, [...] side, initial encounter for closed fracture; S27.0XXA -Traumatic pneumothorax, initial encounter Status: Acute (5) Right [...] signed by MD Joon Pascal> 03/04/23 0731 [facility] Work Phone: Evaluation noteNo assessment information available [facility] Work Phone: Evaluation note* Diagnosis Generalized abdominal pain- Primary Abdominal pain, generalized documented in this encounter [facility] Diagnosis Aspiration pneumonia of both lower lobes, unspecified aspiration pneumonia type (CMS-HCC)- Primary Aspiration pneumonia of both lower lobes, unspecified aspiration pneumonia type (CMS-HCC) Metabolic encephalopathy Essential hypertension Unspecified essential hypertension Diabetic autonomic neuropathy associated with type 2 diabetes mellitus ([facility]) Type II or unspecified type diabetes mellitus with neurological manifestations, not stated as uncontrolled Chronic obstructive pulmonary disease ([facility]) Mixed hyperlipidemia Metabolic encephalopathy Altered mental status [facility] Diagnosis Vocal fold paralysis, bilateral- Primary Bilateral complete paralysis of vocal cords or larynx Toxic encephalopathy Pharyngoesophageal dysphagia Dysphagia, pharyngoesophageal phase Dysphonia Aspiration pneumonia of both lower lobes due to gastric secretions (CMS-HCC) documented [facility] this encounter [facility]* Diagnosis Recurrent aspiration pneumonia (CMS-HCC)- Primary Pneumonitis due to inhalation of food or vomitus Aspiration pneumonia of both lower lobes due to gastric secretions (CMS-[facility]) Smoking addiction Cigarette nicotine dependence, uncomplicated Chronic obstructive pulmonary disease, unspecified COPD type ([facility]) [facility] this [facility] Diagnosis Panlobular emphysema (CMS-[facility])- Primary Other emphysema documented in this [facility]* Diagnosis Vocal fold paralysis, bilateral- Primary Bilateral complete paralysis of vocal cords or larynx Dysphonia Pharyngoesophageal dysphagia Dysphagia, pharyngoesophageal phase Aspiration pneumonia of both lower lobes due to gastric secretions ([facility]) [facility] this [facility]* Diagnosis Vocal fold paralysis, bilateral- Primary Bilateral complete paralysis of vocal cords or larynx Dysphonia Pharyngoesophageal dysphagia Dysphagia, pharyngoesophageal phase documented in this [facility]* Diagnosis Learning disability- Primary Other specific developmental learning difficulties History of subdural hematoma (post traumatic) History of substance abuse ([facility]) Other, mixed, or unspecified nondependent drug abuse, unspecified documented in this encounter [facility] Author Devin Starks [facility] March 03, 2023 7:55amNote Date/TimeJuly 2022 7:49[place] [address] General Surgery H&P Signed Patient: Akbar Byrnes MR#: [id number] : 1960 Acct:[id number] Age/Sex: 62 / M Adm Date: 3 Loc: Room: [address] [place] [address] Type: ADM IN Attending Dr: Devin Starks [...] any shortness of breath. He is not havingany headache. He did not hit his head. [...] Marijuana Social History Comments: mobile home with [facility] ending this last week per [...] for inhalation (Spiriva Respimat) 2 puff inhalation DAILY02/14/20 [History Confirmed 03/21/20] lisinopril 40 mg tablet 40 mg PO DAILY htn 03/14/20 [History Confirmed 03/21/20] pregabalin 75 mg capsule 75 mg PO BID neuropathy 03/14/20 [History Confirmed 03/21/20] hydrocodone 5 mg-acetaminophen 325 mg tablet 1 tab PO Q4-6H PRN pain 14 days #70tabs 03/21/20 [Rx] doxycycline hyclate 100 mg capsule 10 mg PO BID 03/03/23 [History Confirmed 07/18/23] metoprolol tartrate 50 mg tablet mg 03/03/23 [...] is alert and oriented x2, he did notknow who the president was. That may be [...] 23:59 07:59 Intake Total 1000 / 1000 30 / 30 Output Total 500 / 500 51 / 51 Balance 500 / 500 -21 / -21 Weight 72.2 kg 63 kg [...] 9.3, Neut % (Auto) 64.8, Lymph % (Auto)24.8, Wolfe % (Auto) 7.4, Eos % (Auto) 2.1, Baso % (Auto) 0.9, Nucleat RBC Rel Count 0.2, Neut # (Auto) 8.0 H, Lymph # (Auto) 3.1, Wolfe # (Auto) 0.9 H, Eos # (Auto) 0.3, Baso # (Auto) 0.1, Platelet Estimate Normal, Plt Morphology Comment Normal, RBC Morphology N/A, Polychromasia Slight, Hypochromasia Slight, Ovalocytes Slight 03/03/23 01:42: POC Glucose 312 03/02/23 21:25: Urine Color Yellow, Urine Appearance Clear, Urine pH 6.5, Ur Specific [place] 1.028, Urine Protein Trace H, Urine Glucose [...] % (Auto) 63.6, Lymph % (Auto) 27.3, Wolfe % (Auto) 6.2, Eos % (Auto) 2.3, Baso % (Auto) 0.6, Nucleat RBC Rel Count 0.2, Neut # (Auto) 5.9,Lymph # (Auto) 2.5, Wolfe # (Auto) 0.6, Eos # (Auto) 0.2, [...] side, initial encounter for closed fracture; S27.0XXA -Traumatic pneumothorax, initial encounter Status: Acute (4) Lumbar [...] signed by DO Devin Starks> 03/03/[address] [facility] Work Phone: Hospital Discharge instructions Additional Instructions POST CATARACT SURGERY INSTRUCTIONS EYEDROPS First day (24 hours) [Ocuflox or Vigamox and Pred Forte-use 1 drop to operative eye every hour while awake.] [Artificial tears- May use 1 drop 4 times a day as needed in the surgical eye.] Next day [Ocuflox or Vigamox-continue to use the drop in the surgery eye 4 times per day for 1 week.] [Pred Forte-start using the drop in the surgery eye 4 times per day for 1 week, then taper to 3 times per day for 1 week, 2 times a day for 1 week, then once a day for 1 week.] [Artificial tears- May use 1 drop 4 times a day as needed in the surgical eye.] -Wait 5 minutes or more between using the different medications. -Please bring all your eyedrops to every follow-up visit. BATHING: You may shower, bathe, or wash her hair normally after the surgery. SUNGLASSES: Please bring sunglasses for your ride home. Some people are light- sensitive for a few weeks following surgery. Wear sunglasses for comfort. Sunglasses are not required. DUE TO ANESTHESIA: DO NOT make complex decision/sign legal documents for 24 hours after your procedure. No smoking or drinking alcohol for 24 hours. EYE RUBBING: DO NOT RUB YOUR EYE for at least 4 weeks. BLUR: Blurriness is common for several days to weeks. IRRITATION: Mild irritation or watering eye is common. MEDICATION: Continue/resume normal medications, including eye drops. Patient educated on importance of managing medication information: -Give list of medications to primary care physician. -Update information when medications are discontinued, doses are changed or new medications added. -Carry medication list with you at all times in case of emergency. Call if questions/problems occur: If you experience 1. Persistent pain/vomiting 2. Sudden worsening of your eyesight. Please call your operations boardman during normal business hours. If after business hours call Dr. Migel Zavaleta at his cell [phone] or his office [phone].[facility] Work Phone: Hospital Discharge instructionsNot on filedocumented in this encounterProCrest[facility] Health SystemInstructionsNot on filedocumented in this encounterProPromed[facility] Hospitalca Health SystemInstructionsNot on filedocumented in this encounterProCrestwood [facility] Health SystemInstructionsNot on filedocumented in this encounterProCrestwood [facility] Health SystemInstructionsNot on filedocumented in this encounterProPromedica [facility] Hospitalca Health SystemInstructionsNot on filedocumented in this encounterProPromedica [facility] Hospitalca Health SystemInstructionsNot on filedocumented in this encounterProCrestwood [facility] Health SystemInstructionsNot on filedocumented in this encounterProLancaster [facility] Hospital SystemProgress note Author Fermin Rodríguez [facility] March 03, 2023 11:48amNote Date/TimeJuly 2022 11:40[place] [id number] Progress Note Signed Patient: Akbar Byrnes MR#: [id number] : 1960 Acct:[id number] Age/Sex: 62 / M Adm Date: 3 Loc: 4C Room: 0I2707-1 Type: ADM IN Attending Dr: Devin Starks [...] the apices when examined posteriorly. His vitals appearstable. He was taken off of supplemental O2 [...] <Electronically signed by Fermin Rodríguez DO> 03/03/23 1148 [facility] Work Phone: Progress note Author Giuseppe Bailey [facility] March 04, 2023 8:11pmNote Date/TimeJuly 2022 7:26[place] [address] Pulmonology Progress Note Signed Patient: Akbar Byrnes MR#: [id number] : 1960 Acct:[id number] Age/Sex: 62 / M Adm Date: 3 Loc: 4C Room: 6Q1303-1 Type: ADM IN Attending Dr: Devin Starks [...] will follow peripherally and provide assistance as able.We will repeat CXR tomorrow to ensure there is no recurrence of the pneumothorax. Documented By: Giuseppe Bailey MD [id number] Signed By: <Electronically signed by MD Giuseppe Bailey> 03/04/232010 [facility] Work Phone: Progress note Author Devin Starks [facility] March 04, 2023 8:54amNote Date/TimeJuly 2022 8:54[place] [address] General Surgery Progress Note Signed Patient: Akbar Byrnes MR#: [id number] : 1960 Acct:[id number] Age/Sex: 62 / M Adm Date: 3 Loc: Room: [address] [place] [address] Type: ADM IN Attending Dr: Devin Starks [...] he is amenable to going to a halfway facility. He has not complained of any [...] for inhalation (Spiriva Respimat) 2 puff inhalation DAILY02/14/20 [History Confirmed 03/21/20] lisinopril 40 mg tablet [...] 100 Mg Tablet) 100 mg PO BID [facility] Stop: 03/05/23 23:59 Last Admin: 03/04/23 08:39 Dose: 100 mg Enoxaparin Sodium (Enoxaparin 40 Mg/0.4 Ml Syringe) 40 mg SUBCUT DAILY@1000 [facility] Stop: 03/02/24 09:59 Last Admin: 03/03/23 10:07 Dose: 40 mg Famotidine (Famotidine/Pf 20 Mg/2 Ml Vial) 20 mg IV-PUSH Q12HR MICH Stop: 03/02/24 08:59 Last Admin: 03/04/23 08:46 Dose: 20 mg Glipizide (Glipizide 5 Mg Tablet) 10 mg PO DAILY.8A [facility] Stop: 03/07/23 07:59 Glucose (Dextrose 40% Gel [...] Units/3 Ml Insuln.Pen) 40 units SUBCUT DAILY.WITH.BKFAST MICH Stop: 03/02/24 07:59 Last Admin: 03/04/23 08:39 Dose: Not Given Insulin Glargine (Insulin Glargine 300 Units/3 Ml Insuln.Pen) 40 units SUBCUT DAILY.WITH.SUPPER [facility] Stop: 03/02/24 16:59 Last Admin: 03/03/23 16:53 Dose: Not Given Ipratropium [place] (Ipratropium [place] 0.5 Mg/2.5 Ml Vial.Neb) 0.5 mg INHALATION QID.RESP [facility] Stop: 03/02/24 07:59 Last Admin: 03/03/23 21:40 Dose: Not Given Lisinopril (Lisinopril 2.5 Mg Tablet) 2.5 mg PO DAILY [facility] Stop: 03/06/23 08:59 Last Admin: 03/04/23 08:39 Dose: 2.5 mg Metoprolol Tartrate (Metoprolol Tartrate 25 Mg Tablet) 25 mg PO BID [facility] Stop: 03/06/23 08:59 Last Admin: 03/04/23 08:39 Dose: 25 mg Quetiapine Fumarate (Quetiapine Fumarate 50 Mg Tablet) 50 mg PO QHS [facility] Stop: 03/06/23 21:59 Last Admin: 03/03/23 21:35 Dose: 50 mg Sodium Chloride (Sodium Chloride 0.9 % 10 Ml Vial.Pf) 10 ml INJECTION PRN PRN PRN Reason: To dilute Pepcid Stop: 03/02/24 07:55 Last Admin: 03/04/23 08:46 Dose: 10 ml Tamsulosin HCl (Tamsulosin 0.4 Mg Cap.Er.24h) 0.4 mg PO DAILY [facility] Stop: 03/06/23 08:59 Last Admin: 03/04/23 08:39 [...] % (Auto) 66.9, Lymph % (Auto) 22.8, Wolfe % (Auto) 8.8, Eos % (Auto) 1.1, Baso % (Auto) 0.4, Nucleat RBC Rel Count 0.1, Neut # (Auto) 7.9 H, Lymph # (Auto) 2.7, Wolfe # (Auto) 1.0 H, Eos # (Auto) 0.1, Baso # (Auto) 0.1 03/03/23 16:32: POC Glucose 175 03/03/23 12:14: POC Glucose 338 03/03/23 09:56: Urine Color Yellow, Urine Appearance Clear, Urine pH 6.0, Ur Specific [place] 1.029, Urine Protein Trace H, Urine Glucose [...] 9.3, Neut % (Auto) 64.8, Lymph % (Auto)24.8, Wolfe % (Auto) 7.4, Eos % (Auto) 2.1, Baso % (Auto) 0.9, Nucleat RBC Rel Count 0.2, Neut # (Auto) 8.0 H, Lymph # (Auto) 3.1, Wolfe # (Auto) 0.9 H, Eos # (Auto) 0.3, Baso # (Auto) 0.1, Platelet Estimate Normal, Plt Morphology Comment Normal, RBC Morphology N/A, Polychromasia Slight, Hypochromasia Slight, Ovalocytes Slight 03/03/23 01:42: POC Glucose 312 07/17/23 21:25: Urine Color Yellow, Urine Appearance Clear, Urine pH 6.5, Ur Specific [place] 1.028, Urine Protein Trace H, Urine Glucose [...] % (Auto) 63.6, Lymph % (Auto) 27.3, Wolfe % (Auto) 6.2, Eos % (Auto) 2.3, Baso % (Auto) 0.6, Nucleat RBC Rel Count 0.2, Neut # (Auto) 5.9,Lymph # (Auto) 2.5, Wolfe # (Auto) 0.6, Eos # (Auto) 0.2, [...] Patient is amenable to transfer to a halfway facility, and I think that is definitely [...] side, initial encounter for closed fracture; S27.0XXA -Traumatic pneumothorax, initial encounter Status: Acute (4) Lumbar [...] <Electronically signed by DO Devin Starks> 03/04/23 4753 [facility] Work Phone: Progress note Author Fermin [facility] March 04, 2023 6:07pmNote Date/TimeJuly 2022 6:08pm[place] [address] Hospitalist Progress Note Signed Patient: Akbar Byrnes MR#: [id number] : 1960 Acct:[id number] Age/Sex: 62 / M Adm Date: 3 Loc: Room: [address] [place] [address] Type: ADM IN Attending Dr: Devin Starks [...] injuries he presented with. He seems to bemaintaining oxygen saturation well off of any supplementalO2. Chest tube was taken out by the patient last night and shows no pneumothorax on follow-up film. Appreciate pulmonology and general surgery recommendations. I will add I-S, PEP therapies and high-dose guaifenesin if notalready ordered. The patient's blood pressure is relatively normotensive on hishome dosing of metoprolol and lisinopril. These will be continued. Hypoglycemia last night even after his 40 units of p.m. Lantus was cut inhalf to 20 units. His A1c is quite elevated indicating likely poor compliance with his home insulinregimen. I have started the patient on 15 [...] 5 Mg Tablet PO 03/07/23 07:59 DAILY.8A [facility] Glucose 0 gm 03/03/23 02:02 Dextrose 40% [...] Ml Insuln.Pen SUBCUT 03/02/24 07:59 Not Given TID.WM.[facility] Protocol Insulin Glargine 20 units 03/04/23 22:00 Insulin Glargine 300 Units/3 Ml Insuln.Pen SUBCUT 03/03/24 21:59 [facility] Ipratropium [place] 0.5 mg 03/03/23 08:00 03/04/23 16:17 Ipratropium [place] 0.5 Mg/2.5 Ml Vial.Neb INHALATION 03/02/24 07:59 [...] <Electronically signed by Fermin Rodríguez DO> 03/04/[address] [place] [address] Work Phone: Progress note Author Devin Starks [facility] March 05, 2023 8:38amNote Date/TimeJuly 2022 8:38am[place] [address] General Surgery Progress Note Signed Patient: Akbar Byrnes MR#: [id number] : 1960 Acct:[id number] Age/Sex: 62 / M Adm Date: 3 Loc: Room: [address] [place] [address] Type: ADM IN Attending Dr: Devin Starks DO Copies to: ~ Date of Service: 03/05/2023 Subjective Subjective HPI: Patient ate to hold trays of food last night and his agitated that he wants his breakfast this morning. He will not allow nursing to do any interventions for him such as check pulse ox as he does notwant things on him. He is not having [...] for inhalation (Spiriva Respimat) 2 puff inhalation DAILY02/14/20 [History Confirmed 03/21/20] lisinopril 40 mg tablet [...] 226 Gm Bottle) 1 applic TOPICAL DAILY [facility] Stop: 03/06/23 08:59 Last Admin: 03/04/23 08:39 [...] Mg/0.4 Ml Syringe) 40 mg SUBCUT DAILY@1000 [facility] Stop: 03/02/24 09:59 Last Admin: 03/04/23 10:53 Dose: 40 mg Famotidine (Famotidine/Pf 20 Mg/2 Ml Vial) 20 mg IV-PUSH Q12HR [facility] Stop: 03/02/24 08:59 Last Admin: 03/04/23 21:39 Dose: 20 mg Glipizide (Glipizide 5 Mg Tablet) 10 mg PO DAILY.8A [facility] Stop: 03/07/23 07:59 Glucose (Dextrose 40% Gel [...] Units/3 Ml Insuln.Pen) 0 units SUBCUT TID.WM.HS [facility]; Protocol Stop: 03/02/24 07:59 Last Admin: 03/04/23 21:41 Dose: 3 units Insulin Glargine (Insulin Glargine 300 Units/3 Ml Insuln.Pen) 20 units SUBCUT QHS [facility] Stop: 03/03/24 21:59 Last Admin: 03/04/23 21:41 Dose: 20 units Ipratropium [place] (Ipratropium [place] 0.5 Mg/2.5 Ml Vial.Neb) 0.5 mg INHALATION QID.RESP [facility] Stop: 03/02/24 07:59 Last Admin: 03/04/23 20:46 Dose: 0.5 mg Lisinopril (Lisinopril 2.5 Mg Tablet) 2.5 mg PO DAILY [facility] Stop: 03/06/23 08:59 Last Admin: 03/04/23 08:39 Dose: 2.5 mg Metoprolol Tartrate (Metoprolol Tartrate 25 Mg Tablet) 25 mg PO BID [facility] Stop: 03/06/23 08:59 Last Admin: 03/04/23 23:15 Dose: 25 mg Quetiapine Fumarate (Quetiapine Fumarate 50 Mg Tablet) 50 mg PO QHS [facility] Stop: 03/06/23 21:59 Last Admin: 03/04/23 21:39 Dose: 50 mg Sodium Chloride (Sodium Chloride 0.9 % 10 Ml Vial.Pf) 10 ml INJECTION PRN PRN PRN Reason: To dilute Pepcid Stop: 03/02/24 07:55 Last Admin: 03/04/23 21:39 Dose: 10 ml Tamsulosin HCl (Tamsulosin 0.4 Mg Cap.Er.24h) 0.4 mg PO DAILY [facility] Stop: 03/06/23 08:59 Last Admin: 03/04/23 08:39 [...] % (Auto) 66.9, Lymph % (Auto) 22.8, Wolfe % (Auto) 8.8, Eos % (Auto) 1.1, Baso % (Auto) 0.4, Nucleat RBC Rel Count 0.1, Neut # (Auto) 7.9 H, Lymph # (Auto) 2.7, Wolfe # (Auto) 1.0 H, Eos # (Auto) 0.1, Baso # (Auto) 0.1 03/03/23 22:23: POC Glucose 177 03/03/23 21:48: POC Glucose 42 L* 03/03/23 16:32: POC Glucose 175 03/03/23 12:14: POC Glucose 338 03/03/23 09:56: Urine Color Yellow, Urine Appearance Clear, Urine pH 6.0, Ur Specific [place] 1.029, Urine Protein Trace H, Urine Glucose [...] Continue diet. Plan is for placement at halfway facility. Pending approval by insurance Code(s): W17.89XA - Other fall from one level to another, initial encounter Status: Acute (3) Traumatic fracture of ribs of left side with pneumothorax: Code(s): S22.42XA - Multiple fractures of ribs, left side, initial encounter for closed fracture; S27.0XXA -Traumatic pneumothorax, initial encounter Status: Acute (4) Lumbar [...] signed by DO Devin Starks> 03/05/23 0838 [facility] Work Phone: Progress note [facility] March 05, 2023 6:57pmNote Date/TimeJuly 2022 6:57pm[place] [address] Hospitalist Progress Note Signed Patient: Akbar Byrnes MR#: [id number] : 1960 Acct:[id number] Age/Sex: 62 / M Adm Date: 3 Loc: 4N Room: [address] [place] [address] Type: ADM IN Attending Dr: Devin Starks [...] general surgery recommendations. I have now added I-S, PEP therapies and high-dose guaifenesin.if not already ordered. The patient's blood pressure is relatively normotensive on his home dosing of metoprolol and lisinopril. These will be continued. Hypoglycemia last night even after his40 units of p.m. Lantus was cut in [...] 03/03/23 09:00 03/05/23 08:51 Aspirin 81 Mg Tablet.Dr PO 03/02/24 08:59 [...] 21:59 20 units QHS [facility] Administration Ipratropium [place] 0.5 mg 03/03/23 08:00 03/05/23 15:45 Ipratropium [place] 0.5 Mg/2.5 Ml Vial.Neb INHALATION 03/02/24 07:59 [...] Signed By: <Electronically signed by Fermin Rodríguez, > 03/05/23 4395 [facility] Work Phone: Progress note Author Devin Starks [facility] March 06, 2023 8:49amNote Date/TimeJuly 2022 8:43am[place] [address] General Surgery Progress Note Signed Patient: Akbar Byrnes MR#: [id number] : 1960 Acct:[id number] Age/Sex: 62 / M Adm Date: 3 Loc: Room: [address] [place] [address] Type: ADM IN Attending Dr: Devin Starks [...] for inhalation (Spiriva Respimat) 2 puff inhalation DAILY02/14/20 [History Confirmed 03/21/20] lisinopril 40 mg tablet [...] 226 Gm Bottle) 1 applic TOPICAL DAILY [facility] Stop: 03/06/23 08:59 Last Admin: 03/05/23 08:52 Dose: 1 applic Aspirin (Aspirin 81 Mg Tablet.Dr) 81 mg PO DAILY [facility] Stop: 03/02/24 08:59 Last Admin: 03/05/23 08:51 Dose: 81 mg Atorvastatin Calcium (Atorvastatin 40 Mg Tablet) 40 mg PO DAILY [facility] Stop: 03/06/23 08:59 Last Admin: 03/05/23 08:51 Dose: 40 mg Dextrose (Dextrose 50% In Water 25 Gm/50 Ml Syringe) 0 gm IV-PUSH PRN PRN PRN Reason: Hypoglycemia Stop: 03/02/24 02:01 Last Admin: 03/04/23 08:40 Dose: 25 gm Docusate Sodium (Docusate 100 Mg Capsule) 100 mg PO BID [facility] Stop: 03/02/24 08:59 Last Admin: 03/05/23 22:15 Dose: 100 mg Enoxaparin Sodium (Enoxaparin 40 Mg/0.4 Ml Syringe) 40 mg SUBCUT DAILY@1000 [facility] Stop: 03/02/24 09:59 Last Admin: 03/05/23 10:18 Dose: 40 mg Famotidine (Famotidine 20 Mg Tablet) 20 mg PO BID [facility] Stop: 03/04/24 08:59 Last Admin: 03/05/23 22:15 Dose: 20 mg Glipizide (Glipizide 5 Mg Tablet) 10 mg PO DAILY.8A [facility] Stop: 03/07/23 07:59 Glucose (Dextrose 40% Gel 15 Gm Tube) 0 gm PO PRN PRN PRN Reason: Hypoglycemia Stop: 03/02/24 02:01 Guaifenesin (Guaifenesin 600 Mg Tab.Er.12h) 1,200 mg PO BID [facility] Stop: 03/04/24 20:59 Last Admin: 03/05/23 22:14 Dose: 1,200 mg Hydromorphone HCl (Hydromorphone 1 Mg/Ml Syringe) 0.5 mg IV-PUSH Q3H PRN PRN Reason: pain Last Admin: 03/06/23 06:43 Dose: 0.5 mg Insulin Aspart (Insulin Aspart 300 Units/3 Ml Insuln.Pen) 0 units SUBCUT TID..[facility]; Protocol Stop: 03/02/24 07:59 Last Admin: 03/05/23 22:16 Dose: 8 units Insulin Glargine (Insulin Glargine 300 Units/3 Ml Insuln.Pen) 20 units SUBCUT QHS [facility] Stop: 03/03/24 21:59 Last Admin: 03/05/23 22:54 Dose: 20 units Ipratropium [place] (Ipratropium [place] 0.5 Mg/2.5 Ml Vial.Neb) 0.5 mg INHALATION QID.RESP [facility] Stop: 03/02/24 07:59 Last Admin: 03/05/23 20:13 Dose: Not Given Lisinopril (Lisinopril 2.5 Mg Tablet) 2.5 mg PO DAILY [facility] Stop: 03/06/23 08:59 Last Admin: 03/05/23 08:51 Dose: 2.5 mg Metoprolol Tartrate (Metoprolol Tartrate 25 Mg Tablet) 25 mg PO BID [facility] Stop: 03/06/23 08:59 Last Admin: 03/05/23 22:16 Dose: 25 mg Pregabalin (Pregabalin 75 Mg Capsule) 75 mg PO BID [facility] Stop: 09/01/23 12:59 Last Admin: 03/05/23 22:15 Dose: 75 mg Quetiapine Fumarate (Quetiapine Fumarate 50 Mg Tablet) 50 mg PO QHS [facility] Stop: 03/06/23 21:59 Last Admin: 03/05/23 22:15 Dose: 50 mg Tamsulosin HCl (Tamsulosin 0.4 Mg Cap.Er.24h) 0.4 mg PO DAILY [facility] Stop: 03/06/23 08:59 Last Admin: 03/05/23 08:52 [...] Heart is regular rate. He is soft-spoken butconversant. Lungs are clear. Pulse ox is 99%. [...] cognition although that has been improving, possibly secondaryto his previous head injury. No other new injuries identified. Patient is okay for transfer to halfway facility. Code(s): W17.89XA - Other fall from one level to another, initial encounter Status: Acute (3) Traumatic fracture of ribs of left side with pneumothorax: Code(s): S22.42XA - Multiple fractures of ribs, left side, initial encounter for closed fracture; S27.0XXA -Traumatic pneumothorax, initial encounter Status: Acute (4) Lumbar [...] signed by DO Devin Starks> 03/06/[address] [facility] Work Phone: progress note Author Giuseppe Bailey [facility] March 06, 2023 1:37pmNote Date/TimeJuly 2022 1:37pm[address] [address] Progress Note Signed Patient: Akbar Byrnes MR#: [id number] : 1960 Acct:[id number] Age/Sex: 62 / M Adm Date: 3 Loc: N Room: 2T6774-8 Type: ADM IN Attending Dr: Devin Starks [...] By: <Electronically signed by MD Giuseppe Bailey> 03/06/237 [facility] Work Phone: progress note Author Fermin Rodríguez [facility] March 06, 2023 4:08pmNote Date/TimeJuly 2022 4:08pm[address] [address] Hospitalist Progress Note Signed Patient: Akbar Byrnes MR#: [id number] : 1960 Acct:[id number] Age/Sex: 62 / M Adm Date: 3 Loc: 4N Room: 3A5871-6 Type: ADM IN Attending Dr: Devin Starks DO Copies to: ~ Date of Service: 03/06/2023 Subjective Subjective Narrative: I personally saw and examined patient at the bedside this afternoon. No new complaints. Now on the [facility] floor. Physical Examination: GENERAL APPEARANCE: Alert, up [...] general surgery recommendations. I have now added I-S, PEP therapies and high-dose guaifenesin.if not already ordered. The patient's blood pressure is relatively normotensive on his home dosing of metoprolol and lisinopril. These will be continued. Hypoglycemia last night even after his40 units of p.m. Lantus was cut in [...] 21:59 20 units QHS [facility] Administration Ipratropium [place] 0.5 mg 03/03/23 08:00 03/06/23 15:39 Ipratropium [place] 0.5 Mg/2.5 Ml Vial.Neb INHALATION 03/02/24 07:59 [...] 05 Signed By: <Electronically signed by Fermin Rodríguez, > 03/06/23 1731 [facility] Work Phone: Progress note Author Devin Starks [facility] March 07, 2023 12:21pmNote Date/TimeJuly 2022 12:21pm[place] [address] General Surgery Progress Note Signed Patient: Akbar Byrnes MR#: [id number] : 1960 Acct:[id number] Age/Sex: 62 / M Adm Date: 3 Loc: 4N Room: [address] [place] [address] Type: ADM IN Attending Dr: Devin Starks [...] for inhalation (Spiriva Respimat) 2 puff inhalation DAILY02/14/20 [History Confirmed 03/21/20] lisinopril 40 mg tablet [...] 100 Mg Capsule) 100 mg PO BID [facility] Stop: 03/02/24 08:59 Last Admin: 03/07/23 08:05 Dose: 100 mg Enoxaparin Sodium (Enoxaparin 40 Mg/0.4 Ml Syringe) 40 mg SUBCUT DAILY@1000 [facility] Stop: 03/02/24 09:59 Last Admin: 03/07/23 09:32 Dose: 40 mg Famotidine (Famotidine 20 Mg Tablet) 20 mg PO BID [facility] Stop: 03/04/24 08:59 Last Admin: 03/07/23 08:05 Dose: 20 mg Glucose (Dextrose 40% Gel 15 Gm Tube) 0 gm PO PRN PRN PRN Reason: Hypoglycemia Stop: 03/02/24 02:01 Guaifenesin (Guaifenesin 600 Mg Tab.Er.12h) 1,200 mg PO BID [facility] Stop: 03/04/24 20:59 Last Admin: 03/07/23 08:05 Dose: 1,200 mg Hydromorphone HCl (Hydromorphone 1 Mg/Ml Syringe) 0.5 mg IV-PUSH Q3H PRN PRN Reason: pain Last Admin: 03/07/23 10:59 Dose: 0.5 mg Insulin Aspart (Insulin Aspart 300 Units/3 Ml Insuln.Pen) 0 units SUBCUT TID.WM.HS [facility]; Protocol Stop: 03/02/24 07:59 Last Admin: 03/07/23 11:58 Dose: 4 units Insulin Glargine (Insulin Glargine 300 Units/3 Ml Insuln.Pen) 20 units SUBCUT QHS [facility] Stop: 03/03/24 21:59 Last Admin: 03/06/23 23:00 Dose: 20 units Ipratropium [place] (Ipratropium [place] 0.5 Mg/2.5 Ml Vial.Neb) 0.5 mg INHALATION QID.RESP [facility] Stop: 03/02/24 07:59 Last Admin: 03/07/23 11:09 Dose: 0.5 mg Pregabalin (Pregabalin 75 Mg Capsule) 75 mg PO BID [facility] Stop: 09/01/23 12:59 Last Admin: 03/07/23 08:05 [...] Heart is regular rate. He is soft-spoken butconversant. Lungs are clear. Pulse ox is 99%. [...] cognition although that has been improving, possibly secondaryto his previous head injury. No other new injuries identified. Patient is okay for transfer to halfway facility. That is pending approval on Thursday Code(s): W17.89XA - Other fall from one level to another, initial encounter Status: Acute (3) Traumatic fracture of ribs of left side with pneumothorax: Code(s): S22.42XA - Multiple fractures of ribs, left side, initial encounter for closed fracture; S27.0XXA -Traumatic pneumothorax, initial encounter Status: Acute (4) Lumbar [...] signed by DO Devin Starks> 03/07/23 1221 [facility] Work Phone: Progress note Author [facility] March 07, 2023 6:00pmNote Date/TimeJuly 2022 6:00pm[place] [address] Hospitalist Progress Note Signed Patient: Akbar Byrnes MR#: [id number] : 1960 Acct:[id number] Age/Sex: 62 / M Adm Date: 3 Loc: Room: [address] [place] [address] Type: ADM IN Attending Dr: Devin Starks [...] higher now that the patient is tolerating p.o.quite well. We will further increase Levemir to [...] 03/03/23 09:00 03/07/23 08:05 Aspirin 81 Mg Tablet.Dr CONKLIN 03/02/24 08:59 81 mg DAILY [facility] Administration [...] Insuln.Pen SUBCUT 03/06/24 21:59 QHS [facility] Ipratropium [place] 0.5 mg 03/03/23 08:00 03/07/23 15:31 Ipratropium [place] 0.5 Mg/2.5 Ml Vial.Neb INHALATION 03/02/24 07:59 0.5 mg QID.RESP [facility] Administration Pregabalin 75 mg 03/05/23 13:00 03/07/23 08:05 Pregabalin 75 Mg Capsule PO 09/01/23 12:59 75 mg BID [facility] Administration Documented By: Fermin Rodríguez DO 03/07/23 17 59 Signed By: <Electronically signed by Fermin Rodríguez DO> 03/07/23 1800 [facility] Work Phone: Progress note Author Devin Starks [facility] March 08, 2023 1:35pmNote Date/TimeJuly 2022 1:35pm[place] [address] General Surgery Progress Note Signed Patient: Akbar Byrnes MR#: [id number] : 1960 Acct:[id number] Age/Sex: 62 / M Adm Date: 3 Loc: 4N Room: [address] [place] [address] Type: ADM IN Attending Dr: Devin Starks [...] plate for lunch. He is not having shortnessof breath. Unchanged chest pain secondary to rib [...] for inhalation (Spiriva Respimat) 2 puff inhalation DAILY02/14/20 [History Confirmed 03/21/20] lisinopril 40 mg tablet [...] 81 Mg Tablet.Dr) 81 mg PO DAILY [facility] Stop: 03/02/24 08:59 Last Admin: 03/08/23 09:35 Dose: 81 mg Dextrose (Dextrose 50% In Water 25 Gm/50 Ml Syringe) 0 gm IV-PUSH PRN PRN PRN Reason: Hypoglycemia Stop: 03/02/24 02:01 Last Admin: 03/04/23 08:40 Dose: 25 gm Docusate Sodium (Docusate 100 Mg Capsule) 100 mg PO BID [facility] Stop: 03/02/24 08:59 Last Admin: 03/08/23 09:26 Dose: 100 mg Enoxaparin Sodium (Enoxaparin 40 Mg/0.4 Ml Syringe) 40 mg SUBCUT DAILY@1000 [facility] Stop: 03/02/24 09:59 Last Admin: 03/08/23 09:35 Dose: 40 mg Famotidine (Famotidine 20 Mg Tablet) 20 mg PO BID [facility] Stop: 03/04/24 08:59 Last Admin: 03/08/23 09:26 Dose: 20 mg Glucose (Dextrose 40% Gel 15 Gm Tube) 0 gm PO PRN PRN PRN Reason: Hypoglycemia Stop: 03/02/24 02:01 Guaifenesin (Guaifenesin 600 Mg Tab.Er.12h) 1,200 mg PO BID [facility] Stop: 03/04/24 20:59 Last Admin: 03/08/23 09:35 Dose: 1,200 mg Hydromorphone HCl (Hydromorphone 1 Mg/Ml Syringe) 0.5 mg IV-PUSH Q3H PRN PRN Reason: pain Last Admin: 03/08/23 11:28 Dose: 0.5 mg Insulin Aspart (Insulin Aspart 300 Units/3 Ml Insuln.Pen) 0 units SUBCUT TID.WM.HS [facility]; Protocol Stop: 03/02/24 07:59 Last Admin: 03/08/23 12:08 Dose: 8 units Insulin Glargine (Insulin Glargine 300 Units/3 Ml Insuln.Pen) 30 units SUBCUT QHS [facility] Stop: 03/06/24 21:59 Last Admin: 03/07/23 21:25 Dose: 30 units Ipratropium [place] (Ipratropium [place] 0.5 Mg/2.5 Ml Vial.Neb) 0.5 mg INHALATION QID.RESP [facility] Stop: 03/02/24 07:59 Last Admin: 03/08/23 11:44 Dose: 0.5 mg Pregabalin (Pregabalin 75 Mg Capsule) 75 mg PO BID [facility] Stop: 09/01/23 12:59 Last Admin: 03/08/23 09:26 [...] Heart is regular rate. He is soft-spoken butconversant. Lungs are clear. Pulse ox is 99%. [...] cognition although that has been improving, possibly secondaryto his previous head injury. No other new injuries identified. Patient is okay for transfer to halfway facility. That is pending approval on Thursday. Will start Robitussin. Add MiraLAX Code(s): W17.89XA - Other fall from one level to another, initial encounter Status: Acute (3) Traumatic fracture of ribs of left side with pneumothorax: Code(s): S22.42XA - Multiple fractures of ribs, left side, initial encounter for closed fracture; S27.0XXA -Traumatic pneumothorax, initial encounter Status: Acute (4) Lumbar [...] Status: Acute Documented By: Devin Starks DO 03/08/231333 Signed By: <Electronically signed by DO Devin Starks> 03/08/23 1335 [facility] Work Phone: Progress note Author [facility] March 08, 2023 3:17pmNote Date/TimeJuly 2022 3:17[place] [address] Hospitalist Progress Note Signed Patient: Akbar Byrnes MR#: [id number] : 1960 Acct:[id number] Age/Sex: 62 / M Adm Date: 3 Loc: 4N Room: [address] [place] [address] Type: ADM IN Attending Dr: Devin Starks [...] now that he is tolerating a diet muchbetter than previously. He initially was hypoglycemic on his home regimen on presentation and this was held. I will further uptitrate his Levemir to 50 units nightly. Reports constipation. Stool softeners and laxatives have been ordered by general surgery. I will add a dose of Relistor given he hasbeen on opiate pain control for a number [...] 03/03/23 09:00 03/08/23 09:35 Aspirin 81 Mg Tablet.Dr PO 03/02/24 08:59 [...] Insuln.Pen SUBCUT 03/06/24 21:59 QHS [facility] Ipratropium [place] 0.5 mg 03/03/23 08:00 03/08/23 11:44 Ipratropium [place] 0.5 Mg/2.5 Ml Vial.Neb INHALATION 03/02/24 07:59 0.5 mg QID.RESP [facility] Administration Methylnaltrexone [place] 12 mg 03/08/23 15:12 Methylnaltrexone [place] 12 Mg/0.6 Ml Vial SUBCUT 03/08/23 15:13 [...] <Electronically signed by Fermin Rodríguez DO> 03/08/[address] [facility] Work Phone: Reason for referral (narrative)* Consultation (Routine) - Pending ReviewSpecialtyDiagnoses / ProceduresReferred By Contact Referred To ContactNeurology Diagnoses Toxic encephalopathy Luca Méndez MD [address] [facility] [address] [place] [address] [facility] [address] [place] [address] Referral IDStatusReasonStart DateExpiration DateVisits RequestedVisits [id number] Review Specialty Services Required * Consultation (Routine) - Pending ReviewSpecialtyDiagnoses / ProceduresReferred By ContactReferred To ContactPulmonary Medicine Diagnoses Aspiration pneumonia of both lower lobes due to gastric secretions (CMS-HCC) [place]én[place] [address] [place] [address] [address] [place] [id number] [place] [address] [place] [address] [address] [place] [address] Ref[facility] DateExpiration DateVisits RequestedVisits [id number] Review Specialty Services Required * Diagnostic Imaging (Routine) - Pending ReviewSpecialtyDiagnoses / Procedures Referred By ContactReferred To Contact Diagnoses Aspiration pneumonia of both lower lobes due to gastric secretions (CMS-HCC) Procedures Fluoroscopy swallow motility function Luca Méndez MD [address] [facility] [address] [place] [address] Referral IDStatusReasonKetchum DateExpiration DateVisits RequestedVisits [id number] Review [facility] Summary Purpose Family History No Family History Records Found Relationship Condition Age at Onset Recorded Date/T tamia Not Specified Hypertension Unknown fatherHypertensionUnknownbrotherMyocardial infarctionUnknownbrotherMalignant neoplasmUnknownsisterDiabetes mellitusUnknown Relationship Condition Age at Onset Recorded Date/T tamia mother Hypertension Unknown DeceasedUnknownArthritisUnknownMalignant neoplasmUnknownfatherHypertension UnknownbrotherMyocardial infarctionUnknownbrotherMalignant neoplasmUnknownsister Diabetes mellitusUnknownHypertensionUnknown Advance Directives No Advanced Directives Records Found Advance Directive Response Recorded Date/ Time Advance Directives No February 12 9:38pm Advance Directive Response Recorded Date/ Time Advance Directives No February 12 8:38pm Code StatusDate ActivatedDate InactivatedCommentsFull Code11/10/2022 1:16 AM 11/21/2022 2:20 PMCode StatusDate ActivatedDate InactivatedCommentsFull Code 10/23/2022 9:24 PM10/30/2022 7:58 PMCode StatusDate ActivatedDate Inactivated CommentsFull Code10/15/2023 9:17 AM10/19/2023 6:39 PMCode StatusDate ActivatedDate InactivatedCommentsFull Code11/10/2022 1:16 AM11/21/2022 2:20 PMFull Code10/23/2022 9:24 PM10/30/2022 7:58 PMTypeDate RecordedPatient RepresentativeExplanationDNR Physician Order03/29/2024 1:53 PMAdvance Directive03/08/2024 8:49 PMAvanced Directive [id number] ActivatedDate InactivatedComments10/15/2023 9:17 AM 10/19/2023 6:39 PMDate ActivatedDate InactivatedComments11/10/2022 1:16 AM11/21/2022 2:20 PMDate ActivatedDate InactivatedComments10/23/2022 9:24 PM10/30/2022 7:58 PM TypeDate RecordedPatient RepresentativeExplanationDNR Physician Order03/29/2024 1:53 PMAdvance Directive03/08/2024 8:49 PMAvanced Directive [id number] ActivatedDate InactivatedComments10/15/2023 9:17 AM10/19/2023 6:39 PMDate Activated Date InactivatedComments11/10/2022 1:16 AM11/21/2022 2:20 PMDate ActivatedDate InactivatedComments10/23/2022 9:24 PM10/30/2022 7:58 PM Chief Complaint and Reason for Visit Chief Complaint FALL Chief Complaint Admit Date Cataract June 23, 2024 1 2:56pm Chief Complaint Admit Date Cataract June 23, 2024 1 2:56pm Cataract July 07, 2024 10:30am Left Cataract August 04, 2024 6:45am Chief Complaint Admit Date Left Eye Cataract December 22, 2024 1:49pm Chief Complaint Admit Date Left Eye Cataract December 22, 2024 1:49pm Left Eye Cataract December 29, 2024 7:13a m Reason for Referral SpecialtyDiagnoses / ProceduresReferred By ContactReferred To Contact Occupational Therapy Diagnoses Aspiration pneumonia of both lower lobes, unspecified aspiration pneumonia type ([facility]-HCC) Miguel Paulino, COMPLIANCE NURSE-NOTCH MACHINE OPERATOR [address], [place] [address] Referral IDStatusReasonKetchum DateExpiration DateVisits RequestedVisits [id number] Review Specialty Services Required [id number] / ProceduresReferred By ContactReferred To ContactRehabilitation Diagnoses Aspiration pneumonia of both lower lobes, unspecified aspiration pneumonia type ([facility]-HCC) Miguel Paulino, COMPLIANCE NURSE-NOTCH MACHINE OPERATOR [address], [place] [address] Referral IDStatusReasonStelbert DateExpiration DateVisits RequestedVisits [id number] Review Specialty Services Required [id number] / ProceduresReferred By ContactReferred To Contact Diagnoses Aspiration pneumonia of both lower lobes, unspecified aspiration pneumonia type (CMS-HCC) Miguel Paulino, COMPLIANCE NURSE-NOTCH MACHINE OPERATOR [address], [place] [address] Referral IDStatusReasonStart DateExpiration DateVisits RequestedVisits [id number] [id number] / Procedures Referred By ContactReferred To Contact Diagnoses Aspiration pneumonia of both lower lobes, unspecified aspiration pneumonia type ([facility]) Procedures Follow-up with primary care provider Miguel Paulino, COMPLIANCE NURSE-NOTCH MACHINE OPERATOR [address], [place] [address] Referral IDStatusReasonStart DateExpiration DateVisits RequestedVisits [id number] [id number] / Procedures Referred By ContactReferred To Contact Procedures Adult diet Miguel Paulino, COMPLIANCE NURSE-NOTCH MACHINE OPERATOR [address], [place] [address] Referral IDStatusReasonStart DateExpiration DateVisits RequestedVisits [id number] [id number] / Procedures Referred By ContactReferred To Contact Diagnoses Chronic obstructive pulmonary disease, unspecified COPD type ([facility]) Betsy Iraheta, DO [address] [address] Referral IDStatusReasonStart DateExpiration DateVisits RequestedVisits [id number] IDStatusReasonStart DateExpiration DateVisits RequestedVisits [id number] Review [id number] / ProceduresReferred By ContactReferred To ContactRadiology Diagnoses Cigarette nicotine dependence, uncomplicated Procedures CT low dose lung screening (Annual) Betsy Iraheta, DO [address] [address] Referral IDStatusReasonStart DateExpiration DateVisits RequestedVisits [id number] Review/ Additional Source Comments (unrecognized sect ion and content) No Status Records FoundNo Status Records FoundNo Status Records FoundNo Status Records FoundNo Status Records FoundNo Status Records FoundNo Status Records Found INFORMATION SOURCE (unrecogn ized section and content) DATE CREATED AUTHOR 10/25/2022 [facility] DATE CREATED AUTHOR AUTHOR'S ORGANIZ ATION 12/11/2022 [facility] DATE CREATED AUTHOR AUTHOR'S ORGANIZ ATION 09/30/2023 [facility] DATE CREATED AUTHOR AUTHOR'S ORGANIZ ATION 07/09/2024 [facility] DATE CREATED AUTHOR AUTHOR'S ORGANIZ ATION 01/19/2025 [facility] DATE CREATED AUTHOR AUTHOR'S ORGANIZ ATION 05/05/2025 [facility] DATE CREATED AUTHOR AUTHOR'S ORGANIZ ATION 05/31/2025 [facility] Care Teams (unrecognized sec tion and content) Team Status: Active Member Role Status Dates NON STAFF Primary Care Provider Active Team Status: Inactive Member Role Status Dates NON STAFF Primary Care Provider Active Start: June 23, 2024 End: June 23, 2024Veronica Callejas ProviderActive Start: June 23, 2024 End: June 23, 2024 Team Status: Active Member Role Status Dates Julius Saldaña Jr, MD Emergency Provider Active NON STAFFPrimary Care ProviderActivePaul Raudel , Admit Provider, Attending ProviderActiveTeam MemberRelationshipSpecialtyStart DateEnd Date Shaikh Villar MD PCP - GeneralInternal Medicine02/11/23 Team Status: Inactive Member Role Status Dates NON STAFF Primary Care Provider Active Start: July 07, 2024 End: July 07, 2024Veronica Callejas ProviderActive Start: July 07, 2024 End: July 07, 2024 Team Status: Inactive Member Role Status Dates NON STAFF Primary Care Provider Active Start: August 04, 2024 End: August 04, 2024Olya Madrid MDAttending ProviderActive Start: August 04, 2024 End: August 04, 2024Team MemberRelationshipSpecialtyStart DateEnd Date Shaikh Villar MD [address] [place] [address] PCP - GeneralInternal Medicine08/17/22Team MemberRelationshipSpecialtyStart Date End Date Rowdy Oswald MD [address] [place] [address] PCP - GeneralInternal [facility]10/14/23Te MemberRelationshipSpecialtyStart Date End Date Rowdy Oswald MD [address] [place] [address] [facility]/14/23Te MemberRelationshipSpecialtyStart Date End Date Rowdy Oswald MD [address] [place] [address] [facility]10/14/23Te MemberRelationshipSpecialtyStart Date End Date Rowdy Oswald MD [address] [place] [address] PCP - GeneralInternal [facility]10/14/23Te MemberRelationshipSpecialtyStart Date End Date Rowdy Oswald MD [address] [place] [address] PCP - GeneralInternal Medicine10/14/23Te MemberRelationshipSpecialtyStart Date End Date Rowdy Oswald MD [address] [place] [address] PCP - GeneralInternal Medicine10/14/23Team MemberRelationshipSpecialtyStart Date End Date Rowdy Oswald MD [address] [place] [address] PCP - GeneralInternal Medicine10/14/23Team MemberRelationshipSpecialtyStart Date End Date Rowdy Oswald MD [address] [place] [address] PCP - GeneralInternal Medicine10/14/23Team MemberRelationshipSpecialtyStart Date End Date Rowdy Oswald MD [address] [place] [address] PCP - GeneralInternal Medicine10/14/23Team MemberRelationshipSpecialtyStart Date End Date Rowdy Oswald MD [address] [place] [address] [facility] - [facility]/14/23 Team Status: Inactive Member Role Status Dates NON STAFF Primary Care Provider Active Start: December 22, 2024 End: December 22, 2024Veronica Callejas ProviderActiveStart: December 22, 2024 End: December 22, 2024 Team Status: Inactive Member Role Status Dates NON STAFF Primary Care Provider Active Start: December 29, 2024 End: December 29, 2024Veronica Callejas ProviderActiveStart: December 29, 2024 End: December 29, 2024 Goals (unrecognized section and content) Goals may be documented in a n alternate sectionGoals may be documented in an alternate sectionGoals may be documented in an alternate section Reason for Visit (unrecogniz ed section and content) ReasonCommentsAbdominal PainAbd pain ongoing since yesterday.ReasonComments FatigueSpecialtyDiagnoses / ProceduresReferred By ContactReferred To Contact Diagnoses Metabolic encephalopathy Altered mental status Aspiration pneumonia of both lower lobes, unspecified aspiration pneumonia type ([facility]) Desean Abdullahi MD [address] [place] [address] Referral IDStatusReasonStart DateExpiration DateVisits RequestedVisits [id number] SwallowingSpecialtyDiagnoses / ProceduresReferred By ContactReferred To ContactOtolaryngology Diagnoses Dysphagia, unspecified type Ref Prov, [place] [address] [facility] [address] [facility] [place] [address] Referral IDStatusReasonStart DateExpiration DateVisits RequestedVisits [id number] Review Specialty Services Required /[id number] PatientCXR: 03/08/2024FT: 04/21/2024Fluoroscopy: 05/04/2024SpecialtyDiagnoses / ProceduresReferred By ContactReferred To ContactPulmonary Medicine Diagnoses Aspiration pneumonia of both lower lobes due to gastric secretions ([facility]) Luca Méndez MD [address] [facility] [address] [place] [address] Lois Cid MD [address] [facility] [address] [place] [address] Referral IDStatusReasonStelbert DateExpiration DateVisits RequestedVisits [id number] Review Specialty Services Required /[id number]-oqJekqzhDhxfl DateCommentsSooner Appt 4ReasonCommentsVocal fold paralysisReasonCommentsNew PatientFor Toxic EncephalopathySpecialtyDiagnoses / ProceduresReferred By ContactReferred To ContactNeurology Diagnoses Toxic encephalopathy Luca Méndez MD [address] [facility] [address] [place] [address] Phone: tel: fax: [facility] [address] [place] [address] Phone: tel: fax: Referral IDStatusReasonStart DateExpiration DateVisits RequestedVisits [id number] Review Specialty Services Required / PRN Active and Recently Administ ered Medications (unrecognized section and content) Medication Order// iopamidol (ISOVUE-370) 76 % injection 75 mL (COMPLETED) 75 mL, IntraVENous, IMG ONCE PRN, 1 dose, Starting on 09/06/23 at 2210, Until 09/06/23 at 2211, Other * 2211 (Given - Provider: Shanika Klein) Medication Order///11/2023 ampicillin-sulbactam (UNASYN) 3,000 mg in sodium chloride 0.9 % 100 mL IVPB (CANCELED) 3,000 mg, intravenous, at 216 mL/hr, Administer over 30 Minutes, Every 6 hours, First dose on Mere 10/15/23 at 0600, Use within 8 hours of preparation or refrigerate for up to 48 hours, Indication: Aspiration pneumonia * 0021 (Stop Bag - Provider: Nata Camargo, SARA) * 0043 (Canceled Entry - Provider: Nata Camargo, SARA - Comment: Cancelled from back documented administration.) * 0611 (New Bag - Provider: Nata Camargo, SARA) * 0641 (Stop Bag - Provider: Inez Vera, SARA) * 1157 (New Bag - Provider: Inez Vera, RN) * 1227 (Stop Bag - Provider: Inez Vera, RN) * 1714 (New Bag - Provider: Inez Vera, RN) * 1744 (Stop Bag - Provider: Inez Vera RN) * 0032 (New Bag - Provider: Xiomara Medina RN) * 0102 (Stop Bag - Provider: Xiomara Medina RN) * 0119 (Canceled Entry - Provider: Xiomara Medina RN - Comment: Cancelled from back documented administration.) * 0514 (New Bag - Provider: Xiomara Medina RN) * 0544 (Stop Bag - Provider: Xiomara Medina RN) * 0552 (Canceled Entry - Provider: Xiomara Medina RN - Comment: Cancelled from back documented administration.) * 1132 (New Bag - Provider: Inez Vera RN) * 1202 (Stop Bag - Provider: Inez Vera RN) * 1800 (Not Given - Provider: Inez Vera RN - Reason: See Provider Order - Comment: provider changing to PO- approve no IV access) aspirin EC tablet 81 mg 81 mg, oral, Daily, First dose on Thu10/15/23 at 0900, Do not crush or chew. * 0831 (Given - Provider: Inez Vera RN) * 0800 (Given - Provider: Inez Vera RN) * 0945 (Given - Provider: Amy Teran, SARA) clonazePAM (KlonoPIN) tablet 0.5 mg 0.5 mg, oral, 2 times daily, First dose on Thu10/18/23 at 2345, Look-alike/sound-alike medication - verify indication for use. * 0014 (Given - Provider: Xiomara Medina RN) * 0945 (Given - Provider: Amy Teran, SARA) divalproex (DEPAKOTE) EC tablet 250 mg 250 mg, oral, 3 times daily, First dose on Thu10/19/23 at 0000, HAZARDOUS - Handle with care. Look-alike/sound-alike medication - verify indication for use. Do not crush or chew. * 0000 (Not Given - Provider: Xiomara Medina RN - Reason: Medication not available) * 0600 (Not Given - Provider: Xiomara Medina RN - Reason: Medication not available) * 1400 (Due) escitalopram (LEXAPRO) tablet 5 mg 5 mg, oral, Daily, First dose on Thu10/16/23 at 1200, Look-alike/sound-alike medication - verify indication for use. * 0900 (Given - Provider: Inez Vera RN) * 0900 (Given - Provider: Inez Vera RN) * 0945 (Given - Provider: Amy Teran, RN) insulin lispro (HumaLOG) injection 2-10 Units 2-10 Units, subcutaneous, 3 times daily with meals, First dose on Mere 10/15/23 at 0800, Daytime hyperglycemia dosing. For blood glucose 151-200 mg/dL, give 2 units. For blood glucose 201-250 mg/dL, give 4 units. For blood glucose 251-300 mg/dL, give 6 units. For blood glucose 301-350 mg/dL, give 8 units. For blood glucose 351-400 mg/dL, give 10 units. Give even if NPO or meals skipped. Do NOT givemore often then every 4 hours when NPO. Notify prescriber if blood glucose greater than 400 mg/dL. Look-alike/sound-alike medication - verify indication for use. Prime with 2 units of insulin prior to administration. Prandial/supplemental Insulin. Pre-filled pens stable 28 days at room temperature.Insulin lispro should be administered within 15 minutes before or immediately after a meal. * 0800 (Hold - Provider: Inez Vera RN - Reason: Order parameters not met - Comment: blood glucose 124) * 1155 (Given - Provider: Inez Vera RN) * 1703 (Given - Provider: Inez Vera RN) * 0801 (Given - Provider: Inez Vera RN) * 1137 (Given - Provider: Inez Vera RN) * 1705 (Given - Provider: Inez Vera, SARA) * 0945 (Given - Provider: Amy Teran, RN) * 1228 (Given - Provider: Amy Teran, SARA) insulin lispro (HumaLOG) injection 2-8 Units 2-8 Units, subcutaneous, Nightly, First dose on Mere 10/15/23 at 2200, Bedtime hyperglycemia dosing. For blood glucose 201-250 mg/dL, give 2 units. For blood glucose 251-300 mg/dL, give 4 units. For blood glucose 301-350 mg/dL, give 6 units. For blood glucose 351-400 mg/dL, give 8 units. Give even ifNPO or meals skipped. Do NOT give more often then every 4 hours when NPO. Notify prescriber if blood glucose greater than 400 mg/dL. Look-alike/sound-alike medication - verify indication for use. Prime with 2 units of insulin prior to administration. Prandial/supplemental Insulin. Pre-filled pens stable 28 days at room temperature. Insulin lispro should be administered within 15 minutes before orimmediately after a meal. * 220 (Given - Provider: Xiomara Medina RN - Comment: BS - 251) * 214 (Given - Provider: Xiomara Medina RN - Comment: BS - 235) ipratropium-albuteroL (DUONEB) 0.5 mg-3 mg(2.5 mg base)/3 mL nebulizer solution 3 mL 3 mL, nebulization, Every 6 hours, First dose on Thu10/17/23 at 2000, Implement INPATIENT/ED Bronchodilator Clinical Practice Guidelines? Yes, Document: [email or web address]\Respiratory Care Guidelines\CPG Bronchodilator 2020.pdf * 1908 (Given - Provider: Lindsey Hooper RN) * 0103 (Given - Provider: Sindi Cope RCP) * 0741 (Given - Provider: Mara Ospina RCP) * 1300 (Given - Provider: Mara Ospina RCP) * 1912 (Given - Provider: Sindi Cope RCP) * 0140 (Given - Provider: Sindi Cope RCP) * 0743 (Given - Provider: Lashae Meyer RCP) * 1416 (Given - Provider: Lashae Meyer RCP) levoFLOXacin (LEVAQUIN) tablet 500 mg 500 mg, oral, Every 24 hours, First dose on Thu10/19/23 at 2200, For 7 doses, Food-Drug Interaction Education Required Look-alike/sound-alike medication - verify indication for use May alter bloodglucose or insulin requirements Avoid giving within 2 hours before or after antacids, or products containing zinc or iron Take on empty stomach at least 1 hour before or 2 hours after meals Enteral Feeding Instructions: Hold tube feedings for ONE hour before and TWO hours after administration Do NOT give any oral form (tablet, suspension) through j- tube, Specific Use Criteria: Community-acquired pneumonia, beta-lactam allergy, Fluoroquinolones contain FDA Black Box warnings. Due to safety concerns, avoid use in acute bacterial sinusitis, acute bacterial exacerbation of chronic bronchitis, or acute uncomplicated cystitis if possible. Use alternative treatment if available. I acknowledge the Black Box warnings of fluoroquinolones. * 2100 (Canceled Entry - Provider: Xiomara Medina RN) levoFLOXacin (LEVAQUIN) tablet 500 mg (COMPLETED) 500 mg, oral, Once, On 10/18/23 at 2315, For 1 dose, Dose for 3/3 until BID order can be clarified Food-Drug Interaction Education Required Look-alike/sound-alike medication - verify indicationfor use May alter blood glucose or insulin requirements Avoid giving within 2 hours before or after antacids, or products containing zinc or iron Take on empty stomach at least 1 hour before or 2 hours after meals Enteral Feeding Instructions: Hold tube feedings for ONE hour before and TWO hours after administration Do NOT give any oral form (tablet, suspension) through j-tube, Specific Use Criteria: Community- acquired pneumonia, beta-lactam allergy, Fluoroquinolones contain FDA Black Box warnings. Due to safety concerns, avoid use in acute bacterial sinusitis, acute bacterial exacerbation ofchronic bronchitis, or acute uncomplicated cystitis if possible. Use alternative treatment if available. I acknowledge the Black Box warnings of fluoroquinolones., Indications: bacterial pneumonia * 2327 (Given - Provider: Xiomara Medina RN) lisinopriL (PRINIVIL,ZESTRIL) tablet 20 mg 20 mg, oral, Daily, First dose on 10/18/23 at 2345, Look-alike/sound-alike medication - verify indication for use. * 0014 (Given - Provider: Xiomara Medina RN) metoprolol (LOPRESSOR) injection 5 mg (COMPLETED) 5 mg, intravenous, Once, On 10/17/23 at 0100, For 1 dose, Look-alike/sound-alike medication - verify indication for use. * 0155 (Given - Provider: Xiomara Medina RN) OLANZapine (ZyPREXA) tablet 5 mg 5 mg, oral, Nightly, First dose on Thu10/16/23 at 2200, Look-alike/sound-alike medication - verify indication for use. * 2207 (Given - Provider: Xiomara Medina RN) * 214 (Given - Provider: Xiomara Medina RN) umeclidinium (INCRUSE ELLIPTA) 62.5 mcg/actuation inhaler 1 puff 1 puff, inhalation, Daily, First dose on Thu10/15/23 at 1000, Do not shake inhaler. * 1725 (Given - Provider: Mara Ospina RCP) * 0743 (Given - Provider: Mara Ospina RCP) * 0945 (Given - Provider: Amy Teran RN) Medication Order/////11/2023 acetaminophen (TYLENOL) tablet 650 mg 650 mg, oral, Every 4 hours PRN, temperature greater than 38 C, mild pain - pain scale 1-3, headaches, Starting on Thu10/15/23 at 0226, [Warning: Total Acetaminophen not to exceed more than 4 grams (4000 mg) in 24 hours] * 0218 (Given - Provider: Xiomara Medina RN) alum-mag hydroxide-simeth (MAALOX) 200-200-20 mg/5 mL suspension 30 mL 30 mL, oral, 4 times daily after meals and at bedtime as needed, dyspepsia, Starting on Thu10/15/23at 0226, Look-alike/sound-alike medication - verify indication for use. Shake well., Indications: dyspepsia barium sulfate (E-Z-DISK) tablet 700 mg 700 mg, oral, Once in imaging, contrast, contrast, Starting on Thu10/19/23 at 0800, For 1 dose barium sulfate (E-Z-HD) 98 % suspension 340 g 340 g, oral, Once in imaging, contrast, contrast, Starting on Thu10/19/23 at 0800, For 1 dose barium sulfate (E-Z-PAQUE) 96 % (w/w) powder 176 g 176 g, oral, Once in imaging, contrast, contrast, Starting on Thu10/19/23 at 0800, For 1 dose barium sulfate (E-Z-PASTE) 60 % oral cream 454 g 454 g, oral, Once in imaging, contrast, contrast, Starting on Thu10/19/23 at 0800, For 1 dose barium sulfate (LIQUID E-Z PAQUE) 60 % (w/v) suspension 355 mL 355 mL, oral, Once in imaging, contrast, contrast, Starting on Thu10/19/23 at 0800, For 1 dose barium sulfate (LIQUID POLIBAR PLUS) 105 % (w/v), 58 % (w/w) suspension 300 mL 300 mL, oral, Once in imaging, contrast, Liquid Polibar plus, Starting on Thu10/19/23 at 0800, For 1dose barium sulfate (VARIBAR HONEY) 40 % (w/v) 29% (w/w) suspension 250 mL 250 mL, oral, Once in imaging, contrast, contrast, Starting on Thu10/19/23 at 0800, For 1 dose barium sulfate (VARIBAR NECTAR) 40 % (w/v) suspension 240 mL (COMPLETED) 240 mL, oral, Once in imaging, contrast, contrast, Starting on Thu10/19/23 at 0800, For 1 dose * 0940 (Given - Provider: CHEPE Powers) barium sulfate (VARIBAR PUDDING) 40 % (w/v), 30% (w/w) oral paste 230 mL (COMPLETED) 230 mL, oral, Once in imaging, contrast, contrast, Starting on Thu10/19/23 at 0800, For 1 dose * 0940 (Given - Provider: CHEPE Powers) barium sulfate (VARIBAR THIN HONEY) 40 %(w/v), 29% (w/w)(1500 CPS) suspension 250 mL (COMPLETED) 250 mL, oral, Once in imaging, contrast, contrast, Starting on Thu10/19/23 at 0800, For 1 dose * 0940 (Given - Provider: CHEPE Powers) barium sulfate (VARIBAR THIN) 81 % (w/w) powder 148 g (COMPLETED) 148 g, oral, Once in imaging, contrast, contrast, Starting on Thu10/19/23 at 0800, For 1 dose * 0940 (Given - Provider: CHEPE Powers) bisacodyL (DULCOLAX) suppository 10 mg 10 mg, rectal, As needed, constipation, Starting on Mere 2/29/24 at 0229, Look-alike/sound-alike medication - verify indication for use. dextrose (GLUTOSE) 40 % gel 15 g 15 g, oral, As needed, low blood sugar, blood glucose less than 70 mg/dL, Starting on Thu10/15/23 at 0226, If patient conscious and taking PO. If blood glucose is not greater than 70 mg/dL after initial treatment, repeat treatment. dextrose 50 % in water (D50W) 50% solution 25 mL 25 mL, intravenous, As needed, low blood sugar, blood glucose less than 70 mg/dL and unconscious orNPO with IV access, Starting on Thu10/15/23 at 0226, Push over 1-3 minutes STAT. If conscious and not NPO, immediately follow with meal tray or high protein (7 grams) snack if tray not available. If NPO, initiate 5% dextrose in water at 100 mL/hr and contact prescriber for additional orders. If blood glucose is not greater than 70 mg/dL after initial treatment, repeat treatment. VESICANT (RED) Warning: HYPERTONIC solution. diphenhydrAMINE (BENADRYL) injection 50 mg 50 mg, intravenous, Every 6 hours PRN, sleep, Starting on Thu10/16/23 at 1306, Look-alike/sound-alike medication - verify indication for use. * 0319 (Given - Provider: Nata Camargo, SARA) * 1713 (Given - Provider: Inez Vera, SARA) * 0613 (Given - Provider: Xiomara Medina RN) * 1219 (Given - Provider: Inez Vera, SARA) glucagon HCL injection 1 mg 1 mg, intramuscular, As needed, low blood sugar, blood glucose less than 70 mg/dL and unconscious or NPO without IV access., Starting on Thu10/15/23 at 0226, If conscious and not NPO, immediately follow with meal tray or high protein (7Grams) snack if tray not available. If NPO, initiate IV 5% Dextr ose/Water at 100 mL/hr and contact prescriber for additional orders. If blood glucose is not greater than 70 mg/dL after initial treatment, repeat treatment. haloperidol lactate (HALDOL) injection 5 mg 5 mg, intravenous, Every 6 hours PRN, agitation, Starting on Thu10/16/23 at 1208, IV Haldol requiresmonitored bed * 0318 (Given - Provider: Nata Camargo RN) * 1710 (Canceled Entry - Provider: Inez Vera RN - Comment: Pt does not have tele order- tele ismandatory for this med) hydrALAZINE (APRESOLINE) injection 20 mg (CANCELED) 20 mg, intravenous, Every 6 hours PRN, high blood pressure, Starting on Mere 10/15/23 at 1647, For systolic blood pressure greater than 160mmHg Look-alike/sound-alike medication - verify indication foruse. Administer IV doses as a slow IV push; maximum rate: 5 mg/minute. * 1157 (Given - Provider: Inez Vera RN) * 2006 (Given - Provider: Xiomara Medina RN) * 0757 (Given - Provider: Inez Vera RN) hydrALAZINE (APRESOLINE) tablet 25 mg 25 mg, oral, Every 6 hours PRN, For SBP >160, Starting on 10/18/23 at 2345, Look-alike/sound-alike medication - verify indication for use. * 0228 (Given - Provider: Xiomara Medina RN) hydrOXYzine (ATARAX) tablet 25 mg 25 mg, oral, 3 times daily PRN, itching, Starting on 10/18/23 at 1719, Look-alike/sound-alike medication - verify indication for use. * 0228 (Given - Provider: Xiomara Medina RN) magnesium sulfate IVPB 2000 mg/50 mL in iso-osmotic water (40 mg/mL premix) 2,000 mg, intravenous, at 25 mL/hr, Administer over 120 Minutes, As needed, Magnesium level 1.7 to 1.9 mg/dL, or Ionized Magnesium level 0.45 to 0.5 mmol/L., Starting on Mere 10/15/23 at 0226, Recheck magnesium level 4 hours after infusion complete. With each magnesium result continue the replacementorders as needed. magnesium sulfate IVPB 4000 mg/100 mL in iso-osmotic water (40 mg/mL premix) 4,000 mg, intravenous, at 25 mL/hr, Administer over 240 Minutes, As needed, Magnesium level 1.6 mg/dL or less, or Ionized Magnesium level 0.44 mmol/L or less, Starting on Thu10/15/23 at 0226, Recheckmagnesium level 4 hours after infusion complete. With each magnesium result continue the replacement orders as needed. ondansetron ODT (ZOFRAN ODT) disintegrating tablet 4 mg 4 mg, buccal, Every 6 hours PRN, nausea, vomiting, Starting on Thu10/15/23 at 0226 potassium chloride IVPB 10 mEq/100 mL in water (0.1 mEq/mL premix) 10 mEq, intravenous, at 100 mL/hr, Administer over 60 Minutes, As needed, POTASSIUM REPLACEMENT, Starting on Thu10/15/23 at 022, Potassium level 3 mmol/L or less administer Potassium Chloride 50 mEqPotassium level 3.1 to 3.3 mmol/L administer Potassium Chloride 40 mEq Potassium level 3.4 to 3.8 mmol/L administer Potassium Chloride 30 mEq Use central line when applicable. Recheck potassium level1 hour after total IVPB infusion complete With each potassium result continue the replacement orders as needed VESICANT (YELLOW) Infuse each 10 mEq over a minimum of 1 hour., Indications: hypokalemia sennosides-docusate sodium (SENOKOT-S) 8.6-50 mg 1 tablet 1 tablet, oral, Every 12 hours PRN, constipation, Starting on Thu10/15/23 at 0226 sodium chloride 0.9 % flush 3 mL 3 mL, intravenous, As needed, line care, before and after each intermittent use, Starting on Thu10/14/23 at 2211 sodium chloride 0.9 % infusion 10 mL/hr, intravenous, Continuous PRN, to maintain patency of lines, Starting on Thu10/15/23 at 0226 * 0026 (Restarted - Provider: Nata Camargo, SARA) * 0039 (Stop Bag - Provider: Nata Camargo, SARA) * 0606 (New Bag - Provider: Nata Camargo, SARA) * 0606 (Paused - Provider: Xiomara Medina, SARA) * 0608 (Paused - Provider: Xiomara Medina, SARA) * 0608 (Restarted - Provider: Xiomara Medina RN) * 0611 (Paused - Provider: Xiomara Medina RN) * 0647 (Restarted - Provider: Xiomara Medina RN) * 0647 (Stop Bag - Provider: Xiomara Medina RN) FOR RECORDS PERTAINING TO PATIENTS WHO ARE [...] BE BASED ON THE PRIMARY CLINICAL RECORDS. [facility] [employer] provides no warranty or guarantee of the accuracy or completeness of information in this document.
--- NOTE | 2025-06-08 12:29 | CA_ITS ---
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 Interpretive Statements Summary of the findings: Right leg: SEAN= 1.05; TBI= 0.79. Doppler waveforms demonstrate monophasic flow at the posterior tibial and dorsalis pedis arteries. Left leg: SEAN= 0.82; TBI= 0.63. Doppler waveforms demonstrate monophasic flow at the posterior tibial and dorsalis pedis arteries. Segmental pressures: Segmental pressures suggest significant femoropopliteal disease bilaterally. Pulse volume recordings: PVRs dampened waveforms at the ankle levels. Conclusion: Right and left ankle-brachial indices are suggestive of normal right and reduced left overall arterial flow at rest. Toe-brachial indices are suggestive of PAD. Segmental pressures suggest significant femoropopliteal disease bilaterally. The study shows evidence of PAD with reduced left sided overall arterial flow at rest. Electronically Signed On 06-08-2025 19:41:12 EDT by JOANNE DE LEON M.D.
== END 2025-06-08 12:04 | disposition home or self-care (01) ==
LOC: CARD 12:03
PROVIDERS: PCP Internal Medicine; Visit Provider Physician Assistant
DX: R09.89 Other specified symptoms and signs involving the circulatory and respiratory systems (principal)
CPT/HCPCS: 93923

== ENCOUNTER 2025-06-29 14:10 | Outpatient (OUT) | payer MEDICAID, SELFPAY ==
--- OUTSIDE RECORDS SUMMARY | 2025-06-29 14:15 | XMS_ITS | Clinical Summary ---
Author Organization [employer] [facility] Address [id number] [place] [address] Care Team Providers Care Qa Tester Name Role Phone Daniel Oswald MD Primary Care Provider Allergies No known active allergies Medications MedicationSigDispense [...] 07/01/2024ctive FREESTYLE ALYSHA 2 READER misc 05/19/2024ctive Nexthink ALYSHA 2 SENSOR kit 06/23/2024ctive prednisoLONE acetate (PRED FORTE) 1 % ophthalmic suspension 07/04/2024ctive ofloxacin (OCUFLOX) 0.3 % ophthalmic solution 07/04/2024ctive divalproex (DEPAKOTE ER) 250 mg 24 hr tablet Take 1 tablet (250 mg total) by mouth in the morning and at bedtime.Active Active Problems ProblemNoted DateDiagnosed DateRecurrent aspiration qqjioppan60/29/2024Metabolic igevmkqtiiuiyf06/29/2024ltered mental ierxed3410/15/2023Traumatic closed displaced fracture of one rib of left side with routine ksdxlbv9204/15/2023 Overview (04/15/2023): 3rd rib Closed fracture of transverse process of lumbar vertebra with routine healing 04/15/2023 Overview (04/15/2023): L1-3 Subdural /26/2023Subdural kyaxlrtp74/09/2023Narcotic use agreement itatuu8303/13/2020Closed compression fracture of second lumbar iaanenze05/08/2020 Need for immunization against guaxjqxra81/17/2020Need for prophylactic vaccination against Streptococcus pneumoniae (pneumococcus)10/03/2019Smoking vyfuskfch64/07/2020Chronic obstructive pulmonary clmpmjd6409/22/2019Mixed skiilxqgwdrvqz93/06/2020Essential rlzokyfjiwid33/13/2020Diabetic autonomic neuropathy associated with type 2 diabetes vscctapx85/13/4163Mjleegi38/13/2020 Annual physical exam08/29/2019 Resolved Problems ProblemNoted DateDiagnosed DateResolved DateTraumatic qtawbzxhtqdc27/30/2023 04/15/2023Fall from height of greater than 3 feet/cute subdural vynwkcyl88/8147Hvjxrplm92Vomiting and yhnxbxwx006394Qlbeuttdelvryin84/29/202009/15/2020Uncontrolled type 2 diabetes mellitus with krmbiovmqolra18 Encounters DateTypeDepartmentCare TizrPdolmdlzkag30/17/2025 4:01 PM EDT - 05/04/2025 12:04 AM EDTEmergency [facility] [address] [place] [address] Sury Ortiz, DO Fall, initial encounter (Primary Dx); Neck pain; Hyperglycemia Discharge Disposition: Home05/03/2025Travelfrom Last 3 Months Immunizations ImmunizationAdministration DatesNext DueCOVID-19, mRNA, LNP-S, PF, 100mcg/0.5mL Dose11/19/2021Influenza, Injectable, quadrivalent (PF)05/29/2021,07/30/2020, 09/28/2019Pneumococcal Conjugate 13-Vhzwaf9209/28/2019,04/13/2017Pneumococcal Akuepxqsngtadl52/13/6153Ijyq03/20/2025,11/01/2020 Family History Medical HistoryRelationNameCommentsALSBrother 1Throat cancerBrother 2Heart diseaseFatherDiabetesMotherHeart diseaseMotherHypertensionMotherDiabetesSister HypertensionSisterRelationNameStatusCommentsBrother 1Deceased (Age 65)Brother 2 DeceasedBrother 3AliveFatherDeceasedself inflicted gun shotMotherDeceased (Age 86)SisterAlive Social History Tobacco UseTypesPacks/DayYears UsedDateSmoking Tobacco: Every DayCigarettes1.9 52.9Started: 1973Smokeless Tobacco: CurrentChew Tobacco Cessation:Ready to Q uit: Not Asked; Counseling Given: Not Answered Alcohol UseStandard Drinks/WeekCommentsNot Currently2 (1 standard drink = 0.6 oz pure alcohol)[facility] UtilitiesAnswerDate RecordedIn the past 12 months has the [employer], gas, oil, or water [employer] threatened to shut off services in your home?No10/15/2023HQ-2AnswerDate RecordedTotal Gqamn663/20/2024PRAPARE - TransportationAnswerDate RecordedIn the past 12 months, [...] a part of a household?No10/15/2023hildcareAnswerDate RecordedChildcareUnknown 01/26/2019EmploymentAnswerDate UqjjnugjWlijxrkmlqMaxcfrw95/12/2019Hunger ScreeningAnswerDate RecordedWithin the past 12 months we worried whether our food would run out before we got money to buy more.Never True05/03/2025Within the past 12 months the food we bought just didn't last and we didn't have money to get more.Never True05/03/2025Purpose - LifeAnswerDate RecordedPurpose and direction in kkyoVktokpr52/12/2021ex and Gender InformationValueDate Recorded Sex Assigned at BirthNot on fileLegal MwxYtay5603/22/2015 11:23 AM EDTGender IdentityNot on fileSexual OrientationNot on file Last Filed Vital Signs Vital SignReadingTime TakenCommentsBlood Kfifjvfe579/6096105/03/2025 11:57 PM EDT Rqsoq706705/03/2025 11:57 PM VKKJilrhmflpaj54.8 ??C (98.2 ??F)05/03/2025 4:04 PM EDTRespiratory Wmzf929705/03/2025 11:57 PM EDTOxygen Btdxqfoffl54%05/03/2025 11:57 PM EDTInhaled Oxygen Concentration--Tdtsry52.2 kg (190 lb)05/03/2025 4:04 PM EDT Qpvptx662.3 cm (5' 11 )05/03/2025 4:04 PM EDTBody Mass Index26. 4:04 PM EDT Plan of Treatment Health MaintenanceDue DateLast DoneCommentsDiabetic Ophthalmology Exam1960 Statin Use: Shfrnjxg90/19/1961Tobacco Hncfkubkmf11/19/1961dult BMI Follow Up Plan1978Diabetic Foot Exam11/02/19788170Atnmzwydgqa31/19/2006Zoster (Shingles) Vaccine (1 of 2)2010RSV ( or age 60+ yrs) (1 - Risk 60-74 years 1- dose series)2020OVID-19 Vaccine (2 - season)/12/2021 Influenza Xezkzhx57/, 07/30/2020, 09/28/2019Depression Gnznomkvz10/dult BMI Wwqmoiiqb20Tobacco Tnzdsbkpl21DTaP,Tdap and Td Vaccines (3 - Td or Tdap) , 11/01/2020 Goals GoalPatient Goal TypeAssociated ProblemsRecent ProgressPatient-Stated?Author per pt sister Delma[facility] Note: Evaluation of progress towards goal: under assessment Medical Devices Not on file Procedures Procedure NamePriorityDate/TimeAssociated DiagnosisCommentsER EXTRA URINE MARBLE STAT05/03/2025 6:06 PM EDT ER EXTRA URINE CQGKVCABJEX82/17/2025 6:06 PM EDT ER EXTRA IKYMUBIXB40/17/2025 6:06 PM EDT POCT NURSING URINE MACROSCOPIC NMGpwbejb37/17/2025 6:[address] ABDOMEN AND PELVIS WO YNBUYUFX40/17/2025 5:[address] CHEST WO TGXOCORE63/17/2025 5:44 PM EDT TROP I, HIGH SENSITIVITY 1 NKWJQLTW94/17/2025 5:[address] CERVICAL SPINE WO JVRNZHTZ70/17/2025 5:[address] BRAIN WO CBOSYDGU17/17/2025 5:37 PM EDT EXTRA TUBES BLUE ENCEicvtxj43/17/2025 4:40 PM EDT EXTRA JRXCQRjyexrj57/17/2025 4:40 PM EDT TROPONIN I, HIGH SENSITIVITY 0 OFAUCQUU57/17/2025 4:40 PM EDT TROPONIN I, HIGH SENSITIVITY 0 IVXVVGPE77/17/2025 4:40 PM EDT CDGVMTZMCT74/17/2025 4:40 PM EDT COMPREHENSIVE METABOLIC EHKMKAESW64/17/2025 4:40 PM EDT CBC WITH AUTO JVIQEEMAKRRAKTNG77/17/2025 4:40 PM EDT from Last 3 Months Results * Extra Urine Arona (05/03/2025 6:06 PM EDT)ComponentValueRef RangeTest Method Analysis TimePerformed AtPathologist SignatureExtra TubeAuto Resulted 05/03/2025 8:02 PM EDTPCLEVELAND CLINIC HILLCREST HOSPITALpecarchbold - [facility] (Source) Anatomical Location / LateralityCollection Method / VolumeCollection Time Received TimeUrineUrine specimen collection, clean catch / Kfqcwid2205/03/2025 6:06 PM EDT05/03/2025 6:40 PM EDT Narrative Authorizing ProviderResult TypeResult StatusAlisa Radha Ortiz DOURINE ORDERABLES Final ResultPerforming OrganizationAddressCity/State/ZIP CodePhone Number [facility] [address] [place] [address], * Extra Urine Culture (05/03/2025 6:06 PM EDT)ComponentValueRef RangeTest Method Analysis TimePerformed AtPathologist SignatureExtra TubeAuto Resulted 05/03/2025 8:02 PM EDTPOhioHealth Van Wert Hospital (Source) Anatomical Location / LateralityCollection Method / VolumeCollection Time Received TimeUrineUrine specimen collection, clean catch / Nnmakwm9705/03/2025 6:06 PM EDT05/03/2025 6:40 PM EDT Narrative Authorizing ProviderResult TypeResult StatusSury DAWSON ORDERABLES Final ResultPerforming OrganizationAddressty/State/ZIP CodePhone Number [address] [place] [address], [place] * Extra Urine (05/03/2025 6:06 PM EDT)ComponentValueRef RangeTest MethodAnalysis TimePerformed AtPathologist SignatureExtra TubeAuto Autugigd64/17/2025 8:02 PM EDUPPER VALLEY MEDICAL CENTERpecimen (Source)Anatomical Location / LateralityCollection Method / VolumeCollection TimeReceived TimeUrineUrine specimen collection, clean catch / Xlotbjb6905/03/2025 6:06 PM EDT05/03/2025 6:40 PM EDT Narrative Authorizing ProviderResult TypeResult StatusSury DAWSON ORDERABLES Final ResultPerforming OrganizationAddressty/State/[facility] CodePhone Number [address] [place] [address], [place] * (ABNORMAL) POCT Nursing Urine Macroscopic UA (05/03/2025 6:03 PM EDT)Component ValueRef RangeTest MethodAnalysis TimePerformed AtPathologist SignatureSOUTHWESTERN [facility] Urine Specific Gravity1.0151.010, 1.015, 1.020, 1.6303505/03/2025 6:06 PM EDT [facility] Urine Leukocyte EsteraseNegative Kwzsqnph21/17/2025 6:06 PM EDCOMMUNITY [facility]IONAL [facility] Urine TrzednhXuwcfeuaGdbahnkr43/17/2025 6:06 PM [facility] Urine pH6.55.0, 6.0, 6.5, 7.0, 7.5, 8.0, 8.5, 5. 6:06 PM EDCOMMUNITY REGIONAL MEDICAL [facility]ENTER Urine ProteinTrace(A)Negative 05/03/2025 6:06 PM [facility] Urine Glucose >=1000 mg/dL(A)Yiwefilm77/17/2025 6:06 PM [facility] Urine KetonesTrace(A)Bkvimjhw44/17/2025 6:06 PM [facility] Urine Urobilinogen4.0 E.U./dL05/03/2025 6:06 PM [facility] Urine BilirubinNegativeNegative 05/03/2025 6:06 PM [facility] Urine Blood/HGB CkymrpaqNfzuclwy48/17/2025 6:06 PM [facility] Specimen (Source)Anatomical Location / LateralityCollection Method / Volume Collection TimeReceived JbldGwngl60/17/2025 6:03 PM EDT05/03/2025 6:06 PM EDT Narrative Authorizing ProviderResult TypeResult StatusSury Ortiz DOPOINT OF CARE TEST ORDERABLESFinal ResultPerforming OrganizationAddressCity/State/ZIP CodePhone Number [facility] [address] [place] [address], [place] * CT abdomen and pelvis without [...] on 05/03/2025 5:51 PM Authorizing ProviderResult TypeResult StatusAlisangelito Ortiz [facility] ORDERABLES Final Result * CT chest [...] on 05/03/2025 5:52 PM Authorizing ProviderResult TypeResult Rigoberto Radha Angel DOIMG CT ORDERABLES Final Result * Troponin I, High Sensitivity 1 Hour (05/03/2025 5:43 PM EDT)ComponentValueRef RangeTest MethodAnalysis TimePerformed AtPathologist SignatureTROPONIN I, HIGH SENSITIVITY4<21 ng/L05/03/2025 6:14 PM EDTPROMEDICA [facility] Specimen (Source)Anatomical Location / LateralityCollection Method / Volume Collection TimeReceived TimeBloodVenous blood / UnknownVenipuncture / Unknown 05/03/2025 5:43 PM EDT05/03/2025 5:46 PM EDT Narrative Authorizing ProviderResult TypeResult Rigoberto Ortiz DOLAB BLOOD ORDERABLESFinal ResultPerforming OrganizationAddressCity/State/[facility] CodePhone Number [phone] [place] [address], * CT cervical spine without contrast (05/03/2025 [...] on 05/03/2025 5:43 PM Authorizing ProviderResult TypeResult StatusAlisangelito Garcia [facility] CT ORDERABLES Final Result * CT brain [...] 5:39 PM Authorizing ProviderResult TypeResult StatusAlisa Radha Ortiz DOIMG CT ORDERABLES Final Result * Troponin I, High Sensitivity 0 Hour (05/03/2025 4:40 PM EDT)ComponentValueRef RangeTest MethodAnalysis TimePerformed AtPathologist SignatureTROPONIN I, HIGH SENSITIVITY4<21 ng/L05/03/2025 5:50 PM EDSAMARITAN NORTH [facility]ALTH [facility]ENTER Specimen (Source)Anatomical Location / LateralityCollection Method / Volume Collection TimeReceived TimeBloodVenous blood / UnknownVenipuncture / Unknown 05/03/2025 4:40 PM EDT05/03/2025 5:17 PM EDT Narrative Authorizing ProviderResult TypeResult StatusAlisangelito Ortiz DOLAB BLOOD ORDERABLESFinal ResultPerforming OrganizationAddressCity/State/ZIP CodePhone Number [address] [place] [address], [place] * Light Blue Top (05/03/2025 4:40 PM EDT)ComponentValueRef RangeTest Method Analysis TimePerformed AtPathologist SignatureExtra TubeAuto Resulted 05/03/2025 6:02 PM EDUPPER VALLEY MEDICAL CENTERpecimen (Source) Anatomical Location / LateralityCollection Method / VolumeCollection Time Received TimeBloodVenous blood / Ugrwmky2205/03/2025 4:40 PM EDT05/03/2025 5:17 PM EDT Narrative Authorizing ProviderResult TypeResult StatusAlisa Radha Ortiz DOLAB BLOOD ORDERABLESFinal ResultPerforming OrganizationAddressty/State/ZIP CodePhone Number [address] [place] [address], [place] * CBC auto differential (05/03/2025 4:40 PM EDT)ComponentValueRef RangeTest MethodAnalysis TimePerformed AtPathologist SignatureWBC9.64 - 11 x10E9/L 05/03/2025 5:38 PM EDSAMARITAN NORTH HEALTH CENTERRBC Count5.154.1 - 5.7 X10E12/L05/03/2025 5:38 PM [facility] Iioxpiatbq74.213 - 17 g/dL05/03/2025 5:38 PM EDSAMARITAN NORTH HEALTH CENTERHematocrit47.539 - 50 %05/03/2025 5:38 PM EDTPREGENCY HOSPITAL CLEVELAND WESTMCV9280 - 100 fL05/03/2025 5:38 PM EDTPSELECT MEDICAL SPECIALTY H[facility]PITAL - CANTONH31.527 - 34 pg05/03/2025 5:38 PM EDTPREGENCY HOSPITAL CLEVELAND WESTMCHC34.232 - 36 g/dL05/03/2025 5:38 PM EDTPREGENCY HOSPITAL CLEVELAND WESTRDW13.011.5 - 15 %05/03/2025 5:38 PM EDTPREGENCY HOSPITAL CLEVELAND WESTPlatelet Niljh747176 - 450 X10E9/L05/03/2025 5:38 PM EDT [facility], INCMPV9.77 - 12 fL05/03/2025 5:38 PM EDT [facility], INCNeutrophils %63.2%05/03/2025 5:38 PM EDT [facility], INCLymphocytes %24.1%05/03/2025 5:38 PM EDT [facility]OMKAIS[facility] HOSPITALMonocytes %7.6%05/03/2025 5:38 PM EDT [facility]OMHO[facility] HOSPITALEosinophils %4.4%05/03/2025 5:38 PM EDT [facility], INCBasophils %0.7%05/03/2025 5:38 PM EDT [facility], INCNeutrophils Absolute (A)6.01.5 - 6.6 10*3/uL05/03/2025 5:38 PM EDTPREGENCY HOSPITAL CLEVELAND WESTLymphocytes Absolute2.31.0 - 3.5 10*3/uL05/03/2025 5:38 PM EDTPREGENCY HOSPITAL CLEVELAND WESTMonocytes Absolute0.70.0 - 0.9 10*3/uL05/03/2025 5:38 PM EDTPREGENCY HOSPITAL CLEVELAND WESTEosinophils Absolute0.40.0 - 0.4 10*3/uL05/03/2025 5:38 PM EDTPREGENCY HOSPITAL CLEVELAND WESTBasophils Absolute0.10.0 - 0.2 10*3/uL05/03/2025 5:38 PM EDTPREGENCY HOSPITAL CLEVELAND WESTDifferential TypeAUTOMATED ZVLLMQQSDMRZ78/17/2025 5:38 PM EDMer[facility] (Source)Anatomical Location / LateralityCollection Method / VolumeCollection TimeReceived TimeBloodVenous blood / UnknownVenipuncture / Kivilrg0505/03/2025 4:40 PM EDT05/03/2025 5:17 PM EDT Narrative Authorizing ProviderResult TypeResult StatusAlisangelito FRIAS BLOOD ORDERABLESFinal ResultPerforming OrganizationAddressCity/State/ZIP CodePhone Number [address] [address], * (ABNORMAL) Lipase (05/03/2025 4:40 PM EDT)ComponentValueRef RangeTest Method Analysis TimePerformed AtPathologist CmjcakbpzMGQFCH70(H)17 - 40 U/L05/03/2025 5:40 PM EDMer[facility] (Source)Anatomical Location / LateralityCollection Method / VolumeCollection TimeReceived Time BloodVenous blood / UnknownVenipuncture / Pwwewoo6205/03/2025 4:40 PM EDT 05/03/2025 5:17 PM EDT Narrative Authorizing ProviderResult TypeResult StatusAlisangelito HERNANDEZ BLOOD ORDERABLESFinal ResultPerforming OrganizationAddressty/State/ZIP CodePhone Number [address] [address], [place] * (ABNORMAL) Comprehensive metabolic panel (05/03/2025 4:40 PM EDT)Component ValueRef RangeTest MethodAnalysis TimePerformed AtPathologist SignatureSODIUM 658146 - 146 mmol/L05/03/2025 5:42 PM EDSAMARITAN NORTH [facility]ALTH CENTER POTASSIUM4.03.5 - 5.0 mmol/L05/03/2025 5:42 PM EDSAMARITAN NORTH HEALTH CENTERCHLORIDE10098 - 109 mmol/L05/03/2025 5:42 PM EDTPREGENCY HOSPITAL CLEVELAND WESTCARBON WFZQBSP6307 - 32 mmol/L05/03/2025 5:42 PM [facility] CENTERANION LKJ196 - 15 mmol/L05/03/2025 5:42 PM EDT [facility]OM[facility]ICKAIS[facility]OUND[facility] HOSPITALBLOOD UREA VSRSJGNL21(H)5 - 27 mg/dL 05/03/2025 5:42 PM [facility] CENTERCREATININE1.110.70 - 1.20 mg/dL05/03/2025 5:42 PM [facility] CENTERComment: METHOD TRACEABLE TO IDOR HMTNDGIWALXIDJA309(H)65 - 99 mg/dL05/03/2025 5:42 PM [facility] MEDICAL CENTERCALCIUM10.58.5 - 10.5 mg/dL05/03/2025 5:42 PM [facility] MEDICAL CENTERTOTAL PROTEIN7.56.0 - 8.0 g/dL 05/03/2025 5:42 PM [facility] MEDICAL CENTERALBUMIN3.53.2 - 5.3 g/dL05/03/2025 5:42 PM [facility] CENTERALKALINE UJNQUBBNMDH565(H)39 - 130 U/L05/03/2025 5:42 PM [facility]ENTERAST32<=41 U/L05/03/2025 5:42 PM [facility] ALT61(H)<=40 U/L05/03/2025 5:42 PM [facility] BILIRUBIN,TOTAL0.60.3 - 1.2 mg/dL05/03/2025 5:42 PM [facility] MEDICAL CENTEREGFR Non-Race Vpiepvlaa87>=60 ml/min/1.73sq.m005/03/2025 5:42 PM [facility] MEDICAL CENTERComment: eGFR not reported due to non-numeric value for Creatinine. Reported eGFR is based on the CKD-EPI 2020 equation that does not use a race coefficient. Specimen (Source)Anatomical Location / LateralityCollection Method / Volume Collection TimeReceived TimeBloodVenous blood / UnknownVenipuncture / Unknown 05/03/2025 4:40 PM EDT05/03/2025 5:17 PM EDT Narrative Authorizing ProviderResult TypeResult StatusAlisa Radha FRIAS BLOOD ORDERABLESFinal ResultPerforming OrganizationAddressCity/State/ZIP CodePhone Number [facility] [address] [place] [address], [place] from Last 3 Months Insurance Advance Directives [...] Date Daniel Oswald MD [address] [place] [address] PCP - GeneralInternal Medicine10/14/23
--- OUTSIDE RECORDS SUMMARY | 2025-06-29 14:15 | XMS_ITS | Clinical Summary ---
Author Organization [facility] Address [address] [place] [address] Care Team Providers Care Needle Polisher Name Role Phone Unallocated, [facility]oms Provider Primary [...] InformationValueDate RecordedSex Assigned at BirthNot on fileLegal QwrDfse5810/29/2022 7:47 PM EDTGender IdentityNot on fileSexual OrientationNot on file Last Filed Vital Signs Vital SignReadingTime TakenCommentsBlood Lgtogcge686/7908 12:00 PM EDT Pulse--Temperature--Respiratory Rate--Oxygen Saturation--Inhaled Oxygen Concentration--Xyhorl58.9 kg (149 lb 11.2 oz)04/03/2022 12:00 PM GAUIevmeq228.3 cm (5' 11 )04/03/2022 12:00 PM EDTBody Mass Index20.8804/03/2022 12:00 PM EDT Plan of Treatment Health MaintenanceDue DateLast DoneCommentsCT Vufrbdlvqchy92/19/1961Colonoscopy 1960FIT-DNA1960FIT1960 0379Bmqxblltzezfq93/19/1961iabetes: Retinopathy Sxiljqitc09/19/1971Diabetes: Urine Protein Qqrutwdov24/19/1980 Pneumococcal Vaccine: Pediatrics (0 to 5 Years) and At-Risk Patients (6 to 64 Years) (1 of 2 - PCV)11/03/1979Colorectal Cancer Zpffxwbhc25/29/2021FOBT /Diabetes: Hemoglobin A1C/3COVID-19 Vaccine (2 - 2024- season)/12/2021Influenza Vaccine (#1)2025 09/30/2023, 05/29/2021, 07/30/2020, Additional history exists Insurance [address] [place] [address] Care Teams Team MemberRelationshipSpecialtyStart DateEnd Date Unallocated, [facility] Tim, [address] [place] [address] [facility]10/20/23
--- OUTSIDE RECORDS SUMMARY | 2025-06-29 14:15 | XMS_ITS | Patient Health Record ---
Author Organization [facility] Address [address] [place] [address] [address] [place] [address] Care Team Providers Care Customer Service Analyst Name Role Phone TIN PACHECO Unavailable [phone] BRITNI HERNANDEZ Unavailable [phone] Allergies No Known Allergies Reason For Referral No Information Social History Tobacco Use: Social History Observation Description Date Details (start date - stop date) Current Smoker NA - NA Tobacco Control (Standard) Question Answer Notes Tobacco use: Current smoker Problems Problem Type SNOMED Code ICD Code Onset Dates Problem Status W/U Status Risk Notes Problem Chronic obstructive pulmonary disease (88176864) Chronic obstructive pulmonary disease, unspecified (J44.9) Activeconfirmed Encounters Encounter Location Date Provider Diagnosis [address] [place] [address] 04/04/2025 BRITNI HERNANDEZ Chronic obstructive pulmonary disease, unspecified J44.9 and Tobacco abuse Z72.[address] [place] [address] 05/09/2025 BRITNI HERNANDEZ Chronic obstructive pulmonary disease, unspecified J44.9 and Tobacco abuse Z72.0 Assessments Encounter Date Diagnosis (ICD Code) Assessment Notes Treatment Notes Treatment Clinical Notes Section Notes 04/04/2025 Chronic obstructive pulmonary di sease, unspecified (ICD-10 - J44.9) 04/04/2025Tobacco abuse (ICD-10 - Z72.0)05/09/2025hronic obstructive pulmonary disease, unspecified (ICD-10 - J44.9)05/09/2025Tobacco abuse (ICD-10 - Z72.0) 04/04/2025OtherSeen in collaboration and discussed plan of care with Dr. Tin Pacheco05/09/2025OtherSeen in collaboration and discussed plan of care with Dr. Tin Pacheco Plan Of Treatment No Information Insurance Providers Payer Name Payer Address Payer Phone Subscriber Number Group Number Insured Name Patient Relationship to Insured Coverage Start Date Coverage End Date [employer] [place] [address] [place] [address] [id number] Graeme Byrnes - patient is the insured Medical (General) History Medical History History ICD Code COPD BipolarAnxietyDysphagiaType 2 DMHyperlipidemiaHTNBPHDepressionLaryngitisType 2 DMMetabolic encephalopathySurgical History Surgery Date(Month/Year) Reviewed Hospitalization History Reason Date(Month/Year) Reviewed [place] records
--- OUTSIDE RECORDS SUMMARY | 2025-06-29 14:15 | XMS_ITS | Patient Health Record ---
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 Name Role Phone Manohar Zurita Unavailable Allergies No Known Allergies Reason For Referral No Information Medications Medication SIG (Take, Route, Frequency, Duration) Notes Start Date End Date Status Drug [place] Unifine Pentips 31G X 6 MM use WITH insulin FOUR TIMES DAILY NEEDED; Duration: 30 ActiveTresiba FlexTouch 100 UNIT/ML80 units Subcutaneous daily; Duration: 90 days10/14/2021ctiveamLODIPine Besy-Benazepril HCl 10-20 MG1 tablet Orally daily; Duration: 90 daysActiveTamsulosin HCl 0.4 mgTAKE 1 CAPSULE BY MOUTH DAILY Orally Once a day; Duration: 90 daysActivePioglitazone HCl 30 mg1 tablet Orally Once a day; Duration: 90 daysActivePregabalin 150 mgTAKE 1 CAPSULE BY MOUTH THREE TIMES DAILY Orally three times a day; Duration: ctiveAspirin Adult Low Strength 81 mgTAKE 1 TABLET BY MOUTH DAILY Orally Once a day; Duration: 90 daysActiveSpiriva HandiHaler 18 mcg1 capsule by inhaling the contents of the capsule using the HandiHaler device Inhalation Once a day; Duration: 90 daysActiveAtorvastatin Calcium 40 MGTAKE 1 TABLET BY MOUTH DAILY Orally Once a day; Duration: 90 daysActivehydrOXYzine HCl 50 MGTAKE 1 TABLET BY MOUTH THREE TIMES DAILY Orally every 8 hrs; Duration: 30 day(s)for panic attacks ActiveCombivent Respimat 20-100 MCG/ACTINHALE 2-4 PUFF Inhalation every 6 hrs; Duration: 90 daysActiveQUEtiapine Fumarate 200 MG1 tablet at bedtime Orally Once a day; Duration: 90 days10/24/2021ctiveEscitalopram Oxalate 20 mg1 tablet Orally Once a day; Duration: 90 daysActiveDrug [place] Unilet Lancets 28G -use to check BLOOD SUGAR THREE TIMES DAILY WITH MEALS; Duration: 30ActiveBD Swab Single Use Regular -APPLY 1 application topically TWICE DAILY; Duration: 30Active Immunizations Vaccine Route Administration Date Status Comme nts *Pneumococcal polysaccharide [id number] IM Intramuscular 05/29/2021 Administered Status:Complet e ,Reason:Given [...] current smoker How often do you smoke cigarettes?every dayHow many cigarettes a day do you smoke? Problems Problem Type SNOMED Code ICD Code Onset Dates Problem Status W/U Status Risk Notes Problem Panic attack (758805639) Panic attack (F4 1.0) ActiveconfirmedProblemHepatitis C antibody test positive (449320444)Hepatitis C antibody test positive (R76.8)ActiveconfirmedProblemScreening for malignant neoplasm of colon (575275066)Encounter for screening for malignant neoplasm of colon (Z12.11)ActiveconfirmedStory:07-07 Cologuard negative,Description:Colon cancer screeningProblemDepression screening (762206631)Screening for depression (Z13.31)ActiveconfirmedDescription:Depression screenProblemHypertension (38289611)Hypertension (I10)Activeconfirmed Comment:started on Amlodipine benazepril 10-20 BP is under much better control Patient was advised to limit sodium intake to 1.5g per day, exercising 150 min moderate intensity every week, weight loss of at least 10% of body weight for better control of HTN Medication adherence and required labs were discussed Will order labs as needed to monitor kidney function, ProblemCurrent smoker (57273287)Current smoker (F17.200)Activeconfirmed Story:3-4 a day many years Low dose 06-06 normal, ProblemAcquired keratoderma (621065775)Acquired keratoderma (L85.1)Active confirmedComment:Instructed pt on pumice stone use after showering - use daily to keep growth of callus controlled. Apply urea cream to calluses twice a day. Recommended toe silipost pad to 4th L toe callus -paperwork dispensed.,Problem Benign prostatic hyperplasia (785759110)BPH (benign prostatic hyperplasia) (N40.0)ActiveconfirmedProblemFollow-up status (277815310)Follow up (Z09)Active confirmedComment:06/03/2021- Sending letter to pt to notify of date and time for CT lung screening. 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,ProblemCOPD - Chronic obstructive pulmonary disease (10648802)COPD (chronic obstructive pulmonary disease) (J44.9)Activeconfirmed Comment:Advair and will do Spiriva with albuterol,Story:needs PFTProblem Dermatitis (372851347)Dermatitis (L30.9)ActiveconfirmedProblemVitamin D deficiency (72296782)Vitamin D deficiency (E55.9)ActiveconfirmedProblemRequires vaccination (974313664)Need for immunization against influenza (Z23)Active confirmed Story:Flu and Pneumovax 06-06 Tdap next time,Description:Influenza vaccine needed ProblemType II diabetes mellitus uncontrolled (315713688)Diabetes mellitus type II, uncontrolled (E11.65)Activeconfirmed Comment:Tresiba 80 u daily , uses manoj max glucometer A1c 10.5 06-06 ordered Trulicity last time, never got it ,Story:Metformin could not tolerate signed Pregabalin contract 2020, needs urine test 2021 A1c is 10.8 07-07, ProblemPain in limb (11588017)Acute foot pain (M79.673)ActiveconfirmedProblem Diabetic peripheral neuropathy (025860140)Diabetic peripheral neuropathy (E11.42)ActiveconfirmedStory:needs Reel Operator for assesssment for diabetic shoes,ProblemPlantar fascial fibromatosis (04953008)Fibromatosis, plantar (728.71) (728.71)ActiveconfirmedComment:Discussed diagnosis of plantar fibroma along with treatment options. Recommended starting with supportive shoes. Pt states he has OTC inserts at home. Gave him an offloading pad to try in oneof his inserts to see if this improved his symptoms at the fibroma. Also discussed the possibility of local steroid injection. Reviewed that these lesions have a high recurrence rate with or without surgery,ProblemDepression (358051096) Depression (F32.A)ActiveconfirmedComment:on Lexapro 20 and added Hydroxyzine 25 TID for pancs, Plan Of Treatment No Information Insurance Providers Payer Name Payer Address Payer Phone Subscriber Number Group Number Insured Name Patient Relationship to Insured Coverage Start Date Coverage End Date [employer] ABD [facility] [address] [place], [place] [id number] Akbar Faust Self - patient is the insured 7 Medicaid ABD after [address] [place], [place] [id number], JeffreySelf - patient is the [id number] 2017 Medical (General) History Medical History History ICD Code Anxiety COPD (chronic obstructive pulmonary disease)Current smokerDepressionDiabetes mellitus type II, uncontrolledDiabetic peripheral neuropathyHyperlipidemia HypertensionPanic AttacksSurgical History Surgery Date(Month/Year) Arm Surgery Hip replacement - LArm surgery - L
--- OUTSIDE RECORDS SUMMARY | 2025-06-29 14:16 | XMS_ITS | Patient Health Record ---
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 Name Role Phone Kenia Fleming Primary Care Provider Allergies Allergen (clinical drug ingredient) Drug/Non Drug Allergy documented on EMR Reaction Allergy Type Onset Date Status metformin Metformin N/V/D Drug Allergy Active Reason For Referral No Information Medications Medication SIG (Take, Route, Frequency, Duration) Notes Start Date End Date Status Lisinopril 10 MG 1 tablet Orally Once a day; Dur ation: 90 days 01/01/2023ctiveTransfer Bench -as directedtub transfer bench02/23/2023ctive Escitalopram Oxalate 20 MG1 tablet Orally Once a dayActiveglipiZIDE 10 MG1 tablet 30 minutes before breakfast Orally Once a dayActiveWalker -as directed Dx: Unsteady gaitwheeled walker with seat02/23/2023ctiveCombivent Respimat 20- 100 MCG/ACT2 puff as needed Inhalation every 6 hrsActivehydrOXYzine HCl 25 MG1 tablet Orally BID NEEDED ANXIETY; Duration: 30 daysActiveLantus 100 UNIT/ML30 units Subcutaneous twice daily; Duration: 30 daysActiveHumaLOG KwikPen 100 UNIT/ML10 units Subcutaneous before mealsActiveAspirin 81 81 MG1 tablet Orally Once a day; Duration: 90 daysActiveAtorvastatin Calcium 40 MG1 tablet Orally Once a day; Duration: 90 daysActiveQUEtiapine Fumarate 50 MG1 tablet at bedtime Orally Once a day; Duration: 90 daysActiveAmmonium Lactate 12 %1 application Externally dailyActiveTamsulosin HCl 0.4 MG1 capsule Orally Once a day; Duration: 90 daysActiveMetoprolol Tartrate 50 MG1 tablet with food Orally Twice a day; Duration: 90 days3Active Social History Tobacco Use: Social History Observation Description Date Details (start date - stop date) Current Smoker 08/17/1970 - NA Tobacco Use/Smoking Question Answer Notes Patient is a current smoker When did you start smoking?08/17/1970How often do you smoke cigarettes?every day How many cigarettes a day do you smoke?11-20Additional Findings: Tobacco Non-UserCurrent non-smokerAlcohol Screen (Audit-C) Question Answer Notes Did you have a drink containing alcohol in the p ast year? Yes How often did you have 6 or more drinks on one occasion in the past year?Never (0 point)How many drinks did you have on a typical day when you were drinking in the past year?1 or 2 drinks (0 point)How often did you have a drink containing alcohol in the past year?Never (0 point)[id number] Problems Problem Type SNOMED Code ICD Code Onset Dates Problem Status W/U Status Risk Notes Problem Hyperlipidemia (77739893) Hyperlipidemia, unspecified (E78.5) ActiveconfirmedProblemTobacco user (203266767)Nicotine dependence, unspecified, uncomplicated (F17.200)ActiveconfirmedProblemPsychoactive substance abuse (59669347)Other psychoactive substance abuse, 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)Active confirmedProblemChronic pain (62380228)Other chronic pain (G89.29)Active confirmedProblemNontraumatic intracerebral hemorrhage (496774622039649) Nontraumatic intracerebral hemorrhage, unspecified (I61.9)ActiveconfirmedProblem Irritable bowel syndrome (85127637)Irritable bowel syndrome without diarrhea (K58.9)ActiveconfirmedProblemAtaxic gait (47684587)Ataxic gait (R26.0)Active confirmedProblemAphasia (41973214)Aphasia (R47.01)ActiveconfirmedProblem Hypertension (56280626)Hypertension (I10)ActiveconfirmedProblemCOPD - Chronic obstructive pulmonary disease (08461053)COPD (chronic obstructive pulmonary disease) (J44.9)ActiveconfirmedProblemAnxiety (69859388)Anxiety (F41.9)Active confirmedProblemDepression (070723663)Depression (F32.9)ActiveconfirmedProblem Insomnia (518476538)Insomnia (G47.00)ActiveconfirmedProblemSeizure (40105523) Seizure (R56.9)ActiveconfirmedProblemLong-term current use of insulin (150148569)Insulin long-term use (Z79.4)ActiveconfirmedProblemDiabetic neuropathy (017787610)Diabetes mellitus with diabetic neuropathy (E11.40)Active confirmedProblemFoot ulcer due to type 2 diabetes mellitus (7596327477434) Diabetes mellitus with foot ulcer due to multiple causes (E11.621)Active confirmedProblemCallosity (17535937)Callosity (L84)ActiveconfirmedProblem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 (L97.411) ActiveconfirmedProblemType II diabetes mellitus without complication (306727397) Diabetes (E11.9)ActiveconfirmedProblemDiabetes mellitus (94454186)Diabetes mellitus (E11.9)Activeconfirmed Plan Of Treatment Pending Test Test Name [...] MEDICAID [place] [facility] ONLY [address] [place], [place] [id number] Graeme Byrnes - patient is the [id number] 2024 Medical (General) History Medical History History ICD Code Seizure R56.9 Diabetes E11.9 Hypertension I10 Depression F32.9 Anxiety F41.9 COPD (chronic obstructive pulmonary dise ase) J44.9 Irritable bowel syndrome K58.9 High cholesterol E78.00 Surgical History Surgery Date(Month/Year) Left Hip Replacementx2 Left arm surgery- shot in armColonoscopy w/biopsy- polyp Dr. Champagne02/11/23 Hospitalization History Reason Date(Month/Year) Pneumonia/Diabetes 02/2023 Seizure 11/2022 Pneumonia/Diabetes 11/2022
--- OUTSIDE RECORDS SUMMARY | 2025-06-29 14:21 | XMS_ITS | CCD ---
Author Organization [facility] Inform ion [facility] Care Team Providers Care Camera Technician Name Role Phone PROVIDER, UNKNOWN Attending [...] Consulting Unavailable DUGLAS, DR DEO Conroy Consulting UnavailCRHISTIANO Kerns Attending Unavailable CHRISTIANO TATE Admitting Unavailable [...] BHAVYA Magaña Consulting Unavailable HAY ., DR JOHSNON Consulting Unavailable COOPER ., DR LA Forrest Consulting Unavailable COOPER ., DR LA Forrest Attending Unavailable COOPER ., DR LA Forrest Admitting Unavailable FAWWAD, VOSS H Primary Care Unavailable HALIFAX, DR FELIX Garcia Consulting Unavailable ZIEBER, DR [...] Admit Provider DO Devin Starks Attending Provider [phone] Unavailable Primary Care Provider UnavailBlue Thrasher MDikh Primary Care Provider BECKIE HERNANDEZ Referring Unavailable BECKIE HERNANDEZ Referring Unavailable LUNA CARROLL Attending Unavailable LA STEEL Referring Unavailable NON STAFF Primary Care Provider Unavailmichael Madrid MD, Olya Sanon Attending Provider HONEY, REHAB Attending Unavailable OSWALD, ROWDY Referring Unavailable OSWALD, ROWDY Primary Care Unavailable BETSY IRAHETA Attending Unavailable OSWALD, ROWDY Referring Unavailable OSWALD, ROWDY Primary Care Unavailable HONEY, REHAB Attending Unavailable OSWALD, ROWDY Referring Unavailable OSWALD, ROWDY Primary Care Unavailable HONEY, REHAB Attending Unavailable OSWALD, ROWDY Referring Unavailable OSWALD, ROWDY Primary Care Unavailable ANNMARIE GRAF Attending Unavailabl e HONEY, REHAB Referring Unavailable OSWALD, ROWDY Primary Care Unavailable Jian MELENDEZ, [facility] Primary Care Provider [phone] Margret MELENDEZ, [facility] Primary Care Provider [phone] NON STAFF Primary Care Provider Unavailmichael Madrid [...] (Original)acetaminophen 325 mg oral tablet (20 sources)Start: 37-26-9542cmxq 2 tablets by mouth every six hours as needed for painAcetaminophen (Tylenol) 325 mg tablet Active 650 MG PO Every 6 hours as needed for pain June 23, 2024 1:00amStart: 10-15-2023 End: 30-15-7953wmpx 1 tablet by mouth every four hours as needed for fever and pain and headacheacetaminophen (TYLENOL) tablet 650 mgStart: 03-09-2023 End: 54-40-7314shwg 2 tablets by mouth every six hours as needed for pain Acetaminophen 500 mg Tablet Discontinued 1000 MG PO Q6H as needed for Fever Or Pain 0 March 09, 2023 12:00am June 23, 2024 2:[id number] 200 actuat albuterol 0.09 mg/actuat metered dose inhaler (18 sources)beta2-Adrenergic AgonistStart: 90-39-3202yxer 2 puff(s) by inhalation every four hours [...] 6; Qty: 18 g; Provider: Matthew Armstrongtart: 12-15-7617dryxfzamb (PROVENTIL HFA;VENTOLIN HFA) 90 mcg/actuation inhaler 03/18/2024 ActiveStart: 02-14-2020 End: 17-06-0002Adsxygczq Sulfate 90 mcg/actuation HFA aerosol inhaler Discontinued 90 MCG INHALATION Four times daily as needed for Shortness Of Breath February 14, 2020 12:00am March 09, 2023 1:24pmamLODIPine 2.5 mg oral tablet (12 sources)Dihydropyridine Calcium Channel BlockerStart: 68-06-3506vbhz 1 tablet by mouth once daily at bedtimeAmlodipine 2.5 mg tablet Active 2.5 MG PO Daily at bedtime June 23, 2024 1:00amStart: 02-14-2020 End: 20-79-8225nznw 1 tablet by mouth once dailyAmlodipine 10 mg tablet Discontinued 10 MG PO Daily February 14, 2020 12:00am June 23, 2024 2:14pm arformoterol 0.0075 mg/ml inhalation solution (5 sources)beta2-Adrenergic AgonistStart: 11-77-2294wnek 2 mL by inhalation in the morningarformoteroL (BROVANA) 15 mcg/2 mL solution for nebulization Indications: Chronic obstructive pulmonary disease, unspecified COPD type ([facility]) Inhale 2 mL (15 mcg total) by nebulization in the morning and 2 mL (15 mcg total) before bedtime. 120 mL 11 05/12/2024 ActiveArtificial Tears Solution drops (2 sources)Start: 31-82-9440phtt 1 drop(s) into the eye(s) every six hours as neededArtificial Tears Solution drops Active 1 DROPS OPHTHALMIC Every 6 hours as needed for dry eyes December 22, 2024 12:00amaspirin 81 mg delayed release oral tablet (20 sources)Platelet Aggregation Inhibitor, Nonsteroidal Anti-inflammatory Drug Start: 02-14-2020 End: 79-94-9714wzvw 1 tablet by mouth once daily in the morningAspirin 81 mg tablet,delayed release (DR/EC) Active 81 MG PO Every morning February 14, 2020 12:00ambisacodyl 10 mg rectal suppository (17 sources)Stimulant LaxativeStart: 08-04-2024 End: 46-60-4494Swoiumfqw (Dulcolax (Bisacodyl)) 10 mg suppository Active 10 MG KS Daily as needed for constipationMa2024 12:00amStart: 10-15-2023 End: 71-06-151132 mg, rectal, As needed, constipation, Starting on Mere 10/15/23 at 0229, Look-alike/sound-alike medication - verify indication for use.bisacodyL (DULCOLAX, BISACODYL,) 10 mg suppository Insert 1 suppository (10 mg total) into the rectum as needed for constipation. Every 24 hours PRN ActiveclonazePAM 0.5 mg oral tablet (18 sources)BenzodiazepineStart: 36-78-5381wdmh 1 tablet by mouth twice daily as needed for anxietyClonazepam 0.5 mg tablet Active 0.5 MG PO Twice daily as needed for anxiety June 23, 2024 1:00amStart: 10-18-2023 End: 43-06-1918nthx 0.5 mg by mouth twice daily0.5 mg, oral, 2 times daily, First dose on 10/18/23 at 2345, Look-alike/sound-alike medication - verify indication for use.take 2 tablets by mouth twice daily as neededclonazePAM (KLONOPIN) 0.5 MG tablet Take 1 tablet by mouth 2 times daily as needed for Anxiety. MaxDaily Amount: 1 mg 0 Activedapagliflozin 5 mg oral tablet (2 sources)Sodium-Glucose Cotransporter 2 InhibitorStart: 80-10-0090ufui 1 tablet by mouth once daily in the morningDapagliflozin Propanediol 5 mg tablet Active 5 MG PO Every morning December 22, 2024 12:00amescitalopram 5 mg oral tablet (20 sources)Serotonin Reuptake InhibitorStart: 69-45-5693fwct 2 tablets by mouth once daily in the morningEscitalopram Oxalate 5 mg tablet Active 10 MG PO Every morning June 23, 2024 1:00amStart: 50-24-8667qbmz 1 tablet by mouth once daily in the morningEscitalopram Oxalate 5 mg tablet Active 5 MG PO Every morning June 23, 2024 12:00amStart: 10-16-2023 End: 71-38-1652krqnzuzfoupx (LEXAPRO) tablet 5 mgStart: 02-04-2021 End: 08-00-9561nvrm 1 tablet by mouth once dailyescitalopram (LEXAPRO) 20 mg tablet Indications: Anxiety Take 1 tablet (20 mg total) by mouth daily. 30 tablet 2 02/04/2021 10/15/2023 DiscontinuedStart: 02-14-2020 End: 78-77-9755iudf 1 tablet by mouth once dailyEscitalopram Oxalate 10 mg tablet Discontinued 10 MG PO Daily February 14, 2020 12:00am June 2:22pmStart: 02-14-2020 End: 21-23-8826odxq 1 tablet by mouth once dailyEscitalopram Oxalate 20 mg tablet Discontinued 20 MG PO Daily February 14, 2020 12:00am February 14, 2020 12:41amFluticasone Propion-Salmeterol (2 sources)Corticosteroid, beta2-Adrenergic AgonistStart: 85-60-8838Jewlwpthsom Propion-Salmeterol (Advair Diskus) 250-50 mcg/dose blister with device Active 1 INH INHALATION Twice daily December 22, 2024 12:00amFREESTYLE ALYSHA 2 READER misc (1 source)Start: 21-18-4597ZBJFCPLAI ALYSHA 2 READER misc 05/19/2024 Active FREESTYLE ALYSHA 2 SENSOR kit (1 source)Start: 00-13-4516HZIQTCAKZ ALYSHA 2 SENSOR kit 06/23/2024 Active gabapentin 100 mg oral capsule (13 sources)Anti-epileptic AgentStart: 55-41-3260solg 2 capsules by mouth three times dailyGabapentin 100 mg capsule Active 200 MG PO Three times daily June 23, 2024 1:00amStart: 06-75-7089kgrjpwhfpi (NEURONTIN) 100 mg capsule 02/29/2024 ActiveglipiZIDE 10 mg oral tablet (20 sources)SulfonylureaStart: 11-68-4983czbf 1 tablet by mouth once daily in the morningGlipizide 10 mg tablet Active 10 MG PO Every morning June 23, 2024 1:00amStart: 96-82-8489xrqf 1 tablet by mouth once dailyglipiZIDE (Glucotrol) [...] ActiveguaiFENesin 20 mg/ml oral solution (2 sources)Start: 16-13-9803tbhv 200 mg by mouth every four hours as needed for congestionGuaifenesin (Chest Congestion Relief) 100 mg/5 mL liquid Active 200 MG PO Every 4 hours as needed for congestion December 22, 2024 12:00am hydroCHLOROthiazide 25 mg oral tablet (13 sources)Thiazide DiureticStart: 57-17-5831mvgd 1 tablet by mouth once daily in the morningHydrochlorothiazide 25 mg tablet Active 25 MG PO Every morning June 23, 2024 1:00amhydrOXYzine hydrochloride 25 mg oral tablet (20 sources)AntihistamineStart: 29-30-6748wuav 1 tablet by mouth three times daily as neededHydroxyzine Hcl 25 mg tablet Active 25 MG PO Three times daily as needed for itching June 23, 2024 1:00amStart: 10-18-2023 End: 42-44-5419ucuh 1 tablet by mouth three times daily as neededHydroxyzine Hcl 25 mg tablet Active 25 MG PO Three times daily as needed for itching June 23, 2024 12:00am End: 26-18-1763cnuw 1 tablet by mouth every eight hours [...] unit/mL (3 mL) Insulin Pen (12 sources)Start: 51-73-4955ncphpx 3 [IU] by subcutaneous injection once daily Insulin Aspart U-100 (Novolog Flexpen U-100 Insulin) 100 unit/mL (3 mL) Insulin Pen Active 3 UNIT SUBCUT Daily June 23, 2024 1:00amStart: 82-38-7830haigpc 1 dose by subcutaneous injection once at mealtimeInsulin Aspart U-100 (Novolog Flexpen U-100 Insulin) 100 unit/mL (3 mL) Insulin Pen Active 1 sliding scale dose SUBCUT 3X/Day with meals and bedtime June 23, 2024 12:00amStart: 03-09-2023 End: 42-18-3237Wvlutzj Aspart U-100 (Novolog Flexpen U-100 Insulin) 100 unit/mL (3 mL) Insulin Pen Discontinued 12UNITS SUBCUT 3x/Day with meals 0 March 09, 2023 12:00am June 23, 2024 2:31pmStart: 03-09-2023 End: 47-80-0226Myvudem Aspart U-100 (Novolog Flexpen U-100 Insulin) 100 unit/mL (3 mL) Insulin Pen Discontinued 0 UNITS SUBCUT 3X/Day with meals and bedtime 0 March 09, 2023 12:00am June 23, 2024 2:39pmStart: 03-09-2023 End: 47-87-7015Kfqsoep Aspart U-100 (Novolog Flexpen U-100 Insulin) 100 unit/mL (3 mL) Insulin Pen Discontinued 12UNITS SUBCUT 3x/Day with meals 0 March 08, 2023 11:00pm June 23, 2024 1:31pmStart: 03-09-2023 End: 29-40-3880Ynnxsyj Aspart U-100 (Novolog Flexpen U-100 Insulin) 100 [...] 100 unt/ml pen injector (3 sources)Insulin AnalogStart: 37-05-8097Ququffo Degludec (Tresiba Flextouch U- 100) 100 unit/mL (3 mL) insulin pen Active 80 UNIT SUBCUT Daily February 14, 2020 12:00am End: 68-51-9951uhclxwv degludec (TRESIBA FLEXTOUCH U-100) 100 unit/mL (3 mL) insulin pen Inject 80 Units under theskin in the morning. 0 10/15/2023 Discontinued3 ml insulin glargine 100 unt/ml pen injector (16 sources)Insulin AnalogStart: 28-52-9883qggllf 30 [IU] by subcutaneous injection once daily in the morningInsulin Glargine 100 unit/mL (3 mL) insulin pen Active 30 UNIT SUBCUT Every morning June 23, 2024 1:00amStart: 03-25-9263Kcgmffz Glargine (Lantus Solostar U-100 Insulin) 100 unit/mL (3 mL) Insulin Pen Active 20 UNIT SUBCUT Daily at bedtime June 23, 2024 1:00am Start: 12-28-6419Vzulecx Glargine (Lantus Solostar U-100 Insulin) 100 unit/mL (3 mL) Insulin Pen Active 25 UNIT SUBCUT Daily at bedtime June 23, 2024 12:00amStart: 03-09-2023 End: 49-28-4973Pzytrsc Glargine (Lantus Solostar U-100 Insulin) 100 unit/mL (3 mL) Insulin Pen Discontinued 50 UNITS SUBCUT Daily at bedtime 0 March 09, 2023 12:00am June 23, 2024 2:39pmStart: 98-75-7381Zijxgbt Glargine w/ Trans Port 100 UNIT/ML SOPN Inject 40 Units into the skin 2 times daily 0 10/30/2022 ActiveStart: 10-30-2022 End: 75-41-6527eorgxz 30 [IU] by subcutaneous injection in the morninginsulin glargine (LANTUS, BASAGLAR) 100 unit/mL (3 mL) insulin pen Inject 30 Units under the skin in the morning and 30 Units before bedtime. 15 mL 12 10/30/2022 10/15/2023 Discontinuedloperamide hydrochloride 2 mg oral tablet (4 sources)Opioid AgonistStart: 09-27-9662ghvr 1 tablet by mouth every six hours as neededLoperamide 2 mg tablet Active 2 MG PO Every 6 hours as needed for loose stool June 23, 2024 1:00amlosartan potassium 25 mg oral tablet (4 sources)Angiotensin 2 Receptor BlockerStart: 99-65-4633cjer 2 tablets by mouth once daily at bedtimeLosartan 25 mg tablet Active 50 MG PO Daily at bedtime June 23, 2024 1:00amStart: 01-82-3606dmbp 1 tablet by mouth once daily at bedtimeLosartan 25 mg tablet Active 25 MG PO Daily at bedtime June 23, 2024 12:00ammetFORMIN hydrochloride 500 mg oral tablet (13 sources)BiguanideStart: 83-57-7657mxnj 1 tablet by mouth once daily at bedtimeMetformin 500 mg tablet Active 500 MG PO Daily at bedtime June 23, 2024 1:00amofloxacin 3 mg/ml ophthalmic solution (1 source)Quinolone AntimicrobialStart: 62-52-1969xcyusuntk (OCUFLOX) 0.3 % ophthalmic solution 07/04/2024 ActiveOLANZapine 5 mg oral tablet (13 sources)Atypical AntipsychoticStart: 10-16-2023 End: 23-61-5307atmn 1 tablet by mouth once dailyOLANZapine (ZyPREXA) 5 mg tablet Take 1 tablet (5 mg total) by mouth nightly. 10/19/2023 ActiveStart: 10-15-2023 End: 88-90-7084HXNTKqzzaj (ZyPREXA) injection 5 mgprednisoLONE acetate 10 mg/ml ophthalmic suspension (1 source)CorticosteroidStart: 29-46-5897gytulcwoQTRY acetate (PRED FORTE) 1 % ophthalmic suspension 07/04/2024 ActiveSaliva Substitute Combo No.9 (Biotene Dry Mouth Oral Rinse) mouthwash (2 sources)Start: 96-43-8928Lhkkao Substitute Combo No.9 (Biotene Dry Mouth Oral Rinse) mouthwash Active 15 ML MUCOUS MEM 1 to 2 times per day as needed for dry mouth December 22, 2024 12:00am swish for 15-30 secs , then spit out; do not swallowsimethicone 80 mg chewable tablet (15 sources)Start: 71-76-7396Yvyepklzifb (Gas Relief 80 (Simethicone)) 80 mg tablet,chewable [...] oral tablet (15 sources)Aldosterone AntagonistStart: 06-23-2024 End: 59-51-3032Esvtlcrhijwzff (Aldactone) 25 mg tablet Active 12.5 MG PO Every morning December 22, 2024 12:00amStart: 15-75-3019ncjuvrjnbahgyi (ALDACTONE) 25 mg tablet 03/18/2024 Ivhmul25 actuat tiotropium 0.0025 mg/actuat inhalation spray (20 sources)AnticholinergicStart: 00-57-0274qpad 2.5 ug by inhalation once daily in the morningTiotropium [place] (Spiriva Respimat) 2.5 mcg/actuation mist Active 2 INH INHALATION Every morning June 23, 2024 1:00amStart: 09-15-2023 take 2 puff(s) by mouth once dailySpiriva Respimat 2.5 MCG/ACT inhaler Indications: Chronic obstructive pulmonary disease, unspecified (CMS/HCC) INHALE 2 PUFFS BY MOUTH DAILY 4 g 0 09/15/2023 ActiveStart: 02-14-2020 End: 94-75-8849ssbh 1 puff(s) by inhalation once dailyTiotropium [place] (Spiriva Respimat) 2.5 mcg/actuation mist Discontinued 2 [...] mg oral tablet (17 sources)Serotonin Reuptake InhibitorStart: 84-73-9730wxgg 1 tablet by mouth once daily at bedtimeTrazodone 100 mg tablet Active 100 MG PO Daily at bedtime June 23, 2024 1:00amtake 1 tablet by mouth once dailytraZODone (DESYREL) 50 MG tablet Take 1 tablet by mouth nightly 0 Activedivalproex sodium 250 mg delayed release oral tablet (17 sources)Mood Stabilizer, Anti-epileptic AgentStart: 67-46-4511tzpc 1 tablet by mouth twice dailyDivalproex 250 mg tablet,delayed release (DR/EC) Active 250 MG PO Twice daily June 23, 2024 12:00amStart: 10-19-2023 End: 58-93-6954bivk 1 tablet by mouth three times dailyDivalproex [...] oral tablet (19 sources)Opioid AgonistStart: 03-09-2023 End: 57-67-4561btws 1 tablet by mouth every six hours as needed for pain Hydrocodone-Acetaminophen 5-325 mg tablet Discontinued 1 TAB PO Q6H as needed for pain 30 7 March 09, 2023 June 23, 2024 2:25pmStart: 03-21-2020 End: 37-39-2954zcif 1 tablet by mouth every six hours as needed for pain Hydrocodone-Acetaminophen 5-325 mg tablet Discontinued 1 TAB PO Q6H as needed for Pain 56 14 2019March 21, 2020 8:01amStart: 03-21-2020 End: 60-32-0238pqvj 1 tablet by mouth every four to six hours as needed for pain Hydrocodone-Acetaminophen 5-325 mg tablet Discontinued 1 TAB PO EVERY 4-6 HOURS as needed for pain 70 14 March 21, 2020 June 23, 2024 2:25pmStart: 03-21-2020 End: 23-38-0114wcnw 1 tablet by mouth every six hours as needed for pain Hydrocodone-Acetaminophen 5-325 mg tablet Discontinued 1 TAB PO Q6H as needed for Pain 56 14 2019March 21, 2020 8:01amStart: 03-21-2020 End: 01-34-0525auoc 1 tablet by mouth every six hours as needed for pain Hydrocodone-Acetaminophen 5-325 mg tablet Discontinued 1 TAB PO Q6H as needed for Pain 56 14 2019March 21, 2020 7:01amStart: 03-21-2020 End: 05-81-4336hkyr 1 tablet by mouth every six hours as needed for pain Hydrocodone-Acetaminophen 5-325 mg tablet Discontinued 1 TAB PO Q6H as needed for Pain 56 14 2019March 21, 2020 7:01amStart: 03-21-2020 End: 52-12-2518wtrj 1 tablet by mouth every six hoursHydrocodone-Acetaminophen Discontinued 1 TAB PO Q6H 56 14 March 21, 2020 March 21, 2020 8:01amStart: 03-14-2020 End: 97-80-0922whyo 1 tablet by mouth every eight hours as needed for pain Hydrocodone-Acetaminophen 5-325 mg tablet Discontinued 1 TAB PO Q8H as needed for Pain March 14, 2020 12:00am March 21, 2020 8:00amalbuterol 0.833 mg/ml / ipratropium bromide 0.167 mg/ml inhalation solution (8 sources)Anticholinergic, beta2-Adrenergic AgonistStart: 10-17-2023 End: 91-58-8838aoyjoxzvagq-albuteroL (DUONEB) 0.5 mg-3 mg(2.5 mg base)/3 mL nebulizer solution 3 mLStart: 03-02-2021 End: 50-32-3642gnyv 20-100 ug by mouth four times daily as neededCOMBIVENT RESPIMAT 20-100 mcg/actuation mist Indications: Chronic obstructive pulmonary disease, unspecified COPD type ([facility]) INHALE 1 (ONE) puff BY MOUTH FOUR TIMES DAILY NEEDED for shortness of breath 4 g 3 03/02/2021 10/15/2023 DiscontinuedStart: 02-14-2020 End: 02-03-1445oxjl 20-100 ug by inhalation four times daily as needed Ipratropium-Albuterol (Combivent Respimat) 20-100 mcg/actuation mist Discontinued 20 - 100 PUFF INHALATION Four times daily as needed for Shortness Of Breath February 14, 2020 12:00am June 23, 2024 2:25pmaluminum hydroxide 40 mg/ml / magnesium hydroxide 40 mg/ml / simethicone 4 mg/ml oral suspension (1 source)Start: 10-15-2023 End: 62-77-8237rpfj-mag hydroxide-simeth (MAALOX) 200-200-20 mg/5 mL suspension 30 mLamLODIPine 10 mg / benazepril hydrochloride 20 mg oral capsule (4 sources)Dihydropyridine Calcium Channel Yvonne, Angiotensin Converting Enzyme InhibitorStart: 10-03-2022 End: 44-71-6472pqxa 1 capsule by mouth once in the morningamLODIPine-benazepril (LOTREL) 10-20 mg per capsule Take 1 capsule by mouth in the morning. 0 202210/15/2023 DiscontinuedStart: 75-31-6621byec 1 capsule by mouth once daily amLODIPine-benazepril (LOTREL) 10-20 MG per capsule Take 1 capsule by mouth daily 0 10/03/2022 Activeampicillin 2000 mg / sulbactam 1000 mg injection (1 source)Penicillin-class Antibacterial, beta Lactamase InhibitorStart: 10-15-2023 End: 03-27-2843nqnrdjbgkx-sulbactam (UNASYN) 3000 mg injection - Pyxis Override Pullampicillin-sulbactam (UNASYN) 3,000 mg in sodium chloride 0.9 % 100 mL IVPB (1 source)Start: 10-15-2023 End: 64-30-1535bwle 3000 mg intravenously every six hoursampicillin-sulbactam (UNASYN) 3,000 mg in sodium chloride 0.9 % 100 mL IVPBapplicators, cotton balls, etc (COTTON BALLS) misc (2 sources)Start: 10-30-2022 End: 50-97-7433upgzsicjevh, cotton balls, etc (COTTON BALLS) misc 1 each by miscellaneous route in the morning and1 each before bedtime. 200 each 0 10/30/2022 10/15/2023 DiscontinuedStart: 31-10-2892ybrgughtfuj, cotton balls, etc (COTTON BALLS) misc 1 each by miscellaneous route in the morning and1 each before bedtime. 200 each 0 10/30/2022 ActiveArformoterol (Brovana) 15 mcg/2 mL solution for nebulization (4 sources)Start: 06-23-2024 End: 30-09-9721Bhfarsxvdmrs (Brovana) 15 mcg/2 mL solution for nebulization Discontinued 2 ML INHALATION Twice daily as needed for wheezing June 23, 2024 1:00am December 22, 2024 1:55pmStart: 89-24-6486Rwbcyhjebwcz (Brovana) 15 mcg/2 mL solution for nebulization Active 2 ML INHALATION Twice daily as needed for wheezing June 23, 2024 12:00amatorvastatin 40 mg oral tablet (9 sources)HMG-CoA Reductase InhibitorStart: 02-14-2020 End: 75-09-6817zsyd 1 tablet by mouth once dailyAtorvastatin 40 mg tablet Discontinued 40 MG PO Daily February 14, 2020 12:00am June 23, 2024 2:24pm barium sulfate (E-Z-DISK) tablet 700 mg (1 source)Start: 10-19-2023 End: 60-66-9173eoqvtp sulfate (E-Z-DISK) tablet 700 mgbarium sulfate (E-Z-HD) 98 % suspension 340 g (1 source)Start: 10-19-2023 End: 42-26-9764mnaier sulfate (E-Z-HD) 98 % suspension 340 gbarium sulfate (E-Z-PAQUE) 96 % (w/w) powder 176 g (1 source)Start: 10-19-2023 End: 61-47-2056zfuylt sulfate (E-Z-PAQUE) 96 % (w/w) powder 176 gbarium sulfate (E-Z-PASTE) 60 % oral cream 454 g (1 source)Start: 10-19-2023 End: 24-53-8895juwyrt sulfate (E-Z-PASTE) 60 % oral cream 454 gbarium sulfate (LIQUID E-Z PAQUE) 60 % (w/v) suspension 355 mL (1 source)Start: 10-19-2023 End: 13-35-7618nngvbe sulfate (LIQUID E-Z PAQUE) 60 % (w/v) suspension 355 mL barium sulfate (LIQUID POLIBAR PLUS) 105 % (w/v), 58 % (w/w) suspension 300 mL (1 source)Start: 10-19-2023 End: 26-44-5660cbnvdc sulfate (LIQUID POLIBAR PLUS) 105 % (w/v), 58 % (w/w) suspension 300 mLbarium sulfate (VARIBAR HONEY) 40 % (w/v) 29% (w/w) suspension 250 mL (1 source)Start: 10-19-2023 End: 64-29-0352srrnwc sulfate (VARIBAR HONEY) 40 % (w/v) 29% (w/w) suspension 250 mLbarium sulfate (VARIBAR NECTAR) 40 % (w/v) suspension 240 mL (1 source)Start: 10-19-2023 End: 12-83-9774treygo sulfate (VARIBAR NECTAR) 40 % (w/v) suspension 240 mL barium sulfate (VARIBAR PUDDING) 40 % (w/v), 30% (w/w) oral paste 230 mL (1 source)Start: 10-19-2023 End: 60-38-0460oijhnu sulfate (VARIBAR PUDDING) 40 % (w/v), 30% (w/w) oral paste 230 mLbarium sulfate (VARIBAR THIN HONEY) 40 %(w/v), 29% (w/w)(1500 CPS) suspension 250 mL (1 source)Start: 10-19-2023 End: 51-89-5091ayjrgh sulfate (VARIBAR THIN HONEY) 40 %(w/v), 29% (w/w)(1500 CPS) suspension 250 mLbarium sulfate (VARIBAR THIN) 81 % (w/w) powder 148 g (1 source)Start: 10-19-2023 End: 17-36-6460evbixy sulfate (VARIBAR THIN) 81 % (w/w) powder 148 gbenzocaine 6 mg / menthol 10 mg oral lozenge (2 sources)Standardized Chemical AllergenStart: 11-24-2022 End: 89-79-0053ulyk 1 tablet by mouth every two hours as neededbenzocaine- menthoL (CHLORASEPTIC SORE THROAT) 6-10 mg lozenge Dissolve 1 lozenge in the mouth every2 (two) hours as needed for sore throat. 100 tablet 0 11/24/2022 10/15/2023 Discontinuedbudesonide 0.5 mg/ml inhalation suspension (9 sources)CorticosteroidStart: 06-23-2024 End: 20-85-6614qsaz 1 mg by inhalation once daily as needed for wheezing Budesonide 1 mg/2 mL suspension for nebulization Discontinued 1 MG INHALATION Daily as needed for wheezing June 23, 2024 1:00am December 22, 2024 1:55pm Start: 34-22-2292jzhj 2 mL by inhalation once dailybudesonide (PULMICORT) 1 mg/2 mL nebulizer solution Indications: Chronic obstructive pulmonary disease, unspecified COPD type ([facility]) Inhale 2 mL (1 mg total) by nebulization once daily. 60 mL 11 05/12/2024 Activediclofenac sodium 0.01 mg/mg topical gel (5 sources)Nonsteroidal Anti-inflammatory DrugStart: 02-14-2020 End: 16-42-6056maouj 2 g topically three times dailyDiclofenac Sodium 1 % gel Discontinued 2 GM TOPICAL Three times daily February 14, 2020 12:00am June 23, 2024 2:24pmStart: 28-42-3371kgzcp 2 g topically three times dailyDiclofenac Sodium Active 2 GM TOPICAL Three times daily February 14, 2020 12:00am diphenhydrAMINE (2 sources)Histamine-1 Receptor AntagonistStart: 10-16-2023 End: 46-51-3055hktm 50 mg intravenously every six hours as needed for sleep diphenhydrAMINE (BENADRYL) injection 50 mgStart: 10-16-2023 End: 61-10-4568huwjdwlkuuWNAFR (BENADRYL) injection 50 mgdocusate sodium 50 mg / sennosides, nursing home 8.6 mg oral tablet (1 source)Start: 10-15-2023 End: 21-94-8735eche 1 tablet by mouth every twelve hours as needed for constipationsennosides-docusate sodium (SENOKOT-S) 8.6-50 mg 1 tabletdoxycycline hyclate 100 mg oral capsule (4 sources)Tetracycline-class DrugStart: 03-03-2023 End: 69-02-1173vjjb 10 mg by mouth twice dailyDoxycycline Hyclate 100 mg capsule Discontinued 10 MG PO Twice daily March 03, 2023 12:00am March 09, 2023 1:24pm until 03/05/23empagliflozin 10 mg oral tablet (13 sources)Sodium-Glucose Cotransporter 2 InhibitorStart: 03-18-2024 End: 01-28-4739hlfq 1 tablet by mouth once daily in the morningEmpagliflozin (Jardiance) 10 mg tablet Discontinued 10 MG PO Every morning June 23, 2024 1:00am December 22, 2024 1:54pmglimepiride 2 mg oral tablet (5 sources)SulfonylureaStart: 02-14-2020 End: 48-90-2856uxhp 1 tablet by mouth once dailyGlimepiride 2 mg tablet Discontinued 2 MG PO Daily February 14, 2020 12:00am March 09, 2023 1:24pm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 front wall of thorax, initial encounter; Translations: [Abrasion of left ear, initial encounter]Onset: [id number] Unclassified (11 sources)Onset: Results Test NameValueInterpretationReference RangeFacilityCBC WITH AUTO DIFFERENTIALon [id number] ABSOLUTE COUNT (10*3/UL) BY AUTOMATED COUNT0.1 10*3/uLNormal 0.0-0.2[facility], HillcrestComment on above:Performed By: #### CBCA #### [facility] ([address] [place] [address] VIRBASOPHILS RELATIVE PERCENT BY AUTOMATED COUNT0.7 %Normal [facility] HospitalComment on above:Performed By: #### CBCA #### [facility] ([address] [place] [address] VIRCELLAVISION DIFFERENTIAL TYPEAUTOMATED DIFFERENTIALNormal [facility] HospitalComment on above:Performed By: #### CBCA #### [facility] ([address] [place] [address] VIREosinophils (Bld) [#/Vol]0.4 10*3/uLNormal0.0-0.4[facility] HospitalComment on above:Performed By: #### CBCA #### [facility] ([address] [place] [address] VIREOSINOPHILS RELATIVE PERCENT BY AUTOMATED COUNT4.4 %Normal [facility] HospitalComment on above:Performed By: #### CBCA #### [facility] ([address] [place] [address] VIRErythrocyte distribution width (RBC) [Ratio]13.0 %Normal 11.5-15ProHarris Health System Ben Taub HospitalComment on above:Performed By: #### CBCA #### [facility] ([address] [place] [address] VIRHematocrit (Bld) [Volume fraction]47.5 %Kasnhm30-35 [facility] HospitalComment on above:Performed By: #### CBCA #### [facility] ([address] [place] [address] VIRHemoglobin (Bld) [Mass/Vol]16.2 g/fCHqlbkt00-05ZysXdddxcHarris Health System Ben Taub HospitalComment on above:Performed By: #### CBCA #### [facility] ([address] [place] [address] VIRLYMPHOCYTES ABSOLUTE COUNT (10*3/UL) BY AUTOMATED COUNT2.3 10*3/uLNormal1.0-3.5PUC HealthComment on above:Performed By: #### CBCA #### [facility] ([facility]) [facility] [address] [address] VIRLYMPHOCYTES RELATIVE PERCENT BY AUTOMATED COUNT24.1 %Normal [facility] HospitalComduane l. waters hospital on above:Performed By: #### CBCA #### [facility] ([facility]) [address] [place], [place] [address] [place] [address] VIRMCH (RBC) [Entitic mass]31.5 noYtbuks01-21JmnLwyjsrHarris Health System Ben Taub HospitalComment on above:Performed By: #### CBCA #### [facility] ([address] [place] [address] VIRMCHC (RBC) [Mass/Vol]34.2 g/gJGhbkxv52-30LpkAvvnrwHarris Health System Ben Taub HospitalComment on above:Performed By: #### CBCA #### [facility] ([address] [place] [address] VIRMCV (RBC) [Entitic vol]92 nWXmvdib10-403YivIklycn [facility]remont HospitalComment on above:Performed By: #### CBCA #### [facility] ([facility]) [address] [place] [address] [place] [address] VIRMONOCYTES ABSOLUTE COUNT (10*3/UL) BY AUTOMATED COUNT0.7 10*3/uLNormal0.0-0.9[facility] HospitalComduane l. waters hospital on above:Performed By: #### CBCA #### [facility] ([facility]) [address] [place] [address] [place] [address] VIRMONOCYTES RELATIVE PERCENT BY AUTOMATED COUNT7.6 %Normal [facility] HospitalComduane l. waters hospital on above:Performed By: #### CBCA #### [facility] ([address] [place] [address] VIRNEUTROPHILS ABSOLUTE COUNT BY AUTOMATED COUNT6.0 10*3/uL Normal1.5-6.6[facility] HospitalComment on above:Performed By: #### CBCA #### [facility] ([facility]) [address] [place], [place] [address] [place] [address] VIRNEUTROPHILS RELATIVE PERCENT BY AUTOMATED COUNT63.2 %Normal [facility] HospitalComment on above:Performed By: #### CBCA #### [facility] ([address] [place] [address] VIRPlatelet mean volume (Bld) [Entitic vol]9.7 fLNormal7-12 [facility] HospitalComment on above:Performed By: #### CBCA #### [facility] ([address] [place] [address] VIRPlatelets (Bld) [#/Vol]215 10*3/eNLwotgt291-497CycMzvshoNorwalk Memorial HospitalComment on above:Performed By: #### CBCA #### [facility] ([address] [place] [address] VIRRBC COUNT5.15 X10E12/LNormal4.1-5.7[facility] HospitalComment on above:Performed By: #### CBCA #### [facility] ([address] [place] [address] VIRWBC (Bld) [#/Vol]9.6 10*3/uLNormal4-11[facility] HospitalComment on above:Performed By: #### CBCA #### [facility] ([facility]) [address] [place] [address] [place] [address] VIRCOMPREHENSIVE METABOLIC PANELon 04-25-1520Ailelif [Mass/Vol]3.5 g/dLNormal3.2-5.3PUC HealthComment on above: Performed By: #### CMP #### [facility] ([address] [place] [address] VIRALP [Catalytic activity/Vol]164 U/QVkqa84-826IhjWhbvheHarris Health System Ben Taub HospitalComment on above:Performed By: #### CMP #### [facility] ([place] [address] [place] [address] VIRALT [Catalytic activity/Vol]61 U/LHigh<=40ProHarris Health System Ben Taub HospitalComment on above:Performed By: #### CMP #### [facility] ([place] [address] [place] [address] VIRAnion gap [Moles/Vol]10 mmol/LNormal5-15ProHarris Health System Ben Taub HospitalComment on above:Performed By: #### CMP #### [facility] ([address] [place] [address] VIRAST [Catalytic activity/Vol]32 U/LNormal<=41ProHarris Health System Ben Taub HospitalComment on above:Performed By: #### CMP #### [facility] ([address] [address] VIRBilirubin [Mass/Vol]0.6 mg/dLNormal0.3-1.2PUC HealthComment on above:Performed By: #### CMP #### [facility] ([address] [address] VIRCalcium [Mass/Vol]10.5 mg/dLNormal8.5-10.5PUC HealthComment on above:Performed By: #### CMP #### [facility] ([address] [address] VIRChloride [Moles/Vol]100 mmol/IJerlzd16-661HcnFmdoiwHarris Health System Ben Taub HospitalComment on above:Performed By: #### CMP #### [facility] ([place] [address] [place] [address] VIRCO2 [Moles/Vol]27 mmol/MIrnmvs51-55WxrEbgccp [facility]ont HospitalComment on above:Performed By: #### CMP #### [facility] ([address] [address] VIRCreatinine [Mass/Vol]1.11 mg/dLNormal0.70-1.20[facility] HospitalComment on above:Result Comment: METHOD TRACEABLE TO IDMS STANDARDPerformed By: #### CMP #### [facility] ([address] [address] VIRGFR/1.73 sq M.predicted among non-blacks MDRD (S/P/Bld) [Vol rate/Area]74 mL/min/{1.73_m2}Normal>=60ProHarris Health System Ben Taub HospitalComment on above:Result Comment: eGFR not reported due to non-numeric value for Creatinine. Reported eGFR is based on the CKD-EPI 2020 equation that does not use a race coefficient.Performed By: #### CMP #### [facility] ([address] [address] VIRGlucose [Mass/Vol]320 mg/lAPmaz89-99YxbWwwxamHarris Health System Ben Taub HospitalComment on above:Performed By: #### CMP #### [facility] ([address] [address] VIRPotassium [Moles/Vol]4.0 mmol/LNormal3.5-5.0ProHarris Health System Ben Taub HospitalComment on above:Performed By: #### CMP #### [address] [address] VIRProtein [Mass/Vol]7.5 g/dLNormal6.0-8.0ProHarris Health System Ben Taub HospitalComment on above:Performed By: #### CMP #### [address] [address] VIRSodium [Moles/Vol]137 mmol/FOpakmm963-906StvHplojg [facility]ont HospitalComment on above:Performed By: #### CMP #### [facility] ([facility]) [address] [place] [address] VIRUrea nitrogen [Mass/Vol]29 mg/dLProMedica Uc San Diego Medical Center, HillcrestComment on above:Performed By: #### CMP #### [facility] ([facility]) [address] [place] [address] VIRCT ABDOMEN AND PELVIS WO CONTon 13-27-6773TC ABDOMEN AND PELVIS WO CONTCT ABDOMEN AND [...] by Phuc Gomez MD on 05/03/2025 5:51 PMNormalNorwalk Memorial HospitalCT BRAIN WO CONTon 08-65-5040KN BRAIN WO CONTCT BRAIN WO CONT HISTORY: [...] by Phuc Gomez MD on 05/03/2025 5:39 PMNormalNorwalk Memorial HospitalCT CERVICAL SPINE WO CONTon 67-88-0875LG CERVICAL SPINE WO CONTCT CERVICAL SPINE WO [...] by Aubrey Richards MD on 05/03/2025 5:43 PMNormalNorwalk Memorial HospitalLIPASEon 28-75-8394Zeirnx [Catalytic activity/Vol]46 U/QJlbk63-39 [facility] HospitalComment on above:Performed By: #### LIPA #### [facility] ([address] [address] VIRPOCT NURSING URINE MACROSCOPIC UAon 55-14-9523NQVFCIXLG SCOTT NegativeNormalNegativeNorwalk Memorial HospitalComment on above:Performed By: #### NUM ####[facility] ([address] [address] VIRBLOOD/HGB NURNegativeNormalNegativeNorwalk Memorial HospitalComment on above:Performed By: #### NUM ####[address] [address] VIRGLUCOSE SCOTT>=1000 mg/dL AbnormalNegativeNorwalk Memorial HospitalComment on above:Performed By: #### NUM ####[facility] ([address] [address] VIRKETONES NURTraceAbnormalNegativeNorwalk Memorial HospitalComment on above:Performed By: #### NUM ####[address] [address] VIRLEUKOCYTE ESTERASE NURNegativeNormalNegative [facility] HospitalComment on above:Performed By: #### NUM ####[facility] ([address] [place] [address] VIRNITRITE NURNegativeNormalNegativeProHarris Health System Ben Taub HospitalComment on above:Performed By: #### NUM ####[facility] ([address] [place] [address] VIRPH NUR6.7Qsmtqu9.0, 6.0, 6.5, 7.0, 7.5, 8.0, 8.5, 5.5 [facility] HospitalComment on above:Performed By: #### NUM ####[facility] ([address] [place] [address] VIRPROTEIN NURTraceAbnormalNegativeNorwalk Memorial HospitalComment on above:Performed By: #### NUM ####[facility] ([address] [place] [address] VIRSPECIFIC GRAVITY NUR1.111Ovlzes9.010, 1.015, 1.020, 1.025ProHarris Health System Ben Taub HospitalComment on above:Performed By: #### NUM ####[facility] ([address], [place] [address] VIRUROBILINOGEN NUR4.0 E.U./dLNormalNorwalk Memorial HospitalComment on above:Performed By: #### NUM ####[facility] ([address] [place] [address] VIRTROP I, HIGH SENSITIVITY 1 HOURon 05-03-2025 TROPONIN I, HIGH SENSITIVITY4 ng/LNormal<21ProHarris Health System Ben Taub HospitalComment on above:Performed By: #### [email or web address] ####[facility] ([address] [place] [address] VIRTROPONIN I, HIGH SENSITIVITY 0 HOURon 93-75-9609ATEOAZDL I, HIGH SENSITIVITY4 ng/LNormal<21ProMethod[facility] on above:Performed By: #### TNIHS0 #### [facility] ([facility]) [address] [place] [address] VIRGlucose Glucometer (BldC) [Mass/Vol]Ordered By: Olya Madrid on 31-91-2622Efgnmfp [Mass/Vol]Capillary blood glucose measurement by glucometer (mass/volume)[facility]. Elizabeth HospitalComment on above:Random Glucose Reference Range is dependent on time and content of last meal. Glucose of more than 200 mg/dL in a nonstressed, ambulatory subject supports the diagnosis of Diabetes Mellitus.Glucose Poct Glucometerson 68-89-9161Apszmkc9 Glu2: Cleaned MeterNoAtrium Health Wake Forest Baptist Medical Center Physician GroupComment on above:Result Comment: PERFORMED BY: [address] [place] [address] PATHOLOGIST MATERIAL DAMAGE ADJUSTER DARREN VEGA M.D.Performed By: #### GLULS #### Point of Care testing ,Glucose [Mass/Vol]111 mg/dLKindred Hospital Bay Area-St. Petersburg Physician GroupComment on above: Result Comment: Random Glucose Reference Range is dependent on time and content of last meal. Glucose of more than 200 mg/dL in a nonstressed, ambulatory subject supports the diagnosis of Diabetes Mellitus.Performed By: #### GLULS #### Point of Care testing ,No Panel InformationOrdered By: Olya Madrid on 21-11-7263Ofipjae Glucose CommentGlu2: cleaned meterSt. Elizabeth HospitalGlucose Glucometer (BldC) [Mass/Vol]Ordered By: Olya Madrid on 24-98-1583Gmzednq [Mass/Vol] Capillary blood glucose measurement by glucometer (mass/volume)[facility]. Elizabeth HospitalComment on above:Random Glucose Reference Range is dependent on time and content of last meal. Glucose of more than 200 mg/dL in a nonstressed, ambulatory subject supports the diagnosis of Diabetes Mellitus. Glucose Poct Glucometerson 73-13-2158Zsliqpe5Pdw8: Cleaned MeterKindred Hospital Bay Area-St. Petersburg Physician GroupComment on above:Result Comment: PERFORMED BY: [facility] [address] [place] [place] [address] PATHOLOGIST MATERIAL DAMAGE ADJUSTER DARREN VEGA M.D.Performed By: #### GLULS #### Point of Care testing ,Glucose [Mass/Vol]109 mg/dLKindred Hospital Bay Area-St. Petersburg Physician GroupComment on above: Result Comment: Random Glucose Reference Range is dependent on time and content of last meal. Glucose of more than 200 mg/dL in a nonstressed, ambulatory subject supports the diagnosis of Diabetes Mellitus.Performed By: #### GLULS #### Point of Care testing ,Glucose [Mass/Vol]95 mg/dLKindred Hospital Bay Area-St. Petersburg Physician GroupComment on above: Result Comment: Random Glucose Reference Range is dependent on time and content of last meal. Glucose of more than 200 mg/dL in a nonstressed, ambulatory subject supports the diagnosis of Diabetes Mellitus. PERFORMED BY: [facility] [address] [place] [address] PATHOLOGIST MATERIAL DAMAGE ADJUSTER DARREN VEGA M.D.Performed By: #### GLULS #### Point of Care testing ,No Panel InformationOrdered By: Olya Madrid on 09-07-8276Hxigrrg Glucose CommentGlu2: cleaned [facility] CenterXR KNEE LT 3 VWSon 24-43-8860QB KNEE LT 3 VWSXR KNEE LT 3 VWS HISTORY: Pain, swelling, fall COMPARISON: None FINDINGS: Multiple views of the left knee were obtained. Osseous structures are demineralized. Anterior soft tissue swelling with small effusion. No fracture or dislocation. Minimal degenerative change. No bony destructive process. IMPRESSION: * No acute osseous abnormality. Finalized by Doron Doll MD on 07/06/2024 10:40 [facility] HospitalXR KNEE RT 3 VWSon 10-50-7984KZ KNEE RT 3 VWSXR KNEE RT 3 [...] by Wang Washington MD on 07/06/2024 10:33 PMNormalMary Rutan Hospital auto differentialon [id number] (Bld) [#/Vol]0.1 10*3/uL [facility] CenterBasophils/100 WBC (Bld)1.1 %[facility] Eosinophils (Bld) [#/Vol]0.3 10*3/uLAshtabula County Medical CenterEosinophils/100 WBC (Bld)4.4 %[facility] CenterErythrocyte distribution width (RBC) [Ratio] 14.1 %11.5 - 15.0 %[facility] Medical CenterHematocrit (Bld) [Volume fraction]40.2 %39 - 49 %[facility] CenterHemoglobin (Bld) [Mass/Vol]13.8 g/dL13.0 - 17.0 g/dLAshtabula County Medical CenterInterpretation and review of laboratory results AbnormalAshtabula County Medical CenterLymphocytes (Bld) [#/Vol]2.0 10*3/[facility]inai HospitalLymphocytes/100 WBC (Bld)25.6 %[facility] CenterMCH (RBC) [Entitic mass]31.9 pg27 - 34 [facility] HospitalMCHC (RBC) [Mass/Vol]34.4 g/dL32 - 36 g/dLAshtabula County Medical CenterMCV (RBC) [Entitic vol]93 fL80 - 100 fL [facility] CenterMonocytes (Bld) [#/Vol]1.0 10*3/uLHighAshtabula County Medical CenterMonocytes/100 WBC (Bld)12.2 %[facility] Medical CenterNeutrophils (Bld) [#/Vol]4.5 10*3/uLAshtabula County Medical CenterNeutrophils/100 WBC (Bld)56.7 % [facility] Medical CenterPlatelet mean volume (Bld) [Entitic vol]8.9 fL7 - 12 fL [facility] CenterPlatelets (Bld) [#/Vol]281 10*3/[facility] RBC (Bld) [#/Vol]4.34 10*6/[facility] HospitalWBC corrected for nucl RBC Auto (Bld) [#/Vol]8.0[facility] Health NetworkComprehensive metabolic panelon 87-93-3311Fbendhv [Mass/Vol]3.5 g/dL3.2 - 5.3 g/dLAshtabula County Medical CenterALP [Catalytic activity/Vol]95 U/L39 - 130 U/[facility] Health SystemALT No additional P-5'-P [Catalytic activity/Vol]82 U/LHigh0 - 40 U/L [facility] CenterAnion gap [Moles/Vol]11 mmol/L5 - 15 mmol/[facility] Health SystemAST [Catalytic activity/Vol]46 U/LHigh0 - 41 U/[facility] DaytonBilirubin [Mass/Vol]0.9 mg/dL0.3 - 1.2 mg/dLAshtabula County Medical CenterCalcium [Mass/Vol]10.1 mg/dL8.5 - 10.5 mg/dLAshtabula County Medical CenterChloride [Moles/Vol] 104 mmol/L98 - 109 mmol/[facility] SystemCO2 [Moles/Vol]24 mmol/L22 - 32 mmol/[facility] SystemCreatinine [Mass/Vol]0.80 mg/dL0.70 - 1.20 mg/dL [facility] CenterComment on above:METHOD TRACEABLE TO [facility] STANDARDeGFR (CKD-EPI)non-race dependent- Critical access hospitalComment on above: Reported eGFR is based on the CKD-EPI 2020 equation that does not use a race coefficient. Glucose [Mass/Vol]190 mg/vVYzks44 - 99 mg/dLAshtabula County Medical Center Interpretation and review of laboratory resultsAbnormalAshtabula County Medical Center Potassium [Moles/Vol]3.6 mmol/L3.5 - 5.0 mmol/[facility] Health SystemProtein [Mass/Vol]7.8 g/dL6.0 - 8.0 g/dLScionHealthodium [Moles/Vol]139 mmol/L134 - 146 mmol/[facility] SystemUrea nitrogen [Mass/Vol]21 mg/dL5 - 27 mg/dLAshtabula County Medical CenterGlucose Glucometer (BldC) [Mass/Vol]on 99-18-7557Yonbosj [Mass/Vol]284 mg/zYFcuy02 - 99 mg/dLAshtabula County Medical Center Interpretation and review of laboratory resultsAbnoAspirus Riverview Hospital and ClinicsGlucose [Mass/Vol]194 mg/eACgzj68 - 99 mg/dLAshtabula County Medical CenterInterpretation and review of laboratory resultsAbnoTemple University HospitalMagnesiumon 68-83-1721Odgcrgrah [Mass/Vol] 1.8 mg/dL1.8 - 2.6 mg/dLAshtabula County Medical CenterNo Panel Informationon 10-19-2023 [facility] CenterRF videography Hypopharynx and Esophagus Viewson 10-19-2023 History: [...] Deo Martínez MD on 10/19/2023 10:56 AM [facility] CenterRadiology Study observation (narrative)[facility] CenterRF videography Hypopharynx and Esophagus ViewsOrdered By: Deo Martínez on 00-14-6750ArhGulndxLouis Stokes [facility] Work Phone: cbc auto differentialon [id number] (Bld) [#/Vol]0.1 10*3/[facility] HospitalBasophils/100 WBC (Bld)1.2 %[facility] CenterEosinophils (Bld) [#/Vol]0.3 10*3/[facility] Eosinophils/100 WBC (Bld)4.2 %[facility] Medical CenterErythrocyte distribution width (RBC) [Ratio]14.2 %11.5 - 15.0 %[facility] Medical CenterHematocrit (Bld) [Volume fraction]38.4 %Low39 - 49 %[facility] Medical CenterHemoglobin (Bld) [Mass/Vol]13.1 g/dL13.0 - 17.0 g/dLAshtabula County Medical CenterInterpretation and review of laboratory resultsAbnormalAshtabula County Medical CenterLymphocytes (Bld) [#/Vol]1.9 10*3/uLAshtabula County Medical CenterLymphocytes/100 WBC (Bld)30.1 % Doctors HospitalH (RBC) [Entitic mass]31.5 pg27 - 34 [facility] HospitalMCHC (RBC) [Mass/Vol]34.1 g/dL32 - 36 g/dLAshtabula County Medical CenterMCV (RBC) [Entitic vol]92 fL80 - 100 [facility] CenterMonocytes (Bld) [#/Vol]1.0 10*3/uLSentara Halifax Regional HospitalMonocytes/100 WBC (Bld)15.3 %[facility] Medical CenterNeutrophils (Bld) [#/Vol]3.1 10*3/uLAshtabula County Medical CenterNeutrophils/100 WBC (Bld)49.2 %[facility] Hospital SystemPlatelet mean volume (Bld) [Entitic vol] 9.1 fL7 - 12 [facility] CenterPlatelets (Bld) [#/Vol]245 10*3/uL [facility] SystemRBC (Bld) [#/Vol]4.15 10*6/uLAshtabula County Medical CenterWBC corrected for nucl RBC Auto (Bld) [#/Vol]6.2PChan Soon-Shiong Medical Center at WindberComprehensive metabolic panelon 79-55-0118Shpogqk [Mass/Vol]3.4 g/dL3.2 - 5.3 g/dLAshtabula County Medical CenterALP [Catalytic activity/Vol]91 U/L39 - 130 U/[facility] DaytonALT No additional P-5'-P [Catalytic activity/Vol] 76 U/LHigh0 - 40 U/[facility] DaytonAnion gap [Moles/Vol]9 mmol/L5 - 15 mmol/[facility] SystemAST [Catalytic activity/Vol]45 U/LHigh0 - 41 U/L [facility] CenterBilirubin [Mass/Vol]0.9 mg/dL0.3 - 1.2 mg/dLAshtabula County Medical CenterCalcium [Mass/Vol]9.9 mg/dL8.5 - 10.5 mg/dLAshtabula [facility] Center Chloride [Moles/Vol]107 mmol/L98 - 109 mmol/[facility] SystemCO2 [Moles/Vol]23 mmol/L22 - 32 mmol/[facility] DaytonCreatinine [Mass/Vol] 0.74 mg/dL0.70 - 1.20 mg/dLAshtabula County Medical CenterComment on above:METHOD TRACEABLE TO IDSC STANDARDeGFR (CKD-EPI)non-race dependent- PINJefferson Memorial HospitalComment on above: Reported eGFR is based on the CKD-EPI 2020 equation that does not use a race coefficient. Glucose [Mass/Vol]226 mg/zBUgbs81 - 99 mg/dLAshtabula County Medical Center Interpretation and review of laboratory resultsAbnormalAshtabula County Medical Center Potassium [Moles/Vol]3.6 mmol/L3.5 - 5.0 mmol/[facility] DaytonProtein [Mass/Vol]7.2 g/dL6.0 - 8.0 g/dLScionHealthodium [Moles/Vol]139 mmol/L134 - 146 mmol/LProMedica Corewell Health Zeeland HospitalUrea nitrogen [Mass/Vol]24 mg/dL5 - 27 mg/dLAshtabula County Medical CenterGlucose Glucometer (BldC) [Mass/Vol]on 21-49-7772Nxuqqvc [Mass/Vol]235 mg/yMZhvd94 - 99 mg/dLAshtabula County Medical Center Interpretation and review of laboratory resultsAbnoAspirus Riverview Hospital and ClinicsGlucose [Mass/Vol]240 mg/qYNpwf65 - 99 mg/dLAshtabula County Medical CenterInterpretation and review of laboratory resultsAbnoTemple University HospitalGlucose [Mass/Vol]264 mg/cEGgdj37 - 99 mg/dL [facility] CenterInterpretation and review of laboratory resultsAbnoal [facility] NetworkGlucose [Mass/Vol]217 mg/aHOflu53 - 99 mg/dLAshtabula County Medical CenterInterpretation and review of laboratory results AbnormalLehigh Valley Health NetworkMagnesiumon 10-18-2023 Magnesium [Mass/Vol]1.9 mg/dL1.8 - 2.6 mg/dLAshtabula County Medical CenterNo Panel Informationon 59-00-4742OnrBhghbfLouis Stokes Cleveland VA Medical CenterCBC auto differentialon 05-69-0689Fwkmayyso (Bld) [#/Vol]0.1 10*3/uLAshtabula County Medical CenterBasophils/100 WBC (Bld)1.0 %[facility] CenterEosinophils (Bld) [#/Vol]0.3 10*3/uL [facility] CenterEosinophils/100 WBC (Bld)4.4 %[facility] Erythrocyte distribution width (RBC) [Ratio]14.3 %11.5 - 15.0 %[facility] Medical CenterHematocrit (Bld) [Volume fraction]38.6 %Low39 - 49 %[facility] Medical CenterHemoglobin (Bld) [Mass/Vol]13.2 g/dL13.0 - 17.0 g/dLAshtabula County Medical CenterInterpretation and review of laboratory resultsAbnormalAshtabula County Medical CenterLymphocytes (Bld) [#/Vol]1.5 10*3/uLAshtabula County Medical CenterLymphocytes/100 WBC (Bld)24.4 %[facility] Medical CenterMCH (RBC) [Entitic mass]31.4 pg27 - 34 pg [facility] Medical CenterMCHC (RBC) [Mass/Vol]34.2 g/dL32 - 36 g/dLAshtabula County Medical CenterMCV (RBC) [Entitic vol]92 fL80 - 100 [facility] Monocytes (Bld) [#/Vol]1.0 10*3/[facility] SystemMonocytes/100 WBC (Bld)16.9 %[facility] CenterNeutrophils (Bld) [#/Vol]3.2 10*3/uLAshtabula County Medical CenterNeutrophils/100 WBC (Bld)53.3 %[facility] CenterPlatelet mean volume (Bld) [Entitic vol]8.8 fL7 - 12 [facility] CenterPlatelets (Bld) [#/Vol]244 10*3/[facility] HospitalRBC (Bld) [#/Vol]4.20 10*6/[facility] HospitalWBC corrected for nucl RBC Auto (Bld) [#/Vol]6.0[facility] NetworkComprehensive metabolic panelon 64-88-1010Uuodwdh [Mass/Vol]3.1 g/dLLow3.2 - 5.3 g/dLAshtabula County Medical CenterALP [Catalytic activity/Vol]87 U/L39 - 130 U/[facility] DaytonALT No additional P-5'-P [Catalytic activity/Vol]71 U/LHigh0 - 40 U/[facility] Health SystemAnion gap [Moles/Vol]9 mmol/L5 - 15 mmol/[facility] Health SystemAST [Catalytic activity/Vol]41 U/L0 - 41 U/[facility] DaytonBilirubin [Mass/Vol]0.9 mg/dL0.3 - 1.2 mg/dLAshtabula County Medical CenterCalcium [Mass/Vol]9.8 mg/dL8.5 - 10.5 mg/dLAshtabula County Medical CenterChloride [Moles/Vol]107 mmol/L98 - 109 mmol/L [facility] CenterCO2 [Moles/Vol]23 mmol/L22 - 32 mmol/[facility] DaytonCreatinine [Mass/Vol]0.76 mg/dL0.70 - 1.20 mg/dLAshtabula County [facility] Center Comment on above:METHOD TRACEABLE TO [facility] STANDARDeGFR (CKD-EPI)non-race dependent- Critical access hospitalComment on above: Reported eGFR is based on the CKD-EPI 2020 equation that does not use a race coefficient. Glucose [Mass/Vol]153 mg/bGEhad37 - 99 mg/dLAshtabula County Medical Center Interpretation and review of laboratory resultsAbnoGranville Medical Center Potassium [Moles/Vol]3.5 mmol/L3.5 - 5.0 mmol/[facility] SystemProtein [Mass/Vol]6.9 g/dL6.0 - 8.0 g/dLScionHealthodium [Moles/Vol]139 mmol/L134 - 146 mmol/[facility] DaytonUrea nitrogen [Mass/Vol]24 mg/dL5 - 27 mg/dLAshtabula County Medical CenterGlucose Glucometer (BldC) [Mass/Vol]on 36-47-3531Hwbtzen [Mass/Vol]251 mg/zHLhjd32 - 99 mg/dLAshtabula County Medical Center Interpretation and review of laboratory resultsAbnoAspirus Riverview Hospital and ClinicsGlucose [Mass/Vol]218 mg/qILgws52 - 99 mg/dLAshtabula County Medical CenterInterpretation and review of laboratory resultsAbnormNew Lifecare Hospitals of PGH - Alle-KiskiGlucose [Mass/Vol]207 mg/wLClxd15 - 99 mg/dL [facility] CenterInterpretation and review of laboratory resultsAbnormal [facility] NetworkGlucose [Mass/Vol]124 mg/xFIgun73 - 99 mg/dLAshtabula County Medical CenterInterpretation and review of laboratory results AbnormalLehigh Valley Health NetworkMagnesiumon 10-17-2023 Magnesium [Mass/Vol]1.8 mg/dL1.8 - 2.6 mg/dLAshtabula County Medical CenterNo Panel Informationon 98-21-4581ZwjUvftjxLouis Stokes Cleveland VA Medical CenterCBC auto differentialon 65-72-4313Ueiaphgso (Bld) [#/Vol]0.1 10*3/uLAshtabula County Medical CenterBasophils/100 WBC (Bld)1.1 %[facility] CenterEosinophils (Bld) [#/Vol]0.1 10*3/uL [facility] CenterEosinophils/100 WBC (Bld)1.5 %[facility] Erythrocyte distribution width (RBC) [Ratio]14.3 %11.5 - 15.0 %[facility] CenterHematocrit (Bld) [Volume fraction]38.9 %Low39 - 49 %[facility] CenterHemoglobin (Bld) [Mass/Vol]13.4 g/dL13.0 - 17.0 g/dLAshtabula County Medical CenterInterpretation and review of laboratory resultsAbnormMount Carmel Health SystemLymphocytes (Bld) [#/Vol]1.6 10*3/[facility]inai HospitalLymphocytes/100 WBC (Bld)19.8 %[facility] CenterMCH (RBC) [Entitic mass]31.7 pg27 - 34 pg [facility] CenterMCHC (RBC) [Mass/Vol]34.5 g/dL32 - 36 g/dLAshtabula County Medical CenterMCV (RBC) [Entitic vol]92 fL80 - 100 [facility] Monocytes (Bld) [#/Vol]1.0 10*3/uLSentara Halifax Regional HospitalMonocytes/100 WBC (Bld)12.2 %[facility] CenterNeutrophils (Bld) [#/Vol]5.3 10*3/[facility] HospitalNeutrophils/100 WBC (Bld)65.4 %[facility] CenterPlatelet mean volume (Bld) [Entitic vol]8.7 fL7 - 12 [facility] CenterPlatelets (Bld) [#/Vol]247 10*3/[facility] HospitalRBC (Bld) [#/Vol]4.22 10*6/[facility] HospitalWBC corrected for nucl RBC Auto (Bld) [#/Vol]8.1PElizabeth HospitalThe Old ReaderHenry County HospitalTropical SkoopsCardiac echo study ProcedureOrdered By: Fanny Bill on 50-02-4862Evmglk root3.80 [facility] HealthThe Old Reader Work Phone: [phone] %28 - 44 %[facility] HospitalGoal Zero Work Phone: [phone] Septum Diastolic Thickness by 2D13 cm [facility] HospitalGo[facility] Zero Work Phone: FND6.30 cm0.6 - 1.1 [facility] PittsburghBi[facility] Work Phone: LA size3.80 [facility] HealthThe Old Reader Work Phone: Left Ventricle [phone] [facility] CenterThe Old Reader Work Phone: LV RWT 2D68.57St[facility] Alb[facility] HospitalCascade Financial Technology Corp Work Phone: [phone] cm4.72 - 6.55 [facility] HealthThe Old Reader Work Phone: YZBLe2.50 cm2.78 - 4.21 [facility] PittsburghBi[facility] Work Phone: ZA3.20 cm0.6 - 1.1 [facility] PittsburghBi[facility] Work Phone: RJLABX-0.63St. Alb[facility] HospitalCascade Financial Technology Corp Work Phone: AWTKGQ-5.48St[facility] HospitalCascade Financial Technology Corp Work Phone: [phone] Financial Technology Corp Work Phone: [phone] echo study Procedureon 18-50-6391Ynjw Ventricle: Systolic function is normal with an [...] ventricular wall motion is normal.XCELERARadiology Study observation (narrative)[facility] CenterComprehensive metabolic panelon 10-16-2023 Albumin [Mass/Vol]3.3 g/dL3.2 - 5.3 g/dLBlanchard Valley Health System [facility] Health SystemALP [Catalytic activity/Vol]93 U/L39 - 130 U/LProMedandalusia health Health SystemALT No additional P-5'-P [Catalytic activity/Vol]81 U/LHigh0 - 40 U/[facility] Health SystemAnion gap [Moles/Vol]9 mmol/L5 - 15 mmol/LPrBanner Fort Collins Medical Center Health SystemAST [Catalytic activity/Vol]46 U/LHigh0 - 41 U/[facility] SystemBilirubin [Mass/Vol]0.9 mg/dL0.3 - 1.2 mg/dLAshtabula County Medical CenterCalcium [Mass/Vol]10.1 mg/dL8.5 - 10.5 mg/dLAshtabula County Medical CenterChloride [Moles/Vol]106 mmol/L98 - 109 mmol/L [facility] CenterCO2 [Moles/Vol]22 mmol/L22 - 32 mmol/[facility] SystemCreatinine [Mass/Vol]0.71 mg/dL0.70 - 1.20 mg/dLAs[facility]abula [facility] Comment on above:METHOD TRACEABLE TO IDSC STANDARDeGFR (CKD-EPI)non-race dependent- Critical access hospitalComment on above: Reported eGFR is based on the CKD-EPI 2020 equation that does not use a race coefficient. Glucose [Mass/Vol]180 mg/mHJbcb01 - 99 mg/dLAshtabula County Medical Center Interpretation and review of laboratory resultsAbnormalAs[facility]abula [facility] Potassium [Moles/Vol]3.9 mmol/L3.5 - 5.0 mmol/LProMedica Health SystemProtein [Mass/Vol]7.2 g/dL6.0 - 8.0 g/dLScionHealthodium [Moles/Vol]137 mmol/L134 - 146 mmol/LProMedica Magruder Hospital SystemUrea nitrogen [Mass/Vol]24 mg/dL5 - 27 mg/dLLehigh Valley Health NetworkGlucose Glucometer (BldC) [Mass/Vol]on 71-51-6753Evwnjym [Mass/Vol]175 mg/uINkck36 - 99 mg/dLWVUMedicine Barnesville Hospital SystemInterpretation and review of laboratory resultsAbnormalLehigh Valley Health NetworkGlucose [Mass/Vol]128 mg/rXMtif63 - 99 mg/dL [facility] SystemInterpretation and review of laboratory resultsAbnormal [facility] NetworkGlucose [Mass/Vol]206 mg/iCRqit24 - 99 mg/dLWVUMedicine Barnesville Hospital SystemInterpretation and review of laboratory results AbnormalLehigh Valley Health NetworkGlucose [Mass/Vol]144 mg/qEXdms49 - 99 mg/dLWVUMedicine Barnesville Hospital SystemInterpretation and review of laboratory resultsAbnoalLehigh Valley Health NetworkMR Brain WO contraston [id number]:MR BRAIN WO CONT INDICATION: Mental status change, [...] by Fermin Flowers on 10/16/2023 10:39 AM [facility] CenterRadiology Study observation (narrative)[facility] Brain WO contrastOrdered By: Fermin Flowers on 85-72-4515PzhVbizveLouis Stokes Cleveland VA Medical Center Work Phone: Magnesiumon 20-20-4384Qcejujubi [Mass/Vol]1.8 mg/dL1.8 - 2.6 mg/dLAshtabula County Medical CenterMagnesium [Mass/Vol]on 37-57-1941GghYkvcgqLouis Stokes Cleveland VA Medical CenterGlucose Glucometer (BldC) [Mass/Vol]on 63-07-3006Uontxbe [Mass/Vol] 150 mg/gBGdqm26 - 99 mg/dLAshtabula County Medical CenterInterpretation and review of laboratory resultsAbnoTemple University HospitalGlucose [Mass/Vol]97 mg/dL65 - 99 mg/dLLehigh Valley Health Network Glucose [Mass/Vol]90 mg/dL65 - 99 mg/dLLehigh Valley Health NetworkBlood gas, venouson 28-39-4714Wmiqjzhx patency Wrist artery --pre arterial punctureAshtabula County Medical CenterBase excess Calc (Bld) [Moles/Vol]1.0 mmol/L [facility] CenterCO2 (BldV) [Partial pressure]53.1 mm[Hg][facility] Regional HospitalHCO3 (Bld) [Moles/Vol]28.2 mmol/LHSentara Norfolk General Hospital Interpretation and review of laboratory resultsAbStony Brook South[facility] Oxygen (BldV) [Partial pressure]37 mm[Hg][facility] CenterOxygen therapy source and amount [CARE]RoomAirAshtabula County Medical CenterOxygen/Inspired gas setting [Volume Fraction] Cizcqtichy41 %[facility] CenterpH (BldV)7.334 [pH]7.320 - 7.420ScionHealthaO2% Calculated from oxygen partial pressure (BldV) [Mass fraction]66.0 %Low80.0 - PINF %[facility] Specimen site NarrativeN/AProOhio Valley Hospitalpecimen type Nom (Spec)VENOUS [facility] NetworkCBC auto differentialon 10-14-2023 Basophils (Bld) [#/Vol]0.1 10*3/[facility] HospitalBasophils/100 WBC (Bld) 0.9 %[facility] CenterEosinophils (Bld) [#/Vol]0.3 10*3/[facility] HospitalEosinophils/100 WBC (Bld)3.6 %[facility] CenterErythrocyte distribution width (RBC) [Ratio]14.5 %11.5 - 15.0 %[facility] Hematocrit (Bld) [Volume fraction]39.4 %39 - 49 %[facility] Hemoglobin (Bld) [Mass/Vol]13.4 g/dL13.0 - 17.0 g/dLAshtabula [facility] Center Interpretation and review of laboratory resultsAbnormMount Carmel Health System Lymphocytes (Bld) [#/Vol]2.0 10*3/[facility] HospitalLymphocytes/100 WBC (Bld)25.1 %[facility] CenterMCH (RBC) [Entitic mass]31.5 pg27 - 34 pg [facility] CenterMCHC (RBC) [Mass/Vol]34.0 g/dL32 - 36 g/dLAshtabula County Medical CenterMCV (RBC) [Entitic vol]93 fL80 - 100 [facility] Monocytes (Bld) [#/Vol]1.0 10*3/[facility] SystemMonocytes/100 WBC (Bld)12.5 %[facility] CenterNeutrophils (Bld) [#/Vol]4.6 10*3/[facility] HospitalNeutrophils/100 WBC (Bld)57.9 %[facility] CenterPlatelet mean volume (Bld) [Entitic vol]8.6 fL7 - 12 [facility] CenterPlatelets (Bld) [#/Vol]230 10*3/[facility] HospitalRBC (Bld) [#/Vol]4.26 10*6/[facility] HospitalWBC corrected for nucl RBC Auto (Bld) [#/Vol]8.0WVUMedicine Barnesville Hospital SystemWVUMedicine Barnesville Hospital SystemCT Head WO contraston 17-44-2500HV BRAIN WITHOUT CONTRAST COMPARISON: 11/15/2022 HISTORY: Transient [...] by Deo Harrison MD on 10/14/2023 11:44 [facility], Deo Nowak MD - 10/14/2023 CT [...] Deo Harrison MD on 10/14/2023 11:44 PM [facility] CenterRadiology Study observation (narrative)[facility] PO-MO SystemCT Head WO contrastOrdered By: Deo Harrison on 48-20-2257IaxJkbcinLouis Stokes Cleveland [facility] Center Work Phone: Comprehensive metabolic panelon 33-73-5347Fpixdid [Mass/Vol]3.2 g/dL3.2 - 5.3 g/dLProWashington County Hospital Health SystemALP [Catalytic activity/Vol]85 U/L39 - 130 U/LPrBanner Fort Collins [facility] Center Health SystemALT No additional P-5'-P [Catalytic activity/Vol]72 U/LHigh0 - 40 U/LPrBanner Fort Collins Medical Center Health SystemAnion gap [Moles/Vol]6 mmol/L5 - 15 mmol/LPrBanner Fort Collins Medical Center Health SystemAST [Catalytic activity/Vol]44 U/LHigh0 - 41 U/[facility] SystemBilirubin [Mass/Vol]0.5 mg/dL0.3 - 1.2 mg/dLProOhiohealth Doctors Hospital SystemCalcium [Mass/Vol]9.7 mg/dL8.5 - 10.5 mg/dLWVUMedicine Barnesville Hospital SystemChloride [Moles/Vol]105 mmol/L98 - 109 mmol/L [facility] SystemCO2 [Moles/Vol]26 mmol/L22 - 32 mmol/LPrKettering Health Main Campus SystemCreatinine [Mass/Vol]0.82 mg/dL0.70 - 1.20 mg/dLWVUMedicine Barnesville Hospital System Comment on above:METHOD TRACEABLE TO IDSC STANDARDeGFR (CKD-EPI)non-race dependent- Critical access hospitalComment on above: Reported eGFR is based on the CKD-EPI 2020 equation that does not use a race coefficient. Glucose [Mass/Vol]108 mg/eUWpzi97 - 99 mg/dLAshtabula County Medical Center Interpretation and review of laboratory resultsAbnormalProHighland District Hospital Potassium [Moles/Vol]3.7 mmol/L3.5 - 5.0 mmol/LProMedica Health SystemProtein [Mass/Vol]7.2 g/dL6.0 - 8.0 g/dLWVUMedicine Barnesville Hospital SystemSodium [Moles/Vol]137 mmol/L134 - 146 mmol/LProMedandalusia health Health SystemUrea nitrogen [Mass/Vol]23 mg/dL5 - 27 mg/dLAshtabula County Medical CenterECG 12 leadon 28-55-6400FMWCRCVHLKWCDZAloGzpmyj Health SystemEthanolon 67-57-2094Axqotva [Mass/Vol]g/dL0.00 - 0.08 g/dLAshtabula County Medical CenterComment on above: This report is intended for use in clinical monitoring or management of patients. Laboratory - Microbiology and Antimicrobial susceptibilityon 10-14-2023 FLUAV+FLUBV RNA EVERT+probe Ql (Unsp spec)NegativeNegative^NegativeAshtabula County Medical CenterMagnesiumon 18-15-2635Rooydhdoz [Mass/Vol]1.9 mg/dL1.8 - 2.6 mg/dL [facility] CenterNo Panel Informationon 80-28-4995MeeBuoyyvAdvanced Surgical HospitalPOCT Nursing Urine Macroscopic UAon 91-67-3447Dpvohjpey Ql (U)NegativeNegative^NegativeAshtabula County Medical CenterGlucose [Mass/Vol]Negative Negative^Negative mg/dLAshtabula County Medical CenterHemoglobin Ql (U)Negative Negative^NegativeAshtabula County Medical CenterInterpretation and review of laboratory resultsAbnormalAshtabula County Medical CenterKetones (U) [Mass/Vol]Negative Negative^Negative mg/dLAshtabula County Medical CenterLeukocyte esterase Test strip Ql (U)NegativeNegative^NegativeAshtabula County Medical CenterNitrite Ql (U)Negative Negative^NegativeAshtabula County Medical CenterpH (U)6.0 [pH]5.0 - 8.5PLouis Stokes Cleveland VA Medical CenterProtein Ql (U)100 mg/dLAbnormalNegative^NegativeAshtabula County Medical Center Specific gravity (U) [Rel density]1.0251.003 - 1.035[facility] Urobilinogen Qn (U)0.2NINFCox SouthARS/FLU A+B/RSV by NAAT/Molecular (M4RT Collection Tube)on 17-25-1595KQV RNA EVERT+probe Nom (Unsp spec)NegativeNegative^NegativeScionHealthARS-CoV-2 (COVID-19) RNA EVERT+probe Ql (Resp)Not detectedNot Detected^Not DetectedAshtabula County Medical CenterComment on above:NOTE The Xpert Xpress SARS-CoV-2/Flu/RSV Plus [...] operators who are performing tests using either [employer] or [employer] systems and is limited to laboratories that [...] specimen repeat. Fact Sheet for Healthcare Providers: https://www.fda.gov/media/957903/download Fact Sheet for Patients: https://www.fda.gov/media/077341/download [facility] Medical CenterThyroid profile includes TSH FT4on 86-35-1980Nany T4 [Mass/Vol]0.82 ng/dL0.61 - 1.60 ng/dLAtrium Health Carolinas Rehabilitation Charlotte Qn2.62 m[IU]/L [facility] NetworkTroponin Ion 25-28-9196Gvdopgfv I.cardiac [Mass/Vol]0.01 ng/mL0.00 - 0.04 ng/mLAshtabula County Medical CenterXR Chest Single viewon 57-37-5833IMXZI ONE VIEW COMPARISON: 11/10/2022 HISTORY: Rales over [...] likely sequelae of multifocal pneumonia or aspiration. Jkxcs-ajdyhzslny-md PA and lateral chest radiographs in 6-8 weeks after appropriate therapy recommended to ensure resolution of the airspace opacities. Finalized by Deo Harrison MD on 10/14/2023 11:22 PMSAdirondack Regional HospitalDeo MD - 10/14/2023 CHEST ONE VIEW COMPARISON: [...] likely sequelae of multifocal pneumonia or aspiration. Tsjfe-dbdmmrcrug-jp PA and lateral chest radiographs in 6-8 weeks after appropriate therapy recommended to ensure resolution of the airspace opacities. Finalized by Deo Harrison MD on 10/14/2023 11:22 PM [facility] NetworkRadiology Study observation (narrative)[facility] CenterALL PRO BNPon 12-76-7144Ygfeliazufe peptide B (Bld) [Mass/Vol]149 pg/mLNINF - 300 pg/mLNOMS HealthcareComment on above: An age-independent cutoff point of 300 pg/ml has a 98% negative predictive value excluding acute heart failure. Original Ordering Provider: BECKIE YUSUF [facility]S Medical CenterBrain Natri. Peptideon 83-61-3235Ujeqkehjmnn peptide B (Bld) [Mass/Vol]149 pg/mLNormal <300[facility] HospitalComment on above:Result Comment: An age-independent cutoff point of 300 pg/ml has a 98% negative predictive value excluding acute heart failure.Performed By: #### BNP #### [facility] [address] [place] [address] [place] [address] General Forecaster: Felix Prasad MDBrain Natriuretic Peptideon 75-82-0695Xmaafqcghkf peptide B (Bld) [Mass/Vol]149 pg/mLNINF - 300 pg/mLRIVERSIDE HEALTH SYSTEM Comment on above: An age-independent cutoff point of 300 pg/ml has a 98% negative predictive value excluding acute heart failure. [facility] NORTHCult,Urineon 18-72-8496Nefz,UrineSpecimen Description .VOIDED URINE Culture NO SIGNIFICANT GROWTH Report Status FINAL 09/18/2023NormPomerene HospitalComment on above: Performed By: #### URC #### [facility] [address] [place], [place] [id number] General Forecaster: Trever Reed MD [facility] [address] [place] [address] [place] [address] General Forecaster: GINNY Narvaez URINALYSISon 16-20-9843HHLS BILIRUBIN, SEMIQT,URNegativeNEGNOMineral Area Regional Medical CenterPT BLOOD, URINENegativeNEGNONorthwest Medical CenterPT CLARITY, URINEClearCLEARNOMineral Area Regional Medical CenterPT COLORYellowYELSelect Specialty HospitalPT GLUCOSE,SEMI-QNT,URNegativeNEG mg/dLNOMineral Area Regional Medical CenterPT KETONES, URINE NegativeNEG mg/dLSaint John's Regional Health CenterPT LEUKOCYTE ESTERASENegativeNEGSaint John's Regional Health CenterPT NITRITE,URNegativeNEGNOMineral Area Regional Medical CenterPT PH,UR6.55.0 - 9.0NOSC HealthcarePT PROTEIN, SEMI-QNT,URNegativeNEG mg/dLNOSC HealthcarePT SPEC. GRAVITY,UR1.0151.010 - 1.020NOSC HealthcarePT UROBILINOGEN,URNormal0.0 - 1.0 EU/dLNOSC HealthcareOriginal Ordering Provider: LA Peña NP [facility] HealthcareUrinalysis, Routineon 94-92-1240Ebcgmmldc, SemiQt,UrNegativeNormalNEG [facility] HospitalComment on above:Performed By: #### UA #### [facility] [address] [place] [address] Dr. Wallace, [facility] General Forecaster: Tania Narvaez, UrineNegativermalCommunity Memorial Hospital Comment on above:Performed By: #### UA #### [facility] [address] [place] [address] Dr. Wallace, [facility] General Forecaster: Sorin Narvaezrity (ClearNormalCLEAROhiohealth Dublin Methodist Hospital Comment on above:Performed By: #### UA #### [facility] [address] [place] [address] Dr. Wallace, [facility] General Forecaster: JOSEY Narvaezolor (YellowNoalYHolmes County Joel Pomerene [facility] Hospital Comment on above:Performed By: #### UA #### [facility] [address] [place] [address] Dr. Wallace, [place] [address] General Forecaster: Felix Prasad MDGlucose Ql (U)NegativeNormalNEGOhiohealth Dublin Methodist HospitalComment on above:Performed By: #### UA #### [facility] [address] Wallace, [facility] General Forecaster: Felix Prasad MDKetones Ql (U)NegativeNormalNEGOhiohealth Dublin Methodist HospitalComment on above:Performed By: #### UA #### [facility] [address] [place] [address] Dr. Wallace, [facility] General Forecaster: Felix Prasad MDLeukocyte esterase Test strip Ql (U)NegativeNormal NEGOhiohealth Dublin Methodist HospitalComment on above:Performed By: #### UA #### [address] Wallace, [place] [id number] General Forecaster: Felix Prasad MDNitrite,UrNegativeNormalNEGOhiohealth Dublin Methodist Hospital Comment on above:Performed By: #### UA #### [facility] [address] [place] [address] [place] [address] General Forecaster: UDAY Narvaez,Ur6.0Hxkmwp4.0-9.0[facility] HospitalComment on above:Performed By: #### UA #### [address] [place] [address] General Forecaster: UDAY Narvaezrotein Ql (U)NegativeNormalNEGOhiohealth Dublin Methodist HospitalComment on above:Performed By: #### UA #### [address] [place] [address] General Forecaster: EVELIN Narvaezpec. [place],Ur1.748Rdfejn9.010-1.020[facility] HospitalComment on above:Performed By: #### UA #### [address] [place] [address] General Forecaster: Shawanda Narvaezbilinogen,UrNormalNormal0.0-1.0[facility] HospitalComment on above:Performed By: #### UA #### [address] [place] [address] General Forecaster: JUAN MANUEL Narvaez with Diffon 20-84-3541Txw. Basophil0.08 k/uL Normal0.00-0.20[facility] HospitalComment on above:Performed By: #### CDP #### [facility] [address] [place] [address] Dr. [place] [id number] General Forecaster: Krupa Narvaez.Imm.Granulocyte0.12 k/uLNormal0.00-0.30[facility] HospitalComment on above:Performed By: #### CDP #### [address] [place] [id number] General Forecaster: Krupa Narvaez.Neutrophil (Seg)6.52 k/uLNormal1.50-8.10[facility] HospitalComment on above:Performed By: #### CDP #### [address] [place] [address] General Forecaster: Felix Prasad MDBasophils/100 WBC (Bld)1 %Normal0-2MSalem Regional Medical Center HospitalComment on above:Performed By: #### CDP #### [address] [place] [address] General Forecaster: Felix Prasad MDEosinophils (Bld) [#/Vol]0.71 10*3/uLHigh0.00-0.44 [facility] HospitalComment on above:Performed By: #### CDP #### [address] [place] [address] General Forecaster: Felix Prasad MDEosinophils/100 WBC (Bld)7 %High1-4[facility] HospitalComment on above:Performed By: #### CDP #### [address] Wallace, [facility] General Forecaster: Felix Prasad MDErythrocyte distribution width (RBC) [Ratio]14.3 % Rusgcy22.8-14.4[facility] HospitalComment on above:Performed By: #### CDP #### [address] [place] [id number] General Forecaster: Felix Prasad MDHematocrit (Bld) [Volume fraction]40.5 %Low 40.7-50.3[facility] HospitalComment on above:Performed By: #### CDP #### [address] [place], [place] [address] General Forecaster: Felix Prasad MDHemoglobin (Bld) [Mass/Vol]14.1 g/dLNormal 13.0-17.0[facility] HospitalComment on above:Performed By: #### CDP #### [address] [place], [place] [id number] General Forecaster: Felix Prasad MDImmature granulocytes/100 WBC (Bld)1 %Axlv5VrgwyOhiohealth Pickerington Methodist Hospital HospitalComment on above:Performed By: #### CDP #### [address] [place], [place] [id number] General Forecaster: Felix Prasad MDLymphocytes (Bld) [#/Vol]2.61 10*3/uLNormal 1.10-3.70[facility] HospitalComment on above:Performed By: #### CDP #### [address] [place], [place] [id number] General Forecaster: Jane Narvaezmphocytes/100 WBC (Bld)24 %Diawrj41-60Ljjkw Tiffin HospitalComment on above:Performed By: #### CDP #### [address] [place], [place] [id number] General Forecaster: GHANSHYAM NarvaezCH (RBC) [Entitic mass]31.9 spCjkwuz71.2-33.5 [facility] HospitalComment on above:Performed By: #### CDP #### [address] [place] [address] General Forecaster: GHANSHYAM NarvaezCHC (RBC) [Mass/Vol]34.8 g/bDSdlhpq33.4-34.8[facility]boro HospitalComment on above:Performed By: #### CDP #### [address] [place] [address] General Forecaster: GHANSHYAM NarvaezCV (RBC) [Entitic vol]91.6 fCYdjgym93.6-102.9 [facility] HospitalComment on above:Performed By: #### CDP #### [address] [place] [address] General Forecaster: GHANSHYAM Narvaezonocytes (Bld) [#/Vol]0.94 10*3/uLNormal0.10-1.20 [facility] HospitalComduane l. waters hospital on above:Performed By: #### CDP #### [address] [place] [address] General Forecaster: GHANSHYAM Narvaezonocytes/100 WBC (Bld)9 %Normal3-12[facility] HospitalComment on above:Performed By: #### CDP #### [address] [place] [address] General Forecaster: Felix Prasad MDNeutrophil (Seg)58 %Gvfuuf23-42TacpqJohnson [facility] on above:Performed By: #### CDP #### [address] [place] [address] General Forecaster: Felix Prasad MDNRBC Automated0.0 per 100 WBCNormal0.0[facility] HospitalComduane l. waters hospital on above:Performed By: #### CDP #### [address] [place] [address] General Forecaster: UDAY Narvaezlatelet mean volume (Bld) [Entitic vol]10.4 fL Normal8.1-13.5[facility] HospitalComment on above:Performed By: #### CDP #### [address] [place], [place] [id number] General Forecaster: Shannon Narvaez ([facility]) [#/Vol]332 10*3/eJVornjk410-704 [facility] HospitalComment on above:Performed By: #### CDP #### [address] [place] [address] General Forecaster: HUMAIRA NarvaezBC ([facility]) [#/Vol]4.42 10*6/uLNormal4.21-5.77[facility] Hospitalcy Statesboro HospitalComment on above:Performed By: #### CDP #### [address] [place], [place] [id number] General Forecaster: ANDRWE Narvaez ([facility]) [#/Vol]11.0 10*3/uLNormal3.5-11.3[facility] HospitalComment on above:Performed By: #### CDP #### [address] [place] [address] General Forecaster: Felix Prasad MDCT ABDOMEN PELVIS W IV CONTRASTon [id number] ABDOMEN PELVIS W IV CONTRASTEXAMINATION: CT OF [...] by: Antoine Still MD 09/06/23 Final resultNormalMercy Windham Hospital with Auto Differentialon 09-06-2023 Basophils (Bld) [#/Vol]0.06 10*3/uLBON SECOURS MERCY HEALTHBasophils/100 WBC (Bld)0 %0 - 2 %[facility] HEALTHEosinophils (Bld) [#/Vol]0.77 10*3/uLHigh [facility] HEALTHEosinophils/100 WBC (Bld)5 %High1 - 4 %[facility] HEALTHErythrocyte distribution width (RBC) [Ratio]14.2 %11.8 - 14.4 %[facility]CY HEALTHHematocrit (Bld) [Volume fraction]38.4 %Low40.7 - 50.3 %[facility]AMPUSY HEALTHHemoglobin (Bld) [Mass/Vol]13.4 g/dL13.0 - 17.0 g/dLBON SECOURS [facility]AMPUSY HEALTHImmature granulocytes (Bld) [#/Vol]0.05 10*3/uLBON SECOURS [facility] WEST CAMPUSY HEALTHImmature granulocytes/100 WBC (Bld)0 %0B[facility]ALTH Interpretation and review of laboratory resultsAbnormalB[facility]ALTH Lymphocytes/100 WBC (Bld)15 %Low24 - 43 %[facility] MUNICIPAL HOSPITALLymphocytes/100 WBC (Bld)2.37 %BON SECBETHESDA NORTH HOSPITALH (RBC) [Entitic mass]31.2 pg25.2 - 33.5 pgBON SECOURS CRYSTAL CLINIC ORTHOPEDIC CENTERHC (RBC) [Mass/Vol]34.9 g/pJFzie04.4 - 34.8 g/dLBON SECJOINT TOWNSHIP DISTRICT MEMORIAL HOSPITALMCV (RBC) [Entitic vol]89.5 fL82.6 - 102.9 fLBON SECOURS LANCASTER MUNICIPAL HOSPITALMonocytes/100 WBC (Bld)5 %3 - 12 %[facility] SEC[facility] HEALTH Monocytes/100 WBC (Bld)0.79 %[facility] SEC[facility] MUNICIPAL HOSPITALNeutrophils/100 WBC (Bld)75 %High36 - 65 %[facility]AL HOSPITALNucleated RBC/100 WBC (Bld) [Ratio]0.0 % 0.0 per 100 WBCBON SECOURS [facility] WEST CAMPUSY HEALTHPlatelet mean volume (Bld) [Entitic vol] 11.8 fL8.1 - 13.5 fLBON SECOURS TR[facility]ITY HEALTH [facility] WEST CAMPUSY HEALTHPlatelets (Bld) [#/Vol]279 10*3/uL [facility]AMPUSY HEALTHRBC (Bld) [#/Vol]4.29 10*6/uL4.21 - 5.77 m/uLBON SECOURS LANCASTER MUNICIPAL HOSPITALSegmented neutrophils/100 WBC (Bld)12.17 %HighBON SECOURS LANCASTER MUNICIPAL HOSPITALWBC other (Bld) [#/Vol]16.2HighBON SECOURS [facility] WEST CAMPUSY HEALTHBON SECOURS [facility] WEST CAMPUSY HEALTHCBC with Diffon [id number]. Basophil0.06 k/uLNormal0.00-0.20[facility] HospitalComment on above:Performed By: #### TAVIA ALY, CDP #### [address] [place] [address] General Forecaster: MDAbs. SolangeImm.Granulocyte0.05 k/uLNormal0.00-0.30MerWVUMedicine [facility] Hospital HospitalComment on above:Performed By: #### TAVIA ALY, CDP #### [address] [place] [address] General Forecaster: Krupa Narvaez.Neutrophil (Seg)12.17 k/uLHigh1.50-8.10[facility] HospitalComment on above:Performed By: #### TAVIA ALY, CDP #### [address] [place], [place] [address] General Forecaster: Felix Prasad MDBasophils/100 WBC (Bld)0 %Normal0-2MSalem Regional Medical Center HospitalComment on above:Performed By: #### TAVIA ALY, CDP #### [address] [place], [place] [address] General Forecaster: Felix Prasad MDEosinophils (Bld) [#/Vol]0.77 10*3/uLHigh0.00-0.44 [facility] HospitalComment on above:Performed By: #### TAVIA ALY, CDP #### [address] [place], [facility] General Forecaster: ZURI Narvaezosinophils/100 WBC (Bld)5 %High1-4[facility] HospitalComment on above:Performed By: #### TAVIA ALY, CDP #### [address] [place] [address] General Forecaster: Felix Prasad MDErythrocyte distribution width (RBC) [Ratio]14.2 % Migovl44.8-14.4[facility] HospitalComment on above:Performed By: #### TAVIA ALY, CDP #### [address] [place] [address] General Forecaster: Felix Prasad MDHematocrit (Bld) [Volume fraction]38.4 %Low 40.7-50.3[facility] Statesboro HospitalComment on above:Performed By: #### JERMAIN CP, CDP #### [address] [place] [address] General Forecaster: Felix Prasad MDHemoglobin (Bld) [Mass/Vol]13.4 g/dLNormal 13.0-17.0[facility] HospitalComment on above:Performed By: #### TAVIA ALY, CDP #### [address] [place], [place] [address] General Forecaster: Felix Prasad MDImmature granulocytes/100 WBC (Bld)0 %Wjeosy3Khdum Tiffin HospitalComment on above:Performed By: #### TAVIA ALY, CDP #### [address] [place], [place] [address] General Forecaster: Felix Prasad MDLymphocytes (Bld) [#/Vol]2.37 10*3/uLNormal 1.10-3.70[facility] HospitalComment on above:Performed By: #### JERMAIN CP, CDP #### [address] [place], [place] [address] General Forecaster: aJne Narvaezmphocytes/100 WBC (Bld)15 %Rnd37-91JxvmyOhiohealth Dublin Methodist HospitalComment on above:Performed By: #### JERMAIN CP, CDP #### [address] [place], [facility] General Forecaster: GHANSHYAM NarvaezCH (RBC) [Entitic mass]31.2 qhXvrvfd10.2-33.5 [facility] HospitalComment on above:Performed By: #### TAVIA ALY, CDP #### [address] [place] [address] General Forecaster: GHANSHYAM NarvaezCHC (RBC) [Mass/Vol]34.9 g/hZPdob97.4-34.8[facility] HospitalComment on above:Performed By: #### TAVIA ALY, CDP #### [address] [place] [address] General Forecaster: GHANSHYAM NarvaezCV (RBC) [Entitic vol]89.5 iSKmwcui63.6-102.9 [facility] HospitalComment on above:Performed By: #### TAVIA ALY, CDP #### [address] [place] [address] General Forecaster: GHANSHYAM Narvaezonocytes (Bld) [#/Vol]0.79 10*3/uLNormal0.10-1.20 [facility] HospitalComment on above:Performed By: #### TAVIA ALY, CDP #### [address] [place] [address] General Forecaster: GHANSHYAM Narvaezonocytes/100 WBC (Bld)5 %Normal3-12[facility] HospitalComment on above:Performed By: #### TAVIA ALY, CDP #### [address] [place] [address] General Forecaster: Felix Prasad MDNeutrophil (Seg)75 %Whnr82-09UgwujOhiohealth [facility] Methodist Hospital Comment on above:Performed By: #### TAVIA ALY, CDP #### [address] [place] [address] General Forecaster: Felix Prasad MDNRBC Automated0.0 per 100 WBCNormal0.0[facility] HospitalComment on above:Performed By: #### TAVIA ALY, CDP #### [address] [place] [address] General Forecaster: Nadia Narvaez mean volume (Bld) [Entitic vol]11.8 fL Normal8.1-13.5[facility] HospitalComment on above:Performed By: #### TAVIA ALY, CDP #### [address] [place] [address] General Forecaster: Shannon Narvaez (Bld) [#/Vol]279 10*3/eLLxwhwk450-150 [facility] HospitalComment on above:Performed By: #### TAVIA ALY, CDP #### [address] [place], [facility] General Forecaster: HUMAIRA NarvaezBC (Bld) [#/Vol]4.29 10*6/uLNormal4.21-5.77[facility] HospitalComment on above:Performed By: #### TAVIA ALY, CDP #### [address] [place] [address] General Forecaster: ANDREW Narvaez (Bld) [#/Vol]16.2 10*3/uLHigh3.5-11.3Mtogus va medical centery Statesboro HospitalComment on above:Performed By: #### TAVIA ALY, CDP #### [address] [place] [address] General Forecaster: Felix Prasad MDCT Abdomen and Pelvis W [...] outlet obstruction. Endoscopic correlation may be needed. [facility] CONSOLIDATEDEXAMINATION: CT OF THE ABDOMEN AND PELVIS [...] noted. No soft tissue swelling is seen. [facility] Antoine Cutler MD - 09/06/2023 EXAMINATION: CT [...] be needed. [facility] SYSTEMRadiology Study observation (narrative)[facility] Abdomen and Pelvis W contrast IVOrdered By: Antoine Still on [id number] [facility] Work Phone: Comp Metabolic Profon [id number] [Mass/Vol]3.1 g/dLLow3.5-5.2[facility] HospitalComment on above:Performed By: #### TAVIA ALY, CDP #### [address] [place], [place] [id number] General Forecaster: Felix Prasad MDAlbumin/Glob Ratio1.4Svarbo4.0-2.5[facility] HospitalComment on above:Performed By: #### TAVIA ALY, CDP #### [address] [place], [place] 8196983 General Forecaster: Fredo Narvaez Beyg608 U/QLyyv31-122MsdleOhiohealth Dublin Methodist HospitalComment on above:Performed By: #### TAVIA ALY, CDP #### [address] [place] [address] General Forecaster: Felix Prasad MDALT [Catalytic activity/Vol]23 U/LNormal5-41[facility] HospitalComment on above:Performed By: #### TAVIA ALY, CDP #### [address] [place] [address] General Forecaster: Felix Prasad MDAnival gap [Moles/Vol]9 mmol/LNormal9-17[facility] HospitalComment on above:Performed By: #### LIP CP, CDP #### [address] [place], [place] [id number] General Forecaster: Felix Prasad MDAST [Catalytic activity/Vol]20 U/LNormal<40[facility] HospitalComment on above:Performed By: #### TAVIA ALY, CDP #### [facility] [address] [place] [address] Dr[address] [place], [place] [id number] General Forecaster: Felix Prasad MDBilirubin [Mass/Vol]0.2 mg/dLLow0.3-1.2MercProMedica Defiance Regional Hospital HospitalComment on above:Performed By: #### TAVIA ALY, CDP #### [facility] [address] [place] [address] [place] [address] General Forecaster: Felix Prasad MDBUN/CRE Vwygk16Soga5-95ZoblxOhiohealth Dublin Methodist Hospital Comment on above:Performed By: #### TAVIA ALY, CDP #### [address] [place], [place] [id number] General Forecaster: JOSEY Narvaezalcium [Mass/Vol]9.7 mg/dLNormal8.6-10.4MerWVUMedicine [facility] Hospital HospitalComment on above:Performed By: #### TAVIA ALY, CDP #### [address] [place], [place] [id number] General Forecaster: JOSEY Narvaezhloride [Moles/Vol]101 mmol/VTjjzda76-939Kkyyp Tiffin HospitalComment on above:Performed By: #### TAVIA ALY, CDP #### [facility] [address] [place] [address] [place] [address] General Forecaster: Felix Prasad MDCO2 [Moles/Vol]26 mmol/MPbvwha44-23Osycj Tiffin HospitalComment on above:Performed By: #### TAVIA ALY, CDP #### [address] [place], [place] 0592583 General Forecaster: JOSEY Narvaezreatinine [Mass/Vol]0.8 mg/dLNormal0.7-1.2MDetwiler Memorial HospitalComment on above:Performed By: #### TAVIA ALY, CDP #### [address] [place] [address] General Forecaster: Felix Prasad MDGFR/1.73 sq M.predicted among non-blacks MDRD (S/P/Bld) [Vol rate/Area]mL/min/{1.73_m2}Normal>60[facility] HospitalComment on above:Result Comment: These results are [...] secretion.Performed By: #### TAVIA ALY, CDP #### [address] [place], [facility] General Forecaster: Felix Prasad MDGlucose [Mass/Vol]257 mg/hLMrcx23-81Ikgza [facility] HospitalComment on above:Performed By: #### TAVIA ALY, CDP #### [address] [place] [id number] General Forecaster: UDAY Narvaezotassium [Moles/Vol]4.3 mmol/LNormal3.7-5.3[facility] HospitalComment on above:Performed By: #### TAVIA ALY, CDP #### [address] [place] [address] General Forecaster: Felix Prasad MDProtein [Mass/Vol]6.2 g/dLLow6.4-8.3Mtogus va medical centery Rockville General HospitalComment on above:Performed By: #### TAVIA ALY, CDP #### [address] [place] [address] General Forecaster: Felix Prasad MDSodium [Moles/Vol]136 mmol/SNsxfbj860-778KlntdOhiohealth Dublin Methodist HospitalComment on above:Performed By: #### TAVIA ALY, CDP #### [facility] [address] [place] [address] General Forecaster: Felix Prasad MDUrea nitrogen [Mass/Vol]22 mg/dLNormal8-23[facility] HospitalComment on above:Performed By: #### TAVIA ALY, CDP #### [facility] [address] [place] [address] General Forecaster: Felix Prsaad [facility] STILWELLomprehensive Metabolic Panelon [id number] [Mass/Vol]3.1 g/dLLow3.5 - 5.2 g/dLBON [facility] NORTHAlbumin/Globulin [Mass ratio]1.0 {ratio}1.0 - 2.5B[facility] HEALTHALP [Catalytic activity/Vol]242 U/LHigh40 - 129 U/LBON [facility] HEALTHALT [Catalytic activity/Vol]23 U/L5 - 41 U/LBON [facility] NORTHAnion gap [Moles/Vol]9 mmol/L9 - 17 mmol/LBON [facility] HEALTHAST [Catalytic activity/Vol]20 U/L NINF - 40 U/LBON [facility] NORTHBilirubin [Mass/Vol]0.2 mg/dLLow0.3 - 1.2 mg/dLBON [facility] HEALTHCalcium [Mass/Vol]9.7 mg/dL8.6 - 10.4 mg/dLBON [facility] NORTHChloride [Moles/Vol]101 mmol/L98 - 107 mmol/LBON [facility] NORTHCO2 [Moles/Vol]26 mmol/L20 - 31 mmol/LBON [facility] Creatinine [Mass/Vol]0.8 mg/dL0.7 - 1.2 mg/dLBON [facility] HEALTHGFR/1.73 sq M.predicted MDRD (S/P/Bld) [Vol rate/Area]- PINFBON [facility] NORTHComment on above: These results are not intended [...] that affects renal tubular secretion. Glucose [Mass/Vol]257 mg/jHIcab44 - 99 mg/dLBON [facility] Interpretation and review of laboratory resultsAbnormalBON [facility] Potassium [Moles/Vol]4.3 mmol/L3.7 - 5.3 mmol/LBON [facility] NORTHProtein [Mass/Vol]6.2 g/dLLow6.4 - 8.3 g/dLBON [facility] NORTHSodium [Moles/Vol]136 mmol/L135 - 144 mmol/LBON [facility] NORTHUrea nitrogen [Mass/Vol]22 mg/dL8 - 23 mg/dLBON [facility]OS[facility] NORTHUrea nitrogen/Creatinine [Mass ratio]28 mg/mg High9 - 20BON [facility] NORTHLactic Acidon [id number] [Moles/Vol]2.0 mmol/LNormal0.5-2.2[facility] HospitalComment on above:Performed By: #### LACTIC #### [facility] [address] [place] [address] [place] [address] General Forecaster: Felix Prasad MDLactate (BldV) [Moles/Vol]2.0 mmol/L0.5 - 2.2 mmol/LBON H[facility] REG[facility]AL MEDICAL CENTERLipaseon [id number] [Catalytic activity/Vol]54 U/YBwtknu15-81CsghvSaint Mary's HospitalComment on above: Performed By: #### CDP #### [facility] [address] [place] [address] [place] [address] General Forecaster: Felix Prasad MDLipase [Catalytic activity/Vol]54 U/L13 - 60 U/L [facility]ALTH SYSTEMMicroscopic Urinalysison [id number] sediment LM Ql (Urine sed)1+AbnormalNoneBON [facility] NORTHBacteria LM Ql (Urine sed) TRACEAbnormalNoneBON [facility] NORTHCrystals LM Nom (Urine sed)2 TO 5 CALCIUM OXALATEAbnormalNone /HPFBON [facility] NORTHEpithelial cells LM.HPF (Urine sed) [#/Area]NoneRIVERSIDE HEALTH SYSTEMInterpretation and review of laboratory resultsAbnormalRIVERSIDE HEALTH SYSTEMMucus Ql (Urine sed)TRACE AbnormalNoneBON [facility]OS[facility] NORTHRBC LM.HPF (Urine sed) [#/Area]0 TO 2BON [facility]OS[facility] NORTHWBC LM.HPF (Urine sed) [#/Area]0 TO 2BON [facility] MEDICAL CENTERNo Panel Informationon [id number] [facility] NORTHUA w/Reflex Cultureon [id number], SemiQt,UrNegativeNormalNEG [facility] HospitalComment on above:Performed By: #### JACQUIE PADRON #### [facility] [address] [place] [address] [place] [address] General Forecaster: Tania Narvaez, UrineNegativeHighland District Hospital Comment on above:Performed By: #### JACQUIE PADRON #### [facility] [address] [place] [address] Dr[address] [place], [place] [id number] General Forecaster: JOSEY Narvaezlarity (U)ClearNormalCLEAROhiohealth Dublin Methodist Hospital Comment on above:Performed By: #### UAPREMA CarlsonO #### [facility] [address] [place] [address] General Forecaster: JOSEY Narvaezolor (U)YellowNormalYHolmes County Joel Pomerene [facility] Comment on above:Performed By: #### JACQUIE PADRON #### [facility] [address] [place] [address] General Forecaster: Felix Prasad MDGlucose Ql (U)1+ mg/dLAbnormalCommunity Memorial HospitalComment on above:Performed By: #### UAX, UMICAO #### [facility] [address] [place] [address] [place] [address] General Forecaster: Felix Prasad MDKetones Ql (U)TRACEAbnormalNEGMercy Statesboro HospitalComment on above:Performed By: #### UAX, UMICAO #### [facility] [address] [place] [address] [place] [address] General Forecaster: Felix Prasad MDLeukocyte esterase Test strip Ql (U)NegativeNormal NEGMercy Rockville General HospitalComment on above:Performed By: #### UAX, UMICAO #### [address] [place] [address] General Forecaster: Felix Prasad MDNitrite,UrNegativeNormalNEGOhiohealth [facility] Hospital Comment on above:Performed By: #### UAX, UMICAO #### [facility] [address] [place] [address] [place] [address] General Forecaster: CLAUDE Narvaez,Ur7.2Joekoo3.0-9.0[facility] Hospitalcy [facility] HospitalComment on above:Performed By: #### UAX, UMICAO #### [address] [place] [address] General Forecaster: Augustin Narvaez Ql (U)TRACEAbnormalNEGMercy Statesboro HospitalComment on above:Performed By: #### UAX, UMICAO #### [facility] [address] [place] [address] Dr[address] [place], [place] [id number] General Forecaster: EVELIN Narvaezpec. [place],Ur1.569Sybucl8.010-1.020[facility] HospitalComment on above:Performed By: #### UAX, UMICAO #### [facility] [address] [place] [address] [place] [address] General Forecaster: Felix Prasad MDUrobilinogen,UrELEVATEDNormal0.0-1.0[facility] HospitalComment on above:Performed By: #### JACQUIE PADRON #### [facility] [address] [place] [address] General Forecaster: Felix Prasad MDUrinalysis with Reflex to Cultureon 09-06-2023 Bilirubin Ql (U)NegativeNEGATIVEBON [facility] HEALTHClarity (U)ClearClearBON SECNEW [facility]ANS [facility] HEALTHColor (U)YellowYellowBON [facility] HEALTHGlucose Test strip (U) [Mass/Vol]1+AbnormalNEGATIVE mg/dLBON [facility] NORTHHemoglobin Auto test strip Ql (U)NegativeNEGATIVEBON [facility] HEALTHInterpretation and review of laboratory resultsAbnormalBON [facility] HEALTHKetones (U) [Mass/Vol]TRACEAbnormalNEGATIVE mg/dLBON [facility] NORTHLeukocyte esterase Test strip Ql (U)NegativeNEGATIVEBON [facility] HEALTHNitrite Ql (U)Negative NEGATIVEBON COL[facility] HEALTHpH (U)7.0 [pH]5.0 - 9.0B[facility] Protein (U) [Mass/Vol]TRACEAbnormalNEGATIVE mg/dLBON [facility] HEALTH Specific gravity (U) [Rel density]1.0201.010 - 1.020BON [facility] Urobilinogen Qn (U)ELEVATED0.0 - 1.0 EU/dLBON SECASPIRUS WAUSAU HOSPITALUrinalysis,Microon [id number] sediment LM Ql (Urine sed)1+ AbnormalOhio State Harding HospitalComment on above:Performed By: #### JACQUIE PADRON #### [facility] [address] [place] [address] General Forecaster: Felix Prasad MDBacteriaTRACEAbnoChillicothe Hospital Comment on above:Performed By: #### JACQUIE PADRON #### [facility] [address] [place] [address] Dr[address] [place], [place] [id number] General Forecaster: JOSEY Narvaezrystcalvin LM Nom (Urine sed)2 TO 5AbnormalNONAvita Health System Ontario HospitalComment on above:Result Comment: CALCIUM OXALATEPerformed By: #### UAX, UMICAO #### [facility] [address] [place] [address] Dr[place], [place] [id number] General Forecaster: Felix Prasad MDEpithelial cells LM Ql (Urine sed)NoneNormal0-5 [facility] HospitalComment on above:Performed By: #### UAX, UMICAO #### [address] [place], [place] [address]83 General Forecaster: GHANSHYAM Narvaezuc StrandsTRACEAbnoChillicothe HospitalComment on above:Performed By: #### AYLAX, PREMAO #### [address] [place], [place] [id number] General Forecaster: Sujit Narvaez RBC's0 TO 3Izggho5-0DvfpyDetwiler Memorial Hospital Comment on above:Performed By: #### UAX, UMICAO #### [address] [place], [place] [id number] General Forecaster: Sujit Narvaez WBC's0 TO 0Lxfogn6-4SsnjaOhiohealth Dublin Methodist Hospital Comment on above:Performed By: #### UAX, UMICAO #### [facility] [address] [place] [address] Dr[address] [place], [place] [phone] General Forecaster: Felix Prasad MDActivated partial thromboplastin time (aPTT) in platelet poor plasma by coagulation aOrdered By: Julius Saldaña on [id number] Coag (PPP) [Time]30.0 s25.1-36.5FSouthview Medical CenterAlanine aminotransferase [Enzymatic activity/volume] in Serum or PlasmaOrdered By: Julius Saldaña on [id number] [Catalytic activity/Vol]22 U/L7-52St. Elizabeth HospitalAlbumin [Mass/volume] in Serum or Plasma by Bromocresol green (BCG) dye binding methoOrdered By: Julius Saldaña on 25-58-0850Iozniuw BCG dye [Mass/Vol]3.5 g/dL3.5-5.7FSouthview Medical CenterAlkaline phosphatase [Enzymatic activity/volume] in Serum or PlasmaOrdered By: Julius Saldaña on 29-76-1257PDN [Catalytic activity/Vol]234 U/R38-973LjqvorisfSt. Elizabeth HospitalAspartate aminotransferase [Enzymatic activity/volume] in Serum or PlasmaOrdered By: Julius Saldaña on 90-93-4443ZGJ [Catalytic activity/Vol]20 U/L 13-39[facility]. [facility] HospitalAutomated erythrocytes count in urine sediment (number/area)Ordered By: Julius Saldaña on 21-61-4037FDD Auto (Urine sed) [#/Area]0-1 [HPF]0-4FSouthview Medical CenterAutomated leukocytes count in urine sediment (number/area)Ordered By: Julius Saldaña on 79-38-8736TEN Auto (Urine sed) [#/Area]0-1 [HPF]0-4FSouthview Medical CenterBasophils Auto (Bld) [#/Vol]Ordered By: Julius Saldaña on 21-10-7277Ykfmxsbdh (Bld) [#/Vol] 0.1 10*3/uL0.0-0.2FSouthview Medical CenterBasophils/100 WBC Auto (Bld) Ordered By: Julius Saldaña on 71-69-8555Hpoaxjscu/100 WBC (Bld)0.6 %.St. Elizabeth HospitalBilirubin Test strip Ql (U)Ordered By: Julius Saldaña on 71-80-2659Mjnypesok Ql (U)NegativeNegativeSt. Elizabeth Hospital Bilirubin.total [Mass/volume] in Serum or PlasmaOrdered By: Julius Saldaña on 71-74-0102Tfwpxzyvm [Mass/Vol]0.5 mg/dL0.3-1.0[facility] Calcium [Mass/volume] in Serum or PlasmaOrdered By: Julius Saldaña on 03-02-2023 Calcium [Mass/Vol]9.7 mg/dL8.6-10.3FSouthview Medical CenterCarbon dioxide, total [Moles/volume] in Serum or PlasmaOrdered By: Julius Saldaña on 03-40-7979IQ0 [Moles/Vol]27.1 mmol/L21.0-31.0[facility] Chloride [Moles/volume] in Serum or PlasmaOrdered By: Julius Saldaña on 74-22-0989Movnrzpn [Moles/Vol]103 mmol/B66-490QaqwumjlxSt. [facility] Hospital Color Auto (U)Ordered By: Julius Saldaña on 45-83-0723Taucl (U)YellowYellow St[facility] HospitalCreatine kinase [Enzymatic activity/volume] in Serum or PlasmaOrdered By: Julius Saldaña on 78-49-8656TU [Catalytic activity/Vol]84 U/W70-351XnnkepevpSt. Elizabeth HospitalCreatinine [Mass/volume] in Serum or PlasmaOrdered By: Julius Saldaña on 03-02-2023 Creatinine [Mass/Vol]0.77 mg/dL0.70-1.30[facility] Eosinophils Auto (Bld) [#/Vol]Ordered By: Julius Saldaña on 25-04-8439Kezoviagiaj (Bld) [#/Vol]0.2 10*3/uL0.0-0.45[facility] Eosinophils/100 WBC Auto (Bld)Ordered By: Julius Saldaña on 03-02-2023 Eosinophils/100 WBC (Bld)2.3 %.[facility]. [facility] HospitalErythrocyte distribution width Auto (RBC) [Ratio]Ordered By: Julius Saldaña on 03-02-2023 Erythrocyte distribution width (RBC) [Ratio]14.0 %12.0-14.8[facility] HospitalEthanol [Mass/volume] in Serum or PlasmaOrdered By: Julius Saldaña on 33-09-7591Bpabuep [Mass/Vol]mg/dLSt. Elizabeth HospitalEthanol [Mass/Vol]TNPSt. Elizabeth HospitalComment on above:Test not performedGlobulin Calc (S) [Mass/Vol]Ordered By: Julius Saldaña on 03-02-2023 Globulin (S) [Mass/Vol]3.2 g/dLSt. Elizabeth HospitalGlucose Glucometer (BldC) [Mass/Vol]Ordered By: Julius Saldaña on 22-39-7344Lzadhho [Mass/Vol]341 mg/dLSt. Elizabeth HospitalComment on above:Random Glucose Reference Range is dependent on time and content of last meal. Glucose of more than 200 mg/dL in a nonstressed, ambulatory subject supports the diagnosis of Diabetes Mellitus.Glucose [Mass/volume] in Serum or PlasmaOrdered By: Julius Saldaña on 04-40-4401Lhpuedo [Mass/Vol]399 mg/uC53-658GqakwzzigSt. Elizabeth HospitalComment on above:ADA recommended reference rangeRandom Glucose Reference Range is dependent on time and content of last meal. Glucose of more than 200 mg/dL in a nonstressed, ambulatory subject supports the diagnosisof Diabetes Mellitus.Hematocrit Auto (Bld) [Volume fraction]Ordered By: Julius Saldaña on 79-85-4458Uenauipntj (Bld) [Volume fraction]44.2 %38.8-50.0 [facility] HospitalHemoglobin [Mass/volume] in BloodOrdered By: Julius Saldaña on 77-46-8386Fxmboqvzmt (Bld) [Mass/Vol]15.1 g/dL13.0-17.0 [facility] HospitalKetones Auto test strip (U) [Mass/Vol]Ordered By: Julius Saldaña on 37-03-7577Mweabif (U) [Mass/Vol]NegativeNegativeSt. Elizabeth HospitalLaboratory - CoagulationOrdered By: Julius Saldaña on 92-65-2711GZ Coag (PPP) [Time]11.2 s9.0-12.9[facility] - UrinalysisOrdered By: Julius Saldaña on 23-20-2366Jdvyazp casts LM Ql (Urine sed)None seen [LPF]0-8[facility] HospitalLeukocytes [#/volume] corrected for nucleated erythrocytes in Blood by Automated coun Ordered By: Julius Saldaña on 09-35-5760ZGR corrected for nucl RBC Auto (Bld) [#/Vol]9.3 10*3/uL4.1-10.5FSouthview Medical CenterLymphocytes Auto (Bld) [#/Vol]Ordered By: Julius Saldaña on 25-20-1990Vhezjolxjrh (Bld) [#/Vol]2.5 10*3/uL1.00-4.8[facility] HospitalLymphocytes/100 WBC Auto (Bld) Ordered By: Julius Saldaña on 31-65-9695Smdwbblndtp/100 WBC (Bld)27.3 %.[facility] HospitalH Auto (RBC) [Entitic mass]Ordered By: Julius Saldaña on 46-94-9348TFD (RBC) [Entitic mass]31.0 pg27.5-35.2FSouthview Medical CenterMCHC Auto (RBC) [Mass/Vol]Ordered By: Julius Saldaña on 24-11-0458SIWV (RBC) [Mass/Vol]34.2 g/dL32.5-35.6FZanesville City HospitalV Auto (RBC) [Entitic vol]Ordered By: Julius Saldaña on 00-32-2294RUF (RBC) [Entitic vol]90.7 fL83.5-101St. [facility] HospitalMonocyte distribution width [Entitic volume] in Blood by AutomatedOrdered By: Julius Saldaña on 03-02-2023 Monocyte distribution width Auto (Bld) [Entitic vol]19.54 %0.00-20.00St. [facility] HospitalMonocytes Auto (Bld) [#/Vol]Ordered By: Julius Saldaña on 55-67-2171Hugeltmyy (Bld) [#/Vol]0.6 10*3/uL0.0-0.8[facility]. [facility] HospitalMonocytes/100 WBC Auto (Bld)Ordered By: Julius Saldaña on 03-02-2023 Monocytes/100 WBC (Bld)6.2 %.[facility] HospitalNeutrophils Auto (Bld) [#/Vol]Ordered By: Julius Saldaña on 18-89-3228Havdromozyj (Bld) [#/Vol]5.9 10*3/uL1.8-7.7FSouthview Medical CenterNeutrophils/100 WBC Auto (Bld) Ordered By: Julius Saldaña on 49-62-6738Mnwwcygjnbx/100 WBC (Bld)63.6 %.[facility] HospitalNitrite Test strip Ql (U)Ordered By: Julius Saldaña on 68-00-9533Kgmveqi Ql (U)NegativeNegativeFirelands Regional Medical CenterNo Panel InformationOrdered By: Julius Saldaña on 97-69-0878Ylrkguk Glucose #[address]/rnFSouthview Medical CenterBedside Glucose Comment Glu2: cleaned meterSt. Elizabeth HospitalEstimated GFR (CKD-EPI)> 60.0 mL/MinSt. Elizabeth HospitalPharmacy Creatinine Clearance (Chem 101.58St. [facility] HospitalNucleated erythrocytes [Presence] in Blood by Automated countOrdered By: Julius Saldaña on 81-60-8723Iqdhylgal RBC Auto Ql (Bld)0.2 /100{WBC}0-0.5FSouthview Medical CenterPlatelet mean volume Auto (Bld) [Entitic vol]Ordered By: Julius Saldaña on 19-59-9400Pfxncntp mean volume (Bld) [Entitic vol]8.7 fL6.6-10.1FSouthview Medical Center Platelet poor plasma international normalized ratio (INR) by coagulation assay (relatOrdered By: Julius Saldaña on 24-72-3163VML Coag (PPP) [Relative time]1.0 {INR}[facility]. [facility] HospitalComment on above:INR Therapeutic Range A) Pre- and [...] Auto (Bld) [#/Vol]Ordered By: Julius Saldaña on 30-71-1551Wgiqmkdht (Bld) [#/Vol] 283 10*3/tX390-417LqnrniqcqSt. Elizabeth HospitalPotassium [Moles/volume] in Serum or PlasmaOrdered By: Julius Saldaña on 68-67-0499Odzbkwoed [Moles/Vol]4.3 mmol/L3.5-5.1FSouthview Medical CenterProtein Auto test strip (U) [Mass/Vol]Ordered By: Julius Saldaña on 23-92-0748Dilwora (U) [Mass/Vol]Trace mg/dLNegativeSt. Elizabeth HospitalProtein [Mass/volume] in Serum or PlasmaOrdered By: Julius Saldaña on 37-67-7057Zrmchjc [Mass/Vol]6.7 g/dL6.4-8.9 [facility] HospitalRBC Auto (Bld) [#/Vol]Ordered By: Julius Saldaña on 44-49-3223LQE (Bld) [#/Vol]4.88 10*6/uL3.90-5.60[facility]vue Hospitalerum or plasma albumin/globulin mass ratioOrdered By: Julius Saldaña on 16-46-8615Ekfzzqb/Globulin [Mass ratio]1.1 {ratio}[facility] Hospitalerum or plasma anion gap determinationOrdered By: Julius Saldaña on 08-33-0131Wlmmq gap [Moles/Vol]9.2 mmol/L6.0-15.0[facility] Hospitalodium [Moles/volume] in Serum or PlasmaOrdered By: Julius Saldaña on 10-79-9879Nitisr [Moles/Vol]135 mmol/H143-117RcanmryzeSt. [facility] Hospital Specific gravity Auto test strip (U) [Rel density]Ordered By: Julius Saldaña on 24-59-2237Cvrhijej gravity (U) [Rel density]1.0281.001-1.030[facility] Hospitalquamous epithelial cells detection in urine sediment by light microscopyOrdered By: Julius Saldaña on 94-13-0217Easltqhqpw cells.squamous LM Ql (Urine sed)None seen [HPF]0-2FSouthview Medical CenterTroponin I.cardiac [Mass/volume] in Serum or Plasma by Detection limit <= 0.01 ng/Ordered By: Julius Saldaña 27-99-6564Idovgbol I.cardiac DL <= 0.01 ng/mL [Mass/Vol]4.9 pg/mL0.0-20.0[facility] HospitalUrea nitrogen [Mass/volume] in Serum or PlasmaOrdered By: Julius Saldaña 90-71-7548Umkh nitrogen [Mass/Vol]17 mg/dL7-25St. [facility] HospitalUrine bacteria detection by automated methodOrdered By: Julius Saldaña on 26-15-8685Cvkkzixb Auto Ql (U)None seenNone SeenSt. Elizabeth HospitalUrine clarity by refractometry automated Ordered By: Julius Saldaña on 57-34-8824Avvyazv Refractometry automated (U)Clear ClearSt. Elizabeth HospitalUrine glucose measurement by automated test strip (mass/volume)Ordered By: Julius Saldaña on 31-21-6692Tweczjb Auto test strip (U) [Mass/Vol]>=1000 mg/dLNoWright-Patterson Medical CenterUrine hemoglobin detection by automated test stripOrdered By: Julius Saldaña on 59-37-7589Ridneuzjnq Auto test strip Ql (U)NegativeNegativeSt. Elizabeth HospitalUrine leukocyte esterase detection by automated test stripOrdered By: Julius Saldaña on 90-05-6362Rldkkyuyy esterase Auto test strip Ql (U)Negative NegativeSt. Elizabeth HospitalUrobilinogen Auto test strip (U) [Mass/Vol]Ordered By: Julius Saldaña on 84-13-8699Ekwimxkbyjhr (U) [Mass/Vol] Normal mg/dLNoWright-Patterson Medical CenterWBC Auto (Bld) [#/Vol]Ordered By: Julius Saldaña on 81-79-2743ZWW (Bld) [#/Vol]9.3 10*3/uL4.1-10.5FSouthview Medical CenterpH Auto test strip (U)Ordered By: Julius Saldaña on 79-22-4316xO (U)6.5 [pH]5.0-9.0[facility] HospitalCBC AUTO DIFFon 32-76-8295CLCZ #0.1 103/ulNormal0.0-0.1The [facility] HospitalComment on above: Performed By: #### CBC ####[facility] V[address]cyqnsxe[address] [place], [place] [address]Dr.Yilan ChangBasophils/100 WBC (Bld)0.4 %Normal 0.2-2.0The [facility] HospitalComment on above:Performed By: #### CBC ####[facility] [address]rxg[address] [place] [address]Dr.Yilan ChangEO # 0.1 103/ulNormal0.0-0.7The [facility] HospitalComment on above:Performed By: #### CBC ####[facility] Sllduegzjb[address] [place] [address]Dr. Yilan ChangEosinophils/100 WBC (Bld)0.4 %Critically low0.9-7.0The [facility] HospitalComment on above:Performed By: #### CBC ####[facility] Ptatxjivzi[address] [place], [place] [address]Dr.Abhinav ChangErythrocyte distribution width (RBC) [Ratio]13.1 %Cgivha68.0-15.0[facility] Comment on above:Performed By: #### CBC ####[facility] Llsoxzddmq8[address] [place], [place] [address]Dr.Abhinav ChangHematocrit (Bld) [Volume fraction]42.1 %Kuexjp36.0-54.0The [facility] HospitalComment on above:Performed By: #### CBC ####[facility] Npwsnewkll[address] [place], [place] [address]Dr.Abhinav ChangHemoglobin (Bld) [Mass/Vol]14.4 g/nYCpfcqu93.0-18.0The [facility] HospitalComment on above:Performed By: #### CBC ####[facility] Kmyhrviylq[address] [place], [place] [address]Dr.Abhinav ChangIG #0.36 10e3/ulCritically high0.00-0.03The [facility] HospitalComment on above:Performed By: #### CBC ####[facility] Zbkoazajez84[address] [place], [place] [address]Dr.Abhinav ChangIG %2.4 %Critically high0.0-0.5The [facility] HospitalComment on above:Performed By: #### CBC ####[facility] Wczbqxlmal88[address] [place], [place] [address]Dr.Abhinav ChangLYMPH #1.9 103/ulNormal1.2-3.8The [facility] HospitalComment on above:Performed By: #### CBC ####[facility] Eupukxgwyp6[address] [place], [place] [address]Dr.Abhinav ChangLymphocytes/100 WBC (Bld)12.5 %Critically low20.5-60.0The [facility] HospitalComment on above: Performed By: #### CBC ####[facility] Yuzmtcjgrs[address] [place], [place] [address]Dr.Abhinav LagunaMANUAL DIFF REQNONormalThe [facility] HospitalComment on above:Performed By: #### CBC ####[facility] R[address]pxilmw[address] [place] [address]Dr.Abhinav LagunaH (RBC) [Entitic mass]31.1 zrUkvhoh81.9-34.0The [facility] HospitalComment on above: Performed By: #### CBC ####[facility] Lpkcwoorpl[address] [place], [place] [address]Dr.Abhinav LagunaHC (RBC) [Mass/Vol]34.2 g/dLNormal 29.9-35.2The [facility] HospitalComment on above:Performed By: #### CBC ####[facility] Aakzznhkdz80[address] [place], [place] [address]Dr. Abhinav LagunaV (RBC) [Entitic vol]90.9 sVXnasro17.0-94.0[facility] Comment on above:Performed By: #### CBC ####[facility] Itsobwiqcp[address] [place], [place] [address]Dr.Abhinav LagunaMONO #0.4 103/ulNormal0.3-0.8 The [facility] HospitalComment on above:Performed By: #### CBC ####[facility] Mjladfelwc[address] [place], [place] [address]Dr.Abhinav Laguna Monocytes/100 WBC (Bld)2.3 %Normal1.7-12.0The [facility] HospitalComment on above: Performed By: #### CBC ####[facility] Vxthogaujj79[address] [place], [place] [address]Dr.Abhinav LagunaNEUT #12.5 103/ulCritically high1.4-6.5 The [facility] HospitalComment on above:Performed By: #### CBC ####[facility] Lrslnrxijz47[address] [place], [place] [address]Dr.Abhinav Laguna Neutrophils/100 WBC (Bld)82.0 %Critically high43.0-75.0[facility] Comment on above:Performed By: #### CBC ####[facility] [address]seomdp[address] [place] [address]Dr.Abhinav JasePlatelet mean volume (Bld) [Entitic vol]10.0 fLNormal9.5-13.5The [facility] HospitalComment on above: Performed By: #### CBC ####[facility] Ewenrz[address]yx[address] [place] [address]Dr.Abhinav WfsstHAQ017 103/qvXahybf257-523Elo Saint [facility] HospitalComment on above:Performed By: #### CBC ####[facility] Knccplhcua7[address] [place], [place] [address]Dr.Mirandagallo ChangRBC4.63 106/ul Critically low4.70-6.10The [facility] HospitalComment on above:Performed By: #### CBC ####[facility] Gabztqnvhr66[address] [place], [place] [address]Dr. Abhinav GvhpyUAP23.2 103/ulCritically high4.0-11.0The [facility] HospitalComment on above:Performed By: #### CBC ####[facility] Kbgmtpdpdj[address] [place], [place] [address]Dr.Abhinav LagunaCT HEAD WO CONon 18-76-2521MR HEAD WO CONNormalCincinnati [facility] URINE PROFILEon 21-10-9724Vfufyieil Ql (U) NegativeNormalNEGATIVEMercy Memorial HospitalComment on above:Performed By: #### CATALINA MANRIQUEZR ####[facility] Ewnzuukpuj[address] [place], [place] [address]Dr. Abhinav ChangClarity (U)CLEARNormalCLEARMercy Memorial HospitalComment on above:Performed By: #### CATALINA MANRIQUEZR ####[facility] [address]pc[address]waq[address] [place], [place] [address]Dr. Abhinav ChangColor (U)YELLOWNormalYELLOWMercy Memorial HospitalComment on above:Performed By: #### DECLAN ERUR ####[facility] Txpjqhqgzf[address] [place], [place] [address]Dr. Abhinav ChangERUAHD A micrscopic examination will be performed if indicated.NormalThe [facility] HospitalComment on above:Performed By: #### DECLAN, ERUR ####[facility] [address]wn[address] [place], [place]Dr. Yilan ChangGlucose Ql (U) >1000AbnormalNEGATIVEThe [facility] HospitalComment on above:Performed By: #### DECLAN, ERUR ####[facility] [address] [place] [phone]. Yilan ChangHemoglobin Ql (U)NegativeNormalNEGATIVEThe [facility] on above:Performed By: #### DECLAN, ERUR ####[facility] [address]bes[address]fu[address] [place] [id number]. Yilan ChangKetones Ql (U) TRACEAbnormalNEGATIVEThe [facility] HospitalComment on above:Performed By: #### DECLAN, ERUR ####[facility] [address]ch[address]qf[address] [place] [id number]. Yilan ChangLEUKOCYTESNegativeNormalNEGATIVEMercy Memorial HospitalComment on above:Performed By: #### DECLAN, ERUR ####[facility] X[address]dn[address] [place] [id number]. Yilan ChangNitrite Ql (U)NegativeNormal NEGATIVEMercy Memorial HospitalComment on above:Performed By: #### DECLAN, ERUR ####[facility] [address]fm[address]rsnk[address] [place] [id number]. Yilan ChangpH (U)5.0 [pH]Normal5-9The [facility] HospitalComment on above: Performed By: #### DECLAN, ERUR ####[facility] L[address]ibltp39[address] [place] [id number]. Yilan ChangProtein (U) [Mass/Vol]30 mg/dLAbnormal NEGATIVE/ TRACEThe [facility] HospitalComment on above:Performed By: #### DECLAN, ERUR ####[facility] Rvjwnkaifa[address] [place] [id number]. Yilan ChangSPEC GRAVITY>=1.095Okgfghpo5.005-<=1.025The [facility] HospitalComment on above:Performed By: #### CATALINA MANRIQUEZR ####[facility] Byvghpyasp[address]20 [address] Abhinav LagunaUR MICRO INDINDICATEDNormalThe [facility] HospitalComment on above:Performed By: #### CATALINA MANRIQUEZR ####[facility] Kzvngnsmsv0701 [address] Abhinav Laguna Urobilinogen Qn (U)1.0 {Marshall'U}/dLNormal0.2 - 1.0The [facility] HospitalComment on above:Performed By: #### YASMINE MANRIQUEZ ####[facility] Ayugecfsnf[address] [place], [place] [address]r. Abhinav LagunaPROF CHEM 8 (BAS METB)on 24-90-9056Qyniz gap [Moles/Vol]11.3 mmol/LNormalThe [facility] HospitalComment on above:Performed By: #### BMP ####[facility] Rvdvscpgpk[address] [place], [place] [address]Dr.Abhinav ChangCalcium [Mass/Vol]10.4 mg/dLCritically high8.5-10.1The [facility] HospitalComment on above:Performed By: #### BMP ####[facility] Lgzfqfopyr8[address] [place], [place] [address]Dr. Yilan ChangChloride [Moles/Vol]99 mmol/FCkryim33-912Hzi [facility] HospitalComment on above:Performed By: #### BMP ####[facility] Sjbpqrgcsr98[address] [place], [place] [address]Dr.Abhinav ChangCO2 [Moles/Vol]28.0 mmol/LNormal 21.0-32.0The [facility] HospitalComment on above:Performed By: #### BMP ####[facility] Qgboylhynz27[address] [place], [place] [address]Dr. Abhinav ChangCreatinine [Mass/Vol]1.05 mg/dLNormal0.70-1.30[facility] Comment on above:Performed By: #### BMP ####[facility] [address]rezqne[address] [place] [address]Dr.Yilan ChangEGFR-AF COLOMBIAN>60Normal>=60 The [facility] HospitalComment on above:Performed By: #### BMP ####[facility] Lzjuhywqxr[address] [place], [place] [address]Dr.Yilan ChangEGFR- NON AF COLOMBIAN>60Normal>=60The [facility] HospitalComment on above:Performed By: #### BMP ####[facility] Mxdpymklgd[address] [place], [place] [address]Dr.Yilan ChangGlucose [Mass/Vol]244 mg/dLCritically gdqo80-983Pwa [facility] HospitalComment on above:Performed By: #### BMP ####[facility] Vtoqgbffdb[address] [place], [place] [address]Dr.Yilan ChangPotassium [Moles/Vol]4.3 mmol/LNormal3.5-5.1The [facility] HospitalComment on above: Performed By: #### BMP ####[facility] Wskknkluef[address] [place], [place] [address]Dr.Yilan ChangSodium [Moles/Vol]134 mmol/LCritically jxd347-473Ltk [facility] HospitalComment on above:Performed By: #### BMP ####[facility] Lkrgpmolwx[address] [place], [place] [address]Dr. Yilan ChangUrea nitrogen [Mass/Vol]26.0 mg/dLCritically high7.0-18.0The [facility] HospitalComment on above:Performed By: #### BMP ####[facility] Xkckraonwo[address] [place], [place] [address]Dr.Yilan ChangUrea nitrogen/Creatinine [Mass ratio]24.8 mg/mgNormalThe [facility] HospitalComment on above:Performed By: #### BMP ####[facility] Zxipzbswyc[address] [place], [place] [address]Dr.Yilan ChangURINE MICROSCOPIC ONLYon 12-08-2022 BACTERIANONE SEENNormalNONE SEENThe [facility] HospitalComment on above:Performed By: #### YASMINE MANRIQUEZ ####[facility] Ninwqkugoy[address] [place], [place]Dr. Abhinav LagunaBacteria identified Cx Nom (U)NOT INDICATEDNoLicking Memorial HospitalComduane l. waters hospital on above:Performed By: #### DECLAN ERUR ####[facility] Gqzytxjmiq59[address] [place], [place]Dr. Abhinav ChangCA OX CRYSTALSMANYNormalMercy Memorial HospitalComment on above: Performed By: #### CATALINA MANRIQUEZR ####[facility] [address]zitscd[address] [place] [id number]. Abhinav ChangCASTSEENAbnormalNONE SEENMercy Memorial HospitalComduane l. waters hospital on above:Performed By: #### CATALINA MANRIQUEZR ####[facility] Bpbulprqcy94[address] [place] [id number]. Abhinav ChangCrystals LM Nom (Urine sed)SEENAbnormalNONE SEENMercy Memorial HospitalComduane l. waters hospital on above:Performed By: #### CATALINA MANRIQUEZR ####[facility] Fxpcwqdwic[address] [place] [id number]. Abhinav ChangEpithelial cells LM Ql (Urine sed)RARE NormalNONE SEEN /RAREMercy Memorial HospitalComduane l. waters hospital on above:Performed By: #### CATALINA MANRIQUEZR ####[facility] Kfcoomoqkx8185 [place], [place] [address]Bb. Abhinav LagunaHYALINE CASTFEWOhioHealthComment on above: Performed By: #### CATALINA MANRIQUEZR ####[facility] Mlfvsuhkds[address] [place] [id number]. Abhinav ChangMUCOUSTRACEAbnormalNONE SEENFirelands Regional Medical Center South Campus on above:Performed By: #### CATALINA MANRIQUEZR ####[facility] Krctgtbean[address] [place] [address]Dr. Abhinav EbaovLIC9-5Agfner8-0 The [facility] HospitalComment on above:Performed By: #### CATALINA MANRIQUEZR ####[facility] Ozmarbzeij7786 [place], [place]Dr. Abhinav ChangWBC0-2AbnormalNONE SEENMercy Memorial HospitalComment on above: Performed By: #### YASMINE MANRIQUEZ ####[facility] Cldxwvmtxq2502 [place], [place]Dr. Abhinav LagunaXR CHEST 1 Von 21-20-6508MR CHEST 1 V NormalMercy Memorial HospitalBLOOD GASES BTYon 59-39-975710 MODEROOM [facility]ucl[facility] HospitalComment on above:Performed By: #### ABG ####[facility] Fvwlzbmxgm[address] [place] [address]Dr.Abhinav LoaizaENS TEST PositiveOhioHealthComduane l. waters hospital on above:Performed By: #### ABG ####[facility] R[address]vehcmyf[address] [place], [place] [address]Dr. Abhinav LagunaBase excess Calc (Bld) [Moles/Vol]2.2 mmol/LCritically high-2.0-2.0 The [facility] HospitalComduane l. waters hospital on above:Performed By: #### ABG ####[facility] Eesjoofdnn[address] [place], [place] [address]Dr.Abhinav LagunaBIPAP [facility] HospitalComduane l. [facility] hospital on above:Performed By: #### ABG ####[facility] Tgjcrndehy60[address] [place], [place] [address]Dr. Mirandaburnett medical center JaseCPAPOhioHealthComduane l. waters hospital on above:Performed By: #### ABG ####[facility] Dvoofegcnq[address] [place], [place] [address]Dr. Abhinav LagunaYsfitPKX1IimawjSxoOhioHealthComduane l. waters hospital on above:Performed By: #### ABG ####[facility] Yibiswpeol[address] [place], [place] [address]Dr. Abhinav ChangHCO3 (Bld) [Moles/Vol]27.0 mmol/LCritically high22.0-26.0Mercy Memorial HospitalComment on above:Performed By: #### ABG ####[facility] Nahrtetoeq[address] [place], [place] [address]Dr.Mirandagallo ChangLPMNormalThe Saint Paul HospitalComment on above:Performed By: #### ABG ####[facility] Llybyekesj[address] [place] [address]Dr.Abhinav ChangMINUTE VOLUME NormalThe [facility] HospitalComment on above:Performed By: #### ABG ####[facility] Xpouzdnrug[address] [place] [address]Dr.Mirandagallo LagunaOxygen (Bld) [Partial pressure]84.3 mm[Hg]Tsfyad13.0-100.0The [facility] HospitalComment on above:Performed By: #### ABG ####[facility] Rapiiikqfh6[address] [place], [place] [address]Dr.Abhinav LagunaOxygen saturation in Blood96.8 %Normal 95.0-100.0The [facility] HospitalComment on above:Performed By: #### ABG ####[facility] Cbwljbfvgp[address] [place], [place] [address]Dr. Mirandagallo LagunaBfhwjSCL582.1 yeZxSxvyqo45.0-45.0The [facility] HospitalComment on above: Performed By: #### ABG ####[facility] Lbyvdlrgzp[address] [place], [place] [address]Dr.Mirandagallo LagunaPEEPNoLicking Memorial HospitalComment on above:Performed By: #### ABG ####[facility] [address] [place], [place] [address]Dr.Abhinav LagunapH (Bld)7.405 [pH]Normal7.350-7.450The [facility] HospitalComment on above:Performed By: #### ABG ####[facility] [address] [place], [place] [address]Dr.Abhinav ChangPIPNormalThe Grant HospitalComment on above:Performed By: #### ABG ####[facility] [address] [place], [place] [address]Dr.Abhinav LagunaPSOhioHealthComment on above:Performed By: #### ABG ####[facility] [address] [address] [place], [place] [address]Dr.Abhinav ChangPUNCTURE SITERR NormalMercy Memorial HospitalComment on above:Performed By: #### ABG ####[facility] [address] [place] [address]Dr.Mirandagallo ChangRATE NormalMercy Memorial HospitalComduane l. waters hospital on above:Performed By: #### ABG ####[facility] Seqfwcrecg[address] [place] [address]Dr.Mirandalan ChangVENT MODEOhioHealthComment on above:Performed By: #### ABG ####[facility] Wvlckymblr[address] [place] [address]Dr. [facility] HospitalComduane l[facility] on above:Performed By: #### ABG ####[facility] Tippvzuhza[address] [place], [place] [address]Dr. Abhinav ChangLACTATE/LACTIC ACIDon 50-65-8992Ootulhi [Moles/Vol]2.4 mmol/L Critically high0.4-2.0[facility] on above:Performed By: #### LACT ####[facility] Sprjciwhaw[address] [place], [place] [address]Dr. Abhinav ChangLactate [Moles/Vol]3.1 mmol/LCritically high0.4-2.0[facility] on above:Performed By: #### LACT ####[facility] Uzhkicrpcy[address] [place], [place] [address]Dr. Abhinav [facility] CARE GLUCOSEon 49-69-3345Oobxqzx [Mass/Vol]286 mg/dLCritically yies19-076KxgMercy Memorial HospitalComduane l. waters hospital on above:Performed By: #### POCGLUC ####[facility] Xsnmldjsyj4[address] [place], [place] [address]Dr. Abhinav ChangGlucose [Mass/Vol]94 mg/mAGqjyid21-743UfkMercy Memorial HospitalComduane l. waters hospital on above:Performed By: #### POCGLUC ####[facility] Crsavwrjjv[address] [place], [place] [address]Dr. Abhinav ChangACETONE SERUMon 13-01-6464YEYRQGYZbrfkutiKnhlqlLEFFODWT The [facility] HospitalComment on above:Performed By: #### ACETON ####[facility] Frizjjksrz[address] [place], [place] [address]Dr. Abhinav ChangBNPon 96-16-8974Pmxeeciwdmt peptide B (Bld) [Mass/Vol]130.0 pg/mLNormal<=900.0The [facility] HospitalComment on above:Performed By: #### BNP, CMP, LIPA, HSTROPN ####[facility] Cxzqtmzqqn48[address] [place], [place] [address]Dr. Abhinav LagunaCBC AUTO DIFFon 55-79-1205POAP #0.0 103/ulNormal0.0-0.1The [facility] on above:Performed By: #### CBC ####[facility] Bstjoeeiri4[address] [place], [place] [address]Dr.Abhinav ChangBasophils/100 WBC (Bld)0.2 %Normal0.2-2.0[facility] on above:Performed By: #### CBC ####[facility] Koylbcixye76[address] [place], [place] [address]Dr.Mirandalan ChangEO #0.0 103/ulNormal0.0-0.7The [facility] on above:Performed By: #### CBC ####[facility] Rsctynrjob6236[address] [place], [place] [address]Dr.Abhinav ChangEosinophils/100 WBC (Bld)0.1 %Critically low0.9-7.0The [facility] on above:Performed By: #### CBC ####[facility] Jiidvpazua[address] [place], [place] [address]Dr. Abhinav ChangErythrocyte distribution width (RBC) [Ratio]12.9 %Ddqogz46.0-15.0The [facility] Hospitalment on above:Performed By: #### CBC ####[facility] Dtdxuefxil5[address] [place], [place] [address]Dr.Abhinav ChangHematocrit (Bld) [Volume fraction]44.2 %Oevyqq34.0-54.0The [facility] HospitalComment on above:Performed By: #### CBC ####[facility] Xfqtobobab[address] [place] [address]Dr.Abhinav LagunaHemoglobin (Bld) [Mass/Vol]15.7 g/dL Aeixsa05.0-18.0The [facility] HospitalComment on above:Performed By: #### CBC ####[facility] Pgnvltdxnl65[address] [place], [place] [address]Dr. Mirandagallo JaseIG #0.14 10e3/ulCritically high0.00-0.03The [facility] HospitalComment on above:Performed By: #### CBC ####[facility] Tpienybkov95[address] [place], [place] [address]Dr.Abhinav LagunaIG %0.9 %Critically high0.0-0.5The [facility] HospitalComment on above:Performed By: #### CBC ####[facility] Nidyzxbjuz0[address] [place], [place] [address]Dr.Abhinav LagunaLYMPH #1.9 103/ulNormal1.2-3.8The [facility] HospitalComment on above:Performed By: #### CBC ####[facility] Dxqgzskofk1676[address] [place], [place] [address]Dr. Abhinav LagunaLymphocytes/100 WBC (Bld)11.8 %Critically low20.5-60.0The [facility] HospitalComment on above:Performed By: #### CBC ####[facility] Ftgngsnfoq2065[address] [place], [place] [address]Dr.Abhinav LagunaMANUAL DIFF REQ NONormalThe [facility] HospitalComment on above:Performed By: #### CBC ####[facility] Apqaytiaqc2842[address] [place], [place] [address]Dr. Abhinav [facility]unaGEN[facility] (RBC) [Entitic mass]31.0 khKlxlit13.9-34.0[facility] Comment on above:Performed By: #### CBC ####[facility] Unpanqoplv534[address] [place], [place] [address]Dr.Abhinav LagunaUPSTATE [facility] (RBC) [Mass/Vol]35.5 g/dL Critically high29.9-35.2The [facility] HospitalComment on above:Performed By: #### CBC ####[facility] Yqjzgnstwq7258[address] [place], [place] [address]Dr.Abhinav LagunaMCV (RBC) [Entitic vol]87.4 dPUylmqt43.0-94.0The [facility] HospitalComment on above:Performed By: #### CBC ####[facility] Cwstpxtqtw4395[address] [place], [place] [address]Dr.Abhinav LagunaMONO #1.0 103/ulCritically high0.3-0.8The [facility] HospitalComment on above:Performed By: #### CBC ####[facility] Wdgzzokcyl5[address] [place], [place] [address]Dr.Abhinav LagunaMonocytes/100 WBC (Bld)6.1 %Normal1.7-12.0The [facility] HospitalComment on above:Performed By: #### CBC ####[facility] Szqiaytzls8[address] [place], [place] [address]Dr.Abhinav LagunaNEUT #13.0 103/ulCritically high1.4-6.5The [facility] HospitalComment on above:Performed By: #### CBC ####[facility] Qfbdllqvdh2362[address] [place], [place] [address]Dr.Abhinav LagunaNeutrophils/100 WBC (Bld)80.9 %Critically high43.0-75.0The [facility] HospitalComment on above:Performed By: #### CBC ####[facility] Fjiukxpsep9974[address] [place], [place] [address]Dr.Abhinav LagunaPlatelet mean volume (Bld) [Entitic vol]10.0 fLNormal9.5-13.5The [facility] HospitalComment on above:Performed By: #### CBC ####[facility] Onyocvzkhb3549[address] [place], [place] [address]Dr.Abhinav WwbilQBA786 103/rhHeroew574-809Qdl [facility] HospitalComment on above:Performed By: #### CBC ####[facility] Bnqbmoaeup[address] [place], [place] [address]Dr.Abhinav JaseRBC5.06 106/ul Normal4.70-6.10The [facility] HospitalComment on above:Performed By: #### CBC ####[facility] Pmuesfevvg7823[address] [place], [place] [address]Dr. Abhinav LagunaWBC16.1 103/ulCritically high4.0-11.0Mercy Memorial HospitalComment on above:Performed By: #### CBC ####[facility] Murnxrqljp11[address] [place], [place] [address]Dr.Abhinav LagunaDRUG SCREEN RAPID (URINE)on 12-03-2022 AMPNegativeNormalNEGATIVEMercy Memorial HospitalComment on above:Performed By: #### YASMINE DRUGRPD ####[facility] Lxzxjafnsb654[address] [place], [place] [address]Dr. Abhinav LagunaBARPositiveAbnormalNEGATIVEMercy Memorial HospitalComment on above:Performed By: #### YASMINE DRUGRPD ####[facility] Thiwtikfwn7794[address] [place], [place] [address]Dr. Abhinav LagunaBUPNegative NormalNEGATIVEMercy Memorial HospitalComment on above:Performed By: #### YASMINE DRUGRPD ####[facility] Fuyzlsqsbz11[address] [place], [place] [address]Dr. Abhinav LagunaBZONegativeNormalNEGATIVEMercy Memorial HospitalComment on above:Performed By: #### YASMINE DRUGRPD ####[facility] Ccxiqayjlq0003[address] [place], [place] [address]Dr. Abhinav LagunaCOCNegativeNormalNEGATIVEMercy Memorial HospitalComment on above:Performed By: #### CATALINAR DRUGRPD ####[facility] Wemfpgisvc9608[address] [place], [place] [address]Dr. Abhinav Laguna CUT-OFFSSEE BELOWNormalThMercy Health Lorain HospitalComment on above:Result Comment: AMP (Amphetamine): 500ng/mL, BAR (Barbituates): 200 ng/mL, BZO (Benzodiazepines): 15 0 ng/mL, BUP (Buprenorphine): 10 ng/mL, ISELA (Cocaine): 150 ng/mL, mAMP (Methamphetamine): 500 ng/mL, MTD (Methadone): 200 ng/mL, OPI (Opiates): 100 ng/mL, OXY (Oxycodone): 100 ng/mL, PCP (Phencyclidine): 25 ng/mL, PPX (Propoxyphene): 300 ng/mL, THC (Cannabinoids): 50 ng/mL, TCA (Trycyclic Antidepressants): 300 ng/mLPerformed By: #### ERUR DRUGRPD ####[facility] Mfumzqwzil24[address] [place], [place] [address]Dr. Abhinav ChangDRUG CUT HEADERDRUG CLASS TEST SYSTEM CUT-OFF CONCENTRATIONS ARE FOLLOWS:NormalThe [facility] HospitalComment on above:Performed By: #### YASMINE DRUGRPD ####[facility] Enwhvmbdvu3086[address] [place], [place] [address]Dr. Abhinav ChangmAMP NegativeNormalNEGATIVECleveland Clinic South Pointe Hospital HospitalComment on above:Performed By: #### YASMINE DRUGRPD ####[facility] Raiochagfg0875[address] [place], [place] [address]Dr. Yigallo ChangMTDNegativeNormalNEGATIVEMercy Memorial HospitalComment on above:Performed By: #### YASMINE DRUGRPD ####[facility] Axikbofqec4317[address] [place], [place] [address]Dr. Yilan ChangOPIPositiveAbnormalNEGATIVE [facility] Memorial HospitalComment on above:Performed By: #### CATALINAR DRUGRPD ####[facility] Voocwolwmx888[address] [place], [place] [address]Dr. Yilan ChangOXYNegativeNormalNEGATIVECleveland Clinic South [facility]inte Hospital HospitalComment on above: Performed By: #### ERUR DRUGRPD ####[facility] Xjzsffzkpo264[address] [place], [place] [address]Dr. Yilan ChangPCPNegativeNormalNEGATIVECleveland Clinic South [facility]inte Hospital HospitalComment on above:Performed By: #### ERUR DRUGRPD ####[facility] Kccnvhcjwi5787[address] [place], [place] [address]Dr. Yilan ChangPPXNegative NormalNEGATIVEThe [facility] HospitalComment on above:Performed By: #### ERUR, DRUGRPD ####[facility] Yqficrrots4679[address] [place], [place] [address]Dr. Yilan ChangTCANegativeNormalNEGATIVEMercy Memorial HospitalComment on above:Performed By: #### ERUR, DRUGRPD ####[facility] Eecljstusb[address] [place], [place] [address]Dr. Yilan ChangTHCPositiveAbnormalNEGATIVEMercy Memorial HospitalComment on above:Performed By: #### ERUR, DRUGRPD ####[facility] Zlptaxnkkp4202[address] [place], [place] [address]Dr. Yilan ChangER URINE PROFILEon 91-91-7771Xudpnwisk Ql (U)NegativeNormalNEGATIVEMercy Memorial HospitalComment on above:Performed By: #### CATALINAR, DRUGRPD ####[facility] Uwdeiqvmdz368[address] [place], [place] [address]Dr. Yilan ChangClarity (U) CLEARNormalCLEARMercy Memorial HospitalComment on above:Performed By: #### ERUR, DRUGRPD ####[facility] Inykjuafhv2589[address] [place], [place] [address]Dr. Yilan ChangColor (U)LT. YELLOWNormalYELLOWMercy Memorial HospitalComment on above:Performed By: #### ERUR, DRUGRPD ####[facility] Zkuisbknjo9054[address] [place], [place] [address]Dr. Yilan ChangERUAHDA micrscopic examination will be performed if indicated.NormalMercy Memorial HospitalComment on above:Performed By: #### ERUR, DRUGRPD ####[facility] Iapiyvypyp63[address] [place], [place] [address]Dr. Yilan ChangGlucose Ql (U)>1000Abnormal NEGATIVEMercy Memorial HospitalComment on above:Performed By: #### ERUR, DRUGRPD ####[facility] Jqynbtgpds7699[address] [place], [place] [address]Dr. Yilan ChangHemoglobin Ql (U)NegativeNormalNEGATIVEThe [facility] HospitalComment on above:Performed By: #### YASMINE DRUGRPD ####[facility] B[address]fbtaxki[address] [place] [address]Dr. Abhinav LgaunaKetones Ql (U)NegativeNormal NEGATIVEThe [facility] HospitalComment on above:Performed By: #### YASMINE DRUGRPD ####[facility] Anmestbwll[address] [place] [address]Dr. Abhinav LagunaLEUKOCYTESNegativeNormalNEGATIVEThe [facility] HospitalComment on above:Performed By: #### YASMINE DRUGRPD ####[facility] Woniwecbgu46[address] [place] [address]Dr. Abhinav LagunaNitrite Ql (U)NegativeNormal NEGATIVEThe [facility] HospitalComment on above:Performed By: #### YASMINE DRUGRPD ####[facility] Irnarwszkp0611[address] [place], [place] [address]Dr. Abhinav LagunapH (U)5.5 [pH]Normal5-9The [facility] HospitalComment on above: Performed By: #### YASMINE DRUGRPD ####[facility] Frqykibbif8119[address] [place], [place] [address]Dr. Abhinav LagunaSPEC GRAVITY1.664Bjncbk2.005-<=1.025The [facility] HospitalComment on above:Performed By: #### YASMINE DRUGRPD ####[facility] Bavxuiazlt4542[address] [place], [place] [address]Dr. Abhinav LagunaUA PROTEINNegativeNormalNEGATIVE/ TRACEThe [facility] HospitalComment on above: Performed By: #### YASMINE DRUGRPD ####[facility] Rgrymgrtiu4119[address] [place], [place] [address]Dr. Abhinav LagunaUR MICRO INDNOT INDICATEDNormalThe [facility] HospitalComment on above:Performed By: #### YASMINE, DRUGRPD ####[facility] Paibawnncl5744[address] [place], [place] [address]Dr. Abhinav Laguna Urobilinogen Qn (U)0.2 {Marshall'U}/dLNormal0.2 - 1.0The [facility] Hospitalment on above:Performed By: #### ERUR, DRUGRPD ####[facility] Bbetsbxedd[address] [place], [place] [address]Dr. Abhinav ChangLACTATE/LACTIC ACIDon 30-40-4837Rmkbqfv [Moles/Vol]3.0 mmol/LCritically high0.4-2.0The [facility] HospitalComment on above:Performed By: #### LACT ####[facility] Ahyoirkypj6252[address] [place], [place] [address]Dr. Mirandagallo ChangLIPASEon 80-17-5245Swfjte [Catalytic activity/Vol]83.0 U/FObfbgp99.0-393.0The [facility] HospitalComduane l. [facility] hospital on above:Performed By: #### BNP, CMP, LIPA, HSTROPN ####[facility] Iyqgorrnev9809[address] [place], [place] [address]Dr. Abhinav ChangPH VENOUS BLOODon 14-04-8308QGI1 NBBIIF23.5 mmHgCritically high40.0-52.0The [facility] HospitalComment on above:Performed By: #### PHVEN ####[facility] Hvvmwjpeoc376[address] [place], [place] [address]Dr. iMrandagallo ChangpH VENOUS7.354 Normal7.330-7.430The [facility] on above:Performed By: #### PHVEN ####[facility] Vvvzgrcrcj01[address] [place], [place] [address]Dr. Abhinav [facility] Rehabilitation HospitalPOINT OF CARE GLUCOSEon 45-30-6391Lplzdoq [Mass/Vol]304 mg/dL Critically isdy72-791Gkn [facility] HospitalComment on above:Performed By: #### POCGLUC ####[facility] Iyqqlvdvmw2256[address] [place], [place] [address]Dr. Abhinav LagunaPOCGLUC>600Critically sumn83-329Fcm [facility] on above:Result Comment: Lab Draw OrderedPerformed By: #### POCGLUC ####[facility] Nmtcmecwbs8264[address] [place], [place] [address]Dr. Abhinav ChangPROF 14(COMP METB)on 50-68-3204Ricuqbr [Mass/Vol]2.7 g/dLCritically low3.4-5.0The [facility] HospitalComment on above:Performed By: #### BNP, CMP, LIPA, HSTROPN ####[facility] [address]hoslqfe[address] [place] [address]Dr. Yilan ChangAlbumin/Globulin [Mass ratio]0.6 {ratio}NormalThe [facility] HospitalComment on above:Performed By: #### BNP, CMP, LIPA, HSTROPN ####[facility] Hcfvfjjsoj7[address] [place] [address]Dr. Yilan ChangALP [Catalytic activity/Vol]456 U/LCritically slnm36-735Ykt [facility] HospitalComment on above:Performed By: #### BNP, CMP, LIPA, HSTROPN ####[facility] Frqmwfateq[address] [place], [place] [address]Dr. Yilan ChangALT [Catalytic activity/Vol]28 U/QHjznep55-38Ehs [facility] HospitalComment on above: Performed By: #### BNP, CMP, LIPA, HSTROPN ####[facility] Nmecbkkmtm[address] [place], [place] [address]Dr. Yilan ChangAnion gap [Moles/Vol]7.7 mmol/LNormalThe [facility] HospitalComment on above:Performed By: #### BNP, CMP, LIPA, HSTROPN ####[facility] Sijxdcdtfy[address] [place], [place] [address]Dr. Yilan ChangAST [Catalytic activity/Vol]9 U/LCritically sga96-00Nrd [facility] HospitalComment on above:Performed By: #### BNP, CMP, LIPA, HSTROPN ####[facility] Syztxabryb[address] [place], [place] [address]Dr. Yilan ChangBilirubin [Mass/Vol]0.3 mg/dLNormal0.2-1.0The [facility] Comment on above:Performed By: #### BNP, CMP, LIPA, HSTROPN ####[facility] Vkoldkytzm15[address] [place], [place] [address]Dr. Yilan Laguna Calcium [Mass/Vol]10.9 mg/dLCritically high8.5-10.1The [facility] HospitalComment on above:Performed By: #### BNP, CMP, LIPA, HSTROPN ####[facility] [address]ipyrt[address] [place] [address]Dr. Yilan ChangChloride [Moles/Vol]96 mmol/LCritically owe56-605Ily [facility] HospitalComment on above: Performed By: #### BNP, CMP, LIPA, HSTROPN ####[facility] Ihlxgxmqud23[address] [place], [place] [address]Dr. Yilan ChangCO2 [Moles/Vol]32.1 mmol/L Critically high21.0-32.0The [facility] HospitalComment on above:Performed By: #### BNP, CMP, LIPA, HSTROPN ####[facility] Ehnllqoomw4[address] [place], [place] [address]Dr. Yilan ChangCreatinine [Mass/Vol]1.19 mg/dLNormal 0.70-1.30The [facility] HospitalComment on above:Performed By: #### BNP, CMP, LIPA, HSTROPN ####[facility] Gqmzzryppr8[address] [place], [place] [address]Dr. Yilan ChangEGFR-AF COLOMBIAN>60Normal>=60The [facility] Comment on above:Performed By: #### BNP, CMP, LIPA, HSTROPN ####[facility] Uaciklmyxg07[address] [place], [place] [address]Dr. Yilan ChangEGFR- NON AF COLOMBIAN>60Normal>=60The [facility] HospitalComment on above:Performed By: #### BNP, CMP, LIPA, HSTROPN ####[facility] Tfhoedhvdf36[address] [place], [place] [address]Dr. Yilan ChangGlobulin (S) [Mass/Vol]4.6 g/dLNormal The [facility] HospitalComment on above:Performed By: #### BNP, CMP, LIPA, HSTROPN ####[facility] Nfhkhbaias9[address] [place], [place] [address]Dr. Yilan ChangGlucose [Mass/Vol]478 mg/dLCritically kzga34-637Jda [facility] Comment on above:Performed By: #### BNP, CMP, LIPA, HSTROPN ####[facility] Ix[address]qxhyl[address] [place] [address]Dr. Yigallo Laguna Potassium [Moles/Vol]4.8 mmol/LNormal3.5-5.1The [facility] HospitalComment on above:Performed By: #### BNP, CMP, LIPA, HSTROPN ####[facility] Yrzyaiegyc[address] [place] [address]Dr. Yilan ChangProtein [Mass/Vol]7.3 g/dLNormal6.4-8.2The [facility] HospitalComment on above:Performed By: #### BNP, CMP, LIPA, HSTROPN ####[facility] Lpgadvmuah[address] [place] [address]Dr. Yilan ChangSodium [Moles/Vol]131 mmol/LCritically kqt348-882Xcg [facility] HospitalComment on above:Performed By: #### BNP, CMP, LIPA, HSTROPN ####[facility] Qicgwsimsk[address] [place] [address]Dr. Yilan ChangUrea nitrogen [Mass/Vol]35.0 mg/dLCritically high 7.0-18.0The [facility] HospitalComment on above:Performed By: #### BNP, CMP, LIPA, HSTROPN ####[facility] Nvejzsjesr[address] [place] [address]Dr. Yilan ChangUrea nitrogen/Creatinine [Mass ratio]29.4 mg/mgNormalThe [facility] HospitalComment on above:Performed By: #### BNP, CMP, LIPA, HSTROPN ####[facility] Wlaushslml4[address] [place] [address]Dr. Yilan ChangTROPONIN, HIGH SENSITIVITYon 46-38-0685TBYYVW9.5 pg/mLNormal4.0-76.1 The [facility] HospitalComment on above:Result Comment: CUT-OFF POINTS HAVE BEEN ESTABLISHED BASED ON THE FOURTH UNIVERSAL DEFINITIONS OF MYOCARDIALINFARCTION. THE UPPER REFERENCE LIMIT (URL) OF TROPONIN, DEFINED THE 99TH PERCENTILE OFcT nI DISTRIBUTION IN A REFERENCE POPULATION, HAS BEEN CONFIRMED THE DECISION THRESHOLDFOR MD DIAGNOSIS.Performed By: #### BNP, CMP, LIPA, HSTROPN ####[facility] Lq[address]hrnevzb[address] [place] [address]Dr. Abhinav LagunaXR CHEST 1 Von 78-04-3142LM CHEST 1 VNormalThe [facility] CARDIAC GILMER ADMITon 74-07-5900SN [Catalytic activity/Vol]46 U/CObrbyc96-661Rdh [facility] HospitalComduane l. [facility] hospital on above:Performed By: #### TAD ROLDAN ####[facility] Alagvydyfv5[address] [place], [place] [address]Dr. Abhinav LagunaCK.MB [Mass/Vol]2.60 ng/mLNormal<=3.60The [facility] on above:Performed By: #### TAD ROLDAN ####[facility] Falitjwgfw[address] [place], [place] [address]Dr. Abhinav LagunaHSTROP9.8 pg/mLNormal4.0-76.1The [facility] on above:Result Comment: CUT-OFF POINTS HAVE BEEN ESTABLISHED BASED ON THE FOURTH UNIVERSAL DEFINITIONS OF MYOCARDIALINFARCTION. THE UPPER REFERENCE LIMIT (URL) OF TROPONIN, DEFINED THE 99TH PERCENTILE OFcT nI DISTRIBUTION IN A REFERENCE POPULATION, HAS BEEN CONFIRMED THE DECISION THRESHOLDFOR MD DIAGNOSIS.Performed By: #### TAD ROLDAN ####[facility] Ouqfayqxwl44[address] [place], [place] [address]Dr. Abhinav LagunaMYO43 ng/mL Lmemot15-59Mmm [facility] HospitalComduane l. [facility] hospital on above:Performed By: #### TAD ROLDAN ####[facility] Xvmcryjfca5[address] [place], [place] [address]Dr. Abhinav MaxC AUTO DIFFon 87-99-0539DLEF #0.1 103/ulNormal0.0-0.1The [facility] HospitalComduane l. [facility] hospital on above:Performed By: #### CBC ####[facility] Fhalodsemh[address] [place], [place] [address]Dr.Yilan ChangBasophils/100 WBC (Bld)0.4 %Normal0.2-2.0The [facility] HospitalComment on above:Performed By: #### CBC ####[facility] Uwdejpwfpg2143[address] [place], [place] [address]Dr.Yilan ChangEO #0.1 103/ulNormal0.0-0.7The [facility] HospitalComment on above:Performed By: #### CBC ####[facility] Whsyxlbysa6[address] [place], [place] [address]Dr.Yilan ChangEosinophils/100 WBC (Bld)0.6 %Critically low0.9-7.0The [facility] HospitalComment on above:Performed By: #### CBC ####[facility] Jzhomcewec6387[address] [place], [place] [address]Dr. Yilan ChangErythrocyte distribution width (RBC) [Ratio]13.2 %Cncqxg90.0-15.0The [facility] HospitalComment on above:Performed By: #### CBC ####[facility] Wtptwrteyq77[address] [place], [place] [address]Dr.Yilan ChangHematocrit (Bld) [Volume fraction]42.4 %Hmtlso93.0-54.0The [facility] HospitalComment on above:Performed By: #### CBC ####[facility] Yjvezdgghc9774[address] [place], [place] [address]Dr.Yilan ChangHemoglobin (Bld) [Mass/Vol]14.5 g/dL Lxjccc15.0-18.0The [facility] HospitalComment on above:Performed By: #### CBC ####[facility] Iszspjcqlc[address] [place], [place] [address]Dr. Yilan ChangIG #0.07 10e3/ulCritically high0.00-0.03The [facility] HospitalComment on above:Performed By: #### CBC ####[facility] Hfavqfmsot1666[address] [place], [place] [address]Dr.Yilan ChangIG %0.4 %Normal0.0-0.5The [facility] HospitalComment on above:Performed By: #### CBC ####[facility] Giydbitddu[address] [place] [address]Dr.Abhinav LagunaLYMPH #2.3 103/ulNormal1.2-3.8The [facility] HospitalComment on above:Performed By: #### CBC ####[facility] Intsjbtesu4[address] [place] [address]Dr. Abhinav LagunaLymphocytes/100 WBC (Bld)13.2 %Critically low20.5-60.0The [facility] HospitalComment on above:Performed By: #### CBC ####[facility] Pfctlzdfha[address] [place] [address]Dr.Abhinav LagunaMANUAL DIFF REQ NONormalThe [facility] HospitalComment on above:Performed By: #### CBC ####[facility] Tbliciejsx[address] [place], [place] [address]Dr. Abhinav LagunaMCH (RBC) [Entitic mass]31.0 foUvzzji01.9-34.0The [facility] Comment on above:Performed By: #### CBC ####[facility] Mhonouyish[address] [place], [place] [address]Dr.Abhinav LagunaMCHC (RBC) [Mass/Vol]34.2 g/dL Wyhcmm23.9-35.2The [facility] HospitalComment on above:Performed By: #### CBC ####[facility] Xdwlcppomg[address] [place], [place] [address]Dr. Abhinav LagunaMCV (RBC) [Entitic vol]90.6 gBYpgudi56.0-94.0The [facility] Comment on above:Performed By: #### CBC ####[facility] Kwuyrmcekr[address] [place], [place] [address]Dr.Abhinav LagunaMONO #1.3 103/ulCritically high0.3-0.8The [facility] HospitalComment on above:Performed By: #### CBC ####[facility] Kpsjxtdgub[address] [place], [place] [address]Dr. Abhinav ChangMonocytes/100 WBC (Bld)7.5 %Normal1.7-12.0[facility] Comment on above:Performed By: #### CBC ####[facility] [address] [place] [address]Dr.Abhinav LagunaNEUT #13.3 103/ulCritically high1.4-6.5The [facility] HospitalComment on above:Performed By: #### CBC ####[facility] [address] [place] [address]Dr. Abhinav JaseNeutrophils/100 WBC (Bld)77.9 %Critically high43.0-75.0The [facility] HospitalComment on above:Performed By: #### CBC ####[facility] [address] [place] [address]Dr.Abhinav LagunaPlatelet mean volume (Bld) [Entitic vol]9.7 fLNormal9.5-13.5The [facility] HospitalComment on above:Performed By: #### CBC ####[facility] [address] [place] [address]Dr.Mirandagallo LagunaKutbvKKN888 103/ulCritically avfn206-676Mxp [facility] HospitalComment on above:Performed By: #### CBC ####[facility] [address] [place], [place] [address]Dr.Abhinav LagunaRBC4.68 106/ul Critically low4.70-6.10The [facility] HospitalComment on above:Performed By: #### CBC ####[facility] [address] [place], [place] [address]Dr. Mirandagallo LagunaUnlbzKEG18.1 103/ulCritically high4.0-11.0The Grant HospitalComment on above:Performed By: #### CBC ####[facility] Xygsgykbfb[address] [place], [place] [address]DrEfrain LagunaNORTHEAST [facility] GLUCOSEon 11-27-2022 Glucose [Mass/Vol]470 mg/dLCritically iicd38-428Joh Grant HospitalComment on above:Performed By: #### POCGLUC ####[facility] Dnpjonappe[address] [place], [place] [address]Dr. Abhinav LagunaPROF CHEM 8 (BAS METB)on 11-27-2022 Anion gap [Moles/Vol]7.5 mmol/LNormalThe Grant HospitalComment on above: Performed By: #### YULI, CMADM ####[facility] [address] [place] [address]Dr. Yilan ChangCalcium [Mass/Vol]10.8 mg/dLCritically high8.5-10.1The [facility] HospitalComment on above:Performed By: #### YULI, CMADM ####[facility] Bltiaqrlfl0[address] [place], [place] [address]Dr. Yilan ChangChloride [Moles/Vol]102 mmol/ZPvfkqj64-861Azp [facility] Comment on above:Performed By: #### YULI, CMADM ####[facility] Ourrrofjax52[address] [place], [place] [address]Dr. Yilan ChangCO2 [Moles/Vol]31.2 mmol/TOsxnjt62.0-32.0The Grant HospitalComment on above: Performed By: #### YULI, CMADM ####[facility] Mcorvtqexe23[address] [place], [place] [address]Dr. Yilan ChangCreatinine [Mass/Vol]0.86 mg/dLNormal 0.70-1.30The [facility] HospitalComment on above:Performed By: #### YULI, CMADM ####[facility] Calkajwbuu5[address] [place], [place] [address]Dr. Yilan ChangEGFR-AF COLOMBIAN>60Normal>=60The [facility] HospitalComment on above: Performed By: #### YULI, CMADM ####[facility] Blbkmfkwrw22[address] [place], [place] [address]Dr. Yilan ChangEGFR-NON AF COLOMBIAN>60Normal>=60The [facility] HospitalComment on above:Performed By: #### YULI, CMADM ####[facility] Xnjxsbhugq33[address] [place], [place] [address]Dr. Yilan Laguna Glucose [Mass/Vol]513 mg/dLCritically huni35-033Bov [facility] HospitalComment on above:Performed By: #### YULI, CMADM ####[facility] Tmwtyrtwko[address] [place] [address]Dr. Yilan ChangPotassium [Moles/Vol]4.7 mmol/L Normal3.5-5.1The [facility] HospitalComduane l. waters hospital on above:Performed By: #### BMP, CMADM ####[facility] Hibfdgfeea[address] [place] [address]Dr. Yilan ChangSodium [Moles/Vol]136 mmol/OVwogen627-940Oaz [facility] HospitalComduane l[facility] on above:Performed By: #### BMP, CMADM ####[facility] Yptyhdsfzv69[address] [place], [place] [address]Dr. Yilan ChangUrea nitrogen [Mass/Vol]30.0 mg/dLCritically high7.0-18.0The [facility] HospitalComduane l[facility] on above:Performed By: #### BMP, CMADM ####[facility] Losbsbeatw[address] [place], [place] [address]Dr. Yilan ChangUrea nitrogen/Creatinine [Mass ratio]34.9 mg/mgNormal The Grant HospitalComment on above:Performed By: #### BMP, CMADM ####[facility] Umxdwjadlp3047[address] [place], [place] [address]Dr. Yilan ChangXR CHEST 2 Von [id number] CHEST 2 VNormalThe [facility] AUTO DIFFon 47-93-6708EERH #0.0 103/ulNormal0.0-0.1The [facility] on above: Performed By: #### CBC ####[facility] Ksnbcbupmx0189[address] [place], [place] [address]Dr.Yilan ChangBasophils/100 WBC (Bld)0.2 %Normal 0.2-2.0The [facility] HospitalComduane l. [facility] hospital on above:Performed By: #### CBC ####[facility] Nevgfxmfrq426[address] [place], [place] [address]Dr.Yilan ChangEO # 0.0 103/ulNormal0.0-0.7The [facility] HospitalComduane l. waters hospital on above:Performed By: #### CBC ####[facility] Sqhfhigrtb7[address] [place] [address]Dr. Yilan ChangEosinophils/100 WBC (Bld)0.0 %Critically low0.9-7.0The Grant HospitalComment on above:Performed By: #### CBC ####[facility] Artxbsrbvq4582[address] [place], [place] [address]Dr.Mirandalan ChangErythrocyte distribution width (RBC) [Ratio]13.0 %Fsflbp88.0-15.0[facility] Comment on above:Performed By: #### CBC ####[facility] Oprzptgbmg745[address] [place], [place] [address]Dr.Yilan ChangHematocrit (Bld) [Volume fraction]39.9 %Critically low42.0-54.0The Grant HospitalComment on above: Performed By: #### CBC ####[facility] Vdnnmvskpn99[address] [place], [place] [address]Dr.Abhinav ChangHemoglobin (Bld) [Mass/Vol]14.0 g/dL Kbbemf99.0-18.0The [facility] HospitalComment on above:Performed By: #### CBC ####[facility] Xwkaszsdob4273[address] [place], [place] [address]Dr. Yilan ChangIG #0.08 10e3/ulCritically high0.00-0.03The [facility] HospitalComment on above:Performed By: #### CBC ####[facility] Tjjjyjckca7[address] [place], [place] [address]Dr.Yilan ChangIG %0.4 %Normal0.0-0.5The [facility] HospitalComment on above:Performed By: #### CBC ####[facility] Bdhvkkrtau3145[address] [place], [place] [address]Dr.Yilan ChangLYMPH #2.3 103/ulNormal1.2-3.8The [facility] HospitalComment on above:Performed By: #### CBC ####[facility] Dcqetypkvs9073[address] [place], [place] [address]Dr. Yilan ChangLymphocytes/100 WBC (Bld)12.2 %Critically low20.5-60.0The [facility] HospitalComment on above:Performed By: #### CBC ####[facility] Kmmuelyisp[address] [place] [address]Dr.Abhinav LagunaMANUAL DIFF REQ NONormalThe Grant HospitalComment on above:Performed By: #### CBC ####[facility] Nsibbrwjeg6[address] [place] [address]Dr. Abhinav LagunaH (RBC) [Entitic mass]31.4 oyZgtcle45.9-34.0[facility] Comment on above:Performed By: #### CBC ####[facility] Qkznognmch48[address] [place] [address]Dr.Abhinav LagunaHC (RBC) [Mass/Vol]35.1 g/dL Fwiwna54.9-35.2The [facility] HospitalComment on above:Performed By: #### CBC ####[facility] Okwbwlpvag9[address] [place], [place] [address]Dr. Mirandagallo LagunaV (RBC) [Entitic vol]89.5 aVTbpyoy15.0-94.0[facility] Comment on above:Performed By: #### CBC ####[facility] Mejvgyuzch5343[address] [place], [place] [address]Dr.Abhinav KamaljitO #1.2 103/ulCritically high0.3-0.8The [facility] HospitalComment on above:Performed By: #### CBC ####[facility] Bjqqanmkgj2159[address] [place], [place] [address]Dr. Mirandagallo LagunaMonocytes/100 WBC (Bld)6.2 %Normal1.7-12.0[facility] Comment on above:Performed By: #### CBC ####[facility] Mypealnmgh[address] [place], [place] [address]Dr.Mirandagallo LagunaNEUT #15.1 103/ulCritically high1.4-6.5The [facility] HospitalComment on above:Performed By: #### CBC ####[facility] Hssypgcrgu2425[address] [place], [place] [address]Dr. Mirandagallo LagunaNeutrophils/100 WBC (Bld)81.0 %Critically high43.0-75.0The [facility] HospitalComment on above:Performed By: #### CBC ####[facility] Oqyqemwtmq3479[address] [place], [place] [address]Dr.Abhinav JasePlatelet mean volume (Bld) [Entitic vol]9.5 fLNormal9.5-13.5The [facility] HospitalComment on above:Performed By: #### CBC ####[facility] Mrlorlbkju7636[address] [place], [place] [address]Dr.Abhinav LagunaPLT514 103/ulCritically mmrh778-261Uss [facility] HospitalComment on above:Performed By: #### CBC ####[facility] Dlrmvyzyrm0467[address] [place], [place] [address]Dr.Abhinav LagunaRBC4.46 106/ul Critically low4.70-6.10The [facility] HospitalComment on above:Performed By: #### CBC ####[facility] Qqofovqxnc37101[address] [place], [place] [address]Dr. Abhinav LagunaWBC18.7 103/ulCritically high4.0-11.0The [facility] HospitalComment on above:Performed By: #### CBC ####[facility] Hszfvjbuuf7094[address] [place], [place] [address]Dr.Abhinav LagunaPROF CHEM 8 (BAS METB)on 04-60-1590Cwuvq gap [Moles/Vol]10.9 mmol/LNormalThe [facility] HospitalComment on above:Performed By: #### BMP ####[facility] Iypkbjxfmx0074[address] [place], [place] [address]Dr.Abhinav LagunaCalcium [Mass/Vol]10.6 mg/dLCritically high8.5-10.1The [facility] HospitalComment on above:Performed By: #### BMP ####[facility] Jiakwfblhe7657[address] [place], [place] [address]Dr.Abhinav ChangChloride [Moles/Vol]103 mmol/GUkfgav05-083Daa [facility] HospitalComment on above:Performed By: #### BMP ####[facility] Ntjhgguzwc1696[address] [place], [place] [address]Dr.Abhinav ChangCO2 [Moles/Vol]28.8 mmol/RZhmepp23.0-32.0The [facility] HospitalComment on above:Performed By: #### BMP ####[facility] Wdmpuezrde5398[address] [place], [place] [address]Dr.Abhinav ChangCreatinine [Mass/Vol]0.90 mg/dLNormal0.70-1.30The [facility] HospitalComment on above: Performed By: #### BMP ####[facility] Xsyydcoqsg312[address] [place], [place] [address]Dr.Mirandalan ChangEGFR-AF COLOMBIAN>60Normal>=60The [facility] HospitalComment on above:Performed By: #### BMP ####[facility] Rutawhxctw9249[address] [place], [place] [address]Dr.Mirandalan ChangEGFR-NON AF COLOMBIAN>60Normal>=60The [facility] HospitalComment on above:Performed By: #### BMP ####[facility] Tgunuhbwcq6266[address] [place], [place] [address]Dr. Abhinav ChangGlucose [Mass/Vol]296 mg/dLCritically sqzk75-441Qdu [facility] Comment on above:Performed By: #### BMP ####[facility] Lxoikqshau7404[address] [place], [place] [address]Dr.Mirandagallo ChangPotassium [Moles/Vol]4.7 mmol/LNormal3.5-5.1The [facility] HospitalComment on above:Performed By: #### BMP ####[facility] Bpncxlhehc0922[address] [place], [place] [address]Dr. Mirandalan ChangSodium [Moles/Vol]138 mmol/CLektib451-935Sac [facility] HospitalComment on above:Performed By: #### BMP ####[facility] Rgsurilrdn3672[address] [place], [place] [address]Dr.Mirandalan ChangUrea nitrogen [Mass/Vol]32.0 mg/dL Critically high7.0-18.0The [facility] HospitalComment on above:Performed By: #### BMP ####[facility] Vebzxpzxta0786[address] [place], [place] [address]Dr. Yilan ChangUrea nitrogen/Creatinine [Mass ratio]35.6 mg/mgOhioHealthComment on above:Performed By: #### BMP ####[facility] Enduhzmwze669[address] [place], [place] [address]Dr.Abhinav RamonOOD GASES BTY on MODENASAL CANNULAOhioHealthComment on above: Performed By: #### ABG ####[facility] Tiemmhlrhf5082[address] [place], [place] [address]Dr.Abhinav LagunaALLENS TESTPositiveOhioHealthComment on above:Performed By: #### ABG ####[facility] Mbammlinmw477[address] [place], [place] [address]Dr.Abhinav LagunaBase excess Calc (Bld) [Moles/Vol]4.5 mmol/LCritically high-2.0-2.0[facility] Comment on above:Performed By: #### ABG ####[facility] Wzbhhamhec3025[address] [place], [place] [address]Dr.Abhinav LagunaBIPAP PRESSUREOhioHealthComment on above:Performed By: #### ABG ####[facility] Sjenfrfmbx828[address] [place], [place] [address]Dr.Abhinav LagunaCPAPOhioHealthComment on above:Performed By: #### ABG ####[facility] Ukqkecnxzt2942[address] [place], [place] [address]Dr.Abhinav UvtgbQDL9SulckqNvrOhioHealthComment on above:Performed By: #### ABG ####[facility] Mgrewivful3066[address] [place], [place] [address]Dr.Abhinav LagunaHCO3 (Bld) [Moles/Vol]28.7 mmol/LCritically high22.0-26.0The [facility] HospitalComment on above:Performed By: #### ABG ####[facility] Rpygfncqtd3685[address] [place], [place] [address]Dr.Abhinav RxjfiBLQ2YyopyrOgd [facility] HospitalComment on above:Performed By: #### ABG ####[facility] Zhtbccoqzu9959[address] [place], [place] [address]Dr.Abhinav LagunaMercy Hospital Comment on above:Performed By: #### ABG ####[facility] Qdlkcxalnh034[address] [place], [place] [address]Dr.Abhinav ChangOxygen (Bld) [Partial pressure]82.3 mm[Hg]Wjaxps57.0-100.0The [facility] HospitalComment on above: Performed By: #### ABG ####[facility] Fkktzbzcyz3292[address] [place], [place] [address]Dr.Mirandagallo JaseOxygen saturation in Blood97.3 %Normal 95.0-100.0The [facility] HospitalComment on above:Performed By: #### ABG ####[facility] Sgjtsejxop262[address] [place], [place] [address]Dr. Abhinav KsjlnBJW117.1 spYaNffcmc19.0-45.0The [facility] HospitalComment on above: Performed By: #### ABG ####[facility] Uirytktfmn824[address] [place], [place] [address]Dr.Abhinav JasePEThe Christ HospitalComment on above:Performed By: #### ABG ####[facility] Zykkobcogy2865[address] [place], [place] [address]Dr.Abhinav ChangpH (Bld)7.432 [pH]Normal7.350-7.450The [facility] HospitalComment on above:Performed By: #### ABG ####[facility] Ukridraylh315[address] [place], [place] [address]Dr.Mirandagallo ChangPIPNormalMercy Memorial HospitalComment on above:Performed By: #### ABG ####[facility] Aufcyeenun9[address] [place], [place] [address]Dr.[facility] HospitalComduane l. waters hospital on above:Performed By: #### ABG ####[facility] Dnszslcyjy7153[address] [place], [place] [address]Dr.Mirandalan ChangPUNCTURE SITERR NormalMercy Memorial HospitalComment on above:Performed By: #### ABG ####[facility] Loanawkogd07[address] [place] [address]Dr.Mirandalan ChangRATE NormalThe [facility] on above:Performed By: #### ABG ####[facility] Gywysqadbf193[address] [place], [place] [address]Dr.Abhinav ChangVENT MODENoLicking Memorial HospitalComduane l. waters hospital on above:Performed By: #### ABG ####[facility] Bcnwwqeeqm4052[address] [place], [place] [address]Dr. Abhinav ChangCleveland Clinic [facility] on above:Performed By: #### ABG ####[facility] Kxewhrihjz3468[address] [place], [place] [address]Dr. Abhinav ChangBNPon 13-43-9894Ujqwgxtpgmr peptide B (Bld) [Mass/Vol]279.0 pg/mL Normal<=900.0The [facility] on above:Performed By: #### HSTROPN, BNP, BMP ####[facility] Wjexnkxdnb017[address] [place], [place] [address]Dr. Abhinav LagunaCBC AUTO DIFFon 23-34-7588MLAQ #0.1 103/ulNormal0.0-0.1[facility] on above:Performed By: #### CBC ####[facility] Vfmbqoaimf1307[address] [place], [place] [address]Dr.Mirandalan ChangBasophils/100 WBC (Bld)0.3 %Normal0.2-2.0The [facility] on above:Performed By: #### CBC ####[facility] Lobojurlye5109[address] [place], [place] [address]Dr.Yilan ChangEO #0.1 103/ulNormal0.0-0.7The [facility] on above:Performed By: #### CBC ####[facility] Qymugonuzh884[address] [place], [place] [address]Dr.Mirandalan ChangEosinophils/100 WBC (Bld)0.3 %Critically low0.9-7.0The [facility] on above:Performed By: #### CBC ####[facility] Dxmhnnneqe7844[address] [place], [place] [address]Dr. Abhinav ChangErythrocyte distribution width (RBC) [Ratio]12.9 %Kmoqvm33.0-15.0The [facility] HospitalComment on above:Performed By: #### CBC ####[facility] Ynpdgqammt7188[address] [place], [place] [address]Dr.Abhinav ChangHematocrit (Bld) [Volume fraction]39.1 %Critically low42.0-54.0The [facility] HospitalComment on above:Performed By: #### CBC ####[facility] Zxcrohixbg2782[address] [place], [place] [address]Dr.Abhinav ChangHemoglobin (Bld) [Mass/Vol]14.0 g/dL Aignsk57.0-18.0The [facility] HospitalComment on above:Performed By: #### CBC ####[facility] Tmsdemsjnb2358[address] [place], [place] [address]Dr. Abhinav ChangIG #0.12 10e3/ulCritically high0.00-0.03The [facility] HospitalComment on above:Performed By: #### CBC ####[facility] Iglnhjyxqf6048[address] [place], [place] [address]Dr.Abhinav ChangIG %0.5 %Normal0.0-0.5The [facility] HospitalComment on above:Performed By: #### CBC ####[facility] Xpmjursrlo119[address] [place], [place] [address]Dr.Abhinav ChangLYMPH #2.2 103/ulNormal1.2-3.8The [facility] HospitalComment on above:Performed By: #### CBC ####[facility] Dktptbyxou3656[address] [place], [place] [address]Dr. Abhinav LagunaLymphocytes/100 WBC (Bld)9.5 %Critically low20.5-60.0The [facility] HospitalComment on above:Performed By: #### CBC ####[facility] Szgzmdyqbq2176[address] [place], [place] [address]Dr.Abhinav LagunaMANUAL DIFF REQ NONormalThe Nelly HospitalComment on above:Performed By: #### CBC ####[facility] Cxtpijwzvw55[address] [place] [address]Dr. Abhinav LagunaGENEVA [facility] (RBC) [Entitic mass]31.5 qrClwuni24.9-34.0[facility] Comment on above:Performed By: #### CBC ####[facility] Vhybgagniz9449[address] [place], [place] [address]Dr.Mirandagallo LagunaUPSTATE UNIVERS[facility] (RBC) [Mass/Vol]35.8 g/dL Critically high29.9-35.2The [facility] HospitalComment on above:Performed By: #### CBC ####[facility] Hshlrxmztf736[address] [place], [place] [address]Dr.Abhinav LagunaV (RBC) [Entitic vol]87.9 dOXsiwrv33.0-94.0The [facility] HospitalComment on above:Performed By: #### CBC ####[facility] Cculiihnft040[address] [place], [place] [address]DrEfrain MariO #1.3 103/ulCritically high0.3-0.8The [facility] HospitalComment on above:Performed By: #### CBC ####[facility] Unpfwnosrm2898[address] [place], [place] [address]DrEfrain LagunaMonocytes/100 WBC (Bld)5.6 %Normal1.7-12.0The [facility] HospitalComment on above:Performed By: #### CBC ####[facility] Pryzoonczv4639[address] [place], [place] [address]DrEfrain LandUT #19.6 103/ulCritically high1.4-6.5The [facility] HospitalComment on above:Performed By: #### CBC ####[facility] Hzmjrjcgph2918[address] [place], [place] [address]DrEfrain LagunaNeutrophils/100 WBC (Bld)83.8 %Critically high43.0-75.0The [facility] HospitalComment on above:Performed By: #### CBC ####[facility] Ayjcgpswyb1637[address] [place], [place] [address]Dr.Yilan ChangPlatelet mean volume (Bld) [Entitic vol]10.1 fLNormal9.5-13.5The [facility] HospitalComment on above:Performed By: #### CBC ####[facility] Khxfdgygxz45[address] [place] [address]Dr.Abhinav LagunaPLT467 103/ulCritically atjs174-957Svm [facility] HospitalComment on above:Performed By: #### CBC ####[facility] Rvioofbsjo40[address] [place] [address]Dr.Abhinav ChangRBC4.45 106/ul Critically low4.70-6.10The [facility] HospitalComment on above:Performed By: #### CBC ####[facility] Ngjydeyjfl0085[address] [place], [place] [address]Dr. bAhinav LagunaWBC23.4 103/ulCritically high4.0-11.0The [facility] HospitalComment on above:Performed By: #### CBC ####[facility] Kzcbiacwfq7098[address] [place], [place] [address]Dr.Abhinav ChangCULTURE BLOODon 78-70-1717Hkkiongpklg examination of blood, cultureCulture Observations: NO GROWTH AT 5 DAYS.NormalThe [facility] HospitalComment on above:Performed By: #### BLDCX2 ####[facility] Vydsnpawzk7938[address] [place], [place] [address]Dr. Abhinav ChangMicroscopic examination of blood, cultureCulture Observations: NO GROWTH AT 5 DAYS.NormalThe [facility] HospitalComment on above:Performed By: #### BLDCX1 ####[facility] Qtsefdzwwp6596[address] [place], [place] [address]Dr. Abhinav LagunaCovid-19 PCR (CVDTB)on 95-56-7423WTSK-CoV-2 (COVID-19) RNA EVERT+probe Ql (Unsp spec)Not detectedNormalNOT DETECTEDThe [facility] Comment on above:Result Comment: When diagnostic [...] for this test is supported by the Line Tender of Health and Human Service's declaration that [...] no longer be used).Performed By: #### CVDTBH ####[facility] Crrmohayco[address] [place], [place] [address]Dr. Abhinav LagunaDRUG SCREEN RAPID (URINE)on 19-24-4151XIMXmowklntJwjlyzCCSQPANEXxh [facility] HospitalComment on above:Performed By: #### DRUGRPD ####[facility] Tsejklgtns[address] [place], [place] [address]Dr. Abhinav LagunaBARPositiveAbnormalNEGATIVECleveland Clinic South [facility]inte Hospital HospitalComment on above:Performed By: #### DRUGRPD ####[facility] Ltrnowdlqz3194[address] [place], [place] [address]Dr. Abhinav LagunaBUP NegativeNormalNEGATIVECleveland Clinic [facility]inte [facility] HospitalComment on above:Performed By: #### DRUGRPD ####[facility] Kqkwqwthql815[address] [place], [place] [address]Dr. Abhinav LagunaBZONegativeNormalNEGATIVECleveland Clinic [facility] HospitalComment on above:Performed By: #### DRUGRPD ####[facility] Pgjbzmmpbt112[address] [place], [place] [address]Dr. Abhinav LagunaCOCNegativeNormalNEGATIVECleveland Clinic [facility] HospitalComment on above:Performed By: #### DRUGRPD ####[facility] Dnvgobczvd[address] [place], [place] [address]Dr. Abhinav LagunaCUT-OFFSSEE BELOWNormalThe [facility] HospitalComment on above:Result Comment: AMP (Amphetamine): 500ng/mL, BAR (Barbituates): 200 ng/mL, BZO (Benzodiazepines): 15 0 ng/mL, BUP (Buprenorphine): 10 ng/mL, ISELA (Cocaine): 150 ng/mL, mAMP (Methamphetamine): 500 ng/mL, MTD (Methadone): 200 ng/mL, OPI (Opiates): 100 ng/mL, OXY (Oxycodone): 100 ng/mL, PCP (Phencyclidine): 25 ng/mL, PPX (Propoxyphene): 300 ng/mL, THC (Cannabinoids): 50 ng/mL, TCA (Trycyclic Antidepressants): 300 ng/mLPerformed By: #### DRUGRPD ####[facility] Frhuvpmnah22[address] [place], [place] [address]Dr. Abhinav LagunaDRUG CUT HEADERDRUG CLASS TEST SYSTEM CUT-OFF CONCENTRATIONS ARE FOLLOWS:NormalThe [facility] HospitalComment on above:Performed By: #### DRUGRPD ####[facility] Mncehbkutw6[address] [place], [place] [address]Dr. Abhinav LagunamAMP NegativeNormalNEGATIVECleveland Clinic [facility]inte [facility] HospitalComment on above:Performed By: #### DRUGRPD ####[facility] Pbdueijdiv4137[address] [place], [place] [address]Dr. Abhinav LagunaMTDNegativeNormalNEGATIVECleveland Clinic [facility] HospitalComment on above:Performed By: #### DRUGRPD ####[facility] Zisnqnkvnk0734[address] [place], [place] [address]Dr. Abhinav LagunaOPINegativeNormalNEGATIVECleveland Clinic [facility] HospitalComment on above:Performed By: #### DRUGRPD ####[facility] Hmznjjfixf4836[address] [place], [place] [address]Dr. Abhinva LagunaOXYNegative NormalNEGATIVECleveland Clinic South [facility]inte [facility] HospitalComment on above:Performed By: #### DRUGRPD ####[facility] Bqvqftomyy7175[address] [place], [place] [address]Dr. Abhinav LagunaPCPNegativeNormalNEGATIVECleveland Clinic [facility] HospitalComment on above: Performed By: #### DRUGRPD ####[facility] Rjtntddlgc[address] [place], [place] [address]Dr. Abhinav ChangPPXNegativeNormalNEGATIVEMercy Memorial HospitalComment on above:Performed By: #### DRUGRPD ####[facility] Iobarcsjnf535[address] [place], [place] [address]Dr. Yilan ChangTCANegative NormalNEGATIVEMercy Memorial HospitalComment on above:Performed By: #### DRUGRPD ####[facility] Vetertejve3313[address] [place], [place] [address]Dr. iMrandalan ChangTHCPositiveAbnormalNEGATIVEMercy Memorial HospitalComment on above: Performed By: #### DRUGRPD ####[facility] Slzogblzgz[address] [place], [place] [address]Dr. Mirandalan ChangETHANOL (BLD ALC)on 52-05-9079EWX NOTE NOTE: 80 mg/dl is the legal limit for a blood alcohol levelNoLicking Memorial HospitalComment on above:Performed By: #### ETH ####[facility] Uapopjuvxm[address] [place], [place] [address]Dr.Mirandalan ChangEthanol [Mass/Vol]mg/dLNoLicking Memorial HospitalComment on above:Performed By: #### ETH ####[facility] Akzxxthiwa11[address] [place], [place] [address]Dr. Abhinav ChangLACTATE/LACTIC ACIDon 07-77-0153Ofdeghf [Moles/Vol]1.5 mmol/LNormal 0.4-2.0Mer[facility] Memorial HospitalComment on above:Performed By: #### LACT ####[facility] Sedfauuqzf53[address] [place], [place] [address]Dr. Abhinav ChangPOINT OF CARE GLUCOSEon 39-05-9002Ehjncpn [Mass/Vol]457 mg/dL Critically zgrf22-106PhnMercy Memorial HospitalComment on above:Performed By: #### POCGLUC ####[facility] Fudpdvhfeo[address] [place], [place] [address]Dr. Mirandalan ChangPROF CHEM 8 (BAS METB)on 25-59-8918Swbtt gap [Moles/Vol]11.9 mmol/LNormalMercy Memorial HospitalComment on above:Performed By: #### HSTROPN, BNP, BMP ####[facility] [address]mskfo[address] [place] [address]Dr. Yilan ChangCalcium [Mass/Vol]10.2 mg/dLCritically high8.5-10.1The [facility] HospitalComment on above:Performed By: #### HSTROPN, BNP, BMP ####[facility] Dririsemyj[address] [place] [address]Dr. Yilan ChangChloride [Moles/Vol]96 mmol/LCritically xge12-529Xdx [facility] HospitalComment on above:Performed By: #### HSTROPN, BNP, BMP ####[facility] [address] [place] [address]Dr. Yilan ChangCO2 [Moles/Vol]28.7 mmol/NVngfsy56.0-32.0The [facility] HospitalComment on above: Performed By: #### HSTROPN, BNP, BMP ####[facility] [id number] [place], [place] [address]Dr. Yilan ChangCreatinine [Mass/Vol]0.83 mg/dL Normal0.70-1.30The [facility] HospitalComment on above:Performed By: #### HSTROPN, BNP, BMP ####[facility] [address]kf[address] [place] [address]Dr. Yilan ChangEGFR-AF COLOMBIAN>60Normal>=60The Grant HospitalComment on above:Performed By: #### HSTROPN, BNP, BMP ####[facility] [address] [place] [address]Dr. Yilan ChangEGFR-NON AF COLOMBIAN>60Normal >=60The [facility] HospitalComment on above:Performed By: #### HSTROPN, BNP, BMP ####[facility] Aywejsawkh[address] [place] [address]Dr. Yilan ChangGlucose [Mass/Vol]470 mg/dLCritically ipmb25-944Krq [facility] Comment on above:Performed By: #### HSTROPN, BNP, BMP ####[facility] Yllwefjnxq[address] [place] [address]Dr. Abhinav LagunaPotassium [Moles/Vol]4.6 mmol/LNormal3.5-5.1The [facility] HospitalComment on above: Performed By: #### HSTROPN, BNP, BMP ####[facility] H[address]vxrlqb[address] [place] [address]Dr. Abhinav ChangSodium [Moles/Vol]132 mmol/L Critically jgc142-085Tun Grant HospitalComment on above:Performed By: #### HSTROPN, BNP, BMP ####[facility] [address]ksdiu[address] [place] [address]Dr. Abhinav ChangUrea nitrogen [Mass/Vol]18.0 mg/dLNormal7.0-18.0[facility] HospitalComment on above:Performed By: #### HSTROPN, BNP, BMP ####[facility] Eudcceidbg[address] [place], [place] [address]Dr. Abhinav ChangUrea nitrogen/Creatinine [Mass ratio]21.7 mg/mgNormalThe Grant HospitalComment on above:Performed By: #### HSTROPN, BNP, BMP ####[facility] F[address]riuil[address] [place] [address]Dr. Abhinav Laguna TROPONIN, HIGH SENSITIVITYon 48-07-8982UKCCFS89.1 pg/mLNormal4.0-76.1[facility] on above:Result Comment: CUT-OFF POINTS HAVE BEEN ESTABLISHED BASED ON THE FOURTH UNIVERSAL DEFINITIONS OF MYOCARDIALINFARCTION. THE UPPER REFERENCE LIMIT (URL) OF TROPONIN, DEFINED THE 99TH PERCENTILE OFcT nI DISTRIBUTION IN A REFERENCE POPULATION, HAS BEEN CONFIRMED THE DECISION THRESHOLDFOR MD DIAGNOSIS.Performed By: #### HSTROPN, BNP, BMP ####[facility] S[address]xqfctx[address] [place] [address]Dr. Abhinav ChangXR CHEST 1 Von 79-98-3258LU CHEST 1 VNormalMercy Memorial HospitalACETONE SERUMon 68-07-8639LAAUMYJDpuhphqzWbilzqIPPVQZBZEfc Grant HospitalComment on above: Performed By: #### ACETON ####[facility] [address]qp[address] [place] [address]Dr. Abhinav LagunaAMMONIAon 54-68-1111Vbvpotc (P) [Moles/Vol]13 umol/PAnxuld05-75Ase [facility] HospitalComment on above:Performed By: #### AMM ####[facility] Ddojyjectk[address] [place], [place] [address]Dr.Abhinav LagunaCBC AUTO DIFFon 02-90-9008DKIU #0.1 103/ulNormal0.0-0.1The [facility] HospitalComment on above:Performed By: #### CBC ####[facility] Zskyglaabl6[address] [place], [place] [address]Dr.Mirandagallo JaseBasophils/100 WBC (Bld)0.7 %Normal0.2-2.0The [facility] HospitalComment on above:Performed By: #### CBC ####[facility] Busmyjustl4[address] [place], [place] [address]Dr.Mirandalan ChangEO #0.2 103/ulNormal0.0-0.7The [facility] HospitalComment on above:Performed By: #### CBC ####[facility] Pmvssornno[address] [place], [place] [address]Dr.Abhinav ChangEosinophils/100 WBC (Bld)2.1 %Normal 0.9-7.0The [facility] HospitalComment on above:Performed By: #### CBC ####[facility] Sjcllwlhbz86[address] [place], [place] [address]Dr.Abhinav Laguna Erythrocyte distribution width (RBC) [Ratio]12.0 %Lwbmcb75.0-15.0The [facility] HospitalComment on above:Performed By: #### CBC ####[facility] Byjcndsnqj[address] [place], [place] [address]Dr.Mirandagallo JaseHematocrit (Bld) [Volume fraction]47.3 %Gimpwc67.0-54.0The [facility] HospitalComment on above:Performed By: #### CBC ####[facility] Oxcmptwysu4[address] [place], [place] [address]Dr.Abhinav LagunaHemoglobin (Bld) [Mass/Vol]17.2 g/dL Iekcxz82.0-18.0The [facility] HospitalComment on above:Performed By: #### CBC ####[facility] Ohbgyreamg[address] [place] [address]Dr. Abhinav ChangIG #0.02 10e3/ulNormal0.00-0.03The [facility] HospitalComment on above: Performed By: #### CBC ####[facility] L[address]mrb[address]rmk[address] [place] [address]Dr.Abhinav ChangIG %0.2 %Normal0.0-0.5The [facility] HospitalComment on above:Performed By: #### CBC ####[facility] Ommcuiyiax9[address] [place], [place] [address]Dr.Abhinav ChangLYMPH #2.4 103/ulNormal1.2-3.8The [facility] HospitalComment on above:Performed By: #### CBC ####[facility] Dcdczwzxqd[address] [place], [place] [address]Dr. Abhinav LagunaLymphocytes/100 WBC (Bld)23.3 %Ulgszf09.5-60.0[facility] Comment on above:Performed By: #### CBC ####[facility] Tweqtkphgm[address] [place], [place] [address]Dr.Abhinav LagunaMANUAL DIFF REQNONormalThe Grant HospitalComment on above:Performed By: #### CBC ####[facility] Iugecojiew[address] [place], [place] [address]Dr.Abhinav LagunaGENEV[facility] (RBC) [Entitic mass]31.0 rlOpuoqg38.9-34.0The [facility] HospitalComment on above: Performed By: #### CBC ####[facility] Frbdyqaubd8593[address] [place], [place] [address]Dr.Abhinav LagunaUPSTATE UN[facility] (RBC) [Mass/Vol]36.4 g/dLCritically high29.9-35.2The [facility] HospitalComment on above:Performed By: #### CBC ####[facility] L[address]my[address]chlau[address] [place] [address]Dr. Abhinav LagunaMCV (RBC) [Entitic vol]85.4 kOSacyuj22.0-94.0[facility] Comment on above:Performed By: #### CBC ####[facility] Ekiswrecjf9[address] [place], [place] [address]Dr.Abhinav LagunaMONO #0.6 103/ulNormal0.3-0.8 The [facility] HospitalComment on above:Performed By: #### CBC ####[facility] Fkvwpalftl[address] [place], [place] [address]Dr.Abhinav Laguna Monocytes/100 WBC (Bld)6.0 %Normal1.7-12.0The [facility] HospitalComment on above: Performed By: #### CBC ####[facility] Dcqkofmxzs29[address] [place], [place] [address]Dr.Abhinav LagunaNEUT #6.9 103/ulCritically high1.4-6.5 The [facility] HospitalComment on above:Performed By: #### CBC ####[facility] Ugkmvaexnx8226[address] [place], [place] [address]Dr.Abhinav Laguna Neutrophils/100 WBC (Bld)67.7 %Gpcahe87.0-75.0The [facility] HospitalComment on above:Performed By: #### CBC ####[facility] Ryxwarjjoq9963[address] [place], [place] [address]Dr.Abhinav JasePlatelet mean volume (Bld) [Entitic vol] 10.4 fLNormal9.5-13.5The [facility] HospitalComment on above:Performed By: #### CBC ####[facility] Qpgrdhlqob72[address] [place], [place] [address]Dr. Abhinav NivvnLAW920 103/lyXajpet812-409Fmk [facility] HospitalComment on above: Performed By: #### CBC ####[facility] Cekdunwhay1642[address] [place], [place] [address]Dr.Abhinav JaseRBC5.54 106/ulNormal4.70-6.10The [facility] HospitalComment on above:Performed By: #### CBC ####[facility] Dta[address]azfzaq[address] [place] [address]Dr.Abhinav LagunaWBC10.3 103/ul Normal4.0-11.0The [facility] Hospitalment on above:Performed By: #### CBC ####[facility] Umgdwrqrcl[address] [place] [phone]. Abhinav LagunaCT STROKE HEAD WOon 32-88-3756BL STROKE HEAD WONormalThe [facility] HospitalCovid-19 PCR (CVDTBH)on 01-29-1601TRPN-CoV-2 (COVID-19) RNA EVERT+probe Ql (Unsp spec)Not detectedNormalNOT DETECTEDThe [facility] on above: Result Comment: When [...] for this test is supported by the [place] of Health and Human Service's declaration that [...] no longer be used).Performed By: #### CVDTBH ####[facility] Rfrcrirlqe[address] [place] [phone]. Mirandagallo LagunaDRUG SCREEN RAPID (URINE)on 19-19-2527BMWRtumtxddXpbpsr NEGATIVEFirelands Regional Medical Center [facility] on above:Performed By: #### YASMINE DRUGRPD ####[facility] Ckzpzdzqnd[address] [place] [phone]. Mirandagallo LagunaBARNegativeNormalNEGATIVEThe Grant HospitalComment on above: Performed By: #### ERUDale DRUGRPD ####[facility] Uddgwhgxip44[address] [place], [place] [address]Dr. Abhinav ChangBUPNegativeNormalNEGATIVEMercy Memorial HospitalComment on above:Performed By: #### YASMINE DRUGRPD ####[facility] Ydeadbbuaa[address] [place], [place] [address]Dr. Abhinav ChangBZONegative NormalNEGATIVEMercy Memorial HospitalComment on above:Performed By: #### YASMINE DRUGRPD ####[facility] Khyobyurrh62[address] [place], [place] [address]Dr. Abhinav ChangCOCNegativeNormalNEGATIVEMercy Memorial HospitalComment on above:Performed By: #### YASMINE DRUGRPD ####[facility] Ttispeggrp90[address] [place], [place] [address]Dr. Abhinav LagunaCUT-OFFSE City HospitalComment on above:Result Comment: AMP (Amphetamine): 500ng/mL, BAR (Barbituates): 200 ng/mL, BZO (Benzodiazepines): 150 ng/mL, BUP (Buprenorphine): 10 ng/mL, ISELA (Cocaine): 150 ng/mL, mAMP (Methamphetamine): 500 ng/mL, MTD (Methadone): 200 ng/mL, OPI (Opiates): 100 ng/mL, OXY (Oxycodone): 100 ng/mL, PCP (Phencyclidine): 25 ng/mL, PPX (Propoxyphene): 300 ng/mL, THC (Cannabinoids): 50 ng/mL, TCA (Trycyclic Antidepressants): 300 ng/mLPerformed By: #### YASMINE DRUGRPD ####[facility] Ljflhuofwc[address] [place], [place] [address]Dr. Abhinav LagunaDRUG CUT HEADERDRUG CLASS TEST SYSTEM CUT-OFF CONCENTRATIONS ARE FOLLOWS:NormalMercy Memorial HospitalComment on above:Performed By: #### YASMINE DRUGRPD ####[facility] Dxnqcbapqk109[address] [place], [place] [address]Dr. Abhinav LagunamAMPPositiveAbnormalNEGATIVEMercy Memorial HospitalComment on above:Performed By: #### YASMINE DRUGRPD ####[facility] Bqhluvxhia[address] [place] [address]Dr. Yilan ChangMTD NegativeNormalNEGATIVECleveland Clinic South Pointe Hospital HospitalComment on above:Performed By: #### ERUR, DRUGRPD ####[facility] Ettxpieldb[address] [place], [place] [address]Dr. Yilan ChangOPINegativeNormalNEGATIVECleveland Clinic South [facility]inte Hospital HospitalComment on above:Performed By: #### ERUR, DRUGRPD ####[facility] Gmtecaimwe646[address] [place], [place] [address]Dr. Yilan ChangOXYNegativeNormalNEGATIVECleveland Clinic South [facility]inte Hospital HospitalComment on above:Performed By: #### ERUR, DRUGRPD ####[facility] Pljhkqrwhd13[address] [place], [place] [address]Dr. Yilan ChangPCP NegativeNormalNEGATIVECleveland Clinic South [facility]inte Hospital HospitalComment on above:Performed By: #### ERUR, DRUGRPD ####[facility] Tufiryyfnh30[address] [place], [place] [address]Dr. Yilan ChangPPXNegativeNormalNEGATIVECleveland Clinic South [facility]inte Hospital HospitalComment on above:Performed By: #### ERUR, DRUGRPD ####[facility] Rmggieuhoj27[address] [place], [place] [address]Dr. Yilan ChangTCANegativeNormalNEGATIVECleveland Clinic South [facility]inte Hospital HospitalComment on above:Performed By: #### ERUR, DRUGRPD ####[facility] Hkqmyijstl[address] [place], [place] [address]Dr. Yilan ChangTHC PositiveAbnormalNEGATIVECleveland Clinic South Pointe Hospital HospitalComment on above:Performed By: #### ERUR, DRUGRPD ####[facility] Jbfqqbgmbu6108[address] [place], [place] [address]Dr. Yilan ChangER URINE PROFILEon 60-10-0182Mkxabnheg Ql (U)Negative NormalNEGATIVECleveland Clinic South Pointe Hospital HospitalComment on above:Performed By: #### ERUR, DRUGRPD ####[facility] Jeufdqwrid[address] StreetBellevue, [place] [address]Em. Yilan ChangClarity (U)CLEARNormalCLEARCleveland Clinic South Pointe Hospital HospitalComment on above:Performed By: #### ERUR, DRUGRPD ####[facility] Tqhuskqjjb4[address] [place], [place] [address]Dr. Yilan ChangColor (U)LT. YELLOWNormalYELLOWMercy Memorial HospitalComment on above:Performed By: #### CATALINAR, DRUGRPD ####[facility] Semrasqexf3[address] [place], [place] [address]Dr. Abhinav Laguna ERUAHDA micrscopic examination will be performed if indicated.NormalThe Grant HospitalComment on above:Performed By: #### CATALINAR DRUGRPD ####[facility] Ttduwndtig3[address] [place], [place] [address]Dr. Mirandalan ChangGlucose Ql (U) >1000AbnormalNEGATIVEMercy Memorial HospitalComment on above:Performed By: #### CATALINAR DRUGRPD ####[facility] Egmuhluzxs9185[address] [place], [place] [address]Dr. Yilan ChangHemoglobin Ql (U)NegativeNormalNEGATIVEMercy Memorial HospitalComment on above:Performed By: #### CATALINAR, DRUGRPD ####[facility] Wblcsnicpb5298[address] [place], [place] [address]Dr. Yilan ChangKetones Ql (U) NegativeNormalNEGATIVEMercy Memorial HospitalComment on above:Performed By: #### CATALINAR DRUGRPD ####[facility] Qfkssvxkal7976[address] [place], [place] [address]Dr. Yilan ChangLEUKOCYTESNegativeNormalNEGHolzer Health System Comment on above:Performed By: #### ERUR, DRUGRPD ####[facility] Rcjmkvrnan4443[address] [place], [place] [address]Dr. Yilan ChangNitrite Ql (U) NegativeNormalNEGATIVEMercy Memorial HospitalComment on above:Performed By: #### ERUR, DRUGRPD ####[facility] Ajytdfdzki[address] [place], [place] [address]Dr. Yilan ChangpH (U)6.0 [pH]Normal5-9The [facility]elly HospitalComment on above:Performed By: #### YASMINE DRUGRPD ####[facility] Svreuccmey99[address] [place], [place] [address]Dr. Abhinav LagunaSPEC GRAVITY<=1.005Abnormal 1.005-<=1.025The [facility] HospitalComment on above:Performed By: #### YASMINE DRUGRPD ####[facility] Hzhvokazak9[address] [place], [place] [address]Dr. Yilan ChangUA PROTEINNegativeNormalNEGATIVE/ TRACEMercy Memorial Hospital Comment on above:Performed By: #### YASMINE DRUGRAQUELD ####[facility] Nljabhsszl[address] [place], [place] [address]Dr. Mirandalan JaseUR MICRO IND NOT INDICATEDNormalThMercy Health Lorain HospitalComment on above:Performed By: #### YASMINE DRUGRAQUELD ####[facility] Uoapkapnon[address] [place], [place] [address]Dr. Yigallo ChangUrobilinogen Qn (U)0.2 {Marshall'U}/dLNormal0.2 - 1.0Mer[facility] Memorial HospitalComment on above:Performed By: #### YASMINE DRUGRAQUELD ####[facility] Ebqanhkurv[address] [place], [place] [address]Dr. Abhinav Laguna POINT OF CARE GLUCOSEon 64-84-6164Prkxcea [Mass/Vol]162 mg/dLCritically high 74-106Mer[facility] Memorial HospitalComment on above:Performed By: #### POCGLUC ####[facility] Gutrxdcxbj4726[address] [place], [place] [address]Dr. Abhinav ChangGlucose [Mass/Vol]303 mg/dLCritically ozje22-032LizMercy Memorial Hospital Comment on above:Performed By: #### POCGLUC ####[facility] Uqngvkvfti[address] [place], [place] [address]Dr. Mirandalan ChangGlucose [Mass/Vol]404 mg/dL Critically dlyl20-415IxhMercy Memorial HospitalComment on above:Performed By: #### POCGLUC ####[facility] Rlusgfqkhs7[address] [place], [place] [address]Dr. Yilan ChangPROF 14(COMP METB)on 92-61-2940Jsqtlmt [Mass/Vol]3.3 g/dL Critically low3.4-5.0The [facility] HospitalComment on above:Performed By: #### CMP ####[facility] Dmzccpytsf6873[address] [place], [place] [address]Dr. Yilan ChangAlbumin/Globulin [Mass ratio]0.8 {ratio}NormalThe [facility] Comment on above:Performed By: #### CMP ####[facility] Ckgzfvgfsj086[address] [place], [place] [address]Dr.Yilan ChangALP [Catalytic activity/Vol] 290 U/LCritically gqfe25-684Bwm [facility] HospitalComment on above:Performed By: #### CMP ####[facility] Cennysmljw999[address] [place], [place] [address]Dr.Yilan ChangALT [Catalytic activity/Vol]36 U/XCramkw53-74Hpb [facility] HospitalComment on above:Performed By: #### CMP ####[facility] Nqqixlexxy9919[address] [place], [place] [address]Dr.Yilan ChangAnion gap [Moles/Vol]9.1 mmol/LNormalThe [facility] HospitalComment on above:Performed By: #### CMP ####[facility] Qlowsupgjj8[address] [place], [place] [address]Dr.Yilan ChangAST [Catalytic activity/Vol]16 U/FExpcyp46-10Ine [facility] HospitalComment on above:Performed By: #### CMP ####[facility] Azjjdmlpgg8029[address] [place], [place] [address]Dr.Yilan ChangBilirubin [Mass/Vol]0.5 mg/dLNormal0.2-1.0The [facility] HospitalComment on above:Performed By: #### CMP ####[facility] Meebvtcjrp6918[address] [place], [place] [address]Dr.Yilan ChangCalcium [Mass/Vol]10.2 mg/dLCritically high8.5-10.1The [facility] HospitalComment on above:Performed By: #### CMP ####[facility] Ursyrlzlcw5[address] [place] [phone].Yilan ChangChloride [Moles/Vol]94 mmol/LCritically ezx11-875Liq [facility] HospitalComment on above: Performed By: #### CMP ####[facility] Rhohyzzfxq9[address] [place] [address]Dr.Yilan ChangCO2 [Moles/Vol]29.3 mmol/LNormal 21.0-32.0The [facility] HospitalComment on above:Performed By: #### CMP ####[facility] Swgdtacmuk7638[address] [place], [place] [address]Dr. Yilan ChangCreatinine [Mass/Vol]0.91 mg/dLNormal0.70-1.30[facility] Comment on above:Performed By: #### CMP ####[facility] Wyduuauitw30[address] [place], [place] [address]Dr.Yilan ChangEGFR-AF COLOMBIAN>60Normal>=60 The [facility] HospitalComment on above:Performed By: #### CMP ####[facility] Hgjufddmbg5582[address] [place], [place] [address]Dr.Yilan ChangEGFR- NON AF COLOMBIAN>60Normal>=60The [facility] HospitalComment on above:Performed By: #### CMP ####[facility] Issablplrx6819[address] [place], [place] [address]Dr.Yilan ChangGlobulin (S) [Mass/Vol]4.3 g/dLNormalThMercy Health Lorain Hospital Comment on above:Performed By: #### CMP ####[facility] Kvngnkthmi6007[address] [place], [place] [address]Dr.Yilan ChangGlucose [Mass/Vol]562 mg/dL Critically thxm50-437Jjv [facility] HospitalComment on above:Performed By: #### CMP ####[facility] Kddycniybi429[address] [place], [place] [address]Dr. Yilan ChangPotassium [Moles/Vol]4.4 mmol/LNormal3.5-5.1[facility] Comment on above:Performed By: #### CMP ####[facility] Dakfiuespq[address] [place] [address]Dr.Yilan ChangProtein [Mass/Vol]7.6 g/dL Normal6.4-8.2The [facility] HospitalComment on above:Performed By: #### CMP ####[facility] Tpvgxpwpyy[address] [place], [place] [address]Dr. Yilan ChangSodium [Moles/Vol]128 mmol/LCritically bme008-139Bxa [facility] HospitalComment on above:Performed By: #### CMP ####[facility] Eueaurkvcc446[address] [place], [place] [address]Dr.Yilan ChangUrea nitrogen [Mass/Vol]21.0 mg/dLCritically high7.0-18.0The [facility] HospitalComment on above:Performed By: #### CMP ####[facility] Mztucpxvic87[address] [place], [place] [address]Dr.Yilan ChangUrea nitrogen/Creatinine [Mass ratio] 23.1 mg/mgNormalThe [facility] HospitalComment on above:Performed By: #### CMP ####[facility] Ysenffgbcm264[address] [place], [place] [address]Dr. Yilan ChangXR CHEST 1 Von 49-69-8168TS CHEST 1 VNormalThe [facility] ACETAMINOPHENon 39-72-9340Jlgtuikxrdieb [Mass/Vol]ug/mLCritically low10.0-30.0 The [facility] HospitalComment on above:Performed By: #### TSH, CMP, SALYC, HSTROPN, ETH, ACET ####[facility] Caxbsdeleo52[address] [place], [place] [address]Dr. Yilan ChangACETONE SERUMon 57-76-0065TIQXATB NegativeNormalNEGATIVEThe [facility] HospitalComment on above:Performed By: #### ACETON ####[facility] Cltqemezbr12[address] [place], [place] [address]Dr. Yilan ChangAMMONIAon 01-35-1317Fhnmvjk (P) [Moles/Vol]21 umol/LNormal 11-32The [facility] HospitalComment on above:Performed By: #### AMM ####[facility] Dddhngiuhz30[address] [place] [address]Dr.Abhinav LagunaCBC AUTO DIFFon 18-99-3894DKPE #0.1 103/ulNormal0.0-0.1The [facility] Hospitalment on above:Performed By: #### CBC ####[facility] Pvejctzwco15[address] [place], [place] [address]Dr.Abhinav ChangBasophils/100 WBC (Bld)0.5 %Normal 0.2-2.0The [facility] HospitalComment on above:Performed By: #### CBC ####[facility] Jymsobfudy7197[address] [place], [place] [address]Dr.Mirandalan ChangEO # 0.3 103/ulNormal0.0-0.7The [facility] HospitalComment on above:Performed By: #### CBC ####[facility] Yylowpgpox74[address] [place], [place] [address]Dr. Abhinav ChangEosinophils/100 WBC (Bld)3.1 %Normal0.9-7.0[facility] Comment on above:Performed By: #### CBC ####[facility] Ltixfehpgn4126[address] [place], [place] [address]Dr.Abhinav ChangErythrocyte distribution width (RBC) [Ratio]12.6 %Wpgecx43.0-15.0The [facility] Hospitalment on above: Performed By: #### CBC ####[facility] Eotdfjrxkv5617[address] [place], [place] [address]Dr.Abhinav ChangHematocrit (Bld) [Volume fraction]42.9 % Gbufwj94.0-54.0The [facility] HospitalComment on above:Performed By: #### CBC ####[facility] Wnrnvacpdz35[address] [place], [place] [address]Dr. Abhinav ChangHemoglobin (Bld) [Mass/Vol]15.9 g/eJJboelk75.0-18.0The [facility] HospitalComment on above:Performed By: #### CBC ####[facility] Sjsfmrttgn7[address] [place], [place] [address]Dr.Abhinav ChangIG #0.05 10e3/ulCritically high0.00-0.03The [facility] HospitalComment on above:Performed By: #### CBC ####[facility] Pprwxdmsiw7742[address] [place], [place] [address]DrNohemiAbhinav LagunaIG %0.5 %Normal0.0-0.5The [facility] HospitalComment on above: Performed By: #### CBC ####[facility] Ngfsplulok34[address] [place], [place] [address]Dr.Mirandagallo JaseLYMPH #2.3 103/ulNormal1.2-3.8The [facility] HospitalComment on above:Performed By: #### CBC ####[facility] Ohjibbeyly3814[address] [place], [place] [address]Dr.Mirandagallo JaseLoramphocytes/100 WBC (Bld)23.1 %Ldpawn97.5-60.0The [facility] HospitalComment on above:Performed By: #### CBC ####[facility] Zenrrluyte6[address] [place], [place] [address]Dr.Abhinav LagunaMANUAL DIFF REQNONormalThe [facility] HospitalComment on above:Performed By: #### CBC ####[facility] Hxlckmmonl197[address] [place], [place] [address]Dr.Abhinav LagunaGENEVA [facility] (RBC) [Entitic mass]31.3 pgNormal 25.9-34.0The [facility] HospitalComment on above:Performed By: #### CBC ####[facility] Zasqrtiztm60[address] [place], [place] [address]Dr. Abhinav LagunaHC (RBC) [Mass/Vol]37.1 g/dLCritically high29.9-35.2The [facility] HospitalComment on above:Performed By: #### CBC ####[facility] Cajuxpsihd40[address] [place], [place] [address]Dr.Abhinav LagunaV (RBC) [Entitic vol]84.4 jWIjoifw58.0-94.0The [facility] HospitalComment on above: Performed By: #### CBC ####[facility] Nuqxsslzcw47[address] [place], [place] [address]Dr.Abhinav LagunaMONO #0.8 103/ulNormal0.3-0.8The [facility] HospitalComment on above:Performed By: #### CBC ####[facility] Lpezkvoroa70[address] [place], [place] [address]Dr.Mirandalan ChangMonocytes/100 WBC (Bld)7.8 %Normal1.7-12.0The [facility] HospitalComment on above:Performed By: #### CBC ####[facility] Kiuybzgwdx216[address] [place], [place] [address]Dr.Abhinav ChangNEUT #6.4 103/ulNormal1.4-6.5The [facility] HospitalComment on above:Performed By: #### CBC ####[facility] Ngtvswvtlz40[address] [place], [place] [address]Dr.Abhinav ChangNeutrophils/100 WBC (Bld)65.0 %Normal 43.0-75.0The [facility] HospitalComment on above:Performed By: #### CBC ####[facility] Ckijptvpzc22[address] [place], [place] [address]Dr. Abhinav ChangPlatelet mean volume (Bld) [Entitic vol]11.2 fLNormal9.5-13.5The [facility] HospitalComment on above:Performed By: #### CBC ####[facility] Svzpvqsrfn8[address] [place], [place] [address]Dr.Abhinav BmhswAMO438 103/ul Imkpeu333-554Byt [facility] HospitalComment on above:Performed By: #### CBC ####[facility] Jxjeagyrys[address] [place], [place] [address]Dr. Abhinav ChangRBC5.08 106/ulNormal4.70-6.10The [facility] HospitalComment on above: Performed By: #### CBC ####[facility] Ncolgtcqot59[address] [place], [place] [address]Dr.Mirandalan ChangWBC9.9 103/ulNormal4.0-11.0The [facility] HospitalComment on above:Performed By: #### CBC ####[facility] Hoqklijszi78[address] [place], [place] [address]Dr.Abhinav LagunaCT STROKE HEAD WOon 87-87-3979SE STROKE HEAD WONormalThe [facility] HospitalCULTURE BLOODon 28-83-0846Lrczvpifsty examination of blood, cultureCulture Observations: NO GROWTH AT 5 DAYS.NormalCleveland Clinic South Pointe Hospital HospitalComment on above:Performed By: #### BLDCX2 ####[facility] [address]yp[address] [place] [id number]. Abhinav LagunaMicroscopic examination of blood, cultureCulture Observations: NO GROWTH AT 5 DAYS.NormalCleveland Clinic South Pointe Hospital HospitalComment on above:Performed By: #### BLDCX1 ####[facility] [address] [id number]. Abhinav LagunaCovid-19 PCR (CVDTBH)on [id number]-CoV-2 (COVID-19) RNA EVERT+probe Ql (Unsp spec)Not detectedNormalNOT DETECTEDMercy Memorial Hospital Comment on above:Result Comment: When diagnostic [...] for this test is supported by the Line Tender of [employer] and Human Service's declaration that [...] no longer be used).Performed By: #### CVDTBH ####[facility] [address] [place] [id number]. Abhinav LagnuaDRUG SCREEN RAPID (URINE)on 40-73-7529REXXqkgewquAsxybtyeMLQYJEEJLfa [facility] Comment on above:Performed By: #### DRUGRPMarco Antonio ERUR ####[facility] Syijimjukv[address] [place], [place] [address]Dr. Yilan ChangBARNegative NormalNEGATIVEMercy Memorial HospitalComment on above:Performed By: #### DRUGRPD, ERUR ####[facility] Kgolsdtmwy17[address] [place], [place] [address]Dr. Yilan ChangBUPNegativeNormalNEGATIVEMercy Memorial HospitalComment on above:Performed By: #### DRUGRPD, ERUR ####[facility] Exztwcbhud[address] [place], [place] [address]Dr. Yilan ChangBZONegativeNormalNEGATIVEMercy Memorial HospitalComment on above:Performed By: #### DRUGRPD, ERUR ####[facility] Fvgtjidihe[address] [place], [place] [address]Dr. Yilan ChangCOC PositiveAbnormalNEGATIVEMercy Memorial HospitalComment on above:Performed By: #### DRUGRPD, ERUR ####[facility] Mnkkuzinze[address] [place], [place] [address]Dr. Mirandalan ChangCUT-OFFSSEE City HospitalComment on above:Result Comment: AMP (Amphetamine): 500ng/mL, BAR (Barbituates): 200 ng/mL, BZO (Benzodiazepines): 150 ng/mL, BUP (Buprenorphine): 10 ng/mL, ISELA (Cocaine): 150 ng/mL, mAMP (Methamphetamine): 500 ng/mL, MTD (Methadone): 200 ng/mL, OPI (Opiates): 100 ng/mL, OXY (Oxycodone): 100 ng/mL, PCP (Phencyclidine): 25 ng/mL, PPX (Propoxyphene): 300 ng/mL, THC (Cannabinoids): 50 ng/mL, TCA (Trycyclic Antidepressants): 300 ng/mLPerformed By: #### DRUGRPD, ERUR ####[facility] Rebknkccck[address] [place], [place] [address]Dr. Abhinav LagunaDRUG CUT HEADERDRUG CLASS TEST SYSTEM CUT-OFF CONCENTRATIONS ARE FOLLOWS:NormalThe Grant HospitalComment on above:Performed By: #### DRUGRPD, ERUR ####[facility] [address] [place] [address]Dr. Yilan ChangmAMP PositiveAbnormalNEGATIVECleveland Clinic South Pointe Hospital HospitalComment on above:Performed By: #### DRUGRPD, ERUR ####[facility] S[address]fmvpxt[address] [place] [address]Dr. Yilan ChangMTDNegativeNormalNEGATIVECleveland Clinic [facility]inte Hospital HospitalComment on above:Performed By: #### DRUGRPD, ERUR ####[facility] Hzgdzfwein[address] [place], [place] [address]Dr. Yilan ChangOPINegativeNormalNEGATIVECleveland Clinic [facility] HospitalComment on above:Performed By: #### DRUGRPD, ERUR ####[facility] Wxfxhksekm97[address] [place], [place] [address]Dr. Yilan ChangOXY NegativeNormalNEGATIVECleveland Clinic [facility] HospitalComment on above:Performed By: #### DRUGRPD, ERUR ####[facility] Hpdvnlksvl84[address] [place], [place] [address]Dr. Yilan ChangPCPNegativeNormalNEGATIVECleveland Clinic [facility] HospitalComment on above:Performed By: #### DRUGRPD, ERUR ####[facility] Xjqbnxesrp275[address] [place], [place] [address]Dr. Yilan ChangPPXNegativeNormalNEGATIVECleveland Clinic [facility] HospitalComment on above:Performed By: #### DRUGRPD, ERUR ####[facility] Oeyttehkou[address] [place], [place] [address]Dr. Yilan ChangTCA NegativeNormalNEGATIVECleveland Clinic [facility] HospitalComment on above:Performed By: #### DRUGRPD, ERUR ####[facility] Cgrxialuiq28[address] [place], [place] [address]Dr. Yilan ChangTHCPositiveAbnormalNEGATIVECleveland Clinic [facility] HospitalComment on above:Performed By: #### DRUGRPD, ERUR ####[facility] Muayzywmsv[address] [place], [place] [address]Dr. Yilan ChangER URINE PROFILEon 10-23-2022 Bilirubin Ql (U)NegativeNormalNEGATIVEMercy Memorial HospitalComment on above: Performed By: #### DRUGRPD, ERUR ####[facility] Jrcazirjwm3[address] [place], [place] [address]Dr. Yilan ChangClarity (U)CLEARNormalCLEARMercy Memorial HospitalComment on above:Performed By: #### DRUGRPD, ERUR ####[facility] Dpmmyewwmz260[address] [place], [place] [address]Dr. Yilan ChangColor (U)LT. YELLOWNormalYELLOWMercy Memorial HospitalComment on above:Performed By: #### DRUGRPD, ERUR ####[facility] Qkayjibhaq25[address] [place], [place] [address]Dr. Yilan ChangERUAHDA micrscopic examination will be performed if indicated.NormalMercy Memorial HospitalComment on above:Performed By: #### DRUGRPD, ERUR ####[facility] Dajanjikde[address] [place], [place] [address]Dr. Yilan ChangGlucose Ql (U)>1000AbnormalNEGATIVEMercy Memorial HospitalComment on above:Performed By: #### DRUGRPD, ERUR ####[facility] Mbkvlrinih8318[address] [place], [place] [address]Dr. Yilan ChangHemoglobin Ql (U)NegativeNormalNEGATIVEMercy Memorial HospitalComment on above:Performed By: #### DRUGRPD, ERUR ####[facility] Wedqxuklcy7947[address] [place], [place] [address]Dr. Yilan ChangKetones Ql (U)NegativeNormalNEGATIVECleveland Clinic [facility] HospitalComment on above:Performed By: #### DRUGRPD, ERUR ####[facility] Rvszdmixup8[address] [place], [place] [address]Dr. Yilan Laguna LEUKOCYTESNegativeNormalNEGATIVECleveland Clinic South [facility] HospitalComment on above:Performed By: #### DRUGRPD, ERUR ####[facility] Nptvuisxvo37[address] [place], [place] [address]Dr. Yilan ChangNitrite Ql (U)NegativeNormalNEGATIVEThe [facility] Paul HospitalComment on above:Performed By: #### DRUGKARISSA, ERUR ####[facility] Pmddrlnyui[address] [place], [place] [address]Dr. Yigallo ChangpH (U)6.5 [pH]Normal5-9The [facility] HospitalComment on above:Performed By: #### DRUGKARISSA, ERUR ####[facility] Mhwobxfuab67[address] [place], [place] [address]Dr. Yigallo LagunaSPEC GRAVITY<=1.380Zalxiztv2.005-<=1.025The [facility] HospitalComment on above:Performed By: #### DRUGKARISSA, ERUR ####[facility] Fjfovmfsbh266[address] [place], [place] [address]Dr. Yilan ChangUA PROTEIN NegativeNormalNEGATIVE/ TRACEThe [facility] HospitalComment on above:Performed By: #### DRUGKARISSA, ERUR ####[facility] Ttfatbssra23[address] [place], [place] [address]Dr. Yilan ChangUR MICRO INDNOT INDICATEDNoLicking Memorial HospitalComment on above:Performed By: #### DRUGKARISSA, ERUR ####[facility] Hhpushqavd874[address] [place], [place] [address]Dr. Mirandagallo Laguna Urobilinogen Qn (U)0.2 {Marshall'U}/dLNormal0.2 - 1.0The [facility] HospitalComment on above:Performed By: #### DRUGKARISSA, ERUR ####[facility] Niseqvhihq68[address] [place], [place] [address]Dr. Yilan ChangETHANOL (BLD ALC)on 60-85-9346HZK NOTENOTE: 80 mg/dl is the legal limit for a blood alcohol level NormalThe [facility] HospitalComment on above:Performed By: #### TSH, CMP, SALYC, HSTROPN, ETH, ACET ####[facility] Wdzbgowqbr[address] [place], [place] [address]Dr. Yilan ChangEthanol [Mass/Vol]mg/dLUC Medical Center HospitalComment on above:Performed By: #### TSH, CMP, SALYC, HSTROPN, ETH, ACET ####[facility] [address]npaxam[address] [place] [address]Dr. Abhinav LagunaLACTATE/LACTIC ACIDon 80-06-8336Lpziqnu [Moles/Vol]2.8 mmol/LCritically high0.4-2.0The [facility] HospitalComment on above:Performed By: #### LACT ####[facility] Bfsdglesrp[address] [place], [place] [address]Dr. Abhinav LagunaPOINT OF CARE GLUCOSEon 73-38-2311PVQEDLI>600Critically high 74-106The [facility] HospitalComment on above:Result Comment: Result Not Confirmed Performed By: #### POCGLUC ####[facility] Amqrtlzyri[address] [place] [address]Dr. Abhinav LagunaPROF 14(COMP METB)on 68-34-0048Hipngrd [Mass/Vol]3.3 g/dLCritically low3.4-5.0The [facility] HospitalComment on above: Performed By: #### TSH, CMP, SALYC, HSTROPN, ETH, ACET ####[facility] Byirhbqkwt23[address] [place] [address]Dr. Abhinav Laguna Albumin/Globulin [Mass ratio]0.8 {ratio}NormalThe [facility] on above:Performed By: #### TSH, CMP, SALYC, HSTROPN, ETH, ACET ####[facility] Gqgznbojmz[address] [place] [address]Dr. Abhinav LagunaALP [Catalytic activity/Vol]529 U/LCritically nwss79-355Njd [facility] HospitalComment on above:Performed By: #### TSH, CMP, SALYC, HSTROPN, ETH, ACET ####[facility] Pjdlmtpcsn[address] [place] [address]Dr. Abhinav LagunaALT [Catalytic activity/Vol]35 U/QIloruz86-56Ufa [facility] HospitalComment on above: Performed By: #### TSH, CMP, SALYC, HSTROPN, ETH, ACET ####[facility] Suqrbtjuha[address] [place] [address]Dr. Yilan ChangAnion gap [Moles/Vol]5.9 mmol/LNormalThe [facility] Hospitalment on above:Performed By: #### TSH, CMP, SALYC, HSTROPN, ETH, ACET ####[facility] Tdlgdlcmig[address] [place] [address]Dr. Yilan ChangAST [Catalytic activity/Vol] 12 U/LCritically src47-80Yfa [facility] HospitalComment on above:Performed By: #### TSH, CMP, SALYC, HSTROPN, ETH, ACET ####[facility] V[address]xutmnzb[address] [place] [address]Dr. Yilan ChangBilirubin [Mass/Vol]0.3 mg/dL Normal0.2-1.0The [facility] HospitalComment on above:Performed By: #### TSH, CMP, SALYC, HSTROPN, ETH, ACET ####[facility] Nycgyelhng[address] [place] [address]Dr. Yilan ChangCalcium [Mass/Vol]10.6 mg/dLCritically high8.5-10.1The [facility] on above:Performed By: #### TSH, CMP, SALYC, HSTROPN, ETH, ACET ####[facility] Dnpsqnoxku[address] [place] [address]Dr. Yilan ChangChloride [Moles/Vol]93 mmol/LCritically vhi90-077Gjn [facility] HospitalComduane l. waters hospital on above:Performed By: #### TSH, CMP, SALYC, HSTROPN, ETH, ACET ####[facility] Idqnorqfrt[address] [place] [address]Dr. Yilan ChangCO2 [Moles/Vol]31.5 mmol/LNormal 21.0-32.0The [facility] on above:Performed By: #### TSH, CMP, SALYC, HSTROPN, ETH, ACET ####[facility] Tpingllmwy[address] [place] [address]Dr. Yilan ChangCreatinine [Mass/Vol]1.03 mg/dLNormal 0.70-1.30The [facility] Hospitalment on above:Performed By: #### TSH, CMP, SALYC, HSTROPN, ETH, ACET ####[facility] Flxoutudfd[address] [place] [address]Dr. Yilan ChangEGFR-AF COLOMBIAN>60Normal>=60The [facility] HospitalComment on above:Performed By: #### TSH, CMP, SALYC, HSTROPN, ETH, ACET ####[facility] T[address]ct[address]jz[address] [place] [address]Dr. Yilan ChangEGFR-NON AF COLOMBIAN>60Normal>=60The [facility] Comment on above:Performed By: #### TSH, CMP, SALYC, HSTROPN, ETH, ACET ####[facility] Pwylgcfciq[address] [place] [address]Dr. Abhinav ChangGlobulin (S) [Mass/Vol]3.9 g/dLNormalThe [facility] HospitalComduane l. waters hospital on above:Performed By: #### TSH, CMP, SALYC, HSTROPN, ETH, ACET ####[facility] Burtdfgaxn[address] [place] [address]Dr. Abhinav Laguna Glucose [Mass/Vol]738 mg/dLCritically txre88-554Ocf [facility] on above:Performed By: #### TSH, CMP, SALYC, HSTROPN, ETH, ACET ####[facility] Raysiylszb[address] [place] [address]Dr. Abhinav Laguna Potassium [Moles/Vol]4.4 mmol/LNormal3.5-5.1The [facility] HospitalComment on above:Performed By: #### TSH, CMP, SALYC, HSTROPN, ETH, ACET ####[facility] Yfrzcirpiq[address] [place] [address]Dr. Abhinav Laguna Protein [Mass/Vol]7.2 g/dLNormal6.4-8.2The [facility] Hospitalment on above: Performed By: #### TSH, CMP, SALYC, HSTROPN, ETH, ACET ####[facility] Nplematczc[address] [place], [place] [address]Dr. Abhinav LagunaSodium [Moles/Vol]126 mmol/LCritically jff508-636Iqo [facility] on above: Performed By: #### TSH, CMP, SALYC, HSTROPN, ETH, ACET ####[facility] Nnlcqyesmh[address] [place] [address]Dr. Abhinav ChangUrea nitrogen [Mass/Vol]21.0 mg/dLCritically high7.0-18.0The [facility] HospitalComment on above:Performed By: #### TSH, CMP, SALYC, HSTROPN, ETH, ACET ####[facility] Vvtharthjh[address] [place] [address]Dr. Abhinav ChangUrea nitrogen/Creatinine [Mass ratio]20.4 mg/mgNoSelect Medical Specialty Hospital - [facility], [facility] on above:Performed By: #### TSH, CMP, SALYC, HSTROPN, ETH, ACET ####[facility] Rtiuvbqueq[address] [place] [address]Dr. Abhinav Laguna PROTIMEon 23-62-4215DZZ Coag (PPP) [Relative time]0.95 {INR}NormalThe [facility] on above:Performed By: #### PT, PTT ####[facility] Rktbnefnpi[address] [place] [address]Dr. Abhinav JaseINR GUIDELINES SEE BELOWBluffton Hospital on above:Result Comment: DESIRED INR: 2.0 - 3.0 CONDITIONS NOT LISTED BELOW 2.5 - 3.5 FOR PROSTHETIC HEART VALVE REPLACEMENT 2.5 - 3.5 RECURRENT THROMBOSISPerformed By: #### PT, PTT ####[facility] Psenvlwdub[address] [place] [address]Dr. Abhinav JasePT Coag (PPP) [Time]10.1 sNormal9.0-11.6The [facility] on above:Performed By: #### PT, PTT ####[facility] Nuvngftfmd[address] [place] [address]Dr. Mirandagallo LagunaPTTon 46-95-3776gDKB Coag (Bld) [Time]27.7 sQtpkdd54.3-36.2The [facility] Hospitalment on above:Performed By: #### PT, PTT ####[facility] Nclqxojmls65[address] [place] [address]Dr. Abhinav LagunaSALICYLATEon 82-43-7461ALARFNEVXN<2.8Normal<=19.9The [facility] HospitalComment on above:Performed By: #### TSH, CMP, SALYC, HSTROPN, ETH, ACET ####[facility] Mkuddaifyb[address] [place] [address]Dr. Abhinav LagunaTROPONIN, HIGH SENSITIVITYon 40-51-1021ENQQAX1.9 pg/mLNormal 4.0-76.1The [facility] on above:Result Comment: CUT-OFF POINTS HAVE BEEN ESTABLISHED BASED ON THE FOURTH UNIVERSAL DEFINITIONS OF MY OCARDIALINFARCTION. THE UPPER REFERENCE LIMIT (URL) OF TROPONIN, DEFINED THE 99TH PERCENTILE OFcTnI DISTRIBUTION IN A REFERENCE POPULATION, HAS BEEN CONFIRMED THE DECISION THRESHOLDFOR MD DIAGNOSIS.Performed By: #### TSH, CMP, SALYC, HSTROPN, ETH, ACET ####[facility] Gahshgqvrw[address] [place] [address]Dr. Abhinav LagunaTSHon 09-17-7138ROM7.612 uIU/mLNormal 0.358-3.740The [facility] Hospitalment on above:Performed By: #### TSH, CMP, SALYC, HSTROPN, ETH, ACET ####[facility] Ytfbeyumuy47[address] [place] [address]Dr. Abhinav LagunaXR CHEST 1 Von 49-02-5166NI CHEST 1 V NormalThe [facility] AUTO DIFFon 78-13-4324KMJW #0.0 103/ulNormal 0.0-0.1The [facility] Hospitalment on above:Performed By: #### CBC ####[facility] Bwpnprudqi[address] [place] [address]Dr.Abhinav Laguna Basophils/100 WBC (Bld)0.4 %Normal0.2-2.0The [facility] Hospitalment on above: Performed By: #### CBC ####[facility] Srqkgfnunc6[address] [place] [address]Dr.Yilan ChangEO #0.2 103/ulNormal0.0-0.7The [facility] HospitalComment on above:Performed By: #### CBC ####[facility] Nouqkgaazu[address] [place], [place] [address]Dr.Yilan ChangEosinophils/100 WBC (Bld)2.8 %Normal0.9-7.0The [facility] HospitalComment on above:Performed By: #### CBC ####[facility] Zrtjlpfsoa48[address] [place], [place] [address]Dr.Yilan ChangErythrocyte distribution width (RBC) [Ratio]12.8 %Normal 11.0-15.0The [facility] HospitalComment on above:Performed By: #### CBC ####[facility] Bfvdkgcknp38[address] [place], [place] [address]Dr. Mirandalan ChangHematocrit (Bld) [Volume fraction]37.2 %Critically low42.0-54.0The [facility] HospitalComment on above:Performed By: #### CBC ####[facility] Ehhogyzgbs6[address] [place], [place] [address]Dr.Mirandalan ChangHemoglobin (Bld) [Mass/Vol]13.3 g/dLCritically low14.0-18.0The [facility] HospitalComment on above:Performed By: #### CBC ####[facility] Kvodydsepo18[address] [place], [place] [address]Dr.Yilan ChangIG #0.03 10e3/ulNormal0.00-0.03The [facility] HospitalComment on above:Performed By: #### CBC ####[facility] Btkrdscbyo[address] [place], [place] [address]Dr.Yilan ChangIG %0.4 %Normal 0.0-0.5The [facility] HospitalComment on above:Performed By: #### CBC ####[facility] Hlbcpwjymr23[address] [place], [place] [address]Dr.Yilan ChangLYMPH #1.9 103/ulNormal1.2-3.8The [facility] HospitalComment on above:Performed By: #### CBC ####[facility] Jajzlawghy22[address] [place], [place] [address]Dr.Abhinav LagunaLymphocytes/100 WBC (Bld)23.8 %Wpjvel25.5-60.0The [facility] HospitalComment on above:Performed By: #### CBC ####[facility] Lvxwtnujxb4155[address] [place], [place] [address]Dr.Abhinav LagunaMANUAL DIFF REQ NONormalThe [facility] HospitalComment on above:Performed By: #### CBC ####[facility] Oypergxata0825[address] [place], [place] [address]Dr. Abhinav LagunaH (RBC) [Entitic mass]30.2 wwDesoaq58.9-34.0The [facility] Comment on above:Performed By: #### CBC ####[facility] Lsjylouuwz48[address] [place], [place] [address]Dr.Mirandagallo LagunaHC (RBC) [Mass/Vol]35.8 g/dL Critically high29.9-35.2The [facility] HospitalComment on above:Performed By: #### CBC ####[facility] Oprpnyfbxx35[address] [place], [place] [address]Dr.Mirandagallo LagunaV (RBC) [Entitic vol]84.5 uLIabcmy94.0-94.0The [facility] HospitalComment on above:Performed By: #### CBC ####[facility] Nplixukfnz8295[address] [place], [place] [address]Dr.Abhinav MariO #0.7 103/ulNormal0.3-0.8The [facility] HospitalComment on above:Performed By: #### CBC ####[facility] Vzmagamsxk14[address] [place], [place] [address]Dr. Mirandagallo LagunaMonocytes/100 WBC (Bld)8.0 %Normal1.7-12.0The [facility] Comment on above:Performed By: #### CBC ####[facility] Nzcwhplqst[address] [place], [place] [address]Dr.Yilan ChangNEUT #5.2 103/ulNormal1.4-6.5 The [facility] HospitalComment on above:Performed By: #### CBC ####[facility] Cmzxppnioe00[address] [place], [place] [address]Dr.Abhinav Laguna Neutrophils/100 WBC (Bld)64.6 %Oawkrc83.0-75.0The [facility] HospitalComment on above:Performed By: #### CBC ####[facility] Indnsujktc0512[address] [place], [place] [address]Dr.Abhinav LagunaPlatelet mean volume (Bld) [Entitic vol] 11.6 fLNormal9.5-13.5The [facility] HospitalComment on above:Performed By: #### CBC ####[facility] Irjnhaykwa9[address] [place], [place] [address]Dr. Abhinav LagunaPLT175 103/uuUnbkzr408-088Seo [facility] HospitalComment on above: Performed By: #### CBC ####[facility] Fqjtxzhavq36[address] [place], [place] [address]Dr.Abhinav LagunaRBC4.40 106/ulCritically low4.70-6.10The [facility] HospitalComment on above:Performed By: #### CBC ####[facility] Rfustwfspl[address] [place], [place] [address]Dr.Abhinav LagunaWBC8.1 103/ul Normal4.0-11.0Mer[facility] HospitalComment on above:Performed By: #### CBC ####[facility] Ntavjowxvk9[address] [place], [place] [address]Dr. Mirandagallo [facility] GLUCOSEon 22-48-7777Nbvygke [Mass/Vol]258 mg/dL Critically usir71-826Iye [facility] HospitalComment on above:Performed By: #### POCGLUC ####[facility] Ogdsnnvavw[address] [place], [place] [address]Dr. Abhinav ChangGlucose [Mass/Vol]177 mg/dLCritically ockt15-216Zse [facility] HospitalComment on above:Performed By: #### POCGLUC ####[facility] Wfcdvvvdsk8[address] [place], [place] [address]Dr. Yilan ChangPROF CHEM 8 (BAS METB)on 98-77-1172Babzc gap [Moles/Vol]9.3 mmol/LNormalMercy Memorial HospitalComment on above:Performed By: #### BMP ####[facility] Uokdjncrxx8[address] [place], [place] [address]Dr.Yilan ChangCalcium [Mass/Vol]8.6 mg/dLNormal8.5-10.1The [facility] HospitalComment on above:Performed By: #### BMP ####[facility] Lncrsqxmjq7[address] [place], [place] [address]Dr.Yilan ChangChloride [Moles/Vol]107 mmol/QWsxhjk22-968Lfh [facility] HospitalComment on above:Performed By: #### BMP ####[facility] Vmndjxzquq48[address] [place], [place] [address]Dr.Yilan ChangCO2 [Moles/Vol] 22.7 mmol/JQzosng88.0-32.0The [facility] HospitalComment on above:Performed By: #### BMP ####[facility] Vyrrajckfr05[address] [place], [place] [address]Dr.Yilan ChangCreatinine [Mass/Vol]0.79 mg/dLNormal0.70-1.30The [facility] HospitalComment on above:Performed By: #### BMP ####[facility] Sumdmntqiu64[address] [place], [place] [address]Dr.Yilan ChangEGFR-AF COLOMBIAN>60Normal>=60The [facility] HospitalComment on above:Performed By: #### BMP ####[facility] Jqewhozjju14[address] [place], [place] [address]Dr. Yilan ChangEGFR-NON AF COLOMBIAN>60Normal>=60The [facility] HospitalComduane l. waters hospital on above:Performed By: #### BMP ####[facility] Bqcqlhpvpd6[address] [place], [place] [address]Dr.Yilan ChangGlucose [Mass/Vol]159 mg/dLCritically ddmw52-368Oos [facility] HospitalComment on above:Performed By: #### BMP ####[facility] Kvtnlpjyll[address] [place] [address]Dr. Abhinav ChangPotassium [Moles/Vol]4.0 mmol/LNormal3.5-5.1The [facility] Comment on above:Performed By: #### BMP ####[facility] Wzjuktompu87[address] [place], [place] [address]Dr.Abhinav ChangSodium [Moles/Vol]135 mmol/L Critically kpt519-602Ial [facility] HospitalComment on above:Performed By: #### BMP ####[facility] Xakgituivf[address] [place], [place] [address]Dr. Mirandalan ChangUrea nitrogen [Mass/Vol]29.0 mg/dLCritically high7.0-18.0The [facility] HospitalComment on above:Performed By: #### BMP ####[facility] Thqmeunqpj057[address] [place], [place] [address]Dr.Mirandalan ChangUrea nitrogen/Creatinine [Mass ratio]36.7 mg/mgNoLicking Memorial HospitalComment on above:Performed By: #### BMP ####[facility] Sweqkgxlwz7[address] [place], [place] [address]Dr.Abhinav ChangAMMONIAon 99-97-4948Hizrqbc (P) [Moles/Vol]12 umol/DJmymse46-64Mdp [facility] HospitalComment on above:Performed By: #### AMM ####[facility] Ktsyosmxna32[address] [place], [place] [address]Dr.Abhinav LagunaBLOOD GASES BTYon MODENASAL CANNULANoLicking Memorial HospitalComment on above:Performed By: #### ABG ####[facility] Wuklrdvkhd[address] [place], [place] [address]Dr.Abhinav LagunaALLENS TEST PositiveNoLicking Memorial HospitalComment on above:Performed By: #### ABG ####[facility] Bzxxylegoq5264[address] [place], [place] [address]Dr. Mirandalan ChangBase excess Calc (Bld) [Moles/Vol]-6.2000 mmol/LCritically low -2.0-2.0The [facility] HospitalComment on above:Performed By: #### ABG ####[facility] Plpovpjxek[address] [place] [address]Dr. Abhinav LagunaBIPAP PRESSUREOhioHealthComment on above:Performed By: #### ABG ####[facility] Muprkhnkgf50[address] [place] [address]Dr.Yigallo ChangCPAPUC Medical Center HospitalComment on above:Performed By: #### ABG ####[facility] Itokhzrwuj5[address] [place] [address]Dr.Abhinav YhyemCJH6JzotkoMvfOhioHealthComment on above:Performed By: #### ABG ####[facility] Bmabckntjg65[address] [place], [place] [address]Dr.Abhinav ChangHCO3 (Bld) [Moles/Vol]19.9 mmol/LCritically low22.0-26.0The [facility] HospitalComment on above:Performed By: #### ABG ####[facility] Osurhhdkfl9[address] [place], [place] [address]Dr.Abhinav FncnuPMH5OutpmzZaqOhioHealthComment on above:Performed By: #### ABG ####[facility] Sbndajuesf[address] [place], [place] [address]Dr.Abhinav ChangMINUTE VOLUME NormalThe [facility] HospitalComment on above:Performed By: #### ABG ####[facility] Eidydpshwo43[address] [place], [place] [address]Dr.Abhinav ChangOxygen (Bld) [Partial pressure]106.0 mm[Hg]Critically high80.0-100.0The [facility] HospitalComment on above:Performed By: #### ABG ####[facility] Crklfdmdoh[address] [place], [place] [address]Dr.Abhinav LagunaOxygen saturation in Blood98.3 %Hiokxy25.0-100.0The [facility] HospitalComment on above: Performed By: #### ABG ####[facility] Ymdvieikgh[address] [place], [place] [address]Dr.Abhinav HdovtXOO053.6 mjMpFhxypm87.0-45.0[facility] HospitalComment on above:Performed By: #### ABG ####[facility] Gashefbtuu[address] [place] [address]Dr.[facility] Mercy HospitalComment on above:Performed By: #### ABG ####[facility] Kqxxhdyqas280[address] [place] [address]Dr.Abhinav LagunapH (Bld)7.320 [pH]Critically low7.350-7.450The [facility] HospitalComment on above:Performed By: #### ABG ####[facility] [address] [place] [address]Dr.[facility]aritan Health CenterPIPNMarion HospitalComment on above:Performed By: #### ABG ####[facility] [address] [place] [address]Dr.[facility] HospitalComment on above:Performed By: #### ABG ####[facility] [address] [place], [place] [address]Dr.[facility] [address] JasePUNCTURE [facility] HospitalComment on above: Performed By: #### ABG ####[facility] [address] [place] [address]Dr.[facility]aritan Health CenterRATENormalFirelands Regional Medical Center [facility] Campus on above:Performed By: #### ABG ####[facility] Ox[address] [place], [place] [address]Dr.[facility] Comment on above:Performed By: #### ABG ####[facility] Z[address] [place], [place] [address]Dr.[facility] Comment on above:Performed By: #### ABG ####[facility] [address]nbvzfh[address] [place], [place] [address]Dr.Abhinav GomezPon 35-15-0355Jwndjilprlg peptide B (Bld) [Mass/Vol]69.0 pg/mLNormal<=900.0The [facility]ment on above:Performed By: #### BNP, CMP, TSH, CMADM ####[facility] [address] [place] [address]Dr. Abhinav LagunaCARDIAC GILMER ADMITon 06-68-9029VK [Catalytic activity/Vol]91 U/QKuoola10-641Kpt [facility]ment on above:Performed By: #### BNP, CMP, TSH, CMADM ####[facility] Yrcdoiknhc[address] [place] [address]Dr. Abhinav LagunaCK.MB [Mass/Vol]4.08 ng/mLCritically high<=3.60The [facility] on above: Performed By: #### BNP, CMP, TSH, CMADM ####[facility] Lrqppvktrl[address] [place] [address]Dr. Abhinav LagunaWajdmTRSEHI78.8 pg/mLNormal 4.0-76.1The [facility] on above:Result Comment: CUT-OFF POINTS HAVE BEEN ESTABLISHED BASED ON THE FOURTH UNIVERSAL DEFINITIONS OF MY OCARDIALINFARCTION. THE UPPER REFERENCE LIMIT (URL) OF TROPONIN, DEFINED THE 99TH PERCENTILE OFcTnI DISTRIBUTION IN A REFERENCE POPULATION, HAS BEEN CONFIRMED THE DECISION THRESHOLDFOR MD DIAGNOSIS.Performed By: #### BNP, CMP, TSH, CMADM ####[facility] [address]uzsdk[address] [place] [address]Dr. Abhinav LagunaMYO342 ng/mLCritically brsb15-89Djx [facility] on above:Performed By: #### BNP, CMP, TSH, CMADM ####[facility] Vsrbuycmry[address] [place] [address]Dr. Abhinav LagunaCBC AUTO DIFF on 80-11-2411HAAQ #0.1 103/ulNormal0.0-0.1The [facility] on above: Performed By: #### CBC ####[facility] Aqiwnpmjtv[address] [place] [address]Dr.Abhinav LagunaBasophils/100 WBC (Bld)0.6 %Normal 0.2-2.0The [facility] on above:Performed By: #### CBC ####[facility] Czakijpilv[address] [place] [address]Dr.Yilan ChangEO # 0.1 103/ulNormal0.0-0.7The [facility] HospitalComment on above:Performed By: #### CBC ####[facility] Xconfztbmx[address] [place], [place] [address]Dr. Yilan ChangEosinophils/100 WBC (Bld)1.5 %Normal0.9-7.0[facility] Comment on above:Performed By: #### CBC ####[facility] Fzypcrqmhq57[address] [place], [place] [address]Dr.Yilan ChangErythrocyte distribution width (RBC) [Ratio]12.8 %Rshube09.0-15.0The [facility] HospitalComment on above: Performed By: #### CBC ####[facility] Miullwxgiv4[address] [place], [place] [address]Dr.Yilan ChangHematocrit (Bld) [Volume fraction]42.1 % Pmtryi82.0-54.0The [facility] HospitalComment on above:Performed By: #### CBC ####[facility] Fcipsmnjmk23[address] [place], [place] [address]Dr. Yilan ChangHemoglobin (Bld) [Mass/Vol]15.4 g/uXFtekvo82.0-18.0The [facility] HospitalComment on above:Performed By: #### CBC ####[facility] Rhzqlcljob16[address] [place], [place] [address]Dr.Yilan ChangIG #0.02 10e3/ulNormal0.00-0.03The [facility] HospitalComment on above:Performed By: #### CBC ####[facility] Yddbnsgtyn76[address] [place], [place] [address]Dr. Yilan ChangIG %0.2 %Normal0.0-0.5The [facility]ment on above:Performed By: #### CBC ####[facility] Muruxwcokl[address] [place], [place] [address]Dr.Yilan ChangLYMPH #2.5 103/ulNormal1.2-3.8[facility] Comment on above:Performed By: #### CBC ####[facility] Serzyqclut2838[address] [place], [place] [address]Dr.Abhinav LagunaLymphocytes/100 WBC (Bld)28.3 %Tbrtwh64.5-60.0The [facility]Comment on above:Performed By: #### CBC ####[facility] Imazkyzfxz5042[address] [place], [place] [address]Dr. Abhinav LagunaMANUAL DIFF REQNONormalThe [facility] HospitalComment on above: Performed By: #### CBC ####[facility] Mhuvvfiskq9[address] [place], [place] [address]Dr.Mirandagallo LagunaH (RBC) [Entitic mass]30.5 pgNormal 25.9-34.0The [facility] HospitalComment on above:Performed By: #### CBC ####[facility] Zqcfhjewby5137[address] [place], [place] [address]Dr. Mirandagallo JaseHC (RBC) [Mass/Vol]36.6 g/dLCritically high29.9-35.2The [facility] HospitalComment on above:Performed By: #### CBC ####[facility] Dwxnqbcees0[address] [place], [place] [address]Dr.Mirandagallo JaseV (RBC) [Entitic vol]83.4 lBTthqet10.0-94.0The [facility] HospitalComment on above: Performed By: #### CBC ####[facility] Otaydombob[address] [place], [place] [address]Dr.Abhinav LagunaMONO #0.7 103/ulNormal0.3-0.8The [facility] HospitalComment on above:Performed By: #### CBC ####[facility] Xzphrvtoow8[address] [place], [place] [address]Dr.Abhinav LagunaMonocytes/100 WBC (Bld)7.3 %Normal1.7-12.0The [facility] HospitalComment on above:Performed By: #### CBC ####[facility] Mqxehicxnu74[address] [place], [place] [address]Dr.Abhinav LagunaNEUT #5.5 103/ulNormal1.4-6.5The [facility] HospitalComment on above:Performed By: #### CBC ####[facility] Ejkdpapnhz[address] [place], [place] [address]Dr.Abhinav LagunaNeutrophils/100 WBC (Bld)62.1 %Normal 43.0-75.0The [facility] HospitalComment on above:Performed By: #### CBC ####[facility] Ynnkmphfnj07[address] [place], [place] [address]Dr. Abhinav LagunaPlatelet mean volume (Bld) [Entitic vol]11.6 fLNormal9.5-13.5The [facility] HospitalComment on above:Performed By: #### CBC ####[facility] Lwjstdjmjb7913[address] [place], [place] [address]Dr.Abhniav LagunaPLT195 103/ul Almejz693-823Ezd [facility] HospitalComment on above:Performed By: #### CBC ####[facility] Crkteraqha6844[address] [place], [place] [address]Dr. Abhinav ChangRBC5.05 106/ulNormal4.70-6.10The [facility] HospitalComment on above: Performed By: #### CBC ####[facility] Dczlldlajo8446[address] [place], [place] [address]Dr.Abhinav LagunaWBC8.9 103/ulNormal4.0-11.0The [facility] HospitalComment on above:Performed By: #### CBC ####[facility] Bdoortwiix38[address] [place], [place] [address]Dr.Abhinav LagunaCT CSPINE WO CONon 79-25-8933AZ CSPINE WO CONNormalMercy Memorial HospitalCT STROKE HEAD WOon 61-13-7591PD STROKE HEAD WONormalMercy Memorial HospitalCovid-19 PCR (CVDTBH)on 25-50-7882DBLM-CoV-2 (COVID-19) RNA EVERT+probe Ql (Unsp spec)Not detectedNormal NOT DETECTEDThe [facility] HospitalComment on above:Result Comment: When diagnostic testing is [...] for this test is supported by the [place] of Health and Human Service's declaration that [...] no longer be used).Performed By: #### CVDTBH ####[facility] Qntiztbtpw4512[address] [place], [place] [address]Dr. Abhinav ChangDRUG SCREEN RAPID (URINE)on 87-93-3798TYVJvdumxbdXxnryoif NEGATIVEMercy Memorial HospitalComment on above:Performed By: #### ERUR, DRUGRPD ####[facility] Umdvwvhryo08[address] [place], [place] [address]Dr. Yigallo ChangBARNegativeNormalNEGATIVEMercy Memorial HospitalComment on above: Performed By: #### ERUR, DRUGRPD ####[facility] Nwagbcjdyr[address] [place], [place] [address]Dr. Abhinav ChangBUPNegativeNormalNEGATIVEMercy Memorial HospitalComment on above:Performed By: #### ERUR, DRUGRPD ####[facility] Speuguwwhm[address] [place], [place] [address]Dr. Yigallo ChangBZONegative NormalNEGATIVEMercy Memorial HospitalComment on above:Performed By: #### ERUR, DRUGRPD ####[facility] Zldsjustgh7563[address] [place], [place] [address]Dr. Yigallo ChangCOCNegativeNormalNEGATIVEMercy Memorial HospitalComment on above:Performed By: #### ERUR, DRUGRPD ####[facility] Meeundbife7[address] [place], [place] [address]Dr. Abhinav LagunaCUT-LANCASTER REHABILITATION HOSPITALE City HospitalComment on above:Result Comment: AMP (Amphetamine): 500ng/mL, BAR (Barbituates): 200 ng/mL, BZO (Benzodiazepines): 150 ng/mL, BUP (Buprenorphine): 10 ng/mL, ISELA (Cocaine): 150 ng/mL, mAMP (Methamphetamine): 500 ng/mL, MTD (Methadone): 200 ng/mL, OPI (Opiates): 100 ng/mL, OXY (Oxycodone): 100 ng/mL, PCP (Phencyclidine): 25 ng/mL, PPX (Propoxyphene): 300 ng/mL, THC (Cannabinoids): 50 ng/mL, TCA (Trycyclic Antidepressants): 300 ng/mLPerformed By: #### ERUR, DRUGRPD ####[facility] Krslsxdxyh88[address] [place], [place] [address]Dr. Abhinav LagunaDRUG CUT HEADERDRUG CLASS TEST SYSTEM CUT-OFF CONCENTRATIONS ARE FOLLOWS:NormalMercy Memorial HospitalComment on above:Performed By: #### ERUR, DRUGRPD ####[facility] Ebyvbzfzjf25[address] [place], [place] [address]Dr. Abhinav LagunamAMPPositiveAbnormalNEGATIVEMercy Memorial HospitalComment on above:Performed By: #### ERUR, DRUGRPD ####[facility] Eqlttoujcf[address] [place], [place] [address]Dr. Abhinav LagunaMTD NegativeNormalNEGATIVEMercy Memorial HospitalComment on above:Performed By: #### ERUR, DRUGRPD ####[facility] Apriuvpacy[address]19[address] [place], [place] [address]Dr. Abhinav LagunaOPINegativeNormalNEGATIVEMercy Memorial HospitalComment on above:Performed By: #### ERUR, DRUGRPD ####[facility] Jfemtzipsr294[address] [place], [place] [address]Dr. Abhinav LagunaOXYNegativeNormalNEGATIVEMercy Memorial HospitalComment on above:Performed By: #### ERUR, DRUGRPD ####[facility] K[address]xrdwfu[address] [place] [address]Dr. Yilan ChangPCP NegativeNormalNEGATIVECleveland Clinic South Pointe Hospital HospitalComment on above:Performed By: #### CATALINAR, DRUGRPD ####[facility] Ezccajltdh[address] [place], [place] [address]Dr. Yilan ChangPPXNegativeNormalNEGATIVECleveland Clinic South [facility]inte Hospital HospitalComment on above:Performed By: #### CATALINAR DRUGRPD ####[facility] Mkkfweegdp1536[address] [place], [place] [address]Dr. Yilan ChangTCANegativeNormalNEGATIVECleveland Clinic South [facility]inte Hospital HospitalComment on above:Performed By: #### YASMINE DRUGRPD ####[facility] Jfihcjoudk3206[address] [place], [place] [address]Dr. Yilan ChangTHC PositiveAbnormalNEGATIVEMercy Memorial HospitalComment on above:Performed By: #### YASMINE DRUGRPD ####[facility] Ykqnqolzsk[address] [place], [place] [address]Dr. Yilan ChangER URINE PROFILEon 79-10-7574Xifmrural Ql (U)Negative NormalNEGATIVEMercy Memorial HospitalComment on above:Performed By: #### YASMINE DRUGRPD ####[facility] Tuykkqdxjq[address] [place], [place] [address]Dr. Yilan ChangClarity (U)CLEARNormalCLEARCleveland Clinic South Pointe Hospital HospitalComment on above:Performed By: #### YASMINE DRUGRPD ####[facility] Kxtldybpip[address] [place], [place] [address]Dr. Yilan ChangColor (U)LT. YELLOWNormalYELLOWMercy Memorial HospitalComment on above:Performed By: #### YASMINE DRUGRPD ####[facility] Xjiwkkvnwo79[address] [place], [place] [address]Dr. Mirandalan Laguna ERUAHDA micrscopic examination will be performed if indicated.NormalCleveland Clinic South Pointe Hospital HospitalComment on above:Performed By: #### CATALINAR, DRUGRPD ####[facility] Dmtisadoau45[address] [place], [place] [address]Dr. Yilan ChangGlucose Ql (U) 1000 mg/dlAbnormalNEGATIVEThe [facility] HospitalComment on above:Performed By: #### YASMINE DRUGRPD ####[facility] Vxtsottzyo2887[address] [place], [place] [address]Dr. Yilan ChangHemoglobin Ql (U)NegativeNormalNEGATIVE The [facility] HospitalComment on above:Performed By: #### CATALINAR DRUGRPD ####[facility] Lqprvclnnu84[address] [place], [place] [address]Dr. Yilan ChangKetones Ql (U)NegativeNormalNEGATIVECleveland Clinic South [facility]inte Hospital HospitalComment on above:Performed By: #### YASMINE DRUGRPD ####[facility] Ipyfegmbwi7148[address] [place], [place] [address]Dr. Abhinav LagunaLEUKOCYTESNegativeNormalNEGATIVE The [facility] HospitalComment on above:Performed By: #### YASMINE DRUGRPD ####[facility] Ytbzwvomre7804[address] [place], [place] [address]Dr. Mirandalan ChangNitrite Ql (U)NegativeNormalNEGATIVECleveland Clinic South [facility]inte Hospital HospitalComment on above:Performed By: #### YASMINE DRUGRPD ####[facility] Diofdedwtb4483[address] [place], [place] [address]Dr. Yigallo ChangpH (U)5.5 [pH]Normal5-9The [facility] HospitalComment on above:Performed By: #### YASMINE DRUGRPD ####[facility] Inwiidhzvz[address] [place], [place] [address]Dr. Mirandagallo ChangSPEC GRAVITY1.875Urlbrp9.005-<=1.025The [facility] HospitalComment on above:Performed By: #### YASMINE DRUGRPD ####[facility] Ecpdnzacmj64[address] [place], [place] [address]Dr. Abhinav LagunaUA PROTEINNegativeNormalNEGATIVE/ TRACE The [facility] HospitalComment on above:Performed By: #### CATALINAR DRUGRPD ####[facility] Aqbyllrakc7869[address] [place], [place] [address]Dr. Mirandalan JaseUR MICRO INDNOT INDICATEDNormalThe [facility] HospitalComment on above: Performed By: #### ERUR, DRUGRPD ####[facility] Iixlcupmlo60[address] [place] [address]Dr. Yilan ChangUrobilinogen Qn (U)0.2 {Marshall'U}/dL Normal0.2 - 1.0The [facility] HospitalComment on above:Performed By: #### ERUR DRUGRPD ####[facility] Sujbhftttx79[address] [place], [place] [address]Dr. Yilan ChangETHANOL (BLD ALC)on 46-97-4988VWC NOTENOTE: 80 mg/dl is the legal limit for a blood alcohol levelOhioHealthComment on above:Performed By: #### ETH ####[facility] Wmciceclrg5[address] [place], [place] [address]Dr.Yilan ChangEthanol [Mass/Vol]mg/dLOhioHealthComment on above:Performed By: #### ETH ####[facility] Hmcjbmlqjd1066[address] [place], [place] [address]Dr.Yilan ChangLACTATE/LACTIC ACIDon 76-44-1074Gczbjtu [Moles/Vol]1.4 mmol/LNormal0.4-1.9[facility] Comment on above:Performed By: #### LACT ####[facility] Byoazwsqcv997[address] [place], [place] [address]Dr. Yilan ChangLactate [Moles/Vol]3.5 mmol/L Critically high0.4-1.9The [facility] HospitalComment on above:Performed By: #### LACT ####[facility] Jxiwwstsod7833[address] [place], [place] [address]Dr. Yilan [facility] HospitalPOINT OF CARE GLUCOSEon 65-22-7465Uvrbans [Mass/Vol]202 mg/dLCritically mryv35-160Dqu [facility] HospitalComment on above:Performed By: #### POCGLUC ####[facility] Muspnsrtmq0[address] [place], [place] [address]Dr. Yilan ChangGlucose [Mass/Vol]303 mg/dLCritically mbre31-442Wsd [facility] HospitalComment on above:Performed By: #### POCGLUC ####[facility] Vaidjhehio[address] [place] [address]Dr. Yilan Laguna Glucose [Mass/Vol]388 mg/dLCritically dxdv32-104Ejh [facility] HospitalComment on above:Performed By: #### POCGLUC ####[facility] Erjhaonhif3[address] [place] [address]Dr. Yilan ChangGlucose [Mass/Vol]491 mg/dLCritically emvx90-280Yqc [facility] HospitalComment on above:Performed By: #### POCGLUC ####[facility] Wfihqkzfbg14[address] [place], [place] [address]Dr. Yilan ChangPOCGLUC>600Critically ivkm04-384Kpy [facility] HospitalComduane l. waters hospital on above:Result Comment: Previously ConfirmedPerformed By: #### POCGLUC ####[facility] Ohahvaynys[address] [place], [place] [address]Dr. Yilan ChangPOCGLUC>600Critically pxod44-357Ewt [facility] HospitalComduane l. waters hospital on above:Result Comment: Previously ConfirmedPerformed By: #### POCGLUC ####[facility] Lbkjrnrfhb047[address] [place], [place] [address]Dr. Yilan ChangPROF 14(COMP METB)on 37-24-7799Wzdddyq [Mass/Vol]3.0 g/dLCritically low3.4-5.0[facility] on above:Performed By: #### BNP, CMP, TSH, CMADM ####[facility] Sxannmpzoe[address] [place] [address]Dr. Yilan ChangAlbumin/Globulin [Mass ratio]0.9 {ratio}NormalThe [facility] on above:Performed By: #### BNP, CMP, TSH, CMADM ####[facility] Ftgoqmzeff45[address] [place] [address]Dr. Yilan ChangALP [Catalytic activity/Vol]219 U/LCritically stnv50-076XgkFirelands Regional Medical Center South Campus on above:Performed By: #### BNP, CMP, TSH, CMADM ####[facility] Zoiglccbmn38[address] [place] [address]Dr. Yilan ChangALT [Catalytic activity/Vol]43 U/ZZlhkjz45-24Mvs [facility] HospitalComment on above:Performed By: #### BNP, CMP, TSH, CMADM ####[facility] Smpiecosnv5[address] [place] [address]Dr. Yilan ChangAnion gap [Moles/Vol]14.4 mmol/LNormal The [facility] HospitalComment on above:Performed By: #### BNP, CMP, TSH, CMADM ####[facility] Vsbxkvrtet4[address] [place] [address]Dr. Yilan ChangAST [Catalytic activity/Vol]24 U/QKruknw16-81Obx [facility] Comment on above:Performed By: #### BNP, CMP, TSH, CMADM ####[facility] Dujrscfltg90[address] [place] [address]Dr. Yilan ChangBilirubin [Mass/Vol]0.7 mg/dLNormal0.2-1.0The [facility] HospitalComment on above:Performed By: #### BNP, CMP, TSH, CMADM ####[facility] Sleuwnpjmr[address] [place], [place] [address]Dr. Yilan ChangCalcium [Mass/Vol]9.8 mg/dLNormal 8.5-10.1The [facility] HospitalComment on above:Performed By: #### BNP, CMP, TSH, CMADM ####[facility] Tyupfjyqvp65[address] [place], [place] [address]Dr. Yilan ChangChloride [Moles/Vol]88 mmol/LCritically fmo67-631Dqw [facility] HospitalComment on above:Performed By: #### BNP, CMP, TSH, CMADM ####[facility] Lrxrwinjse8942[address] [place], [place] [address]Dr. Yilan ChangCO2 [Moles/Vol]23.3 mmol/ZLqljph59.0-32.0The [facility] HospitalComment on above:Performed By: #### BNP, CMP, TSH, CMADM ####[facility] Dhlmzwluwb5[address] [place], [place] [address]Dr. Yilan ChangCreatinine [Mass/Vol]1.44 mg/dLCritically high0.70-1.30The [facility] HospitalComment on above:Performed By: #### BNP, CMP, TSH, CMADM ####[facility] Wdskaosgik[address] [place] [address]Dr. Yilan ChangEGFR-AF DANTAQWZ61 mL/min/1.60u8Qboxzj>=60The [facility] HospitalComment on above: Performed By: #### BNP, CMP, TSH, CMADM ####[facility] Lauymmoobf26[address] [place] [address]Dr. Yilan ChangEGFR-NON AF NFQKLQBO13 mL/min/1.84x9Exhpavclea low>=60The [facility] on above:Performed By: #### BNP, CMP, TSH, CMADM ####[facility] Pftieurgwe12[address] [place], [place] [address]Dr. Yilan ChangGlobulin (S) [Mass/Vol]3.4 g/dLNormal The [facility] HospitalComment on above:Performed By: #### BNP, CMP, TSH, CMADM ####[facility] Ehshydmkrl0[address] [place], [place] [address]Dr. Yilan ChangGlucose [Mass/Vol]782 mg/dLCritically ukat20-405Jyk [facility] Comment on above:Performed By: #### BNP, CMP, TSH, CMADM ####[facility] Ockugtfhjf85[address] [place], [place] [address]Dr. Yilan ChangPotassium [Moles/Vol]3.7 mmol/LNormal3.5-5.1The [facility]ment on above: Performed By: #### BNP, CMP, TSH, CMADM ####[facility] Zdxofkjabm6[address] [place], [place] [address]Dr. Yilan ChangProtein [Mass/Vol]6.4 g/dL Normal6.4-8.2The [facility] HospitalComment on above:Performed By: #### BNP, CMP, TSH, CMADM ####[facility] Fwbcvcdxlc4[address] [place], [place] [address]Dr. Yilan ChangSodium [Moles/Vol]122 mmol/LCritically epw887-406Sax [facility] HospitalComment on above:Performed By: #### BNP, CMP, TSH, CMADM ####[facility] Etmbvaevgz[address] [place] [address]Dr. Yilan ChangUrea nitrogen [Mass/Vol]32.0 mg/dLCritically high7.0-18.0The [facility] HospitalComment on above:Performed By: #### BNP, CMP, TSH, CMADM ####[facility] Btfvsjqdeg98[address] [place], [place] [address]Dr. Yilan ChangUrea nitrogen/Creatinine [Mass ratio]22.2 mg/mgNormalThe [facility] HospitalComment on above:Performed By: #### BNP, CMP, TSH, CMADM ####[facility] Oboqrgfzff86[address] [place] [address]Dr. Abhinav ChangPROF CHEM 8 (BAS METB)on 58-72-9906Kvskf gap [Moles/Vol]10.3 mmol/LNormalThe [facility] HospitalComment on above:Performed By: #### BMP ####[facility] Otlelwkzdl65[address] [place], [place] [address]Dr.Yilan ChangCalcium [Mass/Vol]8.8 mg/dLNormal8.5-10.1The [facility] HospitalComment on above:Performed By: #### BMP ####[facility] Pccffsmsis3[address] [place], [place] [address]Dr.Yilan ChangChloride [Moles/Vol]106 mmol/TXjgibl05-512Buc [facility] HospitalComment on above:Performed By: #### BMP ####[facility] Wgvewooier56[address] [place], [place] [address]Dr.Yilan ChangCO2 [Moles/Vol] 22.2 mmol/WAgnzfb56.0-32.0The [facility] HospitalComment on above:Performed By: #### BMP ####[facility] Pjqajepryw[address] [place], [place] [address]Dr.Yilan ChangCreatinine [Mass/Vol]1.01 mg/dLNormal0.70-1.30The [facility] HospitalComment on above:Performed By: #### BMP ####[facility] Zawcfnecvr[address] [place] [address]Dr.Yilan ChangEGFR-AF COLOMBIAN>60Normal>=60The [facility] HospitalComment on above:Performed By: #### BMP ####[facility] Ythmlilnrx30[address] [place] [address]Dr. Yilan ChangEGFR-NON AF COLOMBIAN>60Normal>=60The [facility] HospitalComment on above:Performed By: #### BMP ####[facility] Bsxvjouctj20[address] [place], [place] [address]Dr.Yilan ChangGlucose [Mass/Vol]159 mg/dLCritically wdsz38-532Jtg [facility] HospitalComment on above:Performed By: #### BMP ####[facility] Enraotfktl[address] [place], [place] [address]Dr. Yilan ChangPotassium [Moles/Vol]3.5 mmol/LNormal3.5-5.1The [facility] Comment on above:Performed By: #### BMP ####[facility] Fkftzwqqxi208[address] [place], [place] [address]Dr.Yilan ChangSodium [Moles/Vol]135 mmol/L Critically zdw746-034Ymj [facility] Hospitalment on above:Performed By: #### BMP ####[facility] Ubfcjwiyzv8654[address] [place], [place] [address]Dr. Yilan ChangUrea nitrogen [Mass/Vol]32.0 mg/dLCritically high7.0-18.0The [facility] Hospitalment on above:Performed By: #### BMP ####[facility] Dgmthojfvs26[address] [place], [place] [address]Dr.Yilan ChangUrea nitrogen/Creatinine [Mass ratio]31.7 mg/mgNormalThe [facility] HospitalComment on above:Performed By: #### BMP ####[facility] Bvnodpofxk44[address] [place], [place] [address]Dr.Yilan ChangPROTIMEon 82-29-1950PLJ Coag (PPP) [Relative time]0.99 {INR}NormalMercy Memorial HospitalComment on above:Performed By: #### PTT, PT ####[facility] Zpdnppbnks[address] [place], [place] [address]Dr. Mirandagallo LagunaINR GUIDELINESSEE City [facility] Comment on above:Result Comment: DESIRED INR: 2.0 - 3.0 CONDITIONS NOT LISTED BELOW 2.5 - 3.5 FOR PROSTHETIC HEART VALVE REPLACEMENT 2.5 - 3.5 RECURRENT THROMBOSISPerformed By: #### PTT, PT ####[facility] Ktdnnifrfm[address] [place], [place] [address]Dr. Mirandagallo LagunaPT Coag (PPP) [Time]10.7 sNormal 9.0-11.6The [facility] HospitalComment on above:Performed By: #### PTT, PT ####[facility] Ynhzogssme25[address] [place], [place] [address]Dr. Abhinav LagunaPTTon 74-07-9521eFCR Coag (Bld) [Time]25.4 gHdbjrg44.3-36.2The [facility] HospitalComment on above:Performed By: #### PTT, PT ####[facility] Afittncduz99[address] [place], [place] [address]Dr. Mirandagallo LagunaTSHon 10-32-1062WJS7.175 uIU/mLNormal0.358-3.740Mercy Memorial HospitalComment on above:Performed By: #### BNP, CMP, TSH, CMADM ####[facility] Ykrnjuqbta[address] [place], [place] [address]Dr. Abhinav LagunaXR CHEST 1 Von 47-62-1166RT CHEST 1 VNormalMercy Health [facility]iff[facility] Hospital AUTO DIFFon 82-36-5440KGUE #0.0 103/ulNormal0.0-0.1The [facility] HospitalComment on above:Performed By: #### CBC ####[facility] Rsevxsnvpm6[address] [place], [place] [address]Dr.Mirandagallo LagunaBasophils/100 WBC (Bld)0.5 %Normal0.2-2.0The [facility] HospitalComment on above:Performed By: #### CBC ####[facility] Vfixucqgei[address] [place] [address]Dr.Yilan ChangEO #0.1 103/ul Normal0.0-0.7The [facility] HospitalComment on above:Performed By: #### CBC ####[facility] Vqvafyssbr62[address] [place], [place] [address]Dr. Yilan ChangEosinophils/100 WBC (Bld)1.5 %Normal0.9-7.0The [facility] Comment on above:Performed By: #### CBC ####[facility] Hjuupfichu[address] [place], [place] [address]Dr.Yilan ChangErythrocyte distribution width (RBC) [Ratio]11.9 %Dgbaxo31.0-15.0The [facility] HospitalComment on above: Performed By: #### CBC ####[facility] [address]cv[address] [place], [place] [address]Dr.Mirandalan ChangHematocrit (Bld) [Volume fraction]48.7 % Eblmhn17.0-54.0[facility] HospitalComment on above:Performed By: #### CBC ####[facility] [address] [place], [place] [address]Dr. Mirandagallo ChangHemoglobin (Bld) [Mass/Vol]17.3 g/wPCshjlg94.0-18.0The [facility] HospitalComment on above:Performed By: #### CBC ####[facility] [address] [place], [place] [address]Dr.Yilan ChangIG #0.02 10e3/ulNormal0.00-0.03The [facility] HospitalComment on above:Performed By: #### CBC ####[facility] [address]ys[address] [place], [place] [address]Dr. Yilan ChangIG %0.3 %Normal0.0-0.5The [facility] HospitalComment on above:Performed By: #### CBC ####[facility] [address] [place], [place] [address]Dr.Yilan ChangLYMPH #2.9 103/ulNormal1.2-3.8[facility] Comment on above:Performed By: #### CBC ####[facility] Ulwewwvrra[address] [place], [place] [address]Dr.Abhinav LagunaLymphocytes/100 WBC (Bld)46.3 %Qhbjzk28.5-60.0The [facility] HospitalComment on above:Performed By: #### CBC ####[facility] Bgixnunzzx[address] [place], [place] [address]Dr. Abhinav LagunaMANUAL DIFF REQNONormalThe [facility] HospitalComment on above: Performed By: #### CBC ####[facility] Uhsocektge[address] [place], [place] [address]Dr.Mirandagallo JaseH (RBC) [Entitic mass]30.3 pgNormal 25.9-34.0The [facility] HospitalComment on above:Performed By: #### CBC ####[facility] Nqaorisobk[address] [place], [place] [address]Dr. Mirandagallo JaseHC (RBC) [Mass/Vol]35.5 g/dLCritically high29.9-35.2The [facility] HospitalComment on above:Performed By: #### CBC ####[facility] Uspekdpicj[address] [place], [place] [address]Dr.Mirandagallo JaseV (RBC) [Entitic vol]85.3 uNTgksfu45.0-94.0The [facility] HospitalComment on above: Performed By: #### CBC ####[facility] Vedazuaklb[address] [place], [place] [address]Dr.Mirandagallo JaseFADYO #0.5 103/ulNormal0.3-0.8The [facility] HospitalComment on above:Performed By: #### CBC ####[facility] Ngbyegusjo11[address] [place], [place] [address]Dr.Abhinav LagunaMonocytes/100 WBC (Bld)7.9 %Normal1.7-12.0The [facility] HospitalComment on above:Performed By: #### CBC ####[facility] Gixqmjgnfa8734[address] [place], [place] [address]Dr.Abhinav LagunaNEUT #2.7 103/ulNormal1.4-6.5The [facility] HospitalComment on above:Performed By: #### CBC ####[facility] Wfnqkrfipx[address] [place], [place] [address]Dr.Abhinav LagunaNeutrophils/100 WBC (Bld)43.5 %Normal 43.0-75.0The [facility] HospitalComment on above:Performed By: #### CBC ####[facility] Bqfyhyokqu[address] [place], [place] [address]Dr. Abhinav LagunaPlatelet mean volume (Bld) [Entitic vol]10.7 fLNormal9.5-13.5The [facility] HospitalComment on above:Performed By: #### CBC ####[facility] Ynjfedjchg[address] [place], [place] [address]Dr.Abhinav LagunaPLT202 103/ul Ajgjgn563-237Oto Grant HospitalComment on above:Performed By: #### CBC ####[facility] Xelitxhtul[address] [place], [place] [address]Dr. Abhinav ChangRBC5.71 106/ulNormal4.70-6.10The [facility] HospitalComment on above: Performed By: #### CBC ####[facility] Iiaualuzfu[address] [place], [place] [address]Dr.Abhinav LagunaWBC6.2 103/ulNormal4.0-11.0The [facility] HospitalComment on above:Performed By: #### CBC ####[facility] Uxshmsizki5[address] [place], [place] [address]Dr.Abhinav LagunaGLYCOHEMOGLOBIN A1Con [id number] RECOMMENDATIONSEE BELOWOhioHealthComment on above:Result Comment: ADA RECOMMENDED LIMIT 4.0 - 6.0 ADA THERAPEUTIC TARGET < 7.0 ACTION SUGGESTED > 7.0Performed By: #### A1C ####[facility] Zkgafkswzi9[address] [place], [place] [address]Dr.Abhinav LagunaGlucose [Mass/Vol]272 mg/dLNoLicking Memorial HospitalComment on above:Performed By: #### A1C ####[facility] [address]bl[address] [place] [id number].Abhinav LagunaHbA1c (Bld) [Mass fraction]11.1 %Critically high4.5-6.2The [facility] HospitalComment on above:Performed By: #### A1C ####[facility] [address]dst[address] [place] [address]Dr.Abhinav LagunaLIPID PROFILEon [id number]-HDL RATIO NORMSEE BELOWOhioHealthComment on above:Result Comment: 3.3 - 4.4 LOW RISK 4.4 - 7.1 AVERAGE RISK 7.1 - 11.0 MODERATE RISK >11.0 HIGH RISKPerformed By: #### LIPID, CMP ####[facility] Ftlbjcsslo[address] [place], [place] [address]Dr. Abhinav ChangCholesterol [Mass/Vol]200 mg/dLNormal<=200The [facility] on above:Performed By: #### LIPID, CMP ####[facility] Xmqdepelsi8[address] [place], [place] [address]Dr. Mirandalan ChangCholesterol in HDL [Mass/Vol]50 mg/dL Hysebe35-34WeoMercy Memorial HospitalComduane l. waters hospital on above:Performed By: #### LIPID, CMP ####[facility] Ffvfgmofst6[address] [place], [place] [address]Dr. Abhinav ChangCholesterol in LDL [Mass/Vol]125.6 mg/dLOhioHealth Comment on above:Performed By: #### LIPID, CMP ####[facility] Kalxqbewsh9[address] [place], [place] [address]Dr. Mirandagallo Laguna Cholesterol.total/Cholesterol in HDL [Mass ratio]4.0 {ratio}NormalFirelands Regional Medical Center [facility] on above:Performed By: #### LIPID, CMP ####[facility] Artxhujnmd76[address] [place], [place] [address]Dr. Yilan ChangHDL NORMAL> or = 60 mg/dl - LOW CARDIOVASCULAR RISK <40 mg/dl - HIGH CARDIOVASCULAR RISKNormal The [facility] HospitalComduane l. waters hospital on above:Performed By: #### LIPID, CMP ####[facility] [address] [place] [address]Dr. Yilan ChangLDL CALC NORMALSEE BELOWNoLicking Memorial HospitalComment on above:Result Comment: <100 mg/dl OPTIMAL 100 - 129 mg/dl NEAR OR ABOVE OPTIMAL 130 - 159 mg/dl BORDERLINE HIGH 160 - 189 mg/dl HIGH >190 mg/dl VERY HIGHPerformed By: #### LIPID, CMP ####[facility] Dzxkvrcpcj4[address] [place], [place] [address]Dr. Yilan ChangTriglyceride [Mass/Vol]122 mg/dLNormal<=150The [facility] HospitalComment on above:Performed By: #### LIPID, CMP ####[facility] Txvhrsusyl8858[address] [place], [place] [address]Dr. Yilan ChangVLDL CALC24.4 mg/dLNoLicking Memorial HospitalComment on above:Performed By: #### LIPID, CMP ####[facility] Avswghcklj4208[address] [place], [place] [address]Dr. Yilan ChangPROF 14(COMP METB)on 05-23-8717Qjeznbe [Mass/Vol]2.6 g/dLCritically low3.4-5.0The [facility] HospitalComment on above:Performed By: #### LIPID, CMP ####[facility] Fysfhordic5398[address] [place], [place] [address]Dr. Yilan ChangAlbumin/Globulin [Mass ratio]0.6 {ratio}NormalMercy Memorial Hospital Comment on above:Performed By: #### LIPID, CMP ####[facility] Cneoeqrdwu4[address] [place], [place] [address]Dr. Yilan ChangALP [Catalytic activity/Vol]247 U/LCritically tvvk45-718Mmm [facility] HospitalComment on above: Performed By: #### LIPID, CMP ####[facility] Jplrybysnu309[address] [place], [place] [address]Dr. Yilan ChangALT [Catalytic activity/Vol]33 U/L Szyljv21-16Koj [facility] HospitalComment on above:Performed By: #### LIPID, CMP ####[facility] Qihunancxp74[address] [place], [place] [address]Dr. Yilan ChangAnion gap [Moles/Vol]7.7 mmol/LNormalThe [facility] HospitalComment on above:Performed By: #### LIPID, CMP ####[facility] G[address]wyvspae[address] [place] [address]Dr. Yilan ChangAST [Catalytic activity/Vol]19 U/L Fhnlqc39-01Uii [facility] HospitalComment on above:Performed By: #### LIPID, CMP ####[facility] Rxhzngxuzw[address] [place] [address]Dr. Yilan ChangBilirubin [Mass/Vol]0.2 mg/dLNormal0.2-1.0[facility] Comment on above:Performed By: #### LIPID, CMP ####[facility] Ssmmitvaff1587[address] [place], [place] [address]Dr. Yilan ChangCalcium [Mass/Vol]9.7 mg/dLNormal8.5-10.1The [facility] HospitalComment on above:Performed By: #### LIPID, CMP ####[facility] Wgjmidmcod9[address] [place], [place] [address]Dr. Yilan ChangChloride [Moles/Vol]101 mmol/LNormal 98-107The [facility] HospitalComment on above:Performed By: #### LIPID, CMP ####[facility] Erxopqrmdi18[address] [place], [place] [address]Dr. Yilan ChangCO2 [Moles/Vol]30.8 mmol/TOdnkkl61.0-32.0The [facility] HospitalComment on above:Performed By: #### LIPID, CMP ####[facility] Jhxjcirxsh[address] [place], [place] [address]Dr. Yilan ChangCreatinine [Mass/Vol]0.84 mg/dLNormal0.70-1.30The [facility] HospitalComment on above:Performed By: #### LIPID, CMP ####[facility] Brzvofywhf64[address] [place], [place] [address]Dr. Yilan ChangEGFR-AF COLOMBIAN>60Normal>=60The [facility] HospitalComment on above:Performed By: #### LIPID, CMP ####[facility] Mg[address]feuyl[address] [place] [id number]. Yilan ChangEGFR-NON AF COLOMBIAN>60Normal>=60 The [facility] HospitalComment on above:Performed By: #### LIPID, CMP ####[facility] Bebsgiqqgm[address] [place] [address]Dr. Yilan Laguna Globulin (S) [Mass/Vol]4.1 g/dLNormOhioHealth Grant Medical CenterComment on above: Performed By: #### LIPID, CMP ####[facility] Cyxpejnefg5563[address] [place], [place] [address]Dr. Yilan ChangGlucose [Mass/Vol]265 mg/dLCritically cuhr59-414Bus [facility] HospitalComment on above:Performed By: #### LIPID, CMP ####[facility] Trkefkpcil9288[address] [place], [place] [address]Dr. Yilan ChangPotassium [Moles/Vol]4.5 mmol/LNormal3.5-5.1[facility] Comment on above:Performed By: #### LIPID, CMP ####[facility] Sscqvzlera[address] [place], [place] [address]Dr. Yilan ChangProtein [Mass/Vol]6.7 g/dLNormal6.4-8.2The [facility] HospitalComment on above:Performed By: #### LIPID, CMP ####[facility] Ibzedwcsad6136[address] [place], [place] [address]Dr. Yilan ChangSodium [Moles/Vol]135 mmol/LCritically gqb167-157Ids [facility] HospitalComment on above:Performed By: #### LIPID, CMP ####[facility] Ypgtowlymg7909[address] [place], [place] [address]Dr. Yilan ChangUrea nitrogen [Mass/Vol]18.0 mg/dLNormal7.0-18.0[facility] Comment on above:Performed By: #### LIPID, CMP ####[facility] Dugiqsigvd7[address] [place], [place] [address]Dr. Yilan ChangUrea nitrogen/Creatinine [Mass ratio]21.4 mg/mgNormOhioHealth Grant Medical CenterComment on above:Performed By: #### LIPID, CMP ####[facility] Rjbuakkals[address] [place], [place] [address]Dr. Yilan ChangSED RATE WESTERGRENon 07-28-2022 SED RATE28 mm/hrCritically high<=20The [facility] HospitalComduane l. waters hospital on above: Performed By: #### SEDR ####[facility] Brmnnbnmor6162[address] [place], [place] [address]Dr. Yilan ChangXR FOOT RT MIN 3 VIEWSon 44-17-0082SS FOOT RT MIN 3 VIEWSNormOhioHealth Grant Medical CenterCBC AUTO DIFFon 07-18-7212GUSI # 0.0 103/ulNormal0.0-0.1The [facility] on above:Performed By: #### CBC ####[facility] Airomvtlql408[address] [place], [place] [address]Dr. Yilan ChangBasophils/100 WBC (Bld)0.4 %Normal0.2-2.0The [facility] on above:Performed By: #### CBC ####[facility] Jfmccbbgvm9314[address] [place], [place] [address]Dr.Yilan ChangEO #0.1 103/ulNormal0.0-0.7The [facility] on above:Performed By: #### CBC ####[facility] Vpbbfixthv4164[address] [place], [place] [address]Dr.Yilan ChangEosinophils/100 WBC (Bld)1.5 %Normal0.9-7.0The [facility] HospitalComduane l. waters hospital on above:Performed By: #### CBC ####[facility] Hglzztsrtz1027[address] [place], [place] [address]Dr.Yilan ChangErythrocyte distribution width (RBC) [Ratio]12.4 %Normal 11.0-15.0The [facility] on above:Performed By: #### CBC ####[facility] Xryyeunnhk8577[address] [place], [place] [address]Dr. Yilan ChangHematocrit (Bld) [Volume fraction]38.2 %Critically low42.0-54.0The [facility] HospitalComment on above:Performed By: #### CBC ####[facility] Qpkabeyhsl3819[address] [place], [place] [address]Dr.Abhinav LagunaHemoglobin (Bld) [Mass/Vol]13.9 g/dLCritically low14.0-18.0The [facility] HospitalComment on above:Performed By: #### CBC ####[facility] Gxykeqljbl0135[address] [place], [place] [address]Dr.Abhinav JaseIG #0.05 10e3/ulCritically high0.00-0.03 The [facility] HospitalComment on above:Performed By: #### CBC ####[facility] Abetnwqjqd4019[address] [place], [place] [address]Dr.Mirandagallo LagunaIG % 0.6 %Critically high0.0-0.5The [facility] HospitalComment on above:Performed By: #### CBC ####[facility] Fqegphloha[address] [place], [place] [address]Dr.Abhinav JaseLYMPH #2.2 103/ulNormal1.2-3.8The [facility] HospitalComment on above:Performed By: #### CBC ####[facility] Xypdjgcfpe4223[address] [place], [place] [address]Dr.Mirandagallo JaseLymphocytes/100 WBC (Bld)26.9 %Normal 20.5-60.0The [facility] HospitalComment on above:Performed By: #### CBC ####[facility] Itpabhecmr0163[address] [place], [place] [address]Dr. Abhinav JaseMANUAL DIFF REQNONormalThe [facility] HospitalComment on above: Performed By: #### CBC ####[facility] Thhtkohykq7358[address] [place], [place] [address]Dr.Abhinav LagunaH (RBC) [Entitic mass]31.6 pgNormal 25.9-34.0The [facility] HospitalComment on above:Performed By: #### CBC ####[facility] Kmxpnldkak723[address] [place], [place] [address]Dr. Abhinav LagunaUPSTATE [facility] (RBC) [Mass/Vol]36.4 g/dLCritically high29.9-35.2The [facility] HospitalComment on above:Performed By: #### CBC ####[facility] Oiaamnaape9152[address] [place], [place] [address]Dr.Abhinav LagunaMCV (RBC) [Entitic vol]86.8 rTNbbjpx59.0-94.0The [facility] HospitalComment on above: Performed By: #### CBC ####[facility] Cmoniekqys1504[address] [place], [place] [address]Dr.Abhinav LagunaMONO #0.5 103/ulNormal0.3-0.8The [facility] HospitalComment on above:Performed By: #### CBC ####[facility] Boggkvaqtu5644[address] [place], [place] [address]Dr.Abhinav LagunaMonocytes/100 WBC (Bld)6.2 %Normal1.7-12.0The [facility] HospitalComment on above:Performed By: #### CBC ####[facility] Nstgodkhck3333[address] [place], [place] [address]Dr.Abhinav LagunaNEUT #5.2 103/ulNormal1.4-6.5The [facility] HospitalComment on above:Performed By: #### CBC ####[facility] Kldsrckkjj[address] [place], [place] [address]Dr.bAhinav LagunaNeutrophils/100 WBC (Bld)64.4 %Normal 43.0-75.0The [facility] HospitalComment on above:Performed By: #### CBC ####[facility] Ybmfgqnvlw5868[address] [place], [place] [address]Dr. Abhinav LagunaPlatelet mean volume (Bld) [Entitic vol]10.8 fLNormal9.5-13.5The [facility] HospitalComment on above:Performed By: #### CBC ####[facility] Saxgbkzzyz7714[address] [place], [place] [address]Dr.Abhinav CrzesSMW562 103/ul Vewhpz125-031Aqb [facility] HospitalComment on above:Performed By: #### CBC ####[facility] Kupzkpxxal767[address] [place], [place] [address]Dr. Abhinav ChangRBC4.40 106/ulCritically low4.70-6.10The [facility] HospitalComment on above:Performed By: #### CBC ####[facility] Xx[address]qtkpgn[address] [place] [address]Dr.Abhinav ChangWBC8.0 103/ulNormal4.0-11.0The [facility] HospitalComment on above:Performed By: #### CBC ####[facility] C[address]jviw[address] [place] [address]Dr.Abhinav ChangPOINT OF CARE GLUCOSEon 42-35-2723Jgzjtus [Mass/Vol]360 mg/dLCritically xuum71-889Vww [facility] HospitalComment on above:Performed By: #### POCGLUC ####[facility] Odxfhkjfgg6142[address] [place], [place] [address]Dr. Abhinav ChangPROF CHEM 8 (BAS METB)on 76-18-0664Wpqgy gap [Moles/Vol]13.6 mmol/LNormalThe [facility] HospitalComment on above:Performed By: #### BMP ####[facility] Mizwtgaeid8883[address] [place], [place] [address]Dr.Abhinav ChangCalcium [Mass/Vol]9.1 mg/dLNormal8.5-10.1The [facility] HospitalComment on above:Performed By: #### BMP ####[facility] Yxqcmcskxm6045[address] [place], [place] [address]Dr.Abhinav ChangChloride [Moles/Vol]102 mmol/SZfpgbd01-199Drq [facility] HospitalComment on above:Performed By: #### BMP ####[facility] Hvtpwtjbgh[address] [place] [address]Dr.Abhinav ChangCO2 [Moles/Vol] 21.9 mmol/VWueswo29.0-32.0The [facility] HospitalComment on above:Performed By: #### BMP ####[facility] Hkotvetzay75[address] [place], [place] [address]Dr.Abhinav ChangCreatinine [Mass/Vol]0.89 mg/dLNormal0.70-1.30The [facility] HospitalComment on above:Performed By: #### BMP ####[facility] Rubhsvivcc5814[address] [place], [place] [address]Dr.Yilan ChangEGFR-AF COLOMBIAN>60Normal>=60The [facility] HospitalComment on above:Performed By: #### BMP ####[facility] Ksmijdkzbc8[address] [place], [place] [address]Dr. Yilan ChangEGFR-NON AF COLOMBIAN>60Normal>=60The [facility] HospitalComment on above:Performed By: #### BMP ####[facility] Bcmcfaztcb[address] [place], [place] [address]Dr.Yilan ChangGlucose [Mass/Vol]394 mg/dLCritically xpqo67-599Tjk [facility] Hospitalment on above:Performed By: #### BMP ####[facility] Frpqxvfpdy8401[address] [place], [place] [address]Dr. Yilan ChangPotassium [Moles/Vol]4.5 mmol/LNormal3.5-5.1[facility] Comment on above:Performed By: #### BMP ####[facility] Bbktsvorgw0828[address] [place], [place] [address]Dr.Yilan ChangSodium [Moles/Vol]133 mmol/L Critically tpq075-483Hzt [facility] Hospitalment on above:Performed By: #### BMP ####[facility] Xmkiiurosx7389[address] [place], [place] [address]Dr. Yilan ChangUrea nitrogen [Mass/Vol]21.0 mg/dLCritically high7.0-18.0The [facility] HospitalComment on above:Performed By: #### BMP ####[facility] Okqaclzute7008[address] [place], [place] [address]Dr.Yilan ChangUrea nitrogen/Creatinine [Mass ratio]23.6 mg/mgNormalThe [facility] HospitalComment on above:Performed By: #### BMP ####[facility] Rkehpjwcbb8177[address] [place], [place] [address]Dr.Yilan ChangACETONE SERUMon 45-30-8622OBQNIYV NegativeNormalNEGATIVEThe [facility] HospitalComment on above:Performed By: #### ACETON ####[facility] Aalwnxzeyh2099[address] [place], [place] [address]Dr. Abhinav LagunaCBC AUTO DIFFon 16-68-3918BSBA #0.1 103/ulNormal0.0-0.1The [facility] HospitalComment on above:Performed By: #### CBC ####[facility] Urpczweqqs5806[address] [place], [place] [address]Dr.Abhinav ChangBasophils/100 WBC (Bld)0.8 %Normal0.2-2.0The [facility] HospitalComment on above:Performed By: #### CBC ####[facility] Qkqwbgixxi8[address] [place], [place] [address]Dr.Abhinav ChangEO #0.2 103/ulNormal0.0-0.7The [facility] HospitalComment on above:Performed By: #### CBC ####[facility] Cngmvraulu7085[address] [place], [place] [address]Dr.Abhinav ChangEosinophils/100 WBC (Bld)1.9 %Normal 0.9-7.0The [facility] HospitalComment on above:Performed By: #### CBC ####[facility] Ldexmkubza9486[address] [place], [place] [address]Dr.Abhinav Laguna Erythrocyte distribution width (RBC) [Ratio]12.3 %Ejxeel43.0-15.0The [facility] HospitalComment on above:Performed By: #### CBC ####[facility] Slrewqhoiz2535[address] [place], [place] [address]Dr.Abhinav LagunaHematocrit (Bld) [Volume fraction]46.1 %Iwjhuq81.0-54.0The [facility] HospitalComment on above:Performed By: #### CBC ####[facility] Zuerdgooym5[address] [place], [place] [address]Dr.Abhinav LagunaHemoglobin (Bld) [Mass/Vol]17.0 g/dL Sndgbv47.0-18.0The [facility] HospitalComment on above:Performed By: #### CBC ####[facility] Axrjlijtku7917[address] [place], [place] [address]Dr. Abhinav LagunaIG #0.04 10e3/ulCritically high0.00-0.03The [facility] HospitalComment on above:Performed By: #### CBC ####[facility] S[address]zzjwqmv[address] [place] [address]Dr.Abhinav LagunaIG %0.4 %Normal0.0-0.5The [facility] HospitalComment on above:Performed By: #### CBC ####[facility] Pdyqjijtva1833[address] [place], [place] [address]Dr.Abhinav LagunaLYMPH #2.5 103/ulNormal1.2-3.8The [facility] HospitalComment on above:Performed By: #### CBC ####[facility] Davcscwbih7378[address] [place], [place] [address]Dr. Abhinav Hernandezmphocytes/100 WBC (Bld)27.4 %Qydvvb30.5-60.0[facility] Comment on above:Performed By: #### CBC ####[facility] Kuputjzhho3064[address] [place], [place] [address]Dr.Abhinav LagunaMANUAL DIFF REQNONormalThe [facility] HospitalComment on above:Performed By: #### CBC ####[facility] Zvvxdytqut4707[address] [place], [place] [address]Dr.Abhinav LagunaGENEVA [facility] (RBC) [Entitic mass]31.7 zeFrudat55.9-34.0The [facility] HospitalComment on above: Performed By: #### CBC ####[facility] Pvvkypizyc[address] [place], [place] [address]Dr.Abhinav LagunaUPSTATE UNIVERS[facility] (RBC) [Mass/Vol]36.9 g/dLCritically high29.9-35.2[facility] HospitalComment on above:Performed By: #### CBC ####[facility] Lbcpzefkvm5797[address] [place], [place] [address]Dr. Abhinav LagunaCURAHE[facility] [place] [facility] [place] ([place]BC) [Entitic vol]86.0 iDDntqgt75.0-94.0[facility] Comment on above:Performed By: #### CBC ####[facility] Bfkrpqslxe0743[address] [place], [place] [address]Dr.Abhinav LagunaMONO #0.6 103/ulNormal0.3-0.8 The [facility] HospitalComment on above:Performed By: #### CBC ####[facility] [address] [place] [address]Dr.Abhinav Laguna Monocytes/100 WBC (Bld)6.4 %Normal1.7-12.0The [facility] HospitalComment on above: Performed By: #### CBC ####[facility] Tuxn[address]nsdx[address] [place] [address]Dr.Yigallo ChangNEUT #5.7 103/ulNormal1.4-6.5The [facility] HospitalComment on above:Performed By: #### CBC ####[facility] Nluvumlnee[address] [place] [address]Dr.Abhinav LagunaNeutrophils/100 WBC (Bld)63.1 %Heeeof76.0-75.0The [facility] HospitalComment on above:Performed By: #### CBC ####[facility] Bumrneoege08[address] [place], [place] [address]Dr.Abhinav LagunaPlatelet mean volume (Bld) [Entitic vol]11.8 fLNormal9.5-13.5 The [facility] HospitalComduane l. waters hospital on above:Performed By: #### CBC ####[facility] Bfvbptporr58[address] [place], [place] [address]Dr.Mirandalan NgruwNCJ607 103/wrUttmre223-556Bmp [facility] HospitalComment on above:Performed By: #### CBC ####[facility] Xpnlznclkq3252[address] [place], [place] [address]Dr. Yilan ChangRBC5.36 106/ulNormal4.70-6.10The [facility] HospitalComment on above: Performed By: #### CBC ####[facility] Orsohovmgj[address] [place], [place] [address]Dr.Yilan ChangWBC9.0 103/ulNormal4.0-11.0The [facility] HospitalComment on above:Performed By: #### CBC ####[facility] Jbyiyiptfv[address] [place], [place] [address]Dr.Abhinav ChangCULTURE BLOODon 47-32-7064Xgvsomevuhh examination of blood, cultureCulture Observations: NO GROWTH AT 5 DAYS.NormalMercy Memorial HospitalComment on above:Performed By: #### BLDCX2 ####[facility] Mgfnrgkeuu04[address] [place], [place] [address]Qv. Abhinav ChangMicroscopic examination of blood, cultureCulture Observations: NO GROWTH AT 5 DAYS.NormalThe [facility] HospitalComment on above:Performed By: #### BLDCX1 ####[facility] Tweeorkbfu[address] [place], [place] [address]Dr. Abhinav ChangCovid-19 PCR (CVDTBH)on 96-54-8981GHNO-CoV-2 (COVID-19) RNA EVERT+probe Ql (Unsp spec)Not detectedNormalNOT DETECTEDThe [facility] Comment on above:Result Comment: When diagnostic [...] for this test is supported by the [place] of Health and Human Service's declaration that [...] no longer be used).Performed By: #### CVDTBH ####[facility] Oyeedeghii[address] [place], [place] [address]Dr. Yilan ChangER URINE PROFILEon 74-90-4928Tufguqhcq Ql (U)NegativeNormalNEGATIVEMercy Memorial Hospital Comment on above:Performed By: #### ERUR ####[facility] Rzuwtbjpfr67[address] [place], [place] [address]Dr. Yilan ChangClarity (U)CLEARNormalCLEAR [facility] HospitalComment on above:Performed By: #### ERUR ####[facility] Gquetvquxe38[address] [place], [place] [address]Dr. Yilan ChangColor (U)LT. YELLOWNormalYELLOWCleveland Clinic South Pointe Hospital HospitalComment on above:Performed By: #### ERUR ####[facility] Yeetcwfrfz39[address] [place], [place] [address]Dr. Yilan ChangERUAHDA micrscopic examination will be performed if indicated.NormalThe [facility] HospitalComment on above:Performed By: #### ERUR ####[facility] Nlitsiagwy[address] [place], [place] [address]Dr. Yilan ChangGlucose Ql (U)>1000AbnormalNEGATIVECleveland Clinic South Pointe Hospital HospitalComment on above:Performed By: #### ERUR ####[facility] Ijzubthzps[address] [place], [place] [address]Dr. Yilan ChangHemoglobin Ql (U)NegativeNormalNEGATIVE [facility] HospitalComment on above:Performed By: #### ERUR ####[facility] [address] [place], [place] [address]Dr. Yilan Laguna Ketones Ql (U)NegativeNormalNEGATIVEMercy Memorial HospitalComment on above: Performed By: #### ERUR ####[facility] [address] [place], [place] [address]Dr. Yilan ChangLEUKOCYTESNegativeNormalNEGATIVECleveland Clinic [facility] HospitalComment on above:Performed By: #### ERUR ####[facility] [address] [place], [place] [address]Dr. Yilan ChangNitrite Ql (U) NegativeNormalNEGATIVEMercy Memorial HospitalComment on above:Performed By: #### ERUR ####[facility] [address] [place], [place] [address]Dr. Yilan ChangpH (U)6.5 [pH]Normal5-9[facility] HospitalComment on above:Performed By: #### ERUR ####[facility] [address] [address]Dr. Yilan ChangSPEC GRAVITY1.572Knqkje4.005-<=1.025The Grant HospitalComment on above:Performed By: #### ERUR ####[facility] [address] [address]Dr. Yilan ChangUA PROTEIN NegativeNormalNEGATIVE/ TRACEThe Grant HospitalComment on above:Performed By: #### ERUR ####[facility] F[address]olb[address] [address]Dr. Yilan ChangUR MICRO INDNOT INDICATEDNormalThe Grant HospitalComment on above:Performed By: #### ERUR ####[facility] Cfjvlitagy[address] [address]Dr. Yilan ChangUrobilinogen Qn (U)1.0 {Marshall'U}/dL Normal0.2 - 1.0The Grant HospitalComment on above:Performed By: #### ERUR ####[facility] Zmxfrqtrxg[address] [place], [place] [address]Dr. Yilan ChangLACTATE/LACTIC ACIDon 98-84-5184Bvqdiml [Moles/Vol]1.2 mmol/LNormal 0.4-1.9The [facility] HospitalComment on above:Performed By: #### LACT ####[facility] Gezhmftiun[address] [place], [place] [address]Dr. Yilan ChangLactate [Moles/Vol]1.7 mmol/LNormal0.4-1.9[facility] Comment on above:Performed By: #### LACT ####[facility] Pbdreuwstn[address] [place], [place] [address]Dr. Yilan ChangPH VENOUS BLOODon 02-08-2022 PCO2 PSVTVM29.3 tzNqZobnlf01.0-52.0The [facility] HospitalComment on above: Performed By: #### PHVEN ####[facility] Fqfunexlji[address] [place], [place] [address]Dr. Yilan ChangpH VENOUS7.765Ohwwsb4.330-7.430The [facility] HospitalComment on above:Performed By: #### PHVEN ####[facility] Fjskedovzo[address] [place], [place] [address]Dr. Yilan ChangPOINT OF CARE GLUCOSEon 89-83-5174Bajzgbi [Mass/Vol]198 mg/dLCritically gzzt73-103ClmMercy Memorial HospitalComduane l. waters hospital on above:Performed By: #### POCGLUC ####[facility] Mrbqzbdsjp3[address] [place], [place] [address]Dr. Abhinav Laguna Glucose [Mass/Vol]303 mg/dLCritically sjqo31-968JahMercy Memorial HospitalComduane l. waters hospital on above:Performed By: #### POCGLUC ####[facility] Gtperzyzsx7935[address] [place], [place] [address]Dr. Yilan ChangGlucose [Mass/Vol]503 mg/dLCritically cmhr79-821LesMercy Memorial HospitalComduane l. waters hospital on above:Result Comment: Will Repeat Test Performed By: #### POCGLUC ####[facility] Wygiatsoix[address] [place], [place] [address]Dr. Yilan ChangGlucose [Mass/Vol]538 mg/dLCritically ucxt03-692IrlFirelands Regional Medical [facility] on above:Result Comment: Previously ConfirmedPerformed By: #### POCGLUC ####[facility] Ilfkmuuiqy[address] [place], [place] [address]Dr. Yilan ChangGlucose [Mass/Vol]594 mg/dL Critically vmqd45-688YzhFirelands Regional Medical Center South [facility] on above:Result Comment: Will Repeat TestPerformed By: #### POCGLUC ####[facility] Krbqrolqyo[address] [place], [place] [address]Dr. Yilan ChangPOCGLUC>600Critically rsgr01-084 The [facility] HospitalComduane l[facility] on above:Result Comment: Result Not Confirmed Performed By: #### POCGLUC ####[facility] Vdghavepit[address] [place], [place] [address]Dr. Yilan ChangPROF 14(COMP METB)on 07-16-4030Ymyiapg [Mass/Vol]3.5 g/dLNormal3.4-5.0Mer[facility] HospitalComduane l[facility] hospital on above:Performed By: #### CMP ####[facility] [address]wsykra[address] [id number].Yilan ChangAlbumin/Globulin [Mass ratio]0.9 {ratio}NormalThe [facility] on above:Performed By: #### CMP ####[facility] Rdidwqgiua[address] [place] [address]Dr.Yilan ChangALP [Catalytic activity/Vol]420 U/LCritically eytv99-998Uva [facility] on above: Performed By: #### CMP ####[facility] Rxxlbdzhid[address] [address]Dr.Yilan ChangALT [Catalytic activity/Vol]44 U/LNormal 16-63The [facility] HospitalComduane l. [facility] hospital on above:Performed By: #### CMP ####[facility] Zyfixdlxxp4978[address] [place], [place] [address]Dr.Yilan ChangAnion gap [Moles/Vol]13.5 mmol/LNormalThe [facility] HospitalComduane l. waters hospital on above:Performed By: #### CMP ####[facility] Nexvesuxqm1167[address] [place], [place] [address]Dr.Yilan ChangAST [Catalytic activity/Vol]18 U/XYqrpov23-67Pqx [facility] on above:Performed By: #### CMP ####[facility] Zrlszgawme0111[address] [place], [place] [address]Dr.Yilan ChangBilirubin [Mass/Vol]0.6 mg/dLNormal0.2-1.0The [facility] on above:Performed By: #### CMP ####[facility] Dijbhridim[address] [place], [place] [address]Dr.Yilan ChangCalcium [Mass/Vol]9.8 mg/dLNormal8.5-10.1The [facility] on above:Performed By: #### CMP ####[facility] Nmlpcykepx2873[address] [place], [place] [address]Dr.Yilan ChangChloride [Moles/Vol]90 mmol/LCritically fkf74-674Xet [facility] HospitalComduane l[facility] on above: Performed By: #### CMP ####[facility] Qrfzcpkogr[address] [place] [phone].Yilan ChangCO2 [Moles/Vol]26.7 mmol/LNormal 21.0-32.0The [facility] HospitalComment on above:Performed By: #### CMP ####[facility] Rtrgnavfhi65[address] [address]Dr. Yilan ChangCreatinine [Mass/Vol]1.12 mg/dLNormal0.70-1.30[facility] Comment on above:Performed By: #### CMP ####[facility] Huhbpefwtx7284[address] [place], [place] [address]Dr.Yilan ChangEGFR-AF COLOMBIAN>60Normal>=60 The [facility] HospitalComment on above:Performed By: #### CMP ####[facility] Rgrpcwsfxy9079[address] [place], [place] [address]Dr.Yilan ChangEGFR- NON AF COLOMBIAN>60Normal>=60The [facility] HospitalComment on above:Performed By: #### CMP ####[facility] Knziirkdpb6223[address] [place], [place] [address]Dr.Yilan ChangGlobulin (S) [Mass/Vol]3.8 g/dLNormalThMercy Health [facility] Comment on above:Performed By: #### CMP ####[facility] Onesllirnq5886[address] [place], [place] [address]Dr.Yilan ChangGlucose [Mass/Vol]756 mg/dL Critically jmat29-923Xvf [facility] HospitalComment on above:Performed By: #### CMP ####[facility] Nohogxwjfn2916[address] [place], [place] [address]Dr. Yilan ChangPotassium [Moles/Vol]5.2 mmol/LCritically high3.5-5.1The [facility] HospitalComment on above:Performed By: #### CMP ####[facility] Igmstyexiu5986[address] [place], [place] [address]Dr.Yilan ChangProtein [Mass/Vol]7.3 g/dLNormal6.4-8.2The [facility] HospitalComment on above:Performed By: #### CMP ####[facility] Qrjmhlhzft1465[address] [place], [place] [address]Dr.Abhinav ChangSodium [Moles/Vol]125 mmol/LCritically sbo264-608Mjh [facility] HospitalComment on above:Performed By: #### CMP ####[facility] Rgnqstkkyp3619[address] [place], [place] [address]Dr.Abhinav ChangUrea nitrogen [Mass/Vol]18.0 mg/dLNormal7.0-18.0The [facility] HospitalComment on above: Performed By: #### CMP ####[facility] Xxlsnjmxwg752[address] [place], [place] [address]Dr.Mirandalan ChangUrea nitrogen/Creatinine [Mass ratio] 16.1 mg/mgNormalThe [facility] HospitalComment on above:Performed By: #### CMP ####[facility] Qmfbngtdun1059[address] [place], [place] [address]Dr. Abhinav ChangCBC AUTO DIFFon 75-74-2065KOVO #0.1 103/ulNormal0.0-0.1The [facility] HospitalComment on above:Performed By: #### CBC ####[facility] Sjfkgiqtlk0008[address] [place], [place] [address]Dr.Abhinav ChangBasophils/100 WBC (Bld)0.7 %Normal0.2-2.0The [facility] HospitalComment on above:Performed By: #### CBC ####[facility] Fvwsevdpwc2199[address] [place], [place] [address]Dr.Yilan ChangEO #0.3 103/ulNormal0.0-0.7The [facility] HospitalComment on above:Performed By: #### CBC ####[facility] Kuszrixrtz1378[address] [place], [place] [address]Dr.Mirandalan ChangEosinophils/100 WBC (Bld)3.5 %Normal 0.9-7.0The [facility] HospitalComment on above:Performed By: #### CBC ####[facility] Sliyelixqj6978[address] [place], [place] [address]Dr.Abhinav Laguna Erythrocyte distribution width (RBC) [Ratio]12.2 %Ouokcj26.0-15.0The [facility] HospitalComment on above:Performed By: #### CBC ####[facility] Pflkjbiycf9769[address] [place], [place] [address]Dr.Abhinav LagunaHematocrit (Bld) [Volume fraction]44.0 %Eayxep20.0-54.0The [facility] HospitalComment on above:Performed By: #### CBC ####[facility] Thfbctzmxm8079[address] [place], [place] [address]Dr.Abhinav LagunaHemoglobin (Bld) [Mass/Vol]15.4 g/dL Vkhhii29.0-18.0The [facility] HospitalComment on above:Performed By: #### CBC ####[facility] Iufxchyoru8658[address] [place], [place] [address]Dr. Abhinav ChangIG #0.02 10e3/ulNormal0.00-0.03The [facility] HospitalComment on above: Performed By: #### CBC ####[facility] Dipkvyvwpo9515[address] [place], [place] [address]Dr.Abhinav ChangIG %0.2 %Normal0.0-0.5The [facility] HospitalComment on above:Performed By: #### CBC ####[facility] Ajoztbxywe0565[address] [place], [place] [address]Dr.Abhinav LagunaLYMPH #3.0 103/ulNormal1.2-3.8The [facility] HospitalComment on above:Performed By: #### CBC ####[facility] Tcclsmenpw864[address] [place], [place] [address]Dr. Abhinav LagunaLymphocytes/100 WBC (Bld)34.8 %Rulxuy77.5-60.0[facility] Comment on above:Performed By: #### CBC ####[facility] Honwswzzlx8606[address] [place], [place] [address]Dr.Abhinav LagunaMANUAL DIFF REQNONormalThe [facility] HospitalComment on above:Performed By: #### CBC ####[facility] Slbpuvivwl8743[address] [place], [place] [address]Dr.Abhinav LagunaMCH (RBC) [Entitic mass]30.6 osOdxitz25.9-34.0The [facility] HospitalComment on above: Performed By: #### CBC ####[facility] Ycalysonmg7727[address] [place], [place] [address]Dr.Abhinav LagunaMCHC (RBC) [Mass/Vol]35.0 g/dLNormal 29.9-35.2The [facility] HospitalComment on above:Performed By: #### CBC ####[facility] Qbsumdrqzo333[address] [place], [place] [address]Dr. Abhinav LagunaMCV (RBC) [Entitic vol]87.5 rJOxlfnt35.0-94.0[facility] Comment on above:Performed By: #### CBC ####[facility] Uzltiuoekv416[address] [place], [place] [address]Dr.Abhinav LagunaMONO #0.7 103/ulNormal0.3-0.8 The [facility] HospitalComment on above:Performed By: #### CBC ####[facility] Nhwxwhwaft7208[address] [place], [place] [address]Dr.Abhinav Laguna Monocytes/100 WBC (Bld)8.0 %Normal1.7-12.0The [facility] HospitalComment on above: Performed By: #### CBC ####[facility] Mcnucpzwqm1226[address] [place], [place] [address]Dr.Abhinav LagunaNEUT #4.5 103/ulNormal1.4-6.5The [facility] HospitalComment on above:Performed By: #### CBC ####[facility] Iybnatjexd704[address] [place], [place] [address]Dr.Abhinav LagunaNeutrophils/100 WBC (Bld)52.8 %Athyaf08.0-75.0The [facility] HospitalComment on above:Performed By: #### CBC ####[facility] Qtoxdvpqcw8749[address] [place], [place] [address]Dr.Abhinav JasePlatelet mean volume (Bld) [Entitic vol]11.1 fLNormal9.5-13.5 The [facility] HospitalComment on above:Performed By: #### CBC ####[facility] [address]xl[address] [address]Dr.Abhinav WkhrhYLN503 103/zhGcypzv006-031Qqj [facility] HospitalComment on above:Performed By: #### CBC ####[facility] Vzt[address]rgweos[address] [address]Dr. Abhinav ChangRBC5.03 106/ulNormal4.70-6.10The [facility] HospitalComment on above: Performed By: #### CBC ####[facility] Scugllbhse[address] [address]Dr.Abhinav ChangWBC8.6 103/ulNormal4.0-11.0The [facility] HospitalComment on above:Performed By: #### CBC ####[facility] Tfzmrzcjxp4415[address] [place], [place] [address]Dr.Abhinav ChangPROF 14(COMP METB)on 47-58-3538Pxiuxcv [Mass/Vol]2.8 g/dLCritically low3.4-5.0The [facility] HospitalComment on above:Performed By: #### CMP ####[facility] Gxyeagiakb7414[address] [place], [place] [address]Dr.Abhinav Laguna Albumin/Globulin [Mass ratio]0.9 {ratio}NormalThe [facility] HospitalComment on above:Performed By: #### CMP ####[facility] Qsxgeftjqb6475[address] [place], [place] [address]Dr.Abhinav LagunaALP [Catalytic activity/Vol]146 U/L Critically xhsj69-997Dnj [facility] HospitalComment on above:Performed By: #### CMP ####[facility] Oocykxcaak0676[address] [place], [place] [address]Dr. Abhinav LagunaALT [Catalytic activity/Vol]47 U/UUibuxi65-02Loq [facility] Comment on above:Performed By: #### CMP ####[facility] Ulzvmvdcib5601[address] [place], [place] [address]Dr.Abhinav LagunaAnion gap [Moles/Vol]7.8 mmol/LNormalThe [facility] HospitalComment on above:Performed By: #### CMP ####[facility] F[address]jwfpe[address] [place] [id number]. Yilan ChangAST [Catalytic activity/Vol]22 U/CJbkkke62-71Klx [facility] Comment on above:Performed By: #### CMP ####[facility] Aqbxxgiscs[address] [place], [place] [address]Dr.Yilan ChangBilirubin [Mass/Vol]0.4 mg/dL Normal0.2-1.0The [facility] HospitalComment on above:Performed By: #### CMP ####[facility] Hwzzboxhsp[address] [place], [place] [address]Dr. Yilan ChangCalcium [Mass/Vol]8.8 mg/dLNormal8.5-10.1The [facility] HospitalComment on above:Performed By: #### CMP ####[facility] Lbslzjacru4584[address] [place], [place] [address]Dr.Yilan ChangChloride [Moles/Vol]103 mmol/LNormal 98-107The [facility] HospitalComment on above:Performed By: #### CMP ####[facility] Tegbxguiox109[address] [place], [place] [address]Dr.Yilan ChangCO2 [Moles/Vol]25.7 mmol/SRzkngj95.0-32.0The [facility] HospitalComment on above: Performed By: #### CMP ####[facility] Vkdppfwyij0174[address] [place], [place] [address]Dr.Yilan ChangCreatinine [Mass/Vol]0.79 mg/dLNormal 0.70-1.30The [facility] HospitalComment on above:Performed By: #### CMP ####[facility] Bxtyummycw[address] [place], [place] [address]Dr. Yilan ChangEGFR-AF COLOMBIAN>60Normal>=60The [facility] HospitalComment on above: Performed By: #### CMP ####[facility] Aqimddkwlz4553[address] [place], [place] [address]Dr.Yilan ChangEGFR-NON AF COLOMBIAN>60Normal>=60The [facility] HospitalComment on above:Performed By: #### CMP ####[facility] Ihrtgzxihi[address] [place] [address]Dr.Abhinav LagunaGlobulin (S) [Mass/Vol]3.1 g/dLNoLicking Memorial HospitalComment on above:Performed By: #### CMP ####[facility] Feteuavukq2616[address] [place], [place] [address]Dr.Abhinav ChangGlucose [Mass/Vol]194 mg/dLCritically ydez55-052Xbb [facility] HospitalComment on above:Performed By: #### CMP ####[facility] Halsztjclw6674[address] [place], [place] [address]Dr.Abhinav LagunaPotassium [Moles/Vol]3.5 mmol/LNormal3.5-5.1The [facility] HospitalComment on above: Performed By: #### CMP ####[facility] Vgblyfvbnb4939[address] [place], [place] [address]Dr.Abhinav ChangProtein [Mass/Vol]5.9 g/dLCritically low 6.1-8.2The [facility] HospitalComment on above:Performed By: #### CMP ####[facility] Yabqbfcunt6738[address] [place], [place] [address]Dr.Abhinav Laguna Sodium [Moles/Vol]133 mmol/LCritically ldl514-745Hbi [facility] HospitalComduane l[facility] on above:Performed By: #### CMP ####[facility] Sitddbghnq8825[address] [place], [place] [address]Dr.Mirandalan ChangUrea nitrogen [Mass/Vol]11.0 mg/dLNormal 7.0-18.0The [facility] HospitalComment on above:Performed By: #### CMP ####[facility] Bdtcwyookk5354[address] [place], [place] [address]Dr. Mirandalan ChangUrea nitrogen/Creatinine [Mass ratio]13.9 mg/mgNoLicking Memorial HospitalComduane l. waters hospital on above:Performed By: #### CMP ####[facility] Phoehmbzco3162[address] [place], [place] [address]Dr.Mirandalan ChangACETONE SERUMon 54-63-5293UBZHGTQAXYMMQpeygdhqUBBZDGGFZqp [facility] HospitalComment on above: Performed By: #### ACETON ####[facility] Wvvorsueba4225[address] [place], [place] [address]Dr. Abhinav LagunaCBC AUTO DIFFon 41-07-9096SZDV #0.1 103/ulNormal0.0-0.1The [facility] HospitalComment on above:Performed By: #### CBC ####[facility] Fcnjrqcuzr5153[address] [place], [place] [address]Dr. Abhinav ChangBasophils/100 WBC (Bld)0.8 %Normal0.2-2.0The [facility] HospitalComment on above:Performed By: #### CBC ####[facility] Nfwppbuezq1804[address] [place], [place] [address]Dr.Mirandalan ChangEO #0.2 103/ulNormal0.0-0.7The [facility] HospitalComment on above:Performed By: #### CBC ####[facility] Rznbrmzmci64[address] [place], [place] [address]Dr.Abhinav ChangEosinophils/100 WBC (Bld)1.6 %Normal0.9-7.0The [facility] HospitalComment on above:Performed By: #### CBC ####[facility] Ufkroqjuig1465[address] [place], [place] [address]Dr.Abhinav ChangErythrocyte distribution width (RBC) [Ratio]12.2 %Normal 11.0-15.0The [facility] HospitalComment on above:Performed By: #### CBC ####[facility] Xblpwoiwyo9687[address] [place], [place] [address]Dr. Abhinav ChangHematocrit (Bld) [Volume fraction]47.9 %Xoicfl60.0-54.0The [facility] HospitalComment on above:Performed By: #### CBC ####[facility] Zyakvmjslg698[address] [place], [place] [address]Dr.Abhinav ChangHemoglobin (Bld) [Mass/Vol]17.3 g/fGBoqmen56.0-18.0The [facility] HospitalComment on above: Performed By: #### CBC ####[facility] Ttnxglnrsr8316[address] [place], [place] [address]Dr.Abhinav LagunaIG #0.03 10e3/ulNormal0.00-0.03The [facility] HospitalComment on above:Performed By: #### CBC ####[facility] Y[address]emzbxwon[address] [address]Dr.Abhinav LagunaIG %0.3 %Normal 0.0-0.5The [facility] HospitalComment on above:Performed By: #### CBC ####[facility] Rpyspujezr[address] [place], [place] [address]Dr.Abhinav LagunaLYMPH #1.7 103/ulNormal1.2-3.8The [facility] HospitalComment on above:Performed By: #### CBC ####[facility] Wgtiztqwvz0112[address] [place], [place] [address]Dr.Abhinav Hernandezhocytes/100 WBC (Bld)18.9 %Critically low20.5-60.0The [facility] HospitalComment on above:Performed By: #### CBC ####[facility] Vrjkhlzdai[address] [place], [place] [address]Dr.Abhinav LagunaMANUAL DIFF REQ NONormalThe [facility] HospitalComment on above:Performed By: #### CBC ####[facility] Swrqdzwpig049[address] [place], [place] [address]Dr. Abhinav LagunaGEN[facility] (RBC) [Entitic mass]31.2 swWlwyiw05.9-34.0[facility] Comment on above:Performed By: #### CBC ####[facility] Kivnhhqypg670[address] [place], [place] [address]Dr.Abhinav LagunaUPSTATE UNIV[facility] (RBC) [Mass/Vol]36.1 g/dL Critically high29.9-35.2The [facility] HospitalComment on above:Performed By: #### CBC ####[facility] Zkrhamxnkl4979[address] [place], [place] [address]Dr.Abhinva LagunaCURAHE[facility] [place] [facility] [place]BC) [Entitic vol]86.5 gKGeqehy02.0-94.0The [facility] HospitalComment on above:Performed By: #### CBC ####[facility] Biwxfgvonx[address] [place], [place] [address]Dr.Yilan ChangMONO #0.5 103/ulNormal0.3-0.8The [facility] HospitalComment on above:Performed By: #### CBC ####[facility] L[address]scdlhpuo[address] [place] [address]Dr. Yilan ChangMonocytes/100 WBC (Bld)5.6 %Normal1.7-12.0[facility] Comment on above:Performed By: #### CBC ####[facility] Wzbuiynoge[address] [address]Dr.Yilan ChangNEUT #6.6 103/ulCritically high1.4-6.5The [facility] HospitalComment on above:Performed By: #### CBC ####[facility] Wznelrouzc254[address] [place], [place] [address]Dr. Yilan ChangNeutrophils/100 WBC (Bld)72.8 %Jfupzc48.0-75.0[facility] Comment on above:Performed By: #### CBC ####[facility] Xyptypyhte9172[address] [place], [place] [address]Dr.Yilan ChangPlatelet mean volume (Bld) [Entitic vol]11.3 fLNormal9.5-13.5The [facility] HospitalComment on above: Performed By: #### CBC ####[facility] Ktqsoreqfn7943[address] [place], [place] [address]Dr.Yilan LmgunFQG866 103/kdXoogrd573-787Rwe [facility] HospitalComment on above:Performed By: #### CBC ####[facility] Yrluoyqoms[address] [place], [place] [address]Dr.Yilan ChangRBC5.54 106/ul Normal4.70-6.10The [facility] HospitalComment on above:Performed By: #### CBC ####[facility] Xtafugavyj400[address] [place], [place] [address]Dr. Yilan ChangWBC9.1 103/ulNormal4.0-11.0The [facility] HospitalComment on above: Performed By: #### CBC ####[facility] S[address]cogzcgs[address] [place], [place] [address]Rv.Abhinav ChangCovid-19 PCR (CVDTB)on 12-18-2021 SARS-CoV-2 (COVID-19) RNA EVERT+probe Ql (Unsp spec)Not detectedNormalNOT DETECTED The [facility] HospitalComment on above:Result Comment: When diagnostic testing is negative, the possibility of a false negative should be considered inthe context of a patient's recent exposures and the presence of clinical signs and sympt omsconsistent with SARS-CoV-2.This test is not yet approved or cleared by the [place] Food and Drug Administration (FDA).This test was developed by [employer], [place], [place]. The performance characteristics ofthis test were validated by [facility]. The results arenot intended to beused as the sole means for clinical diagnosis or patient management decisions. The [facility] is authorized under Clinical Laboratory Improvement [...] for this test is supported by the [place] of Health and Human Service's declaration that [...] no longer be used).Performed By: #### CVDTB ####[facility] Qxkohlfnbu9[address] [place], [place] [address]Bd. Abhinav ChangER URINE PROFILEon 37-02-9410Iiprmjzuw Ql (U)NegativeNormal NEGATIVEThe [facility] HospitalComment on above:Performed By: #### ERUR ####[facility] Aofbalzfge0542 [place], [place] [address]Ul. Mirandalan ChangClarity (U)CLEARNormalCLEARThe [facility] HospitalComment on above: Performed By: #### ERUR ####[facility] Vqpqtnncfr[address] [place] [address]Dr. Yilan ChangColor (U)LT. YELLOWNormalYELLOWMercy Memorial HospitalComment on above:Performed By: #### ERUR ####[facility] Gmaofefffs8[address] [place], [place] [address]Dr. Yilan ChangERUAHDA micrscopic examination will be performed if indicated.NormalThe [facility] HospitalComment on above:Performed By: #### ERUR ####[facility] Hwuxclapru69[address] [place], [place] [address]Dr. Yilan ChangGlucose Ql (U) >1000AbnormalNEGATIVEMercy Memorial HospitalComment on above:Performed By: #### ERUR ####[facility] Qtzgssqwkp2976[address] [place], [place] [address]Dr. Yilan ChangHemoglobin Ql (U)NegativeNormalNEGATIVEThe [facility] Comment on above:Performed By: #### ERUR ####[facility] Gpjbjpzwbz7016[address] [place], [place] [address]Dr. Yilan ChangKetones Ql (U)TRACEAbnormal NEGATIVECleveland Clinic South Pointe Hospital HospitalComment on above:Performed By: #### ERUR ####[facility] Legyfsofgo0825[address] [place], [place] [address]Dr. Yilan ChangLEUKOCYTESNegativeNormalNEGATIVEMercy Memorial HospitalComment on above:Performed By: #### ERUR ####[facility] Vywrwrykqp4[address] [place], [place] [address]Dr. Yilan ChangNitrite Ql (U)NegativeNormalNEGATIVEMercy Memorial HospitalComment on above:Performed By: #### ERUR ####[facility] Dhjkcfpsms[address] [place], [place] [address]Dr. Yilan ChangpH (U)6.5 [pH] Normal5-9Mercy Memorial HospitalComment on above:Performed By: #### ERUR ####[facility] Sroniughnx74[address] [place], [place] [address]Dr. Yilan ChangSPEC GRAVITY<=1.159Wnhxzzcl3.005-<=1.025The [facility] HospitalComment on above:Performed By: #### ERUR ####[facility] Lclogvixdf9686[address] [place], [place] [address]Dr. Yilan ChangUA PROTEINNegativeNormalNEGATIVE/ TRACE The [facility] HospitalComment on above:Performed By: #### ERUR ####[facility] Qaspibihpd5533[address] [place], [place] [address]Dr. Yilan ChangUR MICRO INDNOT INDICATEDNormalThe [facility] HospitalComment on above:Performed By: #### ERUR ####[facility] Gxohgvqpcb09[address] [place], [place] [address]Dr. Yilan ChangUrobilinogen Qn (U)0.2 {Marshall'U}/dLNormal0.2 - 1.0The [facility] HospitalComment on above:Performed By: #### ERUR ####[facility] Wsgprqexhq40[address] [place], [place] [address]Dr. Yilan ChangPH VENOUS BLOODon 89-61-4792VTF3 JBXOIA71.4 ecKuKtbyay58.0-52.0[facility] Comment on above:Performed By: #### PHVEN ####[facility] Fzuawquczt[address] [place], [place] [address]Dr. Yilan ChangpH VENOUS7.385Normal 7.330-7.430Mercy Memorial HospitalComment on above:Performed By: #### PHVEN ####[facility] Wvbctqoed[address] [place], [place] [address]Dr. Abhinav [facility] CARE GLUCOSEon [id number] [Mass/Vol]363 mg/dL Critically nefv41-653YamMercy Memorial HospitalComment on above:Performed By: #### POCGLUC ####[facility] Qs[address]wtasdah[address] [place], [place] [address]Dr. Yilan ChangGlucose [Mass/Vol]453 mg/dLCritically uszd17-905HgxMercy Memorial HospitalComment on above:Performed By: #### POCGLUC ####[facility] F[address] [place], [place] [address]Dr. Mirandalan ChangGlucose [Mass/Vol]444 mg/dLCritically bkzk59-855Gnz [facility] HospitalComment on above: Performed By: #### POCGLUC ####[facility] Ybfiztkbtj[address] [place], [place] [address]Dr. Abhinav ChangGlucose [Mass/Vol]462 mg/dLCritically iief13-321Ack [facility] HospitalComment on above:Performed By: #### POCGLUC ####[facility] Kvcdzwvbma[address] [place], [place] [address]Dr. Yigallo ChangPOCGLUC>600Critically immm89-814Xtp [facility] HospitalComment on above:Result Comment: Lab Draw OrderedPerformed By: #### POCGLUC ####[facility] Nxmvudbcrg[address] [place], [place] [address]Dr. Abhinav Laguna POCGLUC>600Critically pdxi02-270Xvs [facility] HospitalComment on above:Result Comment: Lab Draw OrderedPerformed By: #### POCGLUC ####[facility] Fhquynocaa[address] [place], [place] [address]Dr. Mirandalan ChangPROF 14(COMP METB)on 32-98-5903Nczxbnh [Mass/Vol]3.4 g/dLNormal3.4-5.0[facility] Comment on above:Performed By: #### CMP ####[facility] Phsubfzklr[address] [place], [place] [address]Dr.Abhinav ChangAlbumin/Globulin [Mass ratio] 0.9 {ratio}NormalMercy Memorial HospitalComment on above:Performed By: #### CMP ####[facility] [address]qpoie[address] [place], [place] [address]Dr. Mirandalan ChangALP [Catalytic activity/Vol]268 U/LCritically ypkt98-833Vaa [facility] HospitalComment on above:Performed By: #### CMP ####[facility] Vwsvencpzk[address] [place], [place] [address]Dr.Yilan ChangALT [Catalytic activity/Vol]56 U/AEzgrmd97-45Eri [facility] HospitalComment on above:Performed By: #### CMP ####[facility] Absjmrtcln[address] [place], [place] [address]Dr.Yilan ChangAnion gap [Moles/Vol]7.7 mmol/LNormalThe [facility] Comment on above:Performed By: #### CMP ####[facility] Hxakljgmvc[address] [place], [place] [address]Dr.Yigallo ChangAST [Catalytic activity/Vol]20 U/URjkoim09-01Yye [facility] HospitalComment on above:Performed By: #### CMP ####[facility] Vysjbumtbt[address] [place], [place] [address]Dr. Yilan ChangBilirubin [Mass/Vol]0.7 mg/dLNormal0.2-1.0[facility] Comment on above:Performed By: #### CMP ####[facility] Bhbobuypce[address] [place], [place] [address]Dr.Abhinav ChangCalcium [Mass/Vol]9.9 mg/dL Normal8.5-10.1The [facility] HospitalComment on above:Performed By: #### CMP ####[facility] Kdhpjframm[address] [place], [place] [address]Dr. Yigallo ChangChloride [Moles/Vol]91 mmol/LCritically cnn45-554Dry [facility] HospitalComment on above:Performed By: #### CMP ####[facility] Wceykujxpp[address] [place], [place] [address]Dr.Yigallo ChangCO2 [Moles/Vol] 28.0 mmol/ATcasxh33.0-32.0The [facility] HospitalComment on above:Performed By: #### CMP ####[facility] Llapvxidmf[address] [place], [place] [address]Dr.Yilan ChangCreatinine [Mass/Vol]1.15 mg/dLNormal0.70-1.30The [facility] HospitalComment on above:Performed By: #### CMP ####[facility] Omtlxwswov[address] [place], [place] [address]Dr.Yilan ChangEGFR-AF COLOMBIAN>60Normal>=60The [facility] HospitalComment on above:Performed By: #### CMP ####[facility] Ucjpnsrkxf[address] [place], [place] [address]Dr. Yilan ChangEGFR-NON AF COLOMBIAN>60Normal>=60The [facility] HospitalComment on above:Performed By: #### CMP ####[facility] Rvzcjzgypk[address] [place], [place] [address]Dr.Abhinav LagunaGlobulin (S) [Mass/Vol]3.9 g/dLNormalThe [facility] HospitalComment on above:Performed By: #### CMP ####[facility] Xhyfnnkijg[address] [place], [place] [address]Dr.Abhinav ChangGlucose [Mass/Vol]640 mg/dLCritically jvvv19-135Ioy [facility] HospitalComment on above: Performed By: #### CMP ####[facility] Sehqiahlom[address] [place], [place] [address]Dr.Abhinav ChangPotassium [Moles/Vol]4.7 mmol/LNormal 3.5-5.1The [facility] HospitalComment on above:Performed By: #### CMP ####[facility] Dumcoogsxt[address] [place], [place] [address]Dr.Abhinav Laguna Protein [Mass/Vol]7.3 g/dLNormal6.1-8.2The [facility] HospitalComment on above: Performed By: #### CMP ####[facility] Tvxpylwhck[address] [place], [place] [address]Dr.Yigallo ChangSodium [Moles/Vol]124 mmol/LCritically qqx668-674Xqo [facility] HospitalComment on above:Performed By: #### CMP ####[facility] Zakqveeelv[address] [place], [place] [address]Dr. Mirandalan ChangUrea nitrogen [Mass/Vol]17.0 mg/dLNormal7.0-18.0[facility] Comment on above:Performed By: #### CMP ####[facility] Furhzwxich[address] [place], [place] [address]Dr.Mirandalan ChangUrea nitrogen/Creatinine [Mass ratio]14.8 mg/mgNormalThe [facility] HospitalComment on above:Performed By: #### CMP ####[facility] C[address]vuiynxy[address] [place], [place] [address]DrNohemi Laguna Vital Signs Date TimeVital SignValuePerforming XgmbghqclRpdjphrj90-07-4882 10:25-0400 Diastolic blood irynaowp95 mm[Hg][facility]05-15-2025 10:25-0400Heart rate73 /[facility]05-15-2025 10:25-0400Respiratory rate14 /[facility]05-15-2025 10:25-9591NeM5% (BldA) [Mass fraction]96 %[facility] 12-29-2024 10:25-0400Systolic blood fniqzsrn946 mm[Hg][facility]05-15-2025 09:31-0400Inhaled oxygen flow rate4 L/[facility]05-15-2025 07:36-0400Body tczioc721.8 cmSt[facility]05-15-2025 07:36-0400Body pwvylefdkas57.4 [degF][facility]05-15-2025 07:36-0400Body fxasqe69.04 kgSt[address] [facility]12-19-2024 10:05-0500Diastolic blood ztedjphx19 mm[Hg][facility]12-19-2024 10:05-0500Heart rate77 /[facility]12-19-2024 10:05-0500Respiratory rate18 /[facility]12-19-2024 10:05-6569ZbS4% (BldA) [Mass fraction]97 %[facility]12-19-2024 10:05-0500Systolic blood cespwbfk124 mm[Hg][facility]12-19-2024 09:35-0500Body uynypengoqv25.6 [degF][facility]12-19-2024 07:40-0500Body bdgfuz616.34 cmSt[facility]12-19-2024 07:40-0500Body .[address]11-20-2024 14:17-0500Body .3 River Orlando MD Work Phone: [facility]11-20-2024 14:17-0500Body mass index (BMI) [Ratio]26.51 kg/m2Annmarie Orlando MD Work Phone: [facility]11-20-2024 14:17-0500Body kynfgy50.23 kgAnnmarie Orlando MD Work Phone: [facility]11-20-2024 14:17-0500Diastolic blood qoxfzyxj88 mm[Hg]Annmarie Orlando MD Work Phone: [facility]11-20-2024 14:17-0500Heart rate 82 /minAnnmarie Orlando MD Work Phone: [facility]11-20-2024 14:17-0500Systolic blood kosbexle816 mm[Hg]Annmarie Orlando MD Work Phone: [facility]11-07-2024 12:37-0500Body ipdnea233.8 cm[facility]11-07-2024 12:37-0500Body weight 83.[address] [facility]10-28-2024 09:31-0400Body .3 Dhara Méndez MD Work Phone: [facility]10-28-2024 09:31-0400Body mass index (BMI) [Ratio]26.08 kg/m9FdploLuca Méndez MD Work Phone: [facility]10-28-2024 09:31-0400Body .82 Christian Méndez MD Work Phone: [facility]10-21-2024 14:41-0400Body cynwwf278.3 Dhara Méndez MD Work Phone: [facility]10-21-2024 14:41-0400Body mass index (BMI) [Ratio]26.11 kg/p4EotihLuca Méndez MD Work Phone: [facility]10-21-2024 14:41-0400Body nyvzqrxfwge29.5 [degF]Luca Méndez MD Work Phone: [facility]10-21-2024 14:41-0400Body odayxo15.91 kgLuca Méndez MD Work Phone: [facility]09-26-2024 15:33-0400Body xdnegj043.3 Mariia Iraheta DO Work Phone: [facility]09-26-2024 15:33-0400Body mass index (BMI) [Ratio]25.61 kg/z2SbnpebBetsy Iraheta DO Work Phone: [facility]09-26-2024 15:33-0400Body ipbxxo92.28 kgBetsy Iraheta DO Work Phone: [facility]09-26-2024 15:33-0400Diastolic blood trduooed38 mm[Hg]Betsy Iraheta DO Work Phone: [facility]09-26-2024 15:33-0400Heart rate 85 /minSvick Iraheta DO Work Phone: [facility]09-26-2024 15:33-2729MrO8% (BldA) [Mass fraction]96 %Betsy Iraheta DO Work Phone: [facility]09-26-2024 15:33-0400Systolic blood hrizmzhy996 mm[Hg]Betsy Iraheta DO Work Phone: [facility]08-22-2024 13:02-0400Body wjdoac103.3 Dhara Méndez MD Work Phone: [facility]08-22-2024 13:02-0400Body mass index (BMI) [Ratio]21.76 kg/p5SzzvmLuca Méndez MD Work Phone: [facility]08-22-2024 13:02-0400Body raanys87.76 kgLuca Méndez MD Work Phone: [facility]03-04-2024 14:16-0500Heart rate 93 /Sobeida Evans MD Work Phone: [phone]03-04-2024 14:16-0500 Respiratory rate18 /Sobeida Evans MD Work Phone: [facility]03-04-2024 14:16-3615QnH0% (BldA) [Mass fraction]93 %Jay Evans MD Work Phone: [phone]03-04-2024 12:10-0500Body ifdcxvzfsly46.8 [degF]Jay Evans MD Work Phone: [phone]03-04-2024 12:10-0500Diastolic blood tpxozdbb76 mm[Hg]Jay Evans MD Work Phone: [phone] [place] Ubfeks62-85-0595 12:10-0500Systolic blood mstfopor861 mm[Hg]Jay Evans MD Work Phone: [phone]03-04-2024 03:14-0500Body mass index (BMI) [Ratio]21.73 kg/m0TafmqnJay Evans MD Work Phone: [phone]03-04-2024 03:14-0500Body .67 kgJay Evans MD Work Phone: [phone] [place] Ytvyri28-74-0055 01:51-0500Body iygxoq526.3 cmJay Evans MD Work Phone: [phone] [place], [place] [address]202-28-2024 22:26-0500Body .6 [degF]Jay Evans MD Work Phone: [phone]01-21-2024 22:33-0500Heart rate 98 /minLuna Carroll DO Work Phone: bon [facility]01-21-2024 22:18-0500Diastolic blood mm[Hg]Luna Carroll DO Work Phone: bon [facility]01-21-2024 22:18-0500Systolic blood iqmrwpmn343 mm[Hg]Luna Carroll DO Work Phone: bon [facility]01-21-2024 21:48-0500 Respiratory rate30 /minChjose juan Carroll DO Work Phone: [facility]-21-2024 20:25-0500Body icrlytrdalb87.59 [degF]Luna Carroll DO Work Phone: [facility]01-21-2024 20:25-2689QyE8% (BldA) [Mass fraction]94 %Luna Carroll DO Work Phone: bon [facility]07-18-2023 01:00-0400Diastolic blood crmzvjue19 mm[Hg]MD Julius Saldaña Jr Work Phone: [facility]07-18-2023 01:00-0400 Heart rate74 /minMD Julius Saldaña Jr Work Phone: [phone]-[facility]07-18-2023 01:00-0400 Respiratory rate12 /minMD Julius Saldaña Jr Work Phone: [phone]07-18-2023 01:00-0400 SaO2% (BldA) [Mass fraction]95 %MD Julius Saldaña Jr Work Phone: [facility]07-18-2023 01:00-0400 Systolic blood penniykg438 mm[Hg]MD Julius Saldaña Jr Work Phone: [facility]07-17-2023 21:22-0400 Body zuwcul378.34 cmMD Julius Saldaña Jr Work Phone: [facility]07-17-2023 21:22-0400 Body bejbdx08.2 kgMD Julius Saldaña Jr Work Phone: [facility]07-17-2023 20:24-0400 Body nayfxykrijt77.9 [degF]MD Julius Saldaña Jr Work Phone: [facility] Encounters Encounter DateEncounter TypeCare ProviderFacilselect medical [facility] northStart: 05-30-2025 End: 43-73-3093srchawrbmdZRYJHAdena Regional Medical Centertart: 05-03-2025 End: 66-31-6223Sxapzwtll department patient visitSSan Clemente Hospital and Medical Centertart: 12-31-2024 End: 54-77-5030fyxhbndnnjIZJRNAdena Regional Medical Centertart: 12-29-2024 End: 61-42-6674Djouheqsh to same day surgery [facility]Sur[facility] HamiltonStart: 12-29-2024 End: 22-90-3489rnjrstcjkpGPLMercy Hospital Work Phone: Start: 12-22-2024 End: 86-50-9778Ufsbpzu encounter procedureThe Surgical Hospital [facility]-Pre[facility]Surgical Testing Work Phone: Start: 12-22-2024 End: 70-52-5989ltdvenlscwOROMercy Hospital Work Phone: Start: 11-03-2024 End: 48-45-8039Mwqwdgbkk department patient visitSSan Clemente Hospital and Medical Centertart: 08-04-2024 End: 60-98-7019Gzqxorljq to same day surgery [facility]Sur[facility] CampusStart: 08-04-2024 End: 51-69-6222ccelkmihcjYntwcikwSuni MadridFacility:Bellevue Hospitaltart: 07-18-2024 End: 61-91-4693tjvvqqxrnmCOVHXR W [facility] Centertart: 07-07-2024 End: 47-88-6724jxgglyprsfCWGMercy Hospital Work Phone: Start: 07-07-2024 End: 02-73-5625Rvovjgrr [facility] DaytonSur[facility] HamiltonStart: 07-06-2024 End: 77-14-4444Ooalukdtj department patient visitSSan Clemente Hospital and Medical Centertart: 07-06-2024 End: 35-65-8933Hppzql outpatient new 45 minutesAnnmarie Orlando MD Work Phone: [facility] NeurologyComment on above: Learning disability (Primary Dx); History of subdural hematoma (post traumatic); History of substance abuse ([facility])Start: 07-06-2024 End: 87-82-3973ifvevuczrbTYJS [facility] Start: 06-23-2024 End: 44-83-9852Tnextjfp ReferredWayne Healthcare Main Campus Rep-Ijt-Rieabmsl Testing Work Phone: Start: 06-23-2024 End: 41-46-2074Grahega encounter procedureWayne Healthcare Main Campus Iow-Pgt-Zyodasow Testing Work Phone: Start: 06-23-2024 End: 06-32-8806aubdmyqohtSQI [facility] Work Phone: Start: 06-13-2024 End: 81-75-2043Eaglcy outpatient visit 15 minutesLuca Méndez MD Work Phone: [facility] Ear, Nose and ThroatComment on above:Vocal fold paralysis, bilateral (Primary Dx); Dysphonia; Pharyngoesophageal dysphagiaStart: 06-13-2024 End: 70-07-9087itacfzdznmAPLTTGlendale Memorial Hospital and Health Center Ambulatory PPGStart: 06-06-2024 End: 79-77-6344Sfktsf outpatient visit 15 minutesLuca Méndez MD Work Phone: [facility] Ear, Nose and ThroatComment on above:Vocal fold paralysis, bilateral (Primary Dx); Dysphonia; Pharyngoesophageal dysphagia; Aspiration pneumonia of both lower lobes due to gastric secretions ([facility]) Start: 06-06-2024 End: 54-78-0694ddppnkdhdiOBIECSurgical Specialty Center at Coordinated Health Ambulatory PPGStart: 06-06-2024 End: 73-74-3079Ucjieswjb encounterCarkelle NavarreteBlanchard Valley Health System [facility] Neurology Comment on above:Sooner ApptStart: 05-12-2024 End: 69-35-9559Psflyy outpatient new 45 minutesDrewdylon Iraheta DO Work Phone: [facility] Physicians Pulmonary/Sleep MedicineComment on above:Recurrent aspiration pneumonia (CMS-HCC) (Primary Dx); Aspiration pneumonia of both lower lobes due to gastric secretions (CMS-HCC); Smoking addiction; Cigarette nicotine dependence, uncomplicated; Chronic obstructive pulmonary disease, unspecified COPD type (CMS-HCC)Start: 98-06-7265szseurtbvyYWIVZR [facility] Ambulatory PPGStart: 05-05-2024 End: 42-78-6657Xtudtcsaq encounterAngie Rodríguezandalusia health Physicians Neurology Start: 04-21-2024 End: 87-25-8531Ooamdabet encounterLuca Méndez MD Work Phone: [facility] Physicians Ear, Nose and ThroatStart: 04-07-2024 End: 41-50-9255Blplhf outpatient [facility] 45 minutesLuca Méndez MD Work Phone: [facility] Phys[facility] Ear, Nose and ThroatComment on above:Vocal fold paralysis, bilateral (Primary Dx); Toxic encephalopathy; Pharyngoesophageal dysphagia; Dysphonia; Aspiration pneumonia of both lower lobes due to gastric secretions ([facility]) Start: 04-07-2024 End: 47-18-8441xgapnonwkjRTILJOur Lady of Angels Hospital Ambulatory PPGStart: 10-14-2023 End: 94-33-7256Luapdlsvmu and management of inpatientDavid Cyr DO Work Phone: [facility] Comment on above:Aspiration pneumonia of both lower lobes, unspecified aspiration pneumonia type (CMS-HCC) (Primary Dx); Metabolic encephalopathyStart: 49-79-4812Dcjxyguic encounterDigestive Healthcare Consultants Work Phone: [facility] Physicians Digestive HealthcareStart: 28-54-2687Majbqegqy Result EncounterSjeffrey Hernandez NP Work Phone: NOQO External Department UnsolicitedStart: 09-29-2023 Clinisync Result EncounterSjeffrey Hernandez MANAGER WILLOW Work Phone: noms External Department UnsolicitedStart: 09-29-2023 End: 02-85-2871cftjqeqicuPKDEUFCommunity Health HospitalStart: 09-29-2023 End: 39-35-6220Owcoukhwvx hospital visit by physicianLONG [facility] LaboratoryStart: 46-69-4063Nrdmcpsvi Result EncounterKiantonia Steel MANAGER WILLOW Work Phone: noms External Department UnsolicitedStart: 09-17-2023 Clinisync Result EncounterKiantonia Steel MANAGER WILLOW Work Phone: noms External Department UnsolicitedStart: 09-17-2023 End: 55-46-6213hychzmsdgkTNJ C MILLEROhiohealth [facility]erington [facility] HospitalStart: 09-11-2023 End: 51-59-6318vcuhgmghstAIINJCCommunity Health HospitalStart: 09-06-2023 End: 99-23-8228Wgxbkqebu department patient visitCHJOSE JUAN [facility] HospitalStart: 09-06-2023 End: 00-37-5985Xzsyllhpi department patient visitChmilekevyn Hunter Glen DO Work Phone: [facility] EDComment on above:Generalized abdominal pain (Primary Dx)Start: 28-08-1913Sqqjizlive and management of inpatientMD Julius Saldaña Jr Work Phone: [facility] Work Phone: Start: 12-08-2022 End: 07-52-9117afdxiqpxnhLX SOPHIE TEJADAFacility:O8Mhwxn: 12-03-2022 End: 72-52-4597hcejjxrnluFO AKBAR SongFacility:L4Ezdxd: 11-27-2022 End: 05-98-8933dibgualxqvZY DEO ARDONFacility:C6Pwbby: 11-25-2022 End: 87-63-2756Bcjvwxtujv and management of inpatientDR BHAVYA NOLASCO Facility:U9Ffjle: 11-09-2022 End: 34-17-3757oelwxhbpqkIB ELIZABETH LLOYD .Facility:G4Qkava: 10-23-2022 End: 75-75-4760lajcngadgpUY ELIZABETH LLOYD .Facility:O9Tkomy: 10-23-2022 End: 64-74-0799udqgwqfizbPQNJCSR PROVIDERFacility:METROHealthStart: 09-08-2022 End: 11-87-0197xmrjlxhgvrPLDXAN H FAWWADFacility:F3Ufzks: 09-01-2022 End: 25-62-2613pmzssnwcpdZGAFPGGR CULLENFacility:H8Kakil: 08-21-2022 End: 37-07-4492bcagggbabuUU LA COOPER .Facility:H9Xwgxy: 08-12-2022 End: 19-46-4459vaubxfammsYXXNFM H FAWWADFacility:P8Qusbp: 07-31-2022 End: 79-26-9872vfwzinrznzJZDAGB H FAWWADFacility:B6Vfvjt: 07-28-2022 End: 95-79-3926qxxtqyertuVN FELIX Garcia WESTFacility:I3Pkuit: 02-08-2022 End: 54-71-4680uqhyjmrumjEWAS ASKARIFacility:J9Xbuin: 12-18-2021 End: 32-16-9475apfgnhuhxtDNKT ASKARIFacility:A7Kbeug: 32-55-9715Evwjlsq encounter procedureDigestive Consultants Work Phone: ProSam[facility] Hospitalca [facility] Procedures DateProcedureProcedure DetailPerforming ClinicianStart: 12-29-2024 Phacoemulsification of cataract with intraocular lens implantationStart: 11-12-6663Xbjuckhkflibnvznxui of cataract with intraocular lens implantation Start: 29-39-4732Gtjczbunlqfzfgohzpn of cataract with intraocular lens implantationStart: 24-74-7562Bectx depression screening assessmentAmin Branden Orlando MD Work Phone: Start: 54-05-6927Lavrtq-up visitFollow-upREHAB HONEY Start: 69-83-1647Qxbe bld gluc mntr dev cleared fda spec home useVenu Shayan Abdullahi MD Work Phone: Start: 12-43-9997Jvuthkawfd exam swallow function contrast studyKyle Marco Antonio Paulino [facility] Work Phone: Start: 28-35-6152Nfya bld gluc mntr dev cleared fda spec home useVenu Shayan Abdullahi MD Work Phone: Start: 48-30-8937Jblvueuzavbwm metabolic panelJanet D [facility] Work Phone: Start: 50-48-1045Tcfl bld gluc mntr dev cleared fda spec home useVenu Shayan Abdullahi MD Work Phone: Start: 93-94-2728Ovcp bld gluc mntr dev cleared fda spec home useNarinderu Shayan Abdullahi MD Work Phone: Start: 59-46-7077Sweq bld gluc mntr dev cleared fda spec home useVenu Shayan Abdullahi MD Work Phone: Start: 97-32-0257Kdnq bld gluc mntr dev cleared fda spec home useVenu Shayan Abdullahi MD Work Phone: Start: 50-18-2770Kyzenszkqjkbq metabolic panelJanet D [facility] Work Phone: Start: 10-17-2023 End: 65-82-5041Hnyybiwsfzbwn metabolic panelJanet D [facility] Work Phone: Start: 20-97-6554Obtc bld gluc mntr dev cleared fda spec home useVenu Shayan Abdullahi MD Work Phone: Start: 54-80-4425Ajcu bld gluc mntr dev cleared fda spec home useDesean Abdullahi MD Work Phone: Start: 73-60-1875Ashm transthorc r-t 2d w/wo m-mode rec f-up/lmtdKyle Marco Antonio Paulino 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-[employer]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 Work Phone: Start: 13-06-3347Yrcd bld gluc mntr dev cleared fda spec home useNarinderu Shayan Abdullahi MD Work Phone: Start: 31-08-3338Cuv brain brain stem w/o contrast materialKyrosas Paulino 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-[employer]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 Work Phone: Start: 82-99-6186Rggx bld gluc mntr dev cleared fda spec home useNarinderu Shayan Abdullahi MD Work Phone: Start: 18-26-5378Efaaxfzessdcm metabolic panelJanet Marco Antonio Toscano 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-[employer]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 Work Phone: Start: 67-73-3427Sfjc bld gluc mntr dev cleared fda spec home useDesean Abdullahi MD Work Phone: Start: 10-15-2023 End: 36-00-7748Xofmqnf bacterial blood aerobic w/id isolatesKyrosas Paulino 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-S[employer]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 Work Phone: Start: 05-22-1914Uryp bld gluc mntr dev cleared fda spec home useDesaen Abdullahi MD Work Phone: Start: 01-62-2443Ltgr bld gluc mntr dev cleared fda spec home useVenu Shayan Abdullahi MD Work Phone: Start: 09-76-9458Xidrr dip stick/tablet rgnt auto w/o microscopyDamima Cyr DO Work Phone: Start: 68-53-8659Jhcgvtplma exam chest single view Felix Cyr DO Work Phone: Start: 76-17-5258Zi head/brain w/o contrast material Felix Cyr DO Work Phone: Start: 54-13-3604DRMV/FLU A+B/RSV BY NAAT/MOLECULAR (M4RT COLLECTION TUBE)Felix Cyr DO Work Phone: Start: 51-95-7406Rmypy gases any combination ph pco2 po2 co2 gwp9Zcmmy Cyr DO Work Phone: Start: 60-25-7920Mygjuswlefnid metabolic panelDavid Cyr DO Work Phone: Start: 09-97-5177Syldcoa [Mass/volume] in Serum or PlasmaDavid Cyr DO Work Phone: Start: 22-93-1948Mhy routine ecg w/least 12 lds trcg only w/o i&rDavid Cyr DO Work Phone: Start: 70-44-9536DMI PRO BNPSherri Antonia Hernandez MANAGER [employer] Work Phone: Start: 20-23-2893Ckcdqsmcbdz peptideSherri Marti 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 - [employer]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 Work Phone: Start: 99-47-8366MQJ URINALYSISLa Steel MANAGER [employer] Work Phone: Start: 25-48-6827Fe abdomen & pelvis w/contrast materialChriskevyn Carroll DO Work Phone: Start: 93-22-4551Zdkxulducz microscopic onlyChriskevyn Carroll DO Work Phone: Start: 50-05-8498Lvxpc dip stick/tablet rgnt auto w/o microscopyChristina R Carroll DO Work Phone: Start: 17-66-5857Erofofgbwzlmx metabolic panel Luna Carroll DO Work Phone: Start: 19-48-8208Ccskrdgn tomography of abdomen and pelvis with contrastMD Julius Saldaña Jr Work Phone: Start: 64-93-6808WP cervical spine without contrastMD Julius Saldaña Jr Work Phone: Start: 96-13-1369DJ of head without contrastMD Julius Saldaña Jr Work Phone: Start: 73-35-8928DF of thorax with contrastMD Julius Saldaña Work Phone: Start: 31-91-9660Qeaaw chest X-rayMD Julius Saldaña Jr Work Phone: Start: 41-43-2572Knswz depression screening assessment [facility] Work Phone: Plan of Treatment DateCare ActivityDetailAuthorStart: 85-03-8193ZQgF,Tdap and Td Vaccines (2 - Td or Tdap)DTaP,Tdap and Td Vaccines (2 - Td or Tdap)[facility]Start: 51-61-0385YXhC/Tdap/Td vaccine (2 - Td or Tdap)DTaP/Tdap/Td vaccine (2 - Td or Tdap)[facility]Start: 79-68-6002Ggkhz BMI ScreeningAdult BMI ScreeningProSamaritan Hospitalca Health SystemStart: 01-91-3619Zjsyxtyeek ScreeningDepression ScreeningProMedica Health SystemStart: 02-48-2727Fkbtwaj ScreeningTobacco ScreeningProMedica Health SystemStart: 32-58-3884Rygtvzi ScreeningTobacco ScreeningProMedica Health SystemStart: 93-19-7199Adzln BMI ScreeningAdult BMI ScreeningProSamaritan Hospitalca Health SystemStart: 19-82-4979Toaod BMI ScreeningAdult BMI ScreeningProSamaritan Hospitalca Health SystemStart: 77-91-8164Eejnqsd ScreeningTobacco ScreeningProMedica Health SystemStart: 10-08-6871Auwweie ScreeningTobacco ScreeningProMedica Health SystemStart: 36-18-9161Mngbw BMI ScreeningAdult BMI ScreeningProSamaritan Hospitalca [facility] SystemStart: 17-82-8158Ueaedmk ScreeningTobacco ScreeningHenry County Hospitalca Health SystemStart: 12-29-2024 End: 31-57-1082KdhhlzbewBellevue Hospitaltart: 09-15-2024 End: 84-18-3234Ywouwfn encounter roqpldnqs08/30/2025 1:45 PM EST Office Visit [facility] [address] [place] [address] Betsy Iraheta DO [address] [facility] [address] [place] [address] [facility]/Sleep MedicineStart: 94-59-2860AibtalaxvBellevue Hospitaltart: 06-29-2024 End: 99-56-1395Moijhrv encounter jlithualp87/13/2024 1:00 PM EST Office Visit [facility] [address] [place] [phone] Glynn Moses MD [address] [facility], [address] [place] [address] [facility] NeurologyStart: 06-20-2024 End: 85-20-1176Zvwkabj encounter zsirkmysy33/04/2024 9:00 AM EST Office Visit [facility] [address] [place] [phone] Annmarie Graf MD [address] [place] [address] [address] [place] [address] [facility] NeurologyStart: 06-13-2024 End: 35-81-6517Pjsnewh encounter asdoytgrf00/28/2024 9:30 AM EDT Office Visit [facility] [address] [place] [address] Luca Méndez MD [address] [place] [address] [address] [place] [address] [facility] ThroatStart: 06-06-2024 End: 63-35-1049Ohfkakb encounter oqefltcvo69/21/2024 3:15 PM EDT Office Visit [facility] [address] [place] [address] Luca Méndez MD [address] [place] [address] [address] [place] [address] [facility] ThroatStart: 05-19-2024 End: 53-79-8762Vknrqdr encounter riycdqpee96/03/2024 1:00 PM EDT Office Visit [facility] [address] [place] [phone] Betsy Iraheta, DO [address] [facility] [address] [place] [address] [facility]/Sleep MedicineStart: 05-12-2024 End: 74-78-6135Myksqol encounter mmggxqxap75/26/2024 3:45 PM EDT Office Visit [facility] [address] [place] [phone] Betsy Iraheta, DO [address] [facility] [address] [place] [address] [facility]/Sleep MedicineStart: 05-12-2024 End: 79-36-9582QC Chest for screening WO contrastCT low dose lung screening (Annual) Imaging Routine Cigarette nicotine dependence, uncomplicated Expected: 05/12/2024, Expires: 05/12/2025[facility] Work Phone: Comment on above:Expected: 05/12/2024, Expires: 05/12/2025Start: 05-04-2024 End: 63-89-5098Bnugrzb encounter pceipaaro90/18/2024 8:30 AM EDT Appointment [facility] - Radiology [address] [place] [phone] [facility] - RadiologyStart: 04-22-2024 End: 93-42-8019KH Chest PA and LateralX-ray chest 2 views Imaging Routine Panlobular emphysema (CMS-HCC) Expected: 04/22/2024, Expires: 04/22/2025 [employer] Work Phone: Comment on above:Expected: 04/22/2024, Expires: 04/22/2025Start: 04-21-2024 End: 49-15-3108Kapmxnb encounter uhgoqsani72/05/2024 1:30 PM EDT Appointment [facility] - Pulmonary Function [address] [place] [place] [address] Betsy Iraheta, DO [address], [id number] [facility] - Pulmonary FunctionStart: 25-06-0473IDGNG-19 Vaccine ( season)COVID-19 Vaccine ()[facility] Start: 19-87-5769PJAJX-19 Vaccine ()COVID-19 Vaccine ()[facility] PO-MO SystemStart: 20-52-8998Cuoywimmm vaccination Influenza VaccineProOhiohealth Doctors Hospital SystemStart: 13-57-9023Vlbtimq Screening Tobacco ScreeningWVUMedicine Barnesville Hospital SystemStart: 04-07-2024 End: 81-55-3129ID videography Hypopharynx and Esophagus ViewsFluoroscopy swallow motility function Imaging Routine Aspiration pneumonia of both lower lobes due to gastric secretions ([facility]) Expected: 04/07/2024, Expires: 04/07/2025 [employer] Work Phone: Comment on above:Expected: 04/07/2024, Expires: 04/07/2025Start: 29-03-2773Ocsfd BMI ScreeningAdult BMI ScreeningWVUMedicine Barnesville Hospital SystemStart: 48-45-9474BYHNT-19 Vaccine ()COVID-19 Vaccine ()[facility]Start: 34-29-3683Xlfnjfgng vaccinationJORDAN VALLEY [facility] HealthcareStart: 28-43-4172Wphkriilf vaccinationFlu vaccine (#1) [facility]: 28-05-1146Aztbhywt admissionBellevue Hospitaltart: 98-72-5185Gengl chest X-rayXR chest 1V portableBellevue Hospitaltart: 64-92-5006GV Chest Single viewBellevue Hospitaltart: 74-66-0720natnkfmvlvGrdmgrvb:X2Gerch: 66-79-1364Rwdbcvpeua ScreeningDepression ScreeningScionHealthtart: 27-33-0266Gzhskkvnzlw Syncytial Virus (RSV) or age 60 yrs+ (1 - 1-dose 60+ series) Respiratory Syncytial Virus (RSV) or age 60 yrs+ (1 - 1-dose 60+ series)[facility] SYSTEMStart: 72-46-2804Gdhalogudrdxuk of varicella zoster vaccineZoster (Shingles) Vaccine (1 of 2)[facility]Healthtart: 55-33-6399Iuwwoveb vaccine (1 of 2)Shingles vaccine (1 of 2)[facility] SYSTEMStart: 12-28-1565Rxmofcenl for malignant neoplasm of colonBON [facility]Start: 58-93-9163Jeitp screening for proteinDiabetes: Urine Protein ScreeningChristian HospitalStart: 83-19-9584Zraae BMI Follow Up PlanAdult BMI Follow Up PlanScionHealthtart: 02-21-0027Syyvkvrx foot examination Diabetic Foot ExamProOhio Valley Hospitaltart: 69-92-3571Ocemhxjpv C screening Hepatitis C screenRIVERSIDE HEALTH SYSTEMStart: 02-96-1812UDB screeningHIV screenRIVERSIDE HEALTH SYSTEMStart: 19-02-9359Oqltxwwqfn ScreenDepression ScreenRIVERSIDE HEALTH SYSTEMStpine valley: 68-79-3304Efuradzamu ScreeningDepression ScreeningScionHealthtart: 23-41-6603Jwletbpi screeningDiabetes: Retinopathy ScreeningChristian HospitalStart: 79-70-1332Igvuw panelLipidsRIVERSIDE HEALTH SYSTEMStart: 72-36-9809Niaqillq screeningDiabetic Ophthalmology ExamScionHealthtart: 53-28-4157Tncmvlfiet A1c measurementDiabetes: Hemoglobin H7NVKVTChristian HospitalStart: 67-22-2746Buqizsynh for malignant neoplasm of colonJORDAN VALLEY [facility] HealthcareStart: 48-80-1883Ehgupcj CounselingTobacco Counseling [facility] SystemStart: 43-46-9260Zjejv screening for proteinUrine MicroalbuminAshtabula County Medical CenterBacteria identified in Blood by Aerobe cultureProMedica Work Phone: Patient EducationKnow your [facility] Work Phone: Patient [facility] Work Phone: Immunizations Immunization DateImmunizationNotesCare QobbaynxYqcrborg91-42-4767pyrmdun toxoid, reduced diphtheria toxoid, and acellular pertussis vaccine, [facility]04-05-2022COVID-19, mRNA, LNP-S, PF, 100mcg/0.5mL Dose [employer] Work Phone: [facility] Medical CenterLtcams49-04-1120oefnvcnyi, injectable, quadrivalent, preservative freeDigestive Consultants Work Phone: [facility] Medical CenterJvcsmb81-86-4343jsbncwmxpwzw polysaccharide vaccine, 23 valentDigestive Consultants Work Phone: [facility] Medical CenterBrdjzb50-58-5022uzjrxckyd virus vaccine, unspecified formulationLa Steel NP Work Phone: Christian HospitalYtljyseyqv88-83-2259occpmmn toxoid, reduced diphtheria toxoid, and acellular pertussis vaccine, adsorbedDigestive Consultants Work Phone: [facility] Medical CenterVuqkck35-56-5824ditsjpukq, injectable, quadrivalent, preservative freeDigestive Consultants Work Phone: [facility] Medical CenterEddiso28-54-8960jdkjummbx, injectable, quadrivalent, preservative freeDigestive Consultants Work Phone: [facility] Medical CenterRgpyyf19-63-5711hozsizctpcdr conjugate vaccine, 13 valentDigestive Consultants Work Phone: [facility] Medical CenterJauwhe66-70-3793idjkjdbacgha conjugate vaccine, 13 valentDigestive Consultants Work Phone: [facility] HospitalMobileum [facility] Payers DatePayer CategoryPayerPolicy [id number]-[id number] [id number] [id number] [employer] PLAN [id number] 2017-Present [address] [place] [address] 1.2.840.216218.1.13.693.2.7.3.139[id number] 2.16.840.1.316947.3.57[id number] 2.16.840.1.595478.3.57[id number] 2.16.840.1.336673.3.57[id number] 2.16.840.1.015038.3.579.2.06725-39-0829Jeactwn0309023 2.16.840.1.914357.3.579.2.63639-17-1495Smzwjqx1845953 2.16.840.1.542044.3.579.2.29757-98-8640Yprrkdd5324454 2.16.840.1.401629.3.579.2.64556-80-5239Rukpkqj3092677 2.16.840.1.387845.3.579.2.12983-81-1087Ptdefaw3915441 2.16.840.1.809779.3.579.2.93787-95-1614Gdannww8782724 2.16.840.1.840930.3.579.2.89184-97-8396Lumxwpc6966082 2.16.840.1.857252.3.579.2.82958-36-4146Wwoorth8837804 2.16.840.1.286064.3.579.2.01380-87-5266Nvwpdnm4876846 2.16.840.1.258963.3.579.2.38566-67-4536Gfqdify2040770 2.16.840.1.285680.3.579.2.33631-22-0532Iggguwd8092487 2.16.840.1.585588.3.579.2.44112-92-2230Nzxdmbs0550348 2.16.840.1.268630.3.579.2.85936-21-8552Pxklqci0937632 2.16.840.1.373136.3.579.2.99880-60-7128Scpusqa02260482 2.16.840.1.549827.3.579.2.71300-52-3845Iyqekgd44472893 2.16.840.1.600409.3.579.2.32671-25-1925Ctbvfvs47729019 2.16.840.1.929356.3.579.2.331468-73-6467Dmjvhdx36635224 2.16.840.1.715356.3.579.2.292080-19-2485Qpvxbuw57324726 2.16.840.1.130565.3.579.2.588943-45-8569Xdndlkb53604138 2.16.840.1.547269.3.579.2.764431-65-7171Bdcrahb04402842 2.16.840.1.205984.3.579.2.161233-27-8235Nwobhoj277544674 2..840.1.586006.3.579.2.052349-81-9656Yllpyaa681297518 2.16.840.1.967786.3.579.2.134108-44-5484Rykdjsa76770744 2..840.1.897749.3.579.2.800964-44-9759Wacbpzy037543854 2..840.1.058887.3.579.2.675419-70-1114Cyeilqx323643246 2..840.1.658247.3.579.2.165183-52-1474Vribdob84827749 2.840.1.012886.3.579.2.1286 [id number] 1960Unknown [id number] 2.16.840.1.554537.3.579.2.354Yaqiqdy30160996 2.840.1.901374.3.579.2.116Locnjks39041407 2..840.1.407159.3.579.2.531 Jrwbxxq89526193 2.840.1.629170.3.579.2.773Fewoaqv61681966 2.840.1.247531.3.579.2.531 Social History DateTypeDetailFacilityStart: 03-21-2020 End: 23-77-2516Gajxhdq smoking status NHISSmoker (finding)[facility] Hospitaltart: 31-16-0155Nhi Assigned At BirthMalUniversity Hospitals Ahuja Medical Centertart: 06-23-2024 End: 58-58-2923Llwiwbk smoking status NHISTobacco smoking consumption unknown [facility]: 12-17-2012 End: 25-22-6995Vijgvjs of Social functionRIVERSIDE HEALTH SYSTEMStart: 12-17-2012 End: 99-26-7787Ejycgfp use [facility] CenterStart: 79-29-2654Wgu Assigned At BirthNot on fileRIVERSIDE HEALTH SYSTEMStart: 08-17-1972 End: 59-33-8195Cfqtcrv smoking status NHISSmokes tobacco dailyNOMS Healthcare Start: 00-07-4972Nddhqpz of tobacco useCigarette SmokerNOMS HealthcareStart: 22-76-4628Afjvguf intakeLifetime non-drinker (finding)[facility] HealthcareStart: 62-36-9006Bnakkcp Pmribvv97-56 cigs a day.[facility] HealthcareStart: 06-24-2024 End: 91-75-5970RffTnws (finding)[facility]: 10-24-2022 End: 57-19-2292Drqvudp use and exposureFormer smokeless tobacco userAshtabula County Medical Center End: 25-92-4511Ysjqiwf of tobacco useChews TobaccoWVUMedicine Barnesville Hospital SystemStart: 04-15-2023 End: 40-69-5411Yyuwtix intakeEx-drinker (finding)[facility] Adolescent depression screening uvlfdllhyr5RhfLhctriAshtabula County Medical CenterHas the electric, gas, oil, or water company threatened to shut off services in your home in past 12Amsterdam Memorial Hospitaltart: 53-31-1739Mixmuxh use and exposureUser of smokeless tobaccoAshtabula County Medical Center Medical Equipment Procedure CodeEquipment CodeEquipment Original TextEquipment IdentifierDates Phacoemulsification of cataract with intraocular lens implantationPosterior- chamber intraocular lens, pseudophakic ()[id number] FDAStart: 21-31-2677Lkzynnscett Orthopaedic cement, non-medicated()[id number] FDA Start: each by abdominal subcutaneous route 5 (five) times a day. [id number]: 10-30-2022 End: 52-17-8700Xsozf blood sugars three times daily with meals.[id number]: 02-04-2021 End: 10-15-2023 Goals DatePatient GoalDesired Activity/StatePersonal health goalComment on above: Evaluation of progress towards goal: Plan to return home.Personal health goal Comment on above: Evaluation of progress towards goal: Pt plans to discharge to shelter facility.Personal health goalComment on above: Evaluation of progress towards goal: under assessment Clinical Notes 09-07-2023 to 05-03-2025 Note Date & GnbtEwwbPoxjvxvh10-85-7986 NoteCT CHEST WO CONT CLINICAL INFORMATION: Fall. [...] by Sandip Ball MD on 05/03/2025 5:52 [facility]MPUC [facility] 07-06-2024 History of Present illness Narrative* Annmarie Orlando MD - 07/06/2024 2:30 PM EST Images from the original note were not included. [address] [facility] [address] Patient: Akbar Byrnes Date of : 1960 [...] he's on them. Social history: Lives at [facility] (longterm) for the past year, prior to that he was living by himself Never . 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 Gait and Station: Walks slowly and [...] - 1.20 mg/dL Final METHOD TRACEABLE TO IDSC STANDARD Glucose 03/08/2024 260 (H) 65 - [...] if the patient's symptoms persist or worsen. [email or web address] Magnesium 03/08/2024 1.6 (L) 1.8 - 2.6 [...] This note was completed using a voice costume draper system. Every effort was made to ensure accuracy; however, inadvertent computerized costume draper errors may be present. Annmarie Orlando MD MPH [facility] Neurology documented in this encounterAshtabula County Medical Center10-28-2024 History of Present illness Narrative* Luca Méndez MD - 06/13/2024 9:30 AM EDT [facility] EAR, [facility]SE AND THROAT [address] [facility] [place] [facility] [address] SUBJECTIVE: Patient ID (1960): Akbar Byrnes is [...] healing L1-3 COPD (chronic obstructive pulmonary disease) ([facility]) Diabetes mellitus ([facility]) Fall from height of greater than [...] 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 I reviewed the PARAMEDIC SUPERVISOR note from October 2023, intubated and extubated [...] voice may best be served by a wrecker driver. Referral made to [facility], which is closer to his sister's home. Follow up pending above. Counseling given, management options discussed, all questions answered. Please note that parts of this chart were generated using voice recognition M*Youxinpai dictation software. Although every effort was made to ensure the accuracy of this automated costume draper, some errors in costume draper may have occurred. documented in this encounterAshtabula County Medical Center10-21-2024 Miscellaneous Notes* Telephone Encounter - Nuha Navarrete [...] - Toxic encephalopathy Best Contact for Patient: [phone] Méndez: [phone] Please Advise. * Telephone Encounter - Annmarie Orlando MD - 06/06/2024 3:33 PM EDT I can see them if there is any availability. * Telephone Encounter - Nuha Navarrete - 06/06/2024 3:33 PM EDT 1st Attempt: Investment Advisor called and left message for patient's to return call to clinic to schedulea sooner appointment with Dr. Otero. * Telephone Encounter - Maxine Jackson - 06/06/2024 3:33 PM EDT Patient is now scheduled on 06/20/[address] Otero documented in this encounterAshtabula County Medical Center10-21-2024 Telephone encounter Note* Telephone Encounter - Nuha [...] - Toxic encephalopathy Best Contact for Patient: [phone] Méndez: [phone] Please Advise. [facility] HospitalOrigin [facility] Solutions Rtcmoo26-96-2452 Telephone encounter Note* Telephone Encounter - Annmarie Orlando MD - 06/06/2024 3:33 PM EDT I can see them if there is any availability. [facility] HospitalJobinasecond Work Phone: [phone] Telephone encounter Note* Telephone Encounter - Nuha Navarrete - 06/06/2024 3:33 PM EDT 1st Attempt: Investment Advisor called and left message for patient's to return call to clinic to schedulea sooner appointment with Dr. Otero. [facility] HospitalGo[facility] Zero10-21-2024 Telephone encounter Note* Telephone Encounter - Maxine Jackson - 06/06/2024 3:33 PM EDT Patient is now scheduled on 06/20/[address] Otero [facility] PO-MO [id number] History of Present illness Narrative* Luca Méndez MD - 06/06/2024 3:[address] 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 I reviewed the PARAMEDIC SUPERVISOR note from October 2023, intubated and extubated [...] both lower lobes due to gastric secretions ([facility]) Plan: 63yo M with a history [...] this chart were generated using voice recognition M*Youxinpai dictation software. Although every effort was made to ensure the accuracy of this automated costume draper, some errors in costume draper may have occurred. documented in this encounterAshtabula County Medical Center09-26-2024 History of Present illness Narrative* Betsy Iraheta, DO - 05/12/2024 3:45 PM EDT Images from the original note were not included. [facility] Patient - Akbar Byrnes Age - 63 y.o. - 1960 Referring [...] extended care facility without any family or open winder. There are no documents from the facility or a medication list. Patient has no idea why he is here or what medications he takes and history is difficult to obtain. Pateint arrives from [facility] with no family or open winder. Unable to provide hisotry well and has [...] smokes 10 cigarettes per day at the [facility]. He started smoking at the age [...] is unclear given his residence in an [facility]. Last LDSCT was in 2020 ASSESSMENT [...] THis was printed RX and sent to [facility] for review. Discussed trachoestomy. Given ENT concerns and his chronic hypercapnia, this is a very reasonable thing to consider. Note recurrent aspiration despite what patient describes as dysphagia diet with thickened liquids. Uncertain how well this is followed however. We have requested information from [facility] facility with accurate med list. Will see back in clinic in 4 months or earlier if needed. The patient was encouraged to call me with any concerns prior. Thank you for allowing me to participate in your patient's care. Past Medical History: Diagnosis Date Closed fracture of transverse process of lumbar vertebra with routine healing L1-3 COPD (chronic obstructive pulmonary disease) ([facility]) Diabetes mellitus ([facility]) Fall from height of greater than [...] information and recommendations. Dr. Betsy Iraheta DO. [facility] Pulmonary & Critical Care Office: [phone] documented in this encounterBlanchard Valley Health System [facility] PO-MO [id number] Miscellaneous Notes* Telephone Encounter - Angie Anette - 05/05/2024 9:35 AM EDT Please ask the following questions to the new patient that you are schedulin. IS THIS DUE TO AN ACCIDENT? - no 2. IS THIS WORKER'S COMP? PLEASE VERIFY IF THIS IS WORKERS COMP AND DOCUMENT (We do not accept any new workers comp cases) - no 3. WHAT INSURANCE? - [place]icaid [place] 4. HAVE YOU EVER BEEN SEEN BY A NEUROLOGIST BEFORE? IF YES, WHO AND WHEN? IS THIS A SECOND OPINION? - unsure spoke to concrete handler at [facility] 5. ANY CHANCE OF NOW OR BEFORE YOUR APPOINTMENT? - n/a 6. OFFERED EDGAR FOR SOONER APPOINTMENT? - no 7. PATIENT IS SCHEDULED ON/WITH: - 06/29 at 1pm with 8. WHO CALLED TO SCHEDULE APPOINTMENT? - Farm Management Agent at [place] documented in this encounterAshtabula County Medical Center09-19-2024 Telephone encounter Note* Telephone Encounter - Angie [...] A SECOND OPINION? - unsure spoke to concrete handler at [facility] 5. ANY CHANCE OF NOW OR BEFORE YOUR APPOINTMENT? - n/a 6. OFFERED EDGAR FOR SOONER APPOINTMENT? - no 7. PATIENT IS SCHEDULED ON/WITH: - 06/29 at 1pm with 8. WHO CALLED TO SCHEDULE APPOINTMENT? - Farm Management Agent at [place] [facility]09-05-2024 Miscellaneous Notes* Telephone Encounter - Deandra Davis RN - 04/21/2024 1:13 PM EDT Received call from Dolores from ENT ([phone]) stating Dr Méndez requesting patient to be seen sooner d/t PNA and bilateral vocal fold paralysis. Investment Advisor spoke to Lydia at [facility] ([phone]) where patient resides ([facility]). Informed of above information and would be able to see patient on 05-05-24. Lydia declined d/t no transportation available. Investment Advisor offered 05-12-24 at 3:45 pm. Lydia agreeable. Investment Advisor attempted to contact ENT to update. Phone line answers and then silence. No response Will attach Dr Iraheta and Dr Méndez to note * Telephone Encounter - Betsy Iraheta DO - 04/21/2024 1:13 PM EDT Repeat CXR prior to appt please * Telephone Encounter - Deandra Davis RN - 04/21/2024 1:13 PM EDT Investment Advisor spoke to Lydia at [facility] and informed of need for CXR prior to appt on 05-12-24.Requested order to be faxed to [phone]. Lydia agreeable Faxed order * Telephone Encounter - Luca Méndez MD - 04/21/2024 1:13 PM EDT CXR ordered. Please fax to the number they requested. documented in this encounterAshtabula County Medical Center09-05-2024 Telephone encounter Note* Telephone Encounter - Deandra Davis RN - 04/21/2024 1:13 PM EDT Received call from Dolores from ENT ([phone]) stating Dr Méndez requesting patient to be seen sooner d/t PNA and bilateral vocal fold paralysis. Investment Advisor spoke to Lydia at [facility] ([phone]) where patient resides ([facility]). Informed of above information and would be able to see patient on 05-05-24. Lydia declined d/t no transportation available. Investment Advisor offered 05-12-24 at 3:45 pm. Lydia agreeable. Investment Advisor attempted to contact ENT to update. Phone line answers and then silence. No response Will attach Dr Iraheta and Dr Méndez to note [facility] PO-MO [id number] Telephone encounter Note* Telephone Encounter - Betsy Iraheta DO - 04/21/2024 1:13 PM EDT Repeat [facility]t [facility] Phone: [phone] Telephone encounter Note* Telephone Encounter - Deandra Davis RN - 04/21/2024 1:13 PM EDT Investment Advisor spoke to Lydia at [facility] and informed of need for CXR prior to appt on 05-12-24.Requested order to be faxed to [phone]. Lydia agreeable Faxed order [facility] PO-MO [id number] Telephone encounter Note* Telephone Encounter - Luca Méndez MD - 04/21/2024 1:13 PM EDT CXR ordered. Please fax to the number they requested. [facility] PO-MO [id number] Miscellaneous Notes* Telephone Encounter - Luca Méndez MD - 04/21/2024 8:43 AM EDT Patient is scheduled to see pulmonology one month from now. Can you please call them and ask for a sooner appointment? Patient has pneumonia and bilateral vocal fold paralysis. Please notify me afteryour conversation. Thank you. documented in this encounterAs[facility] Telephone encounter Note* Telephone Encounter - Luca Méndez MD - 04/21/2024 8:43 AM EDT Patient is scheduled to see pulmonology one month from now. Can you please call them and ask for a sooner appointment? Patient has pneumonia and bilateral vocal fold paralysis. Please notify me afteryour conversation. Thank you. [facility]08-22-[facility] History of Present illness Narrative* Luca Méndez MD - 04/07/2024 1:[address] 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 I reviewed the PARAMEDIC SUPERVISOR note from October 2023, intubated and extubated [...] Toxic encephalopathy - [facility] - [facility] [place], [place]; Future Pharyngoesophageal dysphagia - [facility] - [place], [place] Dysphonia Aspiration pneumonia of both lower lobes due to gastric secretions ([facility]) - Fluoroscopy swallow motility function; Future [...] this chart were generated using voice recognition M*Youxinpai dictation software. Although every effort was made to ensure the accuracy of this automated costume draper, some errors in costume draper may have occurred. documented in this encounterAshtabula County [facility] Center03-04-2024 Nurse Note* Amy Teran RN - 10/19/2023 4:28 PM EST Pt discharge initiated with attending provider, Pt/Family communicated with and updated regarding process on discharge as needed.dc paperwork given. Report called to [facility]. [facility]03-04-[facility] Nurse Note* Amy Teran RN - 10/19/2023 4:28 PM EST Pt discharge initiated with attending provider, Pt/Family communicated with and updated regarding process on discharge as needed.dc paperwork given. Report called to [facility]. * Tish Cyr RN - 10/15/2023 2:15 PM EST Patient had dose of zyprexa before MRI, patient was still unable to tolerate MRI/restless.Techs brought patient back to his room. Will attempt again tommorrow documented in this encounterAshtabula County Medical Center03-04-2024 Progress note* Discharge Planning Note - Ceci Rm - 10/19/2023 12:05 PM EST DISCHARGE PLANNING NOTE Updates sent to [facility] ([facility] Acute [facility]) (P# ; F# ) [facility]03-04-[facility]24 Miscellaneous Notes* Discharge Planning Note - Ceci Rm - 10/19/2023 12:05 PM EST DISCHARGE PLANNING NOTE Updates sent to [facility] ([facility] Post Acute [facility]) (P# ; F# ) * PT/OT/PARAMEDIC SUPERVISOR - Amy Soriano, OTR/L - 10/19/2023 11:55 AM EST Occupational Therapy CANCEL - Deferred attempted OT treatment, patient eating. * Discharge Planning Note - Roxanne Guerrero - 10/19/2023 10:44 AM EST DISCHARGE PLANNING NOTE Updates sent to [facility] ([facility]) (P# ; F# ) * Discharge Planning Note - OJ Marie - 10/19/2023 10:35 AM EST DISCHARGE PLANNING NOTE Follow-up Discharge Planning Progress Note Per RN during discharge transition rounds, barriers to discharge are: None DC Barrier: Await auth to return to [facility]. Discharge Plan: Return to [facility] when approved by insurance. Tasked to Transition Centerto send updates. 1045: Telephone call received from Anel with [facility] to inform she has auth for pt to return today. Request pt return at 4 PM of after. Staff updated. Tasked to Transition Center to send CRF, DC summary and ST VFSS. OJ Marie, 10/19/2023, 11:35 AM Care Navigation will continue to follow. * PT/OT/PARAMEDIC SUPERVISOR - Karin Tadeo PT - 10/19/2023 9:48 AM EST Physical Therapy Treatment Discharge Recommendations PT Recommendations: Half-Way Facility (vs ECF) Past Medical History: Diagnosis Date Closed fracture of transverse process of lumbar vertebra with routine healing L1-3 COPD (chronic obstructive pulmonary disease) ([facility]) Diabetes mellitus ([facility]) Fall from height of greater than 3 [...] RUIZ Equipment: non skid socks, rolling walker Telemetry/Real Estate Valuer: No Other: fall risk Pain Assessment Pain [...] Tadeo, PT Progressing 10/18/23 0727 Lanette Wheatley FILTER TANK TENDER Progressing 10/17/2343 Lanette Wheatley PTA Progressing Goal [...] Karin Tadeo PT Completed 10/18/23726 Lanette Wheatley, FILTER TANK TENDER Progressing Goal Note filed on 10/19/23947 by [...] hyperlipidemia Metabolic encephalopathy Altered mental status * PT/OT/PARAMEDIC SUPERVISOR - Hyacinth Tavares CCC-PARAMEDIC SUPERVISOR - 10/19/2023 9:35 AM EST Speech Therapy [...] strategies Medications: Crushed, In applesauce/puree Discharge Recommendations: assisted facility Plan Frequency: 2-3days/week Duration: 14 days Treatments/Modalities: Base of tongue retraction, Pharyngeal strengthening, Safety strategies Need for skilled Speech Language Pathology Services to address deficits in feeding/swallowing due to a status decline resulting from aspiration pneumonia of both lower lobes. Prognosis Services: Skilled PARAMEDIC SUPERVISOR services to address above deficits Prognosis/Potential: Fair Considerations: Cognition, Co-morbidities Assessment Baseline Assessment Additional Testing Results: Chest X-Ray, Computed Tomography Setting Prior to Admission: assisted facility Associated Problems: Coughing, Change in vocal [...] Dysphagia Problem: Swallowing Dates: Start: 10/15/23 Disciplines: PARAMEDIC SUPERVISOR Goal: LTG: Patient will maintain adequate nutrition/ hydration with optimum safety and efficiency of swallowing function of oral intake without overt signs/symptoms of aspiration for the highest appropriate diet level Dates: Start: 10/15/23 Expected End: 10/29/23 Disciplines: PARAMEDIC SUPERVISOR Goal: STG: Patient will tolerate therapeutic feeding trials of advanced textures with 90% accuracy with minimal cueing Dates: Start: 10/15/23 Expected End: 10/29/23 Disciplines: PARAMEDIC SUPERVISOR Goal: STG: Pt will participate in VFSS evaluation to further assess swallow efficiency and safe oral intake (Resolved) Dates: Start: 10/15/23 Expected End: 10/29/23 Resolved: 10/19/23 Disciplines: PARAMEDIC SUPERVISOR Outcomes Date/Time User Outcome 10/19/23951 Hyacinth Tavares CCC-PARAMEDIC SUPERVISOR Completed Goal Note filed on 10/19/23951 by CHEPE Powers VFSS completed this date. See note for results. Goal: STG: Patient will complete safety strategies with minimal assistance during PO intake 90% of the time Dates: Start: 10/19/23 Expected End: 11/02/23 Disciplines: PARAMEDIC SUPERVISOR Goal: STG: Patient will complete oral/ pharyngeal strengthening program with resistance with 90% accuracy with minimal cueing Dates: Start: 10/19/23 Expected End: 11/02/23 Disciplines: PARAMEDIC SUPERVISOR Speech Therapy Care Plan (Resolved) There are no resolved problems. Principal Problem: Aspiration pneumonia of both lower lobes, unspecified aspiration pneumonia type ([facility]) Active Problems: Essential hypertension Diabetic autonomic neuropathy associated with type 2 diabetes mellitus ([facility]) Chronic obstructive pulmonary disease ([facility]) Mixed hyperlipidemia Metabolic encephalopathy Altered mental status [...] at the bedside 7. Instruct patient/ patient communications representative about use of safety devices 8. Include patient/ patient communications representative in decisions related to safety Outcome: [...] at the bedside 7. Instruct patient/ patient communications representative about use of safety devices 8. Include patient/ patient communications representative in decisions related to safety Outcome: [...] Description: INTERVENTIONS: 1. Encourage patient or legal communications representative to report early pain and ask [...] per policy 9. Teach patient or legal communications representative interventions for comforting Outcome: Progressing Note: [...] at the bedside 7. Instruct patient/ patient communications representative about use of safety devices 8. Include patient/ patient communications representative in decisions related to safety Outcome: Progressing Note: Evaluation of progress towards goal: Pt has remained free of injury. Will continue to reinforce protocols for patient and staff. * PT/OT/PARAMEDIC SUPERVISOR - Lanette Wheatley PTA - 10/18/2023 7:30 AM EST Physical Therapy Treatment Discharge Recommendations PT Recommendations: Half-Way Facility (vs ECF) 6 Clicks: Basic Mobility [...] RN Equipment: non skid socks, rolling walker Telemetry/Real Estate Valuer: No Pain Assessment Pain Assessment: No/denies pain [...] both lower lobes, unspecified aspiration pneumonia type ([facility]) Active Problems: Essential hypertension Diabetic autonomic neuropathy associated with type 2 diabetes mellitus ([facility]) Chronic obstructive pulmonary disease ([facility]) Mixed hyperlipidemia Metabolic encephalopathy Altered mental [...] at the bedside 7. Instruct patient/ patient communications representative about use of safety devices 8. Include patient/ patient communications representative in decisions related to safety Outcome: [...] be free from fall Description: Interventions: 1. [place] to environment 2. Hourly rounds addressing the [...] non-skid footwear 11. Teach patient and patient communications representative to maintain environment for safety and [...] (cane, walker) within reach 19. Request patient communications representative bring adaptive equipment/mobility aids from home or obtain and provide as needed 20. Consult pharmacy regarding effects of med's affecting mobility, cognition, and alternatives 21. Obtain physician order for PT if risk factors associated with mobility are present 22. Obtain physician order for OT as appropriate 23. Utilize diversional activities 24. Educate patient and patient communications representative how to maintain a safe environment during visitationtimes (notify nurse prior to leaving bedside) 25. Consider appropriateness of medical or non-medical staff manager 26. Set up voiding schedule as appropriate [...] * Plan of Care - Sindi Cope [facility] - 10/17/2023 7:15 PM EST Problem: Inadequate [...] Description: INTERVENTIONS: 1. Encourage patient or legal communications representative to report early pain and ask [...] per policy 9. Teach patient or legal communications representative interventions for comforting Outcome: Progressing Note: [...] at the bedside 7. Instruct patient/ patient communications representative about use of safety devices 8. Include patient/ patient communications representative in decisions related to safety Outcome: Progressing Note: Evaluation of progress towards goal: Pt has remained free of injury. Will continue to reinforce protocols for patient and staff. * PT/OT/PARAMEDIC SUPERVISOR - Lanette Wheatley PTA - 10/17/2023 8:46 AM EST Physical Therapy Treatment Discharge Recommendations PT Recommendations: Half-Way Facility (vs ECF) 6 Clicks: Basic Mobility [...] per RN Equipment: nonskid socks, standard walker Telemetry/Real Estate Valuer: Yes Oxygen Used: room air Pain Assessment [...] diabetes mellitus ([facility]-HCC) Chronic obstructive pulmonary disease ([facility]) Mixed hyperlipidemia Metabolic encephalopathy Altered mental status [...] at the bedside 7. Instruct patient/ patient communications representative about use of safety devices 8. Include patient/ patient communications representative in decisions related to safety Outcome: [...] be free from fall Description: Interventions: 1. [place] to environment 2. Hourly rounds addressing the [...] non-skid footwear 11. Teach patient and patient communications representative to maintain environment for safety and [...] (cane, walker) within reach 19. Request patient communications representative bring adaptive equipment/mobility aids from home or obtain and provide as needed 20. Consult pharmacy regarding effects of med's affecting mobility, cognition, and alternatives 21. Obtain physician order for PT if risk factors associated with mobility are present 22. Obtain physician order for OT as appropriate 23. Utilize diversional activities 24. Educate patient and patient communications representative how to maintain a safe environment during visitationtimes (notify nurse prior to leaving bedside) 25. Consider appropriateness of medical or non-medical staff manager 26. Set up voiding schedule as appropriate [...] Description: INTERVENTIONS: 1. Encourage patient or legal communications representative to report early pain and ask [...] per policy 9. Teach patient or legal communications representative interventions for comforting Outcome: Progressing Note: [...] at the bedside 7. Instruct patient/ patient communications representative about use of safety devices 8. Include patient/ patient communications representative in decisions related to safety Outcome: Progressing Note: Evaluation of progress towards goal: Pt has remained free of injury. Will continue to reinforce protocols for patient and staff. * PT/OT/PARAMEDIC SUPERVISOR - NITA Boogie/Natalie - 10/16/2023 12:45 PM EST Occupational Therapy Evaluation Discharge Recommendations OT Recommendations : Half-Way Facility (versus extended care facility) SNF/ECF Comments: [...] Total Scoring Daily Activity Raw Score: 6 [facility] G Code Modifier: CN Modified [place] Level of Disability: Moderately severe disability 0= [...] healing L1-3 COPD (chronic obstructive pulmonary disease) ([facility]) Diabetes mellitus ([facility]) Fall from height of greater than 3 [...] Activity: OK to eval per RN Inez Telemetry/Real Estate Valuer: Yes Oxygen Used: room air Other: fall [...] level of functional independence and to reduce manager intensive care unit burden, including bathing dressing toileting and self [...] both lower lobes, unspecified aspiration pneumonia type ([facility]) Active Problems: Essential hypertension Diabetic autonomic neuropathy associated with type 2 diabetes mellitus ([facility]) Chronic obstructive pulmonary disease ([facility]) Mixed hyperlipidemia Metabolic encephalopathy Altered mental status * Discharge Planning Note - OJ Marie - 10/16/2023 11:29 AM EST DISCHARGE PLANNING NOTE Follow-up Discharge Planning Progress Note Per RN during discharge transition rounds, barriers to discharge are: None. Ready to DC today. Discharge Plan: Return to [facility] when approved by insurance. PT eval sent via [facility]. Confirmation from Anel on [facility] with [facility] that precert will be submitted with insurance. OJ Marie, 10/16/2023, 11:33 AM Still await auth for pt to return to snf. OT eval sent via [employer]. Staff updated. OJ Marie, 10/16/2023, 4:31 PM Care Navigation will continue to follow. * PT/OT/PARAMEDIC SUPERVISOR - Karin Wise, PT - 10/16/2023 11:24 AM EST Physical Therapy Evaluation Discharge Recommendations PT Recommendations: Half-Way Facility (vs ECF) SNF/ECF Comments: PT is recommending for patient to return to nursing facility following discharge for continued care for promoting decreased risk of falls. Past Medical History: Diagnosis Date Closed fracture of transverse process of lumbar vertebra with routine healing L1-3 COPD (chronic obstructive pulmonary disease) ([facility]) Diabetes mellitus ([facility]) Fall from height of greater than 3 [...] 6 Clicks: Basic Mobility Raw Score: 13 [facility] G Code Modifier: CK Therapy Plan Need [...] Inez RUIZ Equipment: nonskid socks, standard walker Telemetry/Real Estate Valuer: Yes Oxygen Used: room air Pain Assessment [...] both lower lobes, unspecified aspiration pneumonia type ([facility]) Active Problems: Essential hypertension Diabetic autonomic neuropathy associated with type 2 diabetes mellitus ([facility]) Chronic obstructive pulmonary disease ([facility]) Mixed hyperlipidemia Metabolic encephalopathy Altered mental status * Discharge Planning Note - OJ Rodriguez - 10/16/2023 8:26 AM EST DISCHARGE PLANNING NOTE Sent H & P, OT note, ST eval to [facility] asking to start insurance pre- cert for weekend DC; will need to send PT eval when available. Sticky note on chart regarding DC plan to return to [facility] upon insurance approval. Care Navigation following [...] at the bedside 7. Instruct patient/ patient communications representative about use of safety devices 8. Include patient/ patient communications representative in decisions related to safety Outcome: [...] No insulin administered persliding scale orders. * PT/OT/PARAMEDIC SUPERVISOR - BRYCE Marquez-PARAMEDIC SUPERVISOR - 10/15/2023 2:23 PM EST Speech Therapy [...] Medications: In applesauce/puree Referrals: VFSS Discharge Recommendations: assisted facility VFSS could not be scheduled at this time due to scheduled constraints and radiology on site on Fridays. If d/c prior to VFSS recommend completion as an outpatient. Plan Frequency: 1-2days/week Duration: 14 days Treatments/Modalities: Safety strategies Need for skilled Speech Language Pathology Services to address deficits in feeding/swallowing due to a status decline resulting from aspiration pneumonia. Prognosis Services: Skilled PARAMEDIC SUPERVISOR services to address above deficits Prognosis/Potential: Guarded Considerations: Cognition, Ability to learn, Co-morbidities, Severity of impairments Assessment Baseline Assessment Additional Testing Results: Chest X-Ray, Computed Tomography (Was sent for MRI, was uncoperative) Setting Prior to Admission: assisted facility Associated Problems: Coughing, Change in vocal [...] Dysphagia Problem: Swallowing Dates: Start: 10/15/23 Disciplines: PARAMEDIC SUPERVISOR Goal: LTG: Patient will maintain adequate nutrition/ hydration with optimum safety and efficiency of swallowing function of oral intake without overt signs/symptoms of aspiration for the highest appropriate diet level Dates: Start: 10/15/23 Expected End: 10/29/23 Disciplines: PARAMEDIC SUPERVISOR Goal: STG: Patient will tolerate therapeutic feeding trials of advanced textures with 90% accuracy with minimal cueing Dates: Start: 10/15/23 Expected End: 10/29/23 Disciplines: PARAMEDIC SUPERVISOR Goal: STG: Pt will participate in VFSS evaluation to further assess swallow efficiency and safe oral intake Dates: Start: 10/15/23 Expected End: 10/29/23 Disciplines: PARAMEDIC SUPERVISOR Speech Therapy Care Plan (Resolved) There are [...] Services with any new skin concerns. * PT/OT/PARAMEDIC SUPERVISOR - NITA Boogie/Natalie - 10/15/2023 11:05 AM [...] pt sister Delma, return to [facility]) County Information [facility] Patient Information Primary Caregiver Family (machine sign writer spoke with pt sister Delma by phone, she informs there is a guardianship hearing on 10/22/23, this will be 3rd hearing) Support System Extended family (sister Delma) Stressors Type of stressor (per Delma, pt was at [facility] for about 6 weeks) Income Information Income Information Unemployed Referral To Community Resources Denies needs Discharge Planning Living Arrangements Half-Way Support Systems Family members (sister Delma) Assistance Needed adl/iadls Type of Residence snf Care Facility Name [facility] Home Care Services No Community Agencies Currently Utilized None Patient expects to be discharged to: [facility] Does the patient need discharge transport arranged? Yes Services Requested: Services Requested Discharge Disposition: Non [facility] SNF Name: [facility] SN[facility] SNF Patient choice offered: Patient declined List Provided: Patient declined Patient Declined: Active with Provider Initial DC Assessment Completed: Yes DC Planning Complete Discharge Milestones: Yes Patient Goals: Patient/Caregiver Goals Patient/Caregiver Goals: Half-Way Care Skilled [place] Care: Extended Care Facility (Doctor Of Optometry) (return to [facility]) Goals per pt sister Delma, return to [facility] (pt-stated) Evaluation of progress towards goal: under assessment Chart reviewed. Investment Advisor to pt room, pt not able to converse with machine sign writer due to mentation. Documents on pt clipboard, pt came to hospital from [facility] with an admission date there of 09/30/23. Call placed to pt sister Delma, introduced self & role of SW; assessment/goals as above based upon information from Delma. Per Delma she is in process of pursing guardianship & there is another hearing on 10/22/23. Delma informs pt spent about 6 weeks at [facility], was sent there from [facility]. Pt DC from [facility] to [facility]. Delma informs pt does not have HCPOA, pt has no children & only other family is a brother whose whereabouts are unknown. Delma also relayed pt is not able to read or write. DC plan per Delma is for pt to return to [facility]. Delma gives machine sign writer [facility]; informed Delma that new insurance approval likely needed to DC back to [facility]. Pt has history of substance abuse. Opportunity provided to ask questions, Delma does not endorse any at this time. Plan to prevent readmission is for pt to DC back to [facility], follow DC instructions including medication compliance and to reach out to health care team as needed. Tasked Transition Center to send RETURN TO referral to [facility] & requested confirmation they will accept pt back at [place] & to inform if insurance pre-cert needed to return. Sticky note on chart regarding DC plan. Care Navigation following for safe care transition * Discharge Planning Note - Roxanne Guerrero - 10/15/2023 10:25 AM EST DISCHARGE PLANNING NOTE Return referral sent to [facility] (Formerly [facility]) (P# ; F# ) * Plan of [...] at the bedside 7. Instruct patient/ patient communications representative about use of safety devices 8. Include patient/ patient communications representative in decisions related to safety Outcome: Progressing Note: Evaluation of progress towards goal: Patient remains free from falls and injury. documented in this encounterHenry County HospitalMobileum [facility] [id number] Progress note* PT/OT/PARAMEDIC SUPERVISOR - MERCY Boogie - 10/19/2023 11:55 AM EST Occupational Therapy CANCEL - Deferred attempted OT treatment, patient eating. [facility] Work Phone: [phone]) 833-731903-04-2024 Hospital course Narrative* Jay Evans MD - 10/19/2023 11:27 AM EST Images from the original note were not included. [facility] MEDICINE [facility] HOSPITALISTS MD Enmanuel Blunt MD Kaleem Gill, MD Sneha Kommoori, MD Ruqiyya Muhammad, MD Kanchan Pillai, MD Ravi Pothireddy, MD Milagro Wilde, MD Carrie Ng, SAP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 Leila Santos, SAP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 Mya Aline, SAP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 Coral Everton, SAP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 Jennifer Maloney, SAP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 Joann Dowellgarland, SAP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 Cici Paintingt, SAP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 Keyla Robbins, SAP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 Miguel Paulino, SAP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 Patito Craig, SAP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 Amy Renay, SAP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 Gely Wen, SAP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 Jade Bridges, SAP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 Manfred Bhat, SAP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 Magali Nassar, SAP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 Amy Ayushjonas, SAP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 Laura Sharma, SAP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 Link Jac, [facility] Hospital Medicine Discharge Summary Patient: Akbar Byrnes Date of : 1960 Room: Encounter date: 10/19/23 DATE OF ADMISSION: 10/14/2023 DATE OF DISCHARGE:10/19/2023 DISCHARGE DIAGNOSES Principal Problem: Aspiration pneumonia of both lower lobes, unspecified aspiration pneumonia type ([facility]) Active Problems: Essential hypertension Diabetic autonomic neuropathy associated with type 2 diabetes mellitus ([facility]) Chronic obstructive pulmonary disease ([facility]) Mixed hyperlipidemia Metabolic encephalopathy Altered mental [...] concerns at this time. From [facility]. ER Course: CBC is reassuring against [...] or pudding. Patient be discharged back to residential facility. 10/19/23, Hospital Day: 6 Interval History: [...] patient. Miguel Paulino APRN-ROD, 10/19/2023 11:27 AM [facility] - [facility] Hospitalists 7AM-7PM: Message rounding EDGAR in Lono[employer] or page through [employer]. 7PM-7AM: Page on-call EDGAR through our answering service, . This note is dictated with the use of M*Modal. Please note that this dictation was completed with computer voice recognition software. Quite often unanticipated grammatical, syntax, homophones, and other interpretive errors are inadvertently transcribed by the computer software. Please disregard these errors. Please excuse any errors that have escaped final proofreading. Miguel Paulino, [facility] 10/19/23 1132 Physician Attestation I, Jay [...] the plan as noted. documented in this encounterAshtabula [facility] Center03-04-2024 Progress note* Discharge Planning Note - Roxanne Guerrero - 10/19/2023 10:44 AM EST DISCHARGE PLANNING NOTE Updates sent to [facility] ([facility]ly [facility]) (P# ; F# ) [facility]03-04-2024 Progress note* Discharge Planning Note - OJ Marie - 10/19/2023 10:35 AM EST DISCHARGE PLANNING NOTE Follow-up Discharge Planning Progress Note Per RN during discharge transition rounds, barriers to discharge are: None DC Barrier: Await auth to return to [facility]. Discharge Plan: Return to [facility] when approved by insurance. Tasked to Transition Centerto send updates. 1045: [facility]. Request pt return at 4 PM of after. Staff updated. Tasked to Transition Center to send CRF, DC summary and ST VFSS. OJ Marie, 10/19/2023, 11:35 AM Care Navigation will continue to follow. dianboom03-04-2024 Progress note* PT/OT/PARAMEDIC SUPERVISOR - Karin Tadeo, PT - 10/19/2023 9:48 AM EST Physical Therapy Treatment Discharge Recommendations PT Recommendations: Half-Way Facility (vs ECF) Past Medical History: Diagnosis Date Closed fracture of transverse process of lumbar vertebra with routine healing L1-3 COPD (chronic obstructive pulmonary disease) ([facility]) Diabetes mellitus ([facility]) Fall from height of greater than [...] 6 Clicks: Basic Mobility Raw Score: 22 [facility] G Code Modifier: CJ Therapy Plan Need [...] RUIZ Equipment: non skid socks, rolling walker Telemetry/Real Estate Valuer: No Other: fall risk Pain Assessment Pain [...] Tadeo, PT Progressing 10/18/23 0727 Lanette Wheatley, FILTER TANK TENDER Progressing 10/17/23 0843 Lanette Wheatley FILTER TANK TENDER Progressing Goal Note filed on 10/19/2348 by [...] Tadeo PT Completed 10/18/23 0727 Lanette Wheatley, FILTER TANK TENDER Progressing Goal Note filed on 10/19/2348 by [...] Progressing Goal Note filed on 10/19/23947 by aKrin Tadeo PT Evaluation of progress towards goal: SBA Principal Problem: Aspiration pneumonia of both lower lobes, unspecified aspiration pneumonia type ([facility]) Active Problems: Essential hypertension Diabetic autonomic neuropathy associated with type 2 diabetes mellitus ([facility]) Chronic obstructive pulmonary disease ([facility]) Mixed hyperlipidemia Metabolic encephalopathy Altered mental status dianboom03-04-2024 Progress note* PT/OT/PARAMEDIC SUPERVISOR - Hyacinth Tavares CCC-PARAMEDIC SUPERVISOR - 10/19/2023 9:35 AM EST Speech Therapy [...] strategies Medications: Crushed, In applesauce/puree Discharge Recommendations: assisted facility Plan Frequency: 2-3days/week Duration: 14 days Treatments/Modalities: Base of tongue retraction, Pharyngeal strengthening, Safety strategies Need for skilled Speech Language Pathology Services to address deficits in feeding/swallowing due to a status decline resulting from aspiration pneumonia of both lower lobes. Prognosis Services: Skilled PARAMEDIC SUPERVISOR services to address above deficits Prognosis/Potential: Fair Considerations: Cognition, Co-morbidities Assessment Baseline Assessment Additional Testing Results: Chest X-Ray, Computed Tomography Setting Prior to Admission: assisted facility Associated Problems: Coughing, Change in vocal [...] Dysphagia Problem: Swallowing Dates: Start: 10/15/23 Disciplines: PARAMEDIC SUPERVISOR Goal: LTG: Patient will maintain adequate nutrition/ hydration with optimum safety and efficiency of swallowing function of oral intake without overt signs/symptoms of aspiration for the highest appropriate diet level Dates: Start: 10/15/23 Expected End: 10/29/23 Disciplines: PARAMEDIC SUPERVISOR Goal: STG: Patient will tolerate therapeutic feeding trials of advanced textures with 90% accuracy with minimal cueing Dates: Start: 10/15/23 Expected End: 10/29/23 Disciplines: PARAMEDIC SUPERVISOR Goal: STG: Pt will participate in VFSS evaluation to further assess swallow efficiency and safe oral intake (Resolved) Dates: Start: 10/15/23 Expected End: 10/29/23 Resolved: 10/19/23 Disciplines: PARAMEDIC SUPERVISOR Outcomes Date/Time User Outcome 10/19/23951 CHEPE Powers Completed Goal Note filed on 10/19/23951 by CHEPE Powers VFSS completed this date. See note for results. Goal: STG: Patient will complete safety strategies with minimal assistance during PO intake 90% of the time Dates: Start: 10/19/23 Expected End: 11/02/23 Disciplines: PARAMEDIC SUPERVISOR Goal: STG: Patient will complete oral/ pharyngeal strengthening program with resistance with 90% accuracy with minimal cueing Dates: Start: 10/19/23 Expected End: 11/02/23 Disciplines: PARAMEDIC SUPERVISOR Speech Therapy Care Plan (Resolved) There are no resolved problems. Principal Problem: Aspiration pneumonia of both lower lobes, unspecified aspiration pneumonia type ([facility]) Active Problems: Essential hypertension Diabetic autonomic neuropathy associated with type 2 diabetes mellitus (CMS-HCC) Chronic obstructive pulmonary disease ([facility]) Mixed hyperlipidemia Metabolic encephalopathy Altered mental status [facility]03-04-2024 History of Present illness Narrative* Lashae Meyer RCP - 10/19/2023 8:11 AM EST Unable to complete aerosol breathing treatment, Akbar appears over medicated and confused. He kept removing nebulizer mask. Will attempt next round. * Alon Henry MD - 10/18/2023 5:17 PM EST Images from the original note were not included. [facility] MEDICINE [facility] HOSPITALISTS MD Enmanuel Blunt MD Kaleem Gill, MD Sneha Kommoori, MD Dominic Lay, MD Caridad Gaitan, MD Jean Paul Ramirez, MD Milagro Wilde, MD Carrie Ng, SAP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 Leila Graham, SAP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 Mya Mireles, SAP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 Coral Toscano, SAP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 Jennifer Maloney, SAP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 Joann Reyes, SAP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 Cici Paintingt, SAP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 Keyla Rowelldale, SAP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 Miguel Jefferson, SAP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 Patito Kiara, SAP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 Amy Renay, SAP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 Gely Wen, SAP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 Jade Bridges, SAP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 Manfred Bhat, SAP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 Magali Maday, SAP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 Amy Michaela, [facility] Laura Sharma, SAP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 Link Nathan, [facility] Hospital Medicine Progress Note Patient: Akbar Byrnes Date of : 1960 Room: [facility] PCP: ROWDY OSWALD MD Admission date: 10/14/2023 [...] diabetes mellitus (CMS-HCC) Chronic obstructive pulmonary disease ([facility]) Mixed hyperlipidemia Metabolic encephalopathy Altered mental status [...] of subdural hematomas. DC planning: Discharge to residential facility when approval by insurance. Patient will need CRF for PT/OT/RN/ST. Will also need order for outpatient fluoroscopy swallow study. Miguel Paulino, 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-SAP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, 10/18/2023 5:18 PM [facility] Hospitalists 7AM-7PM: Message rounding EDGAR in L[employer] or page through [employer]. 7PM-7AM: Page on-call EDGAR through our [employer] service, . * Alon Henry MD - 10/17/2023 7:56 PM EST Images from the original note were not included. [facility] HOSPITALISTS MD Enmanuel Blunt MD Kaleem Gill, MD Sneha Kommoori, MD Dominic Lay, MD Caridad Gaitan, MD Jean Paul Ramirez, MD Milagro Wilde, MD Carrie Ng, SAP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 Leila Graham, SAP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 Mya Mireles, SAP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 Coral Toscano, SAP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 Jennifer Francisber, SAP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 Joannangelito Reyes, SAP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 Cici Graves, SAP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 Keyla Robbins, SAP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 Miguel Paulino, SAP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 Patito Craig, SAP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 Amy Niño, SAP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 Gely Carver, SAP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 Jade Bridges, SAP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 marce Rangelcory, SAP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 Magali Maday, SAP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 Amy Jennings, SAP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 Laura Sharma, SAP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 Link Nathan, SAP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 Hospital Medicine Progress Note Patient: Akbar Byrnes Date of : 1960 Room: 215/01 PCP: ROWDY OSWALD MD Admission date: 10/14/2023 9:49 PM Encounter date: 10/17/23 SUBJECTIVE Chief complaints: Chief Complaint Patient presents with Fatigue Interval History: Status: improved. No overnight events or new complaints. Mentation at baseline. Sitting comfortably in chair, wanting to shower, likely able to return to longterm once certification approved Review of Systems Review [...] of subdural hematomas. DC planning: Discharge to residential facility when approval by insurance. Patient will need CRF for PT/OT/RN/ST. Will also need order for outpatient fluoroscopy swallow study. Miguel Paulino, [facility], 10/17/2023 7:56 PM [facility] Hospitalists 7AM-7PM: Message rounding EDGAR in [employer] or page through [employer]. 7PM-7AM: Page on-call EDGAR through our [employer] service, . * Alon Henry MD - 10/16/2023 4:28 PM EST Images from the original note were not included. [facility] HOSPITALISTS MD Enmanuel Blunt, MD Jay Evans, MD Velma Rhodes, MD Dominic Lay, MD Caridad Gaitan, MD Jean Paul Ramirez, MD Milagro Wilde, MD Carrie Ng, SAP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 Leila Graham, SAP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 Mya Mireles, SAP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 Coral Toscano, SAP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 Jennifer Maloney, SAP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 Joann Reyes, SAP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 Cici Graves, SAP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 Keyla Robbins, SAP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 Miguel Paulino, SAP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 Patito Craig, SAP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 Amy Niño, SAP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 Gely Carver, SAP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 Jade Bridges, SAP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 Manfred Bhat, SAP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 Magali Nassar, SAP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 Amy Jennings, SAP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 Laura Sharma, SAP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 Link Natahn, SAP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 Hospital Medicine Progress Note Patient: Akbar Byrnes Date of : 1960 Room: [facility]/01 PCP: ROWDY OSWALD MD Admission date: 10/14/2023 [...] both lower lobes, unspecified aspiration pneumonia type ([facility]) Active Problems: Essential hypertension Diabetic autonomic neuropathy associated with type 2 diabetes mellitus ([facility]) Chronic obstructive pulmonary disease ([facility]) Mixed hyperlipidemia Metabolic encephalopathy Altered mental [...] of subdural hematomas. DC planning: Discharge to residential facility when approval by insurance. Patient will need CRF for PT/OT/RN/ST. Will also need order for outpatient fluoroscopy swallow study. Migeul Paulino, FIONA-SAP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, 10/16/2023 4:28 PM [facility] Medicine - [facility] Hospitalists 7AM-7PM: Message rounding EDGAR in [employer] or page through [employer]. 7PM-7AM: Page on-call EDGAR through our [employer] service, . Physician Attestation: I have reviewed [...] noted. ALON HENRY MD documented in this encounterAshtabula [facility] Center03-04-2024 Plan of care note * Plan of Care - Lashae Meyer STUDENT LIFE DEAN - 10/19/2023 8:10 AM EST Problem: Inadequate [...] Bilateral Breath Sounds Clear;Diminished Location Specific No [facility]03-04-2024 Plan of care note* Plan of Care [...] at the bedside 7. Instruct patient/ patient communications representative about use of safety devices 8. Include patient/ patient communications representative in decisions related to safety Outcome: Progressing Note: Evaluation of progress towards goal: Pt remains free from falls or accidental injury during stay. Fall prevention measures in place. Hourly rounding per RN and NA maintained. [facility]03-04-2024 Plan of care note* Plan of Care [...] at the bedside 7. Instruct patient/ patient communications representative about use of safety devices 8. Include patient/ patient communications representative in decisions related to safety Outcome: [...] SpO2 - 96%, not in respiratory distress. [facility]03-03-2024 Plan of care note* Plan of Care [...] Nebulizer Duration (Minutes) 10 Position Semi Leach's [employer] [id number] Plan of care note* Plan of Care - Inez Vera RN - 10/18/2023 12:22 PM EST Problem: Pain Goal: Patient goal is pain score less than 4, able to rest, and participant in treatment plan as appropriate Description: INTERVENTIONS: 1. Encourage patient or legal communications representative to report early pain and ask [...] per policy 9. Teach patient or legal communications representative interventions for comforting Outcome: Progressing Note: [...] at the bedside 7. Instruct patient/ patient communications representative about use of safety devices 8. Include patient/ patient communications representative in decisions related to safety Outcome: Progressing Note: Evaluation of progress towards goal: Pt has remained free of injury. Will continue to reinforce protocols for patient and staff. [employer] [id number] Progress note* PT/OT/PARAMEDIC SUPERVISOR - Lanette Wheatley, FILTER TANK TENDER - 10/18/2023 7:30 AM EST Physical Therapy Treatment Discharge Recommendations PT Recommendations: Half-Way Facility (vs ECF) 6 Clicks: Basic Mobility [...] RN Equipment: non skid socks, rolling walker Telemetry/Real Estate Valuer: No Pain Assessment Pain Assessment: No/denies pain [...] Outcomes Date/Time User Outcome 10/18/23726 Lanette Wheatley, FILTER TANK TENDER Progressing 10/17/23 0843 Lanette Wheatley PTA Progressing [...] both lower lobes, unspecified aspiration pneumonia type ([facility]) Active Problems: Essential hypertension Diabetic autonomic neuropathy associated with type 2 diabetes mellitus ([facility]) Chronic obstructive pulmonary disease ([facility]) Mixed hyperlipidemia Metabolic encephalopathy Altered mental status Associated attestation - Devin Marin, PT - 10/18/2023 7:35 AM EST I have reviewed and agree with this note and education documentation for this visit. [facility]03-03-2024 Plan of care note* Plan of Care [...] at the bedside 7. Instruct patient/ patient communications representative about use of safety devices 8. Include patient/ patient communications representative in decisions related to safety Outcome: [...] be free from fall Description: Interventions: 1. [place] to environment 2. Hourly rounds addressing the [...] non-skid footwear 11. Teach patient and patient communications representative to maintain environment for safety and [...] (cane, walker) within reach 19. Request patient communications representative bring adaptive equipment/mobility aids from home or obtain and provide as needed 20. Consult pharmacy regarding effects of med's affecting mobility, cognition, and alternatives 21. Obtain physician order for PT if risk factors associated with mobility are present 22. Obtain physician order for OT as appropriate 23. Utilize diversional activities 24. Educate patient and patient communications representative how to maintain a safe environment during visitationtimes (notify nurse prior to leaving bedside) 25. Consider appropriateness of medical or non-medical staff manager 26. Set up voiding schedule as appropriate [...] )SpO2 - 96%, not in respiratory distress. dianboom03-02-2024 Plan of care note* Plan of Care [...] Nebulizer Duration (Minutes) 10 Position High Leach's [facility] PO-MO [id number] Plan of care note* Plan of Care - Inez Vera RN - 10/17/2023 6:14 PM EST Problem: Pain Goal: Patient goal is pain score less than 4, able to rest, and participant in treatment plan as appropriate Description: INTERVENTIONS: 1. Encourage patient or legal communications representative to report early pain and ask [...] per policy 9. Teach patient or legal communications representative interventions for comforting Outcome: Progressing Note: [...] at the bedside 7. Instruct patient/ patient communications representative about use of safety devices 8. Include patient/ patient communications representative in decisions related to safety Outcome: Progressing Note: Evaluation of progress towards goal: Pt has remained free of injury. Will continue to reinforce protocols for patient and staff. [facility] PO[facility] [id number] Progress note* PT/OT/PARAMEDIC SUPERVISOR - Lanette Wheatley, FILTER TANK TENDER - 10/17/2023 8:46 AM EST Physical Therapy Treatment Discharge Recommendations PT Recommendations: Half-Way Facility (vs ECF) 6 Clicks: Basic Mobility [...] per RN Equipment: nonskid socks, standard walker Telemetry/Real Estate Valuer: Yes Oxygen Used: room air Pain Assessment [...] diabetes mellitus (CMS-HCC) Chronic obstructive pulmonary disease ([facility]) Mixed hyperlipidemia Metabolic encephalopathy Altered mental status Associated attestation - Devin Marin PT - 10/18/2023 6:39 AM EST I have reviewed and agree with this note and education documentation for this visit. [employer] [id number] Plan of care note* Plan of Care [...] diminished,Spo2 - 96%, not in respiratory distress. [facility]03-02-2024 Plan of care note* Plan of Care [...] at the bedside 7. Instruct patient/ patient communications representative about use of safety devices 8. Include patient/ patient communications representative in decisions related to safety Outcome: [...] be free from fall Description: Interventions: 1. [place] to environment 2. Hourly rounds addressing the [...] non-skid footwear 11. Teach patient and patient communications representative to maintain environment for safety and [...] (cane, walker) within reach 19. Request patient communications representative bring adaptive equipment/mobility aids from home or obtain and provide as needed 20. Consult pharmacy regarding effects of med's affecting mobility, cognition, and alternatives 21. Obtain physician order for PT if risk factors associated with mobility are present 22. Obtain physician order for OT as appropriate 23. Utilize diversional activities 24. Educate patient and patient communications representative how to maintain a safe environment during visitationtimes (notify nurse prior to leaving bedside) 25. Consider appropriateness of medical or non-medical staff manager 26. Set up voiding schedule as appropriate (every 2 hours) Note: Evaluation of progress towards goal: No fall episodes during the entire shift [employer] [id number] Plan of care note* Plan of Care - Inez Vera RN - 10/16/2023 6:41 PM EST Problem: Pain Goal: Patient goal is pain score less than 4, able to rest, and participant in treatment plan as appropriate Description: INTERVENTIONS: 1. Encourage patient or legal communications representative to report early pain and ask [...] per policy 9. Teach patient or legal communications representative interventions for comforting Outcome: Progressing Note: [...] at the bedside 7. Instruct patient/ patient communications representative about use of safety devices 8. Include patient/ patient communications representative in decisions related to safety Outcome: Progressing Note: Evaluation of progress towards goal: Pt has remained free of injury. Will continue to reinforce protocols for patient and staff. [facility]03-01-2024 Progress note* PT/OT/PARAMEDIC SUPERVISOR - NITA Boogie/Natalie - 10/16/2023 12:45 PM EST Occupational Therapy Evaluation Discharge Recommendations OT Recommendations : Half-Way Facility (versus extended care facility) SNF/ECF Comments: [...] Total Scoring Daily Activity Raw Score: 6 [facility] G Code Modifier: CN Modified [place] Level of Disability: Moderately severe disability 0= [...] healing L1-3 COPD (chronic obstructive pulmonary disease) ([facility]) Diabetes mellitus ([facility]) Fall from height of greater than 3 [...] Activity: OK to eval per Inez RUIZ Telemetry/Real Estate Valuer: Yes Oxygen Used: room air Other: fall [...] level of functional independence and to reduce manager intensive care unit burden, including bathing dressing toileting and self [...] both lower lobes, unspecified aspiration pneumonia type ([facility]-H[facility]) Active Problems: Essential hypertension Diabetic autonomic neuropathy associated with type 2 diabetes mellitus ([facility]) Chronic obstructive pulmonary disease ([facility]) Mixed hyperlipidemia Metabolic encephalopathy Altered mental status [facility]03-01-2024 Progress note* Discharge Planning Note - OJ Marie - 10/16/2023 11:29 AM EST DISCHARGE PLANNING NOTE Follow-up Discharge Planning Progress Note Per RN during discharge transition rounds, barriers to discharge are: None. Ready to DC today. Discharge Plan: Return to [facility] when approved by insurance. PT eval sent via [facility]. Confirmation from Anel on [facility] with [facility] that precert will be submitted with insurance. OJ Marie, 10/16/2023, 11:33 AM Still await auth for pt to return to snf. OT eval sent via [facility]. Staff updated. OJ Marie, 10/16/2023, 4:31 PM Care Navigation will continue to follow. dianboom03-01-2024 Progress note* PT/OT/PARAMEDIC SUPERVISOR - Karin Tadeo, PT - 10/16/2023 11:24 AM EST Physical Therapy Evaluation Discharge Recommendations PT Recommendations: Half-Way Facility (vs ECF) SNF/ECF Comments: PT is recommending for patient to return to nursing facility following discharge for continued care for promoting decreased risk of falls. Past Medical History: Diagnosis Date Closed fracture of transverse process of lumbar vertebra with routine healing L1-3 COPD (chronic obstructive pulmonary disease) ([facility]) Diabetes mellitus ([facility]) Fall from height of greater than 3 [...] 6 Clicks: Basic Mobility Raw Score: 13 [facility] G Code Modifier: CK Therapy Plan Need [...] Inez RUIZ Equipment: nonskid socks, standard walker Telemetry/Real Estate Valuer: Yes Oxygen Used: room air Pain Assessment [...] both lower lobes, unspecified aspiration pneumonia type ([facility]) Active Problems: Essential hypertension Diabetic autonomic neuropathy associated with type 2 diabetes mellitus ([facility]) Chronic obstructive pulmonary disease ([facility]) Mixed hyperlipidemia Metabolic encephalopathy Altered mental status [facility] [employer] [id number] Progress note* Discharge Planning Note - OJ Rodriguez - 10/16/2023 8:26 AM EST DISCHARGE PLANNING NOTE Sent H & P, OT note, ST eval to [facility] asking to start insurance pre- cert for weekend DC; will need to send PT eval when available. Sticky note on chart regarding DC plan to return to [facility] upon insurance approval. Care Navigation following for safe care transition. [facility] [id number] Plan of care note* Plan of Care [...] at the bedside 7. Instruct patient/ patient communications representative about use of safety devices 8. Include patient/ patient communications representative in decisions related to safety Outcome: [...] 150. No insulin administered persliding scale orders. [facility]02-29-2024 Progress note* PT/OT/PARAMEDIC SUPERVISOR - BRYCE Marquez-PARAMEDIC SUPERVISOR - 10/15/2023 2:23 PM EST Speech Therapy [...] Medications: In applesauce/puree Referrals: VFSS Discharge Recommendations: assisted facility VFSS could not be scheduled at this time due to scheduled constraints and radiology on site on Fridays. If d/c prior to VFSS recommend completion as an outpatient. Plan Frequency: 1-2days/week Duration: 14 days Treatments/Modalities: Safety strategies Need for skilled Speech Language Pathology Services to address deficits in feeding/swallowing due to a status decline resulting from aspiration pneumonia. Prognosis Services: Skilled PARAMEDIC SUPERVISOR services to address above deficits Prognosis/Potential: Guarded Considerations: Cognition, Ability to learn, Co-morbidities, Severity of impairments Assessment Baseline Assessment Additional Testing Results: Chest X-Ray, Computed Tomography (Was sent for MRI, was uncoperative) Setting Prior to Admission: assisted facility Associated Problems: Coughing, Change in vocal [...] Dysphagia Problem: Swallowing Dates: Start: 10/15/23 Disciplines: PARAMEDIC SUPERVISOR Goal: LTG: Patient will maintain adequate nutrition/ hydration with optimum safety and efficiency of swallowing function of oral intake without overt signs/symptoms of aspiration for the highest appropriate diet level Dates: Start: 10/15/23 Expected End: 10/29/23 Disciplines: PARAMEDIC SUPERVISOR Goal: STG: Patient will tolerate therapeutic feeding trials of advanced textures with 90% accuracy with minimal cueing Dates: Start: 10/15/23 Expected End: 10/29/23 Disciplines: PARAMEDIC SUPERVISOR Goal: STG: Pt will participate in VFSS evaluation to further assess swallow efficiency and safe oral intake Dates: Start: 10/15/23 Expected End: 10/29/23 Disciplines: PARAMEDIC SUPERVISOR Speech Therapy Care Plan (Resolved) There are no resolved problems. Principal Problem: Aspiration pneumonia of both lower lobes, unspecified aspiration pneumonia type (CMS-HCC) Active Problems: Essential hypertension Diabetic autonomic neuropathy associated with type 2 diabetes mellitus (CMS-HCC) Chronic obstructive pulmonary disease (CMS-HCC) Mixed hyperlipidemia Metabolic encephalopathy Altered mental status [facility]02-29-2024 Nurse Note* Tish Cyr RN - 10/15/2023 2:15 PM EST Patient had dose of zyprexa before MRI, patient was still unable to tolerate MRI/restless.Techs brought patient back to his room. Will attempt again tommorrow [facility]02-29-2024 Progress note* Wound Care - Jennifer Olivas [...] Care Services with any new skin concerns. [facility]02-29-2024 Progress note* PT/OT/PARAMEDIC SUPERVISOR - Amy Soriano OTR/L - 10/15/2023 11:05 AM EST Occupational Therapy CANCEL - Deferred after chart review and discussing with RN, RN defers eval at this time, awaiting further testing. OT to continue to follow and attempt later as able. [facility]02-29-2024 Progress note* Discharge Planning Note - OJ Rodriguez - 10/15/2023 10:30 AM EST Images from the original note were not included. DISCHARGE PLANNING NOTE 10/15/23 1019 Discharge Disposition Discharge Disposition SNF (per pt sister Delma, return to [facility]) County Information [facility] Patient Information Primary Caregiver Family (machine sign writer spoke with pt sister Delma by phone, she informs there is a guardianship hearing on 10/22/23, this will be 3rd hearing) Support System Extended family (sister Delma) Stressors Type of stressor (per Delma, pt was at [facility] for about 6 weeks) Income Information Income Information Unemployed Referral To Community Resources Denies needs Discharge Planning Living Arrangements Half-Way Support Systems Family members (sister Delma) Assistance Needed adl/iadls Type of Residence snf Care Facility Name [facility] Home Care Services No Community Agencies Currently Utilized None Patient expects to be discharged to: [facility] Does the patient need discharge transport arranged? Yes Services Requested: Services Requested Discharge Disposition: Non [facility] SNF Name: [facility] SNF SNF Patient choice offered: Patient declined List Provided: Patient declined Patient Declined: Active with Provider Initial DC Assessment Completed: Yes DC Planning Complete Discharge Milestones: Yes Patient Goals: Patient/Caregiver Goals Patient/Caregiver Goals: Half-Way Care Skilled [place] Care: Extended Care Facility (Senior Living) (return to [facility]) Goals per pt sister Delma, return to [facility] (pt-stated) Evaluation of progress towards goal: under assessment Chart reviewed. Investment Advisor to pt room, pt not able to converse with machine sign writer due to mentation. Documents on pt clipboard, pt came to hospital from [facility] with an admission date there of 09/30/23. Call placed to pt sister Delma, introduced self & role of SW; assessment/goals as above based upon information from Delma. Per Delma she is in process of pursing guardianship & there is another hearing on 10/22/23. Delma informs pt spent about 6 weeks at [facility], was sent there from [facility]. Pt DC from [facility] to [facility]. Delma informs pt does not have HCPOA, pt has no children & only other family is a brother whose whereabouts are unknown. Delma also relayed pt is not able to read or write. DC plan per Delma is for pt to return to [facility]. Delma gives machine sign writer permission to sendreturn to referral; informed Delma that new insurance approval likely needed to DC back to [facility]. Pt has history of substance abuse. Opportunity provided to ask questions, Delma does not endorse any at this time. Plan to prevent readmission is for pt to DC back to [facility], follow DC instructions including medication compliance and to reach out to health care team as needed. Tasked Transition Center to send RETURN TO referral to [facility] & requested confirmation they will accept pt back at [place] & to inform if insurance pre-cert needed to return. Sticky note on chart regarding DC plan. Care Navigation following for safe care transition [facility]02-29-2024 History and physical note* Alon Henry MD - 10/15/2023 10:26 AM EST Images from the original note were not included. [facility] MD Enmanuel Blunt, MD Jay Evans, MD Velma Rhodes, MD Dominic Lay, MD Caridad Gaitan, MD Jean Paul Ramirez, MD Milagro Wilde, MD Carrie Ng, ROD Graham, ROD Mireles, ROD Toscano, ROD Maloney, ROD Reyes, ROD Graves, ROD Robbins, ROD Paulino, ROD Craig, ROD Niño, SAP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 Gely Carver, SAP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 Jade Bridges, ROD Bhat, ROD Nassar, SAP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 Amy Jennings, ROD Sharma, SAP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 Link Nathan, [facility] Medicine History & Physical Patient: Akbar [...] no other concerns at this time. From [facility]. ER Course: CBC is reassuring against acute [...] withroutine healing, COPD (chronic obstructive pulmonary disease) ([facility]), Diabetes mellitus ([facility]), Fall from height of greater than 3 [...] both lower lobes, unspecified aspiration pneumonia type ([facility]) Active Problems: Essential hypertension Diabetic autonomic neuropathy associated with type 2 diabetes mellitus ([facility]) Chronic obstructive pulmonary disease ([facility]) Mixed hyperlipidemia Metabolic encephalopathy Altered mental [...] days. Miguel Paulino APRN-ROD, 10/15/2023 10:32 AM [facility] Medicine [facility] Hospitalists 7AM-7PM: Message rounding EDGAR in [employer] or page through [employer]. 7PM-7AM: Page on-call EDGAR through our answering [...] above, unless otherwise noted. ALON HENRY MD [facility]02-29-2024 History and physical note* Alon Henry MD - 10/15/2023 10:26 AM EST Images from the original note were not included. [facility] MD Enmanuel Blunt MD Kaleem Gill, MD Sneha Kommoori, MD Caridad Amin MD Ravi Pothireddy, MD Milagro Wilde, MD Carrie Ng, SAP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 Leila Graham, SAP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 Mya Mireles, SAP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 Coral Toscano, SAP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 Jennifer Maloney, SAP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 Joann Reyes, SAP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 Cici Graves, ROD Robbins, ROD Paulino, ROD Craig, ROD Niño, ROD Carver, SAP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 Jade Bridges, SAP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 Manfred Bhat, SAP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 Magali Nassar, SAP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 Amy Jennings, SAP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 Laura Sharma, SAP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 Link Nathan, [facility] Hospital Medicine History & Physical Patient: Akbar Byrnes Date of : 1960 Room: [facility] PCP: ROWDY OSWALD MD Admission date: 10/14/2023 [...] concerns at this time. From [facility]. ER Course: CBC is reassuring against [...] withroutine healing, COPD (chronic obstructive pulmonary disease) ([facility]), Diabetes mellitus ([facility]), Fall from height of greater than 3 [...] both lower lobes, unspecified aspiration pneumonia type ([facility]) Active Problems: Essential hypertension Diabetic autonomic neuropathy associated with type 2 diabetes mellitus (CMS-HCC) Chronic obstructive pulmonary disease ([facility]) Mixed hyperlipidemia Metabolic encephalopathy Altered mental status [...] nursing facility in 1-2 days. Miguel Paulino, 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-SAP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, 10/15/2023 10:32 AM [facility] Hospitalists 7AM-7PM: Message rounding EDGAR in [employer] or page through [employer]. 7PM-7AM: Page on-call EDGAR through our answering [...] noted. ALON HENRY MD documented in this encounterAshtabula [facility]02-[facility] Progress note* Discharge Planning Note - Roxanne Guerrero - 10/15/2023 10:25 AM EST DISCHARGE PLANNING NOTE Return referral sent to [facility] ([facility]) (P# ; F# ) [facility]02-29-2024 Plan of care note* Plan of Care [...] at the bedside 7. Instruct patient/ patient communications representative about use of safety devices 8. Include patient/ patient communications representative in decisions related to safety Outcome: Progressing Note: Evaluation of progress towards goal: Patient remains free from falls and injury. [facility]02-28-2024 Physician Emergency department Note* Felix Cyr, DO [...] this time. 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: EMS/fire personnel sales intern used?: No Fatigue Severity: Severe Timing: Constant Progression: Unchanged Associated symptoms: fatigue Problem List Items Addressed This Visit None Past Medical History: Diagnosis Date Closed fracture of transverse process of lumbar vertebra with routine healing L1-3 COPD (chronic obstructive pulmonary disease) ([facility]) Diabetes mellitus ([facility]) Fall from height of greater than 3 [...] a 62-year-old man who is in a longterm because he apparently has some chronic encephalopathy [...] both lower lobes, unspecified aspiration pneumonia type ([facility]) Metabolic encephalopathy MDM Medical Decision Making ISara [...] both lower lobes, unspecified aspiration pneumonia type ([facility]) 2. Metabolic encephalopathy Disposition: Patient's disposition: Admit Patient's condition is stable. Critical Care time: none Provider Statement By electronically signing this emergency patient record, the Emergency Physician/MANAGER WILLOW/PA-C attests that all entries made into the electronic medical record by isabel Pugh prior to the Physician/MANAGER WILLOW/PA-C signature reflect an accurate accounting of the evaluation and care rendered by that [facility] Physician/MANAGER WILLOW/PA-C. The Emergency Physician/MANAGER WILLOW/PA-C assumes full responsibility for those entries. The Emergency Physician/MANAGER WILLOW/PA-C also attests that any patient testing or treatment that was instituted by nursing staff in accordance to Emergency Department Preemptive Guidelines have been reviewed and unless so stated elsewhere in this patient chart, the Physician/MANAGER WILLOW/PA-C agrees with the testing and care provided. Provider Statement: By electronically signing this emergency patient record, the Emergency Physician/MANAGER WILLOW/PA-C attests that all entries made into the electronic medical record by the scribe prior to the Physician/MANAGER WILLOW/PA-C signature reflect an accurate accounting of the evaluation and care rendered by that Emergency Physic isaias/MANAGER WILLOW/PA-C. The Emergency Physician/MANAGER WILLOW/PA-C assumes full responsibility for those entries. Sara Jo 10/14/23 2214 Sara Jo 10/14/23 230 Felix Cyr DO 10/15/23 0023 [facility]02-28-2024 Emergency department Note* Felix Cyr DO - [...] this time. 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: EMS/fire personnel sales intern used?: No Fatigue Severity: Severe Timing: Constant Progression: Unchanged Associated symptoms: fatigue Problem List Items Addressed This Visit None Past Medical History: Diagnosis Date Closed fracture of transverse process of lumbar vertebra with routine healing L1-3 COPD (chronic obstructive pulmonary disease) ([facility]) Diabetes mellitus ([facility]) Fall from height of greater than [...] a 62-year-old man who is in a longterm because he apparently has some chronic encephalopathy [...] both lower lobes, unspecified aspiration pneumonia type ([facility]) Metabolic encephalopathy MDM Medical Decision Making I, [...] both lower lobes, unspecified aspiration pneumonia type ([facility]) 2. Metabolic encephalopathy Disposition: Patient's disposition: Admit Patient's condition is stable. Critical Care time: none Provider Statement By electronically signing this emergency patient record, the Emergency Physician/MANAGER WILLOW/PA-C attests that all entries made into the electronic medical record by isabel Pugh prior to the Physician/MANAGER WILLOW/PA-C signature reflect an accurate accounting of the evaluation and care rendered by that Elham kellycy Physician/MANAGER WILLOW/PA-C. The Emergency Physician/MANAGER WILLOW/PA-C assumes full responsibility for those entries. The Emergency Physician/MANAGER WILLOW/PA-C also attests that any patient testing or treatment that was instituted by nursing staff in accordance to Emergency Department Preemptive Guidelines have been reviewed and unless so stated elsewhere in this patient chart, the Physician/MANAGER WILLOW/PA-C agrees with the testing and care provided. Provider Statement: By electronically signing this emergency patient record, the Emergency Physician/MANAGER WILLOW/PA-C attests that all entries made into the electronic medical record by the scribe prior to the Physician/MANAGER WILLOW/PA-C signature reflect an accurate accounting of the evaluation and care rendered by that Emergency Physic isaias/MANAGER WILLOW/PA-C. The Emergency Physician/MANAGER WILLOW/PA-C assumes full responsibility for those entries. Sara Jo 10/14/23 2214 Sara Jo 10/14/23 2300 Felix Cyr DO 10/15/23 0023 documented in this encounterAshtabula [facility] Center02-[facility]-2024 Miscellaneous Notes* Telephone Encounter - Dori Brantley - 10/09/2023 2:34 PM EST Received fax from Demar Trivedi from a [facility]. Patient being referred for esophageal thickening with testing. The referral is incomplete. The CT that shows esophageal thickening in Care Everywhere 09/06/2023 from [facility]. Telephoned Demar Trivedi to talk to [facility] and placed on hold. The office needs ordering provider for referral and insurance information before scheduling patient. documented in this encounterAshtabula [facility] Center02-23-[facility]24 Telephone encounter Note* Telephone Encounter - Dori Brantley - 10/09/2023 2:34 PM EST [facility] Patient being referred for esophageal thickening with testing. The referral is incomplete. The CT that shows esophageal thickening in Care Everywhere 09/06/2023 from [facility]. Telephoned [facility] to talk to [facility] and placed on hold. The office needs ordering provider for referral and insurance information before scheduling patient. [facility]01-22-[facility]24 Hospital Discharge instructions* Discharge Instructions* Luna Carroll DO - 09/07/2023 12:[address] scan that was done that showed some gastric distention, and follow-up is recommended with [facility]. Please follow-up as listed, return to ER for any worsening abdominal pain, or persistent vomiting documented [facility] Author Bobby Jacobson [facility] March 03, 2023 7:21amNote Date/TimeJuly 2022 2:16[place] [address] Hospitalist Consult Note Signed Patient: Akbar Byrnes MR#: [id number] : 1960 Acct:[id number] Age/Sex: 62 / M Adm Date: 3 Loc: Room: [address] [place] [address] Type: ADM IN Attending Dr: Devin Starks [...] Marijuana Social History Comments: mobile home with [facility] ending this last week per sister Meds [...] 226 Gm Bottle TOPICAL 03/06/23 08:59 DAILY [facility] Aspirin 81 mg 03/03/23 09:00 Aspirin 81 Mg Tablet.Dr CONKLIN 03/02/24 08:59 DAILY [facility] Atorvastatin Calcium 40 mg 03/03/23 09:00 Atorvastatin 40 Mg Tablet PO 03/06/23 08:59 DAILY [facility] Cyclobenzaprine HCl 10 mg 03/03/23 01:12 Cyclobenzaprine 10 Mg Tablet PO 03/06/23 01:11 Q6HR PRN back spasms or pain Dextrose 0 gm 03/03/23 02:02 Dextrose 50% In Water 25 Gm/50 Ml Syringe IV-PUSH 03/02/24 02:01 PRN PRN Hypoglycemia Doxycycline Hyclate 100 mg 03/03/23 09:00 Doxycycline Hyclate 100 Mg Tablet PO 03/05/23 23:59 BID [facility] Glipizide 10 mg 03/03/23 08:00 Glipizide 5 [...] Insuln.Pen SUBCUT 03/02/24 16:59 DAILY.WITH.SUPPER MICH Ipratropium Ages [place] 0.5 mg 03/03/23 08:00 Ipratropium Ages [place] 0.5 Mg/2.5 Ml Vial.Neb INHALATION 03/02/24 07:59 QID.RESP [facility] Lisinopril 2.5 mg 03/03/23 09:00 Lisinopril 2.5 Mg Tablet PO 03/06/23 08:59 DAILY [facility] Metoprolol Tartrate 25 mg 03/03/23 09:00 Metoprolol Tartrate 25 Mg Tablet PO 03/06/23 08:59 BID [facility] Quetiapine Fumarate 50 mg 03/03/23 22:00 Quetiapine Fumarate 50 Mg Tablet PO 03/06/23 21:59 QHS MICH Tamsulosin HCl 0.4 mg 03/03/23 09:00 Tamsulosin 0.4 Mg Cap.Er.24h PO 03/06/23 08:59 DAILY [facility] Exam Physical Exam Vital Signs: Temp Pulse [...] Appearance Clear, Urine pH 6.5, Ur Specific [place] 1.028, Urine Protein Trace H, Urine Glucose [...] % (Auto) 63.6, Lymph % (Auto) 27.3, [place] % (Auto) 6.2, Eos % (Auto) 2.3, Baso % (Auto) 0.6, Nucleat RBC Rel Count 0.2, Neut # (Auto) 5.9,Lymph # (Auto) 2.5, [place] # (Auto) 0.6, Eos # (Auto) 0.2, [...] <Electronically signed by Bobby Jacobson MD> 03/03/23720 [facility] Work Phone: Consult note Author Giuseppe Bailey [facility] March 03, 2023 12:59pmNote Date/TimeJuly 2022 8:29[place] [address] Pulmonology Consult Note Signed Patient: Akbar Byrnes MR#: [id number] : 1960 Acct:[id number] Age/Sex: 62 / M Adm Date: 3 Loc: Room: [address] [place] [address] Type: ADM IN Attending Dr: Devin Starks [...] Marijuana Social History Comments: mobile home with [facility] ending this last week per sister Meds [...] 03/02/23 CT/CT chest w con: traumatic injury ([id number]) CT/CT abdomen pelvis w con: traumatic injury [...] <Electronically signed by MD Giuseppe Bailey> 03/03/23 9897 [facility] Work Phone: Consult note Author Joon Pascal [facility] March 04, 2023 7:31amNote Date/TimeJuly 2022 7:31am[place] [address] Neurosurgery Consult Note Signed Patient: Akbar Byrnes MR#: [id number] : 1960 Acct:[id number] Age/Sex: 62 / M Adm Date: 3 Loc: Room: [address] [place] [address] Type: ADM IN Attending Dr: Devin Starks [...] Marijuana Social History Comments: mobile home with [facility] ending this last week per sister Meds [...] intact and symmetrical Deltoid bicep tricep and facepiece line supervisor 5/5 bilateral Upper extremity sensory normal to [...] Neut % (Auto) 64.8, Lymph % (Auto)24.8, [place] % (Auto) 7.4, Eos % (Auto) 2.1, Baso % (Auto) 0.9, Nucleat RBC Rel Count 0.2, Neut # (Auto) 8.0 H, Lymph # (Auto) 3.1, [place] # (Auto) 0.9 H, Eos # (Auto) 0.3, Baso # (Auto) 0.1, Platelet Estimate Normal, Plt Morphology Comment Normal, RBC Morphology N/A, Polychromasia Slight, Hypochromasia Slight, Ovalocytes Slight 03/03/23 01:42: POC Glucose 312 03/02/23 21:25: Urine Color Yellow, Urine Appearance Clear, Urine pH 6.5, Ur Specific [place] 1.028, Urine Protein Trace H, Urine Glucose [...] % (Auto) 63.6, Lymph % (Auto) 27.3, [place] % (Auto) 6.2, Eos % (Auto) 2.3, Baso % (Auto) 0.6, Nucleat RBC Rel Count 0.2, Neut # (Auto) 5.9,Lymph # (Auto) 2.5, [place] # (Auto) 0.6, Eos # (Auto) 0.2, [...] signed by MD Joon Pascal> 03/04/23 0731 [facility] Work Phone: Evaluation noteNo assessment information available [facility] Work Phone: Evaluation note* Diagnosis Generalized abdominal pain- Primary Abdominal pain, generalized [facility] Diagnosis Aspiration pneumonia of both lower lobes, unspecified aspiration pneumonia type (CMS-HCC)- Primary Aspiration pneumonia of both lower lobes, unspecified aspiration pneumonia type (CMS-HCC) Metabolic encephalopathy Essential hypertension Unspecified essential hypertension Diabetic autonomic neuropathy associated with type 2 diabetes mellitus ([facility]) Type II or unspecified type diabetes mellitus with neurological manifestations, not stated as uncontrolled Chronic obstructive pulmonary disease ([facility]) Mixed hyperlipidemia Metabolic encephalopathy Altered mental [...] lobes due to gastric secretions (CMS-[facility]) Smoking addiction Cigarette nicotine dependence, uncomplicated Chronic obstructive pulmonary disease, unspecified COPD type ([facility]) [facility] Diagnosis Panlobular emphysema (CMS-[facility])- Primary Other emphysema documented in this [facility]* Diagnosis Vocal fold paralysis, bilateral- Primary Bilateral complete paralysis of vocal cords or larynx Dysphonia Pharyngoesophageal dysphagia Dysphagia, pharyngoesophageal phase Aspiration pneumonia of both lower lobes due to gastric secretions ([facility]) documented in this [facility]* Diagnosis Vocal fold paralysis, bilateral- Primary Bilateral complete paralysis of vocal cords or larynx Dysphonia Pharyngoesophageal dysphagia Dysphagia, pharyngoesophageal phase documented in this encounter [facility]* Diagnosis Learning disability- Primary Other specific developmental learning difficulties History of subdural hematoma (post traumatic) History of substance abuse ([facility]) Other, mixed, or unspecified nondependent drug abuse, unspecified [facility] encounter [facility]History and physical note Author Devin Starks [facility] March 03, 2023 7:55amNote Date/TimeJuly 2022 7:49[place] [address] General Surgery H&P Signed Patient: Akbar Byrnes MR#: [id number] : 1960 Acct:[id number] Age/Sex: 62 / M Adm Date: 3 Loc: Room: [address] [place] [address] Type: ADM IN Attending Dr: Devin Starks [...] Marijuana Social History Comments: mobile home with [facility] ending this last week per sister Meds [...] Neut % (Auto) 64.8, Lymph % (Auto)24.8, [place] % (Auto) 7.4, Eos % (Auto) 2.1, Baso % (Auto) 0.9, Nucleat RBC Rel Count 0.2, Neut # (Auto) 8.0 H, Lymph # (Auto) 3.1, [place] # (Auto) 0.9 H, Eos # (Auto) 0.3, Baso # (Auto) 0.1, Platelet Estimate Normal, Plt Morphology Comment Normal, RBC Morphology N/A, Polychromasia Slight, Hypochromasia Slight, Ovalocytes Slight 03/03/23 01:42: POC Glucose 312 03/02/23 21:25: Urine Color Yellow, Urine Appearance Clear, Urine pH 6.5, Ur Specific [place] 1.028, Urine Protein Trace H, Urine Glucose [...] % (Auto) 63.6, Lymph % (Auto) 27.3, [place] % (Auto) 6.2, Eos % (Auto) 2.3, Baso % (Auto) 0.6, Nucleat RBC Rel Count 0.2, Neut # (Auto) 5.9,Lymph # (Auto) 2.5, [place] # (Auto) 0.6, Eos # (Auto) 0.2, [...] signed by DO Devin Starks> 03/03/23 0755 [facility] Work Phone: Hospital Discharge instructions Additional [...] worsening of your eyesight. Please call your systems navigator during normal business hours. If after business hours call Dr. Migel Zavaleta at his cell [phone] or his office [phone].[facility] Work Phone: Hospital Discharge instructionsNot on filedocumented in this encounterPro[facility] Health SystemInstructionsNot on filedocumented in this encounterProSamar[facility] Health SystemInstructionsNot on filedocumented in this encounterProWashington [facility] Health SystemInstructionsNot on filedocumented in this encounterPro[facility] Health SystemInstructionsNot on filedocumented in this encounterProSamaritan [facility] Health SystemInstructionsNot on filedocumented in this encounterProSam[facility]itan [facility] Health SystemInstructionsNot on filedocumented in this encounterProWashington [facility] Hospital Health SystemInstructionsNot on filedocumented in this encounterProOhiohealth [facility] SystemProgress note Author Fermin Rodríguez [facility] March 03, 2023 11:48amNote Date/TimeJuly 2022 11:40[place] [id number] Progress Note Signed Patient: Akbar Byrnes MR#: [id number] : 1960 Acct:[id number] Age/Sex: 62 / M Adm Date: 3 Loc: 4C Room: 1W8448-3 Type: ADM IN Attending Dr: Devin Starks [...] signed by Fermin Rodríguez DO> 03/03/23 1148 [facility] Work Phone: Progress note Author Giuseppe Bailey [facility] March 04, 2023 8:11pmNote Date/TimeJuly 2022 7:26[place] [address] Pulmonology Progress Note Signed Patient: Akbar Byrnes MR#: [id number] : 1960 Acct:[id number] Age/Sex: 62 / M Adm Date: 3 Loc: 4C Room: 0B3739-1 Type: ADM IN Attending Dr: Devin Starks [...] pneumothorax. Documented By: Giuseppe Bailey MD [id number] Signed By: <Electronically signed by MD Giuseppe Bialey> 03/04/232010 [facility] Work Phone: Progress note Author Devin Starks [facility] March 04, 2023 8:54amNote Date/TimeJuly 2022 8:54am[place] [address] General Surgery Progress Note Signed Patient: Akbar Byrnes MR#: [id number] : 1960 Acct:[id number] Age/Sex: 62 / M Adm Date: 3 Loc: Room: [address] [place] [address] Type: ADM IN Attending Dr: Devin Starks [...] 100 Mg Tablet) 100 mg PO BID [facility] Stop: 03/05/23 23:59 Last Admin: 03/04/23 08:39 Dose: 100 mg Enoxaparin Sodium (Enoxaparin 40 Mg/0.4 Ml Syringe) 40 mg SUBCUT DAILY@1000 [facility] Stop: 03/02/24 09:59 Last Admin: 03/03/23 10:07 Dose: 40 mg Famotidine (Famotidine/Pf 20 Mg/2 Ml Vial) 20 mg IV-PUSH Q12HR [facility] Stop: 03/02/24 08:59 Last Admin: 03/04/23 08:46 Dose: 20 mg Glipizide (Glipizide 5 Mg Tablet) 10 mg PO DAILY.8A [facility] Stop: 03/07/23 07:59 Glucose (Dextrose 40% Gel [...] Units/3 Ml Insuln.Pen) 40 units SUBCUT DAILY.WITH.SUPPER [facility] Stop: 03/02/24 16:59 Last Admin: 03/03/23 16:53 Dose: Not Given Ipratropium Ages [place] (Ipratropium Ages [place] 0.5 Mg/2.5 Ml Vial.Neb) 0.5 mg INHALATION QID.RESP [facility] Stop: 03/02/24 07:59 Last Admin: 03/03/23 21:40 Dose: Not Given Lisinopril (Lisinopril 2.5 Mg Tablet) 2.5 mg PO DAILY [facility] Stop: 03/06/23 08:59 Last Admin: 03/04/23 08:39 Dose: 2.5 mg Metoprolol Tartrate (Metoprolol Tartrate 25 Mg Tablet) 25 mg PO BID [facility] Stop: 03/06/23 08:59 Last Admin: 03/04/23 08:39 [...] 0.4 Mg Cap.Er.24h) 0.4 mg PO DAILY [facility] Stop: 03/06/23 08:59 Last Admin: 03/04/23 08:39 [...] % (Auto) 66.9, Lymph % (Auto) 22.8, [place] % (Auto) 8.8, Eos % (Auto) 1.1, Baso % (Auto) 0.4, Nucleat RBC Rel Count 0.1, Neut # (Auto) 7.9 H, Lymph # (Auto) 2.7, [place] # (Auto) 1.0 H, Eos # (Auto) 0.1, Baso # (Auto) 0.1 03/03/23 16:32: POC Glucose 175 03/03/23 12:14: POC Glucose 338 03/03/23 09:56: Urine Color Yellow, Urine Appearance Clear, Urine pH 6.0, Ur Specific [place] 1.029, Urine Protein Trace H, Urine Glucose [...] Neut % (Auto) 64.8, Lymph % (Auto)24.8, [place] % (Auto) 7.4, Eos % (Auto) 2.1, Baso % (Auto) 0.9, Nucleat RBC Rel Count 0.2, Neut # (Auto) 8.0 H, Lymph # (Auto) 3.1, [place] # (Auto) 0.9 H, Eos # (Auto) 0.3, Baso # (Auto) 0.1, Platelet Estimate Normal, Plt Morphology Comment Normal, RBC Morphology N/A, Polychromasia Slight, Hypochromasia Slight, Ovalocytes Slight 03/03/23 01:42: POC Glucose 312 07/17/23 21:25: Urine Color Yellow, Urine Appearance Clear, Urine pH 6.5, Ur Specific [place] 1.028, Urine Protein Trace H, Urine Glucose [...] % (Auto) 63.6, Lymph % (Auto) 27.3, [place] % (Auto) 6.2, Eos % (Auto) 2.3, Baso % (Auto) 0.6, Nucleat RBC Rel Count 0.2, Neut # (Auto) 5.9,Lymph # (Auto) 2.5, [place] # (Auto) 0.6, Eos # (Auto) 0.2, [...] <Electronically signed by DO Devin Starks> 03/04/23 7461 [facility] Work Phone: Progress note Author Fermin [facility] March 04, 2023 6:07pmNote Date/TimeJuly 2022 6:08pmNew [place] [address] Hospitalist Progress Note Signed Patient: Akbar Byrnes MR#: [id number] : 1960 Acct:[id number] Age/Sex: 62 / M Adm Date: 3 Loc: Room: [address] [place] [address] Type: ADM IN Attending Dr: Devin Starks [...] 5 Mg Tablet PO 03/07/23 07:59 DAILY.8A [facility] Glucose 0 gm 03/03/23 02:02 Dextrose 40% [...] Ml Insuln.Pen SUBCUT 03/02/24 07:59 Not Given TID.WM.[facility] Protocol Insulin Glargine 20 units 03/04/23 22:00 Insulin Glargine 300 Units/3 Ml Insuln.Pen SUBCUT 03/03/24 21:59 [facility] Ipratropium Ages [place] 0.5 mg 03/03/23 08:00 03/04/23 16:17 Ipratropium Ages [place] 0.5 Mg/2.5 Ml Vial.Neb INHALATION 03/02/24 07:59 [...] signed by Fermin Rodríguez DO> 03/04/[address] [place] [address] Work Phone: Progress note Author Devin Starks [facility] March 05, 2023 8:38amNote Date/TimeJuly 2022 8:38am[place] [address] General Surgery Progress Note Signed Patient: Akbar Byrnes MR#: [id number] : 1960 Acct:[id number] Age/Sex: 62 / M Adm Date: 3 Loc: Room: [address] [place] [address] Type: ADM IN Attending Dr: Devin Starks [...] 226 Gm Bottle) 1 applic TOPICAL DAILY [facility] Stop: 03/06/23 08:59 Last Admin: 03/04/23 08:39 [...] Mg/0.4 Ml Syringe) 40 mg SUBCUT DAILY@1000 [facility] Stop: 03/02/24 09:59 Last Admin: 03/04/23 10:53 Dose: 40 mg Famotidine (Famotidine/Pf 20 Mg/2 Ml Vial) 20 mg IV-PUSH Q12HR [facility] Stop: 03/02/24 08:59 Last Admin: 03/04/23 21:39 Dose: 20 mg Glipizide (Glipizide 5 Mg Tablet) 10 mg PO DAILY.8A [facility] Stop: 03/07/23 07:59 Glucose (Dextrose 40% Gel [...] Units/3 Ml Insuln.Pen) 0 units SUBCUT TID.WM.HS [facility]; Protocol Stop: 03/02/24 07:59 Last Admin: 03/04/23 21:41 Dose: 3 units Insulin Glargine (Insulin Glargine 300 Units/3 Ml Insuln.Pen) 20 units SUBCUT QHS [facility] Stop: 03/03/24 21:59 Last Admin: 03/04/23 21:41 Dose: 20 units Ipratropium Ages [place] (Ipratropium Ages [place] 0.5 Mg/2.5 Ml Vial.Neb) 0.5 mg INHALATION QID.RESP [facility] Stop: 03/02/24 07:59 Last Admin: 03/04/23 20:46 Dose: 0.5 mg Lisinopril (Lisinopril 2.5 Mg Tablet) 2.5 mg PO DAILY [facility] Stop: 03/06/23 08:59 Last Admin: 03/04/23 08:39 Dose: 2.5 mg Metoprolol Tartrate (Metoprolol Tartrate 25 Mg Tablet) 25 mg PO BID [facility] Stop: 03/06/23 08:59 Last Admin: 03/04/23 23:15 Dose: 25 mg Quetiapine Fumarate (Quetiapine Fumarate 50 Mg Tablet) 50 mg PO QHS [facility] Stop: 03/06/23 21:59 Last Admin: 03/04/23 21:39 Dose: 50 mg Sodium Chloride (Sodium Chloride 0.9 % 10 Ml Vial.Pf) 10 ml INJECTION PRN PRN PRN Reason: To dilute Pepcid Stop: 03/02/24 07:55 Last Admin: 03/04/23 21:39 Dose: 10 ml Tamsulosin HCl (Tamsulosin 0.4 Mg Cap.Er.24h) 0.4 mg PO DAILY [facility] Stop: 03/06/23 08:59 Last Admin: 03/04/23 08:39 [...] % (Auto) 66.9, Lymph % (Auto) 22.8, [place] % (Auto) 8.8, Eos % (Auto) 1.1, Baso % (Auto) 0.4, Nucleat RBC Rel Count 0.1, Neut # (Auto) 7.9 H, Lymph # (Auto) 2.7, [place] # (Auto) 1.0 H, Eos # (Auto) 0.1, Baso # (Auto) 0.1 03/03/23 22:23: POC Glucose 177 03/03/23 21:48: POC Glucose 42 L* 03/03/23 16:32: POC Glucose 175 03/03/23 12:14: POC Glucose 338 03/03/23 09:56: Urine Color Yellow, Urine Appearance Clear, Urine pH 6.0, Ur Specific [place] 1.029, Urine Protein Trace H, Urine Glucose [...] signed by DO Devin Starks> 03/05/23 0838 [facility] Work Phone: Progress note Author [facility] March 05, 2023 6:57pmNote Date/TimeJuly 2022 6:57pm[place] [address] Hospitalist Progress Note Signed Patient: Akbar Byrnes MR#: [id number] : 1960 Acct:[id number] Age/Sex: 62 / M Adm Date: 3 Loc: 4N Room: [address] [place] [address] Type: ADM IN Attending Dr: Devin Starks [...] 21:59 20 units QHS [facility] Administration Ipratropium Ages [place] 0.5 mg 03/03/23 08:00 03/05/23 15:45 Ipratropium Ages [place] 0.5 Mg/2.5 Ml Vial.Neb INHALATION 03/02/24 07:59 [...] <Electronically signed by Fermin Rodríguez, > 03/05/23 3638 [facility] Work Phone: Progress note Author Devin Starks [facility] March 06, 2023 8:49amNote Date/TimeJuly 2022 8:43am[place] [address] General Surgery Progress Note Signed Patient: Akbar Byrnes MR#: [id number] : 1960 Acct:[id number] Age/Sex: 62 / M Adm Date: 3 Loc: Room: [address] [place] [address] Type: ADM IN Attending Dr: Devin Starks [...] 226 Gm Bottle) 1 applic TOPICAL DAILY [facility] Stop: 03/06/23 08:59 Last Admin: 03/05/23 08:52 Dose: 1 applic Aspirin (Aspirin 81 Mg Tablet.Dr) 81 mg PO DAILY [facility] Stop: 03/02/24 08:59 Last Admin: 03/05/23 08:51 Dose: 81 mg Atorvastatin Calcium (Atorvastatin 40 Mg Tablet) 40 mg PO DAILY [facility] Stop: 03/06/23 08:59 Last Admin: 03/05/23 08:51 Dose: 40 mg Dextrose (Dextrose 50% In Water 25 Gm/50 Ml Syringe) 0 gm IV-PUSH PRN PRN PRN Reason: Hypoglycemia Stop: 03/02/24 02:01 Last Admin: 03/04/23 08:40 Dose: 25 gm Docusate Sodium (Docusate 100 Mg Capsule) 100 mg PO BID [facility] Stop: 03/02/24 08:59 Last Admin: 03/05/23 22:15 Dose: 100 mg Enoxaparin Sodium (Enoxaparin 40 Mg/0.4 Ml Syringe) 40 mg SUBCUT DAILY@1000 [facility] Stop: 03/02/24 09:59 Last Admin: 03/05/23 10:18 Dose: 40 mg Famotidine (Famotidine 20 Mg Tablet) 20 mg PO BID [facility] Stop: 03/04/24 08:59 Last Admin: 03/05/23 22:15 Dose: 20 mg Glipizide (Glipizide 5 Mg Tablet) 10 mg PO DAILY.8A [facility] Stop: 03/07/23 07:59 Glucose (Dextrose 40% Gel 15 Gm Tube) 0 gm PO PRN PRN PRN Reason: Hypoglycemia Stop: 03/02/24 02:01 Guaifenesin (Guaifenesin 600 Mg Tab.Er.12h) 1,200 mg PO BID [facility] Stop: 03/04/24 20:59 Last Admin: 03/05/23 22:14 Dose: 1,200 mg Hydromorphone HCl (Hydromorphone 1 Mg/Ml Syringe) 0.5 mg IV-PUSH Q3H PRN PRN Reason: pain Last Admin: 03/06/23 06:43 Dose: 0.5 mg Insulin Aspart (Insulin Aspart 300 Units/3 Ml Insuln.Pen) 0 units SUBCUT TID..[facility]; Protocol Stop: 03/02/24 07:59 Last Admin: 03/05/23 22:16 Dose: 8 units Insulin Glargine (Insulin Glargine 300 Units/3 Ml Insuln.Pen) 20 units SUBCUT QHS [facility] Stop: 03/03/24 21:59 Last Admin: 03/05/23 22:54 Dose: 20 units Ipratropium Ages [place] (Ipratropium Ages [place] 0.5 Mg/2.5 Ml Vial.Neb) 0.5 mg INHALATION QID.RESP [facility] Stop: 03/02/24 07:59 Last Admin: 03/05/23 20:13 Dose: Not Given Lisinopril (Lisinopril 2.5 Mg Tablet) 2.5 mg PO DAILY [facility] Stop: 03/06/23 08:59 Last Admin: 03/05/23 08:51 Dose: 2.5 mg Metoprolol Tartrate (Metoprolol Tartrate 25 Mg Tablet) 25 mg PO BID [facility] Stop: 03/06/23 08:59 Last Admin: 03/05/23 22:16 Dose: 25 mg Pregabalin (Pregabalin 75 Mg Capsule) 75 mg PO BID [facility] Stop: 09/01/23 12:59 Last Admin: 03/05/23 22:15 Dose: 75 mg Quetiapine Fumarate (Quetiapine Fumarate 50 Mg Tablet) 50 mg PO QHS [facility] Stop: 03/06/23 21:59 Last Admin: 03/05/23 22:15 Dose: 50 mg Tamsulosin HCl (Tamsulosin 0.4 Mg Cap.Er.24h) 0.4 mg PO DAILY [facility] Stop: 03/06/23 08:59 Last Admin: 03/05/23 08:52 [...] signed by DO Devin Starks> 03/06/23 0849 [facility] Work Phone: progress note Author Giuseppe Bailey [facility] March 06, 2023 1:37pmNote Date/TimeJuly 2022 1:37[address] [address] Progress Note Signed Patient: Akbar Byrnes MR#: [id number] : 1960 Acct:[id number] Age/Sex: 62 / M Adm Date: 3 Loc: N Room: 5J3084-1 Type: ADM IN Attending Dr: Devin Starks [...] <Electronically signed by MD Giuseppe Bailey> 03/06/237 [facility] Work Phone: progress note Author Fermin Rodríguez [facility] March 06, 2023 4:08pmNote Date/TimeJuly 2022 4:[address]pm[address] [address] Hospitalist Progress Note Signed Patient: Akbar Byrnes MR#: [id number] : 1960 Acct:[id number] Age/Sex: 62 / M Adm Date: 3 Loc: 4N Room: 3M8020-9 Type: ADM IN Attending Dr: Devin Starks DO Copies to: ~ Date of Service: 03/06/2023 Subjective Subjective Narrative: I personally saw and examined patient at the bedside this afternoon. No new complaints. Now on [facility] floor. Physical Examination: GENERAL APPEARANCE: Alert, [...] 21:59 20 units QHS [facility] Administration Ipratropium Ages [place] 0.5 mg 03/03/23 08:00 03/06/23 15:39 Ipratropium Ages [place] 0.5 Mg/2.5 Ml Vial.Neb INHALATION 03/02/24 07:59 [...] <Electronically signed by Fermin Rodríguez, > 03/06/23 5211 [facility] Work Phone: Progress note Author Devin Starks [facility] March 07, 2023 12:21pmNote Date/TimeJuly 2022 12:21pm[place] [address] General Surgery Progress Note Signed Patient: Akbar Byrnes MR#: [id number] : 1960 Acct:[id number] Age/Sex: 62 / M Adm Date: 3 Loc: 4N Room: [address] [place] [address] Type: ADM IN Attending Dr: Devin Starks [...] 100 Mg Capsule) 100 mg PO BID [facility] Stop: 03/02/24 08:59 Last Admin: 03/07/23 08:05 Dose: 100 mg Enoxaparin Sodium (Enoxaparin 40 Mg/0.4 Ml Syringe) 40 mg SUBCUT DAILY@1000 [facility] Stop: 03/02/24 09:59 Last Admin: 03/07/23 09:32 Dose: 40 mg Famotidine (Famotidine 20 Mg Tablet) 20 mg PO BID [facility] Stop: 03/04/24 08:59 Last Admin: 03/07/23 08:05 Dose: 20 mg Glucose (Dextrose 40% Gel 15 Gm Tube) 0 gm PO PRN PRN PRN Reason: Hypoglycemia Stop: 03/02/24 02:01 Guaifenesin (Guaifenesin 600 Mg Tab.Er.12h) 1,200 mg PO BID [facility] Stop: 03/04/24 20:59 Last Admin: 03/07/23 08:05 Dose: 1,200 mg Hydromorphone HCl (Hydromorphone 1 Mg/Ml Syringe) 0.5 mg IV-PUSH Q3H PRN PRN Reason: pain Last Admin: 03/07/23 10:59 Dose: 0.5 mg Insulin Aspart (Insulin Aspart 300 Units/3 Ml Insuln.Pen) 0 units SUBCUT TID.WM.HS [facility]; Protocol Stop: 03/02/24 07:59 Last Admin: 03/07/23 11:58 Dose: 4 units Insulin Glargine (Insulin Glargine 300 Units/3 Ml Insuln.Pen) 20 units SUBCUT QHS [facility] Stop: 03/03/24 21:59 Last Admin: 03/06/23 23:00 Dose: 20 units Ipratropium Ages [place] (Ipratropium Ages [place] 0.5 Mg/2.5 Ml Vial.Neb) 0.5 mg INHALATION QID.RESP [facility] Stop: 03/02/24 07:59 Last Admin: 03/07/23 11:09 Dose: 0.5 mg Pregabalin (Pregabalin 75 Mg Capsule) 75 mg PO BID [facility] Stop: 09/01/23 12:59 Last Admin: 03/07/23 08:05 [...] signed by DO Devin Starks> 03/07/23 1221 [facility] Work Phone: Progress note Author [facility] March 07, 2023 6:00pmNote Date/TimeJuly 2022 6:00pm[place] [address] Hospitalist Progress Note Signed Patient: Akbar Byrnes MR#: [id number] : 1960 Acct:[id number] Age/Sex: 62 / M Adm Date: 3 Loc: Room: [address] [place] [address] Type: ADM IN Attending Dr: Devin Starks [...] Insuln.Pen SUBCUT 03/06/24 21:59 QHS [facility] Ipratropium Ages [place] 0.5 mg 03/03/23 08:00 03/07/23 15:31 Ipratropium Ages [place] 0.5 Mg/2.5 Ml Vial.Neb INHALATION 03/02/24 07:59 0.5 mg QID.RESP [facility] Administration Pregabalin 75 mg 03/05/23 13:00 03/07/23 08:05 Pregabalin 75 Mg Capsule PO 09/01/23 12:59 75 mg BID [facility] Administration Documented By: Fermin Rodríguez DO 03/07/23 17 59 Signed By: <Electronically signed by Fermin Rodríguez DO> 03/07/23 1800 [facility] Work Phone: Progress note Author Devin Starks [facility] March 08, 2023 1:35pmNote Date/TimeJuly 2022 1:35pm[place] [address] General Surgery Progress Note Signed Patient: Akbar Byrnes MR#: [id number] : 1960 Acct:[id number] Age/Sex: 62 / M Adm Date: 3 Loc: 4N Room: [address] [place] [address] Type: ADM IN Attending Dr: Devin Starks [...] 81 Mg Tablet.Dr) 81 mg PO DAILY [facility] Stop: 03/02/24 08:59 Last Admin: 03/08/23 09:35 Dose: 81 mg Dextrose (Dextrose 50% In Water 25 Gm/50 Ml Syringe) 0 gm IV-PUSH PRN PRN PRN Reason: Hypoglycemia Stop: 03/02/24 02:01 Last Admin: 03/04/23 08:40 Dose: 25 gm Docusate Sodium (Docusate 100 Mg Capsule) 100 mg PO BID [facility] Stop: 03/02/24 08:59 Last Admin: 03/08/23 09:26 Dose: 100 mg Enoxaparin Sodium (Enoxaparin 40 Mg/0.4 Ml Syringe) 40 mg SUBCUT DAILY@1000 [facility] Stop: 03/02/24 09:59 Last Admin: 03/08/23 09:35 Dose: 40 mg Famotidine (Famotidine 20 Mg Tablet) 20 mg PO BID [facility] Stop: 03/04/24 08:59 Last Admin: 03/08/23 09:26 Dose: 20 mg Glucose (Dextrose 40% Gel 15 Gm Tube) 0 gm PO PRN PRN PRN Reason: Hypoglycemia Stop: 03/02/24 02:01 Guaifenesin (Guaifenesin 600 Mg Tab.Er.12h) 1,200 mg PO BID [facility] Stop: 03/04/24 20:59 Last Admin: 03/08/23 09:35 Dose: 1,200 mg Hydromorphone HCl (Hydromorphone 1 Mg/Ml Syringe) 0.5 mg IV-PUSH Q3H PRN PRN Reason: pain Last Admin: 03/08/23 11:28 Dose: 0.5 mg Insulin Aspart (Insulin Aspart 300 Units/3 Ml Insuln.Pen) 0 units SUBCUT TID.WM.HS [facility]; Protocol Stop: 03/02/24 07:59 Last Admin: 03/08/23 12:08 Dose: 8 units Insulin Glargine (Insulin Glargine 300 Units/3 Ml Insuln.Pen) 30 units SUBCUT QHS [facility] Stop: 03/06/24 21:59 Last Admin: 03/07/23 21:25 Dose: 30 units Ipratropium Ages [place]side (Ipratropium Ages [place]side 0.5 Mg/2.5 Ml Vial.Neb) 0.5 mg INHALATION QID.RESP MICH Stop: 03/02/24 07:59 Last Admin: 03/08/23 11:44 Dose: 0.5 mg Pregabalin (Pregabalin 75 Mg Capsule) 75 mg PO BID [facility] Stop: 09/01/23 12:59 Last Admin: 03/08/23 09:26 [...] signed by DO Devin Starks> 03/08/23 1335 [facility] Work Phone: Progress note Author [facility] March 08, 2023 3:17pmNote Date/TimeJuly 2022 3:17pm[place] [address] Hospitalist Progress Note Signed Patient: Akbar Byrnes MR#: [id number] : 1960 Acct:[id number] Age/Sex: 62 / M Adm Date: 3 Loc: 4N Room: [address] [place] [address] Type: ADM IN Attending Dr: Devin Starks [...] Insuln.Pen SUBCUT 03/06/24 21:59 QHS MICH Ipratropium Ages [place]side 0.5 mg 03/03/23 08:00 03/08/23 11:44 Ipratropium Ages [place] 0.5 Mg/2.5 Ml Vial.Neb INHALATION 03/02/24 07:59 0.5 mg QID.RESP MICH Administration Methylnaltrexone Ages [place]side 12 mg 03/08/23 15:12 Methylnaltrexone Ages [place] 12 Mg/0.6 Ml Vial SUBCUT 03/08/23 15:13 [...] <Electronically signed by Fermin Rodríguez DO> 03/08/23 2495 [facility] Work Phone: Reason for referral (narrative)* Consultation (Routine) - Pending ReviewSpecialtyDiagnoses / ProceduresReferred By Contact Referred To ContactNeurology Diagnoses Toxic encephalopathy Luca Méndez MD [address] [employer], [facility] [address] [place] [address] [facility] [address] [place] [address] Referral IDStatusReasonStart DateExpiration DateVisits RequestedVisits [id number] Review Specialty Services Required * Consultation (Routine) - Pending ReviewSpecialtyDiagnoses / ProceduresReferred By ContactReferred To ContactPulmonary Medicine Diagnoses Aspiration pneumonia of both lower lobes due to gastric secretions (CMS-HCC) Luca Mén[place] [address] [place] [address] [address] [place] [address] [place] [address] [place] [address] [address] [place] [address] Referral IDStatReEast [facility] DateExpiration DateVisits RequestedVisits [id number] Review Specialty Services Required * Diagnostic Imaging (Routine) - Pending ReviewSpecialtyDiagnoses / Procedures Referred By ContactReferred To Contact Diagnoses Aspiration pneumonia of both lower lobes due to gastric secretions (CMS-HCC) Procedures Fluoroscopy swallow motility function Luca Méndez MD [address] [facility] [address] [place] [address] Referral IDStatusReasonFresno DateExpiration DateVisits RequestedVisits [id number] Review [facility] Summary Purpose Family History No Family History [...] Order03/29/2024 1:53 PMAdvance Directive03/08/2024 8:49 PMAvanced Directive [id number] ActivatedDate InactivatedComments10/15/2023 9:17 AM 10/19/2023 6:39 PMDate ActivatedDate InactivatedComments11/10/2022 1:16 AM11/21/2022 2:20 PMDate ActivatedDate InactivatedComments10/23/2022 9:24 PM10/30/2022 7:58 PM TypeDate RecordedPatient RepresentativeExplanationDNR Physician Order03/29/2024 1:53 PMAdvance Directive03/08/2024 8:49 PMAvanced Directive [id number] ActivatedDate InactivatedComments10/15/2023 9:17 AM10/19/2023 6:39 PMDate Activated [...] both lower lobes, unspecified aspiration pneumonia type ([facility]-HCC) Miguel Paulino, 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[employer]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 [address], [place] [address] Referral IDStatusReasonFresno DateExpiration DateVisits RequestedVisits [id number] Review Specialty Services Required [id number] / ProceduresReferred By ContactReferred To ContactRehabilitation Diagnoses Aspiration pneumonia of both lower lobes, unspecified aspiration pneumonia type ([facility]-HCC) Miguel Paulino, 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-[employer]AP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 [address], [place] [address] Referral IDStatusReasonStpine valley DateExpiration DateVisits RequestedVisits [id number] Review Specialty Services Required [id number] / ProceduresReferred By ContactReferred To Contact Diagnoses Aspiration pneumonia of both lower lobes, unspecified aspiration pneumonia type (CMS-HCC) Miguel Paulino, 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-[employer]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 [address], [place] [address] Referral IDStatusReasonStart DateExpiration DateVisits RequestedVisits [id number] [id number] / Procedures Referred By ContactReferred To Contact Diagnoses Aspiration pneumonia of both lower lobes, unspecified aspiration pneumonia type ([facility]) Procedures Follow-up with primary care provider Miguel Paulino, 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-[employer]AP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 [address], [place] [address] Referral IDStatusReasonStart DateExpiration DateVisits RequestedVisits [id number] [id number] / Procedures Referred By ContactReferred To Contact Procedures Adult diet Miguel Paulino, 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-[employer]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 [address], [place] [address] Referral IDStatusReasonStart DateExpiration DateVisits RequestedVisits [id number] [id number] / Procedures Referred By ContactReferred To Contact Diagnoses Chronic obstructive pulmonary disease, unspecified COPD type ([facility]) Betsy Iraheta, DO [address] [address] Referral IDStatusReasonStart DateExpiration DateVisits RequestedVisits [id number] IDStatusReasonStart DateExpiration DateVisits RequestedVisits [id number] Review [id number] / ProceduresReferred By ContactReferred To ContactRadiology Diagnoses Cigarette nicotine dependence, uncomplicated Procedures CT low dose lung screening (Annual) Betsy Iraheta, DO [address] [address] Referral IDStatusReasonStart DateExpiration DateVisits RequestedVisits [id number] Review/ Additional Source Comments (unrecognized sect ion and content) No Status Records FoundNo Status Records FoundNo Status Records FoundNo Status Records FoundNo Status Records FoundNo Status Records FoundNo Status Records Found INFORMATION SOURCE (unrecogn ized section and content) DATE CREATED AUTHOR 10/25/2022 [facility] DATE CREATED AUTHOR AUTHOR'S ORGANIZ ATION 12/11/2022 [facility] DATE CREATED AUTHOR AUTHOR'S ORGANIZ ATION 09/30/2023 [facility] DATE CREATED AUTHOR AUTHOR'S ORGANIZ ATION 07/09/2024 [facility] DATE CREATED AUTHOR AUTHOR'S ORGANIZ ATION 01/19/2025 [facility] DATE CREATED AUTHOR AUTHOR'S ORGANIZ ATION 05/05/2025 [facility] DATE CREATED AUTHOR AUTHOR'S ORGANIZ ATION 05/31/2025 [facility] Care Teams (unrecognized sec tion and [...] DateEnd Date Shaikh Villar MD [address] [place] [address] PCP - GeneralInternal Medicine08/17/22Team MemberRelationshipSpecialtyStart Date End Date Rowdy Oswald MD [address] [place] [address] PCP - GeneralInternal [facility]10/14/23Te MemberRelationshipSpecialtyStart Date End Date Rowdy Oswald MD [address] [place] [address] [facility]/23Te MemberRelationshipSpecialtyStart Date End Date Rowdy Oswald MD [address] [place] [address] [facility]/14/23Te MemberRelationshipSpecialtyStart Date End Date Rowdy Oswald MD [address] [place] [address] PCP - GeneralInternal [facility]10/14/23Te MemberRelationshipSpecialtyStart Date End Date Rowdy Oswald MD [address] [place] [address] PCP - GeneralInternal Medicine10/14/23Te MemberRelationshipSpecialtyStart Date End Date Rowdy Oswald MD [address] [place] [address] PCP - GeneralInternal Medicine10/14/23Team MemberRelationshipSpecialtyStart Date End Date Rowdy Oswald MD [address] [place] [address] PCP - GeneralInternal Medicine10/14/23Team MemberRelationshipSpecialtyStart Date End Date Rowdy Oswald MD [address] [place] [address] PCP - GeneralInternal Medicine10/14/23Team MemberRelationshipSpecialtyStart Date End Date Rowdy Oswald MD [address] [place] [address] PCP - GeneralInternal Medicine10/14/23Team MemberRelationshipSpecialtyStart Date End Date Rowdy Oswald MD [address] [place] [address] [facility]23 Team Status: Inactive Member Role Status [...] both lower lobes, unspecified aspiration pneumonia type ([facility]) Desean Abdullahi MD [address] [place] [address] Referral IDStatusReasonStart DateExpiration DateVisits RequestedVisits [id number] SwallowingSpecialtyDiagnoses / ProceduresReferred By ContactReferred To ContactOtolaryngology Diagnoses Dysphagia, unspecified type Ref Prov, [place] [address] [facility] [address] [facility] [place] [address] Referral IDStatusReasonStart DateExpiration DateVisits RequestedVisits [id number] Review Specialty Services Required /[id number] PatientCXR: 03/08/2024FT: 04/21/2024Fluoroscopy: 05/04/2024SpecialtyDiagnoses / ProceduresReferred By ContactReferred To ContactPulmonary Medicine Diagnoses Aspiration pneumonia of both lower lobes due to gastric secretions ([facility]-HCC) Luca Méndez MD [address] [employer] [place] [address] [place] [address] Lois Cid MD [address] [facility] [address] [place] [address] Referral IDStatusReasonStpine valley DateExpiration DateVisits RequestedVisits [id number] Review Specialty Services Required /[id number]-tkSlanoiOowpw DateCommentsSooner Appt 4ReasonCommentsVocal fold paralysisReasonCommentsNew PatientFor Toxic EncephalopathySpecialtyDiagnoses / ProceduresReferred By ContactReferred To ContactNeurology Diagnoses Toxic encephalopathy Luca Méndez MD [address] [employer], [facility] [address] [place] [address] Phone: tel: fax: [facility] [address] [place] [address] Phone: tel: fax: Referral IDStatusReasonStart DateExpiration DateVisits RequestedVisits [id number] Review Specialty Services Required / PRN Active and Recently Administ ered Medications (unrecognized section and content) Medication Order// iopamidol (ISOVUE-370) 76 % injection 75 mL (COMPLETED) 75 mL, IntraVENous, IMG ONCE PRN, 1 dose, Starting on 09/06/23 at 2210, Until 09/06/23 at 2211, Other * 2211 (Given - Provider: Shainka Klein) Medication Order///11/2023 ampicillin-sulbactam (UNASYN) 3,000 mg [...] BE BASED ON THE PRIMARY CLINICAL RECORDS. [facility] [email or web address] provides no warranty or guarantee of the accuracy or completeness of information in this document.
--- NOTE | 2025-06-29 14:24 | PM.WCHP ---
Wound Care H&P: HPI History of Present Illness Narrative: The patient is a 64-year-old gentleman with history of type 2 diabetes and current [facility] resident who presents for routine nail care. He complains of painful calluses beneath first metatarsal heads bilaterally. He also complains of burning and tingling in his feet. He does admit to pain in his calves that worsens with walking. [facility] Medical History (Updated 06/29/25 @ 14:28 by DOMONIQUE Juarez) History of traumatic brain injury ?Z87.820 - Personal history of traumatic brain injury (ICD-10) Delirium due to multiple etiologies ?F05 - Delirium due to known physiological condition (ICD-10) Anxiety about health ?R45.89 - Other symptoms and signs involving emotional state (ICD-10) Hyperglycemia due to type 2 diabetes mellitus ?E11.65 - Type 2 diabetes mellitus with hyperglycemia (ICD-10) Chronic obstructive pulmonary disease with (acute) exacerbation ?J44.1 - Chronic obstructive pulmonary disease with (acute) exacerbation (ICD-10) Hypertension ?I10 - Essential (primary) hypertension (ICD-10) Delirious ?R41.0 - Disorientation, unspecified (ICD-10) Acute respiratory failure ?J96.00 - Acute respiratory failure, unspecified whether with hypoxia or hypercapnia (ICD-10) COPD exacerbation ?J44.1 - Chronic obstructive pulmonary disease with (acute) exacerbation (ICD-10) Acute hyperglycemia ?R73.9 - Hyperglycemia, unspecified (ICD-10) Chronic pain ?G89.29 - Other chronic pain (ICD-10) BPH (benign prostatic hyperplasia) ?N40.0 - Benign prostatic hyperplasia without lower urinary tract symptoms (ICD-10) Dyspnea ?R06.00 - Dyspnea, unspecified (ICD-10) Hyperglycemia ?R73.9 - Hyperglycemia, unspecified (ICD-10) Closed head injury ?S09.90XA - Unspecified injury of head, initial encounter (ICD-10) Medical non-compliance ?Z91.199 - Patient's noncompliance with other medical treatment and regimen due to unspecified reason (ICD-10) COPD (chronic obstructive pulmonary disease) ?J44.9 - Chronic obstructive pulmonary disease, unspecified (ICD-10) Intractable back pain ?M54.9 - Dorsalgia, unspecified (ICD-10) Closed rib fracture ?S22.39XA - Fracture of one rib, unspecified side, initial encounter for closed fracture (ICD-10) Drug abuse ?F19.10 - Other psychoactive substance abuse, uncomplicated (ICD-10) Depression ?F32.A - Depression, unspecified (ICD-10) Failure to thrive Tobacco abuse ?Z72.0 - Tobacco use (ICD-10) Insomnia disorder ?G47.00 - Insomnia, unspecified (ICD-10) Hyperlipidemia associated with type 2 diabetes mellitus ?E11.69 - Type 2 diabetes mellitus with other specified complication (ICD-10) ?E78.5 - Hyperlipidemia, unspecified (ICD-10) Insulin dependent type 2 diabetes mellitus, uncontrolled Chronic obstructive pulmonary disease ?J44.9 - Chronic obstructive pulmonary disease, unspecified (ICD-10) Hypercholesteremia ?E78.00 - Pure hypercholesterolemia, unspecified (ICD-10) Diabetes ?E11.9 - Type 2 diabetes mellitus without complications (ICD-10) Surgical History History of total hip arthroplasty ?Z96.649 - Presence of unspecified artificial hip joint (ICD-10) Family History (Updated 09/02/23 @ 06:43 by Brandi Ba) Mother Family history of CHF (congestive heart failure) Family history of COPD (chronic obstructive pulmonary disease) Family history of diabetes mellitus Family history of hypertension Family history of stroke Father Family history of cancer Family history of diabetes mellitus Family history of hypertension Family history of myocardial infarction Social History (Updated 09/02/23 @ 06:44 by Brandi Ba) Within the past year, how often did you have a drink containing alcohol: 4 or more times a week Within the past year, how many standard drinks containing alcohol did you have on a typical day: 1 or 2 Within the past year, how often did you have six or more drinks on one occasion: never Total score: 0 Score interpretation: Questions 2 and 3 are 0. It can be assumed that the patient's drinking is below the recommended limits. However, please confirm the accuracy of the patient's alcohol intake over the last few months. Smoking status: Heavy tobacco smoker What tobacco products do you use: cigarettes Second hand tobacco smoke exposure: No Non-prescribed substance use: former substance user, crack/cocaine and opiods/painkillers Previous occupational history: disabled Known occupational exposures/hazards: No Highest level of school completed/degree received: 12th grade, no diploma Do you want help with school or training: No Are you now , , , , never or living with a partner: refused to answer In a typical week, how many times do you talk on the telephone with family, friends, or neighbors: never How often do you get together with friends or relatives: never How often do you attend gnosticism or islam services: never Do you belong to any clubs or organizations such as gnosticism groups unions, [employer] or athletic groups, or school groups: no Total score: 0 Score interpretation: A score of less than or equal to 1 indicates the most socially isolated. Little interest or pleasure in doing things: several days Feeling down, depressed, or hopeless: several days Feel stressed/tense/nervous/anxious/difficulty sleeping: decline to answer Life stressors: unknown source of stress Due to disability, difficulty making decisions: No Do you think of yourself as: straight/heterosexual Gender Identity: male Meds Home Medications and Allergies Home Medications ?Medication ?Instructions ?Recorded ?Confirmed ?Type glipizide 10 mg tablet 10 mg PO DAILY 01/31/23 09/02/23 History quetiapine 50 mg tablet 50 mg PO .hs 01/31/23 09/02/23 History tamsulosin 0.4 mg capsule 0.4 mg PO DAILY 01/31/23 09/02/23 History tiotropium bromide 2.5 2 puff inhalation QDAY 01/31/23 09/02/23 History mcg/actuation mist for inhalation (Spiriva Respimat) insulin glargine 100 unit/mL 40 unit (0.4 mL) subcut BID 30 02/09/23 09/02/23 Rx subcutaneous solution (Lantus days #21 mL U-100 Insulin) aspirin 81 mg tablet,delayed 81 mg PO DAILY 02/26/23 09/02/23 History release hydroxyzine HCl 25 mg tablet 25 mg PO BID PRN anxiety 02/26/23 09/02/23 History ipratropium 20 mcg-albuterol 100 1 puff inhalation Q6H PRN sob 02/26/23 09/02/23 History mcg/actuation mist for inhalation (Combivent Respimat) lisinopril 2.5 mg tablet 2.5 mg PO DAILY 03/12/23 09/02/23 History metoprolol tartrate 25 mg tablet 25 mg PO BID 03/12/23 09/02/23 History Allergies Allergy/AdvReac Type Severity Reaction Status Date / Time No Known Allergies AdvReac Mild Verified 04/15/23 07:55 Exam Narrative: Exam Narrative: Derm: Toenails 1 through 10 are thickened, elongated, mycotic, and painful.? No evidence of paronychia.? Skin is diffusely dry, thin, and atrophic.?Calluses noted beneath the 1st MPJs bilaterally with diffusely thick, dry skin on the plantar feet. Vascular: DP and PT pulses are 1/4 bilaterally. Capillary refill is less than 3 seconds to all toes. Digital hair is absent bilaterally. Neuro: Vibratory sensation is absent bilaterally.? Achilles deep tendon reflexes are absent bilaterally.? Protective sensation was tested with a monofilament and is present in 0/5 areas tested on the right and 0/5 areas tested on the left.? Musculoskeletal: No gross deformity.? Strength 5/5 in all planes bilaterally. No paoin with palpation. Assessment and Plan Assessment and Plan (1) Tinea unguium: (2) Skin callus: (3) Type 2 diabetes mellitus with diabetic neuropathy, unspecified: (4) Nail dystrophy: (5) Type 2 diabetes mellitus with other diabetic ophthalmic complication: (6) Unsteady gait when walking: (7) Diminished pulses in lower extremity: Plan The patient is a 64-year-old gentleman with history of type 2 diabetes and neuropathy who presents for routine nail and callus care. Nails were debrided and calluses on each foot were pared without incident. I reviewed SEAN results with him and advised follow up with Vascular surgery. Staff spoke previously with the team at [facility] who reported they will make sure he gets a vascular appt scheduled. Acute Procedures Podiatry Nail Debridement Class B Findings Advanced trophic changes as evidenced by any three of the following: decreased hair growth, nail changes (thickening) and skin texture (thin or shiny) Class C Findings Claudication: Yes Temperature changes: No Edema: No Nail debridement paresthesia (abnormal spontaneous sensations in the feet): Yes Burning: Yes Qualifies If: Qualifiers If:: A patient qualifies for nail debridement if they have: 1 class A finding (Q7) 2 class B findings (Q8) OR 1 class B & 2 class C findings in addition to a primary condition (Q9) Nail Procedure Nail Procedure Time out: Yes Nail procedure: other ((1) Toenail debridement and (2) callus paring 2 calluses) Number of affected nails: 10 Location (toes): left and right Procedure successful: Yes Patient tolerated procedure: well and no complications Additional comments: Toenail 1 through 10 were sharply debrided without incident. Calluses beneath the first metatarsal heads bilaterally were pared using a dermal curette and #15 blade without incident.
== END 2025-06-29 14:11 | disposition home or self-care (01) ==
LOC: WC 14:13
PROVIDERS: PCP Internal Medicine; Visit Provider Physician Assistant
DX: B35.1 Tinea unguium (principal); L84 Corns and callosities; E11.40 Type 2 diabetes mellitus with diabetic neuropathy, unspecified; L60.3 Nail dystrophy; E11.39 Type 2 diabetes mellitus with other diabetic ophthalmic complication; R26.81 Unsteadiness on feet; R09.89 Other specified symptoms and signs involving the circulatory and respiratory systems
CPT/HCPCS: 11056; 11721